=== PATIENT | female | born 1935 | race Caucasian/White ===

== ENCOUNTER 2017-12-27 07:50 | Day surgery (SDC) | payer OTHER, MEDICARE ==
[2017-12-27] MEDS ORDERED: Ringers Lactate 0 ML IV ONE (08:55)
[2017-12-27] MEDS ORDERED: NA CHLORIDE 0.9% 1,000 ML ONE (08:58)
[2017-12-27] MEDS ORDERED: HYDROCORTISONE SUC 100 MG INJ ONE (09:29)
[2017-12-27] MEDS ORDERED: PROPOFOL 200 MG/20 ML VIAL IV ONE (09:45)
[2017-12-27] MEDS ORDERED: LIDOCAINE 1% MPF 5 ML VIAL ONE (09:45)
[2017-12-27 10:06] VITALS: TEMP 98.3
[2017-12-27 10:24] VITALS: BP 98/62; O2SAT 95
--- NOTE | 2017-12-27 11:31 | OP ---
Date of Procedure: 12/27/2017 Surgeon: Gavin Gomez MD Procedure: 1.EGD with biopsy from gastric body and antrum. 2.Administration of anesthesia by Department of Anesthesia. Preoperative Diagnosis: Dysphagia. Premedication: Per Anesthesia. Complexity: Moderate. Tolerance To Sedation: Excellent. Procedure In Detail: Procedure, possible complications, alternatives including, but not limited to t he possibility of bleeding, perforation, tear, infection, sepsis, need for surgery, blood transfusion , hospitalization, etc. explained to the patient. Also anesthesia risk including rare fatalities exp lained. Informed consent was obtained. She was placed in left lateral position. Through the anesth etized oropharyngeal area, scope was passed. Esophageal mucosa in the proximal, mid, and distal aspe ct appeared to be within normal range. EG junction appeared to be normal. No specific stenosis note d in any area. No resistance noted. No changes of eosinophilic esophagitis noted either. No other inflammatory changes noted. In the stomach, mucosa of the fundus and body were normal; however, antral area had moderate degree o f severity, scattered erosions and gastritis, biopsy done. Retroflexion was normal in the fundus. Duodenal bulb, duodenal angle, and duodenal part 2 appeared to be within normal range. Having done the above procedure in a safe, diligent, and satisfactory manner, endoscope and rest of t he endoscopic accessories were removed. The patient's oropharyngeal area cleaned out in a respectful manner. The patient has been sent in excellent condition to postop recovery, from there to the [facility]. Impression: Erosive antral gastritis. No esophageal pathology noted on this endoscopy. Plan: Await biopsy results. We will order barium swallow to rule out motility issues. Complications: None. The patient tolerated the procedure well. Disposition: As above. HAILEY/MODL Voice ID: [id number] Report ID: [id number]
== END 2017-12-27 10:30 | disposition home or self-care (01) ==
LOC: ENDO 07:50
PROVIDERS: ATTEND Internal Medicine Gastroenterology
PROC: 0DB68ZX Excision of Stomach, Via Natural or Artificial Opening Endoscopic, Diagnostic (ICD-10-PCS; principal; 2017-12-27 09:00)
DX: R13.10 Dysphagia, unspecified (principal); K29.60 Other gastritis without bleeding; K21.9 Gastro-esophageal reflux disease without esophagitis; J44.9 Chronic obstructive pulmonary disease, unspecified; I25.10 Atherosclerotic heart disease of native coronary artery without angina pectoris; E11.9 Type 2 diabetes mellitus without complications; I48.91 Unspecified atrial fibrillation; E07.9 Disorder of thyroid, unspecified; Z87.11 Personal history of peptic ulcer disease; Z87.891 Personal history of nicotine dependence; Z95.0 Presence of cardiac pacemaker; Z88.6 Allergy status to analgesic agent; Z88.8 Allergy status to other drugs, medicaments and biological substances
CPT/HCPCS: 43239; 82962; 88305; 88312; J1720; J7030

== ENCOUNTER 2018-02-08 22:26 | Inpatient (IN) | payer OTHER, MEDICARE ==
[2018-02-08] MEDS ORDERED: predniSONE 20 MG TAB ONE (22:37)
[2018-02-08] MEDS ORDERED: ALBUTEROL 2.5 MG/3 ML NEB SOL ONE (22:37)
[2018-02-08] MEDS ORDERED: NA CHLORIDE 0.9% 1,000 ML ONE (22:37)
[2018-02-08] MEDS ORDERED: IPRATROPIUM BROM 0.5MG/2.5ML ONE (22:37)
[2018-02-08] MEDS ORDERED: NITROGLYCERIN 1 GM PKT TD ONE (22:58)
[2018-02-08 23:04] LABS: Arterial Blood Carboxyhemoglob 1.2 % (0-1.5); Blood Gas Oxyhemoglobin 95.1 % (94-97); Blood O2 Saturation 96.9 % (92-98.5)
[2018-02-08 23:08] LABS: Protime INR 1.01
[2018-02-08 23:10] LABS: Absolute Monocytes 0.8 K/uL (0.1-1.3); Absolute Neutrophil 7.8 K/uL (1.8-8.0); Eosinophils % 0.7 % (0-4.4); Lymphocytes % 18.4 % (15.3-44.8); MCH 29.5 pg (27.0-35.0); MPV 10.2 fL (7.6-11.3); Monocytes % 7.2 % (3.3-12.3); RBC Red Blood Cell Count 5.44 M/uL (3.86-4.86)
[2018-02-08 23:15] LABS: Potassium 3.9 mEq/L (3.6-5.0)
[2018-02-08 23:21] LABS: Bilirubin Direct 0.2 mg/dL (0-0.2); Bilirubin Total 0.7 mg/dL (0.3-1.2); Protein, Total 8.1 g/dL (6.0-8.3)
[2018-02-08 23:24] LABS: CKMB Creatine Kinase MB 5.2 ng/ml (0.3-4.0)
[2018-02-08] MEDS ORDERED: ASPIRIN 81 MG CHEWABLE TABLET ONE (23:32)
[2018-02-08] MEDS ORDERED: FUROSEMIDE 20 MG/ 2ML VIAL ONE (23:33)
--- NOTE | 2018-02-08 23:37 | EDPHYS ---
Physician Documentation [facility] Name: Fanny Arceo Age: 82 yrs Sex: Female : 1935 Arrival Date: 02/08/2018 Time: 22:27 Bed 2 Private MD: Sherry Stock R ED Physician Alexi Pearce HPI: 02/08 22:48 This 82 yrs old Female presents to ER via Wheelchair with complaints of snw Breathing Difficulty. 22:48 The patient has shortness of breath at rest. Onset: The symptoms/episode began/occurred snw and became persistent 1 weeks ago. Duration: The symptoms are continuous, and are steadily getting worse. The patient's shortness of breath is aggravated by coughing, supine position. Associated signs and symptoms: Pertinent positives: This patient does not have any pertinent positive signs or symptoms associated with shortness of breath. Severity of symptoms: At their worst the symptoms were severe incapacitating. The patient has experienced similar episodes in the past. The patient has not recently seen a physician, sees Dr. Schmitz, quit smoking in 1989, + COPD. denies fever. States she had an albuterol neb and then a Brovana neb without benefit. Historical: - Allergies: 22:36 Morphine; fc 22:36 Ticlopidine HCl; fc - Home Meds: 22:36 Hyzaar 100-25 mg Oral tab 1 tab once daily [Active]; fc 23:14 Zoloft 50 mg Oral tab 1 tab nightly [Active]; Levemir 100 unit/mL subcutaneous soln 10 fc unit twice a day [Active]; aspirin 325 mg Oral TbEC 1 tab once daily [Active]; Brovana 15 mcg/2 mL inhalation nebu 2 mL 2 times per day [Active]; albuterol sulfate 2.5 mg /3 mL (0.083 %) Nebulizer nebu q 4 hrs prn [Active]; Tricor 145 mg Oral tab 1 tab nightly [Active]; famotidine 40 mg Oral tab 1 tab once daily [Active]; levothyroxine 125 mcg tab 1 tab once daily [Active]; gabapentin 600 mg oral tab 1 tab twice a day [Active]; prednisone 20 mg Oral tab 2 tabs once daily [Active]; Ultram 50 mg Oral tab 1 tab twice a day [Active]; - PMHx: 22:36 COPD; Hypertension; Clot to right arm; fc 22:43 Sleep Apnea; Atrial Fib; CAD; CHF; chronic renal failure; GERD; Diabetes - IDDM; fc Depression; Hypothyroidism; High Cholesterol; Hyperlipidemia; neuropathy; - PSHx: 22:36 Hysterectomy; Cholecystectomy; Appendectomy; pacemaker; Heart stents; fc - Immunization history:: Last tetanus immunization: unknown. - Social history:: Smoking status: Patient/guardian denies using tobacco, the patient reports quitting approximately 19 years ago. ROS: 22:48 Constitutional: Negative for fever, chills, and weight loss, Eyes: Negative for injury, snw pain, redness, and discharge, ENT: Negative for injury, pain, and discharge, Neck: Negative for injury, pain, and swelling, Cardiovascular: Negative for chest pain, palpitations, and edema. 22:48 Abdomen/GI: Negative for abdominal pain, nausea, vomiting, diarrhea, and constipation, Back: Negative for injury and pain, : Negative for injury, bleeding, discharge, and swelling, MS/Extremity: Negative for injury and deformity, Skin: Negative for injury, rash, and discoloration, Neuro: Negative for headache, weakness, numbness, tingling, and seizure. 22:48 Respiratory: Positive for shortness of breath, at rest. Exam: 22:47 Head/Face: Normocephalic, atraumatic. facial flushing Eyes: Pupils equal round and snw reactive to light, extra-ocular motions intact. Lids and lashes normal. Conjunctiva and sclera are non-icteric and not injected. Cornea within normal limits. Periorbital areas with no swelling, redness, or edema. ENT: Nares patent. No nasal discharge, no septal abnormalities noted. Tympanic membranes are normal and external auditory canals are clear. Oropharynx with no redness, swelling, or masses, exudates, or evidence of obstruction, uvula midline. Mucous membranes moist. Neck: Trachea midline, no thyromegaly or masses palpated, and no cervical lymphadenopathy. Supple, full range of motion without nuchal rigidity, or vertebral point tenderness. No Meningismus. Chest/axilla: Normal chest wall appearance and motion. Nontender with no deformity. No lesions are appreciated. Cardiovascular: Regular rate and rhythm with a normal S1 and S2. No gallops, murmurs, or rubs. Normal PMI, no JVD. No pulse deficits. 22:47 Abdomen/GI: Soft, non-tender, with normal bowel sounds. No distension or tympany. No guarding or rebound. No evidence of tenderness throughout. Back: No spinal tenderness. No costovertebral tenderness. Full range of motion. Skin: Warm, dry with normal turgor. Cyanotic color with no rashes, no lesions, and no evidence of cellulitis. MS/ Extremity: Pulses equal, no cyanosis. Neurovascular intact. Full, normal range of motion. Neuro: Awake and alert, GCS 15, oriented to person, place, time, and situation. Cranial nerves II-XII grossly intact. Motor strength 5/5 in all extremities. Sensory grossly intact. Cerebellar exam normal. Normal gait. 22:47 Constitutional: The patient appears awake, anxious, in obvious distress, moderately distressed, restless, uncomfortable. 22:47 Respiratory: moderate respiratory distress is noted, Respirations: prolonged exhalation, shallow respirations, tachypnea, Tripoding. Vital Signs: 22:25 BP 195 / 107; Pulse 66; Resp 22; Temp 97.5(O); Pulse Ox 87% on R/A; Weight 85.73 kg fc (R); Height 5 ft. 6 in. (167.64 cm) (R); Pain 0/10; 22:27 Pulse Ox 100% on 2 lpm NC; fc 23:43 BP 183 / 69; Pulse 74; Resp 20; Pulse Ox 96% on 2 lpm NC; Pain 0/10; ao 02/09 00:50 BP 160 / 74; Pulse 73; Resp 18; Pulse Ox 95% on R/A; Pain 0/10; ao 02/08 22:25 Body Mass Index 30.51 (85.73 kg, 167.64 cm) fc MDM: 02/08 22:47 Patient medically screened. snw 23:35 Data reviewed: vital signs, nurses notes. Counseling: I had a detailed discussion with snw the patient and/or guardian regarding: the historical points, exam findings, and any diagnostic results supporting the discharge/admit diagnosis, the presence of at least one elevated blood pressure reading (>120/80) during this emergency department visit, lab results, radiology results, the need for further work-up and treatment in the hospital. Physician consultation: Roxy Billingsley MD was called at 23:35, was contacted at 23:36, regarding admission, to the telemetry unit. and will see patient in ED. 02/08 22:34 Order name: Basic Metabolic Panel; Complete Time: 23:27 snw 02/08 22:34 Order name: BNP; Complete Time: 23:27 snw 02/08 22:34 Order name: CBC with Diff; Complete Time: 23:23 w 02/08 22:34 Order name: Ckmb; Complete Time: 23:27 w 02/08 22:34 Order name: CPK; Complete Time: 23:27 w 02/08 22:34 Order name: LFT's; Complete Time: 23:27 w 02/08 22:34 Order name: Magnesium; Complete Time: 23:27 w 02/08 22:34 Order name: PT-INR; Complete Time: 23:23 w 02/08 22:34 Order name: Ptt, Activated; Complete Time: 23:23 w 02/08 22:34 Order name: Troponin (emerg Dept Use Only); Complete Time: 23:23 w 02/08 22:34 Order name: XRAY Chest (1 view) 02/08 22:34 Order name: ABG; Complete Time: 23:11 w 02/08 22:34 Order name: EKG; Complete Time: 22:35 w 02/08 22:34 Order name: Cardiac monitoring; Complete Time: 22:42 w 02/08 22:34 Order name: EKG - Nurse/Tech; Complete Time: 22:42 w 02/08 22:34 Order name: IV Saline Lock; Complete Time: 22:42 w 02/08 22:34 Order name: Labs collected and sent; Complete Time: 22:42 w 02/08 22:34 Order name: O2 Per Protocol; Complete Time: 22:42 w 02/08 22:34 Order name: O2 Sat Monitoring; Complete Time: 22:42 snw Administered Medications: 22:37 Drug: Albuterol 2.5 mg Route: Inhalation; ao 22:41 Drug: AtroVENT Aerosol 0.5 mg Route: Inhalation; ao 22:47 Drug: predniSONE 40 mg Route: PO; ao 23:00 Drug: NS 0.9% 1000 ml Route: IV; Rate: 50 ml/hr; Site: left antecubital; ao 23:07 Drug: Nitro-Bid Ointment 2 % 1 inches Route: Transdermal; Site: anterior chest wall; ao 23:38 Drug: Aspirin Chewable Tablet 324 mg Route: PO; ao 23:38 Drug: Lasix 20 mg Route: IVP; Site: left antecubital; ao Disposition: 02/08/18 23:37 Hospitalization ordered by Roxy Billingsley for Inpatient Admission. Preliminary diagnosis are Unspecified systolic (congestive) heart failure, Dyspnea. - Bed requested for Telemetry/MedSurg (Inpatient). - Status is Inpatient Admission. ao - Condition is Stable. - Problem is an acute exacerbation. - Symptoms have worsened. UTI on Admission? No Addendum: 02/12/2018 19:46 Co-signature as Attending Physician, Alexi Pearce MD. g s Signatures: Dispatcher [employer] EDNay Sinha RN RN kl Therrien, Shelly, SEO INTERN-C SEO INTERN-Fanny Murguia RN RN fc Ortiz, Alex, RN RN ao Starr, Gregory, MD MD gs Corrections: (The following items were deleted from the chart) 02/09 00:35 02/08 23:37 Hospitalization Ordered by Roxy Billingsley MD for Inpatient Admission. kl Preliminary diagnosis is Unspecified systolic (congestive) heart failure; Dyspnea. Bed requested for Telemetry/MedSurg (Inpatient). Status is Inpatient Admission. Condition is Stable. Problem is an acute exacerbation. Symptoms have worsened. UTI on Admission? No. snw 02/09 01:34 00:35 02/08/2018 23:37 Hospitalization Ordered by Roxy Billingsley MD for Inpatient ao Admission. Preliminary diagnosis is Unspecified systolic (congestive) heart failure; Dyspnea. Bed requested for Telemetry/MedSurg (Inpatient). Status is Inpatient Admission. Condition is Stable. Problem is an acute exacerbation. Symptoms have worsened. UTI on Admission? No. kl
--- NOTE | 2018-02-08 23:37 | ER ---
Nurse's Notes [facility] Name: Fanny Arceo Age: 82 yrs Sex: Female : 1935 Arrival Date: 02/08/2018 Time: 22:27 Bed 2 Private MD: Sherry Stock R Diagnosis: Unspecified systolic (congestive) heart failure;Dyspnea Presentation: 02/08 22:25 Presenting complaint: Patient states: that she has been having issues with shortness of fc breathe x 1 week that got worse today. Also has cough but no fever. Transition of care: patient was not received from another setting of care. Onset of symptoms was February 02, 2018. Initial Sepsis Screen: Does the patient meet any 2 criteria? Yes Does the patient have a suspected source of infection? Yes: Productive cough/pneumonia. Care prior to arrival: Medication(s) given: Brovona and Albuterol neb treatments. 22:25 Method Of Arrival: Wheelchair fc 22:25 Acuity: JESSE 2 fc Triage Assessment: 22:46 General: Behavior is anxious. Respiratory: Reports shortness of breath Onset: The ao symptoms/episode began/occurred at an unknown time. the patient has severe shortness of breath. Historical: - Allergies: 22:36 Morphine; fc 22:36 Ticlopidine HCl; fc - Home Meds: 22:36 Hyzaar 100-25 mg Oral tab 1 tab once daily [Active]; fc 23:14 Zoloft 50 mg Oral tab 1 tab nightly [Active]; Levemir 100 unit/mL subcutaneous soln 10 fc unit twice a day [Active]; aspirin 325 mg Oral TbEC 1 tab once daily [Active]; Brovana 15 mcg/2 mL inhalation nebu 2 mL 2 times per day [Active]; albuterol sulfate 2.5 mg /3 mL (0.083 %) Nebulizer nebu q 4 hrs prn [Active]; Tricor 145 mg Oral tab 1 tab nightly [Active]; famotidine 40 mg Oral tab 1 tab once daily [Active]; levothyroxine 125 mcg tab 1 tab once daily [Active]; gabapentin 600 mg oral tab 1 tab twice a day [Active]; prednisone 20 mg Oral tab 2 tabs once daily [Active]; Ultram 50 mg Oral tab 1 tab twice a day [Active]; - PMHx: 22:36 COPD; Hypertension; Clot to right arm; fc 22:43 Sleep Apnea; Atrial Fib; CAD; CHF; chronic renal failure; GERD; Diabetes - IDDM; fc Depression; Hypothyroidism; High Cholesterol; Hyperlipidemia; neuropathy; - PSHx: 22:36 Hysterectomy; Cholecystectomy; Appendectomy; pacemaker; Heart stents; fc - Immunization history:: Last tetanus immunization: unknown. - Social history:: Smoking status: Patient/guardian denies using tobacco, the patient reports quitting approximately 19 years ago. Screenin:37 Abuse screen: Denies threats or abuse. Nutritional screening: No deficits noted. fc Tuberculosis screening: No symptoms or risk factors identified. 22:46 Fall Risk None identified. ao Assessment: 22:43 General: Appears distressed. Pain: Complains of pain in chest. Neuro: Level of ao Consciousness is awake, alert, obeys commands, Oriented to person, place, time, situation, Appropriate for age Moves all extremities. Gait is steady, Speech is normal, Facial symmetry appears normal. Cardiovascular: Heart tones S1 S2 Rhythm is irregular. Respiratory: Airway is patent Respiratory effort is labored, Respiratory pattern is hyperventilation Breath sounds with crackles bilaterally. GI: Abdomen is obese. : No signs and/or symptoms were reported regarding the genitourinary system. EENT: No signs and/or symptoms were reported regarding the EENT system. Derm: Skin is intact, Skin is pink, warm \T\ dry. Skin temperature is warm. Musculoskeletal: No signs and/or symptoms reported regarding the musculoskeletal system. Range of motion: limited in all extremities. 23:08 Reassessment: BP is high and MARY Cantu was notified who ordered a nitro paste. ao 23:43 Reassessment: Patient appears in no apparent distress at this time. Patient and/or ao family updated on plan of care and expected duration. Pain level reassessed. Patient is alert, oriented x 3, equal unlabored respirations, skin warm/dry/pink. Patient o be admitted to the hospital. MARY Cantu at bedside. Patient agree with POC. 02/09 00:56 Reassessment: Patient appears in no apparent distress at this time. Patient and/or ao family updated on plan of care and expected duration. Pain level reassessed. Patient is alert, oriented x 3, equal unlabored respirations, skin warm/dry/pink. Patient to be taken to her room after called report. Vital Signs: 02/08 22:25 BP 195 / 107; Pulse 66; Resp 22; Temp 97.5(O); Pulse Ox 87% on R/A; Weight 85.73 kg fc (R); Height 5 ft. 6 in. (167.64 cm) (R); Pain 0/10; 22:27 Pulse Ox 100% on 2 lpm NC; fc 23:43 BP 183 / 69; Pulse 74; Resp 20; Pulse Ox 96% on 2 lpm NC; Pain 0/10; ao 02/09 00:50 BP 160 / 74; Pulse 73; Resp 18; Pulse Ox 95% on R/A; Pain 0/10; ao 02/08 22:25 Body Mass Index 30.51 (85.73 kg, 167.64 cm) ED Course: 02/08 22:25 Arm band placed on Patient placed in an exam room, on a stretcher, on oxygen, on fc cardiac specialist, on pulse oximetry. 22:25 Patient has correct armband on for positive identification. Fall risk band placed. fc Placed in gown. Bed in low position. Call light in reach. Side rails up X 1. float tender on. Pulse ox on. NIBP on. 22:27 Patient arrived in ED. do 22:27 Sherry Stock MD is Private Physician. do 22:27 Oxygen administration via nasal cannula \T\ 2L/min. fc 22:30 Inserted saline lock: 20 gauge in left antecubital area, using aseptic technique. fc ,using aseptic technique. per Bon CONNOR Blood collected. 22:32 Alondra Blakely FNP-C is PHCP. snw 22:32 Alexi Pearce MD is Attending Physician. snw 22:35 Triage completed. fc 22:41 Bon Soni, RN is Primary Nurse. ao 22:45 X-ray completed. Portable x-ray completed in exam room. Patient tolerated procedure bb2 well. 22:47 XRAY Chest (1 view) In Process Unspecified. EDMS 23:36 Roxy Billingsley MD is Hospitalizing Provider. snw 02/09 01:33 No provider procedures requiring assistance completed. Patient admitted, IV remains in ao place. Administered Medications: 02/08 22:37 Drug: Albuterol 2.5 mg Route: Inhalation; ao 22:41 Drug: AtroVENT Aerosol 0.5 mg Route: Inhalation; ao 22:47 Drug: predniSONE 40 mg Route: PO; ao 23:00 Drug: NS 0.9% 1000 ml Route: IV; Rate: 50 ml/hr; Site: left antecubital; ao 23:07 Drug: Nitro-Bid Ointment 2 % 1 inches Route: Transdermal; Site: anterior chest wall; ao 23:38 Drug: Aspirin Chewable Tablet 324 mg Route: PO; ao 23:38 Drug: Lasix 20 mg Route: IVP; Site: left antecubital; ao Outcome: 23:37 Decision to Hospitalize by Provider. snw 02/09 01:33 Admitted to Tele accompanied by tech, room 424, with chart, Report called to NIKOLAS Ramirez ao Condition: stable Instructed on the need for admit. 01:34 Patient left the ED. ao Signatures: Dispatcher [employer] EDMS Alondra Blakely, BLAIR-C ESTIMATION MANAGER-Fanny Murguia RN RN Bon Sesay RN RN ao Charmaine Hickman Brittany bb2 Corrections: (The following items were deleted from the chart) 02/08 22:44 22:25 BP 195 / 107; Pulse 66bpm; Resp 22bpm; Pulse Ox 87% RA; 85.73 kg Reported; Height fc 5 ft. 6 in. Reported; BMI: 30.5; Pain 0/10; fc
[2018-02-09] MEDS ORDERED: HYDRALAZINE HCL 20 MG/ML VIAL IV PRN (00:34)
--- NOTE | 2018-02-09 00:40 | P.HP ---
Certification for Inpatient Patient admitted to: Inpatient With expected LOS: >2 Midnights Practitioner: I am a practitioner with admitting privileges, knowledge of patient current condition, hospital course, and medical plan of care. Services: Services provided to patient in accordance with Admission requirements found in Title 42 Section 412.3 of the Code of Federal Regulations Patient History Date of Service: 02/08/18 Reason for admission: pulmonary edema History of Present Illness: Ms Arceo is an 82 years old woman with multiple medical problems including, DM II , COPD, Chronic diastolic chf, CAD, pacemaker placment, on plan to place LE stent due to PVD, who start about 1 week ago with progressive SOB. She has had dry cough as well. No history of fever or chills, no chest pain either. Tonight , she went to sleep, and her SOB got even worse. At arrival to ED her BP was 195 /107, O2 sat 87% on RA. Lab work remarkable for normal WBC count, elevated trop I 0.17. CXR with bilateral venous congestion. EKG with pacemaker rhythm. Allergies morphine Allergy (Verified 10/08/17 22:37) Hives ticlopidine HCl [From Ticlid] Adverse Reaction (Verified 10/08/17 22:37) Hives/Rash Home Medications: Albuterol Sulfate [Albuterol Sulfate 0.083% Neb Soln] 1 aer IH Q4H PRN 10/08/17 Arformoterol Tartrate [Brovana] 1 aer IH BID 10/08/17 Famotidine 40 mg PO DAILY 10/08/17 Fenofibrate [Tricor*] 145 mg PO BEDTIME 10/08/17 Gabapentin [Neurontin] 600 mg PO BID 10/08/17 Insulin Detemir [Levemir] 10 units SQ BID 10/08/17 Levothyroxine [Synthroid*] 125 mcg PO DAILY 10/08/17 Losartan/Hydrochlorothiazide [Losartan-Hctz 100-25 mg Tab] 1 tab PO DAILY Tramadol HCl [Ultram] 50 mg PO TID 10/08/17 Aspirin [Aspirin EC 325 MG] 325 mg PO DAILY 10/18/17 Prednisone [Prednisone*] 10 mg PO [id number] 10/18/17 Levofloxacin [Levaquin] 250 mg PO DAILY #7 tab 10/20/17 Mupirocin Oint [Bactroban 2% Ointment] 8 appl TOP DAILY #1 tube 10/20/17 - Past Medical/Surgical History Diabetic: Yes -: HTN -: Hyperlipidemia -: Diabetes mellitus type 2 -: COPD -: History of DVT/PE -: History of atrial fibrillation requiring pacemaker -: GERD -: Depression -: Hypothyroidism -: Arthritis -: History of esophageal stricture -: Chronic renal disease -: Cholecystectomy -: Appendectomy -: Hysterectomy -: PANCREATIC SX D/T MASS, no cancer noted -: EYE SX Psychosocial/ Personal History: The patient is a . She has 4 children. - Family History Brother -: Seizures Mother -: Heart disease Father -: Hypertension - Social History Smoking Status: Former smoker Alcohol use: No CD- Drugs: No Caffeine use: Yes Place of Residence: Home Review of Systems 10-point ROS is otherwise unremarkable Physical Examination - Physical Exam General: Alert, In no apparent distress HEENT: Atraumatic, PERRLA, Mucous membr. moist/pink, EOMI, Sclerae nonicteric Neck: Supple, 2+ carotid pulse no bruit, No LAD, Without JVD or thyroid abnormality Respiratory: Diminished, Crackles/rales (bibasilar rales) Cardiovascular: Regular rate/rhythm, Normal S1 S2 Gastrointestinal: Normal bowel sounds, No tenderness Musculoskeletal: No tenderness Integumentary: No rashes Neurological: Normal speech, Normal strength at 5/5 x4 extr, Normal tone, Normal affect Lymphatics: No axilla or inguinal lymphadenopathy - Studies Laboratory Data (last 24 hrs) 02/08/18 22:39: PT 11.9, INR 1.01, APTT 25.0 02/08/18 22:39: WBC 10.8, Hgb 16.1 H, Hct 50.0 H, Plt Count 262 02/08/18 22:39: B-Natriuretic Peptide 875 H 02/08/18 22:39: Sodium 143, Potassium 3.9, BUN 30 H, Creatinine 1.11 H, Glucose 176 H, Magnesium 2.0, Total Bilirubin 0.7, AST 35, ALT 27, Alkaline Phosphatase 45 Assessment and Plan - Problems (Diagnosis) (1) Acute on chronic diastolic CHF (congestive heart failure) Current Visit: Yes Status: Acute (2) Chronic renal disease Onset Date: 10/19/17 Current Visit: No Status: Acute Qualifiers: Chronic kidney disease stage: stage 3 (moderate) Qualified Code(s): N18.3 - Chronic kidney disease, stage 3 (moderate) (3) Type 2 diabetes mellitus without complications Onset Date: 10/11/17 Current Visit: No Status: Acute Qualifiers: Diabetes mellitus senior living insulin use: with senior living use Qualified Code( s): E11.9 - Type 2 diabetes mellitus without complications; 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 transplanted heart: [place] heart Associated angina: without angina Qualified Code(s): I25.10 - Atherosclerotic heart disease of [place] coronary artery without angina pectoris (5) Pulmonary edema Current Visit: Yes Status: Acute Qualifiers: Chronicity: acute Qualified Code(s): J81.0 - Acute pulmonary edema - Plan The patient will be admitted to the hospital due to pulmonary edema. Her blood pressure at arrival was 197/105. After IV Lasix and nitropaste, her blood pressure decreased and her symptoms improved. She has a recent ECHO done in showing diastolic dysfunction. Will continue with diuretics treatment, resume her blood pressure medication. Consult Dr Jin. - Advance Directives Does patient have a Living Will: Yes Does patient have a Durable POA for Healthcare: Yes - Code Status/Comfort Care Code Status Assessed: Yes Code Status: Full Code
[2018-02-09] MEDS ORDERED: FUROSEMIDE 40 MG/4 ML VIAL IV ONE (01:54)
[2018-02-09] MEDS ORDERED: ONDANSETRON 4 MG/2 ML VIAL IV PRN (01:54)
[2018-02-09 03:34] LABS: Urine Appearance CLEAR; Urine Bilirubin NEGATIVE (NEG); Urine Blood NEGATIVE (NEG); Urine Color YELLOW; Urine Glucose NEGATIVE (NEG); Urine Protein NEGATIVE (NEG); Urine Urobilinogen 0.2 mg/dL (0.2-1.0)
[2018-02-09 03:35] LABS: Urine Microscopic Reflex NO UMIC
[2018-02-09] MEDS: ACETAMINOPHEN 500 MG TAB PO PRN (07:25)
[2018-02-09] MEDS: INSULIN -REGULAR HUMAN 50 UNIT/0.5 ML ML SQ SCH ×4 (07:30→21:00)
--- NOTE | 2018-02-09 07:42 | EKG ---
Test Date: 2018-02-08 Test Time: 22:35:10 Lead Mobile Developer: MEASUREMENT RESULTS: Intervals: Rate: 75 IA: 384 QRSD: 122 QT: 386 QTc: 431 Cameron: P: IA: 384 QRS: -81 T: 93 INTERPRETIVE STATEMENTS: Rhythm consistent with VVI pacing with frequent premature ventricular complexes Underlying atrial rhythm is fibrillation Abnormal ECG Compared to ECG 10/18/2017 15:16:51 no significant change from previous ECG Electronically Signed On 02-09-18 07:42:11 CDT by Emir Armstrong
[2018-02-09] MEDS ORDERED: ENOXAPARIN 40 MG/0.4 ML SQ SCH (09:00)
--- NOTE | 2018-02-09 09:42 | RAD REPORT ---
EXAM DESCRIPTION: [facility] Single View02/08/2018 10:49 pm CLINICAL HISTORY: sob COMPARISON: October 2017 FINDINGS: Mild bilateral interstitial opacities are present within the lungs. The heart is mildly e nlarged. Pacemaker leads are in place. IMPRESSION: Mild interstitial pulmonary edema is suspected
[2018-02-09] MEDS ORDERED: ALBUTEROL 2.5 MG/3 ML NEB SOL IH PRN (09:53)
[2018-02-09] MEDS: TRAMADOL HCL 50 MG TAB PO SCH ×4 (10:56→21:47)
[2018-02-09] MEDS: LOSARTAN/HCTZ 50-12.5 PO SCH (11:26)
[2018-02-09] MEDS: FUROSEMIDE 40 MG/4 ML VIAL IV SCH ×2 (11:26→17:39)
[2018-02-09] MEDS: SERTRALINE HCL 50 MG TAB PO SCH (11:27)
[2018-02-09] MEDS: FAMOTIDINE 20 MG TAB PO SCH (11:27)
[2018-02-09] MEDS: GABAPENTIN 300 MG CAP PO SCH ×2 (11:27→21:47)
[2018-02-09] MEDS: ASPIRIN 325 MG TAB PO SCH (11:28)
[2018-02-09] MEDS: predniSONE 10 MG TAB PO SCH (11:28)
[2018-02-09] MEDS ORDERED: POTASSIUM CL SA 10 MEQ TAB PO ONE (12:00)
[2018-02-09] MEDS: ARFORMOTEROL TARTRATE 15 MCG/2 ML VIAL.NEB IH SCH ×2 (12:01→20:00)
[2018-02-09] MEDS: INSULIN DETEMIR 100 UNIT/1 ML INSULIN SQ SCH ×2 (12:10→21:47)
--- NOTE | 2018-02-09 13:56 | CON ---
Chief Complaint: Shortness of breath. History Of Present Illness: For several weeks, Mrs. Arceo has been getting progressively more short o f breath, minimal walking makes her become extremely dyspneic. There is some chest pain too. There does not seem to be much orthopnea. No paroxysmal nocturnal dyspnea. She was not really aware that she was having pain until she thought about it when I asked her, and then she seemed to think sometim es when she is short of breath, there is also tightness or pressure. She has had coronary heart dise ase in the past. She has had stents in the LAD and right coronary artery. Her last cardiac cath was about 2 years ago and the stents were patent. She has heart failure with normal ejection fraction a nd severe COPD. She was a heavy cigarette smoker, but quit in about the year 1999. She has a pacema ker and is in chronic atrial fibrillation without anticoagulation. The pacemaker is biventricular pa cing, but VVI only, there is no atrial lead. Medications: Outpatient medications have been fenofibrate, Proventil, losartan, hydrochlorothiazide, levothyroxine, famotidine, insulin, gabapentin, tramadol, albuterol, prednisone, sertraline, and asp irin. She is not a candidate for chronic anticoagulation according to Dr. Jin, who sees her, but I lupe ot really find exactly what problem she had taking anticoagulants in the past. No history of stroke. Physical Examination: General: She is 5 feet 6 inches, 191 pounds. HEENT: Normal, although there is mild acrocyanosis. Abdomen: Soft. Lungs: Reveal basilar crackles. Heart: Irregularly irregular. There seems to be a systolic murmur. It is 1 to 2/6 holosystolic. Abdomen: Soft. Extremities: 2 to 3+ edema. There are cyanosis, diminished distal pulses. Laboratory Data: The EKG reveals mostly paced but there is some [place] complexes as well. On the na tive complexes, they appear to be PVCs rather than narrow complex conducted or she may have a very wi de IVCD that is nonsignificant, but I think the PVCs is uninterpretable for ischemia or infarction. Her cardiac enzymes are abnormal with the highest troponin at 0.28. She has a creatinine of 1.11, bl ood sugar 176. Impression: Mrs. Arceo needs to try to improve lung function, get some diuresis, and then undergo a c ardiac cath. I suspect she will need another stent into her heart. Thank you very much for your kind referral of Mrs Arceo. I will follow her with you. BRNADON Voice ID: [id number] Report ID: [id number]
--- NOTE | 2018-02-09 15:14 | PN ---
Date of Progress Note: 02/09/2018 Subjective: The patient seen and examined. Chart reviewed, and case discussed with RN and Dr. Torri guerrero. The patient states her chest pain has resolved, but still has shortness of breath. Review of Systems: Negative except as above. Medications: Reviewed. Physical Examination: Vital Signs: Temperature 97.2, heart rate 68, blood pressure 197/87, respirations 18, O2 of 96% on 2 L via nasal cannula. General: Awake, alert, oriented x3. Elderly female, obese, BMI 31. CV: S1, S2. Regular rate and rhythm. Peripheral pulses weak bilaterally. Respiratory: Diminished breath sounds. Some crackles heard. No wheezing. No stridor. No use of a ccessory muscles. Gastrointestinal: Abdomen is soft, nontender, nondistended. Positive bowel sounds. No guarding or rigidity. Extremities: No clubbing, cyanosis, 2+ edema. Neurologic: Nonfocal. Laboratory Data: Potassium 3.6, glucose 164. Troponin 0.17, 0.28, 0.36. BNP 875. Assessment And Plan: An 82-year-old female with: 1.Kcabd-rq-qbpzrrd diastolic heart failure: We will continue with diuresis. Continue congestive he art failure guidelines. Appreciate Dr. Armstrong' input. 2.Elevated troponin level: Jnc-SP-krbnawlcg myocardial infarction. The patient going for cardiac c atheterization on Sunday. We will switch to therapeutic Lovenox 1 mg/kg renally dosed. 3.Chronic kidney disease, stage 3: We will monitor creatinine. Currently around baseline. 4.Pulmonary edema: Continue Lasix secondary to congestive heart failure. 5.Coronary artery disease: [place] artery and [place] heart with angina, status post stent x2. 6.Type 2 diabetes mellitus, with hyperglycemia, with long-term use of insulin: We will continue sli ding scale. 7.History of deep vein thrombosis, pulmonary embolism. 8.History of atrial fibrillation, requiring pacemaker. 9.Gastroesophageal reflux disease without esophagitis. Proton-pump inhibitor. 10.Major depressive disorder. 11.Hypothyroidism: We will continue levothyroxine. 12.Generalized osteoarthritis. 13.History of esophageal stricture. Plan: Anticipate cardiac catheterization on Sunday. SA/MODL Voice ID: [id number] Report ID: [id number]
--- NOTE | 2018-02-09 17:30 | RAD REPORT ---
EXAM DESCRIPTION: RAD - Tib Fib Right - 02/09/2018 5:11 pm CLINICAL HISTORY: Right leg pain FINDINGS: No fracture is seen. No bony lesion is noted
--- NOTE | 2018-02-09 17:32 | RAD REPORT ---
EXAM DESCRIPTION: RAD - Foot Right 2 View - 02/09/2018 5:11 pm CLINICAL HISTORY: Right foot pain FINDINGS: Large calcaneal spurs are present. No fracture or dislocation is seen
[2018-02-09] MEDS ORDERED: CYCLOBENZAPRINE 10 MG TAB PO ONE (18:00)
--- NOTE | 2018-02-09 20:11 | RAD REPORT ---
EXAM DESCRIPTION: [facility]02/09/2018 7:36 pm CLINICAL HISTORY: Right leg pain and swelling. COMPARISON: October 2017 FINDINGS: Right common femoral, superficial femoral, popliteal and right posterior tibial veins are compressible and demonstrate augmentation. Doppler demonstrates good flow. IMPRESSION: No evidence of deep venous thrombosis involving the right lower extremity.
[2018-02-09] MEDS ORDERED: HOME MED 1 EA UNK (Gabapentin [Neurontin] 600 MG) PO SCH (21:00)
[2018-02-09] MEDS ORDERED: GABAPENTIN 300 MG CAP PO SCH (21:00)
[2018-02-09] MEDS ORDERED: HOME MED 1 EA UNK (Insulin Detemir [Levemir] 10 UNITS) SQ SCH (21:00)
[2018-02-09] MEDS: FENOFIBRATE 160 MG TAB PO SCH (21:46)
[2018-02-09] MEDS: ENOXAPARIN 100 MG/ML SYR SQ SCH (21:46)
[2018-02-10] MEDS: predniSONE 10 MG TAB PO SCH (05:18)
[2018-02-10] MEDS: LEVOTHYROXINE SOD 0.125 MG TAB PO SCH (05:18)
[2018-02-10 05:24] LABS: Absolute Lymphocytes (CBC) 2.5 K/uL (0.7-4.9); Absolute Monocytes 0.9 K/uL (0.1-1.3); Absolute Neutrophil 7.5 K/uL (1.8-8.0); Basophils % 0.7 % (0-1.3); Eosinophils % 1.6 % (0-4.4); Hematocrit 49.2 % (36.0-45.0); Lymphocytes % 22.3 % (15.3-44.8); MCH 29.2 pg (27.0-35.0); MCV 91.1 fL (80-100); MPV 10.1 fL (7.6-11.3); Monocytes % 8.2 % (3.3-12.3)
[2018-02-10] MEDS: ACETAMINOPHEN 500 MG TAB PO PRN (05:28)
[2018-02-10 05:56] LABS: Potassium 3.3 mEq/L (3.6-5.0)
[2018-02-10] MEDS ORDERED: predniSONE 10 MG TAB PO SCH (06:00)
[2018-02-10] MEDS ORDERED: POTASSIUM 25 MEQ EFFERV TAB PO ONE ×2 (06:30→15:00)
[2018-02-10] MEDS: INSULIN -REGULAR HUMAN 50 UNIT/0.5 ML ML SQ SCH ×4 (07:30→21:00)
[2018-02-10] MEDS ORDERED: HOME MED 1 EA UNK (Losartan/Hydrochlorothiazide [Losartan-Hctz 100-25 Mg Tab] 1 TAB) PO SCH (09:00)
[2018-02-10] MEDS ORDERED: LEVOTHYROXINE SOD 0.125 MG TAB PO SCH (09:00)
[2018-02-10] MEDS ORDERED: HOME MED 1 EA UNK (Famotidine [Famotidine] 40 MG) PO SCH (09:00)
[2018-02-10] MEDS: ARFORMOTEROL TARTRATE 15 MCG/2 ML VIAL.NEB IH SCH ×2 (09:03→19:44)
[2018-02-10] MEDS: INSULIN DETEMIR 100 UNIT/1 ML INSULIN SQ SCH ×2 (09:07→21:25)
[2018-02-10] MEDS: FAMOTIDINE 20 MG TAB PO SCH (09:08)
[2018-02-10] MEDS: LOSARTAN/HCTZ 50-12.5 PO SCH (09:08)
[2018-02-10] MEDS: GABAPENTIN 300 MG CAP PO SCH ×2 (09:09→21:22)
[2018-02-10] MEDS: FUROSEMIDE 40 MG/4 ML VIAL IV SCH (09:09)
[2018-02-10] MEDS: ASPIRIN 325 MG TAB PO SCH (09:09)
[2018-02-10] MEDS: TRAMADOL HCL 50 MG TAB PO SCH ×3 (09:09→21:22)
[2018-02-10] MEDS: SERTRALINE HCL 50 MG TAB PO SCH (09:10)
[2018-02-10] MEDS: ENOXAPARIN 100 MG/ML SYR SQ SCH (09:10)
[2018-02-10] MEDS: ACETYLCYST 20% 800 MG/4 ML VIAL PO SCH ×2 (12:34→21:00)
[2018-02-10] MEDS: CYCLOBENZAPRINE 10 MG TAB PO SCH ×2 (13:27→21:22)
--- NOTE | 2018-02-10 14:37 | PN ---
Date of Progress Note: 02/10/2018 History: The patient seen and examined, chart reviewed, and case discussed with RN. The patient states she feels better. Did have some lower extremity pain, which was acute. She felt that this was muscle pain. Review of Systems: Negative except as above. Medications: Reviewed. Physical Examination: Vital Signs: Temperature 97.9, heart rate 72, blood pressure 153/84, respirations 18, O2 99% on 2 L via nasal cannula. General: Awake, alert, oriented x3. Elderly female is somewhat ill-appearing, obese, BMI of 30. CV: S1, S2. Peripheral pulses present bilaterally. Respiratory: Diminished breath sounds. Some crackles. No wheezing. Gastrointestinal: Abdomen soft, nontender, nondistended. Positive bowel sounds. Extremities: No clubbing, cyanosis. Mild pedal edema. Neurologic: Nonfocal. Laboratory Data: Sodium 142, potassium 3.3, chloride 97, CO2 36, BUN 34, creatinine 1.31, glucose 66, calcium 10.1. WBC 11.2, H and H 15.8, 49.2, platelets 245. Assessment: An 82-year-old female with: 1. Acute on chronic diastolic heart failure. We will continue with diuresis. Monitor I's and O's. Continue congestive heart failure guidelines. Cardiology on board. 2. Elevated troponin level. Cardiac catheterization scheduled for Sunday. Continue chest pain guidelines and Lovenox. 3. Chronic kidney disease, stage 3. We will continue to monitor creatinine, currently at baseline. 4. Pulmonary edema secondary to congestive heart failure, improving. 5. Coronary artery disease, [place] artery and [place] heart, with angina, status post stent x2. 6. Diabetes mellitus type 2 with hyperglycemia with long-term use of insulin. 7. History of deep vein thrombosis, pulmonary embolism. Repeat sonogram shows no deep vein thrombosis. 8. History of atrial fibrillation status post pacemaker. 9. Major depressive disorder, SSRI. 10. Hypothyroidism, on levothyroxine. 11. Gastroesophageal reflux disease without esophagitis, PPI. 12. Generalized osteoarthritis. 13. History of esophageal stricture. Plan: As above. /MODChaka Voice ID: [id number] Report ID: [id number] [facility]
[2018-02-10] MEDS ORDERED: D50W 25 GM/50 ML SYRINGE IV PRN (17:05)
[2018-02-10] MEDS ORDERED: GLUCAGON 1 MG/VIAL IM PRN (17:05)
[2018-02-10] MEDS: FENOFIBRATE 160 MG TAB PO SCH (21:22)
[2018-02-11 06:12] VITALS: BMI 30.2
[2018-02-11] MEDS: LOSARTAN/HCTZ 50-12.5 PO SCH (06:13)
[2018-02-11] MEDS: ACETYLCYST 20% 800 MG/4 ML VIAL PO SCH (06:13)
[2018-02-11] MEDS: LEVOTHYROXINE SOD 0.125 MG TAB PO SCH (06:14)
[2018-02-11] MEDS: predniSONE 10 MG TAB PO SCH (06:14)
[2018-02-11] MEDS: ASPIRIN 325 MG TAB PO SCH (06:14)
[2018-02-11] MEDS ORDERED: ATROPINE SULF 1 MG/10 ML SYR IV ONE ×2 (06:15→07:05)
[2018-02-11] MEDS ORDERED: NA CHLORIDE 0.9% 0 ML ONE ×2 (06:15→07:05)
[2018-02-11] MEDS ORDERED: NA CHLORIDE 0.9% 500 ML ONE (06:15)
[2018-02-11] MEDS ORDERED: LIDOCAINE 1% 20 ML MDV ONE (06:15)
[2018-02-11 06:32] LABS: Albumin 3.8 g/dL (3.2-5.5); Bilirubin Total 0.8 mg/dL (0.3-1.2); Potassium 3.8 mEq/L (3.6-5.0); Protein, Total 7.6 g/dL (6.0-8.3)
[2018-02-11 06:33] LABS: Absolute Lymphocytes (CBC) 2.9 K/uL (0.7-4.9); Absolute Monocytes 0.9 K/uL (0.1-1.3); Absolute Neutrophil 6.3 K/uL (1.8-8.0); Eosinophils % 2.8 % (0-4.4); Lymphocytes % 27.3 % (15.3-44.8); MCH 29.4 pg (27.0-35.0); MCV 92.1 fL (80-100); MPV 9.7 fL (7.6-11.3); Monocytes % 8.7 % (3.3-12.3); RBC Red Blood Cell Count 5.86 M/uL (3.86-4.86)
[2018-02-11] MEDS ORDERED: MIDAZOLAM HCL 2 MG/2 ML INJ ONE (07:04)
[2018-02-11] MEDS ORDERED: FENTANYL CITR 100 MCG/2 ML ONE (07:04)
[2018-02-11] MEDS ORDERED: D50W 25 GM/50 ML SYRINGE IV ONE (07:06)
[2018-02-11] MEDS: INSULIN -REGULAR HUMAN 50 UNIT/0.5 ML ML SQ SCH (07:30)
[2018-02-11] MEDS: ARFORMOTEROL TARTRATE 15 MCG/2 ML VIAL.NEB IH SCH (08:40)
[2018-02-11] MEDS ORDERED: ACETAMINOPHEN 325 MG TABLET PO PRN (08:52)
[2018-02-11] MEDS ORDERED: NITROGLYCERIN 0.4 MG/TAB SL PRN (09:00)
[2018-02-11] MEDS ORDERED: NA CHLORIDE 0.9% 1,000 ML IV SCH ×2 (09:00)
[2018-02-11 09:06] VITALS: BP 113/62; TEMP 97.1
[2018-02-11 09:48] VITALS: O2SAT 95
[2018-02-11] MEDS: GABAPENTIN 300 MG CAP PO SCH (10:51)
[2018-02-11] MEDS: TRAMADOL HCL 50 MG TAB PO SCH (10:52)
[2018-02-11] MEDS: SERTRALINE HCL 50 MG TAB PO SCH (10:52)
[2018-02-11] MEDS: FAMOTIDINE 20 MG TAB PO SCH (10:53)
[2018-02-11] MEDS: CYCLOBENZAPRINE 10 MG TAB PO SCH (10:53)
[2018-02-11] MEDS: INSULIN DETEMIR 100 UNIT/1 ML INSULIN SQ SCH (10:56)
[2018-02-11] MEDS ORDERED: POTASSIUM 25 MEQ EFFERV TAB PO ONE (13:00)
--- NOTE | 2018-02-11 18:48 | P.DS ---
Admission Date: 02/08/18 Discharge Date: 02/11/18 Disposition: ROUTINE DISCHARGE Discharge Condition: GOOD Reason for Admission: pulmonary edema - Problems (1) Acute congestive heart failure Status: Acute Qualifiers: Heart failure type: diastolic Qualified Code(s): I50.31 - Acute diastolic ( congestive) heart failure (2) Chronic renal disease Onset Date: 10/19/17 Status: Acute Qualifiers: Chronic kidney disease stage: stage 3 (moderate) Qualified Code(s): N18.3 - Chronic kidney disease, stage 3 (moderate) (3) Depression with anxiety Onset Date: 10/11/17 Status: Chronic (4) Essential (primary) hypertension Onset Date: 10/11/17 Status: Chronic (5) Gastro-esophageal reflux disease without esophagitis Onset Date: 10/11/17 Status: Chronic (6) Pulmonary edema Status: Acute Qualifiers: Chronicity: acute Qualified Code(s): J81.0 - Acute pulmonary edema (7) Type 2 diabetes mellitus without complications Onset Date: 10/11/17 Status: Chronic Qualifiers: Diabetes mellitus terminal worker insulin use: with residential use Qualified Code( s): E11.9 - Type 2 diabetes mellitus without complications; Z79.4 - terminal block assembler ( current) use of insulin (8) CAD (coronary artery disease) Onset Date: 10/19/17 Status: Chronic Qualifiers: Coronary Disease-Associated Artery/Lesion type: [place] artery [place] vs. transplanted heart: [place] heart Associated angina: without angina Qualified Code(s): I25.10 - Atherosclerotic heart disease of [place] coronary artery without angina pectoris (9) COPD (chronic obstructive pulmonary disease) Onset Date: 10/11/17 Status: Chronic Qualifiers: COPD type: chronic bronchitis (10) Hypertriglyceridemia Onset Date: 10/11/17 Status: Chronic (11) Hypothyroidism Onset Date: 10/11/17 Status: Chronic Qualifiers: Hypothyroidism type: acquired Qualified Code(s): E03.9 - Hypothyroidism, unspecified (12) Obstructive sleep apnea Onset Date: 10/19/17 Status: Chronic Brief History of Present Illness: See HPI Hospital Course: Initially during the hospitalization patient remained stable The patient was initially admitted to the hospital for dyspnea most likely secondary to acute on chronic diastolic failure. Patient was started on IV Lasix improved markedly and was continued on congestive heart findings here in the hospital. Cardiology was consulted who recommended patient have a cardiac catheterization done here in the hospital due to elevated troponins. Patient had cardiac catheterization done here in the hospital which was within normal limits without needing any intervention. At which cardiology recommended the patient have medical management and for her CAD. Patient also has chronic kidney disease here in the hospital which remained at baseline while here in the hospital. All other chronic conditions remained stable while here in the hospital Vital Signs/Physical Exam: Temp Pulse Resp BP Pulse Ox 97.1 F 64 18 113/62 100 02/11/18 09:04 02/11/18 09:04 02/11/18 09:04 02/11/18 09:04 02/11/18 09:04 General: Alert, In no apparent distress, Oriented x3 HEENT: Atraumatic, PERRLA, EOMI Neck: Supple, JVD not distended Respiratory: Clear to auscultation bilaterally, Normal air movement Cardiovascular: Regular rate/rhythm, Normal S1 S2 Gastrointestinal: Normal bowel sounds, No tenderness Musculoskeletal: No tenderness Integumentary: No rashes Neurological: Normal speech, Normal tone, Normal affect Lymphatics: No axilla or inguinal lymphadenopathy Laboratory Data at Discharge: WBC 10.5 K/uL (4.3-10.9) 02/11/18 06:10 Hgb 17.3 g/dL (12.0-15.0) H 02/11/18 06:10 Hct 54.0 % (36.0-45.0) H 02/11/18 06:10 Plt Count 279 K/uL (152-406) 02/11/18 06:10 PT 11.9 SECONDS (9.5-12.5) 02/08/18 22:39 INR 1.01 02/08/18 22:39 APTT 25.0 SECONDS (24.3-36.9) 02/08/18 22:39 Sodium 141 mEq/L (135-145) 02/11/18 06:10 Potassium 3.8 mEq/L (3.6-5.0) 02/11/18 06:10 BUN 40 mg/dL (6-20) H 02/11/18 06:10 Creatinine 1.28 mg/dL (0.44-1.00) H 02/11/18 06:10 Glucose 66 mg/dL (65-120) 02/11/18 06:10 Magnesium 2.0 mg/dL (1.8-2.5) 02/11/18 06:10 Total Bilirubin 0.8 mg/dL (0.3-1.2) 02/11/18 06:10 AST 32 IU/L (10-42) 02/11/18 06:10 ALT 21 IU/L (10-60) 02/11/18 06:10 Alkaline Phosphatase 41 IU/L (42-121) L 02/11/18 06:10 Troponin I 0.36 ng/mL (<0.03) H 02/09/18 09:30 B-Natriuretic Peptide 875 pg/ml (<=100) H 02/08/18 22:39 Triglycerides 107 mg/dL (35-160) 02/10/18 04:34 Cholesterol 184 mg/dL (<200) 02/10/18 04:34 HDL Cholesterol 62 mg/dL (29-89) 02/10/18 04:34 Cholesterol/HDL Ratio 2.97 02/10/18 04:34 Home Medications: Albuterol Sulfate [Albuterol Sulfate 0.083% Neb Soln] 1 aer IH Q6HP PRN Arformoterol Tartrate [Brovana] 1 aer IH BID 10/08/17 Famotidine 40 mg PO DAILY 10/08/17 Fenofibrate [Tricor*] 145 mg PO BEDTIME 10/08/17 Gabapentin [Neurontin] 600 mg PO BID 10/08/17 Insulin Detemir [Levemir] 10 units SQ BID 10/08/17 Levothyroxine [Synthroid*] 125 mcg PO DAILY 10/08/17 Losartan/Hydrochlorothiazide [Losartan-Hctz 100-25 mg Tab] 1 tab PO DAILY Tramadol HCl [Ultram] 50 mg PO TID 10/08/17 Prednisone [Prednisone*] 10 mg PO [id number] 10/18/17 Aspirin 325 mg PO DAILY 02/09/18 Sertraline [Zoloft*] 50 mg PO DAILY 02/09/18 Patient Discharge Instructions: Please f/u with PCP and Dr Jin in 1 to 2 week post discharge. -You had Cardiac Catherization and we will encourge you to have Fluid intake to avoid kidney injury. Continue taking all the medication as prescribed. Diet: Regular Activity: Ad reshma Followup: Amadeo Jin MD [ACTIVE - CAN ADMIT] - (call to schedule appointment) Luis Eduardo Stock MD [Primary Care Provider] - (call to schedule appointment)
--- NOTE | 2018-02-13 06:58 | OP ---
Surgeon: Amadeo Jin MD Indication: The patient had been admitted to the hospital as an inpatient with congestive heart fail ure, elevated troponin, scheduled as an outpatient for a heart catheterization. Procedure In Detail: She was brought to the laborer chees[facility] as an inpatient. She was prepped and draped in the routine sterile fashion, given 2 mg of Versed for IV sedation. The procedure that was done was left heart catheterization, selective coronary artery. A 6-[place] sheath was introduced in the right common femoral artery. StarClose was used to close the case. I had some difficulty advancing the w michael over the right common iliac region but the wire did go through. She was actually scheduled to mustafa ve an abdominal angiograms runoff sometime this week because of peripheral vascular disease. This wa s to be delayed because of the catheterization but I did not like to give her excess dye. A 6-[place]az[place] catheter was used to cannulate the coronary artery. She had a normal RCA and circumflex. She has h ad an old LAD stent that was patent. She had some distal LAD disease that is not significant. The p atient tolerated the procedure well. There were no complications. Blood Loss: 5 cc. Final Diagnosis: Coronary artery disease. Plan is for medical therapy. Total conscious sedation wa s 30 minutes. Impression And Plan: Coronary artery disease. Patent LAD stent. Plan to continue therapy. She can go home today and follow up with me in the office in the next week or 2. I discussed the case with the family and we will try to do the abdominal angiogram with runoff in the next few days. NADIYA/ESTEFANIA Voice ID: [id number] Report ID: [id number]
== END 2018-02-11 11:34 | disposition home or self-care (01) | DRG 286 ==
LOC: ER 22:26 → ERHOLD 23:38 → 4TH 02-09 00:59
PROVIDERS: ADMIT Internal Medicine; ATTEND Family Medicine
PROC: B201YZZ Plain Radiography of Multiple Coronary Arteries using Other Contrast (ICD-10-PCS; principal; 2018-02-11)
DX: I13.0 Hypertensive heart and chronic kidney disease with heart failure and stage 1 through stage 4 chronic kidney disease, or unspecified chronic kidney disease (principal); I50.33 Acute on chronic diastolic (congestive) heart failure; E11.9 Type 2 diabetes mellitus without complications; J44.9 Chronic obstructive pulmonary disease, unspecified; I10 Essential (primary) hypertension; E78.5 Hyperlipidemia, unspecified; K21.9 Gastro-esophageal reflux disease without esophagitis; E03.9 Hypothyroidism, unspecified; E11.22 Type 2 diabetes mellitus with diabetic chronic kidney disease; N18.3 Chronic kidney disease, stage 3 (moderate); I25.10 Atherosclerotic heart disease of native coronary artery without angina pectoris; E11.65 Type 2 diabetes mellitus with hyperglycemia; F32.9 Major depressive disorder, single episode, unspecified; G47.33 Obstructive sleep apnea (adult) (pediatric); M15.9 Polyosteoarthritis, unspecified; Z86.718 Personal history of other venous thrombosis and embolism; Z86.711 Personal history of pulmonary embolism; Z87.891 Personal history of nicotine dependence; Z95.0 Presence of cardiac pacemaker; E78.1 Pure hyperglyceridemia
CPT/HCPCS: 36415; 71045; 80048; 80053; 80061; 80076; 81003; 82550; 82553; 82805; 82962; 83735; 83880; 84132; 84484; 85025; 85610; 85730; 93005; 93454; 93971; 94640; 94760; 96374; 99285; C1893; J0360; J0583; J1650; J1940; J2250; J3010; J7030; J7512; J7605

== ENCOUNTER 2018-02-21 06:12 | Day surgery (SDC) | payer OTHER, MEDICARE ==
[2018-02-20 14:01] LABS: Absolute Lymphocytes (CBC) 0.7 K/uL (0.7-4.9); Absolute Monocytes 0.3 K/uL (0.1-1.3); Absolute Neutrophil 9.8 K/uL (1.8-8.0); Basophils % 0.6 % (0-1.3); Eosinophils % 0.5 % (0-4.4); Hematocrit 53.2 % (36.0-45.0); Lymphocytes % 6.1 % (15.3-44.8); MCV 90.7 fL (80-100); MPV 10.2 fL (7.6-11.3); Monocytes % 2.8 % (3.3-12.3); RBC Red Blood Cell Count 5.87 M/uL (3.86-4.86)
[2018-02-20 14:10] LABS: Protime INR 1.01
[2018-02-20 14:13] LABS: Potassium 4.1 mEq/L (3.6-5.0)
[2018-02-21] MEDS ORDERED: NA CHLORIDE 0.9% 500 ML ONE (06:32)
[2018-02-21] MEDS ORDERED: MIDAZOLAM HCL 2 MG/2 ML INJ ONE ×2 (07:28→08:13)
[2018-02-21] MEDS ORDERED: FENTANYL CITR 100 MCG/2 ML ONE ×2 (07:28→08:13)
[2018-02-21] MEDS ORDERED: LIDOCAINE 1% 20 ML MDV ONE (07:38)
[2018-02-21 10:56] VITALS: BP 113/77; TEMP 98.4; O2SAT 96
--- NOTE | 2018-02-22 05:19 | OP ---
Surgeon: Amadeo Jin MD Tip Banding Machine Operator: Dona Acevedo. Indications: Admitted as an outpatient for an abdominal angiogram with runoff. Ms. Arceo is 82, has had a history of coronary artery disease, status post LAD stent. Recent episode in the hospital with chest pain with heart catheterization documented a patent LAD stent with minimal diffuse plaquing th roughout. She also is known to have severe claudication in the left leg with abnormal arterial Doppl er bilaterally. Description Of Procedure: She was brought to the catheterization lab as an outpatient. She was prep ped and draped in the routine sterile fashion, given 2 mg of Versed for IV sedation. Right common fe moral artery was accessed with a 6-[place] sheath. StarClose was used to close the case. A pigtail c atheter was advanced just above the renal, and angiogram was done revealing normal renals and normal distal aorta, but she had a 70% to 80% right common iliac artery stenosis. She had a completely occl uded left common iliac stenosis from the ostium all the way to the common femoral artery with reconst itution there. She had good distal flow below that. Complications: None. Conscious Sedation: Total conscious sedation is 30 minutes. Blood Loss: 5 cc. Impression And Plan: Severe peripheral arterial disease. We will give a film to the patient, and I will keep one to myself. I will see her in the office next week and discuss the chance of her having an aortobifemoral surgery. The case was discussed with the son. We will continue medical regimen. She will go home today after 2 hours of bedrest. NADIYA/ESTEFANIA Voice ID: [id number] Report ID: [id number]
== END 2018-02-21 10:41 | disposition home or self-care (01) ==
LOC: CCL 06:12
DX: I70.203 Unspecified atherosclerosis of native arteries of extremities, bilateral legs (principal); I70.92 Chronic total occlusion of artery of the extremities; I25.10 Atherosclerotic heart disease of native coronary artery without angina pectoris; I10 Essential (primary) hypertension; I48.91 Unspecified atrial fibrillation; E78.6 Lipoprotein deficiency; E11.9 Type 2 diabetes mellitus without complications; E78.5 Hyperlipidemia, unspecified; J44.9 Chronic obstructive pulmonary disease, unspecified; Z95.0 Presence of cardiac pacemaker; Z95.5 Presence of coronary angioplasty implant and graft; Z87.891 Personal history of nicotine dependence; Z88.6 Allergy status to analgesic agent; Z88.8 Allergy status to other drugs, medicaments and biological substances; Z82.49 Family history of ischemic heart disease and other diseases of the circulatory system
CPT/HCPCS: 36200; 36415; 75630; 80048; 82962 ×2; 85025; 85610; 85730; C1893; J2250 ×2; J3010

== ENCOUNTER 2018-03-22 14:20 | Inpatient (IN) | payer OTHER, MEDICARE ==
--- NOTE | 2018-03-22 16:27 | R.PREADM ---
SCREENING DATE AND TIME 03/22/2018 14:29 (CDT) ANTICIPATED REHAB ADMISSION DATE 03/24/2018 REFERRING FACILITY [facility] REFERRAL DATE AND TIME 03/22/2018 14:30 (CDT) ACUTE ADMIT DATE 03/18/2018 Previous Rehabilitation(s): No. REFERRING PHYSICIAN Billy Mcmanus REHAB FACILITY [facility] CLINICAL LIAISON Shireen Crocker PHYSICIAN REVIEWER Dr. Federico Freitas M.D. MR# [id number] NAME EDDIE RICKS ADDRESS [address] [place] PHONE [facility] [[email or web address]] [id number] DATE OF 1935 AGE 82 SSN# [id number] GENDER female MARITAL STATUS RACE white ADMIT FROM 02 - [facility] PRE-HOSPITAL LIVING SETTING 01 - Home (private home/apt. board/care, assisted living, care home, transitional living) HOME TYPE AND DETAILS Type of home: single family house # of steps to enter the residence: 0 # of steps within the residence: 0 # of levels in the residence: 1 PRE-HOSPITAL LIVING WITH Family/Relatives FAMILY SUPPORT Yes PRIMARY FAMILY CONTACT NAME Ricardo Godfrey PRIMARY FAMILY CONTACT PHONE PHONE PRIMARY FAMILY CONTACT ON ADM.? no IS PRIMARY FAMILY CONTACT AUTH. REP.? no 1ST EMERGENCY CONTACT Ricardo Godfrey 1ST CONTACT PHONE PHONE 1ST CONTACT ON ADM. no IS 1ST CONTACT AUTH. REP.? no PHONE 2ND CONTACT ON ADM.? no PATIENT EMPLOYMENT STATUS Retired (for age) PATIENT EMPLOYER No Employer PAYOR INFORMATION: 1ST PAYOR NAME Medicare 1ST PAYOR PHONE 1ST PAYOR INJURY/ILLNESS DUE TO ACCIDENT? No ANOTHER LIBERTARIAN RESPONSIBLE? No PRIMARY REHAB/ACUTE DIAGNOSIS: Peripheral artery disease ONSET DATE 03/18/2018 REHAB IMPAIRMENT CATEGORY (GERHARD): 20 Miscellaneous (Misc) does NOT meet 60% rule PRIMARY DIAGNOSIS-RELATED SURGERIES: aortic bilateral femoral bypass COMORBID REHAB/ACUTE DIAGNOSES: - N/A DIABETES type II hypertension hyperlipidemia COPD GERD pacemaker INTERVENTIONS: - Hypertension Fluid management Medications VS - COPD 02 sats Medications Nebulizers Oxygen Resp. therapy X-rays - GERD Altered diet Elevation of head of bed Medications Nausea/vomiting Nighttime food/fluid restrictions Nutrition RISK FOR COMPLICATIONS: - Hypertension CVA Hypotension LA TIA - COPD Acute Resp failure Pneumonia Resp. Arrest - GERD Alteration in sleep Aspiration Dehydration Malnutrition Pain SUMMARY OF ACUTE HOSPITALIZATION: Pt. is a 82 yo Right-handed white female. On 03/18/2018 she was admitted to [facility] with diagnosis Peripheral art thalia disease. Her impairment category is Medically Complex Conditions 17 - Circulatory Disorders (17.4). Pre-morbidly, Pt. was independent/mod-I in Sphincter Control, Transfers Control, Communication, Socia l Cognition, Self-Care, and Locomotion; and she had good Sphincter Control. Currently, she has deficits of Safety Awareness, Transfers Control, Communication, Social Cognition, Balance, Endurance, Locomotion, and Self-Care. Pt. is now referred to [facility] for acute in-patient rehabilitation in order to maximize patient's functional independence in activities of daily living, strength, ROM, and mobi lity. Patient has realistic goal of being discharged at assistance level 6-Michael to reside at Home with Fam alexis/Relatives. PAST MEDICAL HISTORY COPD DIABETES type II GERD hyperlipidemia hypertension pacemaker MEDICATION ALLERGIES: No Known Drug Allergies (NKDA) ENVIRONMENTAL ALLERGIES: - Substance Allergies None Known - Other Allergies None Known CODE STATUS: Full code WEIGHT/HEIGHT/BMI: WEIGHT 181 lbs HEIGHT 5' 6" BMI 29.2 DIET: - Diet Type Regular - Diet - Solid Texture Regular - Diet - Liquid Texture Regular - Tube Feed N/A SKIN DIAGRAM: Incision on Abdomen; extent - small; stage - NS(Not Stageable). Treatment - Per Physician's Orders. REVIEW OF SYSTEMS: - Gen Alert and awake Lying in bed No apparent distress Oriented to: person, time, and place - CVS RRR VITAL SIGNS Temperature: 97.6 F SBP/DBP: 207/88 Pulse: 69 Resp: 18 Vital signs stable, afebrile CURRENT SPHINCTER CONTROL: Pre-hospital bladder status: continent # of bladder accidents in the last 7 days prior to screenin Pre-hospital bowel status: continent # of bowel accidents in the last 7 days prior to screenin Last Bowel Movement Date: 03/22/2018 DETAILED CURRENT FUNCTIONAL STATUS: - Bladder accident frequency: Ind - No accidents in the past 7 days - Bowel accident frequency: Ind - No accidents in the past 7 days - Walking score based on distance walked: 1(<=50ft) FUNCTIONAL STATUS: - Self-Care A. Eating Ind Ind B. Grooming Ind Mckay C. Bathing Ind Mckay D. Dressing - Upper Ind modA E. Dressing - Lower Ind maxA F. Toileting Ind Mckay - Sphincter Control G: Bladder control Ind Ind H: Bowel control Ind Ind - Transfers Control I. Bed/Chair/Wheelchair Ind Mckay J. Toilet Ind Mckay K. Tub/Shower Ind Michael - Locomotion L. Walk/Wheelchair (B) Ind Dep M. Stairs Ind ADNO - Communication N. Comprehension (B) Ind sup O. Expression (B) Ind sup - Social Cognition P. Social Interaction Ind sup Q. Problem Solving Ind sup R. Memory Ind sup - Endurance Poor - Balance Poor - Safety Awareness Poor CURRENT FUNC. DEFICITS: Safety Awareness, Transfers Control, Communication, Social Cognition, Balance, Endurance, Locomotion, and Self-Care THERAPY NOTES FROM ACUTE CARE: Attached. SPECIAL NEEDS: - Safety Concerns Skin breakdown precautions needed due to skin breakdown risk PATIENT NEEDS ACTIVE AND ONGOING THERAPEUTIC INTERVENTION OF MULTIPLE THERAPY DISCIPLINES, INCLUDING: - Occupational Therapy Evaluate and Treat. - Physical Therapy Evaluate and Treat. PATIENT NEEDS CLOSE MEDICAL SUPERVISION BY A REHABILITATION PHYSICIAN FOR: Bowel and Bladder Management Coordination of Treatment Team Diabetes Management Medical and Co-Morbidity Management Wound Care PATIENT REQUIRES 24X7 REHAB NURSING FOR MEDICAL AND FUNCTIONAL MGT. OF THE FOLLOWING DEFICITS: ADL's Ambulation Bowel and Bladder Management Cognition Communication Disease Management Medication Management Patient/Family Education Providing Safe Environment Skin Integrity Transfers PATIENT REQUIRES INTENSIVE, COORDINATED INTERDISCIPLINARY APPROACH TO REHAB: Arranging Home Equipment/Services Discharge Planning Family Intervention/Training Coach Cleaner/Case Management PATIENT REHAB POTENTIAL: Expected level of measurable improvement will be of a practical value to patient's functional capacit y or adaptations to impairments Has a viable Discharge Plan Medically appropriate; condition is sufficiently stable to participate in intensive rehab program Patient is able and expected to receive 3 hours of individualized therapy daily on at least 5 of ever y 7 days Patient's prognosis for significant practical improvement within a reasonable period of time appears Good DISCHARGE PLAN: - Estimated Length of Stay (days) 13. - Consensus on plan Discharge plan has been discussed with primary caregiver. Patient/Family is in agreement with the drew n. Primary caregiver is in agreement with the plan. - Patient/Family Goals Return home with assistance. - Planned Living Setting Upon Discharge Home, to live with Family/Relatives. RECOMMENDED CARE LEVEL: IRF RECOMMENDATION DETAILS: Recommended Admission to Comprehensive Rehabilitation Program to Increase Functional [place] SCREENER'S COMPLETENESS CONFIRMATION: - Screening Confirmation The patient data collection on this preadmission screening form is finished PHYSICIANS REVIEW AND ADMISSION DETERMINATION Admit - Based on my review of the Pre-Admission Screening results, in my medical judgment and experie nce, I concur with the findings and recommend admission to [facility], as this patient requires an IRF level of care. SIGNATURE PANEL: Clinical Liaison - [electronically] signed by Mariya Mays on 03/22/2018 at 15:10 (CDT) Clinical Liaison - [electronically] signed by Shireen Crocker on 03/22/2018 at 15:14 (CDT) Physician Reviewer - [electronically] signed by Dr. Federico Freitas M.D. on 03/22/2018 at 15:27 (CDT )
--- OUTSIDE RECORDS SUMMARY | 2018-03-28 17:48 | XMS REPORT | Clinical Summary ---
:1935 Author Organization [facility] Address [address] [place] [address] Phone Care Team Providers Name Role Phone Unavailable Primary Care Provider Unavailable Allergies Active Allergy Reactions Severity Noted Date Comments Atenolol 03/11/2018 Morphine 03/11/2018 flushing of the face Simvastatin 03/11/2018 Sulfa (Sulfonamide Antibiotics) 03/11/2018 HALLUCINATIONS Ticlopidine 03/11/2018 Current Medications Prescription Sig. Disp. Refills Start Date End Date Status albuterol USE ONE (1) VIAL 6 02/05/2018 Active (PROVENTIL) 2.5 mg VIA NEBULIZER /3 mL (0.083 %) EVERY 6 HOURS nebulizer solution NEEDED. famotidine TAKE ONE (1) 1 01/22/2018 Active (PEPCID) 40 MG TABLET(S) BY tablet MOUTH ONCE A DAY. gabapentin 600 mg 2 (two) 1 01/22/2018 Active (NEURONTIN) 300 MG times daily . capsule levothyroxine TAKE ONE (1) 1 02/21/2018 Active (SYNTHROID, TABLET(S) BY LEVOTHROID) 125 MOUTH EVERY MCG tablet MORNING. losartan-hydroCHLO TAKE ONE (1) 1 02/21/2018 Active ROthiazide TABLET(S) BY (HYZAAR) 100-25 mg MOUTH ONCE A DAY. per tablet sertraline 50 mg daily. 0 01/22/2018 Active (ZOLOFT) 50 MG tablet fenofibrate Take 145 mg by Active (TRICOR) 145 MG mouth daily. tablet bimatoprost Place 1 drop into Active (LUMIGAN) 0.01 % both eyes Drop ophthalmic nightly. solution arformoterol Take 15 mcg by Active (BROVANA) 15 mcg/2 nebulization mL nebulizer every 12 (twelve) solution hours. acetaminophen Take 2 tablets 30 tablet 0 03/28/2018 Active (TYLENOL) 325 MG (650 mg total) by tablet mouth every 6 (six) hours as needed for Pain. aspirin 81 MG EC Take 4 tablets 03/28/2018 Active tablet (325 mg total) by mouth daily. amLODIPine Take 1 tablet (5 0 03/29/2018 Active (NORVASC) 5 MG mg total) by 9 tablet mouth daily. polyethylene Take 17 g by 14 each 0 03/29/2018 Active glycol (GLYCOLAX) mouth daily Hold 17 gram packet for loose stool. predniSONE Take 1 tablet (10 1 03/28/2018 Active (DELTASONE) 10 MG mg total) by tablet mouth daily. traMADol (ULTRAM) Take 2 tablets 30 tablet 0 03/28/2018 Active 50 mg tablet (100 mg total) by 8 mouth every 6 (six) hours as needed for up to 10 days. Max Daily Amount: 400 mg senna-docusate Take 1 tablet by 0 03/28/2018 Active (SENOKOT S) 8.6-50 mouth nightly. 9 mg per tablet HYDROcodone-acetam Take 1 tablet by 30 tablet 0 03/28/2018 Active inophen (NORCO mouth every 4 10-325) 10-325 mg (four) hours as per tablet needed for Pain. Max Daily Amount: 6 tablets LEVEMIR FLEXTOUCH 10 Units 2 (two) 1 02/19/2018 Suspended 100 unit/mL (3 mL) times daily. 8 InPn injection predniSONE 20 mg daily . 1 12/25/2017 Suspended (DELTASONE) 10 MG 8 tablet traMADol (ULTRAM) TAKE ONE (1) 3 02/19/2018 Suspended 50 mg tablet TABLET(S) BY 8 MOUTH THREE TIMES A DAY. aspirin 325 MG EC Take 325 mg by Suspended tablet mouth daily. 8 HYDROcodone-acetam Take 1 tablet by 30 tablet 0 03/28/2018 Discontinued inophen (NORCO mouth every 6 8 10-325) 10-325 mg (six) hours as per tablet needed for Pain. Max Daily Amount: 4 tablets Active Problems Problem Noted Date Leukocytosis 03/20/2018 DM (diabetes mellitus) type II, controlled, with peripheral vascular disorder (HCC) Hypertension Hyperlipidemia Peripheral vascular disease (HCC) Iliac artery occlusion, left (HCC) COPD (chronic obstructive pulmonary disease) (HCC) GERD (gastroesophageal reflux disease) Respiratory insufficiency Pacemaker Encounters Date Type Specialty Care Team Description 03/25/2018 Anesthesia Event Felicity King MD 03/25/2018 Procedure Pass 03/25/2018 [place], DEBRIDEMENT/I&D,WOUND Billy Alfredo, TRUNK ANTERIOR MD 03/18/2018 - Hospital Encounter Cardiology [place], 03/28/2018 MD Tg Herbert Chau Le, MD 03/18/2018 Procedure Pass 03/18/2018 Surgery [place], BYPASS,AORTO-FEMORAL Billy Alfredo MD 03/17/2018 Anesthesia Event Genaro Lentz MD 03/11/2018 Hospital Encounter Billy Mcmanus MD 03/11/2018 Office Visit Cardiology [place], Diabetes mellitus type Billy Alfredo, 2, noninsulin MD dependent ([facility]);Essential hypertension;Hyperlipi demia, unspecified hyperlipidemia type;Peripheral vascular disease (HCC);Iliac artery occlusion, left (HCC);Chronic obstructive pulmonary disease, unspecified COPD type (HCC);Gastroesophageal reflux disease, esophagitis presence not specified 03/11/2018 Orders Only General Internal Medicine after 03/27/2017 Social History Tobacco Use Types Packs/Day Years Used Date Former Smoker 1 50 Quit: 1998 Smokeless Tobacco: Never Used Alcohol Use Drinks/Week oz/Week Comments No Sex Assigned at Date Recorded Not on file Last Filed Vital Signs Vital Sign Reading Time Taken Blood Pressure 134/60 03/28/2018 11:43 AM CDT Pulse 68 03/28/2018 11:43 AM CDT Temperature 36.7 C (98.1 F) 03/28/2018 11:43 AM CDT Respiratory Rate 20 03/28/2018 11:43 AM CDT Oxygen Saturation 96% 03/28/2018 11:43 AM CDT Inhaled Oxygen Concentration - - Weight 86.3 kg (190 lb 4.8 oz) 03/28/2018 8:00 AM CDT Height 167.6 cm (5' 6") 03/18/2018 5:45 AM CDT Body Mass Index 30.72 03/28/2018 8:00 AM CDT Plan of Treatment Health Maintenance Due Date Last Done Comments INFLUENZA VACCINE 07/08/2018 Implants Implanted Type Area Physical Therapy Director Device Expiration Model / Identifier Date Serial / Lot Val Vieyra [id number] - [id number] Graft/Pa N/A: TERUMO: VASCUTEK 11/07/2020 [id number] / Implanted: Qty: 1 on 03/18/2018 by Billy Mcmanus MD [facility] [id number] / [id number] Procedures Procedure Name Priority Date/Time Associated Diagnosis Comments DEBRIDEMENT/I&D,WOUND 03/25/2018 8:00 AM Wound dehiscence, TRUNK ANTERIOR CDT surgical, initial encounter Special Needs REQ TF BYPASS,AORTO-FEMORAL 03/18/2018 8:00 AM CDT PAD (peripheral artery disease ) (HCC) after 03/27/2017 Results POC-Glucose meter (03/28/2018 11:23 AM)Only the most recent of42 resultswithin the time period is included. Component Value Ref Range POC-Glucose Meter 131 (H)Comment: TESTED AT [address] 70 - 110 mg/[place] [address] Specimen Performing Laboratory Blood [facility] [address] [address] CBC with platelet count + automated diff (03/28/2018 5:15 AM)Only the most recent of12 resultswithin the time period is included. Component Value Ref Range WBC 9.7 3.5 - 10.5 K/L RBC 3.69 (L) 3.93 - 5.22 M/L Hemoglobin 10.5 (L) 11.2 - 15.7 GM/DL Hematocrit 35.2 34.1 - 44.9 % MCV 95.4 (H) 79.4 - 94.8 fL MCH 28.5 25.6 - 32.2 pg MCHC 29.8 (L) 32.2 - 35.5 GM/DL RDW 14.6 (H) 11.7 - 14.4 % Platelets 321 150 - 450 K/CU MM MPV 10.6 9.4 - 12.3 fL nRBC 0 0 - 0 /100 WBC % Neutros 73 % % Lymphs 15 % % Monos 7 % % Eos 3 % % Baso 1 % # Neutros 7.06 (H) 1.56 - 6.13 K/L # Lymphs 1.42 1.18 - 3.74 K/L # Monos 0.71 (H) 0.24 - 0.36 K/L # Eos 0.27 0.04 - 0.36 K/L # Baso 0.05 0.01 - 0.08 K/L Immature Granulocytes-Relative 2 (H) 0 - 1 % Specimen Performing Laboratory Blood - Arm, Left [address] [address] CBC with platelet count + automated diff (03/28/2018 5:15 AM)Only the most recent of12 resultswithin the time period is included. Specimen Performing Laboratory Blood Narrative The following orders were created for panel order CBC with platelet count + automated diff. Procedure Abnormality Status --------- ------ CBC with platelet count ...[[id number]]AbnormalFinal result Please view results for these tests on the individual orders. Basic Metabolic Panel (03/28/2018 5:15 AM)Only the most recent of11 resultswithin the time period is included. Component Value Ref Range Sodium 139 136 - 145 meq/L Potassium 3.6 3.5 - 5.1 meq/L Chloride 102 98 - 107 meq/L CO2 27 22 - 29 meq/L BUN 13 7 - 21 mg/dL Creatinine 0.70 0.57 - 1.25 mg/dL Glucose 90 70 - 105 mg/dL Calcium 9.2 8.4 - 10.2 mg/dL EGFR 80Comment: ESTIMATED GFR IS NOT ACCURATE mL/min/1.73 sq m CREATININE CLEARANCE IN PREDICTING GLOMERULAR FILTRATION RATE. ESTIMATED GFR IS NOT APPLICABLE FOR DIALYSIS PATIENTS. Specimen Performing Laboratory Blood - Arm, Left [address] [address] Potassium-Stat Lab (03/25/2018 10:53 AM)Only the most recent of5 resultswithin the time period is included. Component Value Ref Range Potassium 3.0 (L) 3.6 - 5.5 meq/L Specimen Performing Laboratory Blood, Arterial [address] [address] Glucose-Stat Lab (03/25/2018 10:53 AM)Only the most recent of6 resultswithin the time period is included. Component Value Ref Range Glucose 116 (H) 70 - 110 mg/dL Specimen Performing Laboratory Blood, Arterial [address] [address] HGB/HCT (H&H)-Stat Lab (03/25/2018 10:53 AM)Only the most recent of5 resultswithin the time period is included. Component Value Ref Range Hemoglobin 11.2 (L) 12.0 - 15.0 g/dL Hematocrit 33.0 (L) 36.0 - 45.0 % Specimen Performing Laboratory Blood, Arterial [address] [address] Surgically obtained culture + gram stain (03/25/2018 9:44 AM) Component Value Ref Range Result No growth Gram Stain Result 1+ WBCs Gram Stain Result No organisms seen Specimen Performing Laboratory Wound - Abdomen [address] [address] SPIN/CONCENTRATION CHARGE (03/25/2018 9:44 AM) Component Value Ref Range Concentration charged Done Specimen Performing Laboratory Body Fluid - Abdomen [address] [address] XR spine lumbar complete 4 views min (03/23/2018 3:20 PM) Specimen Performing Laboratory GE RIS Narrative FINAL REPORT Lumbar spine. HISTORY: Acute back pain. COMPARISON STUDY: None available. FINDINGS: Six views of the lumbar spine demonstrate no evidence of fracture, malalignment or soft tissue swelling. A levoscoliosis is seen. Moderate changes are noted. Extensive atherosclerosis is seen. Clips project over the abdomen and pelvis. IMPRESSION: Degenerative changes. No definite acute abnormality. Signed: Jomar Gillette MD Report Verified Date/Time:03/23/2018 16:25:16 Reading Location: [facility] C013X Ortho Consult Reading Room Procedure Note Interface, External Ris In - 03/23/2018 4:27 PM CDT FINAL REPORT Lumbar spine. HISTORY: Acute back pain. COMPARISON STUDY: None available. FINDINGS: Six views of the lumbar spine demonstrate no evidence of fracture, malalignment or soft tissue swelling. A levoscoliosis is seen. Moderate changes are noted. Extensive atherosclerosis is seen. Clips project over the abdomen and pelvis. IMPRESSION: Degenerative changes. No definite acute abnormality. Signed: Jomar Gillette MD Report Verified Date/Time: 03/23/2018 16:25:16 Reading Location: [facility] B1 C013X Ortho Consult Reading Room chest 1 view portable / bedside (03/21/2018 7:43 AM)Only the most recent of4 resultswithin the time period is included. Specimen Performing Laboratory GE RIS Narrative FINAL REPORT HISTORY : post cardiovascular procedure. Comparison: 03/20/2018 Comment: Single portable view of the chest was obtained. The cardiac silhouette size is enlarged. There is a tortuous/ectatic thoracic aorta with some atherosclerotic calcification. A left-sided multilead ICD is in place. No pneumothorax or pleural effusion is visualized. There is some minimal bibasilar patchy airspace disease which may represent atelectasis. Pneumonitis or aspiration cannot be excluded. Signed: Freya Turcios MD Report Verified Date/Time:03/21/2018 08:03:21 Reading Location: [facility] Diagnostic Imaging Reading Room [place] [address] Procedure Note Interface, External Ris In - 03/21/2018 8:11 AM CDT FINAL REPORT HISTORY : post cardiovascular procedure. Comparison: 03/20/2018 Comment: Single portable view of the chest was obtained. The cardiac silhouette size is enlarged. There is a tortuous/ectatic thoracic aorta with some atherosclerotic calcification. A left-sided multilead ICD is in place. No pneumothorax or pleural effusion is visualized. There is some minimal bibasilar patchy airspace disease which may represent atelectasis. Pneumonitis or aspiration cannot be excluded. Signed: Freya Turcios MD Report Verified Date/Time: 03/21/2018 08:03:21 Reading Location: [facility] Diagnostic Imaging Reading Room - [place] [address] Magnesium (03/21/2018 3:45 AM)Only the most recent of5 resultswithin the time period is included. Component Value Ref Range Magnesium 1.9Comment: Specimen slightly hemolyzed 1.6 - 2.6 mg/dL Specimen Performing Laboratory Blood [address] [address] Hemoglobin A1c (03/20/2018 4:54 AM) Component Value Ref Range Hemoglobin A1C 6.0 4.3 - 6.1 % Specimen Performing Laboratory Blood - Arm, Left [address] [address] XR abdomen / KUB 1 view (03/19/2018 1:43 PM) Specimen Performing Laboratory GE RIS Narrative FINAL REPORT TECHNIQUE: Supine views of the abdomen dated 03/19/2018. HISTORY: Nausea and eructation. COMPARISON: None IMPRESSION: Surgical em project over the abdomen and pelvis. An enteric tube is seen with the tip in the region of the gastric body. No air-filled, dilated loops of bowel to suggest obstruction. No free intraperitoneal air. No abnormal soft tissue mass or calcification. Degenerative changes are seen in the spine. Bones are osteopenic. Signed: Damian Glass MD Report Verified Date/Time:03/19/2018 15:02:35 Reading Location: [facility] Radiology Reading Room Procedure Note Interface, External Ris In - 03/19/2018 3:04 PM CDT FINAL REPORT TECHNIQUE: Supine views of the abdomen dated 03/19/2018. HISTORY: Nausea and eructation. COMPARISON: None IMPRESSION: Surgical em project over the abdomen and pelvis. An enteric tube is seen with the tip in the region of the gastric body. No air-filled, dilated loops of bowel to suggest obstruction. No free intraperitoneal air. No abnormal soft tissue mass or calcification. Degenerative changes are seen in the spine. Bones are osteopenic. Signed: Damian Glass MD Report Verified Date/Time: 03/19/2018 15:02:35 Reading Location: [facility] Radiology Reading Room Blood gas, arterial (03/19/2018 3:45 AM)Only the most recent of8 resultswithin the time period is included. Component Value Ref Range pH, Arterial 7.37 7.35 - 7.45 pCO2, Arterial 47 (H) 35 - 45 mmHg pO2, Arterial 68 (L) 80 - 90 mmHg O2 Sat, Arterial 92.4 (L) 96.0 - 97.0 % HCO3, Arterial 26 21 - 29 mmol/L Base Excess, Arterial 0.6 -2.0 - 3.0 mmol/L Patient Temperature 37.4 C FIO2 40.0 % Specimen Performing Laboratory Blood, Arterial [address] [address] Sputum Culture + Gram Stain (03/18/2018 7:44 PM) Component Value Ref Range Result 3+ Normal respiratory anu present Gram Stain Result <1+ WBCs Gram Stain Result 10-15 epithelial cells Gram Stain Result 1+ gram positive cocci in pairs Specimen Performing Laboratory Sputum - Endotracheal [address] [address] Potassium (03/18/2018 7:20 PM) Component Value Ref Range Potassium 3.7 3.5 - 5.1 meq/L Specimen Performing Laboratory Blood [address] [address] Narrative 8 hours after PO replacement completed Calcium, Ionized (03/18/2018 11:51 AM)Only the most recent of4 resultswithin the time period is included. Component Value Ref Range Calcium, Ion 1.25 1.12 - 1.27 mmol/L pH, Blood 7.37 Specimen Performing Laboratory Blood [address] [address] Lactic acid, venous, whole blood (03/18/2018 11:51 AM) Component Value Ref Range Lactate, Venous 1.0Comment: Specimen slightly hemolyzed 0.5 - 2.2 mmol/L Specimen Performing Laboratory Blood [address] [address] Narrative Effective 02/09/2016: Units/Reference Range Change New: 0.5-2.2 mmol/LPrevious: 5-20 mg/dL Phosphorus (03/18/2018 11:51 AM) Component Value Ref Range Phosphorus 3.9 2.3 - 4.7 mg/dL Specimen Performing Laboratory Blood [address] [address] Tissue Exam (03/18/2018 10:46 AM) Component Value Ref Range Case Report Surgical Pathology Report Case: [id number] Authorizing Provider:Billy Mcmanus, Collected: 03/18/2018 1046 Ordering Location: [facility] Received: 03/18/2018 1131 PERIOPERATIVE SERVICES Pathologist: Chris Caraballo MD Specimen:Plaque, AORTIC PLAQUE DIAGNOSIS AORTA, ATHERECTOMY: CALCIFIC ATHEROSCLEROTIC PLAQUE Signing Pathologist Direct Phone Line: [phone] CPT Code(s) 51884; 80629 CLINICAL HISTORY PAD SPECIMEN SOURCE Aortic plaque GROSS DESCRIPTION Received in saline labeled "plaque", description "aortic plaque" is a 4.5 x 3.5 x 0.6 cm aggregate of felix-white to yellow-panchal, rubbery, calcified fibrous tissue. Trim Sawyer sections are submitted in cassette A1 for decalcification. DB/ ew MICROSCOPIC DESCRIPTION Performed Specimen Performing Laboratory Tissue - Plaque [address] [address] [facility] CRITICAL LABS (ABG,NA,K,H&H,GLUCOSE) (03/18/2018 10:29 AM)Only the most recent of3 resultswithin the time period is included. Specimen Performing Laboratory Blood, Arterial Narrative The following orders were created for panel order [facility] CRITICAL LABS (ABG,NA,K,H&H,GLUCOSE). Procedure Abnormality Status --------- ------ Blood gas, arterial[[id number]]AbnormalFinal result Sodium Na-Stat Lab[[id number]] NormalFinal result Potassium-Stat Lab[[id number]] AbnormalFinal result Glucose-Stat Lab[[id number]] AbnormalFinal result HGB/HCT (H&H)-Stat Lab[[id number]] Normal Final result Please view results for these tests on the individual orders. Sodium Na-Stat Lab (03/18/2018 10:29 AM)Only the most recent of3 resultswithin the time period is included. Component Value Ref Range Sodium 141 135 - 148 meq/L Specimen Performing Laboratory Blood, Arterial [address] [address] Platelet Aggregation: Function Screen (03/18/2018 7:01 AM) Component Value Ref Range Weak ADP 63 60 - 91 % Plt. Function Screen Interpretation 60-100% indicates normal platelet function Pathologist: Teresa De León MD (electronic signature) Platelets 209 150 - 450 K/CU MM Specimen Performing Laboratory Blood [address] [address] Narrative for patients on clopidogrel in past two weeks TRANSFUSION SERVICE REPORT - SCAN (03/12/2018 6:00 PM)XR chest 2 views (2017 2:40 PM) Specimen Performing Laboratory GE RIS Narrative FINAL REPORT Chest two views INDICATION: Preoperative exam. Peripheral arterial disease. COMPARISON: None available IMPRESSION: There is minimal basilar atelectasis or scarring. There is no focal consolidation, vascular congestion, pleural effusion, or pneumothorax. The cardiac silhouette is enlarged. Mild aortic ectasia/tortuosity and calcification, osteopenia, degenerative spine changes, and a left chest pacemaker are noted. Signed: Velma Still MD Report Verified Date/Time:03/11/2018 14:44:31 Reading Location: [address] Consult Reading Room Procedure Note Interface, External Ris In - 03/11/2018 2:46 PM CDT FINAL REPORT Chest two views INDICATION: Preoperative exam. Peripheral arterial disease. COMPARISON: None available IMPRESSION: There is minimal basilar atelectasis or scarring. There is no focal consolidation, vascular congestion, pleural effusion, or pneumothorax. The cardiac silhouette is enlarged. Mild aortic ectasia/tortuosity and calcification, osteopenia, degenerative spine changes, and a left chest pacemaker are noted. Signed: Velma Still MD Report Verified Date/Time: 03/11/2018 14:44:31 Reading Location: [facility] B1 C013W Consult Reading Room Type and screen, automated (03/11/2018 2:13 PM) Component Value Ref Range ABO/RH AUTOMATED (BEAKER) O POSITIVE Ab Scrn NEGATIVE Specimen Performing Laboratory Blood [address] [address] aPTT (03/11/2018 2:13 PM) Component Value Ref Range PTT 27.8 22.5 - 36.0 seconds Specimen Performing Laboratory Blood [address] [address] Prothrombin time/INR (03/11/2018 2:13 PM) Component Value Ref Range Protime 14.4 11.7 - 14.7 seconds INR 1.1 <=5.9 Specimen Performing Laboratory [address] [address] Narrative RECOMMENDED COUMADIN/WARFARIN INR THERAPY RANGES STANDARD DOSE: 2.0 - 3.0 Includes: PROPHYLAXIS for venous thrombosis, systemic embolization; TREATMENT for venous thrombosis and/or pulmonary embolus. HIGH RISK: Target INR is 2.5-3.5 for patients with mechanical heart valves. Comprehensive metabolic panel (03/11/2018 2:13 PM) Component Value Ref Range Protein, Total 7.7 6.0 - 8.3 gm/dL Albumin 4.1 3.5 - 5.0 g/dL Alkaline Phosphatase 40 40 - 150 U/L Total Bilirubin 0.8 0.2 - 1.2 mg/dL Sodium 143 136 - 145 meq/L Potassium 4.1 3.5 - 5.1 meq/L Chloride 101 98 - 107 meq/L CO2 30 (H) 22 - 29 meq/L BUN 31 (H) 7 - 21 mg/dL Creatinine 1.17 0.57 - 1.25 mg/dL Glucose 142 (H) 70 - 105 mg/dL Calcium 10.5 (H) 8.4 - 10.2 mg/dL AST 28 5 - 34 U/L ALT 18 6 - 55 U/L EGFR 44Comment: ESTIMATED GFR IS NOT ACCURATE mL/min/1.73 sq m CREATININE CLEARANCE IN PREDICTING GLOMERULAR FILTRATION RATE. ESTIMATED GFR IS NOT APPLICABLE FOR DIALYSIS PATIENTS. Specimen Performing Laboratory Blood [address] [address] Electrocardiogram, 12-lead (03/11/2018 1:51 PM) Specimen Performing Laboratory GE MUSE Narrative Ventricular Rate 70 BPM Atrial Rate 72 BPM QRS Duration 186 ms Q-T Interval 476 ms QTC Calculation(Bazett) 514 ms R [place] 261 degrees T [place] 69 degrees Atrial fibrillation Electronic ventricular pacemaker No previous ECGs available Confirmed by Ruby MCWILLIAMS MICHAEL ([id number]) on 03/12/2018 8:38:53 AM Procedure Note Interface, External Ris In - 03/12/2018 8:39 AM CDT Ventricular Rate 70 BPM Atrial Rate 72 BPM QRS Duration 186 ms Q-T Interval 476 ms QTC Calculation(Bazett) 514 ms R [place] 261 degrees T [place] 69 degrees Atrial fibrillation Electronic ventricular pacemaker No previous ECGs available Confirmed by Ruby MCWILLIAMS MICHAEL ([id number]) on 03/12/2018 8:38:53 AM after 03/27/2017
--- OUTSIDE RECORDS SUMMARY | 2018-03-28 17:49 | XMS REPORT ---
:1935 [facility] Address [address] [place], [place] [address]dusty Aguilar [address] [place] [address] Care Team Providers Name Role Phone BILLY MCMANUS Unavailable Unavailable Problems This patient has no known problems. Allergies, Adverse Reactions, Alerts This patient has no known allergies or adverse reactions. Medications This patient has no known medications. Results Test Description Test Time Test Comments Text Results Atomic Results Result Comments SURGICALLY OBTAINED CULTURE + GRAM STAIN 2018-03-28 14:05:00 Test Item Value Reference Range Comments CULTURE (BEAKER) (test nmfv=7821) No growth GRAM STAIN RESULT (BEAKER) (test fkbi=1569) 1+ WBCs GRAM STAIN RESULT (BEAKER) (test rltk=13068) No organisms seen POCT-GLUCOSE [id number] 12:39:00 Test Item Value Reference Range Comments POC-GLUCOSE METER (BEAKER) 131 mg/dL 70-110 TESTED AT [place] [id number] (test ylyd=6626) [place] [id number] POCT-GLUCOSE [id number] 08:01:00 Test Item Value Reference Range Comments POC-GLUCOSE METER (BEAKER) 106 mg/dL 70-110 TESTED AT [address] (test ulwm=6276) [facility] [address] BASIC METABOLIC [id number] 06:21:00 Test Item Value Reference Range Comments SODIUM (BEAKER) (test 139 meq/L 136-145 vmmr=255) POTASSIUM (BEAKER) (test 3.6 meq/L 3.5-5.1 endw=208) CHLORIDE (BEAKER) (test 102 meq/L 98-107 zjuo=608) CO2 (BEAKER) (test 27 meq/L 22-29 sdjx=437) BLOOD UREA NITROGEN 13 mg/dL 7-21 (BEAKER) (test etyy=552) CREATININE (BEAKER) (test 0.70 mg/dL 0.57-1.25 edjr=713) GLUCOSE RANDOM (BEAKER) 90 mg/dL 70-105 (test izdl=134) CALCIUM (BEAKER) (test 9.2 mg/dL 8.4-10.2 omjm=924) EGFR (BEAKER) (test 80 mL/min/1.73 sq m ESTIMATED GFR IS NOT mqfk=8696) ACCURATE CREATININE CLEARANCE IN PREDICTING GLOMERULAR FILTRATION RATE. ESTIMATED GFR IS NOT APPLICABLE FOR DIALYSIS PATIENTS. CBC W/PLT COUNT & AUTO [id number] 05:48:00 Test Item Value Reference Range Comments WHITE BLOOD CELL COUNT (BEAKER) (test htuw=943) 9.7 K/ L 3.5-10.5 RED BLOOD CELL COUNT (BEAKER) (test apyw=378) 3.69 M/ L 3.93-5.22 HEMOGLOBIN (BEAKER) (test kzpd=750) 10.5 GM/DL 11.2-15.7 HEMATOCRIT (BEAKER) (test vlcw=714) 35.2 % 34.1-44.9 MEAN CORPUSCULAR VOLUME (BEAKER) (test qojp=186) 95.4 fL 79.4-94.8 MEAN CORPUSCULAR HEMOGLOBIN (BEAKER) (test 28.5 pg 25.6-32.2 rxnr=723) MEAN CORPUSCULAR HEMOGLOBIN CONC (BEAKER) (test 29.8 GM/DL 32.2-35.5 jmrz=291) RED CELL DISTRIBUTION WIDTH (BEAKER) (test 14.6 % 11.7-14.4 bvje=695) PLATELET COUNT (BEAKER) (test bxur=814) 321 K/CU MM 150-450 MEAN PLATELET VOLUME (BEAKER) (test uoea=033) 10.6 fL 9.4-12.3 NUCLEATED RED BLOOD CELLS (BEAKER) (test 0 /100 WBC 0-0 lycf=963) NEUTROPHILS RELATIVE PERCENT (BEAKER) (test 73 % mrzp=162) LYMPHOCYTES RELATIVE PERCENT (BEAKER) (test 15 % szwy=791) MONOCYTES RELATIVE PERCENT (BEAKER) (test 7 % gprt=851) EOSINOPHILS RELATIVE PERCENT (BEAKER) (test 3 % trtp=898) BASOPHILS RELATIVE PERCENT (BEAKER) (test 1 % hhyq=423) NEUTROPHILS ABSOLUTE COUNT (BEAKER) (test 7.06 K/ L 1.56-6.13 gahq=779) LYMPHOCYTES ABSOLUTE COUNT (BEAKER) (test 1.42 K/ L 1.18-3.74 krlc=533) MONOCYTES ABSOLUTE COUNT (BEAKER) (test 0.71 K/ L 0.24-0.36 sdbc=341) EOSINOPHILS ABSOLUTE COUNT (BEAKER) (test 0.27 K/ L 0.04-0.36 etuo=799) BASOPHILS ABSOLUTE COUNT (BEAKER) (test 0.05 K/ L 0.01-0.08 kiij=284) IMMATURE GRANULOCYTES-RELATIVE PERCENT (BEAKER) 2 % 0-1 (test vlzl=7311) POCT-GLUCOSE [id number] 21:47:00 Test Item Value Reference Range Comments POC-GLUCOSE METER (BEAKER) 161 mg/dL 70-110 TESTED AT [address] (test tnrf=3081) [place] [address] POCT-GLUCOSE [id number] 17:08:00 Test Item Value Reference Range Comments POC-GLUCOSE METER (BEAKER) 189 mg/dL 70-110 TESTED AT [address] (test tvnx=8416) [place] [address] POCT-GLUCOSE [id number] 11:12:00 Test Item Value Reference Range Comments POC-GLUCOSE METER (BEAKER) 197 mg/dL 70-110 TESTED AT [address] (test gnrq=9492) [place] [address] POCT-GLUCOSE [id number] 07:35:00 Test Item Value Reference Range Comments POC-GLUCOSE METER (BEAKER) 113 mg/dL 70-110 TESTED AT [address] (test agyz=8500) [place] [id number] BASIC METABOLIC [id number] 06:23:00 Test Item Value Reference Range Comments SODIUM (BEAKER) (test 137 meq/L 136-145 dmsj=613) POTASSIUM (BEAKER) (test 4.3 meq/L 3.5-5.1 vmtf=181) CHLORIDE (BEAKER) (test 101 meq/L 98-107 lhwn=511) CO2 (BEAKER) (test 26 meq/L 22-29 esbb=562) BLOOD UREA NITROGEN 12 mg/dL 7-21 (BEAKER) (test lauy=311) CREATININE (BEAKER) (test 0.70 mg/dL 0.57-1.25 pmtg=492) GLUCOSE RANDOM (BEAKER) 91 mg/dL 70-105 (test hoqx=012) CALCIUM (BEAKER) (test 9.3 mg/dL 8.4-10.2 hyss=952) EGFR (BEAKER) (test 80 mL/min/1.73 sq m ESTIMATED GFR IS NOT bwiw=3352) ACCURATE CREATININE CLEARANCE IN PREDICTING GLOMERULAR FILTRATION RATE. ESTIMATED GFR IS NOT APPLICABLE FOR DIALYSIS PATIENTS. CBC W/PLT COUNT & AUTO [id number] 06:12:00 Test Item Value Reference Range Comments WHITE BLOOD CELL COUNT (BEAKER) (test htcc=070) 11.9 K/ L 3.5-10.5 RED BLOOD CELL COUNT (BEAKER) (test qmwt=995) 3.65 M/ L 3.93-5.22 HEMOGLOBIN (BEAKER) (test ejjf=295) 10.7 GM/DL 11.2-15.7 HEMATOCRIT (BEAKER) (test mwza=543) 35.3 % 34.1-44.9 MEAN CORPUSCULAR VOLUME (BEAKER) (test bzpb=193) 96.7 fL 79.4-94.8 MEAN CORPUSCULAR HEMOGLOBIN (BEAKER) (test 29.3 pg 25.6-32.2 baou=598) MEAN CORPUSCULAR HEMOGLOBIN CONC (BEAKER) (test 30.3 GM/DL 32.2-35.5 sfuo=530) RED CELL DISTRIBUTION WIDTH (BEAKER) (test 14.6 % 11.7-14.4 mnio=985) PLATELET COUNT (BEAKER) (test dkdy=269) 277 K/CU MM 150-450 MEAN PLATELET VOLUME (BEAKER) (test kcae=463) 10.8 fL 9.4-12.3 NUCLEATED RED BLOOD CELLS (BEAKER) (test 0 /100 WBC 0-0 uszx=890) NEUTROPHILS RELATIVE PERCENT (BEAKER) (test 77 % sbea=154) LYMPHOCYTES RELATIVE PERCENT (BEAKER) (test 10 % pmeb=357) MONOCYTES RELATIVE PERCENT (BEAKER) (test 7 % haej=143) EOSINOPHILS RELATIVE PERCENT (BEAKER) (test 2 % wbgt=701) BASOPHILS RELATIVE PERCENT (BEAKER) (test 1 % qhnd=789) NEUTROPHILS ABSOLUTE COUNT (BEAKER) (test 9.13 K/ L 1.56-6.13 qurv=281) LYMPHOCYTES ABSOLUTE COUNT (BEAKER) (test 1.19 K/ L 1.18-3.74 dmsl=766) MONOCYTES ABSOLUTE COUNT (BEAKER) (test 0.87 K/ L 0.24-0.36 ofwg=203) EOSINOPHILS ABSOLUTE COUNT (BEAKER) (test 0.26 K/ L 0.04-0.36 gzog=359) BASOPHILS ABSOLUTE COUNT (BEAKER) (test 0.06 K/ L 0.01-0.08 fssa=482) IMMATURE GRANULOCYTES-RELATIVE PERCENT (BEAKER) 3 % 0-1 (test fclo=7460) POCT-GLUCOSE [id number] 21:04:00 Test Item Value Reference Range Comments POC-GLUCOSE METER (BEAKER) 143 mg/dL 70-110 TESTED AT [address] (test nyrv=6604) [place] [address] POCT-GLUCOSE [id number] 17:04:00 Test Item Value Reference Range Comments POC-GLUCOSE METER (BEAKER) 182 mg/dL 70-110 TESTED AT [address] (test uspy=7664) [place] [address] SPIN/CONCENTRATION [id number] 15:07:00 Test Item Value Reference Range Comments CONCENTRATION CHARGED (BEAKER) (test jqra=9789) Done POCT-GLUCOSE [id number] 11:38:00 Test Item Value Reference Range Comments POC-GLUCOSE METER (BEAKER) 141 mg/dL 70-110 TESTED AT [address] (test wdwr=4958) [place] [address] POCT-GLUCOSE [id number] 08:13:00 Test Item Value Reference Range Comments POC-GLUCOSE METER (BEAKER) 122 mg/dL 70-110 TESTED AT [address] (test ewbg=9302) [place] [address] BASIC METABOLIC [id number] 05:20:00 Test Item Value Reference Range Comments SODIUM (BEAKER) (test 138 meq/L 136-145 yggy=506) POTASSIUM (BEAKER) (test 3.8 meq/L 3.5-5.1 mxhq=413) CHLORIDE (BEAKER) (test 102 meq/L 98-107 nyup=169) CO2 (BEAKER) (test 28 meq/L 22-29 blmz=977) BLOOD UREA NITROGEN 12 mg/dL 7-21 (BEAKER) (test cena=236) CREATININE (BEAKER) (test 0.72 mg/dL 0.57-1.25 bghs=995) GLUCOSE RANDOM (BEAKER) 104 mg/dL 70-105 (test ggdb=386) CALCIUM (BEAKER) (test 8.5 mg/dL 8.4-10.2 qber=219) EGFR (BEAKER) (test 77 mL/min/1.73 sq m ESTIMATED GFR IS NOT tmhq=4097) ACCURATE CREATININE CLEARANCE IN PREDICTING GLOMERULAR FILTRATION RATE. ESTIMATED GFR IS NOT APPLICABLE FOR DIALYSIS PATIENTS. CBC W/PLT COUNT & AUTO [id number] 04:58:00 Test Item Value Reference Range Comments WHITE BLOOD CELL COUNT (BEAKER) (test xxgs=039) 11.5 K/ L 3.5-10.5 RED BLOOD CELL COUNT (BEAKER) (test ifld=368) 3.63 M/ L 3.93-5.22 HEMOGLOBIN (BEAKER) (test pkqv=428) 10.3 GM/DL 11.2-15.7 HEMATOCRIT (BEAKER) (test axza=275) 34.4 % 34.1-44.9 MEAN CORPUSCULAR VOLUME (BEAKER) (test zkss=498) 94.8 fL 79.4-94.8 MEAN CORPUSCULAR HEMOGLOBIN (BEAKER) (test 28.4 pg 25.6-32.2 fikl=648) MEAN CORPUSCULAR HEMOGLOBIN CONC (BEAKER) (test 29.9 GM/DL 32.2-35.5 crwr=843) RED CELL DISTRIBUTION WIDTH (BEAKER) (test 14.8 % 11.7-14.4 bwni=477) PLATELET COUNT (BEAKER) (test oyhq=337) 266 K/CU MM 150-450 MEAN PLATELET VOLUME (BEAKER) (test wjcn=900) 10.8 fL 9.4-12.3 NUCLEATED RED BLOOD CELLS (BEAKER) (test 0 /100 WBC 0-0 fqrj=965) NEUTROPHILS RELATIVE PERCENT (BEAKER) (test 79 % nhmh=512) LYMPHOCYTES RELATIVE PERCENT (BEAKER) (test 8 % gvij=910) MONOCYTES RELATIVE PERCENT (BEAKER) (test 7 % kxhp=265) EOSINOPHILS RELATIVE PERCENT (BEAKER) (test 2 % tzje=885) BASOPHILS RELATIVE PERCENT (BEAKER) (test 1 % klsz=259) NEUTROPHILS ABSOLUTE COUNT (BEAKER) (test 9.09 K/ L 1.56-6.13 vgaj=664) LYMPHOCYTES ABSOLUTE COUNT (BEAKER) (test 0.90 K/ L 1.18-3.74 vlvh=112) MONOCYTES ABSOLUTE COUNT (BEAKER) (test 0.76 K/ L 0.24-0.36 jcgj=665) EOSINOPHILS ABSOLUTE COUNT (BEAKER) (test 0.27 K/ L 0.04-0.36 rnyp=845) BASOPHILS ABSOLUTE COUNT (BEAKER) (test 0.08 K/ L 0.01-0.08 wrzn=180) IMMATURE GRANULOCYTES-RELATIVE PERCENT (BEAKER) 4 % 0-1 (test hzdy=3631) POCT-GLUCOSE [id number] 21:18:00 Test Item Value Reference Range Comments POC-GLUCOSE METER (BEAKER) 147 mg/dL 70-110 TESTED AT [facility] [address] (test wbam=7115) [facility] [address] TISSUE [id number] 15:55:00Surgical Pathology Report Case: [id number] Authorizing Provider: Billy Mcmanus, Collected: 03/18/2018 1046 OrderingLocation: [facility] Received: 2017 1131 [employer] [employer] Pathologist: Chris Caraballo MD Specimen: Plaque, AORTIC PLAQUE AORTA, ATHERECTOMY:CALCIFIC ATHEROSCLEROTIC PLAQUE Signing Pathologist Direct Phone Line: [phone] by Chris Caraballo MD on 03/25/2018 at 3:55 [id number]; [id number] plaque Received in saline labeled "plaque", description "aortic plaque" is a 4.5 x 3.5 x 0.6 cm aggregate of felix-white to yellow-panchal, rubbery, calcified fibrous tissue.Cinder Crane Operator sections are submitted in cassette A1 for decalcification. DB/ew PerformedPOTASSIUM-STAT [id number] 11:04:00 Test Item Value Reference Range Comments POTASSIUM (BEAKER) (test hkgw=768) 3.0 meq/L 3.6-5.5 HGB/HCT (H&H) - STAT [id number] 11:04:00 Test Item Value Reference Range Comments HEMOGLOBIN (BEAKER) (test kwse=697) 11.2 g/dL 12.0-15.0 HEMATOCRIT (BEAKER) (test husn=131) 33.0 % 36.0-45.0 GLUCOSE-STAT [id number] 11:04:00 Test Item Value Reference Range Comments GLUCOSE RANDOM (BEAKER) (test otuq=163) 116 mg/dL 70-110 POCT-GLUCOSE [id number] 07:01:00 Test Item Value Reference Range Comments POC-GLUCOSE METER (BEAKER) 91 mg/dL 70-110 TESTED AT [facility] [address] (test rqji=9991) [facility] [address] BASIC METABOLIC [id number] 05:12:00 Test Item Value Reference Range Comments SODIUM (BEAKER) (test 140 meq/L 136-145 qnbq=293) POTASSIUM (BEAKER) (test 4.0 meq/L 3.5-5.1 cqfl=152) CHLORIDE (BEAKER) (test 100 meq/L 98-107 soxa=893) CO2 (BEAKER) (test 34 meq/L 22-29 dyxl=670) BLOOD UREA NITROGEN 14 mg/dL 7-21 (BEAKER) (test qhcv=932) CREATININE (BEAKER) (test 0.75 mg/dL 0.57-1.25 ygac=891) GLUCOSE RANDOM (BEAKER) 100 mg/dL 70-105 (test yzup=361) CALCIUM (BEAKER) (test 9.2 mg/dL 8.4-10.2 wdux=518) EGFR (BEAKER) (test 74 mL/min/1.73 sq m ESTIMATED GFR IS NOT fwht=5683) ACCURATE CREATININE CLEARANCE IN PREDICTING GLOMERULAR FILTRATION RATE. ESTIMATED GFR IS NOT APPLICABLE FOR DIALYSIS PATIENTS. CBC W/PLT COUNT & AUTO [id number] 04:36:00 Test Item Value Reference Range Comments WHITE BLOOD CELL COUNT (BEAKER) (test kfmh=680) 11.1 K/ L 3.5-10.5 RED BLOOD CELL COUNT (BEAKER) (test rrpr=518) 3.57 M/ L 3.93-5.22 HEMOGLOBIN (BEAKER) (test kquc=473) 10.3 GM/DL 11.2-15.7 HEMATOCRIT (BEAKER) (test ohsm=477) 33.8 % 34.1-44.9 MEAN CORPUSCULAR VOLUME (BEAKER) (test rlpf=278) 94.7 fL 79.4-94.8 MEAN CORPUSCULAR HEMOGLOBIN (BEAKER) (test 28.9 pg 25.6-32.2 msvf=647) MEAN CORPUSCULAR HEMOGLOBIN CONC (BEAKER) (test 30.5 GM/DL 32.2-35.5 ihti=356) RED CELL DISTRIBUTION WIDTH (BEAKER) (test 14.6 % 11.7-14.4 lphq=326) PLATELET COUNT (BEAKER) (test mdjv=802) 244 K/CU MM 150-450 MEAN PLATELET VOLUME (BEAKER) (test mnoi=261) 10.7 fL 9.4-12.3 NUCLEATED RED BLOOD CELLS (BEAKER) (test 1 /100 WBC 0-0 gbex=387) NEUTROPHILS RELATIVE PERCENT (BEAKER) (test 72 % cnjc=429) LYMPHOCYTES RELATIVE PERCENT (BEAKER) (test 13 % quxh=503) MONOCYTES RELATIVE PERCENT (BEAKER) (test 9 % fvya=567) EOSINOPHILS RELATIVE PERCENT (BEAKER) (test 2 % tctc=729) BASOPHILS RELATIVE PERCENT (BEAKER) (test 1 % xyra=716) NEUTROPHILS ABSOLUTE COUNT (BEAKER) (test 7.91 K/ L 1.56-6.13 qfmf=098) LYMPHOCYTES ABSOLUTE COUNT (BEAKER) (test 1.45 K/ L 1.18-3.74 wpws=046) MONOCYTES ABSOLUTE COUNT (BEAKER) (test 1.00 K/ L 0.24-0.36 urza=589) EOSINOPHILS ABSOLUTE COUNT (BEAKER) (test 0.21 K/ L 0.04-0.36 fqqn=452) BASOPHILS ABSOLUTE COUNT (BEAKER) (test 0.07 K/ L 0.01-0.08 lcqo=077) IMMATURE GRANULOCYTES-RELATIVE PERCENT (BEAKER) 4 % 0-1 (test iabx=3061) POCT-GLUCOSE [id number] 21:06:00 Test Item Value Reference Range Comments POC-GLUCOSE METER (BEAKER) 152 mg/dL 70-110 TESTED AT [facility] [address] [place] (test rxqa=7830) [facility] [address] POCT-GLUCOSE [id number] 17:43:00 Test Item Value Reference Range Comments POC-GLUCOSE METER (BEAKER) 155 mg/dL 70-110 TESTED AT [address] (test qdjf=8848) [facility] [address] POCT-GLUCOSE [id number] 12:30:00 Test Item Value Reference Range Comments POC-GLUCOSE METER (BEAKER) 167 mg/dL 70-110 TESTED AT [address] (test jfiz=5670) [facility] [address] POCT-GLUCOSE [id number] 07:13:00 Test Item Value Reference Range Comments POC-GLUCOSE METER (BEAKER) 111 mg/dL 70-110 TESTED AT [address] (test ibjq=4443) [facility] [address] BASIC METABOLIC [id number] 05:33:00 Test Item Value Reference Range Comments SODIUM (BEAKER) (test 139 meq/L 136-145 laig=931) POTASSIUM (BEAKER) (test 3.9 meq/L 3.5-5.1 kusm=228) CHLORIDE (BEAKER) (test 102 meq/L 98-107 xbrc=543) CO2 (BEAKER) (test 29 meq/L 22-29 wpff=023) BLOOD UREA NITROGEN 17 mg/dL 7-21 (BEAKER) (test kfki=901) CREATININE (BEAKER) (test 0.72 mg/dL 0.57-1.25 ljfb=945) GLUCOSE RANDOM (BEAKER) 114 mg/dL 70-105 (test rvzp=428) CALCIUM (BEAKER) (test 8.8 mg/dL 8.4-10.2 uakd=649) EGFR (BEAKER) (test 77 mL/min/1.73 sq m ESTIMATED GFR IS NOT pxet=7282) ACCURATE CREATININE CLEARANCE IN PREDICTING GLOMERULAR FILTRATION RATE. ESTIMATED GFR IS NOT APPLICABLE FOR DIALYSIS PATIENTS. CBC W/PLT COUNT & AUTO [id number] 04:58:00 Test Item Value Reference Range Comments WHITE BLOOD CELL COUNT (BEAKER) (test ghib=939) 9.9 K/ L 3.5-10.5 RED BLOOD CELL COUNT (BEAKER) (test bsbc=609) 3.54 M/ L 3.93-5.22 HEMOGLOBIN (BEAKER) (test mmgc=358) 10.2 GM/DL 11.2-15.7 HEMATOCRIT (BEAKER) (test oiwf=645) 33.7 % 34.1-44.9 MEAN CORPUSCULAR VOLUME (BEAKER) (test grap=743) 95.2 fL 79.4-94.8 MEAN CORPUSCULAR HEMOGLOBIN (BEAKER) (test 28.8 pg 25.6-32.2 wmmo=397) MEAN CORPUSCULAR HEMOGLOBIN CONC (BEAKER) (test 30.3 GM/DL 32.2-35.5 nriq=959) RED CELL DISTRIBUTION WIDTH (BEAKER) (test 14.4 % 11.7-14.4 wjpn=771) PLATELET COUNT (BEAKER) (test qacf=511) 226 K/CU MM 150-450 MEAN PLATELET VOLUME (BEAKER) (test tnso=443) 11.2 fL 9.4-12.3 NUCLEATED RED BLOOD CELLS (BEAKER) (test 0 /100 WBC 0-0 antp=850) NEUTROPHILS RELATIVE PERCENT (BEAKER) (test 73 % myyy=943) LYMPHOCYTES RELATIVE PERCENT (BEAKER) (test 14 % lxuk=274) MONOCYTES RELATIVE PERCENT (BEAKER) (test 9 % hwbv=730) EOSINOPHILS RELATIVE PERCENT (BEAKER) (test 2 % cbsi=257) BASOPHILS RELATIVE PERCENT (BEAKER) (test 1 % ooxp=486) NEUTROPHILS ABSOLUTE COUNT (BEAKER) (test 7.15 K/ L 1.56-6.13 kufb=968) LYMPHOCYTES ABSOLUTE COUNT (BEAKER) (test 1.36 K/ L 1.18-3.74 kokv=534) MONOCYTES ABSOLUTE COUNT (BEAKER) (test 0.87 K/ L 0.24-0.36 fuxq=506) EOSINOPHILS ABSOLUTE COUNT (BEAKER) (test 0.18 K/ L 0.04-0.36 enhi=922) BASOPHILS ABSOLUTE COUNT (BEAKER) (test 0.07 K/ L 0.01-0.08 yeql=552) IMMATURE GRANULOCYTES-RELATIVE PERCENT (BEAKER) 2 % 0-1 (test ojnj=7551) POCT-GLUCOSE [id number] 20:59:00 Test Item Value Reference Range Comments POC-GLUCOSE METER (BEAKER) 178 mg/dL 70-110 TESTED AT [address] (test xwii=1185) [facility] [address] POCT-GLUCOSE [id number] 18:18:00 Test Item Value Reference Range Comments POC-GLUCOSE METER (BEAKER) 137 mg/dL 70-110 TESTED AT [address] (test npmn=8212) [place] [address] RAD, SPINE, LUMBAR, COMPLETE (MIN 4 VIEWS)2018-03-23 16:25:00Reason for exam:-& gt;acute back painFINAL REPORT Lumbar spine. HISTORY: Acute back pain. COMPARISON STUDY: None available. FINDINGS: Six views of the lumbar spine demonstrate no evidence of fracture, malalignment or soft tissue swelling. A levoscoliosis is seen. Moderate changes are noted. Extensive atherosclerosis is seen. Clips project over the abdomen and pelvis. IMPRESSION: Degenerative changes. No definite acute abnormality. Signed: Jomar Gillette MDReport Verified Date/Time: 03/23/2018 16:25:16 Reading Location: [address] Ortho Consult Reading Room SPUTUM CULTURE + GRAM [id number] 10:41:00 Test Item Value Reference Range Comments CULTURE (BEAKER) (test 3+ Normal respiratory anu clxm=8025) present GRAM STAIN RESULT (BEAKER) <1+ WBCs (test ydde=9689) GRAM STAIN RESULT (BEAKER) 10-15 epithelial cells (test xubj=15653) GRAM STAIN RESULT (BEAKER) 1+ gram positive cocci in pairs (test yxwx=58337) POCT-GLUCOSE [id number] 08:09:00 Test Item Value Reference Range Comments POC-GLUCOSE METER (BEAKER) 94 mg/dL 70-110 TESTED AT [address] (test qfjz=3604) [place] [id number] BASIC METABOLIC [id number] 06:23:00 Test Item Value Reference Range Comments SODIUM (BEAKER) (test 142 meq/L 136-145 jtyp=758) POTASSIUM (BEAKER) (test 3.3 meq/L 3.5-5.1 jiti=169) CHLORIDE (BEAKER) (test 102 meq/L 98-107 uncz=855) CO2 (BEAKER) (test 27 meq/L 22-29 jkom=071) BLOOD UREA NITROGEN 17 mg/dL 7-21 (BEAKER) (test zshe=617) CREATININE (BEAKER) (test 0.69 mg/dL 0.57-1.25 jffa=782) GLUCOSE RANDOM (BEAKER) 81 mg/dL 70-105 (test dbgz=891) CALCIUM (BEAKER) (test 9.4 mg/dL 8.4-10.2 pebb=947) EGFR (BEAKER) (test 81 mL/min/1.73 sq m ESTIMATED GFR IS NOT ryje=0104) ACCURATE CREATININE CLEARANCE IN PREDICTING GLOMERULAR FILTRATION RATE. ESTIMATED GFR IS NOT APPLICABLE FOR DIALYSIS PATIENTS. CBC W/PLT COUNT & AUTO [id number] 06:00:00 Test Item Value Reference Range Comments WHITE BLOOD CELL COUNT (BEAKER) (test svwj=610) 8.2 K/ L 3.5-10.5 RED BLOOD CELL COUNT (BEAKER) (test aqbm=705) 4.03 M/ L 3.93-5.22 HEMOGLOBIN (BEAKER) (test wfiw=982) 11.5 GM/DL 11.2-15.7 HEMATOCRIT (BEAKER) (test fnvj=798) 38.6 % 34.1-44.9 MEAN CORPUSCULAR VOLUME (BEAKER) (test kfoh=456) 95.8 fL 79.4-94.8 MEAN CORPUSCULAR HEMOGLOBIN (BEAKER) (test 28.5 pg 25.6-32.2 ghbn=235) MEAN CORPUSCULAR HEMOGLOBIN CONC (BEAKER) (test 29.8 GM/DL 32.2-35.5 ulor=784) RED CELL DISTRIBUTION WIDTH (BEAKER) (test 14.5 % 11.7-14.4 pylg=694) PLATELET COUNT (BEAKER) (test dghl=600) 214 K/CU MM 150-450 MEAN PLATELET VOLUME (BEAKER) (test retj=432) 11.5 fL 9.4-12.3 NUCLEATED RED BLOOD CELLS (BEAKER) (test 0 /100 WBC 0-0 uync=460) NEUTROPHILS RELATIVE PERCENT (BEAKER) (test 71 % dpqq=596) LYMPHOCYTES RELATIVE PERCENT (BEAKER) (test 17 % jusy=758) MONOCYTES RELATIVE PERCENT (BEAKER) (test 8 % eopc=409) EOSINOPHILS RELATIVE PERCENT (BEAKER) (test 3 % oswm=693) BASOPHILS RELATIVE PERCENT (BEAKER) (test 1 % rkup=735) NEUTROPHILS ABSOLUTE COUNT (BEAKER) (test 5.84 K/ L 1.56-6.13 vcjj=017) LYMPHOCYTES ABSOLUTE COUNT (BEAKER) (test 1.36 K/ L 1.18-3.74 raes=374) MONOCYTES ABSOLUTE COUNT (BEAKER) (test 0.63 K/ L 0.24-0.36 cfvc=844) EOSINOPHILS ABSOLUTE COUNT (BEAKER) (test 0.24 K/ L 0.04-0.36 whor=330) BASOPHILS ABSOLUTE COUNT (BEAKER) (test 0.07 K/ L 0.01-0.08 phvr=842) IMMATURE GRANULOCYTES-RELATIVE PERCENT (BEAKER) 1 % 0-1 (test llyr=1038) POCT-GLUCOSE [id number] 21:32:00 Test Item Value Reference Range Comments POC-GLUCOSE METER (BEAKER) 238 mg/dL 70-110 TESTED AT [address] (test utvg=5572) [place] [address] POCT-GLUCOSE [id number] 12:11:00 Test Item Value Reference Range Comments POC-GLUCOSE METER (BEAKER) 102 mg/dL 70-110 TESTED AT [address] (test qyma=5783) [place] [address] POCT-GLUCOSE [id number] 07:49:00 Test Item Value Reference Range Comments POC-GLUCOSE METER (BEAKER) 93 mg/dL 70-110 TESTED AT [address] (test ocwa=6486) [place] [id number] BASIC METABOLIC [id number] 06:14:00 Test Item Value Reference Range Comments SODIUM (BEAKER) (test 142 meq/L 136-145 yjln=553) POTASSIUM (BEAKER) (test 4.6 meq/L 3.5-5.1 cjwu=325) CHLORIDE (BEAKER) (test 103 meq/L 98-107 esla=920) CO2 (BEAKER) (test 32 meq/L 22-29 pads=366) BLOOD UREA NITROGEN 18 mg/dL 7-21 (BEAKER) (test rsxm=707) CREATININE (BEAKER) (test 0.73 mg/dL 0.57-1.25 cexb=061) GLUCOSE RANDOM (BEAKER) 78 mg/dL 70-105 (test lkpz=210) CALCIUM (BEAKER) (test 9.3 mg/dL 8.4-10.2 zvdc=612) EGFR (BEAKER) (test 76 mL/min/1.73 sq m ESTIMATED GFR IS NOT znkr=2636) ACCURATE CREATININE CLEARANCE IN PREDICTING GLOMERULAR FILTRATION RATE. ESTIMATED GFR IS NOT APPLICABLE FOR DIALYSIS PATIENTS. CBC W/PLT COUNT & AUTO [id number] 05:44:00 Test Item Value Reference Range Comments WHITE BLOOD CELL COUNT (BEAKER) (test vzbq=466) 9.0 K/ L 3.5-10.5 RED BLOOD CELL COUNT (BEAKER) (test bevp=840) 3.81 M/ L 3.93-5.22 HEMOGLOBIN (BEAKER) (test cuki=660) 10.8 GM/DL 11.2-15.7 HEMATOCRIT (BEAKER) (test hkme=880) 36.8 % 34.1-44.9 MEAN CORPUSCULAR VOLUME (BEAKER) (test fqxs=179) 96.6 fL 79.4-94.8 MEAN CORPUSCULAR HEMOGLOBIN (BEAKER) (test 28.3 pg 25.6-32.2 kwww=526) MEAN CORPUSCULAR HEMOGLOBIN CONC (BEAKER) (test 29.3 GM/DL 32.2-35.5 ttwz=662) RED CELL DISTRIBUTION WIDTH (BEAKER) (test 14.7 % 11.7-14.4 iijb=347) PLATELET COUNT (BEAKER) (test zvlr=936) 178 K/CU MM 150-450 MEAN PLATELET VOLUME (BEAKER) (test vhgk=985) 11.6 fL 9.4-12.3 NUCLEATED RED BLOOD CELLS (BEAKER) (test 0 /100 WBC 0-0 dxyc=890) NEUTROPHILS RELATIVE PERCENT (BEAKER) (test 75 % fmdp=666) LYMPHOCYTES RELATIVE PERCENT (BEAKER) (test 14 % hcxn=893) MONOCYTES RELATIVE PERCENT (BEAKER) (test 7 % xegm=581) EOSINOPHILS RELATIVE PERCENT (BEAKER) (test 3 % jcla=530) BASOPHILS RELATIVE PERCENT (BEAKER) (test 1 % fvtf=840) NEUTROPHILS ABSOLUTE COUNT (BEAKER) (test 6.69 K/ L 1.56-6.13 qdit=467) LYMPHOCYTES ABSOLUTE COUNT (BEAKER) (test 1.29 K/ L 1.18-3.74 hfne=376) MONOCYTES ABSOLUTE COUNT (BEAKER) (test 0.65 K/ L 0.24-0.36 oxln=138) EOSINOPHILS ABSOLUTE COUNT (BEAKER) (test 0.22 K/ L 0.04-0.36 iqhi=589) BASOPHILS ABSOLUTE COUNT (BEAKER) (test 0.05 K/ L 0.01-0.08 tqdv=438) IMMATURE GRANULOCYTES-RELATIVE PERCENT (BEAKER) 1 % 0-1 (test tojn=5315) POCT-GLUCOSE [id number] 21:06:00 Test Item Value Reference Range Comments POC-GLUCOSE METER (BEAKER) 116 mg/dL 70-110 TESTED AT [address] (test ctjz=8876) [facility] [address] POCT-GLUCOSE [id number] 16:33:00 Test Item Value Reference Range Comments POC-GLUCOSE METER (BEAKER) 138 mg/dL 70-110 TESTED AT [address] (test eyod=8326) [facility] [address] POCT-GLUCOSE [id number] 12:15:00 Test Item Value Reference Range Comments POC-GLUCOSE METER (BEAKER) 150 mg/dL 70-110 TESTED AT [address] (test bowk=0306) [facility] [address] POCT-GLUCOSE [id number] 09:03:00 Test Item Value Reference Range Comments POC-GLUCOSE METER (BEAKER) 101 mg/dL 70-110 TESTED AT [address] (test dbye=8459) [facility] [address] RAD, CHEST, 1 VIEW, NON [id number] 08:03:00Reason for exam:->post cardiovascular procedureShould this be performed at the bedside?->YesFINAL REPORT HISTORY : post cardiovascular procedure. Comparison: [...] aspiration cannot be excluded. Signed: Freya Turcios Verified Date/ Time: 03/21/2018 08:03:21 Reading Location: [facility] Diagnostic Imaging Reading Room - [place] [id number] Electronically signed by: FREYA TURCIOS M.D. on 2017 08:03 [id number] 04:37:00 Test Item Value Reference Range Comments MAGNESIUM (BEAKER) (test 1.9 mg/dL 1.6-2.6 Specimen slightly hemolyzed bfzl=602) BASIC METABOLIC [id number] 04:37:00 Test Item Value Reference Range Comments SODIUM (BEAKER) (test 141 meq/L 136-145 zcvy=907) POTASSIUM (BEAKER) (test 4.0 meq/L 3.5-5.1 Specimen slightly ltpb=254) hemolyzed CHLORIDE (BEAKER) (test 104 meq/L 98-107 vets=806) CO2 (BEAKER) (test 27 meq/L 22-29 mxtp=663) BLOOD UREA NITROGEN 28 mg/dL 7-21 (BEAKER) (test sjni=076) CREATININE (BEAKER) (test 0.81 mg/dL 0.57-1.25 Specimen slightly dpgi=654) hemolyzed GLUCOSE RANDOM (BEAKER) 124 mg/dL 70-105 (test vogy=424) CALCIUM (BEAKER) (test 9.8 mg/dL 8.4-10.2 nuok=790) EGFR (BEAKER) (test 68 mL/min/1.73 sq m ESTIMATED GFR IS NOT ykdg=5991) ACCURATE CREATININE CLEARANCE IN PREDICTING GLOMERULAR FILTRATION RATE. ESTIMATED GFR IS NOT APPLICABLE FOR DIALYSIS PATIENTS. CBC W/PLT COUNT & AUTO [id number] 04:27:00 Test Item Value Reference Range Comments WHITE BLOOD CELL COUNT (BEAKER) (test mcrs=961) 13.9 K/ L 3.5-10.5 RED BLOOD CELL COUNT (BEAKER) (test shqw=912) 3.73 M/ L 3.93-5.22 HEMOGLOBIN (BEAKER) (test aiuo=190) 11.1 GM/DL 11.2-15.7 HEMATOCRIT (BEAKER) (test ickz=939) 35.4 % 34.1-44.9 MEAN CORPUSCULAR VOLUME (BEAKER) (test udbb=946) 94.9 fL 79.4-94.8 MEAN CORPUSCULAR HEMOGLOBIN (BEAKER) (test 29.8 pg 25.6-32.2 hrme=424) MEAN CORPUSCULAR HEMOGLOBIN CONC (BEAKER) (test 31.4 GM/DL 32.2-35.5 jpag=621) RED CELL DISTRIBUTION WIDTH (BEAKER) (test 14.8 % 11.7-14.4 nqvj=633) PLATELET COUNT (BEAKER) (test yhkn=526) 173 K/CU MM 150-450 MEAN PLATELET VOLUME (BEAKER) (test aicq=536) 11.8 fL 9.4-12.3 NUCLEATED RED BLOOD CELLS (BEAKER) (test 0 /100 WBC 0-0 rxva=359) NEUTROPHILS RELATIVE PERCENT (BEAKER) (test 90 % ifxi=498) LYMPHOCYTES RELATIVE PERCENT (BEAKER) (test 5 % zlqu=272) MONOCYTES RELATIVE PERCENT (BEAKER) (test 4 % vtdh=766) EOSINOPHILS RELATIVE PERCENT (BEAKER) (test 1 % peow=410) BASOPHILS RELATIVE PERCENT (BEAKER) (test 0 % qucw=049) NEUTROPHILS ABSOLUTE COUNT (BEAKER) (test 12.44 K/ L 1.56-6.13 tufn=207) LYMPHOCYTES ABSOLUTE COUNT (BEAKER) (test 0.67 K/ L 1.18-3.74 agnh=418) MONOCYTES ABSOLUTE COUNT (BEAKER) (test 0.58 K/ L 0.24-0.36 xush=940) EOSINOPHILS ABSOLUTE COUNT (BEAKER) (test 0.07 K/ L 0.04-0.36 ttju=621) BASOPHILS ABSOLUTE COUNT (BEAKER) (test 0.04 K/ L 0.01-0.08 ndsy=867) IMMATURE GRANULOCYTES-RELATIVE PERCENT (BEAKER) 1 % 0-1 (test gyed=4190) POCT-GLUCOSE [id number] 20:59:00 Test Item Value Reference Range Comments POC-GLUCOSE METER (BEAKER) 111 mg/dL 70-110 TESTED AT [address] (test vemh=5754) [facility] [address] POCT-GLUCOSE [id number] 18:33:00 Test Item Value Reference Range Comments POC-GLUCOSE METER (BEAKER) 101 mg/dL 70-110 TESTED AT [address] (test xshs=2447) [facility] [address] POCT-GLUCOSE [id number] 16:33:00 Test Item Value Reference Range Comments POC-GLUCOSE METER (BEAKER) 128 mg/dL 70-110 TESTED AT [address] (test icxy=5647) [facility] [address] POCT-GLUCOSE [id number] 11:35:00 Test Item Value Reference Range Comments POC-GLUCOSE METER (BEAKER) 129 mg/dL 70-110 TESTED AT [address] (test zzmx=3588) [facility] [address] HEMOGLOBIN [id number] 08:58:00 Test Item Value Reference Range Comments HEMOGLOBIN A1C (BEAKER) (test uzsm=072) 6.0 % 4.3-6.1 RAD, CHEST, 1 VIEW, NON [id number] 08:06:00Reason for exam:->post cardiovascular procedureShould this be performed at the bedside?->YesFINAL REPORT CLINICAL HISTORY: post cardiovascular procedure TECHNIQUE: 1 view of the chest. COMPARISON: 03/19/2018 IMPRESSION: An NGT is again seen. The right central line has been removed. There are no focal airspace opacities or significant appearing effusions. The cardiomediastinal silhouette is magnified by technique with a pacemaker. Signed: Alia Garrett [facility] Verified Date/Time: 03/20/2018 08:06:53 Reading Location: [facility] Radiology Reading Room POCT-GLUCOSE [id number] 06:21:00 Test Item Value Reference Range Comments POC-GLUCOSE METER (BEAKER) 133 mg/dL 70-110 TESTED AT [address] (test ljyp=2883) [facility] [address] [id number] 06:00:00 Test Item Value Reference Range Comments MAGNESIUM (BEAKER) (test fuac=143) 2.0 mg/dL 1.6-2.6 BASIC METABOLIC [id number] 06:00:00 Test Item Value Reference Range Comments SODIUM (BEAKER) (test 144 meq/L 136-145 keka=016) POTASSIUM (BEAKER) (test 3.9 meq/L 3.5-5.1 vuub=529) CHLORIDE (BEAKER) (test 107 meq/L 98-107 daoq=844) CO2 (BEAKER) (test 27 meq/L 22-29 tsua=630) BLOOD UREA NITROGEN 36 mg/dL 7-21 (BEAKER) (test onao=286) CREATININE (BEAKER) (test 0.99 mg/dL 0.57-1.25 dchs=139) GLUCOSE RANDOM (BEAKER) 123 mg/dL 70-105 (test cdeh=298) CALCIUM (BEAKER) (test 9.3 mg/dL 8.4-10.2 ecck=315) EGFR (BEAKER) (test 54 mL/min/1.73 sq m ESTIMATED GFR IS NOT lyro=6317) ACCURATE CREATININE CLEARANCE IN PREDICTING GLOMERULAR FILTRATION RATE. ESTIMATED GFR IS NOT APPLICABLE FOR DIALYSIS PATIENTS. CBC W/PLT COUNT & AUTO [id number] 05:39:00 Test Item Value Reference Range Comments WHITE BLOOD CELL COUNT (BEAKER) (test bbwo=300) 16.0 K/ L 3.5-10.5 RED BLOOD CELL COUNT (BEAKER) (test yrfz=123) 4.19 M/ L 3.93-5.22 HEMOGLOBIN (BEAKER) (test dhhf=450) 12.0 GM/DL 11.2-15.7 HEMATOCRIT (BEAKER) (test pbax=711) 40.1 % 34.1-44.9 MEAN CORPUSCULAR VOLUME (BEAKER) (test soyw=486) 95.7 fL 79.4-94.8 MEAN CORPUSCULAR HEMOGLOBIN (BEAKER) (test 28.6 pg 25.6-32.2 gugw=230) MEAN CORPUSCULAR HEMOGLOBIN CONC (BEAKER) (test 29.9 GM/DL 32.2-35.5 zyvb=675) RED CELL DISTRIBUTION WIDTH (BEAKER) (test 14.8 % 11.7-14.4 aowc=839) PLATELET COUNT (BEAKER) (test fvjx=501) 166 K/CU MM 150-450 MEAN PLATELET VOLUME (BEAKER) (test vuoz=505) 11.6 fL 9.4-12.3 NUCLEATED RED BLOOD CELLS (BEAKER) (test 0 /100 WBC 0-0 zpqf=577) NEUTROPHILS RELATIVE PERCENT (BEAKER) (test 90 % kayu=596) LYMPHOCYTES RELATIVE PERCENT (BEAKER) (test 4 % ocge=416) MONOCYTES RELATIVE PERCENT (BEAKER) (test 4 % molp=730) EOSINOPHILS RELATIVE PERCENT (BEAKER) (test 0 % qxrv=970) BASOPHILS RELATIVE PERCENT (BEAKER) (test 0 % ctii=274) NEUTROPHILS ABSOLUTE COUNT (BEAKER) (test 14.45 K/ L 1.56-6.13 mgsd=417) LYMPHOCYTES ABSOLUTE COUNT (BEAKER) (test 0.66 K/ L 1.18-3.74 qchp=734) MONOCYTES ABSOLUTE COUNT (BEAKER) (test 0.70 K/ L 0.24-0.36 hwpn=869) EOSINOPHILS ABSOLUTE COUNT (BEAKER) (test 0.01 K/ L 0.04-0.36 odzo=181) BASOPHILS ABSOLUTE COUNT (BEAKER) (test 0.06 K/ L 0.01-0.08 iydd=014) IMMATURE GRANULOCYTES-RELATIVE PERCENT (BEAKER) 1 % 0-1 (test xush=0238) POCT-GLUCOSE [id number] 00:24:00 Test Item Value Reference Range Comments POC-GLUCOSE METER (BEAKER) 117 mg/dL 70-110 TESTED AT [address] (test xrgi=9030) [facility] [address] POCT-GLUCOSE [id number] 17:07:00 Test Item Value Reference Range Comments POC-GLUCOSE METER (BEAKER) 132 mg/dL 70-110 TESTED AT [address] (test vhng=1356) [facility] [address] RAD, ABDOMEN/KUB, 1 VIEW [id number] 15:02:00Reason for exam:->nausea and eructationsFINAL REPORT TECHNIQUE: Supine views of the abdomen dated 03/19/2018. HISTORY:Nausea and eructation. COMPARISON: None IMPRESSION: Surgical em project over the abdomen and pelvis. An enteric tube is seen with the tip in the region of the gastric body. No air-filled, dilated loops of bowel to suggest obstruction. No free intraperitoneal air. No abnormal soft tissue mass or calcification. Degenerative changes are seen in the spine. Bones are osteopenic. Signed: Damian Glass Verified Date/Time: 03/19/2018 15:02:35 Reading Location: [facility] Radiology Reading Room POCT- GLUCOSE [id number] 10:23:00 Test Item Value Reference Range Comments POC-GLUCOSE METER (BEAKER) 111 mg/dL 70-110 TESTED AT [address] (test bmfy=0372) [facility] [address] RAD, CHEST, 1 VIEW, NON [id number] 08:26:00Reason for exam:->post cardiovascular procedureShould this be performed at the bedside?->YesFINAL REPORT CLINICAL HISTORY: post cardiovascular procedure TECHNIQUE: 1 view of the chest. COMPARISON: 03/18/2018 IMPRESSION: The ETT has been removed. The right central line and nasogastric tube remain. Bibasilar atelectasis is seen with trace bilateral pleural effusions. The cardiomediastinal silhouette is magnified by technique with a pacemaker. Signed : Alia Garrett [facility] Verified Date/Time: 03/19/2018 08:26:26 Reading Location: [facility] Radiology Reading Room POCT-GLUCOSE [id number] 06:09:00 Test Item Value Reference Range Comments POC-GLUCOSE METER (BEAKER) 120 mg/dL 70-110 TESTED AT [address] (test bfay=2423) [place] [id number] POCT-GLUCOSE [id number] 06:09:00 Test Item Value Reference Range Comments POC-GLUCOSE METER (BEAKER) 120 mg/dL 70-110 TESTED AT [address] (test swhv=3810) [place] [address] [id number] 04:28:00 Test Item Value Reference Range Comments MAGNESIUM (BEAKER) (test 2.2 mg/dL 1.6-2.6 Specimen slightly hemolyzed ndny=051) BASIC METABOLIC [id number] 04:28:00 Test Item Value Reference Range Comments SODIUM (BEAKER) (test 141 meq/L 136-145 dsrl=069) POTASSIUM (BEAKER) (test 3.8 meq/L 3.5-5.1 Specimen slightly fslx=163) hemolyzed CHLORIDE (BEAKER) (test 109 meq/L 98-107 xlgl=995) CO2 (BEAKER) (test 24 meq/L 22-29 lano=359) BLOOD UREA NITROGEN 30 mg/dL 7-21 (BEAKER) (test ieuj=574) CREATININE (BEAKER) (test 0.86 mg/dL 0.57-1.25 Specimen slightly kkap=373) hemolyzed GLUCOSE RANDOM (BEAKER) 119 mg/dL 70-105 (test pzrw=642) CALCIUM (BEAKER) (test 8.9 mg/dL 8.4-10.2 uqfz=585) EGFR (BEAKER) (test 63 mL/min/1.73 sq m ESTIMATED GFR IS NOT cmhz=8881) ACCURATE CREATININE CLEARANCE IN PREDICTING GLOMERULAR FILTRATION RATE. ESTIMATED GFR IS NOT APPLICABLE FOR DIALYSIS PATIENTS. CBC W/PLT COUNT & AUTO [id number] 04:19:00 Test Item Value Reference Range Comments WHITE BLOOD CELL COUNT (BEAKER) (test bxgu=786) 12.8 K/ L 3.5-10.5 RED BLOOD CELL COUNT (BEAKER) (test lfcn=754) 4.54 M/ L 3.93-5.22 HEMOGLOBIN (BEAKER) (test cnzo=512) 12.9 GM/DL 11.2-15.7 HEMATOCRIT (BEAKER) (test bpbg=744) 43.3 % 34.1-44.9 MEAN CORPUSCULAR VOLUME (BEAKER) (test ygvd=621) 95.4 fL 79.4-94.8 MEAN CORPUSCULAR HEMOGLOBIN (BEAKER) (test 28.4 pg 25.6-32.2 zfto=436) MEAN CORPUSCULAR HEMOGLOBIN CONC (BEAKER) (test 29.8 GM/DL 32.2-35.5 fwkb=479) RED CELL DISTRIBUTION WIDTH (BEAKER) (test 14.8 % 11.7-14.4 vtdr=221) PLATELET COUNT (BEAKER) (test hmjr=103) 207 K/CU MM 150-450 MEAN PLATELET VOLUME (BEAKER) (test sxkw=884) 11.6 fL 9.4-12.3 NUCLEATED RED BLOOD CELLS (BEAKER) (test 0 /100 WBC 0-0 pnql=708) NEUTROPHILS RELATIVE PERCENT (BEAKER) (test 87 % xlza=955) LYMPHOCYTES RELATIVE PERCENT (BEAKER) (test 6 % styp=614) MONOCYTES RELATIVE PERCENT (BEAKER) (test 6 % bxix=116) EOSINOPHILS RELATIVE PERCENT (BEAKER) (test 0 % ejvx=168) BASOPHILS RELATIVE PERCENT (BEAKER) (test 1 % wvwj=715) NEUTROPHILS ABSOLUTE COUNT (BEAKER) (test 11.16 K/ L 1.56-6.13 hhdy=564) LYMPHOCYTES ABSOLUTE COUNT (BEAKER) (test 0.71 K/ L 1.18-3.74 nrmr=629) MONOCYTES ABSOLUTE COUNT (BEAKER) (test 0.74 K/ L 0.24-0.36 bjgu=219) EOSINOPHILS ABSOLUTE COUNT (BEAKER) (test 0.02 K/ L 0.04-0.36 jgyp=616) BASOPHILS ABSOLUTE COUNT (BEAKER) (test 0.07 K/ L 0.01-0.08 wdac=894) IMMATURE GRANULOCYTES-RELATIVE PERCENT (BEAKER) 1 % 0-1 (test gvbu=7238) BLOOD GAS, [id number] 04:01:00 Test Item Value Reference Range Comments PH ARTERIAL (BEAKER) (test ifst=397) 7.37 7.35-7.45 PCO2 ARTERIAL (BEAKER) (test lsba=117) 47 mmHg 35-45 PO2 ARTERIAL (BEAKER) (test znyf=870) 68 mmHg 80-90 O2 SATURATION ARTERIAL (BEAKER) (test cpsn=374) 92.4 % 96.0-97.0 HCO3 ARTERIAL (BEAKER) (test bdev=344) 26 mmol/L 21-29 BASE EXCESS ARTERIAL (BEAKER) (test swfd=188) 0.6 mmol/L -2.0-3.0 PATIENT TEMPERATURE (BEAKER) (test vnlk=9460) 37.4 C FIO2 (BEAKER) (test rpjb=1550) 40.0 % BLOOD GAS, [id number] 22:23:00 Test Item Value Reference Range Comments PH ARTERIAL (BEAKER) (test yxpo=622) 7.40 7.35-7.45 PCO2 ARTERIAL (BEAKER) (test swin=132) 42 mmHg 35-45 PO2 ARTERIAL (BEAKER) (test nrgg=809) 150 mmHg 80-90 O2 SATURATION ARTERIAL (BEAKER) (test ntyq=550) 98.9 % 96.0-97.0 HCO3 ARTERIAL (BEAKER) (test yfqr=217) 25 mmol/L 21-29 BASE EXCESS ARTERIAL (BEAKER) (test vqqt=068) 0.2 mmol/L -2.0-3.0 PATIENT TEMPERATURE (BEAKER) (test vtml=9641) 36.6 C FIO2 (BEAKER) (test wvtb=1154) 40.0 % GLUCOSE-STAT [id number] 22:23:00 Test Item Value Reference Range Comments GLUCOSE RANDOM (BEAKER) (test nvgt=471) 140 mg/dL 70-110 [id number] 20:01:00 Test Item Value Reference Range Comments POTASSIUM (BEAKER) (test dtfc=530) 3.7 meq/L 3.5-5.1 8 hours after PO replacement [id number] 20:01:00 Test Item Value Reference Range Comments MAGNESIUM (BEAKER) (test qvef=928) 2.2 mg/dL 1.6-2.6 8 hours after PO replacement completedBLOOD GAS, [id number] 19:27:00 Test Item Value Reference Range Comments PH ARTERIAL (BEAKER) (test fxpz=633) 7.40 7.35-7.45 PCO2 ARTERIAL (BEAKER) (test voox=831) 40 mmHg 35-45 PO2 ARTERIAL (BEAKER) (test qfuv=154) 93 mmHg 80-90 O2 SATURATION ARTERIAL (BEAKER) (test ywmq=715) 97.3 % 96.0-97.0 HCO3 ARTERIAL (BEAKER) (test egwk=701) 25 mmol/L 21-29 BASE EXCESS ARTERIAL (BEAKER) (test mrlj=869) -0.1 mmol/L -2.0-3.0 PATIENT TEMPERATURE (BEAKER) (test vmjb=7730) 36.6 C FIO2 (BEAKER) (test mfqi=9071) 40.0 % POCT-GLUCOSE [id number] 19:09:00 Test Item Value Reference Range Comments POC-GLUCOSE METER (BEAKER) 123 mg/dL 70-110 TESTED AT [address] (test qxrf=0939) [facility] [address] POCT-GLUCOSE [id number] 18:02:00 Test Item Value Reference Range Comments POC-GLUCOSE METER (BEAKER) 108 mg/dL 70-110 TESTED AT [address] (test nwuy=8656) [facility] [address] POCT-GLUCOSE [id number] 17:06:00 Test Item Value Reference Range Comments POC-GLUCOSE METER (BEAKER) 103 mg/dL 70-110 TESTED AT [address] (test btab=8414) [facility] [address] POCT-GLUCOSE [id number] 16:00:00 Test Item Value Reference Range Comments POC-GLUCOSE METER (BEAKER) 121 mg/dL 70-110 TESTED AT [facility] [address] (test udhg=0196) [facility] [address] POCT-GLUCOSE [id number] 15:45:00 Test Item Value Reference Range Comments POC-GLUCOSE METER (BEAKER) 146 mg/dL 70-110 TESTED AT [facility] [address] (test qljp=0033) [facility] [address] BLOOD GAS, [id number] 15:25:00 Test Item Value Reference Range Comments PH ARTERIAL (BEAKER) (test roqo=726) 7.33 7.35-7.45 PCO2 ARTERIAL (BEAKER) (test dore=242) 49 mmHg 35-45 PO2 ARTERIAL (BEAKER) (test rfyh=553) 84 mmHg 80-90 O2 SATURATION ARTERIAL (BEAKER) (test ulgy=923) 95.8 % 96.0-97.0 HCO3 ARTERIAL (BEAKER) (test cbun=266) 25 mmol/L 21-29 BASE EXCESS ARTERIAL (BEAKER) (test solp=779) -1.3 mmol/L -2.0-3.0 PATIENT TEMPERATURE (BEAKER) (test ziky=2916) 36.6 C FIO2 (BEAKER) (test bahg=1579) 40.0 % PLATELET AGGREGATION: FUNCTION [id number] 13:34:00 Test Item Value Reference Range Comments WEAK ADP RESULT(BEAKER) (test 63 % 60-91 hpir=5264) PLATELET FUNCTION SCREEN 60-100% indicates normal INTERP (BEAKER) (test platelet function yxqv=5874) HSUF-FZULBRQTZON-5100 (BEAKER) Teresa De León MD (electronic (test huel=7167) signature) PLATELET COUNT AGG (BEAKER) 209 K/CU MM 150-450 (test ptcb=9339) for patients on clopidogrel in past two weeksRAD, CHEST, 1 VIEW, NON [id number] 13:15:00Reason for exam:->post cardiovascular procedureShould this be performed at the bedside?->YesFINAL REPORT CLINICAL HISTORY: post cardiovascular procedure TECHNIQUE: 1 view of the chest. COMPARISON: 03/11/2018 IMPRESSION: There is an ETT projecting 4.5 cm above the pamela.There is an NGT with its tip below the diaphragm. There is a right central line in the SVC. There isno pneumothorax. There is pulmonary vascular congestion without significant appearing pleural fluid.The cardiomediastinal silhouette is magnified by technique with a pacemaker. Signed: Alia Garrett [facility] Verified Date/Time: 03/18/2018 13:15:44 Reading Location: [place] [id number] Consult Reading Room [id number] 13:04:00 Test Item Value Reference Range Comments MAGNESIUM (BEAKER) (test lisb=416) 1.8 mg/dL 1.6-2.6 BASIC METABOLIC [id number] 13:04:00 Test Item Value Reference Range Comments SODIUM (BEAKER) (test 140 meq/L 136-145 cggn=941) POTASSIUM (BEAKER) (test 3.0 meq/L 3.5-5.1 imhm=828) CHLORIDE (BEAKER) (test 109 meq/L 98-107 obba=664) CO2 (BEAKER) (test 23 meq/L 22-29 daie=065) BLOOD UREA NITROGEN 29 mg/dL 7-21 (BEAKER) (test lmdd=650) CREATININE (BEAKER) (test 0.89 mg/dL 0.57-1.25 qxpt=188) GLUCOSE RANDOM (BEAKER) 142 mg/dL 70-105 (test phog=510) CALCIUM (BEAKER) (test 9.3 mg/dL 8.4-10.2 xnsr=440) EGFR (BEAKER) (test 61 mL/min/1.73 sq m ESTIMATED GFR IS NOT qqdc=4462) ACCURATE CREATININE CLEARANCE IN PREDICTING GLOMERULAR FILTRATION RATE. ESTIMATED GFR IS NOT APPLICABLE FOR DIALYSIS PATIENTS. [id number] 12:43:00 Test Item Value Reference Range Comments PHOSPHORUS (BEAKER) (test vuew=000) 3.9 mg/dL 2.3-4.7 LACTIC ACID, VENOUS, WHOLE [id number] 12:15:00 Test Item Value Reference Range Comments LACTATE BLOOD VENOUS (2) 1.0 mmol/L 0.5-2.2 Specimen slightly hemolyzed (BEAKER) (test txbt=9319) Effective 02/09/2016: Units/Reference Range ChangeNew: 0.5-2.2 mmol/L Previous: 5 -20 mg/dLCBC W/PLT COUNT & AUTO [id number] 12:06:00 Test Item Value Reference Range Comments WHITE BLOOD CELL COUNT (BEAKER) (test hcux=194) 14.3 K/ L 3.5-10.5 RED BLOOD CELL COUNT (BEAKER) (test eckw=868) 4.44 M/ L 3.93-5.22 HEMOGLOBIN (BEAKER) (test jpac=423) 12.9 GM/DL 11.2-15.7 HEMATOCRIT (BEAKER) (test kqhi=451) 41.8 % 34.1-44.9 MEAN CORPUSCULAR VOLUME (BEAKER) (test aclp=150) 94.1 fL 79.4-94.8 MEAN CORPUSCULAR HEMOGLOBIN (BEAKER) (test 29.1 pg 25.6-32.2 cjpc=514) MEAN CORPUSCULAR HEMOGLOBIN CONC (BEAKER) (test 30.9 GM/DL 32.2-35.5 jmqf=827) RED CELL DISTRIBUTION WIDTH (BEAKER) (test 14.5 % 11.7-14.4 dezm=328) PLATELET COUNT (BEAKER) (test ogjh=408) 176 K/CU MM 150-450 MEAN PLATELET VOLUME (BEAKER) (test aohe=276) 11.4 fL 9.4-12.3 NUCLEATED RED BLOOD CELLS (BEAKER) (test 0 /100 WBC 0-0 iveu=603) NEUTROPHILS RELATIVE PERCENT (BEAKER) (test 91 % encg=775) LYMPHOCYTES RELATIVE PERCENT (BEAKER) (test 6 % dmkd=904) MONOCYTES RELATIVE PERCENT (BEAKER) (test 1 % babm=778) EOSINOPHILS RELATIVE PERCENT (BEAKER) (test 0 % ctmu=960) BASOPHILS RELATIVE PERCENT (BEAKER) (test 1 % vyyq=255) NEUTROPHILS ABSOLUTE COUNT (BEAKER) (test 13.02 K/ L 1.56-6.13 tvne=200) LYMPHOCYTES ABSOLUTE COUNT (BEAKER) (test 0.84 K/ L 1.18-3.74 pbxb=216) MONOCYTES ABSOLUTE COUNT (BEAKER) (test 0.09 K/ L 0.24-0.36 gnmd=434) EOSINOPHILS ABSOLUTE COUNT (BEAKER) (test 0.05 K/ L 0.04-0.36 xxsq=988) BASOPHILS ABSOLUTE COUNT (BEAKER) (test 0.08 K/ L 0.01-0.08 ceem=937) IMMATURE GRANULOCYTES-RELATIVE PERCENT (BEAKER) 2 % 0-1 (test yabo=3708) HGB/HCT (H&H) - STAT [id number] 12:01:00 Test Item Value Reference Range Comments HEMOGLOBIN (BEAKER) (test iuxe=632) 13.8 g/dL 12.0-15.0 HEMATOCRIT (BEAKER) (test hidz=542) 41.0 % 36.0-45.0 CALCIUM, [id number] 12:01:00 Test Item Value Reference Range Comments CALCIUM IONIZED (BEAKER) (test ytqg=829) 1.25 mmol/L 1.12-1.27 PH, BLOOD (BEAKER) (test uumd=5776) 7.37 BLOOD GAS, [id number] 12:01:00 Test Item Value Reference Range Comments PH ARTERIAL (BEAKER) (test faii=336) 7.38 7.35-7.45 PCO2 ARTERIAL (BEAKER) (test jgwh=194) 46 mmHg 35-45 PO2 ARTERIAL (BEAKER) (test xthe=883) 214 mmHg 80-90 O2 SATURATION ARTERIAL (BEAKER) (test jwrp=195) 99.4 % 96.0-97.0 HCO3 ARTERIAL (BEAKER) (test sirc=137) 26 mmol/L 21-29 BASE EXCESS ARTERIAL (BEAKER) (test iulr=057) 0.5 mmol/L -2.0-3.0 PATIENT TEMPERATURE (BEAKER) (test ycrq=5498) 36.7 C FIO2 (BEAKER) (test uhro=8879) 60.0 % POTASSIUM-STAT [id number] 12:01:00 Test Item Value Reference Range Comments POTASSIUM (BEAKER) (test pohj=732) 3.0 meq/L 3.6-5.5 GLUCOSE-STAT [id number] 12:01:00 Test Item Value Reference Range Comments GLUCOSE RANDOM (BEAKER) (test ssck=172) 139 mg/dL 70-110 BLOOD GAS, [id number] 10:42:00 Test Item Value Reference Range Comments PH ARTERIAL (BEAKER) (test jsco=097) 7.39 7.35-7.45 PCO2 ARTERIAL (BEAKER) (test mhsy=972) 45 mmHg 35-45 PO2 ARTERIAL (BEAKER) (test hgms=423) 260 mmHg 80-90 O2 SATURATION ARTERIAL (BEAKER) (test nizw=233) 99.6 % 96.0-97.0 HCO3 ARTERIAL (BEAKER) (test ygim=891) 26 mmol/L 21-29 BASE EXCESS ARTERIAL (BEAKER) (test ordf=106) 0.7 mmol/L -2.0-3.0 PATIENT TEMPERATURE (BEAKER) (test vqrw=6756) 36.7 C FIO2 (BEAKER) (test cpdq=0915) 50.0 % POTASSIUM-STAT [id number] 10:42:00 Test Item Value Reference Range Comments POTASSIUM (BEAKER) (test euqs=019) 3.1 meq/L 3.6-5.5 GLUCOSE-STAT [id number] 10:42:00 Test Item Value Reference Range Comments GLUCOSE RANDOM (BEAKER) (test nkvq=457) 139 mg/dL 70-110 CALCIUM, [id number] 10:41:00 Test Item Value Reference Range Comments CALCIUM IONIZED (BEAKER) (test uopw=483) 1.27 mmol/L 1.12-1.27 PH, BLOOD (BEAKER) (test ljxa=7573) 7.38 SODIUM NA-STAT [id number] 10:40:00 Test Item Value Reference Range Comments SODIUM (BEAKER) (test usxe=704) 141 meq/L 135-148 HGB/HCT (H&H) - STAT [id number] 10:40:00 Test Item Value Reference Range Comments HEMOGLOBIN (BEAKER) (test xdfx=646) 13.7 g/dL 12.0-15.0 HEMATOCRIT (BEAKER) (test sdzd=472) 40.0 % 36.0-45.0 BLOOD GAS, [id number] 09:53:00 Test Item Value Reference Range Comments PH ARTERIAL (BEAKER) (test jrqr=235) 7.45 7.35-7.45 PCO2 ARTERIAL (BEAKER) (test pgcg=233) 38 mmHg 35-45 PO2 ARTERIAL (BEAKER) (test hzih=303) 187 mmHg 80-90 O2 SATURATION ARTERIAL (BEAKER) (test crau=180) 99.4 % 96.0-97.0 HCO3 ARTERIAL (BEAKER) (test smlq=401) 26 mmol/L 21-29 BASE EXCESS ARTERIAL (BEAKER) (test usdw=350) 1.7 mmol/L -2.0-3.0 PATIENT TEMPERATURE (BEAKER) (test erlt=5657) 36.0 C FIO2 (BEAKER) (test bdrb=7614) 50.0 % POTASSIUM-STAT [id number] 09:53:00 Test Item Value Reference Range Comments POTASSIUM (BEAKER) (test bqfj=228) 3.0 meq/L 3.6-5.5 GLUCOSE-STAT [id number] 09:53:00 Test Item Value Reference Range Comments GLUCOSE RANDOM (BEAKER) (test kzhh=178) 135 mg/dL 70-110 CALCIUM, [id number] 09:53:00 Test Item Value Reference Range Comments CALCIUM IONIZED (BEAKER) (test dmjq=373) 1.01 mmol/L 1.12-1.27 PH, BLOOD (BEAKER) (test jplo=6254) 7.43 SODIUM NA-STAT [id number] 09:51:00 Test Item Value Reference Range Comments SODIUM (BEAKER) (test gzot=787) 137 meq/L 135-148 HGB/HCT (H&H) - STAT [id number] 09:51:00 Test Item Value Reference Range Comments HEMOGLOBIN (BEAKER) (test dmok=073) 14.1 g/dL 12.0-15.0 HEMATOCRIT (BEAKER) (test poka=161) 41.0 % 36.0-45.0 BLOOD GAS, [id number] 08:48:00 Test Item Value Reference Range Comments PH ARTERIAL (BEAKER) (test vbaw=007) 7.43 7.35-7.45 PCO2 ARTERIAL (BEAKER) (test wpns=360) 47 mmHg 35-45 PO2 ARTERIAL (BEAKER) (test geqv=115) 481 mmHg 80-90 O2 SATURATION ARTERIAL (BEAKER) (test tqow=816) 99.9 % 96.0-97.0 HCO3 ARTERIAL (BEAKER) (test ickk=401) 31 mmol/L 21-29 BASE EXCESS ARTERIAL (BEAKER) (test hmzh=488) 5.1 mmol/L -2.0-3.0 PATIENT TEMPERATURE (BEAKER) (test zvws=8088) 36.5 C FIO2 (BEAKER) (test xzyt=0408) 100.0 % POTASSIUM-STAT [id number] 08:48:00 Test Item Value Reference Range Comments POTASSIUM (BEAKER) (test goeg=087) 3.1 meq/L 3.6-5.5 GLUCOSE-STAT [id number] 08:48:00 Test Item Value Reference Range Comments GLUCOSE RANDOM (BEAKER) (test ypnt=322) 116 mg/dL 70-110 HGB/HCT (H&H) - STAT [id number] 08:48:00 Test Item Value Reference Range Comments HEMOGLOBIN (BEAKER) (test txrc=042) 15.5 g/dL 12.0-15.0 HEMATOCRIT (BEAKER) (test xjws=920) 46.0 % 36.0-45.0 CALCIUM, [id number] 08:47:00 Test Item Value Reference Range Comments CALCIUM IONIZED (BEAKER) (test itrz=391) 1.12 mmol/L 1.12-1.27 PH, BLOOD (BEAKER) (test kyvc=5229) 7.42 SODIUM NA-STAT [id number] 08:46:00 Test Item Value Reference Range Comments SODIUM (BEAKER) (test mqek=302) 141 meq/L 135-148 POCT-GLUCOSE [id number] 07:58:00 Test Item Value Reference Range Comments POC-GLUCOSE METER (BEAKER) 105 mg/dL 70-110 TESTED AT [facility] [address] [place] [address] (test zkwv=3875) [facility] [address] [id number] 15:19:00 Test Item Value Reference Range Comments PARTIAL THROMBOPLASTIN TIME (BEAKER) (test 27.8 seconds 22.5-36.0 idlh=189) PROTHROMBIN TIME/[id number] 15:18:00 Test Item Value Reference Range Comments PROTIME (BEAKER) (test cnlh=499) 14.4 seconds 11.7-14.7 INR (BEAKER) (test ajyj=512) 1.1 <=5.9 RECOMMENDED COUMADIN/WARFARIN INR THERAPY RANGESSTANDARD DOSE: 2.0 - 3.0 Includes: PROPHYLAXIS forvenous thrombosis, systemic embolization; TREATMENT for venous thrombosis and/or pulmonary embolus.HIGH RISK: Target INR is 2.5-3.5 for patients with mechanical heart valves.COMPREHENSIVE METABOLIC [id number] 15:10:00 Test Item Value Reference Range Comments TOTAL PROTEIN (BEAKER) 7.7 gm/dL 6.0-8.3 (test ghzc=953) ALBUMIN (BEAKER) (test 4.1 g/dL 3.5-5.0 tzam=0394) ALKALINE PHOSPHATASE 40 U/L 40-150 (BEAKER) (test lgxp=721) BILIRUBIN TOTAL (BEAKER) 0.8 mg/dL 0.2-1.2 (test xlao=771) SODIUM (BEAKER) (test 143 meq/L 136-145 rzwq=383) POTASSIUM (BEAKER) (test 4.1 meq/L 3.5-5.1 tmyw=006) CHLORIDE (BEAKER) (test 101 meq/L 98-107 krbl=000) CO2 (BEAKER) (test 30 meq/L 22-29 qzno=153) BLOOD UREA NITROGEN 31 mg/dL 7-21 (BEAKER) (test wvmx=056) CREATININE (BEAKER) (test 1.17 mg/dL 0.57-1.25 hjau=911) GLUCOSE RANDOM (BEAKER) 142 mg/dL 70-105 (test ufrk=144) CALCIUM (BEAKER) (test 10.5 mg/dL 8.4-10.2 ihia=392) AST (SGOT) (BEAKER) (test 28 U/L 5-34 uiep=486) ALT (SGPT) (BEAKER) (test 18 U/L 6-55 ppan=361) EGFR (BEAKER) (test 44 mL/min/1.73 sq m ESTIMATED GFR IS NOT gdsz=8202) ACCURATE CREATININE CLEARANCE IN PREDICTING GLOMERULAR FILTRATION RATE. ESTIMATED GFR IS NOT APPLICABLE FOR DIALYSIS PATIENTS. RAD, CHEST, 2 [id number] 14:44:00Reason for exam:->preopFINAL REPORT Chest two views INDICATION: Preoperative exam. Peripheral arterial disease. COMPARISON: None available IMPRESSION: There is minimal basilar atelectasis or scarring. There is no focal consolidation, vascular congestion, pleural effusion, or pneumothorax. The cardiac silhouette is enlarged. Mild aortic ectasia/tortuosity and calcification, osteopenia, degenerative spine changes, and a left chest pacemaker are noted. Signed: Velma Still MDReport Verified Date/Time: 03/11/2018 14:44:31 Reading Location: [facility] B1 [id number] Consult Reading Room CBC W/PLT COUNT & AUTO [id number] 14:43:00 Test Item Value Reference Range Comments WHITE BLOOD CELL COUNT (BEAKER) (test moeo=760) 7.8 K/ L 3.5-10.5 RED BLOOD CELL COUNT (BEAKER) (test vgna=078) 5.48 M/ L 3.93-5.22 HEMOGLOBIN (BEAKER) (test hclm=024) 15.6 GM/DL 11.2-15.7 HEMATOCRIT (BEAKER) (test lcjq=946) 51.3 % 34.1-44.9 MEAN CORPUSCULAR VOLUME (BEAKER) (test sapd=964) 93.6 fL 79.4-94.8 MEAN CORPUSCULAR HEMOGLOBIN (BEAKER) (test 28.5 pg 25.6-32.2 zpfo=737) MEAN CORPUSCULAR HEMOGLOBIN CONC (BEAKER) (test 30.4 GM/DL 32.2-35.5 qrlt=899) RED CELL DISTRIBUTION WIDTH (BEAKER) (test 14.2 % 11.7-14.4 aqpm=634) PLATELET COUNT (BEAKER) (test ifny=109) 251 K/CU MM 150-450 MEAN PLATELET VOLUME (BEAKER) (test pfjo=315) 11.4 fL 9.4-12.3 NUCLEATED RED BLOOD CELLS (BEAKER) (test 0 /100 WBC 0-0 tozi=314) NEUTROPHILS RELATIVE PERCENT (BEAKER) (test 85 % avst=537) LYMPHOCYTES RELATIVE PERCENT (BEAKER) (test 10 % hnsj=045) MONOCYTES RELATIVE PERCENT (BEAKER) (test 3 % vssb=687) EOSINOPHILS RELATIVE PERCENT (BEAKER) (test 0 % emqp=682) BASOPHILS RELATIVE PERCENT (BEAKER) (test 1 % pgqz=556) NEUTROPHILS ABSOLUTE COUNT (BEAKER) (test 6.61 K/ L 1.56-6.13 djxc=138) LYMPHOCYTES ABSOLUTE COUNT (BEAKER) (test 0.79 K/ L 1.18-3.74 etvd=487) MONOCYTES ABSOLUTE COUNT (BEAKER) (test 0.26 K/ L 0.24-0.36 hwjk=267) EOSINOPHILS ABSOLUTE COUNT (BEAKER) (test 0.01 K/ L 0.04-0.36 datb=480) BASOPHILS ABSOLUTE COUNT (BEAKER) (test 0.07 K/ L 0.01-0.08 rekl=374) IMMATURE GRANULOCYTES-RELATIVE PERCENT (BEAKER) 1 % 0-1 (test fmor=2816)
[2018-03-28] MEDS ORDERED: ACETAMINOPHEN 325 MG TABLET PO PRN (18:12)
[2018-03-28 18:21] VITALS: BMI 38.3
[2018-03-28] MEDS ORDERED: ALBUTEROL 2.5 MG/3 ML NEB SOL NEB SCH (20:00)
[2018-03-28] MEDS: ARFORMOTEROL TARTRATE 15 MCG/2 ML VIAL.NEB NEB SCH (20:15)
[2018-03-28] MEDS: TRAMADOL HCL 50 MG TAB PO PRN (20:47)
[2018-03-28] MEDS: GABAPENTIN 300 MG CAP PO SCH (20:47)
[2018-03-28] MEDS: DOCUSATE NA/SENNA CONC 1 TAB PO SCH (20:49)
[2018-03-28] MEDS: BIMATOPROST OPHTH DROPS/2.5 ML BTL OPTH SCH (20:52)
[2018-03-28] MEDS ORDERED: MELATONIN 3 MG TABLET PO PRN (21:45)
[2018-03-28] MEDS ORDERED: guaiFENesin 100 MG/5 ML UCUP PO PRN (21:45)
[2018-03-28] MEDS ORDERED: D50W 25 GM/50 ML SYRINGE IV PRN (22:19)
[2018-03-28] MEDS ORDERED: GLUCAGON 1 MG/VIAL IM PRN (22:19)
[2018-03-28 22:22] LABS: Urine Appearance CLOUDY; Urine Bilirubin NEGATIVE (NEG); Urine Blood NEGATIVE (NEG); Urine Color YELLOW; Urine Glucose NEGATIVE (NEG); Urine Protein NEGATIVE (NEG); Urine Specific Gravity 1.015 (1.005-1.030); Urine pH 7.5 (5.0-7.0)
[2018-03-28] MEDS ORDERED: ALBUTEROL 2.5 MG/3 ML NEB SOL NEB PRN (22:28)
[2018-03-28 22:44] LABS: Urine Bacteria LOADED /HPF (<20); Urine Culture Reflex Order NOT NEEDED; Urine RBC NONE SEEN /HPF (NONE SEEN)
[2018-03-29] MEDS: LEVOTHYROXINE SOD 0.125 MG TAB PO SCH (05:15)
[2018-03-29 06:18] LABS: Absolute Lymphocytes (CBC) 1.3 K/uL (0.7-4.9); Absolute Monocytes 0.7 K/uL (0.1-1.3); Absolute Neutrophil 6.8 K/uL (1.8-8.0); Hematocrit 34.2 % (36.0-45.0); Lymphocytes % 13.7 % (15.3-44.8); MCH 28.9 pg (27.0-35.0); MCV 91.6 fL (80-100); MPV 8.8 fL (7.6-11.3); Monocytes % 7.8 % (3.3-12.3); RBC Red Blood Cell Count 3.73 M/uL (3.86-4.86)
[2018-03-29 06:24] LABS: Albumin 2.2 g/dL (3.4-5.0); BUN Blood Urea Nitrogen 12 mg/dL (7-18); Bicarbonate 33 mmol/L (21-32); Glucose Level 84 mg/dL (74-106); Magnesium 1.9 mg/dL (1.8-2.4); Potassium 3.7 mmol/L (3.5-5.1); Prealbumin 10.2 mg/dL (20-40); Sodium Level 141 mmol/L (136-145)
[2018-03-29] MEDS: POLYETHYL GLY 3350 17 GM/DOSE PO SCH (06:47)
[2018-03-29] MEDS: LOSARTAN/HCTZ 50-12.5 PO SCH (06:47)
[2018-03-29] MEDS: GABAPENTIN 300 MG CAP PO SCH ×2 (06:49→20:37)
[2018-03-29] MEDS: ASPIRIN EC 81 MG TAB PO SCH (06:49)
[2018-03-29] MEDS: AMLODIPINE 5 MG TAB PO SCH (06:49)
[2018-03-29] MEDS: FAMOTIDINE 20 MG TAB PO SCH (06:50)
[2018-03-29] MEDS: HYDROCODONE/APAP 10/325 TAB PO PRN ×2 (06:50→19:06)
[2018-03-29] MEDS: FENOFIBRATE 160 MG TAB PO SCH (06:51)
[2018-03-29] MEDS: predniSONE 10 MG TAB PO SCH (06:51)
[2018-03-29] MEDS: SERTRALINE HCL 50 MG TAB PO SCH (06:51)
[2018-03-29] MEDS: APIXABAN 2.5 MG TABLET PO SCH ×2 (06:51→20:37)
[2018-03-29] MEDS: INSULIN -REGULAR HUMAN 50 UNIT/0.5 ML ML SQ SCH ×4 (06:51→20:46)
[2018-03-29] MEDS: ARFORMOTEROL TARTRATE 15 MCG/2 ML VIAL.NEB NEB SCH ×2 (08:52→19:15)
--- NOTE | 2018-03-29 09:42 | P.RH.PN ---
Estimated Length of Stay: 14 Expected Discharge Date: 04/10/18 Discharge Disposition Plan: Home Family Support: Yes Alf Goal: Mobility, Transfers, Self Care Vital Signs: Last Vital Signs Temp 96.7 F L 03/29/18 07:37 Pulse 68 03/29/18 07:37 Resp 16 03/29/18 07:37 BP 162/60 H 03/29/18 07:37 Pulse Ox 98 03/29/18 07:37 Laboratory: Laboratory Last Values WBC 9.2 K/uL (4.3-10.9) 03/29/18 05:49 RBC 3.73 M/uL (3.86-4.86) L 03/29/18 05:49 Hgb 10.8 g/dL (12.0-15.0) L 03/29/18 05:49 Hct 34.2 % (36.0-45.0) L 03/29/18 05:49 MCV 91.6 fL (80-100) 03/29/18 05:49 MCH 28.9 pg (27.0-35.0) 03/29/18 05:49 MCHC 31.5 g/dL (32.0-36.0) L 03/29/18 05:49 RDW 15.3 % (12.1-15.2) H 03/29/18 05:49 Plt Count 359 K/uL (152-406) 03/29/18 05:49 MPV 8.8 fL (7.6-11.3) 03/29/18 05:49 Neutrophils % 74.5 % (41.7-73.7) H 03/29/18 05:49 Lymphocytes % 13.7 % (15.3-44.8) L 03/29/18 05:49 Monocytes % 7.8 % (3.3-12.3) 03/29/18 05:49 Eosinophils % 3.0 % (0-4.4) 03/29/18 05:49 Basophils % 1.0 % (0-1.3) 03/29/18 05:49 Absolute Neutrophils 6.8 K/uL (1.8-8.0) 03/29/18 05:49 Absolute Lymphocytes 1.3 K/uL (0.7-4.9) 03/29/18 05:49 Absolute Monocytes 0.7 K/uL (0.1-1.3) 03/29/18 05:49 Absolute Eosinophils 0.3 K/uL (0-0.5) 03/29/18 05:49 Absolute Basophils 0.1 K/uL (0-0.5) 03/29/18 05:49 Sodium 141 mmol/L (136-145) 03/29/18 05:49 Potassium 3.7 mmol/L (3.5-5.1) 03/29/18 05:49 Chloride 106 mmol/L (98-107) 03/29/18 05:49 Carbon Dioxide 33 mmol/L (21-32) H 03/29/18 05:49 BUN 12 mg/dL (7-18) 03/29/18 05:49 Creatinine 0.60 mg/dL (0.55-1.3) 03/29/18 05:49 Estimated GFR > 90 mL/min (=/>90) 03/29/18 05:49 Glucose 84 mg/dL (74-106) 03/29/18 05:49 Calcium 8.8 mg/dL (8.5-10.1) 03/29/18 05:49 Magnesium 1.9 mg/dL (1.8-2.4) 03/29/18 05:49 Albumin 2.2 g/dL (3.4-5.0) L 03/29/18 05:49 Prealbumin 10.2 mg/dL (20-40) L 03/29/18 05:49 Urine Color Yellow 03/28/18 20:40 Urine Appearance Cloudy 03/28/18 20:40 Urine pH 7.5 (5.0-7.0) H 03/28/18 20:40 Ur Specific [place] 1.015 (1.005-1.030) 03/28/18 20:40 Urine Ketones Negative (NEG) 03/28/18 20:40 Urine Blood Negative (NEG) 03/28/18 20:40 Urine Nitrite Negative (NEG) 03/28/18 20:40 Urine Bilirubin Negative (NEG) 03/28/18 20:40 Urine Urobilinogen 2.0 mg/dL (0.2-1.0) H 03/28/18 20:40 Ur Leukocyte Esterase 2+ (NEG) H 03/28/18 20:40 Urine RBC None seen /HPF (NONE SEEN) 03/28/18 20:40 Urine WBC 10-20 /HPF (<5) H 03/28/18 20:40 Ur Squamous Epith Cells 5-10 /HPF (NONE SEEN) H 03/28/18 20:40 Urine Bacteria Loaded /HPF (<20) H 03/28/18 20:40 Urine Culture Reflexed Not needed 03/28/18 20:40 Urine Glucose Negative (NEG) 03/28/18 20:40 Urine Total Protein Negative (NEG) 03/28/18 20:40 Weight: 196 lb 4.8 oz Physician Update: Status post aortofemoral bypass. She is doing well with physical and occupational therapy. Mildly low Hgb of 10.8, will start hemocyte plus. Her Prealbumin is low, will start promod. She has leg edema which is managed with JOYCE hose. Summary: Patient's care plan and residential goals have been reviewed and revised as necessary. Please see the Rehabilitation Signature page for all necessary signatures.
[2018-03-29] MEDS: TRAMADOL HCL 50 MG TAB PO PRN (14:15)
[2018-03-29] MEDS: DOCUSATE NA/SENNA CONC 1 TAB PO SCH (20:37)
[2018-03-29] MEDS: PROMOD 30 ML DOSE PO SCH (20:38)
[2018-03-29] MEDS: BIMATOPROST OPHTH DROPS/2.5 ML BTL OPTH SCH (20:45)
[2018-03-30] MEDS: LEVOTHYROXINE SOD 0.125 MG TAB PO SCH (05:16)
[2018-03-30] MEDS: INSULIN -REGULAR HUMAN 50 UNIT/0.5 ML ML SQ SCH ×4 (07:30→20:39)
[2018-03-30] MEDS: POLYETHYL GLY 3350 17 GM/DOSE PO SCH (08:00)
[2018-03-30] MEDS: ARFORMOTEROL TARTRATE 15 MCG/2 ML VIAL.NEB NEB SCH ×3 (08:00→20:06)
[2018-03-30] MEDS: TRAMADOL HCL 50 MG TAB PO PRN ×2 (08:24→20:44)
[2018-03-30] MEDS: LOSARTAN/HCTZ 50-12.5 PO SCH (08:25)
[2018-03-30] MEDS: ASPIRIN EC 81 MG TAB PO SCH (08:26)
[2018-03-30] MEDS: GABAPENTIN 300 MG CAP PO SCH ×2 (08:27→20:38)
[2018-03-30] MEDS: AMLODIPINE 5 MG TAB PO SCH (08:27)
[2018-03-30] MEDS: FE SULF/FA/VIT B COMP & C TAB PO SCH (08:27)
[2018-03-30] MEDS: FERROUS SULFATE 325 MG TAB PO SCH (08:28)
[2018-03-30] MEDS: FENOFIBRATE 160 MG TAB PO SCH (08:29)
[2018-03-30] MEDS: predniSONE 10 MG TAB PO SCH (08:29)
[2018-03-30] MEDS: APIXABAN 2.5 MG TABLET PO SCH ×2 (08:29→20:38)
[2018-03-30] MEDS: FAMOTIDINE 20 MG TAB PO SCH (08:31)
[2018-03-30] MEDS: SERTRALINE HCL 50 MG TAB PO SCH (08:32)
[2018-03-30] MEDS: PROMOD 30 ML DOSE PO SCH ×2 (08:33→20:39)
[2018-03-30] MEDS: HYDROCODONE/APAP 10/325 TAB PO PRN (10:35)
[2018-03-30] MEDS: BIMATOPROST OPHTH DROPS/2.5 ML BTL OPTH SCH (20:39)
[2018-03-30] MEDS: DOCUSATE NA/SENNA CONC 1 TAB PO SCH (20:40)
[2018-03-31] MEDS: LEVOTHYROXINE SOD 0.125 MG TAB PO SCH (05:23)
[2018-03-31] MEDS: ARFORMOTEROL TARTRATE 15 MCG/2 ML VIAL.NEB NEB SCH ×2 (07:29→19:10)
[2018-03-31] MEDS: INSULIN -REGULAR HUMAN 50 UNIT/0.5 ML ML SQ SCH ×4 (07:30→21:00)
[2018-03-31] MEDS: POLYETHYL GLY 3350 17 GM/DOSE PO SCH ×2 (08:00→08:18)
[2018-03-31] MEDS: LOSARTAN/HCTZ 50-12.5 PO SCH (08:18)
[2018-03-31] MEDS: FE SULF/FA/VIT B COMP & C TAB PO SCH (08:19)
[2018-03-31] MEDS: FAMOTIDINE 20 MG TAB PO SCH (08:19)
[2018-03-31] MEDS: GABAPENTIN 300 MG CAP PO SCH ×2 (08:19→20:09)
[2018-03-31] MEDS: ASPIRIN EC 81 MG TAB PO SCH (08:19)
[2018-03-31] MEDS: FERROUS SULFATE 325 MG TAB PO SCH (08:20)
[2018-03-31] MEDS: PROMOD 30 ML DOSE PO SCH ×2 (08:20→20:10)
[2018-03-31] MEDS: FENOFIBRATE 160 MG TAB PO SCH (08:20)
[2018-03-31] MEDS: predniSONE 10 MG TAB PO SCH (08:20)
[2018-03-31] MEDS: SERTRALINE HCL 50 MG TAB PO SCH (08:20)
[2018-03-31] MEDS: AMLODIPINE 5 MG TAB PO SCH (09:43)
[2018-03-31] MEDS: APIXABAN 2.5 MG TABLET PO SCH ×2 (09:44→20:09)
[2018-03-31] MEDS: TRAMADOL HCL 50 MG TAB PO PRN (18:38)
[2018-03-31] MEDS: DOCUSATE NA/SENNA CONC 1 TAB PO SCH (20:09)
[2018-03-31] MEDS: BIMATOPROST OPHTH DROPS/2.5 ML BTL OPTH SCH (20:10)
[2018-04-01] MEDS: LEVOTHYROXINE SOD 0.125 MG TAB PO SCH (05:19)
[2018-04-01] MEDS: ARFORMOTEROL TARTRATE 15 MCG/2 ML VIAL.NEB NEB SCH ×2 (07:28→20:35)
[2018-04-01] MEDS: INSULIN -REGULAR HUMAN 50 UNIT/0.5 ML ML SQ SCH ×4 (07:30→20:00)
[2018-04-01] MEDS: POLYETHYL GLY 3350 17 GM/DOSE PO SCH (08:00)
[2018-04-01] MEDS: HYDROCODONE/APAP 10/325 TAB PO PRN (08:31)
[2018-04-01] MEDS: ASPIRIN EC 81 MG TAB PO SCH (08:32)
[2018-04-01] MEDS: LOSARTAN/HCTZ 50-12.5 PO SCH (08:32)
[2018-04-01] MEDS: AMLODIPINE 5 MG TAB PO SCH (08:33)
[2018-04-01] MEDS: APIXABAN 2.5 MG TABLET PO SCH ×2 (08:33→19:53)
[2018-04-01] MEDS: GABAPENTIN 300 MG CAP PO SCH ×2 (08:33→19:52)
[2018-04-01] MEDS: FERROUS SULFATE 325 MG TAB PO SCH (08:33)
[2018-04-01] MEDS: FAMOTIDINE 20 MG TAB PO SCH (08:33)
[2018-04-01] MEDS: FE SULF/FA/VIT B COMP & C TAB PO SCH (08:33)
[2018-04-01] MEDS: predniSONE 10 MG TAB PO SCH (08:34)
[2018-04-01] MEDS: FENOFIBRATE 160 MG TAB PO SCH (08:34)
[2018-04-01] MEDS: PROMOD 30 ML DOSE PO SCH ×2 (08:34→19:52)
[2018-04-01] MEDS: SERTRALINE HCL 50 MG TAB PO SCH (08:34)
[2018-04-01] MEDS: TRAMADOL HCL 50 MG TAB PO PRN (19:53)
[2018-04-01] MEDS: BIMATOPROST OPHTH DROPS/2.5 ML BTL OPTH SCH (20:00)
[2018-04-01] MEDS: DOCUSATE NA/SENNA CONC 1 TAB PO SCH (20:00)
[2018-04-02] MEDS: LEVOTHYROXINE SOD 0.125 MG TAB PO SCH (05:01)
[2018-04-02] MEDS: INSULIN -REGULAR HUMAN 50 UNIT/0.5 ML ML SQ SCH ×4 (07:30→20:06)
[2018-04-02] MEDS: TRAMADOL HCL 50 MG TAB PO PRN ×2 (07:35→19:21)
[2018-04-02] MEDS: AMLODIPINE 5 MG TAB PO SCH (07:37)
[2018-04-02] MEDS: GABAPENTIN 300 MG CAP PO SCH ×2 (07:38→19:20)
[2018-04-02] MEDS: ASPIRIN EC 81 MG TAB PO SCH (07:38)
[2018-04-02] MEDS: SERTRALINE HCL 50 MG TAB PO SCH (07:38)
[2018-04-02] MEDS: APIXABAN 2.5 MG TABLET PO SCH ×2 (07:38→19:21)
[2018-04-02] MEDS: FAMOTIDINE 20 MG TAB PO SCH (07:38)
[2018-04-02] MEDS: LOSARTAN/HCTZ 50-12.5 PO SCH (07:38)
[2018-04-02] MEDS: FE SULF/FA/VIT B COMP & C TAB PO SCH (07:38)
[2018-04-02] MEDS: predniSONE 10 MG TAB PO SCH (07:39)
[2018-04-02] MEDS: FERROUS SULFATE 325 MG TAB PO SCH (07:39)
[2018-04-02] MEDS: PROMOD 30 ML DOSE PO SCH ×2 (07:39→19:21)
[2018-04-02] MEDS: FENOFIBRATE 160 MG TAB PO SCH (07:39)
[2018-04-02] MEDS: POLYETHYL GLY 3350 17 GM/DOSE PO SCH (07:39)
[2018-04-02] MEDS: ARFORMOTEROL TARTRATE 15 MCG/2 ML VIAL.NEB NEB SCH ×2 (07:44→21:39)
[2018-04-02] MEDS: DOCUSATE NA/SENNA CONC 1 TAB PO SCH (20:05)
[2018-04-02] MEDS: BIMATOPROST OPHTH DROPS/2.5 ML BTL OPTH SCH (20:06)
[2018-04-03] MEDS: LEVOTHYROXINE SOD 0.125 MG TAB PO SCH (05:03)
[2018-04-03] MEDS: INSULIN -REGULAR HUMAN 50 UNIT/0.5 ML ML SQ SCH ×4 (07:16→20:18)
[2018-04-03] MEDS: ARFORMOTEROL TARTRATE 15 MCG/2 ML VIAL.NEB NEB SCH ×2 (07:32→21:25)
[2018-04-03] MEDS: FE SULF/FA/VIT B COMP & C TAB PO SCH (07:33)
[2018-04-03] MEDS: LOSARTAN/HCTZ 50-12.5 PO SCH (07:33)
[2018-04-03] MEDS: GABAPENTIN 300 MG CAP PO SCH ×2 (07:33→20:17)
[2018-04-03] MEDS: APIXABAN 2.5 MG TABLET PO SCH ×2 (07:34→20:17)
[2018-04-03] MEDS: FERROUS SULFATE 325 MG TAB PO SCH (07:34)
[2018-04-03] MEDS: TRAMADOL HCL 50 MG TAB PO PRN ×2 (07:34→20:17)
[2018-04-03] MEDS: predniSONE 10 MG TAB PO SCH (07:34)
[2018-04-03] MEDS: ASPIRIN EC 81 MG TAB PO SCH (07:34)
[2018-04-03] MEDS: FAMOTIDINE 20 MG TAB PO SCH (07:34)
[2018-04-03] MEDS: SERTRALINE HCL 50 MG TAB PO SCH (07:34)
[2018-04-03] MEDS: AMLODIPINE 5 MG TAB PO SCH (07:34)
[2018-04-03] MEDS: FENOFIBRATE 160 MG TAB PO SCH (07:34)
[2018-04-03] MEDS: POLYETHYL GLY 3350 17 GM/DOSE PO SCH (07:35)
[2018-04-03] MEDS: PROMOD 30 ML DOSE PO SCH ×2 (07:35→20:18)
[2018-04-03] MEDS: DOCUSATE NA/SENNA CONC 1 TAB PO SCH (20:17)
[2018-04-03] MEDS: BIMATOPROST OPHTH DROPS/2.5 ML BTL OPTH SCH (20:18)
[2018-04-04] MEDS: LEVOTHYROXINE SOD 0.125 MG TAB PO SCH (05:21)
[2018-04-04 05:59] LABS: Absolute Lymphocytes (CBC) 1.7 K/uL (0.7-4.9); Absolute Monocytes 0.8 K/uL (0.1-1.3); Absolute Neutrophil 5.6 K/uL (1.8-8.0); Basophils % 2.6 % (0-1.3); Eosinophils % 3.1 % (0-4.4); Hematocrit 38.5 % (36.0-45.0); Lymphocytes % 19.7 % (15.3-44.8); MCH 29.1 pg (27.0-35.0); MCV 92.1 fL (80-100); MPV 8.6 fL (7.6-11.3); Monocytes % 9.1 % (3.3-12.3); RBC Red Blood Cell Count 4.18 M/uL (3.86-4.86)
[2018-04-04 06:26] LABS: Albumin 2.7 g/dL (3.4-5.0); Potassium 4.4 mmol/L (3.5-5.1)
[2018-04-04] MEDS: INSULIN -REGULAR HUMAN 50 UNIT/0.5 ML ML SQ SCH ×4 (07:30→20:19)
[2018-04-04] MEDS: ARFORMOTEROL TARTRATE 15 MCG/2 ML VIAL.NEB NEB SCH ×2 (07:31→20:00)
[2018-04-04] MEDS: POLYETHYL GLY 3350 17 GM/DOSE PO SCH (08:00)
[2018-04-04] MEDS: FAMOTIDINE 20 MG TAB PO SCH (08:09)
[2018-04-04] MEDS: predniSONE 10 MG TAB PO SCH (08:09)
[2018-04-04] MEDS: GABAPENTIN 300 MG CAP PO SCH ×2 (08:09→20:17)
[2018-04-04] MEDS: LOSARTAN/HCTZ 50-12.5 PO SCH (08:10)
[2018-04-04] MEDS: FE SULF/FA/VIT B COMP & C TAB PO SCH (08:10)
[2018-04-04] MEDS: SERTRALINE HCL 50 MG TAB PO SCH (08:11)
[2018-04-04] MEDS: APIXABAN 2.5 MG TABLET PO SCH ×2 (08:11→20:17)
[2018-04-04] MEDS: FENOFIBRATE 160 MG TAB PO SCH (08:11)
[2018-04-04] MEDS: FERROUS SULFATE 325 MG TAB PO SCH (08:11)
[2018-04-04] MEDS: ASPIRIN EC 81 MG TAB PO SCH (08:11)
[2018-04-04] MEDS: TRAMADOL HCL 50 MG TAB PO PRN ×2 (08:12→20:17)
[2018-04-04] MEDS: AMLODIPINE 5 MG TAB PO SCH (08:12)
[2018-04-04] MEDS: PROMOD 30 ML DOSE PO SCH ×2 (08:13→20:19)
[2018-04-04] MEDS: DOCUSATE NA/SENNA CONC 1 TAB PO SCH (20:17)
[2018-04-04] MEDS: BIMATOPROST OPHTH DROPS/2.5 ML BTL OPTH SCH (20:19)
[2018-04-05] MEDS: LEVOTHYROXINE SOD 0.125 MG TAB PO SCH (05:27)
[2018-04-05] MEDS: INSULIN -REGULAR HUMAN 50 UNIT/0.5 ML ML SQ SCH ×4 (07:17→20:10)
[2018-04-05] MEDS: ACETIC ACID 0.25% IRRIG IRR SCH (08:00)
[2018-04-05] MEDS: POLYETHYL GLY 3350 17 GM/DOSE PO SCH (08:00)
[2018-04-05] MEDS: FE SULF/FA/VIT B COMP & C TAB PO SCH (08:06)
[2018-04-05] MEDS: ASCORBIC ACID 500 MG TABLET PO SCH (08:06)
[2018-04-05] MEDS: FAMOTIDINE 20 MG TAB PO SCH (08:06)
[2018-04-05] MEDS: LOSARTAN/HCTZ 50-12.5 PO SCH (08:07)
[2018-04-05] MEDS: FERROUS SULFATE 325 MG TAB PO SCH (08:07)
[2018-04-05] MEDS: GABAPENTIN 300 MG CAP PO SCH ×2 (08:08→20:09)
[2018-04-05] MEDS: FENOFIBRATE 160 MG TAB PO SCH (08:08)
[2018-04-05] MEDS: TRAMADOL HCL 50 MG TAB PO PRN ×2 (08:08→20:15)
[2018-04-05] MEDS: AMLODIPINE 5 MG TAB PO SCH (08:08)
[2018-04-05] MEDS: PROMOD 30 ML DOSE PO SCH ×2 (08:09→20:09)
[2018-04-05] MEDS: SERTRALINE HCL 50 MG TAB PO SCH (08:09)
[2018-04-05] MEDS: ASPIRIN EC 81 MG TAB PO SCH (08:09)
[2018-04-05] MEDS: predniSONE 10 MG TAB PO SCH (08:09)
[2018-04-05] MEDS: APIXABAN 2.5 MG TABLET PO SCH ×2 (08:10→20:09)
[2018-04-05] MEDS: ARFORMOTEROL TARTRATE 15 MCG/2 ML VIAL.NEB NEB SCH ×2 (08:42→19:57)
--- NOTE | 2018-04-05 10:08 | P.RH.PN ---
Estimated Length of Stay: 10 Expected Discharge Date: 04/06/18 Discharge Disposition Plan: Home Family Support: Yes Vital Signs: Last Vital Signs Temp 97.2 F 04/05/18 06:50 Pulse 68 04/05/18 08:08 Resp 18 04/05/18 06:50 BP 166/72 H 04/05/18 08:08 Pulse Ox 96 04/05/18 06:50 Laboratory: Laboratory Last Values WBC 8.6 K/uL (4.3-10.9) 04/04/18 05:41 RBC 4.18 M/uL (3.86-4.86) 04/04/18 05:41 Hgb 12.2 g/dL (12.0-15.0) 04/04/18 05:41 Hct 38.5 % (36.0-45.0) 04/04/18 05:41 MCV 92.1 fL (80-100) 04/04/18 05:41 MCH 29.1 pg (27.0-35.0) 04/04/18 05:41 MCHC 31.6 g/dL (32.0-36.0) L 04/04/18 05:41 RDW 15.9 % (12.1-15.2) H 04/04/18 05:41 Plt Count 356 K/uL (152-406) 04/04/18 05:41 MPV 8.6 fL (7.6-11.3) 04/04/18 05:41 Neutrophils % 65.5 % (41.7-73.7) 04/04/18 05:41 Lymphocytes % 19.7 % (15.3-44.8) 04/04/18 05:41 Monocytes % 9.1 % (3.3-12.3) 04/04/18 05:41 Eosinophils % 3.1 % (0-4.4) 04/04/18 05:41 Basophils % 2.6 % (0-1.3) H 04/04/18 05:41 Absolute Neutrophils 5.6 K/uL (1.8-8.0) 04/04/18 05:41 Absolute Lymphocytes 1.7 K/uL (0.7-4.9) 04/04/18 05:41 Absolute Monocytes 0.8 K/uL (0.1-1.3) 04/04/18 05:41 Absolute Eosinophils 0.3 K/uL (0-0.5) 04/04/18 05:41 Absolute Basophils 0.2 K/uL (0-0.5) 04/04/18 05:41 Sodium 142 mmol/L (136-145) 04/04/18 05:41 Potassium 4.4 mmol/L (3.5-5.1) 04/04/18 05:41 Chloride 103 mmol/L (98-107) 04/04/18 05:41 Carbon Dioxide 35 mmol/L (21-32) H 04/04/18 05:41 BUN 29 mg/dL (7-18) H 04/04/18 05:41 Creatinine 1.10 mg/dL (0.55-1.3) 04/04/18 05:41 Estimated GFR 47 mL/min (=/>90) L 04/04/18 05:41 Glucose 99 mg/dL (74-106) 04/04/18 05:41 POC Glucose 85 mg/dl (65-120) 04/05/18 07:08 Calcium 9.1 mg/dL (8.5-10.1) 04/04/18 05:41 Magnesium 1.9 mg/dL (1.8-2.4) 03/29/18 05:49 Albumin 2.7 g/dL (3.4-5.0) L 04/04/18 05:41 Prealbumin 18.0 mg/dL (20-40) L 04/04/18 05:41 Urine Color Yellow 03/28/18 20:40 Urine Appearance Cloudy 03/28/18 20:40 Urine pH 7.5 (5.0-7.0) H 03/28/18 20:40 Ur Specific [place] 1.015 (1.005-1.030) 03/28/18 20:40 Urine Ketones Negative (NEG) 03/28/18 20:40 Urine Blood Negative (NEG) 03/28/18 20:40 Urine Nitrite Negative (NEG) 03/28/18 20:40 Urine Bilirubin Negative (NEG) 03/28/18 20:40 Urine Urobilinogen 2.0 mg/dL (0.2-1.0) H 03/28/18 20:40 Ur Leukocyte Esterase 2+ (NEG) H 03/28/18 20:40 Urine RBC None seen /HPF (NONE SEEN) 03/28/18 20:40 Urine WBC 10-20 /HPF (<5) H 03/28/18 20:40 Ur Squamous Epith Cells 5-10 /HPF (NONE SEEN) H 03/28/18 20:40 Urine Bacteria Loaded /HPF (<20) H 03/28/18 20:40 Urine Culture Reflexed Not needed 03/28/18 20:40 Urine Glucose Negative (NEG) 03/28/18 20:40 Urine Total Protein Negative (NEG) 03/28/18 20:40 Weight: 192 lb 6.4 oz Wound Present: No Closed Surgical Incision Present: Yes Negative Pressure Wound Therapy Present: No Physician Update: She is medically stable with now normal Hgb 12.2. Prealbumin is 18.0. Blood sugars 91 to 178. Will plan to discharge home on Sunday. Functional Improvement: pt has demonstrated consistent progress throughout the duration of therapy. She does at times require encouragement for full participattion. pt easily fatigues and requires rest breaks. Skill PT services continue to be necessary to enhance functional mobility and safety for discharge. Functional Improvement Occupational Therapy: CONTINUE ADDRESSING THE ABOVE INCLUDING OVERALL STRENGHT/ENDURANCE TO IMPROVE FUNCTIONAL ACTIVITY PERFORMANCE AND TOLERANCE SAFELY. 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 Please see the Rehabilitation Signature page for all necessary signatures.
[2018-04-05] MEDS: DOCUSATE NA/SENNA CONC 1 TAB PO SCH (20:10)
[2018-04-05] MEDS: BIMATOPROST OPHTH DROPS/2.5 ML BTL OPTH SCH (20:10)
[2018-04-06] MEDS: LEVOTHYROXINE SOD 0.125 MG TAB PO SCH (05:24)
[2018-04-06] MEDS: INSULIN -REGULAR HUMAN 50 UNIT/0.5 ML ML SQ SCH (07:30)
[2018-04-06] MEDS: ACETIC ACID 0.25% IRRIG IRR SCH (08:00)
[2018-04-06] MEDS: POLYETHYL GLY 3350 17 GM/DOSE PO SCH (08:00)
[2018-04-06] MEDS: FE SULF/FA/VIT B COMP & C TAB PO SCH (08:06)
[2018-04-06] MEDS: LOSARTAN/HCTZ 50-12.5 PO SCH (08:06)
[2018-04-06] MEDS: APIXABAN 2.5 MG TABLET PO SCH (08:06)
[2018-04-06] MEDS: FERROUS SULFATE 325 MG TAB PO SCH (08:06)
[2018-04-06] MEDS: GABAPENTIN 300 MG CAP PO SCH (08:06)
[2018-04-06] MEDS: SERTRALINE HCL 50 MG TAB PO SCH (08:06)
[2018-04-06] MEDS: ASCORBIC ACID 500 MG TABLET PO SCH (08:06)
[2018-04-06] MEDS: FENOFIBRATE 160 MG TAB PO SCH (08:07)
[2018-04-06] MEDS: ASPIRIN EC 81 MG TAB PO SCH (08:07)
[2018-04-06] MEDS: FAMOTIDINE 20 MG TAB PO SCH (08:07)
[2018-04-06] MEDS: predniSONE 10 MG TAB PO SCH (08:07)
[2018-04-06] MEDS: AMLODIPINE 5 MG TAB PO SCH (08:07)
[2018-04-06] MEDS: TRAMADOL HCL 50 MG TAB PO PRN (08:12)
[2018-04-06] MEDS: PROMOD 30 ML DOSE PO SCH (08:12)
[2018-04-06 08:15] VITALS: BP 178/79
[2018-04-06] MEDS: ARFORMOTEROL TARTRATE 15 MCG/2 ML VIAL.NEB NEB SCH (09:20)
[2018-04-06 10:10] VITALS: O2SAT 98
[2018-04-06 10:18] VITALS: TEMP 97
== END 2018-04-06 10:55 | disposition home or self-care (01) | DRG 301 ==
LOC: 5TH 03-28 17:46
PROVIDERS: ADMIT Psychiatry & Neurology Neurology with Special Qualifications in Child Neurology; ATTEND Psychiatry & Neurology Neurology with Special Qualifications in Child Neurology
DX: I73.9 Peripheral vascular disease, unspecified (principal); E11.8 Type 2 diabetes mellitus with unspecified complications; I10 Essential (primary) hypertension; E78.5 Hyperlipidemia, unspecified; J44.9 Chronic obstructive pulmonary disease, unspecified; K21.9 Gastro-esophageal reflux disease without esophagitis; Z95.0 Presence of cardiac pacemaker
CPT/HCPCS: 36415; 80048; 81001; 82040; 82962; 83735; 84134; 85025; 87077; 87086; 87088; 87186; 97542; J7512; J7605

== ENCOUNTER 2018-04-27 09:47 | Emergency (ER) | payer OTHER, MEDICARE ==
--- OUTSIDE RECORDS SUMMARY | 2018-04-27 09:49 | XMS REPORT | Clinical Summary ---
:1935 Author Organization [facility] Address [address] [place] [address] Phone Care Team Providers Name Role Phone [...] TABLET(S) BY tablet MOUTH ONCE A DAY. levothyroxine TAKE ONE (1) 1 02/21/2018 Active [...] tablet (325 mg total) by mouth daily. polyethylene Take 17 g by 14 each 0 03/29/2018 Active glycol (GLYCOLAX) mouth daily Hold 17 gram packet for loose stool. predniSONE Take 1 tablet (10 1 03/28/2018 Active (DELTASONE) 10 MG mg total) by tablet mouth daily. senna-docusate Take 1 tablet by 0 03/28/2018 03/28/20 Active (SENOKOT S) 8.6-50 mouth nightly. 19 mg per tablet HYDROcodone-acetam Take 1 tablet by 30 tablet 0 03/28/2018 Active inophen (NORCO mouth every 4 10-325) 10-325 mg (four) hours as per tablet needed for Pain. Max Daily Amount: 6 tablets ROSALIO-24 200 mg 24 2 (two) times 3 02/05/2018 Active hr daily. capsuleIndications : Post-operative state acetic acid 0.25 % USE 1,000 MLS 0 04/08/2018 Active irrigation DIRECTED DAILY. amLODIPine Take 2 tablets 30 tablet 5 04/25/2018 05/25/20 Active (NORVASC) 5 MG (10 mg total) by 18 tablet mouth daily for 30 days. ciprofloxacin HCl Take 1 tablet 22 tablet 0 04/25/2018 05/06/20 Active (CIPRO) 750 MG (750 mg total) by 18 tablet mouth every 12 (twelve) hours for 11 days. clopidogrel Take 1 tablet (75 30 tablet 5 04/26/2018 04/26/20 Active (PLAVIX) 75 mg mg total) by 19 tablet mouth daily. hydrALAZINE Take 1 tablet (50 90 tablet 5 04/25/2018 04/25/20 Active (APRESOLINE) 50 MG mg total) by 19 tablet mouth every 8 (eight) hours. mINOCYCLine Take 1 capsule 22 capsule 0 04/25/2018 05/06/20 Active (MINOCIN,DYNACIN) (100 mg total) by 18 100 MG capsule mouth every 12 (twelve) hours for 11 days. traMADol (ULTRAM) Take 1 tablet (50 30 tablet 0 04/25/2018 Active 50 mg tablet mg total) by mouth every 8 (eight) hours as needed for Pain. Max Daily Amount: 150 mg rOPINIRole Take 1 tablet 30 tablet 1 04/25/2018 04/25/20 Active (REQUIP) 0.5 MG (0.5 mg total) by 19 tablet mouth nightly. gabapentin 600 mg 2 (two) 1 01/22/2018 04/25/20 Discontinued (NEURONTIN) 300 MG times daily . 18 capsule LEVEMIR FLEXTOUCH 10 Units 2 (two) 1 02/19/2018 03/28/20 Discontinued 100 unit/mL (3 mL) times daily. 18 InPn injection predniSONE 20 mg daily . 1 12/25/2017 03/28/20 Discontinued (DELTASONE) 10 MG 18 tablet traMADol (ULTRAM) TAKE ONE (1) 3 02/19/2018 03/28/20 Discontinued 50 mg tablet TABLET(S) BY 18 MOUTH THREE TIMES A DAY. aspirin 325 MG EC Take 325 mg by 03/28/20 Discontinued tablet mouth daily. 18 amLODIPine Take 1 tablet (5 0 03/29/2018 04/25/20 Discontinued (NORVASC) 5 MG mg total) by 18 tablet mouth daily. traMADol (ULTRAM) Take 2 tablets 30 tablet 0 03/28/2018 04/07/20 50 mg tablet (100 mg total) by 18 mouth every 6 (six) hours as needed for up to 10 days. Max Daily Amount: 400 mg HYDROcodone-acetam Take 1 tablet by 30 tablet 0 03/28/2018 03/28/20 Discontinued inophen (NORCO mouth every 6 18 10-325) 10-325 mg (six) hours as per tablet needed for Pain. Max Daily Amount: 4 tablets traMADol (ULTRAM) Take 50 mg by 04/25/20 Discontinued 50 mg tablet mouth 2 (two) 18 times daily as needed for Pain. Active Problems Problem Noted Date Wound infection after surgery 04/25/2018 Pseudomonas aeruginosa infection 04/25/2018 Klebsiella infection 04/25/2018 Femoral artery aneurysm, right (HCC) 04/24/2018 Wound infection 04/19/2018 Leukocytosis 03/20/2018 DM (diabetes mellitus) type II, controlled, with peripheral vascular disorder (HCC) Hypertension Hyperlipidemia Peripheral vascular disease (HCC) Iliac artery occlusion, left (HCC) COPD (chronic obstructive pulmonary disease) ([facility]) GERD (gastroesophageal reflux disease) Respiratory insufficiency Pacemaker Encounters Date Type Specialty Care Team Description 04/22/2018 Anesthesia Event Iglesia Rodriguez Delvin 04/22/2018 Procedure Pass 04/22/2018 Surgery [place], EXPLORATION,WOUND Billy Alfredo, EXTREMITY LOWER 04/19/2018 - Hospital Encounter Cardiology Doron Dorman MD 04/25/2018 Shreyas Cartagena (Jose) MD Bam 04/19/2018 Office Visit Cardiology Billy Mcmanus MD Giveon, Ron, MD 04/03/2018 Office Visit Cardiology [place], Post-operative state Billy Alfredo (Primary Dx) 03/25/2018 Anesthesia Event Felicity King MD 03/25/2018 [...] Diabetes mellitus type Billy Alfredo, 2, noninsulin dependent (HCC);Essential hypertension;Hyperlipi demia, unspecified hyperlipidemia type;Peripheral vascular disease (HCC);Iliac artery occlusion, left (HCC);Chronic obstructive pulmonary disease, unspecified COPD type (HCC);Gastroesophageal reflux disease, esophagitis presence not specified 03/11/2018 Orders Only General Internal Medicine after 04/26/2017 Social History Tobacco Use Types Packs/Day Years Used Date Former Smoker 1 50 Quit: 1998 Smokeless Tobacco: Never Used Alcohol Use Drinks/Week oz/Week Comments No Sex Assigned at Date Recorded Not on file Last Filed Vital Signs Vital Sign Reading Time Taken Blood Pressure 147/67 04/25/2018 3:17 PM CDT Pulse 69 04/25/2018 3:17 PM CDT Temperature 36.5 C (97.7 F) 04/25/2018 3:17 PM CDT Respiratory Rate 18 04/25/2018 3:17 PM CDT Oxygen Saturation 97% 04/25/2018 3:17 PM CDT Inhaled Oxygen Concentration - - Weight 84.1 kg (185 lb 4.8 oz) 04/25/2018 7:28 AM CDT Height 167.6 cm (5' 6") 04/22/2018 9:12 AM CDT Body Mass Index 29.91 04/25/2018 7:28 AM CDT Plan of Treatment Date Type Specialty Care Team Description 05/09/2018 Office Visit Cardiology Billy Mcmanus MD [address] [facility] [phone] [address] Health Maintenance Due Date Last Done Comments INFLUENZA VACCINE 07/08/2018 Implants Implanted 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 Expiration Model / Identifier Date Serial / Lot Grft Vasc Gelsft Plus [id number] - [id number] Graft/Pa N/A: TERUMO: VASCUTEK 11/07/2020 [id number] / Implanted: Qty: 1 on 03/18/2018 by Billy Mcmanus MD [facility] Grout [id number] / [id number] Procedures Procedure Name Priority Date/Time Associated Diagnosis Comments EXPLORATION,WOUND 04/22/2018 8:00 AM CDT Infection EXTREMITY LOWER Case Notes Original panel length 50 DEBRIDEMENT/I&D,WOUND TRUNK 03/25/2018 8:00 AM CDT Wound dehiscence, ANTERIOR surgical, initial encounter Special Needs REQ TF BYPASS,AORTO-FEMORAL 03/18/2018 8:00 AM CDT PAD (peripheral artery disease ) (HCC) after 04/26/2017 Results RHYTHM STRIP - SCAN (04/26/2018 10:40 AM)Only the most recent of2 resultswithin the time period is included.POC-Glucose meter (04/25/2018 12:24 PM)Only the most recent of68 resultswithin the time period is included. Component Value Ref Range POC-Glucose Meter 147 (H)Comment: TESTED AT [address] 70 - 110 mg/[place] [id number] Specimen Performing Laboratory Blood [facility] [address] [address] TRANSFUSION SERVICE REPORT - SCAN (04/23/2018 5:50 PM)Only the most recent of3 resultswithin the time period is included.Surgically obtained culture + gram stain (04/22/2018 8:46 AM)Only the most recent of2 resultswithin the time period is included. Component Value Ref Range Result No growth Gram Stain Result No WBCs Gram Stain Result No organisms seen Specimen Performing Laboratory Tissue - Groin, [address] [address] Type and screen, automated (04/21/2018 10:27 PM)Only the most recent of2 resultswithin the time period is included. Component Value Ref Range ABO/RH AUTOMATED (BEAKER) O POSITIVE Ab Scrn NEGATIVE Specimen Performing Laboratory Blood - Arm, [address] [address] CBC with platelet count + automated diff (04/21/2018 10:27 PM)Only the most recent of15 resultswithin the time period is included. Component Value Ref Range WBC 8.7 3.5 - 10.5 K/L RBC 4.77 3.93 - 5.22 M/L Hemoglobin 13.6 11.2 - 15.7 GM/DL Hematocrit 45.4 (H) 34.1 - 44.9 % MCV 95.2 (H) 79.4 - 94.8 fL MCH 28.5 25.6 - 32.2 pg MCHC 30.0 (L) 32.2 - 35.5 GM/DL RDW 15.2 (H) 11.7 - 14.4 % Platelets 267 150 - 450 K/CU MM MPV 11.2 9.4 - 12.3 fL nRBC 0 0 - 0 /100 WBC % Neutros 73 % % Lymphs 16 % % Monos 8 % % Eos 1 % % Baso 1 % # Neutros 6.38 (H) 1.56 - 6.13 K/L # Lymphs 1.37 1.18 - 3.74 K/L # Monos 0.73 (H) 0.24 - 0.36 K/L # Eos 0.12 0.04 - 0.36 K/L # Baso 0.08 0.01 - 0.08 K/L Immature Granulocytes-Relative 1 0 - 1 % Specimen Performing Laboratory Blood - Arm, [address] [address] Prothrombin time/INR (04/21/2018 10:27 PM)Only the most recent of2 resultswithin the time period is included. Component Value Ref Range Protime 14.0 11.7 - 14.7 seconds INR 1.1 <=5.9 Specimen Performing Laboratory Blood - Arm, Right [address] [address] Narrative RECOMMENDED COUMADIN/WARFARIN INR THERAPY RANGES STANDARD DOSE: 2.0 - 3.0 Includes: PROPHYLAXIS for venous thrombosis, systemic embolization; TREATMENT for venous thrombosis and/or pulmonary embolus. HIGH RISK: Target INR is 2.5-3.5 for patients with mechanical heart valves. CBC with platelet count + automated diff (04/21/2018 10:27 PM)Only the most recent of15 resultswithin the time period is included. Specimen Performing Laboratory Blood Narrative The following orders were created for panel order CBC with platelet count + automated diff. Procedure Abnormality Status --------- ------ CBC with platelet count ...[[id number]]AbnormalFinal result Please view results for these tests on the individual orders. Comprehensive metabolic panel (04/21/2018 10:27 PM)Only the most recent of2 resultswithin the time period is included. Component Value Ref Range Protein, Total 7.5 6.0 - 8.3 gm/dL Albumin 3.8 3.5 - 5.0 g/dL Alkaline Phosphatase 53 40 - 150 U/L Total Bilirubin 0.3 0.2 - 1.2 mg/dL Sodium 138 136 - 145 meq/L Potassium 3.9 3.5 - 5.1 meq/L Chloride 101 98 - 107 meq/L CO2 28 22 - 29 meq/L BUN 22 (H) 7 - 21 mg/dL Creatinine 0.98 0.57 - 1.25 mg/dL Glucose 154 (H) 70 - 105 mg/dL Calcium 10.1 8.4 - 10.2 mg/dL AST 20 5 - 34 U/L ALT 12 6 - 55 U/L EGFR 54Comment: ESTIMATED GFR IS NOT ACCURATE mL/min/1.73 sq m CREATININE CLEARANCE IN PREDICTING GLOMERULAR FILTRATION RATE. ESTIMATED GFR IS NOT APPLICABLE FOR DIALYSIS PATIENTS. Specimen Performing Laboratory Blood - Arm, Right [address] [address] [address] abdomen/pelvis with IV contrast (04/21/2018 3:44 AM) Specimen Performing Laboratory [facility] Narrative FINAL REPORT HISTORY : Abd pain, fever, abscess suspected Technique: Multiple axial images of the abdomen and pelvis were performed with the administration of IV and oral contrast from the lung bases to the pubic symphysis. Delayed images were also obtained. This exam was performed according to our departmental dose optimization program which includes automated exposure control, adjustment of the mA and/or kV according to patient size and/or use of iterative reconstructive technique. COMPARISON : None COMMENT : The lung bases are clear. The patient does have cardiomegaly. There is atherosclerotic vascular disease. The patient is status post cholecystectomy. There biliary ductal dilatation that could be a function of the patient's age as well as history of cholecystectomy. The findings should be correlated with LFTs and if indicated, an MRCP can be obtained. The visualized spleen, adrenal glands, pancreas, stomach and duodenum are within normal limits. The patient does have areas of bilateral renal cortical atrophy/scarring. Arising from the lower pole of the right kidney, there is an approximately 2.3 cm cyst. In addition, there is a total of two nonobstructing stones in the right kidney. There are also some too small to characterize renal hypodensities but which may represent cysts. There is a slightly hyperdense lesion identified arising from the left interpolar kidney measuring up to 1.0 cm with Hounsfield units of 31. All this may represent a cyst with some hemorrhagic/proteinaceous debris, a mass cannot be excluded. This can be best assessed with a CT/MRI, renal mass protocol. The patient appears to be status post aortic stent graft placement.. The findings should be correlated with the patient's surgical history. There appears to be some opacification of the excluded right common femoral artery and distal abdominal aorta. There is a left hepatic lobe cyst and some too small to characterize hepatic hypodensities but which may represent cysts. The left hepatic lobe cyst measures up to 1.7 cm. There is no abdominal, retroperitoneal or pelvic lymphadenopathy. Multilevel degenerative changes of the thoracolumbar spine are seen. Some nonspecific edema/infiltration is seen of the subcutaneous soft tissues/fat in the anterior abdominal wall, particularly in the pelvic region. While some of this could be due to scarring, the possibility of an infectious process such as cellulitis cannot be excluded. No definite fluid collections are seen. Some stranding/edema are also seen in the bilateral inguinal regions. There is no free fluid or free air in the abdomen or pelvis. No findings of any bowel obstruction. The small bowel is within normal limits. There is colonic diverticulosis. There are no CT findings to suggest diverticulitis, however. The appendix is not visualized. However, there are no secondary CT findings to suggest appendicitis. The patient is status post hysterectomy. No adnexal masses/lesions are appreciated. Impression: 1. Areas of likely postsurgical scar in the anterior abdominal wall. Some areas of subcutaneous edema and overlying skin thickening are seen in the anterior lower pelvic regions as well as in the bilateral renal regions. A process such as cellulitis cannot be excluded. No organized fluid collections are seen. 2. Right renal cyst and too small to characterize bilateral renal hypodensities/lesions and some nonobstructing right renal stones. 3. Status post cholecystectomy. There is biliary ductal dilatation. Please see above for details. Signed: Freya Turcios MD Report Verified Date/Time:04/21/2018 08:32:26 Reading Location: [facility] C013W Consult Reading Room Procedure Note Interface, External Ris In - 04/21/2018 8:34 AM CDT FINAL REPORT HISTORY : Abd pain, fever, abscess suspected Technique: Multiple axial images of the abdomen and pelvis were performed with the administration of IV and oral contrast from the lung bases to the pubic symphysis. Delayed images were also obtained. This exam was performed according to our departmental dose optimization program which includes automated exposure control, adjustment of the mA and/or kV according to patient size and/or use of iterative reconstructive technique. COMPARISON : None COMMENT : The lung bases are clear. The patient does have cardiomegaly. There is atherosclerotic vascular disease. The patient is status post cholecystectomy. There biliary ductal dilatation that could be a function of the patient's age as well as history of cholecystectomy. The findings should be correlated with LFTs and if indicated, an MRCP can be obtained. The visualized spleen, adrenal glands, pancreas, stomach and duodenum are within normal limits. The patient does have areas of bilateral renal cortical atrophy/scarring. Arising from the lower pole of the right kidney, there is an approximately 2.3 cm cyst. In addition, there is a total of two nonobstructing stones in the right kidney. There are also some too small to characterize renal hypodensities but which may represent cysts. There is a slightly hyperdense lesion identified arising from the left interpolar kidney measuring up to 1.0 cm with Hounsfield units of 31. All this may represent a cyst with some hemorrhagic/proteinaceous debris, a mass cannot be excluded. This can be best assessed with a CT/MRI, renal mass protocol. The patient appears to be status post aortic stent graft placement.. The findings should be correlated with the patient's surgical history. There appears to be some opacification of the excluded right common femoral artery and distal abdominal aorta. There is a left hepatic lobe cyst and some too small to characterize hepatic hypodensities but which may represent cysts. The left hepatic lobe cyst measures up to 1.7 cm. There is no abdominal, retroperitoneal or pelvic lymphadenopathy. Multilevel degenerative changes of the thoracolumbar spine are seen. Some nonspecific edema/infiltration is seen of the subcutaneous soft tissues/fat in the anterior abdominal wall, particularly in the pelvic region. While some of this could be due to scarring, the possibility of an infectious process such as cellulitis cannot be excluded. No definite fluid collections are seen. Some stranding/edema are also seen in the bilateral inguinal regions. There is no free fluid or free air in the abdomen or pelvis. No findings of any bowel obstruction. The small bowel is within normal limits. There is colonic diverticulosis. There are no CT findings to suggest diverticulitis, however. The appendix is not visualized. However, there are no secondary CT findings to suggest appendicitis. The patient is status post hysterectomy. No adnexal masses/lesions are appreciated. Impression: 1. Areas of likely postsurgical scar in the anterior abdominal wall. Some areas of subcutaneous edema and overlying skin thickening are seen in the anterior lower pelvic regions as well as in the bilateral renal regions. A process such as cellulitis cannot be excluded. No organized fluid collections are seen. 2. Right renal cyst and too small to characterize bilateral renal hypodensities/lesions and some nonobstructing right renal stones. 3. Status post cholecystectomy. There is biliary ductal dilatation. Please see above for details. Signed: Freya Turcios MD Report Verified Date/Time: 04/21/2018 08:32:26 Reading Location: [facility] B1 C013W Consult Reading Room Basic Metabolic Panel (04/20/2018 4:57 AM)Only the most recent of13 resultswithin the time period is included. Component Value Ref Range Sodium 142 136 - 145 meq/L Potassium 3.7 3.5 - 5.1 meq/L Chloride 102 98 - 107 meq/L CO2 30 (H) 22 - 29 meq/L BUN 22 (H) 7 - 21 mg/dL Creatinine 1.05 0.57 - 1.25 mg/dL Glucose 88 70 - 105 mg/dL Calcium 10.1 8.4 - 10.2 mg/dL EGFR 50Comment: ESTIMATED GFR IS NOT ACCURATE mL/min/1.73 sq m CREATININE CLEARANCE IN PREDICTING GLOMERULAR FILTRATION RATE. ESTIMATED GFR IS NOT APPLICABLE FOR DIALYSIS PATIENTS. Specimen Performing Laboratory Blood - Arm, Right [address] [address] Blood culture (04/19/2018 11:29 AM)Only the most recent of2 resultswithin the time period is included. Component Value Ref Range Result No growth in 5 days Specimen Performing Laboratory Blood - Arm, Right [address] [address] TSH/Free T4 If Indicated (04/19/2018 11:20 AM) Component Value Ref Range TSH 2.75 0.35 - 4.94 uIU/mL Specimen Performing Laboratory Blood - Arm, Left [address] [address] Magnesium (04/19/2018 11:20 AM)Only the most recent of6 resultswithin the time period is included. Component Value Ref Range Magnesium 2.2 1.6 - 2.6 mg/dL Specimen Performing Laboratory Blood - Arm, Left [address] [address] Wound culture + gram stain (04/19/2018 8:38 AM) Component Value Ref Range Result 4+ Pseudomonas aeruginosa (A) Result 4+ Pseudomonas aeruginosa (A)Comment: of a second type Result <1+ Klebsiella pneumoniae (A) Result 1+ Coagulase negative Staphylococcus (A) Result 4+ Pseudomonas aeruginosa (A)Comment: of a third type Result <1+ Coagulase negative Staphylococcus (A)Comment: of a second type Gram Stain Result <1+ WBCs Gram Stain Result <1+ gram negative rods Specimen Performing Laboratory Wound - Groin, Right [facility] [address] [address] Organism Antibiotic Method Susceptibility Pseudomonas aeruginosa Amikacin <=8: Susceptible Pseudomonas aeruginosa Aztreonam 4: Susceptible Pseudomonas aeruginosa Cefepime <=4: Susceptible Pseudomonas aeruginosa Ceftazidime <=1: Susceptible Pseudomonas aeruginosa Ciprofloxacin <=0.5: Susceptible Pseudomonas aeruginosa Doripenem <=0.5: Susceptible Pseudomonas aeruginosa Gentamicin <=2: Susceptible Pseudomonas aeruginosa Imipenem 1: Susceptible Pseudomonas aeruginosa Levofloxacin <=1: Susceptible Pseudomonas aeruginosa Meropenem <=0.5: Susceptible Pseudomonas aeruginosa Piperacillin <=16: Susceptible Pseudomonas aeruginosa Piperacillin + Tazobactam <=8: Susceptible Pseudomonas aeruginosa Tobramycin <=2: Susceptible Pseudomonas aeruginosa Amikacin <=8: Susceptible Pseudomonas aeruginosa Aztreonam 4: Susceptible Pseudomonas aeruginosa Cefepime <=4: Susceptible Pseudomonas aeruginosa Ceftazidime 2: Susceptible Pseudomonas aeruginosa Ciprofloxacin <=0.5: Susceptible Pseudomonas aeruginosa Doripenem <=0.5: Susceptible Pseudomonas aeruginosa Gentamicin <=2: Susceptible Pseudomonas aeruginosa Imipenem 2: Susceptible Pseudomonas aeruginosa Levofloxacin <=1: Susceptible Pseudomonas aeruginosa Meropenem <=0.5: Susceptible Pseudomonas aeruginosa Piperacillin <=16: Susceptible Pseudomonas aeruginosa Piperacillin + Tazobactam <=8: Susceptible Pseudomonas aeruginosa Tobramycin <=2: Susceptible Klebsiella pneumoniae Amikacin <=2: Susceptible Klebsiella pneumoniae Ampicillin + Sulbactam 16: Resistant Klebsiella pneumoniae Aztreonam <=1: Susceptible Klebsiella pneumoniae Cefepime <=1: Susceptible Klebsiella pneumoniae Cefoxitin >=64: Resistant Klebsiella pneumoniae Ceftazidime <=1: Susceptible Klebsiella pneumoniae Ceftriaxone <=1: Susceptible Klebsiella pneumoniae Ertapenem <=0.5: Susceptible Klebsiella pneumoniae Gentamicin <=1: Susceptible Klebsiella pneumoniae Levofloxacin 1: Susceptible Klebsiella pneumoniae Meropenem <=0.25: Susceptible Klebsiella pneumoniae Piperacillin + Tazobactam 16: Susceptible Klebsiella pneumoniae Tetracycline >=16: Resistant Klebsiella pneumoniae Tobramycin <=1: Susceptible Klebsiella pneumoniae Trimethoprim + <=20: Susceptible Sulfamethoxazole Coagulase negative Clindamycin >=4: Resistant Staphylococcus Coagulase negative Erythromycin >=8: Resistant Staphylococcus Coagulase negative Levofloxacin >=8: Resistant Staphylococcus Coagulase negative Linezolid 1: Susceptible Staphylococcus Coagulase negative Oxacillin >=4: Resistant Staphylococcus Coagulase negative Rifampin <=0.5: Susceptible Staphylococcus Coagulase negative Tetracycline 2: Susceptible Staphylococcus Coagulase negative Trimethoprim + 160: Resistant Staphylococcus Sulfamethoxazole Coagulase negative Vancomycin 3: Susceptible Staphylococcus Pseudomonas aeruginosa Amikacin <=8: Susceptible Pseudomonas aeruginosa Aztreonam 4: Susceptible Pseudomonas aeruginosa Cefepime <=4: Susceptible Pseudomonas aeruginosa Ceftazidime <=1: Susceptible Pseudomonas aeruginosa Ciprofloxacin <=0.5: Susceptible Pseudomonas aeruginosa Doripenem <=0.5: Susceptible Pseudomonas aeruginosa Gentamicin <=2: Susceptible Pseudomonas aeruginosa Imipenem 4: Resistant Pseudomonas aeruginosa Levofloxacin <=1: Susceptible Pseudomonas aeruginosa Meropenem 1: Susceptible Pseudomonas aeruginosa Piperacillin <=16: Susceptible Pseudomonas aeruginosa Piperacillin + Tazobactam <=8: Susceptible Pseudomonas aeruginosa Tobramycin <=2: Susceptible Potassium-Stat Lab (03/25/2018 10:53 AM)Only the most recent of5 resultswithin the time period is included. Component Value Ref Range Potassium 3.0 (L) 3.6 - 5.5 meq/L Specimen Performing Laboratory Blood, [address] [address] Glucose-Stat Lab (03/25/2018 10:53 AM)Only the most recent of6 resultswithin the time period is included. Component Value Ref Range Glucose 116 (H) 70 - 110 mg/dL Specimen Performing Laboratory Blood, [address] [address] HGB/HCT (H&H)-Stat Lab (03/25/2018 10:53 AM)Only the most recent of5 resultswithin the time period is included. Component Value Ref Range Hemoglobin 11.2 (L) 12.0 - 15.0 g/dL Hematocrit 33.0 (L) 36.0 - 45.0 % Specimen Performing Laboratory Blood, [address] [address] Anaerobic culture (03/25/2018 9:44 AM) Component Value Ref Range Result No anaerobes isolated Specimen Performing Laboratory Body Fluid - Abdomen [address] [address] Fungus culture + smear (03/25/2018 9:44 AM) Component Value Ref Range Result No fungus isolated in 28 days Fungus Smear <1+ hyphal elements seen Specimen Performing Laboratory Body Fluid - Abdomen [address] [address] Narrative See smear results. SPIN/CONCENTRATION CHARGE (03/25/2018 9:44 AM) Component Value Ref Range Concentration charged Done Specimen Performing Laboratory Body Fluid - Abdomen [address] [address] XR spine lumbar complete 4 views min [...] MD Report Verified Date/Time:03/23/2018 16:25:16 Reading Location: [address] Ortho Consult Reading Room Procedure Note Interface, [...] Report Verified Date/Time: 03/23/2018 16:25:16 Reading Location: [address] Ortho Consult Reading Room chest 1 view [...] MD Report Verified Date/Time:03/21/2018 08:03:21 Reading Location: [facility] Diagnostic Imaging Reading Room - [place] [address] Procedure Note Interface, External Ris In - [...] Report Verified Date/Time: 03/21/2018 08:03:21 Reading Location: [facility] Diagnostic Imaging Reading Room - [place] [address] Hemoglobin A1c (03/20/2018 4:54 AM) Component Value Ref Range Hemoglobin A1C 6.0 4.3 - 6.1 % Specimen Performing Laboratory Blood - Arm, [address] [address] XR abdomen / KUB 1 view (03/19/2018 [...] MD Report Verified Date/Time:03/19/2018 15:02:35 Reading Location: [facility] Radiology Reading Room Procedure Note Interface, External [...] Report Verified Date/Time: 03/19/2018 15:02:35 Reading Location: [facility] Radiology Reading Room Blood gas, arterial (03/19/2018 [...] 40.0 % Specimen Performing Laboratory Blood, Arterial [address] [address] Sputum Culture + Gram Stain (03/18/2018 7:44 PM) Component Value Ref Range Result 3+ Normal respiratory anu present Gram Stain Result <1+ WBCs Gram Stain Result 10-15 epithelial cells Gram Stain Result 1+ gram positive cocci in pairs Specimen Performing Laboratory Sputum - Endotracheal [address] [address] Potassium (03/18/2018 7:20 PM) Component Value Ref Range Potassium 3.7 3.5 - 5.1 meq/L Specimen Performing Laboratory Blood [address] [address] Narrative 8 hours after PO replacement completed Calcium, Ionized (03/18/2018 11:51 AM)Only the most recent of4 resultswithin the time period is included. Component Value Ref Range Calcium, Ion 1.25 1.12 - 1.27 mmol/L pH, Blood 7.37 Specimen Performing Laboratory Blood [address] [address] Lactic acid, venous, whole blood (03/18/2018 11:51 AM) Component Value Ref Range Lactate, Venous 1.0Comment: Specimen slightly hemolyzed 0.5 - 2.2 mmol/L Specimen Performing Laboratory Blood [address] [address] Narrative Effective 02/09/2016: Units/Reference Range Change New: 0.5-2.2 mmol/LPrevious: 5-20 mg/dL Phosphorus (03/18/2018 11:51 AM) Component Value Ref Range Phosphorus 3.9 2.3 - 4.7 mg/dL Specimen Performing Laboratory Blood [address] [address] Tissue Exam (03/18/2018 10:46 AM) Component Value Ref Range Case Report Surgical Pathology Report Case: [id number] Authorizing Provider:Billy Mcmanus, Collected: 03/18/2018 1046 Ordering Location: [facility] Received: 03/18/2018 1131 PERIOPERATIVE SERVICES Pathologist: Chris Caraballo MD Specimen:Plaque, AORTIC PLAQUE DIAGNOSIS AORTA, ATHERECTOMY: CALCIFIC ATHEROSCLEROTIC PLAQUE Signing Pathologist Direct Phone Line: [phone] CPT Code(s) 06537; 64698 CLINICAL HISTORY PAD SPECIMEN SOURCE Aortic plaque GROSS DESCRIPTION Received in saline labeled "plaque", description "aortic plaque" is a 4.5 x 3.5 x 0.6 cm aggregate of felix-white to yellow-panchal, rubbery, calcified fibrous tissue. Floor Winder sections are submitted in cassette A1 for decalcification. DB/ ew MICROSCOPIC DESCRIPTION Performed Specimen Performing Laboratory Tissue - Plaque [facility] [address] [address] [facility] (ABG,NA,K,H&H,GLUCOSE) (03/18/2018 10:29 AM)Only the most recent of3 resultswithin the time period is included. Specimen Performing Laboratory Blood, Arterial Narrative The following orders were created for panel order [facility] (ABG,NA,K,H&H,GLUCOSE). Procedure Abnormality Status --------- ------ Blood gas, arterial[[id number]]AbnormalFinal result Sodium Na-Stat Lab[[id number]] NormalFinal result Potassium-Stat Lab[[id number]] AbnormalFinal result Glucose-Stat Lab[[id number]] AbnormalFinal result HGB/HCT (H&H)-Stat Lab[[id number]] Normal Final result Please view results for these tests on the individual orders. Sodium Na-Stat Lab (03/18/2018 10:29 AM)Only the most recent of3 resultswithin the time period is included. Component Value Ref Range Sodium 141 135 - 148 meq/L Specimen Performing Laboratory Blood, Arterial [facility] [address] [address] Platelet Aggregation: Function Screen (03/18/2018 7:01 AM) Component Value Ref Range Weak ADP 63 60 - 91 % Plt. Function Screen Interpretation 60-100% indicates normal platelet function Pathologist: Teresa De León MD (electronic signature) Platelets 209 150 - 450 K/CU MM Specimen [place] [address] Narrative for patients on clopidogrel in past two weeks XR chest 2 views (03/11/2018 2:40 PM) Specimen Performing Laboratory GE RIS [...] MD Report Verified Date/Time:03/11/2018 14:44:31 Reading Location: [facility] B1 C013W Consult Reading Room Procedure Note Interface, External [...] Report Verified Date/Time: 03/11/2018 14:44:31 Reading Location: [facility] B1 C013W Consult Reading Room aPTT (03/11/2018 2:13 PM) Component Value Ref Range PTT 27.8 22.5 - 36.0 seconds Specimen Performing Laboratory Blood [facility] [address] [address] Electrocardiogram, 12-lead (03/11/2018 1:51 PM) Specimen Performing Laboratory GE MUSE Narrative Ventricular Rate 70 BPM Atrial Rate 72 BPM QRS Duration 186 ms Q-T Interval 476 ms QTC Calculation(Bazett) 514 ms R [place] 261 degrees T [place] 69 degrees Atrial fibrillation Electronic ventricular pacemaker No previous ECGs available Confirmed by Ruby MCWILLIAMS MICHAEL ([id number]) on 03/12/2018 8:38:53 AM Procedure Note Interface, External Ris In - 03/12/2018 8:39 AM CDT Ventricular Rate 70 BPM Atrial Rate 72 BPM QRS Duration 186 ms Q-T Interval 476 ms QTC Calculation(Bazett) 514 ms R [place] 261 degrees T [place] 69 degrees Atrial fibrillation Electronic ventricular pacemaker No previous ECGs available Confirmed by Ruby MCWILLIAMS MICHAEL ([id number]) on 03/12/2018 8:38:53 AM after 04/26/2017
--- OUTSIDE RECORDS SUMMARY | 2018-04-27 09:51 | XMS REPORT ---
:1935 Author Organization [facility] Address [address] [place] [address] Dr. Aguilar [address] [place] [id number] Care Team Providers Name Role Phone BILLY MCMANUS Unavailable Unavailable GABRIEL VARGAS Unavailable Unavailable Problems This patient has no known problems. Allergies, Adverse Reactions, Alerts This patient has no known allergies or adverse reactions. Medications This patient has no known medications. Results Test Description Test Time Test Comments Text Results Atomic Results Result Comments BLOOD CULTURE 2018-04-25 17:43:00 Test Item Value Reference Range Comments CULTURE (BEAKER) (test sxvg=1960) No growth in 5 days BLOOD [id number] 17:43:00 Test Item Value Reference Range Comments CULTURE (BEAKER) (test gsrf=8292) No growth in 5 days POCT-GLUCOSE [id number] 12:38:00 Test Item Value Reference Range Comments POC-GLUCOSE METER (BEAKER) 147 mg/dL 70-[address] [facility] [address] [facility] (test rxwm=9893) [facility] [address] WOUND CULTURE + GRAM [id number] 10:46:00 Test Item Value Reference Range Comments CULTURE (BEAKER) (test PSEUDOMONAS 4+ Pseudomonas cwfv=7718) AERUGINOSA aeruginosa Amikacin (test code=1) Susceptible 0-16 , Resistant <0 or >16 Aztreonam (test Susceptible 0-8 , code=32) Resistant <0 or >8 Cefepime (test code=51) Susceptible 0-8 , Resistant <0 or >8 Ceftazidime (test Susceptible 0-8 , code=27) Resistant <0 or >8 Ciprofloxacin (test Susceptible 0-1 , code=7) Resistant <0 or >1 Doripenem (test Susceptible 0-2 , rmqo=808) Resistant <0 or >2 Gentamicin (test Susceptible 0-4 , code=18) Resistant <0 or >4 Imipenem (test code=19) Susceptible 0-2 , Resistant <0 or >2 Levofloxacin (test Susceptible 0-2 , code=22) Resistant <0 or >2 Meropenem (test Susceptible 0-2 , code=34) Resistant <0 or >2 Piperacillin (test Susceptible 0-16 , code=24) Resistant <0 or >16 Piperacillin + Susceptible 0-16 , Tazobactam (test Resistant <0 or code=29) >16 Tobramycin (test Susceptible 0-4 , code=25) Resistant <0 or >4 CULTURE (BEAKER) (test PSEUDOMONAS 4+ Pseudomonas brgw=6178) AERUGINOSA aeruginosaof a second type Amikacin (test code=1) Susceptible 0-16 , Resistant <0 or >16 Aztreonam (test Susceptible 0-8 , code=32) Resistant <0 or >8 Cefepime (test code=51) Susceptible 0-8 , Resistant <0 or >8 Ceftazidime (test Susceptible 0-8 , code=27) Resistant <0 or >8 Ciprofloxacin (test Susceptible 0-1 , code=7) Resistant <0 or >1 Doripenem (test Susceptible 0-2 , knjy=882) Resistant <0 or >2 Gentamicin (test Susceptible 0-4 , code=18) Resistant <0 or >4 Imipenem (test code=19) Susceptible 0-2 , Resistant <0 or >2 Levofloxacin (test Susceptible 0-2 , code=22) Resistant <0 or >2 Meropenem (test Susceptible 0-2 , code=34) Resistant <0 or >2 Piperacillin (test Susceptible 0-16 , code=24) Resistant <0 or >16 Piperacillin + Susceptible 0-16 , Tazobactam (test Resistant <0 or code=29) >16 Tobramycin (test Susceptible 0-4 , code=25) Resistant <0 or >4 CULTURE (BEAKER) (test KLEBSIELLA PNEUMONIAE <1+ Klebsiella yjuz=6126) pneumoniae Amikacin (test code=1) Ampicillin + Sulbactam (test code=6) Aztreonam (test code=32) Cefepime (test code=51) Cefoxitin (test code=68) Ceftazidime (test code=27) Ceftriaxone (test code=52) Ertapenem (test code=38) Gentamicin (test code=18) Levofloxacin (test code=22) Meropenem (test code=34) Nitrofurantoin (test code=23) Piperacillin + Tazobactam (test code=29) Tetracycline (test code=2) Tobramycin (test code=25) Trimethoprim + Sulfamethoxazole (test code=47) CULTURE (BEAKER) (test COAGULASE NEGATIVE 1+ Coagulase negative fouj=7984) STAPHYLOCOCCUS Staphylococcus Clindamycin (test code=10) Erythromycin (test code=4) Levofloxacin (test code=22) Linezolid (test code=40) Nitrofurantoin (test code=23) Oxacillin (test code=14) Rifampin (test code=43) Tetracycline (test code=2) Trimethoprim + Sulfamethoxazole (test code=47) Vancomycin (test Susceptible 0-4 , code=13) Resistant <0 or >4 CULTURE (BEAKER) (test PSEUDOMONAS 4+ Pseudomonas riva=7836) AERUGINOSA aeruginosaof a third type Amikacin (test code=1) Susceptible 0-16 , Resistant <0 or >16 Aztreonam (test Susceptible 0-8 , code=32) Resistant <0 or >8 Cefepime (test code=51) Susceptible 0-8 , Resistant <0 or >8 Ceftazidime (test Susceptible 0-8 , code=27) Resistant <0 or >8 Ciprofloxacin (test Susceptible 0-1 , code=7) Resistant <0 or >1 Doripenem (test Susceptible 0-2 , hmwo=958) Resistant <0 or >2 Gentamicin (test Susceptible 0-4 , code=18) Resistant <0 or >4 Imipenem (test code=19) Susceptible 0-2 , Resistant <0 or >2 Levofloxacin (test Susceptible 0-2 , code=22) Resistant <0 or >2 Meropenem (test Susceptible 0-2 , code=34) Resistant <0 or >2 Piperacillin (test Susceptible 0-16 , code=24) Resistant <0 or >16 Piperacillin + Susceptible 0-16 , Tazobactam (test Resistant <0 or code=29) >16 Tobramycin (test Susceptible 0-4 , code=25) Resistant <0 or >4 CULTURE (BEAKER) (test <1+ Coagulase negative spvw=1202) Staphylococcusof a second type GRAM STAIN RESULT <1+ WBCs (BEAKER) (test mgrq=4288) GRAM STAIN RESULT <1+ gram negative (BEAKER) (test rods cmlc=394068) SURGICALLY OBTAINED CULTURE + GRAM [id number] 08:30:00 Test Item Value Reference Range Comments CULTURE (BEAKER) (test rmpa=4656) No growth GRAM STAIN RESULT (BEAKER) (test No WBCs gcpm=8383) GRAM STAIN RESULT (BEAKER) (test No organisms seen rbnf=02253) POCT-GLUCOSE [id number] 07:23:00 Test Item Value Reference Range Comments POC-GLUCOSE METER (BEAKER) 97 mg/dL 70-110 TESTED AT [address] (test qqwk=8187) [facility] [address] POCT-GLUCOSE [id number] 22:04:00 Test Item Value Reference Range Comments POC-GLUCOSE METER (BEAKER) 177 mg/dL 70-110 TESTED AT [address] (test ezem=9298) [facility] [address] POCT-GLUCOSE [id number] 17:38:00 Test Item Value Reference Range Comments POC-GLUCOSE METER (BEAKER) 232 mg/dL 70-110 TESTED AT [address] (test meme=9768) [facility] [address] POCT-GLUCOSE [id number] 12:40:00 Test Item Value Reference Range Comments POC-GLUCOSE METER (BEAKER) 139 mg/dL 70-110 TESTED AT [address] (test ajga=6534) [facility] [address] POCT-GLUCOSE [id number] 07:47:00 Test Item Value Reference Range Comments POC-GLUCOSE METER (BEAKER) 96 mg/dL 70-110 TESTED AT [address] (test hiug=7118) [facility] [address] POCT-GLUCOSE [id number] 04:52:00 Test Item Value Reference Range Comments POC-GLUCOSE METER (BEAKER) 112 mg/dL 70-110 TESTED AT [address] (test ijbk=8616) [facility] [address] POCT-GLUCOSE [id number] 23:28:00 Test Item Value Reference Range Comments POC-GLUCOSE METER (BEAKER) 114 mg/dL 70-110 TESTED AT [address] (test rtuj=6390) [facility] [address] POCT-GLUCOSE [id number] 17:12:00 Test Item Value Reference Range Comments POC-GLUCOSE METER (BEAKER) 155 mg/dL 70-110 TESTED AT [address] (test iqmh=0425) [facility] [address] POCT-GLUCOSE [id number] 12:17:00 Test Item Value Reference Range Comments POC-GLUCOSE METER (BEAKER) 163 mg/dL 70-110 TESTED AT [address] (test vgjj=7240) [facility] [address] FUNGUS CULTURE + [id number] 09:29:00 Test Item Value Reference Range Comments CULTURE (BEAKER) (test No fungus isolated in 28 days aape=4315) FUNGUS SMEAR (BEAKER) (test <1+ hyphal elements seen vrda=7418) See smear results.POCT-GLUCOSE [id number] 21:47:00 Test Item Value Reference Range Comments POC-GLUCOSE METER (BEAKER) 211 mg/dL 70-110 TESTED AT [address] (test lekm=9582) [facility] [address] POCT-GLUCOSE [id number] 17:07:00 Test Item Value Reference Range Comments POC-GLUCOSE METER (BEAKER) 160 mg/dL 70-110 TESTED AT [address] (test gond=6673) [facility] [address] POCT-GLUCOSE [id number] 11:56:00 Test Item Value Reference Range Comments POC-GLUCOSE METER (BEAKER) 108 mg/dL 70-110 TESTED AT [address] (test vxmk=1682) [facility] [address] COMPREHENSIVE METABOLIC [id number] 23:00:00 Test Item Value Reference Range Comments TOTAL PROTEIN (BEAKER) 7.5 gm/dL 6.0-8.3 (test lvpk=665) ALBUMIN (BEAKER) (test 3.8 g/dL 3.5-5.0 iqlk=6659) ALKALINE PHOSPHATASE 53 U/L 40-150 (BEAKER) (test myom=823) BILIRUBIN TOTAL (BEAKER) 0.3 mg/dL 0.2-1.2 (test rzcy=151) SODIUM (BEAKER) (test 138 meq/L 136-145 tjct=321) POTASSIUM (BEAKER) (test 3.9 meq/L 3.5-5.1 pynx=088) CHLORIDE (BEAKER) (test 101 meq/L 98-107 wmkb=673) CO2 (BEAKER) (test 28 meq/L 22-29 smst=848) BLOOD UREA NITROGEN 22 mg/dL 7-21 (BEAKER) (test bugb=816) CREATININE (BEAKER) (test 0.98 mg/dL 0.57-1.25 nmbz=060) GLUCOSE RANDOM (BEAKER) 154 mg/dL 70-105 (test jvvr=120) CALCIUM (BEAKER) (test 10.1 mg/dL 8.4-10.2 ackb=505) AST (SGOT) (BEAKER) (test 20 U/L 5-34 ztuk=742) ALT (SGPT) (BEAKER) (test 12 U/L 6-55 yczd=145) EGFR (BEAKER) (test 54 mL/min/1.73 sq m ESTIMATED GFR IS NOT kocc=0620) ACCURATE CREATININE CLEARANCE IN PREDICTING GLOMERULAR FILTRATION RATE. ESTIMATED GFR IS NOT APPLICABLE FOR DIALYSIS PATIENTS. PROTHROMBIN [id number] 22:52:00 Test Item Value Reference Range Comments PROTIME (BEAKER) (test kooz=931) 14.0 seconds 11.7-14.7 INR (BEAKER) (test hfcs=151) 1.1 <=5.9 RECOMMENDED COUMADIN/WARFARIN INR THERAPY RANGESSTANDARD DOSE: 2.0 - 3.0 Includes: PROPHYLAXIS forvenous thrombosis, systemic embolization; TREATMENT for venous thrombosis and/or pulmonary embolus.HIGH RISK: Target INR is 2.5-3.5 for patients with mechanical heart valves.CBC W/PLT COUNT & AUTO [id number] 22:51:00 Test Item Value Reference Range Comments WHITE BLOOD CELL COUNT (BEAKER) (test gkgc=228) 8.7 K/ L 3.5-10.5 RED BLOOD CELL COUNT (BEAKER) (test tfxz=101) 4.77 M/ L 3.93-5.22 HEMOGLOBIN (BEAKER) (test ypld=483) 13.6 GM/DL 11.2-15.7 HEMATOCRIT (BEAKER) (test gwem=346) 45.4 % 34.1-44.9 MEAN CORPUSCULAR VOLUME (BEAKER) (test nqwj=952) 95.2 fL 79.4-94.8 MEAN CORPUSCULAR HEMOGLOBIN (BEAKER) (test 28.5 pg 25.6-32.2 kpqq=847) MEAN CORPUSCULAR HEMOGLOBIN CONC (BEAKER) (test 30.0 GM/DL 32.2-35.5 wesp=055) RED CELL DISTRIBUTION WIDTH (BEAKER) (test 15.2 % 11.7-14.4 xker=010) PLATELET COUNT (BEAKER) (test dhbr=482) 267 K/CU MM 150-450 MEAN PLATELET VOLUME (BEAKER) (test zmin=464) 11.2 fL 9.4-12.3 NUCLEATED RED BLOOD CELLS (BEAKER) (test 0 /100 WBC 0-0 fzzt=305) NEUTROPHILS RELATIVE PERCENT (BEAKER) (test 73 % ywkk=427) LYMPHOCYTES RELATIVE PERCENT (BEAKER) (test 16 % wlhh=391) MONOCYTES RELATIVE PERCENT (BEAKER) (test 8 % mvxs=976) EOSINOPHILS RELATIVE PERCENT (BEAKER) (test 1 % mvhl=217) BASOPHILS RELATIVE PERCENT (BEAKER) (test 1 % fzvc=257) NEUTROPHILS ABSOLUTE COUNT (BEAKER) (test 6.38 K/ L 1.56-6.13 akye=733) LYMPHOCYTES ABSOLUTE COUNT (BEAKER) (test 1.37 K/ L 1.18-3.74 cqsh=518) MONOCYTES ABSOLUTE COUNT (BEAKER) (test 0.73 K/ L 0.24-0.36 lvgf=671) EOSINOPHILS ABSOLUTE COUNT (BEAKER) (test 0.12 K/ L 0.04-0.36 iizc=583) BASOPHILS ABSOLUTE COUNT (BEAKER) (test 0.08 K/ L 0.01-0.08 gbnw=334) IMMATURE GRANULOCYTES-RELATIVE PERCENT (BEAKER) 1 % 0-1 (test irek=8875) POCT-GLUCOSE [id number] 22:47:00 Test Item Value Reference Range Comments POC-GLUCOSE METER (BEAKER) 196 mg/dL 70-110 TESTED AT [address] (test uwbb=6722) [facility] [address] POCT-GLUCOSE [id number] 17:34:00 Test Item Value Reference Range Comments POC-GLUCOSE METER (BEAKER) 261 mg/dL 70-110 TESTED AT [address] (test wdqf=8695) [facility] [address] POCT-GLUCOSE [id number] 16:52:00 Test Item Value Reference Range Comments POC-GLUCOSE METER (BEAKER) 254 mg/dL 70-110 TESTED AT [address] (test dicy=0509) [facility] [address] POCT-GLUCOSE [id number] 12:24:00 Test Item Value Reference Range Comments POC-GLUCOSE METER (BEAKER) 168 mg/dL 70-110 TESTED AT [address] (test smhb=2565) [facility] [address] POCT-GLUCOSE [id number] 08:52:00 Test Item Value Reference Range Comments POC-GLUCOSE METER (BEAKER) 139 mg/dL 70-110 TESTED AT [address] (test sqvs=8238) [facility] [address] CT, [id number] 08:32:00S/p aortic-bilateral femoral bypass with right groin infectionFINAL REPORT HISTORY : Abd pain, fever, abscess suspected Technique: Multipleaxial images of the abdomen and pelvis were [...] does have areas of bilateral renal cortical atrophy/ scarring. Arising from the lower pole of the [...] There appears to be some opacification of theexcluded right common femoral artery and distal abdominal aorta. There is a left hepatic lobe cyst and some too small to characterize hepatic hypodensities but which may represent cysts. The left hepatic lobe cyst measures up to 1.7 cm. There is no abdominal, retroperitoneal or pelvic lymphadenopathy.Multilevel degenerative changes of the thoracolumbar spine are seen. Some nonspecific edema /infiltration is seen of the subcutaneous soft tissues/fat in the anterior abdominal wall, particularly in thepelvic region. While some of this could be due to scarring, the possibility of an infectious processsuch as cellulitis cannot be excluded. No definite fluid collections are seen. Some stranding/ edema are also seen in the bilateral inguinal regions. There is no free fluid or free air in the abdomen orpelvis. No findings of any bowel obstruction. The small bowel is within normal limits. There is colonic diverticulosis. There are no CT findings to suggest diverticulitis, however. The appendix is not visualized. However, there are no secondary CT findings to suggest appendicitis. The patient is status post hysterectomy. No adnexal masses/ lesions are appreciated. Impression: 1. Areas of likely [...] characterize bilateral renal hypodensities/lesions and some nonobstructing rightrenal stones. 3. Status post cholecystectomy. There is biliary ductal dilatation. Please see above for details. Signed: Freya Turcios MDReport Verified Date/Time: 04/21/2018 08:32:26 Reading [facility] Consult Reading Room 08: 32 AMPOCT-GLUCOSE [id number] 21:51:00 Test Item Value Reference Range Comments POC-GLUCOSE METER (BEAKER) 132 mg/dL 70-[address] [facility] [address] [place] [address] (test geqo=8942) [facility] [address] POCT-GLUCOSE [id number] 16:54:00 Test Item Value Reference Range Comments POC-GLUCOSE METER (BEAKER) 126 mg/dL 70-[address] [facility] [address] [facility] (test gfix=4664) [facility] [address] POCT-GLUCOSE [id number] 12:41:00 Test Item Value Reference Range Comments POC-GLUCOSE METER (BEAKER) 163 mg/dL 70-110 TESTED AT [place] [id number] [facility] (test ubjv=5280) [facility] [address] POCT-GLUCOSE [id number] 07:37:00 Test Item Value Reference Range Comments POC-GLUCOSE METER (BEAKER) 96 mg/dL 70-110 TESTED AT [address] (test tdxy=6165) [facility] [address] BASIC METABOLIC [id number] 06:21:00 Test Item Value Reference Range Comments SODIUM (BEAKER) (test 142 meq/L 136-145 dpax=639) POTASSIUM (BEAKER) (test 3.7 meq/L 3.5-5.1 pfdf=554) CHLORIDE (BEAKER) (test 102 meq/L 98-107 wwed=939) CO2 (BEAKER) (test 30 meq/L 22-29 ghah=393) BLOOD UREA NITROGEN 22 mg/dL 7-21 (BEAKER) (test oubi=142) CREATININE (BEAKER) (test 1.05 mg/dL 0.57-1.25 tklq=368) GLUCOSE RANDOM (BEAKER) 88 mg/dL 70-105 (test tgxd=232) CALCIUM (BEAKER) (test 10.1 mg/dL 8.4-10.2 dxli=524) EGFR (BEAKER) (test 50 mL/min/1.73 sq m ESTIMATED GFR IS NOT dexh=8002) ACCURATE CREATININE CLEARANCE IN PREDICTING GLOMERULAR FILTRATION RATE. ESTIMATED GFR IS NOT APPLICABLE FOR DIALYSIS PATIENTS. CBC W/PLT COUNT & AUTO [id number] 05:46:00 Test Item Value Reference Range Comments WHITE BLOOD CELL COUNT (BEAKER) (test wjkh=249) 7.0 K/ L 3.5-10.5 RED BLOOD CELL COUNT (BEAKER) (test rcqn=955) 5.52 M/ L 3.93-5.22 HEMOGLOBIN (BEAKER) (test ghvx=739) 15.6 GM/DL 11.2-15.7 HEMATOCRIT (BEAKER) (test apfh=194) 53.3 % 34.1-44.9 MEAN CORPUSCULAR VOLUME (BEAKER) (test ujlb=722) 96.6 fL 79.4-94.8 MEAN CORPUSCULAR HEMOGLOBIN (BEAKER) (test 28.3 pg 25.6-32.2 funa=546) MEAN CORPUSCULAR HEMOGLOBIN CONC (BEAKER) (test 29.3 GM/DL 32.2-35.5 nddw=944) RED CELL DISTRIBUTION WIDTH (BEAKER) (test 15.3 % 11.7-14.4 ilhc=168) PLATELET COUNT (BEAKER) (test hkhm=971) 257 K/CU MM 150-450 MEAN PLATELET VOLUME (BEAKER) (test dxkt=181) 11.5 fL 9.4-12.3 NUCLEATED RED BLOOD CELLS (BEAKER) (test 0 /100 WBC 0-0 qgnm=368) NEUTROPHILS RELATIVE PERCENT (BEAKER) (test 58 % gxen=341) LYMPHOCYTES RELATIVE PERCENT (BEAKER) (test 25 % dnfw=165) MONOCYTES RELATIVE PERCENT (BEAKER) (test 9 % oqvv=341) EOSINOPHILS RELATIVE PERCENT (BEAKER) (test 5 % esfm=944) BASOPHILS RELATIVE PERCENT (BEAKER) (test 2 % pliz=370) NEUTROPHILS ABSOLUTE COUNT (BEAKER) (test 4.05 K/ L 1.56-6.13 xglz=693) LYMPHOCYTES ABSOLUTE COUNT (BEAKER) (test 1.76 K/ L 1.18-3.74 htdm=100) MONOCYTES ABSOLUTE COUNT (BEAKER) (test 0.65 K/ L 0.24-0.36 semv=849) EOSINOPHILS ABSOLUTE COUNT (BEAKER) (test 0.33 K/ L 0.04-0.36 zdal=117) BASOPHILS ABSOLUTE COUNT (BEAKER) (test 0.12 K/ L 0.01-0.08 ypip=314) IMMATURE GRANULOCYTES-RELATIVE PERCENT (BEAKER) 1 % 0-1 (test wbcn=3042) POCT-GLUCOSE [id number] 21:11:00 Test Item Value Reference Range Comments POC-GLUCOSE METER (BEAKER) 152 mg/dL 70-[address] [facility] [address] [facility] (test desh=2456) [facility] [address] POCT-GLUCOSE [id number] 16:41:00 Test Item Value Reference Range Comments POC-GLUCOSE METER (BEAKER) 100 mg/dL 70-[address] [facility] [address] [facility] (test drsj=9406) [facility] [address] POCT-GLUCOSE [id number] 13:05:00 Test Item Value Reference Range Comments POC-GLUCOSE METER (BEAKER) 127 mg/dL 70-110 TESTED AT [address] (test afqh=1768) [facility] [address] TSH/FREE T4 IF [id number] 12:05:00 Test Item Value Reference Range Comments THYROID STIMULATING HORMONE (BEAKER) (test 2.75 uIU/mL 0.35-4.94 yprr=027) [id number] 11:48:00 Test Item Value Reference Range Comments MAGNESIUM (BEAKER) (test kjwu=312) 2.2 mg/dL 1.6-2.6 BASIC METABOLIC [id number] 11:48:00 Test Item Value Reference Range Comments SODIUM (BEAKER) (test 142 meq/L 136-145 ydtm=334) POTASSIUM (BEAKER) (test 3.7 meq/L 3.5-5.1 exnk=554) CHLORIDE (BEAKER) (test 103 meq/L 98-107 fnmd=229) CO2 (BEAKER) (test 30 meq/L 22-29 jswm=219) BLOOD UREA NITROGEN 27 mg/dL 7-21 (BEAKER) (test zqvj=886) CREATININE (BEAKER) (test 1.19 mg/dL 0.57-1.25 jrdf=211) GLUCOSE RANDOM (BEAKER) 112 mg/dL 70-105 (test erku=150) CALCIUM (BEAKER) (test 9.6 mg/dL 8.4-10.2 esab=528) EGFR (BEAKER) (test 43 mL/min/1.73 sq m ESTIMATED GFR IS NOT kjxp=0933) ACCURATE CREATININE CLEARANCE IN PREDICTING GLOMERULAR FILTRATION RATE. ESTIMATED GFR IS NOT APPLICABLE FOR DIALYSIS PATIENTS. POCT-GLUCOSE [id number] 11:40:00 Test Item Value Reference Range Comments POC-GLUCOSE METER (BEAKER) 118 mg/dL 70-110 TESTED AT [place] [id number] [facility] (test dgkd=8175) [facility] [address] CBC W/PLT COUNT & AUTO [id number] 11:30:00 Test Item Value Reference Range Comments WHITE BLOOD CELL COUNT (BEAKER) (test lrtk=289) 7.3 K/ L 3.5-10.5 RED BLOOD CELL COUNT (BEAKER) (test xrnw=460) 4.68 M/ L 3.93-5.22 HEMOGLOBIN (BEAKER) (test tpcr=162) 13.4 GM/DL 11.2-15.7 HEMATOCRIT (BEAKER) (test ezbd=112) 44.7 % 34.1-44.9 MEAN CORPUSCULAR VOLUME (BEAKER) (test ybib=245) 95.5 fL 79.4-94.8 MEAN CORPUSCULAR HEMOGLOBIN (BEAKER) (test 28.6 pg 25.6-32.2 rksw=942) MEAN CORPUSCULAR HEMOGLOBIN CONC (BEAKER) (test 30.0 GM/DL 32.2-35.5 ahoc=584) RED CELL DISTRIBUTION WIDTH (BEAKER) (test 15.5 % 11.7-14.4 yidc=025) PLATELET COUNT (BEAKER) (test mpvv=182) 260 K/CU MM 150-450 MEAN PLATELET VOLUME (BEAKER) (test jpps=651) 10.7 fL 9.4-12.3 NUCLEATED RED BLOOD CELLS (BEAKER) (test 0 /100 WBC 0-0 fbrc=540) NEUTROPHILS RELATIVE PERCENT (BEAKER) (test 70 % ovov=003) LYMPHOCYTES RELATIVE PERCENT (BEAKER) (test 19 % vpht=012) MONOCYTES RELATIVE PERCENT (BEAKER) (test 8 % alaj=164) EOSINOPHILS RELATIVE PERCENT (BEAKER) (test 2 % hakn=640) BASOPHILS RELATIVE PERCENT (BEAKER) (test 1 % hnxj=223) NEUTROPHILS ABSOLUTE COUNT (BEAKER) (test 5.11 K/ L 1.56-6.13 gjxb=123) LYMPHOCYTES ABSOLUTE COUNT (BEAKER) (test 1.37 K/ L 1.18-3.74 finz=076) MONOCYTES ABSOLUTE COUNT (BEAKER) (test 0.59 K/ L 0.24-0.36 fubn=222) EOSINOPHILS ABSOLUTE COUNT (BEAKER) (test 0.17 K/ L 0.04-0.36 wwvt=257) BASOPHILS ABSOLUTE COUNT (BEAKER) (test 0.07 K/ L 0.01-0.08 argf=722) IMMATURE GRANULOCYTES-RELATIVE PERCENT (BEAKER) 0 % 0-1 (test nkac=5239) ANAEROBIC [id number] 02:34:00 Test Item Value Reference Range Comments CULTURE (BEAKER) (test qeys=5341) No anaerobes isolated SURGICALLY OBTAINED CULTURE + GRAM [id number] 14:05:00 Test Item Value Reference Range Comments CULTURE (BEAKER) (test ffir=5972) No growth GRAM STAIN RESULT (BEAKER) (test 1+ WBCs uriq=6358) GRAM STAIN RESULT (BEAKER) (test No organisms seen vlxe=00181) POCT-GLUCOSE [id number] 12:39:00 Test Item Value Reference Range Comments POC-GLUCOSE METER (BEAKER) 131 mg/dL 70-110 TESTED AT [address] (test tsyy=2836) [place] [id number] POCT-GLUCOSE [id number] 08:01:00 Test Item Value Reference Range Comments POC-GLUCOSE METER (BEAKER) 106 mg/dL 70-110 TESTED AT [address] (test iejl=9780) [place] [id number] BASIC METABOLIC [id number] 06:21:00 Test Item Value Reference Range Comments SODIUM (BEAKER) (test 139 meq/L 136-145 ywto=095) POTASSIUM (BEAKER) (test 3.6 meq/L 3.5-5.1 owua=496) CHLORIDE (BEAKER) (test 102 meq/L 98-107 inky=147) CO2 (BEAKER) (test 27 meq/L 22-29 powi=734) BLOOD UREA NITROGEN 13 mg/dL 7-21 (BEAKER) (test eaqi=473) CREATININE (BEAKER) (test 0.70 mg/dL 0.57-1.25 ndyl=784) GLUCOSE RANDOM (BEAKER) 90 mg/dL 70-105 (test xehb=662) CALCIUM (BEAKER) (test 9.2 mg/dL 8.4-10.2 fdbh=256) EGFR (BEAKER) (test 80 mL/min/1.73 sq m ESTIMATED GFR IS NOT erqj=2653) ACCURATE CREATININE CLEARANCE IN PREDICTING GLOMERULAR FILTRATION RATE. ESTIMATED GFR IS NOT APPLICABLE FOR DIALYSIS PATIENTS. CBC W/PLT COUNT & AUTO [id number] 05:48:00 Test Item Value Reference Range Comments WHITE BLOOD CELL COUNT (BEAKER) (test awmh=277) 9.7 K/ L 3.5-10.5 RED BLOOD CELL COUNT (BEAKER) (test bcuk=064) 3.69 M/ L 3.93-5.22 HEMOGLOBIN (BEAKER) (test reto=200) 10.5 GM/DL 11.2-15.7 HEMATOCRIT (BEAKER) (test vmxq=950) 35.2 % 34.1-44.9 MEAN CORPUSCULAR VOLUME (BEAKER) (test rwqo=338) 95.4 fL 79.4-94.8 MEAN CORPUSCULAR HEMOGLOBIN (BEAKER) (test 28.5 pg 25.6-32.2 icqn=545) MEAN CORPUSCULAR HEMOGLOBIN CONC (BEAKER) (test 29.8 GM/DL 32.2-35.5 imuw=307) RED CELL DISTRIBUTION WIDTH (BEAKER) (test 14.6 % 11.7-14.4 jlxz=319) PLATELET COUNT (BEAKER) (test ckfd=873) 321 K/CU MM 150-450 MEAN PLATELET VOLUME (BEAKER) (test qbed=845) 10.6 fL 9.4-12.3 NUCLEATED RED BLOOD CELLS (BEAKER) (test 0 /100 WBC 0-0 gvdf=041) NEUTROPHILS RELATIVE PERCENT (BEAKER) (test 73 % dnvs=492) LYMPHOCYTES RELATIVE PERCENT (BEAKER) (test 15 % fafo=684) MONOCYTES RELATIVE PERCENT (BEAKER) (test 7 % fmnr=496) EOSINOPHILS RELATIVE PERCENT (BEAKER) (test 3 % crvp=096) BASOPHILS RELATIVE PERCENT (BEAKER) (test 1 % mqmo=834) NEUTROPHILS ABSOLUTE COUNT (BEAKER) (test 7.06 K/ L 1.56-6.13 qpft=287) LYMPHOCYTES ABSOLUTE COUNT (BEAKER) (test 1.42 K/ L 1.18-3.74 plax=946) MONOCYTES ABSOLUTE COUNT (BEAKER) (test 0.71 K/ L 0.24-0.36 cwwv=042) EOSINOPHILS ABSOLUTE COUNT (BEAKER) (test 0.27 K/ L 0.04-0.36 wfix=153) BASOPHILS ABSOLUTE COUNT (BEAKER) (test 0.05 K/ L 0.01-0.08 jjok=108) IMMATURE GRANULOCYTES-RELATIVE PERCENT (BEAKER) 2 % 0-1 (test mjbb=1949) POCT-GLUCOSE [id number] 21:47:00 Test Item Value Reference Range Comments POC-GLUCOSE METER (BEAKER) 161 mg/dL 70-110 TESTED AT [address] (test vmbx=6029) [place] [id number] POCT-GLUCOSE [id number] 17:08:00 Test Item Value Reference Range Comments POC-GLUCOSE METER (BEAKER) 189 mg/dL 70-110 TESTED AT [address] (test ucot=2690) [place] [id number] POCT-GLUCOSE [id number] 11:12:00 Test Item Value Reference Range Comments POC-GLUCOSE METER (BEAKER) 197 mg/dL 70-110 TESTED AT [address] (test koip=4736) [place] [id number] POCT-GLUCOSE [id number] 07:35:00 Test Item Value Reference Range Comments POC-GLUCOSE METER (BEAKER) 113 mg/dL 70-110 TESTED AT [address] (test poeh=3022) [place] [id number] BASIC METABOLIC [id number] 06:23:00 Test Item Value Reference Range Comments SODIUM (BEAKER) (test 137 meq/L 136-145 nvxg=133) POTASSIUM (BEAKER) (test 4.3 meq/L 3.5-5.1 zwlf=480) CHLORIDE (BEAKER) (test 101 meq/L 98-107 ykev=610) CO2 (BEAKER) (test 26 meq/L 22-29 fhor=828) BLOOD UREA NITROGEN 12 mg/dL 7-21 (BEAKER) (test otln=068) CREATININE (BEAKER) (test 0.70 mg/dL 0.57-1.25 mhvo=323) GLUCOSE RANDOM (BEAKER) 91 mg/dL 70-105 (test chus=877) CALCIUM (BEAKER) (test 9.3 mg/dL 8.4-10.2 magj=115) EGFR (BEAKER) (test 80 mL/min/1.73 sq m ESTIMATED GFR IS NOT jlog=7131) ACCURATE CREATININE CLEARANCE IN PREDICTING GLOMERULAR FILTRATION RATE. ESTIMATED GFR IS NOT APPLICABLE FOR DIALYSIS PATIENTS. CBC W/PLT COUNT & AUTO [id number] 06:12:00 Test Item Value Reference Range Comments WHITE BLOOD CELL COUNT (BEAKER) (test skpc=146) 11.9 K/ L 3.5-10.5 RED BLOOD CELL COUNT (BEAKER) (test ozfr=550) 3.65 M/ L 3.93-5.22 HEMOGLOBIN (BEAKER) (test vztx=669) 10.7 GM/DL 11.2-15.7 HEMATOCRIT (BEAKER) (test jhys=775) 35.3 % 34.1-44.9 MEAN CORPUSCULAR VOLUME (BEAKER) (test tmdl=753) 96.7 fL 79.4-94.8 MEAN CORPUSCULAR HEMOGLOBIN (BEAKER) (test 29.3 pg 25.6-32.2 dlwn=777) MEAN CORPUSCULAR HEMOGLOBIN CONC (BEAKER) (test 30.3 GM/DL 32.2-35.5 babt=054) RED CELL DISTRIBUTION WIDTH (BEAKER) (test 14.6 % 11.7-14.4 oqig=852) PLATELET COUNT (BEAKER) (test elbe=867) 277 K/CU MM 150-450 MEAN PLATELET VOLUME (BEAKER) (test ekew=101) 10.8 fL 9.4-12.3 NUCLEATED RED BLOOD CELLS (BEAKER) (test 0 /100 WBC 0-0 npeg=582) NEUTROPHILS RELATIVE PERCENT (BEAKER) (test 77 % ronc=189) LYMPHOCYTES RELATIVE PERCENT (BEAKER) (test 10 % hzqe=637) MONOCYTES RELATIVE PERCENT (BEAKER) (test 7 % yghr=490) EOSINOPHILS RELATIVE PERCENT (BEAKER) (test 2 % feww=258) BASOPHILS RELATIVE PERCENT (BEAKER) (test 1 % mmvf=844) NEUTROPHILS ABSOLUTE COUNT (BEAKER) (test 9.13 K/ L 1.56-6.13 xwom=725) LYMPHOCYTES ABSOLUTE COUNT (BEAKER) (test 1.19 K/ L 1.18-3.74 lguy=959) MONOCYTES ABSOLUTE COUNT (BEAKER) (test 0.87 K/ L 0.24-0.36 lhiz=538) EOSINOPHILS ABSOLUTE COUNT (BEAKER) (test 0.26 K/ L 0.04-0.36 isyd=817) BASOPHILS ABSOLUTE COUNT (BEAKER) (test 0.06 K/ L 0.01-0.08 dqqk=376) IMMATURE GRANULOCYTES-RELATIVE PERCENT (BEAKER) 3 % 0-1 (test yklo=1846) POCT-GLUCOSE [id number] 21:04:00 Test Item Value Reference Range Comments POC-GLUCOSE METER (BEAKER) 143 mg/dL 70-110 TESTED AT [address] (test malt=4184) [place] [address] POCT-GLUCOSE [id number] 17:04:00 Test Item Value Reference Range Comments POC-GLUCOSE METER (BEAKER) 182 mg/dL 70-110 TESTED AT [address] (test uzth=3258) [place] [address] SPIN/CONCENTRATION [id number] 15:07:00 Test Item Value Reference Range Comments CONCENTRATION CHARGED (BEAKER) (test rnwb=5791) Done POCT-GLUCOSE [id number] 11:38:00 Test Item Value Reference Range Comments POC-GLUCOSE METER (BEAKER) 141 mg/dL 70-110 TESTED AT [address] (test bhco=4738) [place] [address] POCT-GLUCOSE [id number] 08:13:00 Test Item Value Reference Range Comments POC-GLUCOSE METER (BEAKER) 122 mg/dL 70-110 TESTED AT [address] (test titr=7774) [place] [address] BASIC METABOLIC [id number] 05:20:00 Test Item Value Reference Range Comments SODIUM (BEAKER) (test 138 meq/L 136-145 mkma=058) POTASSIUM (BEAKER) (test 3.8 meq/L 3.5-5.1 bbop=666) CHLORIDE (BEAKER) (test 102 meq/L 98-107 hrwu=642) CO2 (BEAKER) (test 28 meq/L 22-29 svnv=072) BLOOD UREA NITROGEN 12 mg/dL 7-21 (BEAKER) (test swjn=125) CREATININE (BEAKER) (test 0.72 mg/dL 0.57-1.25 etxv=120) GLUCOSE RANDOM (BEAKER) 104 mg/dL 70-105 (test obgi=199) CALCIUM (BEAKER) (test 8.5 mg/dL 8.4-10.2 xqwu=940) EGFR (BEAKER) (test 77 mL/min/1.73 sq m ESTIMATED GFR IS NOT qrve=5344) ACCURATE CREATININE CLEARANCE IN PREDICTING GLOMERULAR FILTRATION RATE. ESTIMATED GFR IS NOT APPLICABLE FOR DIALYSIS PATIENTS. CBC W/PLT COUNT & AUTO [id number] 04:58:00 Test Item Value Reference Range Comments WHITE BLOOD CELL COUNT (BEAKER) (test qasm=683) 11.5 K/ L 3.5-10.5 RED BLOOD CELL COUNT (BEAKER) (test urft=884) 3.63 M/ L 3.93-5.22 HEMOGLOBIN (BEAKER) (test efus=614) 10.3 GM/DL 11.2-15.7 HEMATOCRIT (BEAKER) (test itin=548) 34.4 % 34.1-44.9 MEAN CORPUSCULAR VOLUME (BEAKER) (test uabu=031) 94.8 fL 79.4-94.8 MEAN CORPUSCULAR HEMOGLOBIN (BEAKER) (test 28.4 pg 25.6-32.2 yjky=797) MEAN CORPUSCULAR HEMOGLOBIN CONC (BEAKER) (test 29.9 GM/DL 32.2-35.5 rrcp=452) RED CELL DISTRIBUTION WIDTH (BEAKER) (test 14.8 % 11.7-14.4 gjjh=516) PLATELET COUNT (BEAKER) (test mypa=363) 266 K/CU MM 150-450 MEAN PLATELET VOLUME (BEAKER) (test dras=150) 10.8 fL 9.4-12.3 NUCLEATED RED BLOOD CELLS (BEAKER) (test 0 /100 WBC 0-0 mgzp=541) NEUTROPHILS RELATIVE PERCENT (BEAKER) (test 79 % canp=039) LYMPHOCYTES RELATIVE PERCENT (BEAKER) (test 8 % uyqv=942) MONOCYTES RELATIVE PERCENT (BEAKER) (test 7 % usqh=677) EOSINOPHILS RELATIVE PERCENT (BEAKER) (test 2 % cked=849) BASOPHILS RELATIVE PERCENT (BEAKER) (test 1 % xaav=109) NEUTROPHILS ABSOLUTE COUNT (BEAKER) (test 9.09 K/ L 1.56-6.13 uoes=364) LYMPHOCYTES ABSOLUTE COUNT (BEAKER) (test 0.90 K/ L 1.18-3.74 bhjg=664) MONOCYTES ABSOLUTE COUNT (BEAKER) (test 0.76 K/ L 0.24-0.36 srxt=044) EOSINOPHILS ABSOLUTE COUNT (BEAKER) (test 0.27 K/ L 0.04-0.36 kncr=702) BASOPHILS ABSOLUTE COUNT (BEAKER) (test 0.08 K/ L 0.01-0.08 gzzj=213) IMMATURE GRANULOCYTES-RELATIVE PERCENT (BEAKER) 4 % 0-1 (test ybsb=9262) POCT-GLUCOSE [id number] 21:18:00 Test Item Value Reference Range Comments POC-GLUCOSE METER (BEAKER) 147 mg/dL 70-110 TESTED AT [address] (test mkwv=1487) [facility] [address] TISSUE [id number] 15:55:00Surgical Pathology Report Case: [id number] Authorizing Provider: Billy Mcmanus, Collected: 03/18/2018 1046 OrderingLocation: [facility] Received: 2017 1131 [facility]IOPER[facility] SERVICES Pathologist: Chris Caraballo MD Specimen: Plaque, AORTIC PLAQUE AORTA, ATHERECTOMY:CALCIFIC ATHEROSCLEROTIC PLAQUE Signing Pathologist Direct Phone Line: [phone] by Chris Caraballo MD on 03/25/2018 at 3:55 [id number]; [id number] plaque Received in saline labeled "plaque", description "aortic plaque" is a 4.5 x 3.5 x 0.6 cm aggregate of felix-white to yellow-panchal, rubbery, calcified fibrous tissue.Imaging Engineer sections are submitted in cassette A1 for decalcification. DB/ew PerformedPOTASSIUM-STAT [id number] 11:04:00 Test Item Value Reference Range Comments POTASSIUM (BEAKER) (test dkrl=120) 3.0 meq/L 3.6-5.5 HGB/HCT (H&H) - STAT [id number] 11:04:00 Test Item Value Reference Range Comments HEMOGLOBIN (BEAKER) (test mqxi=355) 11.2 g/dL 12.0-15.0 HEMATOCRIT (BEAKER) (test wshq=309) 33.0 % 36.0-45.0 GLUCOSE-STAT [id number] 11:04:00 Test Item Value Reference Range Comments GLUCOSE RANDOM (BEAKER) (test vzhx=487) 116 mg/dL 70-110 POCT-GLUCOSE [id number] 07:01:00 Test Item Value Reference Range Comments POC-GLUCOSE METER (BEAKER) 91 mg/dL 70-110 TESTED AT [address] (test ldxf=5078) [facility] [address] BASIC METABOLIC [id number] 05:12:00 Test Item Value Reference Range Comments SODIUM (BEAKER) (test 140 meq/L 136-145 loky=317) POTASSIUM (BEAKER) (test 4.0 meq/L 3.5-5.1 epjd=822) CHLORIDE (BEAKER) (test 100 meq/L 98-107 gntb=469) CO2 (BEAKER) (test 34 meq/L 22-29 upue=934) BLOOD UREA NITROGEN 14 mg/dL 7-21 (BEAKER) (test widi=543) CREATININE (BEAKER) (test 0.75 mg/dL 0.57-1.25 kfka=819) GLUCOSE RANDOM (BEAKER) 100 mg/dL 70-105 (test iljs=350) CALCIUM (BEAKER) (test 9.2 mg/dL 8.4-10.2 ccvh=958) EGFR (BEAKER) (test 74 mL/min/1.73 sq m ESTIMATED GFR IS NOT yyle=1881) ACCURATE CREATININE CLEARANCE IN PREDICTING GLOMERULAR FILTRATION RATE. ESTIMATED GFR IS NOT APPLICABLE FOR DIALYSIS PATIENTS. CBC W/PLT COUNT & AUTO [id number] 04:36:00 Test Item Value Reference Range Comments WHITE BLOOD CELL COUNT (BEAKER) (test vjip=967) 11.1 K/ L 3.5-10.5 RED BLOOD CELL COUNT (BEAKER) (test jdkm=019) 3.57 M/ L 3.93-5.22 HEMOGLOBIN (BEAKER) (test tmzz=098) 10.3 GM/DL 11.2-15.7 HEMATOCRIT (BEAKER) (test fegm=879) 33.8 % 34.1-44.9 MEAN CORPUSCULAR VOLUME (BEAKER) (test sddf=013) 94.7 fL 79.4-94.8 MEAN CORPUSCULAR HEMOGLOBIN (BEAKER) (test 28.9 pg 25.6-32.2 wbtb=608) MEAN CORPUSCULAR HEMOGLOBIN CONC (BEAKER) (test 30.5 GM/DL 32.2-35.5 hqrh=206) RED CELL DISTRIBUTION WIDTH (BEAKER) (test 14.6 % 11.7-14.4 awlo=045) PLATELET COUNT (BEAKER) (test rkcb=839) 244 K/CU MM 150-450 MEAN PLATELET VOLUME (BEAKER) (test oojg=949) 10.7 fL 9.4-12.3 NUCLEATED RED BLOOD CELLS (BEAKER) (test 1 /100 WBC 0-0 kdrz=375) NEUTROPHILS RELATIVE PERCENT (BEAKER) (test 72 % thfl=096) LYMPHOCYTES RELATIVE PERCENT (BEAKER) (test 13 % eswz=971) MONOCYTES RELATIVE PERCENT (BEAKER) (test 9 % bnfz=334) EOSINOPHILS RELATIVE PERCENT (BEAKER) (test 2 % cchf=685) BASOPHILS RELATIVE PERCENT (BEAKER) (test 1 % jalh=010) NEUTROPHILS ABSOLUTE COUNT (BEAKER) (test 7.91 K/ L 1.56-6.13 pwyg=276) LYMPHOCYTES ABSOLUTE COUNT (BEAKER) (test 1.45 K/ L 1.18-3.74 wcyj=103) MONOCYTES ABSOLUTE COUNT (BEAKER) (test 1.00 K/ L 0.24-0.36 hdxr=126) EOSINOPHILS ABSOLUTE COUNT (BEAKER) (test 0.21 K/ L 0.04-0.36 odgf=754) BASOPHILS ABSOLUTE COUNT (BEAKER) (test 0.07 K/ L 0.01-0.08 mrek=858) IMMATURE GRANULOCYTES-RELATIVE PERCENT (BEAKER) 4 % 0-1 (test nafo=9931) POCT-GLUCOSE [id number] 21:06:00 Test Item Value Reference Range Comments POC-GLUCOSE METER (BEAKER) 152 mg/dL 70-110 TESTED AT [address] (test mvkb=7891) [facility] [address] POCT-GLUCOSE [id number] 17:43:00 Test Item Value Reference Range Comments POC-GLUCOSE METER (BEAKER) 155 mg/dL 70-110 TESTED AT [address] (test aakb=5808) [facility] [address] POCT-GLUCOSE [id number] 12:30:00 Test Item Value Reference Range Comments POC-GLUCOSE METER (BEAKER) 167 mg/dL 70-110 TESTED AT [address] (test zoan=6937) [facility] [address] POCT-GLUCOSE [id number] 07:13:00 Test Item Value Reference Range Comments POC-GLUCOSE METER (BEAKER) 111 mg/dL 70-110 TESTED AT [address] (test hefy=2668) [facility] [address] BASIC METABOLIC [id number] 05:33:00 Test Item Value Reference Range Comments SODIUM (BEAKER) (test 139 meq/L 136-145 wwcy=770) POTASSIUM (BEAKER) (test 3.9 meq/L 3.5-5.1 dwec=762) CHLORIDE (BEAKER) (test 102 meq/L 98-107 oknf=847) CO2 (BEAKER) (test 29 meq/L 22-29 yqop=347) BLOOD UREA NITROGEN 17 mg/dL 7-21 (BEAKER) (test puxy=826) CREATININE (BEAKER) (test 0.72 mg/dL 0.57-1.25 jxml=389) GLUCOSE RANDOM (BEAKER) 114 mg/dL 70-105 (test sync=179) CALCIUM (BEAKER) (test 8.8 mg/dL 8.4-10.2 fwqc=748) EGFR (BEAKER) (test 77 mL/min/1.73 sq m ESTIMATED GFR IS NOT bsnz=5304) ACCURATE CREATININE CLEARANCE IN PREDICTING GLOMERULAR FILTRATION RATE. ESTIMATED GFR IS NOT APPLICABLE FOR DIALYSIS PATIENTS. CBC W/PLT COUNT & AUTO [id number] 04:58:00 Test Item Value Reference Range Comments WHITE BLOOD CELL COUNT (BEAKER) (test fbrv=932) 9.9 K/ L 3.5-10.5 RED BLOOD CELL COUNT (BEAKER) (test qtau=300) 3.54 M/ L 3.93-5.22 HEMOGLOBIN (BEAKER) (test czuw=091) 10.2 GM/DL 11.2-15.7 HEMATOCRIT (BEAKER) (test sfpx=646) 33.7 % 34.1-44.9 MEAN CORPUSCULAR VOLUME (BEAKER) (test rsok=882) 95.2 fL 79.4-94.8 MEAN CORPUSCULAR HEMOGLOBIN (BEAKER) (test 28.8 pg 25.6-32.2 ggux=218) MEAN CORPUSCULAR HEMOGLOBIN CONC (BEAKER) (test 30.3 GM/DL 32.2-35.5 axab=749) RED CELL DISTRIBUTION WIDTH (BEAKER) (test 14.4 % 11.7-14.4 yzzq=822) PLATELET COUNT (BEAKER) (test jwhv=463) 226 K/CU MM 150-450 MEAN PLATELET VOLUME (BEAKER) (test idxt=527) 11.2 fL 9.4-12.3 NUCLEATED RED BLOOD CELLS (BEAKER) (test 0 /100 WBC 0-0 vtsl=353) NEUTROPHILS RELATIVE PERCENT (BEAKER) (test 73 % shyx=776) LYMPHOCYTES RELATIVE PERCENT (BEAKER) (test 14 % bfmb=948) MONOCYTES RELATIVE PERCENT (BEAKER) (test 9 % kihr=643) EOSINOPHILS RELATIVE PERCENT (BEAKER) (test 2 % sekl=206) BASOPHILS RELATIVE PERCENT (BEAKER) (test 1 % iewz=945) NEUTROPHILS ABSOLUTE COUNT (BEAKER) (test 7.15 K/ L 1.56-6.13 mexw=619) LYMPHOCYTES ABSOLUTE COUNT (BEAKER) (test 1.36 K/ L 1.18-3.74 icso=170) MONOCYTES ABSOLUTE COUNT (BEAKER) (test 0.87 K/ L 0.24-0.36 uowk=426) EOSINOPHILS ABSOLUTE COUNT (BEAKER) (test 0.18 K/ L 0.04-0.36 wolk=885) BASOPHILS ABSOLUTE COUNT (BEAKER) (test 0.07 K/ L 0.01-0.08 itot=544) IMMATURE GRANULOCYTES-RELATIVE PERCENT (BEAKER) 2 % 0-1 (test qsgg=3225) POCT-GLUCOSE [id number] 20:59:00 Test Item Value Reference Range Comments POC-GLUCOSE METER (BEAKER) 178 mg/dL 70-110 TESTED AT [address] (test sdlr=7044) [facility] [address] POCT-GLUCOSE [id number] 18:18:00 Test Item Value Reference Range Comments POC-GLUCOSE METER (BEAKER) 137 mg/dL 70-110 TESTED AT [address] (test apgk=0164) [facility] [address] RAD, SPINE, LUMBAR, COMPLETE (MIN 4 VIEWS)2018-03-23 [...] MDReport Verified Date/Time: 03/23/2018 16:25:16 Reading Location: [address] Ortho Consult Reading Room SPUTUM CULTURE + GRAM [id number] 10:41:00 Test Item Value Reference Range Comments CULTURE (BEAKER) (test 3+ Normal respiratory anu cvpf=4586) present GRAM STAIN RESULT (BEAKER) <1+ WBCs (test kqsv=7129) GRAM STAIN RESULT (BEAKER) 10-15 epithelial cells (test kjvr=47827) GRAM STAIN RESULT (BEAKER) 1+ gram positive cocci in pairs (test qrys=04783) POCT-GLUCOSE [id number] 08:09:00 Test Item Value Reference Range Comments POC-GLUCOSE METER (BEAKER) 94 mg/dL 70-[address] [facility] [address] [facility] (test evmk=2270) [facility] [address] BASIC METABOLIC [id number] 06:23:00 Test Item Value Reference Range Comments SODIUM (BEAKER) (test 142 meq/L 136-145 qogv=521) POTASSIUM (BEAKER) (test 3.3 meq/L 3.5-5.1 nenw=453) CHLORIDE (BEAKER) (test 102 meq/L 98-107 lfqb=379) CO2 (BEAKER) (test 27 meq/L 22-29 qpfx=107) BLOOD UREA NITROGEN 17 mg/dL 7-21 (BEAKER) (test yazc=536) CREATININE (BEAKER) (test 0.69 mg/dL 0.57-1.25 fdrv=692) GLUCOSE RANDOM (BEAKER) 81 mg/dL 70-105 (test gfyr=740) CALCIUM (BEAKER) (test 9.4 mg/dL 8.4-10.2 bjos=288) EGFR (BEAKER) (test 81 mL/min/1.73 sq m ESTIMATED GFR IS NOT dwpu=6353) ACCURATE CREATININE CLEARANCE IN PREDICTING GLOMERULAR FILTRATION RATE. ESTIMATED GFR IS NOT APPLICABLE FOR DIALYSIS PATIENTS. CBC W/PLT COUNT & AUTO [id number] 06:00:00 Test Item Value Reference Range Comments WHITE BLOOD CELL COUNT (BEAKER) (test xrld=747) 8.2 K/ L 3.5-10.5 RED BLOOD CELL COUNT (BEAKER) (test rngj=076) 4.03 M/ L 3.93-5.22 HEMOGLOBIN (BEAKER) (test sioz=426) 11.5 GM/DL 11.2-15.7 HEMATOCRIT (BEAKER) (test nmoa=250) 38.6 % 34.1-44.9 MEAN CORPUSCULAR VOLUME (BEAKER) (test hpwn=250) 95.8 fL 79.4-94.8 MEAN CORPUSCULAR HEMOGLOBIN (BEAKER) (test 28.5 pg 25.6-32.2 xfra=963) MEAN CORPUSCULAR HEMOGLOBIN CONC (BEAKER) (test 29.8 GM/DL 32.2-35.5 pknc=975) RED CELL DISTRIBUTION WIDTH (BEAKER) (test 14.5 % 11.7-14.4 aycg=714) PLATELET COUNT (BEAKER) (test twie=538) 214 K/CU MM 150-450 MEAN PLATELET VOLUME (BEAKER) (test ylwu=724) 11.5 fL 9.4-12.3 NUCLEATED RED BLOOD CELLS (BEAKER) (test 0 /100 WBC 0-0 vvwi=121) NEUTROPHILS RELATIVE PERCENT (BEAKER) (test 71 % kxzu=520) LYMPHOCYTES RELATIVE PERCENT (BEAKER) (test 17 % vngb=042) MONOCYTES RELATIVE PERCENT (BEAKER) (test 8 % byxd=642) EOSINOPHILS RELATIVE PERCENT (BEAKER) (test 3 % obgu=930) BASOPHILS RELATIVE PERCENT (BEAKER) (test 1 % jaam=154) NEUTROPHILS ABSOLUTE COUNT (BEAKER) (test 5.84 K/ L 1.56-6.13 sfee=087) LYMPHOCYTES ABSOLUTE COUNT (BEAKER) (test 1.36 K/ L 1.18-3.74 ylxh=315) MONOCYTES ABSOLUTE COUNT (BEAKER) (test 0.63 K/ L 0.24-0.36 ijnk=111) EOSINOPHILS ABSOLUTE COUNT (BEAKER) (test 0.24 K/ L 0.04-0.36 fccy=085) BASOPHILS ABSOLUTE COUNT (BEAKER) (test 0.07 K/ L 0.01-0.08 fbkq=857) IMMATURE GRANULOCYTES-RELATIVE PERCENT (BEAKER) 1 % 0-1 (test uyrf=8037) POCT-GLUCOSE [id number] 21:32:00 Test Item Value Reference Range Comments POC-GLUCOSE METER (BEAKER) 238 mg/dL 70-[address] [facility] [address] [facility] (test llmu=0950) [facility] [address] POCT-GLUCOSE [id number] 12:11:00 Test Item Value Reference Range Comments POC-GLUCOSE METER (BEAKER) 102 mg/dL 70-110 TESTED AT [address] (test pdvr=4462) [facility] [address] POCT-GLUCOSE [id number] 07:49:00 Test Item Value Reference Range Comments POC-GLUCOSE METER (BEAKER) 93 mg/dL 70-110 TESTED AT [address] (test rhlf=1065) [facility] [address] BASIC METABOLIC [id number] 06:14:00 Test Item Value Reference Range Comments SODIUM (BEAKER) (test 142 meq/L 136-145 cejs=989) POTASSIUM (BEAKER) (test 4.6 meq/L 3.5-5.1 lwua=617) CHLORIDE (BEAKER) (test 103 meq/L 98-107 rqml=283) CO2 (BEAKER) (test 32 meq/L 22-29 rfiu=601) BLOOD UREA NITROGEN 18 mg/dL 7-21 (BEAKER) (test vbnw=004) CREATININE (BEAKER) (test 0.73 mg/dL 0.57-1.25 ofxp=372) GLUCOSE RANDOM (BEAKER) 78 mg/dL 70-105 (test jjpo=636) CALCIUM (BEAKER) (test 9.3 mg/dL 8.4-10.2 usme=010) EGFR (BEAKER) (test 76 mL/min/1.73 sq m ESTIMATED GFR IS NOT frgf=9667) ACCURATE CREATININE CLEARANCE IN PREDICTING GLOMERULAR FILTRATION RATE. ESTIMATED GFR IS NOT APPLICABLE FOR DIALYSIS PATIENTS. CBC W/PLT COUNT & AUTO [id number] 05:44:00 Test Item Value Reference Range Comments WHITE BLOOD CELL COUNT (BEAKER) (test kcod=837) 9.0 K/ L 3.5-10.5 RED BLOOD CELL COUNT (BEAKER) (test ksgu=165) 3.81 M/ L 3.93-5.22 HEMOGLOBIN (BEAKER) (test fopw=718) 10.8 GM/DL 11.2-15.7 HEMATOCRIT (BEAKER) (test gxtc=178) 36.8 % 34.1-44.9 MEAN CORPUSCULAR VOLUME (BEAKER) (test mkcf=502) 96.6 fL 79.4-94.8 MEAN CORPUSCULAR HEMOGLOBIN (BEAKER) (test 28.3 pg 25.6-32.2 ympu=789) MEAN CORPUSCULAR HEMOGLOBIN CONC (BEAKER) (test 29.3 GM/DL 32.2-35.5 esbk=277) RED CELL DISTRIBUTION WIDTH (BEAKER) (test 14.7 % 11.7-14.4 pirm=109) PLATELET COUNT (BEAKER) (test xygv=282) 178 K/CU MM 150-450 MEAN PLATELET VOLUME (BEAKER) (test hxgt=532) 11.6 fL 9.4-12.3 NUCLEATED RED BLOOD CELLS (BEAKER) (test 0 /100 WBC 0-0 tbrk=311) NEUTROPHILS RELATIVE PERCENT (BEAKER) (test 75 % dnbd=955) LYMPHOCYTES RELATIVE PERCENT (BEAKER) (test 14 % cbfz=506) MONOCYTES RELATIVE PERCENT (BEAKER) (test 7 % lwli=108) EOSINOPHILS RELATIVE PERCENT (BEAKER) (test 3 % qvsw=656) BASOPHILS RELATIVE PERCENT (BEAKER) (test 1 % ihpo=981) NEUTROPHILS ABSOLUTE COUNT (BEAKER) (test 6.69 K/ L 1.56-6.13 dnis=608) LYMPHOCYTES ABSOLUTE COUNT (BEAKER) (test 1.29 K/ L 1.18-3.74 qeby=700) MONOCYTES ABSOLUTE COUNT (BEAKER) (test 0.65 K/ L 0.24-0.36 nmio=782) EOSINOPHILS ABSOLUTE COUNT (BEAKER) (test 0.22 K/ L 0.04-0.36 xdit=004) BASOPHILS ABSOLUTE COUNT (BEAKER) (test 0.05 K/ L 0.01-0.08 auqf=889) IMMATURE GRANULOCYTES-RELATIVE PERCENT (BEAKER) 1 % 0-1 (test dkpi=2221) POCT-GLUCOSE [id number] 21:06:00 Test Item Value Reference Range Comments POC-GLUCOSE METER (BEAKER) 116 mg/dL 70-[address] [facility] [address] [facility] (test pjfb=6845) [facility] [address] POCT-GLUCOSE [id number] 16:33:00 Test Item Value Reference Range Comments POC-GLUCOSE METER (BEAKER) 138 mg/dL 70-[address] [facility] [address] [facility] (test cbyp=7212) [facility] [address] POCT-GLUCOSE [id number] 12:15:00 Test Item Value Reference Range Comments POC-GLUCOSE METER (BEAKER) 150 mg/dL 70-110 TESTED AT [place] [id number] [facility] (test eyxr=4627) [facility] [address] POCT-GLUCOSE [id number] 09:03:00 Test Item Value Reference Range Comments POC-GLUCOSE METER (BEAKER) 101 mg/dL 70-110 TESTED AT [address] (test wuyg=6935) [facility] [address] RAD, CHEST, 1 VIEW, NON [id number] 08:03:00Reason for exam:->post cardiovascular procedureShould this be [...] Verified Date/ Time: 03/21/2018 08:03:21 Reading Location: [facility] Diagnostic Imaging Reading Room - [place] [address] Electronically signed by: FREYA TURCIOS M.D. on 2017 08:03 [id number] 04:37:00 Test Item Value Reference Range Comments MAGNESIUM (BEAKER) (test 1.9 mg/dL 1.6-2.6 Specimen slightly hemolyzed gsfh=266) BASIC METABOLIC [id number] 04:37:00 Test Item Value Reference Range Comments SODIUM (BEAKER) (test 141 meq/L 136-145 kebk=815) POTASSIUM (BEAKER) (test 4.0 meq/L 3.5-5.1 Specimen slightly esoc=000) hemolyzed CHLORIDE (BEAKER) (test 104 meq/L 98-107 mjep=810) CO2 (BEAKER) (test 27 meq/L 22-29 hhap=338) BLOOD UREA NITROGEN 28 mg/dL 7-21 (BEAKER) (test ujoq=578) CREATININE (BEAKER) (test 0.81 mg/dL 0.57-1.25 Specimen slightly ckzv=734) hemolyzed GLUCOSE RANDOM (BEAKER) 124 mg/dL 70-105 (test xxiu=911) CALCIUM (BEAKER) (test 9.8 mg/dL 8.4-10.2 mgbt=827) EGFR (BEAKER) (test 68 mL/min/1.73 sq m ESTIMATED GFR IS NOT mrij=8269) ACCURATE CREATININE CLEARANCE IN PREDICTING GLOMERULAR FILTRATION RATE. ESTIMATED GFR IS NOT APPLICABLE FOR DIALYSIS PATIENTS. CBC W/PLT COUNT & AUTO [id number] 04:27:00 Test Item Value Reference Range Comments WHITE BLOOD CELL COUNT (BEAKER) (test dswv=667) 13.9 K/ L 3.5-10.5 RED BLOOD CELL COUNT (BEAKER) (test hgnh=243) 3.73 M/ L 3.93-5.22 HEMOGLOBIN (BEAKER) (test wqbe=909) 11.1 GM/DL 11.2-15.7 HEMATOCRIT (BEAKER) (test gyod=522) 35.4 % 34.1-44.9 MEAN CORPUSCULAR VOLUME (BEAKER) (test aesi=139) 94.9 fL 79.4-94.8 MEAN CORPUSCULAR HEMOGLOBIN (BEAKER) (test 29.8 pg 25.6-32.2 lnrw=722) MEAN CORPUSCULAR HEMOGLOBIN CONC (BEAKER) (test 31.4 GM/DL 32.2-35.5 nksi=064) RED CELL DISTRIBUTION WIDTH (BEAKER) (test 14.8 % 11.7-14.4 myyu=211) PLATELET COUNT (BEAKER) (test thda=368) 173 K/CU MM 150-450 MEAN PLATELET VOLUME (BEAKER) (test aslr=877) 11.8 fL 9.4-12.3 NUCLEATED RED BLOOD CELLS (BEAKER) (test 0 /100 WBC 0-0 mqrk=454) NEUTROPHILS RELATIVE PERCENT (BEAKER) (test 90 % nbge=635) LYMPHOCYTES RELATIVE PERCENT (BEAKER) (test 5 % oopk=058) MONOCYTES RELATIVE PERCENT (BEAKER) (test 4 % ntba=730) EOSINOPHILS RELATIVE PERCENT (BEAKER) (test 1 % cyea=553) BASOPHILS RELATIVE PERCENT (BEAKER) (test 0 % lauu=616) NEUTROPHILS ABSOLUTE COUNT (BEAKER) (test 12.44 K/ L 1.56-6.13 ykqc=204) LYMPHOCYTES ABSOLUTE COUNT (BEAKER) (test 0.67 K/ L 1.18-3.74 klnj=962) MONOCYTES ABSOLUTE COUNT (BEAKER) (test 0.58 K/ L 0.24-0.36 phyo=473) EOSINOPHILS ABSOLUTE COUNT (BEAKER) (test 0.07 K/ L 0.04-0.36 tiwp=810) BASOPHILS ABSOLUTE COUNT (BEAKER) (test 0.04 K/ L 0.01-0.08 qyok=252) IMMATURE GRANULOCYTES-RELATIVE PERCENT (BEAKER) 1 % 0-1 (test uawr=9265) POCT-GLUCOSE [id number] 20:59:00 Test Item Value Reference Range Comments POC-GLUCOSE METER (BEAKER) 111 mg/dL 70-110 TESTED AT [address] (test mknl=6670) [place] [address] POCT-GLUCOSE [id number] 18:33:00 Test Item Value Reference Range Comments POC-GLUCOSE METER (BEAKER) 101 mg/dL 70-110 TESTED AT [address] (test xtbz=5031) [place] [address] POCT-GLUCOSE [id number] 16:33:00 Test Item Value Reference Range Comments POC-GLUCOSE METER (BEAKER) 128 mg/dL 70-110 TESTED AT [address] (test hkfd=7051) [place] [address] POCT-GLUCOSE [id number] 11:35:00 Test Item Value Reference Range Comments POC-GLUCOSE METER (BEAKER) 129 mg/dL 70-110 TESTED AT [address] (test pbnw=6893) [place] [address] HEMOGLOBIN [id number] 08:58:00 Test Item Value Reference Range Comments HEMOGLOBIN A1C (BEAKER) (test dgdm=646) 6.0 % 4.3-6.1 RAD, CHEST, 1 VIEW, NON [id number] 08:06:00Reason for exam:->post cardiovascular procedureShould this be [...] pacemaker. Signed: Alia Garrett MDReport Verified Date/Time: 03/20/2018 08:06:53 Reading Location: [facility] Radiology Reading Room POCT-GLUCOSE [id number] 06:21:00 Test Item Value Reference Range Comments POC-GLUCOSE METER (BEAKER) 133 mg/dL 70-[address] [facility] [address] [facility] (test loia=5174) [facility] [address] [id number] 06:00:00 Test Item Value Reference Range Comments MAGNESIUM (BEAKER) (test fqrb=556) 2.0 mg/dL 1.6-2.6 BASIC METABOLIC [id number] 06:00:00 Test Item Value Reference Range Comments SODIUM (BEAKER) (test 144 meq/L 136-145 rvhq=402) POTASSIUM (BEAKER) (test 3.9 meq/L 3.5-5.1 apdv=742) CHLORIDE (BEAKER) (test 107 meq/L 98-107 ztha=148) CO2 (BEAKER) (test 27 meq/L 22-29 mntx=445) BLOOD UREA NITROGEN 36 mg/dL 7-21 (BEAKER) (test tvas=854) CREATININE (BEAKER) (test 0.99 mg/dL 0.57-1.25 kvnp=959) GLUCOSE RANDOM (BEAKER) 123 mg/dL 70-105 (test nmuw=862) CALCIUM (BEAKER) (test 9.3 mg/dL 8.4-10.2 cuat=408) EGFR (BEAKER) (test 54 mL/min/1.73 sq m ESTIMATED GFR IS NOT yllp=3528) ACCURATE CREATININE CLEARANCE IN PREDICTING GLOMERULAR FILTRATION RATE. ESTIMATED GFR IS NOT APPLICABLE FOR DIALYSIS PATIENTS. CBC W/PLT COUNT & AUTO [id number] 05:39:00 Test Item Value Reference Range Comments WHITE BLOOD CELL COUNT (BEAKER) (test kcjs=560) 16.0 K/ L 3.5-10.5 RED BLOOD CELL COUNT (BEAKER) (test thvf=922) 4.19 M/ L 3.93-5.22 HEMOGLOBIN (BEAKER) (test ytco=750) 12.0 GM/DL 11.2-15.7 HEMATOCRIT (BEAKER) (test odus=160) 40.1 % 34.1-44.9 MEAN CORPUSCULAR VOLUME (BEAKER) (test lxun=876) 95.7 fL 79.4-94.8 MEAN CORPUSCULAR HEMOGLOBIN (BEAKER) (test 28.6 pg 25.6-32.2 grur=569) MEAN CORPUSCULAR HEMOGLOBIN CONC (BEAKER) (test 29.9 GM/DL 32.2-35.5 pgpi=530) RED CELL DISTRIBUTION WIDTH (BEAKER) (test 14.8 % 11.7-14.4 qwlx=835) PLATELET COUNT (BEAKER) (test mtgj=037) 166 K/CU MM 150-450 MEAN PLATELET VOLUME (BEAKER) (test gyta=272) 11.6 fL 9.4-12.3 NUCLEATED RED BLOOD CELLS (BEAKER) (test 0 /100 WBC 0-0 fjsq=048) NEUTROPHILS RELATIVE PERCENT (BEAKER) (test 90 % xnmn=314) LYMPHOCYTES RELATIVE PERCENT (BEAKER) (test 4 % amfg=581) MONOCYTES RELATIVE PERCENT (BEAKER) (test 4 % kdmk=116) EOSINOPHILS RELATIVE PERCENT (BEAKER) (test 0 % jcfp=459) BASOPHILS RELATIVE PERCENT (BEAKER) (test 0 % uobi=323) NEUTROPHILS ABSOLUTE COUNT (BEAKER) (test 14.45 K/ L 1.56-6.13 wjrx=731) LYMPHOCYTES ABSOLUTE COUNT (BEAKER) (test 0.66 K/ L 1.18-3.74 gjqb=472) MONOCYTES ABSOLUTE COUNT (BEAKER) (test 0.70 K/ L 0.24-0.36 vvce=079) EOSINOPHILS ABSOLUTE COUNT (BEAKER) (test 0.01 K/ L 0.04-0.36 ftkb=602) BASOPHILS ABSOLUTE COUNT (BEAKER) (test 0.06 K/ L 0.01-0.08 gpzd=355) IMMATURE GRANULOCYTES-RELATIVE PERCENT (BEAKER) 1 % 0-1 (test idaa=0785) POCT-GLUCOSE [id number] 00:24:00 Test Item Value Reference Range Comments POC-GLUCOSE METER (BEAKER) 117 mg/dL 70-110 TESTED AT [address] (test dqys=1953) [facility] [address] POCT-GLUCOSE [id number] 17:07:00 Test Item Value Reference Range Comments POC-GLUCOSE METER (BEAKER) 132 mg/dL 70-110 TESTED AT [address] (test ynva=3112) [facility] [address] RAD, ABDOMEN/KUB, 1 VIEW [id number] 15:02:00Reason for exam:->nausea and eructationsFINAL REPORT TECHNIQUE: [...] Glass Verified Date/Time: 03/19/2018 15:02:35 Reading Location: [facility] Radiology Reading Room POCT- GLUCOSE [id number] 10:23:00 Test Item Value Reference Range Comments POC-GLUCOSE METER (BEAKER) 111 mg/dL 70-110 TESTED AT [address] (test onlk=3159) [facility] [address] RAD, CHEST, 1 VIEW, NON [id number] 08:26:00Reason for exam:->post cardiovascular procedureShould this be [...] MDReport Verified Date/Time: 03/19/2018 08:26:26 Reading Location: [place] Radiology Reading Room POCT-GLUCOSE [id number] 06:09:00 Test Item Value Reference Range Comments POC-GLUCOSE METER (BEAKER) 120 mg/dL 70-110 TESTED AT [address] (test mbsf=9631) [facility] [address] POCT-GLUCOSE [id number] 06:09:00 Test Item Value Reference Range Comments POC-GLUCOSE METER (BEAKER) 120 mg/dL 70-110 TESTED AT [address] (test ecch=7768) [place] [address] [id number] 04:28:00 Test Item Value Reference Range Comments MAGNESIUM (BEAKER) (test 2.2 mg/dL 1.6-2.6 Specimen slightly hemolyzed tibo=403) BASIC METABOLIC [id number] 04:28:00 Test Item Value Reference Range Comments SODIUM (BEAKER) (test 141 meq/L 136-145 mvvq=742) POTASSIUM (BEAKER) (test 3.8 meq/L 3.5-5.1 Specimen slightly qtdo=924) hemolyzed CHLORIDE (BEAKER) (test 109 meq/L 98-107 iref=753) CO2 (BEAKER) (test 24 meq/L 22-29 rhyv=412) BLOOD UREA NITROGEN 30 mg/dL 7-21 (BEAKER) (test ypkl=241) CREATININE (BEAKER) (test 0.86 mg/dL 0.57-1.25 Specimen slightly ayyf=997) hemolyzed GLUCOSE RANDOM (BEAKER) 119 mg/dL 70-105 (test dmbl=051) CALCIUM (BEAKER) (test 8.9 mg/dL 8.4-10.2 hzla=434) EGFR (BEAKER) (test 63 mL/min/1.73 sq m ESTIMATED GFR IS NOT xwug=5442) ACCURATE CREATININE CLEARANCE IN PREDICTING GLOMERULAR FILTRATION RATE. ESTIMATED GFR IS NOT APPLICABLE FOR DIALYSIS PATIENTS. CBC W/PLT COUNT & AUTO [id number] 04:19:00 Test Item Value Reference Range Comments WHITE BLOOD CELL COUNT (BEAKER) (test ktdl=195) 12.8 K/ L 3.5-10.5 RED BLOOD CELL COUNT (BEAKER) (test kshb=836) 4.54 M/ L 3.93-5.22 HEMOGLOBIN (BEAKER) (test akgn=557) 12.9 GM/DL 11.2-15.7 HEMATOCRIT (BEAKER) (test mxpu=481) 43.3 % 34.1-44.9 MEAN CORPUSCULAR VOLUME (BEAKER) (test ajvm=682) 95.4 fL 79.4-94.8 MEAN CORPUSCULAR HEMOGLOBIN (BEAKER) (test 28.4 pg 25.6-32.2 faih=640) MEAN CORPUSCULAR HEMOGLOBIN CONC (BEAKER) (test 29.8 GM/DL 32.2-35.5 nwba=657) RED CELL DISTRIBUTION WIDTH (BEAKER) (test 14.8 % 11.7-14.4 jyff=631) PLATELET COUNT (BEAKER) (test suhg=484) 207 K/CU MM 150-450 MEAN PLATELET VOLUME (BEAKER) (test lwmk=033) 11.6 fL 9.4-12.3 NUCLEATED RED BLOOD CELLS (BEAKER) (test 0 /100 WBC 0-0 nzbf=369) NEUTROPHILS RELATIVE PERCENT (BEAKER) (test 87 % ocsu=968) LYMPHOCYTES RELATIVE PERCENT (BEAKER) (test 6 % rdwf=939) MONOCYTES RELATIVE PERCENT (BEAKER) (test 6 % mlyt=920) EOSINOPHILS RELATIVE PERCENT (BEAKER) (test 0 % tvsw=304) BASOPHILS RELATIVE PERCENT (BEAKER) (test 1 % hcog=640) NEUTROPHILS ABSOLUTE COUNT (BEAKER) (test 11.16 K/ L 1.56-6.13 yjkf=846) LYMPHOCYTES ABSOLUTE COUNT (BEAKER) (test 0.71 K/ L 1.18-3.74 yocn=156) MONOCYTES ABSOLUTE COUNT (BEAKER) (test 0.74 K/ L 0.24-0.36 kiba=627) EOSINOPHILS ABSOLUTE COUNT (BEAKER) (test 0.02 K/ L 0.04-0.36 zebb=608) BASOPHILS ABSOLUTE COUNT (BEAKER) (test 0.07 K/ L 0.01-0.08 yffq=212) IMMATURE GRANULOCYTES-RELATIVE PERCENT (BEAKER) 1 % 0-1 (test cmox=1815) BLOOD GAS, [id number] 04:01:00 Test Item Value Reference Range Comments PH ARTERIAL (BEAKER) (test ltgj=977) 7.37 7.35-7.45 PCO2 ARTERIAL (BEAKER) (test pjxb=953) 47 mmHg 35-45 PO2 ARTERIAL (BEAKER) (test niwv=701) 68 mmHg 80-90 O2 SATURATION ARTERIAL (BEAKER) (test soui=032) 92.4 % 96.0-97.0 HCO3 ARTERIAL (BEAKER) (test lvej=436) 26 mmol/L 21-29 BASE EXCESS ARTERIAL (BEAKER) (test epmc=291) 0.6 mmol/L -2.0-3.0 PATIENT TEMPERATURE (BEAKER) (test rikx=2637) 37.4 C FIO2 (BEAKER) (test npfk=8592) 40.0 % BLOOD GAS, [id number] 22:23:00 Test Item Value Reference Range Comments PH ARTERIAL (BEAKER) (test qgnm=011) 7.40 7.35-7.45 PCO2 ARTERIAL (BEAKER) (test nsiz=876) 42 mmHg 35-45 PO2 ARTERIAL (BEAKER) (test gflg=441) 150 mmHg 80-90 O2 SATURATION ARTERIAL (BEAKER) (test feei=689) 98.9 % 96.0-97.0 HCO3 ARTERIAL (BEAKER) (test yqjj=636) 25 mmol/L 21-29 BASE EXCESS ARTERIAL (BEAKER) (test ytfe=213) 0.2 mmol/L -2.0-3.0 PATIENT TEMPERATURE (BEAKER) (test ehxj=2069) 36.6 C FIO2 (BEAKER) (test udaf=8083) 40.0 % GLUCOSE-STAT [id number] 22:23:00 Test Item Value Reference Range Comments GLUCOSE RANDOM (BEAKER) (test cqwg=228) 140 mg/dL 70-110 [id number] 20:01:00 Test Item Value Reference Range Comments POTASSIUM (BEAKER) (test xjqq=223) 3.7 meq/L 3.5-5.1 8 hours after PO replacement [id number] 20:01:00 Test Item Value Reference Range Comments MAGNESIUM (BEAKER) (test ccgf=308) 2.2 mg/dL 1.6-2.6 8 hours after PO replacement completedBLOOD GAS, [id number] 19:27:00 Test Item Value Reference Range Comments PH ARTERIAL (BEAKER) (test fmit=990) 7.40 7.35-7.45 PCO2 ARTERIAL (BEAKER) (test xkgs=329) 40 mmHg 35-45 PO2 ARTERIAL (BEAKER) (test esls=308) 93 mmHg 80-90 O2 SATURATION ARTERIAL (BEAKER) (test jnqq=362) 97.3 % 96.0-97.0 HCO3 ARTERIAL (BEAKER) (test rrzx=575) 25 mmol/L 21-29 BASE EXCESS ARTERIAL (BEAKER) (test drfv=891) -0.1 mmol/L -2.0-3.0 PATIENT TEMPERATURE (BEAKER) (test hyzc=7456) 36.6 C FIO2 (BEAKER) (test ddfc=9400) 40.0 % POCT-GLUCOSE [id number] 19:09:00 Test Item Value Reference Range Comments POC-GLUCOSE METER (BEAKER) 123 mg/dL 70-110 TESTED AT [address] (test ajae=5692) [place] [address] POCT-GLUCOSE [id number] 18:02:00 Test Item Value Reference Range Comments POC-GLUCOSE METER (BEAKER) 108 mg/dL 70-110 TESTED AT [address] (test qfbk=3728) [place] [id number] POCT-GLUCOSE [id number] 17:06:00 Test Item Value Reference Range Comments POC-GLUCOSE METER (BEAKER) 103 mg/dL 70-110 TESTED AT [address] (test tnnq=3423) [place] [id number] POCT-GLUCOSE [id number] 16:00:00 Test Item Value Reference Range Comments POC-GLUCOSE METER (BEAKER) 121 mg/dL 70-110 TESTED AT [address] (test egkv=8924) [place] [address] POCT-GLUCOSE [id number] 15:45:00 Test Item Value Reference Range Comments POC-GLUCOSE METER (BEAKER) 146 mg/dL 70-110 TESTED AT [address] (test msar=0832) [place] [id number] BLOOD GAS, [id number] 15:25:00 Test Item Value Reference Range Comments PH ARTERIAL (BEAKER) (test wlgb=113) 7.33 7.35-7.45 PCO2 ARTERIAL (BEAKER) (test npbz=737) 49 mmHg 35-45 PO2 ARTERIAL (BEAKER) (test tsec=587) 84 mmHg 80-90 O2 SATURATION ARTERIAL (BEAKER) (test xjck=920) 95.8 % 96.0-97.0 HCO3 ARTERIAL (BEAKER) (test vzow=969) 25 mmol/L 21-29 BASE EXCESS ARTERIAL (BEAKER) (test rnjy=037) -1.3 mmol/L -2.0-3.0 PATIENT TEMPERATURE (BEAKER) (test ibnp=2373) 36.6 C FIO2 (BEAKER) (test uhtk=6040) 40.0 % PLATELET AGGREGATION: FUNCTION [id number] 13:34:00 Test Item Value Reference Range Comments WEAK ADP RESULT(BEAKER) (test 63 % 60-91 yduq=6442) PLATELET FUNCTION SCREEN 60-100% indicates normal INTERP (BEAKER) (test platelet function ybek=9580) [id number] (BEAKER) Teresa De León MD (electronic (test solg=2527) signature) PLATELET COUNT AGG (BEAKER) 209 K/CU MM 150-450 (test sexr=8416) for patients on clopidogrel in past two weeksRAD, CHEST, 1 VIEW, NON [id number] 13:15:00Reason for exam:->post cardiovascular procedureShould this [...] MDReport Verified Date/Time: 03/18/2018 13:15:44 Reading [id number] Consult Reading Room [id number] 13:04:00 Test Item Value Reference Range Comments MAGNESIUM (BEAKER) (test dcch=057) 1.8 mg/dL 1.6-2.6 BASIC METABOLIC [id number] 13:04:00 Test Item Value Reference Range Comments SODIUM (BEAKER) (test 140 meq/L 136-145 hihr=352) POTASSIUM (BEAKER) (test 3.0 meq/L 3.5-5.1 jbth=379) CHLORIDE (BEAKER) (test 109 meq/L 98-107 nmte=539) CO2 (BEAKER) (test 23 meq/L 22-29 yrhp=864) BLOOD UREA NITROGEN 29 mg/dL 7-21 (BEAKER) (test eqii=561) CREATININE (BEAKER) (test 0.89 mg/dL 0.57-1.25 xpeu=924) GLUCOSE RANDOM (BEAKER) 142 mg/dL 70-105 (test iioe=389) CALCIUM (BEAKER) (test 9.3 mg/dL 8.4-10.2 qddy=286) EGFR (BEAKER) (test 61 mL/min/1.73 sq m ESTIMATED GFR IS NOT khzs=6082) ACCURATE CREATININE CLEARANCE IN PREDICTING GLOMERULAR FILTRATION RATE. ESTIMATED GFR IS NOT APPLICABLE FOR DIALYSIS PATIENTS. [id number] 12:43:00 Test Item Value Reference Range Comments PHOSPHORUS (BEAKER) (test fynh=804) 3.9 mg/dL 2.3-4.7 LACTIC ACID, VENOUS, WHOLE [id number] 12:15:00 Test Item Value Reference Range Comments LACTATE BLOOD VENOUS (2) 1.0 mmol/L 0.5-2.2 Specimen slightly hemolyzed (BEAKER) (test sriy=4783) Effective 02/09/2016: Units/Reference Range ChangeNew: 0.5-2.2 mmol/L Previous: 5 -20 mg/dLCBC W/PLT COUNT & AUTO [id number] 12:06:00 Test Item Value Reference Range Comments WHITE BLOOD CELL COUNT (BEAKER) (test qkfg=091) 14.3 K/ L 3.5-10.5 RED BLOOD CELL COUNT (BEAKER) (test syll=103) 4.44 M/ L 3.93-5.22 HEMOGLOBIN (BEAKER) (test lchl=626) 12.9 GM/DL 11.2-15.7 HEMATOCRIT (BEAKER) (test pwdi=845) 41.8 % 34.1-44.9 MEAN CORPUSCULAR VOLUME (BEAKER) (test ndjd=423) 94.1 fL 79.4-94.8 MEAN CORPUSCULAR HEMOGLOBIN (BEAKER) (test 29.1 pg 25.6-32.2 cjvl=921) MEAN CORPUSCULAR HEMOGLOBIN CONC (BEAKER) (test 30.9 GM/DL 32.2-35.5 lmvg=063) RED CELL DISTRIBUTION WIDTH (BEAKER) (test 14.5 % 11.7-14.4 ypcw=996) PLATELET COUNT (BEAKER) (test akpw=515) 176 K/CU MM 150-450 MEAN PLATELET VOLUME (BEAKER) (test tffm=101) 11.4 fL 9.4-12.3 NUCLEATED RED BLOOD CELLS (BEAKER) (test 0 /100 WBC 0-0 xlwb=573) NEUTROPHILS RELATIVE PERCENT (BEAKER) (test 91 % vbtf=474) LYMPHOCYTES RELATIVE PERCENT (BEAKER) (test 6 % rgyp=008) MONOCYTES RELATIVE PERCENT (BEAKER) (test 1 % srch=761) EOSINOPHILS RELATIVE PERCENT (BEAKER) (test 0 % nmgu=458) BASOPHILS RELATIVE PERCENT (BEAKER) (test 1 % lakt=529) NEUTROPHILS ABSOLUTE COUNT (BEAKER) (test 13.02 K/ L 1.56-6.13 pjei=801) LYMPHOCYTES ABSOLUTE COUNT (BEAKER) (test 0.84 K/ L 1.18-3.74 zons=809) MONOCYTES ABSOLUTE COUNT (BEAKER) (test 0.09 K/ L 0.24-0.36 ujmw=518) EOSINOPHILS ABSOLUTE COUNT (BEAKER) (test 0.05 K/ L 0.04-0.36 wxul=201) BASOPHILS ABSOLUTE COUNT (BEAKER) (test 0.08 K/ L 0.01-0.08 ytvb=103) IMMATURE GRANULOCYTES-RELATIVE PERCENT (BEAKER) 2 % 0-1 (test witz=7278) HGB/HCT (H&H) - STAT [id number] 12:01:00 Test Item Value Reference Range Comments HEMOGLOBIN (BEAKER) (test kmey=940) 13.8 g/dL 12.0-15.0 HEMATOCRIT (BEAKER) (test kyuw=965) 41.0 % 36.0-45.0 CALCIUM, [id number] 12:01:00 Test Item Value Reference Range Comments CALCIUM IONIZED (BEAKER) (test rrzx=294) 1.25 mmol/L 1.12-1.27 PH, BLOOD (BEAKER) (test iizd=0930) 7.37 BLOOD GAS, [id number] 12:01:00 Test Item Value Reference Range Comments PH ARTERIAL (BEAKER) (test lwwl=005) 7.38 7.35-7.45 PCO2 ARTERIAL (BEAKER) (test sbzo=762) 46 mmHg 35-45 PO2 ARTERIAL (BEAKER) (test mxnk=769) 214 mmHg 80-90 O2 SATURATION ARTERIAL (BEAKER) (test eycv=613) 99.4 % 96.0-97.0 HCO3 ARTERIAL (BEAKER) (test lxgl=711) 26 mmol/L 21-29 BASE EXCESS ARTERIAL (BEAKER) (test dwxw=599) 0.5 mmol/L -2.0-3.0 PATIENT TEMPERATURE (BEAKER) (test mlpe=2242) 36.7 C FIO2 (BEAKER) (test oszk=1527) 60.0 % POTASSIUM-STAT [id number] 12:01:00 Test Item Value Reference Range Comments POTASSIUM (BEAKER) (test zrjf=246) 3.0 meq/L 3.6-5.5 GLUCOSE-STAT [id number] 12:01:00 Test Item Value Reference Range Comments GLUCOSE RANDOM (BEAKER) (test mwhc=002) 139 mg/dL 70-110 BLOOD GAS, [id number] 10:42:00 Test Item Value Reference Range Comments PH ARTERIAL (BEAKER) (test cafr=772) 7.39 7.35-7.45 PCO2 ARTERIAL (BEAKER) (test qnhq=583) 45 mmHg 35-45 PO2 ARTERIAL (BEAKER) (test cqxz=195) 260 mmHg 80-90 O2 SATURATION ARTERIAL (BEAKER) (test pmdb=726) 99.6 % 96.0-97.0 HCO3 ARTERIAL (BEAKER) (test apqm=182) 26 mmol/L 21-29 BASE EXCESS ARTERIAL (BEAKER) (test twjk=719) 0.7 mmol/L -2.0-3.0 PATIENT TEMPERATURE (BEAKER) (test vtei=0144) 36.7 C FIO2 (BEAKER) (test dpus=0869) 50.0 % POTASSIUM-STAT [id number] 10:42:00 Test Item Value Reference Range Comments POTASSIUM (BEAKER) (test qjlw=679) 3.1 meq/L 3.6-5.5 GLUCOSE-STAT [id number] 10:42:00 Test Item Value Reference Range Comments GLUCOSE RANDOM (BEAKER) (test paci=505) 139 mg/dL 70-110 CALCIUM, [id number] 10:41:00 Test Item Value Reference Range Comments CALCIUM IONIZED (BEAKER) (test spdd=363) 1.27 mmol/L 1.12-1.27 PH, BLOOD (BEAKER) (test mizm=8810) 7.38 SODIUM NA-STAT [id number] 10:40:00 Test Item Value Reference Range Comments SODIUM (BEAKER) (test iwnn=142) 141 meq/L 135-148 HGB/HCT (H&H) - STAT [id number] 10:40:00 Test Item Value Reference Range Comments HEMOGLOBIN (BEAKER) (test evnr=552) 13.7 g/dL 12.0-15.0 HEMATOCRIT (BEAKER) (test znlt=260) 40.0 % 36.0-45.0 BLOOD GAS, [id number] 09:53:00 Test Item Value Reference Range Comments PH ARTERIAL (BEAKER) (test ohyy=992) 7.45 7.35-7.45 PCO2 ARTERIAL (BEAKER) (test aehi=550) 38 mmHg 35-45 PO2 ARTERIAL (BEAKER) (test ighi=310) 187 mmHg 80-90 O2 SATURATION ARTERIAL (BEAKER) (test cjcl=241) 99.4 % 96.0-97.0 HCO3 ARTERIAL (BEAKER) (test okmi=126) 26 mmol/L 21-29 BASE EXCESS ARTERIAL (BEAKER) (test kxpj=897) 1.7 mmol/L -2.0-3.0 PATIENT TEMPERATURE (BEAKER) (test pbkx=5127) 36.0 C FIO2 (BEAKER) (test rkzy=1982) 50.0 % POTASSIUM-STAT [id number] 09:53:00 Test Item Value Reference Range Comments POTASSIUM (BEAKER) (test xtfh=881) 3.0 meq/L 3.6-5.5 GLUCOSE-STAT [id number] 09:53:00 Test Item Value Reference Range Comments GLUCOSE RANDOM (BEAKER) (test bnbp=424) 135 mg/dL 70-110 CALCIUM, [id number] 09:53:00 Test Item Value Reference Range Comments CALCIUM IONIZED (BEAKER) (test pztv=361) 1.01 mmol/L 1.12-1.27 PH, BLOOD (BEAKER) (test iuei=3393) 7.43 SODIUM NA-STAT [id number] 09:51:00 Test Item Value Reference Range Comments SODIUM (BEAKER) (test ydni=433) 137 meq/L 135-148 HGB/HCT (H&H) - STAT [id number] 09:51:00 Test Item Value Reference Range Comments HEMOGLOBIN (BEAKER) (test uevd=277) 14.1 g/dL 12.0-15.0 HEMATOCRIT (BEAKER) (test ircj=355) 41.0 % 36.0-45.0 BLOOD GAS, [id number] 08:48:00 Test Item Value Reference Range Comments PH ARTERIAL (BEAKER) (test ttuq=026) 7.43 7.35-7.45 PCO2 ARTERIAL (BEAKER) (test ajax=908) 47 mmHg 35-45 PO2 ARTERIAL (BEAKER) (test xzol=308) 481 mmHg 80-90 O2 SATURATION ARTERIAL (BEAKER) (test qrps=678) 99.9 % 96.0-97.0 HCO3 ARTERIAL (BEAKER) (test gxqv=381) 31 mmol/L 21-29 BASE EXCESS ARTERIAL (BEAKER) (test dixy=747) 5.1 mmol/L -2.0-3.0 PATIENT TEMPERATURE (BEAKER) (test bgvn=6964) 36.5 C FIO2 (BEAKER) (test kurq=2515) 100.0 % POTASSIUM-STAT [id number] 08:48:00 Test Item Value Reference Range Comments POTASSIUM (BEAKER) (test hnpg=078) 3.1 meq/L 3.6-5.5 GLUCOSE-STAT [id number] 08:48:00 Test Item Value Reference Range Comments GLUCOSE RANDOM (BEAKER) (test owsf=830) 116 mg/dL 70-110 HGB/HCT (H&H) - STAT [id number] 08:48:00 Test Item Value Reference Range Comments HEMOGLOBIN (BEAKER) (test dfnj=855) 15.5 g/dL 12.0-15.0 HEMATOCRIT (BEAKER) (test tylp=055) 46.0 % 36.0-45.0 CALCIUM, [id number] 08:47:00 Test Item Value Reference Range Comments CALCIUM IONIZED (BEAKER) (test pdfz=367) 1.12 mmol/L 1.12-1.27 PH, BLOOD (BEAKER) (test zqtt=3651) 7.42 SODIUM NA-STAT [id number] 08:46:00 Test Item Value Reference Range Comments SODIUM (BEAKER) (test wkvy=999) 141 meq/L 135-148 POCT-GLUCOSE [id number] 07:58:00 Test Item Value Reference Range Comments POC-GLUCOSE METER (BEAKER) 105 mg/dL 70-110 TESTED AT [address] (test wwcw=2605) [facility] [address] [id number] 15:19:00 Test Item Value Reference Range Comments PARTIAL THROMBOPLASTIN TIME (BEAKER) (test 27.8 seconds 22.5-36.0 ffnq=519) PROTHROMBIN TIME/[id number] 15:18:00 Test Item Value Reference Range Comments PROTIME (BEAKER) (test zfhg=203) 14.4 seconds 11.7-14.7 INR (BEAKER) (test lvzp=632) 1.1 <=5.9 RECOMMENDED COUMADIN/WARFARIN INR THERAPY RANGESSTANDARD DOSE: 2.0 - 3.0 Includes: PROPHYLAXIS forvenous thrombosis, systemic embolization; TREATMENT for venous thrombosis and/or pulmonary embolus.HIGH RISK: Target INR is 2.5-3.5 for patients with mechanical heart valves.COMPREHENSIVE METABOLIC [id number] 15:10:00 Test Item Value Reference Range Comments TOTAL PROTEIN (BEAKER) 7.7 gm/dL 6.0-8.3 (test hmpy=050) ALBUMIN (BEAKER) (test 4.1 g/dL 3.5-5.0 hgod=2543) ALKALINE PHOSPHATASE 40 U/L 40-150 (BEAKER) (test blpw=493) BILIRUBIN TOTAL (BEAKER) 0.8 mg/dL 0.2-1.2 (test ofjt=120) SODIUM (BEAKER) (test 143 meq/L 136-145 pldj=046) POTASSIUM (BEAKER) (test 4.1 meq/L 3.5-5.1 jgec=385) CHLORIDE (BEAKER) (test 101 meq/L 98-107 jrvr=084) CO2 (BEAKER) (test 30 meq/L 22-29 jxxp=740) BLOOD UREA NITROGEN 31 mg/dL 7-21 (BEAKER) (test swax=278) CREATININE (BEAKER) (test 1.17 mg/dL 0.57-1.25 yeji=317) GLUCOSE RANDOM (BEAKER) 142 mg/dL 70-105 (test rbrg=040) CALCIUM (BEAKER) (test 10.5 mg/dL 8.4-10.2 lglo=943) AST (SGOT) (BEAKER) (test 28 U/L 5-34 djjr=670) ALT (SGPT) (BEAKER) (test 18 U/L 6-55 glpv=863) EGFR (BEAKER) (test 44 mL/min/1.73 sq m ESTIMATED GFR IS NOT rlmg=4896) ACCURATE CREATININE CLEARANCE IN PREDICTING GLOMERULAR FILTRATION RATE. ESTIMATED GFR IS NOT APPLICABLE FOR DIALYSIS PATIENTS. RAD, CHEST, 2 [id number] 14:44:00Reason for exam:->preopFINAL REPORT Chest two views [...] MDReport Verified Date/Time: 03/11/2018 14:44:31 Reading Location: [facility] B1 [id number] Consult Reading Room CBC W/PLT COUNT & AUTO [id number] 14:43:00 Test Item Value Reference Range Comments WHITE BLOOD CELL COUNT (BEAKER) (test wgtz=217) 7.8 K/ L 3.5-10.5 RED BLOOD CELL COUNT (BEAKER) (test uwyz=211) 5.48 M/ L 3.93-5.22 HEMOGLOBIN (BEAKER) (test sttr=105) 15.6 GM/DL 11.2-15.7 HEMATOCRIT (BEAKER) (test hoot=901) 51.3 % 34.1-44.9 MEAN CORPUSCULAR VOLUME (BEAKER) (test sxkt=681) 93.6 fL 79.4-94.8 MEAN CORPUSCULAR HEMOGLOBIN (BEAKER) (test 28.5 pg 25.6-32.2 qhaq=886) MEAN CORPUSCULAR HEMOGLOBIN CONC (BEAKER) (test 30.4 GM/DL 32.2-35.5 heni=117) RED CELL DISTRIBUTION WIDTH (BEAKER) (test 14.2 % 11.7-14.4 yfwk=268) PLATELET COUNT (BEAKER) (test fbxp=035) 251 K/CU MM 150-450 MEAN PLATELET VOLUME (BEAKER) (test zmit=484) 11.4 fL 9.4-12.3 NUCLEATED RED BLOOD CELLS (BEAKER) (test 0 /100 WBC 0-0 ruof=051) NEUTROPHILS RELATIVE PERCENT (BEAKER) (test 85 % sbtr=875) LYMPHOCYTES RELATIVE PERCENT (BEAKER) (test 10 % pwwj=087) MONOCYTES RELATIVE PERCENT (BEAKER) (test 3 % pqpa=932) EOSINOPHILS RELATIVE PERCENT (BEAKER) (test 0 % jhee=705) BASOPHILS RELATIVE PERCENT (BEAKER) (test 1 % utii=544) NEUTROPHILS ABSOLUTE COUNT (BEAKER) (test 6.61 K/ L 1.56-6.13 epzu=230) LYMPHOCYTES ABSOLUTE COUNT (BEAKER) (test 0.79 K/ L 1.18-3.74 tigo=640) MONOCYTES ABSOLUTE COUNT (BEAKER) (test 0.26 K/ L 0.24-0.36 qiog=502) EOSINOPHILS ABSOLUTE COUNT (BEAKER) (test 0.01 K/ L 0.04-0.36 lcic=997) BASOPHILS ABSOLUTE COUNT (BEAKER) (test 0.07 K/ L 0.01-0.08 stgy=568) IMMATURE GRANULOCYTES-RELATIVE PERCENT (BEAKER) 1 % 0-1 (test pshr=6441)
[2018-04-27] MEDS ORDERED: ONDANSETRON 4 MG (ODT) TAB ONE (10:14)
[2018-04-27] MEDS ORDERED: NA CHLORIDE 0.9% 500 ML ONE (10:32)
[2018-04-27 10:48] LABS: Albumin 3.3 g/dL (3.4-5.0); Bilirubin Direct 0.1 mg/dL (0-0.2); Bilirubin Total 0.3 mg/dL (0.2-1.0); Potassium 3.4 mmol/L (3.5-5.1); Protein, Total 7.1 g/dL (6.4-8.2)
[2018-04-27 11:07] LABS: Urine Blood NEGATIVE (NEG); Urine Glucose NEGATIVE (NEG); Urine Protein TRACE (NEG)
[2018-04-27 11:23] LABS: Urine Amorphous Sediment 2+ /HPF (NONE SEEN); Urine Bacteria <20 /HPF (<20); Urine Culture Reflex Order NOT NEEDED; Urine RBC <5 /HPF (NONE SEEN)
[2018-04-27 11:31] LABS: Absolute Lymphocytes (CBC) 1.3 K/uL (0.7-4.9); Absolute Monocytes 0.8 K/uL (0.1-1.3); Absolute Neutrophil 6.7 K/uL (1.8-8.0); Basophils % 0.9 % (0-1.3); Eosinophils % 1.9 % (0-4.4); Hematocrit 42.8 % (36.0-45.0); Lymphocytes % 13.9 % (15.3-44.8); MCH 29.2 pg (27.0-35.0); MCV 89.9 fL (80-100); MPV 9.6 fL (7.6-11.3); Monocytes % 8.4 % (3.3-12.3); RBC Red Blood Cell Count 4.76 M/uL (3.86-4.86)
--- NOTE | 2018-04-27 12:38 | RAD REPORT ---
EXAM DESCRIPTION: CT - Abdomen Pelvis W Contrast - 04/27/2018 11:05 am CLINICAL HISTORY: Abdominal pain. Aorto femoral bypass 5 weeks ago COMPARISON: none. TECHNIQUE: Computed axial tomography of the abdomen pelvis was obtained. 100 cc Isovue-300 was admin istered intravenously. Oral contrast was not requested which limits evaluation of bowel. All CT scans are performed using dose optimization technique as appropriate and may include automated exposure control or mA/KV adjustment according to patient size. FINDINGS: Postsurgical changes of an aortobifemoral bypass are present. The graft is patent. Ill-def ined increased density is present within the anterior subcutaneous fat adjacent to the femoral grafts bilaterally. A discrete drainable fluid collection is not seen. The left kashia iliac artery is occl uded Mild stranding is present adjacent to the abdominal aorta just superior to the graft. The gallbladder has been removed. Mild dilatation of the intra and extrahepatic biliary tree is seen. Small hepatic cyst is present. Spleen, pancreas and adrenals appear unremarkable. Small renal cysts are present. Ill-defined increased density is present within the anterior subcutaneous fat of the abdomen and pelv is There is no evidence of diverticulitis. IMPRESSION: Aortobifemoral bypass. Ill-defined increased density within the anterior subcutaneous fa t adjacent to the femoral grafts may indicate infection or inflammation. A drainable fluid collection is not present. Diffuse edema within the anterior subcutaneous fat of the abdomen and pelvis also may indicate infect ion or inflammation. A drainable fluid collection is not seen. Mild dilatation of the biliary tree probably is physiologic in this elderly patient status post chauncey cystectomy. This should be correlated clinically and with appropriate lab values
--- NOTE | 2018-04-27 13:01 | ER ---
Nurse's Notes [facility] Name: Fanny Arceo Age: 82 yrs Sex: Female : 1935 Arrival Date: 04/27/2018 Time: 09:49 Bed 6 Private MD: Sherry Stock R Diagnosis: Nausea Presentation: 04/27 09:53 Presenting complaint: Patient states: nausea and vomiting since last night. Pt denies aa5 pain. Pt reports having an aorta robert femoral bypass March 18 and was hospitalized for a wound infection recently and d/c home April 25 with Cipro 750 mg BID. Wound vacuum noted to right leg. 09:53 Transition of care: patient was not received from another setting of care. Onset of aa5 symptoms was April 26, 2018. Risk Assessment: Do you want to hurt yourself or someone else? Patient reports no desire to harm self or others. Care prior to arrival: None. 09:53 Method Of Arrival: Wheelchair aa5 09:53 Acuity: JESSE 3 aa5 10:27 Initial Sepsis Screen: Does the patient meet any 2 criteria?. ae1 12:51 Initial Sepsis Screen: Does the patient have a suspected source of infection? No. ae1 Patient's initial sepsis screen is negative. Historical: - Allergies: 09:55 Morphine; aa5 09:55 Ticlopidine HCl; aa5 09:55 Atenolol; aa5 09:55 Sulfa (Sulfonamide Antibiotics); aa5 09:55 Simvastatin; aa5 - PMHx: 09:55 Atrial Fib; CAD; CHF; chronic renal failure; Clot to right arm; COPD; Depression; aa5 Diabetes - IDDM; GERD; High Cholesterol; Hyperlipidemia; Hypertension; Hypothyroidism; neuropathy; Sleep Apnea; - PSHx: 09:55 Hysterectomy; Cholecystectomy; Appendectomy; pacemaker; Heart stents; Aneurysm of Leg aa5 Artery; - Immunization history:: Adult Immunizations up to date. - Ebola Screening: : No symptoms or risks identified at this time. - Family history:: not pertinent. - Social history:: Smoking status: Patient/guardian denies using tobacco. - Hospitalizations: : No recent hospitalization is reported. Screenin:38 Abuse screen: Denies threats or abuse. Nutritional screening: No deficits noted. ae1 Tuberculosis screening: No symptoms or risk factors identified. Fall Risk None identified. Assessment: 10:35 General: Appears in no apparent distress. uncomfortable, Behavior is cooperative. Pain: ae1 Complains of pain in abdomen. Neuro: Level of Consciousness is awake, alert, obeys commands, Oriented to person, place, time, situation. Cardiovascular: Patient's skin is warm and dry. Respiratory: Airway is patent Respiratory effort is even, unlabored, Respiratory pattern is regular, symmetrical. GI: Abdomen is round Bowel sounds present X 4 quads. Reports nausea, vomiting. : No signs and/or symptoms were reported regarding the genitourinary system. EENT: wears glasses. . Derm: Skin is pink, warm \T\ dry. Surgical drain attached to portable pump to the right groin area, site is clean and dry, mild redness to insertion site of absorbent sponge. Musculoskeletal: No signs and/or symptoms reported regarding the musculoskeletal system. 10:45 Reassessment: Patient assisted up to bedside commode, obtained urine sample at this ae1 time. 11:18 Reassessment: Patient returned from CT, states she still has some discomfort in her ae1 upper abdomen, but nausea has decreased. 12:20 Reassessment: Patient appears in no apparent distress at this time. Patient up to ae1 bedside commode to urinate. patient tolerated well Patient states feeling better. Patient states symptoms have improved. 12:51 Reassessment: Provider at bedside discussing plan of care. ae1 Vital Signs: 09:55 BP 159 / 87; Pulse 77; Resp 18 S; Pulse Ox 96% on R/A; Pain 0/10; aa5 10:28 Temp 98.7(O); ae1 10:42 Pulse Ox 86% on R/A; ae1 11:19 BP 156 / 70; Pulse 70; Resp 19; Pulse Ox 100% on 2 lpm NC; ae1 12:29 BP 182 / 75; Pulse 70; Resp 20; Pulse Ox 100% on 2 lpm NC; ae1 12:55 BP 171 / 74; Pulse 70; Resp 19; Pulse Ox 100% on 2 lpm NC; ae1 10:42 Nasal canula applied, at 2 liters, O2 saturation increased 97 % ae1 ED Course: 09:49 Patient arrived in ED. mr 09:49 Sherry Stock MD is Private Physician. mr 09:53 Arm band placed on Patient placed in an exam room, on a stretcher. aa5 09:55 Mukund Cervantes, RN is Primary Nurse. ae1 09:56 Neel Rosales MD is Attending Physician. rn 10:06 Triage completed. aa5 10:26 Placed in gown. Bed in low position. Call light in reach. Side rails up X2. Adult w/ ae1 patient. hall tender on. Pulse ox on. NIBP on. Warm blanket given. 10:26 Inserted saline lock: 22 gauge in right forearm, using aseptic technique. Blood ae1 collected. 10:33 Radiology exam delayed due to lab results not completed at this time. (BUN/Creatinine). bq 11:05 CT completed. Patient moved to CT via stretcher. Patient moved back from CT. cw1 11:05 CT Abd/Pelvis - W/Contrast In Process Unspecified. EDMS 13:16 No provider procedures requiring assistance completed. IV discontinued, intact, ae1 bleeding controlled, Pressure dressing applied. Administered Medications: 10:15 Drug: Zofran 4 mg Route: PO; ae1 10:35 Follow up: Response: Nausea is decreased ae1 10:28 Drug: NS 0.9% 500 ml Route: IV; Rate: bolus; Site: right forearm; ae1 12:31 Follow up: IV Status: Completed infusion ae1 Outcome: 13:00 Discharge ordered by . rn 13:16 Discharged to home via wheelchair, with family. ae1 13:16 Condition: stable 13:16 Discharge instructions given to patient, family, Instructed on discharge instructions, follow up and referral plans. medication usage, Demonstrated understanding of instructions, Prescriptions given X 1. 13:16 Patient left the ED. iw Signatures: Dispatcher [employer] EDFL Lainey Ayers Betty Nusrat Madrigal, NIKOLAS CONNOR iw Neel Rosales MD MD rn Calderon, Audri, RN RN Gracie Ndiaye cw1 Mukund Cervantes, RN RN ae1
--- NOTE | 2018-04-27 13:01 | EDPHYS ---
Physician Documentation [facility] Name: Fanny Arceo Age: 82 yrs Sex: Female : 1935 Arrival Date: 04/27/2018 Time: 09:49 Bed 6 Private MD: Sherry Stock R ED Physician Neel Rosales HPI: 04/27 10:16 This 82 yrs old Female presents to ER via Wheelchair with complaints of rn Nausea/Vomiting. 10:16 The patient presents to the emergency department with nausea, vomiting, abdominal pain. rn Onset: The symptoms/episode began/occurred last night. Possible causes: unknown. Severity of symptoms: At their worst the symptoms were mild in the emergency department the symptoms are unchanged. The patient has not experienced similar symptoms in the past. The patient has been recently seen by a physician:. Reports aorto-fem bypass [address] [facility], had post-op surgical site infection, has wound vac, just discharged on cipro PO 3 days ago, reports nausea and "knot in stomach" that began last night. NO fever. NO diarrhea, No blood in stool. . Historical: - Allergies: 09:55 Morphine; aa5 09:55 Ticlopidine HCl; aa5 09:55 Atenolol; aa5 09:55 Sulfa (Sulfonamide Antibiotics); aa5 09:55 Simvastatin; aa5 - PMHx: 09:55 Atrial Fib; CAD; CHF; chronic renal failure; Clot to right arm; COPD; Depression; aa5 Diabetes - IDDM; GERD; High Cholesterol; Hyperlipidemia; Hypertension; Hypothyroidism; neuropathy; Sleep Apnea; - PSHx: 09:55 Hysterectomy; Cholecystectomy; Appendectomy; pacemaker; Heart stents; Aneurysm of Leg aa5 Artery; - Immunization history:: Adult Immunizations up to date. - Ebola Screening: : No symptoms or risks identified at this time. - Family history:: not pertinent. - Social history:: Smoking status: Patient/guardian denies using tobacco. - Hospitalizations: : No recent hospitalization is reported. ROS: 10:16 Constitutional: Negative for fever, chills, and weight loss, Eyes: Negative for injury, rn pain, redness, and discharge, Neck: Negative for injury, pain, and swelling, Cardiovascular: Negative for chest pain, palpitations, and edema, Respiratory: Negative for shortness of breath, cough, wheezing, and pleuritic chest pain, Abdomen/GI: Negative for diarrhea, and constipation, MS/Extremity: Negative for injury and deformity, Skin: Negative for injury, rash, and discoloration, Neuro: Negative for headache, weakness, numbness, tingling, and seizure. Exam: 10:16 Constitutional: This is a well developed, well nourished patient who is awake, alert, rn appears nauseous Head/Face: Normocephalic, atraumatic. Eyes: Pupils equal round and reactive to light, extra-ocular motions intact. Lids and lashes normal. Conjunctiva and sclera are non-icteric and not injected. Cornea within normal limits. Periorbital areas with no swelling, redness, or edema. Cardiovascular: Regular rate and rhythm with a normal S1 and S2. No gallops, murmurs, or rubs. Normal PMI, no JVD. No pulse deficits. Respiratory: Lungs have equal breath sounds bilaterally, clear to auscultation and percussion. No rales, rhonchi or wheezes noted. No increased work of breathing, no retractions or nasal flaring. Abdomen/GI: soft, mild mid abd tenderness, no rebound, well healed midline laparotomy scar Skin: Warm, dry with normal turgor. Normal color with no rashes, no lesions, and no evidence of cellulitis. + right groin wound vac MS/ Extremity: Pulses equal, no cyanosis. Neurovascular intact. Full, normal range of motion. Equal circumference. Neuro: Awake and alert, GCS 15, oriented to person, place, time, and situation. Cranial nerves II-XII grossly intact. Motor strength 5/5 in all extremities. Sensory grossly intact. Vital Signs: 09:55 BP 159 / 87; Pulse 77; Resp 18 S; Pulse Ox 96% on R/A; Pain 0/10; aa5 10:28 Temp 98.7(O); ae1 10:42 Pulse Ox 86% on R/A; ae1 11:19 BP 156 / 70; Pulse 70; Resp 19; Pulse Ox 100% on 2 lpm NC; ae1 12:29 BP 182 / 75; Pulse 70; Resp 20; Pulse Ox 100% on 2 lpm NC; ae1 12:55 BP 171 / 74; Pulse 70; Resp 19; Pulse Ox 100% on 2 lpm NC; ae1 10:42 Nasal canula applied, at 2 liters, O2 saturation increased 97 % ae1 MDM: 09:56 Patient medically screened. rn 12:26 Medication response: Zofran markedly relieved the patient's nausea. rn 12:57 Differential diagnosis: gastritis, viral gastroenteritis, gastroenteritis, post op rn infection, medication side effect. Data reviewed: vital signs, nurses notes, lab test result(s), EKG, radiologic studies, CT scan, and as a result, I will discharge patient. Counseling: I had a detailed discussion with the patient and/or guardian regarding: the historical points, exam findings, and any diagnostic results supporting the discharge/admit diagnosis, lab results, radiology results, the need for outpatient follow up, to return to the emergency department if symptoms worsen or persist or if there are any questions or concerns that arise at home. ED course: Pt feels much better, nausea gone, CT shows non-specific changes in subcutaneous tissues, is on cipro for that, 750mg PO bid based on cultures, just had surgical evaluation for graft infection that was negative, states no new pain/redness/discomfort at areas ct shows thickening, maybe just reactive thickening/edema from her 2 recent surgeries, afebrile, normal WBC, offered transfer back to [facility], patient states doesn't want to be admitted again, wants to try zofran at home, and will return if worsens. . 13:45 ED course: Pt states that she had cipro once in past and also had similar nausea rn reaction to oral cipro as well as IV cipro while in hospital recently. . 04/27 10:14 Order name: Basic Metabolic Panel; Complete Time: 10:49 rn 04/27 10:14 Order name: CBC with Diff; Complete Time: 11:39 rn 04/27 10:14 Order name: Hepatic Function; Complete Time: 10:49 rn 04/27 10:14 Order name: Lipase; Complete Time: 10:49 rn 04/27 10:14 Order name: Urine Microscopic Only; Complete Time: 11:27 rn 04/27 11:04 Order name: Urine Dipstick--Ancillary (enter results); Complete Time: 11:27 bd 04/27 10:14 Order name: IV Saline Lock; Complete Time: 10:25 rn 04/27 10:14 Order name: Labs collected and sent; Complete Time: 10:25 rn 04/27 10:14 Order name: Urine Dipstick-Ancillary (obtain specimen); Complete Time: 10:59 rn 04/27 10:14 Order name: CT Abd/Pelvis - W/Contrast; Complete Time: 12:39 rn 04/27 10:14 Order name: EKG; Complete Time: 10:14 rn 04/27 10:14 Order name: EKG - Nurse/Tech; Complete Time: 10:33 rn Administered Medications: 10:15 Drug: Zofran 4 mg Route: PO; ae1 10:35 Follow up: Response: Nausea is decreased ae1 10:28 Drug: NS 0.9% 500 ml Route: IV; Rate: bolus; Site: right forearm; ae1 12:31 Follow up: IV Status: Completed infusion ae1 Disposition: 04/27/18 13:00 Discharged to Home. Impression: Nausea. - Condition is Stable. - Discharge Instructions: Nausea, Adult. - Prescriptions for Zofran ODT 4 mg Oral tablet,disintegrating - place 1 tablet by TRANSLINGUAL route every 8 hours As needed; 20 tablet. - Medication Reconciliation Form, Thank You Letter, Antibiotic Education, Prescription Opioid Use form. - Follow up: Private Physician; When: 2 - 3 days; Reason: Recheck today's complaints, Re-evaluation by your physician. - Problem is an ongoing problem. - Symptoms have improved. Signatures: Dispatcher [employer] EDMS Nusrat Mora RN RN iw Neel Rosales MD MD rn Calderon, Audri, RN RN aa5 Mukund Cervantes RN RN ae1 Corrections: (The following items were deleted from the chart) 13:16 13:00 04/27/2018 13:00 Discharged to Home. Impression: Nausea. Condition is Stable. iw Forms are Medication Reconciliation Form, Thank You Letter, Antibiotic Education, Prescription Opioid Use. Follow up: Private Physician; When: 2 - 3 days; Reason: Recheck today's complaints, Re-evaluation by your physician. Problem is an ongoing problem. Symptoms have improved. rn
[2018-04-27 13:21] VITALS: TEMP 98.7
[2018-04-27 13:23] VITALS: O2SAT 100
[2018-04-27 13:25] VITALS: BP 171/74
--- NOTE | 2018-04-29 07:47 | EKG ---
Test Date: 2018-04-27 Test Time: 10:29:46 Supervisor Salvage: MB MEASUREMENT RESULTS: Intervals: Rate: 70 [place]: QRSD: 184 QT: 476 QTc: 514 [place]: P: [place]: QRS: 263 T: 61 INTERPRETIVE STATEMENTS: Ventricular-paced rhythm Abnormal ECG Compared to ECG 02/08/2018 22:35:10 Ventricular premature complex(es) no longer present Electronically Signed On 04-29-18 07:47:05 CDT by Emir Armstrong
== END 2018-04-27 13:16 | disposition home or self-care (01) ==
LOC: ER 09:47
DX: R11.0 Nausea (principal); I10 Essential (primary) hypertension; I48.91 Unspecified atrial fibrillation; Z88.2 Allergy status to sulfonamides; Z88.5 Allergy status to narcotic agent; Z88.8 Allergy status to other drugs, medicaments and biological substances; Z95.0 Presence of cardiac pacemaker; Z95.818 Presence of other cardiac implants and grafts
CPT/HCPCS: 36415; 74177; 80048; 80076; 83690; 85025; 93005; 96360; 96361; 99285; Q9967; 81003; 81015

== ENCOUNTER 2019-01-24 12:40 | Inpatient (IN) | payer OTHER, MEDICARE ==
--- OUTSIDE RECORDS SUMMARY | 2019-01-24 12:44 | XMS REPORT | Clinical Summary ---
:1935 Author Organization [facility] Address [address] [place] [address] Care Team Providers Name Role Phone Dayami Shelby Primary Care Provider Mohinder Ritchie Unavailable Allergies Active Allergy Reactions Severity Noted Date Comments Atenolol 03/11/2018 Morphine 03/11/2018 flushing of the face Simvastatin 03/11/2018 Sulfa (Sulfonamide Antibiotics) 03/11/2018 HALLUCINATIONS Ticlopidine 03/11/2018 Medications Medication Sig Dispensed Refills Start End Date Status Date albuterol USE ONE (1) VIAL 6 Active (PROVENTIL) 2.5 mg VIA NEBULIZER 8 /3 mL (0.083 %) EVERY 6 HOURS nebulizer solution NEEDED. famotidine (PEPCID) TAKE ONE (1) 1 Active 40 MG tablet TABLET(S) BY 8 MOUTH ONCE A DAY. levothyroxine TAKE ONE (1) 1 Active (SYNTHROID, TABLET(S) BY 8 LEVOTHROID) 125 MCG MOUTH EVERY tablet MORNING. losartan-hydroCHLOR TAKE ONE (1) 1 Active Othiazide (HYZAAR) TABLET(S) BY 8 100-25 mg per MOUTH ONCE A DAY. tablet sertraline (ZOLOFT) 50 mg daily. 0 Active 50 MG tablet 8 fenofibrate Take 145 mg by 0 Active (TRICOR) 145 MG mouth daily. tablet bimatoprost Place 1 drop into 0 Active (LUMIGAN) 0.01 % both eyes Drop ophthalmic nightly. solution arformoterol Take 15 mcg by 0 Active (BROVANA) 15 mcg/2 nebulization mL nebulizer every 12 (twelve) solution hours. acetaminophen Take 2 tablets 30 tablet 0 Active (TYLENOL) 325 MG (650 mg total) by 8 tablet mouth every 6 (six) hours as needed for Pain. polyethylene glycol Take 17 g by 14 each 0 Active (GLYCOLAX) 17 gram mouth daily Hold 8 packet for loose stool. predniSONE Take 1 tablet (10 1 Active (DELTASONE) 10 MG mg total) by 8 tablet mouth daily. senna-docusate Take 1 tablet by 0 03/28/20 Active (SENOKOT S) 8.6-50 mouth nightly. 8 19 mg per tablet HYDROcodone-acetami Take 1 tablet by 30 tablet 0 Active nophen (NORCO mouth every 4 8 10-325) 10-325 mg (four) hours as per tablet needed for Pain. Max Daily Amount: 6 tablets ROSALIO-24 200 mg 24 2 (two) times 3 Active hr daily. 8 capsuleIndications: Post-operative state acetic acid 0.25 % USE 1,000 MLS 0 Active irrigation DIRECTED DAILY. 8 clopidogrel Take 1 tablet (75 30 tablet 04/26/20 Active (PLAVIX) 75 mg mg total) by 8 19 tablet mouth daily. hydrALAZINE Take 1 tablet (50 90 tablet 5 04/25/20 Active (APRESOLINE) 50 MG mg total) by 8 19 tablet mouth every 8 (eight) hours. traMADol (ULTRAM) Take 1 tablet (50 30 tablet 0 Active 50 mg tablet mg total) by 8 mouth every 8 (eight) hours as needed for Pain. Max Daily Amount: 150 mg rOPINIRole (REQUIP) Take 1 tablet 30 tablet 1 04/25/20 Active 0.5 MG tablet (0.5 mg total) by 8 19 mouth nightly. ondansetron Take 4 mg by 0 Active (ZOFRAN-ODT) 4 MG mouth every 8 8 disintegrating (eight) hours. tablet gabapentin Take 600 mg by 1 Active (NEURONTIN) 300 MG mouth 2 (two) 8 capsule times daily. aspirin 325 MG EC Take 325 mg by 0 Active tablet mouth daily. gabapentin 600 mg 2 (two) 1 04/25/20 Discontinued (NEURONTIN) 300 MG times daily . 8 18 capsule LEVEMIR FLEXTOUCH 10 Units 2 (two) 1 03/28/20 Discontinued 100 unit/mL (3 mL) times daily. 8 18 InPn injection predniSONE 20 mg daily . 1 03/28/20 Discontinued (DELTASONE) 10 MG 8 18 tablet traMADol (ULTRAM) TAKE ONE (1) 3 03/28/20 Discontinued 50 mg tablet TABLET(S) BY 8 18 MOUTH THREE TIMES A DAY. aspirin 325 MG EC Take 325 mg by 0 03/28/20 Discontinued tablet mouth daily. 18 aspirin 81 MG EC Take 4 tablets 0 06/13/20 Discontinued tablet (325 mg total) by 8 18 mouth daily. amLODIPine Take 1 tablet (5 0 04/25/20 Discontinued (NORVASC) 5 MG mg total) by 8 18 tablet mouth daily. traMADol (ULTRAM) Take 2 tablets 30 tablet 0 04/07/20 50 mg tablet (100 mg total) by 8 18 mouth every 6 (six) hours as needed for up to 10 days. Max Daily Amount: 400 mg HYDROcodone-acetami Take 1 tablet by 30 tablet 0 03/28/20 Discontinued nophen (NORCO mouth every 6 8 18 10-325) 10-325 mg (six) hours as per tablet needed for Pain. Max Daily Amount: 4 tablets traMADol (ULTRAM) Take 50 mg by 0 04/25/20 Discontinued 50 mg tablet mouth 2 (two) 18 times daily as needed for Pain. amLODIPine Take 2 tablets 30 tablet 5 05/25/20 (NORVASC) 5 MG (10 mg total) by 8 18 tablet mouth daily for 30 days. ciprofloxacin HCl Take 1 tablet 22 tablet 0 05/06/20 (CIPRO) 750 MG (750 mg total) by 8 18 tablet mouth every 12 (twelve) hours for 11 days. mINOCYCLine Take 1 capsule 22 capsule 0 05/06/20 (MINOCIN,DYNACIN) (100 mg total) by 8 18 100 MG capsule mouth every 12 (twelve) hours for 11 days. 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) MD Sayda 06/13/2018 Office Visit ARLETH Gallego (peripheral Billy vascular disease) ([facility]) MD Sayda (Primary Dx) 05/09/2018 Office Visit [facility] [place], Wound check, abscess Billy (Primary Dx) MD Sayda 04/29/2018 Telephone Intensive Care Rachelle Delgado RN 04/22/2018 Surgery [place], EXPLORATION,WOUND Billy EXTREMITY LOWER MD Sayda 04/22/2018 Anesthesia Event Iglesia Rodriguez 04/19/2018 - Hospital Encounter Cardiology Doron Dorman, 04/25/2018 Shreyas Liu (Jose) MD Bam 04/19/2018 Office Visit Cardiology [place], Superficial injury of Billy groin with infection, MD Sayda initial encounter Doron Dorman, (Primary Dx) 04/03/2018 Office Visit Randy Mcmanus, Post-operative state Billy (Primary Dx) MD Sayda 03/25/2018 Anesthesia Event Felicity King MD 03/25/2018 Surgery [place], DEBRIDEMENT/I&D,WOUND Billy TRUNK ANTERIOR MD Sayda 03/18/2018 David Mcmanus, BYPASS,AORTO-FEMORAL Billy Alfredo MD 03/18/2018 Anesthesia Event Genaro Lentz MD 03/18/2018 - Hospital Encounter Cardiology [place], 03/28/2018 MD Tg Herbert Chau Le, MD 03/11/2018 Hospital Encounter Billy Mcmanus MD 03/11/2018 Office Visit Cardiology [place], Diabetes mellitus type 2, noninsulin dependent (HCC); Billy Essential hypertension; MD Sayda Hyperlipidemia, unspecified hyperlipidemia type; Peripheral vascular disease (HCC); Iliac artery occlusion, left (HCC); Chronic obstructive pulmonary disease, unspecified COPD type (HCC); Gastroesophageal reflux disease, esophagitis presence not specified 03/11/2018 Orders Only General Internal Medicine after 01/23/2018 Social History Tobacco Use Types Packs/Day Years Used Date Former Smoker 1 50 Quit: 1998 Smokeless Tobacco: Never Used Alcohol Use Drinks/Week oz/Week Comments No Sex Assigned at Date Recorded Not on file Job Start Date Occupation Industry Not on file Not on file Not on file Travel History Travel Start Travel End No recent travel history available. Last Filed Vital Signs Vital Sign Reading Time Taken Blood Pressure 137/61 06/13/2018 9:39 AM CDT Pulse 70 06/13/2018 9:39 AM CDT Temperature 37 C (98.6 F) 06/13/2018 9:39 AM CDT Respiratory Rate 18 06/13/2018 9:39 AM CDT Oxygen Saturation 97% 06/13/2018 9:39 AM CDT Inhaled Oxygen Concentration 40% 03/18/2018 10:34 PM CDT Weight 83.1 kg (183 lb 1.6 oz) 06/13/2018 9:39 AM CDT Height 167.6 cm (5' 6") 06/13/2018 9:39 AM CDT Body Mass Index 29.55 06/13/2018 9:39 AM CDT Plan of Treatment Not on file Implants Implanted Type Area General Ophthalmologist Device Shelf Model / Identifier Expiration Serial / Lot Date Grft Vasc Gelsft Plus [id number] - [id number] Graft/Pa N/A: TERUMO: VASCUTEK 11/07/2020 [id number] / Implanted: Qty: 1 on 03/18/2018 by Billy Mcmanus MD [facility] [id number] / [id number] Procedures Procedure Name Priority Date/Time Associated Comments Diagnosis RHYTHM STRIP - SCAN 01/17/2019 2:21 PM CDT VENOUS DOPPLER LEG, Routine 06/13/2018 11:49 PVD (peripheral Results for this LEFT AM CDT vascular disease) procedure are in (HCC) the results section. RHYTHM STRIP - SCAN 04/26/2018 10:40 AM CDT POCT-GLUCOSE METER Routine 04/25/2018 12:24 Results for this PM CDT procedure are in the results section. POCT-GLUCOSE METER Routine 04/25/2018 7:09 Results for this AM CDT procedure are in the results section. POCT-GLUCOSE METER Routine 04/24/2018 10:02 Results for this PM CDT procedure are in the results section. POCT-GLUCOSE METER Routine 04/24/2018 5:35 Results for this PM CDT procedure are in the results section. POCT-GLUCOSE METER Routine 04/24/2018 12:28 Results for this PM CDT procedure are in the results section. POCT-GLUCOSE METER Routine 04/24/2018 7:32 Results for this AM CDT procedure are in the results section. POCT-GLUCOSE METER Routine 04/24/2018 4:20 Results for this AM CDT procedure are in the results section. POCT-GLUCOSE METER Routine 04/23/2018 11:01 Results for this PM CDT procedure are in the results section. TRANSFUSION SERVICE 04/23/2018 5:50 REPORT - SCAN PM CDT POCT-GLUCOSE METER Routine 04/23/2018 5:11 Results for this PM CDT procedure are in the results section. POCT-GLUCOSE METER Routine 04/23/2018 12:13 Results for this PM CDT procedure are in the results section. POCT-GLUCOSE METER Routine 04/22/2018 9:39 Results for this PM CDT procedure are in the results section. TRANSFUSION SERVICE 04/22/2018 5:50 REPORT - SCAN PM CDT POCT-GLUCOSE METER Routine 04/22/2018 5:01 Results for this PM CDT procedure are in the results section. POCT-GLUCOSE METER Routine 04/22/2018 11:45 Results for this AM CDT procedure are in the results section. SURGICALLY OBTAINED Routine 04/22/2018 8:46 Results for this CULTURE + GRAM STAIN AM CDT procedure are in the results section. AFB CULTURE + SMEAR Routine 04/22/2018 8:46 Results for this AM CDT procedure are in the results section. ANAEROBIC CULTURE Routine 04/22/2018 8:46 Results for this AM CDT procedure are in the results section. FUNGUS CULTURE + Routine 04/22/2018 8:46 Results for this SMEAR AM CDT procedure are in the results section. EXPLORATION,WOUND 04/22/2018 8:00 Infection EXTREMITY LOWER AM CDT Case Notes Original panel length 50 CBC W/PLT COUNT & AUTO Routine 04/21/2018 10:27 PM Results for this DIFFERENTIAL CDT procedure are in the results section. TYPE AND SCREEN, Routine 04/21/2018 10:27 PM Results for this AUTOMATED CDT procedure are in the results section. PROTHROMBIN TIME/INR Routine 04/21/2018 10:27 PM Results for this CDT procedure are in the results section. CBC W/PLT COUNT & AUTO Routine 04/21/2018 10:27 PM Results for this DIFFERENTIAL CDT procedure are in the results section. COMPREHENSIVE Routine 04/21/2018 10:27 PM Results for this METABOLIC PANEL CDT procedure are in the results section. POCT-GLUCOSE METER Routine 04/21/2018 9:18 PM Results for this CDT procedure are in the results section. POCT-GLUCOSE METER Routine 04/21/2018 5:25 PM Results for this CDT procedure are in the results section. POCT-GLUCOSE METER Routine 04/21/2018 4:51 PM Results for this CDT procedure are in the results section. POCT-GLUCOSE METER Routine 04/21/2018 12:15 PM Results for this CDT procedure are in the results section. POCT-GLUCOSE METER Routine 04/21/2018 8:17 AM Results for this CDT procedure are in the results section. CT ABDOMEN/PELVIS WITH Routine 04/21/2018 3:44 AM Results for this IV CONTRAST CDT procedure are in the results section. POCT-GLUCOSE METER Routine 04/20/2018 9:49 PM Results for this CDT procedure are in the results section. POCT-GLUCOSE METER Routine 04/20/2018 4:48 PM Results for this CDT procedure are in the results section. POCT-GLUCOSE METER Routine 04/20/2018 12:33 PM Results for this CDT procedure are in the results section. POCT-GLUCOSE METER Routine 04/20/2018 7:30 AM Results for this CDT procedure are in the results section. CBC W/PLT COUNT & AUTO Routine 04/20/2018 4:57 AM Results for this DIFFERENTIAL CDT procedure are in the results section. BASIC METABOLIC PANEL Routine 04/20/2018 4:57 AM Results for this (7) CDT procedure are in the results section. CBC W/PLT COUNT & AUTO Routine 04/20/2018 4:57 AM Results for this DIFFERENTIAL CDT procedure are in the results section. POCT-GLUCOSE METER Routine 04/19/2018 9:10 PM Results for this CDT procedure are in the results section. POCT-GLUCOSE METER Routine 04/19/2018 4:33 PM Results for this CDT procedure are in the results section. POCT-GLUCOSE METER Routine 04/19/2018 1:04 PM Results for this CDT procedure are in the results section. POCT-GLUCOSE METER Routine 04/19/2018 11:37 AM Results for this CDT procedure are in the results section. BLOOD CULTURE Routine 04/19/2018 11:29 AM Results for this CDT procedure are in the results section. CBC W/PLT COUNT & AUTO Routine 04/19/2018 11:20 AM Results for this DIFFERENTIAL CDT procedure are in the results section. MAGNESIUM Routine 04/19/2018 11:20 AM Results for this CDT procedure are in the results section. TSH/FREE T4 IF Routine 04/19/2018 11:20 AM Results for this INDICATED CDT procedure are in the results section. CBC W/PLT COUNT & AUTO Routine 04/19/2018 11:20 AM Results for this DIFFERENTIAL CDT procedure are in the results section. BASIC METABOLIC PANEL Routine 04/19/2018 11:20 AM Results for this (7) CDT procedure are in the results section. BLOOD CULTURE Routine 04/19/2018 11:20 AM Results for this CDT procedure are in the results section. WOUND CULTURE + GRAM Routine 04/19/2018 8:38 AM Results for this STAIN CDT procedure are in the results section. RHYTHM STRIP - SCAN 03/29/2018 1:11 PM CDT POCT-GLUCOSE METER Routine 03/28/2018 11:23 AM Results for this CDT procedure are in the results section. POCT-GLUCOSE METER Routine 03/28/2018 7:59 AM Results for this CDT procedure are in the results section. CBC W/PLT COUNT & AUTO Routine 03/28/2018 5:15 AM Results for this DIFFERENTIAL CDT procedure are in the results section. BASIC METABOLIC PANEL Routine 03/28/2018 5:15 AM Results for this (7) CDT procedure are in the results section. CBC W/PLT COUNT & AUTO Routine 03/28/2018 5:15 AM Results for this DIFFERENTIAL CDT procedure are in the results section. POCT-GLUCOSE METER Routine 03/27/2018 9:24 PM Results for this CDT procedure are in the results section. POCT-GLUCOSE METER Routine 03/27/2018 5:00 PM Results for this CDT procedure are in the results section. POCT-GLUCOSE METER Routine 03/27/2018 11:10 AM Results for this CDT procedure are in the results section. POCT-GLUCOSE METER Routine 03/27/2018 6:59 AM Results for this CDT procedure are in the results section. CBC W/PLT COUNT & AUTO Routine 03/27/2018 5:54 AM Results for this DIFFERENTIAL CDT procedure are in the results section. BASIC METABOLIC PANEL Routine 03/27/2018 5:54 AM Results for this (7) CDT procedure are in the results section. CBC W/PLT COUNT & AUTO Routine 03/27/2018 5:54 AM Results for this DIFFERENTIAL CDT procedure are in the results section. POCT-GLUCOSE METER Routine 03/26/2018 8:57 PM Results for this CDT procedure are in the results section. POCT-GLUCOSE METER Routine 03/26/2018 4:55 PM Results for this CDT procedure are in the results section. POCT-GLUCOSE METER Routine 03/26/2018 11:30 AM Results for this CDT procedure are in the results section. POCT-GLUCOSE METER Routine 03/26/2018 7:27 AM Results for this CDT procedure are in the results section. CBC W/PLT COUNT & AUTO Routine 03/26/2018 4:29 AM Results for this DIFFERENTIAL CDT procedure are in the results section. BASIC METABOLIC PANEL Routine 03/26/2018 4:29 AM Results for this (7) CDT procedure are in the results section. CBC W/PLT COUNT & AUTO Routine 03/26/2018 4:29 AM Results for this DIFFERENTIAL CDT procedure are in the results section. POCT-GLUCOSE METER Routine 03/25/2018 9:17 PM Results for this CDT procedure are in the results section. GLUCOSE-STAT LAB STAT 03/25/2018 10:53 AM Results for this CDT procedure are in the results section. HGB/HCT (H&H) - STAT STAT 03/25/2018 10:53 AM Results for this LAB CDT procedure are in the results section. POTASSIUM-STAT LAB STAT 03/25/2018 10:53 AM Results for this CDT procedure are in the results section. SURGICALLY OBTAINED Routine 03/25/2018 9:44 AM Results for this CULTURE + GRAM STAIN CDT procedure are in the results section. FUNGUS CULTURE + Routine 03/25/2018 9:44 AM Results for this SMEAR CDT procedure are in the results section. ANAEROBIC CULTURE Routine 03/25/2018 9:44 AM Results for this CDT procedure are in the results section. AFB CULTURE + SMEAR Routine 03/25/2018 9:44 AM Results for this CDT procedure are in the results section. SPIN/CONCENTRATION Routine 03/25/2018 9:44 AM Results for this CHARGE CDT procedure are in the results section. DEBRIDEMENT/I&D,WOUND 03/25/2018 8:00 AM Wound dehiscence, TRUNK ANTERIOR CDT surgical, initial encounter Special Needs REQ TF POCT-GLUCOSE METER Routine 03/25/2018 6:57 AM Results for this CDT procedure are in the results section. CBC W/PLT COUNT & AUTO Routine 03/25/2018 4:16 AM Results for this DIFFERENTIAL CDT procedure are in the results section. BASIC METABOLIC PANEL Routine 03/25/2018 4:16 AM Results for this (7) CDT procedure are in the results section. CBC W/PLT COUNT & AUTO Routine 03/25/2018 4:16 AM Results for this DIFFERENTIAL CDT procedure are in the results section. POCT-GLUCOSE METER Routine 03/24/2018 9:05 PM Results for this CDT procedure are in the results section. POCT-GLUCOSE METER Routine 03/24/2018 5:18 PM Results for this CDT procedure are in the results section. POCT-GLUCOSE METER Routine 03/24/2018 12:28 PM Results for this CDT procedure are in the results section. POCT-GLUCOSE METER Routine 03/24/2018 7:10 AM Results for this CDT procedure are in the results section. CBC W/PLT COUNT & AUTO Routine 03/24/2018 4:26 AM Results for this DIFFERENTIAL CDT procedure are in the results section. BASIC METABOLIC PANEL Routine 03/24/2018 4:26 AM Results for this (7) CDT procedure are in the results section. CBC W/PLT COUNT & AUTO Routine 03/24/2018 4:26 AM Results for this DIFFERENTIAL CDT procedure are in the results section. POCT-GLUCOSE METER Routine 03/23/2018 8:57 PM Results for this CDT procedure are in the results section. POCT-GLUCOSE METER Routine 03/23/2018 6:13 PM Results for this CDT procedure are in the results section. XR SPINE LUMBAR Routine 03/23/2018 3:20 PM Results for this COMPLETE MIN 4 VIEWS CDT procedure are in the results section. POCT-GLUCOSE METER Routine 03/23/2018 8:07 AM Results for this CDT procedure are in the results section. CBC W/PLT COUNT & AUTO Routine 03/23/2018 4:48 AM Results for this DIFFERENTIAL CDT procedure are in the results section. BASIC METABOLIC PANEL Routine 03/23/2018 4:48 AM Results for this (7) CDT procedure are in the results section. CBC W/PLT COUNT & AUTO Routine 03/23/2018 4:48 AM Results for this DIFFERENTIAL CDT procedure are in the results section. POCT-GLUCOSE METER Routine 03/22/2018 9:19 PM Results for this CDT procedure are in the results section. POCT-GLUCOSE METER Routine 03/22/2018 12:07 PM Results for this CDT procedure are in the results section. POCT-GLUCOSE METER Routine 03/22/2018 7:44 AM Results for this CDT procedure are in the results section. CBC W/PLT COUNT & AUTO Routine 03/22/2018 4:33 AM Results for this DIFFERENTIAL CDT procedure are in the results section. BASIC METABOLIC PANEL Routine 03/22/2018 4:33 AM Results for this (7) CDT procedure are in the results section. CBC W/PLT COUNT & AUTO Routine 03/22/2018 4:33 AM Results for this DIFFERENTIAL CDT procedure are in the results section. POCT-GLUCOSE METER Routine 03/21/2018 9:05 PM Results for this CDT procedure are in the results section. POCT-GLUCOSE METER Routine 03/21/2018 4:22 PM Results for this CDT procedure are in the results section. POCT-GLUCOSE METER Routine 03/21/2018 11:58 AM Results for this CDT procedure are in the results section. POCT-GLUCOSE METER Routine 03/21/2018 8:35 AM Results for this CDT procedure are in the results section. XR CHEST 1 VIEW Routine 03/21/2018 7:43 AM Results for this PORTABLE/BEDSIDE CDT procedure are in the results section. CBC W/PLT COUNT & AUTO Routine 03/21/2018 3:45 AM Results for this DIFFERENTIAL CDT procedure are in the results section. MAGNESIUM Routine 03/21/2018 3:45 AM Results for this CDT procedure are in the results section. BASIC METABOLIC PANEL Routine 03/21/2018 3:45 AM Results for this (7) CDT procedure are in the results section. CBC W/PLT COUNT & AUTO Routine 03/21/2018 3:45 AM Results for this DIFFERENTIAL CDT procedure are in the results section. POCT-GLUCOSE METER Routine 03/20/2018 8:47 PM Results for this CDT procedure are in the results section. POCT-GLUCOSE METER Routine 03/20/2018 4:26 PM Results for this CDT procedure are in the results section. POCT-GLUCOSE METER Routine 03/20/2018 11:27 AM Results for this CDT procedure are in the results section. XR CHEST 1 VIEW Routine 03/20/2018 7:19 AM Results for this PORTABLE/BEDSIDE CDT procedure are in the results section. POCT-GLUCOSE METER Routine 03/20/2018 6:19 AM Results for this CDT procedure are in the results section. CBC W/PLT COUNT & AUTO Routine 03/20/2018 4:54 AM Results for this DIFFERENTIAL CDT procedure are in the results section. HEMOGLOBIN A1C Routine 03/20/2018 4:54 AM Results for this CDT procedure are in the results section. MAGNESIUM Routine 03/20/2018 4:54 AM Results for this CDT procedure are in the results section. BASIC METABOLIC PANEL Routine 03/20/2018 4:54 AM Results for this (7) CDT procedure are in the results section. CBC W/PLT COUNT & AUTO Routine 03/20/2018 4:54 AM Results for this DIFFERENTIAL CDT procedure are in the results section. POCT-GLUCOSE METER Routine 03/20/2018 12:22 AM Results for this CDT procedure are in the results section. POCT-GLUCOSE METER Routine 03/19/2018 3:06 PM Results for this CDT procedure are in the results section. XR ABDOMEN 1 VIEW Routine 03/19/2018 1:43 PM Results for this CDT procedure are in the results section. POCT-GLUCOSE METER Routine 03/19/2018 10:20 AM Results for this CDT procedure are in the results section. XR CHEST 1 VIEW Routine 03/19/2018 7:40 AM Results for this PORTABLE/BEDSIDE CDT procedure are in the results section. POCT-GLUCOSE METER Routine 03/19/2018 6:56 AM Results for this CDT procedure are in the results section. POCT-GLUCOSE METER Routine 03/19/2018 3:49 AM Results for this CDT procedure are in the results section. CBC W/PLT COUNT & AUTO Routine 03/19/2018 3:45 AM Results for this DIFFERENTIAL CDT procedure are in the results section. BLOOD GAS, ARTERIAL STAT 03/19/2018 3:45 AM Results for this CDT procedure are in the results section. MAGNESIUM Routine 03/19/2018 3:45 AM Results for this CDT procedure are in the results section. BASIC METABOLIC PANEL Routine 03/19/2018 3:45 AM Results for this (7) CDT procedure are in the results section. CBC W/PLT COUNT & AUTO Routine 03/19/2018 3:45 AM Results for this DIFFERENTIAL CDT procedure are in the results section. POCT-GLUCOSE METER Routine 03/19/2018 1:06 AM Results for this CDT procedure are in the results section. GLUCOSE-STAT LAB Routine 03/18/2018 10:19 PM Results for this CDT procedure are in the results section. BLOOD GAS, ARTERIAL STAT 03/18/2018 10:19 PM Results for this CDT procedure are in the results section. SPUTUM CULTURE + GRAM Routine 03/18/2018 7:44 PM Results for this STAIN CDT procedure are in the results section. MAGNESIUM Routine 03/18/2018 7:20 PM Results for this CDT procedure are in the results section. POTASSIUM Routine 03/18/2018 7:20 PM Results for this CDT procedure are in the results section. BLOOD GAS, ARTERIAL STAT 03/18/2018 7:20 PM Results for this CDT procedure are in the results section. POCT-GLUCOSE METER Routine 03/18/2018 7:07 PM Results for this CDT procedure are in the results section. POCT-GLUCOSE METER Routine 03/18/2018 6:00 PM Results for this CDT procedure are in the results section. POCT-GLUCOSE METER Routine 03/18/2018 5:03 PM Results for this CDT procedure are in the results section. POCT-GLUCOSE METER Routine 03/18/2018 3:58 PM Results for this CDT procedure are in the results section. BLOOD GAS, ARTERIAL Routine 03/18/2018 3:25 PM Results for this CDT procedure are in the results section. POCT-GLUCOSE METER Routine 03/18/2018 3:05 PM Results for this CDT procedure are in the results section. XR CHEST 1 VIEW STAT 03/18/2018 11:56 AM Results for this PORTABLE/BEDSIDE CDT procedure are in the results section. CBC W/PLT COUNT & AUTO STAT 03/18/2018 11:51 AM Results for this DIFFERENTIAL CDT procedure are in the results section. CALCIUM, IONIZED STAT 03/18/2018 11:51 AM Results for this CDT procedure are in the results section. HGB/HCT (H&H) - STAT STAT 03/18/2018 11:51 AM Results for this LAB CDT procedure are in the results section. GLUCOSE-STAT LAB STAT 03/18/2018 11:51 AM Results for this CDT procedure are in the results section. POTASSIUM-STAT LAB STAT 03/18/2018 11:51 AM Results for this CDT procedure are in the results section. BLOOD GAS, ARTERIAL STAT 03/18/2018 11:51 AM Results for this CDT procedure are in the results section. LACTIC ACID, VENOUS STAT 03/18/2018 11:51 AM Results for this CDT procedure are in the results section. PHOSPHORUS STAT 03/18/2018 11:51 AM Results for this CDT procedure are in the results section. MAGNESIUM STAT 03/18/2018 11:51 AM Results for this CDT procedure are in the results section. BASIC METABOLIC PANEL STAT 03/18/2018 11:51 AM Results for this (7) CDT procedure are in the results section. CBC W/PLT COUNT & AUTO STAT 03/18/2018 11:51 AM Results for this DIFFERENTIAL CDT procedure are in the results section. TISSUE EXAM AP Routine 03/18/2018 10:46 AM Results for this CDT procedure are in the results section. HGB/HCT (H&H) - STAT STAT 03/18/2018 10:29 AM Results for this LAB CDT procedure are in the results section. GLUCOSE-STAT LAB STAT 03/18/2018 10:29 AM Results for this CDT procedure are in the results section. POTASSIUM-STAT LAB STAT 03/18/2018 10:29 AM Results for this CDT procedure are in the results section. SODIUM NA-STAT LAB STAT 03/18/2018 10:29 AM Results for this CDT procedure are in the results section. BLOOD GAS, ARTERIAL STAT 03/18/2018 10:29 AM Results for this CDT procedure are in the results section. CALCIUM, IONIZED STAT 03/18/2018 10:29 AM Results for this CDT procedure are in the results section. RRL CRITICAL LABS STAT 03/18/2018 10:29 AM Results for this (ABG,NA,K,H&H,GLUCOSE) CDT procedure are in the results section. HGB/HCT (H&H) - STAT STAT 03/18/2018 9:38 AM Results for this LAB CDT procedure are in the results section. GLUCOSE-STAT LAB STAT 03/18/2018 9:38 AM Results for this CDT procedure are in the results section. POTASSIUM-STAT LAB STAT 03/18/2018 9:38 AM Results for this CDT procedure are in the results section. SODIUM NA-STAT LAB STAT 03/18/2018 9:38 AM Results for this CDT procedure are in the results section. BLOOD GAS, ARTERIAL STAT 03/18/2018 9:38 AM Results for this CDT procedure are in the results section. CALCIUM, IONIZED STAT 03/18/2018 9:38 AM Results for this CDT procedure are in the results section. RRL CRITICAL LABS STAT 03/18/2018 9:38 AM Results for this (ABG,NA,K,H&H,GLUCOSE) CDT procedure are in the results section. HGB/HCT (H&H) - STAT STAT 03/18/2018 8:41 AM Results for this LAB CDT procedure are in the results section. GLUCOSE-STAT LAB STAT 03/18/2018 8:41 AM Results for this CDT procedure are in the results section. POTASSIUM-STAT LAB STAT 03/18/2018 8:41 AM Results for this CDT procedure are in the results section. SODIUM NA-STAT LAB STAT 03/18/2018 8:41 AM Results for this CDT procedure are in the results section. BLOOD GAS, ARTERIAL STAT 03/18/2018 8:41 AM Results for this CDT procedure are in the results section. CALCIUM, IONIZED STAT 03/18/2018 8:41 AM Results for this CDT procedure are in the results section. RRL CRITICAL LABS STAT 03/18/2018 8:41 AM Results for this (ABG,NA,K,H&H,GLUCOSE) CDT procedure are in the results section. BYPASS,AORTO-FEMORAL 03/18/2018 8:00 AM PAD (peripheral CDT artery disease) (HCC) POCT-GLUCOSE METER Routine 03/18/2018 7:48 AM Results for this CDT procedure are in the results section. PLATELET AGGREGATION: Routine 03/18/2018 7:01 AM Results for this FUNCTION SCREEN CDT procedure are in the results section. TRANSFUSION SERVICE 03/12/2018 6:00 PM REPORT - SCAN CDT XR CHEST 2 VIEWS Routine 03/11/2018 2:40 PM Results for this CDT procedure are in the results section. CBC W/PLT COUNT & AUTO Routine 03/11/2018 2:13 PM Results for this DIFFERENTIAL CDT procedure are in the results section. TYPE AND SCREEN, Routine 03/11/2018 2:13 PM Results for this AUTOMATED CDT procedure are in the results section. APTT Routine 03/11/2018 2:13 PM Results for this CDT procedure are in the results section. PROTHROMBIN TIME/INR Routine 03/11/2018 2:13 PM Results for this CDT procedure are in the results section. CBC W/PLT COUNT & AUTO Routine 03/11/2018 2:13 PM Results for this DIFFERENTIAL CDT procedure are in the results section. COMPREHENSIVE Routine 03/11/2018 2:13 PM Results for this METABOLIC PANEL CDT procedure are in the results section. ECG 12-LEAD Routine 03/11/2018 1:51 PM CDT Procedure Note - Interface, External Ris In - 03/11/2018 4:31 PM CDT Ventricular Rate 70 BPM Atrial Rate 72 BPM QRS Duration 186 ms Q-T Interval 476 ms QTC Calculation(Bazett) 514 ms R [place] 261 degrees T [place] 69 degrees Electronic ventricular pacemaker No previous ECGs available ECG 12-LEAD Routine 03/11/2018 1:51 PM CDT after 01/23/2018 Results RHYTHM STRIP - SCAN (01/17/2019 2:21 PM CDT)Only the most recent of3 resultswithin the time period is included. Narrative Performed At Venous doppler leg, left (06/13/2018 11:49 AM CDT) Ejection Fraction [facility] Specimen Impressions Performed At [facility] Left Impression 1. There is no deep venous obstruction in the common femoral, profunda femoral, femoral, popliteal, posterior tibial or peroneal veins. 2. There is no superficial venous obstruction in the great saphenous vein. Conclusions Summary Venous duplex imaging and compression of the left lower extremity were performed. The veins were technically difficult to visualize due to edema and patient body habitus. The left venous system was patent and compressible with no evidence of thrombus. The venous Doppler waveforms were phasic with respiration. Signature Velocities are measured in cm/s ; Diameters are measured in cm Narrative Performed At PV LAB - Lower Extremities DVT Study [facility] Demographics Patient EDDIE SaucedoDate of Study 06/13/2018 82 Visit [id number] Female of 1935 Number Referring Billy Mcmanus, Room Number Physician Senior Marketing Engineer Thelma HindsInterpretingJ. Benson Pompa, T Physician , JOVITA Cooney. T, [facility] Procedure Type of Study: Veins: Lower Extremities DVT Study, VENOUS DOPPLER LEG, LEFT. Indications for Study:PVD. Patient Status:Routine. Study Location:Vascular Lab. Technical Quality:Technically Difficult. Risk Factors History of Disease + +----+ + !Diagnosis !Date!Comments ! + +----+ + !History/Risk!!DM, HTN, HLD, COPD, Pacemaker, Former Smoker, COPD, ! !Factors:!!PVD- Aorto-femoral bypass (03/18/18)! + +----+ + Procedure Note Interface, External Ris In - 06/13/2018 1:20 PM CDT [facility] - Lower Extremities DVT Study Demographics Patient Name DEDIE RICKS Date of Study 06/13/2018 Age 82 Visit Number [id number] Gender Female Date of 1935 Number Referring Billy Mcmanus, Room Number Physician Senior Marketing Engineer Thelma Hinds Interpreting Slime Pompa, T Physician , JOVITA Cooney. T, [facility] Procedure Type of Study: Veins: Lower Extremities DVT Study, VENOUS DOPPLER LEG, LEFT. Indications for Study:PVD. Patient Status:Routine. Study Location:Vascular Lab. Technical Quality:Technically Difficult. Risk Factors History of Disease + +----+ + !Diagnosis !Date!Comments ! + +----+ + !History/Risk ! !DM, HTN, HLD, COPD, Pacemaker, Former Smoker, COPD, ! !Factors: ! !PVD- Aorto-femoral bypass (03/18/18) ! + +----+ + Impressions Left Impression 1. There is no deep venous obstruction in the common femoral, profunda femoral, femoral, popliteal, posterior tibial or peroneal veins. 2. There is no superficial venous obstruction in the great saphenous vein. Conclusions Summary Venous duplex imaging and compression of the left lower extremity were performed. The veins were technically difficult to visualize due to edema and patient body habitus. The left venous system was patent and compressible with no evidence of thrombus. The venous Doppler waveforms were phasic with respiration. Signature Velocities are measured in cm/s ; Diameters are measured in cm Performing Organization Address City/State/Zipcode Phone Number [facility] POC-Glucose meter (04/25/2018 12:24 PM CDT)Only the most recent of68 resultswithin the time period is included. POC-Glucose Meter 147 (H)Comment: TESTED AT 70 - 110 mg/dL [facility] [address] [address] Specimen Blood Performing Organization Address [facility]/Zipcode Phone Number [address] [address] [place] TRANSFUSION SERVICE REPORT - SCAN (04/23/2018 5:50 PM CDT)Only the most recent of3 resultswithin the time period is included. Narrative Performed At AFB culture + smear (04/22/2018 8:46 AM CDT)Only the most recent of2 resultswithin the time period is included. Result No acid-fast bacilli isolated in [facility] 42 days CENTER AFB Smear No acid fast bacilli seen [facility] Specimen Tissue - Groin, Right Performing Organization Address [facility] Centercode Phone Number [address] [address] CENTER Anaerobic culture (04/22/2018 8:46 AM CDT)Only the most recent of2 resultswithin the time period is included. Result No anaerobes isolated [facility] Specimen Tissue - Groin, Right Performing Organization Address [facility]/Zipcode Phone Number [address] [address] CENTER Surgically obtained culture + gram stain (04/22/2018 8:46 AM CDT)Only the most recent of2 resultswithin the time period is included. Result No growth [facility] Gram Stain Result No WBCs [facility] Gram Stain Result No organisms seen [facility] Specimen Tissue - Groin, Right Performing Organization Address [facility]/Zipcode Phone Number [address] [address] [phone] CENTER Fungus culture + smear (04/22/2018 8:46 AM CDT)Only the most recent of2 resultswithin the time period is included. Result No fungus isolated in 28 days [facility] Fungus Smear No fungi seen [facility] Specimen Tissue - Groin, Right Performing Organization Address [facility]/Zipcode Phone Number [facility] [address] [place] [phone] CENTER Type and screen, automated (04/21/2018 10:27 PM CDT)Only the most recent of2 resultswithin the time period is included. ABO/RH AUTOMATED (BEAKER) O POSITIVE [facility] Ab Scrn NEGATIVE [facility] Specimen Blood Performing Organization Address City/[facility]/Zipcode Phone Number [facility] [address] [place] [address] CBC with platelet count + automated diff (04/21/2018 10:27 PM CDT)Only the most recent of15 resultswithin the time period is included. WBC 8.7 3.5 - 10.5 K/L [facility] RBC 4.77 3.93 - 5.22 M/L [facility] Hemoglobin 13.6 11.2 - 15.7 GM/DL [facility] Hematocrit 45.4 (H) 34.1 - 44.9 % [facility] MCV 95.2 (H) 79.4 - 94.8 fL [facility] MCH 28.5 25.6 - 32.2 pg [facility] MCHC 30.0 (L) 32.2 - 35.5 GM/DL [facility] RDW 15.2 (H) 11.7 - 14.4 % [facility] Platelets 267 150 - 450 K/CU MM [facility] MPV 11.2 9.4 - 12.3 fL [facility] nRBC 0 0 - 0 /100 WBC [facility] % Neutros 73 % [facility] % Lymphs 16 % [facility] % Monos 8 % [facility] % Eos 1 % [facility] % Baso 1 % [facility] # Neutros 6.38 (H) 1.56 - 6.13 K/L [facility] # Lymphs 1.37 1.18 - 3.74 K/L [facility] # Monos 0.73 (H) 0.24 - 0.36 K/L [facility] # Eos 0.12 0.04 - 0.36 K/L [facility] # Baso 0.08 0.01 - 0.08 K/L [facility] Immature Granulocytes-Relative 1 0 - 1 % [facility] Specimen Blood Performing Organization Address City/State/Zipcode Phone Number [address] [address] [phone] [place] Prothrombin time/INR (04/21/2018 10:27 PM CDT)Only the most recent of2 resultswithin the time period is included. Protime 14.0 11.7 - 14.7 seconds [facility] INR 1.1 <=5.9 [facility] Specimen Blood Narrative Performed At [facility] RECOMMENDED COUMADIN/WARFARIN INR THERAPY RANGES STANDARD DOSE: 2.0 - 3.0 Includes: PROPHYLAXIS for venous thrombosis, systemic embolization; TREATMENT for venous thrombosis and/or pulmonary embolus. HIGH RISK: Target INR is 2.5-3.5 for patients with mechanical heart valves. Performing Organization Address City/State/[facility] Cancer Centercode Phone Number [address] [address] [phone] [place] Comprehensive metabolic panel (04/21/2018 10:27 PM CDT)Only the most recent of2 resultswithin the time period is included. Protein, Total 7.5 6.0 - 8.3 gm/dL [facility] Albumin 3.8 3.5 - 5.0 g/dL [facility] Alkaline Phosphatase 53 40 - 150 U/L [facility] Total Bilirubin 0.3 0.2 - 1.2 mg/dL [facility] Sodium 138 136 - 145 meq/L [facility] Potassium 3.9 3.5 - 5.1 meq/L [facility] Chloride 101 98 - 107 meq/L [facility] CO2 28 22 - 29 meq/L [facility] BUN 22 (H) 7 - 21 mg/dL [facility] Creatinine 0.98 0.57 - 1.25 mg/dL [facility] Glucose 154 (H) 70 - 105 mg/dL [facility] Calcium 10.1 8.4 - 10.2 mg/dL [facility] AST 20 5 - 34 U/L [facility] ALT 12 6 - 55 U/L [facility] EGFR 54Comment: ESTIMATED GFR mL/min/1.[address] [facility] IS NOT ACCURATE [facility] CREATININE CLEARANCE IN PREDICTING GLOMERULAR FILTRATION RATE. ESTIMATED GFR IS NOT APPLICABLE FOR DIALYSIS PATIENTS. Specimen Blood Performing Organization Address City/State/Zipcode Phone Number [facility] [address] [place] [address] abdomen/pelvis with IV contrast (04/21/2018 3:44 AM CDT) Specimen Narrative Performed At FINAL REPORT [facility] HISTORY : Abd pain, fever, abscess suspected [...] Please see above for details. Signed: Freya Kohli MD Report Verified Date/Time:04/21/2018 08:32:26 Reading Location: [facility] C0W Consult Reading Room Procedure Note Interface, External [...] Please see above for details. Signed: Freya Kohli MD Report Verified Date/Time: 04/21/2018 08:32:26 Reading Location: [facility] B1 [id number] Consult Reading Room Performing Organization Address City/State/Zipcode Phone Number [employer] Basic Metabolic Panel (04/20/2018 4:57 AM CDT)Only the most recent of13 resultswithin the time period is included. Sodium 142 136 - 145 meq/L [facility] Potassium 3.7 3.5 - 5.1 meq/L [facility] Chloride 102 98 - 107 meq/L [facility] CO2 30 (H) 22 - 29 meq/L [facility] BUN 22 (H) 7 - 21 mg/dL [facility] Creatinine 1.05 0.57 - 1.25 mg/dL [facility] Glucose 88 70 - 105 mg/dL [facility] Calcium 10.1 8.4 - 10.2 mg/dL [facility] EGFR 50Comment: ESTIMATED GFR IS mL/min/1.73 sq m [facility] NOT ACCURATE CREATININE [facility] CENTER CLEARANCE IN PREDICTING GLOMERULAR FILTRATION RATE. ESTIMATED GFR IS NOT APPLICABLE FOR DIALYSIS PATIENTS. Specimen Blood Performing Organization Address City/State/Zipcode Phone Number [address] [address] CENTER Blood culture (04/19/2018 11:29 AM CDT)Only the most recent of2 resultswithin the time period is included. Result No growth in 5 days [facility] Specimen Blood Performing Organization Address City/[facility] Cancer Centercode Phone Number [address] [address] CENTER TSH/Free T4 If Indicated (04/19/2018 11:20 AM CDT) TSH 2.75 0.35 - 4.94 uIU/mL [facility] Specimen Blood Performing Organization Address City/[facility]/Zipcode Phone Number [address] [address] CENTER Magnesium (04/19/2018 11:20 AM CDT)Only the most recent of6 resultswithin the time period is included. Magnesium 2.2 1.6 - 2.6 mg/dL [facility] Specimen Blood Performing Organization Address City/State/Zipcode Phone Number [facility] [address] [place] [address] CENTER Wound culture + gram stain (04/19/2018 8:38 AM CDT) Result PSEUDOMONAS AERUGINOSA (A) [facility] Result PSEUDOMONAS AERUGINOSA [facility] (A)Comment: of a second type MEDICAL CENTER Result KLEBSIELLA PNEUMONIAE (A) [facility] [place] Result STAPHYLOCOCCUS, COAGULASE [facility] NEGATIVE (A) MEDICAL CENTER Result PSEUDOMONAS AERUGINOSA [facility] (A)Comment: of a third type MEDICAL CENTER Result STAPHYLOCOCCUS, COAGULASE [facility] NEGATIVE (A)Comment: of a MEDICAL CENTER second type Gram Stain Result <1+ WBCs [facility] Gram Stain Result <1+ gram negative rods [facility] Specimen Wound - Groin, Right Organism Antibiotic Method Susceptibility Pseudomonas aeruginosa Amikacin [...] <=8: Susceptible Pseudomonas aeruginosa Tobramycin <=2: Susceptible Performing Organization Address [facility] Phone Number [address] [address] CENTER Potassium-Stat Lab (03/25/2018 10:53 AM CDT)Only the most recent of5 resultswithin the time period is included. Potassium 3.0 (L) 3.6 - 5.5 meq/L [facility] Specimen Blood, Arterial Performing Organization Address City/[facility]/Zipcode Phone Number [address] [address] [phone] [place] Glucose-Stat Lab (03/25/2018 10:53 AM CDT)Only the most recent of6 resultswithin the time period is included. Glucose 116 (H) 70 - 110 mg/dL [facility] Specimen Blood, Arterial Performing Organization Address [facility] Centercode Phone Number [address] [address] [place] HGB/HCT (H&H)-Stat Lab (03/25/2018 10:53 AM CDT)Only the most recent of5 resultswithin the time period is included. Hemoglobin 11.2 (L) 12.0 - 15.0 g/dL [facility] Hematocrit 33.0 (L) 36.0 - 45.0 % [facility] Specimen Blood, Arterial Performing Organization Address [facility] Centercode Phone Number [address] [phone] [place] SPIN/CONCENTRATION CHARGE (03/25/2018 9:44 AM CDT) Concentration charged Done [facility] Specimen Body Fluid Performing Organization Address [facility] Phone Number [address] [phone] [place] XR spine lumbar complete 4 views min (03/23/2018 3:20 PM CDT) Specimen Narrative Performed At FINAL REPORT [facility] Lumbar spine. HISTORY: Acute back pain. COMPARISON STUDY: None available. FINDINGS: Six views of the lumbar spine demonstrate no evidence of fracture, malalignment or soft tissue swelling. A levoscoliosis is seen. Moderate changes are noted. Extensive atherosclerosis is seen. Clips project over the abdomen and pelvis. IMPRESSION: Degenerative changes. No definite acute abnormality. Signed: Jomar Gillette MD Report Verified Date/Time:03/23/2018 16:25:16 Reading Location: [facility] B1 [id number] Ortho Consult Reading Room Procedure Note [...] Report Verified Date/Time: 03/23/2018 16:25:16 Reading Location: [facility] [id number] Ortho Consult Reading Room Performing Organization Address City/State/Zipcode Phone Number [employer] [facility] XR chest 1 view portable / bedside (03/21/2018 7:43 AM CDT)Only the most recent of4 resultswithin the time period is included. Specimen Narrative Performed At FINAL REPORT [facility] HISTORY : post cardiovascular procedure. Comparison: 03/20/2018 [...] or aspiration cannot be excluded. Signed: Freya Kohli MD Report Verified Date/Time:03/21/2018 08:03:21 Reading Location: [facility] Diagnostic Imaging Reading Room - [place] [id number] Procedure Note Interface, External Ris In - [...] or aspiration cannot be excluded. Signed: Freya Kohli MD Report Verified Date/Time: 03/21/2018 08:03:21 Reading Location: [facility] Diagnostic Imaging Reading Room - [place] [address] Performing Organization Address City/State/Zipcode Phone Number [facility] Hemoglobin A1c (03/20/2018 4:54 AM CDT) Hemoglobin A1C 6.0 4.3 - 6.1 % [facility] Specimen Blood Performing Organization Address City/State/Zipcode Phone Number [place] [phone] [place] [address] [phone] CENTER XR abdomen / KUB 1 view (03/19/2018 1:43 PM CDT) Specimen Narrative Performed At FINAL REPORT [facility] TECHNIQUE: Supine views of the abdomen dated [...] MD Report Verified Date/Time:03/19/2018 15:02:35 Reading Location: [facility] Radiology Reading Room Procedure Note Interface, External [...] Report Verified Date/Time: 03/19/2018 15:02:35 Reading Location: [facility] Radiology Reading Room Performing Organization Address City/State/Zipcode Phone Number [facility] Blood gas, arterial (03/19/2018 3:45 AM CDT)Only the most recent of8 resultswithin the time period is included. pH, Arterial 7.37 7.35 - 7.45 [facility] pCO2, Arterial 47 (H) 35 - 45 mmHg [facility] pO2, Arterial 68 (L) 80 - 90 mmHg [facility] O2 Sat, Arterial 92.4 (L) 96.0 - 97.0 % [facility] HCO3, Arterial 26 21 - 29 mmol/L [facility] Base Excess, Arterial 0.6 -2.0 - 3.0 mmol/L [facility] Patient Temperature 37.4 C [facility] FIO2 40.0 % [facility] Specimen Blood, Arterial Performing Organization Address [facility] Centercode Phone Number [address] [address] CENTER Sputum Culture + Gram Stain (03/18/2018 7:44 PM CDT) Result 3+ Normal respiratory anu [facility] Gram Stain Result <1+ WBCs [facility] Gram Stain Result 10-15 epithelial cells [facility] Gram Stain Result 1+ gram positive cocci in [facility] Specimen Sputum Performing Organization Address City/[facility]/Zipcode Phone Number [address] [address] CENTER Potassium (03/18/2018 7:20 PM CDT) Potassium 3.7 3.5 - 5.1 meq/L [facility] Specimen Blood Narrative Performed At 8 hours after PO replacement completed [facility] Performing Organization Address City/[facility] Cent[facility]ode Phone Number [address] [address] [phone] [place] Calcium, Ionized (03/18/2018 11:51 AM CDT)Only the most recent of4 resultswithin the time period is included. Calcium, Ion 1.25 1.12 - 1.27 mmol/L [facility] pH, Blood 7.37 [facility] Specimen Blood Performing Organization Address [facility] Cent[facility]opa Phone Number [address] [address] [place] Lactic acid, venous, whole blood (03/18/2018 11:51 AM CDT) Lactate, Venous 1.0Comment: Specimen 0.5 - 2.2 mmol/L [facility] slightly hemolyzed [facility] Specimen Blood Narrative Performed At [facility] Effective 02/09/2016: Units/Reference Range Change New: 0.5-2.2 mmol/LPrevious: 5-20 mg/dL Performing Organization Address City/[facility] Phone Number [address] [address] [place] Phosphorus (03/18/2018 11:51 AM CDT) Phosphorus 3.9 2.3 - 4.7 mg/dL [facility] Specimen Blood Performing Organization Address City/[facility] Cancer Centercode Phone Number [address] [address] [place] Tissue Exam (03/18/2018 10:46 AM CDT) Case Report Surgical Pathology Report Case: [id number] [facility] Authorizing Provider:Billy Mcmanus, Collected: 03/18/2018 1046 [facility] Ordering Location: [facility] Received: 03/18/2018 1131 [facility] Pathologist: Chris Caraballo MD Specimen:Plaque, AORTIC PLAQUE DIAGNOSIS AORTA, ATHERECTOMY: [facility] CALCIFIC ATHEROSCLEROTIC PLAQUE [facility] Signing Pathologist Direct Phone Line: [phone] CPT Code(s) 17576; 83739 [facility] CLINICAL HISTORY PAD [facility] SPECIMEN SOURCE Aortic plaque [facility] GROSS DESCRIPTION Received in saline labeled "plaque", description "aortic plaque" is a 4.5 x 3.5 x 0.6 cm aggregate of felix-white to yellow-panchal, rubbery, calcified fibrous tissue. [facility] Representative sections are submitted in cassette A1 for decalcification. DB/ ew MICROSCOPIC DESCRIPTION Performed [facility] Specimen Tissue Performing Organization Address City/[facility] Phone Number [address] [address] [place] Sodium Na-Stat Lab (03/18/2018 10:29 AM CDT)Only the most recent of3 resultswithin the time period is included. Sodium 141 135 - 148 meq/L [facility] Specimen Blood, Arterial Performing Organization Address [facility] Phone Number [address] [address] [place] Platelet Aggregation: Function Screen (03/18/2018 7:01 AM CDT) Weak ADP 63 60 - 91 % [facility] Plt. Function Screen 60-100% indicates [facility] Interpretation normal platelet [facility] function Pathologist: Teresa De León MD [facility] (electronic [facility] signature) Platelets 209 150 - 450 K/CU MM [facility] Specimen Blood Narrative Performed At for patients on clopidogrel in past two weeks [facility] Performing Organization Address City/[facility]/Zipcode Phone Number [facility] [address] [place] [address] CENTER XR chest 2 views (03/11/2018 2:40 PM CDT) Specimen Narrative Performed At FINAL REPORT [facility] Chest two views INDICATION: Preoperative exam. Peripheral arterial disease. COMPARISON: None available IMPRESSION: There is minimal basilar atelectasis or scarring. There is no focal consolidation, vascular congestion, pleural effusion, or pneumothorax. The cardiac silhouette is enlarged. Mild aortic ectasia/tortuosity and calcification, osteopenia, degenerative spine changes, and a left chest pacemaker are noted. Signed: Velma Still MD Report Verified Date/Time:03/11/2018 14:44:31 Reading Location: [facility] C013 Consult Reading Room Procedure Note Interface, External [...] Report Verified Date/Time: 03/11/2018 14:44:31 Reading Location: [facility] B1 [id number] Consult Reading Room Performing Organization Address [facility] Centercode Phone Number [facility] aPTT (03/11/2018 2:13 PM CDT) PTT 27.8 22.5 - 36.0 seconds [facility] Specimen Blood Performing Organization Address [facility]/Zipcode Phone Number [facility] [address] [place] [address] [place] Electrocardiogram, 12-lead (03/11/2018 1:51 PM CDT) Specimen Narrative Performed At Ventricular Rate 70 BPM GE MUSE Atrial Rate 72 BPM QRS Duration 186 ms Q-T Interval 476 ms QTC Calculation(Bazett) 514 ms R [place] 261 degrees T [place] 69 degrees Atrial fibrillation Electronic ventricular pacemaker No previous ECGs available Confirmed by Ruby MCWILLIAMS MICHAEL ([id number]) on 03/12/2018 8:38:53 AM Procedure Note Interface, External Ris In - 03/12/2018 8:39 AM CDT Ventricular Rate 70 BPM Atrial Rate 72 BPM QRS Duration 186 ms Q-T Interval 476 ms QTC Calculation(Bazett) 514 ms R [place] 261 degrees T [place] 69 degrees Atrial fibrillation Electronic ventricular pacemaker No previous ECGs available Confirmed by Ruby MCWILLIAMS MICHAEL ([id number]) on 03/12/2018 8:38:53 AM Performing Organization Address City/State/Zipcode Phone Number GE MUSE after 01/23/2018 Insurance Payer Benefit Plan / Group Subscriber ID Type Phone Address MEDICARE MEDICARE A B xxxxxxxxxx Medicare MCR SUPPLEMENT/INDIVIDUAL [employer]/[facility] xxxxxxxxxxx [facility] Advance Directives For more information, please contact:[address] [phone] Code Status Date Activated Date Inactivated Comments Full Code 04/21/2018 6:51 PM 04/25/2018 7:56 PM This code status was determined by: Patient Full Code 03/18/2018 5:47 AM 03/28/2018 6:27 PM This code status was determined by: Patient
--- OUTSIDE RECORDS SUMMARY | 2019-01-24 12:46 | XMS REPORT ---
:1935 [facility] [address] [place] [address] Dr. Aguilar [address] [place] [id number] Care Team Providers Name Role Phone GABRIEL VARGAS Unavailable Unavailable BILLY MCMANUS Unavailable Unavailable Problems This patient has no known problems. Allergies, Adverse Reactions, Alerts This patient has no known allergies or adverse reactions. Medications This patient has no known medications. Results Test Description Test Time Test Comments Text Results Atomic Results Result Comments AFB CULTURE + SMEAR 2018-06-03 00:11:00 Test Item Value Reference Range Comments CULTURE (BEAKER) (test egwt=2152) No acid-fast bacilli isolated in 42 days AFB SMEAR (BEAKER) (test hwia=011) No acid fast bacilli seen FUNGUS CULTURE + [id number] 17:08:00 Test Item Value Reference Range Comments CULTURE (BEAKER) (test No fungus isolated in 28 days pnhr=2227) FUNGUS SMEAR (BEAKER) (test No fungi seen cpad=7933) AFB CULTURE + [id number] 02:56:00 Test Item Value Reference Range Comments CULTURE (BEAKER) (test No acid-fast bacilli isolated phzr=3681) in 42 days AFB SMEAR (BEAKER) (test No acid fast bacilli seen dqyc=939) ANAEROBIC [id number] 17:45:00 Test Item Value Reference Range Comments CULTURE (BEAKER) (test iwwo=7611) No anaerobes isolated BLOOD [id number] 17:43:00 Test Item Value Reference Range Comments CULTURE (BEAKER) (test hwlw=6939) No growth in 5 days BLOOD [id number] 17:43:00 Test Item Value Reference Range Comments CULTURE (BEAKER) (test sktx=6523) No growth in 5 days POCT-GLUCOSE [id number] 12:38:00 Test Item Value Reference Range Comments POC-GLUCOSE METER (BEAKER) 147 mg/dL 70-110 TESTED AT [facility] [address] [facility] (test oetu=8785) [facility] [address] WOUND CULTURE + GRAM [id number] 10:46:00 Test Item Value Reference Range Comments CULTURE ([email or web address]) (test PSEUDOMONAS 4+ Pseudomonas giji=2915) AERUGINOSA aeruginosa Amikacin (test code=1) Susceptible 0-16 , Resistant <0 or >16 Aztreonam (test Susceptible 0-8 , code=32) Resistant <0 or >8 Cefepime (test code=51) Susceptible 0-8 , Resistant <0 or >8 Ceftazidime (test Susceptible 0-8 , code=27) Resistant <0 or >8 Ciprofloxacin (test Susceptible 0-1 , code=7) Resistant <0 or >1 Doripenem (test Susceptible 0-2 , iyei=133) Resistant <0 or >2 Gentamicin (test Susceptible [...] , code=25) Resistant <0 or >4 CULTURE ([email or web address]) (test PSEUDOMONAS 4+ Pseudomonas cafy=3965) AERUGINOSA aeruginosaof a second type Amikacin (test code=1) Susceptible 0-16 , Resistant <0 or >16 Aztreonam (test Susceptible 0-8 , code=32) Resistant <0 or >8 Cefepime (test code=51) Susceptible 0-8 , Resistant <0 or >8 Ceftazidime (test Susceptible 0-8 , code=27) Resistant <0 or >8 Ciprofloxacin (test Susceptible 0-1 , code=7) Resistant <0 or >1 Doripenem (test Susceptible 0-2 , caoy=323) Resistant <0 or >2 Gentamicin (test Susceptible [...] CULTURE (BEAKER) (test KLEBSIELLA PNEUMONIAE <1+ Klebsiella ybtu=3709) pneumoniae Amikacin (test code=1) Ampicillin + Sulbactam (test code=6) Aztreonam (test code=32) Cefepime (test code=51) Cefoxitin (test code=68) Ceftazidime (test code=27) Ceftriaxone (test code=52) Ertapenem (test code=38) Gentamicin (test code=18) Levofloxacin (test code=22) Meropenem (test code=34) Nitrofurantoin (test code=23) Piperacillin + Tazobactam (test code=29) Tetracycline (test code=2) Tobramycin (test code=25) Trimethoprim + Sulfamethoxazole (test code=47) CULTURE (BEAKER) (test COAGULASE NEGATIVE 1+ Coagulase negative tmnl=1061) STAPHYLOCOCCUS Staphylococcus Clindamycin (test code=10) Erythromycin (test code=4) Levofloxacin (test code=22) Linezolid (test code=40) Nitrofurantoin (test code=23) Oxacillin (test code=14) Rifampin (test code=43) Tetracycline (test code=2) Trimethoprim + Sulfamethoxazole (test code=47) Vancomycin (test Susceptible 0-4 , code=13) Resistant <0 or >4 CULTURE (BEAKER) (test PSEUDOMONAS 4+ Pseudomonas bled=9883) AERUGINOSA aeruginosaof a third type Amikacin (test code=1) Susceptible 0-16 , Resistant <0 or >16 Aztreonam (test Susceptible 0-8 , code=32) Resistant <0 or >8 Cefepime (test code=51) Susceptible 0-8 , Resistant <0 or >8 Ceftazidime (test Susceptible 0-8 , code=27) Resistant <0 or >8 Ciprofloxacin (test Susceptible 0-1 , code=7) Resistant <0 or >1 Doripenem (test Susceptible 0-2 , etmw=961) Resistant <0 or >2 Gentamicin (test Susceptible [...] >4 CULTURE (BEAKER) (test <1+ Coagulase negative apez=1433) Staphylococcusof a second type GRAM STAIN RESULT <1+ WBCs (BEAKER) (test kvsr=1564) GRAM STAIN RESULT <1+ gram negative (BEAKER) (test rods fppl=983360) SURGICALLY OBTAINED CULTURE + GRAM [id number] 08:30:00 Test Item Value Reference Range Comments CULTURE (BEAKER) (test tezs=5266) No growth GRAM STAIN RESULT (BEAKER) (test No WBCs jnmc=8041) GRAM STAIN RESULT (BEAKER) (test No organisms seen xoro=85383) POCT-GLUCOSE [id number] 07:23:00 Test Item Value Reference Range Comments POC-GLUCOSE METER (BEAKER) 97 mg/dL 70-110 TESTED AT [address] (test gcln=8679) [facility] [address] POCT-GLUCOSE [id number] 22:04:00 Test Item Value Reference Range Comments POC-GLUCOSE METER (BEAKER) 177 mg/dL 70-110 TESTED AT [address] (test vlpi=8810) [facility] [address] POCT-GLUCOSE [id number] 17:38:00 Test Item Value Reference Range Comments POC-GLUCOSE METER (BEAKER) 232 mg/dL 70-110 TESTED AT [address] (test hobm=4946) [facility] [address] POCT-GLUCOSE [id number] 12:40:00 Test Item Value Reference Range Comments POC-GLUCOSE METER (BEAKER) 139 mg/dL 70-110 TESTED AT [address] (test oxkz=9476) [facility] [address] POCT-GLUCOSE [id number] 07:47:00 Test Item Value Reference Range Comments POC-GLUCOSE METER (BEAKER) 96 mg/dL 70-110 TESTED AT [address] (test tipg=5505) [facility] [address] POCT-GLUCOSE [id number] 04:52:00 Test Item Value Reference Range Comments POC-GLUCOSE METER (BEAKER) 112 mg/dL 70-110 TESTED AT [address] (test nksv=5751) [place] [id number] POCT-GLUCOSE [id number] 23:28:00 Test Item Value Reference Range Comments POC-GLUCOSE METER (BEAKER) 114 mg/dL 70-110 TESTED AT [address] (test tpfn=9164) [place] [address] POCT-GLUCOSE [id number] 17:12:00 Test Item Value Reference Range Comments POC-GLUCOSE METER (BEAKER) 155 mg/dL 70-110 TESTED AT [address] (test leak=3012) [facility] [address] POCT-GLUCOSE [id number] 12:17:00 Test Item Value Reference Range Comments POC-GLUCOSE METER (BEAKER) 163 mg/dL 70-110 TESTED AT [address] (test payi=5587) [place] [address] FUNGUS CULTURE + [id number] 09:29:00 Test Item Value Reference Range Comments CULTURE (BEAKER) (test No fungus isolated in 28 days broe=5282) FUNGUS SMEAR (BEAKER) (test <1+ hyphal elements seen xqnc=3531) See smear results.POCT-GLUCOSE [id number] 21:47:00 Test Item Value Reference Range Comments POC-GLUCOSE METER (BEAKER) 211 mg/dL 70-110 TESTED AT [address] (test cuuj=6987) [facility] [address] POCT-GLUCOSE [id number] 17:07:00 Test Item Value Reference Range Comments POC-GLUCOSE METER (BEAKER) 160 mg/dL 70-110 TESTED AT [address] (test dxhp=2523) [place] [address] POCT-GLUCOSE [id number] 11:56:00 Test Item Value Reference Range Comments POC-GLUCOSE METER (BEAKER) 108 mg/dL 70-110 TESTED AT [facility] [address] (test qhor=3805) [facility] [address] COMPREHENSIVE METABOLIC [id number] 23:00:00 Test Item Value Reference Range Comments TOTAL PROTEIN (BEAKER) 7.5 gm/dL 6.0-8.3 (test dlor=390) ALBUMIN (BEAKER) (test 3.8 g/dL 3.5-5.0 fcyd=0430) ALKALINE PHOSPHATASE 53 U/L 40-150 (BEAKER) (test kbop=639) BILIRUBIN TOTAL (BEAKER) 0.3 mg/dL 0.2-1.2 (test pepk=693) SODIUM (BEAKER) (test 138 meq/L 136-145 smmv=800) POTASSIUM (BEAKER) (test 3.9 meq/L 3.5-5.1 yzhf=230) CHLORIDE (BEAKER) (test 101 meq/L 98-107 iboe=728) CO2 (BEAKER) (test 28 meq/L 22-29 zrdo=142) BLOOD UREA NITROGEN 22 mg/dL 7-21 (BEAKER) (test sovc=027) CREATININE (BEAKER) (test 0.98 mg/dL 0.57-1.25 hvyb=110) GLUCOSE RANDOM (BEAKER) 154 mg/dL 70-105 (test bxhk=638) CALCIUM (BEAKER) (test 10.1 mg/dL 8.4-10.2 zvpi=511) AST (SGOT) (BEAKER) (test 20 U/L 5-34 znsi=199) ALT (SGPT) (BEAKER) (test 12 U/L 6-55 geac=081) EGFR (BEAKER) (test 54 mL/min/1.73 sq m ESTIMATED GFR IS NOT pjpk=5439) ACCURATE CREATININE CLEARANCE IN PREDICTING GLOMERULAR FILTRATION RATE. ESTIMATED GFR IS NOT APPLICABLE FOR DIALYSIS PATIENTS. PROTHROMBIN [id number] 22:52:00 Test Item Value Reference Range Comments PROTIME (BEAKER) (test bmez=153) 14.0 seconds 11.7-14.7 INR (BEAKER) (test kxwn=580) 1.1 <=5.9 RECOMMENDED COUMADIN/WARFARIN INR THERAPY RANGESSTANDARD DOSE: 2.0 - 3.0 Includes: PROPHYLAXIS forvenous thrombosis, systemic embolization; TREATMENT for venous thrombosis and/or pulmonary embolus.HIGH RISK: Target INR is 2.5-3.5 for patients with mechanical heart valves.CBC W/PLT COUNT & AUTO [id number] 22:51:00 Test Item Value Reference Range Comments WHITE BLOOD CELL COUNT (BEAKER) (test zuww=899) 8.7 K/ L 3.5-10.5 RED BLOOD CELL COUNT (BEAKER) (test fvot=429) 4.77 M/ L 3.93-5.22 HEMOGLOBIN (BEAKER) (test rilr=431) 13.6 GM/DL 11.2-15.7 HEMATOCRIT (BEAKER) (test eaty=806) 45.4 % 34.1-44.9 MEAN CORPUSCULAR VOLUME (BEAKER) (test ipwf=223) 95.2 fL 79.4-94.8 MEAN CORPUSCULAR HEMOGLOBIN (BEAKER) (test 28.5 pg 25.6-32.2 wwac=047) MEAN CORPUSCULAR HEMOGLOBIN CONC (BEAKER) (test 30.0 GM/DL 32.2-35.5 gdiu=186) RED CELL DISTRIBUTION WIDTH (BEAKER) (test 15.2 % 11.7-14.4 otek=066) PLATELET COUNT (BEAKER) (test sxft=763) 267 K/CU MM 150-450 MEAN PLATELET VOLUME (BEAKER) (test cmvx=671) 11.2 fL 9.4-12.3 NUCLEATED RED BLOOD CELLS (BEAKER) (test 0 /100 WBC 0-0 hjlj=845) NEUTROPHILS RELATIVE PERCENT (BEAKER) (test 73 % wprp=276) LYMPHOCYTES RELATIVE PERCENT (BEAKER) (test 16 % nkei=464) MONOCYTES RELATIVE PERCENT (BEAKER) (test 8 % gmfh=731) EOSINOPHILS RELATIVE PERCENT (BEAKER) (test 1 % pbck=656) BASOPHILS RELATIVE PERCENT (BEAKER) (test 1 % llfh=041) NEUTROPHILS ABSOLUTE COUNT (BEAKER) (test 6.38 K/ L 1.56-6.13 kbsi=671) LYMPHOCYTES ABSOLUTE COUNT (BEAKER) (test 1.37 K/ L 1.18-3.74 gkmf=133) MONOCYTES ABSOLUTE COUNT (BEAKER) (test 0.73 K/ L 0.24-0.36 mrck=652) EOSINOPHILS ABSOLUTE COUNT (BEAKER) (test 0.12 K/ L 0.04-0.36 qpsp=700) BASOPHILS ABSOLUTE COUNT (BEAKER) (test 0.08 K/ L 0.01-0.08 tanu=247) IMMATURE GRANULOCYTES-RELATIVE PERCENT (BEAKER) 1 % 0-1 (test vzne=4656) POCT-GLUCOSE [id number] 22:47:00 Test Item Value Reference Range Comments POC-GLUCOSE METER (BEAKER) 196 mg/dL 70-110 TESTED AT [address] (test yxta=0914) [place] [address] POCT-GLUCOSE [id number] 17:34:00 Test Item Value Reference Range Comments POC-GLUCOSE METER (BEAKER) 261 mg/dL 70-110 TESTED AT [address] (test hsyz=6133) [place] [address] POCT-GLUCOSE [id number] 16:52:00 Test Item Value Reference Range Comments POC-GLUCOSE METER (BEAKER) 254 mg/dL 70-110 TESTED AT [address] (test gnek=2828) [place] [address] POCT-GLUCOSE [id number] 12:24:00 Test Item Value Reference Range Comments POC-GLUCOSE METER (BEAKER) 168 mg/dL 70-110 TESTED AT [address] (test vcub=1695) [place] [address] POCT-GLUCOSE [id number] 08:52:00 Test Item Value Reference Range Comments POC-GLUCOSE METER (BEAKER) 139 mg/dL 70-110 TESTED AT [address] (test purp=3880) [place] [address] CT, [id number] 08:32:00S/p aortic-bilateral femoral bypass with right groin [...] MDReport Verified Date/Time: 04/21/2018 08:32:26 Reading Location: [facility] [id number] Consult Reading Room 08: 32 AMPOCT-GLUCOSE [id number] 21:51:00 Test Item Value Reference Range Comments POC-GLUCOSE METER (BEAKER) 132 mg/dL 70-110 TESTED AT [address] (test qekb=4373) [place] [address] POCT-GLUCOSE [id number] 16:54:00 Test Item Value Reference Range Comments POC-GLUCOSE METER (BEAKER) 126 mg/dL 70-110 TESTED AT [address] (test ydyd=6045) [place] [address] POCT-GLUCOSE [id number] 12:41:00 Test Item Value Reference Range Comments POC-GLUCOSE METER (BEAKER) 163 mg/dL 70-110 TESTED AT [address] (test roko=0506) [place] [address] POCT-GLUCOSE [id number] 07:37:00 Test Item Value Reference Range Comments POC-GLUCOSE METER (BEAKER) 96 mg/dL 70-110 TESTED AT [address] (test wcka=1835) [place] [address] BASIC METABOLIC [id number] 06:21:00 Test Item Value Reference Range Comments SODIUM (BEAKER) (test 142 meq/L 136-145 eghs=672) POTASSIUM (BEAKER) (test 3.7 meq/L 3.5-5.1 rnxj=884) CHLORIDE (BEAKER) (test 102 meq/L 98-107 vdbb=534) CO2 (BEAKER) (test 30 meq/L 22-29 jdeu=727) BLOOD UREA NITROGEN 22 mg/dL 7-21 (BEAKER) (test pyes=695) CREATININE (BEAKER) (test 1.05 mg/dL 0.57-1.25 nwfg=559) GLUCOSE RANDOM (BEAKER) 88 mg/dL 70-105 (test fcxx=503) CALCIUM (BEAKER) (test 10.1 mg/dL 8.4-10.2 avks=847) EGFR (BEAKER) (test 50 mL/min/1.73 sq m ESTIMATED GFR IS NOT ueux=3082) ACCURATE CREATININE CLEARANCE IN PREDICTING GLOMERULAR FILTRATION RATE. ESTIMATED GFR IS NOT APPLICABLE FOR DIALYSIS PATIENTS. CBC W/PLT COUNT & AUTO [id number] 05:46:00 Test Item Value Reference Range Comments WHITE BLOOD CELL COUNT (BEAKER) (test geyh=437) 7.0 K/ L 3.5-10.5 RED BLOOD CELL COUNT (BEAKER) (test aebp=272) 5.52 M/ L 3.93-5.22 HEMOGLOBIN (BEAKER) (test ikeq=223) 15.6 GM/DL 11.2-15.7 HEMATOCRIT (BEAKER) (test jjpy=685) 53.3 % 34.1-44.9 MEAN CORPUSCULAR VOLUME (BEAKER) (test sjhv=740) 96.6 fL 79.4-94.8 MEAN CORPUSCULAR HEMOGLOBIN (BEAKER) (test 28.3 pg 25.6-32.2 avwf=176) MEAN CORPUSCULAR HEMOGLOBIN CONC (BEAKER) (test 29.3 GM/DL 32.2-35.5 qeew=066) RED CELL DISTRIBUTION WIDTH (BEAKER) (test 15.3 % 11.7-14.4 oeba=897) PLATELET COUNT (BEAKER) (test wtol=278) 257 K/CU MM 150-450 MEAN PLATELET VOLUME (BEAKER) (test kgxj=479) 11.5 fL 9.4-12.3 NUCLEATED RED BLOOD CELLS (BEAKER) (test 0 /100 WBC 0-0 cjxv=651) NEUTROPHILS RELATIVE PERCENT (BEAKER) (test 58 % daim=011) LYMPHOCYTES RELATIVE PERCENT (BEAKER) (test 25 % sprd=823) MONOCYTES RELATIVE PERCENT (BEAKER) (test 9 % euug=734) EOSINOPHILS RELATIVE PERCENT (BEAKER) (test 5 % iknv=715) BASOPHILS RELATIVE PERCENT (BEAKER) (test 2 % qqic=930) NEUTROPHILS ABSOLUTE COUNT (BEAKER) (test 4.05 K/ L 1.56-6.13 gqeu=308) LYMPHOCYTES ABSOLUTE COUNT (BEAKER) (test 1.76 K/ L 1.18-3.74 jtuw=774) MONOCYTES ABSOLUTE COUNT (BEAKER) (test 0.65 K/ L 0.24-0.36 ugqg=645) EOSINOPHILS ABSOLUTE COUNT (BEAKER) (test 0.33 K/ L 0.04-0.36 utpc=774) BASOPHILS ABSOLUTE COUNT (BEAKER) (test 0.12 K/ L 0.01-0.08 rxzh=321) IMMATURE GRANULOCYTES-RELATIVE PERCENT (BEAKER) 1 % 0-1 (test flaj=9715) POCT-GLUCOSE [id number] 21:11:00 Test Item Value Reference Range Comments POC-GLUCOSE METER (BEAKER) 152 mg/dL 70-110 TESTED AT [address] (test atdc=2268) [facility] [address] POCT-GLUCOSE [id number] 16:41:00 Test Item Value Reference Range Comments POC-GLUCOSE METER (BEAKER) 100 mg/dL 70-110 TESTED AT [address] (test qefg=7246) [facility] [address] POCT-GLUCOSE [id number] 13:05:00 Test Item Value Reference Range Comments POC-GLUCOSE METER (BEAKER) 127 mg/dL 70-110 TESTED AT [address] (test epqp=3457) [facility] [address] TSH/FREE T4 IF [id number] 12:05:00 Test Item Value Reference Range Comments THYROID STIMULATING HORMONE (BEAKER) (test 2.75 uIU/mL 0.35-4.94 kacj=074) [id number] 11:48:00 Test Item Value Reference Range Comments MAGNESIUM (BEAKER) (test bxzb=786) 2.2 mg/dL 1.6-2.6 BASIC METABOLIC [id number] 11:48:00 Test Item Value Reference Range Comments SODIUM (BEAKER) (test 142 meq/L 136-145 zrqq=987) POTASSIUM (BEAKER) (test 3.7 meq/L 3.5-5.1 mawj=280) CHLORIDE (BEAKER) (test 103 meq/L 98-107 paef=343) CO2 (BEAKER) (test 30 meq/L 22-29 qfcf=907) BLOOD UREA NITROGEN 27 mg/dL 7-21 (BEAKER) (test ugdi=533) CREATININE (BEAKER) (test 1.19 mg/dL 0.57-1.25 wcqc=466) GLUCOSE RANDOM (BEAKER) 112 mg/dL 70-105 (test sarv=324) CALCIUM (BEAKER) (test 9.6 mg/dL 8.4-10.2 ytdo=025) EGFR (BEAKER) (test 43 mL/min/1.73 sq m ESTIMATED GFR IS NOT efqf=1471) ACCURATE CREATININE CLEARANCE IN PREDICTING GLOMERULAR FILTRATION RATE. ESTIMATED GFR IS NOT APPLICABLE FOR DIALYSIS PATIENTS. POCT-GLUCOSE [id number] 11:40:00 Test Item Value Reference Range Comments POC-GLUCOSE METER (BEAKER) 118 mg/dL 70-110 TESTED AT [facility] [address] [facility] (test encm=6291) [facility] [address] CBC W/PLT COUNT & AUTO [id number] 11:30:00 Test Item Value Reference Range Comments WHITE BLOOD CELL COUNT (BEAKER) (test tfbj=700) 7.3 K/ L 3.5-10.5 RED BLOOD CELL COUNT (BEAKER) (test apuz=177) 4.68 M/ L 3.93-5.22 HEMOGLOBIN (BEAKER) (test mfqt=951) 13.4 GM/DL 11.2-15.7 HEMATOCRIT (BEAKER) (test xwdh=436) 44.7 % 34.1-44.9 MEAN CORPUSCULAR VOLUME (BEAKER) (test glte=623) 95.5 fL 79.4-94.8 MEAN CORPUSCULAR HEMOGLOBIN (BEAKER) (test 28.6 pg 25.6-32.2 npvw=869) MEAN CORPUSCULAR HEMOGLOBIN CONC (BEAKER) (test 30.0 GM/DL 32.2-35.5 ppmk=540) RED CELL DISTRIBUTION WIDTH (BEAKER) (test 15.5 % 11.7-14.4 vtdk=117) PLATELET COUNT (BEAKER) (test djej=856) 260 K/CU MM 150-450 MEAN PLATELET VOLUME (BEAKER) (test iesc=857) 10.7 fL 9.4-12.3 NUCLEATED RED BLOOD CELLS (BEAKER) (test 0 /100 WBC 0-0 voiz=928) NEUTROPHILS RELATIVE PERCENT (BEAKER) (test 70 % nyuf=089) LYMPHOCYTES RELATIVE PERCENT (BEAKER) (test 19 % xgox=673) MONOCYTES RELATIVE PERCENT (BEAKER) (test 8 % qbxc=986) EOSINOPHILS RELATIVE PERCENT (BEAKER) (test 2 % uozm=453) BASOPHILS RELATIVE PERCENT (BEAKER) (test 1 % gfdb=292) NEUTROPHILS ABSOLUTE COUNT (BEAKER) (test 5.11 K/ L 1.56-6.13 oxqq=213) LYMPHOCYTES ABSOLUTE COUNT (BEAKER) (test 1.37 K/ L 1.18-3.74 xjbw=095) MONOCYTES ABSOLUTE COUNT (BEAKER) (test 0.59 K/ L 0.24-0.36 szlo=828) EOSINOPHILS ABSOLUTE COUNT (BEAKER) (test 0.17 K/ L 0.04-0.36 ixcj=012) BASOPHILS ABSOLUTE COUNT (BEAKER) (test 0.07 K/ L 0.01-0.08 ksdp=605) IMMATURE GRANULOCYTES-RELATIVE PERCENT (BEAKER) 0 % 0-1 (test mceo=9835) ANAEROBIC [id number] 02:34:00 Test Item Value Reference Range Comments CULTURE (BEAKER) (test rwqo=4373) No anaerobes isolated SURGICALLY OBTAINED CULTURE + GRAM [id number] 14:05:00 Test Item Value Reference Range Comments CULTURE (BEAKER) (test mpmc=9163) No growth GRAM STAIN RESULT (BEAKER) (test 1+ WBCs oueo=1887) GRAM STAIN RESULT (BEAKER) (test No organisms seen jnbz=58796) POCT-GLUCOSE [id number] 12:39:00 Test Item Value Reference Range Comments POC-GLUCOSE METER (BEAKER) 131 mg/dL 70-110 TESTED AT [address] (test nhwz=0636) [facility] [address] POCT-GLUCOSE [id number] 08:01:00 Test Item Value Reference Range Comments POC-GLUCOSE METER (BEAKER) 106 mg/dL 70-110 TESTED AT [address] (test jvgt=8686) [facility] [address] BASIC METABOLIC [id number] 06:21:00 Test Item Value Reference Range Comments SODIUM (BEAKER) (test 139 meq/L 136-145 knqe=968) POTASSIUM (BEAKER) (test 3.6 meq/L 3.5-5.1 enwp=661) CHLORIDE (BEAKER) (test 102 meq/L 98-107 ysrc=044) CO2 (BEAKER) (test 27 meq/L 22-29 wcyt=659) BLOOD UREA NITROGEN 13 mg/dL 7-21 (BEAKER) (test dknb=053) CREATININE (BEAKER) (test 0.70 mg/dL 0.57-1.25 izcc=540) GLUCOSE RANDOM (BEAKER) 90 mg/dL 70-105 (test thks=632) CALCIUM (BEAKER) (test 9.2 mg/dL 8.4-10.2 nlst=018) EGFR (BEAKER) (test 80 mL/min/1.73 sq m ESTIMATED GFR IS NOT aihd=7568) ACCURATE CREATININE CLEARANCE IN PREDICTING GLOMERULAR FILTRATION RATE. ESTIMATED GFR IS NOT APPLICABLE FOR DIALYSIS PATIENTS. CBC W/PLT COUNT & AUTO [id number] 05:48:00 Test Item Value Reference Range Comments WHITE BLOOD CELL COUNT (BEAKER) (test eyap=418) 9.7 K/ L 3.5-10.5 RED BLOOD CELL COUNT (BEAKER) (test bkgk=942) 3.69 M/ L 3.93-5.22 HEMOGLOBIN (BEAKER) (test oqea=486) 10.5 GM/DL 11.2-15.7 HEMATOCRIT (BEAKER) (test bhhp=028) 35.2 % 34.1-44.9 MEAN CORPUSCULAR VOLUME (BEAKER) (test jyyz=931) 95.4 fL 79.4-94.8 MEAN CORPUSCULAR HEMOGLOBIN (BEAKER) (test 28.5 pg 25.6-32.2 huqz=238) MEAN CORPUSCULAR HEMOGLOBIN CONC (BEAKER) (test 29.8 GM/DL 32.2-35.5 ngpk=119) RED CELL DISTRIBUTION WIDTH (BEAKER) (test 14.6 % 11.7-14.4 tsnw=115) PLATELET COUNT (BEAKER) (test rnnp=153) 321 K/CU MM 150-450 MEAN PLATELET VOLUME (BEAKER) (test yuyc=685) 10.6 fL 9.4-12.3 NUCLEATED RED BLOOD CELLS (BEAKER) (test 0 /100 WBC 0-0 ebce=007) NEUTROPHILS RELATIVE PERCENT (BEAKER) (test 73 % uqro=680) LYMPHOCYTES RELATIVE PERCENT (BEAKER) (test 15 % ufgg=976) MONOCYTES RELATIVE PERCENT (BEAKER) (test 7 % rfev=357) EOSINOPHILS RELATIVE PERCENT (BEAKER) (test 3 % hpja=526) BASOPHILS RELATIVE PERCENT (BEAKER) (test 1 % hmhd=792) NEUTROPHILS ABSOLUTE COUNT (BEAKER) (test 7.06 K/ L 1.56-6.13 ywcu=930) LYMPHOCYTES ABSOLUTE COUNT (BEAKER) (test 1.42 K/ L 1.18-3.74 odny=495) MONOCYTES ABSOLUTE COUNT (BEAKER) (test 0.71 K/ L 0.24-0.36 crvd=561) EOSINOPHILS ABSOLUTE COUNT (BEAKER) (test 0.27 K/ L 0.04-0.36 ewbc=882) BASOPHILS ABSOLUTE COUNT (BEAKER) (test 0.05 K/ L 0.01-0.08 nyck=383) IMMATURE GRANULOCYTES-RELATIVE PERCENT (BEAKER) 2 % 0-1 (test gtjq=4951) POCT-GLUCOSE [id number] 21:47:00 Test Item Value Reference Range Comments POC-GLUCOSE METER (BEAKER) 161 mg/dL 70-110 TESTED AT [address] (test khvj=5929) [place] [address] POCT-GLUCOSE [id number] 17:08:00 Test Item Value Reference Range Comments POC-GLUCOSE METER (BEAKER) 189 mg/dL 70-110 TESTED AT [address] (test cklz=7564) [place] [address] POCT-GLUCOSE [id number] 11:12:00 Test Item Value Reference Range Comments POC-GLUCOSE METER (BEAKER) 197 mg/dL 70-110 TESTED AT [address] (test bkxs=6638) [place] [address] POCT-GLUCOSE [id number] 07:35:00 Test Item Value Reference Range Comments POC-GLUCOSE METER (BEAKER) 113 mg/dL 70-110 TESTED AT [address] (test skay=3587) [place] [address] BASIC METABOLIC [id number] 06:23:00 Test Item Value Reference Range Comments SODIUM (BEAKER) (test 137 meq/L 136-145 pohl=782) POTASSIUM (BEAKER) (test 4.3 meq/L 3.5-5.1 qzsw=103) CHLORIDE (BEAKER) (test 101 meq/L 98-107 hptn=560) CO2 (BEAKER) (test 26 meq/L 22-29 ajmr=444) BLOOD UREA NITROGEN 12 mg/dL 7-21 (BEAKER) (test jclr=451) CREATININE (BEAKER) (test 0.70 mg/dL 0.57-1.25 wwpc=507) GLUCOSE RANDOM (BEAKER) 91 mg/dL 70-105 (test frtb=422) CALCIUM (BEAKER) (test 9.3 mg/dL 8.4-10.2 bcjt=202) EGFR (BEAKER) (test 80 mL/min/1.73 sq m ESTIMATED GFR IS NOT obdw=6276) ACCURATE CREATININE CLEARANCE IN PREDICTING GLOMERULAR FILTRATION RATE. ESTIMATED GFR IS NOT APPLICABLE FOR DIALYSIS PATIENTS. CBC W/PLT COUNT & AUTO [id number] 06:12:00 Test Item Value Reference Range Comments WHITE BLOOD CELL COUNT (BEAKER) (test mflr=589) 11.9 K/ L 3.5-10.5 RED BLOOD CELL COUNT (BEAKER) (test cufb=929) 3.65 M/ L 3.93-5.22 HEMOGLOBIN (BEAKER) (test cwbe=936) 10.7 GM/DL 11.2-15.7 HEMATOCRIT (BEAKER) (test gzyx=321) 35.3 % 34.1-44.9 MEAN CORPUSCULAR VOLUME (BEAKER) (test lzzr=913) 96.7 fL 79.4-94.8 MEAN CORPUSCULAR HEMOGLOBIN (BEAKER) (test 29.3 pg 25.6-32.2 atjx=540) MEAN CORPUSCULAR HEMOGLOBIN CONC (BEAKER) (test 30.3 GM/DL 32.2-35.5 ydel=131) RED CELL DISTRIBUTION WIDTH (BEAKER) (test 14.6 % 11.7-14.4 skiw=217) PLATELET COUNT (BEAKER) (test ocjc=320) 277 K/CU MM 150-450 MEAN PLATELET VOLUME (BEAKER) (test svoa=406) 10.8 fL 9.4-12.3 NUCLEATED RED BLOOD CELLS (BEAKER) (test 0 /100 WBC 0-0 dmic=916) NEUTROPHILS RELATIVE PERCENT (BEAKER) (test 77 % ybuj=480) LYMPHOCYTES RELATIVE PERCENT (BEAKER) (test 10 % bfyx=783) MONOCYTES RELATIVE PERCENT (BEAKER) (test 7 % xozp=352) EOSINOPHILS RELATIVE PERCENT (BEAKER) (test 2 % fsvv=121) BASOPHILS RELATIVE PERCENT (BEAKER) (test 1 % yxls=709) NEUTROPHILS ABSOLUTE COUNT (BEAKER) (test 9.13 K/ L 1.56-6.13 qjhi=891) LYMPHOCYTES ABSOLUTE COUNT (BEAKER) (test 1.19 K/ L 1.18-3.74 dvrf=020) MONOCYTES ABSOLUTE COUNT (BEAKER) (test 0.87 K/ L 0.24-0.36 eswz=913) EOSINOPHILS ABSOLUTE COUNT (BEAKER) (test 0.26 K/ L 0.04-0.36 dmjo=985) BASOPHILS ABSOLUTE COUNT (BEAKER) (test 0.06 K/ L 0.01-0.08 lyrq=927) IMMATURE GRANULOCYTES-RELATIVE PERCENT (BEAKER) 3 % 0-1 (test hewn=9587) POCT-GLUCOSE [id number] 21:04:00 Test Item Value Reference Range Comments POC-GLUCOSE METER (BEAKER) 143 mg/dL 70-110 TESTED AT [address] (test wyjz=7816) [place] [address] POCT-GLUCOSE [id number] 17:04:00 Test Item Value Reference Range Comments POC-GLUCOSE METER (BEAKER) 182 mg/dL 70-110 TESTED AT [address] (test myfz=0885) [place] [address] SPIN/CONCENTRATION [id number] 15:07:00 Test Item Value Reference Range Comments CONCENTRATION CHARGED (BEAKER) (test xnmn=5669) Done POCT-GLUCOSE [id number] 11:38:00 Test Item Value Reference Range Comments POC-GLUCOSE METER (BEAKER) 141 mg/dL 70-110 TESTED AT [address] (test hntj=6617) [place] [address] POCT-GLUCOSE [id number] 08:13:00 Test Item Value Reference Range Comments POC-GLUCOSE METER (BEAKER) 122 mg/dL 70-110 TESTED AT [address] (test cfqj=0652) [place] [address] BASIC METABOLIC [id number] 05:20:00 Test Item Value Reference Range Comments SODIUM (BEAKER) (test 138 meq/L 136-145 qcqi=966) POTASSIUM (BEAKER) (test 3.8 meq/L 3.5-5.1 hfjh=090) CHLORIDE (BEAKER) (test 102 meq/L 98-107 lyfc=348) CO2 (BEAKER) (test 28 meq/L 22-29 nmml=269) BLOOD UREA NITROGEN 12 mg/dL 7-21 (BEAKER) (test diuo=626) CREATININE (BEAKER) (test 0.72 mg/dL 0.57-1.25 ggry=734) GLUCOSE RANDOM (BEAKER) 104 mg/dL 70-105 (test gamy=074) CALCIUM (BEAKER) (test 8.5 mg/dL 8.4-10.2 dsmq=417) EGFR (BEAKER) (test 77 mL/min/1.73 sq m ESTIMATED GFR IS NOT uaxe=6443) ACCURATE CREATININE CLEARANCE IN PREDICTING GLOMERULAR FILTRATION RATE. ESTIMATED GFR IS NOT APPLICABLE FOR DIALYSIS PATIENTS. CBC W/PLT COUNT & AUTO [id number] 04:58:00 Test Item Value Reference Range Comments WHITE BLOOD CELL COUNT (BEAKER) (test tyda=325) 11.5 K/ L 3.5-10.5 RED BLOOD CELL COUNT (BEAKER) (test pvjj=005) 3.63 M/ L 3.93-5.22 HEMOGLOBIN (BEAKER) (test vurd=290) 10.3 GM/DL 11.2-15.7 HEMATOCRIT (BEAKER) (test nfwc=187) 34.4 % 34.1-44.9 MEAN CORPUSCULAR VOLUME (BEAKER) (test qbhp=060) 94.8 fL 79.4-94.8 MEAN CORPUSCULAR HEMOGLOBIN (BEAKER) (test 28.4 pg 25.6-32.2 cpmc=460) MEAN CORPUSCULAR HEMOGLOBIN CONC (BEAKER) (test 29.9 GM/DL 32.2-35.5 acts=864) RED CELL DISTRIBUTION WIDTH (BEAKER) (test 14.8 % 11.7-14.4 cnpv=039) PLATELET COUNT (BEAKER) (test tbdd=685) 266 K/CU MM 150-450 MEAN PLATELET VOLUME (BEAKER) (test htfg=724) 10.8 fL 9.4-12.3 NUCLEATED RED BLOOD CELLS (BEAKER) (test 0 /100 WBC 0-0 tiaj=995) NEUTROPHILS RELATIVE PERCENT (BEAKER) (test 79 % vtpt=335) LYMPHOCYTES RELATIVE PERCENT (BEAKER) (test 8 % mfsh=253) MONOCYTES RELATIVE PERCENT (BEAKER) (test 7 % vifj=453) EOSINOPHILS RELATIVE PERCENT (BEAKER) (test 2 % moyo=609) BASOPHILS RELATIVE PERCENT (BEAKER) (test 1 % gpza=144) NEUTROPHILS ABSOLUTE COUNT (BEAKER) (test 9.09 K/ L 1.56-6.13 bffx=257) LYMPHOCYTES ABSOLUTE COUNT (BEAKER) (test 0.90 K/ L 1.18-3.74 ntve=463) MONOCYTES ABSOLUTE COUNT (BEAKER) (test 0.76 K/ L 0.24-0.36 rtrr=801) EOSINOPHILS ABSOLUTE COUNT (BEAKER) (test 0.27 K/ L 0.04-0.36 mueg=178) BASOPHILS ABSOLUTE COUNT (BEAKER) (test 0.08 K/ L 0.01-0.08 zgew=655) IMMATURE GRANULOCYTES-RELATIVE PERCENT (BEAKER) 4 % 0-1 (test ugbm=7436) POCT-GLUCOSE [id number] 21:18:00 Test Item Value Reference Range Comments POC-GLUCOSE METER (BEAKER) 147 mg/dL 70-110 TESTED AT [facility] [address] [place] [address] (test gzfe=9038) [facility] [address] TISSUE [id number] 15:55:00Surgical Pathology Report Case: [id number] Authorizing Provider: Billy Mcmanus, Collected: 03/18/2018 1046 OrderingLocation: [facility] Received: 2017 1131 PERIOPERATIVE SERVICES Pathologist: Chris Caraballo MD Specimen: Plaque, AORTIC PLAQUE AORTA, ATHERECTOMY:CALCIFIC ATHEROSCLEROTIC PLAQUE Signing Pathologist Direct Phone Line: [phone] by Chris Caraballo MD on 03/25/2018 at 3:55 [id number]; [id number] plaque Received in saline labeled "plaque", description "aortic plaque" is a 4.5 x 3.5 x 0.6 cm aggregate of felix-white to yellow-panchal, rubbery, calcified fibrous tissue.Account Representative sections are submitted in cassette A1 for decalcification. DB/ew PerformedPOTASSIUM-STAT [id number] 11:04:00 Test Item Value Reference Range Comments POTASSIUM (BEAKER) (test mowe=071) 3.0 meq/L 3.6-5.5 HGB/HCT (H&H) - STAT [id number] 11:04:00 Test Item Value Reference Range Comments HEMOGLOBIN (BEAKER) (test owfl=645) 11.2 g/dL 12.0-15.0 HEMATOCRIT (BEAKER) (test pkzh=910) 33.0 % 36.0-45.0 GLUCOSE-STAT [id number] 11:04:00 Test Item Value Reference Range Comments GLUCOSE RANDOM (BEAKER) (test hict=545) 116 mg/dL 70-110 POCT-GLUCOSE [id number] 07:01:00 Test Item Value Reference Range Comments POC-GLUCOSE METER (BEAKER) 91 mg/dL 70-110 TESTED AT [facility] [address] (test dgxb=6189) [facility] [address] BASIC METABOLIC [id number] 05:12:00 Test Item Value Reference Range Comments SODIUM (BEAKER) (test 140 meq/L 136-145 keuy=358) POTASSIUM (BEAKER) (test 4.0 meq/L 3.5-5.1 ryei=701) CHLORIDE (BEAKER) (test 100 meq/L 98-107 csuz=327) CO2 (BEAKER) (test 34 meq/L 22-29 odcy=825) BLOOD UREA NITROGEN 14 mg/dL 7-21 (BEAKER) (test jpyl=626) CREATININE (BEAKER) (test 0.75 mg/dL 0.57-1.25 ufig=651) GLUCOSE RANDOM (BEAKER) 100 mg/dL 70-105 (test jgzv=741) CALCIUM (BEAKER) (test 9.2 mg/dL 8.4-10.2 rdwe=785) EGFR (BEAKER) (test 74 mL/min/1.73 sq m ESTIMATED GFR IS NOT gsnp=9818) ACCURATE CREATININE CLEARANCE IN PREDICTING GLOMERULAR FILTRATION RATE. ESTIMATED GFR IS NOT APPLICABLE FOR DIALYSIS PATIENTS. CBC W/PLT COUNT & AUTO [id number] 04:36:00 Test Item Value Reference Range Comments WHITE BLOOD CELL COUNT (BEAKER) (test rpep=537) 11.1 K/ L 3.5-10.5 RED BLOOD CELL COUNT (BEAKER) (test xocz=050) 3.57 M/ L 3.93-5.22 HEMOGLOBIN (BEAKER) (test ocwx=085) 10.3 GM/DL 11.2-15.7 HEMATOCRIT (BEAKER) (test idvm=251) 33.8 % 34.1-44.9 MEAN CORPUSCULAR VOLUME (BEAKER) (test jhlk=813) 94.7 fL 79.4-94.8 MEAN CORPUSCULAR HEMOGLOBIN (BEAKER) (test 28.9 pg 25.6-32.2 owms=854) MEAN CORPUSCULAR HEMOGLOBIN CONC (BEAKER) (test 30.5 GM/DL 32.2-35.5 cqwr=410) RED CELL DISTRIBUTION WIDTH (BEAKER) (test 14.6 % 11.7-14.4 fsym=215) PLATELET COUNT (BEAKER) (test grrt=066) 244 K/CU MM 150-450 MEAN PLATELET VOLUME (BEAKER) (test tfxp=608) 10.7 fL 9.4-12.3 NUCLEATED RED BLOOD CELLS (BEAKER) (test 1 /100 WBC 0-0 pcis=387) NEUTROPHILS RELATIVE PERCENT (BEAKER) (test 72 % qlgb=553) LYMPHOCYTES RELATIVE PERCENT (BEAKER) (test 13 % swxj=116) MONOCYTES RELATIVE PERCENT (BEAKER) (test 9 % eyzg=129) EOSINOPHILS RELATIVE PERCENT (BEAKER) (test 2 % jirs=393) BASOPHILS RELATIVE PERCENT (BEAKER) (test 1 % nsbf=113) NEUTROPHILS ABSOLUTE COUNT (BEAKER) (test 7.91 K/ L 1.56-6.13 dctv=027) LYMPHOCYTES ABSOLUTE COUNT (BEAKER) (test 1.45 K/ L 1.18-3.74 tpzz=376) MONOCYTES ABSOLUTE COUNT (BEAKER) (test 1.00 K/ L 0.24-0.36 etlf=283) EOSINOPHILS ABSOLUTE COUNT (BEAKER) (test 0.21 K/ L 0.04-0.36 gtyr=781) BASOPHILS ABSOLUTE COUNT (BEAKER) (test 0.07 K/ L 0.01-0.08 gfpr=642) IMMATURE GRANULOCYTES-RELATIVE PERCENT (BEAKER) 4 % 0-1 (test ztpy=1195) POCT-GLUCOSE [id number] 21:06:00 Test Item Value Reference Range Comments POC-GLUCOSE METER (BEAKER) 152 mg/dL 70-110 TESTED AT [address] (test bvbh=2307) [facility] [address] POCT-GLUCOSE [id number] 17:43:00 Test Item Value Reference Range Comments POC-GLUCOSE METER (BEAKER) 155 mg/dL 70-110 TESTED AT [address] (test gers=4501) [facility] [address] POCT-GLUCOSE [id number] 12:30:00 Test Item Value Reference Range Comments POC-GLUCOSE METER (BEAKER) 167 mg/dL 70-110 TESTED AT [address] (test zygs=4552) [facility] [address] POCT-GLUCOSE [id number] 07:13:00 Test Item Value Reference Range Comments POC-GLUCOSE METER (BEAKER) 111 mg/dL 70-110 TESTED AT [address] (test jwsa=2933) [facility] [address] BASIC METABOLIC [id number] 05:33:00 Test Item Value Reference Range Comments SODIUM (BEAKER) (test 139 meq/L 136-145 vqiu=951) POTASSIUM (BEAKER) (test 3.9 meq/L 3.5-5.1 ezms=982) CHLORIDE (BEAKER) (test 102 meq/L 98-107 fzrv=078) CO2 (BEAKER) (test 29 meq/L 22-29 ywva=302) BLOOD UREA NITROGEN 17 mg/dL 7-21 (BEAKER) (test znzq=445) CREATININE (BEAKER) (test 0.72 mg/dL 0.57-1.25 onur=195) GLUCOSE RANDOM (BEAKER) 114 mg/dL 70-105 (test rnax=561) CALCIUM (BEAKER) (test 8.8 mg/dL 8.4-10.2 zzhs=891) EGFR (BEAKER) (test 77 mL/min/1.73 sq m ESTIMATED GFR IS NOT ldbh=7746) ACCURATE CREATININE CLEARANCE IN PREDICTING GLOMERULAR FILTRATION RATE. ESTIMATED GFR IS NOT APPLICABLE FOR DIALYSIS PATIENTS. CBC W/PLT COUNT & AUTO [id number] 04:58:00 Test Item Value Reference Range Comments WHITE BLOOD CELL COUNT (BEAKER) (test kpuf=376) 9.9 K/ L 3.5-10.5 RED BLOOD CELL COUNT (BEAKER) (test veml=124) 3.54 M/ L 3.93-5.22 HEMOGLOBIN (BEAKER) (test xjvj=057) 10.2 GM/DL 11.2-15.7 HEMATOCRIT (BEAKER) (test orxa=131) 33.7 % 34.1-44.9 MEAN CORPUSCULAR VOLUME (BEAKER) (test ifeg=213) 95.2 fL 79.4-94.8 MEAN CORPUSCULAR HEMOGLOBIN (BEAKER) (test 28.8 pg 25.6-32.2 oicn=841) MEAN CORPUSCULAR HEMOGLOBIN CONC (BEAKER) (test 30.3 GM/DL 32.2-35.5 rhdc=017) RED CELL DISTRIBUTION WIDTH (BEAKER) (test 14.4 % 11.7-14.4 cxnl=394) PLATELET COUNT (BEAKER) (test dmxc=314) 226 K/CU MM 150-450 MEAN PLATELET VOLUME (BEAKER) (test yglx=919) 11.2 fL 9.4-12.3 NUCLEATED RED BLOOD CELLS (BEAKER) (test 0 /100 WBC 0-0 kzyg=826) NEUTROPHILS RELATIVE PERCENT (BEAKER) (test 73 % gcuz=474) LYMPHOCYTES RELATIVE PERCENT (BEAKER) (test 14 % axos=564) MONOCYTES RELATIVE PERCENT (BEAKER) (test 9 % wono=684) EOSINOPHILS RELATIVE PERCENT (BEAKER) (test 2 % nuos=824) BASOPHILS RELATIVE PERCENT (BEAKER) (test 1 % eloj=226) NEUTROPHILS ABSOLUTE COUNT (BEAKER) (test 7.15 K/ L 1.56-6.13 ipjh=107) LYMPHOCYTES ABSOLUTE COUNT (BEAKER) (test 1.36 K/ L 1.18-3.74 kjfq=621) MONOCYTES ABSOLUTE COUNT (BEAKER) (test 0.87 K/ L 0.24-0.36 byoq=615) EOSINOPHILS ABSOLUTE COUNT (BEAKER) (test 0.18 K/ L 0.04-0.36 ckqo=670) BASOPHILS ABSOLUTE COUNT (BEAKER) (test 0.07 K/ L 0.01-0.08 dsgc=925) IMMATURE GRANULOCYTES-RELATIVE PERCENT (BEAKER) 2 % 0-1 (test ehgz=7370) POCT-GLUCOSE [id number] 20:59:00 Test Item Value Reference Range Comments POC-GLUCOSE METER (BEAKER) 178 mg/dL 70-110 TESTED AT [address] (test fyyn=9945) [place] [id number] POCT-GLUCOSE [id number] 18:18:00 Test Item Value Reference Range Comments POC-GLUCOSE METER (BEAKER) 137 mg/dL 70-110 TESTED AT [address] (test dfkh=1642) [place] [address] RAD, SPINE, LUMBAR, COMPLETE (MIN 4 VIEWS)2018-03-23 [...] No definite acute abnormality. Signed: Jomar Gillette [facility] Verified Date/Time: 03/23/2018 16:25:16 Reading Location: [facility] [id number] Ortho Consult Reading Room SPUTUM CULTURE + GRAM [id number] 10:41:00 Test Item Value Reference Range Comments CULTURE (BEAKER) (test 3+ Normal respiratory anu bwwu=8391) present GRAM STAIN RESULT (BEAKER) <1+ WBCs (test mstj=3453) GRAM STAIN RESULT (BEAKER) 10-15 epithelial cells (test smvu=04418) GRAM STAIN RESULT (BEAKER) 1+ gram positive cocci in pairs (test dwfk=42218) POCT-GLUCOSE [id number] 08:09:00 Test Item Value Reference Range Comments POC-GLUCOSE METER (BEAKER) 94 mg/dL 70-110 TESTED AT [address] (test btfa=2464) [place] [id number] BASIC METABOLIC [id number] 06:23:00 Test Item Value Reference Range Comments SODIUM (BEAKER) (test 142 meq/L 136-145 psur=120) POTASSIUM (BEAKER) (test 3.3 meq/L 3.5-5.1 teeh=140) CHLORIDE (BEAKER) (test 102 meq/L 98-107 ypbc=733) CO2 (BEAKER) (test 27 meq/L 22-29 zffp=510) BLOOD UREA NITROGEN 17 mg/dL 7-21 (BEAKER) (test prva=733) CREATININE (BEAKER) (test 0.69 mg/dL 0.57-1.25 tfpc=376) GLUCOSE RANDOM (BEAKER) 81 mg/dL 70-105 (test prep=052) CALCIUM (BEAKER) (test 9.4 mg/dL 8.4-10.2 rlpp=095) EGFR (BEAKER) (test 81 mL/min/1.73 sq m ESTIMATED GFR IS NOT ispg=2785) ACCURATE CREATININE CLEARANCE IN PREDICTING GLOMERULAR FILTRATION RATE. ESTIMATED GFR IS NOT APPLICABLE FOR DIALYSIS PATIENTS. CBC W/PLT COUNT & AUTO [id number] 06:00:00 Test Item Value Reference Range Comments WHITE BLOOD CELL COUNT (BEAKER) (test pffi=604) 8.2 K/ L 3.5-10.5 RED BLOOD CELL COUNT (BEAKER) (test vgqd=273) 4.03 M/ L 3.93-5.22 HEMOGLOBIN (BEAKER) (test yxjy=634) 11.5 GM/DL 11.2-15.7 HEMATOCRIT (BEAKER) (test wchk=779) 38.6 % 34.1-44.9 MEAN CORPUSCULAR VOLUME (BEAKER) (test nbwv=052) 95.8 fL 79.4-94.8 MEAN CORPUSCULAR HEMOGLOBIN (BEAKER) (test 28.5 pg 25.6-32.2 bohq=230) MEAN CORPUSCULAR HEMOGLOBIN CONC (BEAKER) (test 29.8 GM/DL 32.2-35.5 cfnk=031) RED CELL DISTRIBUTION WIDTH (BEAKER) (test 14.5 % 11.7-14.4 vseq=935) PLATELET COUNT (BEAKER) (test ibnv=117) 214 K/CU MM 150-450 MEAN PLATELET VOLUME (BEAKER) (test mwki=276) 11.5 fL 9.4-12.3 NUCLEATED RED BLOOD CELLS (BEAKER) (test 0 /100 WBC 0-0 nxnd=365) NEUTROPHILS RELATIVE PERCENT (BEAKER) (test 71 % rxqy=580) LYMPHOCYTES RELATIVE PERCENT (BEAKER) (test 17 % sqty=027) MONOCYTES RELATIVE PERCENT (BEAKER) (test 8 % bvqe=179) EOSINOPHILS RELATIVE PERCENT (BEAKER) (test 3 % gqyx=931) BASOPHILS RELATIVE PERCENT (BEAKER) (test 1 % xbzp=937) NEUTROPHILS ABSOLUTE COUNT (BEAKER) (test 5.84 K/ L 1.56-6.13 wndc=518) LYMPHOCYTES ABSOLUTE COUNT (BEAKER) (test 1.36 K/ L 1.18-3.74 vlao=416) MONOCYTES ABSOLUTE COUNT (BEAKER) (test 0.63 K/ L 0.24-0.36 zlhk=040) EOSINOPHILS ABSOLUTE COUNT (BEAKER) (test 0.24 K/ L 0.04-0.36 tdnt=382) BASOPHILS ABSOLUTE COUNT (BEAKER) (test 0.07 K/ L 0.01-0.08 xgie=686) IMMATURE GRANULOCYTES-RELATIVE PERCENT (BEAKER) 1 % 0-1 (test kiut=2221) POCT-GLUCOSE [id number] 21:32:00 Test Item Value Reference Range Comments POC-GLUCOSE METER (BEAKER) 238 mg/dL 70-110 TESTED AT [address] (test ctka=9349) [place] [address] POCT-GLUCOSE [id number] 12:11:00 Test Item Value Reference Range Comments POC-GLUCOSE METER (BEAKER) 102 mg/dL 70-110 TESTED AT [address] (test kpad=1451) [place] [address] POCT-GLUCOSE [id number] 07:49:00 Test Item Value Reference Range Comments POC-GLUCOSE METER (BEAKER) 93 mg/dL 70-110 TESTED AT [address] (test yfch=4186) [place] [address] BASIC METABOLIC [id number] 06:14:00 Test Item Value Reference Range Comments SODIUM (BEAKER) (test 142 meq/L 136-145 ihzx=661) POTASSIUM (BEAKER) (test 4.6 meq/L 3.5-5.1 kwhw=824) CHLORIDE (BEAKER) (test 103 meq/L 98-107 jxwb=289) CO2 (BEAKER) (test 32 meq/L 22-29 kkgh=458) BLOOD UREA NITROGEN 18 mg/dL 7-21 (BEAKER) (test eavj=516) CREATININE (BEAKER) (test 0.73 mg/dL 0.57-1.25 ogya=788) GLUCOSE RANDOM (BEAKER) 78 mg/dL 70-105 (test suid=522) CALCIUM (BEAKER) (test 9.3 mg/dL 8.4-10.2 krvs=849) EGFR (BEAKER) (test 76 mL/min/1.73 sq m ESTIMATED GFR IS NOT rbmm=8699) ACCURATE CREATININE CLEARANCE IN PREDICTING GLOMERULAR FILTRATION RATE. ESTIMATED GFR IS NOT APPLICABLE FOR DIALYSIS PATIENTS. CBC W/PLT COUNT & AUTO [id number] 05:44:00 Test Item Value Reference Range Comments WHITE BLOOD CELL COUNT (BEAKER) (test dpnw=651) 9.0 K/ L 3.5-10.5 RED BLOOD CELL COUNT (BEAKER) (test xxmv=406) 3.81 M/ L 3.93-5.22 HEMOGLOBIN (BEAKER) (test azyd=491) 10.8 GM/DL 11.2-15.7 HEMATOCRIT (BEAKER) (test hgfq=052) 36.8 % 34.1-44.9 MEAN CORPUSCULAR VOLUME (BEAKER) (test eknv=449) 96.6 fL 79.4-94.8 MEAN CORPUSCULAR HEMOGLOBIN (BEAKER) (test 28.3 pg 25.6-32.2 hxla=298) MEAN CORPUSCULAR HEMOGLOBIN CONC (BEAKER) (test 29.3 GM/DL 32.2-35.5 cfhu=926) RED CELL DISTRIBUTION WIDTH (BEAKER) (test 14.7 % 11.7-14.4 kvur=140) PLATELET COUNT (BEAKER) (test liow=091) 178 K/CU MM 150-450 MEAN PLATELET VOLUME (BEAKER) (test hver=656) 11.6 fL 9.4-12.3 NUCLEATED RED BLOOD CELLS (BEAKER) (test 0 /100 WBC 0-0 kfoz=555) NEUTROPHILS RELATIVE PERCENT (BEAKER) (test 75 % anan=800) LYMPHOCYTES RELATIVE PERCENT (BEAKER) (test 14 % rpvm=159) MONOCYTES RELATIVE PERCENT (BEAKER) (test 7 % deut=718) EOSINOPHILS RELATIVE PERCENT (BEAKER) (test 3 % zdbm=298) BASOPHILS RELATIVE PERCENT (BEAKER) (test 1 % skbz=640) NEUTROPHILS ABSOLUTE COUNT (BEAKER) (test 6.69 K/ L 1.56-6.13 puqa=324) LYMPHOCYTES ABSOLUTE COUNT (BEAKER) (test 1.29 K/ L 1.18-3.74 ydom=372) MONOCYTES ABSOLUTE COUNT (BEAKER) (test 0.65 K/ L 0.24-0.36 upyo=492) EOSINOPHILS ABSOLUTE COUNT (BEAKER) (test 0.22 K/ L 0.04-0.36 ryca=405) BASOPHILS ABSOLUTE COUNT (BEAKER) (test 0.05 K/ L 0.01-0.08 phmh=725) IMMATURE GRANULOCYTES-RELATIVE PERCENT (BEAKER) 1 % 0-1 (test nhjg=8110) POCT-GLUCOSE [id number] 21:06:00 Test Item Value Reference Range Comments POC-GLUCOSE METER (BEAKER) 116 mg/dL 70-110 TESTED AT [address] (test scpi=4046) [place] [id number] POCT-GLUCOSE [id number] 16:33:00 Test Item Value Reference Range Comments POC-GLUCOSE METER (BEAKER) 138 mg/dL 70-110 TESTED AT [address] (test vqvw=5970) [facility] [address] POCT-GLUCOSE [id number] 12:15:00 Test Item Value Reference Range Comments POC-GLUCOSE METER (BEAKER) 150 mg/dL 70-110 TESTED AT [address] (test ksru=8755) [facility] [address] POCT-GLUCOSE [id number] 09:03:00 Test Item Value Reference Range Comments POC-GLUCOSE METER (BEAKER) 101 mg/dL 70-110 TESTED AT [address] (test wblq=3964) [place] [address] RAD, CHEST, 1 VIEW, NON [id number] 08:03:00Reason for exam:->post cardiovascular procedureShould this be [...] or aspiration cannot be excluded. Signed: Freya [place]ci[place]port Verified Date/ Time: 03/21/2018 08:03:21 Reading Location: [facility] Diagnostic Imaging Reading Room - [place] [address] Electronically signed by: FREYA TURCIOS M.D. on 2017 08:03 [id number] 04:37:00 Test Item Value Reference Range Comments MAGNESIUM (BEAKER) (test 1.9 mg/dL 1.6-2.6 Specimen slightly hemolyzed zmkd=735) BASIC METABOLIC [id number] 04:37:00 Test Item Value Reference Range Comments SODIUM (BEAKER) (test 141 meq/L 136-145 sjbs=374) POTASSIUM (BEAKER) (test 4.0 meq/L 3.5-5.1 Specimen slightly kcki=643) hemolyzed CHLORIDE (BEAKER) (test 104 meq/L 98-107 blwf=243) CO2 (BEAKER) (test 27 meq/L 22-29 hujv=315) BLOOD UREA NITROGEN 28 mg/dL 7-21 (BEAKER) (test tvcy=990) CREATININE (BEAKER) (test 0.81 mg/dL 0.57-1.25 Specimen slightly azhl=769) hemolyzed GLUCOSE RANDOM (BEAKER) 124 mg/dL 70-105 (test mfkf=763) CALCIUM (BEAKER) (test 9.8 mg/dL 8.4-10.2 zuxz=802) EGFR (BEAKER) (test 68 mL/min/1.73 sq m ESTIMATED GFR IS NOT svfc=0456) ACCURATE CREATININE CLEARANCE IN PREDICTING GLOMERULAR FILTRATION RATE. ESTIMATED GFR IS NOT APPLICABLE FOR DIALYSIS PATIENTS. CBC W/PLT COUNT & AUTO [id number] 04:27:00 Test Item Value Reference Range Comments WHITE BLOOD CELL COUNT (BEAKER) (test lnjk=052) 13.9 K/ L 3.5-10.5 RED BLOOD CELL COUNT (BEAKER) (test jwbq=221) 3.73 M/ L 3.93-5.22 HEMOGLOBIN (BEAKER) (test haad=923) 11.1 GM/DL 11.2-15.7 HEMATOCRIT (BEAKER) (test dvph=581) 35.4 % 34.1-44.9 MEAN CORPUSCULAR VOLUME (BEAKER) (test ejeq=659) 94.9 fL 79.4-94.8 MEAN CORPUSCULAR HEMOGLOBIN (BEAKER) (test 29.8 pg 25.6-32.2 lhjz=764) MEAN CORPUSCULAR HEMOGLOBIN CONC (BEAKER) (test 31.4 GM/DL 32.2-35.5 jcuq=783) RED CELL DISTRIBUTION WIDTH (BEAKER) (test 14.8 % 11.7-14.4 fiii=791) PLATELET COUNT (BEAKER) (test wanx=224) 173 K/CU MM 150-450 MEAN PLATELET VOLUME (BEAKER) (test iura=210) 11.8 fL 9.4-12.3 NUCLEATED RED BLOOD CELLS (BEAKER) (test 0 /100 WBC 0-0 jpco=758) NEUTROPHILS RELATIVE PERCENT (BEAKER) (test 90 % ljki=678) LYMPHOCYTES RELATIVE PERCENT (BEAKER) (test 5 % ieto=231) MONOCYTES RELATIVE PERCENT (BEAKER) (test 4 % uven=246) EOSINOPHILS RELATIVE PERCENT (BEAKER) (test 1 % iadk=146) BASOPHILS RELATIVE PERCENT (BEAKER) (test 0 % fndt=018) NEUTROPHILS ABSOLUTE COUNT (BEAKER) (test 12.44 K/ L 1.56-6.13 oihc=709) LYMPHOCYTES ABSOLUTE COUNT (BEAKER) (test 0.67 K/ L 1.18-3.74 iqws=540) MONOCYTES ABSOLUTE COUNT (BEAKER) (test 0.58 K/ L 0.24-0.36 tlis=824) EOSINOPHILS ABSOLUTE COUNT (BEAKER) (test 0.07 K/ L 0.04-0.36 ncvz=279) BASOPHILS ABSOLUTE COUNT (BEAKER) (test 0.04 K/ L 0.01-0.08 idrz=207) IMMATURE GRANULOCYTES-RELATIVE PERCENT (BEAKER) 1 % 0-1 (test tdme=5305) POCT-GLUCOSE [id number] 20:59:00 Test Item Value Reference Range Comments POC-GLUCOSE METER (BEAKER) 111 mg/dL 70-110 TESTED AT [facility] [address] (test gdim=3342) [facility] [address] POCT-GLUCOSE [id number] 18:33:00 Test Item Value Reference Range Comments POC-GLUCOSE METER (BEAKER) 101 mg/dL 70-110 TESTED AT [address] (test ngrc=0465) [place] [id number] POCT-GLUCOSE [id number] 16:33:00 Test Item Value Reference Range Comments POC-GLUCOSE METER (BEAKER) 128 mg/dL 70-110 TESTED AT [address] (test kuuv=7509) [place] [address] POCT-GLUCOSE [id number] 11:35:00 Test Item Value Reference Range Comments POC-GLUCOSE METER (BEAKER) 129 mg/dL 70-110 TESTED AT [address] (test zkin=7073) [place] [address] HEMOGLOBIN [id number] 08:58:00 Test Item Value Reference Range Comments HEMOGLOBIN A1C (BEAKER) (test szhi=779) 6.0 % 4.3-6.1 RAD, CHEST, 1 VIEW, NON [id number] 08:06:00Reason for exam:->post cardiovascular procedureShould this be [...] MDReport Verified Date/Time: 03/20/2018 08:06:53 Reading Location: [facility] Radiology Reading Room POCT-GLUCOSE [id number] 06:21:00 Test Item Value Reference Range Comments POC-GLUCOSE METER (BEAKER) 133 mg/dL 70-110 TESTED AT [address] (test bjbd=2189) [place] [address] [id number] 06:00:00 Test Item Value Reference Range Comments MAGNESIUM (BEAKER) (test hzlr=681) 2.0 mg/dL 1.6-2.6 BASIC METABOLIC [id number] 06:00:00 Test Item Value Reference Range Comments SODIUM (BEAKER) (test 144 meq/L 136-145 irjy=458) POTASSIUM (BEAKER) (test 3.9 meq/L 3.5-5.1 gnbg=717) CHLORIDE (BEAKER) (test 107 meq/L 98-107 uerh=526) CO2 (BEAKER) (test 27 meq/L 22-29 fmmz=550) BLOOD UREA NITROGEN 36 mg/dL 7-21 (BEAKER) (test llbd=426) CREATININE (BEAKER) (test 0.99 mg/dL 0.57-1.25 jigh=352) GLUCOSE RANDOM (BEAKER) 123 mg/dL 70-105 (test owxy=853) CALCIUM (BEAKER) (test 9.3 mg/dL 8.4-10.2 mveb=786) EGFR (BEAKER) (test 54 mL/min/1.73 sq m ESTIMATED GFR IS NOT vden=0210) ACCURATE CREATININE CLEARANCE IN PREDICTING GLOMERULAR FILTRATION RATE. ESTIMATED GFR IS NOT APPLICABLE FOR DIALYSIS PATIENTS. CBC W/PLT COUNT & AUTO [id number] 05:39:00 Test Item Value Reference Range Comments WHITE BLOOD CELL COUNT (BEAKER) (test ltly=622) 16.0 K/ L 3.5-10.5 RED BLOOD CELL COUNT (BEAKER) (test iuuw=304) 4.19 M/ L 3.93-5.22 HEMOGLOBIN (BEAKER) (test mrdj=589) 12.0 GM/DL 11.2-15.7 HEMATOCRIT (BEAKER) (test oziv=078) 40.1 % 34.1-44.9 MEAN CORPUSCULAR VOLUME (BEAKER) (test zesn=418) 95.7 fL 79.4-94.8 MEAN CORPUSCULAR HEMOGLOBIN (BEAKER) (test 28.6 pg 25.6-32.2 tuvd=218) MEAN CORPUSCULAR HEMOGLOBIN CONC (BEAKER) (test 29.9 GM/DL 32.2-35.5 tcce=508) RED CELL DISTRIBUTION WIDTH (BEAKER) (test 14.8 % 11.7-14.4 zzli=130) PLATELET COUNT (BEAKER) (test jyby=998) 166 K/CU MM 150-450 MEAN PLATELET VOLUME (BEAKER) (test cwhr=491) 11.6 fL 9.4-12.3 NUCLEATED RED BLOOD CELLS (BEAKER) (test 0 /100 WBC 0-0 nwjj=906) NEUTROPHILS RELATIVE PERCENT (BEAKER) (test 90 % wajk=085) LYMPHOCYTES RELATIVE PERCENT (BEAKER) (test 4 % jryn=456) MONOCYTES RELATIVE PERCENT (BEAKER) (test 4 % anbk=213) EOSINOPHILS RELATIVE PERCENT (BEAKER) (test 0 % pfsk=717) BASOPHILS RELATIVE PERCENT (BEAKER) (test 0 % pyuv=795) NEUTROPHILS ABSOLUTE COUNT (BEAKER) (test 14.45 K/ L 1.56-6.13 jghw=754) LYMPHOCYTES ABSOLUTE COUNT (BEAKER) (test 0.66 K/ L 1.18-3.74 fcbe=250) MONOCYTES ABSOLUTE COUNT (BEAKER) (test 0.70 K/ L 0.24-0.36 rzqc=999) EOSINOPHILS ABSOLUTE COUNT (BEAKER) (test 0.01 K/ L 0.04-0.36 ccff=471) BASOPHILS ABSOLUTE COUNT (BEAKER) (test 0.06 K/ L 0.01-0.08 akjs=781) IMMATURE GRANULOCYTES-RELATIVE PERCENT (BEAKER) 1 % 0-1 (test xzfy=8908) POCT-GLUCOSE [id number] 00:24:00 Test Item Value Reference Range Comments POC-GLUCOSE METER (BEAKER) 117 mg/dL 70-110 TESTED AT [facility] [address] (test mops=9106) [facility] [address] POCT-GLUCOSE [id number] 17:07:00 Test Item Value Reference Range Comments POC-GLUCOSE METER (BEAKER) 132 mg/dL 70-110 TESTED AT [facility] [address] (test myhq=7214) [facility] [address] RAD, ABDOMEN/KUB, 1 VIEW [id number] 15:02:00Reason for exam:->nausea and eructationsFINAL REPORT TECHNIQUE: [...] the spine. Bones are osteopenic. Signed: [facility] [place] Verified Date/Time: 03/19/2018 15:02:35 Reading Location: [facility] Radiology Reading Room POCT- GLUCOSE [id number] 10:23:00 Test Item Value Reference Range Comments POC-GLUCOSE METER (BEAKER) 111 mg/dL 70-110 TESTED AT [address] (test lukw=1204) [facility] [address] RAD, CHEST, 1 VIEW, NON [id number] 08:26:00Reason for exam:->post cardiovascular procedureShould this be performed at the bedside?->YesFINAL REPORT CLINICAL HISTORY: post cardiovascular procedure TECHNIQUE: 1 view of the chest. COMPARISON: 03/18/2018 IMPRESSION: The ETT has been removed. The right central line and nasogastric tube remain. Bibasilar atelectasis is seen with trace bilateral pleural effusions. The cardiomediastinal silhouette is magnified by technique with a pacemaker. Signed : Alia Garrett Verified Date/Time: 03/19/2018 08:26:26 Reading Location: [facility] Radiology Reading Room POCT-GLUCOSE [id number] 06:09:00 Test Item Value Reference Range Comments POC-GLUCOSE METER (BEAKER) 120 mg/dL 70-110 TESTED AT [address] (test lrmn=7988) [place] [id number] POCT-GLUCOSE [id number] 06:09:00 Test Item Value Reference Range Comments POC-GLUCOSE METER (BEAKER) 120 mg/dL 70-110 TESTED AT [address] (test ayik=8155) [place] [id number] 04:28:00 Test Item Value Reference Range Comments MAGNESIUM (BEAKER) (test 2.2 mg/dL 1.6-2.6 Specimen slightly hemolyzed unim=819) BASIC METABOLIC [id number] 04:28:00 Test Item Value Reference Range Comments SODIUM (BEAKER) (test 141 meq/L 136-145 wzmg=436) POTASSIUM (BEAKER) (test 3.8 meq/L 3.5-5.1 Specimen slightly iwwv=533) hemolyzed CHLORIDE (BEAKER) (test 109 meq/L 98-107 czsl=928) CO2 (BEAKER) (test 24 meq/L 22-29 ximt=729) BLOOD UREA NITROGEN 30 mg/dL 7-21 (BEAKER) (test nqjk=789) CREATININE (BEAKER) (test 0.86 mg/dL 0.57-1.25 Specimen slightly oiki=015) hemolyzed GLUCOSE RANDOM (BEAKER) 119 mg/dL 70-105 (test zimx=109) CALCIUM (BEAKER) (test 8.9 mg/dL 8.4-10.2 boun=758) EGFR (BEAKER) (test 63 mL/min/1.73 sq m ESTIMATED GFR IS NOT kuho=1694) ACCURATE CREATININE CLEARANCE IN PREDICTING GLOMERULAR FILTRATION RATE. ESTIMATED GFR IS NOT APPLICABLE FOR DIALYSIS PATIENTS. CBC W/PLT COUNT & AUTO [id number] 04:19:00 Test Item Value Reference Range Comments WHITE BLOOD CELL COUNT (BEAKER) (test yysm=460) 12.8 K/ L 3.5-10.5 RED BLOOD CELL COUNT (BEAKER) (test sqcd=958) 4.54 M/ L 3.93-5.22 HEMOGLOBIN (BEAKER) (test ovcc=084) 12.9 GM/DL 11.2-15.7 HEMATOCRIT (BEAKER) (test mpba=724) 43.3 % 34.1-44.9 MEAN CORPUSCULAR VOLUME (BEAKER) (test uhjt=539) 95.4 fL 79.4-94.8 MEAN CORPUSCULAR HEMOGLOBIN (BEAKER) (test 28.4 pg 25.6-32.2 qbfu=734) MEAN CORPUSCULAR HEMOGLOBIN CONC (BEAKER) (test 29.8 GM/DL 32.2-35.5 bgyi=129) RED CELL DISTRIBUTION WIDTH (BEAKER) (test 14.8 % 11.7-14.4 lyvy=888) PLATELET COUNT (BEAKER) (test dxze=917) 207 K/CU MM 150-450 MEAN PLATELET VOLUME (BEAKER) (test ljaq=639) 11.6 fL 9.4-12.3 NUCLEATED RED BLOOD CELLS (BEAKER) (test 0 /100 WBC 0-0 hnjs=075) NEUTROPHILS RELATIVE PERCENT (BEAKER) (test 87 % jxus=596) LYMPHOCYTES RELATIVE PERCENT (BEAKER) (test 6 % ilkm=879) MONOCYTES RELATIVE PERCENT (BEAKER) (test 6 % ylrh=234) EOSINOPHILS RELATIVE PERCENT (BEAKER) (test 0 % lguw=965) BASOPHILS RELATIVE PERCENT (BEAKER) (test 1 % prlu=055) NEUTROPHILS ABSOLUTE COUNT (BEAKER) (test 11.16 K/ L 1.56-6.13 grsz=182) LYMPHOCYTES ABSOLUTE COUNT (BEAKER) (test 0.71 K/ L 1.18-3.74 ivwu=567) MONOCYTES ABSOLUTE COUNT (BEAKER) (test 0.74 K/ L 0.24-0.36 ackm=214) EOSINOPHILS ABSOLUTE COUNT (BEAKER) (test 0.02 K/ L 0.04-0.36 xgrj=779) BASOPHILS ABSOLUTE COUNT (BEAKER) (test 0.07 K/ L 0.01-0.08 byqc=949) IMMATURE GRANULOCYTES-RELATIVE PERCENT (BEAKER) 1 % 0-1 (test zwzo=4044) BLOOD GAS, [id number] 04:01:00 Test Item Value Reference Range Comments PH ARTERIAL (BEAKER) (test mily=540) 7.37 7.35-7.45 PCO2 ARTERIAL (BEAKER) (test yxhi=798) 47 mmHg 35-45 PO2 ARTERIAL (BEAKER) (test jxeg=734) 68 mmHg 80-90 O2 SATURATION ARTERIAL (BEAKER) (test ocmg=640) 92.4 % 96.0-97.0 HCO3 ARTERIAL (BEAKER) (test rtac=700) 26 mmol/L 21-29 BASE EXCESS ARTERIAL (BEAKER) (test cflc=419) 0.6 mmol/L -2.0-3.0 PATIENT TEMPERATURE (BEAKER) (test dsny=8630) 37.4 C FIO2 (BEAKER) (test jjrf=9880) 40.0 % BLOOD GAS, [id number] 22:23:00 Test Item Value Reference Range Comments PH ARTERIAL (BEAKER) (test msvp=034) 7.40 7.35-7.45 PCO2 ARTERIAL (BEAKER) (test folf=655) 42 mmHg 35-45 PO2 ARTERIAL (BEAKER) (test wkpg=958) 150 mmHg 80-90 O2 SATURATION ARTERIAL (BEAKER) (test zzfg=979) 98.9 % 96.0-97.0 HCO3 ARTERIAL (BEAKER) (test nnxh=638) 25 mmol/L 21-29 BASE EXCESS ARTERIAL (BEAKER) (test etuy=085) 0.2 mmol/L -2.0-3.0 PATIENT TEMPERATURE (BEAKER) (test xdej=3346) 36.6 C FIO2 (BEAKER) (test zuak=6933) 40.0 % GLUCOSE-STAT [id number] 22:23:00 Test Item Value Reference Range Comments GLUCOSE RANDOM (BEAKER) (test tonm=243) 140 mg/dL 70-110 [id number] 20:01:00 Test Item Value Reference Range Comments POTASSIUM (BEAKER) (test vaou=309) 3.7 meq/L 3.5-5.1 8 hours after PO replacement [id number] 20:01:00 Test Item Value Reference Range Comments MAGNESIUM (BEAKER) (test dslb=139) 2.2 mg/dL 1.6-2.6 8 hours after PO replacement completedBLOOD GAS, [id number] 19:27:00 Test Item Value Reference Range Comments PH ARTERIAL (BEAKER) (test cnbx=793) 7.40 7.35-7.45 PCO2 ARTERIAL (BEAKER) (test wafe=769) 40 mmHg 35-45 PO2 ARTERIAL (BEAKER) (test uaiu=973) 93 mmHg 80-90 O2 SATURATION ARTERIAL (BEAKER) (test pqad=757) 97.3 % 96.0-97.0 HCO3 ARTERIAL (BEAKER) (test mohv=318) 25 mmol/L 21-29 BASE EXCESS ARTERIAL (BEAKER) (test vtzz=197) -0.1 mmol/L -2.0-3.0 PATIENT TEMPERATURE (BEAKER) (test gijx=8247) 36.6 C FIO2 (BEAKER) (test fzgg=3838) 40.0 % POCT-GLUCOSE [id number] 19:09:00 Test Item Value Reference Range Comments POC-GLUCOSE METER (BEAKER) 123 mg/dL 70-110 TESTED AT [facility] [address] (test ltnc=0543) [facility] [address] POCT-GLUCOSE [id number] 18:02:00 Test Item Value Reference Range Comments POC-GLUCOSE METER (BEAKER) 108 mg/dL 70-110 TESTED AT [address] (test rbie=2943) [facility] [address] POCT-GLUCOSE [id number] 17:06:00 Test Item Value Reference Range Comments POC-GLUCOSE METER (BEAKER) 103 mg/dL 70-110 TESTED AT [address] (test ddpa=5677) [facility] [address] POCT-GLUCOSE [id number] 16:00:00 Test Item Value Reference Range Comments POC-GLUCOSE METER (BEAKER) 121 mg/dL 70-110 TESTED AT [address] (test tmtb=3828) [facility] [address] POCT-GLUCOSE [id number] 15:45:00 Test Item Value Reference Range Comments POC-GLUCOSE METER (BEAKER) 146 mg/dL 70-110 TESTED AT [address] (test mdzl=3573) [facility] [address] BLOOD GAS, [id number] 15:25:00 Test Item Value Reference Range Comments PH ARTERIAL (BEAKER) (test kyst=213) 7.33 7.35-7.45 PCO2 ARTERIAL (BEAKER) (test niiu=289) 49 mmHg 35-45 PO2 ARTERIAL (BEAKER) (test wdry=844) 84 mmHg 80-90 O2 SATURATION ARTERIAL (BEAKER) (test zheg=116) 95.8 % 96.0-97.0 HCO3 ARTERIAL (BEAKER) (test hoxm=660) 25 mmol/L 21-29 BASE EXCESS ARTERIAL (BEAKER) (test dcyu=026) -1.3 mmol/L -2.0-3.0 PATIENT TEMPERATURE (BEAKER) (test ewmj=5847) 36.6 C FIO2 (BEAKER) (test zxwe=5027) 40.0 % PLATELET AGGREGATION: FUNCTION [id number] 13:34:00 Test Item Value Reference Range Comments WEAK ADP RESULT(BEAKER) (test 63 % 60-91 qzuu=7379) PLATELET FUNCTION SCREEN 60-100% indicates normal INTERP (BEAKER) (test platelet function zayc=1950) [id number] (BEAKER) Teresa De León MD (electronic (test nbbi=7940) signature) PLATELET COUNT AGG (BEAKER) 209 K/CU MM 150-450 (test dvqa=7603) for patients on clopidogrel in past two weeksRAD, CHEST, 1 VIEW, NON [id number] 13:15:00Reason for exam:->post cardiovascular procedureShould this [...] MDReport Verified Date/Time: 03/18/2018 13:15:44 Reading Location: [facility] [id number] Consult Reading Room [id number] 13:04:00 Test Item Value Reference Range Comments MAGNESIUM (BEAKER) (test jlla=845) 1.8 mg/dL 1.6-2.6 BASIC METABOLIC [id number] 13:04:00 Test Item Value Reference Range Comments SODIUM (BEAKER) (test 140 meq/L 136-145 tjut=543) POTASSIUM (BEAKER) (test 3.0 meq/L 3.5-5.1 ozic=695) CHLORIDE (BEAKER) (test 109 meq/L 98-107 xncj=412) CO2 (BEAKER) (test 23 meq/L 22-29 sfld=145) BLOOD UREA NITROGEN 29 mg/dL 7-21 (BEAKER) (test myik=111) CREATININE (BEAKER) (test 0.89 mg/dL 0.57-1.25 lqhr=046) GLUCOSE RANDOM (BEAKER) 142 mg/dL 70-105 (test jqpy=016) CALCIUM (BEAKER) (test 9.3 mg/dL 8.4-10.2 chfv=774) EGFR (BEAKER) (test 61 mL/min/1.73 sq m ESTIMATED GFR IS NOT taji=6729) ACCURATE CREATININE CLEARANCE IN PREDICTING GLOMERULAR FILTRATION RATE. ESTIMATED GFR IS NOT APPLICABLE FOR DIALYSIS PATIENTS. [id number] 12:43:00 Test Item Value Reference Range Comments PHOSPHORUS (BEAKER) (test fzls=146) 3.9 mg/dL 2.3-4.7 LACTIC ACID, VENOUS, WHOLE [id number] 12:15:00 Test Item Value Reference Range Comments LACTATE BLOOD VENOUS (2) 1.0 mmol/L 0.5-2.2 Specimen slightly hemolyzed (BEAKER) (test iecv=8354) Effective 02/09/2016: Units/Reference Range ChangeNew: 0.5-2.2 mmol/L Previous: 5 -20 mg/dLCBC W/PLT COUNT & AUTO [id number] 12:06:00 Test Item Value Reference Range Comments WHITE BLOOD CELL COUNT (BEAKER) (test ggyd=968) 14.3 K/ L 3.5-10.5 RED BLOOD CELL COUNT (BEAKER) (test aqmf=692) 4.44 M/ L 3.93-5.22 HEMOGLOBIN (BEAKER) (test nmcx=598) 12.9 GM/DL 11.2-15.7 HEMATOCRIT (BEAKER) (test jfry=644) 41.8 % 34.1-44.9 MEAN CORPUSCULAR VOLUME (BEAKER) (test nbfr=898) 94.1 fL 79.4-94.8 MEAN CORPUSCULAR HEMOGLOBIN (BEAKER) (test 29.1 pg 25.6-32.2 yksu=437) MEAN CORPUSCULAR HEMOGLOBIN CONC (BEAKER) (test 30.9 GM/DL 32.2-35.5 tkzw=537) RED CELL DISTRIBUTION WIDTH (BEAKER) (test 14.5 % 11.7-14.4 hirl=125) PLATELET COUNT (BEAKER) (test panm=665) 176 K/CU MM 150-450 MEAN PLATELET VOLUME (BEAKER) (test lrhk=829) 11.4 fL 9.4-12.3 NUCLEATED RED BLOOD CELLS (BEAKER) (test 0 /100 WBC 0-0 wvjs=452) NEUTROPHILS RELATIVE PERCENT (BEAKER) (test 91 % kqfg=719) LYMPHOCYTES RELATIVE PERCENT (BEAKER) (test 6 % bmgf=527) MONOCYTES RELATIVE PERCENT (BEAKER) (test 1 % zqkz=535) EOSINOPHILS RELATIVE PERCENT (BEAKER) (test 0 % pfgc=770) BASOPHILS RELATIVE PERCENT (BEAKER) (test 1 % zjpj=593) NEUTROPHILS ABSOLUTE COUNT (BEAKER) (test 13.02 K/ L 1.56-6.13 gxwl=657) LYMPHOCYTES ABSOLUTE COUNT (BEAKER) (test 0.84 K/ L 1.18-3.74 zgqk=461) MONOCYTES ABSOLUTE COUNT (BEAKER) (test 0.09 K/ L 0.24-0.36 gpcc=229) EOSINOPHILS ABSOLUTE COUNT (BEAKER) (test 0.05 K/ L 0.04-0.36 wlpl=746) BASOPHILS ABSOLUTE COUNT (BEAKER) (test 0.08 K/ L 0.01-0.08 slmd=322) IMMATURE GRANULOCYTES-RELATIVE PERCENT (BEAKER) 2 % 0-1 (test lwnr=1588) HGB/HCT (H&H) - STAT [id number] 12:01:00 Test Item Value Reference Range Comments HEMOGLOBIN (BEAKER) (test ggof=302) 13.8 g/dL 12.0-15.0 HEMATOCRIT (BEAKER) (test lzcu=078) 41.0 % 36.0-45.0 CALCIUM, [id number] 12:01:00 Test Item Value Reference Range Comments CALCIUM IONIZED (BEAKER) (test sbia=583) 1.25 mmol/L 1.12-1.27 PH, BLOOD (BEAKER) (test xuvu=6174) 7.37 BLOOD GAS, [id number] 12:01:00 Test Item Value Reference Range Comments PH ARTERIAL (BEAKER) (test ddmx=792) 7.38 7.35-7.45 PCO2 ARTERIAL (BEAKER) (test cvma=560) 46 mmHg 35-45 PO2 ARTERIAL (BEAKER) (test akif=067) 214 mmHg 80-90 O2 SATURATION ARTERIAL (BEAKER) (test tgfo=875) 99.4 % 96.0-97.0 HCO3 ARTERIAL (BEAKER) (test rkhr=854) 26 mmol/L 21-29 BASE EXCESS ARTERIAL (BEAKER) (test ljwq=556) 0.5 mmol/L -2.0-3.0 PATIENT TEMPERATURE (BEAKER) (test lncr=4237) 36.7 C FIO2 (BEAKER) (test cdcw=6800) 60.0 % POTASSIUM-STAT [id number] 12:01:00 Test Item Value Reference Range Comments POTASSIUM (BEAKER) (test keyi=420) 3.0 meq/L 3.6-5.5 GLUCOSE-STAT [id number] 12:01:00 Test Item Value Reference Range Comments GLUCOSE RANDOM (BEAKER) (test ivkq=047) 139 mg/dL 70-110 BLOOD GAS, [id number] 10:42:00 Test Item Value Reference Range Comments PH ARTERIAL (BEAKER) (test ffeu=485) 7.39 7.35-7.45 PCO2 ARTERIAL (BEAKER) (test reuz=985) 45 mmHg 35-45 PO2 ARTERIAL (BEAKER) (test fbmf=303) 260 mmHg 80-90 O2 SATURATION ARTERIAL (BEAKER) (test hzor=806) 99.6 % 96.0-97.0 HCO3 ARTERIAL (BEAKER) (test fuac=762) 26 mmol/L 21-29 BASE EXCESS ARTERIAL (BEAKER) (test yxjn=757) 0.7 mmol/L -2.0-3.0 PATIENT TEMPERATURE (BEAKER) (test pvjc=0677) 36.7 C FIO2 (BEAKER) (test zhmy=3560) 50.0 % POTASSIUM-STAT [id number] 10:42:00 Test Item Value Reference Range Comments POTASSIUM (BEAKER) (test axqd=992) 3.1 meq/L 3.6-5.5 GLUCOSE-STAT [id number] 10:42:00 Test Item Value Reference Range Comments GLUCOSE RANDOM (BEAKER) (test zqsv=585) 139 mg/dL 70-110 CALCIUM, [id number] 10:41:00 Test Item Value Reference Range Comments CALCIUM IONIZED (BEAKER) (test zrjw=120) 1.27 mmol/L 1.12-1.27 PH, BLOOD (BEAKER) (test irbo=9100) 7.38 SODIUM NA-STAT [id number] 10:40:00 Test Item Value Reference Range Comments SODIUM (BEAKER) (test wijy=035) 141 meq/L 135-148 HGB/HCT (H&H) - STAT [id number] 10:40:00 Test Item Value Reference Range Comments HEMOGLOBIN (BEAKER) (test oozu=785) 13.7 g/dL 12.0-15.0 HEMATOCRIT (BEAKER) (test fsxo=774) 40.0 % 36.0-45.0 BLOOD GAS, [id number] 09:53:00 Test Item Value Reference Range Comments PH ARTERIAL (BEAKER) (test nmln=560) 7.45 7.35-7.45 PCO2 ARTERIAL (BEAKER) (test oetv=289) 38 mmHg 35-45 PO2 ARTERIAL (BEAKER) (test ryhq=448) 187 mmHg 80-90 O2 SATURATION ARTERIAL (BEAKER) (test crvf=548) 99.4 % 96.0-97.0 HCO3 ARTERIAL (BEAKER) (test kdsu=869) 26 mmol/L 21-29 BASE EXCESS ARTERIAL (BEAKER) (test xwlk=046) 1.7 mmol/L -2.0-3.0 PATIENT TEMPERATURE (BEAKER) (test uxjd=7617) 36.0 C FIO2 (BEAKER) (test awxa=8635) 50.0 % POTASSIUM-STAT [id number] 09:53:00 Test Item Value Reference Range Comments POTASSIUM (BEAKER) (test tlzb=752) 3.0 meq/L 3.6-5.5 GLUCOSE-STAT [id number] 09:53:00 Test Item Value Reference Range Comments GLUCOSE RANDOM (BEAKER) (test ekpm=641) 135 mg/dL 70-110 CALCIUM, [id number] 09:53:00 Test Item Value Reference Range Comments CALCIUM IONIZED (BEAKER) (test wkjz=882) 1.01 mmol/L 1.12-1.27 PH, BLOOD (BEAKER) (test vdbm=2886) 7.43 SODIUM NA-STAT [id number] 09:51:00 Test Item Value Reference Range Comments SODIUM (BEAKER) (test djjy=386) 137 meq/L 135-148 HGB/HCT (H&H) - STAT [id number] 09:51:00 Test Item Value Reference Range Comments HEMOGLOBIN (BEAKER) (test msce=362) 14.1 g/dL 12.0-15.0 HEMATOCRIT (BEAKER) (test qsne=837) 41.0 % 36.0-45.0 BLOOD GAS, [id number] 08:48:00 Test Item Value Reference Range Comments PH ARTERIAL (BEAKER) (test wuqu=362) 7.43 7.35-7.45 PCO2 ARTERIAL (BEAKER) (test ucbe=753) 47 mmHg 35-45 PO2 ARTERIAL (BEAKER) (test fqzq=283) 481 mmHg 80-90 O2 SATURATION ARTERIAL (BEAKER) (test uxvk=847) 99.9 % 96.0-97.0 HCO3 ARTERIAL (BEAKER) (test acac=166) 31 mmol/L 21-29 BASE EXCESS ARTERIAL (BEAKER) (test jidp=149) 5.1 mmol/L -2.0-3.0 PATIENT TEMPERATURE (BEAKER) (test vhrq=2049) 36.5 C FIO2 (BEAKER) (test gtcq=2639) 100.0 % POTASSIUM-STAT [id number] 08:48:00 Test Item Value Reference Range Comments POTASSIUM (BEAKER) (test dmkl=886) 3.1 meq/L 3.6-5.5 GLUCOSE-STAT [id number] 08:48:00 Test Item Value Reference Range Comments GLUCOSE RANDOM (BEAKER) (test obwm=802) 116 mg/dL 70-110 HGB/HCT (H&H) - STAT [id number] 08:48:00 Test Item Value Reference Range Comments HEMOGLOBIN (BEAKER) (test tiyd=397) 15.5 g/dL 12.0-15.0 HEMATOCRIT (BEAKER) (test xsho=561) 46.0 % 36.0-45.0 CALCIUM, [id number] 08:47:00 Test Item Value Reference Range Comments CALCIUM IONIZED (BEAKER) (test czzr=089) 1.12 mmol/L 1.12-1.27 PH, BLOOD (BEAKER) (test bzfi=0049) 7.42 SODIUM NA-STAT [id number] 08:46:00 Test Item Value Reference Range Comments SODIUM (BEAKER) (test scvh=749) 141 meq/L 135-148 POCT-GLUCOSE [id number] 07:58:00 Test Item Value Reference Range Comments POC-GLUCOSE METER (BEAKER) 105 mg/dL 70-110 TESTED AT [facility] [address] (test bldo=6773) [place] [address] [id number] 15:19:00 Test Item Value Reference Range Comments PARTIAL THROMBOPLASTIN TIME (BEAKER) (test 27.8 seconds 22.5-36.0 jdzx=770) PROTHROMBIN [id number] 15:18:00 Test Item Value Reference Range Comments PROTIME (BEAKER) (test tljn=673) 14.4 seconds 11.7-14.7 INR (BEAKER) (test rdfw=073) 1.1 <=5.9 RECOMMENDED COUMADIN/WARFARIN INR THERAPY RANGESSTANDARD DOSE: 2.0 - 3.0 Includes: PROPHYLAXIS forvenous thrombosis, systemic embolization; TREATMENT for venous thrombosis and/or pulmonary embolus.HIGH RISK: Target INR is 2.5-3.5 for patients with mechanical heart valves.COMPREHENSIVE METABOLIC [id number] 15:10:00 Test Item Value Reference Range Comments TOTAL PROTEIN (BEAKER) 7.7 gm/dL 6.0-8.3 (test baau=189) ALBUMIN (BEAKER) (test 4.1 g/dL 3.5-5.0 camr=0442) ALKALINE PHOSPHATASE 40 U/L 40-150 (BEAKER) (test jjyx=306) BILIRUBIN TOTAL (BEAKER) 0.8 mg/dL 0.2-1.2 (test jhoi=951) SODIUM (BEAKER) (test 143 meq/L 136-145 nsxq=972) POTASSIUM (BEAKER) (test 4.1 meq/L 3.5-5.1 hxfw=756) CHLORIDE (BEAKER) (test 101 meq/L 98-107 rdkx=286) CO2 (BEAKER) (test 30 meq/L 22-29 lkgr=424) BLOOD UREA NITROGEN 31 mg/dL 7-21 (BEAKER) (test pyxv=069) CREATININE (BEAKER) (test 1.17 mg/dL 0.57-1.25 qzhl=735) GLUCOSE RANDOM (BEAKER) 142 mg/dL 70-105 (test mobt=997) CALCIUM (BEAKER) (test 10.5 mg/dL 8.4-10.2 saqa=738) AST (SGOT) (BEAKER) (test 28 U/L 5-34 hgjz=206) ALT (SGPT) (BEAKER) (test 18 U/L 6-55 mlye=846) EGFR (BEAKER) (test 44 mL/min/1.73 sq m ESTIMATED GFR IS NOT azvt=9548) ACCURATE CREATININE CLEARANCE IN PREDICTING GLOMERULAR FILTRATION RATE. ESTIMATED GFR IS NOT APPLICABLE FOR DIALYSIS PATIENTS. RAD, CHEST, 2 [id number] 14:44:00Reason for exam:->preopFINAL REPORT Chest two views [...] MDReport Verified Date/Time: 03/11/2018 14:44:31 Reading Location: [facility] C013W Consult Reading Room CBC W/PLT COUNT & AUTO [id number] 14:43:00 Test Item Value Reference Range Comments WHITE BLOOD CELL COUNT (BEAKER) (test mjlf=574) 7.8 K/ L 3.5-10.5 RED BLOOD CELL COUNT (BEAKER) (test gegh=017) 5.48 M/ L 3.93-5.22 HEMOGLOBIN (BEAKER) (test xrap=491) 15.6 GM/DL 11.2-15.7 HEMATOCRIT (BEAKER) (test hoks=048) 51.3 % 34.1-44.9 MEAN CORPUSCULAR VOLUME (BEAKER) (test ayxj=442) 93.6 fL 79.4-94.8 MEAN CORPUSCULAR HEMOGLOBIN (BEAKER) (test 28.5 pg 25.6-32.2 jtna=767) MEAN CORPUSCULAR HEMOGLOBIN CONC (BEAKER) (test 30.4 GM/DL 32.2-35.5 kuwb=485) RED CELL DISTRIBUTION WIDTH (BEAKER) (test 14.2 % 11.7-14.4 hqqc=734) PLATELET COUNT (BEAKER) (test xnwb=985) 251 K/CU MM 150-450 MEAN PLATELET VOLUME (BEAKER) (test owtj=816) 11.4 fL 9.4-12.3 NUCLEATED RED BLOOD CELLS (BEAKER) (test 0 /100 WBC 0-0 chpe=676) NEUTROPHILS RELATIVE PERCENT (BEAKER) (test 85 % bicy=737) LYMPHOCYTES RELATIVE PERCENT (BEAKER) (test 10 % eznv=675) MONOCYTES RELATIVE PERCENT (BEAKER) (test 3 % jsnk=194) EOSINOPHILS RELATIVE PERCENT (BEAKER) (test 0 % dnkj=433) BASOPHILS RELATIVE PERCENT (BEAKER) (test 1 % pyzo=718) NEUTROPHILS ABSOLUTE COUNT (BEAKER) (test 6.61 K/ L 1.56-6.13 tlov=828) LYMPHOCYTES ABSOLUTE COUNT (BEAKER) (test 0.79 K/ L 1.18-3.74 rjnc=796) MONOCYTES ABSOLUTE COUNT (BEAKER) (test 0.26 K/ L 0.24-0.36 eshx=488) EOSINOPHILS ABSOLUTE COUNT (BEAKER) (test 0.01 K/ L 0.04-0.36 pwxt=676) BASOPHILS ABSOLUTE COUNT (BEAKER) (test 0.07 K/ L 0.01-0.08 kxbb=814) IMMATURE GRANULOCYTES-RELATIVE PERCENT (BEAKER) 1 % 0-1 (test leeu=5168)
--- NOTE | 2019-01-24 13:50 | RAD REPORT ---
EXAM DESCRIPTION: [facility] Single View01/24/2019 1:41 pm CLINICAL HISTORY: Chest pain COMPARISON: February 2018 FINDINGS: The lungs appear clear of acute infiltrate. The heart is mildly enlarged. Pacemaker leads are in place. IMPRESSION: No acute abnormalities displayed
[2019-01-24 14:07] LABS: Absolute Lymphocytes (CBC) 1.6 K/uL (0.7-4.9); Absolute Monocytes 0.6 K/uL (0.1-1.3); Absolute Neutrophil 6.1 K/uL (1.8-8.0); Eosinophils % 2.2 % (0-4.4); Hematocrit 53.2 % (36.0-45.0); Lymphocytes % 18.8 % (15.3-44.8); Monocytes % 6.9 % (3.3-12.3); RBC Red Blood Cell Count 5.89 M/uL (3.86-4.86)
[2019-01-24 14:30] LABS: Albumin 3.7 g/dL (3.4-5.0); Bilirubin Direct 0.2 mg/dL (0-0.2); Bilirubin Total 0.4 mg/dL (0.2-1.0); Magnesium 2.2 mg/dL (1.8-2.4); Protein, Total 7.7 g/dL (6.4-8.2); Troponin (Emerg Dept Use Only) 0.46 ng/mL (0.0-0.045)
[2019-01-24 14:32] LABS: Protime INR 0.98
[2019-01-24] MEDS ORDERED: ENOXAPARIN 100 MG/ML SYR SQ ONE (15:01)
--- NOTE | 2019-01-24 15:09 | ER ---
Nurse's Notes [facility] Name: Fanny Arceo Age: 83 yrs Sex: Female : 1935 Arrival Date: 01/24/2019 Time: 12:43 Bed 24 Private MD: Sherry Stock R Diagnosis: Non-ST elevation (NSTEMI) myocardial infarction Presentation: 01/24 12:45 Presenting complaint: Patient states: i have a high BP problem, while i was sitting on hj my desk this AM, i felt a terrible chest pain that moves to the L neck area and the back on my shoulder blade; denies N/V;. Transition of care: patient was not received from another setting of care. Onset of symptoms was January 24, 2019. Risk Assessment: Do you want to hurt yourself or someone else? Patient reports no desire to harm self or others. Initial Sepsis Screen: Does the patient meet any 2 criteria? No. Patient's initial sepsis screen is negative. Does the patient have a suspected source of infection? No. Patient's initial sepsis screen is negative. Care prior to arrival: None. 12:45 Method Of Arrival: Ambulatory 12:45 Acuity: JESSE 3 hj Historical: - Allergies: 12:48 Atenolol; 12:48 Morphine; 12:48 Simvastatin; 12:48 Sulfa (Sulfonamide Antibiotics); 12:48 Ticlopidine HCl; hj - PMHx: 12:48 Atrial Fib; CAD; CHF; chronic renal failure; Clot to right arm; COPD; Depression; hj Diabetes - IDDM; GERD; High Cholesterol; Hyperlipidemia; Hypertension; Hypothyroidism; neuropathy; Sleep Apnea; - PSHx: 12:48 Hysterectomy; Cholecystectomy; Appendectomy; pacemaker; Heart stents; Aneurysm of Leg hj Artery; - Immunization history:: Adult Immunizations up to date. - Social history:: Smoking status: unknown. - Ebola Screening: : Patient negative for fever greater than or equal to 101.5 degrees Fahrenheit, and additional compatible Ebola Virus Disease symptoms Patient denies exposure to infectious person Patient denies travel to an Ebola-affected area in the 21 days before illness onset. Screenin:14 Abuse screen: Denies threats or abuse. Denies injuries from another. Nutritional rv screening: No deficits noted. Tuberculosis screening: No symptoms or risk factors identified. Fall Risk None identified. Assessment: 13:10 General: Appears in no apparent distress. comfortable, Behavior is calm, cooperative. rv Pain: Complains of pain in chest Pain radiates to left jaw, and to the back Pain began suddenly. Neuro: Level of Consciousness is awake, alert, obeys commands, Oriented to person, place, time, situation. Cardiovascular: Rhythm is ventricular pacer Chest pain is described as mild, quality is sharp, is located in chest wall radiates jaw(s) began suddenly. Respiratory: Airway is patent. GI: No signs and/or symptoms were reported involving the gastrointestinal system. : No signs and/or symptoms were reported regarding the genitourinary system. EENT: No signs and/or symptoms were reported regarding the EENT system. Derm: Skin is intact. Vital Signs: 12:49 BP 171 / 72; Pulse 69; Resp 18; Temp 98.1(TE); Pulse Ox 97% on R/A; Weight 83.91 kg; hj Height 5 ft. 6 in. (167.64 cm); Pain 0/10; 13:56 BP 176 / 73 LA Supine; Pulse 71; Resp 23 S; Pulse Ox 97% on R/A; rv 15:00 BP 167 / 99 LA Supine; Pulse 70; Resp 17 S; Pulse Ox 97% on R/A; rv 15:30 BP 135 / 64 LA Supine; Pulse 77; Resp 16 S; Pulse Ox 96% on R/A; rv 16:00 BP 179 / 99 LA Supine; Pulse 76; Resp 16 S; Pulse Ox 97% on R/A; rv 16:16 BP 158 / 100 LA Supine; Pulse 70; Resp 15 S; Pulse Ox 95% on R/A; rv 17:39 BP 104 / 64 RA Supine; Pulse 76; Resp 16 S; Pulse Ox 98% on R/A; rv 12:49 Body Mass Index 29.86 (83.91 kg, 167.64 cm) ED Course: 12:43 Patient arrived in ED. mr 12:44 Sherry Stock MD is Private Physician. mr 12:47 Triage completed. hj 12:48 Arm band placed on right wrist. hj 12:53 EKG done, by business technology teacher. reviewed by Shilo Smith MD. sm3 13:05 Leon Marc, RN is Primary Nurse. rv 13:14 Patient has correct armband on for positive identification. Placed in gown. Bed in low rv position. Call light in reach. Side rails up X 1. Adult w/ patient. groundwater monitoring technician on. Pulse ox on. NIBP on. 13:14 Patient maintains SpO2 saturation greater than 95% on room air. rv 13:17 Ryan Moore PA is PHCP. [facility] 13:17 Shilo Smith MD is Attending Physician. jmm 13:41 XRAY Chest (1 view) In Process Unspecified. EDMS 13:55 Inserted saline lock: 22 gauge in right forearm, using aseptic technique. rv 15:07 Dinh Tejada MD is Hospitalizing Provider. [facility] 17:40 No provider procedures requiring assistance completed. Patient admitted, IV remains in rv place. Administered Medications: 14:57 Drug: Lovenox 1 mg/kg Route: Sub-Q; Site: left lower abdomen; rv 16:35 Follow up: Response: No adverse reaction rv 15:01 Drug: Metoprolol 25 mg Route: PO; rv 16:34 Follow up: Response: Blood pressure is lowered rv Outcome: 15:08 Decision to Hospitalize by Provider. jmm 17:40 Admitted to Tele accompanied by maria guadalupe, room 408, with chart, Report called to SVETLANA RN rv 17:40 Condition: good 17:40 Instructed on the need for admit. 17:41 Patient left the ED. rv Signatures: Dispatcher [employer] EDMS Ryan Moore PA PA guadalupe Rachelle Ayers Leonard Boyd RN RN Leana Benedict [facility] Leon Marc, RN RN rv Corrections: (The following items were deleted from the chart) 12:51 12:49 83.91 kg; Height 5 ft. 6 in.; BMI: 29.8; Pain 0/10; hj hj 12:52 12:49 Pulse 69bpm; Resp 18bpm; Pulse Ox 97% RA; Temp 98.1F Temporal; 83.91 kg; Height 5 hj ft. 6 in.; BMI: 29.8; Pain 0/10; hj
--- NOTE | 2019-01-24 15:09 | EDPHYS ---
Physician Documentation [facility] Name: Fanny Arceo Age: 83 yrs Sex: Female : 1935 Arrival Date: 01/24/2019 Time: 12:43 Bed 24 Private MD: Sherry Stock R ED Physician Shilo Smith HPI: 01/24 13:33 This 83 yrs old Female presents to ER via Ambulatory with complaints of Chest jmm Pain, High Blood Pressure. 13:33 The patient or guardian reports chest pain that is located primarily in the substernal [facility] area. Onset: gradually, 1.5 hour(s) ago. The pain radiates to left jaw. The chest pain is described as aching. This is an 83 year old female with a history of atrial fib, CAD, CHF that presents to the ED with complaints of elevated blood pressure and left sided chest pain which radiates to her left jaw. Pain lasted approx 5 minutes and has since resolved. Patient states having intermittent episodes of chest pain over the past week. . Historical: - Allergies: 12:48 Atenolol; hj 12:48 Morphine; hj 12:48 Simvastatin; hj 12:48 Sulfa (Sulfonamide Antibiotics); hj 12:48 Ticlopidine HCl; hj - PMHx: 12:48 Atrial Fib; CAD; CHF; chronic renal failure; Clot to right arm; COPD; Depression; hj Diabetes - IDDM; GERD; High Cholesterol; Hyperlipidemia; Hypertension; Hypothyroidism; neuropathy; Sleep Apnea; - PSHx: 12:48 Hysterectomy; Cholecystectomy; Appendectomy; pacemaker; Heart stents; Aneurysm of Leg hj Artery; - Immunization history:: Adult Immunizations up to date. - Social history:: Smoking status: unknown. - Ebola Screening: : Patient negative for fever greater than or equal to 101.5 degrees Fahrenheit, and additional compatible Ebola Virus Disease symptoms Patient denies exposure to infectious person Patient denies travel to an Ebola-affected area in the 21 days before illness onset. ROS: 13:33 Constitutional: Negative for fever, chills, and weight loss. jmm 13:33 Respiratory: Negative for shortness of breath, cough, wheezing, and pleuritic chest pain, Abdomen/GI: Negative for abdominal pain, nausea, vomiting, diarrhea, and constipation, Skin: Negative for injury, rash, and discoloration, Neuro: Negative for headache, weakness, numbness, tingling, and seizure. 13:33 Cardiovascular: Positive for chest pain. 13:33 All other systems are negative. Exam: 13:33 Constitutional: This is a well developed, well nourished patient who is awake, alert, jmm and in no acute distress. Head/Face: atraumatic. Eyes: EOMI, no conjunctival erythema appreciated ENT: Moist Mucus Membranes Neck: Trachea midline, Supple Chest/axilla: Normal chest wall appearance and motion. Cardiovascular: Regular rate and rhythm. No edema appreciated Respiratory: Normal respirations, no respiratory distress appreciated Abdomen/GI: Non distended, soft Back: Normal ROM Skin: General appearance color normal MS/ Extremity: Moves all extremities, no obvious deformities appreciated, no edema noted to the lower extremities Neuro: Awake and alert, normal gait Psych: Behavior is normal, Mood is normal, Patient is cooperative and pleasant Vital Signs: 12:49 BP 171 / 72; Pulse 69; Resp 18; Temp 98.1(TE); Pulse Ox 97% on R/A; Weight 83.91 kg; hj Height 5 ft. 6 in. (167.64 cm); Pain 0/10; 13:56 BP 176 / 73 LA Supine; Pulse 71; Resp 23 S; Pulse Ox 97% on R/A; rv 15:00 BP 167 / 99 LA Supine; Pulse 70; Resp 17 S; Pulse Ox 97% on R/A; rv 15:30 BP 135 / 64 LA Supine; Pulse 77; Resp 16 S; Pulse Ox 96% on R/A; rv 16:00 BP 179 / 99 LA Supine; Pulse 76; Resp 16 S; Pulse Ox 97% on R/A; rv 16:16 BP 158 / 100 LA Supine; Pulse 70; Resp 15 S; Pulse Ox 95% on R/A; rv 17:39 BP 104 / 64 RA Supine; Pulse 76; Resp 16 S; Pulse Ox 98% on R/A; rv 12:49 Body Mass Index 29.86 (83.91 kg, 167.64 cm) MDM: 13:33 Patient medically screened. [facility] 15:06 Data reviewed: vital signs, nurses notes. Counseling: I had a detailed discussion with carlo the patient and/or guardian regarding: the historical points, exam findings, and any diagnostic results supporting the discharge/admit diagnosis, lab results, radiology results, the need for further work-up and treatment in the hospital. ED course: I discussed the patient with Dr. Jin whom recommends lovenox and metoprolol. I discussed the patient with Dr. Tejada whom accepted admission. . 01/24 13:10 Order name: Glucose, Ancillary Testing; Complete Time: 13:17 [facility] 01/24 13:17 Order name: Basic Metabolic Panel; Complete Time: 14:31 [facility] 01/24 13:17 Order name: CBC with Diff; Complete Time: 14:16 [facility] 01/24 13:17 Order name: LFT's; Complete Time: 14:31 [facility] 01/24 13:17 Order name: Magnesium; Complete Time: 14:31 [facility] 01/24 13:17 Order name: NT PRO-BNP; Complete Time: 14:31 [facility] 01/24 12:49 Order name: EKG - Nurse/Tech; Complete Time: 12:49 01/24 13:17 Order name: PT-INR; Complete Time: 14:46 [facility] 01/24 13:17 Order name: Troponin (emerg Dept Use Only); Complete Time: 14:31 [facility] 01/24 13:17 Order name: XRAY Chest (1 view); Complete Time: 13:52 [facility] 01/24 13:17 Order name: EKG; Complete Time: 13:19 [facility] 01/24 13:17 Order name: Cardiac monitoring; Complete Time: 13:55 [facility] 01/24 13:17 Order name: IV Saline Lock; Complete Time: 13:55 [facility] 01/24 13:17 Order name: Labs collected and sent; Complete Time: 13:55 [facility] 01/24 13:17 Order name: O2 Per Protocol; Complete Time: 13:55 [facility] 01/24 13:17 Order name: O2 Sat Monitoring; Complete Time: 13:55 [facility] Administered Medications: 14:57 Drug: Lovenox 1 mg/kg Route: Sub-Q; Site: left lower abdomen; rv 16:35 Follow up: Response: No adverse reaction rv 15:01 Drug: Metoprolol 25 mg Route: PO; rv 16:34 Follow up: Response: Blood pressure is lowered rv Disposition: 17:59 Co-signature as Attending Physician, Shilo Smith MD I agree with the assessment and kdr plan of care. Disposition: 01/24/19 15:08 Hospitalization ordered by Dinh Tejada for Inpatient Admission. Preliminary diagnosis is Non-ST elevation (NSTEMI) myocardial infarction. - Bed requested for Telemetry/MedSurg (Inpatient). - Status is Inpatient Admission. rv - Condition is Stable. - Problem is new. - Symptoms have improved. UTI on Admission? No Signatures: Dispatcher [employer] EDMS Shilo Smith MD MD [facility] Ryan Moore PA PA Arcadio Toribio em1 Leonard Boyd, RN RN hj Leon Marc RN RN rv Corrections: (The following items were deleted from the chart) 16:22 15:08 Hospitalization Ordered by Dinh Tejada MD for Inpatient Admission. Preliminary em1 diagnosis is Non-ST elevation (NSTEMI) myocardial infarction. Bed requested for Telemetry/MedSurg (Inpatient). Status is Inpatient Admission. Condition is Stable. Problem is new. Symptoms have improved. UTI on Admission? No. nury 17:41 16:22 01/24/2019 15:08 Hospitalization Ordered by Dinh Tejada MD for Inpatient rv Admission. Preliminary diagnosis is Non-ST elevation (NSTEMI) myocardial infarction. Bed requested for Telemetry/MedSurg (Inpatient). Status is Inpatient Admission. Condition is Stable. Problem is new. Symptoms have improved. UTI on Admission? No. em1
[2019-01-24] MEDS ORDERED: METOPROLOL TAR 25 MG TAB ONE (15:11)
[2019-01-24] MEDS ORDERED: ONDANSETRON 4 MG/2 ML VIAL IV PRN (17:52)
[2019-01-24] MEDS ORDERED: ACETAMINOPHEN 500 MG TAB PO PRN (17:52)
[2019-01-24] MEDS ORDERED: GLUCAGON 1 MG/VIAL IM PRN (17:56)
[2019-01-24] MEDS: INSULIN -REGULAR HUMAN 50 UNIT/0.5 ML ML SQ SCH ×2 (17:58→21:00)
[2019-01-24] MEDS: NITROGLYCERIN 0.4 MG/TAB SL PRN (19:06)
[2019-01-24] MEDS ORDERED: PNEUMOCOCCAL VACCINE 0.5 ML IMVAC ONE (21:00)
[2019-01-24] MEDS ORDERED: ENOXAPARIN 100 MG/ML SYR SQ SCH (21:00)
[2019-01-24] MEDS ORDERED: ENOXAPARIN 80 MG/0.8 ML SQ SCH (21:00)
[2019-01-24] MEDS ORDERED: TRAMADOL HCL 50 MG TAB PO PRN (21:03)
[2019-01-24] MEDS: ARFORMOTEROL TARTRATE 15 MCG/2 ML VIAL.NEB NEB SCH (21:45)
[2019-01-24] MEDS: ATORVASTATIN 80 MG TAB PO SCH (21:54)
[2019-01-24] MEDS: GABAPENTIN 300 MG CAP PO SCH (21:54)
[2019-01-24] MEDS: METOPROLOL TAR 25 MG TAB PO SCH (21:55)
[2019-01-24] MEDS: SERTRALINE HCL 50 MG TAB PO SCH (21:55)
[2019-01-24] MEDS: ENOXAPARIN 80 MG/0.8 ML SQ SCH (22:07)
[2019-01-24 23:54] LABS: Urine Appearance CLEAR; Urine Bilirubin NEGATIVE (NEG); Urine Blood NEGATIVE (NEG); Urine Color YELLOW; Urine Glucose NEGATIVE (NEG); Urine Protein NEGATIVE (NEG); Urine pH 6.5 (5.0-7.0)
[2019-01-24 23:56] LABS: Urine Microscopic Reflex ORDER UMIC
[2019-01-25 02:05] LABS: Urine Amorphous Sediment 1+ /HPF (NONE SEEN); Urine Bacteria 20-50 /HPF (<20); Urine Culture Reflex Order REFLEXED; Urine RBC NONE SEEN /HPF (NONE SEEN)
--- NOTE | 2019-01-25 02:36 | HP ---
Date of Admission: 01/24/2019 Chief Complaint: Chest pain. Consultants: Dr. Jin with Cardiology. History Of Present Illness: The patient is an 83-year-old female with past medical history of hypert ension; hyperlipidemia; diabetes mellitus type 2; coronary artery disease, status post stents; COPD; history of DVT, PE; history of atrial fibrillation, status post pacemaker; peripheral arterial diseas e, status post aortofemoral bypass, who was in her usual state of health until 2 weeks prior to admis esdras when the patient had chest pain that would wake her up in the early mornings. The patient state d the pain was substernal and sharp, but would dissipate after a little while. She is taking a daily aspirin. The patient does report elevated blood pressure more than usual with her blood pressure th is morning in the 200s. The patient also reported some sharp chest pain that radiated to her left ne ck and jaw as well as to the middle of her back, associated with some nausea, but no diaphoresis, vom iting, fever, chills. The patient was then brought into the ER by her family members. The patient's symptoms were constant, moderate, and progressively worsening. In the ER, her workup revealed tropo rogelio level of 0.46, white blood cell count was normal. Imaging studies did not show any acute abnorma lities. The patient's EKG did not show any ST elevations. She was then referred for admission. Dr. Jin was contacted by the ER, recommended Lovenox, and to admit the patient for further evaluatio n and treatment. When seen in the ER, she was awake, alert, oriented x3, in some mild distress, stat ing that her pain has improved. Past Medical History: Hypertension; hyperlipidemia; diabetes mellitus type 2; coronary artery diseas e; COPD; history of DVT, PE; history of atrial fibrillation, requiring pacemaker; GERD; depression; h ypothyroidism; generalized osteoarthritis; history of esophageal stricture; chronic kidney disease. Past Surgical History: Cholecystectomy; appendectomy; hysterectomy; pancreatic surgery due to mass, no cancer noted; eye surgery, recent aortofemoral bypass bilaterally with subsequent complications, d one in [facility] last year. Allergies: TO MORPHINE AND TICLOPIDINE. Medications: List reviewed. Social History: The patient is a former smoker. Has not smoked recently. No alcohol use or illicit drug use. The patient lives at home with her son. Does use a walker due to her COPD, is independen t in her activities of daily living. Still drives. Family History: Brother had seizures. Mother had heart disease and peripheral arterial disease. Fa ther had hypertension and stroke. Review of Systems: An 11-point system reviewed, negative except as per HPI. Physical Examination: Vital Signs: Temperature is 98.1, blood pressure 171/72, pulse 69, respirations 18, O2 97% on room a ir. General: Awake, alert, oriented x3. Elderly female, in some mild distress. Obese. HEENT: Normocephalic, atraumatic. PERRLA. EOMI. Moist mucous membranes. Oropharynx is clear. Po or dentition. Conjunctiva is anicteric. Neck: Supple. No JVD. Trachea midline. CV: S1, S2. Regular rate and rhythm. Peripheral pulses 1+ bilateral lower extremities. Respiratory: Moving air well bilaterally. No wheezing or stridor. No use of accessory muscles. Gastrointestinal: Abdomen is soft, nontender, nondistended. Positive bowel sounds. No guarding or rigidity. Extremities: No clubbing, cyanosis, or edema. No calf tenderness. Neuro: Cranial nerves 2 through 12 intact grossly. No focal neurological deficit. Speech is normal . Strength is 5/5 bilateral upper and lower extremities. Skin: No rashes. Normal skin turgor. Psych: Mood is okay. Affect is full. Insight and judgment are good. Laboratory Data: Sodium 144, potassium 4, chloride 106, CO2 33, BUN 30, creatinine 1.26, glucose 108 , calcium 9.3. Troponin 0.46. BNP 2273. WBC 8.6, H and H 17.2 and 53.2, platelets 232, neutrophils 71%. INR 0.98. Chest x-ray, personally reviewed, shows no intrathoracic process identified. Assessment And Plan: An 83-year-old female with 1.Non-ST elevation myocardial infarction. We will start her on chest pain guidelines, beta-heidi, aspirin, statin, and STEPHANIE inhibitor. We will start her on Lovenox 1 mg/kg q.12 hours. Cardiology mustafa s been consulted. We will check echocardiogram, serial cardiac enzymes, and electrocardiogram. 2.Coronary artery disease, [place] artery and [place] heart, status post stent with angina. 3.Essential hypertension, uncontrolled. Her blood pressure is in the 200 systolic. We will resume home medications and add hydralazine p.r.n. 4.Mixed hyperlipidemia. We will continue statin. We will check lipid panel. 5.Diabetes mellitus type 2, insulin requiring, with hyperglycemia. We will resume home dose of insu vidal and sliding scale insulin. Monitor Accu-Cheks. 6.Chronic obstructive pulmonary disease, oxygen dependent. We will continue with albuterol p.r.n. 7.Chronic respiratory failure. The patient requires O2 due to her chronic obstructive pulmonary dis ease. 8.Previous history of deep vein thrombosis and pulmonary embolus. The patient was on Xarelto in the past, however was taken off due to adverse reaction. 9.History of atrial fibrillation, status post pacemaker. 10.Gastroesophageal reflux disease, on proton pump inhibitor. 11.Major depressive disorder, single episode. Currently in remission. 12.Hypothyroidism. We will resume Synthroid. 13.Generalized osteoarthritis, stable. 14.Peripheral vascular disease, status post aortofemoral bypass. 15.Obesity. 16.Deep vein thrombosis prophylaxis, Lovenox. Plan: Admit the patient to Med-Surg, place as inpatient. Length Of Stay: Greater than 2 midnights. ROSEANN Voice ID: [id number]
[2019-01-25 06:28] LABS: Absolute Lymphocytes (CBC) 1.9 K/uL (0.7-4.9); Absolute Monocytes 0.6 K/uL (0.1-1.3); Absolute Neutrophil 5.2 K/uL (1.8-8.0); Eosinophils % 2.2 % (0-4.4); Hematocrit 52.6 % (36.0-45.0); Lymphocytes % 23.9 % (15.3-44.8); MPV 9.8 fL (7.6-11.3); Monocytes % 7.7 % (3.3-12.3); RBC Red Blood Cell Count 5.79 M/uL (3.86-4.86)
[2019-01-25 06:46] LABS: Albumin 3.5 g/dL (3.4-5.0); Bilirubin Total 0.6 mg/dL (0.2-1.0); Magnesium 2.2 mg/dL (1.8-2.4); Phosphorus 3.5 mg/dL (2.5-4.9); Potassium 4.4 mmol/L (3.5-5.1); Protein, Total 7.2 g/dL (6.4-8.2)
[2019-01-25] MEDS: INSULIN -REGULAR HUMAN 50 UNIT/0.5 ML ML SQ SCH ×4 (07:30→20:17)
[2019-01-25] MEDS: ARFORMOTEROL TARTRATE 15 MCG/2 ML VIAL.NEB NEB SCH ×2 (07:33→20:25)
[2019-01-25] MEDS: METOPROLOL TAR 25 MG TAB PO SCH ×2 (07:55→20:15)
[2019-01-25] MEDS: TRAMADOL HCL 50 MG TAB PO SCH ×2 (07:56→20:16)
[2019-01-25] MEDS: ASPIRIN 325 MG TAB PO SCH (08:00)
[2019-01-25] MEDS: ENOXAPARIN 80 MG/0.8 ML SQ SCH ×2 (08:00→20:14)
[2019-01-25] MEDS: GABAPENTIN 300 MG CAP PO SCH ×2 (08:00→20:16)
[2019-01-25] MEDS ORDERED: LISINOPRIL 10 MG TAB PO SCH (09:00)
[2019-01-25] MEDS ORDERED: SERTRALINE HCL 50 MG TAB PO SCH (09:00)
[2019-01-25] MEDS ORDERED: HOME MED 1 EA UNK (Famotidine [Famotidine] 40 MG) PO SCH (09:00)
[2019-01-25] MEDS: LOSARTAN POTASSIUM 50 MG TABLET PO SCH (09:43)
[2019-01-25] MEDS: FENOFIBRATE 160 MG TAB PO SCH (09:43)
[2019-01-25] MEDS: hydroCHLOROthiazide 25 MG TAB PO SCH (09:44)
--- NOTE | 2019-01-25 10:17 | EKG ---
Test Date: 2019-01-24 Test Time: 12:49:34 Field Operations Coordinator: MATTHWE MEASUREMENT RESULTS: Intervals: Rate: 70 MI: 90 QRSD: 146 QT: 402 QTc: 434 [place]: P: -13 MI: 90 QRS: 259 T: 54 INTERPRETIVE STATEMENTS: Electronic ventricular pacemaker Compared to ECG 04/27/2018 10:29:46 No significant changes Electronically Signed On 01-25-19 10:16:22 CDT by Amadeo Jin
[2019-01-25] MEDS: INSULIN GLARGINE 100 UNITS/ML SQ SCH ×2 (12:07→20:14)
--- NOTE | 2019-01-25 16:39 | PN ---
Date of Progress Note: 01/25/2019 Subjective: The patient seen and examined, chart reviewed, and case discussed with RN and Dr. Jin. The patient did have episode of chest pain yesterday after she went to the bathroom, improved with nitro. Medications: List reviewed. Physical Examination: Vital Signs: Temperature 96.7, heart rate 69, blood pressure 139/72, respirations 20, O2 96% on room air. General: Awake, alert, oriented x3, not in any acute distress, elderly female. CV: S1, S2. Regular rate and rhythm. Peripheral pulses present. Respiratory: Moving air well bilaterally. No wheezing or stridor. Gastrointestinal: Abdomen is soft, nontender, nondistended. Positive bowel sounds. Extremities: No clubbing, cyanosis, or edema. Neurologic: Nonfocal. Laboratory Data: Sodium 144, potassium 4.4, chloride 103, CO2 37, BUN 29, creatinine 1.19, glucose 89, calcium 9.7, phosphorus 3.5, magnesium 2.2. Troponin 0.46, 0.48, 0.55. Triglycerides 98, cholesterol 162, LDL 85, HDL 57. WBC 8, H and H 17.2, 52.6, platelets 217 neutrophils 65%. Assessment: An 83-year-old female with. 1. [id number] myocardial infarction. Continue chest pain guidelines. Plan for cardiac cath per cardiology. Appreciate Cardiology input. 2. Coronary artery disease, [place] artery and, [place] heart, status post stent with angina. We will continue aspirin. 3. Essential hypertension, not well controlled. Blood pressure was in the 200 initially, improved with medication adjustment. 4. Mixed hyperlipidemia. Lipid panel is normal. We will continue statin. Stable. 5. Diabetes mellitus type 2, insulin requiring with hyperglycemia. Continue sliding scale insulin and monitor Accu-Cheks. 6. Chronic obstructive pulmonary disease with chronic respiratory failure. The patient is O2 dependent. We will continue with albuterol p.r.n. 7. History of deep vein thrombosis and pulmonary embolism. No longer on anticoagulation. 8. History of atrial fibrillation, status post pacemaker. 9. Gastroesophageal reflux disease without esophagitis. Continue PPI. 10. Major depressive disorder, single episode. Currently in remission, stable. 11. Hypothyroidism. Continue Synthroid. 12. Generalized osteoarthritis, stable. 13. Peripheral vascular disease, status post aortofemoral bypass. 14. Obesity, body mass index 29.9. 15. Deep venous thrombosis prophylaxis with Lovenox therapeutic dose. /ESTEFANIA Voice ID: [id number] Report ID: [id number] MTDD
[2019-01-25] MEDS: SERTRALINE HCL 50 MG TAB PO SCH (20:15)
[2019-01-25] MEDS: ATORVASTATIN 80 MG TAB PO SCH (20:15)
[2019-01-26 05:56] LABS: Absolute Lymphocytes (CBC) 1.5 K/uL (0.7-4.9); Absolute Monocytes 0.5 K/uL (0.1-1.3); Absolute Neutrophil 4.2 K/uL (1.8-8.0); Basophils % 1.3 % (0-1.3); Eosinophils % 2.1 % (0-4.4); Hematocrit 47.9 % (36.0-45.0); Lymphocytes % 22.9 % (15.3-44.8); MPV 9.7 fL (7.6-11.3)
[2019-01-26 06:18] LABS: Albumin 3.1 g/dL (3.4-5.0); Bilirubin Total 0.6 mg/dL (0.2-1.0); Potassium 4.4 mmol/L (3.5-5.1); Protein, Total 6.5 g/dL (6.4-8.2)
[2019-01-26] MEDS: INSULIN -REGULAR HUMAN 50 UNIT/0.5 ML ML SQ SCH ×4 (07:30→20:47)
[2019-01-26] MEDS: ARFORMOTEROL TARTRATE 15 MCG/2 ML VIAL.NEB NEB SCH ×2 (08:03→20:00)
[2019-01-26] MEDS: GABAPENTIN 300 MG CAP PO SCH ×2 (08:22→21:12)
[2019-01-26] MEDS: FENOFIBRATE 160 MG TAB PO SCH (08:22)
[2019-01-26] MEDS: ASPIRIN 325 MG TAB PO SCH (08:22)
[2019-01-26] MEDS: ENOXAPARIN 80 MG/0.8 ML SQ SCH (08:22)
[2019-01-26] MEDS: hydroCHLOROthiazide 25 MG TAB PO SCH (08:23)
[2019-01-26] MEDS: FAMOTIDINE 20 MG TAB PO SCH (08:24)
[2019-01-26] MEDS: METOPROLOL TAR 25 MG TAB PO SCH ×2 (08:24→21:11)
[2019-01-26] MEDS: LOSARTAN POTASSIUM 50 MG TABLET PO SCH (08:24)
[2019-01-26] MEDS: TRAMADOL HCL 50 MG TAB PO SCH ×2 (08:25→21:11)
[2019-01-26] MEDS: INSULIN GLARGINE 100 UNITS/ML SQ SCH ×2 (09:00→21:10)
[2019-01-26] MEDS ORDERED: MORPHINE 2 MG/ML SYR IV PRN (09:25)
[2019-01-26] MEDS: LEVOTHYROXINE SOD 0.125 MG TAB PO SCH (09:39)
[2019-01-26] MEDS ORDERED: BIMATOPROST OPHTH DROPS/2.5 ML BTL OPTH SCH (09:45)
[2019-01-26] MEDS: NITROGLYCERIN 0.4 MG/TAB SL PRN (09:56)
--- NOTE | 2019-01-26 13:46 | CON ---
Date of Consultation: 01/25/2019 Reason For Consultation: Non-ST elevation myocardial infarction. History Of Present Illness: Ms. Arceo is an 83-year-old white woman. She is well known to our practi ce. She has a very extensive past medical history. She came in with chest pain radiating to her jaw and left arm with shortness of breath, diaphoresis with exertion that has happened 2-3 times over last 3 days. The last time her symptoms lasted more than 1 hour and she came in for further evalua tion and workup. She has 100% paced EKG, which is difficult to interpret. She had a troponin howeve r of 0.55. Her BNP was 2273. She was admitted for further workup. Ms. Arceo has a history of LAD st ent in the past. Past Medical History: Include, 1.History of coronary artery disease, status post LAD stent. 2.History of aortobifemoral bypass secondary to PAD. 3.History of hypertension. 4.Status post pacemaker. 5.Diastolic congestive heart failure. 6.Chronic renal insufficiency. 7.Chronic obstructive pulmonary disease. 8.Gastroesophageal reflux disease. 9.Dyslipidemia. 10.Neuropathy. 11.Diabetes. 12.History of atrial fibrillation. 13.History of depression. 14.Louis's cyst in the left knee. 15.History of right arm DVT. 16.History of hypothyroidism. 17.History of sleep apnea. Allergies: MORPHINE, TICLID AND SULFA. Review of Systems: Negative. Social History: Negative. Family History: Noncontributory. Medications: At home include Norvasc, Hyzaar, Zoloft, Brovana, aspirin, Pepcid, TriCor, Neurontin an d insulin. Physical Examination: General: Ms. Arceo did not complain of any chest pain. Today, she was in no acute distress. HEENT: Negative. Neck: Supple, without any bruit, lymphadenopathy, JVD, or thyromegaly. Chest: Clear to auscultation and percussion. Cardiac: Revealed a regular rhythm and rate with a tricuspid regurgitation murmur, S4 gallops. No r ubs. Abdomen: Benign. Extremities: Revealed no clubbing, cyanosis, or edema. She had some venous insufficiency changes. Skin: Dry and intact. Pulses were present bilaterally in the femoral area. Neurologic: She was intact. Impression And Plan: 1.The patient with history of coronary artery disease, status post LAD stent with symptoms that are consistent with acute coronary artery syndrome. Troponin positive consistent with non-ST elevation m yocardial infarction. I will plan a catheterization on her on Sunday to define her coronary anatomy. The patient understands the risk and the benefits of the procedure. She agrees to proceed. 2.Coronary artery disease, status post aortobifemoral bypass surgery in March of 2018. This was done because of a completely occluded left iliac and an 80% right common iliac. 3.Venous insufficiency with history of deep venous thrombosis in the right arm in the past. 4.History of atrial fibrillation that has resolved. 5.She is status post pacemaker, seems to be functioning properly. 6.History of chronic renal insufficiency that has resolved. 7.History of chronic diastolic congestive heart failure. 8.Chronic obstructive pulmonary disease. 9.Gastroesophageal reflux disease. 10.Dyslipidemia. 11.Neuropathy. 12.Diabetes. 13.Depression. 14.Hypothyroidism. 15.Sleep apnea. We will continue to follow Ms. Arceo after her catheterization. NADIYA/ESTEFANIA Voice ID: [id number] Report ID: [id number]
--- NOTE | 2019-01-26 14:16 | PN ---
Date of Progress Note: 01/26/2019 Ms. Arceo was admitted approximately 48 hours ago with a non-ST elevation myocardial infarction, has a history of LAD stent in the past, positive troponin, classic symptoms with chest pain radiating to t he jaw with exertion. Continues to have some chest pain when she moves around in her room. The plan is for a heart catheterization with possible intervention tomorrow. Understands the risk and the be nefits of the procedure. She agreed to proceed. NADIYA/ESTEFANIA Voice ID: [id number] Report ID: [id number]
--- NOTE | 2019-01-26 16:30 | PN ---
Date of Progress Note: 01/26/2019 Patient seen and examined. Chart reviewed and case discussed with RN and Dr. Jin. Patient still having some chest pain intermittently, improved with nitroglycerin. Medications: List reviewed. Physical Examination: Vital Signs: Temperature 98.2, heart rate 69, blood pressure 130/73, respirations 16, O2 of 97% on 1 L via nasal cannula. General: Awake, alert, oriented x3. Elderly female, obese, some mild distress due to chest pain. CV: S1, S2. Regular rate and rhythm. Peripheral pulses present. Respiratory: Moving air well bilaterally. No wheezing or stridor. Gastrointestinal: Abdomen is soft, nontender, nondistended. Positive bowel sounds. Extremities: No clubbing, cyanosis, or edema. Neurologic: Nonfocal. Speech is normal. Cranial nerves 2 through 12 intact grossly. Laboratory Data: Sodium 143, potassium 4.4, chloride 103, CO2 of 36, BUN 37, creatinine 1.5, glucose 114, calcium 9, WBC 6.4, H and H 15.8 and 47.9, platelets 210. Urine culture growing out mixed anu. Assessment And Plan: An 83-year-old female with: 1. [id number] myocardial infarction. We will continue chest pain guidelines. Pt needs cardiac catheterization. Patient continues to have some chest pain, improved with nitroglycerin. We will continue with morphine p.r.n. 2. Coronary artery disease, curyung artery and curyung heart, status post stent with angina. We will continue aspirin, statin, beta-heidi. 3. Essential hypertension, initially not well controlled, systolic was in the 200s. Blood pressure is now improved. 4. Mixed hyperlipidemia. Lipid panel is normal. Continue statin. 5. Diabetes mellitus type 2, insulin requiring with hyperglycemia. We will continue sliding scale insulin and monitor blood glucose levels. 6. Chronic obstructive pulmonary disease with chronic respiratory failure, patient is O2 dependent. Continue supplemental oxygen and albuterol as needed. 7. History of deep venous thrombosis and pulmonary embolism. No longer on anticoagulation. 8. History of atrial fibrillation status post pacemaker, currently in paced rhythm. 9. Gastroesophageal reflux disease without esophagitis. Continue PPI. 10. Major depressive disorder, single episode, currently in remission. 11. Hypothyroidism. Continue Synthroid. 12. Generalized osteoarthritis, stable. 13. Peripheral vascular disease status post aortofemoral bypass. 14. Obesity, body mass index of 29.9. 15. Deep venous thrombosis prophylaxis with Lovenox therapeutic dose. /ESTEFANIA Voice ID: [id number] Report ID: [id number] MTDD
[2019-01-26] MEDS: SERTRALINE HCL 50 MG TAB PO SCH (21:11)
[2019-01-26] MEDS: ATORVASTATIN 80 MG TAB PO SCH (21:11)
[2019-01-27] MEDS: LEVOTHYROXINE SOD 0.125 MG TAB PO SCH (01:54)
[2019-01-27 06:10] LABS: Absolute Lymphocytes (CBC) 1.4 K/uL (0.7-4.9); Absolute Monocytes 0.5 K/uL (0.1-1.3); Absolute Neutrophil 3.9 K/uL (1.8-8.0); Basophils % 0.7 % (0-1.3); Eosinophils % 2.5 % (0-4.4); Hematocrit 46.8 % (36.0-45.0); Lymphocytes % 22.8 % (15.3-44.8); MPV 9.8 fL (7.6-11.3); Monocytes % 7.9 % (3.3-12.3); RBC Red Blood Cell Count 5.15 M/uL (3.86-4.86)
[2019-01-27 06:32] LABS: Albumin 3.1 g/dL (3.4-5.0); Bilirubin Total 0.5 mg/dL (0.2-1.0); Potassium 4.5 mmol/L (3.5-5.1); Protein, Total 6.5 g/dL (6.4-8.2)
[2019-01-27] MEDS: INSULIN -REGULAR HUMAN 50 UNIT/0.5 ML ML SQ SCH ×4 (07:30→20:25)
[2019-01-27] MEDS: LOSARTAN POTASSIUM 50 MG TABLET PO SCH (09:00)
[2019-01-27] MEDS: FAMOTIDINE 20 MG TAB PO SCH (09:00)
[2019-01-27] MEDS: ASPIRIN 325 MG TAB PO SCH (09:00)
[2019-01-27] MEDS: hydroCHLOROthiazide 25 MG TAB PO SCH (09:00)
[2019-01-27] MEDS: INSULIN GLARGINE 100 UNITS/ML SQ SCH ×2 (09:00→20:32)
[2019-01-27] MEDS: TRAMADOL HCL 50 MG TAB PO SCH ×2 (09:00→20:20)
[2019-01-27] MEDS: FENOFIBRATE 160 MG TAB PO SCH (09:00)
[2019-01-27] MEDS: METOPROLOL TAR 25 MG TAB PO SCH ×2 (09:01→20:20)
[2019-01-27] MEDS: GABAPENTIN 300 MG CAP PO SCH ×2 (09:01→20:19)
[2019-01-27] MEDS: ARFORMOTEROL TARTRATE 15 MCG/2 ML VIAL.NEB NEB SCH ×2 (09:17→20:05)
--- NOTE | 2019-01-27 11:24 | ECHO ---
HEIGHT: 5 ft 6 in WEIGHT: 192 lb 12.8 oz DATE OF STUDY: 01/27/[address]: Dinh Tejada MD 2-DIMENSIONAL: YES M.MODE: YES DOPPLER: YES COLOR FLOW: YES TDS: NO PORTABLE: NO DEFINITY: NO BUBBLE STUDY: NO DIAGNOSIS: NSTEMI CARDIAC HISTORY: CATHERIZATION: YES SURGERY: YES PROSTHETIC VALVE: NO PACEMAKER: NO MEASUREMENTS (cm) DIASTOLIC (NORMALS) SYSTOLIC (NORMALS) IVSd 1.5 (0.6-1.2) LA Diam 4.1 (1.9-4.0) LVEF 50% LVIDd 4.0 (3.5-5.7) LVIDs 3.0 (2.0-3.5) %FS 25% LVPWd 1.8 (0.6-1.2) Ao Diam 2.7 (2.0-3.7) 2 DIMENSIONAL ASSESSMENT: RIGHT ATRIUM: DILATED LEFT ATRIUM: DILATED RIGHT VENTRICLE: PACEMAKER CATHETER LEFT VENTRICLE: LEFT VENTRICULAR HYPERTROPHY TRICUSPID VALVE: NORMAL MITRAL VALVE: MITRAL ANNULAR CALCIFICATION PULMONIC VALVE: NORMAL AORTIC VALVE: SCLEROSIS, 3 LEAFLET PERICARDIAL EFFUSION: NONE AORTIC ROOT: NORMAL LEFT VENTRICULAR WALL MOTION: NORMAL DOPPLER/COLOR FLOW: MILD MITRAL AND TRICUSPID REGURGITATION. MODERATE PULMONARY HYPERTENSION. ESTIMATED RIGHT VENTRICULAR SYSTOLIC PRESSURE 55 mmHg. NO AORTIC STENOSIS OR AORTIC REGURGITATION. COMMENTS: NORMAL LEFT VENTRICULAR EJECTION FRACTION. DILATED LEFT AND RIGHT ATRIUM. LEFT VENTRICULAR HYPERTROPHY. MITRAL ANNULAR CALCIFICATION. AORTIC SCLEROSIS WITH NO AORTIC STENOSIS OR AORTIC REGURGITATION. PACEMAKER IN RIGHT VENTRICLE. MILD MITRAL AND TRICUSPID REGURGITATION. MODERATE PULMONARY HYPERTENSION. ELEVATED RIGHT ATRIAL PRESSURE. ESTIMATED RIGHT ATRIAL PRESSURE 15 mmHg. TECHNOLOGIST: Florentin DE LA TORRE
[2019-01-27] MEDS: D50W 25 GM/50 ML SYRINGE IV PRN ×2 (11:50→16:26)
[2019-01-27] MEDS ORDERED: HEPA 1000U/500MLS 2,000 UNIT/1,000 ML BAG IV ONE (12:55)
[2019-01-27] MEDS ORDERED: NA CHLORIDE 0.9% 500 ML ONE (13:18)
[2019-01-27] MEDS ORDERED: HEPARIN 5000 UNIT/ML 1 ML VIAL ONE (13:31)
[2019-01-27] MEDS ORDERED: NITROGLYCERIN 100 MCG/ML SYR (for cath lab use only) IV ONE (13:32)
[2019-01-27] MEDS ORDERED: FENTANYL CITR 100 MCG/2 ML ONE (13:32)
[2019-01-27] MEDS ORDERED: MIDAZOLAM HCL 2 MG/2 ML INJ ONE (13:32)
[2019-01-27] MEDS ORDERED: NICARDIPINE HCL 25 MG/10 ML IV ONE (13:32)
[2019-01-27] MEDS ORDERED: NA CHLORIDE 0.9% 0 ML ONE (13:32)
[2019-01-27] MEDS ORDERED: ATROPINE SULF 1 MG/10 ML SYR IV ONE (13:32)
[2019-01-27] MEDS ORDERED: LIDOCAINE 1% MPF 30 ML VIAL ONE (13:56)
--- NOTE | 2019-01-27 15:24 | PN ---
Date of Progress Note: 01/27/2019 Subjective: The patient is seen and examined, chart reviewed, and case discussed with RN. The patie nt is going for cardiac catheterization. The patient had some episodes of chest pain, improved with nitro. Medications: Reviewed. Physical Examination: Vital Signs: Temperature 98.3, heart rate 69, blood pressure 121/66, respirations 16, O2 of 100% on 1 L via nasal cannula. General: Awake, alert, and oriented x3. Some mild distress due to pain. Obese female, BMI 31. CV: S1 and S2. Regular rate and rhythm. Peripheral pulses present. Respiratory: Moving air well bilaterally. No wheezing. Gastrointestinal: Abdomen is soft, nontende r, and nondistended. Positive bowel sounds. Extremities: No clubbing, cyanosis, or edema. Neurologic: Nonfocal. Laboratory Data: Sodium 143, potassium 4.5, chloride 103, CO2 of 37, BUN 37, creatinine 1.28, glucos e 82, calcium 8.8, and albumin 3.1. WBC 5.9, H and H 14.9 and 46.8, and platelets 188. Assessment And Plan: An 83-year-old female with, 1.Non-ST segment elevation myocardial infarction. We will continue chest pain guidelines. The bee ent was referred for cardiac catheterization today. Appreciate Cardiology input. 2.Coronary artery disease, [place] artery and [place] heart status post stent with angina. 3.Essential hypertension. Blood pressure improved. We will continue medications. 4.Mixed hyperlipidemia. Continue statin, stable. 5.Diabetes mellitus type 2, insulin requiring with hyperglycemia. Continue sliding scale insulin. 6.Chronic obstructive pulmonary disease, chronic respiratory failure. The patient is oxygen depende nt, currently on 1 L. Continue albuterol as needed. 7.History of deep venous thrombosis and pulmonary embolism. No longer on anticoagulation. 8.History of atrial fibrillation status post pacemaker, currently paced rhythm. 9.Gastroesophageal reflux disease without esophagitis. We will continue PPI. 10.Major depressive disorder, single episode. Currently in remission. 11.Hypothyroidism. Continue Synthroid. 12.Generalized osteoarthritis, stable. 13.Peripheral vascular disease status post aortofemoral bypass. 14.Obesity, BMI 31. 15.Deep venous thrombosis prophylaxis with Lovenox. SA/MODL Voice ID: [id number] Report ID: [id number]
[2019-01-27] MEDS ORDERED: ACETAMINOPHEN 325 MG TABLET PO PRN (15:26)
[2019-01-27] MEDS ORDERED: NA CHLORIDE 0.9% 1,000 ML IV SCH (16:00)
[2019-01-27 19:31] VITALS: BMI 31.1
[2019-01-27] MEDS: SERTRALINE HCL 50 MG TAB PO SCH (20:20)
[2019-01-27] MEDS: ATORVASTATIN 80 MG TAB PO SCH (20:20)
--- NOTE | 2019-01-28 01:39 | OP ---
Surgeon: Emir Armstrong MD Procedure: Left heart catheterization with coronary and left ventricular angiography. Findings: The patient's ejection fraction is normal. Left ventricular end-diastolic pressure is nor mal. Segmental wall motion is normal. No aortic valve gradient on pullback. Her coronary arteries are left dominant. There are stents in the mid LAD and proximal circumflex, both of which are totall y patent. There is no significant coronary stenosis. There is diffuse mild plaque. The recommendat ion is medical therapy for angina. Consider treatment with Ranexa. Procedure In Detail: The patient was brought to the cardiac slab puller in a fasting state sedated with Versed and fentanyl. We initially tried a radial approach. We were able to take a guidewire up to the bifurcation of the brachial artery, but we could not pass it beyond, there was a stenosis there, and rather than put a stent there, we elected to take the femoral approach. The right femoral artery was entered using an 18-gauge needle. She had been anesthetized with 1% lidocaine, sedated with Marian sed and fentanyl, and draped and prepared in the usual sterile fashion. A 4-Malian sheath was placed . We used a JL4 to angiogram left coronary, 3DRC to angiogram the diminutive right coronary, angled pigtail to angiogram the left ventricle. At the end of the procedure, the catheter was withdrawn ove r a wire. A sheath shot was done and the sheath had entered into the graft material, so we decided t o do a closure using manual pressure. No closure device was used. At the end of the procedure, ther e were no complications. Estimated Blood Loss: 15 cc. Embedded Systems Designer: Lauryn Romero. Complications: None. LILIANA/ESTEFANIA Voice ID: [id number] Report ID: [id number]
[2019-01-28] MEDS: LEVOTHYROXINE SOD 0.125 MG TAB PO SCH (05:23)
[2019-01-28] MEDS: INSULIN -REGULAR HUMAN 50 UNIT/0.5 ML ML SQ SCH ×2 (07:30→11:30)
[2019-01-28] MEDS: GABAPENTIN 300 MG CAP PO SCH (07:38)
[2019-01-28] MEDS: hydroCHLOROthiazide 25 MG TAB PO SCH (07:39)
[2019-01-28] MEDS: ASPIRIN 325 MG TAB PO SCH (07:41)
[2019-01-28] MEDS: FENOFIBRATE 160 MG TAB PO SCH (07:42)
[2019-01-28] MEDS: TRAMADOL HCL 50 MG TAB PO SCH (07:42)
[2019-01-28] MEDS: FAMOTIDINE 20 MG TAB PO SCH (07:42)
[2019-01-28] MEDS: LOSARTAN POTASSIUM 50 MG TABLET PO SCH (07:43)
[2019-01-28] MEDS: INSULIN GLARGINE 100 UNITS/ML SQ SCH (07:43)
[2019-01-28] MEDS: METOPROLOL TAR 25 MG TAB PO SCH (07:43)
[2019-01-28] MEDS: ARFORMOTEROL TARTRATE 15 MCG/2 ML VIAL.NEB NEB SCH (08:10)
--- NOTE | 2019-01-28 10:51 | P.DS ---
Admission Date: 01/24/19 Discharge Date: 01/28/19 Primary Care Provider: Dr. Dailey Disposition: ROUTINE DISCHARGE Discharge Condition: GOOD Reason for Admission: Chest pain Consultations: Cardiology Procedures: 01/27/19: ECHOCARDIOGRAM CARDIAC HISTORY: CATHERIZATION: YES SURGERY: YES PROSTHETIC VALVE: NO PACEMAKER: NO MEASUREMENTS (cm) DIASTOLIC (NORMALS) SYSTOLIC (NORMALS) IVSd 1.5 (0.6-1.2) LA Diam 4.1 (1.9-4.0) LVEF 50% LVIDd 4.0 (3.5-5.7) LVIDs 3.0 (2.0-3.5) %FS 25% LVPWd 1.8 (0.6-1.2) Ao Diam 2.7 (2.0-3.7) 2 DIMENSIONAL ASSESSMENT: RIGHT ATRIUM: DILATED LEFT ATRIUM: DILATED RIGHT VENTRICLE: PACEMAKER CATHETER LEFT VENTRICLE: LEFT VENTRICULAR HYPERTROPHY TRICUSPID VALVE: NORMAL MITRAL VALVE: MITRAL ANNULAR CALCIFICATION PULMONIC VALVE: NORMAL AORTIC VALVE: SCLEROSIS, 3 LEAFLET PERICARDIAL EFFUSION: NONE AORTIC ROOT: NORMAL LEFT VENTRICULAR WALL MOTION: NORMAL DOPPLER/COLOR FLOW: MILD MITRAL AND TRICUSPID REGURGITATION. MODERATE PULMONARY HYPERTENSION. ESTIMATED RIGHT VENTRICULAR SYSTOLIC PRESSURE 55 mmHg. NO AORTIC STENOSIS OR AORTIC REGURGITATION. COMMENTS: NORMAL LEFT VENTRICULAR EJECTION FRACTION. DILATED LEFT AND RIGHT ATRIUM. LEFT VENTRICULAR HYPERTROPHY. MITRAL ANNULAR CALCIFICATION. AORTIC SCLEROSIS WITH NO AORTIC STENOSIS OR AORTIC REGURGITATION. PACEMAKER IN RIGHT VENTRICLE. MILD MITRAL AND TRICUSPID REGURGITATION. MODERATE PULMONARY HYPERTENSION. ELEVATED RIGHT ATRIAL PRESSURE. ESTIMATED RIGHT ATRIAL PRESSURE 15 mmHg. Brief History of Present Illness: The patient is an 83-year-old female with past medical history of hypertension; hyperlipidemia; diabetes mellitus type 2; coronary artery disease, status post stents; COPD; history of DVT, PE; history of atrial fibrillation, status post pacemaker; peripheral arterial disease, status post aortofemoral bypass, who was in her usual state of health until 2 weeks prior to admission when the patient had chest pain that would wake her up in the early mornings. The patient stated the pain was substernal and sharp, but would dissipate after a little while. She is taking a daily aspirin. The patient does report elevated blood pressure more than usual with her blood pressure this morning in the 200s. The patient also reported some sharp chest pain that radiated to her left neck and jaw as well as to the middle of her back, associated with some nausea, but no diaphoresis, vomiting, fever, chills. The patient was then brought into the ER by her family members. The patient's symptoms were constant , moderate, and progressively worsening. In the ER, her workup revealed troponin level of 0.46, white blood cell count was normal. Imaging studies did not show any acute abnormalities. The patient's EKG did not show any ST elevations. She was then referred for admission. Dr. Jin was contacted by the ER, recommended Lovenox, and to admit the patient for further evaluation and treatment. When seen in the ER, she was awake, alert, oriented x3, in some mild distress, stating that her pain has improved. Hospital Course: Patient was admitted for a non ST elevation myocardial infarction. She was started on chest pain guidelines with beta-heidi, aspirin, statin and STEPHANIE- inhibitor. She was given nitro as needed. Cardiology was consulted. She was started on Lovenox 1 milligram/kilogram every 12 hr. Her troponins were elevated. She underwent a cardiac catheterization, with fairly normal coronary arteries in 2 patent stents. It was recommended by cardiology to continue medical management for angina. She was started on ranexa. She tolerated this medication well. Prescription will be sent to her pharmacy for an exit. She is recommended to follow up with cardiology in 1-2 weeks. She is also recommended to follow up with her primary care physician in 2-3 days. For her diabetes mellitus type 2, she was resumed on her home dosage of insulin along with a sliding scale insulin. No medication changes were made on discharge. For her chronic obstructive pulmonary disease, oxygen-dependent, she was continued on her home medications and breathing treatments. She was provided with oxygen as needed. She does have oxygen at home. Prior to discharge, she was on her home 2 L of oxygen, and in no acute respiratory distress. She does have a history of atrial fibrillation, she does have a pacemaker in place. This remained stable throughout the stay. She does have a history of major depressive disorder, in remission. Remained stable throughout the stay in regards to her depression. She also has peripheral vascular disease, status post aortofemoral bypass. This remained stable as well. No medication changes made at the time of discharge. Prior to discharge, she was alert oriented x3, in no acute distress and chest pain-free. Her diagnoses/treatment plan was discussed and explained to her in detail. All questions were answered and patient verbalized understanding. She was discharged home in a stable manner. Vital Signs/Physical Exam: Temp Pulse Resp BP Pulse Ox 97.5 F 70 18 186/89 H 92 01/28/19 08:00 01/28/19 08:00 01/28/19 08:00 01/28/19 08:00 01/28/19 08:00 General: Alert, In no apparent distress, Oriented x3 HEENT: Atraumatic, PERRLA, EOMI Neck: Supple, JVD not distended Respiratory: Clear to auscultation bilaterally, Normal air movement Cardiovascular: Regular rate/rhythm, Normal S1 S2 Gastrointestinal: Normal bowel sounds, No tenderness Musculoskeletal: No tenderness Integumentary: No rashes Neurological: Normal speech, Normal tone, Normal affect Lymphatics: No axilla or inguinal lymphadenopathy Laboratory Data at Discharge: WBC 5.9 K/uL (4.3-10.9) 01/27/19 05:46 Hgb 14.9 g/dL (12.0-15.0) 01/27/19 05:46 Hct 46.8 % (36.0-45.0) H 01/27/19 05:46 Plt Count 188 K/uL (152-406) 01/27/19 05:46 PT 11.6 SECONDS (9.5-12.5) 01/24/19 13:50 INR 0.98 01/24/19 13:50 Sodium 143 mmol/L (136-145) 01/27/19 05:46 Potassium 4.5 mmol/L (3.5-5.1) 01/27/19 05:46 BUN 37 mg/dL (7-18) H 01/27/19 05:46 Creatinine 1.28 mg/dL (0.55-1.3) 01/27/19 05:46 Glucose 82 mg/dL (74-106) 01/27/19 05:46 Phosphorus 3.5 mg/dL (2.5-4.9) 01/25/19 05:37 Magnesium 2.2 mg/dL (1.8-2.4) 01/25/19 05:37 Total Bilirubin 0.5 mg/dL (0.2-1.0) 01/27/19 05:46 AST 27 U/L (15-37) 01/27/19 05:46 ALT 22 U/L (12-78) 01/27/19 05:46 Alkaline Phosphatase 34 U/L (45-117) L 01/27/19 05:46 Troponin I 0.55 ng/mL (0.0-0.045) H* 01/25/19 00:59 Triglycerides 98 mg/dL (<150) 01/25/19 05:37 Cholesterol 162 mg/dL (<200) 01/25/19 05:37 HDL Cholesterol 57 mg/dL (40-60) 01/25/19 05:37 Cholesterol/HDL Ratio 2.84 01/25/19 05:37 Home Medications: Arformoterol Tartrate [Brovana] 1 aer IH BID 10/08/17 Famotidine 40 mg PO DAILY 10/08/17 Fenofibrate [Tricor*] 145 mg PO DAILY 10/08/17 Gabapentin [Neurontin] 600 mg PO BID 10/08/17 Losartan/Hydrochlorothiazide [Losartan-Hctz 100-25 mg Tab] 1 tab PO DAILY Tramadol HCl [Ultram] 50 mg PO TID 10/08/17 Aspirin 325 mg PO DAILY 02/09/18 Sertraline [Zoloft*] 50 mg PO DAILY 02/09/18 Amlodipine [Norvasc*] 5 mg PO DAILY 03/28/18 Bimatoprost [Lumigan Opthalmic Drops*] 1 drop EACH EYE DAILY 01/24/19 Insulin Detemir [Levemir] 10 units SQ BID 01/24/19 Levothyroxine Sodium [Synthroid] 125 mcg PO DAILY 01/25/19 Metoprolol Tartrate [Lopressor*] 25 mg PO BID #30 tab 01/28/19 Nitroglycerin [Nitrostat*] 0.4 mg SL UD PRN #15 tab 01/28/19 Ranolazine [Ranolazine ER] 500 mg PO BID #30 tab.er.12h 01/28/19 New Medications: Metoprolol Tartrate [Lopressor*] 25 mg PO BID #30 tab Nitroglycerin [Nitrostat*] 0.4 mg SL UD PRN #15 tab PRN Reason: Pain Scale 2-4 (Mild) Ranolazine [Ranolazine ER] 500 mg PO BID #30 tab.er.12h Patient Discharge Instructions: Please follow up with the primary care physician in 2-3 days. Please follow up with cardiology in 1-2 weeks. New medications: Ranexa, the medication for the heart. Nitroglycerin, sublingual tablets as needed for chest pain. Metoprolol, a beta heidi for the heart. Please return to the emergency room for worsening symptoms. Diet: AHA Activity: Ad reshma Time spent managing pt's care (in minutes): 55
[2019-01-28 12:12] VITALS: O2SAT 99
[2019-01-28 13:01] VITALS: BP 127/87; TEMP 97.7
--- NOTE | 2019-01-30 00:34 | PN ---
Date of Progress Note: 01/28/2019 Mrs. Arceo had come in with the chest pain, positive troponin, jaw pain. A catheterization was done y esterday by Dr. Armstrong revealing a patent LAD stent and no significant coronary artery disease. The patient overnight had no complaint. Telemetry showed no changes. The catheterization site is intact . She can go home today whenever it is okay with admitting physician. We will see her in the office in the next 2-4 weeks. NADIYA/ESTEFANIA Voice ID: [id number] Report ID: [id number]
== END 2019-01-28 12:34 | disposition home or self-care (01) | DRG 281 ==
LOC: ER 12:40 → ERHOLD 15:35 → 4TH 17:27
PROVIDERS: ADMIT Family Medicine; ATTEND Family Medicine
PROC: 4A023N7 Measurement of Cardiac Sampling and Pressure, Left Heart, Percutaneous Approach (ICD-10-PCS; principal; 2019-01-27)
PROC: B201YZZ Plain Radiography of Multiple Coronary Arteries using Other Contrast (ICD-10-PCS; 2019-01-27)
PROC: B205YZZ Plain Radiography of Left Heart using Other Contrast (ICD-10-PCS; 2019-01-27)
DX: I21.4 Non-ST elevation (NSTEMI) myocardial infarction (principal); J96.10 Chronic respiratory failure, unspecified whether with hypoxia or hypercapnia; E11.9 Type 2 diabetes mellitus without complications; J44.9 Chronic obstructive pulmonary disease, unspecified; I48.91 Unspecified atrial fibrillation; F32.9 Major depressive disorder, single episode, unspecified; I73.9 Peripheral vascular disease, unspecified; I25.10 Atherosclerotic heart disease of native coronary artery without angina pectoris; I10 Essential (primary) hypertension; K21.9 Gastro-esophageal reflux disease without esophagitis; E03.9 Hypothyroidism, unspecified; M19.90 Unspecified osteoarthritis, unspecified site; E66.9 Obesity, unspecified; Z68.31 Body mass index [BMI] 31.0-31.9, adult; E78.2 Mixed hyperlipidemia; Z95.5 Presence of coronary angioplasty implant and graft; Z86.718 Personal history of other venous thrombosis and embolism; Z86.711 Personal history of pulmonary embolism; Z88.2 Allergy status to sulfonamides; Z99.81 Dependence on supplemental oxygen; Z95.0 Presence of cardiac pacemaker
CPT/HCPCS: 36415; 71045; 80048; 80053; 80061; 80076; 81003; 81015; 82962; 83735; 83880; 84100; 84484; 85025; 85610; 87086; 87088; 93005; 93306; 93458; 94760; 96372; 99285; C1893; J0583; J1644; J1650; J2250; J2270; J2405; J3010; J7605

== ENCOUNTER 2019-03-09 00:02 | Emergency (ER) | payer OTHER, MEDICARE ==
--- OUTSIDE RECORDS SUMMARY | 2019-03-09 00:08 | XMS REPORT | Clinical Summary ---
:1935 Author Organization [facility] Address [address] [place] [address] Care Team Providers Name Role Phone Dayami [...] Randy Mcmanus PVDuglas (peripheral Billy vascular disease) ([facility]) MD Sayda 06/13/2018 Office Visit ARLETH Gallego (peripheral Billy vascular disease) ([facility]) MD Sayda (Primary Dx) 05/09/2018 Office Visit [...] 03/11/2018 Orders Only General Internal Medicine after 03/08/2018 Social History Tobacco Use Types Packs/Day Years [...] Not on file Implants Implanted Type Area Technology Lead Device Shelf Model / Identifier Expiration Serial / Lot Date Grft Vasc Gelsft Plus [id number] - [id number] Graft/Pa N/A: TERUMO: VASCUTEK 11/07/2020 [id number] / Implanted: Qty: 1 on 03/18/2018 by Billy Mcmanus MD [facility] [id number] / [id number] Procedures Procedure Name Priority Date/Time Associated Comments [...] 476 ms QTC Calculation(Bazett) 514 ms R Greenwood 261 degrees T Greenwood 69 degrees Electronic ventricular pacemaker No previous ECGs available ECG 12-LEAD Routine 03/11/2018 1:51 PM CDT after 03/08/2018 Results RHYTHM STRIP - SCAN (01/17/2019 2:21 PM CDT)Only the most recent of3 resultswithin the time period is included. Narrative Performed At Venous doppler leg, left (06/13/2018 11:49 AM CDT) Ejection Fraction [facility] Specimen Impressions Performed At [facility] Left Impression 1. There is no deep [...] PV LAB - Lower Extremities DVT Study [facility] Demographics Patient EDDIE SaucedoDate of Study 06/13/2018 82 Visit [id number] Female of 1935 Number Referring Billy Mcmanus, Room Number Physician Ophthalmic Surgical Assistant Thelma HindsInterpretingJ. Benson Pompa, T Physician , JOVITA Cooney. T, [facility] Procedure Type of Study: Veins: Lower Extremities [...] Lower Extremities DVT Study Demographics Patient Name EDDIE RICKS Date of Study 06/13/2018 Age 82 Visit Number [id number] Gender Female Date of 1935 Number Referring Billy Mcmanus, Room Number Physician Ophthalmic Surgical Assistant Thelma Hinds Interpreting Slime Pompa, T Physician , JOVITA Cooney. T, [facility] Procedure Type of Study: Veins: Lower Extremities [...] - 110 mg/dL [facility] [address] [address] Specimen Blood Performing Organization Address [facility]/Zipcode Phone Number [address] [address] [place] TRANSFUSION SERVICE REPORT - SCAN (04/23/2018 5:50 PM CDT)Only the most recent of3 resultswithin the time period is included. Narrative Performed At AFB culture + smear (04/22/2018 8:46 AM CDT)Only the most recent of2 resultswithin the time period is included. Result No acid-fast bacilli isolated in [facility] 42 days CENTER [facility]B Smear No acid fast bacilli seen [facility] Specimen Tissue - Groin, Right Performing Organization Address [facility]/[facility] Cent[facility]ode Phone Number [address] [address] [phone] CENTER Anaerobic culture (04/22/2018 8:46 AM CDT)Only the most recent of2 resultswithin the time period is included. Result No anaerobes isolated [facility] Specimen Tissue - Groin, Right Performing Organization Address [facility]/Zipcode Phone Number [address] [address] CENTER Surgically obtained culture + gram stain (04/22/2018 8:46 AM CDT)Only the most recent of2 resultswithin the time period is included. Result No growth [facility] Gram Stain Result No WBCs [facility] Gram Stain Result No organisms seen [facility] Specimen Tissue - Groin, Right Performing Organization Address [facility]/Zipcode Phone Number [address] [address] CENTER Fungus culture + smear (04/22/2018 8:46 AM CDT)Only the most recent of2 resultswithin the time period is included. Result No fungus isolated in 28 days [facility] Fungus Smear No fungi seen [facility] Specimen Tissue - Groin, Right Performing Organization Address [facility]/Zipcode Phone Number [facility] [address] [place] [address] CENTER Type and screen, automated (04/21/2018 10:27 PM CDT)Only the most recent of2 resultswithin the time period is included. ABO/RH AUTOMATED (BEAKER) O POSITIVE [facility] Ab Scrn NEGATIVE [facility] Specimen Blood Performing Organization Address City/[facility]/Zipcode Phone Number [facility] [address] [place] [address] CBC with platelet count + automated diff (04/21/2018 10:27 PM CDT)Only the most recent of15 resultswithin the time period is included. WBC 8.7 3.5 - 10.5 K/L [facility] RBC 4.77 3.93 - 5.22 M/L [facility] Hemoglobin 13.6 11.2 - 15.7 GM/DL [facility] Hematocrit 45.4 (H) 34.1 - 44.9 % [facility] MCV 95.2 (H) 79.4 - 94.8 fL [facility] MCH 28.5 25.6 - 32.2 pg [facility] MCHC 30.0 (L) 32.2 - 35.5 GM/DL [facility] RDW 15.2 (H) 11.7 - 14.4 % [facility] Platelets 267 150 - 450 K/CU MM [facility] MPV 11.2 9.4 - 12.3 fL [facility] nRBC 0 0 - 0 /100 WBC [facility] % Neutros 73 % [facility] % Lymphs 16 % [facility] % Monos 8 % [facility] % Eos 1 % [facility] % Baso 1 % [facility] # Neutros 6.38 (H) 1.56 - 6.13 K/L [facility] # Lymphs 1.37 1.18 - 3.74 K/L [facility] # Monos 0.73 (H) 0.24 - 0.36 K/L [facility] # Eos 0.12 0.04 - 0.36 K/L [facility] # Baso 0.08 0.01 - 0.08 K/L [facility] Immature Granulocytes-Relative 1 0 - 1 % [facility] Specimen Blood Performing Organization Address City/State/Zipcode Phone Number [address] [address] [place] Prothrombin time/INR (04/21/2018 10:27 PM CDT)Only the most recent of2 resultswithin the time period is included. Protime 14.0 11.7 - 14.7 seconds [facility] INR 1.1 <=5.9 [facility] Specimen Blood Narrative Performed At [facility] RECOMMENDED COUMADIN/WARFARIN INR THERAPY RANGES STANDARD DOSE: 2.0 - 3.0 Includes: PROPHYLAXIS for venous thrombosis, systemic embolization; TREATMENT for venous thrombosis and/or pulmonary embolus. HIGH RISK: Target INR is 2.5-3.5 for patients with mechanical heart valves. Performing Organization Address City/State/[facility] Centercode Phone Number [address] [address] [phone] [place] Comprehensive metabolic panel (04/21/2018 10:27 PM CDT)Only the most recent of2 resultswithin the time period is included. Protein, Total 7.5 6.0 - 8.3 gm/dL [facility] Albumin 3.8 3.5 - 5.0 g/dL [facility] Alkaline Phosphatase 53 40 - 150 U/L [facility] Total Bilirubin 0.3 0.2 - 1.2 mg/dL [facility] Sodium 138 136 - 145 meq/L [facility] Potassium 3.9 3.5 - 5.1 meq/L [facility] Chloride 101 98 - 107 meq/L [facility] CO2 28 22 - 29 meq/L [facility] BUN 22 (H) 7 - 21 mg/dL [facility] Creatinine 0.98 0.57 - 1.25 mg/dL [facility] Glucose 154 (H) 70 - 105 mg/dL [facility] Calcium 10.1 8.4 - 10.2 mg/dL [facility] AST 20 5 - 34 U/L [facility] ALT 12 6 - 55 U/L [facility] EGFR 54Comment: ESTIMATED GFR mL/min/1.73 sq m [facility] IS NOT ACCURATE [facility] CREATININE CLEARANCE IN PREDICTING GLOMERULAR FILTRATION RATE. ESTIMATED GFR IS NOT APPLICABLE FOR DIALYSIS PATIENTS. Specimen Blood Performing Organization Address City/State/Zipcode Phone Number [facility] [address] [place] [address] abdomen/pelvis with IV contrast (04/21/2018 3:44 AM CDT) Specimen Narrative Performed At FINAL REPORT [facility] HISTORY : Abd pain, fever, abscess [...] MD Report Verified Date/Time:04/21/2018 08:32:26 Reading Location: [facility] C0W Consult Reading Room Procedure Note Interface, [...] Report Verified Date/Time: 04/21/2018 08:32:26 Reading Location: [facility] B1 C013W Consult Reading Room Performing Organization Address City/State/Zipcode Phone Number [facility] Basic Metabolic Panel (04/20/2018 4:57 AM CDT)Only the most recent of13 resultswithin the time period is included. Sodium 142 136 - 145 meq/L [facility] Potassium 3.7 3.5 - 5.1 meq/L [facility] Chloride 102 98 - 107 meq/L [facility] CO2 30 (H) 22 - 29 meq/L [facility] BUN 22 (H) 7 - 21 mg/dL [facility] Creatinine 1.05 0.57 - 1.25 mg/dL [facility] Glucose 88 70 - 105 mg/dL [facility] Calcium 10.1 8.4 - 10.2 mg/dL [facility] EGFR 50Comment: ESTIMATED GFR IS mL/min/1.73 sq m [facility] NOT ACCURATE CREATININE [facility] CENTER CLEARANCE IN PREDICTING GLOMERULAR FILTRATION RATE. ESTIMATED GFR IS NOT APPLICABLE FOR DIALYSIS PATIENTS. Specimen Blood Performing Organization Address City/State/Zipcode Phone Number [address] [address] CENTER Blood culture (04/19/2018 11:29 AM CDT)Only the most recent of2 resultswithin the time period is included. Result No growth in 5 days [facility] Specimen Blood Performing Organization Address City/[facility] Centercode Phone Number [address] [address] CENTER TSH/Free T4 If Indicated (04/19/2018 11:20 AM CDT) TSH 2.75 0.35 - 4.94 uIU/mL [facility] Specimen Blood Performing Organization Address City/[facility]/Zipcode Phone Number [address] [address] [phone] CENTER Magnesium (04/19/2018 11:20 AM CDT)Only the most recent of6 resultswithin the time period is included. Magnesium 2.2 1.6 - 2.6 mg/dL [facility] Specimen Blood Performing Organization Address City/State/Zipcode Phone Number [facility] [address] [place] [address] [phone] CENTER Wound culture + gram stain (04/19/2018 8:38 AM CDT) Result PSEUDOMONAS AERUGINOSA (A) [facility] Result PSEUDOMONAS AERUGINOSA [facility] (A)Comment: of a second type MEDICAL CENTER Result KLEBSIELLA PNEUMONIAE (A) [facility] MEDICAL [facility] Result STAPHYLOCOCCUS, COAGULASE [facility] NEGATIVE (A) [facility]ENTER Result PSEUDOMONAS AERUGINOSA [facility] (A)Comment: of a third type MEDICAL CENTER Result STAPHYLOCOCCUS, COAGULASE [facility] NEGATIVE (A)Comment: of a MEDICAL CENTER second type Gram Stain Result <1+ WBCs [facility] Gram Stain Result <1+ gram negative rods [facility] Specimen Wound - Groin, Right Organism Antibiotic [...] aeruginosa Tobramycin <=2: Susceptible Performing Organization Address [facility] Phone Number [address] [address] CENTER Potassium-Stat Lab (03/25/2018 10:53 AM CDT)Only the most recent of5 resultswithin the time period is included. Potassium 3.0 (L) 3.6 - 5.5 meq/L [facility] Specimen Blood, Arterial Performing Organization Address City/[facility]/Zipcode Phone Number [address] [address] [place] Glucose-Stat Lab (03/25/2018 10:53 AM CDT)Only the most recent of6 resultswithin the time period is included. Glucose 116 (H) 70 - 110 mg/dL [facility] Specimen Blood, Arterial Performing Organization Address [facility] Centercode Phone Number [address] [address] [place] HGB/HCT (H&H)-Stat Lab (03/25/2018 10:53 AM CDT)Only the most recent of5 resultswithin the time period is included. Hemoglobin 11.2 (L) 12.0 - 15.0 g/dL [facility] Hematocrit 33.0 (L) 36.0 - 45.0 % [facility] Specimen Blood, Arterial Performing Organization Address [facility] Centercode Phone Number [address] [phone] [place] SPIN/CONCENTRATION CHARGE (03/25/2018 9:44 AM CDT) Concentration charged Done [facility] Specimen Body Fluid Performing Organization Address [facility] Phone Number [address] [phone] [place] XR spine lumbar complete 4 views min (03/23/2018 3:20 PM CDT) Specimen Narrative Performed At FINAL REPORT [facility] Lumbar spine. HISTORY: Acute back pain. [...] MD Report Verified Date/Time:03/23/2018 16:25:16 Reading Location: [facility] B1 C013X Ortho Consult Reading Room Procedure [...] Report Verified Date/Time: 03/23/2018 16:25:16 Reading Location: [facility] C013X Ortho Consult Reading Room Performing Organization Address City/State/Zipcode Phone Number [facility] XR chest 1 view portable / [...] MD Report Verified Date/Time:03/21/2018 08:03:21 Reading Location: [facility] Diagnostic Imaging Reading Room - [place] [address] Procedure Note Interface, External Ris In [...] Report Verified Date/Time: 03/21/2018 08:03:21 Reading Location: [facility] Diagnostic Imaging Reading Room - [place] [address] Performing Organization Address City/State/Zipcode Phone Number [facility] Hemoglobin A1c (03/20/2018 4:54 AM CDT) Hemoglobin A1C 6.0 4.3 - 6.1 % [facility] Specimen Blood Performing Organization Address City/State/Zipcode Phone Number [place] [phone] [place] [address] [phone] CENTER XR abdomen / KUB 1 view [...] MD Report Verified Date/Time:03/19/2018 15:02:35 Reading Location: [facility] Radiology Reading Room Procedure Note Interface, External [...] Report Verified Date/Time: 03/19/2018 15:02:35 Reading Location: [facility] Radiology Reading Room Performing Organization Address City/State/Zipcode Phone Number [facility] Blood gas, arterial (03/19/2018 3:45 AM CDT)Only the most recent of8 resultswithin the time period is included. pH, Arterial 7.37 7.35 - 7.45 [facility] pCO2, Arterial 47 (H) 35 - 45 mmHg [facility] pO2, Arterial 68 (L) 80 - 90 mmHg [facility] O2 Sat, Arterial 92.4 (L) 96.0 - 97.0 % [facility] HCO3, Arterial 26 21 - 29 mmol/L [facility] Base Excess, Arterial 0.6 -2.0 - 3.0 mmol/L [facility] Patient Temperature 37.4 C [facility] FIO2 40.0 % [facility] Specimen Blood, Arterial Performing Organization Address [facility] Centercode Phone Number [address] [address] [phone] CENTER Sputum Culture + Gram Stain (03/18/2018 7:44 PM CDT) Result 3+ Normal respiratory anu [facility] Gram Stain Result <1+ WBCs [facility] Gram Stain Result 10-15 epithelial cells [facility] Gram Stain Result 1+ gram positive cocci in [facility] Specimen Sputum Performing Organization Address City/[facility]/Zipcode Phone Number [address] [address] [phone] CENTER Potassium (03/18/2018 7:20 PM CDT) Potassium 3.7 3.5 - 5.1 meq/L [facility] Specimen Blood Narrative Performed At 8 hours after PO replacement completed [facility] Performing Organization Address City/[facility] Centercode Phone Number [address] [address] [place] Calcium, Ionized (03/18/2018 11:51 AM CDT)Only the most recent of4 resultswithin the time period is included. Calcium, Ion 1.25 1.12 - 1.27 mmol/L [facility] pH, Blood 7.37 [facility] Specimen Blood Performing Organization Address [facility] Centercomt Phone Number [address] [address] [phone] [place] Lactic acid, venous, whole blood (03/18/2018 11:51 AM CDT) Lactate, Venous 1.0Comment: Specimen 0.5 - 2.2 mmol/L [facility] slightly hemolyzed [facility] Specimen Blood Narrative Performed At [facility] Effective 02/09/2016: Units/Reference Range Change New: 0.5-2.2 mmol/LPrevious: 5-20 mg/dL Performing Organization Address City/[facility] Centercomt Phone Number [address] [address] [place] Phosphorus (03/18/2018 11:51 AM CDT) Phosphorus 3.9 2.3 - 4.7 mg/dL [facility] Specimen Blood Performing Organization Address City/[facility] Centercode Phone Number [address] [address] [place] Tissue Exam (03/18/2018 10:46 AM CDT) Case Report Surgical Pathology Report Case: [id number] [facility] Authorizing Provider:Billy Mcmanus, Collected: 03/18/2018 1046 [facility] Ordering Location: [facility] Received: 03/18/2018 1131 [employer]IOPERATIVE SERVICES Pathologist: Chris Caraballo MD Specimen:Plaque, AORTIC PLAQUE DIAGNOSIS AORTA, ATHERECTOMY: [facility] CALCIFIC ATHEROSCLEROTIC PLAQUE [facility] Signing Pathologist Direct Phone Line: [phone] CPT Code(s) 68722; 727[address] [facility] CLINICAL HISTORY PAD [facility] SPECIMEN SOURCE Aortic plaque [facility] GROSS DESCRIPTION Received in saline labeled "plaque", description "aortic plaque" is a 4.5 x 3.5 x 0.6 cm aggregate of felix-white to yellow-panchal, rubbery, calcified fibrous tissue. [facility] Representative sections are submitted in cassette A1 for decalcification. DB/ ew MICROSCOPIC DESCRIPTION Performed [facility] Specimen Tissue Performing Organization Address City/[facility] Centercom[facility] Phone Number [address] [address] [phone] [place] Sodium Na-Stat Lab (03/18/2018 10:29 AM CDT)Only the most recent of3 resultswithin the time period is included. Sodium 141 135 - 148 meq/L [facility] Specimen Blood, Arterial Performing Organization Address [facility] Centercomt Phone Number [address] [address] [place] Platelet Aggregation: Function Screen (03/18/2018 7:01 AM CDT) Weak ADP 63 60 - 91 % [facility] Plt. Function Screen 60-100% indicates [facility] Interpretation normal platelet [facility] function Pathologist: Teresa De León MD [facility] (electronic [facility] signature) Platelets 209 150 - 450 K/CU MM [facility] Specimen Blood Narrative Performed At for patients on clopidogrel in past two weeks [facility] Performing Organization Address City/[facility]/Zipcode Phone Number [facility] [address] [place] [address] CENTER XR chest 2 views (03/11/2018 2:40 PM CDT) Specimen Narrative Performed At FINAL REPORT [facility] Chest two views INDICATION: Preoperative exam. Peripheral arterial disease. COMPARISON: None available IMPRESSION: There is minimal basilar atelectasis or scarring. There is no focal consolidation, vascular congestion, pleural effusion, or pneumothorax. The cardiac silhouette is enlarged. Mild aortic ectasia/tortuosity and calcification, osteopenia, degenerative spine changes, and a left chest pacemaker are noted. Signed: Velma Still MD Report Verified Date/Time:03/11/2018 14:44:31 Reading Location: [facility] C013 Consult Reading Room Procedure Note Interface, [...] Verified Date/Time: 03/11/2018 14:44:31 Reading Location: [facility] B1 C013W Consult Reading Room Performing Organization Address [facility] Centercode Phone Number [facility] aPTT (03/11/2018 2:13 PM CDT) PTT 27.8 22.5 - 36.0 seconds [facility] Specimen Blood Performing Organization Address [facility]/Zipcode Phone Number [facility] [address] [place] [address] [place] Electrocardiogram, 12-lead (03/11/2018 1:51 PM CDT) Specimen Narrative Performed At Ventricular Rate 70 BPM GE MUSE Atrial Rate 72 BPM QRS Duration 186 ms Q-T Interval 476 ms QTC Calculation(Bazett) 514 ms R Greenwood 261 degrees T Greenwood 69 degrees Atrial fibrillation Electronic ventricular pacemaker No previous ECGs available Confirmed by Ruby MCWILLIAMS MICHAEL ([id number]) on 03/12/2018 8:38:53 AM Procedure Note Interface, External Ris In - 03/12/2018 8:39 AM CDT Ventricular Rate 70 BPM Atrial Rate 72 BPM QRS Duration 186 ms Q-T Interval 476 ms QTC Calculation(Bazett) 514 ms R Greenwood 261 degrees T Greenwood 69 degrees Atrial fibrillation Electronic ventricular pacemaker No previous ECGs available Confirmed by Ruby MCWILLIAMS MICHAEL ([id number]) on 03/12/2018 8:38:53 AM Performing Organization Address City/State/Zipcode Phone Number [facility] BRAY after 03/08/2018 Insurance Payer Benefit Plan / Group Subscriber ID Type Phone Address MEDICARE MEDICARE A B xxxxxxxxxx Medicare MCR SUPPLEMENT/INDIVIDUAL AARP/[facility] xxxxxxxxxxx [facility] Advance Directives For more information, please contact:[address] [phone] Code Status Date Activated Date Inactivated Comments Full Code 04/21/2018 6:51 PM 04/25/2018 7:56 PM This code status was determined by: Patient Full Code 03/18/2018 5:47 AM 03/28/2018 6:27 PM This code status was determined by: Patient
--- OUTSIDE RECORDS SUMMARY | 2019-03-09 00:11 | XMS REPORT ---
:1935 [facility] Address [address] [place] [address] Dr. Aguilar [address] [place] [id number] Care Team Providers Name Role Phone GABRIEL [...] Value Reference Range Comments CULTURE (BEAKER) (test keao=1412) No acid-fast bacilli isolated in 42 days AFB SMEAR (BEAKER) (test sqmd=956) No acid fast bacilli seen FUNGUS CULTURE + [id number] 17:08:00 Test Item Value Reference Range Comments CULTURE (BEAKER) (test No fungus isolated in 28 days mbxc=5847) FUNGUS SMEAR (BEAKER) (test No fungi seen lxzg=1006) AFB CULTURE + [id number] 02:56:00 Test Item Value Reference Range Comments CULTURE (BEAKER) (test No acid-fast bacilli isolated ujst=1812) in 42 days AFB SMEAR (BEAKER) (test No acid fast bacilli seen xpim=405) ANAEROBIC [id number] 17:45:00 Test Item Value Reference Range Comments CULTURE (BEAKER) (test tnie=4449) No anaerobes isolated BLOOD [id number] 17:43:00 Test Item Value Reference Range Comments CULTURE (BEAKER) (test rjmg=0778) No growth in 5 days BLOOD [id number] 17:43:00 Test Item Value Reference Range Comments CULTURE (BEAKER) (test hxys=8304) No growth in 5 days POCT-GLUCOSE [id number] 12:38:00 Test Item Value Reference Range Comments POC-GLUCOSE METER (BEAKER) 147 mg/dL 70-[address] [facility] [address] (test iviu=7970) [facility] [address] WOUND CULTURE + GRAM [id number] 10:46:00 Test Item Value Reference Range Comments CULTURE (Stockpulse) (test PSEUDOMONAS 4+ Pseudomonas iizw=9090) AERUGINOSA aeruginosa Amikacin (test code=1) Susceptible 0-16 , Resistant <0 or >16 Aztreonam (test Susceptible 0-8 , code=32) Resistant <0 or >8 Cefepime (test code=51) Susceptible 0-8 , Resistant <0 or >8 Ceftazidime (test Susceptible 0-8 , code=27) Resistant <0 or >8 Ciprofloxacin (test Susceptible 0-1 , code=7) Resistant <0 or >1 Doripenem (test Susceptible 0-2 , eahm=090) Resistant <0 or >2 Gentamicin (test Susceptible [...] , code=25) Resistant <0 or >4 CULTURE (Stockpulse) (test PSEUDOMONAS 4+ Pseudomonas ymkt=3683) AERUGINOSA aeruginosaof a second type Amikacin (test code=1) Susceptible 0-16 , Resistant <0 or >16 Aztreonam (test Susceptible 0-8 , code=32) Resistant <0 or >8 Cefepime (test code=51) Susceptible 0-8 , Resistant <0 or >8 Ceftazidime (test Susceptible 0-8 , code=27) Resistant <0 or >8 Ciprofloxacin (test Susceptible 0-1 , code=7) Resistant <0 or >1 Doripenem (test Susceptible 0-2 , vjzl=321) Resistant <0 or >2 Gentamicin (test Susceptible [...] CULTURE (BEAKER) (test KLEBSIELLA PNEUMONIAE <1+ Klebsiella nddy=4023) pneumoniae Amikacin (test code=1) Ampicillin + Sulbactam (test code=6) Aztreonam (test code=32) Cefepime (test code=51) Cefoxitin (test code=68) Ceftazidime (test code=27) Ceftriaxone (test code=52) Ertapenem (test code=38) Gentamicin (test code=18) Levofloxacin (test code=22) Meropenem (test code=34) Nitrofurantoin (test code=23) Piperacillin + Tazobactam (test code=29) Tetracycline (test code=2) Tobramycin (test code=25) Trimethoprim + Sulfamethoxazole (test code=47) CULTURE (BEAKER) (test COAGULASE NEGATIVE 1+ Coagulase negative pchu=1141) STAPHYLOCOCCUS Staphylococcus Clindamycin (test code=10) Erythromycin (test code=4) Levofloxacin (test code=22) Linezolid (test code=40) Nitrofurantoin (test code=23) Oxacillin (test code=14) Rifampin (test code=43) Tetracycline (test code=2) Trimethoprim + Sulfamethoxazole (test code=47) Vancomycin (test Susceptible 0-4 , code=13) Resistant <0 or >4 CULTURE (BEAKER) (test PSEUDOMONAS 4+ Pseudomonas ycic=8028) AERUGINOSA aeruginosaof a third type Amikacin (test code=1) Susceptible 0-16 , Resistant <0 or >16 Aztreonam (test Susceptible 0-8 , code=32) Resistant <0 or >8 Cefepime (test code=51) Susceptible 0-8 , Resistant <0 or >8 Ceftazidime (test Susceptible 0-8 , code=27) Resistant <0 or >8 Ciprofloxacin (test Susceptible 0-1 , code=7) Resistant <0 or >1 Doripenem (test Susceptible 0-2 , sgap=343) Resistant <0 or >2 Gentamicin (test Susceptible [...] >4 CULTURE (BEAKER) (test <1+ Coagulase negative gtpl=7883) Staphylococcusof a second type GRAM STAIN RESULT <1+ WBCs (BEAKER) (test gnfw=8041) GRAM STAIN RESULT <1+ gram negative (BEAKER) (test rods jlsp=402420) SURGICALLY OBTAINED CULTURE + GRAM [id number] 08:30:00 Test Item Value Reference Range Comments CULTURE (BEAKER) (test alop=3530) No growth GRAM STAIN RESULT (BEAKER) (test No WBCs jqjk=3847) GRAM STAIN RESULT (BEAKER) (test No organisms seen uyba=47981) POCT-GLUCOSE [id number] 07:23:00 Test Item Value Reference Range Comments POC-GLUCOSE METER (BEAKER) 97 mg/dL 70-110 TESTED AT [address] (test jrno=9555) [facility] [address] POCT-GLUCOSE [id number] 22:04:00 Test Item Value Reference Range Comments POC-GLUCOSE METER (BEAKER) 177 mg/dL 70-110 TESTED AT [address] (test ffll=7187) [facility] [address] POCT-GLUCOSE [id number] 17:38:00 Test Item Value Reference Range Comments POC-GLUCOSE METER (BEAKER) 232 mg/dL 70-110 TESTED AT [address] (test aygx=1292) [facility] [address] POCT-GLUCOSE [id number] 12:40:00 Test Item Value Reference Range Comments POC-GLUCOSE METER (BEAKER) 139 mg/dL 70-110 TESTED AT [address] (test lfcc=6531) [facility] [address] POCT-GLUCOSE [id number] 07:47:00 Test Item Value Reference Range Comments POC-GLUCOSE METER (BEAKER) 96 mg/dL 70-110 TESTED AT [address] (test kiks=5829) [facility] [address] POCT-GLUCOSE [id number] 04:52:00 Test Item Value Reference Range Comments POC-GLUCOSE METER (BEAKER) 112 mg/dL 70-110 TESTED AT [address] (test mfld=7294) [place] [id number] POCT-GLUCOSE [id number] 23:28:00 Test Item Value Reference Range Comments POC-GLUCOSE METER (BEAKER) 114 mg/dL 70-110 TESTED AT [address] (test jnfo=5138) [place] [id number] POCT-GLUCOSE [id number] 17:12:00 Test Item Value Reference Range Comments POC-GLUCOSE METER (BEAKER) 155 mg/dL 70-110 TESTED AT [address] (test ygwg=4769) [facility] [address] POCT-GLUCOSE [id number] 12:17:00 Test Item Value Reference Range Comments POC-GLUCOSE METER (BEAKER) 163 mg/dL 70-110 TESTED AT [address] (test itbc=3548) [place] [id number] FUNGUS CULTURE + [id number] 09:29:00 Test Item Value Reference Range Comments CULTURE (BEAKER) (test No fungus isolated in 28 days icwi=4716) FUNGUS SMEAR (BEAKER) (test <1+ hyphal elements seen ewyt=8383) See smear results.POCT-GLUCOSE [id number] 21:47:00 Test Item Value Reference Range Comments POC-GLUCOSE METER (BEAKER) 211 mg/dL 70-110 TESTED AT [address] (test fhlc=4933) [facility] [address] POCT-GLUCOSE [id number] 17:07:00 Test Item Value Reference Range Comments POC-GLUCOSE METER (BEAKER) 160 mg/dL 70-110 TESTED AT [address] (test czqj=4251) [place] [id number] POCT-GLUCOSE [id number] 11:56:00 Test Item Value Reference Range Comments POC-GLUCOSE METER (BEAKER) 108 mg/dL 70-[address] [facility] [address] (test vaib=8868) [facility] [address] COMPREHENSIVE METABOLIC [id number] 23:00:00 Test Item Value Reference Range Comments TOTAL PROTEIN (BEAKER) 7.5 gm/dL 6.0-8.3 (test fesf=251) ALBUMIN (BEAKER) (test 3.8 g/dL 3.5-5.0 rzye=2300) ALKALINE PHOSPHATASE 53 U/L 40-150 (BEAKER) (test cljc=862) BILIRUBIN TOTAL (BEAKER) 0.3 mg/dL 0.2-1.2 (test cnuo=002) SODIUM (BEAKER) (test 138 meq/L 136-145 bpqx=493) POTASSIUM (BEAKER) (test 3.9 meq/L 3.5-5.1 oujg=215) CHLORIDE (BEAKER) (test 101 meq/L 98-107 uowf=402) CO2 (BEAKER) (test 28 meq/L 22-29 nshl=978) BLOOD UREA NITROGEN 22 mg/dL 7-21 (BEAKER) (test uiuc=201) CREATININE (BEAKER) (test 0.98 mg/dL 0.57-1.25 beos=291) GLUCOSE RANDOM (BEAKER) 154 mg/dL 70-105 (test efjf=340) CALCIUM (BEAKER) (test 10.1 mg/dL 8.4-10.2 eibj=278) AST (SGOT) (BEAKER) (test 20 U/L 5-34 wwos=526) ALT (SGPT) (BEAKER) (test 12 U/L 6-55 aykk=552) EGFR (BEAKER) (test 54 mL/min/1.73 sq m ESTIMATED GFR IS NOT krap=5698) ACCURATE CREATININE CLEARANCE IN PREDICTING GLOMERULAR FILTRATION RATE. ESTIMATED GFR IS NOT APPLICABLE FOR DIALYSIS PATIENTS. PROTHROMBIN TIME/[id number] 22:52:00 Test Item Value Reference Range Comments PROTIME (BEAKER) (test rzlt=128) 14.0 seconds 11.7-14.7 INR (BEAKER) (test vevc=782) 1.1 <=5.9 RECOMMENDED COUMADIN/WARFARIN INR THERAPY RANGESSTANDARD DOSE: 2.0 - 3.0 Includes: PROPHYLAXIS forvenous thrombosis, systemic embolization; TREATMENT for venous thrombosis and/or pulmonary embolus.HIGH RISK: Target INR is 2.5-3.5 for patients with mechanical heart valves.CBC W/PLT COUNT & AUTO [id number] 22:51:00 Test Item Value Reference Range Comments WHITE BLOOD CELL COUNT (BEAKER) (test kbod=901) 8.7 K/ L 3.5-10.5 RED BLOOD CELL COUNT (BEAKER) (test bylq=412) 4.77 M/ L 3.93-5.22 HEMOGLOBIN (BEAKER) (test xqyw=005) 13.6 GM/DL 11.2-15.7 HEMATOCRIT (BEAKER) (test srpy=994) 45.4 % 34.1-44.9 MEAN CORPUSCULAR VOLUME (BEAKER) (test tfgi=427) 95.2 fL 79.4-94.8 MEAN CORPUSCULAR HEMOGLOBIN (BEAKER) (test 28.5 pg 25.6-32.2 uhox=369) MEAN CORPUSCULAR HEMOGLOBIN CONC (BEAKER) (test 30.0 GM/DL 32.2-35.5 bvxs=364) RED CELL DISTRIBUTION WIDTH (BEAKER) (test 15.2 % 11.7-14.4 iloc=728) PLATELET COUNT (BEAKER) (test evno=595) 267 K/CU MM 150-450 MEAN PLATELET VOLUME (BEAKER) (test pdbk=353) 11.2 fL 9.4-12.3 NUCLEATED RED BLOOD CELLS (BEAKER) (test 0 /100 WBC 0-0 pzsi=626) NEUTROPHILS RELATIVE PERCENT (BEAKER) (test 73 % yuty=742) LYMPHOCYTES RELATIVE PERCENT (BEAKER) (test 16 % qgjf=355) MONOCYTES RELATIVE PERCENT (BEAKER) (test 8 % qcus=361) EOSINOPHILS RELATIVE PERCENT (BEAKER) (test 1 % xzsh=534) BASOPHILS RELATIVE PERCENT (BEAKER) (test 1 % deim=236) NEUTROPHILS ABSOLUTE COUNT (BEAKER) (test 6.38 K/ L 1.56-6.13 webl=441) LYMPHOCYTES ABSOLUTE COUNT (BEAKER) (test 1.37 K/ L 1.18-3.74 nziw=654) MONOCYTES ABSOLUTE COUNT (BEAKER) (test 0.73 K/ L 0.24-0.36 zwlp=546) EOSINOPHILS ABSOLUTE COUNT (BEAKER) (test 0.12 K/ L 0.04-0.36 izte=639) BASOPHILS ABSOLUTE COUNT (BEAKER) (test 0.08 K/ L 0.01-0.08 oskn=232) IMMATURE GRANULOCYTES-RELATIVE PERCENT (BEAKER) 1 % 0-1 (test tqpc=3640) POCT-GLUCOSE [id number] 22:47:00 Test Item Value Reference Range Comments POC-GLUCOSE METER (BEAKER) 196 mg/dL 70-110 TESTED AT [address] (test srqa=0203) [place] [address] POCT-GLUCOSE [id number] 17:34:00 Test Item Value Reference Range Comments POC-GLUCOSE METER (BEAKER) 261 mg/dL 70-110 TESTED AT [address] (test wenk=8885) [place] [address] POCT-GLUCOSE [id number] 16:52:00 Test Item Value Reference Range Comments POC-GLUCOSE METER (BEAKER) 254 mg/dL 70-110 TESTED AT [address] (test nkmz=9837) [place] [address] POCT-GLUCOSE [id number] 12:24:00 Test Item Value Reference Range Comments POC-GLUCOSE METER (BEAKER) 168 mg/dL 70-110 TESTED AT [address] (test aatl=6676) [place] [address] POCT-GLUCOSE [id number] 08:52:00 Test Item Value Reference Range Comments POC-GLUCOSE METER (BEAKER) 139 mg/dL 70-110 TESTED AT [address] (test wxnm=7121) [place] [address] CT, [id number] 08:32:00S/p aortic-bilateral femoral bypass with right groin [...] MDReport Verified Date/Time: 04/21/2018 08:32:26 Reading Location: [facility] [id number] Consult Reading Room 08: 32 AMPOCT-GLUCOSE [id number] 21:51:00 Test Item Value Reference Range Comments POC-GLUCOSE METER (BEAKER) 132 mg/dL 70-110 TESTED AT [address] (test nheb=0401) [place] [address] POCT-GLUCOSE [id number] 16:54:00 Test Item Value Reference Range Comments POC-GLUCOSE METER (BEAKER) 126 mg/dL 70-110 TESTED AT [address] (test lvqv=5849) [place] [address] POCT-GLUCOSE [id number] 12:41:00 Test Item Value Reference Range Comments POC-GLUCOSE METER (BEAKER) 163 mg/dL 70-110 TESTED AT [address] (test qnlq=3608) [place] [address] POCT-GLUCOSE [id number] 07:37:00 Test Item Value Reference Range Comments POC-GLUCOSE METER (BEAKER) 96 mg/dL 70-110 TESTED AT [address] (test bvjm=3016) [place] [address]30 BASIC METABOLIC [id number] 06:21:00 Test Item Value Reference Range Comments SODIUM (BEAKER) (test 142 meq/L 136-145 dwjd=859) POTASSIUM (BEAKER) (test 3.7 meq/L 3.5-5.1 jbmz=859) CHLORIDE (BEAKER) (test 102 meq/L 98-107 ggkv=606) CO2 (BEAKER) (test 30 meq/L 22-29 utly=755) BLOOD UREA NITROGEN 22 mg/dL 7-21 (BEAKER) (test tyzq=301) CREATININE (BEAKER) (test 1.05 mg/dL 0.57-1.25 nfqc=647) GLUCOSE RANDOM (BEAKER) 88 mg/dL 70-105 (test pegz=203) CALCIUM (BEAKER) (test 10.1 mg/dL 8.4-10.2 ybza=011) EGFR (BEAKER) (test 50 mL/min/1.73 sq m ESTIMATED GFR IS NOT rjnp=8030) ACCURATE CREATININE CLEARANCE IN PREDICTING GLOMERULAR FILTRATION RATE. ESTIMATED GFR IS NOT APPLICABLE FOR DIALYSIS PATIENTS. CBC W/PLT COUNT & AUTO [id number] 05:46:00 Test Item Value Reference Range Comments WHITE BLOOD CELL COUNT (BEAKER) (test ekkw=114) 7.0 K/ L 3.5-10.5 RED BLOOD CELL COUNT (BEAKER) (test ggko=176) 5.52 M/ L 3.93-5.22 HEMOGLOBIN (BEAKER) (test rbzu=747) 15.6 GM/DL 11.2-15.7 HEMATOCRIT (BEAKER) (test kjly=199) 53.3 % 34.1-44.9 MEAN CORPUSCULAR VOLUME (BEAKER) (test pvap=551) 96.6 fL 79.4-94.8 MEAN CORPUSCULAR HEMOGLOBIN (BEAKER) (test 28.3 pg 25.6-32.2 jrju=062) MEAN CORPUSCULAR HEMOGLOBIN CONC (BEAKER) (test 29.3 GM/DL 32.2-35.5 gadl=494) RED CELL DISTRIBUTION WIDTH (BEAKER) (test 15.3 % 11.7-14.4 ujun=064) PLATELET COUNT (BEAKER) (test sgan=887) 257 K/CU MM 150-450 MEAN PLATELET VOLUME (BEAKER) (test lxpb=276) 11.5 fL 9.4-12.3 NUCLEATED RED BLOOD CELLS (BEAKER) (test 0 /100 WBC 0-0 wiuc=137) NEUTROPHILS RELATIVE PERCENT (BEAKER) (test 58 % nfby=126) LYMPHOCYTES RELATIVE PERCENT (BEAKER) (test 25 % alxd=322) MONOCYTES RELATIVE PERCENT (BEAKER) (test 9 % wvhm=591) EOSINOPHILS RELATIVE PERCENT (BEAKER) (test 5 % jmae=008) BASOPHILS RELATIVE PERCENT (BEAKER) (test 2 % gwik=747) NEUTROPHILS ABSOLUTE COUNT (BEAKER) (test 4.05 K/ L 1.56-6.13 ulur=212) LYMPHOCYTES ABSOLUTE COUNT (BEAKER) (test 1.76 K/ L 1.18-3.74 buto=604) MONOCYTES ABSOLUTE COUNT (BEAKER) (test 0.65 K/ L 0.24-0.36 zfps=235) EOSINOPHILS ABSOLUTE COUNT (BEAKER) (test 0.33 K/ L 0.04-0.36 eubm=108) BASOPHILS ABSOLUTE COUNT (BEAKER) (test 0.12 K/ L 0.01-0.08 cacn=821) IMMATURE GRANULOCYTES-RELATIVE PERCENT (BEAKER) 1 % 0-1 (test ynim=0315) POCT-GLUCOSE [id number] 21:11:00 Test Item Value Reference Range Comments POC-GLUCOSE METER (BEAKER) 152 mg/dL 70-110 TESTED AT [address] (test mulu=4577) [facility] [address] POCT-GLUCOSE [id number] 16:41:00 Test Item Value Reference Range Comments POC-GLUCOSE METER (BEAKER) 100 mg/dL 70-110 TESTED AT [address] (test vmrn=3867) [facility] [address] POCT-GLUCOSE [id number] 13:05:00 Test Item Value Reference Range Comments POC-GLUCOSE METER (BEAKER) 127 mg/dL 70-110 TESTED AT [address] (test xgvl=9641) [facility] [address] TSH/FREE T4 IF [id number] 12:05:00 Test Item Value Reference Range Comments THYROID STIMULATING HORMONE (BEAKER) (test 2.75 uIU/mL 0.35-4.94 junn=721) [id number] 11:48:00 Test Item Value Reference Range Comments MAGNESIUM (BEAKER) (test wlel=274) 2.2 mg/dL 1.6-2.6 BASIC METABOLIC [id number] 11:48:00 Test Item Value Reference Range Comments SODIUM (BEAKER) (test 142 meq/L 136-145 uxoc=934) POTASSIUM (BEAKER) (test 3.7 meq/L 3.5-5.1 ravq=455) CHLORIDE (BEAKER) (test 103 meq/L 98-107 fyqm=131) CO2 (BEAKER) (test 30 meq/L 22-29 kdrx=065) BLOOD UREA NITROGEN 27 mg/dL 7-21 (BEAKER) (test gtmx=577) CREATININE (BEAKER) (test 1.19 mg/dL 0.57-1.25 imua=069) GLUCOSE RANDOM (BEAKER) 112 mg/dL 70-105 (test urak=287) CALCIUM (BEAKER) (test 9.6 mg/dL 8.4-10.2 nuhr=494) EGFR (BEAKER) (test 43 mL/min/1.73 sq m ESTIMATED GFR IS NOT hmca=9983) ACCURATE CREATININE CLEARANCE IN PREDICTING GLOMERULAR FILTRATION RATE. ESTIMATED GFR IS NOT APPLICABLE FOR DIALYSIS PATIENTS. POCT-GLUCOSE [id number] 11:40:00 Test Item Value Reference Range Comments POC-GLUCOSE METER (BEAKER) 118 mg/dL 70-[address] [facility] [address] [facility] (test xjmz=6806) [facility] [address] CBC W/PLT COUNT & AUTO [id number] 11:30:00 Test Item Value Reference Range Comments WHITE BLOOD CELL COUNT (BEAKER) (test buwm=226) 7.3 K/ L 3.5-10.5 RED BLOOD CELL COUNT (BEAKER) (test xayn=996) 4.68 M/ L 3.93-5.22 HEMOGLOBIN (BEAKER) (test vzwc=020) 13.4 GM/DL 11.2-15.7 HEMATOCRIT (BEAKER) (test enbm=923) 44.7 % 34.1-44.9 MEAN CORPUSCULAR VOLUME (BEAKER) (test hbxl=381) 95.5 fL 79.4-94.8 MEAN CORPUSCULAR HEMOGLOBIN (BEAKER) (test 28.6 pg 25.6-32.2 deip=370) MEAN CORPUSCULAR HEMOGLOBIN CONC (BEAKER) (test 30.0 GM/DL 32.2-35.5 pwdr=761) RED CELL DISTRIBUTION WIDTH (BEAKER) (test 15.5 % 11.7-14.4 pcyv=459) PLATELET COUNT (BEAKER) (test hbok=279) 260 K/CU MM 150-450 MEAN PLATELET VOLUME (BEAKER) (test bzzx=989) 10.7 fL 9.4-12.3 NUCLEATED RED BLOOD CELLS (BEAKER) (test 0 /100 WBC 0-0 fdoe=481) NEUTROPHILS RELATIVE PERCENT (BEAKER) (test 70 % isvh=520) LYMPHOCYTES RELATIVE PERCENT (BEAKER) (test 19 % gvni=401) MONOCYTES RELATIVE PERCENT (BEAKER) (test 8 % qkho=423) EOSINOPHILS RELATIVE PERCENT (BEAKER) (test 2 % spot=393) BASOPHILS RELATIVE PERCENT (BEAKER) (test 1 % nnkz=443) NEUTROPHILS ABSOLUTE COUNT (BEAKER) (test 5.11 K/ L 1.56-6.13 heyx=519) LYMPHOCYTES ABSOLUTE COUNT (BEAKER) (test 1.37 K/ L 1.18-3.74 hmat=430) MONOCYTES ABSOLUTE COUNT (BEAKER) (test 0.59 K/ L 0.24-0.36 gicc=539) EOSINOPHILS ABSOLUTE COUNT (BEAKER) (test 0.17 K/ L 0.04-0.36 ytyo=533) BASOPHILS ABSOLUTE COUNT (BEAKER) (test 0.07 K/ L 0.01-0.08 xhox=520) IMMATURE GRANULOCYTES-RELATIVE PERCENT (BEAKER) 0 % 0-1 (test gtgl=7336) ANAEROBIC [id number] 02:34:00 Test Item Value Reference Range Comments CULTURE (BEAKER) (test vyfr=7336) No anaerobes isolated SURGICALLY OBTAINED CULTURE + GRAM [id number] 14:05:00 Test Item Value Reference Range Comments CULTURE (BEAKER) (test thcp=3518) No growth GRAM STAIN RESULT (BEAKER) (test 1+ WBCs zdxy=8905) GRAM STAIN RESULT (BEAKER) (test No organisms seen cgjy=54138) POCT-GLUCOSE [id number] 12:39:00 Test Item Value Reference Range Comments POC-GLUCOSE METER (BEAKER) 131 mg/dL 70-110 TESTED AT [address] (test nnis=0227) [facility] [address] POCT-GLUCOSE [id number] 08:01:00 Test Item Value Reference Range Comments POC-GLUCOSE METER (BEAKER) 106 mg/dL 70-110 TESTED AT [address] (test scjn=0405) [facility] [address] BASIC METABOLIC [id number] 06:21:00 Test Item Value Reference Range Comments SODIUM (BEAKER) (test 139 meq/L 136-145 yizf=463) POTASSIUM (BEAKER) (test 3.6 meq/L 3.5-5.1 ughf=324) CHLORIDE (BEAKER) (test 102 meq/L 98-107 klau=734) CO2 (BEAKER) (test 27 meq/L 22-29 lnwu=116) BLOOD UREA NITROGEN 13 mg/dL 7-21 (BEAKER) (test pntm=701) CREATININE (BEAKER) (test 0.70 mg/dL 0.57-1.25 tocn=213) GLUCOSE RANDOM (BEAKER) 90 mg/dL 70-105 (test ibcg=664) CALCIUM (BEAKER) (test 9.2 mg/dL 8.4-10.2 xbhz=254) EGFR (BEAKER) (test 80 mL/min/1.73 sq m ESTIMATED GFR IS NOT ytmx=4543) ACCURATE CREATININE CLEARANCE IN PREDICTING GLOMERULAR FILTRATION RATE. ESTIMATED GFR IS NOT APPLICABLE FOR DIALYSIS PATIENTS. CBC W/PLT COUNT & AUTO [id number] 05:48:00 Test Item Value Reference Range Comments WHITE BLOOD CELL COUNT (BEAKER) (test hgna=650) 9.7 K/ L 3.5-10.5 RED BLOOD CELL COUNT (BEAKER) (test kofs=849) 3.69 M/ L 3.93-5.22 HEMOGLOBIN (BEAKER) (test cyrq=089) 10.5 GM/DL 11.2-15.7 HEMATOCRIT (BEAKER) (test jhfk=477) 35.2 % 34.1-44.9 MEAN CORPUSCULAR VOLUME (BEAKER) (test pogj=546) 95.4 fL 79.4-94.8 MEAN CORPUSCULAR HEMOGLOBIN (BEAKER) (test 28.5 pg 25.6-32.2 jdfg=082) MEAN CORPUSCULAR HEMOGLOBIN CONC (BEAKER) (test 29.8 GM/DL 32.2-35.5 rqic=292) RED CELL DISTRIBUTION WIDTH (BEAKER) (test 14.6 % 11.7-14.4 lbuk=611) PLATELET COUNT (BEAKER) (test iues=855) 321 K/CU MM 150-450 MEAN PLATELET VOLUME (BEAKER) (test difj=837) 10.6 fL 9.4-12.3 NUCLEATED RED BLOOD CELLS (BEAKER) (test 0 /100 WBC 0-0 yaql=517) NEUTROPHILS RELATIVE PERCENT (BEAKER) (test 73 % ptpz=171) LYMPHOCYTES RELATIVE PERCENT (BEAKER) (test 15 % hsyw=017) MONOCYTES RELATIVE PERCENT (BEAKER) (test 7 % ftpy=592) EOSINOPHILS RELATIVE PERCENT (BEAKER) (test 3 % tbsn=340) BASOPHILS RELATIVE PERCENT (BEAKER) (test 1 % bjsj=562) NEUTROPHILS ABSOLUTE COUNT (BEAKER) (test 7.06 K/ L 1.56-6.13 ylum=464) LYMPHOCYTES ABSOLUTE COUNT (BEAKER) (test 1.42 K/ L 1.18-3.74 icwk=513) MONOCYTES ABSOLUTE COUNT (BEAKER) (test 0.71 K/ L 0.24-0.36 sspv=172) EOSINOPHILS ABSOLUTE COUNT (BEAKER) (test 0.27 K/ L 0.04-0.36 talf=454) BASOPHILS ABSOLUTE COUNT (BEAKER) (test 0.05 K/ L 0.01-0.08 zmpe=665) IMMATURE GRANULOCYTES-RELATIVE PERCENT (BEAKER) 2 % 0-1 (test odvh=9184) POCT-GLUCOSE [id number] 21:47:00 Test Item Value Reference Range Comments POC-GLUCOSE METER (BEAKER) 161 mg/dL 70-110 TESTED AT [address] (test jbpd=1101) [place] [address] POCT-GLUCOSE [id number] 17:08:00 Test Item Value Reference Range Comments POC-GLUCOSE METER (BEAKER) 189 mg/dL 70-110 TESTED AT [address] (test nrbh=8628) [place] [address] POCT-GLUCOSE [id number] 11:12:00 Test Item Value Reference Range Comments POC-GLUCOSE METER (BEAKER) 197 mg/dL 70-110 TESTED AT [address] (test thtr=1662) [place] [address] POCT-GLUCOSE [id number] 07:35:00 Test Item Value Reference Range Comments POC-GLUCOSE METER (BEAKER) 113 mg/dL 70-110 TESTED AT [address] (test lsih=8526) [place] [address] BASIC METABOLIC [id number] 06:23:00 Test Item Value Reference Range Comments SODIUM (BEAKER) (test 137 meq/L 136-145 gszf=052) POTASSIUM (BEAKER) (test 4.3 meq/L 3.5-5.1 wupk=435) CHLORIDE (BEAKER) (test 101 meq/L 98-107 tnzr=396) CO2 (BEAKER) (test 26 meq/L 22-29 gjen=009) BLOOD UREA NITROGEN 12 mg/dL 7-21 (BEAKER) (test ckig=468) CREATININE (BEAKER) (test 0.70 mg/dL 0.57-1.25 ipiv=942) GLUCOSE RANDOM (BEAKER) 91 mg/dL 70-105 (test pqwt=749) CALCIUM (BEAKER) (test 9.3 mg/dL 8.4-10.2 pfsa=547) EGFR (BEAKER) (test 80 mL/min/1.73 sq m ESTIMATED GFR IS NOT bsba=5334) ACCURATE CREATININE CLEARANCE IN PREDICTING GLOMERULAR FILTRATION RATE. ESTIMATED GFR IS NOT APPLICABLE FOR DIALYSIS PATIENTS. CBC W/PLT COUNT & AUTO [id number] 06:12:00 Test Item Value Reference Range Comments WHITE BLOOD CELL COUNT (BEAKER) (test hgmi=247) 11.9 K/ L 3.5-10.5 RED BLOOD CELL COUNT (BEAKER) (test iaoh=664) 3.65 M/ L 3.93-5.22 HEMOGLOBIN (BEAKER) (test baac=209) 10.7 GM/DL 11.2-15.7 HEMATOCRIT (BEAKER) (test iply=213) 35.3 % 34.1-44.9 MEAN CORPUSCULAR VOLUME (BEAKER) (test neat=603) 96.7 fL 79.4-94.8 MEAN CORPUSCULAR HEMOGLOBIN (BEAKER) (test 29.3 pg 25.6-32.2 sgwv=644) MEAN CORPUSCULAR HEMOGLOBIN CONC (BEAKER) (test 30.3 GM/DL 32.2-35.5 utgo=731) RED CELL DISTRIBUTION WIDTH (BEAKER) (test 14.6 % 11.7-14.4 xtbb=755) PLATELET COUNT (BEAKER) (test lsyl=159) 277 K/CU MM 150-450 MEAN PLATELET VOLUME (BEAKER) (test vwxl=222) 10.8 fL 9.4-12.3 NUCLEATED RED BLOOD CELLS (BEAKER) (test 0 /100 WBC 0-0 jujd=209) NEUTROPHILS RELATIVE PERCENT (BEAKER) (test 77 % gwgw=428) LYMPHOCYTES RELATIVE PERCENT (BEAKER) (test 10 % rvof=153) MONOCYTES RELATIVE PERCENT (BEAKER) (test 7 % iemp=087) EOSINOPHILS RELATIVE PERCENT (BEAKER) (test 2 % pfbx=344) BASOPHILS RELATIVE PERCENT (BEAKER) (test 1 % bkua=820) NEUTROPHILS ABSOLUTE COUNT (BEAKER) (test 9.13 K/ L 1.56-6.13 aryh=317) LYMPHOCYTES ABSOLUTE COUNT (BEAKER) (test 1.19 K/ L 1.18-3.74 rjyv=350) MONOCYTES ABSOLUTE COUNT (BEAKER) (test 0.87 K/ L 0.24-0.36 ygqj=960) EOSINOPHILS ABSOLUTE COUNT (BEAKER) (test 0.26 K/ L 0.04-0.36 tuig=389) BASOPHILS ABSOLUTE COUNT (BEAKER) (test 0.06 K/ L 0.01-0.08 avow=119) IMMATURE GRANULOCYTES-RELATIVE PERCENT (BEAKER) 3 % 0-1 (test rdhj=4116) POCT-GLUCOSE [id number] 21:04:00 Test Item Value Reference Range Comments POC-GLUCOSE METER (BEAKER) 143 mg/dL 70-110 TESTED AT [address] (test gvko=5715) [place] [address] POCT-GLUCOSE [id number] 17:04:00 Test Item Value Reference Range Comments POC-GLUCOSE METER (BEAKER) 182 mg/dL 70-110 TESTED AT [address] (test dlhl=7340) [place] [address] SPIN/CONCENTRATION [id number] 15:07:00 Test Item Value Reference Range Comments CONCENTRATION CHARGED (BEAKER) (test soug=6587) Done POCT-GLUCOSE [id number] 11:38:00 Test Item Value Reference Range Comments POC-GLUCOSE METER (BEAKER) 141 mg/dL 70-110 TESTED AT [address] (test zbvz=1453) [place] [address] POCT-GLUCOSE [id number] 08:13:00 Test Item Value Reference Range Comments POC-GLUCOSE METER (BEAKER) 122 mg/dL 70-110 TESTED AT [address] (test xfwn=2859) [place] [address] BASIC METABOLIC [id number] 05:20:00 Test Item Value Reference Range Comments SODIUM (BEAKER) (test 138 meq/L 136-145 akil=263) POTASSIUM (BEAKER) (test 3.8 meq/L 3.5-5.1 nrlo=188) CHLORIDE (BEAKER) (test 102 meq/L 98-107 wzzs=805) CO2 (BEAKER) (test 28 meq/L 22-29 qokq=222) BLOOD UREA NITROGEN 12 mg/dL 7-21 (BEAKER) (test mwmn=491) CREATININE (BEAKER) (test 0.72 mg/dL 0.57-1.25 jnks=546) GLUCOSE RANDOM (BEAKER) 104 mg/dL 70-105 (test cccw=588) CALCIUM (BEAKER) (test 8.5 mg/dL 8.4-10.2 tmlj=161) EGFR (BEAKER) (test 77 mL/min/1.73 sq m ESTIMATED GFR IS NOT kuto=2051) ACCURATE CREATININE CLEARANCE IN PREDICTING GLOMERULAR FILTRATION RATE. ESTIMATED GFR IS NOT APPLICABLE FOR DIALYSIS PATIENTS. CBC W/PLT COUNT & AUTO [id number] 04:58:00 Test Item Value Reference Range Comments WHITE BLOOD CELL COUNT (BEAKER) (test gyrc=314) 11.5 K/ L 3.5-10.5 RED BLOOD CELL COUNT (BEAKER) (test chzt=910) 3.63 M/ L 3.93-5.22 HEMOGLOBIN (BEAKER) (test sfjr=467) 10.3 GM/DL 11.2-15.7 HEMATOCRIT (BEAKER) (test kzyq=619) 34.4 % 34.1-44.9 MEAN CORPUSCULAR VOLUME (BEAKER) (test knhn=703) 94.8 fL 79.4-94.8 MEAN CORPUSCULAR HEMOGLOBIN (BEAKER) (test 28.4 pg 25.6-32.2 aabw=978) MEAN CORPUSCULAR HEMOGLOBIN CONC (BEAKER) (test 29.9 GM/DL 32.2-35.5 zzvx=246) RED CELL DISTRIBUTION WIDTH (BEAKER) (test 14.8 % 11.7-14.4 srvu=610) PLATELET COUNT (BEAKER) (test dubc=202) 266 K/CU MM 150-450 MEAN PLATELET VOLUME (BEAKER) (test ohdu=349) 10.8 fL 9.4-12.3 NUCLEATED RED BLOOD CELLS (BEAKER) (test 0 /100 WBC 0-0 pbwa=528) NEUTROPHILS RELATIVE PERCENT (BEAKER) (test 79 % vwkz=218) LYMPHOCYTES RELATIVE PERCENT (BEAKER) (test 8 % dpio=441) MONOCYTES RELATIVE PERCENT (BEAKER) (test 7 % rkbz=317) EOSINOPHILS RELATIVE PERCENT (BEAKER) (test 2 % afbn=799) BASOPHILS RELATIVE PERCENT (BEAKER) (test 1 % pbdz=570) NEUTROPHILS ABSOLUTE COUNT (BEAKER) (test 9.09 K/ L 1.56-6.13 hycv=793) LYMPHOCYTES ABSOLUTE COUNT (BEAKER) (test 0.90 K/ L 1.18-3.74 rtvi=115) MONOCYTES ABSOLUTE COUNT (BEAKER) (test 0.76 K/ L 0.24-0.36 dowt=807) EOSINOPHILS ABSOLUTE COUNT (BEAKER) (test 0.27 K/ L 0.04-0.36 jxwv=762) BASOPHILS ABSOLUTE COUNT (BEAKER) (test 0.08 K/ L 0.01-0.08 ulqa=020) IMMATURE GRANULOCYTES-RELATIVE PERCENT (BEAKER) 4 % 0-1 (test tjdz=1285) POCT-GLUCOSE [id number] 21:18:00 Test Item Value Reference Range Comments POC-GLUCOSE METER (BEAKER) 147 mg/dL 70-[address] [facility] [address] [place] [address] (test foyt=2844) [facility] [address] TISSUE [id number] 15:55:00Surgical Pathology Report Case: [id number] Authorizing Provider: Billy Mcmanus, Collected: 03/18/2018 1046 OrderingLocation: [facility] Received: 2017 1131 PERIOPERATIVE SERVICES Pathologist: Chris Caraballo MD Specimen: Plaque, AORTIC PLAQUE AORTA, ATHERECTOMY:CALCIFIC ATHEROSCLEROTIC PLAQUE Signing Pathologist Direct Phone Line: [phone] by Chris Caraballo MD on 03/25/2018 at 3:55 [id number]; [id number] plaque Received in saline labeled "plaque", description "aortic plaque" is a 4.5 x 3.5 x 0.6 cm aggregate of felix-white to yellow-panchal, rubbery, calcified fibrous tissue.Boilers And Pressure Vessels Inspector sections are submitted in cassette A1 for decalcification. DB/ew PerformedPOTASSIUM-STAT [id number] 11:04:00 Test Item Value Reference Range Comments POTASSIUM (BEAKER) (test wmkn=324) 3.0 meq/L 3.6-5.5 HGB/HCT (H&H) - STAT [id number] 11:04:00 Test Item Value Reference Range Comments HEMOGLOBIN (BEAKER) (test orsr=536) 11.2 g/dL 12.0-15.0 HEMATOCRIT (BEAKER) (test jkle=540) 33.0 % 36.0-45.0 GLUCOSE-STAT [id number] 11:04:00 Test Item Value Reference Range Comments GLUCOSE RANDOM (BEAKER) (test cuiw=028) 116 mg/dL 70-110 POCT-GLUCOSE [id number] 07:01:00 Test Item Value Reference Range Comments POC-GLUCOSE METER (BEAKER) 91 mg/dL 70-[address] [facility] [address] [facility] (test gkld=2658) [facility] [address] BASIC METABOLIC [id number] 05:12:00 Test Item Value Reference Range Comments SODIUM (BEAKER) (test 140 meq/L 136-145 mevu=720) POTASSIUM (BEAKER) (test 4.0 meq/L 3.5-5.1 jgoe=089) CHLORIDE (BEAKER) (test 100 meq/L 98-107 bovw=674) CO2 (BEAKER) (test 34 meq/L 22-29 vhmk=428) BLOOD UREA NITROGEN 14 mg/dL 7-21 (BEAKER) (test oupi=231) CREATININE (BEAKER) (test 0.75 mg/dL 0.57-1.25 vghv=355) GLUCOSE RANDOM (BEAKER) 100 mg/dL 70-105 (test mbwe=029) CALCIUM (BEAKER) (test 9.2 mg/dL 8.4-10.2 pyxo=485) EGFR (BEAKER) (test 74 mL/min/1.73 sq m ESTIMATED GFR IS NOT fcvq=6182) ACCURATE CREATININE CLEARANCE IN PREDICTING GLOMERULAR FILTRATION RATE. ESTIMATED GFR IS NOT APPLICABLE FOR DIALYSIS PATIENTS. CBC W/PLT COUNT & AUTO [id number] 04:36:00 Test Item Value Reference Range Comments WHITE BLOOD CELL COUNT (BEAKER) (test djhx=802) 11.1 K/ L 3.5-10.5 RED BLOOD CELL COUNT (BEAKER) (test mchr=142) 3.57 M/ L 3.93-5.22 HEMOGLOBIN (BEAKER) (test ldcn=629) 10.3 GM/DL 11.2-15.7 HEMATOCRIT (BEAKER) (test bdoa=132) 33.8 % 34.1-44.9 MEAN CORPUSCULAR VOLUME (BEAKER) (test vgde=635) 94.7 fL 79.4-94.8 MEAN CORPUSCULAR HEMOGLOBIN (BEAKER) (test 28.9 pg 25.6-32.2 tsqo=647) MEAN CORPUSCULAR HEMOGLOBIN CONC (BEAKER) (test 30.5 GM/DL 32.2-35.5 lgqc=693) RED CELL DISTRIBUTION WIDTH (BEAKER) (test 14.6 % 11.7-14.4 xkmq=876) PLATELET COUNT (BEAKER) (test vrzs=188) 244 K/CU MM 150-450 MEAN PLATELET VOLUME (BEAKER) (test cxwr=920) 10.7 fL 9.4-12.3 NUCLEATED RED BLOOD CELLS (BEAKER) (test 1 /100 WBC 0-0 bqig=259) NEUTROPHILS RELATIVE PERCENT (BEAKER) (test 72 % guie=060) LYMPHOCYTES RELATIVE PERCENT (BEAKER) (test 13 % vckv=715) MONOCYTES RELATIVE PERCENT (BEAKER) (test 9 % nuby=442) EOSINOPHILS RELATIVE PERCENT (BEAKER) (test 2 % suqe=041) BASOPHILS RELATIVE PERCENT (BEAKER) (test 1 % gwbg=581) NEUTROPHILS ABSOLUTE COUNT (BEAKER) (test 7.91 K/ L 1.56-6.13 xook=662) LYMPHOCYTES ABSOLUTE COUNT (BEAKER) (test 1.45 K/ L 1.18-3.74 ksvi=128) MONOCYTES ABSOLUTE COUNT (BEAKER) (test 1.00 K/ L 0.24-0.36 ecrw=616) EOSINOPHILS ABSOLUTE COUNT (BEAKER) (test 0.21 K/ L 0.04-0.36 gbtt=188) BASOPHILS ABSOLUTE COUNT (BEAKER) (test 0.07 K/ L 0.01-0.08 flew=828) IMMATURE GRANULOCYTES-RELATIVE PERCENT (BEAKER) 4 % 0-1 (test lgpy=0001) POCT-GLUCOSE [id number] 21:06:00 Test Item Value Reference Range Comments POC-GLUCOSE METER (BEAKER) 152 mg/dL 70-110 TESTED AT [address] (test efbi=7721) [facility] [address] POCT-GLUCOSE [id number] 17:43:00 Test Item Value Reference Range Comments POC-GLUCOSE METER (BEAKER) 155 mg/dL 70-110 TESTED AT [address] (test mxiq=3450) [facility] [address] POCT-GLUCOSE [id number] 12:30:00 Test Item Value Reference Range Comments POC-GLUCOSE METER (BEAKER) 167 mg/dL 70-110 TESTED AT [address] (test wnmr=8250) [facility] [address] POCT-GLUCOSE [id number] 07:13:00 Test Item Value Reference Range Comments POC-GLUCOSE METER (BEAKER) 111 mg/dL 70-110 TESTED AT [address] (test qcfc=8952) [facility] [address] BASIC METABOLIC [id number] 05:33:00 Test Item Value Reference Range Comments SODIUM (BEAKER) (test 139 meq/L 136-145 unij=913) POTASSIUM (BEAKER) (test 3.9 meq/L 3.5-5.1 qtbb=437) CHLORIDE (BEAKER) (test 102 meq/L 98-107 wulg=029) CO2 (BEAKER) (test 29 meq/L 22-29 myfc=139) BLOOD UREA NITROGEN 17 mg/dL 7-21 (BEAKER) (test zquf=919) CREATININE (BEAKER) (test 0.72 mg/dL 0.57-1.25 qiac=433) GLUCOSE RANDOM (BEAKER) 114 mg/dL 70-105 (test pigf=758) CALCIUM (BEAKER) (test 8.8 mg/dL 8.4-10.2 xkat=789) EGFR (BEAKER) (test 77 mL/min/1.73 sq m ESTIMATED GFR IS NOT ywmz=8070) ACCURATE CREATININE CLEARANCE IN PREDICTING GLOMERULAR FILTRATION RATE. ESTIMATED GFR IS NOT APPLICABLE FOR DIALYSIS PATIENTS. CBC W/PLT COUNT & AUTO [id number] 04:58:00 Test Item Value Reference Range Comments WHITE BLOOD CELL COUNT (BEAKER) (test zkno=065) 9.9 K/ L 3.5-10.5 RED BLOOD CELL COUNT (BEAKER) (test ytuz=973) 3.54 M/ L 3.93-5.22 HEMOGLOBIN (BEAKER) (test vadd=134) 10.2 GM/DL 11.2-15.7 HEMATOCRIT (BEAKER) (test uzkr=663) 33.7 % 34.1-44.9 MEAN CORPUSCULAR VOLUME (BEAKER) (test cbcb=295) 95.2 fL 79.4-94.8 MEAN CORPUSCULAR HEMOGLOBIN (BEAKER) (test 28.8 pg 25.6-32.2 kgun=969) MEAN CORPUSCULAR HEMOGLOBIN CONC (BEAKER) (test 30.3 GM/DL 32.2-35.5 aehp=029) RED CELL DISTRIBUTION WIDTH (BEAKER) (test 14.4 % 11.7-14.4 whme=381) PLATELET COUNT (BEAKER) (test lvgu=669) 226 K/CU MM 150-450 MEAN PLATELET VOLUME (BEAKER) (test dukh=325) 11.2 fL 9.4-12.3 NUCLEATED RED BLOOD CELLS (BEAKER) (test 0 /100 WBC 0-0 nyfu=863) NEUTROPHILS RELATIVE PERCENT (BEAKER) (test 73 % qqty=202) LYMPHOCYTES RELATIVE PERCENT (BEAKER) (test 14 % xjmo=409) MONOCYTES RELATIVE PERCENT (BEAKER) (test 9 % qvwk=087) EOSINOPHILS RELATIVE PERCENT (BEAKER) (test 2 % vxrx=053) BASOPHILS RELATIVE PERCENT (BEAKER) (test 1 % wvcr=294) NEUTROPHILS ABSOLUTE COUNT (BEAKER) (test 7.15 K/ L 1.56-6.13 oynu=687) LYMPHOCYTES ABSOLUTE COUNT (BEAKER) (test 1.36 K/ L 1.18-3.74 dycy=346) MONOCYTES ABSOLUTE COUNT (BEAKER) (test 0.87 K/ L 0.24-0.36 gcrx=405) EOSINOPHILS ABSOLUTE COUNT (BEAKER) (test 0.18 K/ L 0.04-0.36 uwtv=664) BASOPHILS ABSOLUTE COUNT (BEAKER) (test 0.07 K/ L 0.01-0.08 tgia=630) IMMATURE GRANULOCYTES-RELATIVE PERCENT (BEAKER) 2 % 0-1 (test olhd=7459) POCT-GLUCOSE [id number] 20:59:00 Test Item Value Reference Range Comments POC-GLUCOSE METER (BEAKER) 178 mg/dL 70-110 TESTED AT [address] (test vzhn=6486) [place] [id number] POCT-GLUCOSE [id number] 18:18:00 Test Item Value Reference Range Comments POC-GLUCOSE METER (BEAKER) 137 mg/dL 70-110 TESTED AT [address] (test fgpj=3553) [place] [address] RAD, SPINE, LUMBAR, COMPLETE (MIN 4 VIEWS)2018-03-23 [...] No definite acute abnormality. Signed: Jomar [facility] Verified Date/Time: 03/23/2018 16:25:16 Reading Location: [facility] [id number] Ortho Consult Reading Room SPUTUM CULTURE + GRAM [id number] 10:41:00 Test Item Value Reference Range Comments CULTURE (BEAKER) (test 3+ Normal respiratory anu thzt=8770) present GRAM STAIN RESULT (BEAKER) <1+ WBCs (test dkkv=6074) GRAM STAIN RESULT (BEAKER) 10-15 epithelial cells (test lthc=71702) GRAM STAIN RESULT (BEAKER) 1+ gram positive cocci in pairs (test pnqm=51790) POCT-GLUCOSE [id number] 08:09:00 Test Item Value Reference Range Comments POC-GLUCOSE METER (BEAKER) 94 mg/dL 70-110 TESTED AT [address] (test ohmh=7275) [place] [id number] BASIC METABOLIC [id number] 06:23:00 Test Item Value Reference Range Comments SODIUM (BEAKER) (test 142 meq/L 136-145 xtur=730) POTASSIUM (BEAKER) (test 3.3 meq/L 3.5-5.1 arex=401) CHLORIDE (BEAKER) (test 102 meq/L 98-107 dxwo=547) CO2 (BEAKER) (test 27 meq/L 22-29 caiy=223) BLOOD UREA NITROGEN 17 mg/dL 7-21 (BEAKER) (test olia=997) CREATININE (BEAKER) (test 0.69 mg/dL 0.57-1.25 feor=033) GLUCOSE RANDOM (BEAKER) 81 mg/dL 70-105 (test vyru=239) CALCIUM (BEAKER) (test 9.4 mg/dL 8.4-10.2 rndb=480) EGFR (BEAKER) (test 81 mL/min/1.73 sq m ESTIMATED GFR IS NOT tjdu=6610) ACCURATE CREATININE CLEARANCE IN PREDICTING GLOMERULAR FILTRATION RATE. ESTIMATED GFR IS NOT APPLICABLE FOR DIALYSIS PATIENTS. CBC W/PLT COUNT & AUTO [id number] 06:00:00 Test Item Value Reference Range Comments WHITE BLOOD CELL COUNT (BEAKER) (test kaad=733) 8.2 K/ L 3.5-10.5 RED BLOOD CELL COUNT (BEAKER) (test bitv=043) 4.03 M/ L 3.93-5.22 HEMOGLOBIN (BEAKER) (test sqdf=577) 11.5 GM/DL 11.2-15.7 HEMATOCRIT (BEAKER) (test qata=504) 38.6 % 34.1-44.9 MEAN CORPUSCULAR VOLUME (BEAKER) (test omxt=529) 95.8 fL 79.4-94.8 MEAN CORPUSCULAR HEMOGLOBIN (BEAKER) (test 28.5 pg 25.6-32.2 ixyv=382) MEAN CORPUSCULAR HEMOGLOBIN CONC (BEAKER) (test 29.8 GM/DL 32.2-35.5 wojo=845) RED CELL DISTRIBUTION WIDTH (BEAKER) (test 14.5 % 11.7-14.4 dgjn=430) PLATELET COUNT (BEAKER) (test gwgl=037) 214 K/CU MM 150-450 MEAN PLATELET VOLUME (BEAKER) (test jvwb=992) 11.5 fL 9.4-12.3 NUCLEATED RED BLOOD CELLS (BEAKER) (test 0 /100 WBC 0-0 lvfa=239) NEUTROPHILS RELATIVE PERCENT (BEAKER) (test 71 % ebuf=217) LYMPHOCYTES RELATIVE PERCENT (BEAKER) (test 17 % vcdz=394) MONOCYTES RELATIVE PERCENT (BEAKER) (test 8 % qeot=147) EOSINOPHILS RELATIVE PERCENT (BEAKER) (test 3 % ctle=998) BASOPHILS RELATIVE PERCENT (BEAKER) (test 1 % hrww=173) NEUTROPHILS ABSOLUTE COUNT (BEAKER) (test 5.84 K/ L 1.56-6.13 wqit=673) LYMPHOCYTES ABSOLUTE COUNT (BEAKER) (test 1.36 K/ L 1.18-3.74 pwba=475) MONOCYTES ABSOLUTE COUNT (BEAKER) (test 0.63 K/ L 0.24-0.36 fdec=103) EOSINOPHILS ABSOLUTE COUNT (BEAKER) (test 0.24 K/ L 0.04-0.36 vizo=253) BASOPHILS ABSOLUTE COUNT (BEAKER) (test 0.07 K/ L 0.01-0.08 kyib=471) IMMATURE GRANULOCYTES-RELATIVE PERCENT (BEAKER) 1 % 0-1 (test spwq=2661) POCT-GLUCOSE [id number] 21:32:00 Test Item Value Reference Range Comments POC-GLUCOSE METER (BEAKER) 238 mg/dL 70-110 TESTED AT [address] (test gach=8549) [place] [address] POCT-GLUCOSE [id number] 12:11:00 Test Item Value Reference Range Comments POC-GLUCOSE METER (BEAKER) 102 mg/dL 70-110 TESTED AT [address] (test xrzc=9223) [place] [address] POCT-GLUCOSE [id number] 07:49:00 Test Item Value Reference Range Comments POC-GLUCOSE METER (BEAKER) 93 mg/dL 70-110 TESTED AT [address] (test mvje=5198) [place] [address] BASIC METABOLIC [id number] 06:14:00 Test Item Value Reference Range Comments SODIUM (BEAKER) (test 142 meq/L 136-145 xuxd=995) POTASSIUM (BEAKER) (test 4.6 meq/L 3.5-5.1 esve=743) CHLORIDE (BEAKER) (test 103 meq/L 98-107 icii=013) CO2 (BEAKER) (test 32 meq/L 22-29 toft=294) BLOOD UREA NITROGEN 18 mg/dL 7-21 (BEAKER) (test vufa=533) CREATININE (BEAKER) (test 0.73 mg/dL 0.57-1.25 iywv=220) GLUCOSE RANDOM (BEAKER) 78 mg/dL 70-105 (test uvbp=831) CALCIUM (BEAKER) (test 9.3 mg/dL 8.4-10.2 okcn=993) EGFR (BEAKER) (test 76 mL/min/1.73 sq m ESTIMATED GFR IS NOT moml=2465) ACCURATE CREATININE CLEARANCE IN PREDICTING GLOMERULAR FILTRATION RATE. ESTIMATED GFR IS NOT APPLICABLE FOR DIALYSIS PATIENTS. CBC W/PLT COUNT & AUTO [id number] 05:44:00 Test Item Value Reference Range Comments WHITE BLOOD CELL COUNT (BEAKER) (test lrke=109) 9.0 K/ L 3.5-10.5 RED BLOOD CELL COUNT (BEAKER) (test bmby=492) 3.81 M/ L 3.93-5.22 HEMOGLOBIN (BEAKER) (test eggw=302) 10.8 GM/DL 11.2-15.7 HEMATOCRIT (BEAKER) (test rqzj=871) 36.8 % 34.1-44.9 MEAN CORPUSCULAR VOLUME (BEAKER) (test qttz=070) 96.6 fL 79.4-94.8 MEAN CORPUSCULAR HEMOGLOBIN (BEAKER) (test 28.3 pg 25.6-32.2 iseb=176) MEAN CORPUSCULAR HEMOGLOBIN CONC (BEAKER) (test 29.3 GM/DL 32.2-35.5 rloz=356) RED CELL DISTRIBUTION WIDTH (BEAKER) (test 14.7 % 11.7-14.4 hlto=809) PLATELET COUNT (BEAKER) (test alyk=367) 178 K/CU MM 150-450 MEAN PLATELET VOLUME (BEAKER) (test dcjf=496) 11.6 fL 9.4-12.3 NUCLEATED RED BLOOD CELLS (BEAKER) (test 0 /100 WBC 0-0 lrsr=798) NEUTROPHILS RELATIVE PERCENT (BEAKER) (test 75 % cgqz=077) LYMPHOCYTES RELATIVE PERCENT (BEAKER) (test 14 % swik=623) MONOCYTES RELATIVE PERCENT (BEAKER) (test 7 % ntkw=345) EOSINOPHILS RELATIVE PERCENT (BEAKER) (test 3 % ccqt=219) BASOPHILS RELATIVE PERCENT (BEAKER) (test 1 % oxnb=925) NEUTROPHILS ABSOLUTE COUNT (BEAKER) (test 6.69 K/ L 1.56-6.13 hoff=270) LYMPHOCYTES ABSOLUTE COUNT (BEAKER) (test 1.29 K/ L 1.18-3.74 arux=446) MONOCYTES ABSOLUTE COUNT (BEAKER) (test 0.65 K/ L 0.24-0.36 zfet=067) EOSINOPHILS ABSOLUTE COUNT (BEAKER) (test 0.22 K/ L 0.04-0.36 akls=830) BASOPHILS ABSOLUTE COUNT (BEAKER) (test 0.05 K/ L 0.01-0.08 wmww=410) IMMATURE GRANULOCYTES-RELATIVE PERCENT (BEAKER) 1 % 0-1 (test gthr=6299) POCT-GLUCOSE [id number] 21:06:00 Test Item Value Reference Range Comments POC-GLUCOSE METER (BEAKER) 116 mg/dL 70-110 TESTED AT [address] (test nfxa=5468) [place] [id number] POCT-GLUCOSE [id number] 16:33:00 Test Item Value Reference Range Comments POC-GLUCOSE METER (BEAKER) 138 mg/dL 70-110 TESTED AT [address] (test wrnu=5130) [facility] [address] POCT-GLUCOSE [id number] 12:15:00 Test Item Value Reference Range Comments POC-GLUCOSE METER (BEAKER) 150 mg/dL 70-110 TESTED AT [address] (test krna=5510) [facility] [address] POCT-GLUCOSE [id number] 09:03:00 Test Item Value Reference Range Comments POC-GLUCOSE METER (BEAKER) 101 mg/dL 70-110 TESTED AT [address] (test tnrh=0186) [place] [id number] RAD, CHEST, 1 VIEW, NON [id number] 08:03:00Reason for exam:->post cardiovascular procedureShould this be [...] Verified Date/ Time: 03/21/2018 08:03:21 Reading Location: [facility] Diagnostic Imaging Reading Room - [place] [address] Electronically signed by: FREYA TURCIOS M.D. on 2017 08:03 [id number] 04:37:00 Test Item Value Reference Range Comments MAGNESIUM (BEAKER) (test 1.9 mg/dL 1.6-2.6 Specimen slightly hemolyzed ipzp=575) BASIC METABOLIC [id number] 04:37:00 Test Item Value Reference Range Comments SODIUM (BEAKER) (test 141 meq/L 136-145 yjfz=121) POTASSIUM (BEAKER) (test 4.0 meq/L 3.5-5.1 Specimen slightly gtxx=695) hemolyzed CHLORIDE (BEAKER) (test 104 meq/L 98-107 bmmw=494) CO2 (BEAKER) (test 27 meq/L 22-29 mdhf=133) BLOOD UREA NITROGEN 28 mg/dL 7-21 (BEAKER) (test weio=875) CREATININE (BEAKER) (test 0.81 mg/dL 0.57-1.25 Specimen slightly ofql=675) hemolyzed GLUCOSE RANDOM (BEAKER) 124 mg/dL 70-105 (test mtce=016) CALCIUM (BEAKER) (test 9.8 mg/dL 8.4-10.2 gqvq=901) EGFR (BEAKER) (test 68 mL/min/1.73 sq m ESTIMATED GFR IS NOT vzcq=0843) ACCURATE CREATININE CLEARANCE IN PREDICTING GLOMERULAR FILTRATION RATE. ESTIMATED GFR IS NOT APPLICABLE FOR DIALYSIS PATIENTS. CBC W/PLT COUNT & AUTO [id number] 04:27:00 Test Item Value Reference Range Comments WHITE BLOOD CELL COUNT (BEAKER) (test iysp=990) 13.9 K/ L 3.5-10.5 RED BLOOD CELL COUNT (BEAKER) (test wqlp=503) 3.73 M/ L 3.93-5.22 HEMOGLOBIN (BEAKER) (test jpnh=073) 11.1 GM/DL 11.2-15.7 HEMATOCRIT (BEAKER) (test uogl=154) 35.4 % 34.1-44.9 MEAN CORPUSCULAR VOLUME (BEAKER) (test khrq=842) 94.9 fL 79.4-94.8 MEAN CORPUSCULAR HEMOGLOBIN (BEAKER) (test 29.8 pg 25.6-32.2 ecuo=506) MEAN CORPUSCULAR HEMOGLOBIN CONC (BEAKER) (test 31.4 GM/DL 32.2-35.5 efcq=759) RED CELL DISTRIBUTION WIDTH (BEAKER) (test 14.8 % 11.7-14.4 vwdz=606) PLATELET COUNT (BEAKER) (test ovot=277) 173 K/CU MM 150-450 MEAN PLATELET VOLUME (BEAKER) (test vegh=177) 11.8 fL 9.4-12.3 NUCLEATED RED BLOOD CELLS (BEAKER) (test 0 /100 WBC 0-0 yada=794) NEUTROPHILS RELATIVE PERCENT (BEAKER) (test 90 % vsyd=930) LYMPHOCYTES RELATIVE PERCENT (BEAKER) (test 5 % wnrh=974) MONOCYTES RELATIVE PERCENT (BEAKER) (test 4 % mnbu=343) EOSINOPHILS RELATIVE PERCENT (BEAKER) (test 1 % tuwo=202) BASOPHILS RELATIVE PERCENT (BEAKER) (test 0 % dwbu=253) NEUTROPHILS ABSOLUTE COUNT (BEAKER) (test 12.44 K/ L 1.56-6.13 xxmg=747) LYMPHOCYTES ABSOLUTE COUNT (BEAKER) (test 0.67 K/ L 1.18-3.74 qqof=862) MONOCYTES ABSOLUTE COUNT (BEAKER) (test 0.58 K/ L 0.24-0.36 mpmt=521) EOSINOPHILS ABSOLUTE COUNT (BEAKER) (test 0.07 K/ L 0.04-0.36 oave=835) BASOPHILS ABSOLUTE COUNT (BEAKER) (test 0.04 K/ L 0.01-0.08 aomv=542) IMMATURE GRANULOCYTES-RELATIVE PERCENT (BEAKER) 1 % 0-1 (test kjrm=2617) POCT-GLUCOSE [id number] 20:59:00 Test Item Value Reference Range Comments POC-GLUCOSE METER (BEAKER) 111 mg/dL 70-[address] [facility] [address] [facility] (test kmif=2275) [facility] [address] POCT-GLUCOSE [id number] 18:33:00 Test Item Value Reference Range Comments POC-GLUCOSE METER (BEAKER) 101 mg/dL 70-110 TESTED AT [address] (test uppz=7148) [place] [id number] POCT-GLUCOSE [id number] 16:33:00 Test Item Value Reference Range Comments POC-GLUCOSE METER (BEAKER) 128 mg/dL 70-110 TESTED AT [address] (test pzwt=5466) [place] [address] POCT-GLUCOSE [id number] 11:35:00 Test Item Value Reference Range Comments POC-GLUCOSE METER (BEAKER) 129 mg/dL 70-110 TESTED AT [address] (test tqar=0663) [place] [address] HEMOGLOBIN [id number] 08:58:00 Test Item Value Reference Range Comments HEMOGLOBIN A1C (BEAKER) (test dmsh=371) 6.0 % 4.3-6.1 RAD, CHEST, 1 VIEW, NON [id number] 08:06:00Reason for exam:->post cardiovascular procedureShould this be [...] MDReport Verified Date/Time: 03/20/2018 08:06:53 Reading Location: [facility] Radiology Reading Room POCT-GLUCOSE [id number] 06:21:00 Test Item Value Reference Range Comments POC-GLUCOSE METER (BEAKER) 133 mg/dL 70-110 TESTED AT [address] (test yrqk=7154) [place] [address] [id number] 06:00:00 Test Item Value Reference Range Comments MAGNESIUM (BEAKER) (test dlpo=152) 2.0 mg/dL 1.6-2.6 BASIC METABOLIC [id number] 06:00:00 Test Item Value Reference Range Comments SODIUM (BEAKER) (test 144 meq/L 136-145 ugob=136) POTASSIUM (BEAKER) (test 3.9 meq/L 3.5-5.1 cmpv=740) CHLORIDE (BEAKER) (test 107 meq/L 98-107 qjpl=864) CO2 (BEAKER) (test 27 meq/L 22-29 ozmb=846) BLOOD UREA NITROGEN 36 mg/dL 7-21 (BEAKER) (test jsvm=148) CREATININE (BEAKER) (test 0.99 mg/dL 0.57-1.25 tios=879) GLUCOSE RANDOM (BEAKER) 123 mg/dL 70-105 (test uolc=460) CALCIUM (BEAKER) (test 9.3 mg/dL 8.4-10.2 lvnu=944) EGFR (BEAKER) (test 54 mL/min/1.73 sq m ESTIMATED GFR IS NOT gjms=3779) ACCURATE CREATININE CLEARANCE IN PREDICTING GLOMERULAR FILTRATION RATE. ESTIMATED GFR IS NOT APPLICABLE FOR DIALYSIS PATIENTS. CBC W/PLT COUNT & AUTO [id number] 05:39:00 Test Item Value Reference Range Comments WHITE BLOOD CELL COUNT (BEAKER) (test tqly=249) 16.0 K/ L 3.5-10.5 RED BLOOD CELL COUNT (BEAKER) (test jdlk=779) 4.19 M/ L 3.93-5.22 HEMOGLOBIN (BEAKER) (test wbwg=428) 12.0 GM/DL 11.2-15.7 HEMATOCRIT (BEAKER) (test migu=682) 40.1 % 34.1-44.9 MEAN CORPUSCULAR VOLUME (BEAKER) (test oedp=694) 95.7 fL 79.4-94.8 MEAN CORPUSCULAR HEMOGLOBIN (BEAKER) (test 28.6 pg 25.6-32.2 xtuf=279) MEAN CORPUSCULAR HEMOGLOBIN CONC (BEAKER) (test 29.9 GM/DL 32.2-35.5 ugnd=184) RED CELL DISTRIBUTION WIDTH (BEAKER) (test 14.8 % 11.7-14.4 fwfw=622) PLATELET COUNT (BEAKER) (test asov=317) 166 K/CU MM 150-450 MEAN PLATELET VOLUME (BEAKER) (test wbei=169) 11.6 fL 9.4-12.3 NUCLEATED RED BLOOD CELLS (BEAKER) (test 0 /100 WBC 0-0 mpbg=285) NEUTROPHILS RELATIVE PERCENT (BEAKER) (test 90 % ddik=242) LYMPHOCYTES RELATIVE PERCENT (BEAKER) (test 4 % mxcq=505) MONOCYTES RELATIVE PERCENT (BEAKER) (test 4 % ukjg=156) EOSINOPHILS RELATIVE PERCENT (BEAKER) (test 0 % begk=531) BASOPHILS RELATIVE PERCENT (BEAKER) (test 0 % olfz=359) NEUTROPHILS ABSOLUTE COUNT (BEAKER) (test 14.45 K/ L 1.56-6.13 khjt=707) LYMPHOCYTES ABSOLUTE COUNT (BEAKER) (test 0.66 K/ L 1.18-3.74 wewj=254) MONOCYTES ABSOLUTE COUNT (BEAKER) (test 0.70 K/ L 0.24-0.36 vjwp=621) EOSINOPHILS ABSOLUTE COUNT (BEAKER) (test 0.01 K/ L 0.04-0.36 vogr=443) BASOPHILS ABSOLUTE COUNT (BEAKER) (test 0.06 K/ L 0.01-0.08 llje=404) IMMATURE GRANULOCYTES-RELATIVE PERCENT (BEAKER) 1 % 0-1 (test tnao=5750) POCT-GLUCOSE [id number] 00:24:00 Test Item Value Reference Range Comments POC-GLUCOSE METER (BEAKER) 117 mg/dL 70-[address] [facility] [address] [facility] (test mlby=0718) [facility] [address] POCT-GLUCOSE [id number] 17:07:00 Test Item Value Reference Range Comments POC-GLUCOSE METER (BEAKER) 132 mg/dL 70-[address] [facility] [facility] [address] [facility] (test taqs=2324) [facility] [address] RAD, ABDOMEN/KUB, 1 VIEW [id number] 15:02:00Reason for exam:->nausea and eructationsFINAL REPORT TECHNIQUE: [...] the spine. Bones are osteopenic. [facility] Verified Date/Time: 03/19/2018 15:02:35 Reading Location: [facility] Radiology Reading Room POCT- GLUCOSE [id number] 10:23:00 Test Item Value Reference Range Comments POC-GLUCOSE METER (BEAKER) 111 mg/dL 70-110 TESTED AT [address] (test ajfa=8987) [facility] [address] RAD, CHEST, 1 VIEW, NON [id number] 08:26:00Reason for exam:->post cardiovascular procedureShould this be [...] Garrett Verified Date/Time: 03/19/2018 08:26:26 Reading Location: [facility] Radiology Reading Room POCT-GLUCOSE [id number] 06:09:00 Test Item Value Reference Range Comments POC-GLUCOSE METER (BEAKER) 120 mg/dL 70-110 TESTED AT [address] (test adkm=5512) [place] [id number] POCT-GLUCOSE [id number] 06:09:00 Test Item Value Reference Range Comments POC-GLUCOSE METER (BEAKER) 120 mg/dL 70-110 TESTED AT [address] (test rifb=9863) [place] [id number] 04:28:00 Test Item Value Reference Range Comments MAGNESIUM (BEAKER) (test 2.2 mg/dL 1.6-2.6 Specimen slightly hemolyzed crxo=362) BASIC METABOLIC [id number] 04:28:00 Test Item Value Reference Range Comments SODIUM (BEAKER) (test 141 meq/L 136-145 ntof=429) POTASSIUM (BEAKER) (test 3.8 meq/L 3.5-5.1 Specimen slightly lgwf=083) hemolyzed CHLORIDE (BEAKER) (test 109 meq/L 98-107 omdu=941) CO2 (BEAKER) (test 24 meq/L 22-29 char=700) BLOOD UREA NITROGEN 30 mg/dL 7-21 (BEAKER) (test uwng=956) CREATININE (BEAKER) (test 0.86 mg/dL 0.57-1.25 Specimen slightly jwjd=742) hemolyzed GLUCOSE RANDOM (BEAKER) 119 mg/dL 70-105 (test bulf=604) CALCIUM (BEAKER) (test 8.9 mg/dL 8.4-10.2 qtnj=695) EGFR (BEAKER) (test 63 mL/min/1.73 sq m ESTIMATED GFR IS NOT dlzz=5443) ACCURATE CREATININE CLEARANCE IN PREDICTING GLOMERULAR FILTRATION RATE. ESTIMATED GFR IS NOT APPLICABLE FOR DIALYSIS PATIENTS. CBC W/PLT COUNT & AUTO [id number] 04:19:00 Test Item Value Reference Range Comments WHITE BLOOD CELL COUNT (BEAKER) (test zili=054) 12.8 K/ L 3.5-10.5 RED BLOOD CELL COUNT (BEAKER) (test rmfk=296) 4.54 M/ L 3.93-5.22 HEMOGLOBIN (BEAKER) (test earf=986) 12.9 GM/DL 11.2-15.7 HEMATOCRIT (BEAKER) (test jfhw=335) 43.3 % 34.1-44.9 MEAN CORPUSCULAR VOLUME (BEAKER) (test wbri=811) 95.4 fL 79.4-94.8 MEAN CORPUSCULAR HEMOGLOBIN (BEAKER) (test 28.4 pg 25.6-32.2 flqs=000) MEAN CORPUSCULAR HEMOGLOBIN CONC (BEAKER) (test 29.8 GM/DL 32.2-35.5 hqdf=064) RED CELL DISTRIBUTION WIDTH (BEAKER) (test 14.8 % 11.7-14.4 mamz=354) PLATELET COUNT (BEAKER) (test uumj=569) 207 K/CU MM 150-450 MEAN PLATELET VOLUME (BEAKER) (test vyyl=142) 11.6 fL 9.4-12.3 NUCLEATED RED BLOOD CELLS (BEAKER) (test 0 /100 WBC 0-0 druh=503) NEUTROPHILS RELATIVE PERCENT (BEAKER) (test 87 % anbi=148) LYMPHOCYTES RELATIVE PERCENT (BEAKER) (test 6 % msoo=176) MONOCYTES RELATIVE PERCENT (BEAKER) (test 6 % igkv=681) EOSINOPHILS RELATIVE PERCENT (BEAKER) (test 0 % uexr=509) BASOPHILS RELATIVE PERCENT (BEAKER) (test 1 % sbuj=618) NEUTROPHILS ABSOLUTE COUNT (BEAKER) (test 11.16 K/ L 1.56-6.13 cpbf=791) LYMPHOCYTES ABSOLUTE COUNT (BEAKER) (test 0.71 K/ L 1.18-3.74 jruz=792) MONOCYTES ABSOLUTE COUNT (BEAKER) (test 0.74 K/ L 0.24-0.36 ahrs=621) EOSINOPHILS ABSOLUTE COUNT (BEAKER) (test 0.02 K/ L 0.04-0.36 chbr=845) BASOPHILS ABSOLUTE COUNT (BEAKER) (test 0.07 K/ L 0.01-0.08 sdoi=849) IMMATURE GRANULOCYTES-RELATIVE PERCENT (BEAKER) 1 % 0-1 (test dfes=0778) BLOOD GAS, [id number] 04:01:00 Test Item Value Reference Range Comments PH ARTERIAL (BEAKER) (test gxmd=380) 7.37 7.35-7.45 PCO2 ARTERIAL (BEAKER) (test bdtz=704) 47 mmHg 35-45 PO2 ARTERIAL (BEAKER) (test glgg=300) 68 mmHg 80-90 O2 SATURATION ARTERIAL (BEAKER) (test jqgj=363) 92.4 % 96.0-97.0 HCO3 ARTERIAL (BEAKER) (test grog=499) 26 mmol/L 21-29 BASE EXCESS ARTERIAL (BEAKER) (test lpbq=020) 0.6 mmol/L -2.0-3.0 PATIENT TEMPERATURE (BEAKER) (test nllc=1707) 37.4 C FIO2 (BEAKER) (test iohc=7767) 40.0 % BLOOD GAS, [id number] 22:23:00 Test Item Value Reference Range Comments PH ARTERIAL (BEAKER) (test wvta=722) 7.40 7.35-7.45 PCO2 ARTERIAL (BEAKER) (test osvi=487) 42 mmHg 35-45 PO2 ARTERIAL (BEAKER) (test hvwo=084) 150 mmHg 80-90 O2 SATURATION ARTERIAL (BEAKER) (test snij=088) 98.9 % 96.0-97.0 HCO3 ARTERIAL (BEAKER) (test giws=122) 25 mmol/L 21-29 BASE EXCESS ARTERIAL (BEAKER) (test curz=391) 0.2 mmol/L -2.0-3.0 PATIENT TEMPERATURE (BEAKER) (test qckw=7190) 36.6 C FIO2 (BEAKER) (test gowt=2414) 40.0 % GLUCOSE-STAT [id number] 22:23:00 Test Item Value Reference Range Comments GLUCOSE RANDOM (BEAKER) (test drir=836) 140 mg/dL 70-110 [id number] 20:01:00 Test Item Value Reference Range Comments POTASSIUM (BEAKER) (test arei=079) 3.7 meq/L 3.5-5.1 8 hours after PO replacement [id number] 20:01:00 Test Item Value Reference Range Comments MAGNESIUM (BEAKER) (test mwlo=047) 2.2 mg/dL 1.6-2.6 8 hours after PO replacement completedBLOOD GAS, [id number] 19:27:00 Test Item Value Reference Range Comments PH ARTERIAL (BEAKER) (test acff=303) 7.40 7.35-7.45 PCO2 ARTERIAL (BEAKER) (test befv=734) 40 mmHg 35-45 PO2 ARTERIAL (BEAKER) (test mhra=690) 93 mmHg 80-90 O2 SATURATION ARTERIAL (BEAKER) (test iizr=004) 97.3 % 96.0-97.0 HCO3 ARTERIAL (BEAKER) (test sjdf=494) 25 mmol/L 21-29 BASE EXCESS ARTERIAL (BEAKER) (test qxqf=088) -0.1 mmol/L -2.0-3.0 PATIENT TEMPERATURE (BEAKER) (test cfvj=2687) 36.6 C FIO2 (BEAKER) (test odou=2635) 40.0 % POCT-GLUCOSE [id number] 19:09:00 Test Item Value Reference Range Comments POC-GLUCOSE METER (BEAKER) 123 mg/dL 70-[address] [facility] [address] [facility] (test lqgy=3544) [facility] [address] POCT-GLUCOSE [id number] 18:02:00 Test Item Value Reference Range Comments POC-GLUCOSE METER (BEAKER) 108 mg/dL 70-110 TESTED AT [address] (test kojn=7670) [facility] [address] POCT-GLUCOSE [id number] 17:06:00 Test Item Value Reference Range Comments POC-GLUCOSE METER (BEAKER) 103 mg/dL 70-110 TESTED AT [address] (test tcla=8237) [facility] [address] POCT-GLUCOSE [id number] 16:00:00 Test Item Value Reference Range Comments POC-GLUCOSE METER (BEAKER) 121 mg/dL 70-110 TESTED AT [address] (test aqks=7947) [facility] [address] POCT-GLUCOSE [id number] 15:45:00 Test Item Value Reference Range Comments POC-GLUCOSE METER (BEAKER) 146 mg/dL 70-110 TESTED AT [address] (test inxy=4207) [facility] [address] BLOOD GAS, [id number] 15:25:00 Test Item Value Reference Range Comments PH ARTERIAL (BEAKER) (test flsc=648) 7.33 7.35-7.45 PCO2 ARTERIAL (BEAKER) (test makc=784) 49 mmHg 35-45 PO2 ARTERIAL (BEAKER) (test lmlf=297) 84 mmHg 80-90 O2 SATURATION ARTERIAL (BEAKER) (test bigo=661) 95.8 % 96.0-97.0 HCO3 ARTERIAL (BEAKER) (test gcsr=103) 25 mmol/L 21-29 BASE EXCESS ARTERIAL (BEAKER) (test fpch=001) -1.3 mmol/L -2.0-3.0 PATIENT TEMPERATURE (BEAKER) (test cykv=0254) 36.6 C FIO2 (BEAKER) (test ehae=4083) 40.0 % PLATELET AGGREGATION: FUNCTION [id number] 13:34:00 Test Item Value Reference Range Comments WEAK ADP RESULT(BEAKER) (test 63 % 60-91 vapj=1514) PLATELET FUNCTION SCREEN 60-100% indicates normal INTERP (BEAKER) (test platelet function edks=0574) [id number] (BEAKER) Teresa De León MD (electronic (test klpw=4878) signature) PLATELET COUNT AGG (BEAKER) 209 K/CU MM 150-450 (test vnbz=4739) for patients on clopidogrel in past two weeksRAD, CHEST, 1 VIEW, NON [id number] 13:15:00Reason for exam:->post cardiovascular procedureShould this [...] MDReport Verified Date/Time: 03/18/2018 13:15:44 Reading Location: [facility] C013W Consult Reading Room [id number] 13:04:00 Test Item Value Reference Range Comments MAGNESIUM (BEAKER) (test jjun=426) 1.8 mg/dL 1.6-2.6 BASIC METABOLIC [id number] 13:04:00 Test Item Value Reference Range Comments SODIUM (BEAKER) (test 140 meq/L 136-145 tvjg=546) POTASSIUM (BEAKER) (test 3.0 meq/L 3.5-5.1 mywj=193) CHLORIDE (BEAKER) (test 109 meq/L 98-107 vnwg=209) CO2 (BEAKER) (test 23 meq/L 22-29 dqlw=420) BLOOD UREA NITROGEN 29 mg/dL 7-21 (BEAKER) (test bjjy=875) CREATININE (BEAKER) (test 0.89 mg/dL 0.57-1.25 lgvi=234) GLUCOSE RANDOM (BEAKER) 142 mg/dL 70-105 (test vxcq=109) CALCIUM (BEAKER) (test 9.3 mg/dL 8.4-10.2 gepz=203) EGFR (BEAKER) (test 61 mL/min/1.73 sq m ESTIMATED GFR IS NOT eypc=6573) ACCURATE CREATININE CLEARANCE IN PREDICTING GLOMERULAR FILTRATION RATE. ESTIMATED GFR IS NOT APPLICABLE FOR DIALYSIS PATIENTS. [id number] 12:43:00 Test Item Value Reference Range Comments PHOSPHORUS (BEAKER) (test pfqe=752) 3.9 mg/dL 2.3-4.7 LACTIC ACID, VENOUS, WHOLE [id number] 12:15:00 Test Item Value Reference Range Comments LACTATE BLOOD VENOUS (2) 1.0 mmol/L 0.5-2.2 Specimen slightly hemolyzed (BEAKER) (test gmxb=7657) Effective 02/09/2016: Units/Reference Range ChangeNew: 0.5-2.2 mmol/L Previous: 5 -20 mg/dLCBC W/PLT COUNT & AUTO [id number] 12:06:00 Test Item Value Reference Range Comments WHITE BLOOD CELL COUNT (BEAKER) (test eedn=675) 14.3 K/ L 3.5-10.5 RED BLOOD CELL COUNT (BEAKER) (test pwwv=581) 4.44 M/ L 3.93-5.22 HEMOGLOBIN (BEAKER) (test gksh=195) 12.9 GM/DL 11.2-15.7 HEMATOCRIT (BEAKER) (test pwbu=334) 41.8 % 34.1-44.9 MEAN CORPUSCULAR VOLUME (BEAKER) (test peeg=561) 94.1 fL 79.4-94.8 MEAN CORPUSCULAR HEMOGLOBIN (BEAKER) (test 29.1 pg 25.6-32.2 koiu=579) MEAN CORPUSCULAR HEMOGLOBIN CONC (BEAKER) (test 30.9 GM/DL 32.2-35.5 dwnp=673) RED CELL DISTRIBUTION WIDTH (BEAKER) (test 14.5 % 11.7-14.4 zmta=175) PLATELET COUNT (BEAKER) (test twjr=988) 176 K/CU MM 150-450 MEAN PLATELET VOLUME (BEAKER) (test gcqz=335) 11.4 fL 9.4-12.3 NUCLEATED RED BLOOD CELLS (BEAKER) (test 0 /100 WBC 0-0 invo=137) NEUTROPHILS RELATIVE PERCENT (BEAKER) (test 91 % evln=427) LYMPHOCYTES RELATIVE PERCENT (BEAKER) (test 6 % luxb=598) MONOCYTES RELATIVE PERCENT (BEAKER) (test 1 % annb=962) EOSINOPHILS RELATIVE PERCENT (BEAKER) (test 0 % ocbh=216) BASOPHILS RELATIVE PERCENT (BEAKER) (test 1 % aigz=515) NEUTROPHILS ABSOLUTE COUNT (BEAKER) (test 13.02 K/ L 1.56-6.13 mpgu=093) LYMPHOCYTES ABSOLUTE COUNT (BEAKER) (test 0.84 K/ L 1.18-3.74 sryt=614) MONOCYTES ABSOLUTE COUNT (BEAKER) (test 0.09 K/ L 0.24-0.36 zirg=688) EOSINOPHILS ABSOLUTE COUNT (BEAKER) (test 0.05 K/ L 0.04-0.36 ptxo=486) BASOPHILS ABSOLUTE COUNT (BEAKER) (test 0.08 K/ L 0.01-0.08 enyf=464) IMMATURE GRANULOCYTES-RELATIVE PERCENT (BEAKER) 2 % 0-1 (test yhwe=8336) HGB/HCT (H&H) - STAT [id number] 12:01:00 Test Item Value Reference Range Comments HEMOGLOBIN (BEAKER) (test oqeg=887) 13.8 g/dL 12.0-15.0 HEMATOCRIT (BEAKER) (test fmoz=522) 41.0 % 36.0-45.0 CALCIUM, [id number] 12:01:00 Test Item Value Reference Range Comments CALCIUM IONIZED (BEAKER) (test lxez=727) 1.25 mmol/L 1.12-1.27 PH, BLOOD (BEAKER) (test tgas=4190) 7.37 BLOOD GAS, [id number] 12:01:00 Test Item Value Reference Range Comments PH ARTERIAL (BEAKER) (test fgea=787) 7.38 7.35-7.45 PCO2 ARTERIAL (BEAKER) (test kgme=405) 46 mmHg 35-45 PO2 ARTERIAL (BEAKER) (test puwp=882) 214 mmHg 80-90 O2 SATURATION ARTERIAL (BEAKER) (test pccx=248) 99.4 % 96.0-97.0 HCO3 ARTERIAL (BEAKER) (test ooii=234) 26 mmol/L 21-29 BASE EXCESS ARTERIAL (BEAKER) (test svrb=405) 0.5 mmol/L -2.0-3.0 PATIENT TEMPERATURE (BEAKER) (test dxpu=8499) 36.7 C FIO2 (BEAKER) (test hxca=6876) 60.0 % POTASSIUM-STAT [id number] 12:01:00 Test Item Value Reference Range Comments POTASSIUM (BEAKER) (test rxlu=204) 3.0 meq/L 3.6-5.5 GLUCOSE-STAT [id number] 12:01:00 Test Item Value Reference Range Comments GLUCOSE RANDOM (BEAKER) (test yspk=947) 139 mg/dL 70-110 BLOOD GAS, [id number] 10:42:00 Test Item Value Reference Range Comments PH ARTERIAL (BEAKER) (test yahz=937) 7.39 7.35-7.45 PCO2 ARTERIAL (BEAKER) (test uzrb=112) 45 mmHg 35-45 PO2 ARTERIAL (BEAKER) (test rmcz=807) 260 mmHg 80-90 O2 SATURATION ARTERIAL (BEAKER) (test xoeq=883) 99.6 % 96.0-97.0 HCO3 ARTERIAL (BEAKER) (test kpvu=828) 26 mmol/L 21-29 BASE EXCESS ARTERIAL (BEAKER) (test uljz=654) 0.7 mmol/L -2.0-3.0 PATIENT TEMPERATURE (BEAKER) (test cjaz=8944) 36.7 C FIO2 (BEAKER) (test fgei=9675) 50.0 % POTASSIUM-STAT [id number] 10:42:00 Test Item Value Reference Range Comments POTASSIUM (BEAKER) (test tjbu=315) 3.1 meq/L 3.6-5.5 GLUCOSE-STAT [id number] 10:42:00 Test Item Value Reference Range Comments GLUCOSE RANDOM (BEAKER) (test ipqo=274) 139 mg/dL 70-110 CALCIUM, [id number] 10:41:00 Test Item Value Reference Range Comments CALCIUM IONIZED (BEAKER) (test ppot=548) 1.27 mmol/L 1.12-1.27 PH, BLOOD (BEAKER) (test oyiy=5564) 7.38 SODIUM NA-STAT [id number] 10:40:00 Test Item Value Reference Range Comments SODIUM (BEAKER) (test quyi=690) 141 meq/L 135-148 HGB/HCT (H&H) - STAT [id number] 10:40:00 Test Item Value Reference Range Comments HEMOGLOBIN (BEAKER) (test wwrc=332) 13.7 g/dL 12.0-15.0 HEMATOCRIT (BEAKER) (test nzha=918) 40.0 % 36.0-45.0 BLOOD GAS, [id number] 09:53:00 Test Item Value Reference Range Comments PH ARTERIAL (BEAKER) (test kbqe=744) 7.45 7.35-7.45 PCO2 ARTERIAL (BEAKER) (test qxih=293) 38 mmHg 35-45 PO2 ARTERIAL (BEAKER) (test rtql=672) 187 mmHg 80-90 O2 SATURATION ARTERIAL (BEAKER) (test cdla=925) 99.4 % 96.0-97.0 HCO3 ARTERIAL (BEAKER) (test oljs=769) 26 mmol/L 21-29 BASE EXCESS ARTERIAL (BEAKER) (test npgj=555) 1.7 mmol/L -2.0-3.0 PATIENT TEMPERATURE (BEAKER) (test fxmk=8040) 36.0 C FIO2 (BEAKER) (test dbpq=0975) 50.0 % POTASSIUM-STAT [id number] 09:53:00 Test Item Value Reference Range Comments POTASSIUM (BEAKER) (test mrdm=348) 3.0 meq/L 3.6-5.5 GLUCOSE-STAT [id number] 09:53:00 Test Item Value Reference Range Comments GLUCOSE RANDOM (BEAKER) (test voea=108) 135 mg/dL 70-110 CALCIUM, [id number] 09:53:00 Test Item Value Reference Range Comments CALCIUM IONIZED (BEAKER) (test jxyu=129) 1.01 mmol/L 1.12-1.27 PH, BLOOD (BEAKER) (test voha=4256) 7.43 SODIUM NA-STAT [id number] 09:51:00 Test Item Value Reference Range Comments SODIUM (BEAKER) (test vaxh=466) 137 meq/L 135-148 HGB/HCT (H&H) - STAT [id number] 09:51:00 Test Item Value Reference Range Comments HEMOGLOBIN (BEAKER) (test ossb=822) 14.1 g/dL 12.0-15.0 HEMATOCRIT (BEAKER) (test wfnk=312) 41.0 % 36.0-45.0 BLOOD GAS, [id number] 08:48:00 Test Item Value Reference Range Comments PH ARTERIAL (BEAKER) (test ybjw=351) 7.43 7.35-7.45 PCO2 ARTERIAL (BEAKER) (test okye=450) 47 mmHg 35-45 PO2 ARTERIAL (BEAKER) (test caxp=315) 481 mmHg 80-90 O2 SATURATION ARTERIAL (BEAKER) (test jgia=438) 99.9 % 96.0-97.0 HCO3 ARTERIAL (BEAKER) (test zwbu=126) 31 mmol/L 21-29 BASE EXCESS ARTERIAL (BEAKER) (test avka=883) 5.1 mmol/L -2.0-3.0 PATIENT TEMPERATURE (BEAKER) (test plrp=1568) 36.5 C FIO2 (BEAKER) (test nhdi=3158) 100.0 % POTASSIUM-STAT [id number] 08:48:00 Test Item Value Reference Range Comments POTASSIUM (BEAKER) (test tixs=381) 3.1 meq/L 3.6-5.5 GLUCOSE-STAT [id number] 08:48:00 Test Item Value Reference Range Comments GLUCOSE RANDOM (BEAKER) (test cvfk=483) 116 mg/dL 70-110 HGB/HCT (H&H) - STAT [id number] 08:48:00 Test Item Value Reference Range Comments HEMOGLOBIN (BEAKER) (test akzl=288) 15.5 g/dL 12.0-15.0 HEMATOCRIT (BEAKER) (test ndnq=055) 46.0 % 36.0-45.0 CALCIUM, [id number] 08:47:00 Test Item Value Reference Range Comments CALCIUM IONIZED (BEAKER) (test omtb=481) 1.12 mmol/L 1.12-1.27 PH, BLOOD (BEAKER) (test hpqf=3394) 7.42 SODIUM NA-STAT [id number] 08:46:00 Test Item Value Reference Range Comments SODIUM (BEAKER) (test hilf=975) 141 meq/L 135-148 POCT-GLUCOSE [id number] 07:58:00 Test Item Value Reference Range Comments POC-GLUCOSE METER (BEAKER) 105 mg/dL 70-[address] [facility] [address] [facility] (test nnyd=7086) [place] [address] [id number] 15:19:00 Test Item Value Reference Range Comments PARTIAL THROMBOPLASTIN TIME (BEAKER) (test 27.8 seconds 22.5-36.0 jsdg=746) PROTHROMBIN [id number] 15:18:00 Test Item Value Reference Range Comments PROTIME (BEAKER) (test stws=570) 14.4 seconds 11.7-14.7 INR (BEAKER) (test oeep=091) 1.1 <=5.9 RECOMMENDED COUMADIN/WARFARIN INR THERAPY RANGESSTANDARD DOSE: 2.0 - 3.0 Includes: PROPHYLAXIS forvenous thrombosis, systemic embolization; TREATMENT for venous thrombosis and/or pulmonary embolus.HIGH RISK: Target INR is 2.5-3.5 for patients with mechanical heart valves.COMPREHENSIVE METABOLIC [id number] 15:10:00 Test Item Value Reference Range Comments TOTAL PROTEIN (BEAKER) 7.7 gm/dL 6.0-8.3 (test zwyx=336) ALBUMIN (BEAKER) (test 4.1 g/dL 3.5-5.0 hdsy=0935) ALKALINE PHOSPHATASE 40 U/L 40-150 (BEAKER) (test xotl=562) BILIRUBIN TOTAL (BEAKER) 0.8 mg/dL 0.2-1.2 (test iyby=633) SODIUM (BEAKER) (test 143 meq/L 136-145 ymkj=932) POTASSIUM (BEAKER) (test 4.1 meq/L 3.5-5.1 suki=340) CHLORIDE (BEAKER) (test 101 meq/L 98-107 jqpq=046) CO2 (BEAKER) (test 30 meq/L 22-29 dovu=261) BLOOD UREA NITROGEN 31 mg/dL 7-21 (BEAKER) (test jsto=038) CREATININE (BEAKER) (test 1.17 mg/dL 0.57-1.25 ccxm=470) GLUCOSE RANDOM (BEAKER) 142 mg/dL 70-105 (test jdam=566) CALCIUM (BEAKER) (test 10.5 mg/dL 8.4-10.2 joqp=231) AST (SGOT) (BEAKER) (test 28 U/L 5-34 lhkw=857) ALT (SGPT) (BEAKER) (test 18 U/L 6-55 rfxr=930) EGFR (BEAKER) (test 44 mL/min/1.73 sq m ESTIMATED GFR IS NOT vfll=8648) ACCURATE CREATININE CLEARANCE IN PREDICTING GLOMERULAR FILTRATION RATE. ESTIMATED GFR IS NOT APPLICABLE FOR DIALYSIS PATIENTS. RAD, CHEST, 2 [id number] 14:44:00Reason for exam:->preopFINAL REPORT Chest two views [...] MDReport Verified Date/Time: 03/11/2018 14:44:31 Reading Location: [facility] C013W Consult Reading Room CBC W/PLT COUNT & AUTO [id number] 14:43:00 Test Item Value Reference Range Comments WHITE BLOOD CELL COUNT (BEAKER) (test shhl=328) 7.8 K/ L 3.5-10.5 RED BLOOD CELL COUNT (BEAKER) (test wmmi=765) 5.48 M/ L 3.93-5.22 HEMOGLOBIN (BEAKER) (test ybuz=878) 15.6 GM/DL 11.2-15.7 HEMATOCRIT (BEAKER) (test vbqu=218) 51.3 % 34.1-44.9 MEAN CORPUSCULAR VOLUME (BEAKER) (test yxrw=045) 93.6 fL 79.4-94.8 MEAN CORPUSCULAR HEMOGLOBIN (BEAKER) (test 28.5 pg 25.6-32.2 hpfv=042) MEAN CORPUSCULAR HEMOGLOBIN CONC (BEAKER) (test 30.4 GM/DL 32.2-35.5 rrmj=604) RED CELL DISTRIBUTION WIDTH (BEAKER) (test 14.2 % 11.7-14.4 ghia=185) PLATELET COUNT (BEAKER) (test tmuu=093) 251 K/CU MM 150-450 MEAN PLATELET VOLUME (BEAKER) (test katd=759) 11.4 fL 9.4-12.3 NUCLEATED RED BLOOD CELLS (BEAKER) (test 0 /100 WBC 0-0 whki=904) NEUTROPHILS RELATIVE PERCENT (BEAKER) (test 85 % pgkn=372) LYMPHOCYTES RELATIVE PERCENT (BEAKER) (test 10 % imma=495) MONOCYTES RELATIVE PERCENT (BEAKER) (test 3 % zrtx=320) EOSINOPHILS RELATIVE PERCENT (BEAKER) (test 0 % ttma=473) BASOPHILS RELATIVE PERCENT (BEAKER) (test 1 % wdeb=275) NEUTROPHILS ABSOLUTE COUNT (BEAKER) (test 6.61 K/ L 1.56-6.13 nkof=275) LYMPHOCYTES ABSOLUTE COUNT (BEAKER) (test 0.79 K/ L 1.18-3.74 uzed=266) MONOCYTES ABSOLUTE COUNT (BEAKER) (test 0.26 K/ L 0.24-0.36 vlwd=523) EOSINOPHILS ABSOLUTE COUNT (BEAKER) (test 0.01 K/ L 0.04-0.36 fgna=660) BASOPHILS ABSOLUTE COUNT (BEAKER) (test 0.07 K/ L 0.01-0.08 eish=053) IMMATURE GRANULOCYTES-RELATIVE PERCENT (BEAKER) 1 % 0-1 (test iqli=5301)
[2019-03-09] MEDS ORDERED: ACETAMINOPHEN 500 MG TAB ONE (01:18)
--- NOTE | 2019-03-09 02:21 | ER ---
Nurse's Notes [facility] Name: Fanny Arceo Age: 83 yrs Sex: Female : 1935 Arrival Date: 03/09/2019 Time: 00:05 Bed 17 Private MD: Sherry Stock R Diagnosis: Headache;Essential (primary) hypertension Presentation: 03/09 00:28 Presenting complaint: Patient states: 210/100 blood pressure at home at 2330 after ak1 taking a new medication today Isorsorbide mono XR 60mg. Transition of care: patient was not received from another setting of care. Onset of symptoms was March 09, 2019. Risk Assessment: Do you want to hurt yourself or someone else? Patient reports no desire to harm self or others. Initial Sepsis Screen: Does the patient meet any 2 criteria? No. Patient's initial sepsis screen is negative. Does the patient have a suspected source of infection? No. Patient's initial sepsis screen is negative. Care prior to arrival: None. 00:28 Method Of Arrival: Wheelchair ak1 00:28 Acuity: JESSE 3 ak1 Triage Assessment: 00:38 General: Appears in no apparent distress. Behavior is calm, cooperative. Pain: ak1 Complains of pain in headache. EENT: No signs and/or symptoms were reported regarding the EENT system. Neuro: No deficits noted. Cardiovascular: No deficits noted. Respiratory: No deficits noted. GI: No signs and/or symptoms were reported involving the gastrointestinal system. : No signs and/or symptoms were reported regarding the genitourinary system. Derm: No signs and/or symptoms reported regarding the dermatologic system. Musculoskeletal: No signs and/or symptoms reported regarding the musculoskeletal system. Historical: - Allergies: 00:36 Ticlopidine HCl; ak1 00:36 Sulfa (Sulfonamide Antibiotics); ak1 00:36 Simvastatin; ak1 00:36 Morphine; ak1 00:36 Atenolol; ak1 - Home Meds: 00:36 albuterol sulfate 2.5 mg /3 mL (0.083 %) Inhl nebu Q 4 hrs PRN [Active]; aspirin 325 mg ak1 Oral TbEC 1 tab once daily [Active]; gabapentin 600 mg Oral tab 1 tab twice a day [Active]; famotidine 40 mg Oral tab 1 tab once daily [Active]; Zoloft 50 mg Oral tab 1 tab nightly [Active]; Ultram 50 mg Oral tab 1 tab twice a day [Active]; prednisone 10 mg oral tab 1 tab once daily [Active]; levothyroxine 125 mcg tab 1 tab once daily [Active]; amlodipine 5 mg tab 1 tab once daily [Active]; metoprolol tartrate 25 mg Oral tab 1 tab once daily [Active]; losartan-hydrochlorothiazide 100-25 mg oral tab 1 tab once daily [Active]; fenofibrate oral 145 mg oral 1 cap once daily [Active]; isorsorbide 60mg daily [Active]; - PMHx: 00:36 Atrial Fib; CAD; CHF; Clot to right arm; COPD; chronic renal failure; Depression; ak1 Diabetes - IDDM; GERD; High Cholesterol; Hyperlipidemia; Hypertension; Hypothyroidism; neuropathy; Sleep Apnea; - PSHx: 00:36 Hysterectomy; Cholecystectomy; Appendectomy; pacemaker; Heart stents; Aneurysm of Leg ak1 Artery; - Immunization history:: Adult Immunizations up to date. - Social history:: Smoking status: Patient/guardian denies using tobacco, the patient reports quitting approximately 19 years ago. - Ebola Screening: : No symptoms or risks identified at this time. Screenin:38 Abuse screen: Denies threats or abuse. Denies injuries from another. Nutritional ak1 screening: No deficits noted. Tuberculosis screening: No symptoms or risk factors identified. Fall Risk None identified. Assessment: 00:41 Reassessment: Patient appears in no apparent distress at this time. No changes from ak1 previously documented assessment. see triage assessment. 02:12 Reassessment: pt returned from CT. ak1 02:23 Reassessment: Patient appears in no apparent distress at this time. No changes from ak1 previously documented assessment. Patient and/or family updated on plan of care and expected duration. Pain level reassessed. Patient is alert, oriented x 3, equal unlabored respirations, skin warm/dry/pink. Patient states feeling better. Patient states symptoms have improved. Vital Signs: 00:28 BP 164 / 81; Pulse 69; Resp 20; Temp 98.2(O); Pulse Ox 96% on R/A; Weight 86.18 kg (R); ak1 Height 5 ft. 6 in. (167.64 cm) (R); Pain 7/10; 00:41 BP 142 / 61; Pulse 69; Resp 20; Pulse Ox 95% on R/A; ak1 00:47 BP 130 / 63; Pulse 69; Resp 20; Pulse Ox 94% on R/A; ak1 02:28 BP 141 / 87; Pulse 79; Resp 20; Temp 98; Pulse Ox 94% on R/A; Pain 3/10; ak1 00:28 Body Mass Index 30.67 (86.18 kg, 167.64 cm) ak1 ED Course: 00:05 Patient arrived in ED. es 00:06 Sherry Stock MD is Private Physician. es 00:24 [facility] pm1 00:24 Alexi Pearce MD is Attending Physician. pm1 00:28 Luly Rios, NIKOLAS is Primary Nurse. ak1 00:29 Triage completed. ak1 00:38 Arm band placed on Patient placed in an exam room, on a stretcher, Patient notified of ak1 wait time. 00:42 Patient has correct armband on for positive identification. Placed in gown. Bed in low ak1 position. Call light in reach. Side rails up X2. Adult w/ patient. Pulse ox on. NIBP on. 02:04 CT Head Brain wo Cont In Process Unspecified. EDMS 02:20 Emir Armstrong MD is Referral Physician. pm1 02:20 Referral Physician role handed off by Emir Armsrtong MD pm1 02:20 Amadeo Jin MD is Referral Physician. pm1 02:24 No provider procedures requiring assistance completed. Patient did not have IV access ak1 during this emergency room visit. Administered Medications: 01:07 Drug: Tylenol 1000 mg Route: PO; ak1 02:30 Follow up: Response: No adverse reaction; Pain is decreased ak1 Outcome: 02:21 Discharge ordered by . pm1 02:24 Discharged to home via wheelchair, with family. ak1 02:24 Condition: good 02:24 Discharge instructions given to patient, family, Instructed on discharge instructions, follow up and referral plans. Demonstrated understanding of instructions, follow-up care. 02:48 Patient left the ED. ak1 Signatures: Dispatcher [employer] [facility] Ann Gar Amber, RN RN ak1 Luisito Kim, GRAY MIXING OPERATOR GRAY MIXING OPERATOR pm1
--- NOTE | 2019-03-09 02:21 | EDPHYS ---
Physician Documentation [facility] Name: Fanny Arceo Age: 83 yrs Sex: Female : 1935 Arrival Date: 03/09/2019 Time: 00:05 Bed 17 Private MD: Sherry Stock R ED Physician Alexi Pearce HPI: 03/09 00:45 This 83 yrs old Female presents to ER via Wheelchair with complaints of pm1 Headache. 00:45 The patient has elevated blood pressure and discovered this at home, with a home pm1 device, blood pressure has improved but patient with headache that started a few hours after taking isosorbide mononitrate for the first time. Onset: The symptoms/episode began/occurred yesterday. Modifying factors: The symptoms are aggravated by new medication. Associated signs and symptoms: Pertinent positives: headache, Pertinent negatives: chest pain, nausea, vomiting, shortness of breath greater than baseline COPD. Severity of symptoms: in the emergency department the blood pressure is improved. Patient had complaints of sleepiness with her Ranexa and contacted her assignment desk assistant. Patient was prescribed Isosorbide mononitrate 60 mg and took her first dose yesterday. A few hours after taking it she experienced a headache in the frontal area. Patient's blood pressure has improved. Historical: - Allergies: 00:36 Ticlopidine HCl; ak1 00:36 Sulfa (Sulfonamide Antibiotics); ak1 00:36 Simvastatin; ak1 00:36 Morphine; ak1 00:36 Atenolol; ak1 - Home Meds: 00:36 albuterol sulfate 2.5 mg /3 mL (0.083 %) Inhl nebu Q 4 hrs PRN [Active]; aspirin 325 mg ak1 Oral TbEC 1 tab once daily [Active]; gabapentin 600 mg Oral tab 1 tab twice a day [Active]; famotidine 40 mg Oral tab 1 tab once daily [Active]; Zoloft 50 mg Oral tab 1 tab nightly [Active]; Ultram 50 mg Oral tab 1 tab twice a day [Active]; prednisone 10 mg oral tab 1 tab once daily [Active]; levothyroxine 125 mcg tab 1 tab once daily [Active]; amlodipine 5 mg tab 1 tab once daily [Active]; metoprolol tartrate 25 mg Oral tab 1 tab once daily [Active]; losartan-hydrochlorothiazide 100-25 mg oral tab 1 tab once daily [Active]; fenofibrate oral 145 mg oral 1 cap once daily [Active]; isorsorbide 60mg daily [Active]; - PMHx: 00:36 Atrial Fib; CAD; CHF; Clot to right arm; COPD; chronic renal failure; Depression; ak1 Diabetes - IDDM; GERD; High Cholesterol; Hyperlipidemia; Hypertension; Hypothyroidism; neuropathy; Sleep Apnea; - PSHx: 00:36 Hysterectomy; Cholecystectomy; Appendectomy; pacemaker; Heart stents; Aneurysm of Leg ak1 Artery; - Immunization history:: Adult Immunizations up to date. - Social history:: Smoking status: Patient/guardian denies using tobacco, the patient reports quitting approximately 19 years ago. - Ebola Screening: : No symptoms or risks identified at this time. ROS: 00:45 Constitutional: Negative for fever, chills, and weight loss, Eyes: Negative for injury, pm1 pain, redness, and discharge, ENT: Negative for injury, pain, and discharge, Neck: Negative for injury, pain, and swelling, Cardiovascular: Negative for chest pain, palpitations, and edema, Respiratory: Negative for shortness of breath, cough, wheezing, and pleuritic chest pain, Abdomen/GI: Negative for abdominal pain, nausea, vomiting, diarrhea, and constipation, Back: Negative for injury and pain, : Negative for injury, bleeding, discharge, and swelling, MS/Extremity: Negative for injury and deformity, Skin: Negative for injury, rash, and discoloration. 00:45 Neuro: Positive for headache, Negative for altered mental status, dizziness, numbness, tingling, weakness. Exam: 00:45 Constitutional: This is a well developed, well nourished patient who is awake, alert, pm1 and in no acute distress. Head/Face: Normocephalic, atraumatic. Eyes: Pupils equal round and reactive to light, extra-ocular motions intact. Lids and lashes normal. Conjunctiva and sclera are non-icteric and not injected. Cornea within normal limits. Periorbital areas with no swelling, redness, or edema. ENT: Nares patent. No nasal discharge, no septal abnormalities noted. Tympanic membranes are normal and external auditory canals are clear. Oropharynx with no redness, swelling, or masses, exudates, or evidence of obstruction, uvula midline. Mucous membranes moist. Neck: Trachea midline, no thyromegaly or masses palpated, and no cervical lymphadenopathy. Supple, full range of motion without nuchal rigidity, or vertebral point tenderness. No Meningismus. Chest/axilla: Normal chest wall appearance and motion. Nontender with no deformity. No lesions are appreciated. Cardiovascular: Regular rate and rhythm with a normal S1 and S2. No gallops, murmurs, or rubs. Normal PMI, no JVD. No pulse deficits. Respiratory: Lungs have equal breath sounds bilaterally, clear to auscultation and percussion. No rales, rhonchi or wheezes noted. No increased work of breathing, no retractions or nasal flaring. Abdomen/GI: Soft, non-tender, with normal bowel sounds. No distension or tympany. No guarding or rebound. No evidence of tenderness throughout. Back: No spinal tenderness. No costovertebral tenderness. Full range of motion. Skin: Warm, dry with normal turgor. Normal color with no rashes, no lesions, and no evidence of cellulitis. MS/ Extremity: Pulses equal, no cyanosis. Neurovascular intact. Full, normal range of motion. 00:45 Neuro: Orientation: is normal, Motor: is normal, moves all fours, Sensation: is normal, no obvious gross deficits. Vital Signs: 00:28 BP 164 / 81; Pulse 69; Resp 20; Temp 98.2(O); Pulse Ox 96% on R/A; Weight 86.18 kg (R); ak1 Height 5 ft. 6 in. (167.64 cm) (R); Pain 7/10; 00:41 BP 142 / 61; Pulse 69; Resp 20; Pulse Ox 95% on R/A; ak1 00:47 BP 130 / 63; Pulse 69; Resp 20; Pulse Ox 94% on R/A; ak1 02:28 BP 141 / 87; Pulse 79; Resp 20; Temp 98; Pulse Ox 94% on R/A; Pain 3/10; ak1 00:28 Body Mass Index 30.67 (86.18 kg, 167.64 cm) ak1 MDM: 00:33 Patient medically screened. pm1 01:52 Data reviewed: vital signs. Data interpreted: Pulse oximetry: on room air is 95 %. pm1 Interpretation: normal. 02:19 Counseling: I had a detailed discussion with the patient and/or guardian regarding: the pm1 historical points, exam findings, and any diagnostic results supporting the discharge/admit diagnosis, radiology results, the need for outpatient follow up, to return to the emergency department if symptoms worsen or persist or if there are any questions or concerns that arise at home. 03/09 00:44 Order name: CT Head Brain wo Cont pm1 Administered Medications: 01:07 Drug: Tylenol 1000 mg Route: PO; ak1 02:30 Follow up: Response: No adverse reaction; Pain is decreased ak1 Disposition: 03/09/19 02:21 Discharged to Home. Impression: Headache, Essential (primary) hypertension. - Condition is Stable. - Discharge Instructions: General Headache Without Cause, Hypertension, How to Take Your Blood Pressure, [id number], DASH Eating Plan, Managing Your Hypertension. - Medication Reconciliation Form, Thank You Letter, Antibiotic Education, Prescription Opioid Use form. - Follow up: Emergency Department; When: As needed; Reason: Worsening of condition. Follow up: Emir Armstrong MD; When: 2 - 3 days; Reason: Recheck today's complaints, Continuance of care, Re-evaluation by your physician. Follow up: Private Physician; When: 2 - 3 days; Reason: Recheck today's complaints, Continuance of care, Re-evaluation by your physician. Follow up: Amadeo Jin MD; When: 2 - 3 days; Reason: Recheck today's complaints, Continuance of care, Re-evaluation by your physician. - Problem is new. - Symptoms have improved. Addendum: 03/10/2019 15:51 Co-signature as Attending Physician, Alexi Pearce MD. g s Signatures: Dispatcher [employer] EDTN Luly Rios RN RN ak1 Luisito Kim, CD TECHNICIAN CD TECHNICIAN pm1 Alexi Pearce MD MD Corrections: (The following items were deleted from the chart) 03/09 02:48 02:21 03/09/2019 02:21 Discharged to Home. Impression: Headache; Essential (primary) ak1 hypertension. Condition is Stable. Forms are Medication Reconciliation Form, Thank You Letter, Antibiotic Education, Prescription Opioid Use. Follow up: Emergency Department; When: As needed; Reason: Worsening of condition. Follow up: Private Physician; When: 2 - 3 days; Reason: Recheck today's complaints, Continuance of care, Re-evaluation by your physician. Follow up: Amadeo Jin; When: 2 - 3 days; Reason: Recheck today's complaints, Continuance of care, Re-evaluation by your physician. Problem is new. Symptoms have improved. pm1
[2019-03-09 03:28] VITALS: O2SAT 94
[2019-03-09 03:30] VITALS: BP 141/87; TEMP 98
--- NOTE | 2019-03-10 11:16 | RAD REPORT ---
EXAM DESCRIPTION: CT - Head Brain Wo Cont - 03/09/2019 2:04 am CLINICAL HISTORY: 83 years Female HEADACHE COMPARISON: None TECHNIQUE: Contiguous axial images of the brain were obtained without the administration of intraven ous contrast.This exam was performed according to our departmental dose-optimization program which in cludes use of Automated Exposure Control, adjustment of the mA and/or kV according to patient size an d/or use of iterative reconstruction technique. FINDINGS: Brain: No acute intracranial hemorrhage. No extra-axial collection. No mass effect or eliazar iation. Mild prominence of the sulci and cisterns Confluent periventricular and subcortical white m atter hypodensity is noted. Focal hypodensity in the left caudate head. Intracranial vascular calcifi cations. Ventricles: Allowing for underlying cerebral volume loss, ventricular size appears within normal limi ts.. Globes and orbits: Prior cataract surgery. No acute abnormality. Bones: No acute osseous finding. Paranasal sinuses: Paranasal sinuses are clear.. Mastoid air cells: Well pneumatized.. Soft tissues: Within normal limits IMPRESSION: No acute intracranial hemorrhage, hydrocephalus or herniation. Cerebral volume loss, chronic small vessel ischemic changes and prior left caudate lacunar infarct. I f persistent clinical concern for acute ischemia, consider MRI brain without contrast for further lucas luation. Electronically signed by: Prasanth Hernández DO 03/09/2019 2:14 AM CDT Due to temporary technical issues with the PACS/Fluency reporting system, reports are being signed by the in house radiologist as a courtesy to ensure prompt reporting. The interpreting radiologist is f ully responsible for the content of the report.
== END 2019-03-09 02:48 | disposition home or self-care (01) ==
LOC: ER 00:02
DX: R51 Headache (principal); E11.22 Type 2 diabetes mellitus with diabetic chronic kidney disease; I13.0 Hypertensive heart and chronic kidney disease with heart failure and stage 1 through stage 4 chronic kidney disease, or unspecified chronic kidney disease; N18.9 Chronic kidney disease, unspecified; I50.9 Heart failure, unspecified; E78.00 Pure hypercholesterolemia, unspecified; E78.5 Hyperlipidemia, unspecified; E03.9 Hypothyroidism, unspecified; K21.9 Gastro-esophageal reflux disease without esophagitis; Z87.891 Personal history of nicotine dependence; I48.91 Unspecified atrial fibrillation; I25.10 Atherosclerotic heart disease of native coronary artery without angina pectoris; Z79.82 Long term (current) use of aspirin; Z79.4 Long term (current) use of insulin
CPT/HCPCS: 70450; 99284

== ENCOUNTER 2019-06-13 11:54 | Emergency (ER) | payer OTHER, MEDICARE ==
--- OUTSIDE RECORDS SUMMARY | 2019-06-13 11:57 | XMS REPORT | Clinical Summary ---
:1935 Author Organization [facility] Address [address] [place] [address] Care Team Providers Name Role Phone Dayami Shelby Primary Care Provider Mohinder Ritchie Unavailable Allergies Active Allergy Reactions Severity Noted Date Comments Atenolol 03/11/2018 Morphine 03/11/2018 flushing of the face Simvastatin 03/11/2018 Sulfa (Sulfonamide Antibiotics) 03/11/2018 HALLUCINATIONS Ticlopidine 03/11/2018 Medications Medication Sig Dispensed Refills Start Date End Date Status albuterol USE ONE (1) VIAL 6 02/05/2018 Active (PROVENTIL) 2.5 mg VIA NEBULIZER /3 mL (0.083 %) EVERY 6 HOURS nebulizer solution NEEDED. famotidine (PEPCID) TAKE ONE (1) 1 01/22/2018 Active 40 MG tablet TABLET(S) BY MOUTH ONCE A DAY. levothyroxine TAKE ONE (1) 1 02/21/2018 Active (SYNTHROID, TABLET(S) BY LEVOTHROID) 125 MCG MOUTH EVERY tablet MORNING. losartan-hydroCHLOR TAKE ONE (1) 1 02/21/2018 Active Othiazide (HYZAAR) TABLET(S) BY 100-25 mg per MOUTH ONCE A DAY. tablet sertraline (ZOLOFT) 50 mg daily. 0 01/22/2018 Active 50 MG tablet fenofibrate Take 145 mg by 0 Active [...] g by 14 each 0 03/29/2018 Active (GLYCOLAX) 17 gram mouth daily Hold packet for loose stool. predniSONE Take 1 tablet (10 1 03/28/2018 Active (DELTASONE) 10 MG mg total) by tablet mouth daily. HYDROcodone-acetami Take 1 tablet by 30 tablet 0 03/28/2018 Active nophen (NORCO mouth every 4 10-325) 10-325 mg (four) hours as per tablet needed for Pain. Max Daily Amount: 6 tablets ROSALIO-24 200 mg 24 2 (two) times 3 02/05/2018 Active hr daily. capsuleIndications: Post-operative state acetic acid 0.25 % USE 1,000 MLS 0 04/08/2018 Active irrigation DIRECTED DAILY. traMADol (ULTRAM) Take 1 tablet (50 30 tablet 0 04/25/2018 Active 50 mg tablet mg total) by mouth every 8 (eight) hours as needed for Pain. Max Daily Amount: 150 mg ondansetron Take 4 mg by 0 04/27/2018 Active (ZOFRAN-ODT) 4 MG mouth every 8 disintegrating (eight) hours. tablet gabapentin Take 600 mg by 1 06/07/2018 Active (NEURONTIN) 300 MG mouth 2 (two) capsule times daily. aspirin 325 MG EC Take 325 mg by 0 Active tablet mouth daily. aspirin 81 MG EC Take 4 tablets 0 03/28/2018 06/13/20 Discontinued tablet (325 mg total) by 18 mouth daily. senna-docusate Take 1 tablet by 0 03/28/2018 03/28/20 (SENOKOT S) 8.6-50 mouth nightly. 19 mg per tablet clopidogrel Take 1 tablet (75 30 tablet 5 04/26/2018 04/26/20 (PLAVIX) 75 mg mg total) by 19 tablet mouth daily. hydrALAZINE Take 1 tablet (50 90 tablet 5 04/25/2018 04/25/20 (APRESOLINE) 50 MG mg total) by 19 tablet mouth every 8 (eight) hours. rOPINIRole (REQUIP) Take 1 tablet 30 tablet 1 04/25/2018 04/25/20 0.5 MG tablet (0.5 mg total) by 19 mouth nightly. Active Problems Problem Noted Date Wound infection [...] Specialty Care Team Description 06/13/2018 Hospital Encounter Cardiology Billy Mcmanus PVDuglas (peripheral vascular MD Sayda disease) ([facility]) 06/13/2018 Office Visit Cardiology Billy Mcmanus (peripheral vascular MD Sayda disease) ([facility]) (Primary Dx) after 06/12/2018 Social History Tobacco Use Types Packs/Day Years [...] 06/13/2018 9:39 AM CDT Inhaled Oxygen Concentration - - Weight 83.1 kg (183 lb 1.6 oz) 06/13/2018 9:39 AM CDT Height 167.6 cm (5' 6") 06/13/2018 9:39 AM CDT Body Mass Index 29.55 06/13/2018 9:39 AM CDT Plan of Treatment Not on file Implants Implanted Type Area Price Economist Device Shelf Model / Identifier Expiration Serial / Lot Date Grft Vasc Gelsft Plus [id number] - [id number] Graft/Pa N/A: TERUMO: VASCUTEK 11/07/2020 [id number] / Implanted: Qty: 1 on 03/18/2018 by Billy Mcmanus MD [facility] [id number] / [id number] Procedures Procedure Name Priority Date/Time Associated Diagnosis Comments ARRYTHMIA IMPLANT 03/14/2019 8:40 AM REPORT - SCAN CDT ARRYTHMIA IMPLANT 03/14/2019 8:40 AM REPORT - SCAN CDT RHYTHM STRIP - SCAN 01/17/2019 2:21 PM CDT VENOUS DOPPLER LEG, Routine 06/13/2018 11:49 AM PVD (peripheral Results for this LEFT CDT vascular disease) procedure are in (HCC) the results section. after 06/12/2018 Results ARRYTHMIA IMPLANT REPORT - SCAN (03/14/2019 8:40 AM CDT)Only the most recent of2 resultswithin the time period is included. Narrative Performed At RHYTHM STRIP - SCAN (01/17/2019 2:21 PM CDT) Narrative Performed At Venous doppler leg, left (06/13/2018 11:49 AM CDT) [facility] Specimen Impressions Performed At [facility] Left Impression 1. There is no deep [...] PV LAB - Lower Extremities DVT Study [facility] Demographics Patient NameSEDDIE HENDERSONte of Study 06/13/2018 82 Visit [id number] Female of 1935 Number Referring Billy Mcmanus, Room Number Physician Triple Valve Mechanic Thelma HindsInterpretingJ. Benson Pompa, T Physician , JOVITA Cooney. RVT, ARS Procedure Type of Study: Veins: Lower Extremities [...] of Study 06/13/2018 Age 82 Visit Number [id number] Gender Female Date of 1935 Number Referring Billy Mcmanus, Room Number Physician Triple Valve Mechanic Thelma Hinds Interpreting Slime Pompa, T Physician , JOVITA Cooney. RVT, ARS Procedure Type of Study: Veins: Lower Extremities [...] Phone Number [facility] CP[facility] after 06/12/2018 Insurance Payer Benefit Plan / Group Subscriber ID Type Phone Address MEDICARE MEDICARE A B xxxxxxxxxx Medicare MCR SUPPLEMENT/INDIVIDUAL AARP/[facility] xxxxxxxxxxx [facility] Advance Directives For more information, please contact:[address] [phone] Code Status Date Activated Date Inactivated Comments Full Code 04/21/2018 6:51 PM 04/25/2018 7:56 PM This code status was determined by: Patient Full Code 03/18/2018 5:47 AM 03/28/2018 6:27 PM This code status was determined by: Patient
--- OUTSIDE RECORDS SUMMARY | 2019-06-13 12:00 | XMS REPORT ---
:1935 [facility] Address [address] [place] [address] Dr. Aguilar [address] [place] [id number] Care Team Providers Name Role Phone GABRIEL [...] Value Reference Range Comments CULTURE (BEAKER) (test niji=4574) No acid-fast bacilli isolated in 42 days AFB SMEAR (BEAKER) (test zjtv=146) No acid fast bacilli seen FUNGUS CULTURE + [id number] 17:08:00 Test Item Value Reference Range Comments CULTURE (BEAKER) (test No fungus isolated in 28 days kkpr=3691) FUNGUS SMEAR (BEAKER) (test No fungi seen zleq=5208) AFB CULTURE + [id number] 02:56:00 Test Item Value Reference Range Comments CULTURE (BEAKER) (test No acid-fast bacilli isolated egom=8315) in 42 days AFB SMEAR (BEAKER) (test No acid fast bacilli seen xxew=101) ANAEROBIC [id number] 17:45:00 Test Item Value Reference Range Comments CULTURE (BEAKER) (test ugmn=4160) No anaerobes isolated BLOOD [id number] 17:43:00 Test Item Value Reference Range Comments CULTURE (BEAKER) (test amhv=1816) No growth in 5 days BLOOD [id number] 17:43:00 Test Item Value Reference Range Comments CULTURE (BEAKER) (test jrct=2978) No growth in 5 days POCT-GLUCOSE [id number] 12:38:00 Test Item Value Reference Range Comments POC-GLUCOSE METER (BEAKER) 147 mg/dL 70-110 TESTED AT [facility] [address] [facility] (test scay=7295) [facility] [address] WOUND CULTURE + GRAM [id number] 10:46:00 Test Item Value Reference Range Comments CULTURE (PocketGuide) (test PSEUDOMONAS 4+ Pseudomonas zwyk=0312) AERUGINOSA aeruginosa Amikacin (test code=1) Susceptible 0-16 , Resistant <0 or >16 Aztreonam (test Susceptible 0-8 , code=32) Resistant <0 or >8 Cefepime (test code=51) Susceptible 0-8 , Resistant <0 or >8 Ceftazidime (test Susceptible 0-8 , code=27) Resistant <0 or >8 Ciprofloxacin (test Susceptible 0-1 , code=7) Resistant <0 or >1 Doripenem (test Susceptible 0-2 , xgrv=597) Resistant <0 or >2 Gentamicin (test Susceptible [...] , code=25) Resistant <0 or >4 CULTURE (PocketGuide) (test PSEUDOMONAS 4+ Pseudomonas dwce=2705) AERUGINOSA aeruginosaof a second type Amikacin (test code=1) Susceptible 0-16 , Resistant <0 or >16 Aztreonam (test Susceptible 0-8 , code=32) Resistant <0 or >8 Cefepime (test code=51) Susceptible 0-8 , Resistant <0 or >8 Ceftazidime (test Susceptible 0-8 , code=27) Resistant <0 or >8 Ciprofloxacin (test Susceptible 0-1 , code=7) Resistant <0 or >1 Doripenem (test Susceptible 0-2 , bvpe=594) Resistant <0 or >2 Gentamicin (test Susceptible [...] CULTURE (BEAKER) (test KLEBSIELLA PNEUMONIAE <1+ Klebsiella dlhp=8350) pneumoniae Amikacin (test code=1) Ampicillin + Sulbactam (test code=6) Aztreonam (test code=32) Cefepime (test code=51) Cefoxitin (test code=68) Ceftazidime (test code=27) Ceftriaxone (test code=52) Ertapenem (test code=38) Gentamicin (test code=18) Levofloxacin (test code=22) Meropenem (test code=34) Nitrofurantoin (test code=23) Piperacillin + Tazobactam (test code=29) Tetracycline (test code=2) Tobramycin (test code=25) Trimethoprim + Sulfamethoxazole (test code=47) CULTURE (BEAKER) (test COAGULASE NEGATIVE 1+ Coagulase negative cazv=5646) STAPHYLOCOCCUS Staphylococcus Clindamycin (test code=10) Erythromycin (test code=4) Levofloxacin (test code=22) Linezolid (test code=40) Nitrofurantoin (test code=23) Oxacillin (test code=14) Rifampin (test code=43) Tetracycline (test code=2) Trimethoprim + Sulfamethoxazole (test code=47) Vancomycin (test Susceptible 0-4 , code=13) Resistant <0 or >4 CULTURE (BEAKER) (test PSEUDOMONAS 4+ Pseudomonas vxze=8237) AERUGINOSA aeruginosaof a third type Amikacin (test code=1) Susceptible 0-16 , Resistant <0 or >16 Aztreonam (test Susceptible 0-8 , code=32) Resistant <0 or >8 Cefepime (test code=51) Susceptible 0-8 , Resistant <0 or >8 Ceftazidime (test Susceptible 0-8 , code=27) Resistant <0 or >8 Ciprofloxacin (test Susceptible 0-1 , code=7) Resistant <0 or >1 Doripenem (test Susceptible 0-2 , ccax=056) Resistant <0 or >2 Gentamicin (test Susceptible [...] >4 CULTURE (BEAKER) (test <1+ Coagulase negative dabo=2240) Staphylococcusof a second type GRAM STAIN RESULT <1+ WBCs (BEAKER) (test euoe=8034) GRAM STAIN RESULT <1+ gram negative (BEAKER) (test rods mfgs=348242) SURGICALLY OBTAINED CULTURE + GRAM [id number] 08:30:00 Test Item Value Reference Range Comments CULTURE (BEAKER) (test sntl=6629) No growth GRAM STAIN RESULT (BEAKER) (test No WBCs tdql=6081) GRAM STAIN RESULT (BEAKER) (test No organisms seen apgs=81951) POCT-GLUCOSE [id number] 07:23:00 Test Item Value Reference Range Comments POC-GLUCOSE METER (BEAKER) 97 mg/dL 70-110 TESTED AT [address] (test dgrj=3975) [facility] [address] POCT-GLUCOSE [id number] 22:04:00 Test Item Value Reference Range Comments POC-GLUCOSE METER (BEAKER) 177 mg/dL 70-110 TESTED AT [address] (test vtvi=6126) [facility] [address] POCT-GLUCOSE [id number] 17:38:00 Test Item Value Reference Range Comments POC-GLUCOSE METER (BEAKER) 232 mg/dL 70-110 TESTED AT [address] (test fegi=5467) [facility] [address] POCT-GLUCOSE [id number] 12:40:00 Test Item Value Reference Range Comments POC-GLUCOSE METER (BEAKER) 139 mg/dL 70-110 TESTED AT [address] (test mzgv=3154) [facility] [address] POCT-GLUCOSE [id number] 07:47:00 Test Item Value Reference Range Comments POC-GLUCOSE METER (BEAKER) 96 mg/dL 70-110 TESTED AT [address] (test wahz=3723) [facility] [address] POCT-GLUCOSE [id number] 04:52:00 Test Item Value Reference Range Comments POC-GLUCOSE METER (BEAKER) 112 mg/dL 70-110 TESTED AT [address] (test gbzl=4436) [place] [address] POCT-GLUCOSE [id number] 23:28:00 Test Item Value Reference Range Comments POC-GLUCOSE METER (BEAKER) 114 mg/dL 70-110 TESTED AT [address] (test wffv=2846) [place] [address] POCT-GLUCOSE [id number] 17:12:00 Test Item Value Reference Range Comments POC-GLUCOSE METER (BEAKER) 155 mg/dL 70-110 TESTED AT [address] (test grlb=5786) [facility] [address] POCT-GLUCOSE [id number] 12:17:00 Test Item Value Reference Range Comments POC-GLUCOSE METER (BEAKER) 163 mg/dL 70-110 TESTED AT [address] (test uvxw=8326) [place] [address] FUNGUS CULTURE + [id number] 09:29:00 Test Item Value Reference Range Comments CULTURE (BEAKER) (test No fungus isolated in 28 days akeu=7753) FUNGUS SMEAR (BEAKER) (test <1+ hyphal elements seen umes=4566) See smear results.POCT-GLUCOSE [id number] 21:47:00 Test Item Value Reference Range Comments POC-GLUCOSE METER (BEAKER) 211 mg/dL 70-110 TESTED AT [address] (test ksec=0221) [facility] [address] POCT-GLUCOSE [id number] 17:07:00 Test Item Value Reference Range Comments POC-GLUCOSE METER (BEAKER) 160 mg/dL 70-110 TESTED AT [address] (test mhzo=8894) [place] [address] POCT-GLUCOSE [id number] 11:56:00 Test Item Value Reference Range Comments POC-GLUCOSE METER (BEAKER) 108 mg/dL 70-110 TESTED AT [facility] [address] (test ljod=5693) [facility] [address] COMPREHENSIVE METABOLIC [id number] 23:00:00 Test Item Value Reference Range Comments TOTAL PROTEIN (BEAKER) 7.5 gm/dL 6.0-8.3 (test seah=755) ALBUMIN (BEAKER) (test 3.8 g/dL 3.5-5.0 neft=3892) ALKALINE PHOSPHATASE 53 U/L 40-150 (BEAKER) (test brvp=372) BILIRUBIN TOTAL (BEAKER) 0.3 mg/dL 0.2-1.2 (test nvpn=240) SODIUM (BEAKER) (test 138 meq/L 136-145 iilh=276) POTASSIUM (BEAKER) (test 3.9 meq/L 3.5-5.1 vpnj=550) CHLORIDE (BEAKER) (test 101 meq/L 98-107 rejy=187) CO2 (BEAKER) (test 28 meq/L 22-29 ujwt=057) BLOOD UREA NITROGEN 22 mg/dL 7-21 (BEAKER) (test fqrd=681) CREATININE (BEAKER) (test 0.98 mg/dL 0.57-1.25 woiy=193) GLUCOSE RANDOM (BEAKER) 154 mg/dL 70-105 (test gnyd=859) CALCIUM (BEAKER) (test 10.1 mg/dL 8.4-10.2 sfsn=021) AST (SGOT) (BEAKER) (test 20 U/L 5-34 cljb=476) ALT (SGPT) (BEAKER) (test 12 U/L 6-55 eigs=775) EGFR (BEAKER) (test 54 mL/min/1.73 sq m ESTIMATED GFR IS NOT cpuu=7201) ACCURATE CREATININE CLEARANCE IN PREDICTING GLOMERULAR FILTRATION RATE. ESTIMATED GFR IS NOT APPLICABLE FOR DIALYSIS PATIENTS. PROTHROMBIN [id number] 22:52:00 Test Item Value Reference Range Comments PROTIME (BEAKER) (test ajqa=782) 14.0 seconds 11.7-14.7 INR (BEAKER) (test tioi=895) 1.1 <=5.9 RECOMMENDED COUMADIN/WARFARIN INR THERAPY RANGESSTANDARD DOSE: 2.0 - 3.0 Includes: PROPHYLAXIS forvenous thrombosis, systemic embolization; TREATMENT for venous thrombosis and/or pulmonary embolus.HIGH RISK: Target INR is 2.5-3.5 for patients with mechanical heart valves.CBC W/PLT COUNT & AUTO [id number] 22:51:00 Test Item Value Reference Range Comments WHITE BLOOD CELL COUNT (BEAKER) (test seuk=265) 8.7 K/ L 3.5-10.5 RED BLOOD CELL COUNT (BEAKER) (test luwn=426) 4.77 M/ L 3.93-5.22 HEMOGLOBIN (BEAKER) (test gddn=405) 13.6 GM/DL 11.2-15.7 HEMATOCRIT (BEAKER) (test xnsw=630) 45.4 % 34.1-44.9 MEAN CORPUSCULAR VOLUME (BEAKER) (test yznh=887) 95.2 fL 79.4-94.8 MEAN CORPUSCULAR HEMOGLOBIN (BEAKER) (test 28.5 pg 25.6-32.2 jyih=928) MEAN CORPUSCULAR HEMOGLOBIN CONC (BEAKER) (test 30.0 GM/DL 32.2-35.5 mmvk=969) RED CELL DISTRIBUTION WIDTH (BEAKER) (test 15.2 % 11.7-14.4 hgbi=504) PLATELET COUNT (BEAKER) (test qlib=518) 267 K/CU MM 150-450 MEAN PLATELET VOLUME (BEAKER) (test mgla=292) 11.2 fL 9.4-12.3 NUCLEATED RED BLOOD CELLS (BEAKER) (test 0 /100 WBC 0-0 jbbn=351) NEUTROPHILS RELATIVE PERCENT (BEAKER) (test 73 % belp=835) LYMPHOCYTES RELATIVE PERCENT (BEAKER) (test 16 % ujpo=998) MONOCYTES RELATIVE PERCENT (BEAKER) (test 8 % kavk=350) EOSINOPHILS RELATIVE PERCENT (BEAKER) (test 1 % tagx=910) BASOPHILS RELATIVE PERCENT (BEAKER) (test 1 % nyux=176) NEUTROPHILS ABSOLUTE COUNT (BEAKER) (test 6.38 K/ L 1.56-6.13 rxjc=198) LYMPHOCYTES ABSOLUTE COUNT (BEAKER) (test 1.37 K/ L 1.18-3.74 qrsd=296) MONOCYTES ABSOLUTE COUNT (BEAKER) (test 0.73 K/ L 0.24-0.36 qssv=129) EOSINOPHILS ABSOLUTE COUNT (BEAKER) (test 0.12 K/ L 0.04-0.36 uoji=962) BASOPHILS ABSOLUTE COUNT (BEAKER) (test 0.08 K/ L 0.01-0.08 ylwy=296) IMMATURE GRANULOCYTES-RELATIVE PERCENT (BEAKER) 1 % 0-1 (test idfb=8213) POCT-GLUCOSE [id number] 22:47:00 Test Item Value Reference Range Comments POC-GLUCOSE METER (BEAKER) 196 mg/dL 70-110 TESTED AT [address] (test uetn=5110) [place] [address] POCT-GLUCOSE [id number] 17:34:00 Test Item Value Reference Range Comments POC-GLUCOSE METER (BEAKER) 261 mg/dL 70-110 TESTED AT [address] (test elrg=7596) [place] [address] POCT-GLUCOSE [id number] 16:52:00 Test Item Value Reference Range Comments POC-GLUCOSE METER (BEAKER) 254 mg/dL 70-110 TESTED AT [address] (test qghl=7694) [place] [address] POCT-GLUCOSE [id number] 12:24:00 Test Item Value Reference Range Comments POC-GLUCOSE METER (BEAKER) 168 mg/dL 70-110 TESTED AT [address] (test ojgs=3594) [place] [address] POCT-GLUCOSE [id number] 08:52:00 Test Item Value Reference Range Comments POC-GLUCOSE METER (BEAKER) 139 mg/dL 70-110 TESTED AT [address] (test rpnz=3651) [place] [address] CT, [id number] 08:32:00S/p aortic-bilateral femoral bypass with right groin [...] MDReport Verified Date/Time: 04/21/2018 08:32:26 Reading Location: [facility] [id number] Consult Reading Room 08: 32 AMPOCT-GLUCOSE [id number] 21:51:00 Test Item Value Reference Range Comments POC-GLUCOSE METER (BEAKER) 132 mg/dL 70-110 TESTED AT [address] (test qwuy=9829) [place] [address] POCT-GLUCOSE [id number] 16:54:00 Test Item Value Reference Range Comments POC-GLUCOSE METER (BEAKER) 126 mg/dL 70-110 TESTED AT [address] (test luyx=4192) [place] [address] POCT-GLUCOSE [id number] 12:41:00 Test Item Value Reference Range Comments POC-GLUCOSE METER (BEAKER) 163 mg/dL 70-110 TESTED AT [address] (test xtyq=7803) [place] [address] POCT-GLUCOSE [id number] 07:37:00 Test Item Value Reference Range Comments POC-GLUCOSE METER (BEAKER) 96 mg/dL 70-110 TESTED AT [address] (test rfhl=9035) [place] [address] BASIC METABOLIC [id number] 06:21:00 Test Item Value Reference Range Comments SODIUM (BEAKER) (test 142 meq/L 136-145 lbqt=737) POTASSIUM (BEAKER) (test 3.7 meq/L 3.5-5.1 tspi=720) CHLORIDE (BEAKER) (test 102 meq/L 98-107 vlkj=955) CO2 (BEAKER) (test 30 meq/L 22-29 swre=058) BLOOD UREA NITROGEN 22 mg/dL 7-21 (BEAKER) (test nqem=939) CREATININE (BEAKER) (test 1.05 mg/dL 0.57-1.25 rtvo=767) GLUCOSE RANDOM (BEAKER) 88 mg/dL 70-105 (test mvne=363) CALCIUM (BEAKER) (test 10.1 mg/dL 8.4-10.2 nwcb=680) EGFR (BEAKER) (test 50 mL/min/1.73 sq m ESTIMATED GFR IS NOT ccvf=7960) ACCURATE CREATININE CLEARANCE IN PREDICTING GLOMERULAR FILTRATION RATE. ESTIMATED GFR IS NOT APPLICABLE FOR DIALYSIS PATIENTS. CBC W/PLT COUNT & AUTO [id number] 05:46:00 Test Item Value Reference Range Comments WHITE BLOOD CELL COUNT (BEAKER) (test qcqk=862) 7.0 K/ L 3.5-10.5 RED BLOOD CELL COUNT (BEAKER) (test jufp=285) 5.52 M/ L 3.93-5.22 HEMOGLOBIN (BEAKER) (test fwqe=985) 15.6 GM/DL 11.2-15.7 HEMATOCRIT (BEAKER) (test wljn=516) 53.3 % 34.1-44.9 MEAN CORPUSCULAR VOLUME (BEAKER) (test cjik=081) 96.6 fL 79.4-94.8 MEAN CORPUSCULAR HEMOGLOBIN (BEAKER) (test 28.3 pg 25.6-32.2 bimq=184) MEAN CORPUSCULAR HEMOGLOBIN CONC (BEAKER) (test 29.3 GM/DL 32.2-35.5 bldq=362) RED CELL DISTRIBUTION WIDTH (BEAKER) (test 15.3 % 11.7-14.4 jhed=725) PLATELET COUNT (BEAKER) (test iklx=231) 257 K/CU MM 150-450 MEAN PLATELET VOLUME (BEAKER) (test uvpc=412) 11.5 fL 9.4-12.3 NUCLEATED RED BLOOD CELLS (BEAKER) (test 0 /100 WBC 0-0 saez=247) NEUTROPHILS RELATIVE PERCENT (BEAKER) (test 58 % vcfk=373) LYMPHOCYTES RELATIVE PERCENT (BEAKER) (test 25 % hpde=517) MONOCYTES RELATIVE PERCENT (BEAKER) (test 9 % zgob=158) EOSINOPHILS RELATIVE PERCENT (BEAKER) (test 5 % ifha=767) BASOPHILS RELATIVE PERCENT (BEAKER) (test 2 % cauz=619) NEUTROPHILS ABSOLUTE COUNT (BEAKER) (test 4.05 K/ L 1.56-6.13 hvwq=206) LYMPHOCYTES ABSOLUTE COUNT (BEAKER) (test 1.76 K/ L 1.18-3.74 tngf=119) MONOCYTES ABSOLUTE COUNT (BEAKER) (test 0.65 K/ L 0.24-0.36 uxxx=683) EOSINOPHILS ABSOLUTE COUNT (BEAKER) (test 0.33 K/ L 0.04-0.36 njqe=145) BASOPHILS ABSOLUTE COUNT (BEAKER) (test 0.12 K/ L 0.01-0.08 xjqx=236) IMMATURE GRANULOCYTES-RELATIVE PERCENT (BEAKER) 1 % 0-1 (test wduo=8124) POCT-GLUCOSE [id number] 21:11:00 Test Item Value Reference Range Comments POC-GLUCOSE METER (BEAKER) 152 mg/dL 70-110 TESTED AT [address] (test ulbm=8186) [facility] [address] POCT-GLUCOSE [id number] 16:41:00 Test Item Value Reference Range Comments POC-GLUCOSE METER (BEAKER) 100 mg/dL 70-110 TESTED AT [address] (test qtue=8755) [facility] [address] POCT-GLUCOSE [id number] 13:05:00 Test Item Value Reference Range Comments POC-GLUCOSE METER (BEAKER) 127 mg/dL 70-110 TESTED AT [address] (test lgqw=5078) [facility] [address] TSH/FREE T4 IF [id number] 12:05:00 Test Item Value Reference Range Comments THYROID STIMULATING HORMONE (BEAKER) (test 2.75 uIU/mL 0.35-4.94 axvz=765) [id number] 11:48:00 Test Item Value Reference Range Comments MAGNESIUM (BEAKER) (test zeqb=187) 2.2 mg/dL 1.6-2.6 BASIC METABOLIC [id number] 11:48:00 Test Item Value Reference Range Comments SODIUM (BEAKER) (test 142 meq/L 136-145 xiod=189) POTASSIUM (BEAKER) (test 3.7 meq/L 3.5-5.1 xzna=770) CHLORIDE (BEAKER) (test 103 meq/L 98-107 vozg=982) CO2 (BEAKER) (test 30 meq/L 22-29 hcxt=998) BLOOD UREA NITROGEN 27 mg/dL 7-21 (BEAKER) (test kpwt=373) CREATININE (BEAKER) (test 1.19 mg/dL 0.57-1.25 xzgs=033) GLUCOSE RANDOM (BEAKER) 112 mg/dL 70-105 (test rzql=378) CALCIUM (BEAKER) (test 9.6 mg/dL 8.4-10.2 jich=233) EGFR (BEAKER) (test 43 mL/min/1.73 sq m ESTIMATED GFR IS NOT gvif=5424) ACCURATE CREATININE CLEARANCE IN PREDICTING GLOMERULAR FILTRATION RATE. ESTIMATED GFR IS NOT APPLICABLE FOR DIALYSIS PATIENTS. POCT-GLUCOSE [id number] 11:40:00 Test Item Value Reference Range Comments POC-GLUCOSE METER (BEAKER) 118 mg/dL 70-110 TESTED AT [facility] [address] [facility] (test xxsp=0073) [facility] [address] CBC W/PLT COUNT & AUTO [id number] 11:30:00 Test Item Value Reference Range Comments WHITE BLOOD CELL COUNT (BEAKER) (test igkt=414) 7.3 K/ L 3.5-10.5 RED BLOOD CELL COUNT (BEAKER) (test axbq=093) 4.68 M/ L 3.93-5.22 HEMOGLOBIN (BEAKER) (test foxh=701) 13.4 GM/DL 11.2-15.7 HEMATOCRIT (BEAKER) (test vdfw=294) 44.7 % 34.1-44.9 MEAN CORPUSCULAR VOLUME (BEAKER) (test zbrc=690) 95.5 fL 79.4-94.8 MEAN CORPUSCULAR HEMOGLOBIN (BEAKER) (test 28.6 pg 25.6-32.2 vqvg=349) MEAN CORPUSCULAR HEMOGLOBIN CONC (BEAKER) (test 30.0 GM/DL 32.2-35.5 ghge=764) RED CELL DISTRIBUTION WIDTH (BEAKER) (test 15.5 % 11.7-14.4 iwja=963) PLATELET COUNT (BEAKER) (test arzu=380) 260 K/CU MM 150-450 MEAN PLATELET VOLUME (BEAKER) (test envw=493) 10.7 fL 9.4-12.3 NUCLEATED RED BLOOD CELLS (BEAKER) (test 0 /100 WBC 0-0 olne=398) NEUTROPHILS RELATIVE PERCENT (BEAKER) (test 70 % rbcp=154) LYMPHOCYTES RELATIVE PERCENT (BEAKER) (test 19 % qspc=034) MONOCYTES RELATIVE PERCENT (BEAKER) (test 8 % evtg=247) EOSINOPHILS RELATIVE PERCENT (BEAKER) (test 2 % ddrl=372) BASOPHILS RELATIVE PERCENT (BEAKER) (test 1 % mwws=593) NEUTROPHILS ABSOLUTE COUNT (BEAKER) (test 5.11 K/ L 1.56-6.13 kikm=599) LYMPHOCYTES ABSOLUTE COUNT (BEAKER) (test 1.37 K/ L 1.18-3.74 kiwy=900) MONOCYTES ABSOLUTE COUNT (BEAKER) (test 0.59 K/ L 0.24-0.36 zlmz=722) EOSINOPHILS ABSOLUTE COUNT (BEAKER) (test 0.17 K/ L 0.04-0.36 gwzw=649) BASOPHILS ABSOLUTE COUNT (BEAKER) (test 0.07 K/ L 0.01-0.08 suab=451) IMMATURE GRANULOCYTES-RELATIVE PERCENT (BEAKER) 0 % 0-1 (test hjrw=7554) ANAEROBIC [id number] 02:34:00 Test Item Value Reference Range Comments CULTURE (BEAKER) (test xpmh=5320) No anaerobes isolated SURGICALLY OBTAINED CULTURE + GRAM [id number] 14:05:00 Test Item Value Reference Range Comments CULTURE (BEAKER) (test bzip=6563) No growth GRAM STAIN RESULT (BEAKER) (test 1+ WBCs jwbr=6973) GRAM STAIN RESULT (BEAKER) (test No organisms seen nmmn=82008) POCT-GLUCOSE [id number] 12:39:00 Test Item Value Reference Range Comments POC-GLUCOSE METER (BEAKER) 131 mg/dL 70-110 TESTED AT [address] (test rgjy=8278) [facility] [address] POCT-GLUCOSE [id number] 08:01:00 Test Item Value Reference Range Comments POC-GLUCOSE METER (BEAKER) 106 mg/dL 70-110 TESTED AT [address] (test hljt=7327) [facility] [address] BASIC METABOLIC [id number] 06:21:00 Test Item Value Reference Range Comments SODIUM (BEAKER) (test 139 meq/L 136-145 cpwc=348) POTASSIUM (BEAKER) (test 3.6 meq/L 3.5-5.1 uzjc=301) CHLORIDE (BEAKER) (test 102 meq/L 98-107 ejjy=639) CO2 (BEAKER) (test 27 meq/L 22-29 mkcz=142) BLOOD UREA NITROGEN 13 mg/dL 7-21 (BEAKER) (test crhw=288) CREATININE (BEAKER) (test 0.70 mg/dL 0.57-1.25 lvpl=273) GLUCOSE RANDOM (BEAKER) 90 mg/dL 70-105 (test cgpd=952) CALCIUM (BEAKER) (test 9.2 mg/dL 8.4-10.2 bwsu=376) EGFR (BEAKER) (test 80 mL/min/1.73 sq m ESTIMATED GFR IS NOT ryyo=6292) ACCURATE CREATININE CLEARANCE IN PREDICTING GLOMERULAR FILTRATION RATE. ESTIMATED GFR IS NOT APPLICABLE FOR DIALYSIS PATIENTS. CBC W/PLT COUNT & AUTO [id number] 05:48:00 Test Item Value Reference Range Comments WHITE BLOOD CELL COUNT (BEAKER) (test barx=974) 9.7 K/ L 3.5-10.5 RED BLOOD CELL COUNT (BEAKER) (test ynyx=178) 3.69 M/ L 3.93-5.22 HEMOGLOBIN (BEAKER) (test wqlw=898) 10.5 GM/DL 11.2-15.7 HEMATOCRIT (BEAKER) (test wdxu=855) 35.2 % 34.1-44.9 MEAN CORPUSCULAR VOLUME (BEAKER) (test ycan=550) 95.4 fL 79.4-94.8 MEAN CORPUSCULAR HEMOGLOBIN (BEAKER) (test 28.5 pg 25.6-32.2 nlyp=801) MEAN CORPUSCULAR HEMOGLOBIN CONC (BEAKER) (test 29.8 GM/DL 32.2-35.5 rvms=084) RED CELL DISTRIBUTION WIDTH (BEAKER) (test 14.6 % 11.7-14.4 xcsa=907) PLATELET COUNT (BEAKER) (test gcqj=423) 321 K/CU MM 150-450 MEAN PLATELET VOLUME (BEAKER) (test jazc=576) 10.6 fL 9.4-12.3 NUCLEATED RED BLOOD CELLS (BEAKER) (test 0 /100 WBC 0-0 gmdy=677) NEUTROPHILS RELATIVE PERCENT (BEAKER) (test 73 % ofxw=888) LYMPHOCYTES RELATIVE PERCENT (BEAKER) (test 15 % odkx=613) MONOCYTES RELATIVE PERCENT (BEAKER) (test 7 % ygao=401) EOSINOPHILS RELATIVE PERCENT (BEAKER) (test 3 % svln=913) BASOPHILS RELATIVE PERCENT (BEAKER) (test 1 % sjhz=501) NEUTROPHILS ABSOLUTE COUNT (BEAKER) (test 7.06 K/ L 1.56-6.13 sowp=893) LYMPHOCYTES ABSOLUTE COUNT (BEAKER) (test 1.42 K/ L 1.18-3.74 bzzs=046) MONOCYTES ABSOLUTE COUNT (BEAKER) (test 0.71 K/ L 0.24-0.36 eyqo=665) EOSINOPHILS ABSOLUTE COUNT (BEAKER) (test 0.27 K/ L 0.04-0.36 nmki=532) BASOPHILS ABSOLUTE COUNT (BEAKER) (test 0.05 K/ L 0.01-0.08 cwir=906) IMMATURE GRANULOCYTES-RELATIVE PERCENT (BEAKER) 2 % 0-1 (test gwcr=8043) POCT-GLUCOSE [id number] 21:47:00 Test Item Value Reference Range Comments POC-GLUCOSE METER (BEAKER) 161 mg/dL 70-110 TESTED AT [address] (test aqjc=4536) [place] [address] POCT-GLUCOSE [id number] 17:08:00 Test Item Value Reference Range Comments POC-GLUCOSE METER (BEAKER) 189 mg/dL 70-110 TESTED AT [address] (test mgkk=2384) [place] [address] POCT-GLUCOSE [id number] 11:12:00 Test Item Value Reference Range Comments POC-GLUCOSE METER (BEAKER) 197 mg/dL 70-110 TESTED AT [address] (test yqcn=7099) [place] [address] POCT-GLUCOSE [id number] 07:35:00 Test Item Value Reference Range Comments POC-GLUCOSE METER (BEAKER) 113 mg/dL 70-110 TESTED AT [address] (test rlox=5700) [place] [address] BASIC METABOLIC [id number] 06:23:00 Test Item Value Reference Range Comments SODIUM (BEAKER) (test 137 meq/L 136-145 ojma=182) POTASSIUM (BEAKER) (test 4.3 meq/L 3.5-5.1 khsx=279) CHLORIDE (BEAKER) (test 101 meq/L 98-107 oqyd=388) CO2 (BEAKER) (test 26 meq/L 22-29 ueoz=006) BLOOD UREA NITROGEN 12 mg/dL 7-21 (BEAKER) (test txhx=072) CREATININE (BEAKER) (test 0.70 mg/dL 0.57-1.25 alfu=443) GLUCOSE RANDOM (BEAKER) 91 mg/dL 70-105 (test gklw=924) CALCIUM (BEAKER) (test 9.3 mg/dL 8.4-10.2 bpbm=587) EGFR (BEAKER) (test 80 mL/min/1.73 sq m ESTIMATED GFR IS NOT mvdp=7201) ACCURATE CREATININE CLEARANCE IN PREDICTING GLOMERULAR FILTRATION RATE. ESTIMATED GFR IS NOT APPLICABLE FOR DIALYSIS PATIENTS. CBC W/PLT COUNT & AUTO [id number] 06:12:00 Test Item Value Reference Range Comments WHITE BLOOD CELL COUNT (BEAKER) (test foei=750) 11.9 K/ L 3.5-10.5 RED BLOOD CELL COUNT (BEAKER) (test noaq=770) 3.65 M/ L 3.93-5.22 HEMOGLOBIN (BEAKER) (test eswt=730) 10.7 GM/DL 11.2-15.7 HEMATOCRIT (BEAKER) (test ohuh=004) 35.3 % 34.1-44.9 MEAN CORPUSCULAR VOLUME (BEAKER) (test ngvg=497) 96.7 fL 79.4-94.8 MEAN CORPUSCULAR HEMOGLOBIN (BEAKER) (test 29.3 pg 25.6-32.2 grwe=554) MEAN CORPUSCULAR HEMOGLOBIN CONC (BEAKER) (test 30.3 GM/DL 32.2-35.5 fdkt=195) RED CELL DISTRIBUTION WIDTH (BEAKER) (test 14.6 % 11.7-14.4 jkhj=341) PLATELET COUNT (BEAKER) (test uqlm=137) 277 K/CU MM 150-450 MEAN PLATELET VOLUME (BEAKER) (test wfba=744) 10.8 fL 9.4-12.3 NUCLEATED RED BLOOD CELLS (BEAKER) (test 0 /100 WBC 0-0 jatp=089) NEUTROPHILS RELATIVE PERCENT (BEAKER) (test 77 % lxxb=400) LYMPHOCYTES RELATIVE PERCENT (BEAKER) (test 10 % tpir=595) MONOCYTES RELATIVE PERCENT (BEAKER) (test 7 % lhqg=788) EOSINOPHILS RELATIVE PERCENT (BEAKER) (test 2 % ntat=831) BASOPHILS RELATIVE PERCENT (BEAKER) (test 1 % jpym=321) NEUTROPHILS ABSOLUTE COUNT (BEAKER) (test 9.13 K/ L 1.56-6.13 iskq=292) LYMPHOCYTES ABSOLUTE COUNT (BEAKER) (test 1.19 K/ L 1.18-3.74 zkdp=249) MONOCYTES ABSOLUTE COUNT (BEAKER) (test 0.87 K/ L 0.24-0.36 kfxr=318) EOSINOPHILS ABSOLUTE COUNT (BEAKER) (test 0.26 K/ L 0.04-0.36 lzkv=157) BASOPHILS ABSOLUTE COUNT (BEAKER) (test 0.06 K/ L 0.01-0.08 ikae=485) IMMATURE GRANULOCYTES-RELATIVE PERCENT (BEAKER) 3 % 0-1 (test arwu=4705) POCT-GLUCOSE [id number] 21:04:00 Test Item Value Reference Range Comments POC-GLUCOSE METER (BEAKER) 143 mg/dL 70-110 TESTED AT [address] (test chzg=4959) [place] [address] POCT-GLUCOSE [id number] 17:04:00 Test Item Value Reference Range Comments POC-GLUCOSE METER (BEAKER) 182 mg/dL 70-110 TESTED AT [address] (test erxc=0717) [place] [address] SPIN/CONCENTRATION [id number] 15:07:00 Test Item Value Reference Range Comments CONCENTRATION CHARGED (BEAKER) (test sucv=1041) Done POCT-GLUCOSE [id number] 11:38:00 Test Item Value Reference Range Comments POC-GLUCOSE METER (BEAKER) 141 mg/dL 70-110 TESTED AT [address] (test qskk=4593) [place] [address] POCT-GLUCOSE [id number] 08:13:00 Test Item Value Reference Range Comments POC-GLUCOSE METER (BEAKER) 122 mg/dL 70-110 TESTED AT [address] (test eexi=7458) [place] [address] BASIC METABOLIC [id number] 05:20:00 Test Item Value Reference Range Comments SODIUM (BEAKER) (test 138 meq/L 136-145 noag=395) POTASSIUM (BEAKER) (test 3.8 meq/L 3.5-5.1 npei=615) CHLORIDE (BEAKER) (test 102 meq/L 98-107 ieex=247) CO2 (BEAKER) (test 28 meq/L 22-29 ensw=125) BLOOD UREA NITROGEN 12 mg/dL 7-21 (BEAKER) (test doqu=000) CREATININE (BEAKER) (test 0.72 mg/dL 0.57-1.25 ajss=263) GLUCOSE RANDOM (BEAKER) 104 mg/dL 70-105 (test ckua=904) CALCIUM (BEAKER) (test 8.5 mg/dL 8.4-10.2 rcwo=804) EGFR (BEAKER) (test 77 mL/min/1.73 sq m ESTIMATED GFR IS NOT efxy=7518) ACCURATE CREATININE CLEARANCE IN PREDICTING GLOMERULAR FILTRATION RATE. ESTIMATED GFR IS NOT APPLICABLE FOR DIALYSIS PATIENTS. CBC W/PLT COUNT & AUTO [id number] 04:58:00 Test Item Value Reference Range Comments WHITE BLOOD CELL COUNT (BEAKER) (test qplq=700) 11.5 K/ L 3.5-10.5 RED BLOOD CELL COUNT (BEAKER) (test fimh=237) 3.63 M/ L 3.93-5.22 HEMOGLOBIN (BEAKER) (test tcde=162) 10.3 GM/DL 11.2-15.7 HEMATOCRIT (BEAKER) (test iwrz=233) 34.4 % 34.1-44.9 MEAN CORPUSCULAR VOLUME (BEAKER) (test lpmw=667) 94.8 fL 79.4-94.8 MEAN CORPUSCULAR HEMOGLOBIN (BEAKER) (test 28.4 pg 25.6-32.2 pzyg=639) MEAN CORPUSCULAR HEMOGLOBIN CONC (BEAKER) (test 29.9 GM/DL 32.2-35.5 jktp=743) RED CELL DISTRIBUTION WIDTH (BEAKER) (test 14.8 % 11.7-14.4 vnsf=346) PLATELET COUNT (BEAKER) (test rmnp=139) 266 K/CU MM 150-450 MEAN PLATELET VOLUME (BEAKER) (test ryrv=175) 10.8 fL 9.4-12.3 NUCLEATED RED BLOOD CELLS (BEAKER) (test 0 /100 WBC 0-0 ryut=580) NEUTROPHILS RELATIVE PERCENT (BEAKER) (test 79 % vvbe=572) LYMPHOCYTES RELATIVE PERCENT (BEAKER) (test 8 % dpov=013) MONOCYTES RELATIVE PERCENT (BEAKER) (test 7 % tlri=630) EOSINOPHILS RELATIVE PERCENT (BEAKER) (test 2 % cimu=981) BASOPHILS RELATIVE PERCENT (BEAKER) (test 1 % ftcj=450) NEUTROPHILS ABSOLUTE COUNT (BEAKER) (test 9.09 K/ L 1.56-6.13 kxie=194) LYMPHOCYTES ABSOLUTE COUNT (BEAKER) (test 0.90 K/ L 1.18-3.74 qypm=616) MONOCYTES ABSOLUTE COUNT (BEAKER) (test 0.76 K/ L 0.24-0.36 jeic=133) EOSINOPHILS ABSOLUTE COUNT (BEAKER) (test 0.27 K/ L 0.04-0.36 pfhy=945) BASOPHILS ABSOLUTE COUNT (BEAKER) (test 0.08 K/ L 0.01-0.08 fsze=954) IMMATURE GRANULOCYTES-RELATIVE PERCENT (BEAKER) 4 % 0-1 (test nskk=9697) POCT-GLUCOSE [id number] 21:18:00 Test Item Value Reference Range Comments POC-GLUCOSE METER (BEAKER) 147 mg/dL 70-110 TESTED AT [facility] [address] [place] [address] (test yvgf=2198) [facility] [address] TISSUE [id number] 15:55:00Surgical Pathology Report Case: [id number] Authorizing Provider: Billy Mcmanus, Collected: 03/18/2018 1046 OrderingLocation: [facility] Received: 2017 1131 [facility]IOPER[facility] SERVICES Pathologist: Crhis Caraballo MD Specimen: Plaque, AORTIC PLAQUE AORTA, ATHERECTOMY:CALCIFIC ATHEROSCLEROTIC PLAQUE Signing Pathologist Direct Phone Line: [phone] by Chris Caraballo MD on 03/25/2018 at 3:55 [id number]; [id number] plaque Received in saline labeled "plaque", description "aortic plaque" is a 4.5 x 3.5 x 0.6 cm aggregate of feilx-white to yellow-panchal, rubbery, calcified fibrous tissue.Split Leather Mosser sections are submitted in cassette A1 for decalcification. DB/ew PerformedPOTASSIUM-STAT [id number] 11:04:00 Test Item Value Reference Range Comments POTASSIUM (BEAKER) (test tjjy=597) 3.0 meq/L 3.6-5.5 HGB/HCT (H&H) - STAT [id number] 11:04:00 Test Item Value Reference Range Comments HEMOGLOBIN (BEAKER) (test oqkq=978) 11.2 g/dL 12.0-15.0 HEMATOCRIT (BEAKER) (test rrgp=843) 33.0 % 36.0-45.0 GLUCOSE-STAT [id number] 11:04:00 Test Item Value Reference Range Comments GLUCOSE RANDOM (BEAKER) (test xrdw=944) 116 mg/dL 70-110 POCT-GLUCOSE [id number] 07:01:00 Test Item Value Reference Range Comments POC-GLUCOSE METER (BEAKER) 91 mg/dL 70-110 TESTED AT [facility] [address] [facility] (test ixfb=3889) [facility] [address] BASIC METABOLIC [id number] 05:12:00 Test Item Value Reference Range Comments SODIUM (BEAKER) (test 140 meq/L 136-145 htys=726) POTASSIUM (BEAKER) (test 4.0 meq/L 3.5-5.1 djtf=454) CHLORIDE (BEAKER) (test 100 meq/L 98-107 mouj=698) CO2 (BEAKER) (test 34 meq/L 22-29 aawc=402) BLOOD UREA NITROGEN 14 mg/dL 7-21 (BEAKER) (test erlh=790) CREATININE (BEAKER) (test 0.75 mg/dL 0.57-1.25 jcxa=276) GLUCOSE RANDOM (BEAKER) 100 mg/dL 70-105 (test vghs=503) CALCIUM (BEAKER) (test 9.2 mg/dL 8.4-10.2 wojn=524) EGFR (BEAKER) (test 74 mL/min/1.73 sq m ESTIMATED GFR IS NOT lhxy=7499) ACCURATE CREATININE CLEARANCE IN PREDICTING GLOMERULAR FILTRATION RATE. ESTIMATED GFR IS NOT APPLICABLE FOR DIALYSIS PATIENTS. CBC W/PLT COUNT & AUTO [id number] 04:36:00 Test Item Value Reference Range Comments WHITE BLOOD CELL COUNT (BEAKER) (test pzcq=918) 11.1 K/ L 3.5-10.5 RED BLOOD CELL COUNT (BEAKER) (test ipnc=698) 3.57 M/ L 3.93-5.22 HEMOGLOBIN (BEAKER) (test rusk=514) 10.3 GM/DL 11.2-15.7 HEMATOCRIT (BEAKER) (test xeoz=483) 33.8 % 34.1-44.9 MEAN CORPUSCULAR VOLUME (BEAKER) (test wqlc=706) 94.7 fL 79.4-94.8 MEAN CORPUSCULAR HEMOGLOBIN (BEAKER) (test 28.9 pg 25.6-32.2 itko=110) MEAN CORPUSCULAR HEMOGLOBIN CONC (BEAKER) (test 30.5 GM/DL 32.2-35.5 ybbo=121) RED CELL DISTRIBUTION WIDTH (BEAKER) (test 14.6 % 11.7-14.4 htkv=878) PLATELET COUNT (BEAKER) (test swiu=514) 244 K/CU MM 150-450 MEAN PLATELET VOLUME (BEAKER) (test kfwx=739) 10.7 fL 9.4-12.3 NUCLEATED RED BLOOD CELLS (BEAKER) (test 1 /100 WBC 0-0 zzrq=464) NEUTROPHILS RELATIVE PERCENT (BEAKER) (test 72 % faig=577) LYMPHOCYTES RELATIVE PERCENT (BEAKER) (test 13 % zjup=687) MONOCYTES RELATIVE PERCENT (BEAKER) (test 9 % ndej=664) EOSINOPHILS RELATIVE PERCENT (BEAKER) (test 2 % ecaw=853) BASOPHILS RELATIVE PERCENT (BEAKER) (test 1 % hico=240) NEUTROPHILS ABSOLUTE COUNT (BEAKER) (test 7.91 K/ L 1.56-6.13 wbmw=937) LYMPHOCYTES ABSOLUTE COUNT (BEAKER) (test 1.45 K/ L 1.18-3.74 ohtd=637) MONOCYTES ABSOLUTE COUNT (BEAKER) (test 1.00 K/ L 0.24-0.36 nmlf=648) EOSINOPHILS ABSOLUTE COUNT (BEAKER) (test 0.21 K/ L 0.04-0.36 jibz=420) BASOPHILS ABSOLUTE COUNT (BEAKER) (test 0.07 K/ L 0.01-0.08 vzwk=263) IMMATURE GRANULOCYTES-RELATIVE PERCENT (BEAKER) 4 % 0-1 (test ccgp=7467) POCT-GLUCOSE [id number] 21:06:00 Test Item Value Reference Range Comments POC-GLUCOSE METER (BEAKER) 152 mg/dL 70-110 TESTED AT [address] (test xbgw=6002) [facility] [address] POCT-GLUCOSE [id number] 17:43:00 Test Item Value Reference Range Comments POC-GLUCOSE METER (BEAKER) 155 mg/dL 70-110 TESTED AT [address] (test uqio=6426) [facility] [address] POCT-GLUCOSE [id number] 12:30:00 Test Item Value Reference Range Comments POC-GLUCOSE METER (BEAKER) 167 mg/dL 70-110 TESTED AT [address] (test qjbc=8993) [facility] [address] POCT-GLUCOSE [id number] 07:13:00 Test Item Value Reference Range Comments POC-GLUCOSE METER (BEAKER) 111 mg/dL 70-110 TESTED AT [address] (test pyql=4529) [facility] [address] BASIC METABOLIC [id number] 05:33:00 Test Item Value Reference Range Comments SODIUM (BEAKER) (test 139 meq/L 136-145 vgzl=258) POTASSIUM (BEAKER) (test 3.9 meq/L 3.5-5.1 hpbh=772) CHLORIDE (BEAKER) (test 102 meq/L 98-107 bjrt=981) CO2 (BEAKER) (test 29 meq/L 22-29 raue=476) BLOOD UREA NITROGEN 17 mg/dL 7-21 (BEAKER) (test jbgi=301) CREATININE (BEAKER) (test 0.72 mg/dL 0.57-1.25 hmrn=995) GLUCOSE RANDOM (BEAKER) 114 mg/dL 70-105 (test amfz=253) CALCIUM (BEAKER) (test 8.8 mg/dL 8.4-10.2 sevn=606) EGFR (BEAKER) (test 77 mL/min/1.73 sq m ESTIMATED GFR IS NOT lmvv=4743) ACCURATE CREATININE CLEARANCE IN PREDICTING GLOMERULAR FILTRATION RATE. ESTIMATED GFR IS NOT APPLICABLE FOR DIALYSIS PATIENTS. CBC W/PLT COUNT & AUTO [id number] 04:58:00 Test Item Value Reference Range Comments WHITE BLOOD CELL COUNT (BEAKER) (test ufkg=036) 9.9 K/ L 3.5-10.5 RED BLOOD CELL COUNT (BEAKER) (test ioic=651) 3.54 M/ L 3.93-5.22 HEMOGLOBIN (BEAKER) (test mibj=843) 10.2 GM/DL 11.2-15.7 HEMATOCRIT (BEAKER) (test kuyr=510) 33.7 % 34.1-44.9 MEAN CORPUSCULAR VOLUME (BEAKER) (test zovs=016) 95.2 fL 79.4-94.8 MEAN CORPUSCULAR HEMOGLOBIN (BEAKER) (test 28.8 pg 25.6-32.2 bfwx=730) MEAN CORPUSCULAR HEMOGLOBIN CONC (BEAKER) (test 30.3 GM/DL 32.2-35.5 sbmj=087) RED CELL DISTRIBUTION WIDTH (BEAKER) (test 14.4 % 11.7-14.4 apmq=796) PLATELET COUNT (BEAKER) (test avpy=293) 226 K/CU MM 150-450 MEAN PLATELET VOLUME (BEAKER) (test ynzv=366) 11.2 fL 9.4-12.3 NUCLEATED RED BLOOD CELLS (BEAKER) (test 0 /100 WBC 0-0 vtzf=031) NEUTROPHILS RELATIVE PERCENT (BEAKER) (test 73 % ggjo=200) LYMPHOCYTES RELATIVE PERCENT (BEAKER) (test 14 % phul=463) MONOCYTES RELATIVE PERCENT (BEAKER) (test 9 % jfic=365) EOSINOPHILS RELATIVE PERCENT (BEAKER) (test 2 % alwi=088) BASOPHILS RELATIVE PERCENT (BEAKER) (test 1 % lmgt=965) NEUTROPHILS ABSOLUTE COUNT (BEAKER) (test 7.15 K/ L 1.56-6.13 phwx=284) LYMPHOCYTES ABSOLUTE COUNT (BEAKER) (test 1.36 K/ L 1.18-3.74 ouce=591) MONOCYTES ABSOLUTE COUNT (BEAKER) (test 0.87 K/ L 0.24-0.36 oohl=201) EOSINOPHILS ABSOLUTE COUNT (BEAKER) (test 0.18 K/ L 0.04-0.36 degd=892) BASOPHILS ABSOLUTE COUNT (BEAKER) (test 0.07 K/ L 0.01-0.08 iuca=812) IMMATURE GRANULOCYTES-RELATIVE PERCENT (BEAKER) 2 % 0-1 (test shfn=3143) POCT-GLUCOSE [id number] 20:59:00 Test Item Value Reference Range Comments POC-GLUCOSE METER (BEAKER) 178 mg/dL 70-110 TESTED AT [address] (test rkqg=0997) [place] [id number] POCT-GLUCOSE [id number] 18:18:00 Test Item Value Reference Range Comments POC-GLUCOSE METER (BEAKER) 137 mg/dL 70-110 TESTED AT [address] (test aymz=8561) [place] [address] RAD, SPINE, LUMBAR, COMPLETE (MIN 4 VIEWS)2018-03-23 [...] No definite acute abnormality. Signed: [facility] Verified Date/Time: 03/23/2018 16:25:16 Reading Location: [facility] C013X Ortho Consult Reading Room SPUTUM CULTURE + GRAM [id number] 10:41:00 Test Item Value Reference Range Comments CULTURE (BEAKER) (test 3+ Normal respiratory anu rmub=2275) present GRAM STAIN RESULT (BEAKER) <1+ WBCs (test fewc=6898) GRAM STAIN RESULT (BEAKER) 10-15 epithelial cells (test vmay=94814) GRAM STAIN RESULT (BEAKER) 1+ gram positive cocci in pairs (test mavm=04771) POCT-GLUCOSE [id number] 08:09:00 Test Item Value Reference Range Comments POC-GLUCOSE METER (BEAKER) 94 mg/dL 70-110 TESTED AT [address] (test wtak=8114) [place] [id number] BASIC METABOLIC [id number] 06:23:00 Test Item Value Reference Range Comments SODIUM (BEAKER) (test 142 meq/L 136-145 iplz=671) POTASSIUM (BEAKER) (test 3.3 meq/L 3.5-5.1 wupd=303) CHLORIDE (BEAKER) (test 102 meq/L 98-107 hoxv=108) CO2 (BEAKER) (test 27 meq/L 22-29 jifc=023) BLOOD UREA NITROGEN 17 mg/dL 7-21 (BEAKER) (test kvqz=386) CREATININE (BEAKER) (test 0.69 mg/dL 0.57-1.25 eflw=984) GLUCOSE RANDOM (BEAKER) 81 mg/dL 70-105 (test oahu=658) CALCIUM (BEAKER) (test 9.4 mg/dL 8.4-10.2 apsu=378) EGFR (BEAKER) (test 81 mL/min/1.73 sq m ESTIMATED GFR IS NOT zlkf=0909) ACCURATE CREATININE CLEARANCE IN PREDICTING GLOMERULAR FILTRATION RATE. ESTIMATED GFR IS NOT APPLICABLE FOR DIALYSIS PATIENTS. CBC W/PLT COUNT & AUTO [id number] 06:00:00 Test Item Value Reference Range Comments WHITE BLOOD CELL COUNT (BEAKER) (test nuab=702) 8.2 K/ L 3.5-10.5 RED BLOOD CELL COUNT (BEAKER) (test sdww=703) 4.03 M/ L 3.93-5.22 HEMOGLOBIN (BEAKER) (test hqpo=904) 11.5 GM/DL 11.2-15.7 HEMATOCRIT (BEAKER) (test vcyg=218) 38.6 % 34.1-44.9 MEAN CORPUSCULAR VOLUME (BEAKER) (test uoam=121) 95.8 fL 79.4-94.8 MEAN CORPUSCULAR HEMOGLOBIN (BEAKER) (test 28.5 pg 25.6-32.2 pvts=250) MEAN CORPUSCULAR HEMOGLOBIN CONC (BEAKER) (test 29.8 GM/DL 32.2-35.5 ipmw=685) RED CELL DISTRIBUTION WIDTH (BEAKER) (test 14.5 % 11.7-14.4 zohq=992) PLATELET COUNT (BEAKER) (test nxeh=801) 214 K/CU MM 150-450 MEAN PLATELET VOLUME (BEAKER) (test btpz=995) 11.5 fL 9.4-12.3 NUCLEATED RED BLOOD CELLS (BEAKER) (test 0 /100 WBC 0-0 mdvs=862) NEUTROPHILS RELATIVE PERCENT (BEAKER) (test 71 % qlpu=777) LYMPHOCYTES RELATIVE PERCENT (BEAKER) (test 17 % bimf=102) MONOCYTES RELATIVE PERCENT (BEAKER) (test 8 % afiw=515) EOSINOPHILS RELATIVE PERCENT (BEAKER) (test 3 % zciy=993) BASOPHILS RELATIVE PERCENT (BEAKER) (test 1 % pnoj=952) NEUTROPHILS ABSOLUTE COUNT (BEAKER) (test 5.84 K/ L 1.56-6.13 vxua=831) LYMPHOCYTES ABSOLUTE COUNT (BEAKER) (test 1.36 K/ L 1.18-3.74 iprd=267) MONOCYTES ABSOLUTE COUNT (BEAKER) (test 0.63 K/ L 0.24-0.36 txgi=178) EOSINOPHILS ABSOLUTE COUNT (BEAKER) (test 0.24 K/ L 0.04-0.36 huxz=565) BASOPHILS ABSOLUTE COUNT (BEAKER) (test 0.07 K/ L 0.01-0.08 gdaw=250) IMMATURE GRANULOCYTES-RELATIVE PERCENT (BEAKER) 1 % 0-1 (test buhu=3761) POCT-GLUCOSE [id number] 21:32:00 Test Item Value Reference Range Comments POC-GLUCOSE METER (BEAKER) 238 mg/dL 70-110 TESTED AT [address] (test reiw=3968) [place] [address] POCT-GLUCOSE [id number] 12:11:00 Test Item Value Reference Range Comments POC-GLUCOSE METER (BEAKER) 102 mg/dL 70-110 TESTED AT [address] (test xmop=9590) [place] [address] POCT-GLUCOSE [id number] 07:49:00 Test Item Value Reference Range Comments POC-GLUCOSE METER (BEAKER) 93 mg/dL 70-110 TESTED AT [address] (test jmvg=0493) [place] [address] BASIC METABOLIC [id number] 06:14:00 Test Item Value Reference Range Comments SODIUM (BEAKER) (test 142 meq/L 136-145 ggjw=920) POTASSIUM (BEAKER) (test 4.6 meq/L 3.5-5.1 vvou=897) CHLORIDE (BEAKER) (test 103 meq/L 98-107 aqxr=408) CO2 (BEAKER) (test 32 meq/L 22-29 kbck=998) BLOOD UREA NITROGEN 18 mg/dL 7-21 (BEAKER) (test teaz=298) CREATININE (BEAKER) (test 0.73 mg/dL 0.57-1.25 rbnj=987) GLUCOSE RANDOM (BEAKER) 78 mg/dL 70-105 (test onog=370) CALCIUM (BEAKER) (test 9.3 mg/dL 8.4-10.2 quhy=149) EGFR (BEAKER) (test 76 mL/min/1.73 sq m ESTIMATED GFR IS NOT lnhn=2963) ACCURATE CREATININE CLEARANCE IN PREDICTING GLOMERULAR FILTRATION RATE. ESTIMATED GFR IS NOT APPLICABLE FOR DIALYSIS PATIENTS. CBC W/PLT COUNT & AUTO [id number] 05:44:00 Test Item Value Reference Range Comments WHITE BLOOD CELL COUNT (BEAKER) (test nvqs=578) 9.0 K/ L 3.5-10.5 RED BLOOD CELL COUNT (BEAKER) (test zpuj=679) 3.81 M/ L 3.93-5.22 HEMOGLOBIN (BEAKER) (test qbgv=667) 10.8 GM/DL 11.2-15.7 HEMATOCRIT (BEAKER) (test nfru=000) 36.8 % 34.1-44.9 MEAN CORPUSCULAR VOLUME (BEAKER) (test hgnc=569) 96.6 fL 79.4-94.8 MEAN CORPUSCULAR HEMOGLOBIN (BEAKER) (test 28.3 pg 25.6-32.2 qrpg=370) MEAN CORPUSCULAR HEMOGLOBIN CONC (BEAKER) (test 29.3 GM/DL 32.2-35.5 nfqo=715) RED CELL DISTRIBUTION WIDTH (BEAKER) (test 14.7 % 11.7-14.4 zhrn=272) PLATELET COUNT (BEAKER) (test ptoh=120) 178 K/CU MM 150-450 MEAN PLATELET VOLUME (BEAKER) (test bvgo=992) 11.6 fL 9.4-12.3 NUCLEATED RED BLOOD CELLS (BEAKER) (test 0 /100 WBC 0-0 fttv=587) NEUTROPHILS RELATIVE PERCENT (BEAKER) (test 75 % ufbe=043) LYMPHOCYTES RELATIVE PERCENT (BEAKER) (test 14 % xkvr=161) MONOCYTES RELATIVE PERCENT (BEAKER) (test 7 % bhub=318) EOSINOPHILS RELATIVE PERCENT (BEAKER) (test 3 % tltr=034) BASOPHILS RELATIVE PERCENT (BEAKER) (test 1 % ivxr=919) NEUTROPHILS ABSOLUTE COUNT (BEAKER) (test 6.69 K/ L 1.56-6.13 baco=049) LYMPHOCYTES ABSOLUTE COUNT (BEAKER) (test 1.29 K/ L 1.18-3.74 blxt=458) MONOCYTES ABSOLUTE COUNT (BEAKER) (test 0.65 K/ L 0.24-0.36 iqeo=098) EOSINOPHILS ABSOLUTE COUNT (BEAKER) (test 0.22 K/ L 0.04-0.36 kbwv=447) BASOPHILS ABSOLUTE COUNT (BEAKER) (test 0.05 K/ L 0.01-0.08 knvn=083) IMMATURE GRANULOCYTES-RELATIVE PERCENT (BEAKER) 1 % 0-1 (test hvev=0702) POCT-GLUCOSE [id number] 21:06:00 Test Item Value Reference Range Comments POC-GLUCOSE METER (BEAKER) 116 mg/dL 70-110 TESTED AT [address] (test pets=4042) [place] [id number] POCT-GLUCOSE [id number] 16:33:00 Test Item Value Reference Range Comments POC-GLUCOSE METER (BEAKER) 138 mg/dL 70-110 TESTED AT [address] (test kzad=3760) [facility] [address] POCT-GLUCOSE [id number] 12:15:00 Test Item Value Reference Range Comments POC-GLUCOSE METER (BEAKER) 150 mg/dL 70-110 TESTED AT [address] (test vqqw=8812) [facility] [address] POCT-GLUCOSE [id number] 09:03:00 Test Item Value Reference Range Comments POC-GLUCOSE METER (BEAKER) 101 mg/dL 70-110 TESTED AT [address] (test cmkw=2988) [place] [id number] RAD, CHEST, 1 VIEW, NON [id number] 08:03:00Reason for exam:->post cardiovascular procedureShould this be [...] Verified Date/ Time: 03/21/2018 08:03:21 Reading Location: [facility] Diagnostic Imaging Reading Room - [place] [address] Electronically signed by: FREYA TURCIOS M.D. on 2017 08:03 [id number] 04:37:00 Test Item Value Reference Range Comments MAGNESIUM (BEAKER) (test 1.9 mg/dL 1.6-2.6 Specimen slightly hemolyzed fcrc=600) BASIC METABOLIC [id number] 04:37:00 Test Item Value Reference Range Comments SODIUM (BEAKER) (test 141 meq/L 136-145 dlgl=960) POTASSIUM (BEAKER) (test 4.0 meq/L 3.5-5.1 Specimen slightly affj=745) hemolyzed CHLORIDE (BEAKER) (test 104 meq/L 98-107 mvyk=200) CO2 (BEAKER) (test 27 meq/L 22-29 eeqk=869) BLOOD UREA NITROGEN 28 mg/dL 7-21 (BEAKER) (test mdwx=539) CREATININE (BEAKER) (test 0.81 mg/dL 0.57-1.25 Specimen slightly zsnc=042) hemolyzed GLUCOSE RANDOM (BEAKER) 124 mg/dL 70-105 (test xmid=994) CALCIUM (BEAKER) (test 9.8 mg/dL 8.4-10.2 zron=558) EGFR (BEAKER) (test 68 mL/min/1.73 sq m ESTIMATED GFR IS NOT dxab=3930) ACCURATE CREATININE CLEARANCE IN PREDICTING GLOMERULAR FILTRATION RATE. ESTIMATED GFR IS NOT APPLICABLE FOR DIALYSIS PATIENTS. CBC W/PLT COUNT & AUTO [id number] 04:27:00 Test Item Value Reference Range Comments WHITE BLOOD CELL COUNT (BEAKER) (test iwpb=759) 13.9 K/ L 3.5-10.5 RED BLOOD CELL COUNT (BEAKER) (test hmiy=470) 3.73 M/ L 3.93-5.22 HEMOGLOBIN (BEAKER) (test egja=936) 11.1 GM/DL 11.2-15.7 HEMATOCRIT (BEAKER) (test lmhn=683) 35.4 % 34.1-44.9 MEAN CORPUSCULAR VOLUME (BEAKER) (test tssl=835) 94.9 fL 79.4-94.8 MEAN CORPUSCULAR HEMOGLOBIN (BEAKER) (test 29.8 pg 25.6-32.2 sjsi=549) MEAN CORPUSCULAR HEMOGLOBIN CONC (BEAKER) (test 31.4 GM/DL 32.2-35.5 tfbx=176) RED CELL DISTRIBUTION WIDTH (BEAKER) (test 14.8 % 11.7-14.4 qrqe=755) PLATELET COUNT (BEAKER) (test vuvd=706) 173 K/CU MM 150-450 MEAN PLATELET VOLUME (BEAKER) (test feye=679) 11.8 fL 9.4-12.3 NUCLEATED RED BLOOD CELLS (BEAKER) (test 0 /100 WBC 0-0 otqo=960) NEUTROPHILS RELATIVE PERCENT (BEAKER) (test 90 % wgjj=086) LYMPHOCYTES RELATIVE PERCENT (BEAKER) (test 5 % jxag=277) MONOCYTES RELATIVE PERCENT (BEAKER) (test 4 % rlwe=554) EOSINOPHILS RELATIVE PERCENT (BEAKER) (test 1 % wais=948) BASOPHILS RELATIVE PERCENT (BEAKER) (test 0 % qcsv=722) NEUTROPHILS ABSOLUTE COUNT (BEAKER) (test 12.44 K/ L 1.56-6.13 jwqt=838) LYMPHOCYTES ABSOLUTE COUNT (BEAKER) (test 0.67 K/ L 1.18-3.74 bsst=041) MONOCYTES ABSOLUTE COUNT (BEAKER) (test 0.58 K/ L 0.24-0.36 cdpz=103) EOSINOPHILS ABSOLUTE COUNT (BEAKER) (test 0.07 K/ L 0.04-0.36 slya=119) BASOPHILS ABSOLUTE COUNT (BEAKER) (test 0.04 K/ L 0.01-0.08 tjem=049) IMMATURE GRANULOCYTES-RELATIVE PERCENT (BEAKER) 1 % 0-1 (test raro=4687) POCT-GLUCOSE [id number] 20:59:00 Test Item Value Reference Range Comments POC-GLUCOSE METER (BEAKER) 111 mg/dL 70-110 TESTED AT [facility] [address] [facility] (test ndgg=5864) [facility] [address] POCT-GLUCOSE [id number] 18:33:00 Test Item Value Reference Range Comments POC-GLUCOSE METER (BEAKER) 101 mg/dL 70-110 TESTED AT [address] (test lrym=4034) [place] [id number] POCT-GLUCOSE [id number] 16:33:00 Test Item Value Reference Range Comments POC-GLUCOSE METER (BEAKER) 128 mg/dL 70-110 TESTED AT [address] (test sgnd=8728) [place] [address] POCT-GLUCOSE [id number] 11:35:00 Test Item Value Reference Range Comments POC-GLUCOSE METER (BEAKER) 129 mg/dL 70-110 TESTED AT [address] (test udle=9421) [place] [address] HEMOGLOBIN [id number] 08:58:00 Test Item Value Reference Range Comments HEMOGLOBIN A1C (BEAKER) (test shhx=835) 6.0 % 4.3-6.1 RAD, CHEST, 1 VIEW, NON [id number] 08:06:00Reason for exam:->post cardiovascular procedureShould this be [...] MDReport Verified Date/Time: 03/20/2018 08:06:53 Reading Location: [facility] Radiology Reading Room POCT-GLUCOSE [id number] 06:21:00 Test Item Value Reference Range Comments POC-GLUCOSE METER (BEAKER) 133 mg/dL 70-110 TESTED AT [address] (test xwzl=8106) [place] [address] [id number] 06:00:00 Test Item Value Reference Range Comments MAGNESIUM (BEAKER) (test ipgv=867) 2.0 mg/dL 1.6-2.6 BASIC METABOLIC [id number] 06:00:00 Test Item Value Reference Range Comments SODIUM (BEAKER) (test 144 meq/L 136-145 sruc=643) POTASSIUM (BEAKER) (test 3.9 meq/L 3.5-5.1 plmo=974) CHLORIDE (BEAKER) (test 107 meq/L 98-107 gacu=184) CO2 (BEAKER) (test 27 meq/L 22-29 ofav=545) BLOOD UREA NITROGEN 36 mg/dL 7-21 (BEAKER) (test dthf=703) CREATININE (BEAKER) (test 0.99 mg/dL 0.57-1.25 odvy=539) GLUCOSE RANDOM (BEAKER) 123 mg/dL 70-105 (test gnep=064) CALCIUM (BEAKER) (test 9.3 mg/dL 8.4-10.2 ouab=571) EGFR (BEAKER) (test 54 mL/min/1.73 sq m ESTIMATED GFR IS NOT gauj=9692) ACCURATE CREATININE CLEARANCE IN PREDICTING GLOMERULAR FILTRATION RATE. ESTIMATED GFR IS NOT APPLICABLE FOR DIALYSIS PATIENTS. CBC W/PLT COUNT & AUTO [id number] 05:39:00 Test Item Value Reference Range Comments WHITE BLOOD CELL COUNT (BEAKER) (test rlqq=515) 16.0 K/ L 3.5-10.5 RED BLOOD CELL COUNT (BEAKER) (test kyjk=312) 4.19 M/ L 3.93-5.22 HEMOGLOBIN (BEAKER) (test wpui=792) 12.0 GM/DL 11.2-15.7 HEMATOCRIT (BEAKER) (test zdat=398) 40.1 % 34.1-44.9 MEAN CORPUSCULAR VOLUME (BEAKER) (test yrom=861) 95.7 fL 79.4-94.8 MEAN CORPUSCULAR HEMOGLOBIN (BEAKER) (test 28.6 pg 25.6-32.2 ezob=102) MEAN CORPUSCULAR HEMOGLOBIN CONC (BEAKER) (test 29.9 GM/DL 32.2-35.5 hfld=914) RED CELL DISTRIBUTION WIDTH (BEAKER) (test 14.8 % 11.7-14.4 pmfr=352) PLATELET COUNT (BEAKER) (test pztw=811) 166 K/CU MM 150-450 MEAN PLATELET VOLUME (BEAKER) (test ywvt=962) 11.6 fL 9.4-12.3 NUCLEATED RED BLOOD CELLS (BEAKER) (test 0 /100 WBC 0-0 rmdq=621) NEUTROPHILS RELATIVE PERCENT (BEAKER) (test 90 % wgcp=678) LYMPHOCYTES RELATIVE PERCENT (BEAKER) (test 4 % rqhi=443) MONOCYTES RELATIVE PERCENT (BEAKER) (test 4 % rxlz=383) EOSINOPHILS RELATIVE PERCENT (BEAKER) (test 0 % yfsy=542) BASOPHILS RELATIVE PERCENT (BEAKER) (test 0 % npfs=816) NEUTROPHILS ABSOLUTE COUNT (BEAKER) (test 14.45 K/ L 1.56-6.13 rjto=384) LYMPHOCYTES ABSOLUTE COUNT (BEAKER) (test 0.66 K/ L 1.18-3.74 lgil=525) MONOCYTES ABSOLUTE COUNT (BEAKER) (test 0.70 K/ L 0.24-0.36 tkzz=810) EOSINOPHILS ABSOLUTE COUNT (BEAKER) (test 0.01 K/ L 0.04-0.36 pzwj=389) BASOPHILS ABSOLUTE COUNT (BEAKER) (test 0.06 K/ L 0.01-0.08 rojl=604) IMMATURE GRANULOCYTES-RELATIVE PERCENT (BEAKER) 1 % 0-1 (test oywz=1796) POCT-GLUCOSE [id number] 00:24:00 Test Item Value Reference Range Comments POC-GLUCOSE METER (BEAKER) 117 mg/dL 70-110 TESTED AT [facility] [address] [facility] (test dnrj=1466) [facility] [address] POCT-GLUCOSE [id number] 17:07:00 Test Item Value Reference Range Comments POC-GLUCOSE METER (BEAKER) 132 mg/dL 70-110 TESTED AT [facility] [address] [facility] (test ggtw=0192) [facility] [address] RAD, ABDOMEN/KUB, 1 VIEW [id number] 15:02:00Reason for exam:->nausea and eructationsFINAL REPORT TECHNIQUE: [...] the spine. Bones are osteopenic. Signed: [facility] Verified Date/Time: 03/19/2018 15:02:35 Reading Location: [facility] Radiology Reading Room POCT- GLUCOSE [id number] 10:23:00 Test Item Value Reference Range Comments POC-GLUCOSE METER (BEAKER) 111 mg/dL 70-110 TESTED AT [address] (test jxbd=4265) [facility] [address] RAD, CHEST, 1 VIEW, NON [id number] 08:26:00Reason for exam:->post cardiovascular procedureShould this be [...] Garrett Verified Date/Time: 03/19/2018 08:26:26 Reading Location: [facility] Radiology Reading Room POCT-GLUCOSE [id number] 06:09:00 Test Item Value Reference Range Comments POC-GLUCOSE METER (BEAKER) 120 mg/dL 70-110 TESTED AT [address] (test zplf=8785) [place] [id number] POCT-GLUCOSE [id number] 06:09:00 Test Item Value Reference Range Comments POC-GLUCOSE METER (BEAKER) 120 mg/dL 70-110 TESTED AT [address] (test ddze=0750) [place] [id number] 04:28:00 Test Item Value Reference Range Comments MAGNESIUM (BEAKER) (test 2.2 mg/dL 1.6-2.6 Specimen slightly hemolyzed vnrf=626) BASIC METABOLIC [id number] 04:28:00 Test Item Value Reference Range Comments SODIUM (BEAKER) (test 141 meq/L 136-145 bmdf=496) POTASSIUM (BEAKER) (test 3.8 meq/L 3.5-5.1 Specimen slightly kuoj=194) hemolyzed CHLORIDE (BEAKER) (test 109 meq/L 98-107 uzao=920) CO2 (BEAKER) (test 24 meq/L 22-29 ifzm=807) BLOOD UREA NITROGEN 30 mg/dL 7-21 (BEAKER) (test fexf=226) CREATININE (BEAKER) (test 0.86 mg/dL 0.57-1.25 Specimen slightly sykd=331) hemolyzed GLUCOSE RANDOM (BEAKER) 119 mg/dL 70-105 (test xcas=099) CALCIUM (BEAKER) (test 8.9 mg/dL 8.4-10.2 mhls=024) EGFR (BEAKER) (test 63 mL/min/1.73 sq m ESTIMATED GFR IS NOT xxxm=9071) ACCURATE CREATININE CLEARANCE IN PREDICTING GLOMERULAR FILTRATION RATE. ESTIMATED GFR IS NOT APPLICABLE FOR DIALYSIS PATIENTS. CBC W/PLT COUNT & AUTO [id number] 04:19:00 Test Item Value Reference Range Comments WHITE BLOOD CELL COUNT (BEAKER) (test aute=798) 12.8 K/ L 3.5-10.5 RED BLOOD CELL COUNT (BEAKER) (test ivpd=032) 4.54 M/ L 3.93-5.22 HEMOGLOBIN (BEAKER) (test phwr=482) 12.9 GM/DL 11.2-15.7 HEMATOCRIT (BEAKER) (test jatd=887) 43.3 % 34.1-44.9 MEAN CORPUSCULAR VOLUME (BEAKER) (test zhmv=135) 95.4 fL 79.4-94.8 MEAN CORPUSCULAR HEMOGLOBIN (BEAKER) (test 28.4 pg 25.6-32.2 pvuv=132) MEAN CORPUSCULAR HEMOGLOBIN CONC (BEAKER) (test 29.8 GM/DL 32.2-35.5 jexu=595) RED CELL DISTRIBUTION WIDTH (BEAKER) (test 14.8 % 11.7-14.4 ncmq=663) PLATELET COUNT (BEAKER) (test jruw=864) 207 K/CU MM 150-450 MEAN PLATELET VOLUME (BEAKER) (test xskf=211) 11.6 fL 9.4-12.3 NUCLEATED RED BLOOD CELLS (BEAKER) (test 0 /100 WBC 0-0 ietn=994) NEUTROPHILS RELATIVE PERCENT (BEAKER) (test 87 % yszz=001) LYMPHOCYTES RELATIVE PERCENT (BEAKER) (test 6 % seqv=494) MONOCYTES RELATIVE PERCENT (BEAKER) (test 6 % dudr=900) EOSINOPHILS RELATIVE PERCENT (BEAKER) (test 0 % ssrr=157) BASOPHILS RELATIVE PERCENT (BEAKER) (test 1 % hbhk=910) NEUTROPHILS ABSOLUTE COUNT (BEAKER) (test 11.16 K/ L 1.56-6.13 wbsk=221) LYMPHOCYTES ABSOLUTE COUNT (BEAKER) (test 0.71 K/ L 1.18-3.74 nfjn=288) MONOCYTES ABSOLUTE COUNT (BEAKER) (test 0.74 K/ L 0.24-0.36 gdjw=472) EOSINOPHILS ABSOLUTE COUNT (BEAKER) (test 0.02 K/ L 0.04-0.36 kjom=785) BASOPHILS ABSOLUTE COUNT (BEAKER) (test 0.07 K/ L 0.01-0.08 tstz=138) IMMATURE GRANULOCYTES-RELATIVE PERCENT (BEAKER) 1 % 0-1 (test lyqz=8756) BLOOD GAS, [id number] 04:01:00 Test Item Value Reference Range Comments PH ARTERIAL (BEAKER) (test uoqa=073) 7.37 7.35-7.45 PCO2 ARTERIAL (BEAKER) (test hlyw=334) 47 mmHg 35-45 PO2 ARTERIAL (BEAKER) (test vtro=715) 68 mmHg 80-90 O2 SATURATION ARTERIAL (BEAKER) (test bgrf=017) 92.4 % 96.0-97.0 HCO3 ARTERIAL (BEAKER) (test koue=069) 26 mmol/L 21-29 BASE EXCESS ARTERIAL (BEAKER) (test zqzz=606) 0.6 mmol/L -2.0-3.0 PATIENT TEMPERATURE (BEAKER) (test kzfb=9908) 37.4 C FIO2 (BEAKER) (test kyqh=0133) 40.0 % BLOOD GAS, [id number] 22:23:00 Test Item Value Reference Range Comments PH ARTERIAL (BEAKER) (test lwds=675) 7.40 7.35-7.45 PCO2 ARTERIAL (BEAKER) (test afgb=422) 42 mmHg 35-45 PO2 ARTERIAL (BEAKER) (test msat=367) 150 mmHg 80-90 O2 SATURATION ARTERIAL (BEAKER) (test phvm=283) 98.9 % 96.0-97.0 HCO3 ARTERIAL (BEAKER) (test tspf=524) 25 mmol/L 21-29 BASE EXCESS ARTERIAL (BEAKER) (test firz=812) 0.2 mmol/L -2.0-3.0 PATIENT TEMPERATURE (BEAKER) (test uvsx=3784) 36.6 C FIO2 (BEAKER) (test hvbg=0090) 40.0 % GLUCOSE-STAT [id number] 22:23:00 Test Item Value Reference Range Comments GLUCOSE RANDOM (BEAKER) (test cbzv=478) 140 mg/dL 70-110 [id number] 20:01:00 Test Item Value Reference Range Comments POTASSIUM (BEAKER) (test kevl=358) 3.7 meq/L 3.5-5.1 8 hours after PO replacement [id number] 20:01:00 Test Item Value Reference Range Comments MAGNESIUM (BEAKER) (test kzjh=765) 2.2 mg/dL 1.6-2.6 8 hours after PO replacement completedBLOOD GAS, [id number] 19:27:00 Test Item Value Reference Range Comments PH ARTERIAL (BEAKER) (test bjkm=452) 7.40 7.35-7.45 PCO2 ARTERIAL (BEAKER) (test winl=152) 40 mmHg 35-45 PO2 ARTERIAL (BEAKER) (test zwro=042) 93 mmHg 80-90 O2 SATURATION ARTERIAL (BEAKER) (test bcio=320) 97.3 % 96.0-97.0 HCO3 ARTERIAL (BEAKER) (test oegb=193) 25 mmol/L 21-29 BASE EXCESS ARTERIAL (BEAKER) (test rira=212) -0.1 mmol/L -2.0-3.0 PATIENT TEMPERATURE (BEAKER) (test imwy=8595) 36.6 C FIO2 (BEAKER) (test asbd=3017) 40.0 % POCT-GLUCOSE [id number] 19:09:00 Test Item Value Reference Range Comments POC-GLUCOSE METER (BEAKER) 123 mg/dL 70-110 TESTED AT [facility] [address] [facility] (test izpl=6616) [facility] [address] POCT-GLUCOSE [id number] 18:02:00 Test Item Value Reference Range Comments POC-GLUCOSE METER (BEAKER) 108 mg/dL 70-110 TESTED AT [address] (test pgxu=9368) [facility] [address] POCT-GLUCOSE [id number] 17:06:00 Test Item Value Reference Range Comments POC-GLUCOSE METER (BEAKER) 103 mg/dL 70-110 TESTED AT [address] (test vjhz=7746) [facility] [address] POCT-GLUCOSE [id number] 16:00:00 Test Item Value Reference Range Comments POC-GLUCOSE METER (BEAKER) 121 mg/dL 70-110 TESTED AT [address] (test msuw=7078) [facility] [address] POCT-GLUCOSE [id number] 15:45:00 Test Item Value Reference Range Comments POC-GLUCOSE METER (BEAKER) 146 mg/dL 70-110 TESTED AT [address] (test aozk=4726) [facility] [address] BLOOD GAS, [id number] 15:25:00 Test Item Value Reference Range Comments PH ARTERIAL (BEAKER) (test iijr=766) 7.33 7.35-7.45 PCO2 ARTERIAL (BEAKER) (test irfc=592) 49 mmHg 35-45 PO2 ARTERIAL (BEAKER) (test wemc=273) 84 mmHg 80-90 O2 SATURATION ARTERIAL (BEAKER) (test vglv=304) 95.8 % 96.0-97.0 HCO3 ARTERIAL (BEAKER) (test rvfr=412) 25 mmol/L 21-29 BASE EXCESS ARTERIAL (BEAKER) (test yamq=206) -1.3 mmol/L -2.0-3.0 PATIENT TEMPERATURE (BEAKER) (test jiwl=2040) 36.6 C FIO2 (BEAKER) (test cbdb=7386) 40.0 % PLATELET AGGREGATION: FUNCTION [id number] 13:34:00 Test Item Value Reference Range Comments WEAK ADP RESULT(BEAKER) (test 63 % 60-91 cnrh=0898) PLATELET FUNCTION SCREEN 60-100% indicates normal INTERP (BEAKER) (test platelet function huur=9930) [id number] (BEAKER) Teresa De León MD (electronic (test sejl=0652) signature) PLATELET COUNT AGG (BEAKER) 209 K/CU MM 150-450 (test rude=8916) for patients on clopidogrel in past two weeksRAD, CHEST, 1 VIEW, NON [id number] 13:15:00Reason for exam:->post cardiovascular procedureShould this [...] MDReport Verified Date/Time: 03/18/2018 13:15:44 Reading Location: [facility] [id number] Consult Reading Room [id number] 13:04:00 Test Item Value Reference Range Comments MAGNESIUM (BEAKER) (test bbji=234) 1.8 mg/dL 1.6-2.6 BASIC METABOLIC [id number] 13:04:00 Test Item Value Reference Range Comments SODIUM (BEAKER) (test 140 meq/L 136-145 ctyn=765) POTASSIUM (BEAKER) (test 3.0 meq/L 3.5-5.1 mzxp=506) CHLORIDE (BEAKER) (test 109 meq/L 98-107 zzqz=694) CO2 (BEAKER) (test 23 meq/L 22-29 wnxj=463) BLOOD UREA NITROGEN 29 mg/dL 7-21 (BEAKER) (test hunf=961) CREATININE (BEAKER) (test 0.89 mg/dL 0.57-1.25 bitw=065) GLUCOSE RANDOM (BEAKER) 142 mg/dL 70-105 (test vugq=830) CALCIUM (BEAKER) (test 9.3 mg/dL 8.4-10.2 njiu=997) EGFR (BEAKER) (test 61 mL/min/1.73 sq m ESTIMATED GFR IS NOT egfs=9712) ACCURATE CREATININE CLEARANCE IN PREDICTING GLOMERULAR FILTRATION RATE. ESTIMATED GFR IS NOT APPLICABLE FOR DIALYSIS PATIENTS. [id number] 12:43:00 Test Item Value Reference Range Comments PHOSPHORUS (BEAKER) (test jbqd=634) 3.9 mg/dL 2.3-4.7 LACTIC ACID, VENOUS, WHOLE [id number] 12:15:00 Test Item Value Reference Range Comments LACTATE BLOOD VENOUS (2) 1.0 mmol/L 0.5-2.2 Specimen slightly hemolyzed (BEAKER) (test sztz=2080) Effective 02/09/2016: Units/Reference Range ChangeNew: 0.5-2.2 mmol/L Previous: 5 -20 mg/dLCBC W/PLT COUNT & AUTO [id number] 12:06:00 Test Item Value Reference Range Comments WHITE BLOOD CELL COUNT (BEAKER) (test ofyy=061) 14.3 K/ L 3.5-10.5 RED BLOOD CELL COUNT (BEAKER) (test dotg=656) 4.44 M/ L 3.93-5.22 HEMOGLOBIN (BEAKER) (test qisr=580) 12.9 GM/DL 11.2-15.7 HEMATOCRIT (BEAKER) (test gfxf=057) 41.8 % 34.1-44.9 MEAN CORPUSCULAR VOLUME (BEAKER) (test mccz=518) 94.1 fL 79.4-94.8 MEAN CORPUSCULAR HEMOGLOBIN (BEAKER) (test 29.1 pg 25.6-32.2 vpwy=995) MEAN CORPUSCULAR HEMOGLOBIN CONC (BEAKER) (test 30.9 GM/DL 32.2-35.5 uyyp=452) RED CELL DISTRIBUTION WIDTH (BEAKER) (test 14.5 % 11.7-14.4 ucae=823) PLATELET COUNT (BEAKER) (test tbwf=386) 176 K/CU MM 150-450 MEAN PLATELET VOLUME (BEAKER) (test xyzk=748) 11.4 fL 9.4-12.3 NUCLEATED RED BLOOD CELLS (BEAKER) (test 0 /100 WBC 0-0 wmxi=744) NEUTROPHILS RELATIVE PERCENT (BEAKER) (test 91 % sdpl=231) LYMPHOCYTES RELATIVE PERCENT (BEAKER) (test 6 % aujz=877) MONOCYTES RELATIVE PERCENT (BEAKER) (test 1 % noyn=795) EOSINOPHILS RELATIVE PERCENT (BEAKER) (test 0 % zlrd=037) BASOPHILS RELATIVE PERCENT (BEAKER) (test 1 % bkxy=426) NEUTROPHILS ABSOLUTE COUNT (BEAKER) (test 13.02 K/ L 1.56-6.13 fifb=133) LYMPHOCYTES ABSOLUTE COUNT (BEAKER) (test 0.84 K/ L 1.18-3.74 oxqq=663) MONOCYTES ABSOLUTE COUNT (BEAKER) (test 0.09 K/ L 0.24-0.36 foag=308) EOSINOPHILS ABSOLUTE COUNT (BEAKER) (test 0.05 K/ L 0.04-0.36 wiyi=777) BASOPHILS ABSOLUTE COUNT (BEAKER) (test 0.08 K/ L 0.01-0.08 oomz=736) IMMATURE GRANULOCYTES-RELATIVE PERCENT (BEAKER) 2 % 0-1 (test udta=0794) HGB/HCT (H&H) - STAT [id number] 12:01:00 Test Item Value Reference Range Comments HEMOGLOBIN (BEAKER) (test uuny=330) 13.8 g/dL 12.0-15.0 HEMATOCRIT (BEAKER) (test ggjd=748) 41.0 % 36.0-45.0 CALCIUM, [id number] 12:01:00 Test Item Value Reference Range Comments CALCIUM IONIZED (BEAKER) (test cjyh=249) 1.25 mmol/L 1.12-1.27 PH, BLOOD (BEAKER) (test qpnf=4091) 7.37 BLOOD GAS, [id number] 12:01:00 Test Item Value Reference Range Comments PH ARTERIAL (BEAKER) (test dkhz=840) 7.38 7.35-7.45 PCO2 ARTERIAL (BEAKER) (test kfxa=012) 46 mmHg 35-45 PO2 ARTERIAL (BEAKER) (test cdoy=330) 214 mmHg 80-90 O2 SATURATION ARTERIAL (BEAKER) (test pcpt=814) 99.4 % 96.0-97.0 HCO3 ARTERIAL (BEAKER) (test oiqu=380) 26 mmol/L 21-29 BASE EXCESS ARTERIAL (BEAKER) (test spxl=786) 0.5 mmol/L -2.0-3.0 PATIENT TEMPERATURE (BEAKER) (test diog=9188) 36.7 C FIO2 (BEAKER) (test ytka=4581) 60.0 % POTASSIUM-STAT [id number] 12:01:00 Test Item Value Reference Range Comments POTASSIUM (BEAKER) (test sdye=854) 3.0 meq/L 3.6-5.5 GLUCOSE-STAT [id number] 12:01:00 Test Item Value Reference Range Comments GLUCOSE RANDOM (BEAKER) (test dimm=225) 139 mg/dL 70-110 BLOOD GAS, [id number] 10:42:00 Test Item Value Reference Range Comments PH ARTERIAL (BEAKER) (test iqqc=451) 7.39 7.35-7.45 PCO2 ARTERIAL (BEAKER) (test nfkj=219) 45 mmHg 35-45 PO2 ARTERIAL (BEAKER) (test equi=563) 260 mmHg 80-90 O2 SATURATION ARTERIAL (BEAKER) (test vgcm=051) 99.6 % 96.0-97.0 HCO3 ARTERIAL (BEAKER) (test fyxd=669) 26 mmol/L 21-29 BASE EXCESS ARTERIAL (BEAKER) (test heuq=513) 0.7 mmol/L -2.0-3.0 PATIENT TEMPERATURE (BEAKER) (test ixim=5711) 36.7 C FIO2 (BEAKER) (test pxhe=8499) 50.0 % POTASSIUM-STAT [id number] 10:42:00 Test Item Value Reference Range Comments POTASSIUM (BEAKER) (test drpk=946) 3.1 meq/L 3.6-5.5 GLUCOSE-STAT [id number] 10:42:00 Test Item Value Reference Range Comments GLUCOSE RANDOM (BEAKER) (test afll=584) 139 mg/dL 70-110 CALCIUM, [id number] 10:41:00 Test Item Value Reference Range Comments CALCIUM IONIZED (BEAKER) (test fzyh=992) 1.27 mmol/L 1.12-1.27 PH, BLOOD (BEAKER) (test fqqq=9819) 7.38 SODIUM NA-STAT [id number] 10:40:00 Test Item Value Reference Range Comments SODIUM (BEAKER) (test tbmu=103) 141 meq/L 135-148 HGB/HCT (H&H) - STAT [id number] 10:40:00 Test Item Value Reference Range Comments HEMOGLOBIN (BEAKER) (test hvzk=979) 13.7 g/dL 12.0-15.0 HEMATOCRIT (BEAKER) (test ofiz=349) 40.0 % 36.0-45.0 BLOOD GAS, [id number] 09:53:00 Test Item Value Reference Range Comments PH ARTERIAL (BEAKER) (test wjid=190) 7.45 7.35-7.45 PCO2 ARTERIAL (BEAKER) (test qlcz=829) 38 mmHg 35-45 PO2 ARTERIAL (BEAKER) (test qynh=927) 187 mmHg 80-90 O2 SATURATION ARTERIAL (BEAKER) (test ilzb=907) 99.4 % 96.0-97.0 HCO3 ARTERIAL (BEAKER) (test rwox=387) 26 mmol/L 21-29 BASE EXCESS ARTERIAL (BEAKER) (test cpvy=734) 1.7 mmol/L -2.0-3.0 PATIENT TEMPERATURE (BEAKER) (test zlqv=9384) 36.0 C FIO2 (BEAKER) (test nbfm=9576) 50.0 % POTASSIUM-STAT [id number] 09:53:00 Test Item Value Reference Range Comments POTASSIUM (BEAKER) (test hhci=876) 3.0 meq/L 3.6-5.5 GLUCOSE-STAT [id number] 09:53:00 Test Item Value Reference Range Comments GLUCOSE RANDOM (BEAKER) (test trbm=808) 135 mg/dL 70-110 CALCIUM, [id number] 09:53:00 Test Item Value Reference Range Comments CALCIUM IONIZED (BEAKER) (test pnzw=257) 1.01 mmol/L 1.12-1.27 PH, BLOOD (BEAKER) (test xrmn=9680) 7.43 SODIUM NA-STAT [id number] 09:51:00 Test Item Value Reference Range Comments SODIUM (BEAKER) (test yazl=145) 137 meq/L 135-148 HGB/HCT (H&H) - STAT [id number] 09:51:00 Test Item Value Reference Range Comments HEMOGLOBIN (BEAKER) (test lqie=800) 14.1 g/dL 12.0-15.0 HEMATOCRIT (BEAKER) (test nufs=125) 41.0 % 36.0-45.0 BLOOD GAS, [id number] 08:48:00 Test Item Value Reference Range Comments PH ARTERIAL (BEAKER) (test bqmw=597) 7.43 7.35-7.45 PCO2 ARTERIAL (BEAKER) (test eoyu=488) 47 mmHg 35-45 PO2 ARTERIAL (BEAKER) (test gdgf=618) 481 mmHg 80-90 O2 SATURATION ARTERIAL (BEAKER) (test ckte=564) 99.9 % 96.0-97.0 HCO3 ARTERIAL (BEAKER) (test fdmd=395) 31 mmol/L 21-29 BASE EXCESS ARTERIAL (BEAKER) (test mbsp=118) 5.1 mmol/L -2.0-3.0 PATIENT TEMPERATURE (BEAKER) (test otss=2911) 36.5 C FIO2 (BEAKER) (test qniy=3296) 100.0 % POTASSIUM-STAT [id number] 08:48:00 Test Item Value Reference Range Comments POTASSIUM (BEAKER) (test nxmj=571) 3.1 meq/L 3.6-5.5 GLUCOSE-STAT [id number] 08:48:00 Test Item Value Reference Range Comments GLUCOSE RANDOM (BEAKER) (test yivt=053) 116 mg/dL 70-110 HGB/HCT (H&H) - STAT [id number] 08:48:00 Test Item Value Reference Range Comments HEMOGLOBIN (BEAKER) (test nrqf=271) 15.5 g/dL 12.0-15.0 HEMATOCRIT (BEAKER) (test eyis=240) 46.0 % 36.0-45.0 CALCIUM, [id number] 08:47:00 Test Item Value Reference Range Comments CALCIUM IONIZED (BEAKER) (test uofa=199) 1.12 mmol/L 1.12-1.27 PH, BLOOD (BEAKER) (test qwvt=3790) 7.42 SODIUM NA-STAT [id number] 08:46:00 Test Item Value Reference Range Comments SODIUM (BEAKER) (test tkdf=337) 141 meq/L 135-148 POCT-GLUCOSE [id number] 07:58:00 Test Item Value Reference Range Comments POC-GLUCOSE METER (BEAKER) 105 mg/dL 70-110 TESTED AT [facility] [address] [facility] (test rkpz=3886) [place] [address] [id number] 15:19:00 Test Item Value Reference Range Comments PARTIAL THROMBOPLASTIN TIME (BEAKER) (test 27.8 seconds 22.5-36.0 kglp=362) PROTHROMBIN [id number] 15:18:00 Test Item Value Reference Range Comments PROTIME (BEAKER) (test sadg=561) 14.4 seconds 11.7-14.7 INR (BEAKER) (test dpfy=447) 1.1 <=5.9 RECOMMENDED COUMADIN/WARFARIN INR THERAPY RANGESSTANDARD DOSE: 2.0 - 3.0 Includes: PROPHYLAXIS forvenous thrombosis, systemic embolization; TREATMENT for venous thrombosis and/or pulmonary embolus.HIGH RISK: Target INR is 2.5-3.5 for patients with mechanical heart valves.COMPREHENSIVE METABOLIC [id number] 15:10:00 Test Item Value Reference Range Comments TOTAL PROTEIN (BEAKER) 7.7 gm/dL 6.0-8.3 (test vpib=950) ALBUMIN (BEAKER) (test 4.1 g/dL 3.5-5.0 xbmw=3281) ALKALINE PHOSPHATASE 40 U/L 40-150 (BEAKER) (test uqjs=371) BILIRUBIN TOTAL (BEAKER) 0.8 mg/dL 0.2-1.2 (test oxbp=043) SODIUM (BEAKER) (test 143 meq/L 136-145 mybn=393) POTASSIUM (BEAKER) (test 4.1 meq/L 3.5-5.1 yzii=880) CHLORIDE (BEAKER) (test 101 meq/L 98-107 sfse=730) CO2 (BEAKER) (test 30 meq/L 22-29 sgrv=320) BLOOD UREA NITROGEN 31 mg/dL 7-21 (BEAKER) (test kwqm=907) CREATININE (BEAKER) (test 1.17 mg/dL 0.57-1.25 iddc=778) GLUCOSE RANDOM (BEAKER) 142 mg/dL 70-105 (test fykl=024) CALCIUM (BEAKER) (test 10.5 mg/dL 8.4-10.2 fhpg=390) AST (SGOT) (BEAKER) (test 28 U/L 5-34 saxh=737) ALT (SGPT) (BEAKER) (test 18 U/L 6-55 qkgj=345) EGFR (BEAKER) (test 44 mL/min/1.73 sq m ESTIMATED GFR IS NOT qvtb=9239) ACCURATE CREATININE CLEARANCE IN PREDICTING GLOMERULAR FILTRATION RATE. ESTIMATED GFR IS NOT APPLICABLE FOR DIALYSIS PATIENTS. RAD, CHEST, 2 [id number] 14:44:00Reason for exam:->preopFINAL REPORT Chest two views [...] MDReport Verified Date/Time: 03/11/2018 14:44:31 Reading Location: [facility] C013W Consult Reading Room CBC W/PLT COUNT & AUTO [id number] 14:43:00 Test Item Value Reference Range Comments WHITE BLOOD CELL COUNT (BEAKER) (test smqj=097) 7.8 K/ L 3.5-10.5 RED BLOOD CELL COUNT (BEAKER) (test fcpy=152) 5.48 M/ L 3.93-5.22 HEMOGLOBIN (BEAKER) (test lhbp=308) 15.6 GM/DL 11.2-15.7 HEMATOCRIT (BEAKER) (test lcpn=791) 51.3 % 34.1-44.9 MEAN CORPUSCULAR VOLUME (BEAKER) (test dcog=403) 93.6 fL 79.4-94.8 MEAN CORPUSCULAR HEMOGLOBIN (BEAKER) (test 28.5 pg 25.6-32.2 fhoy=413) MEAN CORPUSCULAR HEMOGLOBIN CONC (BEAKER) (test 30.4 GM/DL 32.2-35.5 jvta=190) RED CELL DISTRIBUTION WIDTH (BEAKER) (test 14.2 % 11.7-14.4 whqz=651) PLATELET COUNT (BEAKER) (test arel=171) 251 K/CU MM 150-450 MEAN PLATELET VOLUME (BEAKER) (test nobh=338) 11.4 fL 9.4-12.3 NUCLEATED RED BLOOD CELLS (BEAKER) (test 0 /100 WBC 0-0 kwhi=097) NEUTROPHILS RELATIVE PERCENT (BEAKER) (test 85 % hiji=432) LYMPHOCYTES RELATIVE PERCENT (BEAKER) (test 10 % lxlf=479) MONOCYTES RELATIVE PERCENT (BEAKER) (test 3 % twec=661) EOSINOPHILS RELATIVE PERCENT (BEAKER) (test 0 % urir=511) BASOPHILS RELATIVE PERCENT (BEAKER) (test 1 % vcsn=665) NEUTROPHILS ABSOLUTE COUNT (BEAKER) (test 6.61 K/ L 1.56-6.13 rcty=182) LYMPHOCYTES ABSOLUTE COUNT (BEAKER) (test 0.79 K/ L 1.18-3.74 oxzk=259) MONOCYTES ABSOLUTE COUNT (BEAKER) (test 0.26 K/ L 0.24-0.36 uube=921) EOSINOPHILS ABSOLUTE COUNT (BEAKER) (test 0.01 K/ L 0.04-0.36 shcz=348) BASOPHILS ABSOLUTE COUNT (BEAKER) (test 0.07 K/ L 0.01-0.08 dzko=576) IMMATURE GRANULOCYTES-RELATIVE PERCENT (BEAKER) 1 % 0-1 (test pamr=0235)
[2019-06-13] MEDS ORDERED: ONDANSETRON 4 MG/2 ML VIAL ONE (12:48)
[2019-06-13] MEDS ORDERED: NA CHLORIDE 0.9% 1,000 ML ONE ×2 (12:48→14:07)
[2019-06-13 12:49] LABS: Absolute Lymphocytes (CBC) 0.9 K/uL (0.7-4.9); Basophils % 0.4 % (0-1.3); Hematocrit 51.3 % (36.0-45.0); Lymphocytes % 8.6 % (15.3-44.8); MPV 9.9 fL (7.6-11.3); RBC Red Blood Cell Count 5.55 M/uL (3.86-4.86)
[2019-06-13 12:57] LABS: Protime INR 1.03
--- NOTE | 2019-06-13 12:59 | RAD REPORT ---
EXAM DESCRIPTION: [facility] Single View06/13/2019 12:49 pm CLINICAL HISTORY: Abdominal pain COMPARISON: January 2019 FINDINGS: The lungs appear clear of acute infiltrate. The heart is moderately enlarged. Pacemaker l mateo are in place. IMPRESSION: No acute abnormalities displayed
[2019-06-13 13:14] LABS: Albumin 3.6 g/dL (3.4-5.0); Bilirubin Direct 0.3 mg/dL (0-0.2); Bilirubin Total 0.9 mg/dL (0.2-1.0); Potassium 3.8 mmol/L (3.5-5.1); Troponin (Emerg Dept Use Only) 0.4 ng/mL (0.0-0.045)
[2019-06-13 13:38] LABS: Urine Blood NEGATIVE (NEG); Urine Glucose NEGATIVE (NEG); Urine Protein 2+ (NEG)
--- NOTE | 2019-06-13 14:03 | ER ---
Nurse's Notes [facility] Name: Fanny Arceo Age: 83 yrs Sex: Female : 1935 Arrival Date: 06/13/2019 Time: 11:56 Bed 24 Private MD: Sherry Stock R Diagnosis: Abdominal tenderness;Acute pancreatitis, unspecified;Acute pancreatitis;Obesity, unspecified Presentation: 06/13 12:05 Presenting complaint: Patient states: Epigastric pain and vomiting that started aj1 yesterday. Denies fever, diarrhea. Transition of care: patient was not received from another setting of care. Onset of symptoms was June 12, 2019. Risk Assessment: Do you want to hurt yourself or someone else? Patient reports no desire to harm self or others. Initial Sepsis Screen: Does the patient meet any 2 criteria? No. Patient's initial sepsis screen is negative. Does the patient have a suspected source of infection? Yes: Acute abdominal pain. Care prior to arrival: None. 12:05 Method Of Arrival: Wheelchair aj1 12:05 Acuity: JESSE 3 aj1 Triage Assessment: 12:07 General: Appears uncomfortable, Behavior is calm, cooperative, appropriate for age. aj1 Pain: Complains of pain in epigastric area Pain currently is 8 out of 10 on a pain scale. Neuro: Level of Consciousness is awake, alert, obeys commands. Cardiovascular: Patient's skin is warm and dry. Respiratory: Airway is patent Respiratory effort is even, unlabored, Respiratory pattern is regular, symmetrical. GI: Reports upper abdominal pain, vomiting. Historical: - Allergies: 12:07 Atenolol; aj1 12:07 Morphine; aj1 12:07 Simvastatin; aj1 12:07 Sulfa (Sulfonamide Antibiotics); aj1 12:07 Ticlopidine HCl; aj1 - Home Meds: 13:47 levothyroxine 125 mcg tab 1 tab once daily [Active]; prednisone 10 mg Oral tab 1 tab ca1 once daily [Active]; aspirin 325 mg Oral TbEC 1 tab once daily [Active]; losartan-hydrochlorothiazide 100-25 mg Oral tab 1 tab once daily [Active]; gabapentin 600 mg Oral tab 1 tab twice a day [Active]; Ultram 50 mg Oral tab 1 tab twice a day [Active]; Zoloft 50 mg Oral tab 1 tab nightly [Active]; famotidine 40 mg Oral tab 1 tab once daily [Active]; fenofibrate 145 mg Oral 1 cap once daily [Active]; - PMHx: 12:07 Atrial Fib; CAD; CHF; chronic renal failure; Clot to right arm; COPD; Depression; aj1 Diabetes - IDDM; GERD; High Cholesterol; Hyperlipidemia; Hypertension; Hypothyroidism; neuropathy; Sleep Apnea; - PSHx: 13:47 Hysterectomy; Cholecystectomy; Appendectomy; pacemaker; Heart stents; Aneurysm of Leg ca1 Artery; - Immunization history:: Flu vaccine is not up to date. - Social history:: Smoking status: Patient/guardian denies using tobacco. - Ebola Screening: : Patient denies travel to an Ebola-affected area in the 21 days before illness onset. - Family history:: not pertinent. Screenin:15 Abuse screen: Denies threats or abuse. Denies injuries from another. Nutritional ca1 screening: No deficits noted. Tuberculosis screening: No symptoms or risk factors identified. Fall Risk IV access (20 points). Ambulatory Aid- Crutches/Cane/Walker (15 pts). Total Pugh Fall Scale indicates Low Risk Score (25-44 pts). Fall prevention measures have been instituted. Side Rails Up X 2 Family Present and informed to notify staff if they need to leave bedside As available Patient and Family Educated on Fall Prevention Program and strategies. Assessment: 12:15 General: Appears in no apparent distress. comfortable, Behavior is calm, cooperative, ca1 appropriate for age. Pain: Complains of pain in epigastric area Pain does not radiate. Pain currently is 7 out of 10 on a pain scale. Pain began 1 day ago. Is continuous. Neuro: Level of Consciousness is awake, alert, obeys commands, Oriented to person, place, time, situation. Cardiovascular: Heart tones S1 S2 present Capillary refill < 3 seconds Patient's skin is warm and dry. Pulses Rhythm is Respiratory: Airway is patent Respiratory effort is even, unlabored, Respiratory pattern is regular, symmetrical, Breath sounds are clear bilaterally. GI: Abdomen is round non-distended, Bowel sounds present X 4 quads. Abd is soft X 4 quads Abdomen is tender to palpation in epigastric area and left lower quadrant Reports nausea, vomiting, since last night. : No deficits noted. No signs and/or symptoms were reported regarding the genitourinary system. EENT: No deficits noted. No signs and/or symptoms were reported regarding the EENT system. Derm: Skin is intact, is thin, Skin is pink, warm \T\ dry. Musculoskeletal: Circulation, motion, and sensation intact. Capillary refill < 3 seconds, Range of motion: intact in all extremities. 13:32 Reassessment: Patient appears in no apparent distress at this time. Patient and/or ca1 family updated on plan of care and expected duration. Pain level reassessed. Patient is alert, oriented x 3, equal unlabored respirations, skin warm/dry/pink. 14:25 Reassessment: Oral Contrast completed. Notified CT. ca1 14:25 Reassessment: Patient appears in no apparent distress at this time. Patient and/or ca1 family updated on plan of care and expected duration. Pain level reassessed. Patient is alert, oriented x 3, equal unlabored respirations, skin warm/dry/pink. 15:31 Reassessment: Patient appears in no apparent distress at this time. Patient and/or ca1 family updated on plan of care and expected duration. Pain level reassessed. Patient is alert, oriented x 3, equal unlabored respirations, skin warm/dry/pink. Pt c/o abdl pain. Notified provider. Orders given. 16:08 Reassessment: Called report to NIKOLAS Sepulveda at [facility]. ca1 16:35 Reassessment: Patient appears in no apparent distress at this time. Patient and/or ca1 family updated on plan of care and expected duration. Pain level reassessed. Patient is alert, oriented x 3, equal unlabored respirations, skin warm/dry/pink. Pt c/o nausea. Notified provider. Order given. Family still at bedside. Vital Signs: 12:07 BP 138 / 95; Pulse 71; Resp 20 S; Temp 98.7(TE); Pulse Ox 92% on R/A; Weight 90.72 kg aj1 (R); Height 5 ft. 6 in. (167.64 cm) (R); Pain 8/10; 12:40 Pulse Ox 88% on R/A; ca1 13:32 BP 174 / 92; Pulse 70; Resp 19 S; Pulse Ox 97% on 2 lpm NC; ca1 14:30 BP 193 / 97; Pulse 70; Resp 16 S; Pulse Ox 99% ; ca1 15:14 BP 162 / 65; Pulse 70; Resp 19 S; Pulse Ox 98% on 2 lpm NC; ca1 16:00 BP 135 / 72; Pulse 70; Resp 21 S; Pulse Ox 98% on 2 lpm NC; ca1 17:05 BP 121 / 66; Pulse 70; Resp 20 S; Temp 98(O); Pulse Ox 98% on 2 lpm NC; ca1 12:07 Body Mass Index 32.28 (90.72 kg, 167.64 cm) aj1 ED Course: 11:56 Patient arrived in ED. ag5 11:57 Sherry Stock MD is Private Physician. ag5 12:06 Triage completed. aj1 12:07 Arm band placed on Patient placed in an exam room. aj1 12:15 Patient has correct armband on for positive identification. Placed in gown. Bed in low ca1 position. Call light in reach. Side rails up X2. classroom monitor on. Pulse ox on. NIBP on. Warm blanket given. 12:17 Jayson Cooney MD is Attending Physician. [facility] 12:22 Staci Villalobos, NIKOLAS is Primary Nurse. ca1 12:40 No provider procedures requiring assistance completed. Inserted saline lock: 22 gauge ca1 in left antecubital area, using aseptic technique. Blood collected. 14:12 Oral contrast given. vm2 14:54 CT Abd/Pelvis - PO and IV Contrast In Process Unspecified. EDMS 17:06 Patient transferred, IV remains in place. ca1 Administered Medications: 12:40 Drug: NS 0.9% 1000 ml Route: IV; Rate: 125 ml/hr; Site: left antecubital; ca1 16:30 Follow up: Urine output 220 ml; Response: No adverse reaction; IV Status: Infusion ca1 continued upon transfer 12:41 Drug: Zofran 4 mg Route: IVP; Site: left antecubital; ca1 13:30 Follow up: Response: No adverse reaction; Nausea is decreased ca1 14:00 Drug: NS 0.9% 1000 ml Route: IV; Rate: 1 bolus; Site: left antecubital; ca1 15:12 Follow up: Response: No adverse reaction; IV Status: Completed infusion ca1 14:01 Drug: fentaNYL (PF) 25 mcg Route: IVP; Site: left antecubital; ca1 14:40 Follow up: Response: No adverse reaction; Pain is unchanged, physician notified ca1 14:05 Drug: Pepcid 20 mg Route: IVP; Site: left antecubital; ca1 15:00 Follow up: Response: No adverse reaction ca1 14:43 Drug: fentaNYL (PF) 25 mcg Route: IVP; Site: left antecubital; ca1 15:25 Follow up: Response: No adverse reaction; Pain is unchanged, physician notified ca1 15:12 Drug: Enalaprilat 1.25 mg Route: IV; Rate: per protocol; Site: left antecubital; ca1 16:00 Follow up: Response: No adverse reaction; Blood pressure is lowered; IV Status: SLOW ca1 IVP per pharmacu protocol 15:31 Drug: fentaNYL (PF) 25 mcg {Note: RASS - 0.} Route: IVP; Site: left antecubital; ca1 16:30 Follow up: Response: No adverse reaction; Pain is decreased ca1 16:35 Drug: Phenergan 12.5 mg Route: IVP; Site: left antecubital; ca1 17:00 Follow up: Response: No adverse reaction; Nausea is decreased ca1 Output: 16:30 Urine: 220ml; Total: 220ml. ca1 Outcome: 14:02 ER care complete, transfer ordered by MD. tate 17:11 Transferred by ground EMS to [facility], Transfer form completed. ca1 X-rays sent w/ patient. 17:11 Condition: stable 17:11 Instructed on the need for transfer. 17:15 Patient left the ED. ca1 Signatures: Dispatcher [employer] EDMS Esther Alvarenga RN RN Jayson Ghosh MD MD cha McGuire, [facility] Staci Villalobos RN RN ca1 Ashok Yun ag5 Corrections: (The following items were deleted from the chart) 12:09 12:07 EKG completed in triage. Results shown to . paula mitchell 13:33 13:32 BP 174 / 92; Pulse 70bpm; Resp 19bpm; Spontaneous; Pulse Ox 97% RA; ca1 ca1 17:03 16:35 Reassessment: Patient appears in no apparent distress at this time. Patient ca1 and/or family updated on plan of care and expected duration. Pain level reassessed. Patient is alert, oriented x 3, equal unlabored respirations, skin warm/dry/pink. Pt c/o nausea. Notified provider. Order given ca1 17:30 16:30 Reassessment: Fentanyl Transdermal Patch applied on R upper arm. ca1 ca1
--- NOTE | 2019-06-13 14:03 | EDPHYS ---
Physician Documentation [facility] Name: Fanny Arceo Age: 83 yrs Sex: Female : 1935 Arrival Date: 06/13/2019 Time: 11:56 Bed 24 Private MD: Sherry Stock R ED Physician Jayson Cooney HPI: 06/13 13:58 This 83 yrs old Female presents to ER via Wheelchair with complaints of lea Abdominal Pain, Vomiting. 13:58 The patient presents to the emergency department with nausea, vomiting, that is lea intermittent. 13:58 The patient presents with abdominal pain. Onset: The symptoms/episode began/occurred 2 lea day(s) ago. Onset: The symptoms/episode began/occurred 2 day(s) ago. Possible causes: unknown. The symptoms are aggravated by nothing. The symptoms are alleviated by nothing. Associated signs and symptoms: The patient has no apparent associated signs or symptoms. The symptoms radiate to back. Historical: - Allergies: 12:07 Atenolol; aj1 12:07 Morphine; aj1 12:07 Simvastatin; aj1 12:07 Sulfa (Sulfonamide Antibiotics); aj1 12:07 Ticlopidine HCl; aj1 - Home Meds: 13:47 levothyroxine 125 mcg tab 1 tab once daily [Active]; prednisone 10 mg Oral tab 1 tab ca1 once daily [Active]; aspirin 325 mg Oral TbEC 1 tab once daily [Active]; losartan-hydrochlorothiazide 100-25 mg Oral tab 1 tab once daily [Active]; gabapentin 600 mg Oral tab 1 tab twice a day [Active]; Ultram 50 mg Oral tab 1 tab twice a day [Active]; Zoloft 50 mg Oral tab 1 tab nightly [Active]; famotidine 40 mg Oral tab 1 tab once daily [Active]; fenofibrate 145 mg Oral 1 cap once daily [Active]; - PMHx: 12:07 Atrial Fib; CAD; CHF; chronic renal failure; Clot to right arm; COPD; Depression; aj1 Diabetes - IDDM; GERD; High Cholesterol; Hyperlipidemia; Hypertension; Hypothyroidism; neuropathy; Sleep Apnea; - PSHx: 13:47 Hysterectomy; Cholecystectomy; Appendectomy; pacemaker; Heart stents; Aneurysm of Leg ca1 Artery; - Immunization history:: Flu vaccine is not up to date. - Social history:: Smoking status: Patient/guardian denies using tobacco. - Ebola Screening: : Patient denies travel to an Ebola-affected area in the 21 days before illness onset. - Family history:: not pertinent. ROS: 13:58 Constitutional: Negative for fever, chills, and weight loss, Eyes: Negative for injury, lea pain, redness, and discharge, ENT: Negative for injury, pain, and discharge, Neck: Negative for injury, pain, and swelling, Cardiovascular: Negative for chest pain, palpitations, and edema, Respiratory: Negative for shortness of breath, cough, wheezing, and pleuritic chest pain, Back: Negative for injury and pain, : Negative for injury, bleeding, discharge, and swelling, MS/Extremity: Negative for injury and deformity, Skin: Negative for injury, rash, and discoloration, Neuro: Negative for headache, weakness, numbness, tingling, and seizure, Psych: Negative for depression, anxiety, suicide ideation, homicidal ideation, and hallucinations, Allergy/Immunology: Negative for hives, rash, and allergies, Endocrine: Negative for neck swelling, polydipsia, polyuria, polyphagia, and marked weight changes, Hematologic/Lymphatic: Negative for swollen nodes, abnormal bleeding, and unusual bruising. 13:58 Abdomen/GI: Positive for abdominal pain, nausea and vomiting, of the epigastric area, right upper quadrant and left upper quadrant. Exam: 13:58 Constitutional: This is a well developed, well nourished patient who is awake, alert, lea and in no acute distress. Head/Face: Normocephalic, atraumatic. Eyes: Pupils equal round and reactive to light, extra-ocular motions intact. Lids and lashes normal. Conjunctiva and sclera are non-icteric and not injected. Cornea within normal limits. Periorbital areas with no swelling, redness, or edema. ENT: Nares patent. No nasal discharge, no septal abnormalities noted. Tympanic membranes are normal and external auditory canals are clear. Oropharynx with no redness, swelling, or masses, exudates, or evidence of obstruction, uvula midline. Mucous membranes moist. Neck: Trachea midline, no thyromegaly or masses palpated, and no cervical lymphadenopathy. Supple, full range of motion without nuchal rigidity, or vertebral point tenderness. No Meningismus. Chest/axilla: Normal chest wall appearance and motion. Nontender with no deformity. No lesions are appreciated. Cardiovascular: Regular rate and rhythm with a normal S1 and S2. No gallops, murmurs, or rubs. Normal PMI, no JVD. No pulse deficits. Respiratory: Lungs have equal breath sounds bilaterally, clear to auscultation and percussion. No rales, rhonchi or wheezes noted. No increased work of breathing, no retractions or nasal flaring. Back: No spinal tenderness. No costovertebral tenderness. Full range of motion. Female : Normal external genitalia. Skin: Warm, dry with normal turgor. Normal color with no rashes, no lesions, and no evidence of cellulitis. MS/ Extremity: Pulses equal, no cyanosis. Neurovascular intact. Full, normal range of motion. Neuro: Awake and alert, GCS 15, oriented to person, place, time, and situation. Cranial nerves II-XII grossly intact. Motor strength 5/5 in all extremities. Sensory grossly intact. Cerebellar exam normal. Normal gait. Psych: Awake, alert, with orientation to person, place and time. Behavior, mood, and affect are within normal limits. 13:58 Abdomen/GI: Inspection: abdomen appears normal, distension, Bowel sounds: normal, Palpation: mild abdominal tenderness, moderate abdominal tenderness, in the epigastric area, right upper quadrant and left upper quadrant, Liver: is firm, Hernia: not appreciated. Vital Signs: 12:07 BP 138 / 95; Pulse 71; Resp 20 S; Temp 98.7(TE); Pulse Ox 92% on R/A; Weight 90.72 kg aj1 (R); Height 5 ft. 6 in. (167.64 cm) (R); Pain 8/10; 12:40 Pulse Ox 88% on R/A; ca1 13:32 BP 174 / 92; Pulse 70; Resp 19 S; Pulse Ox 97% on 2 lpm NC; ca1 14:30 BP 193 / 97; Pulse 70; Resp 16 S; Pulse Ox 99% ; ca1 15:14 BP 162 / 65; Pulse 70; Resp 19 S; Pulse Ox 98% on 2 lpm NC; ca1 16:00 BP 135 / 72; Pulse 70; Resp 21 S; Pulse Ox 98% on 2 lpm NC; ca1 17:05 BP 121 / 66; Pulse 70; Resp 20 S; Temp 98(O); Pulse Ox 98% on 2 lpm NC; ca1 12:07 Body Mass Index 32.28 (90.72 kg, 167.64 cm) aj1 MDM: 12:17 Patient medically screened. [facility] 14:00 Data reviewed: vital signs, nurses notes, lab test result(s), EKG, radiologic studies. [facility] 06/13 12:32 Order name: Basic Metabolic Panel; Complete Time: 13:57 [facility] 06/13 12:32 Order name: CBC with Diff [facility] 06/13 12:32 Order name: LFT's; Complete Time: 13:57 [facility] 06/13 12:32 Order name: Magnesium; Complete Time: 13:57 [facility] 06/13 12:32 Order name: NT PRO-BNP; Complete Time: 13:57 [facility] 06/13 12:32 Order name: PT-INR [facility] 06/13 12:32 Order name: Troponin (emerg Dept Use Only); Complete Time: 13:57 [facility] 06/13 12:32 Order name: XRAY Chest (1 view) [facility] 06/13 12:32 Order name: Lipase; Complete Time: 13:57 [facility] 06/13 12:32 Order name: Urine Culture [facility] 06/13 12:51 Order name: CBC with Automated Diff; Complete Time: 13:57 [facility] 06/13 12:59 Order name: Protime (+INR); Complete Time: 13:57 [facility] 06/13 13:15 Order name: RAD; Complete Time: 13:57 [facility] 06/13 13:36 Order name: Urine Dipstick--Ancillary (enter results); Complete Time: 13:57 06/13 12:32 Order name: EKG; Complete Time: 12:33 [facility] 06/13 12:32 Order name: Cardiac monitoring; Complete Time: 13:01 [facility] 06/13 12:32 Order name: EKG - Nurse/Tech; Complete Time: 13:01 [facility] 06/13 12:32 Order name: IV Saline Lock; Complete Time: 13:01 [facility] 06/13 12:32 Order name: Labs collected and sent; Complete Time: 13:01 [facility] 06/13 12:32 Order name: O2 Per Protocol; Complete Time: 13:01 [facility] 06/13 13:57 Order name: CT Abd/Pelvis - PO and IV Contrast; Complete Time: 16:49 [facility] 06/13 12:32 Order name: O2 Sat Monitoring; Complete Time: 13:01 [facility] 06/13 12:32 Order name: Urine Dipstick-Ancillary (obtain specimen); Complete Time: 13:32 [facility] Administered Medications: 12:40 Drug: NS 0.9% 1000 ml Route: IV; Rate: 125 ml/hr; Site: left antecubital; ca1 16:30 Follow up: Urine output 220 ml; Response: No adverse reaction; IV Status: Infusion ca1 continued upon transfer 12:41 Drug: Zofran 4 mg Route: IVP; Site: left antecubital; ca1 13:30 Follow up: Response: No adverse reaction; Nausea is decreased ca1 14:00 Drug: NS 0.9% 1000 ml Route: IV; Rate: 1 bolus; Site: left antecubital; ca1 15:12 Follow up: Response: No adverse reaction; IV Status: Completed infusion ca1 14:01 Drug: fentaNYL (PF) 25 mcg Route: IVP; Site: left antecubital; ca1 14:40 Follow up: Response: No adverse reaction; Pain is unchanged, physician notified ca1 14:05 Drug: Pepcid 20 mg Route: IVP; Site: left antecubital; ca1 15:00 Follow up: Response: No adverse reaction ca1 14:43 Drug: fentaNYL (PF) 25 mcg Route: IVP; Site: left antecubital; ca1 15:25 Follow up: Response: No adverse reaction; Pain is unchanged, physician notified ca1 15:12 Drug: Enalaprilat 1.25 mg Route: IV; Rate: per protocol; Site: left antecubital; ca1 16:00 Follow up: Response: No adverse reaction; Blood pressure is lowered; IV Status: SLOW ca1 IVP per pharmacu protocol 15:31 Drug: fentaNYL (PF) 25 mcg {Note: RASS - 0.} Route: IVP; Site: left antecubital; ca1 16:30 Follow up: Response: No adverse reaction; Pain is decreased ca1 16:35 Drug: Phenergan 12.5 mg Route: IVP; Site: left antecubital; ca1 17:00 Follow up: Response: No adverse reaction; Nausea is decreased ca1 Disposition: 06/13/19 14:02 Transfer ordered to [facility]. Diagnosis are Abdominal tenderness, Acute pancreatitis, unspecified, Acute pancreatitis, Obesity, unspecified. - Reason for transfer: Higher level of care. - Accepting physician is TO [facility] , [facility]. - Condition is Fair. - Problem is new. - Symptoms have improved. Signatures: Dispatcher [employer] Esther Ponce, RN RN aj1 Jayson Cooney MD MD cha Acob, Cheryl, RN RN ca1 Corrections: (The following items were deleted from the chart) 17:15 14:02 06/13/2019 14:02 Transfer ordered to [facility]. Diagnosis is ca1 Abdominal tenderness; Acute pancreatitis, unspecified; Acute pancreatitis; Obesity, unspecified. Reason for transfer: Higher level of care. Accepting physician is TO [facility] , [facility]. Condition is Fair. Problem is new. Symptoms have improved. lea
[2019-06-13] MEDS ORDERED: FAMOTIDINE 20 MG/2 ML VIAL IV ONE (14:07)
[2019-06-13] MEDS ORDERED: FENTANYL CITR 100 MCG/2 ML ONE ×3 (14:07→15:29)
[2019-06-13] MEDS ORDERED: ENALAPRILAT 1.25 MG/ML VIAL IV ONE (14:46)
--- NOTE | 2019-06-13 15:11 | RAD REPORT ---
EXAM DESCRIPTION: CT - Abdomen Pelvis W Contrast - 06/13/2019 2:53 pm CLINICAL HISTORY: ABD PAINepigastric pain COMPARISON: April 2018 TECHNIQUE: Biphasic, helical CT imaging of the abdomen and pelvis was performed following 100 ml non -ionic IV contrast. No oral contrast administered. All CT scans are performed using dose optimization technique as appropriate and may include automated exposure control or mA/KV adjustment according to patient size. FINDINGS: No acute findings in the lung parenchyma or pleura at each base. Cardiomegaly is present. There is evidence for left ventricular muscular hypertrophy and biatrial enlargement. No pericardial effusion. Liver size is normal. Cyst in the left lobe liver has not change from April 2018. No mass within the p ancreatic parenchyma. It is a trace amount of stranding in proximity to the pancreatic tail. This is a minimal finding. Acute pancreatitis is not suspected without supporting clinical findings. Gallbladder is absent. Biliary tree dilatation is present with the common bile duct 12 mm. This is no t substantially different from the prior study in this is believed to be the reservoir effect seen af ter a cholecystectomy. Correlation is needed with any clinical or laboratory findings for biliary obs truction. Symmetric renal function is seen with no hydronephrosis or suspicious renal mass. No pyelonephritis o r acute parenchymal process. Bilateral renal cysts are present. No acute renal finding seen. No adren al abnormality seen. Urinary bladder shows no suspicious findings. No gastric dilatation or wall thickening. No dilation of the small bowel. No appendicitis findings. I leocecal valve is normal. No free air, free fluid or inflammatory stranding. No mass, bulky lymphad enopathy or omental thickening. Postsurgical changes are present along with thinning of the anterior abdominal wall. There is a convex bowing that is seen in the lower abdominal wall. A specific defect of the abdominal wall is not confirmed. Disc and bony degenerative changes are present. Vascular calcifications are present. Dense mesenteric calcifications are present. Bowel ischemia is n ot suspected. Aortobifem graft is in place. [place] distal aorta and proximal iliac vasculature are oc cluded. IMPRESSION: No obstruction, free air or surgically emergent finding identified. A trace amount of stranding adjacent to the tail of the pancreas is unlikely to be pancreatitis. Status post cholecystectomy with biliary tree dilatation not substantially different from 2018. This is favored to be the reservoir effect after cholecystectomy rather than biliary obstruction. Aortobifem graft with no occlusion. Prominent mesenteric calcifications are present without bowel isc hemia findings.
[2019-06-13] MEDS ORDERED: PROMETHAZINE 25 MG/ML VIAL ONE (16:33)
[2019-06-13] MEDS ORDERED: DICYCLOMINE HCL 20 MG/2 ML AMP IM ONE (16:50)
[2019-06-13 17:27] VITALS: O2SAT 98
[2019-06-13 17:30] VITALS: BP 121/66; TEMP 98
--- NOTE | 2019-06-14 07:51 | EKG ---
Test Date: 2019-06-13 Test Time: 12:49:35 Record Press Operator: GIOVANNA MEASUREMENT RESULTS: Intervals: Rate: 70 VT: QRSD: 180 QT: 468 QTc: 505 Ruth: P: VT: QRS: 255 T: 57 INTERPRETIVE STATEMENTS: Electronic ventricular pacemaker Compared to ECG 01/24/2019 12:49:34 No significant changes Electronically Signed On 06-14-19 07:50:53 CDT by Emir Armstrong
== END 2019-06-13 17:15 | disposition short-term general hospital (02) ==
LOC: ER 11:54
DX: K85.90 Acute pancreatitis without necrosis or infection, unspecified (principal); E66.9 Obesity, unspecified; R10.819 Abdominal tenderness, unspecified site; E03.9 Hypothyroidism, unspecified; I10 Essential (primary) hypertension; E78.5 Hyperlipidemia, unspecified; E78.00 Pure hypercholesterolemia, unspecified; K21.9 Gastro-esophageal reflux disease without esophagitis; E11.9 Type 2 diabetes mellitus without complications; N18.9 Chronic kidney disease, unspecified; J44.9 Chronic obstructive pulmonary disease, unspecified; I48.91 Unspecified atrial fibrillation; I50.9 Heart failure, unspecified; Z88.2 Allergy status to sulfonamides; Z88.6 Allergy status to analgesic agent; Z88.8 Allergy status to other drugs, medicaments and biological substances
CPT/HCPCS: 96365; 96361; 93005; 87088; 85025; 87086; 80048; 36415; 83735; 85610; 80076; 81003; 84484; 83690; 83880; 74177; 71045; 96375; 99285; Q9967; J2550; J0500; J3010 ×3; J7030 ×2; J2405

== ENCOUNTER 2019-06-20 09:36 | Observation (INO) | payer OTHER, MEDICARE ==
--- OUTSIDE RECORDS SUMMARY | 2019-06-20 09:40 | XMS REPORT | Clinical Summary ---
:1935 Author Organization [facility] Address [address] [place] [address] Care Team Providers Name Role Phone Shelby Stock Primary Care Provider Mohinder Ritchie Unavailable Allergies [...] LEVOTHROID) 125 MCG MOUTH EVERY tablet MORNING. sertraline (ZOLOFT) 50 mg daily. 0 01/22/2018 [...] 6 (six) hours as needed for Pain. predniSONE Take 1 tablet (10 1 03/28/2018 Active (DELTASONE) 10 MG mg total) by tablet mouth daily. ROSALIO-24 200 mg 24 2 (two) times 3 02/05/2018 Active hr daily. capsuleIndications: Post-operative state acetic acid 0.25 % USE 1,000 MLS 0 04/08/2018 Active irrigation DIRECTED DAILY. traMADol (ULTRAM) Take 1 tablet (50 30 tablet 0 04/25/2018 Active 50 mg tablet mg total) by mouth every 8 (eight) hours as needed for Pain. Max Daily Amount: 150 mg gabapentin Take 600 mg by 1 06/07/2018 Active (NEURONTIN) 300 MG mouth 2 (two) capsule times daily. aspirin 81 MG EC Take 4 tablets 90 tablet 0 06/19/2019 09/17/20 Active tablet (325 mg total) by 19 mouth daily for 90 days. budesonide Take 2 mLs (0.5 120 mL 0 06/19/2019 07/19/20 Active (PULMICORT) 0.5 mg total) by 19 mg/2 mL nebulizer nebulization 2 solution (two) times daily for 30 days. carvedilol (COREG) Take 1 tablet (25 60 tablet 0 06/19/2019 07/19/20 Active 25 MG tablet mg total) by 19 mouth 2 (two) times daily for 30 days. furosemide (LASIX) Take 1 tablet (20 60 tablet 0 06/19/2019 07/19/20 Active 20 MG tablet mg total) by 19 mouth 2 (two) times daily for 30 days. hydrALAZINE Take 1 tablet (25 90 tablet 0 06/19/2019 07/19/20 Active (APRESOLINE) 25 MG mg total) by 19 tablet mouth every 8 (eight) hours for 30 days. losartan (COZAAR) Take 1 tablet 30 tablet 0 06/19/2019 07/19/20 Active 100 MG tablet (100 mg total) by 19 mouth daily for 30 days. losartan-hydroCHLOR TAKE ONE (1) 1 02/21/2018 06/19/20 Discontinued Othiazide (HYZAAR) TABLET(S) BY 19 100-25 mg per MOUTH ONCE A DAY. tablet polyethylene glycol Take 17 g by 14 each 0 03/29/2018 06/19/20 Discontinued (GLYCOLAX) 17 gram mouth daily Hold 19 packet for loose stool. senna-docusate Take 1 tablet by 0 03/28/2018 03/28/20 (SENOKOT S) 8.6-50 mouth nightly. 19 mg per tablet HYDROcodone-acetami Take 1 tablet by 30 tablet 0 03/28/2018 06/19/20 Discontinued nophen (NORCO mouth every 4 19 10-325) 10-325 mg (four) hours as per tablet needed for Pain. Max Daily Amount: 6 tablets clopidogrel Take 1 tablet (75 30 tablet 5 04/26/2018 04/26/20 (PLAVIX) 75 mg mg total) by 19 tablet mouth daily. hydrALAZINE Take 1 tablet (50 90 tablet 5 04/25/2018 04/25/20 (APRESOLINE) 50 MG mg total) by 19 tablet mouth every 8 (eight) hours. rOPINIRole (REQUIP) Take 1 tablet 30 tablet 1 04/25/2018 04/25/20 0.5 MG tablet (0.5 mg total) by 19 mouth nightly. ondansetron Take 4 mg by 0 04/27/2018 06/19/20 Discontinued (ZOFRAN-ODT) 4 MG mouth every 8 19 disintegrating (eight) hours. tablet aspirin 325 MG EC Take 325 mg by 0 06/19/20 Discontinued tablet mouth daily. 19 amLODIPine Take 1 tablet (5 30 tablet 0 06/19/2019 06/19/20 Discontinued (NORVASC) 5 MG mg total) by 19 tablet mouth nightly for 30 days. Active Problems Problem Noted Date Acute pancreatitis 06/13/2019 Wound infection after surgery 04/25/2018 Pseudomonas aeruginosa infection 04/25/2018 Klebsiella infection 04/25/2018 Femoral artery aneurysm, right 04/24/2018 Wound infection 04/19/2018 Leukocytosis 03/20/2018 DM (diabetes mellitus) type II, controlled, with peripheral vascular disorder Hypertension Hyperlipidemia Peripheral vascular disease Iliac artery occlusion, left COPD (chronic obstructive pulmonary disease) GERD (gastroesophageal reflux disease) Respiratory insufficiency Pacemaker Encounters Date Type Specialty Care Team Description 06/14/2019 Travel 06/13/2019 - Hospital Encounter Cardiology Rajan Chin Essential hypertension; 06/19/2019 MD Giselle Peripheral vascular disease (HCC) after 06/19/2018 Social History Tobacco Use Types Packs/Day Years [...] Vital Sign Reading Time Taken Blood Pressure 143/79 06/19/2019 7:35 AM CDT Pulse 70 06/19/2019 8:49 AM CDT Temperature 36.4 C (97.6 F) 06/19/2019 7:35 AM CDT Respiratory Rate 20 06/19/2019 8:49 AM CDT Oxygen Saturation 98% 06/19/2019 8:49 AM CDT Inhaled Oxygen Concentration 30% 06/18/2019 8:10 PM CDT Weight 90.8 kg (200 lb 3.2 oz) 06/19/2019 4:48 AM CDT Height 167.6 cm (5' 6") 06/13/2019 7:07 PM CDT Body Mass Index 32.31 06/19/2019 4:48 AM CDT Plan of Treatment Health Maintenance Due Date Last Done Comments HEMOGLOBIN A1C 12/13/2019 06/14/2019, 03/20/2018 Implants Implanted Type Area Business Management Consultant Device Shelf Model / Identifier Expiration Serial / Lot Date Grft Vasc Gelsft Plus [id number] - [id number] Graft/Pa N/A: TERUMO: VASCUTEK 11/07/2020 [id number] / Implanted: Qty: 1 on 03/18/2018 by Billy Mcmanus MD [facility] Silva [id number] / [id number] Procedures Procedure Name Priority Date/Time Associated Comments Diagnosis POCT-GLUCOSE METER Routine 06/19/2019 7:36 Results for this AM CDT procedure are in the results section. CBC W/PLT COUNT & AUTO Routine 06/19/2019 4:55 Results for this DIFFERENTIAL AM CDT procedure are in the results section. CBC W/PLT COUNT & AUTO Routine 06/19/2019 4:55 Results for this DIFFERENTIAL AM CDT procedure are in the results section. BASIC METABOLIC PANEL Routine 06/19/2019 4:55 Results for this (7) AM CDT procedure are in the results section. POCT-GLUCOSE METER Routine 06/18/2019 11:31 Results for this PM CDT procedure are in the results section. POCT-GLUCOSE METER Routine 06/18/2019 5:19 Results for this PM CDT procedure are in the results section. POCT-GLUCOSE METER Routine 06/18/2019 12:59 Results for this PM CDT procedure are in the results section. POCT-GLUCOSE METER Routine 06/18/2019 7:51 Results for this AM CDT procedure are in the results section. CBC W/PLT COUNT & AUTO Routine 06/18/2019 4:42 Results for this DIFFERENTIAL AM CDT procedure are in the results section. MAGNESIUM Routine 06/18/2019 4:42 Results for this AM CDT procedure are in the results section. CBC W/PLT COUNT & AUTO Routine 06/18/2019 4:42 Results for this DIFFERENTIAL AM CDT procedure are in the results section. BASIC METABOLIC PANEL Routine 06/18/2019 4:42 Results for this (7) AM CDT procedure are in the results section. POCT-GLUCOSE METER Routine 06/17/2019 11:35 Results for this PM CDT procedure are in the results section. POCT-GLUCOSE METER Routine 06/17/2019 5:13 Results for this PM CDT procedure are in the results section. POCT-GLUCOSE METER Routine 06/17/2019 9:02 Results for this AM CDT procedure are in the results section. CBC W/PLT COUNT & AUTO Routine 06/17/2019 6:24 Results for this DIFFERENTIAL AM CDT procedure are in the results section. LIPASE Routine 06/17/2019 6:24 Results for this AM CDT procedure are in the results section. MAGNESIUM Routine 06/17/2019 6:24 Results for this AM CDT procedure are in the results section. CBC W/PLT COUNT & AUTO Routine 06/17/2019 6:24 Results for this DIFFERENTIAL AM CDT procedure are in the results section. BASIC METABOLIC PANEL Routine 06/17/2019 6:24 Results for this (7) AM CDT procedure are in the results section. POCT-GLUCOSE METER Routine 06/16/2019 10:04 Results for this PM CDT procedure are in the results section. POCT-GLUCOSE METER Routine 06/16/2019 5:05 Results for this PM CDT procedure are in the results section. POCT-GLUCOSE METER Routine 06/16/2019 8:57 Results for this AM CDT procedure are in the results section. CBC W/PLT COUNT & AUTO Routine 06/16/2019 6:50 Results for this DIFFERENTIAL AM CDT procedure are in the results section. CBC W/PLT COUNT & AUTO Routine 06/16/2019 6:50 Results for this DIFFERENTIAL AM CDT procedure are in the results section. MAGNESIUM Routine 06/16/2019 5:26 Results for this AM CDT procedure are in the results section. LIPASE Routine 06/16/2019 5:26 Results for this AM CDT procedure are in the results section. HEPATIC FUNCTION PANEL Routine 06/16/2019 5:26 Results for this AM CDT procedure are in the results section. BASIC METABOLIC PANEL Routine 06/16/2019 5:26 Results for this (7) AM CDT procedure are in the results section. ECHOCARDIOGRAM REPORT - 06/15/2019 9:10 SCAN PM CDT POCT-GLUCOSE METER Routine 06/15/2019 8:42 Results for this PM CDT procedure are in the results section. POCT-GLUCOSE METER Routine 06/15/2019 5:42 Results for this PM CDT procedure are in the results section. POCT-GLUCOSE METER Routine 06/15/2019 12:26 Results for this PM CDT procedure are in the results section. POCT-GLUCOSE METER Routine 06/15/2019 7:23 Results for this AM CDT procedure are in the results section. CBC W/PLT COUNT & AUTO Routine 06/15/2019 4:09 Results for this DIFFERENTIAL AM CDT procedure are in the results section. LIPASE Routine 06/15/2019 4:09 Results for this AM CDT procedure are in the results section. CBC W/PLT COUNT & AUTO Routine 06/15/2019 4:09 Results for this DIFFERENTIAL AM CDT procedure are in the results section. HEPATIC FUNCTION PANEL Routine 06/15/2019 4:09 Results for this AM CDT procedure are in the results section. BASIC METABOLIC PANEL Routine 06/15/2019 4:09 Results for this (7) AM CDT procedure are in the results section. POCT-GLUCOSE METER Routine 06/14/2019 9:01 Results for this PM CDT procedure are in the results section. POCT-GLUCOSE METER Routine 06/14/2019 6:24 Results for this PM CDT procedure are in the results section. POCT-GLUCOSE METER Routine 06/14/2019 2:29 Results for this PM CDT procedure are in the results section. 2D ECHO W/ DOPPLER Routine 06/14/2019 1:58 Results for this (CW/PW/COLOR) PM CDT procedure are in the results section. POCT-GLUCOSE METER Routine 06/14/2019 12:21 Results for this PM CDT procedure are in the results section. XR CHEST 1 VIEW Routine 06/14/2019 9:42 Results for this PORTABLE/BEDSIDE AM CDT procedure are in the results section. POCT-GLUCOSE METER Routine 06/14/2019 6:18 Results for this AM CDT procedure are in the results section. CBC W/PLT COUNT & AUTO Routine 06/14/2019 4:26 Results for this DIFFERENTIAL AM CDT procedure are in the results section. B-TYPE NATRIURETIC Routine 06/14/2019 4:26 Results for this FACTOR (BNP) AM CDT procedure are in the results section. AMYLASE Routine 06/14/2019 4:26 Results for this AM CDT procedure are in the results section. LIPASE Routine 06/14/2019 4:26 Results for this AM CDT procedure are in the results section. CBC W/PLT COUNT & AUTO Routine 06/14/2019 4:26 Results for this DIFFERENTIAL AM CDT procedure are in the results section. LIPID PANEL Routine 06/14/2019 4:26 Results for this AM CDT procedure are in the results section. PROTHROMBIN TIME/INR Routine 06/14/2019 4:26 Results for this AM CDT procedure are in the results section. HEMOGLOBIN A1C Routine 06/14/2019 4:26 Results for this AM CDT procedure are in the results section. HEPATIC FUNCTION PANEL Routine 06/14/2019 4:26 Results for this AM CDT procedure are in the results section. BASIC METABOLIC PANEL Routine 06/14/2019 4:26 Results for this (7) AM CDT procedure are in the results section. POCT-GLUCOSE METER Routine 06/14/2019 12:37 Results for this AM CDT procedure are in the results section. POCT-LACTIC ACID, Routine 06/13/2019 11:56 Results for this ARTERIAL PM CDT procedure are in the results section. POCT-HEMOGLOBIN Routine 06/13/2019 11:51 Results for this PM CDT procedure are in the results section. POCT-HEMATOCRIT Routine 06/13/2019 11:51 Results for this PM CDT procedure are in the results section. POCT-CALCIUM IONIZED Routine 06/13/2019 11:51 Results for this PM CDT procedure are in the results section. POCT-GLUCOSE Routine 06/13/2019 11:51 Results for this PM CDT procedure are in the results section. POCT-POTASSIUM Routine 06/13/2019 11:51 Results for this PM CDT procedure are in the results section. POCT-SODIUM Routine 06/13/2019 11:51 Results for this PM CDT procedure are in the results section. POCT-BLOOD GASES, Routine 06/13/2019 11:51 Results for this ARTERIAL PM CDT procedure are in the results section. POCT-GLUCOSE METER Routine 06/13/2019 8:39 Results for this PM CDT procedure are in the results section. ARRYTHMIA IMPLANT 03/14/2019 8:40 REPORT - SCAN AM CDT ARRYTHMIA IMPLANT 03/14/2019 8:40 REPORT - SCAN AM CDT RHYTHM STRIP - SCAN 01/17/2019 2:21 PM CDT after 06/19/2018 Results POC-Glucose meter (06/19/2019 7:36 AM CDT)Only the most recent of22 resultswithin the time period is included. POC-Glucose Meter 131 (H)Comment: TESTED AT 70 - 110 mg/dL [facility] [address] [facility] [id number] Specimen Blood Performing Organization Address City/State/Zipcode Phone Number [address] [phone] CENTER CBC with platelet count + automated diff (06/19/2019 4:55 AM CDT)Only the most recent of6 resultswithin the time period is included. WBC 8.4 3.5 - 10.5 K/L [facility] RBC 4.99 3.93 - 5.22 M/L [facility] Hemoglobin 14.7 11.2 - 15.7 GM/DL [facility] Hematocrit 48.2 (H) 34.1 - 44.9 % [facility] MCV 96.6 (H) 79.4 - 94.8 fL [facility] MCH 29.5 25.6 - 32.2 pg [facility] MCHC 30.5 (L) 32.2 - 35.5 GM/DL [facility] RDW 13.2 11.7 - 14.4 % [facility] Platelets 223 150 - 450 K/CU MM [facility] MPV 11.7 9.4 - 12.3 fL [facility] nRBC 0 0 - 0 /100 WBC [facility] % Neutros 74 % [facility] % Lymphs 14 % [facility] % Monos 8 % [facility] % Eos 3 % [facility] % Baso 1 % [facility] # Neutros 6.23 (H) 1.56 - 6.13 K/L [facility] # Lymphs 1.21 1.18 - 3.74 K/L [facility] # Monos 0.68 (H) 0.24 - 0.36 K/L [facility] # Eos 0.21 0.04 - 0.36 K/L [facility] # Baso 0.07 0.01 - 0.08 K/L [facility] Immature Granulocytes-Relative 1 0 - 1 % [facility] Specimen Blood Performing Organization Address City/State/Zipcode Phone Number [facility] [address] [place] [address] [phone] CENTER Basic metabolic panel (06/19/2019 4:55 AM CDT)Only the most recent of6 resultswithin the time period is included. Sodium 144 136 - 145 meq/L [facility] Potassium 4.0 3.5 - 5.1 meq/L [facility] Chloride 102 98 - 107 meq/L [facility] CO2 36 (H) 22 - 29 meq/L [facility] BUN 18 7 - 21 mg/dL [facility] Creatinine 0.90 0.57 - 1.25 mg/dL [facility] Glucose 106 (H) 70 - 105 mg/dL [facility] Calcium 9.4 8.4 - 10.2 mg/dL [facility] EGFR 60Comment: ESTIMATED GFR IS mL/min/1.73 sq m [facility] NOT ACCURATE [facility] CLEARANCE IN PREDICTING GLOMERULAR FILTRATION RATE. ESTIMATED GFR IS NOT APPLICABLE FOR DIALYSIS PATIENTS. Specimen Blood Performing Organization Address City/[facility] Phone Number [address] [phone] [place] Magnesium (06/18/2019 4:42 AM CDT)Only the most recent of3 resultswithin the time period is included. Magnesium 1.9 1.6 - 2.6 mg/dL [facility] Specimen Blood Performing Organization Address City/[facility] Phone Number [address] [phone] [place] Lipase (06/17/2019 6:24 AM CDT)Only the most recent of4 resultswithin the time period is included. Lipase 101 (H) 8 - 78 U/L [facility] Specimen Blood Performing Organization Address [facility] Phone Number [address] [phone] [place] Hepatic function panel (06/16/2019 5:26 AM CDT)Only the most recent of3 resultswithin the time period is included. Protein, Total 6.9Comment: Specimen 6.0 - 8.3 gm/dL [facility] slightly hemolyzed [facility] Albumin 3.4 (L)Comment: Specimen 3.5 - 5.0 g/dL [facility] hemolyzed [facility] Total Bilirubin 0.8Comment: Specimen 0.2 - 1.2 mg/dL [facility] hemolyzed [facility] Bilirubin, Direct 0.3Comment: Specimen 0.1 - 0.5 mg/dL [facility] hemolyzed [facility] Alkaline Phosphatase 33 (L) 40 - 150 U/L [facility] AST 32Comment: Specimen 5 - 34 U/L [facility] slightly hemolyzed [facility] ALT 17Comment: Specimen 6 - 55 U/L [facility] hemolyzed [facility] Specimen Blood Performing Organization Address City/State/Zipcode Phone Number [facility] [address] [place] [address] [phone] CENTER ECHOCARDIOGRAM REPORT - SCAN (06/15/2019 9:10 PM CDT) Narrative Performed At 2D Echo W/Doppler(CW/PW/Color) (06/14/2019 1:58 PM CDT) Ejection Fraction [facility] Specimen Narrative Performed At Transthoracic Echocardiography Report (TTE) [facility] Demographics Patient Name EDDIE RICKS Date of Study 06/14/2019 [facility] [id number] GenderFemale Visit Number [id number] Room Number 1614 Number Date of Birth1935Referring Physician Rajan Chin Age83 year(s)Rn Transplant TYLER Mccloud AnalystIzoDonte Anglin MD Procedure Type of Study TTE procedure:2DECHO W DOPPLER(CW/PW/COLOR) (Routine) Indications:Evaluation of suspected pulmonary hypertension. Clinical History COPD, DM2, GOLDBERG, HLD, HTN, Hypothyroidism, PVD, SOB PPM, PCI 03/25 Aorto-femoral bypass HGB 16.7 HCT 55.2 % Height: 66 inches Weight: 86.64 kg (191 lbs) BSA: 1.96 m^2 BMI: 30.83 kg/m^2 HR: 70 bpm BP: 142/66 mmHg Summary 1. Normal LV size. All of the LV segments contract normally. Estimated LVEF is normal (>60%) 2. RV is mildly enlarged. Normal RV function 3. Grade 3 diastolic dysfunction (marked elevated LA pressure). 4. Estimated peak systolic PA pressure is 50-55 mmHg 5. Mild aortic stenosis Previous Study No prior exam available for comparison. Signature Findings Left Ventricle The left ventricle is chamber size (by PSLAX di mension) is normal (female - LVIDd 3.8-5.2cm) . Mi gm-ne-qowskaiy concentric LV hypertrophy. All of th e LV segments contract normally . Global LV sy stolic function normal . Estimated LVEF by qu alitative assessment is normal (>60%) . Grade 3 di astolic dysfunction (marked elevated LA pr essure). Left AtriumLA size is severely enlarged (>48 ml/m2) . Right VentricleRV pacing wire is visualized . RV chamber size is mildly enlarged . Gl obal RV systolic function is normal . Right Atrium RA pacing wire is visualized . RA cavity size is mildly enlarged . Aortic Valve Mild AoV cusp calcification. Ao V cusp mobility is mildly decreased . Mi ld aortic stenosis. Ao V area at rest by continuity equation is in the ra nge of 1.89 cm2. Mitral Valve Mild mitral annular calcification. Mi ld MV leaflet calcification. Tricuspid ValveMild tricuspid regurgitation. Es timated peak systolic PA pressure is 50-55 mmHg . Pulmonic Valve Mild pulmonary regurgitation. No rmal PV structure and function by limited views an d Doppler. AortaAortic root size (SInus of Valsalva diameter) is no rmal . Proximal ascending aorta size is normal . PericardiumNo significant pericardial effusion is visualized. IVC/SVC/PA/PV/PleuralPulmonary vein flow is consistent with increased LA P . Th e estimated RA pressure by IVC dynamics 5-10mmHg . Chambers/Structures Left Atrium LA Volume: 99.47 ml LA Area: 30.47 cm^2 LA Vol. Index: 51 ml/m^2 Left Ventricle LVIDd: 4.35 cm LV Septum Diastolic: 1.62 cm LV PW Diastolic: 1.53 cm LVOT Diameter: 1.96 cm Right Atrium RA Area: 23.68 cm^2 RA Vol. (Sngl Plane): 65.6 ml Right Ventricle RV Diast Dim.: 2.85 cm TAPS E: 1.79 cm Aorta Ao Root S of Melissa.: 3.17 cmAscending Aorta: 3.12 cm Doppler/Quantitative Measurements Mitral Valve MV Peak E-Wave: 0.85 m/sMV Peak A-Wave: 0.19 m/s E/A Ratio: 4.45 Peak Gradient: 2.88 mmHg Deceleration Time: 181.1 msec MV Biju. Peak: Tissue Doppler E' Septal Velocity: 0.06 m/sE/E': 15.23 E' Lateral Velocity: 0.07 m/s Aortic Valve Peak Velocity: 2.12 m/sMean Velocity: 1.27 m/s Peak Gradient: 17.89 mmHgMean Gradient: 7.81 mmHg AV Area (continuity): 1.89 cm^2 AV VTI: 32.38 cm AV DVI: 0.63 LVOT Peak Velocity: 1.1 m/sPeak Gradient: 4.82 mmHg Mean Velocity: 0.77 m/s Mean Gradient: 2.72 mmHg LVOT Diameter: 1.96 cmLVOT VTI: 20.3 cm LVOT Area: 3.02 cm^2LVOT SV:61.22 ml LVOT CO: 4.29 l/min LVOT CI: 2.19 l/min/m^2 Tricuspid Valve TR Velocity: 3.25 m/s TR Gradient: 42.14 mmHg Procedure Note Interface, External Ris In - 06/15/2019 3:09 PM CDT Transthoracic Echocardiography Report (TTE) Demographics Patient Name RICKS, EDDIE Date of Study 06/14/2019 [facility] Gender Female Visit Number [id number] Race Room Number 1614 Number Date of 1935 Referring Physician Rajan Chin Age 83 year(s) Rn Transplant Elise Parra, [facility] [employer] Superintendent Tino Gerber Interpreting Donte Johnson Physician Procedure Type of Study TTE procedure:2DECHO W DOPPLER(CW/PW/COLOR) (Routine) Indications:Evaluation of suspected pulmonary hypertension. Clinical History COPD, DM2, GOLDBERG, HLD, HTN, Hypothyroidism, PVD, SOB PPM, PCI 03/25 Aorto-femoral bypass HGB 16.7 HCT 55.2 % Height: 66 inches Weight: 86.64 kg (191 lbs) BSA: 1.96 m^2 BMI: 30.83 kg/m^2 HR: 70 bpm BP: 142/66 mmHg Summary 1. Normal LV size. All of the LV segments contract normally. Estimated LVEF is normal (>60%) 2. RV is mildly enlarged. Normal RV function 3. Grade 3 diastolic dysfunction (marked elevated LA pressure). 4. Estimated peak systolic PA pressure is 50-55 mmHg 5. Mild aortic stenosis Previous Study No prior exam available for comparison. Signature Findings Left Ventricle The left ventricle is chamber size (by PSLAX dimension) is normal (female - LVIDd 3.8-5.2cm) . Aago-km-nstzthsn concentric LV hypertrophy. All of the LV segments contract normally . Global LV systolic function normal . Estimated LVEF by qualitative assessment is normal (>60%) . Grade 3 diastolic dysfunction (marked elevated LA pressure). Left Atrium LA size is severely enlarged (>48 ml/m2) . Right Ventricle RV pacing wire is visualized . RV chamber size is mildly enlarged . Global RV systolic function is normal . Right Atrium RA pacing wire is visualized . RA cavity size is mildly enlarged . Aortic Valve Mild AoV cusp calcification. AoV cusp mobility is mildly decreased . Mild aortic stenosis. AoV area at rest by continuity equation is in the range of 1.89 cm2. Mitral Valve Mild mitral annular calcification. Mild MV leaflet calcification. Tricuspid Valve Mild tricuspid regurgitation. Estimated peak systolic PA pressure is 50-55 mmHg . Pulmonic Valve Mild pulmonary regurgitation. Normal PV structure and function by limited views and Doppler. Aorta Aortic root size (SInus of Valsalva diameter) is normal . Proximal ascending aorta size is normal . Pericardium No significant pericardial effusion is visualized. IVC/SVC/PA/PV/Pleural Pulmonary vein flow is consistent with increased LAP . The estimated RA pressure by IVC dynamics 5-10mmHg . Chambers/Structures Left Atrium LA Volume: 99.47 ml LA Area: 30.47 cm^2 LA Vol. Index: 51 ml/m^2 Left Ventricle LVIDd: 4.35 cm LV Septum Diastolic: 1.62 cm LV PW Diastolic: 1.53 cm LVOT Diameter: 1.96 cm Right Atrium RA Area: 23.68 cm^2 RA Vol. (Sngl Plane): 65.6 ml Right Ventricle RV Diast Dim.: 2.85 cm TAPSE: 1.79 cm Aorta Ao Root S of Melissa.: 3.17 cm Ascending Aorta: 3.12 cm Doppler/Quantitative Measurements Mitral Valve MV Peak E-Wave: 0.85 m/s MV Peak A-Wave: 0.19 m/s E/A Ratio: 4.45 Peak Gradient: 2.88 mmHg Deceleration Time: 181.1 msec MV Biju. Peak: Tissue Doppler E' Septal Velocity: 0.06 m/s E/E': 15.23 E' Lateral Velocity: 0.07 m/s Aortic Valve Peak Velocity: 2.12 m/s Mean Velocity: 1.27 m/s Peak Gradient: 17.89 mmHg Mean Gradient: 7.81 mmHg AV Area (continuity): 1.89 cm^2 AV VTI: 32.38 cm AV DVI: 0.63 LVOT Peak Velocity: 1.1 m/s Peak Gradient: 4.82 mmHg Mean Velocity: 0.77 m/s Mean Gradient: 2.72 mmHg LVOT Diameter: 1.96 cm LVOT VTI: 20.3 cm LVOT Area: 3.02 cm^2 LVOT SV:61.22 ml LVOT CO: 4.29 l/min LVOT CI: 2.19 l/min/m^2 Tricuspid Valve TR Velocity: 3.25 m/s TR Gradient: 42.14 mmHg Performing Organization Address [facility] Phone Number [facility] ECHO HEARTLAB MKCKESSON CPACS XR chest 1 view portable / bedside (06/14/2019 9:42 AM CDT) Specimen Narrative Performed At FINAL REPORT [facility] RAD, CHEST, 1 VIEW, NON DEPT INDICATION: copd COMPARISON: March 21, 2018 FINDINGS: Portable frontal view of the chest. IMPRESSION: Support Lines: None. Lungs and pleura: Clear lungs. No pneumothorax. Heart and mediastinum: Stable contours. Stable pacer apparatus. Additional findings: None. Signed: JR Jerome Robert MD Report Verified Date/Time:06/14/2019 09:58:25 Reading Location: [address] Neuro Reading Room Procedure Note Interface, External Ris In - 06/14/2019 10:00 AM CDT FINAL REPORT RAD, CHEST, 1 VIEW, NON DEPT INDICATION: copd COMPARISON: March 21, 2018 FINDINGS: Portable frontal view of the chest. IMPRESSION: Support Lines: None. Lungs and pleura: Clear lungs. No pneumothorax. Heart and mediastinum: Stable contours. Stable pacer apparatus. Additional findings: None. Signed: JR Jerome Robert MD Report Verified Date/Time: 06/14/2019 09:58:25 Reading Location: [facility] C013 Neuro Reading Room Performing Organization Address [facility] Phone Number [facility] Prothrombin time/INR (06/14/2019 4:26 AM CDT) Protime 13.6 11.9 - 14.2 seconds [facility] INR 1.1 <=5.9 [facility] Specimen Blood Narrative Performed At Effective 03/05/2019: PT Reference Range [facility] Change New: 11.9-14.2Previous: 11.7-14.7 RECOMMENDED COUMADIN/WARFARIN INR THERAPY RANGES STANDARD DOSE: 2.0-3.0Includes: PROPHYLAXIS for venous thrombosis, systemic embolization; TREATMENT for venous thrombosis and/or pulmonary embolus. HIGH RISK: Target INR is 2.5-3.5 for patients wiht mechanical heart valves. Performing Organization Address [facility]/State/[facility] Phone Number [address] [address] CENTER B-type Natriuretic Factor (BNP) (06/14/2019 4:26 AM CDT) BNP 376 (H) 0 - 100 pg/mL [facility] Specimen Blood Performing Organization Address City/[facility] Phone Number [address] [address] [phone] CENTER Hemoglobin A1c (06/14/2019 4:26 AM CDT) Hemoglobin A1C 7.1 (H) 4.3 - 6.1 % [facility] Specimen Blood Performing Organization Address City/[facility] Phone Number [address] [address] CENTER Amylase (06/14/2019 4:26 AM CDT) Amylase 368 (H) 25 - 125 U/L [facility] Specimen Blood Performing Organization Address [facility] Phone Number [address] [address] CENTER Lipid panel (06/14/2019 4:26 AM CDT) Triglycerides 59 mg/dL [facility] Cholesterol 134 mg/dL [facility] HDL 50 mg/dL [facility] LDL Calculated 72 mg/dL [facility] Specimen Blood Narrative Performed At Triglyceride Reference Range: [facility] Low Risk <150 [id number] High Risk 200-499 Very High Risk>=500 Cholesterol Reference Range: Low Risk <200 [id number] High Risk>240 HDL Cholesterol Reference Range: Low Risk >=60 High Risk <40 LDL Cholesterol Reference Range: Optimal<100 Near [id number] Very High >=190 Performing Organization Address [facility] Phone Number [address] [phone] [place] POC-Lactic Acid, Arterial (06/13/2019 11:56 PM CDT) POC-Lactic Acid, 0.7Comment: TESTED AT 0.4 - 1.3 mmol/L [facility] Arterial [address] [address] Specimen Blood Performing Organization Address [facility] Phone Number [address] [address] [place] POCT-HEMATOCRIT (06/13/2019 11:51 PM CDT) POC-Hematocrit 50 (H)Comment: TESTED AT 36 - 45 % [address] [address] Specimen Blood Performing Organization Address [facility] Phone Number [address] [phone] [place] POCT-HEMOGLOBIN (06/13/2019 11:51 PM CDT) POC-Hemoglobin 17.0 (H)Comment: TESTED AT 12.0 - 15.0 g/dL [address] [address]RWXJWP AT [address] [address] Specimen Blood Performing Organization Address [facility] Phone Number [address] [address] [phone] [place] POCT-GLUCOSE (06/13/2019 11:51 PM CDT) POC-Glucose 80Comment: TESTED AT [facility] 70 - 110 mg/dL [address] [address] Specimen Blood Performing Organization Address [facility] Phone Number [address] [phone] [place] POC-Sodium (06/13/2019 11:51 PM CDT) POC-Sodium 142Comment: TESTED AT [facility] 135 - 148 meq/L [address] [address] Specimen Blood Performing Organization Address [facility] Phone Number [address] [address] [phone] [place] POC-Potassium (06/13/2019 11:51 PM CDT) POC-Potassium 3.5 (L)Comment: TESTED AT 3.6 - 5.5 meq/L [address] [address] Specimen Blood Performing Organization Address [facility] Phone Number [address] [address] [phone] [place] POC-Calcium ionized (06/13/2019 11:51 PM CDT) POC-Calcium Ionized 1.17Comment: TESTED AT 1.12 - 1.27 mmol/L [address] [address] Specimen Blood Performing Organization Address [facility] Phone Number [address] [address] [phone] [place] POC-Blood gases, arterial (06/13/2019 11:51 PM CDT) Temp. Celsius-POC 37.4 [facility] FIO2-POC 28Comment: TESTED AT [address] [address] pH, Arterial-POC 7.376 7.350 - 7.450 [facility] PCO2, Arterial-POC 56.3 (H) 35.0 - 45.0 mm Hg [facility] PO2, Arterial-POC 62.0 (L) 80.0 - 90.0 mm Hg [facility] SO2, Arterial-POC 90.0 (L) 96.0 - 97.0 % [facility] HCO3, Arterilal-POC 32.8 (H) 21.0 - 29.0 meq/L [facility] BE, Arterial-POC 8.0 (H) -2.0 - 3.0 meq/L [facility] Specimen Blood Performing Organization Address City/State/Zipcode Phone Number [facility] [address] [place] [phone] CENTER ARRYTHMIA IMPLANT REPORT - SCAN (03/14/2019 8:40 AM CDT)Only the most recent of2 resultswithin the time period is included. Narrative Performed At RHYTHM STRIP - SCAN (01/17/2019 2:21 PM CDT) Narrative Performed At after 06/19/2018 Insurance Payer Benefit Plan / Group Subscriber ID Type Phone Address MEDICARE MEDICARE A B xxxxxxxxxx Medicare MCR SUPPLEMENT/INDIVIDUAL AARP/[facility] xxxxxxxxxxx [facility] ([place] [place] [address] Advance Directives For more information, please contact:[place] [address] [address] MarcosAnderson, [place] [phone] Code Status Date Activated Date Inactivated Comments Full Code 06/13/2019 8:25 PM 06/19/2019 11:57 AM This code status was determined by: Patient Full Code 04/21/2018 6:51 PM 04/25/2018 7:56 PM This code status was determined by: Patient Full Code 03/18/2018 5:47 AM 03/28/2018 6:27 PM This code status was determined by: Patient
--- OUTSIDE RECORDS SUMMARY | 2019-06-20 09:44 | XMS REPORT ---
:1935 [facility] Address [address] [place] [address] [address] [place] [address] Care Team Providers Name Role Phone KEILA JAMESDuglas Unavailable Unavailable GABRIEL VARGAS Unavailable Unavailable BILLY MCMANUS Unavailable Unavailable Problems This patient has no known problems. Allergies, Adverse Reactions, Alerts This patient has no known allergies or adverse reactions. Medications This patient has no known medications. Results Test Description Test Time Test Comments Text Results Atomic Results Result Comments POCT-GLUCOSE METER 2019-06-19 07:53:00 Test Item Value Reference Range Comments POC-GLUCOSE METER (BEAKER) (test 131 mg/dL 70-110 TESTED AT [facility] [address] [facility] qrzk=0236) [facility] [address] BASIC METABOLIC [id number] 06:08:00 Test Item Value Reference Range Comments SODIUM (BEAKER) (test 144 meq/L 136-145 jqkj=912) POTASSIUM (BEAKER) (test 4.0 meq/L 3.5-5.1 wuod=385) CHLORIDE (BEAKER) (test 102 meq/L 98-107 hugk=644) CO2 (BEAKER) (test 36 meq/L 22-29 tywb=770) BLOOD UREA NITROGEN 18 mg/dL 7-21 (BEAKER) (test eftc=799) CREATININE (BEAKER) (test 0.90 mg/dL 0.57-1.25 fhdw=389) GLUCOSE RANDOM (BEAKER) 106 mg/dL 70-105 (test gfla=497) CALCIUM (BEAKER) (test 9.4 mg/dL 8.4-10.2 skqt=987) EGFR (BEAKER) (test 60 mL/min/1.73 sq m ESTIMATED GFR IS NOT voye=3080) ACCURATE CREATININE CLEARANCE IN PREDICTING GLOMERULAR FILTRATION RATE. ESTIMATED GFR IS NOT APPLICABLE FOR DIALYSIS PATIENTS. CBC W/PLT COUNT & AUTO [id number] 05:33:00 Test Item Value Reference Range Comments WHITE BLOOD CELL COUNT (BEAKER) (test jzau=496) 8.4 K/ L 3.5-10.5 RED BLOOD CELL COUNT (BEAKER) (test gtqb=143) 4.99 M/ L 3.93-5.22 HEMOGLOBIN (BEAKER) (test cpxo=884) 14.7 GM/DL 11.2-15.7 HEMATOCRIT (BEAKER) (test omsj=166) 48.2 % 34.1-44.9 MEAN CORPUSCULAR VOLUME (BEAKER) (test knfb=675) 96.6 fL 79.4-94.8 MEAN CORPUSCULAR HEMOGLOBIN (BEAKER) (test 29.5 pg 25.6-32.2 azhz=729) MEAN CORPUSCULAR HEMOGLOBIN CONC (BEAKER) (test 30.5 GM/DL 32.2-35.5 wcnu=706) RED CELL DISTRIBUTION WIDTH (BEAKER) (test 13.2 % 11.7-14.4 plom=016) PLATELET COUNT (BEAKER) (test rlbu=708) 223 K/CU MM 150-450 MEAN PLATELET VOLUME (BEAKER) (test hcnn=747) 11.7 fL 9.4-12.3 NUCLEATED RED BLOOD CELLS (BEAKER) (test 0 /100 WBC 0-0 mdba=990) NEUTROPHILS RELATIVE PERCENT (BEAKER) (test 74 % jpts=525) LYMPHOCYTES RELATIVE PERCENT (BEAKER) (test 14 % ogqz=052) MONOCYTES RELATIVE PERCENT (BEAKER) (test 8 % kqvy=015) EOSINOPHILS RELATIVE PERCENT (BEAKER) (test 3 % yaop=101) BASOPHILS RELATIVE PERCENT (BEAKER) (test 1 % isqe=355) NEUTROPHILS ABSOLUTE COUNT (BEAKER) (test 6.23 K/ L 1.56-6.13 qhpi=689) LYMPHOCYTES ABSOLUTE COUNT (BEAKER) (test 1.21 K/ L 1.18-3.74 newr=213) MONOCYTES ABSOLUTE COUNT (BEAKER) (test 0.68 K/ L 0.24-0.36 ynhq=613) EOSINOPHILS ABSOLUTE COUNT (BEAKER) (test 0.21 K/ L 0.04-0.36 khek=696) BASOPHILS ABSOLUTE COUNT (BEAKER) (test 0.07 K/ L 0.01-0.08 oxqz=123) IMMATURE GRANULOCYTES-RELATIVE PERCENT (BEAKER) 1 % 0-1 (test uago=9089) POCT-GLUCOSE [id number] 02:04:00 Test Item Value Reference Range Comments POC-GLUCOSE METER (BEAKER) 143 mg/dL 70-110 TESTED AT [address] (test vlgi=9886) [facility] [address] POCT-GLUCOSE [id number] 17:20:00 Test Item Value Reference Range Comments POC-GLUCOSE METER (BEAKER) 148 mg/dL 70-110 TESTED AT [address] (test bphz=1680) [facility] [address] POCT-GLUCOSE [id number] 13:03:00 Test Item Value Reference Range Comments POC-GLUCOSE METER (BEAKER) 179 mg/dL 70-110 TESTED AT [address] (test bzit=0337) [facility] [address] POCT-GLUCOSE [id number] 08:04:00 Test Item Value Reference Range Comments POC-GLUCOSE METER (BEAKER) 82 mg/dL 70-110 TESTED AT [address] (test jdqe=2637) [facility] [address] [id number] 06:10:00 Test Item Value Reference Range Comments MAGNESIUM (BEAKER) (test ajfe=878) 1.9 mg/dL 1.6-2.6 BASIC METABOLIC [id number] 06:10:00 Test Item Value Reference Range Comments SODIUM (BEAKER) (test 142 meq/L 136-145 bpuy=343) POTASSIUM (BEAKER) (test 4.1 meq/L 3.5-5.1 jalx=314) CHLORIDE (BEAKER) (test 104 meq/L 98-107 uxih=141) CO2 (BEAKER) (test 32 meq/L 22-29 jgnt=997) BLOOD UREA NITROGEN 28 mg/dL 7-21 (BEAKER) (test uqfb=320) CREATININE (BEAKER) (test 0.91 mg/dL 0.57-1.25 xtbw=408) GLUCOSE RANDOM (BEAKER) 96 mg/dL 70-105 (test kqzm=307) CALCIUM (BEAKER) (test 9.4 mg/dL 8.4-10.2 zqhv=788) EGFR (BEAKER) (test 59 mL/min/1.73 sq m ESTIMATED GFR IS NOT vzkt=7451) ACCURATE CREATININE CLEARANCE IN PREDICTING GLOMERULAR FILTRATION RATE. ESTIMATED GFR IS NOT APPLICABLE FOR DIALYSIS PATIENTS. CBC W/PLT COUNT & AUTO [id number] 05:25:00 Test Item Value Reference Range Comments WHITE BLOOD CELL COUNT (BEAKER) (test llii=830) 7.0 K/ L 3.5-10.5 RED BLOOD CELL COUNT (BEAKER) (test zzpf=501) 4.68 M/ L 3.93-5.22 HEMOGLOBIN (BEAKER) (test grfe=458) 14.1 GM/DL 11.2-15.7 HEMATOCRIT (BEAKER) (test yvzv=623) 45.7 % 34.1-44.9 MEAN CORPUSCULAR VOLUME (BEAKER) (test yqcn=947) 97.6 fL 79.4-94.8 MEAN CORPUSCULAR HEMOGLOBIN (BEAKER) (test 30.1 pg 25.6-32.2 adiz=971) MEAN CORPUSCULAR HEMOGLOBIN CONC (BEAKER) (test 30.9 GM/DL 32.2-35.5 epus=557) RED CELL DISTRIBUTION WIDTH (BEAKER) (test 13.4 % 11.7-14.4 ulea=102) PLATELET COUNT (BEAKER) (test oqiw=443) 217 K/CU MM 150-450 MEAN PLATELET VOLUME (BEAKER) (test kucn=753) 11.4 fL 9.4-12.3 NUCLEATED RED BLOOD CELLS (BEAKER) (test 0 /100 WBC 0-0 jkyf=679) NEUTROPHILS RELATIVE PERCENT (BEAKER) (test 71 % wotl=473) LYMPHOCYTES RELATIVE PERCENT (BEAKER) (test 17 % mviu=709) MONOCYTES RELATIVE PERCENT (BEAKER) (test 8 % zcbp=243) EOSINOPHILS RELATIVE PERCENT (BEAKER) (test 2 % eycr=446) BASOPHILS RELATIVE PERCENT (BEAKER) (test 1 % usbs=503) NEUTROPHILS ABSOLUTE COUNT (BEAKER) (test 4.97 K/ L 1.56-6.13 fqjq=439) LYMPHOCYTES ABSOLUTE COUNT (BEAKER) (test 1.17 K/ L 1.18-3.74 hfta=369) MONOCYTES ABSOLUTE COUNT (BEAKER) (test 0.57 K/ L 0.24-0.36 sydn=559) EOSINOPHILS ABSOLUTE COUNT (BEAKER) (test 0.17 K/ L 0.04-0.36 sgac=161) BASOPHILS ABSOLUTE COUNT (BEAKER) (test 0.06 K/ L 0.01-0.08 ykxc=026) IMMATURE GRANULOCYTES-RELATIVE PERCENT (BEAKER) 0 % 0-1 (test rrpu=4068) POCT-GLUCOSE [id number] 00:02:00 Test Item Value Reference Range Comments POC-GLUCOSE METER (BEAKER) 191 mg/dL 70-110 TESTED AT [place] [id number] [facility] (test cfeo=5807) [facility] [address] POCT-GLUCOSE [id number] 17:16:00 Test Item Value Reference Range Comments POC-GLUCOSE METER (BEAKER) 170 mg/dL 70-110 TESTED AT [address] (test alsj=1091) [place] [id number] POCT-GLUCOSE [id number] 09:03:00 Test Item Value Reference Range Comments POC-GLUCOSE METER (BEAKER) 97 mg/dL 70-110 TESTED AT [address] (test gmrc=0908) [place] [address] [id number] 07:03:00 Test Item Value Reference Range Comments MAGNESIUM (BEAKER) (test lzkf=419) 1.9 mg/dL 1.6-2.6 BASIC METABOLIC [id number] 07:03:00 Test Item Value Reference Range Comments SODIUM (BEAKER) (test 141 meq/L 136-145 usru=639) POTASSIUM (BEAKER) (test 4.0 meq/L 3.5-5.1 lrgj=563) CHLORIDE (BEAKER) (test 104 meq/L 98-107 gsot=642) CO2 (BEAKER) (test 30 meq/L 22-29 deja=328) BLOOD UREA NITROGEN 23 mg/dL 7-21 (BEAKER) (test xvxz=359) CREATININE (BEAKER) (test 0.99 mg/dL 0.57-1.25 aosm=633) GLUCOSE RANDOM (BEAKER) 93 mg/dL 70-105 (test rjur=160) CALCIUM (BEAKER) (test 9.3 mg/dL 8.4-10.2 vnll=969) EGFR (BEAKER) (test 53 mL/min/1.73 sq m ESTIMATED GFR IS NOT rezy=4714) ACCURATE CREATININE CLEARANCE IN PREDICTING GLOMERULAR FILTRATION RATE. ESTIMATED GFR IS NOT APPLICABLE FOR DIALYSIS PATIENTS. [id number] 07:03:00 Test Item Value Reference Range Comments LIPASE (BEAKER) (test wdcs=166) 101 U/L 8-78 CBC W/PLT COUNT & AUTO [id number] 06:46:00 Test Item Value Reference Range Comments WHITE BLOOD CELL COUNT (BEAKER) (test olpr=133) 8.3 K/ L 3.5-10.5 RED BLOOD CELL COUNT (BEAKER) (test zclg=316) 4.88 M/ L 3.93-5.22 HEMOGLOBIN (BEAKER) (test qwff=081) 14.3 GM/DL 11.2-15.7 HEMATOCRIT (BEAKER) (test dbzu=424) 47.6 % 34.1-44.9 MEAN CORPUSCULAR VOLUME (BEAKER) (test lgbi=546) 97.5 fL 79.4-94.8 MEAN CORPUSCULAR HEMOGLOBIN (BEAKER) (test 29.3 pg 25.6-32.2 viis=005) MEAN CORPUSCULAR HEMOGLOBIN CONC (BEAKER) (test 30.0 GM/DL 32.2-35.5 hixr=608) RED CELL DISTRIBUTION WIDTH (BEAKER) (test 13.2 % 11.7-14.4 zjqf=803) PLATELET COUNT (BEAKER) (test phzd=299) 216 K/CU MM 150-450 MEAN PLATELET VOLUME (BEAKER) (test zqqn=774) 11.3 fL 9.4-12.3 NUCLEATED RED BLOOD CELLS (BEAKER) (test 0 /100 WBC 0-0 admd=357) NEUTROPHILS RELATIVE PERCENT (BEAKER) (test 76 % kbdl=604) LYMPHOCYTES RELATIVE PERCENT (BEAKER) (test 13 % eosp=654) MONOCYTES RELATIVE PERCENT (BEAKER) (test 7 % riss=927) EOSINOPHILS RELATIVE PERCENT (BEAKER) (test 3 % vfrs=609) BASOPHILS RELATIVE PERCENT (BEAKER) (test 1 % qbye=391) NEUTROPHILS ABSOLUTE COUNT (BEAKER) (test 6.34 K/ L 1.56-6.13 votc=631) LYMPHOCYTES ABSOLUTE COUNT (BEAKER) (test 1.05 K/ L 1.18-3.74 vwht=730) MONOCYTES ABSOLUTE COUNT (BEAKER) (test 0.61 K/ L 0.24-0.36 xdxy=744) EOSINOPHILS ABSOLUTE COUNT (BEAKER) (test 0.26 K/ L 0.04-0.36 qovz=589) BASOPHILS ABSOLUTE COUNT (BEAKER) (test 0.06 K/ L 0.01-0.08 wrgv=229) IMMATURE GRANULOCYTES-RELATIVE PERCENT (BEAKER) 0 % 0-1 (test objy=8714) POCT-GLUCOSE [id number] 22:21:00 Test Item Value Reference Range Comments POC-GLUCOSE METER (BEAKER) 103 mg/dL 70-110 TESTED AT [address] (test ywgb=0633) [place] [id number] POCT-GLUCOSE [id number] 17:07:00 Test Item Value Reference Range Comments POC-GLUCOSE METER (BEAKER) 147 mg/dL 70-110 TESTED AT [address] (test yhyv=3876) [place] [id number] POCT-GLUCOSE [id number] 09:05:00 Test Item Value Reference Range Comments POC-GLUCOSE METER (BEAKER) 117 mg/dL 70-110 TESTED AT [address] (test trml=4492) [facility] [address] CBC W/PLT COUNT & AUTO [id number] 07:06:00 Test Item Value Reference Range Comments WHITE BLOOD CELL COUNT (BEAKER) (test koqe=915) 10.5 K/ L 3.5-10.5 RED BLOOD CELL COUNT (BEAKER) (test wnui=905) 5.13 M/ L 3.93-5.22 HEMOGLOBIN (BEAKER) (test efhu=384) 15.1 GM/DL 11.2-15.7 HEMATOCRIT (BEAKER) (test szbc=589) 50.7 % 34.1-44.9 MEAN CORPUSCULAR VOLUME (BEAKER) (test cple=866) 98.8 fL 79.4-94.8 MEAN CORPUSCULAR HEMOGLOBIN (BEAKER) (test 29.4 pg 25.6-32.2 hjbd=000) MEAN CORPUSCULAR HEMOGLOBIN CONC (BEAKER) (test 29.8 GM/DL 32.2-35.5 qjam=893) RED CELL DISTRIBUTION WIDTH (BEAKER) (test 13.1 % 11.7-14.4 hxtl=957) PLATELET COUNT (BEAKER) (test pcmc=558) 230 K/CU MM 150-450 MEAN PLATELET VOLUME (BEAKER) (test akgb=955) 11.6 fL 9.4-12.3 NUCLEATED RED BLOOD CELLS (BEAKER) (test 0 /100 WBC 0-0 gdxg=225) NEUTROPHILS RELATIVE PERCENT (BEAKER) (test 79 % kffm=635) LYMPHOCYTES RELATIVE PERCENT (BEAKER) (test 11 % kcse=150) MONOCYTES RELATIVE PERCENT (BEAKER) (test 7 % ozqk=263) EOSINOPHILS RELATIVE PERCENT (BEAKER) (test 3 % cgvd=124) BASOPHILS RELATIVE PERCENT (BEAKER) (test 1 % islz=869) NEUTROPHILS ABSOLUTE COUNT (BEAKER) (test 8.32 K/ L 1.56-6.13 czmk=648) LYMPHOCYTES ABSOLUTE COUNT (BEAKER) (test 1.13 K/ L 1.18-3.74 oafn=689) MONOCYTES ABSOLUTE COUNT (BEAKER) (test 0.68 K/ L 0.24-0.36 hbcb=300) EOSINOPHILS ABSOLUTE COUNT (BEAKER) (test 0.26 K/ L 0.04-0.36 rmhz=826) BASOPHILS ABSOLUTE COUNT (BEAKER) (test 0.07 K/ L 0.01-0.08 lygk=707) IMMATURE GRANULOCYTES-RELATIVE PERCENT (BEAKER) 1 % 0-1 (test sjbr=4968) [id number] 06:38:00 Test Item Value Reference Range Comments MAGNESIUM (BEAKER) (test 2.0 mg/dL 1.6-2.6 Specimen slightly hemolyzed ysdx=773) BASIC METABOLIC [id number] 06:38:00 Test Item Value Reference Range Comments SODIUM (BEAKER) (test 141 meq/L 136-145 qacf=310) POTASSIUM (BEAKER) (test 4.3 meq/L 3.5-5.1 Specimen slightly bqwa=837) hemolyzed CHLORIDE (BEAKER) (test 106 meq/L 98-107 vgcq=003) CO2 (BEAKER) (test 23 meq/L 22-29 xzay=323) BLOOD UREA NITROGEN 20 mg/dL 7-21 (BEAKER) (test dfkx=108) CREATININE (BEAKER) (test 0.81 mg/dL 0.57-1.25 Specimen slightly phvy=585) hemolyzed GLUCOSE RANDOM (BEAKER) 105 mg/dL 70-105 (test zlez=760) CALCIUM (BEAKER) (test 9.2 mg/dL 8.4-10.2 gtja=498) EGFR (BEAKER) (test 67 mL/min/1.73 sq m ESTIMATED GFR IS NOT oznq=6288) ACCURATE CREATININE CLEARANCE IN PREDICTING GLOMERULAR FILTRATION RATE. ESTIMATED GFR IS NOT APPLICABLE FOR DIALYSIS PATIENTS. HEPATIC FUNCTION [id number] 06:38:00 Test Item Value Reference Range Comments TOTAL PROTEIN (BEAKER) (test 6.9 gm/dL 6.0-8.3 Specimen slightly hemolyzed noiy=687) ALBUMIN (BEAKER) (test 3.4 g/dL 3.5-5.0 Specimen slightly hemolyzed ydky=2744) BILIRUBIN TOTAL (BEAKER) (test 0.8 mg/dL 0.2-1.2 Specimen slightly hemolyzed jgum=839) BILIRUBIN DIRECT (BEAKER) (test 0.3 mg/dL 0.1-0.5 Specimen slightly hemolyzed dvjx=739) ALKALINE PHOSPHATASE (BEAKER) 33 U/L 40-150 (test eurl=330) AST (SGOT) (BEAKER) (test 32 U/L 5-34 Specimen slightly hemolyzed gndk=537) ALT (SGPT) (BEAKER) (test 17 U/L 6-55 Specimen slightly hemolyzed zurf=155) [id number] 06:38:00 Test Item Value Reference Range Comments LIPASE (BEAKER) (test waff=413) 122 U/L 8-78 POCT-GLUCOSE [id number] 21:48:00 Test Item Value Reference Range Comments POC-GLUCOSE METER (BEAKER) 102 mg/dL 70-110 TESTED AT [address] (test tgyh=8925) [facility] [address] POCT-GLUCOSE [id number] 17:46:00 Test Item Value Reference Range Comments POC-GLUCOSE METER (BEAKER) 145 mg/dL 70-110 TESTED AT [address] (test rkin=1441) [facility] [address] POCT-GLUCOSE [id number] 12:35:00 Test Item Value Reference Range Comments POC-GLUCOSE METER (BEAKER) 158 mg/dL 70-110 TESTED AT [address] (test rgvn=5929) [place] [id number] POCT-GLUCOSE [id number] 07:47:00 Test Item Value Reference Range Comments POC-GLUCOSE METER (BEAKER) 119 mg/dL 70-110 TESTED AT [facility] [address] (test udzd=5498) [facility] [address] [id number] 06:40:00 Test Item Value Reference Range Comments LIPASE (BEAKER) (test iteo=332) 165 U/L 8-78 BASIC METABOLIC [id number] 06:40:00 Test Item Value Reference Range Comments SODIUM (BEAKER) (test 140 meq/L 136-145 yuqu=184) POTASSIUM (BEAKER) (test 4.0 meq/L 3.5-5.1 Specimen slightly eaoo=325) hemolyzed CHLORIDE (BEAKER) (test 102 meq/L 98-107 rtva=570) CO2 (BEAKER) (test 29 meq/L 22-29 vcpv=867) BLOOD UREA NITROGEN 29 mg/dL 7-21 (BEAKER) (test vsrs=168) CREATININE (BEAKER) (test 0.84 mg/dL 0.57-1.25 Specimen slightly efdg=521) hemolyzed GLUCOSE RANDOM (BEAKER) 101 mg/dL 70-105 (test bctb=849) CALCIUM (BEAKER) (test 8.9 mg/dL 8.4-10.2 zoja=089) EGFR (BEAKER) (test 65 mL/min/1.73 sq m ESTIMATED GFR IS NOT lkxz=4980) ACCURATE CREATININE CLEARANCE IN PREDICTING GLOMERULAR FILTRATION RATE. ESTIMATED GFR IS NOT APPLICABLE FOR DIALYSIS PATIENTS. HEPATIC FUNCTION [id number] 06:40:00 Test Item Value Reference Range Comments TOTAL PROTEIN (BEAKER) (test 6.6 gm/dL 6.0-8.3 Specimen slightly hemolyzed seme=295) ALBUMIN (BEAKER) (test 3.3 g/dL 3.5-5.0 Specimen slightly hemolyzed vvec=6823) BILIRUBIN TOTAL (BEAKER) (test 1.3 mg/dL 0.2-1.2 Specimen slightly hemolyzed fofi=935) BILIRUBIN DIRECT (BEAKER) (test 0.6 mg/dL 0.1-0.5 Specimen slightly hemolyzed lthf=451) ALKALINE PHOSPHATASE (BEAKER) 31 U/L 40-150 (test piry=758) AST (SGOT) (BEAKER) (test 34 U/L 5-34 Specimen slightly hemolyzed lyls=342) ALT (SGPT) (BEAKER) (test 16 U/L 6-55 Specimen slightly hemolyzed gijb=452) CBC W/PLT COUNT & AUTO [id number] 05:57:00 Test Item Value Reference Range Comments WHITE BLOOD CELL COUNT (BEAKER) (test llaz=927) 13.5 K/ L 3.5-10.5 RED BLOOD CELL COUNT (BEAKER) (test ynay=677) 5.03 M/ L 3.93-5.22 HEMOGLOBIN (BEAKER) (test oyul=847) 15.0 GM/DL 11.2-15.7 HEMATOCRIT (BEAKER) (test jkdm=512) 49.7 % 34.1-44.9 MEAN CORPUSCULAR VOLUME (BEAKER) (test avkq=022) 98.8 fL 79.4-94.8 MEAN CORPUSCULAR HEMOGLOBIN (BEAKER) (test 29.8 pg 25.6-32.2 twsa=953) MEAN CORPUSCULAR HEMOGLOBIN CONC (BEAKER) (test 30.2 GM/DL 32.2-35.5 ygdu=820) RED CELL DISTRIBUTION WIDTH (BEAKER) (test 13.3 % 11.7-14.4 mktc=525) PLATELET COUNT (BEAKER) (test gxil=487) 184 K/CU MM 150-450 MEAN PLATELET VOLUME (BEAKER) (test hqwx=470) 12.0 fL 9.4-12.3 NUCLEATED RED BLOOD CELLS (BEAKER) (test 0 /100 WBC 0-0 xxpr=090) NEUTROPHILS RELATIVE PERCENT (BEAKER) (test 84 % uhyg=836) LYMPHOCYTES RELATIVE PERCENT (BEAKER) (test 7 % cbty=420) MONOCYTES RELATIVE PERCENT (BEAKER) (test 6 % qfvi=248) EOSINOPHILS RELATIVE PERCENT (BEAKER) (test 1 % thnb=279) BASOPHILS RELATIVE PERCENT (BEAKER) (test 1 % cvxb=899) NEUTROPHILS ABSOLUTE COUNT (BEAKER) (test 11.36 K/ L 1.56-6.13 fjkz=555) LYMPHOCYTES ABSOLUTE COUNT (BEAKER) (test 0.91 K/ L 1.18-3.74 osxw=233) MONOCYTES ABSOLUTE COUNT (BEAKER) (test 0.87 K/ L 0.24-0.36 hxph=907) EOSINOPHILS ABSOLUTE COUNT (BEAKER) (test 0.19 K/ L 0.04-0.36 djqo=276) BASOPHILS ABSOLUTE COUNT (BEAKER) (test 0.07 K/ L 0.01-0.08 wrla=942) IMMATURE GRANULOCYTES-RELATIVE PERCENT (BEAKER) 1 % 0-1 (test kxoo=1030) POCT-GLUCOSE [id number] 21:35:00 Test Item Value Reference Range Comments POC-GLUCOSE METER (BEAKER) 160 mg/dL 70-110 TESTED AT [address] (test wpgm=2144) [place] [id number] POCT-GLUCOSE [id number] 18:42:00 Test Item Value Reference Range Comments POC-GLUCOSE METER (BEAKER) 119 mg/dL 70-110 TESTED AT [address] (test hnrj=5371) [place] [address] POCT-GLUCOSE [id number] 14:33:00 Test Item Value Reference Range Comments POC-GLUCOSE METER (BEAKER) 80 mg/dL 70-110 TESTED AT [address] (test qseq=5081) [place] [id number] POCT-GLUCOSE [id number] 12:29:00 Test Item Value Reference Range Comments POC-GLUCOSE METER (BEAKER) 81 mg/dL 70-110 TESTED AT [address] (test dkac=6868) [facility] [address] RAD, CHEST, 1 VIEW, NON [id number] 09:58:00Reason for exam:->copdShould this be performed at the bedside?->YesFINAL REPORT RAD , CHEST, 1 VIEW, NON DEPT INDICATION: copd COMPARISON: March 21, 2018 FINDINGS: Portable frontal view of the chest. IMPRESSION: Support Lines: None. Lungs and pleura: Clear lungs. No pneumothorax.Heart and mediastinum: Stable contours. Stable pacer apparatus.Additional findings: None. Signed: JR Jerome Robert MDReport Verified Date/Time: 06/14/2019 09:58:25 Reading Location : [address] Neuro Reading Room HEMOGLOBIN [id number] 09:20:00 Test Item Value Reference Range Comments HEMOGLOBIN A1C (BEAKER) (test oeez=287) 7.1 % 4.3-6.1 LIPID [id number] 06:36:00 Test Item Value Reference Range Comments TRIGLYCERIDES (BEAKER) (test qaid=407) 59 mg/dL CHOLESTEROL (BEAKER) (test sylb=504) 134 mg/dL HDL CHOLESTEROL (BEAKER) (test mhdy=966) 50 mg/dL LDL CHOLESTEROL CALCULATED (BEAKER) (test 72 mg/dL hgqv=634) Triglyceride Reference Range: Low Risk <150 Borderline 150- 199 High Risk 200-499 Very High Risk >=500Cholesterol Reference Range: Low Risk <200 Borderline 200-239 High Risk > 240HDL Cholesterol Reference Range: Low Risk >=60 High Risk <40LDL Cholesterol Reference Range: Optimal <100 Near Optimal 100-129 Borderline 130-159 High 160-189 Very High >=190BASIC METABOLIC [id number] 06:36:00 Test Item Value Reference Range Comments SODIUM (BEAKER) (test 144 meq/L 136-145 oluv=418) POTASSIUM (BEAKER) (test 3.9 meq/L 3.5-5.1 vuei=170) CHLORIDE (BEAKER) (test 105 meq/L 98-107 kdni=043) CO2 (BEAKER) (test 26 meq/L 22-29 tpzy=443) BLOOD UREA NITROGEN 24 mg/dL 7-21 (BEAKER) (test ukgt=081) CREATININE (BEAKER) (test 0.85 mg/dL 0.57-1.25 onlk=253) GLUCOSE RANDOM (BEAKER) 68 mg/dL 70-105 (test nyxx=836) CALCIUM (BEAKER) (test 9.0 mg/dL 8.4-10.2 jxse=047) EGFR (BEAKER) (test 64 mL/min/1.73 sq m ESTIMATED GFR IS NOT sqvg=8248) ACCURATE CREATININE CLEARANCE IN PREDICTING GLOMERULAR FILTRATION RATE. ESTIMATED GFR IS NOT APPLICABLE FOR DIALYSIS PATIENTS. HEPATIC FUNCTION [id number] 06:36:00 Test Item Value Reference Range Comments TOTAL PROTEIN (BEAKER) (test ptsv=482) 7.0 gm/dL 6.0-8.3 ALBUMIN (BEAKER) (test jscc=1910) 3.6 g/dL 3.5-5.0 BILIRUBIN TOTAL (BEAKER) (test gzon=727) 1.2 mg/dL 0.2-1.2 BILIRUBIN DIRECT (BEAKER) (test zjex=990) 0.6 mg/dL 0.1-0.5 ALKALINE PHOSPHATASE (BEAKER) (test wzpq=585) 31 U/L 40-150 AST (SGOT) (BEAKER) (test cbca=198) 33 U/L 5-34 ALT (SGPT) (BEAKER) (test iaaf=066) 19 U/L 6-55 [id number] 06:36:00 Test Item Value Reference Range Comments AMYLASE (BEAKER) (test ajau=671) 368 U/L 25-125 [id number] 06:36:00 Test Item Value Reference Range Comments LIPASE (BEAKER) (test nqvh=478) 451 U/L 8-78 POCT-GLUCOSE [id number] 06:34:00 Test Item Value Reference Range Comments POC-GLUCOSE METER (BEAKER) 73 mg/dL 70-110 TESTED AT [facility] [address] [facility] (test fjxp=3747) [facility] [address] B-TYPE NATRIURETIC FACTOR (BNP)2019-06-14 06:32:00 Test Item Value Reference Range Comments B-TYPE NATRIURETIC PEPTIDE (BEAKER) (test 376 pg/mL 0-100 mvcr=530) CBC W/PLT COUNT & AUTO [id number] 06:23:00 Test Item Value Reference Range Comments WHITE BLOOD CELL COUNT (BEAKER) (test pste=446) 12.9 K/ L 3.5-10.5 RED BLOOD CELL COUNT (BEAKER) (test mwbd=094) 5.60 M/ L 3.93-5.22 HEMOGLOBIN (BEAKER) (test sene=847) 16.7 GM/DL 11.2-15.7 HEMATOCRIT (BEAKER) (test sddb=902) 55.2 % 34.1-44.9 MEAN CORPUSCULAR VOLUME (BEAKER) (test ahga=637) 98.6 fL 79.4-94.8 MEAN CORPUSCULAR HEMOGLOBIN (BEAKER) (test 29.8 pg 25.6-32.2 ftea=640) MEAN CORPUSCULAR HEMOGLOBIN CONC (BEAKER) (test 30.3 GM/DL 32.2-35.5 hyus=805) RED CELL DISTRIBUTION WIDTH (BEAKER) (test 13.3 % 11.7-14.4 ghci=997) PLATELET COUNT (BEAKER) (test celj=736) 190 K/CU MM 150-450 MEAN PLATELET VOLUME (BEAKER) (test beaf=270) 11.6 fL 9.4-12.3 NUCLEATED RED BLOOD CELLS (BEAKER) (test 0 /100 WBC 0-0 nviz=772) NEUTROPHILS RELATIVE PERCENT (BEAKER) (test 88 % igmj=910) LYMPHOCYTES RELATIVE PERCENT (BEAKER) (test 6 % badh=989) MONOCYTES RELATIVE PERCENT (BEAKER) (test 4 % uhsr=946) EOSINOPHILS RELATIVE PERCENT (BEAKER) (test 0 % uuqu=022) BASOPHILS RELATIVE PERCENT (BEAKER) (test 1 % gqjg=209) NEUTROPHILS ABSOLUTE COUNT (BEAKER) (test 11.32 K/ L 1.56-6.13 lmfx=335) LYMPHOCYTES ABSOLUTE COUNT (BEAKER) (test 0.81 K/ L 1.18-3.74 sram=823) MONOCYTES ABSOLUTE COUNT (BEAKER) (test 0.51 K/ L 0.24-0.36 etss=399) EOSINOPHILS ABSOLUTE COUNT (BEAKER) (test 0.04 K/ L 0.04-0.36 budj=837) BASOPHILS ABSOLUTE COUNT (BEAKER) (test 0.07 K/ L 0.01-0.08 reqz=102) IMMATURE GRANULOCYTES-RELATIVE PERCENT (BEAKER) 1 % 0-1 (test rwjr=9735) PROTHROMBIN [id number] 06:21:00 Test Item Value Reference Range Comments PROTIME (BEAKER) (test zcli=524) 13.6 seconds 11.9-14.2 INR (BEAKER) (test zkkn=274) 1.1 <=5.9 Effective 03/05/2019: PT Reference Range ChangeNew: 11.9-14.2 Previous: 11.7- 14.7RECOMMENDED COUMADIN/WARFARIN INR THERAPY RANGESSTANDARD DOSE: 2.0-3.0 Includes: PROPHYLAXIS for venous thrombosis, systemic embolization; TREATMENT for venous thrombosis and/or pulmonary embolus.HIGH RISK: Target INR is2.5-3.5 for patients wiht mechanical heart valves.POCT-GLUCOSE [id number] 00:39:00 Test Item Value Reference Range Comments POC-GLUCOSE METER (BEAKER) 72 mg/dL 70-110 TESTED AT [address] (test fdos=0678) [place] [address] POCT-LACTIC ACID, [id number] 00:00:00 Test Item Value Reference Range Comments POC-LACTIC ACID, ARTERIAL 0.7 mmol/L 0.4-1.3 TESTED AT [address] (BEAKER) (test qvli=0279) [place] [address] POCT-BLOOD GASES, [id number] 00:00:00 Test Item Value Reference Range Comments TEMP, CELSIUS-POC (BEAKER) 37.4 (test izhm=0577) FIO2-POC (BEAKER) (test 28 TESTED AT [address] bvki=7203) [place] [address] PH, ARTERIAL-POC (BEAKER) 7.376 7.350-7.450 (test rgpw=0126) PCO2, ARTERIAL-POC (BEAKER) 56.3 mm Hg 35.0-45.0 (test piae=3763) PO2, ARTERIAL-POC (BEAKER) 62.0 mm Hg 80.0-90.0 (test eooh=3767) SO2, ARTERIAL-POC (BEAKER) 90.0 % 96.0-97.0 (test ueud=6148) HCO3, ARTERIAL-POC (BEAKER) 32.8 meq/L 21.0-29.0 (test oygv=4174) BASE EXCESS, ARTERIAL-POC 8.0 meq/L -2.0-3.0 (BEAKER) (test envj=5860) [id number] 00:00:00 Test Item Value Reference Range Comments POC-SODIUM (BEAKER) (test 142 meq/L 135-148 TESTED AT [address] ywoo=8452) [place] [address] [id number]-[id number] 00:00:00 Test Item Value Reference Range Comments POC-POTASSIUM (BEAKER) (test 3.5 meq/L 3.6-5.5 TESTED AT [address] tgul=0872) [place] [address] [id number] 00:00:00 Test Item Value Reference Range Comments POC-GLUCOSE (BEAKER) (test 80 mg/dL 70-110 TESTED AT [address] rlpa=1609) [place] [id number] POCT-CALCIUM [id number] 00:00:00 Test Item Value Reference Range Comments POC-CALCIUM IONIZED (BEAKER) 1.17 mmol/L 1.12-1.27 TESTED AT [address] (test ynfx=2017) [place] [id number] [id number] 00:00:00 Test Item Value Reference Range Comments POC-HEMATOCRIT (BEAKER) (test 50 % 36-45 TESTED AT [address] khvw=6193) [place] [id number] [id number] 00:00:00 Test Item Value Reference Range Comments POC-HEMOGLOBIN (BEAKER) 17.0 g/dL 12.0-15.0 TESTED AT [address] (test qlol=2293) [place] [id number] AT [place] [id number] POCT-GLUCOSE [id number] 20:48:00 Test Item Value Reference Range Comments POC-GLUCOSE METER (BEAKER) 80 mg/dL 70-110 TESTED AT [address] (test thml=5376) [place] [address] AFB CULTURE + [id number] 00:11:00 Test Item Value Reference Range Comments CULTURE (BEAKER) (test No acid-fast bacilli isolated pbwm=5004) in 42 days AFB SMEAR (BEAKER) (test No acid fast bacilli seen ebam=126) FUNGUS CULTURE + [id number] 17:08:00 Test Item Value Reference Range Comments CULTURE (BEAKER) (test No fungus isolated in 28 days wuhj=4920) FUNGUS SMEAR (BEAKER) (test No fungi seen utoz=2032) AFB CULTURE + [id number] 02:56:00 Test Item Value Reference Range Comments CULTURE (BEAKER) (test No acid-fast bacilli isolated oxhk=2921) in 42 days AFB SMEAR (BEAKER) (test No acid fast bacilli seen mbwo=621) ANAEROBIC [id number] 17:45:00 Test Item Value Reference Range Comments CULTURE (BEAKER) (test meym=5242) No anaerobes isolated BLOOD [id number] 17:43:00 Test Item Value Reference Range Comments CULTURE (BEAKER) (test dxpv=2272) No growth in 5 days BLOOD [id number] 17:43:00 Test Item Value Reference Range Comments CULTURE (BEAKER) (test gqpn=9542) No growth in 5 days POCT-GLUCOSE [id number] 12:38:00 Test Item Value Reference Range Comments POC-GLUCOSE METER (BEAKER) 147 mg/dL 70-110 TESTED AT [facility] [address] [facility] (test hbbk=4493) [facility] [address] WOUND CULTURE + GRAM [id number] 10:46:00 Test Item Value Reference Range Comments CULTURE (BEAKER) (test PSEUDOMONAS 4+ Pseudomonas pvch=3179) AERUGINOSA aeruginosa Amikacin (test code=1) Susceptible 0-16 , Resistant <0 or >16 Aztreonam (test Susceptible 0-8 , code=32) Resistant <0 or >8 Cefepime (test code=51) Susceptible 0-8 , Resistant <0 or >8 Ceftazidime (test Susceptible 0-8 , code=27) Resistant <0 or >8 Ciprofloxacin (test Susceptible 0-1 , code=7) Resistant <0 or >1 Doripenem (test Susceptible 0-2 , qwme=637) Resistant <0 or >2 Gentamicin (test Susceptible [...] >4 CULTURE (BEAKER) (test PSEUDOMONAS 4+ Pseudomonas zpox=7639) AERUGINOSA aeruginosaof a second type Amikacin (test code=1) Susceptible 0-16 , Resistant <0 or >16 Aztreonam (test Susceptible 0-8 , code=32) Resistant <0 or >8 Cefepime (test code=51) Susceptible 0-8 , Resistant <0 or >8 Ceftazidime (test Susceptible 0-8 , code=27) Resistant <0 or >8 Ciprofloxacin (test Susceptible 0-1 , code=7) Resistant <0 or >1 Doripenem (test Susceptible 0-2 , vrhu=576) Resistant <0 or >2 Gentamicin (test Susceptible [...] CULTURE (BEAKER) (test KLEBSIELLA PNEUMONIAE <1+ Klebsiella vekn=8121) pneumoniae Amikacin (test code=1) Ampicillin + Sulbactam (test code=6) Aztreonam (test code=32) Cefepime (test code=51) Cefoxitin (test code=68) Ceftazidime (test code=27) Ceftriaxone (test code=52) Ertapenem (test code=38) Gentamicin (test code=18) Levofloxacin (test code=22) Meropenem (test code=34) Nitrofurantoin (test code=23) Piperacillin + Tazobactam (test code=29) Tetracycline (test code=2) Tobramycin (test code=25) Trimethoprim + Sulfamethoxazole (test code=47) CULTURE (BEAKER) (test COAGULASE NEGATIVE 1+ Coagulase negative gnxe=6880) STAPHYLOCOCCUS Staphylococcus Clindamycin (test code=10) Erythromycin (test code=4) Levofloxacin (test code=22) Linezolid (test code=40) Nitrofurantoin (test code=23) Oxacillin (test code=14) Rifampin (test code=43) Tetracycline (test code=2) Trimethoprim + Sulfamethoxazole (test code=47) Vancomycin (test Susceptible 0-4 , code=13) Resistant <0 or >4 CULTURE (BEAKER) (test PSEUDOMONAS 4+ Pseudomonas zbvu=6769) AERUGINOSA aeruginosaof a third type Amikacin (test code=1) Susceptible 0-16 , Resistant <0 or >16 Aztreonam (test Susceptible 0-8 , code=32) Resistant <0 or >8 Cefepime (test code=51) Susceptible 0-8 , Resistant <0 or >8 Ceftazidime (test Susceptible 0-8 , code=27) Resistant <0 or >8 Ciprofloxacin (test Susceptible 0-1 , code=7) Resistant <0 or >1 Doripenem (test Susceptible 0-2 , xsan=162) Resistant <0 or >2 Gentamicin (test Susceptible [...] >4 CULTURE (BEAKER) (test <1+ Coagulase negative guhn=9540) Staphylococcusof a second type GRAM STAIN RESULT <1+ WBCs (BEAKER) (test ymps=2455) GRAM STAIN RESULT <1+ gram negative (BEAKER) (test rods meas=669049) SURGICALLY OBTAINED CULTURE + GRAM [id number] 08:30:00 Test Item Value Reference Range Comments CULTURE (BEAKER) (test hidv=7733) No growth GRAM STAIN RESULT (BEAKER) (test No WBCs qryy=3934) GRAM STAIN RESULT (BEAKER) (test No organisms seen veaz=89782) POCT-GLUCOSE [id number] 07:23:00 Test Item Value Reference Range Comments POC-GLUCOSE METER (BEAKER) 97 mg/dL 70-110 TESTED AT [facility] [address] (test vfxn=9743) [facility] [address] POCT-GLUCOSE [id number] 22:04:00 Test Item Value Reference Range Comments POC-GLUCOSE METER (BEAKER) 177 mg/dL 70-110 TESTED AT [address] (test isum=1525) [facility] [address] POCT-GLUCOSE [id number] 17:38:00 Test Item Value Reference Range Comments POC-GLUCOSE METER (BEAKER) 232 mg/dL 70-110 TESTED AT [address] (test omzu=4138) [facility] [address] POCT-GLUCOSE [id number] 12:40:00 Test Item Value Reference Range Comments POC-GLUCOSE METER (BEAKER) 139 mg/dL 70-110 TESTED AT [address] (test ebbt=1913) [facility] [address] POCT-GLUCOSE [id number] 07:47:00 Test Item Value Reference Range Comments POC-GLUCOSE METER (BEAKER) 96 mg/dL 70-110 TESTED AT [address] (test qosa=1615) [place] [id number] POCT-GLUCOSE [id number] 04:52:00 Test Item Value Reference Range Comments POC-GLUCOSE METER (BEAKER) 112 mg/dL 70-110 TESTED AT [address] (test ceon=6517) [facility] [address] POCT-GLUCOSE [id number] 23:28:00 Test Item Value Reference Range Comments POC-GLUCOSE METER (BEAKER) 114 mg/dL 70-110 TESTED AT [address] (test lrrg=2622) [facility] [address] POCT-GLUCOSE [id number] 17:12:00 Test Item Value Reference Range Comments POC-GLUCOSE METER (BEAKER) 155 mg/dL 70-110 TESTED AT [address] (test dhwi=7338) [place] [address] POCT-GLUCOSE [id number] 12:17:00 Test Item Value Reference Range Comments POC-GLUCOSE METER (BEAKER) 163 mg/dL 70-110 TESTED AT [address] (test aipu=6911) [place] [address] FUNGUS CULTURE + [id number] 09:29:00 Test Item Value Reference Range Comments CULTURE (BEAKER) (test No fungus isolated in 28 days ruex=8137) FUNGUS SMEAR (BEAKER) (test <1+ hyphal elements seen hhkd=0526) See smear results.POCT-GLUCOSE [id number] 21:47:00 Test Item Value Reference Range Comments POC-GLUCOSE METER (BEAKER) 211 mg/dL 70-110 TESTED AT [facility] [address] [facility] (test hrnz=9788) [facility] [address] POCT-GLUCOSE [id number] 17:07:00 Test Item Value Reference Range Comments POC-GLUCOSE METER (BEAKER) 160 mg/dL 70-110 TESTED AT [facility] [address] [facility] (test ocwm=9418) [facility] [address] POCT-GLUCOSE [id number] 11:56:00 Test Item Value Reference Range Comments POC-GLUCOSE METER (BEAKER) 108 mg/dL 70-110 TESTED AT [place] [id number] [facility] (test otel=1702) [facility] [address] COMPREHENSIVE METABOLIC [id number] 23:00:00 Test Item Value Reference Range Comments TOTAL PROTEIN (BEAKER) 7.5 gm/dL 6.0-8.3 (test zzkb=710) ALBUMIN (BEAKER) (test 3.8 g/dL 3.5-5.0 twcn=9899) ALKALINE PHOSPHATASE 53 U/L 40-150 (BEAKER) (test popz=765) BILIRUBIN TOTAL (BEAKER) 0.3 mg/dL 0.2-1.2 (test skbg=758) SODIUM (BEAKER) (test 138 meq/L 136-145 ghpq=091) POTASSIUM (BEAKER) (test 3.9 meq/L 3.5-5.1 jqzj=642) CHLORIDE (BEAKER) (test 101 meq/L 98-107 afac=080) CO2 (BEAKER) (test 28 meq/L 22-29 jtme=101) BLOOD UREA NITROGEN 22 mg/dL 7-21 (BEAKER) (test eggv=048) CREATININE (BEAKER) (test 0.98 mg/dL 0.57-1.25 bblo=024) GLUCOSE RANDOM (BEAKER) 154 mg/dL 70-105 (test jpbp=582) CALCIUM (BEAKER) (test 10.1 mg/dL 8.4-10.2 afvm=766) AST (SGOT) (BEAKER) (test 20 U/L 5-34 dcos=753) ALT (SGPT) (BEAKER) (test 12 U/L 6-55 scmi=209) EGFR (BEAKER) (test 54 mL/min/1.73 sq m ESTIMATED GFR IS NOT srkd=2131) ACCURATE CREATININE CLEARANCE IN PREDICTING GLOMERULAR FILTRATION RATE. ESTIMATED GFR IS NOT APPLICABLE FOR DIALYSIS PATIENTS. PROTHROMBIN [id number] 22:52:00 Test Item Value Reference Range Comments PROTIME (BEAKER) (test scqy=774) 14.0 seconds 11.7-14.7 INR (BEAKER) (test bxbi=221) 1.1 <=5.9 RECOMMENDED COUMADIN/WARFARIN INR THERAPY RANGESSTANDARD DOSE: 2.0 - 3.0 Includes: PROPHYLAXIS forvenous thrombosis, systemic embolization; TREATMENT for venous thrombosis and/or pulmonary embolus.HIGH RISK: Target INR is 2.5-3.5 for patients with mechanical heart valves.CBC W/PLT COUNT & AUTO [id number] 22:51:00 Test Item Value Reference Range Comments WHITE BLOOD CELL COUNT (BEAKER) (test aiar=622) 8.7 K/ L 3.5-10.5 RED BLOOD CELL COUNT (BEAKER) (test rshk=271) 4.77 M/ L 3.93-5.22 HEMOGLOBIN (BEAKER) (test schk=943) 13.6 GM/DL 11.2-15.7 HEMATOCRIT (BEAKER) (test nbsb=453) 45.4 % 34.1-44.9 MEAN CORPUSCULAR VOLUME (BEAKER) (test cobb=963) 95.2 fL 79.4-94.8 MEAN CORPUSCULAR HEMOGLOBIN (BEAKER) (test 28.5 pg 25.6-32.2 sqzp=063) MEAN CORPUSCULAR HEMOGLOBIN CONC (BEAKER) (test 30.0 GM/DL 32.2-35.5 bkes=621) RED CELL DISTRIBUTION WIDTH (BEAKER) (test 15.2 % 11.7-14.4 mgpo=218) PLATELET COUNT (BEAKER) (test rtzx=768) 267 K/CU MM 150-450 MEAN PLATELET VOLUME (BEAKER) (test aimb=893) 11.2 fL 9.4-12.3 NUCLEATED RED BLOOD CELLS (BEAKER) (test 0 /100 WBC 0-0 hcct=016) NEUTROPHILS RELATIVE PERCENT (BEAKER) (test 73 % ryjc=127) LYMPHOCYTES RELATIVE PERCENT (BEAKER) (test 16 % rmev=501) MONOCYTES RELATIVE PERCENT (BEAKER) (test 8 % pzyi=449) EOSINOPHILS RELATIVE PERCENT (BEAKER) (test 1 % jjol=936) BASOPHILS RELATIVE PERCENT (BEAKER) (test 1 % lvfm=095) NEUTROPHILS ABSOLUTE COUNT (BEAKER) (test 6.38 K/ L 1.56-6.13 szdf=195) LYMPHOCYTES ABSOLUTE COUNT (BEAKER) (test 1.37 K/ L 1.18-3.74 rdrw=911) MONOCYTES ABSOLUTE COUNT (BEAKER) (test 0.73 K/ L 0.24-0.36 lsrj=251) EOSINOPHILS ABSOLUTE COUNT (BEAKER) (test 0.12 K/ L 0.04-0.36 eyhj=269) BASOPHILS ABSOLUTE COUNT (BEAKER) (test 0.08 K/ L 0.01-0.08 mrlz=637) IMMATURE GRANULOCYTES-RELATIVE PERCENT (BEAKER) 1 % 0-1 (test qiup=4113) POCT-GLUCOSE [id number] 22:47:00 Test Item Value Reference Range Comments POC-GLUCOSE METER (BEAKER) 196 mg/dL 70-110 TESTED AT [address] (test haek=1476) [place] [address] POCT-GLUCOSE [id number] 17:34:00 Test Item Value Reference Range Comments POC-GLUCOSE METER (BEAKER) 261 mg/dL 70-110 TESTED AT [address] (test kwks=1301) [place] [address] POCT-GLUCOSE [id number] 16:52:00 Test Item Value Reference Range Comments POC-GLUCOSE METER (BEAKER) 254 mg/dL 70-110 TESTED AT [address] (test ieif=6808) [place] [address] POCT-GLUCOSE [id number] 12:24:00 Test Item Value Reference Range Comments POC-GLUCOSE METER (BEAKER) 168 mg/dL 70-110 TESTED AT [address] (test fceq=0831) [place] [address] POCT-GLUCOSE [id number] 08:52:00 Test Item Value Reference Range Comments POC-GLUCOSE METER (BEAKER) 139 mg/dL 70-110 TESTED AT [address] (test ital=7102) [place] [address] [place], [id number] 08:32:00S/p aortic-bilateral femoral bypass with right groin [...] MDReport Verified Date/Time: 04/21/2018 08:32:26 Reading Location: [address] Consult Reading Room 08: 32 AMPOCT-GLUCOSE [id number] 21:51:00 Test Item Value Reference Range Comments POC-GLUCOSE METER (BEAKER) 132 mg/dL 70-110 TESTED AT [address] (test mqyp=6637) [place] [address] POCT-GLUCOSE [id number] 16:54:00 Test Item Value Reference Range Comments POC-GLUCOSE METER (BEAKER) 126 mg/dL 70-110 TESTED AT [address] (test khtr=0917) [facility] [address] POCT-GLUCOSE [id number] 12:41:00 Test Item Value Reference Range Comments POC-GLUCOSE METER (BEAKER) 163 mg/dL 70-110 TESTED AT [address] (test owcc=7145) [place] [address] POCT-GLUCOSE [id number] 07:37:00 Test Item Value Reference Range Comments POC-GLUCOSE METER (BEAKER) 96 mg/dL 70-110 TESTED AT [address] (test fsfa=4083) [facility] [address] BASIC METABOLIC [id number] 06:21:00 Test Item Value Reference Range Comments SODIUM (BEAKER) (test 142 meq/L 136-145 sent=779) POTASSIUM (BEAKER) (test 3.7 meq/L 3.5-5.1 cnts=409) CHLORIDE (BEAKER) (test 102 meq/L 98-107 mtrl=170) CO2 (BEAKER) (test 30 meq/L 22-29 prat=895) BLOOD UREA NITROGEN 22 mg/dL 7-21 (BEAKER) (test hxqo=047) CREATININE (BEAKER) (test 1.05 mg/dL 0.57-1.25 rldw=916) GLUCOSE RANDOM (BEAKER) 88 mg/dL 70-105 (test bkzk=221) CALCIUM (BEAKER) (test 10.1 mg/dL 8.4-10.2 ulmj=758) EGFR (BEAKER) (test 50 mL/min/1.73 sq m ESTIMATED GFR IS NOT beie=3584) ACCURATE CREATININE CLEARANCE IN PREDICTING GLOMERULAR FILTRATION RATE. ESTIMATED GFR IS NOT APPLICABLE FOR DIALYSIS PATIENTS. CBC W/PLT COUNT & AUTO [id number] 05:46:00 Test Item Value Reference Range Comments WHITE BLOOD CELL COUNT (BEAKER) (test ziuc=556) 7.0 K/ L 3.5-10.5 RED BLOOD CELL COUNT (BEAKER) (test iqvx=195) 5.52 M/ L 3.93-5.22 HEMOGLOBIN (BEAKER) (test yhvm=162) 15.6 GM/DL 11.2-15.7 HEMATOCRIT (BEAKER) (test gvke=212) 53.3 % 34.1-44.9 MEAN CORPUSCULAR VOLUME (BEAKER) (test avxs=001) 96.6 fL 79.4-94.8 MEAN CORPUSCULAR HEMOGLOBIN (BEAKER) (test 28.3 pg 25.6-32.2 vkzt=607) MEAN CORPUSCULAR HEMOGLOBIN CONC (BEAKER) (test 29.3 GM/DL 32.2-35.5 lpzp=678) RED CELL DISTRIBUTION WIDTH (BEAKER) (test 15.3 % 11.7-14.4 tdbp=556) PLATELET COUNT (BEAKER) (test ttuy=933) 257 K/CU MM 150-450 MEAN PLATELET VOLUME (BEAKER) (test gpvf=266) 11.5 fL 9.4-12.3 NUCLEATED RED BLOOD CELLS (BEAKER) (test 0 /100 WBC 0-0 sdmx=677) NEUTROPHILS RELATIVE PERCENT (BEAKER) (test 58 % ndqa=650) LYMPHOCYTES RELATIVE PERCENT (BEAKER) (test 25 % binl=778) MONOCYTES RELATIVE PERCENT (BEAKER) (test 9 % dumh=708) EOSINOPHILS RELATIVE PERCENT (BEAKER) (test 5 % mrtr=004) BASOPHILS RELATIVE PERCENT (BEAKER) (test 2 % ddww=886) NEUTROPHILS ABSOLUTE COUNT (BEAKER) (test 4.05 K/ L 1.56-6.13 sokz=439) LYMPHOCYTES ABSOLUTE COUNT (BEAKER) (test 1.76 K/ L 1.18-3.74 gtrl=590) MONOCYTES ABSOLUTE COUNT (BEAKER) (test 0.65 K/ L 0.24-0.36 kzvf=732) EOSINOPHILS ABSOLUTE COUNT (BEAKER) (test 0.33 K/ L 0.04-0.36 wcwx=173) BASOPHILS ABSOLUTE COUNT (BEAKER) (test 0.12 K/ L 0.01-0.08 krtf=789) IMMATURE GRANULOCYTES-RELATIVE PERCENT (BEAKER) 1 % 0-1 (test ptad=9356) POCT-GLUCOSE [id number] 21:11:00 Test Item Value Reference Range Comments POC-GLUCOSE METER (BEAKER) 152 mg/dL 70-110 TESTED AT [address] (test einl=7069) [place] [address] POCT-GLUCOSE [id number] 16:41:00 Test Item Value Reference Range Comments POC-GLUCOSE METER (BEAKER) 100 mg/dL 70-110 TESTED AT [address] (test kagx=2743) [place] [address] POCT-GLUCOSE [id number] 13:05:00 Test Item Value Reference Range Comments POC-GLUCOSE METER (BEAKER) 127 mg/dL 70-110 TESTED AT [address] (test zuso=8345) [place] [address] TSH/FREE T4 IF [id number] 12:05:00 Test Item Value Reference Range Comments THYROID STIMULATING HORMONE (BEAKER) (test 2.75 uIU/mL 0.35-4.94 hzpy=386) [id number] 11:48:00 Test Item Value Reference Range Comments MAGNESIUM (BEAKER) (test pdmo=407) 2.2 mg/dL 1.6-2.6 BASIC METABOLIC [id number] 11:48:00 Test Item Value Reference Range Comments SODIUM (BEAKER) (test 142 meq/L 136-145 lyiw=884) POTASSIUM (BEAKER) (test 3.7 meq/L 3.5-5.1 xkpw=928) CHLORIDE (BEAKER) (test 103 meq/L 98-107 rmvx=780) CO2 (BEAKER) (test 30 meq/L 22-29 zqcb=253) BLOOD UREA NITROGEN 27 mg/dL 7-21 (BEAKER) (test tmsp=917) CREATININE (BEAKER) (test 1.19 mg/dL 0.57-1.25 fudu=460) GLUCOSE RANDOM (BEAKER) 112 mg/dL 70-105 (test ufzt=769) CALCIUM (BEAKER) (test 9.6 mg/dL 8.4-10.2 lzbt=893) EGFR (BEAKER) (test 43 mL/min/1.73 sq m ESTIMATED GFR IS NOT uuan=5833) ACCURATE CREATININE CLEARANCE IN PREDICTING GLOMERULAR FILTRATION RATE. ESTIMATED GFR IS NOT APPLICABLE FOR DIALYSIS PATIENTS. POCT-GLUCOSE [id number] 11:40:00 Test Item Value Reference Range Comments POC-GLUCOSE METER (BEAKER) 118 mg/dL 70-110 TESTED AT [facility] [address] [place] [address] (test xawh=5919) [facility] [address] CBC W/PLT COUNT & AUTO [id number] 11:30:00 Test Item Value Reference Range Comments WHITE BLOOD CELL COUNT (BEAKER) (test yslo=227) 7.3 K/ L 3.5-10.5 RED BLOOD CELL COUNT (BEAKER) (test dqph=508) 4.68 M/ L 3.93-5.22 HEMOGLOBIN (BEAKER) (test yvsd=183) 13.4 GM/DL 11.2-15.7 HEMATOCRIT (BEAKER) (test sjow=883) 44.7 % 34.1-44.9 MEAN CORPUSCULAR VOLUME (BEAKER) (test tbwz=926) 95.5 fL 79.4-94.8 MEAN CORPUSCULAR HEMOGLOBIN (BEAKER) (test 28.6 pg 25.6-32.2 wsro=304) MEAN CORPUSCULAR HEMOGLOBIN CONC (BEAKER) (test 30.0 GM/DL 32.2-35.5 hfku=937) RED CELL DISTRIBUTION WIDTH (BEAKER) (test 15.5 % 11.7-14.4 tkam=534) PLATELET COUNT (BEAKER) (test ouvg=567) 260 K/CU MM 150-450 MEAN PLATELET VOLUME (BEAKER) (test fplx=144) 10.7 fL 9.4-12.3 NUCLEATED RED BLOOD CELLS (BEAKER) (test 0 /100 WBC 0-0 gpsw=976) NEUTROPHILS RELATIVE PERCENT (BEAKER) (test 70 % lrtu=391) LYMPHOCYTES RELATIVE PERCENT (BEAKER) (test 19 % kyui=507) MONOCYTES RELATIVE PERCENT (BEAKER) (test 8 % ygpm=801) EOSINOPHILS RELATIVE PERCENT (BEAKER) (test 2 % kjjs=114) BASOPHILS RELATIVE PERCENT (BEAKER) (test 1 % cqdi=755) NEUTROPHILS ABSOLUTE COUNT (BEAKER) (test 5.11 K/ L 1.56-6.13 pdza=282) LYMPHOCYTES ABSOLUTE COUNT (BEAKER) (test 1.37 K/ L 1.18-3.74 lxnq=822) MONOCYTES ABSOLUTE COUNT (BEAKER) (test 0.59 K/ L 0.24-0.36 ibph=227) EOSINOPHILS ABSOLUTE COUNT (BEAKER) (test 0.17 K/ L 0.04-0.36 dcwm=385) BASOPHILS ABSOLUTE COUNT (BEAKER) (test 0.07 K/ L 0.01-0.08 nzmc=521) IMMATURE GRANULOCYTES-RELATIVE PERCENT (BEAKER) 0 % 0-1 (test sirq=0815) ANAEROBIC [id number] 02:34:00 Test Item Value Reference Range Comments CULTURE (BEAKER) (test angh=6946) No anaerobes isolated SURGICALLY OBTAINED CULTURE + GRAM [id number] 14:05:00 Test Item Value Reference Range Comments CULTURE (BEAKER) (test urao=9677) No growth GRAM STAIN RESULT (BEAKER) (test 1+ WBCs npee=0687) GRAM STAIN RESULT (BEAKER) (test No organisms seen vgnf=32955) POCT-GLUCOSE [id number] 12:39:00 Test Item Value Reference Range Comments POC-GLUCOSE METER (BEAKER) 131 mg/dL 70-110 TESTED AT [address] (test iwfd=3694) [facility] [address] POCT-GLUCOSE [id number] 08:01:00 Test Item Value Reference Range Comments POC-GLUCOSE METER (BEAKER) 106 mg/dL 70-110 TESTED AT [facility] [address] (test twem=4443) [facility] [address] BASIC METABOLIC [id number] 06:21:00 Test Item Value Reference Range Comments SODIUM (BEAKER) (test 139 meq/L 136-145 affa=400) POTASSIUM (BEAKER) (test 3.6 meq/L 3.5-5.1 klal=624) CHLORIDE (BEAKER) (test 102 meq/L 98-107 qhqx=485) CO2 (BEAKER) (test 27 meq/L 22-29 zmnv=521) BLOOD UREA NITROGEN 13 mg/dL 7-21 (BEAKER) (test blfy=552) CREATININE (BEAKER) (test 0.70 mg/dL 0.57-1.25 pytb=841) GLUCOSE RANDOM (BEAKER) 90 mg/dL 70-105 (test zwdm=596) CALCIUM (BEAKER) (test 9.2 mg/dL 8.4-10.2 ougk=752) EGFR (BEAKER) (test 80 mL/min/1.73 sq m ESTIMATED GFR IS NOT knyt=0855) ACCURATE CREATININE CLEARANCE IN PREDICTING GLOMERULAR FILTRATION RATE. ESTIMATED GFR IS NOT APPLICABLE FOR DIALYSIS PATIENTS. CBC W/PLT COUNT & AUTO [id number] 05:48:00 Test Item Value Reference Range Comments WHITE BLOOD CELL COUNT (BEAKER) (test ocoz=783) 9.7 K/ L 3.5-10.5 RED BLOOD CELL COUNT (BEAKER) (test umbl=677) 3.69 M/ L 3.93-5.22 HEMOGLOBIN (BEAKER) (test einc=803) 10.5 GM/DL 11.2-15.7 HEMATOCRIT (BEAKER) (test clod=357) 35.2 % 34.1-44.9 MEAN CORPUSCULAR VOLUME (BEAKER) (test vzzd=575) 95.4 fL 79.4-94.8 MEAN CORPUSCULAR HEMOGLOBIN (BEAKER) (test 28.5 pg 25.6-32.2 yczg=567) MEAN CORPUSCULAR HEMOGLOBIN CONC (BEAKER) (test 29.8 GM/DL 32.2-35.5 hmwb=768) RED CELL DISTRIBUTION WIDTH (BEAKER) (test 14.6 % 11.7-14.4 blda=187) PLATELET COUNT (BEAKER) (test qsiw=351) 321 K/CU MM 150-450 MEAN PLATELET VOLUME (BEAKER) (test gvck=910) 10.6 fL 9.4-12.3 NUCLEATED RED BLOOD CELLS (BEAKER) (test 0 /100 WBC 0-0 ptpo=136) NEUTROPHILS RELATIVE PERCENT (BEAKER) (test 73 % yvqu=447) LYMPHOCYTES RELATIVE PERCENT (BEAKER) (test 15 % vybd=480) MONOCYTES RELATIVE PERCENT (BEAKER) (test 7 % stex=327) EOSINOPHILS RELATIVE PERCENT (BEAKER) (test 3 % ulsx=090) BASOPHILS RELATIVE PERCENT (BEAKER) (test 1 % grrn=187) NEUTROPHILS ABSOLUTE COUNT (BEAKER) (test 7.06 K/ L 1.56-6.13 odvh=377) LYMPHOCYTES ABSOLUTE COUNT (BEAKER) (test 1.42 K/ L 1.18-3.74 soea=014) MONOCYTES ABSOLUTE COUNT (BEAKER) (test 0.71 K/ L 0.24-0.36 zxpd=297) EOSINOPHILS ABSOLUTE COUNT (BEAKER) (test 0.27 K/ L 0.04-0.36 dusn=245) BASOPHILS ABSOLUTE COUNT (BEAKER) (test 0.05 K/ L 0.01-0.08 ppcf=337) IMMATURE GRANULOCYTES-RELATIVE PERCENT (BEAKER) 2 % 0-1 (test cuhf=2773) POCT-GLUCOSE [id number] 21:47:00 Test Item Value Reference Range Comments POC-GLUCOSE METER (BEAKER) 161 mg/dL 70-110 TESTED AT [address] (test szys=6975) [facility] [address] POCT-GLUCOSE [id number] 17:08:00 Test Item Value Reference Range Comments POC-GLUCOSE METER (BEAKER) 189 mg/dL 70-110 TESTED AT [address] (test nmau=8794) [facility] [address] POCT-GLUCOSE [id number] 11:12:00 Test Item Value Reference Range Comments POC-GLUCOSE METER (BEAKER) 197 mg/dL 70-110 TESTED AT [address] (test bska=8372) [place] [id number] POCT-GLUCOSE [id number] 07:35:00 Test Item Value Reference Range Comments POC-GLUCOSE METER (BEAKER) 113 mg/dL 70-110 TESTED AT [facility] [address] [facility] (test dqfo=3567) [facility] [address] BASIC METABOLIC [id number] 06:23:00 Test Item Value Reference Range Comments SODIUM (BEAKER) (test 137 meq/L 136-145 mhpz=188) POTASSIUM (BEAKER) (test 4.3 meq/L 3.5-5.1 fkax=406) CHLORIDE (BEAKER) (test 101 meq/L 98-107 dprm=188) CO2 (BEAKER) (test 26 meq/L 22-29 uraf=001) BLOOD UREA NITROGEN 12 mg/dL 7-21 (BEAKER) (test igzw=111) CREATININE (BEAKER) (test 0.70 mg/dL 0.57-1.25 chhl=692) GLUCOSE RANDOM (BEAKER) 91 mg/dL 70-105 (test yazp=469) CALCIUM (BEAKER) (test 9.3 mg/dL 8.4-10.2 ybhb=471) EGFR (BEAKER) (test 80 mL/min/1.73 sq m ESTIMATED GFR IS NOT mobf=9643) ACCURATE CREATININE CLEARANCE IN PREDICTING GLOMERULAR FILTRATION RATE. ESTIMATED GFR IS NOT APPLICABLE FOR DIALYSIS PATIENTS. CBC W/PLT COUNT & AUTO [id number] 06:12:00 Test Item Value Reference Range Comments WHITE BLOOD CELL COUNT (BEAKER) (test bhbx=719) 11.9 K/ L 3.5-10.5 RED BLOOD CELL COUNT (BEAKER) (test fulh=785) 3.65 M/ L 3.93-5.22 HEMOGLOBIN (BEAKER) (test gngn=561) 10.7 GM/DL 11.2-15.7 HEMATOCRIT (BEAKER) (test tgwy=580) 35.3 % 34.1-44.9 MEAN CORPUSCULAR VOLUME (BEAKER) (test xfxj=189) 96.7 fL 79.4-94.8 MEAN CORPUSCULAR HEMOGLOBIN (BEAKER) (test 29.3 pg 25.6-32.2 wsmb=396) MEAN CORPUSCULAR HEMOGLOBIN CONC (BEAKER) (test 30.3 GM/DL 32.2-35.5 zcvd=247) RED CELL DISTRIBUTION WIDTH (BEAKER) (test 14.6 % 11.7-14.4 kcaq=655) PLATELET COUNT (BEAKER) (test twxx=589) 277 K/CU MM 150-450 MEAN PLATELET VOLUME (BEAKER) (test otna=021) 10.8 fL 9.4-12.3 NUCLEATED RED BLOOD CELLS (BEAKER) (test 0 /100 WBC 0-0 jxow=878) NEUTROPHILS RELATIVE PERCENT (BEAKER) (test 77 % atsa=048) LYMPHOCYTES RELATIVE PERCENT (BEAKER) (test 10 % avei=650) MONOCYTES RELATIVE PERCENT (BEAKER) (test 7 % lsbs=845) EOSINOPHILS RELATIVE PERCENT (BEAKER) (test 2 % xwal=291) BASOPHILS RELATIVE PERCENT (BEAKER) (test 1 % mkix=822) NEUTROPHILS ABSOLUTE COUNT (BEAKER) (test 9.13 K/ L 1.56-6.13 fkwg=132) LYMPHOCYTES ABSOLUTE COUNT (BEAKER) (test 1.19 K/ L 1.18-3.74 nsoh=634) MONOCYTES ABSOLUTE COUNT (BEAKER) (test 0.87 K/ L 0.24-0.36 zhcn=487) EOSINOPHILS ABSOLUTE COUNT (BEAKER) (test 0.26 K/ L 0.04-0.36 iicf=523) BASOPHILS ABSOLUTE COUNT (BEAKER) (test 0.06 K/ L 0.01-0.08 qsje=604) IMMATURE GRANULOCYTES-RELATIVE PERCENT (BEAKER) 3 % 0-1 (test cbiy=2618) POCT-GLUCOSE [id number] 21:04:00 Test Item Value Reference Range Comments POC-GLUCOSE METER (BEAKER) 143 mg/dL 70-110 TESTED AT [address] (test ljjt=3272) [place] [id number] POCT-GLUCOSE [id number] 17:04:00 Test Item Value Reference Range Comments POC-GLUCOSE METER (BEAKER) 182 mg/dL 70-110 TESTED AT [address] (test kmvy=6812) [facility] [address] SPIN/CONCENTRATION [id number] 15:07:00 Test Item Value Reference Range Comments CONCENTRATION CHARGED (BEAKER) (test nrwv=5982) Done POCT-GLUCOSE [id number] 11:38:00 Test Item Value Reference Range Comments POC-GLUCOSE METER (BEAKER) 141 mg/dL 70-110 TESTED AT [facility] [address] [facility] (test wjqi=6713) [facility] [address] POCT-GLUCOSE [id number] 08:13:00 Test Item Value Reference Range Comments POC-GLUCOSE METER (BEAKER) 122 mg/dL 70-110 TESTED AT [facility] [address] [facility] (test aplh=3436) [facility] [address] BASIC METABOLIC [id number] 05:20:00 Test Item Value Reference Range Comments SODIUM (BEAKER) (test 138 meq/L 136-145 odhw=598) POTASSIUM (BEAKER) (test 3.8 meq/L 3.5-5.1 qmpl=983) CHLORIDE (BEAKER) (test 102 meq/L 98-107 efqo=483) CO2 (BEAKER) (test 28 meq/L 22-29 vhpa=419) BLOOD UREA NITROGEN 12 mg/dL 7-21 (BEAKER) (test zsal=826) CREATININE (BEAKER) (test 0.72 mg/dL 0.57-1.25 ezfz=600) GLUCOSE RANDOM (BEAKER) 104 mg/dL 70-105 (test jpit=432) CALCIUM (BEAKER) (test 8.5 mg/dL 8.4-10.2 smcz=412) EGFR (BEAKER) (test 77 mL/min/1.73 sq m ESTIMATED GFR IS NOT ohlp=8873) ACCURATE CREATININE CLEARANCE IN PREDICTING GLOMERULAR FILTRATION RATE. ESTIMATED GFR IS NOT APPLICABLE FOR DIALYSIS PATIENTS. CBC W/PLT COUNT & AUTO [id number] 04:58:00 Test Item Value Reference Range Comments WHITE BLOOD CELL COUNT (BEAKER) (test rgsw=087) 11.5 K/ L 3.5-10.5 RED BLOOD CELL COUNT (BEAKER) (test irlo=550) 3.63 M/ L 3.93-5.22 HEMOGLOBIN (BEAKER) (test ufpx=812) 10.3 GM/DL 11.2-15.7 HEMATOCRIT (BEAKER) (test zmdt=616) 34.4 % 34.1-44.9 MEAN CORPUSCULAR VOLUME (BEAKER) (test spma=454) 94.8 fL 79.4-94.8 MEAN CORPUSCULAR HEMOGLOBIN (BEAKER) (test 28.4 pg 25.6-32.2 vxxh=549) MEAN CORPUSCULAR HEMOGLOBIN CONC (BEAKER) (test 29.9 GM/DL 32.2-35.5 stnn=383) RED CELL DISTRIBUTION WIDTH (BEAKER) (test 14.8 % 11.7-14.4 wccb=211) PLATELET COUNT (BEAKER) (test ikga=483) 266 K/CU MM 150-450 MEAN PLATELET VOLUME (BEAKER) (test aauz=203) 10.8 fL 9.4-12.3 NUCLEATED RED BLOOD CELLS (BEAKER) (test 0 /100 WBC 0-0 cpms=173) NEUTROPHILS RELATIVE PERCENT (BEAKER) (test 79 % pdgy=691) LYMPHOCYTES RELATIVE PERCENT (BEAKER) (test 8 % yylg=207) MONOCYTES RELATIVE PERCENT (BEAKER) (test 7 % cypn=903) EOSINOPHILS RELATIVE PERCENT (BEAKER) (test 2 % gwoh=168) BASOPHILS RELATIVE PERCENT (BEAKER) (test 1 % vjnh=876) NEUTROPHILS ABSOLUTE COUNT (BEAKER) (test 9.09 K/ L 1.56-6.13 uibv=279) LYMPHOCYTES ABSOLUTE COUNT (BEAKER) (test 0.90 K/ L 1.18-3.74 waih=617) MONOCYTES ABSOLUTE COUNT (BEAKER) (test 0.76 K/ L 0.24-0.36 pefr=452) EOSINOPHILS ABSOLUTE COUNT (BEAKER) (test 0.27 K/ L 0.04-0.36 znet=442) BASOPHILS ABSOLUTE COUNT (BEAKER) (test 0.08 K/ L 0.01-0.08 zcya=057) IMMATURE GRANULOCYTES-RELATIVE PERCENT (BEAKER) 4 % 0-1 (test rkie=6765) POCT-GLUCOSE [id number] 21:18:00 Test Item Value Reference Range Comments POC-GLUCOSE METER (BEAKER) 147 mg/dL 70-110 TESTED AT [address] (test jaua=2179) [facility] [address] TISSUE [id number] 15:55:00Surgical Pathology Report Case: [id number] Authorizing Provider: Billy Mcmanus, Collected: 03/18/2018 [place]6 OrderingLocation: [facility] Received: 2017 1131 PERIOPERATIVE SERVICES Pathologist: Chris Caraballo MD Specimen: Plaque, AORTIC PLAQUE AORTA, ATHERECTOMY:CALCIFIC ATHEROSCLEROTIC PLAQUE Signing Pathologist Direct Phone Line: [phone] by Chris Caraballo MD on 03/25/2018 at 3:55 [id number]; [id number] plaque Received in saline labeled "plaque", description "aortic plaque" is a 4.5 x 3.5 x 0.6 cm aggregate of felix-white to yellow-panchal, rubbery, calcified fibrous tissue.Electrical Test Engineer sections are submitted in cassette A1 for decalcification. DB/ew PerformedPOTASSIUM-STAT [id number] 11:04:00 Test Item Value Reference Range Comments POTASSIUM (BEAKER) (test imsc=640) 3.0 meq/L 3.6-5.5 HGB/HCT (H&H) - STAT [id number] 11:04:00 Test Item Value Reference Range Comments HEMOGLOBIN (BEAKER) (test ahmn=534) 11.2 g/dL 12.0-15.0 HEMATOCRIT (BEAKER) (test wamb=758) 33.0 % 36.0-45.0 GLUCOSE-STAT [id number] 11:04:00 Test Item Value Reference Range Comments GLUCOSE RANDOM (BEAKER) (test yftd=535) 116 mg/dL 70-110 POCT-GLUCOSE [id number] 07:01:00 Test Item Value Reference Range Comments POC-GLUCOSE METER (BEAKER) 91 mg/dL 70-110 TESTED AT [facility] [address] [facility] (test uosd=1798) [facility] [address] BASIC METABOLIC [id number] 05:12:00 Test Item Value Reference Range Comments SODIUM (BEAKER) (test 140 meq/L 136-145 gqes=966) POTASSIUM (BEAKER) (test 4.0 meq/L 3.5-5.1 gini=004) CHLORIDE (BEAKER) (test 100 meq/L 98-107 gkvj=099) CO2 (BEAKER) (test 34 meq/L 22-29 tkas=693) BLOOD UREA NITROGEN 14 mg/dL 7-21 (BEAKER) (test pxou=207) CREATININE (BEAKER) (test 0.75 mg/dL 0.57-1.25 dser=005) GLUCOSE RANDOM (BEAKER) 100 mg/dL 70-105 (test fxxq=571) CALCIUM (BEAKER) (test 9.2 mg/dL 8.4-10.2 aakz=642) EGFR (BEAKER) (test 74 mL/min/1.73 sq m ESTIMATED GFR IS NOT yjim=2958) ACCURATE CREATININE CLEARANCE IN PREDICTING GLOMERULAR FILTRATION RATE. ESTIMATED GFR IS NOT APPLICABLE FOR DIALYSIS PATIENTS. CBC W/PLT COUNT & AUTO [id number] 04:36:00 Test Item Value Reference Range Comments WHITE BLOOD CELL COUNT (BEAKER) (test qfkv=663) 11.1 K/ L 3.5-10.5 RED BLOOD CELL COUNT (BEAKER) (test gdib=309) 3.57 M/ L 3.93-5.22 HEMOGLOBIN (BEAKER) (test vcdy=003) 10.3 GM/DL 11.2-15.7 HEMATOCRIT (BEAKER) (test abjz=953) 33.8 % 34.1-44.9 MEAN CORPUSCULAR VOLUME (BEAKER) (test etpm=794) 94.7 fL 79.4-94.8 MEAN CORPUSCULAR HEMOGLOBIN (BEAKER) (test 28.9 pg 25.6-32.2 jmbd=642) MEAN CORPUSCULAR HEMOGLOBIN CONC (BEAKER) (test 30.5 GM/DL 32.2-35.5 well=646) RED CELL DISTRIBUTION WIDTH (BEAKER) (test 14.6 % 11.7-14.4 ikmt=462) PLATELET COUNT (BEAKER) (test pqva=190) 244 K/CU MM 150-450 MEAN PLATELET VOLUME (BEAKER) (test numg=383) 10.7 fL 9.4-12.3 NUCLEATED RED BLOOD CELLS (BEAKER) (test 1 /100 WBC 0-0 cquu=491) NEUTROPHILS RELATIVE PERCENT (BEAKER) (test 72 % ivpd=730) LYMPHOCYTES RELATIVE PERCENT (BEAKER) (test 13 % dhal=896) MONOCYTES RELATIVE PERCENT (BEAKER) (test 9 % psiu=959) EOSINOPHILS RELATIVE PERCENT (BEAKER) (test 2 % ciyr=872) BASOPHILS RELATIVE PERCENT (BEAKER) (test 1 % tkgo=075) NEUTROPHILS ABSOLUTE COUNT (BEAKER) (test 7.91 K/ L 1.56-6.13 yvzw=153) LYMPHOCYTES ABSOLUTE COUNT (BEAKER) (test 1.45 K/ L 1.18-3.74 fzes=635) MONOCYTES ABSOLUTE COUNT (BEAKER) (test 1.00 K/ L 0.24-0.36 lyhb=605) EOSINOPHILS ABSOLUTE COUNT (BEAKER) (test 0.21 K/ L 0.04-0.36 phlp=469) BASOPHILS ABSOLUTE COUNT (BEAKER) (test 0.07 K/ L 0.01-0.08 wfio=442) IMMATURE GRANULOCYTES-RELATIVE PERCENT (BEAKER) 4 % 0-1 (test mxkl=9324) POCT-GLUCOSE [id number] 21:06:00 Test Item Value Reference Range Comments POC-GLUCOSE METER (BEAKER) 152 mg/dL 70-110 TESTED AT [address] (test sqeu=3205) [place] [id number] POCT-GLUCOSE [id number] 17:43:00 Test Item Value Reference Range Comments POC-GLUCOSE METER (BEAKER) 155 mg/dL 70-110 TESTED AT [address] (test webj=4809) [place] [id number] POCT-GLUCOSE [id number] 12:30:00 Test Item Value Reference Range Comments POC-GLUCOSE METER (BEAKER) 167 mg/dL 70-110 TESTED AT [address] (test rybs=5113) [facility] [address] POCT-GLUCOSE [id number] 07:13:00 Test Item Value Reference Range Comments POC-GLUCOSE METER (BEAKER) 111 mg/dL 70-110 TESTED AT [address] (test irza=7453) [facility] [address] BASIC METABOLIC [id number] 05:33:00 Test Item Value Reference Range Comments SODIUM (BEAKER) (test 139 meq/L 136-145 jlax=304) POTASSIUM (BEAKER) (test 3.9 meq/L 3.5-5.1 noxf=684) CHLORIDE (BEAKER) (test 102 meq/L 98-107 idfe=244) CO2 (BEAKER) (test 29 meq/L 22-29 fuws=112) BLOOD UREA NITROGEN 17 mg/dL 7-21 (BEAKER) (test jrty=466) CREATININE (BEAKER) (test 0.72 mg/dL 0.57-1.25 rjjp=131) GLUCOSE RANDOM (BEAKER) 114 mg/dL 70-105 (test zmnk=092) CALCIUM (BEAKER) (test 8.8 mg/dL 8.4-10.2 jzvi=547) EGFR (BEAKER) (test 77 mL/min/1.73 sq m ESTIMATED GFR IS NOT qpjx=4236) ACCURATE CREATININE CLEARANCE IN PREDICTING GLOMERULAR FILTRATION RATE. ESTIMATED GFR IS NOT APPLICABLE FOR DIALYSIS PATIENTS. CBC W/PLT COUNT & AUTO [id number] 04:58:00 Test Item Value Reference Range Comments WHITE BLOOD CELL COUNT (BEAKER) (test djct=890) 9.9 K/ L 3.5-10.5 RED BLOOD CELL COUNT (BEAKER) (test cftm=870) 3.54 M/ L 3.93-5.22 HEMOGLOBIN (BEAKER) (test eqgf=138) 10.2 GM/DL 11.2-15.7 HEMATOCRIT (BEAKER) (test oxtl=156) 33.7 % 34.1-44.9 MEAN CORPUSCULAR VOLUME (BEAKER) (test bquc=825) 95.2 fL 79.4-94.8 MEAN CORPUSCULAR HEMOGLOBIN (BEAKER) (test 28.8 pg 25.6-32.2 hluv=161) MEAN CORPUSCULAR HEMOGLOBIN CONC (BEAKER) (test 30.3 GM/DL 32.2-35.5 cvyg=250) RED CELL DISTRIBUTION WIDTH (BEAKER) (test 14.4 % 11.7-14.4 uuij=793) PLATELET COUNT (BEAKER) (test ysct=576) 226 K/CU MM 150-450 MEAN PLATELET VOLUME (BEAKER) (test ffav=192) 11.2 fL 9.4-12.3 NUCLEATED RED BLOOD CELLS (BEAKER) (test 0 /100 WBC 0-0 bumw=253) NEUTROPHILS RELATIVE PERCENT (BEAKER) (test 73 % cffh=442) LYMPHOCYTES RELATIVE PERCENT (BEAKER) (test 14 % pumc=581) MONOCYTES RELATIVE PERCENT (BEAKER) (test 9 % xrcx=054) EOSINOPHILS RELATIVE PERCENT (BEAKER) (test 2 % etau=092) BASOPHILS RELATIVE PERCENT (BEAKER) (test 1 % hwil=627) NEUTROPHILS ABSOLUTE COUNT (BEAKER) (test 7.15 K/ L 1.56-6.13 xwyl=824) LYMPHOCYTES ABSOLUTE COUNT (BEAKER) (test 1.36 K/ L 1.18-3.74 cfkp=430) MONOCYTES ABSOLUTE COUNT (BEAKER) (test 0.87 K/ L 0.24-0.36 hwtm=553) EOSINOPHILS ABSOLUTE COUNT (BEAKER) (test 0.18 K/ L 0.04-0.36 ujsz=385) BASOPHILS ABSOLUTE COUNT (BEAKER) (test 0.07 K/ L 0.01-0.08 upvp=802) IMMATURE GRANULOCYTES-RELATIVE PERCENT (BEAKER) 2 % 0-1 (test abeq=3568) POCT-GLUCOSE [id number] 20:59:00 Test Item Value Reference Range Comments POC-GLUCOSE METER (BEAKER) 178 mg/dL 70-110 TESTED AT [address] (test gavu=8172) [place] [id number] POCT-GLUCOSE [id number] 18:18:00 Test Item Value Reference Range Comments POC-GLUCOSE METER (BEAKER) 137 mg/dL 70-110 TESTED AT [address] (test aafy=2958) [facility] [address] RAD, SPINE, LUMBAR, COMPLETE (MIN 4 VIEWS)2018-03-23 [...] MDReport Verified Date/Time: 03/23/2018 16:25:16 Reading Location: [facility] C0X Ortho Consult Reading Room SPUTUM CULTURE + GRAM [id number] 10:41:00 Test Item Value Reference Range Comments CULTURE (BEAKER) (test 3+ Normal respiratory anu pljk=2141) present GRAM STAIN RESULT (BEAKER) <1+ WBCs (test cgqn=2925) GRAM STAIN RESULT (BEAKER) 10-15 epithelial cells (test cygp=06179) GRAM STAIN RESULT (BEAKER) 1+ gram positive cocci in pairs (test htam=44392) POCT-GLUCOSE [id number] 08:09:00 Test Item Value Reference Range Comments POC-GLUCOSE METER (BEAKER) 94 mg/dL 70-110 TESTED AT [facility] [address] (test kgim=8338) [facility] [address] BASIC METABOLIC [id number] 06:23:00 Test Item Value Reference Range Comments SODIUM (BEAKER) (test 142 meq/L 136-145 bzcv=646) POTASSIUM (BEAKER) (test 3.3 meq/L 3.5-5.1 yafe=614) CHLORIDE (BEAKER) (test 102 meq/L 98-107 gpkm=544) CO2 (BEAKER) (test 27 meq/L 22-29 fksn=798) BLOOD UREA NITROGEN 17 mg/dL 7-21 (BEAKER) (test bwpj=512) CREATININE (BEAKER) (test 0.69 mg/dL 0.57-1.25 ubil=538) GLUCOSE RANDOM (BEAKER) 81 mg/dL 70-105 (test iwps=466) CALCIUM (BEAKER) (test 9.4 mg/dL 8.4-10.2 umxz=696) EGFR (BEAKER) (test 81 mL/min/1.73 sq m ESTIMATED GFR IS NOT eipa=7804) ACCURATE CREATININE CLEARANCE IN PREDICTING GLOMERULAR FILTRATION RATE. ESTIMATED GFR IS NOT APPLICABLE FOR DIALYSIS PATIENTS. CBC W/PLT COUNT & AUTO [id number] 06:00:00 Test Item Value Reference Range Comments WHITE BLOOD CELL COUNT (BEAKER) (test wwxb=425) 8.2 K/ L 3.5-10.5 RED BLOOD CELL COUNT (BEAKER) (test lvjo=709) 4.03 M/ L 3.93-5.22 HEMOGLOBIN (BEAKER) (test fqal=143) 11.5 GM/DL 11.2-15.7 HEMATOCRIT (BEAKER) (test mopy=289) 38.6 % 34.1-44.9 MEAN CORPUSCULAR VOLUME (BEAKER) (test kduv=729) 95.8 fL 79.4-94.8 MEAN CORPUSCULAR HEMOGLOBIN (BEAKER) (test 28.5 pg 25.6-32.2 vtey=404) MEAN CORPUSCULAR HEMOGLOBIN CONC (BEAKER) (test 29.8 GM/DL 32.2-35.5 lvbr=016) RED CELL DISTRIBUTION WIDTH (BEAKER) (test 14.5 % 11.7-14.4 nvow=711) PLATELET COUNT (BEAKER) (test ryoz=388) 214 K/CU MM 150-450 MEAN PLATELET VOLUME (BEAKER) (test uvxm=611) 11.5 fL 9.4-12.3 NUCLEATED RED BLOOD CELLS (BEAKER) (test 0 /100 WBC 0-0 cqdf=422) NEUTROPHILS RELATIVE PERCENT (BEAKER) (test 71 % fshp=222) LYMPHOCYTES RELATIVE PERCENT (BEAKER) (test 17 % uyja=914) MONOCYTES RELATIVE PERCENT (BEAKER) (test 8 % fwmv=931) EOSINOPHILS RELATIVE PERCENT (BEAKER) (test 3 % fkxs=528) BASOPHILS RELATIVE PERCENT (BEAKER) (test 1 % lcfp=599) NEUTROPHILS ABSOLUTE COUNT (BEAKER) (test 5.84 K/ L 1.56-6.13 mejt=897) LYMPHOCYTES ABSOLUTE COUNT (BEAKER) (test 1.36 K/ L 1.18-3.74 fgzt=956) MONOCYTES ABSOLUTE COUNT (BEAKER) (test 0.63 K/ L 0.24-0.36 nqbz=791) EOSINOPHILS ABSOLUTE COUNT (BEAKER) (test 0.24 K/ L 0.04-0.36 wrpa=926) BASOPHILS ABSOLUTE COUNT (BEAKER) (test 0.07 K/ L 0.01-0.08 evay=930) IMMATURE GRANULOCYTES-RELATIVE PERCENT (BEAKER) 1 % 0-1 (test fygw=5872) POCT-GLUCOSE [id number] 21:32:00 Test Item Value Reference Range Comments POC-GLUCOSE METER (BEAKER) 238 mg/dL 70-110 TESTED AT [address] (test mbih=8337) [place] [id number] POCT-GLUCOSE [id number] 12:11:00 Test Item Value Reference Range Comments POC-GLUCOSE METER (BEAKER) 102 mg/dL 70-110 TESTED AT [address] (test nien=8902) [place] [id number] POCT-GLUCOSE [id number] 07:49:00 Test Item Value Reference Range Comments POC-GLUCOSE METER (BEAKER) 93 mg/dL 70-110 TESTED AT [address] (test mwto=3781) [place] [address] BASIC METABOLIC [id number] 06:14:00 Test Item Value Reference Range Comments SODIUM (BEAKER) (test 142 meq/L 136-145 cggn=792) POTASSIUM (BEAKER) (test 4.6 meq/L 3.5-5.1 zhhw=668) CHLORIDE (BEAKER) (test 103 meq/L 98-107 yxwg=834) CO2 (BEAKER) (test 32 meq/L 22-29 tvii=780) BLOOD UREA NITROGEN 18 mg/dL 7-21 (BEAKER) (test wogq=237) CREATININE (BEAKER) (test 0.73 mg/dL 0.57-1.25 wtlr=968) GLUCOSE RANDOM (BEAKER) 78 mg/dL 70-105 (test otpp=761) CALCIUM (BEAKER) (test 9.3 mg/dL 8.4-10.2 pwoc=548) EGFR (BEAKER) (test 76 mL/min/1.73 sq m ESTIMATED GFR IS NOT fucq=6998) ACCURATE CREATININE CLEARANCE IN PREDICTING GLOMERULAR FILTRATION RATE. ESTIMATED GFR IS NOT APPLICABLE FOR DIALYSIS PATIENTS. CBC W/PLT COUNT & AUTO [id number] 05:44:00 Test Item Value Reference Range Comments WHITE BLOOD CELL COUNT (BEAKER) (test zirq=829) 9.0 K/ L 3.5-10.5 RED BLOOD CELL COUNT (BEAKER) (test mwhq=232) 3.81 M/ L 3.93-5.22 HEMOGLOBIN (BEAKER) (test poth=041) 10.8 GM/DL 11.2-15.7 HEMATOCRIT (BEAKER) (test jpxr=239) 36.8 % 34.1-44.9 MEAN CORPUSCULAR VOLUME (BEAKER) (test zici=372) 96.6 fL 79.4-94.8 MEAN CORPUSCULAR HEMOGLOBIN (BEAKER) (test 28.3 pg 25.6-32.2 eooj=455) MEAN CORPUSCULAR HEMOGLOBIN CONC (BEAKER) (test 29.3 GM/DL 32.2-35.5 uyet=335) RED CELL DISTRIBUTION WIDTH (BEAKER) (test 14.7 % 11.7-14.4 yvop=734) PLATELET COUNT (BEAKER) (test rdpq=555) 178 K/CU MM 150-450 MEAN PLATELET VOLUME (BEAKER) (test egus=993) 11.6 fL 9.4-12.3 NUCLEATED RED BLOOD CELLS (BEAKER) (test 0 /100 WBC 0-0 yxnh=274) NEUTROPHILS RELATIVE PERCENT (BEAKER) (test 75 % ndur=457) LYMPHOCYTES RELATIVE PERCENT (BEAKER) (test 14 % keoe=868) MONOCYTES RELATIVE PERCENT (BEAKER) (test 7 % tvst=870) EOSINOPHILS RELATIVE PERCENT (BEAKER) (test 3 % fvtk=978) BASOPHILS RELATIVE PERCENT (BEAKER) (test 1 % eesi=294) NEUTROPHILS ABSOLUTE COUNT (BEAKER) (test 6.69 K/ L 1.56-6.13 najp=873) LYMPHOCYTES ABSOLUTE COUNT (BEAKER) (test 1.29 K/ L 1.18-3.74 djix=852) MONOCYTES ABSOLUTE COUNT (BEAKER) (test 0.65 K/ L 0.24-0.36 xrxz=548) EOSINOPHILS ABSOLUTE COUNT (BEAKER) (test 0.22 K/ L 0.04-0.36 hqto=069) BASOPHILS ABSOLUTE COUNT (BEAKER) (test 0.05 K/ L 0.01-0.08 cmka=220) IMMATURE GRANULOCYTES-RELATIVE PERCENT (BEAKER) 1 % 0-1 (test wmjg=7449) POCT-GLUCOSE [id number] 21:06:00 Test Item Value Reference Range Comments POC-GLUCOSE METER (BEAKER) 116 mg/dL 70-110 TESTED AT [address] (test xcmt=3352) [place] [address] POCT-GLUCOSE [id number] 16:33:00 Test Item Value Reference Range Comments POC-GLUCOSE METER (BEAKER) 138 mg/dL 70-110 TESTED AT [address] (test bpyk=5639) [place] [address] POCT-GLUCOSE [id number] 12:15:00 Test Item Value Reference Range Comments POC-GLUCOSE METER (BEAKER) 150 mg/dL 70-110 TESTED AT [address] (test bshg=2846) [place] [address] POCT-GLUCOSE [id number] 09:03:00 Test Item Value Reference Range Comments POC-GLUCOSE METER (BEAKER) 101 mg/dL 70-110 TESTED AT [address] (test bypy=3980) [place] [address] RAD, CHEST, 1 VIEW, NON [id number] 08:03:00Reason for exam:->post cardiovascular procedureShould this be [...] aspiration cannot be excluded. Signed: Freya Turcios MDReport Verified Date/ Time: 03/21/2018 08:03:21 Reading Location: [facility] Diagnostic Imaging Reading Room - [place] [address] Electronically signed by: FREYA TURCIOS M.D. on 2017 08:03 [id number] 04:37:00 Test Item Value Reference Range Comments MAGNESIUM (BEAKER) (test 1.9 mg/dL 1.6-2.6 Specimen slightly hemolyzed lyre=340) BASIC METABOLIC [id number] 04:37:00 Test Item Value Reference Range Comments SODIUM (BEAKER) (test 141 meq/L 136-145 vemz=267) POTASSIUM (BEAKER) (test 4.0 meq/L 3.5-5.1 Specimen slightly opzb=107) hemolyzed CHLORIDE (BEAKER) (test 104 meq/L 98-107 xspv=312) CO2 (BEAKER) (test 27 meq/L 22-29 xfcl=387) BLOOD UREA NITROGEN 28 mg/dL 7-21 (BEAKER) (test jvud=005) CREATININE (BEAKER) (test 0.81 mg/dL 0.57-1.25 Specimen slightly yxkt=101) hemolyzed GLUCOSE RANDOM (BEAKER) 124 mg/dL 70-105 (test vxmh=177) CALCIUM (BEAKER) (test 9.8 mg/dL 8.4-10.2 uunx=984) EGFR (BEAKER) (test 68 mL/min/1.73 sq m ESTIMATED GFR IS NOT qrvi=6403) ACCURATE CREATININE CLEARANCE IN PREDICTING GLOMERULAR FILTRATION RATE. ESTIMATED GFR IS NOT APPLICABLE FOR DIALYSIS PATIENTS. CBC W/PLT COUNT & AUTO [id number] 04:27:00 Test Item Value Reference Range Comments WHITE BLOOD CELL COUNT (BEAKER) (test ynzw=890) 13.9 K/ L 3.5-10.5 RED BLOOD CELL COUNT (BEAKER) (test ryxg=049) 3.73 M/ L 3.93-5.22 HEMOGLOBIN (BEAKER) (test gfme=478) 11.1 GM/DL 11.2-15.7 HEMATOCRIT (BEAKER) (test fgga=415) 35.4 % 34.1-44.9 MEAN CORPUSCULAR VOLUME (BEAKER) (test pntm=031) 94.9 fL 79.4-94.8 MEAN CORPUSCULAR HEMOGLOBIN (BEAKER) (test 29.8 pg 25.6-32.2 nbce=606) MEAN CORPUSCULAR HEMOGLOBIN CONC (BEAKER) (test 31.4 GM/DL 32.2-35.5 jvbj=965) RED CELL DISTRIBUTION WIDTH (BEAKER) (test 14.8 % 11.7-14.4 ypbt=851) PLATELET COUNT (BEAKER) (test qnwx=591) 173 K/CU MM 150-450 MEAN PLATELET VOLUME (BEAKER) (test lhds=159) 11.8 fL 9.4-12.3 NUCLEATED RED BLOOD CELLS (BEAKER) (test 0 /100 WBC 0-0 jize=700) NEUTROPHILS RELATIVE PERCENT (BEAKER) (test 90 % lxqc=001) LYMPHOCYTES RELATIVE PERCENT (BEAKER) (test 5 % ybia=021) MONOCYTES RELATIVE PERCENT (BEAKER) (test 4 % oiwq=211) EOSINOPHILS RELATIVE PERCENT (BEAKER) (test 1 % drgm=377) BASOPHILS RELATIVE PERCENT (BEAKER) (test 0 % rbri=588) NEUTROPHILS ABSOLUTE COUNT (BEAKER) (test 12.44 K/ L 1.56-6.13 okoq=893) LYMPHOCYTES ABSOLUTE COUNT (BEAKER) (test 0.67 K/ L 1.18-3.74 zucd=087) MONOCYTES ABSOLUTE COUNT (BEAKER) (test 0.58 K/ L 0.24-0.36 ggjs=233) EOSINOPHILS ABSOLUTE COUNT (BEAKER) (test 0.07 K/ L 0.04-0.36 urcv=299) BASOPHILS ABSOLUTE COUNT (BEAKER) (test 0.04 K/ L 0.01-0.08 bwdb=410) IMMATURE GRANULOCYTES-RELATIVE PERCENT (BEAKER) 1 % 0-1 (test ivrw=7630) POCT-GLUCOSE [id number] 20:59:00 Test Item Value Reference Range Comments POC-GLUCOSE METER (BEAKER) 111 mg/dL 70-110 TESTED AT [address] (test ewkg=4255) [place] [id number] POCT-GLUCOSE [id number] 18:33:00 Test Item Value Reference Range Comments POC-GLUCOSE METER (BEAKER) 101 mg/dL 70-110 TESTED AT [address] (test whsb=5525) [facility] [address] POCT-GLUCOSE [id number] 16:33:00 Test Item Value Reference Range Comments POC-GLUCOSE METER (BEAKER) 128 mg/dL 70-110 TESTED AT [address] (test lfae=0595) [place] [address] POCT-GLUCOSE [id number] 11:35:00 Test Item Value Reference Range Comments POC-GLUCOSE METER (BEAKER) 129 mg/dL 70-110 TESTED AT [address] (test uuxt=9274) [place] [address] HEMOGLOBIN [id number] 08:58:00 Test Item Value Reference Range Comments HEMOGLOBIN A1C (BEAKER) (test vxob=771) 6.0 % 4.3-6.1 RAD, CHEST, 1 VIEW, NON [id number] 08:06:00Reason for exam:->post cardiovascular procedureShould this be performed at the bedside?->YesFINAL REPORT CLINICAL HISTORY: post cardiovascular procedure TECHNIQUE: 1 view of the chest. COMPARISON: 03/19/2018 IMPRESSION: An NGT is again seen. The right central line has been removed. There are no focal airspace opacities or significant appearing effusions. The cardiomediastinal silhouette is magnified by technique with a pacemaker. Signed: Alia Garrettort Verified Date/Time: 03/20/2018 08:06:53 Reading Location: [facility] Radiology Reading Room POCT-GLUCOSE [id number] 06:21:00 Test Item Value Reference Range Comments POC-GLUCOSE METER (BEAKER) 133 mg/dL 70-110 TESTED AT [facility] [address] (test pbpj=3520) [place] [address] [id number] 06:00:00 Test Item Value Reference Range Comments MAGNESIUM (BEAKER) (test udjj=779) 2.0 mg/dL 1.6-2.6 BASIC METABOLIC [id number] 06:00:00 Test Item Value Reference Range Comments SODIUM (BEAKER) (test 144 meq/L 136-145 ahci=532) POTASSIUM (BEAKER) (test 3.9 meq/L 3.5-5.1 fkws=543) CHLORIDE (BEAKER) (test 107 meq/L 98-107 paoy=398) CO2 (BEAKER) (test 27 meq/L 22-29 qcoa=955) BLOOD UREA NITROGEN 36 mg/dL 7-21 (BEAKER) (test mfud=550) CREATININE (BEAKER) (test 0.99 mg/dL 0.57-1.25 nhuq=573) GLUCOSE RANDOM (BEAKER) 123 mg/dL 70-105 (test moxv=649) CALCIUM (BEAKER) (test 9.3 mg/dL 8.4-10.2 qsty=246) EGFR (BEAKER) (test 54 mL/min/1.73 sq m ESTIMATED GFR IS NOT fpre=1821) ACCURATE CREATININE CLEARANCE IN PREDICTING GLOMERULAR FILTRATION RATE. ESTIMATED GFR IS NOT APPLICABLE FOR DIALYSIS PATIENTS. CBC W/PLT COUNT & AUTO [id number] 05:39:00 Test Item Value Reference Range Comments WHITE BLOOD CELL COUNT (BEAKER) (test kgvl=454) 16.0 K/ L 3.5-10.5 RED BLOOD CELL COUNT (BEAKER) (test iero=956) 4.19 M/ L 3.93-5.22 HEMOGLOBIN (BEAKER) (test sbkp=203) 12.0 GM/DL 11.2-15.7 HEMATOCRIT (BEAKER) (test bqix=137) 40.1 % 34.1-44.9 MEAN CORPUSCULAR VOLUME (BEAKER) (test grkg=751) 95.7 fL 79.4-94.8 MEAN CORPUSCULAR HEMOGLOBIN (BEAKER) (test 28.6 pg 25.6-32.2 pukz=301) MEAN CORPUSCULAR HEMOGLOBIN CONC (BEAKER) (test 29.9 GM/DL 32.2-35.5 lyjg=322) RED CELL DISTRIBUTION WIDTH (BEAKER) (test 14.8 % 11.7-14.4 swrw=395) PLATELET COUNT (BEAKER) (test ybuu=019) 166 K/CU MM 150-450 MEAN PLATELET VOLUME (BEAKER) (test pbdq=901) 11.6 fL 9.4-12.3 NUCLEATED RED BLOOD CELLS (BEAKER) (test 0 /100 WBC 0-0 mwcp=523) NEUTROPHILS RELATIVE PERCENT (BEAKER) (test 90 % pwir=923) LYMPHOCYTES RELATIVE PERCENT (BEAKER) (test 4 % ycxk=583) MONOCYTES RELATIVE PERCENT (BEAKER) (test 4 % lfky=330) EOSINOPHILS RELATIVE PERCENT (BEAKER) (test 0 % mkip=235) BASOPHILS RELATIVE PERCENT (BEAKER) (test 0 % jcfd=045) NEUTROPHILS ABSOLUTE COUNT (BEAKER) (test 14.45 K/ L 1.56-6.13 tmxj=265) LYMPHOCYTES ABSOLUTE COUNT (BEAKER) (test 0.66 K/ L 1.18-3.74 lyjw=347) MONOCYTES ABSOLUTE COUNT (BEAKER) (test 0.70 K/ L 0.24-0.36 svsm=402) EOSINOPHILS ABSOLUTE COUNT (BEAKER) (test 0.01 K/ L 0.04-0.36 qtzz=003) BASOPHILS ABSOLUTE COUNT (BEAKER) (test 0.06 K/ L 0.01-0.08 teto=957) IMMATURE GRANULOCYTES-RELATIVE PERCENT (BEAKER) 1 % 0-1 (test yauu=3305) POCT-GLUCOSE [id number] 00:24:00 Test Item Value Reference Range Comments POC-GLUCOSE METER (BEAKER) 117 mg/dL 70-110 TESTED AT [facility] [address] [facility] (test uyoc=9889) [facility] [address] POCT-GLUCOSE [id number] 17:07:00 Test Item Value Reference Range Comments POC-GLUCOSE METER (BEAKER) 132 mg/dL 70-110 TESTED AT [place] [id number] [facility] (test oskn=3015) [facility] [address] RAD, ABDOMEN/KUB, 1 VIEW [id number] 15:02:00Reason for exam:->nausea and eructationsFINAL REPORT TECHNIQUE: [...] the spine. Bones are osteopenic. Signed: Damian Glassort Verified Date/Time: 03/19/2018 15:02:35 Reading Location: [facility] Radiology Reading Room POCT- GLUCOSE [id number] 10:23:00 Test Item Value Reference Range Comments POC-GLUCOSE METER (BEAKER) 111 mg/dL 70-110 TESTED AT [address] (test dxhi=1726) [place] [address] RAD, CHEST, 1 VIEW, NON [id number] 08:26:00Reason for exam:->post cardiovascular procedureShould this be [...] Garrett Verified Date/Time: 03/19/2018 08:26:26 [facility] Rad[facility] Reading Room POCT-GLUCOSE [id number] 06:09:00 Test Item Value Reference Range Comments POC-GLUCOSE METER (BEAKER) 120 mg/dL 70-110 TESTED AT [address] (test jimt=6393) [place] [address] POCT-GLUCOSE [id number] 06:09:00 Test Item Value Reference Range Comments POC-GLUCOSE METER (BEAKER) 120 mg/dL 70-110 TESTED AT [address] (test qmev=1664) [place] [id number] 04:28:00 Test Item Value Reference Range Comments MAGNESIUM (BEAKER) (test 2.2 mg/dL 1.6-2.6 Specimen slightly hemolyzed yhqi=132) BASIC METABOLIC [id number] 04:28:00 Test Item Value Reference Range Comments SODIUM (BEAKER) (test 141 meq/L 136-145 aepm=108) POTASSIUM (BEAKER) (test 3.8 meq/L 3.5-5.1 Specimen slightly daof=450) hemolyzed CHLORIDE (BEAKER) (test 109 meq/L 98-107 ezzo=562) CO2 (BEAKER) (test 24 meq/L 22-29 vond=391) BLOOD UREA NITROGEN 30 mg/dL 7-21 (BEAKER) (test oypf=787) CREATININE (BEAKER) (test 0.86 mg/dL 0.57-1.25 Specimen slightly zrsd=937) hemolyzed GLUCOSE RANDOM (BEAKER) 119 mg/dL 70-105 (test guys=878) CALCIUM (BEAKER) (test 8.9 mg/dL 8.4-10.2 atmw=158) EGFR (BEAKER) (test 63 mL/min/1.73 sq m ESTIMATED GFR IS NOT mobb=4948) ACCURATE CREATININE CLEARANCE IN PREDICTING GLOMERULAR FILTRATION RATE. ESTIMATED GFR IS NOT APPLICABLE FOR DIALYSIS PATIENTS. CBC W/PLT COUNT & AUTO [id number] 04:19:00 Test Item Value Reference Range Comments WHITE BLOOD CELL COUNT (BEAKER) (test cfyx=779) 12.8 K/ L 3.5-10.5 RED BLOOD CELL COUNT (BEAKER) (test njyf=499) 4.54 M/ L 3.93-5.22 HEMOGLOBIN (BEAKER) (test mymz=857) 12.9 GM/DL 11.2-15.7 HEMATOCRIT (BEAKER) (test ocwt=051) 43.3 % 34.1-44.9 MEAN CORPUSCULAR VOLUME (BEAKER) (test eozk=133) 95.4 fL 79.4-94.8 MEAN CORPUSCULAR HEMOGLOBIN (BEAKER) (test 28.4 pg 25.6-32.2 bswx=865) MEAN CORPUSCULAR HEMOGLOBIN CONC (BEAKER) (test 29.8 GM/DL 32.2-35.5 ydhz=710) RED CELL DISTRIBUTION WIDTH (BEAKER) (test 14.8 % 11.7-14.4 hsrc=178) PLATELET COUNT (BEAKER) (test hyre=419) 207 K/CU MM 150-450 MEAN PLATELET VOLUME (BEAKER) (test vvae=012) 11.6 fL 9.4-12.3 NUCLEATED RED BLOOD CELLS (BEAKER) (test 0 /100 WBC 0-0 frzl=714) NEUTROPHILS RELATIVE PERCENT (BEAKER) (test 87 % lahe=400) LYMPHOCYTES RELATIVE PERCENT (BEAKER) (test 6 % hexy=622) MONOCYTES RELATIVE PERCENT (BEAKER) (test 6 % qemz=507) EOSINOPHILS RELATIVE PERCENT (BEAKER) (test 0 % igbr=445) BASOPHILS RELATIVE PERCENT (BEAKER) (test 1 % hnad=970) NEUTROPHILS ABSOLUTE COUNT (BEAKER) (test 11.16 K/ L 1.56-6.13 wsfb=780) LYMPHOCYTES ABSOLUTE COUNT (BEAKER) (test 0.71 K/ L 1.18-3.74 npgs=349) MONOCYTES ABSOLUTE COUNT (BEAKER) (test 0.74 K/ L 0.24-0.36 hqbg=310) EOSINOPHILS ABSOLUTE COUNT (BEAKER) (test 0.02 K/ L 0.04-0.36 noeu=774) BASOPHILS ABSOLUTE COUNT (BEAKER) (test 0.07 K/ L 0.01-0.08 nykx=179) IMMATURE GRANULOCYTES-RELATIVE PERCENT (BEAKER) 1 % 0-1 (test elij=6064) BLOOD GAS, [id number] 04:01:00 Test Item Value Reference Range Comments PH ARTERIAL (BEAKER) (test csxg=580) 7.37 7.35-7.45 PCO2 ARTERIAL (BEAKER) (test stpd=337) 47 mmHg 35-45 PO2 ARTERIAL (BEAKER) (test ssfg=972) 68 mmHg 80-90 O2 SATURATION ARTERIAL (BEAKER) (test ecci=322) 92.4 % 96.0-97.0 HCO3 ARTERIAL (BEAKER) (test pjbi=863) 26 mmol/L 21-29 BASE EXCESS ARTERIAL (BEAKER) (test xwco=480) 0.6 mmol/L -2.0-3.0 PATIENT TEMPERATURE (BEAKER) (test ffiu=7264) 37.4 C FIO2 (BEAKER) (test spxp=0847) 40.0 % BLOOD GAS, [id number] 22:23:00 Test Item Value Reference Range Comments PH ARTERIAL (BEAKER) (test kkym=531) 7.40 7.35-7.45 PCO2 ARTERIAL (BEAKER) (test bdyq=667) 42 mmHg 35-45 PO2 ARTERIAL (BEAKER) (test koyj=397) 150 mmHg 80-90 O2 SATURATION ARTERIAL (BEAKER) (test fxkx=404) 98.9 % 96.0-97.0 HCO3 ARTERIAL (BEAKER) (test btod=789) 25 mmol/L 21-29 BASE EXCESS ARTERIAL (BEAKER) (test agyg=000) 0.2 mmol/L -2.0-3.0 PATIENT TEMPERATURE (BEAKER) (test zdbi=9993) 36.6 C FIO2 (BEAKER) (test lqii=8987) 40.0 % GLUCOSE-STAT [id number] 22:23:00 Test Item Value Reference Range Comments GLUCOSE RANDOM (BEAKER) (test ixlk=271) 140 mg/dL 70-110 [id number] 20:01:00 Test Item Value Reference Range Comments POTASSIUM (BEAKER) (test tyfr=077) 3.7 meq/L 3.5-5.1 8 hours after PO replacement [id number] 20:01:00 Test Item Value Reference Range Comments MAGNESIUM (BEAKER) (test frtc=688) 2.2 mg/dL 1.6-2.6 8 hours after PO replacement completedBLOOD GAS, [id number] 19:27:00 Test Item Value Reference Range Comments PH ARTERIAL (BEAKER) (test smxt=180) 7.40 7.35-7.45 PCO2 ARTERIAL (BEAKER) (test tatx=269) 40 mmHg 35-45 PO2 ARTERIAL (BEAKER) (test mhjh=923) 93 mmHg 80-90 O2 SATURATION ARTERIAL (BEAKER) (test hcjs=123) 97.3 % 96.0-97.0 HCO3 ARTERIAL (BEAKER) (test gjtu=340) 25 mmol/L 21-29 BASE EXCESS ARTERIAL (BEAKER) (test rkrg=067) -0.1 mmol/L -2.0-3.0 PATIENT TEMPERATURE (BEAKER) (test qnje=4136) 36.6 C FIO2 (BEAKER) (test hqgh=4564) 40.0 % POCT-GLUCOSE [id number] 19:09:00 Test Item Value Reference Range Comments POC-GLUCOSE METER (BEAKER) 123 mg/dL 70-110 TESTED AT [address] (test sknp=2291) [place] [id number] POCT-GLUCOSE [id number] 18:02:00 Test Item Value Reference Range Comments POC-GLUCOSE METER (BEAKER) 108 mg/dL 70-110 TESTED AT [address] (test fcjw=5402) [facility] [address] POCT-GLUCOSE [id number] 17:06:00 Test Item Value Reference Range Comments POC-GLUCOSE METER (BEAKER) 103 mg/dL 70-110 TESTED AT [address] (test nltb=1361) [place] [id number] POCT-GLUCOSE [id number] 16:00:00 Test Item Value Reference Range Comments POC-GLUCOSE METER (BEAKER) 121 mg/dL 70-110 TESTED AT [address] (test bmcg=7558) [place] [address] POCT-GLUCOSE [id number] 15:45:00 Test Item Value Reference Range Comments POC-GLUCOSE METER (BEAKER) 146 mg/dL 70-110 TESTED AT [address] (test faxj=8576) [place] [id number] BLOOD GAS, [id number] 15:25:00 Test Item Value Reference Range Comments PH ARTERIAL (BEAKER) (test tgju=453) 7.33 7.35-7.45 PCO2 ARTERIAL (BEAKER) (test jpbu=819) 49 mmHg 35-45 PO2 ARTERIAL (BEAKER) (test honj=883) 84 mmHg 80-90 O2 SATURATION ARTERIAL (BEAKER) (test chku=281) 95.8 % 96.0-97.0 HCO3 ARTERIAL (BEAKER) (test ghdw=458) 25 mmol/L 21-29 BASE EXCESS ARTERIAL (BEAKER) (test trcn=636) -1.3 mmol/L -2.0-3.0 PATIENT TEMPERATURE (BEAKER) (test uury=6934) 36.6 C FIO2 (BEAKER) (test fglx=4482) 40.0 % PLATELET AGGREGATION: FUNCTION [id number] 13:34:00 Test Item Value Reference Range Comments WEAK ADP RESULT(BEAKER) (test 63 % 60-91 jkpz=4994) PLATELET FUNCTION SCREEN 60-100% indicates normal INTERP (BEAKER) (test platelet function yymg=9527) [id number]-1210 (BEAKER) Teresa De León MD (electronic (test dbac=7686) signature) PLATELET COUNT AGG (BEAKER) 209 K/CU MM 150-450 (test bjca=1551) for patients on clopidogrel in past two weeksRAD, CHEST, 1 VIEW, NON [id number] 13:15:00Reason for exam:->post cardiovascular procedureShould this [...] Verified Date/Time: 03/18/2018 13:15:44 Reading Location: [facility] C0[facility] Consult Reading Room [id number] 13:04:00 Test Item Value Reference Range Comments MAGNESIUM (BEAKER) (test jqpy=488) 1.8 mg/dL 1.6-2.6 BASIC METABOLIC [id number] 13:04:00 Test Item Value Reference Range Comments SODIUM (BEAKER) (test 140 meq/L 136-145 dqco=816) POTASSIUM (BEAKER) (test 3.0 meq/L 3.5-5.1 zghk=115) CHLORIDE (BEAKER) (test 109 meq/L 98-107 uojz=084) CO2 (BEAKER) (test 23 meq/L 22-29 wjkl=066) BLOOD UREA NITROGEN 29 mg/dL 7-21 (BEAKER) (test pnck=403) CREATININE (BEAKER) (test 0.89 mg/dL 0.57-1.25 pmcd=860) GLUCOSE RANDOM (BEAKER) 142 mg/dL 70-105 (test bkap=418) CALCIUM (BEAKER) (test 9.3 mg/dL 8.4-10.2 lmbj=871) EGFR (BEAKER) (test 61 mL/min/1.73 sq m ESTIMATED GFR IS NOT jzzw=6464) ACCURATE CREATININE CLEARANCE IN PREDICTING GLOMERULAR FILTRATION RATE. ESTIMATED GFR IS NOT APPLICABLE FOR DIALYSIS PATIENTS. [id number] 12:43:00 Test Item Value Reference Range Comments PHOSPHORUS (BEAKER) (test ebic=109) 3.9 mg/dL 2.3-4.7 LACTIC ACID, VENOUS, WHOLE [id number] 12:15:00 Test Item Value Reference Range Comments LACTATE BLOOD VENOUS (2) 1.0 mmol/L 0.5-2.2 Specimen slightly hemolyzed (BEAKER) (test kdpy=0431) Effective 02/09/2016: Units/Reference Range ChangeNew: 0.5-2.2 mmol/L Previous: 5 -20 mg/dLCBC W/PLT COUNT & AUTO [id number] 12:06:00 Test Item Value Reference Range Comments WHITE BLOOD CELL COUNT (BEAKER) (test qdij=258) 14.3 K/ L 3.5-10.5 RED BLOOD CELL COUNT (BEAKER) (test xasj=829) 4.44 M/ L 3.93-5.22 HEMOGLOBIN (BEAKER) (test hbti=222) 12.9 GM/DL 11.2-15.7 HEMATOCRIT (BEAKER) (test cqch=308) 41.8 % 34.1-44.9 MEAN CORPUSCULAR VOLUME (BEAKER) (test ovxe=007) 94.1 fL 79.4-94.8 MEAN CORPUSCULAR HEMOGLOBIN (BEAKER) (test 29.1 pg 25.6-32.2 ozkl=446) MEAN CORPUSCULAR HEMOGLOBIN CONC (BEAKER) (test 30.9 GM/DL 32.2-35.5 byoj=761) RED CELL DISTRIBUTION WIDTH (BEAKER) (test 14.5 % 11.7-14.4 aegd=240) PLATELET COUNT (BEAKER) (test dptg=751) 176 K/CU MM 150-450 MEAN PLATELET VOLUME (BEAKER) (test hjqe=756) 11.4 fL 9.4-12.3 NUCLEATED RED BLOOD CELLS (BEAKER) (test 0 /100 WBC 0-0 mpep=283) NEUTROPHILS RELATIVE PERCENT (BEAKER) (test 91 % zlei=878) LYMPHOCYTES RELATIVE PERCENT (BEAKER) (test 6 % nwho=097) MONOCYTES RELATIVE PERCENT (BEAKER) (test 1 % virv=780) EOSINOPHILS RELATIVE PERCENT (BEAKER) (test 0 % kzra=339) BASOPHILS RELATIVE PERCENT (BEAKER) (test 1 % fjci=194) NEUTROPHILS ABSOLUTE COUNT (BEAKER) (test 13.02 K/ L 1.56-6.13 ummm=822) LYMPHOCYTES ABSOLUTE COUNT (BEAKER) (test 0.84 K/ L 1.18-3.74 ynjt=263) MONOCYTES ABSOLUTE COUNT (BEAKER) (test 0.09 K/ L 0.24-0.36 zhgs=287) EOSINOPHILS ABSOLUTE COUNT (BEAKER) (test 0.05 K/ L 0.04-0.36 myjf=995) BASOPHILS ABSOLUTE COUNT (BEAKER) (test 0.08 K/ L 0.01-0.08 wjps=525) IMMATURE GRANULOCYTES-RELATIVE PERCENT (BEAKER) 2 % 0-1 (test yvof=6680) HGB/HCT (H&H) - STAT [id number] 12:01:00 Test Item Value Reference Range Comments HEMOGLOBIN (BEAKER) (test pqfx=246) 13.8 g/dL 12.0-15.0 HEMATOCRIT (BEAKER) (test ubaw=775) 41.0 % 36.0-45.0 CALCIUM, [id number] 12:01:00 Test Item Value Reference Range Comments CALCIUM IONIZED (BEAKER) (test cnbl=876) 1.25 mmol/L 1.12-1.27 PH, BLOOD (BEAKER) (test dsee=3919) 7.37 BLOOD GAS, [id number] 12:01:00 Test Item Value Reference Range Comments PH ARTERIAL (BEAKER) (test zmef=554) 7.38 7.35-7.45 PCO2 ARTERIAL (BEAKER) (test toww=931) 46 mmHg 35-45 PO2 ARTERIAL (BEAKER) (test xczv=286) 214 mmHg 80-90 O2 SATURATION ARTERIAL (BEAKER) (test luyn=506) 99.4 % 96.0-97.0 HCO3 ARTERIAL (BEAKER) (test mljc=475) 26 mmol/L 21-29 BASE EXCESS ARTERIAL (BEAKER) (test hygq=745) 0.5 mmol/L -2.0-3.0 PATIENT TEMPERATURE (BEAKER) (test mjnj=4444) 36.7 C FIO2 (BEAKER) (test usmm=8872) 60.0 % POTASSIUM-STAT [id number] 12:01:00 Test Item Value Reference Range Comments POTASSIUM (BEAKER) (test msyg=636) 3.0 meq/L 3.6-5.5 GLUCOSE-STAT [id number] 12:01:00 Test Item Value Reference Range Comments GLUCOSE RANDOM (BEAKER) (test lgsu=846) 139 mg/dL 70-110 BLOOD GAS, [id number] 10:42:00 Test Item Value Reference Range Comments PH ARTERIAL (BEAKER) (test xqjd=360) 7.39 7.35-7.45 PCO2 ARTERIAL (BEAKER) (test nrss=109) 45 mmHg 35-45 PO2 ARTERIAL (BEAKER) (test jwph=700) 260 mmHg 80-90 O2 SATURATION ARTERIAL (BEAKER) (test lfqz=061) 99.6 % 96.0-97.0 HCO3 ARTERIAL (BEAKER) (test eqgx=924) 26 mmol/L 21-29 BASE EXCESS ARTERIAL (BEAKER) (test gxoa=861) 0.7 mmol/L -2.0-3.0 PATIENT TEMPERATURE (BEAKER) (test vcot=4973) 36.7 C FIO2 (BEAKER) (test ivvf=8875) 50.0 % POTASSIUM-STAT [id number] 10:42:00 Test Item Value Reference Range Comments POTASSIUM (BEAKER) (test qygr=139) 3.1 meq/L 3.6-5.5 GLUCOSE-STAT [id number] 10:42:00 Test Item Value Reference Range Comments GLUCOSE RANDOM (BEAKER) (test yuin=180) 139 mg/dL 70-110 CALCIUM, [id number] 10:41:00 Test Item Value Reference Range Comments CALCIUM IONIZED (BEAKER) (test xfls=871) 1.27 mmol/L 1.12-1.27 PH, BLOOD (BEAKER) (test aywm=9086) 7.38 SODIUM NA-STAT [id number] 10:40:00 Test Item Value Reference Range Comments SODIUM (BEAKER) (test wpbm=170) 141 meq/L 135-148 HGB/HCT (H&H) - STAT [id number] 10:40:00 Test Item Value Reference Range Comments HEMOGLOBIN (BEAKER) (test svas=887) 13.7 g/dL 12.0-15.0 HEMATOCRIT (BEAKER) (test rqju=896) 40.0 % 36.0-45.0 BLOOD GAS, [id number] 09:53:00 Test Item Value Reference Range Comments PH ARTERIAL (BEAKER) (test ipbf=472) 7.45 7.35-7.45 PCO2 ARTERIAL (BEAKER) (test bqyy=367) 38 mmHg 35-45 PO2 ARTERIAL (BEAKER) (test hohb=382) 187 mmHg 80-90 O2 SATURATION ARTERIAL (BEAKER) (test zsyn=598) 99.4 % 96.0-97.0 HCO3 ARTERIAL (BEAKER) (test tcvh=673) 26 mmol/L 21-29 BASE EXCESS ARTERIAL (BEAKER) (test vapq=761) 1.7 mmol/L -2.0-3.0 PATIENT TEMPERATURE (BEAKER) (test htoy=2044) 36.0 C FIO2 (BEAKER) (test fezy=2482) 50.0 % POTASSIUM-STAT [id number] 09:53:00 Test Item Value Reference Range Comments POTASSIUM (BEAKER) (test nbgx=503) 3.0 meq/L 3.6-5.5 GLUCOSE-STAT [id number] 09:53:00 Test Item Value Reference Range Comments GLUCOSE RANDOM (BEAKER) (test ztpb=177) 135 mg/dL 70-110 CALCIUM, [id number] 09:53:00 Test Item Value Reference Range Comments CALCIUM IONIZED (BEAKER) (test rdaz=178) 1.01 mmol/L 1.12-1.27 PH, BLOOD (BEAKER) (test staj=5897) 7.43 SODIUM NA-STAT [id number] 09:51:00 Test Item Value Reference Range Comments SODIUM (BEAKER) (test bxmh=509) 137 meq/L 135-148 HGB/HCT (H&H) - STAT [id number] 09:51:00 Test Item Value Reference Range Comments HEMOGLOBIN (BEAKER) (test kjrk=232) 14.1 g/dL 12.0-15.0 HEMATOCRIT (BEAKER) (test espk=155) 41.0 % 36.0-45.0 BLOOD GAS, [id number] 08:48:00 Test Item Value Reference Range Comments PH ARTERIAL (BEAKER) (test piwx=029) 7.43 7.35-7.45 PCO2 ARTERIAL (BEAKER) (test lycm=668) 47 mmHg 35-45 PO2 ARTERIAL (BEAKER) (test uqft=137) 481 mmHg 80-90 O2 SATURATION ARTERIAL (BEAKER) (test ewnx=337) 99.9 % 96.0-97.0 HCO3 ARTERIAL (BEAKER) (test kqpc=534) 31 mmol/L 21-29 BASE EXCESS ARTERIAL (BEAKER) (test sqcv=869) 5.1 mmol/L -2.0-3.0 PATIENT TEMPERATURE (BEAKER) (test qtxf=5037) 36.5 C FIO2 (BEAKER) (test zycc=7372) 100.0 % POTASSIUM-STAT [id number] 08:48:00 Test Item Value Reference Range Comments POTASSIUM (BEAKER) (test jrgt=592) 3.1 meq/L 3.6-5.5 GLUCOSE-STAT [id number] 08:48:00 Test Item Value Reference Range Comments GLUCOSE RANDOM (BEAKER) (test vbha=262) 116 mg/dL 70-110 HGB/HCT (H&H) - STAT [id number] 08:48:00 Test Item Value Reference Range Comments HEMOGLOBIN (BEAKER) (test vzgu=613) 15.5 g/dL 12.0-15.0 HEMATOCRIT (BEAKER) (test fvah=092) 46.0 % 36.0-45.0 CALCIUM, [id number] 08:47:00 Test Item Value Reference Range Comments CALCIUM IONIZED (BEAKER) (test yvtf=099) 1.12 mmol/L 1.12-1.27 PH, BLOOD (BEAKER) (test tdvm=9587) 7.42 SODIUM NA-STAT [id number] 08:46:00 Test Item Value Reference Range Comments SODIUM (BEAKER) (test vjse=436) 141 meq/L 135-148 POCT-GLUCOSE [id number] 07:58:00 Test Item Value Reference Range Comments POC-GLUCOSE METER (BEAKER) 105 mg/dL 70-110 TESTED AT [facility] [address] (test wwfu=3355) [place] [address] [id number] 15:19:00 Test Item Value Reference Range Comments PARTIAL THROMBOPLASTIN TIME (BEAKER) (test 27.8 seconds 22.5-36.0 itgb=872) PROTHROMBIN [id number] 15:18:00 Test Item Value Reference Range Comments PROTIME (BEAKER) (test cysp=335) 14.4 seconds 11.7-14.7 INR (BEAKER) (test lgyl=106) 1.1 <=5.9 RECOMMENDED COUMADIN/WARFARIN INR THERAPY RANGESSTANDARD DOSE: 2.0 - 3.0 Includes: PROPHYLAXIS forvenous thrombosis, systemic embolization; TREATMENT for venous thrombosis and/or pulmonary embolus.HIGH RISK: Target INR is 2.5-3.5 for patients with mechanical heart valves.COMPREHENSIVE METABOLIC [id number] 15:10:00 Test Item Value Reference Range Comments TOTAL PROTEIN (BEAKER) 7.7 gm/dL 6.0-8.3 (test yomu=245) ALBUMIN (BEAKER) (test 4.1 g/dL 3.5-5.0 nzqq=9625) ALKALINE PHOSPHATASE 40 U/L 40-150 (BEAKER) (test vxqa=890) BILIRUBIN TOTAL (BEAKER) 0.8 mg/dL 0.2-1.2 (test latr=487) SODIUM (BEAKER) (test 143 meq/L 136-145 cmkh=048) POTASSIUM (BEAKER) (test 4.1 meq/L 3.5-5.1 xehy=298) CHLORIDE (BEAKER) (test 101 meq/L 98-107 vbgi=127) CO2 (BEAKER) (test 30 meq/L 22-29 cwvu=739) BLOOD UREA NITROGEN 31 mg/dL 7-21 (BEAKER) (test uhad=626) CREATININE (BEAKER) (test 1.17 mg/dL 0.57-1.25 cdbj=881) GLUCOSE RANDOM (BEAKER) 142 mg/dL 70-105 (test xgwy=525) CALCIUM (BEAKER) (test 10.5 mg/dL 8.4-10.2 tjwb=928) AST (SGOT) (BEAKER) (test 28 U/L 5-34 zkcm=684) ALT (SGPT) (BEAKER) (test 18 U/L 6-55 xzah=828) EGFR (BEAKER) (test 44 mL/min/1.73 sq m ESTIMATED GFR IS NOT akye=5878) ACCURATE CREATININE CLEARANCE IN PREDICTING GLOMERULAR FILTRATION RATE. ESTIMATED GFR IS NOT APPLICABLE FOR DIALYSIS PATIENTS. RAD, CHEST, 2 [id number] 14:44:00Reason for exam:->preopFINAL REPORT Chest two views [...] Verified Date/Time: 03/11/2018 14:44:31 Reading Location: [facility] C0[facility] Consult Reading Room CBC W/PLT COUNT & AUTO [id number] 14:43:00 Test Item Value Reference Range Comments WHITE BLOOD CELL COUNT (BEAKER) (test ooor=043) 7.8 K/ L 3.5-10.5 RED BLOOD CELL COUNT (BEAKER) (test nofs=670) 5.48 M/ L 3.93-5.22 HEMOGLOBIN (BEAKER) (test uvrj=605) 15.6 GM/DL 11.2-15.7 HEMATOCRIT (BEAKER) (test fxqs=965) 51.3 % 34.1-44.9 MEAN CORPUSCULAR VOLUME (BEAKER) (test vhgq=416) 93.6 fL 79.4-94.8 MEAN CORPUSCULAR HEMOGLOBIN (BEAKER) (test 28.5 pg 25.6-32.2 svcn=696) MEAN CORPUSCULAR HEMOGLOBIN CONC (BEAKER) (test 30.4 GM/DL 32.2-35.5 oaem=583) RED CELL DISTRIBUTION WIDTH (BEAKER) (test 14.2 % 11.7-14.4 cvbk=609) PLATELET COUNT (BEAKER) (test ecuk=225) 251 K/CU MM 150-450 MEAN PLATELET VOLUME (BEAKER) (test ferp=413) 11.4 fL 9.4-12.3 NUCLEATED RED BLOOD CELLS (BEAKER) (test 0 /100 WBC 0-0 hsla=351) NEUTROPHILS RELATIVE PERCENT (BEAKER) (test 85 % iqmx=600) LYMPHOCYTES RELATIVE PERCENT (BEAKER) (test 10 % qvmx=013) MONOCYTES RELATIVE PERCENT (BEAKER) (test 3 % tehp=316) EOSINOPHILS RELATIVE PERCENT (BEAKER) (test 0 % xzvl=316) BASOPHILS RELATIVE PERCENT (BEAKER) (test 1 % yudg=460) NEUTROPHILS ABSOLUTE COUNT (BEAKER) (test 6.61 K/ L 1.56-6.13 iwvm=445) LYMPHOCYTES ABSOLUTE COUNT (BEAKER) (test 0.79 K/ L 1.18-3.74 ybue=914) MONOCYTES ABSOLUTE COUNT (BEAKER) (test 0.26 K/ L 0.24-0.36 yken=471) EOSINOPHILS ABSOLUTE COUNT (BEAKER) (test 0.01 K/ L 0.04-0.36 cjgs=296) BASOPHILS ABSOLUTE COUNT (BEAKER) (test 0.07 K/ L 0.01-0.08 hsjg=175) IMMATURE GRANULOCYTES-RELATIVE PERCENT (BEAKER) 1 % 0-1 (test mevr=9686)
[2019-06-20 09:56] LABS: Urine Blood NEGATIVE (NEG); Urine Glucose NEGATIVE (NEG); Urine Protein NEGATIVE (NEG); Urine pH 7.5 (5.0-7.0)
[2019-06-20 10:30] LABS: Protime INR 1.02
[2019-06-20 10:32] LABS: Absolute Lymphocytes (CBC) 0.8 K/uL (0.7-4.9); Basophils % 0.9 % (0-1.3); Lymphocytes % 9.3 % (15.3-44.8); MPV 9.8 fL (7.6-11.3); RBC Red Blood Cell Count 4.86 M/uL (3.86-4.86)
[2019-06-20 10:49] LABS: Bilirubin Direct 0.2 mg/dL (0-0.2); Bilirubin Total 0.5 mg/dL (0.2-1.0); Magnesium 1.9 mg/dL (1.8-2.4); Potassium 3.9 mmol/L (3.5-5.1); Protein, Total 7.4 g/dL (6.4-8.2); Troponin (Emerg Dept Use Only) 0.23 ng/mL (0.0-0.045)
--- NOTE | 2019-06-20 10:54 | RAD REPORT ---
EXAM DESCRIPTION: [place] Single View06/20/2019 10:35 am CLINICAL HISTORY: Chest pain COMPARISON: June 13, 2019 FINDINGS: The lungs appear clear of acute infiltrate. The heart is mildly enlarged. Pacemaker leads are in place. IMPRESSION: No acute abnormalities displayed
[2019-06-20] MEDS ORDERED: LEVALBUTEROL 1.25 MG/3 ML NEB ONE (11:34)
[2019-06-20] MEDS ORDERED: IPRATROPIUM BROM 0.5MG/2.5ML ONE (11:34)
[2019-06-20] MEDS ORDERED: FUROSEMIDE 20 MG/ 2ML VIAL ONE (12:27)
--- NOTE | 2019-06-20 13:47 | ER ---
Nurse's Notes [facility] Name: Fanny Arceo Age: 83 yrs Sex: Female : 1935 Arrival Date: 06/20/2019 Time: 09:38 Bed 2 Private MD: Sherry Stock R Diagnosis: Chronic obstructive pulmonary disease with (acute) exacerbation;Dyspnea;Unspecified combined systolic (congestive) and diastolic (congestive) heart failure Presentation: 06/20 09:44 Presenting complaint: EMS states: Called out for SOB. Pt discharged from [facility] hb yesterday. Transition of care: patient was not received from another setting of care. Onset of symptoms was June 20, 2019. Risk Assessment: Do you want to hurt yourself or someone else? Patient reports no desire to harm self or others. Initial Sepsis Screen: Does the patient meet any 2 criteria? No. Patient's initial sepsis screen is negative. Does the patient have a suspected source of infection? No. Patient's initial sepsis screen is negative. Care prior to arrival: None. 09:44 Method Of Arrival: EMS: [facility] hb 09:44 Acuity: JESSE 3 hb Historical: - Allergies: 09:47 Atenolol; hb 09:47 Morphine; hb 09:47 Simvastatin; hb 09:47 Sulfa (Sulfonamide Antibiotics); hb 09:47 Ticlopidine HCl; hb - Home Meds: 13:27 albuterol sulfate 2.5 mg /3 mL (0.083 %) Inhl nebu Q 4 hrs PRN [Active]; amlodipine 5 mg2 mg tab 1 tab once daily [Active]; aspirin 325 mg Oral TbEC 1 tab once daily [Active]; famotidine 40 mg Oral tab 1 tab once daily [Active]; fenofibrate 145 MG Oral 1 cap once daily [Active]; gabapentin 600 mg Oral tab 1 tab twice a day [Active]; isorsorbide 60mg daily [Active]; levothyroxine 125 mcg tab 1 tab once daily [Active]; losartan-hydrochlorothiazide 100-25 mg Oral tab 1 tab once daily [Active]; metoprolol tartrate 25 mg Oral tab 1 tab once daily [Active]; prednisone 10 mg Oral tab 1 tab once daily [Active]; Ultram 50 mg Oral tab 1 tab twice a day [Active]; Zoloft 50 mg Oral tab 1 tab nightly [Active]; - PMHx: 09:47 High Cholesterol; Depression; Hyperlipidemia; Hypertension; Atrial Fib; CHF; Diabetes - hb IDDM; COPD; Clot to right arm; CAD; chronic renal failure; GERD; Hypothyroidism; neuropathy; Sleep Apnea; - PSHx: 09:47 Hysterectomy; Cholecystectomy; Appendectomy; Heart stents; pacemaker; Aneurysm of Leg hb Artery; - Immunization history:: Adult Immunizations up to date. - Social history:: Smoking status: Patient/guardian denies using tobacco. - Ebola Screening: : No symptoms or risks identified at this time. Screenin:48 Abuse screen: Denies threats or abuse. Nutritional screening: No deficits noted. hb Tuberculosis screening: No symptoms or risk factors identified. Fall Risk Total Pugh Fall Scale indicates High Risk Score (45 or more points). Fall prevention measures have been instituted. Side Rails Up X 2 Frequent Obs/Assessments Occuring Family Present and informed to notify staff if the need to leave the bedside As available patient and family educated on Fall Prevention Program and Strategies. Assessment: 10:02 General: Appears in no apparent distress. Behavior is calm, cooperative. Pain: Denies hb pain. Neuro: Level of Consciousness is awake, alert, obeys commands, Oriented to person, place, time, situation. Cardiovascular: Heart tones S1 S2 present Capillary refill < 3 seconds Patient's skin is warm and dry. Respiratory: Airway is patent Respiratory effort is labored, Respiratory pattern is regular, symmetrical, Breath sounds are diminished bilaterally. GI: No signs and/or symptoms were reported involving the gastrointestinal system. : No signs and/or symptoms were reported regarding the genitourinary system. EENT: No signs and/or symptoms were reported regarding the EENT system. Derm: Skin is pink, warm \T\ dry. Musculoskeletal: No signs and/or symptoms reported regarding the musculoskeletal system. 11:38 Reassessment: Patient appears in no apparent distress at this time. Patient and/or ph family updated on plan of care and expected duration. Pain level reassessed. Patient is alert, oriented x 3, equal unlabored respirations, skin warm/dry/pink. 13:25 Reassessment: provider at bedside talking to the patient. mg2 15:33 Reassessment: Patient appears in no apparent distress at this time. Patient and/or ph family updated on plan of care and expected duration. Pain level reassessed. Patient is alert, oriented x 3, equal unlabored respirations, skin warm/dry/pink. Report called to Leonard Clark RN. Vital Signs: 09:48 BP 160 / 85; Pulse 70; Resp 18; Temp 97.9; Pulse Ox 97% on 2 lpm NC; Weight 106.59 kg; hb Height 5 ft. 4 in. (162.56 cm); Pain 0/10; 10:45 BP 154 / 66; Pulse 70; Resp 18; Pulse Ox 96% on 2 lpm NC; ph 11:36 BP 192 / 83; Pulse 70; Resp 18; Pulse Ox 96% 2 lpm ; ph 12:03 BP 190 / 83; Pulse 70; Resp 17; Pulse Ox 99% on 2 lpm NC; hb 13:25 BP 166 / 81; Pulse 70; Resp 18; Pulse Ox 94% on 2 lpm NC; mg2 14:44 BP 139 / 99; Pulse 70; Resp 18; Pulse Ox 98% on 2 lpm NC; mg2 15:23 BP 139 / 99; Pulse 70; Resp 18; Temp 97.4; Pulse Ox 97% on 2 lpm NC; ph 09:48 Body Mass Index 40.34 (106.59 kg, 162.56 cm) hb ED Course: 09:38 Patient arrived in ED. am2 09:38 Sindi Bullard FNP-C [facility]. kb 09:39 Neel Rosales MD is Attending Physician. kb 09:39 Sherry Stock MD is Private Physician. am2 09:42 Thelma Argueta, NIKOLAS is Primary Nurse. hb 09:46 Triage completed. hb 09:48 Arm band placed on. hb 09:49 Patient has correct armband on for positive identification. Placed in gown. Bed in low hb position. Call light in reach. Side rails up X2. surveillance system monitor on. Pulse ox on. NIBP on. 10:14 Inserted saline lock: 22 gauge in right forearm, using aseptic technique. Blood hb collected. 10:22 Urine Dipstick--Ancillary (enter results) Sent. hb 10:25 EKG done, by special equipment technician. reviewed by Sindi CRAMER. at1 10:37 XRAY Chest (1 view) In Process Unspecified. EDMS 13:27 No provider procedures requiring assistance completed. mg2 13:46 Elin Hwang MD is Hospitalizing Provider. kb 14:45 Patient admitted, IV remains in place. mg2 Administered Medications: 12:00 Drug: Xopenex (3) 1.25 mg Route: Inhalation; hb 12:00 Drug: AtroVENT Aerosol 0.5 mg Route: Inhalation; hb 12:32 Drug: Lasix 20 mg Route: IVP; Site: right forearm; mg2 Output: 13:38 Urine: 200ml (Voided); Total: 200ml. mg2 14:45 Urine: 200ml (Voided); Total: 400ml. mg2 Outcome: 13:46 Decision to Hospitalize by Provider. kb 15:57 Patient left the ED. mg2 Signatures: Dispatcher [employer] EDMS Sindi Bullard, BLAIR-C CHURN OPERATOR MARGARINE-CkJessica Granger, photolithographer EKG Tat1 Amarilis Herrera RN RN Thelma Argueta RN RN Jessica Damon am2 Ronald Duarte RN RN mg2
--- NOTE | 2019-06-20 13:48 | EDPHYS ---
Physician Documentation [facility] Name: Fanny Arceo Age: 83 yrs Sex: Female : 1935 Arrival Date: 06/20/2019 Time: 09:38 Bed 2 Private MD: Sherry Stock R ED Physician Neel Rosales HPI: 06/20 10:34 This 83 yrs old Female presents to ER via EMS with complaints of Shortness Of kb Breath. 10:34 The patient has shortness of breath at rest. Onset: The symptoms/episode began/occurred kb 4 day(s) ago. Duration: The symptoms are continuous. The patient's shortness of breath is aggravated by nothing, is alleviated by nothing. Associated signs and symptoms: The patient has no apparent associated signs or symptoms. Severity of symptoms: At their worst the symptoms were moderate in the emergency department the symptoms are unchanged. The patient has experienced similar episodes in the past. The patient has been recently been admitted at [facility], was discharged yesterday. Pt reports she has had shortness of breath for a few days, started before discharged from the hospital. States "They let me go too soon." No relief with home O2. pt 97-98% on 2L O2 which is what she uses at home. . Historical: - Allergies: 09:47 Atenolol; hb 09:47 Morphine; hb 09:47 Simvastatin; hb 09:47 Sulfa (Sulfonamide Antibiotics); hb 09:47 Ticlopidine HCl; hb - Home Meds: 13:27 albuterol sulfate 2.5 mg /3 mL (0.083 %) Inhl nebu Q 4 hrs PRN [Active]; amlodipine 5 mg2 mg tab 1 tab once daily [Active]; aspirin 325 mg Oral TbEC 1 tab once daily [Active]; famotidine 40 mg Oral tab 1 tab once daily [Active]; fenofibrate 145 MG Oral 1 cap once daily [Active]; gabapentin 600 mg Oral tab 1 tab twice a day [Active]; isorsorbide 60mg daily [Active]; levothyroxine 125 mcg tab 1 tab once daily [Active]; losartan-hydrochlorothiazide 100-25 mg Oral tab 1 tab once daily [Active]; metoprolol tartrate 25 mg Oral tab 1 tab once daily [Active]; prednisone 10 mg Oral tab 1 tab once daily [Active]; Ultram 50 mg Oral tab 1 tab twice a day [Active]; Zoloft 50 mg Oral tab 1 tab nightly [Active]; - PMHx: 09:47 High Cholesterol; Depression; Hyperlipidemia; Hypertension; Atrial Fib; CHF; Diabetes - hb IDDM; COPD; Clot to right arm; CAD; chronic renal failure; GERD; Hypothyroidism; neuropathy; Sleep Apnea; - PSHx: 09:47 Hysterectomy; Cholecystectomy; Appendectomy; Heart stents; pacemaker; Aneurysm of Leg hb Artery; - Immunization history:: Adult Immunizations up to date. - Social history:: Smoking status: Patient/guardian denies using tobacco. - Ebola Screening: : No symptoms or risks identified at this time. ROS: 11:26 Constitutional: Negative for fever, chills, and weight loss, Neck: Negative for injury, kb pain, and swelling, Cardiovascular: Negative for chest pain, palpitations, and edema, Abdomen/GI: Negative for abdominal pain, nausea, vomiting, diarrhea, and constipation, Back: Negative for injury and pain, MS/Extremity: Negative for injury and deformity, Skin: Negative for injury, rash, and discoloration, Neuro: Negative for headache, weakness, numbness, tingling, and seizure. 11:26 Respiratory: Positive for dyspnea on exertion, shortness of breath. Exam: 11:26 Constitutional: This is a well developed, well nourished patient who is awake, alert, kb and in no acute distress. Head/Face: Normocephalic, atraumatic. Neck: Trachea midline, no thyromegaly or masses palpated, and no cervical lymphadenopathy. Supple, full range of motion without nuchal rigidity, or vertebral point tenderness. No Meningismus. Chest/axilla: Normal chest wall appearance and motion. Nontender with no deformity. No lesions are appreciated. Cardiovascular: Regular rate and rhythm with a normal S1 and S2. No gallops, murmurs, or rubs. Normal PMI, no JVD. No pulse deficits. Abdomen/GI: Soft, non-tender, with normal bowel sounds. No distension or tympany. No guarding or rebound. No evidence of tenderness throughout. Back: No spinal tenderness. No costovertebral tenderness. Full range of motion. Skin: Warm, dry with normal turgor. Normal color with no rashes, no lesions, and no evidence of cellulitis. MS/ Extremity: Pulses equal, no cyanosis. Neurovascular intact. Full, normal range of motion. Neuro: Awake and alert, GCS 15, oriented to person, place, time, and situation. Cranial nerves II-XII grossly intact. Motor strength 5/5 in all extremities. Sensory grossly intact. Cerebellar exam normal. Normal gait. 11:26 Respiratory: the patient does not display signs of respiratory distress, Respirations: normal, Breath sounds: decreased breath sounds, that are mild, are located in both bases. Vital Signs: 09:48 BP 160 / 85; Pulse 70; Resp 18; Temp 97.9; Pulse Ox 97% on 2 lpm NC; Weight 106.59 kg; hb Height 5 ft. 4 in. (162.56 cm); Pain 0/10; 10:45 BP 154 / 66; Pulse 70; Resp 18; Pulse Ox 96% on 2 lpm NC; ph 11:36 BP 192 / 83; Pulse 70; Resp 18; Pulse Ox 96% 2 lpm ; ph 12:03 BP 190 / 83; Pulse 70; Resp 17; Pulse Ox 99% on 2 lpm NC; hb 13:25 BP 166 / 81; Pulse 70; Resp 18; Pulse Ox 94% on 2 lpm NC; mg2 14:44 BP 139 / 99; Pulse 70; Resp 18; Pulse Ox 98% on 2 lpm NC; mg2 15:23 BP 139 / 99; Pulse 70; Resp 18; Temp 97.4; Pulse Ox 97% on 2 lpm NC; ph 09:48 Body Mass Index 40.34 (106.59 kg, 162.56 cm) hb MDM: 09:39 Patient medically screened. kb 11:26 Data reviewed: vital signs, nurses notes. Data interpreted: Pulse oximetry: on room air kb is 97 %. Interpretation: normal. 11:27 ED course: pt resting on stretcher, in no distress. Resp even and unlabored. Breath kb sounds clear. 13:38 Counseling: I had a detailed discussion with the patient and/or guardian regarding: the kb historical points, exam findings, and any diagnostic results supporting the discharge/admit diagnosis, lab results, radiology results, the need for further work-up and treatment in the hospital. 06/20 09:39 Order name: Basic Metabolic Panel; Complete Time: 10:51 kb 06/20 09:39 Order name: CBC with Diff; Complete Time: 10:33 kb 06/20 09:39 Order name: LFT's; Complete Time: 10:51 kb 06/20 09:39 Order name: Magnesium; Complete Time: 10:51 kb 06/20 09:39 Order name: NT PRO-BNP; Complete Time: 10:51 kb 06/20 09:39 Order name: PT-INR; Complete Time: 10:39 kb 06/20 09:39 Order name: Troponin (emerg Dept Use Only); Complete Time: 10:51 kb 06/20 09:39 Order name: XRAY Chest (1 view); Complete Time: 11:06 kb 06/20 09:39 Order name: EKG; Complete Time: 09:41 kb 06/20 09:51 Order name: Urine Dipstick--Ancillary (enter results) bd 06/20 09:56 Order name: Urine Dipstick-Ancillary EDMS 06/20 09:39 Order name: Cardiac monitoring; Complete Time: 09:49 kb 06/20 09:39 Order name: EKG - Nurse/Tech; Complete Time: 10:22 kb 06/20 09:39 Order name: IV Saline Lock; Complete Time: 10:23 kb 06/20 09:39 Order name: Labs collected and sent; Complete Time: 10:22 kb 06/20 09:39 Order name: O2 Per Protocol; Complete Time: 09:49 kb 06/20 09:39 Order name: O2 Sat Monitoring; Complete Time: 09:49 kb Administered Medications: 12:00 Drug: Xopenex (3) 1.25 mg Route: Inhalation; hb 12:00 Drug: AtroVENT Aerosol 0.5 mg Route: Inhalation; hb 12:32 Drug: Lasix 20 mg Route: IVP; Site: right forearm; mg2 Disposition: 19:02 Co-signature as Attending Physician, Neel Rosales MD. rn Disposition: 06/20/19 13:46 Hospitalization ordered by Elin Hwang for Observation. Preliminary diagnosis are Chronic obstructive pulmonary disease with (acute) exacerbation, Dyspnea, Unspecified combined systolic (congestive) and diastolic (congestive) heart failure. - Bed requested for Telemetry/MedSurg (observation). - Status is Observation. mg2 - Condition is Stable. - Problem is an acute exacerbation. - Symptoms are unchanged. UTI on Admission? No Signatures: Dispatcher [employer] EDMS Sindi Bullard, METAL FABRICATION SUPERVISOR-C METAL FABRICATION SUPERVISOR-Ckb Ashley Norman, RN RN dw Neel Rosales MD MD rn Baxter, Heather, NIKOLSA RN Ronald Duarte, RN RN mg2 Corrections: (The following items were deleted from the chart) 15:12 13:46 Hospitalization Ordered by Elin Hwang MD for Observation. Preliminary diagnosis dw is Chronic obstructive pulmonary disease with (acute) exacerbation; Dyspnea; Unspecified combined systolic (congestive) and diastolic (congestive) heart failure. Bed requested for Telemetry/MedSurg (observation). Status is Observation. Condition is Stable. Problem is an acute exacerbation. Symptoms are unchanged. UTI on Admission? No. kb 15:57 15:12 06/20/2019 13:46 Hospitalization Ordered by Elin Hwang MD for Observation. mg2 Preliminary diagnosis is Chronic obstructive pulmonary disease with (acute) exacerbation; Dyspnea; Unspecified combined systolic (congestive) and diastolic (congestive) heart failure. Bed requested for Telemetry/MedSurg (observation). Status is Observation. Condition is Stable. Problem is an acute exacerbation. Symptoms are unchanged. UTI on Admission? No. dw
[2019-06-20] MEDS: IPRATROPIUM BROM 0.5MG/2.5ML NEB SCH ×2 (15:46→20:00)
[2019-06-20] MEDS ORDERED: ONDANSETRON 4 MG/2 ML VIAL IV PRN (15:46)
[2019-06-20] MEDS: ALBUTEROL 2.5 MG/3 ML NEB SOL NEB SCH ×2 (15:46→20:00)
[2019-06-20 16:29] VITALS: BMI 40.1
[2019-06-20] MEDS: INSULIN -REGULAR HUMAN 50 UNIT/0.5 ML ML SQ SCH ×2 (16:30→21:00)
[2019-06-20] MEDS ORDERED: ACETAMINOPHEN 325 MG TABLET PO PRN (16:45)
--- NOTE | 2019-06-20 16:57 | P.HP ---
Patient History Date of Service: 06/20/19 [facility] Reason for admission: Shortness of breath History of Present Illness: this is a 83 old female with multiple medical problems including hypertension, diabetes, CHF, chronic renal disease, CAD, COPD, obstructive sleep apnea and pacemaker in place presented with shortness of breath. Per patient, she was recently discharged yesterday from [facility] for pancreatitis. Since then, she has not been feeling well. She attributes it to the fact that they changed her blood pressure medications upon discharge. She states that her blood pressure was really really had this morning so more in the 200s per month and she was having shortness of breath along with the headache. she does live with her son, and she called out to her son to help her catch her breath. this continued to worsen, and so she could not even walk to the bathroom from her bed. Therefore EMS was called and patient was brought to the emergency room. In the ER, her blood pressure was 160/85, heart rate is 70, respirations of 18, afebrile at 97.9, satting 97% on 2 L nasal cannula with, which is a home oxygen. This she has a BMI of 40.2. Her labs were fairly unremarkable except for troponin of 0.23, which is actually normal for her. Her pro BNP was 4070. Her chest x-ray was without any acute abnormalities. She had a echo done in January 2019, which showed 50% ejection fraction,dilated heart along with LVH and pulmonary hypertension. In the ER, she received nebulizer treatments along with IV Lasix 20 mg x1. She was then referred for admission for as she had increased work of breathing. At the time of my Exam, patient was alert oriented x3, in mild to moderate distress due to headache and respiratory status but she was hemodynamically stable. Allergies morphine Allergy (Verified 02/20/18 12:54) Hives ticlopidine HCl [From Ticlid] Adverse Reaction (Verified 02/20/18 12:54) Hives/Rash Sulfa (Sulfonamid Allergy (Mild, Uncoded 01/24/19 21:31) Unknown Home medications list reviewed: Yes Home Medications: Famotidine 40 mg PO DAILY 10/08/17 Fenofibrate [Tricor*] 145 mg PO DAILY 10/08/17 Gabapentin [Neurontin] 600 mg PO BID 10/08/17 Tramadol HCl [Ultram] 50 mg PO TID 10/08/17 Aspirin 325 mg PO DAILY 02/09/18 Sertraline [Zoloft*] 50 mg PO DAILY 02/09/18 Amlodipine [Norvasc*] 5 mg PO DAILY 03/28/18 Levothyroxine Sodium [Synthroid] 125 mcg PO DAILY 01/25/19 Acetaminophen [Pain Relief] 2 tab PO Q6HP PRN 06/20/19 Albuterol Sulfate [Albuterol Sulfate 0.083% Neb Soln] 2.5 mg IH Q4H PRN Bimatoprost [Lumigan Opthalmic Drops] 2.5 ml OP BEDTIME 06/20/19 Budesonide [Pulmicort] 1 puff IH BID 06/20/19 Carvedilol [Coreg*] 1 tab PO BID 06/20/19 Carvedilol [Coreg] 25 mg PO BID 06/20/19 Furosemide [Lasix] 20 mg PO BIDL 06/20/19 Hydralazine HCl 25 mg PO Q8H 06/20/19 Losartan Potassium [Cozaar] 100 mg PO DAILY 06/20/19 Losartan Potassium [Cozaar] 100 mg PO DAILY 06/20/19 Sertraline [Zoloft] 50 mg PO BEDTIME 06/20/19 predniSONE [Deltasone] 10 mg PO DAILY 06/20/19 - Past Medical/Surgical History Has patient received pneumonia vaccine in the past: Yes Diabetic: Yes -: HTN -: Hyperlipidemia -: Diabetes mellitus type 2 -: COPD -: History of DVT/PE -: History of atrial fibrillation requiring pacemaker -: GERD -: Depression -: Hypothyroidism -: Arthritis -: History of esophageal stricture -: Chronic renal disease -: Cholecystectomy -: Appendectomy -: Hysterectomy -: PANCREATIC SX D/T MASS, no cancer noted -: cataract surgery -: "leg artery" aneurysm Psychosocial/ Personal History: The patient is a . She has 4 children. - Family History Brother -: Seizures Mother -: Heart disease Father -: Hypertension, Stroke - Social History Smoking Status: Former smoker Alcohol use: No CD- Drugs: No Caffeine use: Yes Place of Residence: Home Review of Systems 10-point ROS is otherwise unremarkable Physical Examination - Vital Signs Temperature: 97.4 F Blood Pressure: 139/99 Pulse: 70 Respirations: 18 - Physical Exam General: Alert, Oriented x3, Mild distress, Obese HEENT: Atraumatic, PERRLA, Mucous membr. moist/pink, EOMI, Sclerae nonicteric Neck: Supple, 2+ carotid pulse no bruit, No LAD, Without JVD or thyroid abnormality Respiratory: Crackles/rales Cardiovascular: Regular rate/rhythm, Normal S1 S2 Gastrointestinal: Normal bowel sounds, No tenderness Musculoskeletal: No tenderness Integumentary: No rashes Neurological: Normal gait, Normal speech, Normal strength at 5/5 x4 extr, Normal tone, Normal affect Lymphatics: No axilla or inguinal lymphadenopathy - Studies Laboratory Data (last 24 hrs) 06/20/19 10:12: PT 12.0, INR 1.02 06/20/19 10:12: WBC 8.3 D, Hgb 14.8, Hct 45.0, Plt Count 234 06/20/19 10:12: Sodium 143, Potassium 3.9, BUN 21 H, Creatinine 0.79, Glucose 140 H, Magnesium 1.9, Total Bilirubin 0.5, AST 23, ALT 28, Alkaline Phosphatase 38 L Assessment and Plan - Problems (Diagnosis) (1) Acute and chronic respiratory failure Current Visit: Yes Status: Acute Plan: Likely secondary to COPD exacerbation versus CHF exacerbation versus hypertensive urgency. Possibly a component of each -Provide supportive care with oxygen as needed. Continue to wean to 2 L, which is patient's home oxygen. -provide nebulizer treatments -continue oral steroids -IV Lasix for diuresis -bring blood pressure under better control -Fluid restriction -Daily weight Qualifiers: Respiratory failure complication: hypoxia Qualified Code(s): J96.21 - Acute and chronic respiratory failure with hypoxia (2) CHF (congestive heart failure) Current Visit: No Status: Chronic Plan: Continue diuresis with IV Lasix as noted above -fluid restriction -Daily weight Qualifiers: Heart failure type: diastolic Heart failure chronicity: chronic Qualified Code(s): I50.32 - Chronic diastolic (congestive) heart failure (3) COPD (chronic obstructive pulmonary disease) Onset Date: 10/11/17 Current Visit: No Status: Chronic Plan: we will continue breathing treatments, oral steroids and oxygen as needed. Qualifiers: COPD type: chronic bronchitis (4) Essential (primary) hypertension Onset Date: 10/11/17 Current Visit: Yes Status: Chronic Plan: Blood pressure is elevated initially, likely secondary to medication changes and confusion on how to give blood pressure medications. Son states that he does not think he can take care of her medications anymore. - Patient is currently on multiple high blood pressure medications. We will restart carvedilol, losartan, amlodipine. If blood pressure gets too low, will discontinue amlodipine. - Will continue to monitor blood pressures and adjust medications as needed. (5) Debility Current Visit: Yes Status: Acute Plan: This is likely secondary to being bed-bound for the past week as patient was hospitalized for pancreatitis. -We will get physical therapy consultation and further recommendations for possible [facility] facility placement for further rehabilitation. (6) Chronic renal disease Onset Date: 10/19/17 Current Visit: No Status: Chronic Plan: Stable, we will continue to monitor creatinine and kidney function. Qualifiers: Chronic kidney disease stage: stage 3 (moderate) Qualified Code(s): N18.3 - Chronic kidney disease, stage 3 (moderate) (7) CAD (coronary artery disease) Onset Date: 10/19/17 Current Visit: No Status: Chronic Plan: Stable, continue home medications. Qualifiers: Coronary Disease-Associated Artery/Lesion type: [place] artery [place] vs. transplanted heart: [place] heart Associated angina: without angina Qualified Code(s): I25.10 - Atherosclerotic heart disease of [place] coronary artery without angina pectoris (8) PAD (peripheral artery disease) Onset Date: 03/29/18 Current Visit: No Status: Chronic (9) Depression with anxiety Onset Date: 10/11/17 Current Visit: No Status: Chronic Plan: Stable, restart home medications (10) Diabetes mellitus Onset Date: 10/19/17 Current Visit: No Status: Chronic Plan: Accu-Cheks and mild sliding scale insulin. Monitor and adjust as needed Qualifiers: Diabetes mellitus type: type 2 Diabetes mellitus longterm insulin use: without longterm use Diabetes mellitus complication status: with hyperglycemia Qualified Code(s): E11.65 - Type 2 diabetes mellitus with hyperglycemia (11) GERD (gastroesophageal reflux disease) Onset Date: 10/19/17 Current Visit: No Status: Chronic Qualifiers: Esophagitis presence: esophagitis presence not specified (12) Hypothyroidism Onset Date: 10/11/17 Current Visit: No Status: Chronic Plan: Restart home medication, stable at this time. Qualifiers: Hypothyroidism type: acquired Qualified Code(s): E03.9 - Hypothyroidism, unspecified (13) Obstructive sleep apnea Onset Date: 10/19/17 Current Visit: No Status: Chronic (14) On home oxygen therapy Current Visit: No Status: Chronic (15) Pulmonary hypertension Onset Date: 10/19/17 Current Visit: No Status: Chronic - Plan DVT prophylaxis: Lovenox GI prophylaxis: None Diet: Diabetic diet, fluid restriction Disposition: Admit to floor with tele. Pending symptomatic improvement as well as Physical therapy consultation/evaluation and social work. - Advance Directives Does patient have a Living Will: Yes Does patient have a Durable POA for Healthcare: Yes Time Spent Managing Pts Care (In Minutes): 55
[2019-06-20] MEDS ORDERED: FUROSEMIDE 20 MG TABLET PO SCH (17:00)
[2019-06-20] MEDS: LOSARTAN POTASSIUM 50 MG TABLET PO SCH (17:44)
[2019-06-20] MEDS: ENOXAPARIN 40 MG/0.4 ML SQ SCH (17:44)
[2019-06-20] MEDS: CARVEDILOL 6.25 MG TAB PO SCH ×2 (17:44→20:06)
[2019-06-20] MEDS: SERTRALINE HCL 50 MG TAB PO SCH (20:06)
[2019-06-20] MEDS: GABAPENTIN 300 MG CAP PO SCH (20:06)
--- NOTE | 2019-06-20 20:20 | EKG ---
Test Date: 2019-06-20 Test Time: 10:15:00 Range Rider: GIOVANNA MEASUREMENT RESULTS: Intervals: Rate: 70 [place]: QRSD: 178 QT: 470 QTc: 507 [place]: P: [place]: QRS: 252 T: 52 INTERPRETIVE STATEMENTS: Electronic ventricular pacemaker Compared to ECG 06/13/2019 12:49:35 No significant changes Electronically Signed On 06-20-19 20:18:35 CDT by Amadeo Jin
[2019-06-20] MEDS ORDERED: BIMATOPROST OPTH SCH (21:00)
[2019-06-20] MEDS ORDERED: HOME MED 1 EA UNK (Gabapentin [Neurontin] 600 MG) PO SCH (21:00)
[2019-06-20] MEDS ORDERED: BUDESONIDE 0.5 MG/2 ML NEB IH SCH (21:00)
[2019-06-20] MEDS: TEMAZEPAM 15 MG CAP PO PRN (23:41)
[2019-06-21] MEDS: IPRATROPIUM BROM 0.5MG/2.5ML NEB SCH ×4 (02:00→20:00)
[2019-06-21] MEDS: ALBUTEROL 2.5 MG/3 ML NEB SOL NEB SCH ×4 (02:00→20:00)
[2019-06-21] MEDS: LEVOTHYROXINE SOD 0.125 MG TAB PO SCH (05:36)
[2019-06-21 06:17] LABS: Bilirubin Total 0.6 mg/dL (0.2-1.0); Potassium 3.5 mmol/L (3.5-5.1); Protein, Total 6.9 g/dL (6.4-8.2)
[2019-06-21] MEDS: INSULIN -REGULAR HUMAN 50 UNIT/0.5 ML ML SQ SCH ×4 (07:30→21:00)
[2019-06-21 08:08] LABS: Absolute Lymphocytes (CBC) 1.1 K/uL (0.7-4.9); Hematocrit 50.3 % (36.0-45.0); Lymphocytes % 13.6 % (15.3-44.8); MPV 10.3 fL (7.6-11.3); RBC Red Blood Cell Count 5.48 M/uL (3.86-4.86)
[2019-06-21] MEDS ORDERED: POTASSIUM CL SA 10 MEQ TAB PO ONE (09:00)
[2019-06-21] MEDS ORDERED: FUROSEMIDE 20 MG/ 2ML VIAL IV SCH (09:00)
[2019-06-21] MEDS ORDERED: HOME MED 1 EA UNK (Famotidine [Famotidine] 40 MG) PO SCH (09:00)
[2019-06-21] MEDS ORDERED: HOME MED 1 EA UNK (Losartan Potassium [Cozaar] 100 MG) PO SCH (09:00)
[2019-06-21] MEDS: ENOXAPARIN 40 MG/0.4 ML SQ SCH (10:24)
[2019-06-21] MEDS: ASPIRIN 325 MG TAB PO SCH (10:24)
[2019-06-21] MEDS: AMLODIPINE 5 MG TAB PO SCH (10:25)
[2019-06-21] MEDS: GABAPENTIN 300 MG CAP PO SCH ×2 (10:25→21:15)
[2019-06-21] MEDS: FENOFIBRATE 160 MG TAB PO SCH (10:25)
[2019-06-21] MEDS: CARVEDILOL 6.25 MG TAB PO SCH ×2 (10:25→21:15)
[2019-06-21] MEDS: FUROSEMIDE 20 MG TABLET PO SCH ×2 (10:25→16:19)
[2019-06-21] MEDS: predniSONE 10 MG TAB PO SCH (10:25)
[2019-06-21] MEDS: BUDESONIDE 0.5 MG/2 ML NEB IH SCH ×2 (10:25→20:00)
[2019-06-21] MEDS: FAMOTIDINE 20 MG TAB PO SCH (10:26)
[2019-06-21] MEDS: LOSARTAN POTASSIUM 50 MG TABLET PO SCH (10:26)
--- NOTE | 2019-06-21 15:57 | P.PN ---
Subjective Date of Service: 06/21/19 Primary Care Provider: Dr. Stock [facility] Chief Complaint: Shortness of breath Subjective: No C/O voiced, Improving Patient seen and examined at bedside. No family at bedside. Chart reviewed and case discussed with nursing staff. Review of Systems 10-point ROS is otherwise unremarkable Physical Examination - Vital Signs Temperature: 98.1 F Blood Pressure: 140/73 Pulse: 70 Respirations: 20 Pulse Ox (%): 98 - Physical Exam General: Alert, In no apparent distress HEENT: Atraumatic, PERRLA, EOMI Neck: Supple, JVD not distended Respiratory: Clear to auscultation bilaterally, Normal air movement Cardiovascular: Regular rate/rhythm, Normal S1 S2 Gastrointestinal: Normal bowel sounds, No tenderness Musculoskeletal: No tenderness Integumentary: No rashes Neurological: Normal speech, Normal tone, Normal affect Lymphatics: No axilla or inguinal lymphadenopathy Assessment And Plan - Current Problems (Diagnosis) (1) Acute and chronic respiratory failure Current Visit: Yes Status: Acute Plan: Likely secondary to COPD exacerbation versus CHF exacerbation versus hypertensive urgency. Possibly a component of each -Provide supportive care with oxygen as needed. Continue to wean to 2 L, which is patient's home oxygen. -provide nebulizer treatments -continue oral steroids -IV Lasix for diuresis -bring blood pressure under better control -Fluid restriction -Daily weight Qualifiers: Respiratory failure complication: hypoxia Qualified Code(s): J96.21 - Acute and chronic respiratory failure with hypoxia (2) CHF (congestive heart failure) Current Visit: No Status: Chronic Plan: Continue diuresis with IV Lasix as noted above -fluid restriction -Daily weight Qualifiers: Heart failure type: diastolic Heart failure chronicity: chronic Qualified Code(s): I50.32 - Chronic diastolic (congestive) heart failure (3) COPD (chronic obstructive pulmonary disease) Onset Date: 10/11/17 Current Visit: No Status: Chronic Plan: we will continue breathing treatments, oral steroids and oxygen as needed. Qualifiers: COPD type: chronic bronchitis (4) Essential (primary) hypertension Onset Date: 10/11/17 Current Visit: Yes Status: Chronic Plan: Blood pressure is elevated initially, likely secondary to medication changes and confusion on how to give blood pressure medications. Son states that he does not think he can take care of her medications anymore. - Patient is currently on multiple high blood pressure medications. We will continue carvedilol, losartan, amlodipine. If blood pressure gets too low, will discontinue amlodipine. - Will continue to monitor blood pressures and adjust medications as needed. (5) Debility Current Visit: Yes Status: Acute Plan: This is likely secondary to being bed-bound for the past week as patient was hospitalized for pancreatitis. -We will continue with physical therapy consultation and further recommendations for possible long-term facility placement for further rehabilitation. (6) Chronic renal disease Onset Date: 10/19/17 Current Visit: No Status: Chronic Plan: Stable, we will continue to monitor creatinine and kidney function. Qualifiers: Chronic kidney disease stage: stage 3 (moderate) Qualified Code(s): N18.3 - Chronic kidney disease, stage 3 (moderate) (7) CAD (coronary artery disease) Onset Date: 10/19/17 Current Visit: No Status: Chronic Plan: Stable, continue home medications. Qualifiers: Coronary Disease-Associated Artery/Lesion type: [place] artery [place] vs. transplanted heart: [place] heart Associated angina: without angina Qualified Code(s): I25.10 - Atherosclerotic heart disease of [place] coronary artery without angina pectoris (8) PAD (peripheral artery disease) Onset Date: 03/29/18 Current Visit: No Status: Chronic (9) Depression with anxiety Onset Date: 10/11/17 Current Visit: No Status: Chronic Plan: Stable, restart home medications (10) Diabetes mellitus Onset Date: 10/19/17 Current Visit: No Status: Chronic Plan: Accu-Cheks and mild sliding scale insulin. Monitor and adjust as needed Qualifiers: Diabetes mellitus type: type 2 Diabetes mellitus extermination supervisor insulin use: without extermination supervisor use Diabetes mellitus complication status: with hyperglycemia Qualified Code(s): E11.65 - Type 2 diabetes mellitus with hyperglycemia (11) GERD (gastroesophageal reflux disease) Onset Date: 10/19/17 Current Visit: No Status: Chronic Qualifiers: Esophagitis presence: esophagitis presence not specified (12) Hypothyroidism Onset Date: 10/11/17 Current Visit: No Status: Chronic Plan: Restart home medication, stable at this time. Qualifiers: Hypothyroidism type: acquired Qualified Code(s): E03.9 - Hypothyroidism, unspecified (13) Obstructive sleep apnea Onset Date: 10/19/17 Current Visit: No Status: Chronic (14) On home oxygen therapy Current Visit: No Status: Chronic (15) Pulmonary hypertension Onset Date: 10/19/17 Current Visit: No Status: Chronic - Plan DVT prophylaxis: Lovenox GI prophylaxis: None Diet: Diabetic diet, fluid restriction Disposition: Pending symptomatic improvement as well as Physical therapy consultation/evaluation and social work.
[2019-06-21] MEDS: SERTRALINE HCL 50 MG TAB PO SCH (21:15)
[2019-06-21] MEDS: TEMAZEPAM 15 MG CAP PO PRN (21:16)
[2019-06-22] MEDS: IPRATROPIUM BROM 0.5MG/2.5ML NEB SCH ×4 (02:00→20:00)
[2019-06-22] MEDS: ALBUTEROL 2.5 MG/3 ML NEB SOL NEB SCH ×4 (02:00→20:00)
[2019-06-22 05:27] LABS: Absolute Lymphocytes (CBC) 1.3 K/uL (0.7-4.9); Hematocrit 46.7 % (36.0-45.0); Lymphocytes % 17.7 % (15.3-44.8); MPV 9.9 fL (7.6-11.3); RBC Red Blood Cell Count 5.11 M/uL (3.86-4.86)
[2019-06-22 05:40] LABS: Albumin 2.9 g/dL (3.4-5.0); Bilirubin Total 0.6 mg/dL (0.2-1.0); Potassium 3.4 mmol/L (3.5-5.1); Protein, Total 6.6 g/dL (6.4-8.2)
[2019-06-22] MEDS: LEVOTHYROXINE SOD 0.125 MG TAB PO SCH (06:24)
[2019-06-22] MEDS: INSULIN -REGULAR HUMAN 50 UNIT/0.5 ML ML SQ SCH ×4 (07:30→21:06)
[2019-06-22] MEDS: BUDESONIDE 0.5 MG/2 ML NEB IH SCH ×2 (08:20→20:00)
[2019-06-22] MEDS ORDERED: POTASSIUM 25 MEQ EFFERV TAB PO ONE (09:00)
[2019-06-22] MEDS: CARVEDILOL 6.25 MG TAB PO SCH ×2 (09:09→21:01)
[2019-06-22] MEDS: ENOXAPARIN 40 MG/0.4 ML SQ SCH (09:09)
[2019-06-22] MEDS: ASPIRIN 325 MG TAB PO SCH (09:09)
[2019-06-22] MEDS: LOSARTAN POTASSIUM 50 MG TABLET PO SCH (09:09)
[2019-06-22] MEDS: FENOFIBRATE 160 MG TAB PO SCH (09:10)
[2019-06-22] MEDS: AMLODIPINE 5 MG TAB PO SCH (09:10)
[2019-06-22] MEDS: GABAPENTIN 300 MG CAP PO SCH ×2 (09:10→21:01)
[2019-06-22] MEDS: FAMOTIDINE 20 MG TAB PO SCH (09:10)
[2019-06-22] MEDS: FUROSEMIDE 20 MG TABLET PO SCH ×2 (09:10→16:51)
[2019-06-22] MEDS: predniSONE 10 MG TAB PO SCH (09:10)
--- NOTE | 2019-06-22 09:42 | P.PN ---
Subjective Date of Service: 06/22/19 [facility] Chief Complaint: Shortness of breath Subjective: Improving Patient seen and examined at bedside. No family at bedside. Chart reviewed and case discussed with nursing staff. Working well with PT Physical Examination - Vital Signs Temperature: 97.0 F Blood Pressure: 134/65 Pulse: 69 Respirations: 20 Pulse Ox (%): 98 Assessment And Plan - Current Problems (Diagnosis) (1) Acute and chronic respiratory failure Current Visit: Yes Status: Acute Plan: Improving respiratory status. Likely secondary to COPD exacerbation versus CHF exacerbation versus hypertensive urgency. Possibly a component of each -Provide supportive care with oxygen as needed. Continue to wean to 2 L, which is patient's home oxygen. -provide nebulizer treatments -continue oral steroids -IV Lasix for diuresis -bring blood pressure under better control -Fluid restriction -Daily weight Qualifiers: Respiratory failure complication: hypoxia Qualified Code(s): J96.21 - Acute and chronic respiratory failure with hypoxia (2) CHF (congestive heart failure) Current Visit: No Status: Chronic Plan: Continue diuresis with PO Lasix as noted above -fluid restriction -Daily weight Qualifiers: Heart failure type: diastolic Heart failure chronicity: chronic Qualified Code(s): I50.32 - Chronic diastolic (congestive) heart failure (3) COPD (chronic obstructive pulmonary disease) Onset Date: 10/11/17 Current Visit: No Status: Chronic Plan: we will continue breathing treatments, oral steroids and oxygen as needed. Qualifiers: COPD type: chronic bronchitis (4) Essential (primary) hypertension Onset Date: 10/11/17 Current Visit: Yes Status: Chronic Plan: Blood pressure is elevated initially, likely secondary to medication changes and confusion on how to give blood pressure medications. Son states that he does not think he can take care of her medications anymore. - Patient is currently on multiple high blood pressure medications. We will continue carvedilol, losartan, amlodipine. If blood pressure gets too low, will discontinue amlodipine. - Will continue to monitor blood pressures and adjust medications as needed. (5) Debility Current Visit: Yes Status: Acute Plan: This is likely secondary to being bed-bound for the past week as patient was hospitalized for pancreatitis. -We will continue with physical therapy consultation and further recommendations for possible custodial facility placement for further rehabilitation. (6) Chronic renal disease Onset Date: 10/19/17 Current Visit: No Status: Chronic Plan: Stable, we will continue to monitor creatinine and kidney function. Qualifiers: Chronic kidney disease stage: stage 3 (moderate) Qualified Code(s): N18.3 - Chronic kidney disease, stage 3 (moderate) (7) CAD (coronary artery disease) Onset Date: 10/19/17 Current Visit: No Status: Chronic Plan: Stable, continue home medications. Qualifiers: Coronary Disease-Associated Artery/Lesion type: [place] artery [place] vs. transplanted heart: [place] heart Associated angina: without angina Qualified Code(s): I25.10 - Atherosclerotic heart disease of [place] coronary artery without angina pectoris (8) PAD (peripheral artery disease) Onset Date: 03/29/18 Current Visit: No Status: Chronic (9) Depression with anxiety Onset Date: 10/11/17 Current Visit: No Status: Chronic Plan: Stable, restart home medications (10) Diabetes mellitus Onset Date: 10/19/17 Current Visit: No Status: Chronic Plan: Accu-Cheks and mild sliding scale insulin. Monitor and adjust as needed Qualifiers: Diabetes mellitus type: type 2 Diabetes mellitus retirement insulin use: without retirement use Diabetes mellitus complication status: with hyperglycemia Qualified Code(s): E11.65 - Type 2 diabetes mellitus with hyperglycemia (11) GERD (gastroesophageal reflux disease) Onset Date: 10/19/17 Current Visit: No Status: Chronic Qualifiers: Esophagitis presence: esophagitis presence not specified (12) Hypothyroidism Onset Date: 10/11/17 Current Visit: No Status: Chronic Plan: Restart home medication, stable at this time. Qualifiers: Hypothyroidism type: acquired Qualified Code(s): E03.9 - Hypothyroidism, unspecified (13) Obstructive sleep apnea Onset Date: 10/19/17 Current Visit: No Status: Chronic (14) On home oxygen therapy Current Visit: No Status: Chronic (15) Pulmonary hypertension Onset Date: 10/19/17 Current Visit: No Status: Chronic - Plan DVT prophylaxis: Lovenox GI prophylaxis: None Diet: Diabetic diet, fluid restriction Disposition: Pending symptomatic improvement as well as Physical therapy consultation/evaluation and social work. Anticipate discharge in the next 24 hrs.
[2019-06-22] MEDS: TEMAZEPAM 15 MG CAP PO PRN (21:01)
[2019-06-22] MEDS: SERTRALINE HCL 50 MG TAB PO SCH (21:08)
[2019-06-23] MEDS: ALBUTEROL 2.5 MG/3 ML NEB SOL NEB SCH ×3 (02:00→14:20)
[2019-06-23] MEDS: IPRATROPIUM BROM 0.5MG/2.5ML NEB SCH ×3 (02:00→14:20)
[2019-06-23 04:45] LABS: Absolute Lymphocytes (CBC) 1.4 K/uL (0.7-4.9); Basophils % 0.6 % (0-1.3); Hematocrit 47.7 % (36.0-45.0); Lymphocytes % 17.5 % (15.3-44.8); MPV 9.9 fL (7.6-11.3); RBC Red Blood Cell Count 5.12 M/uL (3.86-4.86)
[2019-06-23 04:59] LABS: Albumin 2.9 g/dL (3.4-5.0); Bilirubin Total 0.5 mg/dL (0.2-1.0); Potassium 3.6 mmol/L (3.5-5.1); Protein, Total 6.8 g/dL (6.4-8.2)
[2019-06-23] MEDS: LEVOTHYROXINE SOD 0.125 MG TAB PO SCH (05:37)
[2019-06-23] MEDS ORDERED: POTASSIUM CL SA 10 MEQ TAB PO ONE (06:00)
[2019-06-23] MEDS: INSULIN -REGULAR HUMAN 50 UNIT/0.5 ML ML SQ SCH ×3 (07:30→16:30)
[2019-06-23] MEDS: BUDESONIDE 0.5 MG/2 ML NEB IH SCH (08:45)
[2019-06-23] MEDS: CARVEDILOL 6.25 MG TAB PO SCH (10:15)
[2019-06-23] MEDS: FENOFIBRATE 160 MG TAB PO SCH (10:15)
[2019-06-23] MEDS: FUROSEMIDE 20 MG TABLET PO SCH (10:16)
[2019-06-23] MEDS: LOSARTAN POTASSIUM 50 MG TABLET PO SCH (10:16)
[2019-06-23] MEDS: FAMOTIDINE 20 MG TAB PO SCH (10:16)
[2019-06-23] MEDS: AMLODIPINE 5 MG TAB PO SCH (10:17)
[2019-06-23] MEDS: ASPIRIN 325 MG TAB PO SCH (10:17)
[2019-06-23] MEDS: GABAPENTIN 300 MG CAP PO SCH (10:17)
[2019-06-23] MEDS: ENOXAPARIN 40 MG/0.4 ML SQ SCH (10:19)
[2019-06-23] MEDS: predniSONE 10 MG TAB PO SCH (10:22)
[2019-06-23 11:27] VITALS: O2SAT 98
[2019-06-23 18:59] VITALS: BP 147/71; TEMP 98.5
--- NOTE | 2019-07-02 16:24 | P.SSS ---
Patient History Date of Service: 06/23/19 [facility] Reason for admission: Shortness of breath History of Present Illness: this is a 83 old female with multiple medical problems including hypertension, diabetes, CHF, chronic renal disease, CAD, COPD, obstructive sleep apnea and pacemaker in place presented with shortness of breath. Per patient, she was recently discharged yesterday from [facility] for pancreatitis. Since then, she has not been feeling well. She attributes it to the fact that they changed her blood pressure medications upon discharge. She states that her blood pressure was really really had this morning so more in the 200s per month and she was having shortness of breath along with the headache. she does live with her son, and she called out to her son to help her catch her breath. this continued to worsen, and so she could not even walk to the bathroom from her bed. Therefore EMS was called and patient was brought to the emergency room. In the ER, her blood pressure was 160/85, heart rate is 70, respirations of 18, afebrile at 97.9, satting 97% on 2 L nasal cannula with, which is a home oxygen. This she has a BMI of 40.2. Her labs were fairly unremarkable except for troponin of 0.23, which is actually normal for her. Her pro BNP was 4070. Her chest x-ray was without any acute abnormalities. She had a echo done in January 2019, which showed 50% ejection fraction,dilated heart along with LVH and pulmonary hypertension. In the ER, she received nebulizer treatments along with IV Lasix 20 mg x1. She was then referred for admission for as she had increased work of breathing. At the time of my Exam, patient was alert oriented x3, in mild to moderate distress due to headache and respiratory status but she was hemodynamically stable. Allergies morphine Allergy (Verified 02/20/18 12:54) Hives ticlopidine HCl [From Ticlid] Adverse Reaction (Verified 02/20/18 12:54) Hives/Rash Sulfa (Sulfonamid Allergy (Mild, Uncoded 01/24/19 21:31) Unknown Home Medications: Famotidine 40 mg PO DAILY 10/08/17 Fenofibrate [Tricor*] 145 mg PO DAILY 10/08/17 Gabapentin [Neurontin] 600 mg PO BID 10/08/17 Tramadol HCl [Ultram] 50 mg PO TID 10/08/17 Aspirin 325 mg PO DAILY 02/09/18 Amlodipine [Norvasc*] 5 mg PO DAILY 03/28/18 Levothyroxine Sodium [Synthroid] 125 mcg PO DAILY 01/25/19 Acetaminophen [Pain Relief] 2 tab PO Q6HP PRN 06/20/19 Albuterol Sulfate [Albuterol Sulfate 0.083% Neb Soln] 2.5 mg IH Q4H PRN Bimatoprost [[place] Opthalmic Drops*] 2.5 ml OP BEDTIME 06/20/19 Budesonide [Pulmicort*] 1 puff IH BID 06/20/19 Carvedilol [Coreg*] 1 tab PO BID 06/20/19 Furosemide [Lasix*] 20 mg PO BIDL 06/20/19 Losartan Potassium [Cozaar] 100 mg PO DAILY 06/20/19 Losartan Potassium [Cozaar] 100 mg PO DAILY 06/20/19 Sertraline [Zoloft*] 50 mg PO BEDTIME 06/20/19 predniSONE [Deltasone*] 10 mg PO DAILY 06/20/19 - Past Medical/Surgical History Has patient received pneumonia vaccine in the past: Yes Diabetic: Yes -: HTN -: Hyperlipidemia -: Diabetes mellitus type 2 -: COPD -: History of DVT/PE -: History of atrial fibrillation requiring pacemaker -: GERD -: Depression -: Hypothyroidism -: Arthritis -: History of esophageal stricture -: Chronic renal disease -: Cholecystectomy -: Appendectomy -: Hysterectomy -: PANCREATIC SX D/T MASS, no cancer noted -: cataract surgery -: "leg artery" aneurysm Psychosocial/ Personal History: The patient is a . She has 4 children. - Family History Brother -: Seizures Mother -: Heart disease Father -: Hypertension, Stroke - Social History Smoking Status: Former smoker Alcohol use: No CD- Drugs: No Caffeine use: Yes Place of Residence: Home Review of Systems 10-point ROS is otherwise unremarkable Physical Examination - Vital Signs Temperature: 98.5 F Blood Pressure: 147/71 Pulse: 70 Respirations: 18 Pulse Ox (%): 98 - Physical Exam General: Alert, In no apparent distress HEENT: Atraumatic, PERRLA, Mucous membr. moist/pink, EOMI, Sclerae nonicteric Neck: Supple, 2+ carotid pulse no bruit, No LAD, Without JVD or thyroid abnormality Respiratory: Clear to auscultation bilaterally, Normal air movement Cardiovascular: Regular rate/rhythm, Normal S1 S2 Gastrointestinal: Normal bowel sounds, No tenderness Musculoskeletal: No tenderness Integumentary: No rashes Neurological: Normal gait, Normal speech, Normal strength at 5/5 x4 extr, Normal tone, Normal affect Lymphatics: No axilla or inguinal lymphadenopathy - Diagnosis (Problem(s)) (1) Acute and chronic respiratory failure Status: Acute Plan: Respiratory status back to baseline. Likely secondary to COPD exacerbation versus CHF exacerbation versus hypertensive urgency. Possibly a component of each -Provided with supportive care with oxygen as needed. Continue to wean to 2 L, which is patient's home oxygen. -provided nebulizer treatments, po steroids and IV lasix for diuresis. Patient did well overall through out the stay. her symptoms improved with the above interventions. Case was discussed with PCP. Patient was discharged in a stable manner with home health to help with her medication as well as PT at home. Qualifiers: Respiratory failure complication: hypoxia Qualified Code(s): J96.21 - Acute and chronic respiratory failure with hypoxia (2) CHF (congestive heart failure) Status: Chronic Qualifiers: Heart failure type: diastolic Heart failure chronicity: chronic Qualified Code(s): I50.32 - Chronic diastolic (congestive) heart failure (3) COPD (chronic obstructive pulmonary disease) Onset Date: 10/11/17 Status: Chronic Qualifiers: COPD type: chronic bronchitis (4) Essential (primary) hypertension Onset Date: 10/11/17 Status: Chronic Plan: Blood pressure was elevated initially, likely secondary to medication changes and confusion on how to give blood pressure medications. Son states that he does not think he can take care of her medications anymore. - Patient is currently on multiple high blood pressure medications. - A proper list of medications was made and provided to patient with written instructions. (5) Debility Status: Acute (6) Chronic renal disease Onset Date: 10/19/17 Status: Chronic Qualifiers: Chronic kidney disease stage: stage 3 (moderate) Qualified Code(s): N18.3 - Chronic kidney disease, stage 3 (moderate) (7) CAD (coronary artery disease) Onset Date: 10/19/17 Status: Chronic Qualifiers: Coronary Disease-Associated Artery/Lesion type: [place] artery [place] vs. transplanted heart: [place] heart Associated angina: without angina Qualified Code(s): I25.10 - Atherosclerotic heart disease of [place] coronary artery without angina pectoris (8) PAD (peripheral artery disease) Onset Date: 03/29/18 Status: Chronic (9) Depression with anxiety Onset Date: 10/11/17 Status: Chronic (10) Diabetes mellitus Onset Date: 10/19/17 Status: Chronic Plan: Accu-Cheks and mild sliding scale insulin. Monitor and adjust as needed Qualifiers: Diabetes mellitus type: type 2 Diabetes mellitus terminal superintendent insulin use: without terminal superintendent use Diabetes mellitus complication status: with hyperglycemia Qualified Code(s): E11.65 - Type 2 diabetes mellitus with hyperglycemia (11) GERD (gastroesophageal reflux disease) Onset Date: 10/19/17 Status: Chronic Qualifiers: Esophagitis presence: esophagitis presence not specified (12) Hypothyroidism Onset Date: 10/11/17 Status: Chronic Qualifiers: Hypothyroidism type: acquired Qualified Code(s): E03.9 - Hypothyroidism, unspecified (13) Obstructive sleep apnea Onset Date: 10/19/17 Status: Chronic (14) On home oxygen therapy Status: Chronic (15) Pulmonary hypertension Onset Date: 10/19/17 Status: Chronic - Disposition Discharge Date: 06/23/19 Disposition: DC HOME/HOME HEALTH CARE Condition: FAIR Patient Discharge Instructions: Please follow up with the primary care physician in 2-3 days. Please return to the emergency room for worsening symptoms. Diet: AHA Activity: Ad reshma Time Spent Managing Pts Care (In Minutes): 55
== END 2019-06-23 17:42 | disposition home health service (06) ==
LOC: ER 09:36 → ERHOLD 13:57 → 4TH 15:37
PROVIDERS: ADMIT Family Medicine; ATTEND Family Medicine
DX: J96.21 Acute and chronic respiratory failure with hypoxia (principal); E11.22 Type 2 diabetes mellitus with diabetic chronic kidney disease; E78.5 Hyperlipidemia, unspecified; J44.9 Chronic obstructive pulmonary disease, unspecified; K21.9 Gastro-esophageal reflux disease without esophagitis; E03.9 Hypothyroidism, unspecified; M19.90 Unspecified osteoarthritis, unspecified site; I13.0 Hypertensive heart and chronic kidney disease with heart failure and stage 1 through stage 4 chronic kidney disease, or unspecified chronic kidney disease; N18.3 Chronic kidney disease, stage 3 (moderate); I50.32 Chronic diastolic (congestive) heart failure; R53.81 Other malaise; I25.10 Atherosclerotic heart disease of native coronary artery without angina pectoris; I73.9 Peripheral vascular disease, unspecified; F41.8 Other specified anxiety disorders; G47.33 Obstructive sleep apnea (adult) (pediatric); I27.20 Pulmonary hypertension, unspecified; Z99.81 Dependence on supplemental oxygen; Z87.891 Personal history of nicotine dependence; Z86.718 Personal history of other venous thrombosis and embolism
CPT/HCPCS: 93005; 85025 ×4; 80048; 36415 ×2; 83735; 84100; 84132; 85610; 82962 ×12; 80076; 81003; 84484; 80053 ×3; 83880; 71045; 97110 ×2; 97116 ×3; 97161; 97530 ×2; 94760 ×9; 96374; 99285; J1940; J1650 ×4; G0378 ×6; J7512

== ENCOUNTER 2019-07-17 10:29 | Inpatient (IN) | payer OTHER, MEDICARE ==
[2019-07-17] MEDS ORDERED: FUROSEMIDE 40 MG/4 ML VIAL ONE (10:58)
--- NOTE | 2019-07-17 11:17 | RAD REPORT ---
EXAM DESCRIPTION: RAD - Chest Single View - 07/17/2019 11:10 am CLINICAL HISTORY: COPD;Dyspnea Chest pain. COMPARISON: Chest Single View dated 06/20/2019; Chest Single View dated 06/13/2019; Chest Single View d ated 01/24/2019; Chest Single View dated 02/08/2018 FINDINGS: Portable technique limits examination quality. The lungs are grossly clear. The heart is upper limit of normal in size with dual lead pacer device p resent. No displaced fractures. IMPRESSION: No acute intrathoracic process suspected.
--- NOTE | 2019-07-17 11:35 | EKG ---
Test Date: 2019-07-17 Test Time: 10:32:42 Salesforce Administrator: GIOVANNA MEASUREMENT RESULTS: Intervals: Rate: 70 IN: QRSD: 178 QT: 478 QTc: 516 [place]: P: IN: QRS: 253 T: 59 INTERPRETIVE STATEMENTS: Suspect unspecified pacemaker failure Ventricular-paced rhythm Abnormal ECG Compared to ECG 06/20/2019 10:15:00 No significant changes Electronically Signed On 07-17-19 11:35:11 CDT by Emir Armstrong
[2019-07-17 11:38] LABS: Absolute Lymphocytes (CBC) 0.8 K/uL (0.7-4.9); Hematocrit 47.2 % (36.0-45.0); Lymphocytes % 13.4 % (15.3-44.8); MPV 9.9 fL (7.6-11.3); RBC Red Blood Cell Count 5.16 M/uL (3.86-4.86)
[2019-07-17 11:39] LABS: Protime INR 1.1
[2019-07-17 11:53] LABS: Albumin 3.4 g/dL (3.4-5.0); Bilirubin Direct 0.3 mg/dL (0-0.2); Bilirubin Total 0.7 mg/dL (0.2-1.0); Magnesium 2.1 mg/dL (1.8-2.4); Potassium 3.8 mmol/L (3.5-5.1); Protein, Total 7.8 g/dL (6.4-8.2); Troponin (Emerg Dept Use Only) 0.11 ng/mL (0.0-0.045)
--- NOTE | 2019-07-17 12:48 | ER ---
Nurse's Notes [facility] Name: Fanny Arceo Age: 83 yrs Sex: Female : 1935 Arrival Date: 07/17/2019 Time: 10:33 Bed 15 Private MD: Diagnosis: Heart failure Presentation: 07/17 10:33 Presenting complaint: EMS states: 83 yr. old c/o SOB x 3 days. Home health was at the [facility] when EMS arrived, home health administered Albuterol nebulizer. When EMS arrived they administered Atrovent. Has a history of COPD, CHF, and HTN. Medications: Amlodipine and Lasix. Allergic to morphine. Wear O2 at home on 3 L NC with a 20 foot hose. Transition of care: patient was not received from another setting of care. Onset of symptoms was July 14, 2019. Risk Assessment: Do you want to hurt yourself or someone else? Patient reports no desire to harm self or others. Initial Sepsis Screen: Does the patient meet any 2 criteria? No. Patient's initial sepsis screen is negative. Does the patient have a suspected source of infection? No. Patient's initial sepsis screen is negative. Care prior to arrival: Medication(s) given: Albuterol Neb Atrovent Neb x 1. 10:33 Method Of Arrival: EMS: [facility] 10:33 Acuity: JESSE 3 rb1 Triage Assessment: 10:33 General: Appears in no apparent distress. comfortable, Behavior is calm, cooperative, rb1 Denies fever, feeling ill. Neuro: Level of Consciousness is awake, alert, obeys commands, Oriented to person, place, time, situation. Cardiovascular: Capillary refill < 3 seconds is brisk in bilateral fingers. Respiratory: Reports shortness of breath at rest cough that is dry, Onset: The symptoms/episode began/occurred chronic, the patient has mild shortness of breath. GI: No signs and/or symptoms were reported involving the gastrointestinal system. : No signs and/or symptoms were reported regarding the genitourinary system. Derm: Skin is pink, warm \T\ dry. Historical: - Allergies: 10:33 Atenolol; rb1 10:33 Morphine; rb1 10:33 Simvastatin; rb1 10:33 Sulfa (Sulfonamide Antibiotics); rb1 10:33 Ticlopidine HCl; rb1 - Home Meds: 10:33 albuterol sulfate 2.5 mg /3 mL (0.083 %) Inhl nebu Q 4 hrs PRN [Active]; amlodipine 5 rb1 mg tab 1 tab once daily [Active]; aspirin 325 mg Oral TbEC 1 tab once daily [Active]; famotidine 40 mg Oral tab 1 tab once daily [Active]; fenofibrate 145 MG Oral 1 cap once daily [Active]; gabapentin 600 mg Oral tab 1 tab twice a day [Active]; isorsorbide 60mg daily [Active]; levothyroxine 125 mcg tab 1 tab once daily [Active]; losartan-hydrochlorothiazide 100-25 mg Oral tab 1 tab once daily [Active]; metoprolol tartrate 25 mg Oral tab 1 tab once daily [Active]; prednisone 10 mg Oral tab 1 tab once daily [Active]; Ultram 50 mg Oral tab 1 tab twice a day [Active]; Zoloft 50 mg Oral tab 1 tab nightly [Active]; - PMHx: 10:33 Atrial Fib; CAD; CHF; chronic renal failure; Clot to right arm; COPD; Depression; rb1 Diabetes - IDDM; GERD; High Cholesterol; Hyperlipidemia; Hypertension; Hypothyroidism; neuropathy; Sleep Apnea; - PSHx: 10:33 Hysterectomy; Cholecystectomy; Appendectomy; Heart stents; pacemaker; Aneurysm of Leg rb1 Artery; - Immunization history:: Flu vaccine is not up to date. - Social history:: Smoking status: Patient/guardian denies using tobacco. - Ebola Screening: : Patient negative for fever greater than or equal to 101.5 degrees Fahrenheit, and additional compatible Ebola Virus Disease symptoms. Screenin:33 Abuse screen: Denies threats or abuse. Nutritional screening: No deficits noted. rb1 Tuberculosis screening: No symptoms or risk factors identified. 10:33 Fall Risk No fall in past 12 months (0 pts). Secondary diagnosis (15 points) impaired rb1 mobility, IV access (20 points). Ambulatory Aid- Crutches/Cane/Walker (15 pts). Gait- Impaired (20 pts.). Mental Status- Oriented to own ability (0 pts). Total Pugh Fall Scale indicates High Risk Score (45 or more points). Fall prevention measures have been instituted. Side Rails Up X 2 Placed Close to Nursing Station 1:1 Attendant Assigned Frequent Obs/Assessments Occuring Family Present and informed to notify staff if the need to leave the bedside As available patient and family educated on Fall Prevention Program and Strategies. Assessment: 10:33 General: See triage assessment. rb1 10:33 Respiratory: Airway is patent Respiratory effort is even, unlabored, Respiratory rb1 pattern is regular, Breath sounds with crackles bilaterally. 10:33 Pain: Denies pain. Cardiovascular: Rhythm is rb1 11:30 Reassessment: Patient appears in no apparent distress at this time. Patient and/or rb1 family updated on plan of care and expected duration. Pain level reassessed. Patient is alert, oriented x 3, equal unlabored respirations, skin warm/dry/pink. 12:30 Reassessment: Patient appears in no apparent distress at this time. No changes from rb1 previously documented assessment. 13:22 Reassessment: Patient appears in no apparent distress at this time. Patient and/or rb1 family updated on plan of care and expected duration. Pain level reassessed. Patient is alert, oriented x 3, equal unlabored respirations, skin warm/dry/pink. Patient denies pain at this time. 14:11 Reassessment: Patient appears in no apparent distress at this time. Patient and/or rb1 family updated on plan of care and expected duration. Pain level reassessed. Patient is alert, oriented x 3, equal unlabored respirations, skin warm/dry/pink. Patient denies pain at this time. 14:18 Reassessment: Tried to call report but the nurse is in a pt. room and will call back in rb1 about 15 minutes per Xu. 14:55 Reassessment: Gave report to NIKOLAS Forde. Information from the SBAR was given. All rb1 questions asked and answered. 15:00 Reassessment: Patient appears in no apparent distress at this time. Patient and/or rb1 family updated on plan of care and expected duration. Pain level reassessed. Patient is alert, oriented x 3, equal unlabored respirations, skin warm/dry/pink. Vital Signs: 10:33 BP 145 / 74; Pulse 70; Resp 19; Temp 98.2(O); Pulse Ox 97% on 3 lpm NC; Weight 88.45 kg rb1 (R); Height 5 ft. 6 in. (167.64 cm) (R); 11:33 BP 130 / 77; Pulse 68; Resp 18; Pulse Ox 99% on 3 lpm NC; Pain 0/10; rb1 13:27 BP 134 / 78; Pulse 75; Resp 17; Pulse Ox 100% on 3 lpm NC; Pain 0/10; rb1 14:09 BP 145 / 80; Pulse 70; Resp 16; Temp 97.6(O); Pulse Ox 97% on 3 lpm NC; Pain 0/10; rb1 15:00 BP 150 / 74; Pulse 70; Resp 17; Pulse Ox 99% on 3 lpm NC; rb1 10:33 Body Mass Index 31.47 (88.45 kg, 167.64 cm) rb1 ED Course: 10:30 Missed attempt(s): 22 gauge in left antecubital area. kj1 10:33 Patient arrived in ED. am2 10:33 Chantell Anderson, RN is Primary Nurse. rb1 10:33 Arm band placed on right wrist. rb1 10:34 Alexi Pearce MD is Attending Physician. gs 10:37 Triage completed. rb1 10:39 EKG done, by agriculture laboratory technician. reviewed by Alexi Pearce MD. at1 10:41 Patient has correct armband on for positive identification. Bed in low position. Call mh5 light in reach. Side rails up X2. Warm blanket given. hall monitor on. Pulse ox on. NIBP on. 11:11 XRAY Chest (1 view) In Process Unspecified. EDMS 11:20 Inserted saline lock: 22 gauge in left forearm, using aseptic technique. ,using aseptic sv technique. diffusics Blood collected. Flushed left forearm with 5 ml normal saline. 12:47 Jean-Claude Rodrigues is Hospitalizing Provider. gs 15:04 No provider procedures requiring assistance completed. Patient admitted, IV remains in rb1 place. Administered Medications: 11:39 Drug: Lasix 40 mg Route: IVP; Site: left forearm; rb1 12:00 Follow up: Response: No adverse reaction rb1 Output: 13:30 Urine: 250ml (Voided); Total: 250ml. rb1 14:09 Urine: 230ml (Voided); Total: 480ml. rb1 Outcome: 12:47 Decision to Hospitalize by Provider. gs 15:04 Admitted to Tele accompanied by tech, family with patient, via wheelchair, room 401, rb1 with oxygen, with chart, Other 3 L NC Report called to NIKOLAS Forde 15:04 Condition: stable rb1 15:10 Patient left the ED. rb1 Signatures: Dispatcher [employer] EDMelany Geronimo RN RN Jessica Gonzalez, truss driver helper EKG Tat1 Chantell Anderson RN RN rb1 Lainey Colon [facility] Jessica Damon 2 Alexi Pearce MD MD Juan Miguel, Lupe kj1 Corrections: (The following items were deleted from the chart) 15:28 15:27 Patient left the ED. rb1 rb1
--- NOTE | 2019-07-17 12:48 | EDPHYS ---
Physician Documentation [facility] Name: Fanny Arceo Age: 83 yrs Sex: Female : 1935 Arrival Date: 07/17/2019 Time: 10:33 Bed 15 Private MD: ED Physician Alexi Pearce HPI: 07/17 14:00 This 83 yrs old Female presents to ER via EMS with complaints of Breathing gs Difficulty. 14:00 The patient has shortness of breath with light activity, during heavy activity. Onset: gs The symptoms/episode began/occurred 2 day(s) ago, and became worse and became persistent. Duration: The symptoms are continuous. The patient's shortness of breath is aggravated by exertion, walking. Associated signs and symptoms: Pertinent positives: chest pain. Severity of symptoms: At their worst the symptoms were severe in the emergency department the symptoms have improved moderately. The patient has experienced similar episodes in the past, multiple times. Historical: - Allergies: 10:33 Atenolol; rb1 10:33 Morphine; rb1 10:33 Simvastatin; rb1 10:33 Sulfa (Sulfonamide Antibiotics); rb1 10:33 Ticlopidine HCl; rb1 - Home Meds: 10:33 albuterol sulfate 2.5 mg /3 mL (0.083 %) Inhl nebu Q 4 hrs PRN [Active]; amlodipine 5 rb1 mg tab 1 tab once daily [Active]; aspirin 325 mg Oral TbEC 1 tab once daily [Active]; famotidine 40 mg Oral tab 1 tab once daily [Active]; fenofibrate 145 MG Oral 1 cap once daily [Active]; gabapentin 600 mg Oral tab 1 tab twice a day [Active]; isorsorbide 60mg daily [Active]; levothyroxine 125 mcg tab 1 tab once daily [Active]; losartan-hydrochlorothiazide 100-25 mg Oral tab 1 tab once daily [Active]; metoprolol tartrate 25 mg Oral tab 1 tab once daily [Active]; prednisone 10 mg Oral tab 1 tab once daily [Active]; Ultram 50 mg Oral tab 1 tab twice a day [Active]; Zoloft 50 mg Oral tab 1 tab nightly [Active]; - PMHx: 10:33 Atrial Fib; CAD; CHF; chronic renal failure; Clot to right arm; COPD; Depression; rb1 Diabetes - IDDM; GERD; High Cholesterol; Hyperlipidemia; Hypertension; Hypothyroidism; neuropathy; Sleep Apnea; - PSHx: 10:33 Hysterectomy; Cholecystectomy; Appendectomy; Heart stents; pacemaker; Aneurysm of Leg rb1 Artery; - Immunization history:: Flu vaccine is not up to date. - Social history:: Smoking status: Patient/guardian denies using tobacco. - Ebola Screening: : Patient negative for fever greater than or equal to 101.5 degrees Fahrenheit, and additional compatible Ebola Virus Disease symptoms. ROS: 14:00 All other systems are negative. gs Exam: 14:00 Head/Face: Normocephalic, atraumatic. Eyes: Pupils equal round and reactive to light, gs extra-ocular motions intact. Lids and lashes normal. Conjunctiva and sclera are non-icteric and not injected. Cornea within normal limits. Periorbital areas with no swelling, redness, or edema. ENT: Nares patent. No nasal discharge, no septal abnormalities noted. Tympanic membranes are normal and external auditory canals are clear. Oropharynx with no redness, swelling, or masses, exudates, or evidence of obstruction, uvula midline. Mucous membranes moist. Neck: Trachea midline, no thyromegaly or masses palpated, and no cervical lymphadenopathy. Supple, full range of motion without nuchal rigidity, or vertebral point tenderness. No Meningismus. Chest/axilla: Normal chest wall appearance and motion. Nontender with no deformity. No lesions are appreciated. Cardiovascular: Regular rate and rhythm with a normal S1 and S2. No gallops, murmurs, or rubs. Normal PMI, no JVD. No pulse deficits. 14:00 Abdomen/GI: Soft, non-tender, with normal bowel sounds. No distension or tympany. No guarding or rebound. No evidence of tenderness throughout. Back: No spinal tenderness. No costovertebral tenderness. Full range of motion. Skin: Warm, dry with normal turgor. Normal color with no rashes, no lesions, and no evidence of cellulitis. MS/ Extremity: Pulses equal, no cyanosis. Neurovascular intact. Full, normal range of motion. Neuro: Awake and alert, GCS 15, oriented to person, place, time, and situation. Cranial nerves II-XII grossly intact. Motor strength 5/5 in all extremities. Sensory grossly intact. Cerebellar exam normal. Normal gait. 14:00 Constitutional: The patient appears alert, awake, in obvious distress, severely distressed. 14:00 Cardiovascular: Edema: 1+ edema to level of left ankle and right ankle. 14:00 ECG was reviewed by the Attending Physician. 14:00 Respiratory: moderate respiratory distress is noted, Respirations: tachypnea, Breath sounds: rales, that are moderate, rhonchi, that are moderate. Vital Signs: 10:33 BP 145 / 74; Pulse 70; Resp 19; Temp 98.2(O); Pulse Ox 97% on 3 lpm NC; Weight 88.45 kg rb1 (R); Height 5 ft. 6 in. (167.64 cm) (R); 11:33 BP 130 / 77; Pulse 68; Resp 18; Pulse Ox 99% on 3 lpm NC; Pain 0/10; rb1 13:27 BP 134 / 78; Pulse 75; Resp 17; Pulse Ox 100% on 3 lpm NC; Pain 0/10; rb1 14:09 BP 145 / 80; Pulse 70; Resp 16; Temp 97.6(O); Pulse Ox 97% on 3 lpm NC; Pain 0/10; rb1 15:00 BP 150 / 74; Pulse 70; Resp 17; Pulse Ox 99% on 3 lpm NC; rb1 10:33 Body Mass Index 31.47 (88.45 kg, 167.64 cm) rb1 MDM: 10:47 Patient medically screened. gs 14:00 Differential diagnosis: CHF exacerbation, Chronic Obstructive Pulmonary Disease gs Myocardial Infarction pneumonia. Data reviewed: vital signs, nurses notes, old medical records, lab test result(s), EKG, radiologic studies. Counseling: I had a detailed discussion with the patient and/or guardian regarding: the historical points, exam findings, and any diagnostic results supporting the discharge/admit diagnosis, the need for further work-up and treatment in the hospital. 07/17 10:35 Order name: Basic Metabolic Panel 07/17 10:35 Order name: CBC with Diff; Complete Time: 12:23 07/17 10:35 Order name: LFT's; Complete Time: 12:23 07/17 10:35 Order name: Magnesium; Complete Time: 12:23 07/17 10:35 Order name: NT PRO-BNP; Complete Time: 12:23 07/17 10:35 Order name: PT-INR; Complete Time: 12:23 07/17 10:35 Order name: Troponin (emerg Dept Use Only); Complete Time: 12:23 07/17 10:35 Order name: XRAY Chest (1 view); Complete Time: 11:40 07/17 10:35 Order name: EKG; Complete Time: 10:36 07/17 10:35 Order name: Cardiac monitoring; Complete Time: 10:42 07/17 10:35 Order name: EKG - Nurse/Tech; Complete Time: 12:16 07/17 10:35 Order name: IV Saline Lock; Complete Time: 12:16 gs 07/17 10:36 Order name: Basic Metabolic Panel; Complete Time: 12:23 EDCO 07/17 10:35 Order name: Labs collected and sent; Complete Time: 12:19 07/17 10:35 Order name: O2 Per Protocol; Complete Time: 12:19 07/17 10:35 Order name: O2 Sat Monitoring; Complete Time: 12:19 gs EC:00 Rate is 70 beats/min. Rhythm is regular. QRS interval is prolonged. T waves are gs Inverted. Clinical impression: Abnormal EKG without significant change. Interpreted by me. Administered Medications: 11:39 Drug: Lasix 40 mg Route: IVP; Site: left forearm; rb1 12:00 Follow up: Response: No adverse reaction rb1 Disposition: 14:00 Critical Care:. gs Disposition: 07/17/19 12:47 Hospitalization ordered by Jean-Claude Rodrigues for Observation. Preliminary diagnosis is Heart failure. - Bed requested for Telemetry/MedSurg (observation). - Status is Observation. rb1 - Condition is Stable. - Problem is an acute exacerbation. - Symptoms have improved. UTI on Admission? No Critical care time excluding procedures: 14:00 Critical care time: Bedside Care: 10 minutes, Consultation: 10 minutes, Family gs Intervention: 10 minutes. Total time: 30 minutes Signatures: Dispatcher [employer] Chantell Tello RN RN rb1 Alexi Pearce MD MD Dona Wilson gm Corrections: (The following items were deleted from the chart) 14:02 12:47 Hospitalization Ordered by Jean-Claude Rodrigues for Observation. Preliminary diagnosis gm is Heart failure. Bed requested for Telemetry/MedSurg (observation). Status is Observation. Condition is Stable. Problem is an acute exacerbation. Symptoms have improved. UTI on Admission? No. gs 15:27 14:02 07/17/2019 12:47 Hospitalization Ordered by Jean-Claude Rodrigues for Observation. rb1 Preliminary diagnosis is Heart failure. Bed requested for Telemetry/MedSurg (observation). Status is Observation. Condition is Stable. Problem is an acute exacerbation. Symptoms have improved. UTI on Admission? No. gm
[2019-07-17] MEDS: IPRATROPIUM BROM 0.5MG/2.5ML NEB SCH ×2 (15:24→20:00)
[2019-07-17] MEDS ORDERED: ACETAMINOPHEN 500 MG TAB PO PRN (15:24)
[2019-07-17] MEDS: ALBUTEROL 2.5 MG/3 ML NEB SOL NEB SCH ×2 (15:24→20:00)
[2019-07-17] MEDS ORDERED: ONDANSETRON 4 MG/2 ML VIAL IV PRN (15:24)
--- NOTE | 2019-07-17 16:28 | P.HP ---
Certification for Inpatient With expected LOS: >2 Midnights Practitioner: I am a practitioner with admitting privileges, knowledge of patient current condition, hospital course, and medical plan of care. Services: Services provided to patient in accordance with Admission requirements found in Title 42 Section 412.3 of the Code of Federal Regulations Patient History Date of Service: 07/17/19 Reason for admission: Shortness of breath History of Present Illness: 83-year-old woman with a history of congestive heart failure, COPD, chronic respiratory failure on 2 L of oxygen by nasal cannula at baseline presented emergency department with a complaint of progressive shortness of breath of about 1 week duration. Patient stated she used her nebulizers without improvement. She reports shortness of breath with minimal exertion and speaking. She also reports intermittent wheezing and nonproductive cough. She denied any fever. In the ED, patient was saturating 99% on 3 L oxygen by nasal cannula. Initial troponin is mildly elevated, BNP elevated, chest x-ray demonstrated no acute process. EKG demonstrated ventricle paced rhythm. Patient given a dose of 40 mg IV Lasix without much improvement. She is admitted for further management of COPD and CHF exacerbation. Allergies morphine Allergy (Verified 02/20/18 12:54) Hives ticlopidine HCl [From Ticlid] Adverse Reaction (Verified 02/20/18 12:54) Hives/Rash Sulfa (Sulfonamid Allergy (Mild, Uncoded 01/24/19 21:31) Unknown Home Medications: Famotidine 40 mg PO DAILY 10/08/17 Fenofibrate [Tricor*] 145 mg PO DAILY 10/08/17 Gabapentin [Neurontin] 600 mg PO BID 10/08/17 Tramadol HCl [Ultram] 50 mg PO TID 10/08/17 Aspirin 325 mg PO DAILY 02/09/18 Amlodipine [Norvasc*] 5 mg PO DAILY 03/28/18 Levothyroxine Sodium [Synthroid] 125 mcg PO DAILY 01/25/19 Acetaminophen [Pain Relief] 2 tab PO Q6HP PRN 06/20/19 Albuterol Sulfate [Albuterol Sulfate 0.083% Neb Soln] 2.5 mg IH Q4H PRN Bimatoprost [Lumigan Opthalmic Drops*] 2.5 ml OP BEDTIME 06/20/19 Budesonide [Pulmicort*] 1 puff IH BID 06/20/19 Carvedilol [Coreg*] 1 tab PO BID 06/20/19 Furosemide [Lasix*] 20 mg PO BIDL 06/20/19 Losartan Potassium [Cozaar] 100 mg PO DAILY 06/20/19 Losartan Potassium [Cozaar] 100 mg PO DAILY 06/20/19 Sertraline [Zoloft*] 50 mg PO BEDTIME 06/20/19 predniSONE [Deltasone*] 10 mg PO DAILY 06/20/19 - Past Medical/Surgical History Has patient received pneumonia vaccine in the past: No Diabetic: Yes -: HTN -: Hyperlipidemia -: Diabetes mellitus type 2 -: COPD -: History of DVT/PE -: History of atrial fibrillation requiring pacemaker -: GERD -: Depression -: Hypothyroidism -: Arthritis -: History of esophageal stricture -: Chronic renal disease -: Cholecystectomy -: Appendectomy -: Hysterectomy -: PANCREATIC SX D/T MASS, no cancer noted -: cataract surgery -: "leg artery" aneurysm Psychosocial/ Personal History: The patient is a . She has 4 children. - Family History Brother -: Seizures Mother -: Heart disease Father -: Hypertension, Stroke - Social History Smoking Status: Former smoker Alcohol use: No CD- Drugs: No Caffeine use: Yes Place of Residence: Home Review of Systems Other: General: No fever, no malaise, no unintentional weight loss. Eyes: No eye discharge, CVS: No chest pain, no palpitation, no lightheadedness. GI: No abdominal pain, no nausea no vomit, no constipation, no diarrhea. Genitourinary: No dysuria, no urinary frequency, no incontinence, no hematuria. Musculoskeletal: No joint pains, or joint swelling, no gait instability. Neurology: No headache, no asymmetric, weakness, no problem with swallowing. Except as documented, all other systems reviewed and negative. Physical Examination - Vital Signs Temperature: 97.6 F Blood Pressure: 150/74 Pulse: 70 Respirations: 17 - Physical Exam General: Alert, Oriented x3, Mild distress (From shortness of breath) HEENT: Normocephalic, PERRLA, Mucous membr. moist/pink Neck: Supple, JVD not distended, No Thyromegaly Respiratory: Crackles/rales, Expiratory wheezes Cardiovascular: No edema, Regular rate/rhythm, Normal S1 S2, Systolic murmur ( Diffuse) Gastrointestinal: Normal bowel sounds, Soft and benign, Non-distended, No tenderness Musculoskeletal: No swelling Integumentary: No rashes Neurological: Normal strength at 5/5 x4 extr, Cranial nerves 3-12 intact Lymphatics: No axilla or inguinal lymphadenopathy - Studies Laboratory Data (last 24 hrs) 07/17/19 11:20: PT 12.9 H, INR 1.10 07/17/19 11:20: WBC 6.0, Hgb 15.4 H, Hct 47.2 H, Plt Count 219 07/17/19 11:20: Sodium 143, Potassium 3.8, BUN 21 H, Creatinine 1.02, Glucose 127 H, Magnesium 2.1, Total Bilirubin 0.7, AST 29, ALT 18, Alkaline Phosphatase 36 L Imagings Data: EKG: Ventricular paced rhythm. Assessment and Plan - Problems (Diagnosis) (1) Acute on chronic diastolic CHF (congestive heart failure) Onset Date: 02/11/18 Current Visit: No Status: Acute (2) COPD exacerbation Current Visit: Yes Status: Acute (3) Chronic atrial fibrillation Current Visit: Yes Status: Acute (4) Essential (primary) hypertension Onset Date: 10/11/17 Current Visit: No Status: Chronic (5) Hypothyroidism Onset Date: 10/11/17 Current Visit: No Status: Chronic Qualifiers: Hypothyroidism type: acquired Qualified Code(s): E03.9 - Hypothyroidism, unspecified (6) Pulmonary hypertension Onset Date: 10/19/17 Current Visit: No Status: Chronic (7) Type 2 diabetes mellitus without complications Onset Date: 10/11/17 Current Visit: No Status: Chronic Qualifiers: Diabetes mellitus senior care insulin use: with exterminator use Qualified Code( s): E11.9 - Type 2 diabetes mellitus without complications; 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 Repeat echocardiogram Scheduled albuterol and ipratropium Brovana and budesonide nebs IV Solumedrol Insulin sliding scale. Continue home dose Synthroid Continue home antihypertensives. - Advance Directives Does patient have a Living Will: Yes Does patient have a Durable POA for Healthcare: Yes
[2019-07-17] MEDS ORDERED: GLUCAGON 1 MG/VIAL IM PRN (16:36)
[2019-07-17] MEDS ORDERED: D50W 25 GM/50 ML SYRINGE IV PRN (16:36)
[2019-07-17] MEDS: FUROSEMIDE 40 MG/4 ML VIAL IV SCH (16:51)
[2019-07-17] MEDS: ENOXAPARIN 40 MG/0.4 ML SQ SCH (16:52)
[2019-07-17] MEDS: METHYLPREDNISOLONE 40 MG INJ IV SCH (17:01)
[2019-07-17] MEDS: BUDESONIDE 0.5 MG/2 ML NEB NEB SCH (20:00)
[2019-07-17] MEDS: ARFORMOTEROL TARTRATE 15 MCG/2 ML VIAL.NEB NEB SCH (20:00)
[2019-07-17] MEDS: INSULIN -REGULAR HUMAN 50 UNIT/0.5 ML ML SQ SCH (21:00)
[2019-07-17] MEDS ORDERED: INFLUENZA VACCINE (for 3y+) 0.5 ML DOSE IMVAC ONE (21:00)
[2019-07-17] MEDS ORDERED: PNEUMOCOCCAL VACCINE 0.5 ML IMVAC ONE (21:00)
--- NOTE | 2019-07-17 21:32 | CON ---
History Of Present Illness: Ms. Arceo is 83, with pacemaker for an atrioventricular block. It seems that atrium paces the ventricle. In spite of the fact that the EKG reports suspected pacemaker failure, there is no pacemaker failure. She has coronary heart disease, multiple stents in her heart. She has congestive heart failure with normal ejection fraction. She had very severe COPD, wtih pulmonry hypertension. She was a cigarette smoker until quite recently. The last cardiac cath was in 2013. The last echocardiogram was January 2019. She has a normal ejection fraction, aortic valve sclerosis, and she has moderate pulmonary hypertension. Estimated right ventricular systolic pressure is 55. Medications: Home medications have been fenofibrate, famotidine, Neurontin, tramadol, aspirin, amlodipine, levothyroxine, Coreg, losartan, sertraline, prednisone, albuterol, budesonide, acetaminophen, losartan, furosemide and bimatoprost eye drops. Allergies: SHE IS ALLERGIC TO MORPHINE, TICLOPIDINE, AND SULFA DRUGS, HAS A LOT OF EXTERNAL CONTACT ALLERGIES. Physical Examination: General: She is 5 feet 6 inches, 195 pounds. Obese, alert and oriented. She is in moderate respiratory distress. She can speak about 3 words before she needs to take in a breath. Respiratory: She does not have crackles or wheezes. Heart: Within normal limits. An echocardiogram is scheduled for tomorrow. Impression: I suspect the patient is having worsening pulmonary hypertension causing her dyspnea. If her estimated PA pressure is over 100, I will discuss with Dr. Rodrigues for possible need for transfer to a tertiary care, and or initiation drug like Adcirca. LILIANA/ESTEFANIA Voice ID: [id number] Report ID: [id number] TELMA
[2019-07-17] MEDS ORDERED: ALBUTEROL 2.5 MG/3 ML NEB SOL IH PRN (22:48)
[2019-07-17] MEDS: HOME MED 1 EA UNK (Gabapentin [Neurontin] 600 MG) PO SCH (22:48)
[2019-07-18] MEDS: FENOFIBRATE 160 MG TAB PO SCH (00:22)
[2019-07-18] MEDS: AMLODIPINE 5 MG TAB PO SCH (00:22)
[2019-07-18] MEDS: SERTRALINE HCL 50 MG TAB PO SCH ×2 (00:23→20:38)
[2019-07-18] MEDS: TRAMADOL HCL 50 MG TAB PO SCH ×2 (00:23→20:38)
[2019-07-18] MEDS: IPRATROPIUM BROM 0.5MG/2.5ML NEB SCH ×4 (02:00→20:00)
[2019-07-18] MEDS: ALBUTEROL 2.5 MG/3 ML NEB SOL NEB SCH ×4 (02:00→20:00)
[2019-07-18] MEDS: METHYLPREDNISOLONE 40 MG INJ IV SCH ×5 (02:00→23:42)
[2019-07-18] MEDS: LEVOTHYROXINE SOD 0.125 MG TAB PO SCH (07:04)
[2019-07-18 07:05] LABS: Basophils % 0.3 % (0-1.3); Hematocrit 50.3 % (36.0-45.0); MPV 9.7 fL (7.6-11.3); RBC Red Blood Cell Count 5.49 M/uL (3.86-4.86)
[2019-07-18 07:18] LABS: Magnesium 2.2 mg/dL (1.8-2.4); Phosphorus 3.8 mg/dL (2.5-4.9); Potassium 3.6 mmol/L (3.5-5.1); Troponin I 0.14 ng/mL (0.0-0.045)
[2019-07-18] MEDS: BUDESONIDE 0.5 MG/2 ML NEB NEB SCH ×2 (07:30→20:00)
[2019-07-18] MEDS: ARFORMOTEROL TARTRATE 15 MCG/2 ML VIAL.NEB NEB SCH ×2 (07:30→20:00)
[2019-07-18] MEDS: INSULIN -REGULAR HUMAN 50 UNIT/0.5 ML ML SQ SCH ×4 (07:30→20:39)
[2019-07-18 08:54] LABS: Blood Morphology Comment NOT SEEN (NOT SEEN); Platelet Estimate ADEQ; Platelets, Giant FEW
[2019-07-18] MEDS ORDERED: FUROSEMIDE 20 MG TABLET PO SCH (09:00)
[2019-07-18] MEDS: HOME MED 1 EA UNK (Gabapentin [Neurontin] 600 MG) PO SCH ×2 (09:00→20:44)
[2019-07-18] MEDS ORDERED: predniSONE 10 MG TAB PO SCH (09:00)
[2019-07-18] MEDS: ASPIRIN 325 MG TAB PO SCH (09:50)
[2019-07-18] MEDS: ENOXAPARIN 40 MG/0.4 ML SQ SCH (09:50)
[2019-07-18] MEDS: FUROSEMIDE 40 MG/4 ML VIAL IV SCH ×2 (09:51→17:23)
[2019-07-18] MEDS: LOSARTAN POTASSIUM 50 MG TABLET PO SCH (10:39)
--- NOTE | 2019-07-18 11:31 | ECHO ---
HEIGHT: 5 ft 6 in WEIGHT: 195 lb 0 oz DATE OF STUDY: 07/18/[address]: pallavi chavez 2-DIMENSIONAL: YES M.MODE: YES DOPPLER: YES COLOR FLOW: YES TDS: YES PORTABLE: NO DEFINITY: NO BUBBLE STUDY: NO DIAGNOSIS: CONGESTIVE HEART FAILURE EXACERBATION CARDIAC HISTORY: CATHERIZATION: YES SURGERY: YES PROSTHETIC VALVE: NO PACEMAKER: YES MEASUREMENTS (cm) DIASTOLIC (NORMALS) SYSTOLIC (NORMALS) IVSd 1.2 (0.6-1.2) LA Diam 3.7 (1.9-4.0) LVEF 56% LVIDd 3.6 (3.5-5.7) LVIDs 2.6 (2.0-3.5) %FS 29% LVPWd 1.3 (0.6-1.2) Ao Diam 2.4 (2.0-3.7) 2 DIMENSIONAL ASSESSMENT: RIGHT ATRIUM: NORMAL LEFT ATRIUM: DILATED RIGHT VENTRICLE: PACEMAKER CATHETER LEFT VENTRICLE: LEFT VENTRICULAR HYPERTROPHY TRICUSPID VALVE: NORMAL MITRAL VALVE: MITRAL ANNULAR CALCIFICATION PULMONIC VALVE: NORMAL AORTIC VALVE: MILD SCLEROSIS PERICARDIAL EFFUSION: NONE AORTIC ROOT: NORMAL LEFT VENTRICULAR WALL MOTION: NORMAL DOPPLER/COLOR FLOW: MILD TRICUSPID REGURGITATION. ESTIMATED RIGHT VENTRICULAR SYSTOLIC PRESSURE 40mmHg, MILD PULMONARY HYPERTENSION. COMMENTS: NORMAL LEFT VENTRICULAR EJECTION FRACTION. LEFT VENTRICULAR HYPERTROPHY. DILATED LEFT ATRIUM. PACEMAKER IN RIGHT VENTRICLE. MITRAL ANNULAR CALCIFICATION. AORTIC SCLEROSIS WITH NO AORTIC STENOSIS OR AORTIC REGURGITATION. MILD TRICUSPID REGURGITATION. MILD PULMONARY HYPERTENSION. TECHNOLOGIST: Felicitas AGARWAL
--- NOTE | 2019-07-18 12:09 | P.PN ---
Subjective Date of Service: 07/18/19 Chief Complaint: Shortness of breath Patient states she feels better than yesterday. She was up in a chair during my examination. She ambulated with a walker during physical therapy session. She has been afebrile. She reports intermittent wheezing and shortness of breath with exertion. She denies any chest pain. Physical Examination - Vital Signs Temperature: 98.5 F Blood Pressure: 196/82 Pulse: 72 Respirations: 17 Pulse Ox (%): 91 - Physical Exam General: Alert, Oriented x3, Mild distress (From shortness of breath) HEENT: Mucous membr. moist/pink Neck: Supple, JVD not distended Respiratory: Diminished (Diffuse), Expiratory wheezes (Mild scattered wheezes.) Cardiovascular: No edema, Regular rate/rhythm, Normal S1 S2, No murmurs Gastrointestinal: Normal bowel sounds, Soft and benign, Non-distended, No tenderness Musculoskeletal: No swelling Integumentary: No rashes Assessment And Plan - Current Problems (Diagnosis) (1) Acute on chronic diastolic CHF (congestive heart failure) Onset Date: 02/11/18 Current Visit: Yes Status: Acute (2) COPD exacerbation Current Visit: Yes Status: Acute (3) Chronic atrial fibrillation Current Visit: Yes Status: Acute (4) Essential (primary) hypertension Onset Date: 10/11/17 Current Visit: No Status: Chronic (5) Hypothyroidism Onset Date: 10/11/17 Current Visit: No Status: Chronic Qualifiers: Hypothyroidism type: acquired Qualified Code(s): E03.9 - Hypothyroidism, unspecified (6) Pulmonary hypertension Onset Date: 10/19/17 Current Visit: Yes Status: Chronic (7) Type 2 diabetes mellitus without complications Onset Date: 10/11/17 Current Visit: Yes Status: Chronic Qualifiers: Diabetes mellitus 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 Low suspicion for ACS. BNP slightly improved. Echocardiogram: Normal EF. Moderate to severe pulmonary hypertension; RVSP of 40 Seen by Cardiology-Dr. Armstrong. Continue diuresis with IV lasix. Scheduled albuterol and ipratropium Brovana and budesonide nebs IV Solumedrol Insulin sliding scale. Continue home dose Synthroid Continue home antihypertensives. PT and OT. Case discussed with Dr. Sow per family request. Dr. Sow want to follow with her as an outpatient next week.
[2019-07-18] MEDS: GABAPENTIN 300 MG CAP PO SCH ×2 (12:24→20:38)
[2019-07-19] MEDS: IPRATROPIUM BROM 0.5MG/2.5ML NEB SCH ×4 (02:00→20:00)
[2019-07-19] MEDS: ALBUTEROL 2.5 MG/3 ML NEB SOL NEB SCH ×4 (02:00→20:00)
[2019-07-19] MEDS: METHYLPREDNISOLONE 40 MG INJ IV SCH ×3 (05:44→17:42)
[2019-07-19 05:54] LABS: Absolute Lymphocytes (CBC) 0.8 K/uL (0.7-4.9); Basophils % 0.2 % (0-1.3); Hematocrit 45.4 % (36.0-45.0); Lymphocytes % 5.4 % (15.3-44.8); RBC Red Blood Cell Count 4.99 M/uL (3.86-4.86)
[2019-07-19] MEDS: LEVOTHYROXINE SOD 0.125 MG TAB PO SCH (05:55)
[2019-07-19 06:11] LABS: Potassium 3.5 mmol/L (3.5-5.1)
[2019-07-19] MEDS: BUDESONIDE 0.5 MG/2 ML NEB NEB SCH ×2 (07:25→20:00)
[2019-07-19] MEDS: ARFORMOTEROL TARTRATE 15 MCG/2 ML VIAL.NEB NEB SCH ×2 (07:25→20:00)
[2019-07-19] MEDS ORDERED: POTASSIUM CL SA 10 MEQ TAB PO ONE (07:30)
[2019-07-19] MEDS: INSULIN -REGULAR HUMAN 50 UNIT/0.5 ML ML SQ SCH ×4 (07:59→21:58)
[2019-07-19] MEDS: ENOXAPARIN 40 MG/0.4 ML SQ SCH (08:14)
[2019-07-19] MEDS: AMLODIPINE 5 MG TAB PO SCH (08:14)
[2019-07-19] MEDS: GABAPENTIN 300 MG CAP PO SCH ×2 (08:15→20:34)
[2019-07-19] MEDS: TRAMADOL HCL 50 MG TAB PO SCH ×2 (08:15→20:34)
[2019-07-19] MEDS: LOSARTAN POTASSIUM 50 MG TABLET PO SCH (08:16)
[2019-07-19] MEDS: ASPIRIN 325 MG TAB PO SCH (08:17)
[2019-07-19] MEDS: FENOFIBRATE 160 MG TAB PO SCH (08:17)
[2019-07-19] MEDS: HOME MED 1 EA UNK (Gabapentin [Neurontin] 600 MG) PO SCH ×2 (08:18→21:00)
[2019-07-19 08:59] LABS: Blood Morphology Comment NOT SEEN (NOT SEEN); Platelet Estimate ADEQ; Platelets, Giant FEW
[2019-07-19] MEDS: FUROSEMIDE 20 MG TABLET PO SCH ×2 (10:11→16:33)
--- NOTE | 2019-07-19 11:01 | P.PN ---
Subjective Date of Service: 07/19/19 Chief Complaint: Shortness of breath Patient states she feels better today. She has been afebrile. She reports intermittent wheezing and shortness of breath with exertion. She denies any chest pain. Physical Examination - Vital Signs Temperature: 97.1 F Blood Pressure: 157/73 Pulse: 70 Respirations: 17 Pulse Ox (%): 97 - Physical Exam General: Alert, In no apparent distress, Oriented x3 HEENT: Mucous membr. moist/pink Neck: Supple, JVD not distended Respiratory: Clear to auscultation bilaterally, Normal air movement Cardiovascular: No edema, Regular rate/rhythm, No murmurs Gastrointestinal: Normal bowel sounds, Soft and benign, Non-distended, No tenderness Musculoskeletal: No swelling Integumentary: No rashes Assessment And Plan - Current Problems (Diagnosis) (1) Acute on chronic diastolic CHF (congestive heart failure) Onset Date: 02/11/18 Current Visit: Yes Status: Acute (2) COPD exacerbation Current Visit: Yes Status: Acute (3) Chronic atrial fibrillation Current Visit: Yes Status: Acute (4) Essential (primary) hypertension Onset Date: 10/11/17 Current Visit: No Status: Chronic (5) Hypothyroidism Onset Date: 10/11/17 Current Visit: No Status: Chronic Qualifiers: Hypothyroidism type: acquired Qualified Code(s): E03.9 - Hypothyroidism, unspecified (6) Pulmonary hypertension Onset Date: 10/19/17 Current Visit: Yes Status: Chronic (7) Type 2 diabetes mellitus without complications Onset Date: 10/11/17 Current Visit: Yes Status: Chronic Qualifiers: Diabetes mellitus residential insulin use: with residential use Qualified Code( s): E11.9 - Type 2 diabetes mellitus without complications; Z79.4 - care home ( current) use of insulin - Plan Troponin was mildly elevated but trended flat. Low suspicion for ACS. BNP slightly improved. Echocardiogram: Normal EF. Moderate to severe pulmonary hypertension; RVSP of 40 Seen by Cardiology-Dr. Armstrong. Status post IV Lasix with good diuresis. Resume home dose oral Lasix Continue scheduled albuterol and ipratropium Brovana and budesonide nebs IV Solumedrol 40 mg q.6 hr for 1 more day and then start taper. Insulin sliding scale. Continue home dose Synthroid Continue home antihypertensives. PT and OT. Case discussed with Dr. Sow per family request. Dr. Sow will follow with her as an outpatient next week.
[2019-07-19] MEDS: SERTRALINE HCL 50 MG TAB PO SCH (20:34)
[2019-07-20] MEDS: METHYLPREDNISOLONE 40 MG INJ IV SCH ×2 (00:46→05:30)
[2019-07-20] MEDS: ALBUTEROL 2.5 MG/3 ML NEB SOL NEB SCH ×2 (02:00→07:25)
[2019-07-20] MEDS: IPRATROPIUM BROM 0.5MG/2.5ML NEB SCH ×4 (02:00→20:00)
[2019-07-20] MEDS: LEVOTHYROXINE SOD 0.125 MG TAB PO SCH (05:30)
[2019-07-20 05:48] LABS: Absolute Lymphocytes (CBC) 0.4 K/uL (0.7-4.9); Basophils % 0.2 % (0-1.3); Hematocrit 43.2 % (36.0-45.0); Lymphocytes % 3.6 % (15.3-44.8); RBC Red Blood Cell Count 4.74 M/uL (3.86-4.86)
[2019-07-20 05:53] LABS: Potassium 3.9 mmol/L (3.5-5.1)
[2019-07-20] MEDS: BUDESONIDE 0.5 MG/2 ML NEB NEB SCH (07:25)
[2019-07-20] MEDS: ARFORMOTEROL TARTRATE 15 MCG/2 ML VIAL.NEB NEB SCH ×2 (07:25→20:00)
[2019-07-20] MEDS: INSULIN -REGULAR HUMAN 50 UNIT/0.5 ML ML SQ SCH ×4 (07:30→21:17)
[2019-07-20] MEDS: HOME MED 1 EA UNK (Gabapentin [Neurontin] 600 MG) PO SCH ×2 (09:00→21:00)
[2019-07-20] MEDS ORDERED: POTASSIUM CL SA 10 MEQ TAB PO ONE (09:00)
--- NOTE | 2019-07-20 09:12 | P.PN ---
Subjective Date of Service: 07/20/19 Chief Complaint: Shortness of breath Patient states she is feeling better. She ambulated with a walker in the hallway during physical therapy though felt short of breath with exertion She has been afebrile. Physical Examination - Vital Signs Temperature: 97.0 F Blood Pressure: 135/56 Pulse: 68 Respirations: 18 Pulse Ox (%): 97 - Physical Exam General: Alert, In no apparent distress, Oriented x3 HEENT: Mucous membr. moist/pink Neck: Supple, JVD not distended Respiratory: Normal air movement, Expiratory wheezes (Mild diffuse scattered wheezes.) Cardiovascular: No edema, Regular rate/rhythm, Normal S1 S2 Gastrointestinal: Normal bowel sounds, Soft and benign, Non-distended, No tenderness Musculoskeletal: No swelling Integumentary: No rashes Assessment And Plan - Current Problems (Diagnosis) (1) Acute on chronic diastolic CHF (congestive heart failure) Onset Date: 02/11/18 Current Visit: Yes Status: Acute (2) COPD exacerbation Current Visit: Yes Status: Acute (3) Chronic atrial fibrillation Current Visit: Yes Status: Acute (4) Essential (primary) hypertension Onset Date: 10/11/17 Current Visit: No Status: Chronic (5) Hypothyroidism Onset Date: 10/11/17 Current Visit: No Status: Chronic Qualifiers: Hypothyroidism type: acquired Qualified Code(s): E03.9 - Hypothyroidism, unspecified (6) Pulmonary hypertension Onset Date: 10/19/17 Current Visit: Yes Status: Chronic (7) Type 2 diabetes mellitus without complications Onset Date: 10/11/17 Current Visit: Yes Status: Chronic Qualifiers: Diabetes mellitus [facility] insulin use: with extermination supervisor use Qualified Code( s): E11.9 - Type 2 diabetes mellitus without complications; Z79.4 - residential ( current) use of insulin - Plan Troponin was mildly elevated but trended flat. Low suspicion for ACS. Echocardiogram: Normal EF. Moderate to severe pulmonary hypertension; RVSP of 40 Seen by Cardiology-Dr. Armstrong. Status post IV Lasix with good diuresis. Home dose oral Lasix resumed. Continue scheduled albuterol and ipratropium Brovana and budesonide nebs Taper IV Solu-Medrol to 40 mg q.[address] Sow. Insulin sliding scale. Continue home dose Synthroid Continue home antihypertensives. Continue PT and OT. Patient will need a new home health set up. Consult to foster care social worker.
[2019-07-20] MEDS: FENOFIBRATE 160 MG TAB PO SCH (09:53)
[2019-07-20] MEDS: FUROSEMIDE 20 MG TABLET PO SCH ×2 (09:53→16:51)
[2019-07-20] MEDS: ASPIRIN 325 MG TAB PO SCH (09:53)
[2019-07-20] MEDS: AMLODIPINE 5 MG TAB PO SCH (09:55)
[2019-07-20] MEDS: LOSARTAN POTASSIUM 50 MG TABLET PO SCH (09:55)
[2019-07-20] MEDS: TRAMADOL HCL 50 MG TAB PO SCH ×2 (09:55→21:18)
[2019-07-20] MEDS: GABAPENTIN 300 MG CAP PO SCH ×2 (09:55→21:18)
[2019-07-20] MEDS: ENOXAPARIN 40 MG/0.4 ML SQ SCH (09:57)
--- NOTE | 2019-07-20 10:25 | P.CNS ---
Date of Consult: 07/20/19 Reason for Consult: Pulmonary hypertension COPD Chief Complaint: Shortness of breath History of Present Illness: Patient is 83 years of age with a history of COPD diastolic dysfunction admitted with worsening dyspnea apparently she under ever medication as some lower extremity edema using compliant with her medication recent diagnosis of pancreatitis patient was aggressively diuresed is feeling better on the echo does not show any significant change in her pulmonary artery pressure there is no obvious mention of right ventricular dilatation although she does have a right ventricular pacemaker denies any fevers chills cough sputum hemoptysis or signs of an infection Allergies morphine Allergy (Verified 02/20/18 12:54) Hives ticlopidine HCl [From Ticlid] Adverse Reaction (Verified 02/20/18 12:54) Hives/Rash Sulfa (Sulfonamid Allergy (Mild, Uncoded 01/24/19 21:31) Unknown Home Medications: Fenofibrate [Tricor*] 145 mg PO BEDTIME 10/08/17 Gabapentin [Neurontin] 600 mg PO BID 10/08/17 Tramadol HCl [Ultram] 50 mg PO BID 10/08/17 Aspirin 325 mg PO DAILY 02/09/18 Amlodipine [Norvasc*] 5 mg PO DAILY 03/28/18 Levothyroxine Sodium [Synthroid] 125 mcg PO DAILY 01/25/19 Albuterol Sulfate [Albuterol Sulfate 0.083% Neb Soln] 2.5 mg IH Q4H PRN Furosemide [Lasix*] 20 mg PO BIDL 06/20/19 Sertraline [Zoloft*] 50 mg PO BEDTIME 06/20/19 predniSONE [Deltasone*] 10 mg PO DAILY 06/20/19 Losartan Potassium [Cozaar*] 1,000 mg PO DAILY 07/18/19 - Past Medical/Surgical History Diabetic: Yes -: HTN -: Hyperlipidemia -: Diabetes mellitus type 2 -: COPD -: History of DVT/PE -: History of atrial fibrillation requiring pacemaker -: GERD -: Depression -: Hypothyroidism -: Arthritis -: History of esophageal stricture -: Chronic renal disease -: Cholecystectomy -: Appendectomy -: Hysterectomy -: PANCREATIC SX D/T MASS, no cancer noted -: cataract surgery -: "leg artery" aneurysm Psychosocial/ Personal History: The patient is a . She has 4 children. - Family History Brother Medical History: Seizures Mother Medical History: Heart disease Father Medical History: Hypertension, Stroke - Social History Smoking Status: Unknown if ever smoked Alcohol use: No CD- Drugs: No Caffeine use: Yes Place of Residence: Home Review of Systems General: Weakness Respiratory: Shortness of Breath Cardiovascular: Edema Physical Examination Temp Pulse Resp BP Pulse Ox 97.0 F 68 18 135/56 L 97 07/20/19 09:12 07/20/19 09:55 07/20/19 09:55 07/20/19 09:55 07/20/19 09:55 General: Alert, In no apparent distress, Oriented x3 HEENT: Atraumatic Neck: Supple Respiratory: Clear to auscultation bilaterally Cardiovascular: No edema Gastrointestinal: Normal bowel sounds, Soft and benign - Problems (1) Acute on chronic diastolic CHF (congestive heart failure) Onset Date: 02/11/18 Current Visit: Yes Status: Acute Plan: Patient is 83 years of age admitted with worsening acute dyspnea most likely acute on chronic diastolic dysfunction also has COPD has home oxygen pulmonary per artery pressures on mild co cardiogram shows left ventricular hypertrophy patient has oxygen at home at count is mildly elevated chemistries reviewed BNP elevate vital signs oxygenation satisfactory apart from diuresis no other treatment for a pulmonary hypertension is indicated she needs a refill of her long-acting beta agonist which I will fax it through my office she stable to be discharged home follow up with me in 2 weeks chest x-ray is clear COPD changes Dc IV Solu-Medrol change to p.o. prednisone at low-dose spironolactone to Lasix
[2019-07-20] MEDS: SPIRONOLACTONE 25 MG TABLET PO SCH (12:34)
[2019-07-20] MEDS: predniSONE 10 MG TAB PO SCH ×2 (12:34→21:18)
[2019-07-20] MEDS ORDERED: ENOXAPARIN 40 MG/0.4 ML SQ ONE (18:00)
[2019-07-20] MEDS: SERTRALINE HCL 50 MG TAB PO SCH (21:20)
[2019-07-20 23:14] VITALS: O2SAT 98
[2019-07-21] MEDS: IPRATROPIUM BROM 0.5MG/2.5ML NEB SCH ×2 (02:00→08:01)
[2019-07-21 04:28] LABS: Potassium 4.3 mmol/L (3.5-5.1)
[2019-07-21] MEDS: LEVOTHYROXINE SOD 0.125 MG TAB PO SCH (06:18)
[2019-07-21] MEDS: INSULIN -REGULAR HUMAN 50 UNIT/0.5 ML ML SQ SCH ×2 (07:30→11:44)
[2019-07-21 07:31] VITALS: BMI 30.9
[2019-07-21 08:05] VITALS: TEMP 97.6
[2019-07-21] MEDS: ARFORMOTEROL TARTRATE 15 MCG/2 ML VIAL.NEB NEB SCH (08:05)
[2019-07-21] MEDS: FUROSEMIDE 20 MG TABLET PO SCH (08:10)
[2019-07-21] MEDS: TRAMADOL HCL 50 MG TAB PO SCH (08:10)
[2019-07-21] MEDS: AMLODIPINE 5 MG TAB PO SCH (08:10)
[2019-07-21] MEDS: ASPIRIN 325 MG TAB PO SCH (08:11)
[2019-07-21] MEDS: SPIRONOLACTONE 25 MG TABLET PO SCH (08:11)
[2019-07-21] MEDS: GABAPENTIN 300 MG CAP PO SCH (08:11)
[2019-07-21] MEDS: FENOFIBRATE 160 MG TAB PO SCH (08:11)
[2019-07-21] MEDS: LOSARTAN POTASSIUM 50 MG TABLET PO SCH (08:11)
[2019-07-21] MEDS: ENOXAPARIN 40 MG/0.4 ML SQ SCH (08:12)
[2019-07-21] MEDS: predniSONE 10 MG TAB PO SCH (08:12)
[2019-07-21] MEDS: HOME MED 1 EA UNK (Gabapentin [Neurontin] 600 MG) PO SCH (09:00)
--- NOTE | 2019-07-21 09:23 | P.DS ---
Admission Date: 07/17/19 Discharge Date: 07/21/19 Primary Care Provider: Dr. Espinoza; Cardiology-Dr. Jin; Pulmonary-Dr. Sow Disposition: DC HOME/HOME HEALTH CARE Discharge Condition: GOOD Reason for Admission: Shortness of breath Consultations: Cardiology-Dr. Armstrong Pulmonary-Dr. Sow Procedures: ECHO: Ejection fraction 56% LEFT VENTRICULAR WALL MOTION: NORMAL DOPPLER/COLOR FLOW: MILD TRICUSPID REGURGITATION. ESTIMATED RIGHT VENTRICULAR SYSTOLIC PRESSURE 40mmHg, MILD PULMONARY HYPERTENSION. COMMENTS: NORMAL LEFT VENTRICULAR EJECTION FRACTION. LEFT VENTRICULAR HYPERTROPHY. DILATED LEFT ATRIUM. PACEMAKER IN RIGHT VENTRICLE. MITRAL ANNULAR CALCIFICATION. AORTIC SCLEROSIS WITH NO AORTIC STENOSIS OR AORTIC REGURGITATION. MILD TRICUSPID REGURGITATION. MILD PULMONARY HYPERTENSION Medical problem list: Shortness of breath secondary to acute on chronic diastolic CHF with COPD exacerbation on chronic oxygen and steroids Chronic atrial fibrillation not on chronic anti coagulation therapy now with pacemaker Mild Pulmonary hypertension Hypothyroidism Diabetes mellitus type 2 non insulin dependent, diet controlled Diabetic neuropathy Chronic renal disease, stage III Hyperlipidemia Depression Obesity, BMI 30 Brief History of Present Illness: 83-year-old female presented to the emergency room with shortness of breath. Patient had difficulty breathing. She had intermittent wheezing and cough. Patient admitted for acute on chronic diastolic CHF with COPD exacerbation. Hospital Course: Patient presented with shortness of breath secondary to acute on chronic diastolic CHF with COPD exacerbation. Patient with underlying CHF and COPD. Patient on chronic oxygen and steroids. Patient was treated with diuretic therapy and COPD medication. Patient seen and evaluated by Cardiology and Pulmonology. Patient responded well to therapy. Spironolactone was added. Echo shows ejection fraction 56% with mild pulmonary hypertension. At discharge she is without significant shortness of breath. She appears to be at her baseline. At discharge patient will continue with home oxygen to maintain sats above 93%. For her COPD, she will continue with prednisone 10 mg 1 pill twice daily for 5 days then 10 mg daily. Patient will continue with COPD medication-albuterol/Atrovent 1 unit dose 3 times a day as needed for shortness of breath and Brovana 1 unit dose twice daily. For her CHF, patient will continue with 1500 cc per day fluid restriction and low-salt diet. She is to monitor her weight daily. If her weight increases by more than 5 lb she is to contact pulmonology or cardiology for further recommendation. Patient will continue with Lasix 20 mg 1 pill twice daily and new medication-spironolactone 25 mg daily. Recommend follow up with cardiology and pulmonology in 1-2 weeks to follow up this hospitalization. Home health and physical therapy will be arranged prior to discharge. Patient with underlying pulmonary hypertension. Echocardiogram shows ejection fraction 56% with mild pulmonary hypertension. Patient seen and evaluated by pulmonology. Patient responded to medical therapy. Recommend follow up with pulmonology within 1 week to further address. Patient may require further medication treatment. This can be further addressed by pulmonology. Patient with chronic atrial fibrillation not on chronic anti coagulation therapy now with pacemaker. Pacemaker evaluated by Cardiology. Pacemaker appears appropriate. Patient will continue with her current regimen. Patient with hypothyroidism. Patient will continue with levothyroxine 125 mcg daily. Patient with underlying hypertension. Blood pressures were elevated during her stay. Medication was adjusted, Norvasc was increased. At discharge she will continue with losartan 100 mg daily and Norvasc 5 mg 1 pill twice daily. She is to monitor blood pressures daily. If blood pressures remain above 150/90, she is to contact cardiology for further recommendation. Patient with diabetes mellitus type 2. Patient is [id number] and diet controlled. Patient will continue with diet control. Recommend blood sugars to remain less than 140 fasting and less than 200 after meals. Further monitoring can be done by her PCP. Patient may require medication in the near future if blood pressure remains elevated. This can be further addressed by her PCP. Patient with chronic renal disease, stage III. This has remained stable. Recommend to recheck lab-BMP in 1-2 weeks to monitor her progress. Recommend no further use of nonsteroidal anti-inflammatories. Future medications 1 to be renally dosed. Recommend follow up with nephrology as an outpatient to further monitor and address. Patient with hyperlipidemia. Patient will continue with her medication-Tricor 145 mg daily. Patient with diabetic neuropathy. Patient will continue with gabapentin 600 mg 1 pill twice daily and tramadol 50 mg 1 pill twice daily as needed for pain. Patient with depression. Patient will continue with sertraline 50 mg 1 pill daily. Vital Signs/Physical Exam: Temp Pulse Resp BP Pulse Ox 97.6 F 69 18 186/118 H 99 07/21/19 08:00 07/21/19 08:11 07/21/19 08:10 07/21/19 08:11 07/21/19 08:10 General: Alert, In no apparent distress, Oriented x3, Cooperative HEENT: Atraumatic Neck: Supple Respiratory: Clear to auscultation bilaterally, Normal air movement Cardiovascular: Normal pulses, Regular rate/rhythm Gastrointestinal: Normal bowel sounds, Soft and benign, Non-distended, No tenderness, No masses, No rebound, No guarding Musculoskeletal: No erythema, No tenderness, No warmth Integumentary: No tenderness/swelling, No erythema, No warmth, No cyanosis Neurological: Normal speech, Normal strength at 5/5 x4 extr, Normal tone, Normal affect Laboratory Data at Discharge: WBC 12.2 K/uL (4.3-10.9) H D 07/20/19 05:26 Hgb 14.4 g/dL (12.0-15.0) 07/20/19 05:26 Hct 43.2 % (36.0-45.0) 07/20/19 05:26 Plt Count 222 K/uL (152-406) 07/20/19 05:26 PT 12.9 SECONDS (9.5-12.5) H 07/17/19 11:20 INR 1.10 07/17/19 11:20 Sodium 139 mmol/L (136-145) 07/21/19 03:59 Potassium 4.3 mmol/L (3.5-5.1) 07/21/19 03:59 BUN 42 mg/dL (7-18) H 07/21/19 03:59 Creatinine 1.16 mg/dL (0.55-1.3) 07/21/19 03:59 Glucose 192 mg/dL (74-106) H 07/21/19 03:59 Phosphorus 3.8 mg/dL (2.5-4.9) 07/18/19 06:48 Magnesium 2.2 mg/dL (1.8-2.4) 07/18/19 06:48 Total Bilirubin 0.7 mg/dL (0.2-1.0) 07/17/19 11:20 AST 29 U/L (15-37) 07/17/19 11:20 ALT 18 U/L (12-78) 07/17/19 11:20 Alkaline Phosphatase 36 U/L (45-117) L 07/17/19 11:20 Troponin I 0.21 ng/mL (0.0-0.045) H 07/20/19 16:24 Home Medications: Fenofibrate [Tricor*] 145 mg PO BEDTIME 10/08/17 Gabapentin [Neurontin] 600 mg PO BID 10/08/17 Tramadol HCl [Ultram] 50 mg PO BID 10/08/17 Aspirin 325 mg PO DAILY 02/09/18 Levothyroxine Sodium [Synthroid] 125 mcg PO DAILY 01/25/19 Albuterol Sulfate [Albuterol Sulfate 0.083% Neb Soln] 2.5 mg IH Q4H PRN Sertraline [Zoloft*] 50 mg PO BEDTIME 06/20/19 predniSONE [Deltasone*] 10 mg PO DAILY 06/20/19 Losartan Potassium [Cozaar*] 100 mg PO DAILY 07/18/19 Amlodipine [Norvasc*] 5 mg PO BID #60 tab 07/21/19 Arformoterol Tartrate [Brovana] 15 mcg NEB BIDRESP #60 vial.neb 07/21/19 Furosemide [Lasix*] 20 mg PO BIDL #60 tab 07/21/19 Ipratropium Neb [Atrovent Neb] 0.2 mg IH TID PRN #90 amp 07/21/19 Spironolactone [Aldactone*] 25 mg PO DAILY #30 tab 07/21/19 predniSONE [Deltasone*] 10 mg PO BID #20 tab 07/21/19 New Medications: Amlodipine [Norvasc*] 5 mg PO BID #60 tab Arformoterol Tartrate [Brovana] 15 mcg NEB BIDRESP #60 vial.neb Furosemide [Lasix*] 20 mg PO BIDL #60 tab Ipratropium Neb [Atrovent Neb] 0.2 mg IH TID PRN #90 amp PRN Reason: Shortness Of Breath predniSONE [Deltasone*] 10 mg PO BID #20 tab Spironolactone [Aldactone*] 25 mg PO DAILY #30 tab Patient Discharge Instructions: 1. Recommend a follow up with her PCP within 1 week to follow up this hospitalization. Prior to discharge home health and physical therapy will be arranged. 2. Patient presented with shortness of breath secondary to acute on chronic diastolic CHF with COPD exacerbation. Patient with underlying CHF and COPD. Patient on chronic oxygen and steroids. Patient was treated with diuretic therapy and COPD medication. Patient seen and evaluated by Cardiology and Pulmonology. Patient responded well to therapy. Spironolactone was added. Echo shows ejection fraction 56% with mild pulmonary hypertension. At discharge she is without significant shortness of breath. She appears to be at her baseline. At discharge patient will continue with home oxygen to maintain sats above 93%. For her COPD, she will continue with prednisone 10 mg 1 pill twice daily for 5 days then 10 mg daily. Patient will continue with COPD medication-albuterol/Atrovent 1 unit dose 3 times a day as needed for shortness of breath and Brovana 1 unit dose twice daily. For her CHF, patient will continue with 1500 cc per day fluid restriction and low-salt diet. She is to monitor her weight daily. If her weight increases by more than 5 lb she is to contact pulmonology or cardiology for further recommendation. Patient will continue with Lasix 20 mg 1 pill twice daily and new medication-spironolactone 25 mg daily. Recommend follow up with cardiology and pulmonology in 1-2 weeks to follow up this hospitalization. 3. Patient with underlying pulmonary hypertension. Echocardiogram shows ejection fraction 56% with mild pulmonary hypertension. Patient seen and evaluated by pulmonology. Patient responded to medical therapy. Recommend follow up with pulmonology within 1 week to further address. Patient may require further medication treatment. This can be further addressed by pulmonology. 4. Patient with chronic atrial fibrillation not on chronic anti coagulation therapy now with pacemaker. Pacemaker evaluated by Cardiology. Pacemaker appears appropriate. Patient will continue with her current regimen. 5. Patient with hypothyroidism. Patient will continue with levothyroxine 125 mcg daily. 6. Patient with underlying hypertension. Blood pressures were elevated during her stay. Medication was adjusted, Norvasc was increased. At discharge she will continue with losartan 100 mg daily and Norvasc 5 mg 1 pill twice daily. She is to monitor blood pressures daily. If blood pressures remain above 150/90, she is to contact cardiology for further recommendation. 7. Patient with diabetes mellitus type 2. Patient is [id number] and diet controlled. Patient will continue with diet control. Recommend blood sugars to remain less than 140 fasting and less than 200 after meals. Further monitoring can be done by her PCP. Patient may require medication in the near future if blood pressure remains elevated. This can be further addressed by her PCP. 8. Patient with chronic renal disease, stage III. This has remained stable. Recommend to recheck lab-BMP in 1-2 weeks to monitor her progress. Recommend no further use of nonsteroidal anti-inflammatories. Future medications 1 to be renally dosed. Recommend follow up with nephrology as an outpatient to further monitor and address. 9. Patient with hyperlipidemia. Patient will continue with her medication-Tricor 145 mg daily. 10. Patient with diabetic neuropathy. Patient will continue with gabapentin 600 mg 1 pill twice daily and tramadol 50 mg 1 pill twice daily as needed for pain. 11. Patient with depression. Patient will continue with sertraline 50 mg 1 pill daily. Diet: AHA Activity: Fall precautions Time spent managing pt's care (in minutes): 55
[2019-07-21 09:48] VITALS: BP 145/65
--- NOTE | 2019-07-21 10:03 | EKG ---
Test Date: 2019-07-20 Test Time: 16:12:46 [place] Hand: DURAN MEASUREMENT RESULTS: Intervals: Rate: 70 ID: [id number] QRSD: 184 QT: 468 QTc: 505 [place]: P: 53 ID: [id number] QRS: 265 T: 67 INTERPRETIVE STATEMENTS: Electronic ventricular pacemaker Compared to ECG 07/17/2019 10:32:42 No significant changes Electronically Signed On 07-21-19 10:02:28 CDT by Emir Armstrong
[2019-07-21] MEDS ORDERED: INFLUENZA VACCINE (for 3y+) 0.5 ML DOSE IMVAC ONE (12:00)
== END 2019-07-21 13:16 | disposition home health service (06) | DRG 291 ==
LOC: ER 10:29 → ERHOLD 13:40 → 4TH 15:00
PROVIDERS: ADMIT Internal Medicine; ATTEND Internal Medicine
DX: I13.0 Hypertensive heart and chronic kidney disease with heart failure and stage 1 through stage 4 chronic kidney disease, or unspecified chronic kidney disease (principal); I50.33 Acute on chronic diastolic (congestive) heart failure; J44.1 Chronic obstructive pulmonary disease with (acute) exacerbation; N18.3 Chronic kidney disease, stage 3 (moderate); E11.22 Type 2 diabetes mellitus with diabetic chronic kidney disease; I48.91 Unspecified atrial fibrillation; Z95.0 Presence of cardiac pacemaker; E11.40 Type 2 diabetes mellitus with diabetic neuropathy, unspecified; E78.5 Hyperlipidemia, unspecified; F32.9 Major depressive disorder, single episode, unspecified; E66.9 Obesity, unspecified; Z68.30 Body mass index [BMI] 30.0-30.9, adult; I27.20 Pulmonary hypertension, unspecified; E03.9 Hypothyroidism, unspecified; Z88.2 Allergy status to sulfonamides; Z99.81 Dependence on supplemental oxygen; Z79.52 Long term (current) use of systemic steroids; Z23 Encounter for immunization
CPT/HCPCS: 36415; 71045; 80048; 80076; 82962; 83735; 83880; 84100; 84484; 85025; 85610; 90471; 93005; 93306; 94640; 94760; 96374; 97110; 97116; 97161; 97530; 99285; J1650; J1940; J2920; J7512; J7605; Q2035

== ENCOUNTER 2019-10-19 09:27 | Emergency (ER) | payer OTHER, MEDICARE ==
--- OUTSIDE RECORDS SUMMARY | 2019-10-19 09:32 | XMS REPORT ---
:1935 [facility] Address [address] [place] [address] [address]. Agu[address] [place] [address] Care Team Providers Name Role Phone KEILA [...] (BEAKER) (test 131 mg/dL 70-110 TESTED AT [facility] [address] [facility] devs=[id number]) [facility] [address] BASIC METABOLIC [id number] 06:08:00 Test Item Value Reference Range Comments SODIUM (BEAKER) (test 144 meq/L 136-145 inyt=826) POTASSIUM (BEAKER) (test 4.0 meq/L 3.5-5.1 ervh=537) CHLORIDE (BEAKER) (test 102 meq/L 98-107 heqv=351) CO2 (BEAKER) (test 36 meq/L 22-29 kebi=234) BLOOD UREA NITROGEN 18 mg/dL 7-21 (BEAKER) (test hqfq=424) CREATININE (BEAKER) (test 0.90 mg/dL 0.57-1.25 qllo=448) GLUCOSE RANDOM (BEAKER) 106 mg/dL 70-105 (test vfbz=009) CALCIUM (BEAKER) (test 9.4 mg/dL 8.4-10.2 uand=185) EGFR (BEAKER) (test 60 mL/min/1.73 sq m ESTIMATED GFR IS NOT qito=2725) ACCURATE CREATININE CLEARANCE IN PREDICTING GLOMERULAR FILTRATION RATE. ESTIMATED GFR IS NOT APPLICABLE FOR DIALYSIS PATIENTS. CBC W/PLT COUNT & AUTO [id number] 05:33:00 Test Item Value Reference Range Comments WHITE BLOOD CELL COUNT (BEAKER) (test rjez=144) 8.4 K/ L 3.5-10.5 RED BLOOD CELL COUNT (BEAKER) (test uqbk=187) 4.99 M/ L 3.93-5.22 HEMOGLOBIN (BEAKER) (test zajp=756) 14.7 GM/DL 11.2-15.7 HEMATOCRIT (BEAKER) (test xlfr=827) 48.2 % 34.1-44.9 MEAN CORPUSCULAR VOLUME (BEAKER) (test fxtf=274) 96.6 fL 79.4-94.8 MEAN CORPUSCULAR HEMOGLOBIN (BEAKER) (test 29.5 pg 25.6-32.2 dilx=394) MEAN CORPUSCULAR HEMOGLOBIN CONC (BEAKER) (test 30.5 GM/DL 32.2-35.5 oozo=248) RED CELL DISTRIBUTION WIDTH (BEAKER) (test 13.2 % 11.7-14.4 qxns=177) PLATELET COUNT (BEAKER) (test lwqd=214) 223 K/CU MM 150-450 MEAN PLATELET VOLUME (BEAKER) (test mbih=725) 11.7 fL 9.4-12.3 NUCLEATED RED BLOOD CELLS (BEAKER) (test 0 /100 WBC 0-0 eygr=263) NEUTROPHILS RELATIVE PERCENT (BEAKER) (test 74 % ehfa=826) LYMPHOCYTES RELATIVE PERCENT (BEAKER) (test 14 % oamn=213) MONOCYTES RELATIVE PERCENT (BEAKER) (test 8 % cpxh=617) EOSINOPHILS RELATIVE PERCENT (BEAKER) (test 3 % ujjc=805) BASOPHILS RELATIVE PERCENT (BEAKER) (test 1 % niqp=747) NEUTROPHILS ABSOLUTE COUNT (BEAKER) (test 6.23 K/ L 1.56-6.13 bxuv=532) LYMPHOCYTES ABSOLUTE COUNT (BEAKER) (test 1.21 K/ L 1.18-3.74 mtvc=889) MONOCYTES ABSOLUTE COUNT (BEAKER) (test 0.68 K/ L 0.24-0.36 nykj=209) EOSINOPHILS ABSOLUTE COUNT (BEAKER) (test 0.21 K/ L 0.04-0.36 sjll=975) BASOPHILS ABSOLUTE COUNT (BEAKER) (test 0.07 K/ L 0.01-0.08 llkh=885) IMMATURE GRANULOCYTES-RELATIVE PERCENT (BEAKER) 1 % 0-1 (test ovoh=9504) POCT-GLUCOSE [id number] 02:04:00 Test Item Value Reference Range Comments POC-GLUCOSE METER (BEAKER) 143 mg/dL 70-110 TESTED AT [address] (test wcde=1554) [facility] [address] POCT-GLUCOSE [id number] 17:20:00 Test Item Value Reference Range Comments POC-GLUCOSE METER (BEAKER) 148 mg/dL 70-110 TESTED AT [address] (test bwzh=6207) [facility] [address] POCT-GLUCOSE [id number] 13:03:00 Test Item Value Reference Range Comments POC-GLUCOSE METER (BEAKER) 179 mg/dL 70-110 TESTED AT [address] (test lqlx=1197) [facility] [address] POCT-GLUCOSE [id number] 08:04:00 Test Item Value Reference Range Comments POC-GLUCOSE METER (BEAKER) 82 mg/dL 70-110 TESTED AT [address] (test pwki=2711) [facility] [address] [id number] 06:10:00 Test Item Value Reference Range Comments MAGNESIUM (BEAKER) (test iuee=318) 1.9 mg/dL 1.6-2.6 BASIC METABOLIC [id number] 06:10:00 Test Item Value Reference Range Comments SODIUM (BEAKER) (test 142 meq/L 136-145 glba=576) POTASSIUM (BEAKER) (test 4.1 meq/L 3.5-5.1 jdrk=805) CHLORIDE (BEAKER) (test 104 meq/L 98-107 gtnm=686) CO2 (BEAKER) (test 32 meq/L 22-29 atkh=692) BLOOD UREA NITROGEN 28 mg/dL 7-21 (BEAKER) (test ykqr=270) CREATININE (BEAKER) (test 0.91 mg/dL 0.57-1.25 muhz=403) GLUCOSE RANDOM (BEAKER) 96 mg/dL 70-105 (test qyig=439) CALCIUM (BEAKER) (test 9.4 mg/dL 8.4-10.2 zoer=636) EGFR (BEAKER) (test 59 mL/min/1.73 sq m ESTIMATED GFR IS NOT hivq=4681) ACCURATE CREATININE CLEARANCE IN PREDICTING GLOMERULAR FILTRATION RATE. ESTIMATED GFR IS NOT APPLICABLE FOR DIALYSIS PATIENTS. CBC W/PLT COUNT & AUTO [id number] 05:25:00 Test Item Value Reference Range Comments WHITE BLOOD CELL COUNT (BEAKER) (test gnir=241) 7.0 K/ L 3.5-10.5 RED BLOOD CELL COUNT (BEAKER) (test ruwq=236) 4.68 M/ L 3.93-5.22 HEMOGLOBIN (BEAKER) (test oxsm=645) 14.1 GM/DL 11.2-15.7 HEMATOCRIT (BEAKER) (test xswl=007) 45.7 % 34.1-44.9 MEAN CORPUSCULAR VOLUME (BEAKER) (test ajed=464) 97.6 fL 79.4-94.8 MEAN CORPUSCULAR HEMOGLOBIN (BEAKER) (test 30.1 pg 25.6-32.2 sdbn=230) MEAN CORPUSCULAR HEMOGLOBIN CONC (BEAKER) (test 30.9 GM/DL 32.2-35.5 owzy=059) RED CELL DISTRIBUTION WIDTH (BEAKER) (test 13.4 % 11.7-14.4 uccl=460) PLATELET COUNT (BEAKER) (test hgwo=884) 217 K/CU MM 150-450 MEAN PLATELET VOLUME (BEAKER) (test jhat=948) 11.4 fL 9.4-12.3 NUCLEATED RED BLOOD CELLS (BEAKER) (test 0 /100 WBC 0-0 ofkl=778) NEUTROPHILS RELATIVE PERCENT (BEAKER) (test 71 % obhd=433) LYMPHOCYTES RELATIVE PERCENT (BEAKER) (test 17 % ullw=658) MONOCYTES RELATIVE PERCENT (BEAKER) (test 8 % gsqs=941) EOSINOPHILS RELATIVE PERCENT (BEAKER) (test 2 % gltv=274) BASOPHILS RELATIVE PERCENT (BEAKER) (test 1 % uuak=784) NEUTROPHILS ABSOLUTE COUNT (BEAKER) (test 4.97 K/ L 1.56-6.13 vyet=370) LYMPHOCYTES ABSOLUTE COUNT (BEAKER) (test 1.17 K/ L 1.18-3.74 ulbb=036) MONOCYTES ABSOLUTE COUNT (BEAKER) (test 0.57 K/ L 0.24-0.36 wygu=410) EOSINOPHILS ABSOLUTE COUNT (BEAKER) (test 0.17 K/ L 0.04-0.36 mgjz=549) BASOPHILS ABSOLUTE COUNT (BEAKER) (test 0.06 K/ L 0.01-0.08 mbzf=607) IMMATURE GRANULOCYTES-RELATIVE PERCENT (BEAKER) 0 % 0-1 (test jbnl=6110) POCT-GLUCOSE [id number] 00:02:00 Test Item Value Reference Range Comments POC-GLUCOSE METER (BEAKER) 191 mg/dL 70-110 TESTED AT [place] [id number] [facility] (test fqlx=7611) [facility] [address] POCT-GLUCOSE [id number] 17:16:00 Test Item Value Reference Range Comments POC-GLUCOSE METER (BEAKER) 170 mg/dL 70-110 TESTED AT [address] (test aqmj=2503) [place] [id number] POCT-GLUCOSE [id number] 09:03:00 Test Item Value Reference Range Comments POC-GLUCOSE METER (BEAKER) 97 mg/dL 70-110 TESTED AT [address] (test qqmc=9272) [place] [address] [id number] 07:03:00 Test Item Value Reference Range Comments MAGNESIUM (BEAKER) (test tetn=600) 1.9 mg/dL 1.6-2.6 BASIC METABOLIC [id number] 07:03:00 Test Item Value Reference Range Comments SODIUM (BEAKER) (test 141 meq/L 136-145 rblk=955) POTASSIUM (BEAKER) (test 4.0 meq/L 3.5-5.1 uckt=202) CHLORIDE (BEAKER) (test 104 meq/L 98-107 qgbf=044) CO2 (BEAKER) (test 30 meq/L 22-29 fdvz=019) BLOOD UREA NITROGEN 23 mg/dL 7-21 (BEAKER) (test tmar=916) CREATININE (BEAKER) (test 0.99 mg/dL 0.57-1.25 dpjf=233) GLUCOSE RANDOM (BEAKER) 93 mg/dL 70-105 (test yscv=082) CALCIUM (BEAKER) (test 9.3 mg/dL 8.4-10.2 akjz=602) EGFR (BEAKER) (test 53 mL/min/1.73 sq m ESTIMATED GFR IS NOT exjt=9140) ACCURATE CREATININE CLEARANCE IN PREDICTING GLOMERULAR FILTRATION RATE. ESTIMATED GFR IS NOT APPLICABLE FOR DIALYSIS PATIENTS. [id number] 07:03:00 Test Item Value Reference Range Comments LIPASE (BEAKER) (test svft=740) 101 U/L 8-78 CBC W/PLT COUNT & AUTO [id number] 06:46:00 Test Item Value Reference Range Comments WHITE BLOOD CELL COUNT (BEAKER) (test lxan=630) 8.3 K/ L 3.5-10.5 RED BLOOD CELL COUNT (BEAKER) (test xosw=857) 4.88 M/ L 3.93-5.22 HEMOGLOBIN (BEAKER) (test nulv=190) 14.3 GM/DL 11.2-15.7 HEMATOCRIT (BEAKER) (test tkpt=600) 47.6 % 34.1-44.9 MEAN CORPUSCULAR VOLUME (BEAKER) (test swmz=301) 97.5 fL 79.4-94.8 MEAN CORPUSCULAR HEMOGLOBIN (BEAKER) (test 29.3 pg 25.6-32.2 uvea=159) MEAN CORPUSCULAR HEMOGLOBIN CONC (BEAKER) (test 30.0 GM/DL 32.2-35.5 upmf=005) RED CELL DISTRIBUTION WIDTH (BEAKER) (test 13.2 % 11.7-14.4 vjri=723) PLATELET COUNT (BEAKER) (test vtvt=014) 216 K/CU MM 150-450 MEAN PLATELET VOLUME (BEAKER) (test tlzc=413) 11.3 fL 9.4-12.3 NUCLEATED RED BLOOD CELLS (BEAKER) (test 0 /100 WBC 0-0 svea=587) NEUTROPHILS RELATIVE PERCENT (BEAKER) (test 76 % jrah=567) LYMPHOCYTES RELATIVE PERCENT (BEAKER) (test 13 % srtg=654) MONOCYTES RELATIVE PERCENT (BEAKER) (test 7 % srlv=169) EOSINOPHILS RELATIVE PERCENT (BEAKER) (test 3 % nxfu=553) BASOPHILS RELATIVE PERCENT (BEAKER) (test 1 % fkcg=512) NEUTROPHILS ABSOLUTE COUNT (BEAKER) (test 6.34 K/ L 1.56-6.13 bffa=318) LYMPHOCYTES ABSOLUTE COUNT (BEAKER) (test 1.05 K/ L 1.18-3.74 uhkn=723) MONOCYTES ABSOLUTE COUNT (BEAKER) (test 0.61 K/ L 0.24-0.36 klof=996) EOSINOPHILS ABSOLUTE COUNT (BEAKER) (test 0.26 K/ L 0.04-0.36 njhh=561) BASOPHILS ABSOLUTE COUNT (BEAKER) (test 0.06 K/ L 0.01-0.08 zeeu=537) IMMATURE GRANULOCYTES-RELATIVE PERCENT (BEAKER) 0 % 0-1 (test qbss=6363) POCT-GLUCOSE [id number] 22:21:00 Test Item Value Reference Range Comments POC-GLUCOSE METER (BEAKER) 103 mg/dL 70-110 TESTED AT [address] (test dcej=0494) [place] [id number] POCT-GLUCOSE [id number] 17:07:00 Test Item Value Reference Range Comments POC-GLUCOSE METER (BEAKER) 147 mg/dL 70-110 TESTED AT [address] (test tdoi=0287) [place] [id number] POCT-GLUCOSE [id number] 09:05:00 Test Item Value Reference Range Comments POC-GLUCOSE METER (BEAKER) 117 mg/dL 70-110 TESTED AT [address] (test wntp=6482) [facility] [address] CBC W/PLT COUNT & AUTO [id number] 07:06:00 Test Item Value Reference Range Comments WHITE BLOOD CELL COUNT (BEAKER) (test xnxm=836) 10.5 K/ L 3.5-10.5 RED BLOOD CELL COUNT (BEAKER) (test bbdp=801) 5.13 M/ L 3.93-5.22 HEMOGLOBIN (BEAKER) (test eiru=388) 15.1 GM/DL 11.2-15.7 HEMATOCRIT (BEAKER) (test phrh=024) 50.7 % 34.1-44.9 MEAN CORPUSCULAR VOLUME (BEAKER) (test tpnm=103) 98.8 fL 79.4-94.8 MEAN CORPUSCULAR HEMOGLOBIN (BEAKER) (test 29.4 pg 25.6-32.2 iqsp=969) MEAN CORPUSCULAR HEMOGLOBIN CONC (BEAKER) (test 29.8 GM/DL 32.2-35.5 yeam=796) RED CELL DISTRIBUTION WIDTH (BEAKER) (test 13.1 % 11.7-14.4 esej=150) PLATELET COUNT (BEAKER) (test nzlc=688) 230 K/CU MM 150-450 MEAN PLATELET VOLUME (BEAKER) (test xfsh=433) 11.6 fL 9.4-12.3 NUCLEATED RED BLOOD CELLS (BEAKER) (test 0 /100 WBC 0-0 lbfo=256) NEUTROPHILS RELATIVE PERCENT (BEAKER) (test 79 % vkea=304) LYMPHOCYTES RELATIVE PERCENT (BEAKER) (test 11 % upaq=829) MONOCYTES RELATIVE PERCENT (BEAKER) (test 7 % dabd=242) EOSINOPHILS RELATIVE PERCENT (BEAKER) (test 3 % obhe=934) BASOPHILS RELATIVE PERCENT (BEAKER) (test 1 % bigo=006) NEUTROPHILS ABSOLUTE COUNT (BEAKER) (test 8.32 K/ L 1.56-6.13 ymko=636) LYMPHOCYTES ABSOLUTE COUNT (BEAKER) (test 1.13 K/ L 1.18-3.74 mgyc=611) MONOCYTES ABSOLUTE COUNT (BEAKER) (test 0.68 K/ L 0.24-0.36 scte=012) EOSINOPHILS ABSOLUTE COUNT (BEAKER) (test 0.26 K/ L 0.04-0.36 ftrt=811) BASOPHILS ABSOLUTE COUNT (BEAKER) (test 0.07 K/ L 0.01-0.08 ezuv=529) IMMATURE GRANULOCYTES-RELATIVE PERCENT (BEAKER) 1 % 0-1 (test egxl=4269) [id number] 06:38:00 Test Item Value Reference Range Comments MAGNESIUM (BEAKER) (test 2.0 mg/dL 1.6-2.6 Specimen slightly hemolyzed ktrs=730) BASIC METABOLIC [id number] 06:38:00 Test Item Value Reference Range Comments SODIUM (BEAKER) (test 141 meq/L 136-145 dxqo=331) POTASSIUM (BEAKER) (test 4.3 meq/L 3.5-5.1 Specimen slightly knpi=367) hemolyzed CHLORIDE (BEAKER) (test 106 meq/L 98-107 chyh=917) CO2 (BEAKER) (test 23 meq/L 22-29 oopx=008) BLOOD UREA NITROGEN 20 mg/dL 7-21 (BEAKER) (test aznw=850) CREATININE (BEAKER) (test 0.81 mg/dL 0.57-1.25 Specimen slightly wodh=472) hemolyzed GLUCOSE RANDOM (BEAKER) 105 mg/dL 70-105 (test vgqk=669) CALCIUM (BEAKER) (test 9.2 mg/dL 8.4-10.2 lhqf=580) EGFR (BEAKER) (test 67 mL/min/1.73 sq m ESTIMATED GFR IS NOT qmjk=0616) ACCURATE CREATININE CLEARANCE IN PREDICTING GLOMERULAR FILTRATION RATE. ESTIMATED GFR IS NOT APPLICABLE FOR DIALYSIS PATIENTS. HEPATIC FUNCTION [id number] 06:38:00 Test Item Value Reference Range Comments TOTAL PROTEIN (BEAKER) (test 6.9 gm/dL 6.0-8.3 Specimen slightly hemolyzed ksdp=077) ALBUMIN (BEAKER) (test 3.4 g/dL 3.5-5.0 Specimen slightly hemolyzed bjxy=8124) BILIRUBIN TOTAL (BEAKER) (test 0.8 mg/dL 0.2-1.2 Specimen slightly hemolyzed wmzc=070) BILIRUBIN DIRECT (BEAKER) (test 0.3 mg/dL 0.1-0.5 Specimen slightly hemolyzed jows=497) ALKALINE PHOSPHATASE (BEAKER) 33 U/L 40-150 (test ysgz=357) AST (SGOT) (BEAKER) (test 32 U/L 5-34 Specimen slightly hemolyzed eqvm=999) ALT (SGPT) (BEAKER) (test 17 U/L 6-55 Specimen slightly hemolyzed ilxf=906) [id number] 06:38:00 Test Item Value Reference Range Comments LIPASE (BEAKER) (test gldw=963) 122 U/L 8-78 POCT-GLUCOSE [id number] 21:48:00 Test Item Value Reference Range Comments POC-GLUCOSE METER (BEAKER) 102 mg/dL 70-110 TESTED AT [address] (test vlbb=7900) [facility] [address] POCT-GLUCOSE [id number] 17:46:00 Test Item Value Reference Range Comments POC-GLUCOSE METER (BEAKER) 145 mg/dL 70-110 TESTED AT [address] (test axms=6804) [facility] [address] POCT-GLUCOSE [id number] 12:35:00 Test Item Value Reference Range Comments POC-GLUCOSE METER (BEAKER) 158 mg/dL 70-110 TESTED AT [address] (test uhgh=6636) [place] [id number] POCT-GLUCOSE [id number] 07:47:00 Test Item Value Reference Range Comments POC-GLUCOSE METER (BEAKER) 119 mg/dL 70-110 TESTED AT [facility] [address] (test ecsi=2826) [facility] [address] [id number] 06:40:00 Test Item Value Reference Range Comments LIPASE (BEAKER) (test ubuj=075) 165 U/L 8-78 BASIC METABOLIC [id number] 06:40:00 Test Item Value Reference Range Comments SODIUM (BEAKER) (test 140 meq/L 136-145 jhod=815) POTASSIUM (BEAKER) (test 4.0 meq/L 3.5-5.1 Specimen slightly hkih=140) hemolyzed CHLORIDE (BEAKER) (test 102 meq/L 98-107 hbpr=745) CO2 (BEAKER) (test 29 meq/L 22-29 gody=121) BLOOD UREA NITROGEN 29 mg/dL 7-21 (BEAKER) (test ybmz=329) CREATININE (BEAKER) (test 0.84 mg/dL 0.57-1.25 Specimen slightly bqrq=794) hemolyzed GLUCOSE RANDOM (BEAKER) 101 mg/dL 70-105 (test ombl=438) CALCIUM (BEAKER) (test 8.9 mg/dL 8.4-10.2 gpkk=555) EGFR (BEAKER) (test 65 mL/min/1.73 sq m ESTIMATED GFR IS NOT shkb=0935) ACCURATE CREATININE CLEARANCE IN PREDICTING GLOMERULAR FILTRATION RATE. ESTIMATED GFR IS NOT APPLICABLE FOR DIALYSIS PATIENTS. HEPATIC FUNCTION [id number] 06:40:00 Test Item Value Reference Range Comments TOTAL PROTEIN (BEAKER) (test 6.6 gm/dL 6.0-8.3 Specimen slightly hemolyzed dssb=303) ALBUMIN (BEAKER) (test 3.3 g/dL 3.5-5.0 Specimen slightly hemolyzed saqn=8357) BILIRUBIN TOTAL (BEAKER) (test 1.3 mg/dL 0.2-1.2 Specimen slightly hemolyzed xrhk=436) BILIRUBIN DIRECT (BEAKER) (test 0.6 mg/dL 0.1-0.5 Specimen slightly hemolyzed zeff=763) ALKALINE PHOSPHATASE (BEAKER) 31 U/L 40-150 (test laog=360) AST (SGOT) (BEAKER) (test 34 U/L 5-34 Specimen slightly hemolyzed mbhg=654) ALT (SGPT) (BEAKER) (test 16 U/L 6-55 Specimen slightly hemolyzed lqle=806) CBC W/PLT COUNT & AUTO [id number] 05:57:00 Test Item Value Reference Range Comments WHITE BLOOD CELL COUNT (BEAKER) (test caih=774) 13.5 K/ L 3.5-10.5 RED BLOOD CELL COUNT (BEAKER) (test qxge=273) 5.03 M/ L 3.93-5.22 HEMOGLOBIN (BEAKER) (test kcag=387) 15.0 GM/DL 11.2-15.7 HEMATOCRIT (BEAKER) (test bzvn=596) 49.7 % 34.1-44.9 MEAN CORPUSCULAR VOLUME (BEAKER) (test cgso=997) 98.8 fL 79.4-94.8 MEAN CORPUSCULAR HEMOGLOBIN (BEAKER) (test 29.8 pg 25.6-32.2 jxcy=597) MEAN CORPUSCULAR HEMOGLOBIN CONC (BEAKER) (test 30.2 GM/DL 32.2-35.5 tyxo=126) RED CELL DISTRIBUTION WIDTH (BEAKER) (test 13.3 % 11.7-14.4 jplu=783) PLATELET COUNT (BEAKER) (test qwjh=633) 184 K/CU MM 150-450 MEAN PLATELET VOLUME (BEAKER) (test kipb=359) 12.0 fL 9.4-12.3 NUCLEATED RED BLOOD CELLS (BEAKER) (test 0 /100 WBC 0-0 mzkg=007) NEUTROPHILS RELATIVE PERCENT (BEAKER) (test 84 % javs=380) LYMPHOCYTES RELATIVE PERCENT (BEAKER) (test 7 % mmdy=654) MONOCYTES RELATIVE PERCENT (BEAKER) (test 6 % krnp=867) EOSINOPHILS RELATIVE PERCENT (BEAKER) (test 1 % thaz=038) BASOPHILS RELATIVE PERCENT (BEAKER) (test 1 % ewbs=818) NEUTROPHILS ABSOLUTE COUNT (BEAKER) (test 11.36 K/ L 1.56-6.13 oquv=970) LYMPHOCYTES ABSOLUTE COUNT (BEAKER) (test 0.91 K/ L 1.18-3.74 ajqn=716) MONOCYTES ABSOLUTE COUNT (BEAKER) (test 0.87 K/ L 0.24-0.36 nyht=473) EOSINOPHILS ABSOLUTE COUNT (BEAKER) (test 0.19 K/ L 0.04-0.36 fcde=396) BASOPHILS ABSOLUTE COUNT (BEAKER) (test 0.07 K/ L 0.01-0.08 lqem=541) IMMATURE GRANULOCYTES-RELATIVE PERCENT (BEAKER) 1 % 0-1 (test sxas=5412) POCT-GLUCOSE [id number] 21:35:00 Test Item Value Reference Range Comments POC-GLUCOSE METER (BEAKER) 160 mg/dL 70-110 TESTED AT [address] (test bfgq=5800) [place] [id number] POCT-GLUCOSE [id number] 18:42:00 Test Item Value Reference Range Comments POC-GLUCOSE METER (BEAKER) 119 mg/dL 70-110 TESTED AT [address] (test eabn=1986) [place] [address] POCT-GLUCOSE [id number] 14:33:00 Test Item Value Reference Range Comments POC-GLUCOSE METER (BEAKER) 80 mg/dL 70-110 TESTED AT [address] (test zolc=6491) [place] [id number] POCT-GLUCOSE [id number] 12:29:00 Test Item Value Reference Range Comments POC-GLUCOSE METER (BEAKER) 81 mg/dL 70-110 TESTED AT [address] (test yxxc=7723) [facility] [address] RAD, CHEST, 1 VIEW, NON [id number] 09:58:00Reason for exam:->copdShould this be performed at the bedside?->YesFINAL REPORT RAD , CHEST, 1 VIEW, NON DEPT INDICATION: copd COMPARISON: March 21, 2018 FINDINGS: Portable frontal view of the chest. IMPRESSION: Support Lines: None. Lungs and pleura: Clear lungs. No pneumothorax.Heart and mediastinum: Stable contours. Stable pacer apparatus.Additional findings: None. Signed: JR Jerome Robert MDReport Verified Date/Time: 06/14/2019 09:58:25 Reading Location : [address] Neuro Reading Room HEMOGLOBIN [id number] 09:20:00 Test Item Value Reference Range Comments HEMOGLOBIN A1C (BEAKER) (test rqpw=133) 7.1 % 4.3-6.1 LIPID [id number] 06:36:00 Test Item Value Reference Range Comments TRIGLYCERIDES (BEAKER) (test dydd=894) 59 mg/dL CHOLESTEROL (BEAKER) (test pzsp=518) 134 mg/dL HDL CHOLESTEROL (BEAKER) (test mucs=550) 50 mg/dL LDL CHOLESTEROL CALCULATED (BEAKER) (test 72 mg/dL npkw=382) Triglyceride Reference Range: Low Risk <150 Borderline 150- 199 High Risk 200-499 Very High Risk >=500Cholesterol Reference Range: Low Risk <200 Borderline 200-239 High Risk > 240HDL Cholesterol Reference Range: Low Risk >=60 High Risk <40LDL Cholesterol Reference Range: Optimal <100 Near Optimal 100-129 Borderline 130-159 High 160-189 Very High >=190BASIC METABOLIC [id number] 06:36:00 Test Item Value Reference Range Comments SODIUM (BEAKER) (test 144 meq/L 136-145 pvcq=049) POTASSIUM (BEAKER) (test 3.9 meq/L 3.5-5.1 lkmq=273) CHLORIDE (BEAKER) (test 105 meq/L 98-107 zrbi=694) CO2 (BEAKER) (test 26 meq/L 22-29 rydh=979) BLOOD UREA NITROGEN 24 mg/dL 7-21 (BEAKER) (test xpns=814) CREATININE (BEAKER) (test 0.85 mg/dL 0.57-1.25 qzbm=159) GLUCOSE RANDOM (BEAKER) 68 mg/dL 70-105 (test dfeg=997) CALCIUM (BEAKER) (test 9.0 mg/dL 8.4-10.2 giyg=738) EGFR (BEAKER) (test 64 mL/min/1.73 sq m ESTIMATED GFR IS NOT akkk=0852) ACCURATE CREATININE CLEARANCE IN PREDICTING GLOMERULAR FILTRATION RATE. ESTIMATED GFR IS NOT APPLICABLE FOR DIALYSIS PATIENTS. HEPATIC FUNCTION [id number] 06:36:00 Test Item Value Reference Range Comments TOTAL PROTEIN (BEAKER) (test rhmz=942) 7.0 gm/dL 6.0-8.3 ALBUMIN (BEAKER) (test nctm=7850) 3.6 g/dL 3.5-5.0 BILIRUBIN TOTAL (BEAKER) (test jmub=342) 1.2 mg/dL 0.2-1.2 BILIRUBIN DIRECT (BEAKER) (test beqs=107) 0.6 mg/dL 0.1-0.5 ALKALINE PHOSPHATASE (BEAKER) (test pbws=585) 31 U/L 40-150 AST (SGOT) (BEAKER) (test glyx=968) 33 U/L 5-34 ALT (SGPT) (BEAKER) (test lwhd=240) 19 U/L 6-55 [id number] 06:36:00 Test Item Value Reference Range Comments AMYLASE (BEAKER) (test nwpk=373) 368 U/L 25-125 [id number] 06:36:00 Test Item Value Reference Range Comments LIPASE (BEAKER) (test vnik=188) 451 U/L 8-78 POCT-GLUCOSE [id number] 06:34:00 Test Item Value Reference Range Comments POC-GLUCOSE METER (BEAKER) 73 mg/dL 70-110 TESTED AT [facility] [address] (test dgby=2266) [facility] [address] B-TYPE NATRIURETIC FACTOR (BNP)2019-06-14 06:32:00 Test Item Value Reference Range Comments B-TYPE NATRIURETIC PEPTIDE (BEAKER) (test 376 pg/mL 0-100 chpy=608) CBC W/PLT COUNT & AUTO [id number] 06:23:00 Test Item Value Reference Range Comments WHITE BLOOD CELL COUNT (BEAKER) (test wxsr=444) 12.9 K/ L 3.5-10.5 RED BLOOD CELL COUNT (BEAKER) (test oint=438) 5.60 M/ L 3.93-5.22 HEMOGLOBIN (BEAKER) (test ubll=591) 16.7 GM/DL 11.2-15.7 HEMATOCRIT (BEAKER) (test ztca=815) 55.2 % 34.1-44.9 MEAN CORPUSCULAR VOLUME (BEAKER) (test sfbx=946) 98.6 fL 79.4-94.8 MEAN CORPUSCULAR HEMOGLOBIN (BEAKER) (test 29.8 pg 25.6-32.2 papf=105) MEAN CORPUSCULAR HEMOGLOBIN CONC (BEAKER) (test 30.3 GM/DL 32.2-35.5 cbjy=980) RED CELL DISTRIBUTION WIDTH (BEAKER) (test 13.3 % 11.7-14.4 txcl=532) PLATELET COUNT (BEAKER) (test ochi=452) 190 K/CU MM 150-450 MEAN PLATELET VOLUME (BEAKER) (test ikfp=593) 11.6 fL 9.4-12.3 NUCLEATED RED BLOOD CELLS (BEAKER) (test 0 /100 WBC 0-0 pltr=685) NEUTROPHILS RELATIVE PERCENT (BEAKER) (test 88 % ffik=613) LYMPHOCYTES RELATIVE PERCENT (BEAKER) (test 6 % nrer=320) MONOCYTES RELATIVE PERCENT (BEAKER) (test 4 % uywg=731) EOSINOPHILS RELATIVE PERCENT (BEAKER) (test 0 % gzbm=691) BASOPHILS RELATIVE PERCENT (BEAKER) (test 1 % vtrh=024) NEUTROPHILS ABSOLUTE COUNT (BEAKER) (test 11.32 K/ L 1.56-6.13 dldh=408) LYMPHOCYTES ABSOLUTE COUNT (BEAKER) (test 0.81 K/ L 1.18-3.74 bjlg=882) MONOCYTES ABSOLUTE COUNT (BEAKER) (test 0.51 K/ L 0.24-0.36 ouia=173) EOSINOPHILS ABSOLUTE COUNT (BEAKER) (test 0.04 K/ L 0.04-0.36 atdz=118) BASOPHILS ABSOLUTE COUNT (BEAKER) (test 0.07 K/ L 0.01-0.08 xqiv=904) IMMATURE GRANULOCYTES-RELATIVE PERCENT (BEAKER) 1 % 0-1 (test nhvn=1602) PROTHROMBIN [id number] 06:21:00 Test Item Value Reference Range Comments PROTIME (BEAKER) (test jzog=113) 13.6 seconds 11.9-14.2 INR (BEAKER) (test grsw=349) 1.1 <=5.9 Effective 03/05/2019: PT Reference Range ChangeNew: 11.9-14.2 Previous: 11.7- 14.7RECOMMENDED COUMADIN/WARFARIN INR THERAPY RANGESSTANDARD DOSE: 2.0-3.0 Includes: PROPHYLAXIS for venous thrombosis, systemic embolization; TREATMENT for venous thrombosis and/or pulmonary embolus.HIGH RISK: Target INR is2.5-3.5 for patients wiht mechanical heart valves.POCT-GLUCOSE [id number] 00:39:00 Test Item Value Reference Range Comments POC-GLUCOSE METER (BEAKER) 72 mg/dL 70-110 TESTED AT [address] (test whjo=8033) [place] [address] POCT-LACTIC ACID, [id number] 00:00:00 Test Item Value Reference Range Comments POC-LACTIC ACID, ARTERIAL 0.7 mmol/L 0.4-1.3 TESTED [address] (BEAKER) (test rjgk=9860) [place] [address] POCT-BLOOD GASES, [id number] 00:00:00 Test Item Value Reference Range Comments TEMP, CELSIUS-POC (BEAKER) 37.4 (test bcpa=8892) FIO2-POC (BEAKER) (test 28 TESTED AT [address] ifqy=8132) [place] [address] PH, ARTERIAL-POC (BEAKER) 7.376 7.350-7.450 (test wmru=1041) PCO2, ARTERIAL-POC (BEAKER) 56.3 mm Hg 35.0-45.0 (test nzgz=1123) PO2, ARTERIAL-POC (BEAKER) 62.0 mm Hg 80.0-90.0 (test xrgc=0014) SO2, ARTERIAL-POC (BEAKER) 90.0 % 96.0-97.0 (test fmqa=5275) HCO3, ARTERIAL-POC (BEAKER) 32.8 meq/L 21.0-29.0 (test qthl=2054) BASE EXCESS, ARTERIAL-POC 8.0 meq/L -2.0-3.0 (BEAKER) (test gxaf=2268) [id number] 00:00:00 Test Item Value Reference Range Comments POC-SODIUM (BEAKER) (test 142 meq/L 135-148 TESTED AT [address] yncz=7729) [place] [address] [id number] 00:00:00 Test Item Value Reference Range Comments POC-POTASSIUM (BEAKER) (test 3.5 meq/L 3.6-5.5 TESTED AT [address] ojej=6162) [place] [address] [id number] 00:00:00 Test Item Value Reference Range Comments POC-GLUCOSE (BEAKER) (test 80 mg/dL 70-110 TESTED AT [address] bnfw=1443) [place] [id number] POCT-CALCIUM [id number] 00:00:00 Test Item Value Reference Range Comments POC-CALCIUM IONIZED (BEAKER) 1.17 mmol/L 1.12-1.27 TESTED AT [address] (test ijzg=9423) [place] [id number] 00:00:00 Test Item Value Reference Range Comments POC-HEMATOCRIT (BEAKER) (test 50 % 36-45 TESTED AT [address] gtus=1658) [place] [id number] 00:00:00 Test Item Value Reference Range Comments POC-HEMOGLOBIN (BEAKER) 17.0 g/dL 12.0-15.0 TESTED AT [address] (test iwlh=8739) [place] [id number] AT [place] [id number] POCT-GLUCOSE [id number] 20:48:00 Test Item Value Reference Range Comments POC-GLUCOSE METER (BEAKER) 80 mg/dL 70-110 TESTED AT [address] (test vqzc=3036) [place] [id number] AFB CULTURE + [id number] 00:11:00 Test Item Value Reference Range Comments CULTURE (BEAKER) (test No acid-fast bacilli isolated uhlf=4040) in 42 days AFB SMEAR (BEAKER) (test No acid fast bacilli seen fsps=145) FUNGUS CULTURE + [id number] 17:08:00 Test Item Value Reference Range Comments CULTURE (BEAKER) (test No fungus isolated in 28 days reth=6967) FUNGUS SMEAR (BEAKER) (test No fungi seen cctm=8674) AFB CULTURE + [id number] 02:56:00 Test Item Value Reference Range Comments CULTURE (BEAKER) (test No acid-fast bacilli isolated wxou=7935) in 42 days AFB SMEAR (BEAKER) (test No acid fast bacilli seen yttg=363) ANAEROBIC [id number] 17:45:00 Test Item Value Reference Range Comments CULTURE (BEAKER) (test bcyd=9697) No anaerobes isolated BLOOD [id number] 17:43:00 Test Item Value Reference Range Comments CULTURE (BEAKER) (test xfgq=3316) No growth in 5 days BLOOD [id number] 17:43:00 Test Item Value Reference Range Comments CULTURE (BEAKER) (test fagx=3031) No growth in 5 days POCT-GLUCOSE [id number] 12:38:00 Test Item Value Reference Range Comments POC-GLUCOSE METER (BEAKER) 147 mg/dL 70-110 TESTED AT [facility] [address] [facility] (test jhzg=2684) [facility] [address] WOUND CULTURE + GRAM [id number] 10:46:00 Test Item Value Reference Range Comments CULTURE (BEAKER) (test PSEUDOMONAS 4+ Pseudomonas ltkj=9067) AERUGINOSA aeruginosa Amikacin (test code=1) Susceptible 0-16 , Resistant <0 or >16 Aztreonam (test Susceptible 0-8 , code=32) Resistant <0 or >8 Cefepime (test code=51) Susceptible 0-8 , Resistant <0 or >8 Ceftazidime (test Susceptible 0-8 , code=27) Resistant <0 or >8 Ciprofloxacin (test Susceptible 0-1 , code=7) Resistant <0 or >1 Doripenem (test Susceptible 0-2 , fidv=332) Resistant <0 or >2 Gentamicin (test Susceptible [...] >4 CULTURE (BEAKER) (test PSEUDOMONAS 4+ Pseudomonas oapt=7744) AERUGINOSA aeruginosaof a second type Amikacin (test code=1) Susceptible 0-16 , Resistant <0 or >16 Aztreonam (test Susceptible 0-8 , code=32) Resistant <0 or >8 Cefepime (test code=51) Susceptible 0-8 , Resistant <0 or >8 Ceftazidime (test Susceptible 0-8 , code=27) Resistant <0 or >8 Ciprofloxacin (test Susceptible 0-1 , code=7) Resistant <0 or >1 Doripenem (test Susceptible 0-2 , gbbu=195) Resistant <0 or >2 Gentamicin (test Susceptible [...] CULTURE (BEAKER) (test KLEBSIELLA PNEUMONIAE <1+ Klebsiella amph=2656) pneumoniae Amikacin (test code=1) Ampicillin + Sulbactam (test code=6) Aztreonam (test code=32) Cefepime (test code=51) Cefoxitin (test code=68) Ceftazidime (test code=27) Ceftriaxone (test code=52) Ertapenem (test code=38) Gentamicin (test code=18) Levofloxacin (test code=22) Meropenem (test code=34) Nitrofurantoin (test code=23) Piperacillin + Tazobactam (test code=29) Tetracycline (test code=2) Tobramycin (test code=25) Trimethoprim + Sulfamethoxazole (test code=47) CULTURE (BEAKER) (test COAGULASE NEGATIVE 1+ Coagulase negative alvh=2599) STAPHYLOCOCCUS Staphylococcus Clindamycin (test code=10) Erythromycin (test code=4) Levofloxacin (test code=22) Linezolid (test code=40) Nitrofurantoin (test code=23) Oxacillin (test code=14) Rifampin (test code=43) Tetracycline (test code=2) Trimethoprim + Sulfamethoxazole (test code=47) Vancomycin (test Susceptible 0-4 , code=13) Resistant <0 or >4 CULTURE (BEAKER) (test PSEUDOMONAS 4+ Pseudomonas uqvm=7468) AERUGINOSA aeruginosaof a third type Amikacin (test code=1) Susceptible 0-16 , Resistant <0 or >16 Aztreonam (test Susceptible 0-8 , code=32) Resistant <0 or >8 Cefepime (test code=51) Susceptible 0-8 , Resistant <0 or >8 Ceftazidime (test Susceptible 0-8 , code=27) Resistant <0 or >8 Ciprofloxacin (test Susceptible 0-1 , code=7) Resistant <0 or >1 Doripenem (test Susceptible 0-2 , lynw=690) Resistant <0 or >2 Gentamicin (test Susceptible [...] >4 CULTURE (BEAKER) (test <1+ Coagulase negative fnfj=7388) Staphylococcusof a second type GRAM STAIN RESULT <1+ WBCs (BEAKER) (test kchj=7127) GRAM STAIN RESULT <1+ gram negative (BEAKER) (test rods wese=871000) SURGICALLY OBTAINED CULTURE + GRAM [id number] 08:30:00 Test Item Value Reference Range Comments CULTURE (BEAKER) (test wpgh=9972) No growth GRAM STAIN RESULT (BEAKER) (test No WBCs bjmu=5883) GRAM STAIN RESULT (BEAKER) (test No organisms seen qyvj=42641) POCT-GLUCOSE [id number] 07:23:00 Test Item Value Reference Range Comments POC-GLUCOSE METER (BEAKER) 97 mg/dL 70-110 TESTED AT [facility] [address] (test vpbm=4626) [facility] [address] POCT-GLUCOSE [id number] 22:04:00 Test Item Value Reference Range Comments POC-GLUCOSE METER (BEAKER) 177 mg/dL 70-110 TESTED AT [address] (test kqtz=8041) [facility] [address] POCT-GLUCOSE [id number] 17:38:00 Test Item Value Reference Range Comments POC-GLUCOSE METER (BEAKER) 232 mg/dL 70-110 TESTED AT [address] (test ceek=7870) [facility] [address] POCT-GLUCOSE [id number] 12:40:00 Test Item Value Reference Range Comments POC-GLUCOSE METER (BEAKER) 139 mg/dL 70-110 TESTED AT [address] (test cnjh=2822) [facility] [address] POCT-GLUCOSE [id number] 07:47:00 Test Item Value Reference Range Comments POC-GLUCOSE METER (BEAKER) 96 mg/dL 70-110 TESTED AT [address] (test qxox=0102) [place] [id number] POCT-GLUCOSE [id number] 04:52:00 Test Item Value Reference Range Comments POC-GLUCOSE METER (BEAKER) 112 mg/dL 70-110 TESTED AT [address] (test ynag=3601) [facility] [address] POCT-GLUCOSE [id number] 23:28:00 Test Item Value Reference Range Comments POC-GLUCOSE METER (BEAKER) 114 mg/dL 70-110 TESTED AT [address] (test rzxp=5729) [facility] [address] POCT-GLUCOSE [id number] 17:12:00 Test Item Value Reference Range Comments POC-GLUCOSE METER (BEAKER) 155 mg/dL 70-110 TESTED AT [address] (test fznd=5056) [place] [id number] POCT-GLUCOSE [id number] 12:17:00 Test Item Value Reference Range Comments POC-GLUCOSE METER (BEAKER) 163 mg/dL 70-110 TESTED AT [address] (test otqa=5182) [place] [id number] FUNGUS CULTURE + [id number] 09:29:00 Test Item Value Reference Range Comments CULTURE (BEAKER) (test No fungus isolated in 28 days dqcn=1697) FUNGUS SMEAR (BEAKER) (test <1+ hyphal elements seen zptn=9509) See smear results.POCT-GLUCOSE [id number] 21:47:00 Test Item Value Reference Range Comments POC-GLUCOSE METER (BEAKER) 211 mg/dL 70-110 TESTED AT [facility] [address] [facility] (test kfkm=3358) [facility] [address] POCT-GLUCOSE [id number] 17:07:00 Test Item Value Reference Range Comments POC-GLUCOSE METER (BEAKER) 160 mg/dL 70-110 TESTED AT [facility] [address] [facility] (test ajpy=8436) [facility] [address] POCT-GLUCOSE [id number] 11:56:00 Test Item Value Reference Range Comments POC-GLUCOSE METER (BEAKER) 108 mg/dL 70-110 TESTED AT [place] [id number] [facility] (test iens=4400) [facility] [address] COMPREHENSIVE METABOLIC [id number] 23:00:00 Test Item Value Reference Range Comments TOTAL PROTEIN (BEAKER) 7.5 gm/dL 6.0-8.3 (test bfxs=817) ALBUMIN (BEAKER) (test 3.8 g/dL 3.5-5.0 tsmn=7045) ALKALINE PHOSPHATASE 53 U/L 40-150 (BEAKER) (test kmnc=173) BILIRUBIN TOTAL (BEAKER) 0.3 mg/dL 0.2-1.2 (test rnaq=935) SODIUM (BEAKER) (test 138 meq/L 136-145 hsvq=899) POTASSIUM (BEAKER) (test 3.9 meq/L 3.5-5.1 lkir=604) CHLORIDE (BEAKER) (test 101 meq/L 98-107 ynkz=231) CO2 (BEAKER) (test 28 meq/L 22-29 uuwh=801) BLOOD UREA NITROGEN 22 mg/dL 7-21 (BEAKER) (test ukde=886) CREATININE (BEAKER) (test 0.98 mg/dL 0.57-1.25 xfad=796) GLUCOSE RANDOM (BEAKER) 154 mg/dL 70-105 (test knou=514) CALCIUM (BEAKER) (test 10.1 mg/dL 8.4-10.2 wgck=231) AST (SGOT) (BEAKER) (test 20 U/L 5-34 qtcr=370) ALT (SGPT) (BEAKER) (test 12 U/L 6-55 vjij=209) EGFR (BEAKER) (test 54 mL/min/1.73 sq m ESTIMATED GFR IS NOT kdpj=7412) ACCURATE CREATININE CLEARANCE IN PREDICTING GLOMERULAR FILTRATION RATE. ESTIMATED GFR IS NOT APPLICABLE FOR DIALYSIS PATIENTS. PROTHROMBIN [id number] 22:52:00 Test Item Value Reference Range Comments PROTIME (BEAKER) (test qsqn=515) 14.0 seconds 11.7-14.7 INR (BEAKER) (test sspi=886) 1.1 <=5.9 RECOMMENDED COUMADIN/WARFARIN INR THERAPY RANGESSTANDARD DOSE: 2.0 - 3.0 Includes: PROPHYLAXIS forvenous thrombosis, systemic embolization; TREATMENT for venous thrombosis and/or pulmonary embolus.HIGH RISK: Target INR is 2.5-3.5 for patients with mechanical heart valves.CBC W/PLT COUNT & AUTO [id number] 22:51:00 Test Item Value Reference Range Comments WHITE BLOOD CELL COUNT (BEAKER) (test vuqj=110) 8.7 K/ L 3.5-10.5 RED BLOOD CELL COUNT (BEAKER) (test pjih=647) 4.77 M/ L 3.93-5.22 HEMOGLOBIN (BEAKER) (test answ=501) 13.6 GM/DL 11.2-15.7 HEMATOCRIT (BEAKER) (test skmf=964) 45.4 % 34.1-44.9 MEAN CORPUSCULAR VOLUME (BEAKER) (test pcti=793) 95.2 fL 79.4-94.8 MEAN CORPUSCULAR HEMOGLOBIN (BEAKER) (test 28.5 pg 25.6-32.2 gjdy=610) MEAN CORPUSCULAR HEMOGLOBIN CONC (BEAKER) (test 30.0 GM/DL 32.2-35.5 kypz=733) RED CELL DISTRIBUTION WIDTH (BEAKER) (test 15.2 % 11.7-14.4 wcco=615) PLATELET COUNT (BEAKER) (test hicd=884) 267 K/CU MM 150-450 MEAN PLATELET VOLUME (BEAKER) (test tqhp=995) 11.2 fL 9.4-12.3 NUCLEATED RED BLOOD CELLS (BEAKER) (test 0 /100 WBC 0-0 hqcq=258) NEUTROPHILS RELATIVE PERCENT (BEAKER) (test 73 % qiml=764) LYMPHOCYTES RELATIVE PERCENT (BEAKER) (test 16 % iqlo=227) MONOCYTES RELATIVE PERCENT (BEAKER) (test 8 % gpwx=038) EOSINOPHILS RELATIVE PERCENT (BEAKER) (test 1 % plvt=119) BASOPHILS RELATIVE PERCENT (BEAKER) (test 1 % xtle=032) NEUTROPHILS ABSOLUTE COUNT (BEAKER) (test 6.38 K/ L 1.56-6.13 wrat=203) LYMPHOCYTES ABSOLUTE COUNT (BEAKER) (test 1.37 K/ L 1.18-3.74 amwn=997) MONOCYTES ABSOLUTE COUNT (BEAKER) (test 0.73 K/ L 0.24-0.36 pcfy=205) EOSINOPHILS ABSOLUTE COUNT (BEAKER) (test 0.12 K/ L 0.04-0.36 sbcu=000) BASOPHILS ABSOLUTE COUNT (BEAKER) (test 0.08 K/ L 0.01-0.08 qahs=930) IMMATURE GRANULOCYTES-RELATIVE PERCENT (BEAKER) 1 % 0-1 (test kyna=7978) POCT-GLUCOSE [id number] 22:47:00 Test Item Value Reference Range Comments POC-GLUCOSE METER (BEAKER) 196 mg/dL 70-110 TESTED AT [address] (test byhe=1056) [place] [address] POCT-GLUCOSE [id number] 17:34:00 Test Item Value Reference Range Comments POC-GLUCOSE METER (BEAKER) 261 mg/dL 70-110 TESTED AT [address] (test xuke=9834) [place] [address] POCT-GLUCOSE [id number] 16:52:00 Test Item Value Reference Range Comments POC-GLUCOSE METER (BEAKER) 254 mg/dL 70-110 TESTED AT [address] (test xncy=8411) [place] [address] POCT-GLUCOSE [id number] 12:24:00 Test Item Value Reference Range Comments POC-GLUCOSE METER (BEAKER) 168 mg/dL 70-110 TESTED AT [address] (test ctoh=5629) [place] [id number] POCT-GLUCOSE [id number] 08:52:00 Test Item Value Reference Range Comments POC-GLUCOSE METER (BEAKER) 139 mg/dL 70-110 TESTED AT [address] (test tlqe=2762) [place] [id number] CT, [id number] 08:32:00S/p aortic-bilateral femoral bypass with right groin [...] MDReport Verified Date/Time: 04/21/2018 08:32:26 Reading Location: [address] Consult Reading Room 08: 32 AMPOCT-GLUCOSE [id number] 21:51:00 Test Item Value Reference Range Comments POC-GLUCOSE METER (BEAKER) 132 mg/dL 70-110 TESTED AT [address] (test ujxk=5160) [place] [id number] POCT-GLUCOSE [id number] 16:54:00 Test Item Value Reference Range Comments POC-GLUCOSE METER (BEAKER) 126 mg/dL 70-110 TESTED AT [address] (test kpvt=5065) [facility] [address] POCT-GLUCOSE [id number] 12:41:00 Test Item Value Reference Range Comments POC-GLUCOSE METER (BEAKER) 163 mg/dL 70-110 TESTED AT [address] (test hrkw=4673) [place] [id number] POCT-GLUCOSE [id number] 07:37:00 Test Item Value Reference Range Comments POC-GLUCOSE METER (BEAKER) 96 mg/dL 70-110 TESTED AT [address] (test omgv=4856) [facility] [address] BASIC METABOLIC [id number] 06:21:00 Test Item Value Reference Range Comments SODIUM (BEAKER) (test 142 meq/L 136-145 ujbg=615) POTASSIUM (BEAKER) (test 3.7 meq/L 3.5-5.1 xrzp=415) CHLORIDE (BEAKER) (test 102 meq/L 98-107 tvyn=240) CO2 (BEAKER) (test 30 meq/L 22-29 vhad=653) BLOOD UREA NITROGEN 22 mg/dL 7-21 (BEAKER) (test pkap=328) CREATININE (BEAKER) (test 1.05 mg/dL 0.57-1.25 zyla=873) GLUCOSE RANDOM (BEAKER) 88 mg/dL 70-105 (test mdxc=680) CALCIUM (BEAKER) (test 10.1 mg/dL 8.4-10.2 mjji=760) EGFR (BEAKER) (test 50 mL/min/1.73 sq m ESTIMATED GFR IS NOT dzyc=7264) ACCURATE CREATININE CLEARANCE IN PREDICTING GLOMERULAR FILTRATION RATE. ESTIMATED GFR IS NOT APPLICABLE FOR DIALYSIS PATIENTS. CBC W/PLT COUNT & AUTO [id number] 05:46:00 Test Item Value Reference Range Comments WHITE BLOOD CELL COUNT (BEAKER) (test nsde=587) 7.0 K/ L 3.5-10.5 RED BLOOD CELL COUNT (BEAKER) (test kwuc=279) 5.52 M/ L 3.93-5.22 HEMOGLOBIN (BEAKER) (test elqx=557) 15.6 GM/DL 11.2-15.7 HEMATOCRIT (BEAKER) (test khww=361) 53.3 % 34.1-44.9 MEAN CORPUSCULAR VOLUME (BEAKER) (test tehi=532) 96.6 fL 79.4-94.8 MEAN CORPUSCULAR HEMOGLOBIN (BEAKER) (test 28.3 pg 25.6-32.2 dszp=296) MEAN CORPUSCULAR HEMOGLOBIN CONC (BEAKER) (test 29.3 GM/DL 32.2-35.5 fcis=810) RED CELL DISTRIBUTION WIDTH (BEAKER) (test 15.3 % 11.7-14.4 wfif=400) PLATELET COUNT (BEAKER) (test rige=142) 257 K/CU MM 150-450 MEAN PLATELET VOLUME (BEAKER) (test pcoa=045) 11.5 fL 9.4-12.3 NUCLEATED RED BLOOD CELLS (BEAKER) (test 0 /100 WBC 0-0 qyuc=784) NEUTROPHILS RELATIVE PERCENT (BEAKER) (test 58 % rzdj=032) LYMPHOCYTES RELATIVE PERCENT (BEAKER) (test 25 % pbqr=158) MONOCYTES RELATIVE PERCENT (BEAKER) (test 9 % razb=150) EOSINOPHILS RELATIVE PERCENT (BEAKER) (test 5 % vchl=810) BASOPHILS RELATIVE PERCENT (BEAKER) (test 2 % djmb=395) NEUTROPHILS ABSOLUTE COUNT (BEAKER) (test 4.05 K/ L 1.56-6.13 orlr=847) LYMPHOCYTES ABSOLUTE COUNT (BEAKER) (test 1.76 K/ L 1.18-3.74 haak=667) MONOCYTES ABSOLUTE COUNT (BEAKER) (test 0.65 K/ L 0.24-0.36 vvhk=295) EOSINOPHILS ABSOLUTE COUNT (BEAKER) (test 0.33 K/ L 0.04-0.36 vlyl=979) BASOPHILS ABSOLUTE COUNT (BEAKER) (test 0.12 K/ L 0.01-0.08 ndhu=258) IMMATURE GRANULOCYTES-RELATIVE PERCENT (BEAKER) 1 % 0-1 (test vjvj=5822) POCT-GLUCOSE [id number] 21:11:00 Test Item Value Reference Range Comments POC-GLUCOSE METER (BEAKER) 152 mg/dL 70-110 TESTED AT [address] (test fsdt=8621) [place] [address] POCT-GLUCOSE [id number] 16:41:00 Test Item Value Reference Range Comments POC-GLUCOSE METER (BEAKER) 100 mg/dL 70-110 TESTED AT [address] (test vqge=2067) [place] [address] POCT-GLUCOSE [id number] 13:05:00 Test Item Value Reference Range Comments POC-GLUCOSE METER (BEAKER) 127 mg/dL 70-110 TESTED AT [address] (test dfpf=3371) [place] [address] TSH/FREE T4 IF [id number] 12:05:00 Test Item Value Reference Range Comments THYROID STIMULATING HORMONE (BEAKER) (test 2.75 uIU/mL 0.35-4.94 anth=781) [id number] 11:48:00 Test Item Value Reference Range Comments MAGNESIUM (BEAKER) (test vbci=497) 2.2 mg/dL 1.6-2.6 BASIC METABOLIC [id number] 11:48:00 Test Item Value Reference Range Comments SODIUM (BEAKER) (test 142 meq/L 136-145 gxlx=729) POTASSIUM (BEAKER) (test 3.7 meq/L 3.5-5.1 rzrq=226) CHLORIDE (BEAKER) (test 103 meq/L 98-107 rqmg=485) CO2 (BEAKER) (test 30 meq/L 22-29 cvaw=622) BLOOD UREA NITROGEN 27 mg/dL 7-21 (BEAKER) (test ropl=893) CREATININE (BEAKER) (test 1.19 mg/dL 0.57-1.25 yzwm=034) GLUCOSE RANDOM (BEAKER) 112 mg/dL 70-105 (test ewix=418) CALCIUM (BEAKER) (test 9.6 mg/dL 8.4-10.2 cogn=374) EGFR (BEAKER) (test 43 mL/min/1.73 sq m ESTIMATED GFR IS NOT lmzl=5039) ACCURATE CREATININE CLEARANCE IN PREDICTING GLOMERULAR FILTRATION RATE. ESTIMATED GFR IS NOT APPLICABLE FOR DIALYSIS PATIENTS. POCT-GLUCOSE [id number] 11:40:00 Test Item Value Reference Range Comments POC-GLUCOSE METER (BEAKER) 118 mg/dL 70-110 TESTED AT [facility] [address] [place] [address] (test ocny=5678) [facility] [address] CBC W/PLT COUNT & AUTO [id number] 11:30:00 Test Item Value Reference Range Comments WHITE BLOOD CELL COUNT (BEAKER) (test hffy=300) 7.3 K/ L 3.5-10.5 RED BLOOD CELL COUNT (BEAKER) (test juff=552) 4.68 M/ L 3.93-5.22 HEMOGLOBIN (BEAKER) (test szxs=850) 13.4 GM/DL 11.2-15.7 HEMATOCRIT (BEAKER) (test hnht=898) 44.7 % 34.1-44.9 MEAN CORPUSCULAR VOLUME (BEAKER) (test aotu=140) 95.5 fL 79.4-94.8 MEAN CORPUSCULAR HEMOGLOBIN (BEAKER) (test 28.6 pg 25.6-32.2 royu=350) MEAN CORPUSCULAR HEMOGLOBIN CONC (BEAKER) (test 30.0 GM/DL 32.2-35.5 shmk=262) RED CELL DISTRIBUTION WIDTH (BEAKER) (test 15.5 % 11.7-14.4 ptam=716) PLATELET COUNT (BEAKER) (test ylln=203) 260 K/CU MM 150-450 MEAN PLATELET VOLUME (BEAKER) (test ipjs=646) 10.7 fL 9.4-12.3 NUCLEATED RED BLOOD CELLS (BEAKER) (test 0 /100 WBC 0-0 rghm=048) NEUTROPHILS RELATIVE PERCENT (BEAKER) (test 70 % gigr=772) LYMPHOCYTES RELATIVE PERCENT (BEAKER) (test 19 % kbjj=077) MONOCYTES RELATIVE PERCENT (BEAKER) (test 8 % mpzm=082) EOSINOPHILS RELATIVE PERCENT (BEAKER) (test 2 % jwyd=081) BASOPHILS RELATIVE PERCENT (BEAKER) (test 1 % pqcj=042) NEUTROPHILS ABSOLUTE COUNT (BEAKER) (test 5.11 K/ L 1.56-6.13 lbrr=299) LYMPHOCYTES ABSOLUTE COUNT (BEAKER) (test 1.37 K/ L 1.18-3.74 piau=016) MONOCYTES ABSOLUTE COUNT (BEAKER) (test 0.59 K/ L 0.24-0.36 kplo=740) EOSINOPHILS ABSOLUTE COUNT (BEAKER) (test 0.17 K/ L 0.04-0.36 zhrc=935) BASOPHILS ABSOLUTE COUNT (BEAKER) (test 0.07 K/ L 0.01-0.08 nwqb=807) IMMATURE GRANULOCYTES-RELATIVE PERCENT (BEAKER) 0 % 0-1 (test rqpn=4462) ANAEROBIC [id number] 02:34:00 Test Item Value Reference Range Comments CULTURE (BEAKER) (test qizr=2732) No anaerobes isolated SURGICALLY OBTAINED CULTURE + GRAM [id number] 14:05:00 Test Item Value Reference Range Comments CULTURE (BEAKER) (test qsuw=6517) No growth GRAM STAIN RESULT (BEAKER) (test 1+ WBCs rcmw=0941) GRAM STAIN RESULT (BEAKER) (test No organisms seen vchw=33466) POCT-GLUCOSE [id number] 12:39:00 Test Item Value Reference Range Comments POC-GLUCOSE METER (BEAKER) 131 mg/dL 70-110 TESTED AT [address] (test jmuf=0001) [facility] [address] POCT-GLUCOSE [id number] 08:01:00 Test Item Value Reference Range Comments POC-GLUCOSE METER (BEAKER) 106 mg/dL 70-110 TESTED AT [facility] [address] (test mhiq=5131) [facility] [address] BASIC METABOLIC [id number] 06:21:00 Test Item Value Reference Range Comments SODIUM (BEAKER) (test 139 meq/L 136-145 mjpa=686) POTASSIUM (BEAKER) (test 3.6 meq/L 3.5-5.1 kysn=338) CHLORIDE (BEAKER) (test 102 meq/L 98-107 xexp=491) CO2 (BEAKER) (test 27 meq/L 22-29 vhaf=747) BLOOD UREA NITROGEN 13 mg/dL 7-21 (BEAKER) (test gwdi=786) CREATININE (BEAKER) (test 0.70 mg/dL 0.57-1.25 ouzk=499) GLUCOSE RANDOM (BEAKER) 90 mg/dL 70-105 (test msjn=961) CALCIUM (BEAKER) (test 9.2 mg/dL 8.4-10.2 uteg=423) EGFR (BEAKER) (test 80 mL/min/1.73 sq m ESTIMATED GFR IS NOT yyep=6743) ACCURATE CREATININE CLEARANCE IN PREDICTING GLOMERULAR FILTRATION RATE. ESTIMATED GFR IS NOT APPLICABLE FOR DIALYSIS PATIENTS. CBC W/PLT COUNT & AUTO [id number] 05:48:00 Test Item Value Reference Range Comments WHITE BLOOD CELL COUNT (BEAKER) (test pyzn=713) 9.7 K/ L 3.5-10.5 RED BLOOD CELL COUNT (BEAKER) (test oroe=546) 3.69 M/ L 3.93-5.22 HEMOGLOBIN (BEAKER) (test apqb=454) 10.5 GM/DL 11.2-15.7 HEMATOCRIT (BEAKER) (test cfhx=397) 35.2 % 34.1-44.9 MEAN CORPUSCULAR VOLUME (BEAKER) (test mtzt=351) 95.4 fL 79.4-94.8 MEAN CORPUSCULAR HEMOGLOBIN (BEAKER) (test 28.5 pg 25.6-32.2 nmlu=551) MEAN CORPUSCULAR HEMOGLOBIN CONC (BEAKER) (test 29.8 GM/DL 32.2-35.5 oque=067) RED CELL DISTRIBUTION WIDTH (BEAKER) (test 14.6 % 11.7-14.4 ykkr=553) PLATELET COUNT (BEAKER) (test fhri=857) 321 K/CU MM 150-450 MEAN PLATELET VOLUME (BEAKER) (test blxl=437) 10.6 fL 9.4-12.3 NUCLEATED RED BLOOD CELLS (BEAKER) (test 0 /100 WBC 0-0 jmcw=099) NEUTROPHILS RELATIVE PERCENT (BEAKER) (test 73 % pcdd=340) LYMPHOCYTES RELATIVE PERCENT (BEAKER) (test 15 % qslx=337) MONOCYTES RELATIVE PERCENT (BEAKER) (test 7 % iwyv=718) EOSINOPHILS RELATIVE PERCENT (BEAKER) (test 3 % ujug=564) BASOPHILS RELATIVE PERCENT (BEAKER) (test 1 % wsgf=023) NEUTROPHILS ABSOLUTE COUNT (BEAKER) (test 7.06 K/ L 1.56-6.13 gaob=025) LYMPHOCYTES ABSOLUTE COUNT (BEAKER) (test 1.42 K/ L 1.18-3.74 qgwq=687) MONOCYTES ABSOLUTE COUNT (BEAKER) (test 0.71 K/ L 0.24-0.36 oxyg=292) EOSINOPHILS ABSOLUTE COUNT (BEAKER) (test 0.27 K/ L 0.04-0.36 wfsi=542) BASOPHILS ABSOLUTE COUNT (BEAKER) (test 0.05 K/ L 0.01-0.08 nacj=112) IMMATURE GRANULOCYTES-RELATIVE PERCENT (BEAKER) 2 % 0-1 (test ipyx=6358) POCT-GLUCOSE [id number] 21:47:00 Test Item Value Reference Range Comments POC-GLUCOSE METER (BEAKER) 161 mg/dL 70-110 TESTED AT [address] (test ipln=7323) [facility] [id number] POCT-GLUCOSE [id number] 17:08:00 Test Item Value Reference Range Comments POC-GLUCOSE METER (BEAKER) 189 mg/dL 70-110 TESTED AT [address] (test kuul=1104) [facility] [id number] POCT-GLUCOSE [id number] 11:12:00 Test Item Value Reference Range Comments POC-GLUCOSE METER (BEAKER) 197 mg/dL 70-110 TESTED AT [address] (test tfoo=3503) [place] [id number] POCT-GLUCOSE [id number] 07:35:00 Test Item Value Reference Range Comments POC-GLUCOSE METER (BEAKER) 113 mg/dL 70-110 TESTED AT [facility] [address] [facility] (test rdew=7280) [facility] [id number] BASIC METABOLIC [id number] 06:23:00 Test Item Value Reference Range Comments SODIUM (BEAKER) (test 137 meq/L 136-145 zqpw=274) POTASSIUM (BEAKER) (test 4.3 meq/L 3.5-5.1 murr=948) CHLORIDE (BEAKER) (test 101 meq/L 98-107 gjod=910) CO2 (BEAKER) (test 26 meq/L 22-29 jbpe=327) BLOOD UREA NITROGEN 12 mg/dL 7-21 (BEAKER) (test uvsz=214) CREATININE (BEAKER) (test 0.70 mg/dL 0.57-1.25 kgnl=641) GLUCOSE RANDOM (BEAKER) 91 mg/dL 70-105 (test kifi=828) CALCIUM (BEAKER) (test 9.3 mg/dL 8.4-10.2 jcid=178) EGFR (BEAKER) (test 80 mL/min/1.73 sq m ESTIMATED GFR IS NOT otxk=1733) ACCURATE CREATININE CLEARANCE IN PREDICTING GLOMERULAR FILTRATION RATE. ESTIMATED GFR IS NOT APPLICABLE FOR DIALYSIS PATIENTS. CBC W/PLT COUNT & AUTO [id number] 06:12:00 Test Item Value Reference Range Comments WHITE BLOOD CELL COUNT (BEAKER) (test qhfp=341) 11.9 K/ L 3.5-10.5 RED BLOOD CELL COUNT (BEAKER) (test ldkc=047) 3.65 M/ L 3.93-5.22 HEMOGLOBIN (BEAKER) (test ojwd=056) 10.7 GM/DL 11.2-15.7 HEMATOCRIT (BEAKER) (test inkq=061) 35.3 % 34.1-44.9 MEAN CORPUSCULAR VOLUME (BEAKER) (test igbv=424) 96.7 fL 79.4-94.8 MEAN CORPUSCULAR HEMOGLOBIN (BEAKER) (test 29.3 pg 25.6-32.2 tkjx=815) MEAN CORPUSCULAR HEMOGLOBIN CONC (BEAKER) (test 30.3 GM/DL 32.2-35.5 gaxf=367) RED CELL DISTRIBUTION WIDTH (BEAKER) (test 14.6 % 11.7-14.4 vicu=993) PLATELET COUNT (BEAKER) (test qxbv=813) 277 K/CU MM 150-450 MEAN PLATELET VOLUME (BEAKER) (test cpic=494) 10.8 fL 9.4-12.3 NUCLEATED RED BLOOD CELLS (BEAKER) (test 0 /100 WBC 0-0 xlmn=750) NEUTROPHILS RELATIVE PERCENT (BEAKER) (test 77 % jldj=331) LYMPHOCYTES RELATIVE PERCENT (BEAKER) (test 10 % opmz=946) MONOCYTES RELATIVE PERCENT (BEAKER) (test 7 % awnc=956) EOSINOPHILS RELATIVE PERCENT (BEAKER) (test 2 % yznb=003) BASOPHILS RELATIVE PERCENT (BEAKER) (test 1 % upzq=583) NEUTROPHILS ABSOLUTE COUNT (BEAKER) (test 9.13 K/ L 1.56-6.13 gqlx=111) LYMPHOCYTES ABSOLUTE COUNT (BEAKER) (test 1.19 K/ L 1.18-3.74 cmsc=026) MONOCYTES ABSOLUTE COUNT (BEAKER) (test 0.87 K/ L 0.24-0.36 lmxl=431) EOSINOPHILS ABSOLUTE COUNT (BEAKER) (test 0.26 K/ L 0.04-0.36 ubas=051) BASOPHILS ABSOLUTE COUNT (BEAKER) (test 0.06 K/ L 0.01-0.08 batm=854) IMMATURE GRANULOCYTES-RELATIVE PERCENT (BEAKER) 3 % 0-1 (test ytnu=5129) POCT-GLUCOSE [id number] 21:04:00 Test Item Value Reference Range Comments POC-GLUCOSE METER (BEAKER) 143 mg/dL 70-110 TESTED AT [address] (test tdmp=4150) [place] [id number] POCT-GLUCOSE [id number] 17:04:00 Test Item Value Reference Range Comments POC-GLUCOSE METER (BEAKER) 182 mg/dL 70-110 TESTED AT [address] (test noai=9687) [facility] [address] SPIN/CONCENTRATION [id number] 15:07:00 Test Item Value Reference Range Comments CONCENTRATION CHARGED (BEAKER) (test sdqy=2935) Done POCT-GLUCOSE [id number] 11:38:00 Test Item Value Reference Range Comments POC-GLUCOSE METER (BEAKER) 141 mg/dL 70-110 TESTED AT [facility] [address] [facility] (test ajyi=8660) [facility] [address] POCT-GLUCOSE [id number] 08:13:00 Test Item Value Reference Range Comments POC-GLUCOSE METER (BEAKER) 122 mg/dL 70-110 TESTED AT [facility] [address] [facility] (test xcpm=1079) [facility] [address] BASIC METABOLIC [id number] 05:20:00 Test Item Value Reference Range Comments SODIUM (BEAKER) (test 138 meq/L 136-145 nsfq=774) POTASSIUM (BEAKER) (test 3.8 meq/L 3.5-5.1 rbsv=748) CHLORIDE (BEAKER) (test 102 meq/L 98-107 sgga=121) CO2 (BEAKER) (test 28 meq/L 22-29 odpq=550) BLOOD UREA NITROGEN 12 mg/dL 7-21 (BEAKER) (test vpmi=878) CREATININE (BEAKER) (test 0.72 mg/dL 0.57-1.25 ydtl=491) GLUCOSE RANDOM (BEAKER) 104 mg/dL 70-105 (test yhhw=202) CALCIUM (BEAKER) (test 8.5 mg/dL 8.4-10.2 purk=713) EGFR (BEAKER) (test 77 mL/min/1.73 sq m ESTIMATED GFR IS NOT acom=7723) ACCURATE CREATININE CLEARANCE IN PREDICTING GLOMERULAR FILTRATION RATE. ESTIMATED GFR IS NOT APPLICABLE FOR DIALYSIS PATIENTS. CBC W/PLT COUNT & AUTO [id number] 04:58:00 Test Item Value Reference Range Comments WHITE BLOOD CELL COUNT (BEAKER) (test muei=795) 11.5 K/ L 3.5-10.5 RED BLOOD CELL COUNT (BEAKER) (test ngzg=338) 3.63 M/ L 3.93-5.22 HEMOGLOBIN (BEAKER) (test jppt=892) 10.3 GM/DL 11.2-15.7 HEMATOCRIT (BEAKER) (test rqed=394) 34.4 % 34.1-44.9 MEAN CORPUSCULAR VOLUME (BEAKER) (test sgmm=886) 94.8 fL 79.4-94.8 MEAN CORPUSCULAR HEMOGLOBIN (BEAKER) (test 28.4 pg 25.6-32.2 mijt=392) MEAN CORPUSCULAR HEMOGLOBIN CONC (BEAKER) (test 29.9 GM/DL 32.2-35.5 wmhu=074) RED CELL DISTRIBUTION WIDTH (BEAKER) (test 14.8 % 11.7-14.4 yocg=067) PLATELET COUNT (BEAKER) (test jags=975) 266 K/CU MM 150-450 MEAN PLATELET VOLUME (BEAKER) (test vgmv=173) 10.8 fL 9.4-12.3 NUCLEATED RED BLOOD CELLS (BEAKER) (test 0 /100 WBC 0-0 szds=137) NEUTROPHILS RELATIVE PERCENT (BEAKER) (test 79 % zfob=511) LYMPHOCYTES RELATIVE PERCENT (BEAKER) (test 8 % evwt=912) MONOCYTES RELATIVE PERCENT (BEAKER) (test 7 % izof=639) EOSINOPHILS RELATIVE PERCENT (BEAKER) (test 2 % zzip=159) BASOPHILS RELATIVE PERCENT (BEAKER) (test 1 % txlp=430) NEUTROPHILS ABSOLUTE COUNT (BEAKER) (test 9.09 K/ L 1.56-6.13 vzqg=360) LYMPHOCYTES ABSOLUTE COUNT (BEAKER) (test 0.90 K/ L 1.18-3.74 guuy=632) MONOCYTES ABSOLUTE COUNT (BEAKER) (test 0.76 K/ L 0.24-0.36 arph=082) EOSINOPHILS ABSOLUTE COUNT (BEAKER) (test 0.27 K/ L 0.04-0.36 lkwj=746) BASOPHILS ABSOLUTE COUNT (BEAKER) (test 0.08 K/ L 0.01-0.08 qati=125) IMMATURE GRANULOCYTES-RELATIVE PERCENT (BEAKER) 4 % 0-1 (test kxjn=9217) POCT-GLUCOSE [id number] 21:18:00 Test Item Value Reference Range Comments POC-GLUCOSE METER (BEAKER) 147 mg/dL 70-110 TESTED AT [address] (test ekeo=5373) [facility] [address] TISSUE [id number] 15:55:00Surgical Pathology Report Case: [id number] Authorizing Provider: Billy Mcmanus, Collected: 03/18/2018 [place]6 OrderingLocation: [facility] Received: 2017 1131 PERIOPERAT[facility] SERVICES Pathologist: Chris Caraballo MD Specimen: Plaque, AORTIC PLAQUE AORTA, ATHERECTOMY:CALCIFIC ATHEROSCLEROTIC PLAQUE Signing Pathologist Direct Phone Line: [phone] by Chris Caraballo MD on 03/25/2018 at 3:55 [phone]; [id number] plaque Received in saline labeled "plaque", description "aortic plaque" is a 4.5 x 3.5 x 0.6 cm aggregate of felix-white to yellow-panchal, rubbery, calcified fibrous tissue.Case Resource Manager sections are submitted in cassette A1 for decalcification. DB/ew PerformedPOTASSIUM-STAT [id number] 11:04:00 Test Item Value Reference Range Comments POTASSIUM (BEAKER) (test fjww=138) 3.0 meq/L 3.6-5.5 HGB/HCT (H&H) - STAT [id number] 11:04:00 Test Item Value Reference Range Comments HEMOGLOBIN (BEAKER) (test mdnh=704) 11.2 g/dL 12.0-15.0 HEMATOCRIT (BEAKER) (test seda=360) 33.0 % 36.0-45.0 GLUCOSE-STAT [id number] 11:04:00 Test Item Value Reference Range Comments GLUCOSE RANDOM (BEAKER) (test dobu=079) 116 mg/dL 70-110 POCT-GLUCOSE [id number] 07:01:00 Test Item Value Reference Range Comments POC-GLUCOSE METER (BEAKER) 91 mg/dL 70-110 TESTED AT [facility] [address] [facility] (test vvrd=9293) [facility] [address] BASIC METABOLIC [id number] 05:12:00 Test Item Value Reference Range Comments SODIUM (BEAKER) (test 140 meq/L 136-145 kjqu=341) POTASSIUM (BEAKER) (test 4.0 meq/L 3.5-5.1 pqrr=687) CHLORIDE (BEAKER) (test 100 meq/L 98-107 mjks=542) CO2 (BEAKER) (test 34 meq/L 22-29 dtjr=932) BLOOD UREA NITROGEN 14 mg/dL 7-21 (BEAKER) (test qagi=581) CREATININE (BEAKER) (test 0.75 mg/dL 0.57-1.25 qlrp=624) GLUCOSE RANDOM (BEAKER) 100 mg/dL 70-105 (test sgkc=552) CALCIUM (BEAKER) (test 9.2 mg/dL 8.4-10.2 vzoy=403) EGFR (BEAKER) (test 74 mL/min/1.73 sq m ESTIMATED GFR IS NOT jako=6904) ACCURATE CREATININE CLEARANCE IN PREDICTING GLOMERULAR FILTRATION RATE. ESTIMATED GFR IS NOT APPLICABLE FOR DIALYSIS PATIENTS. CBC W/PLT COUNT & AUTO [id number] 04:36:00 Test Item Value Reference Range Comments WHITE BLOOD CELL COUNT (BEAKER) (test uiwg=299) 11.1 K/ L 3.5-10.5 RED BLOOD CELL COUNT (BEAKER) (test cgvz=466) 3.57 M/ L 3.93-5.22 HEMOGLOBIN (BEAKER) (test cdiv=862) 10.3 GM/DL 11.2-15.7 HEMATOCRIT (BEAKER) (test iuch=437) 33.8 % 34.1-44.9 MEAN CORPUSCULAR VOLUME (BEAKER) (test hcjx=107) 94.7 fL 79.4-94.8 MEAN CORPUSCULAR HEMOGLOBIN (BEAKER) (test 28.9 pg 25.6-32.2 pbhk=864) MEAN CORPUSCULAR HEMOGLOBIN CONC (BEAKER) (test 30.5 GM/DL 32.2-35.5 cezo=858) RED CELL DISTRIBUTION WIDTH (BEAKER) (test 14.6 % 11.7-14.4 fsgz=495) PLATELET COUNT (BEAKER) (test hwxe=357) 244 K/CU MM 150-450 MEAN PLATELET VOLUME (BEAKER) (test ajfg=118) 10.7 fL 9.4-12.3 NUCLEATED RED BLOOD CELLS (BEAKER) (test 1 /100 WBC 0-0 jaro=044) NEUTROPHILS RELATIVE PERCENT (BEAKER) (test 72 % yisz=066) LYMPHOCYTES RELATIVE PERCENT (BEAKER) (test 13 % xkzj=456) MONOCYTES RELATIVE PERCENT (BEAKER) (test 9 % bgvo=081) EOSINOPHILS RELATIVE PERCENT (BEAKER) (test 2 % rbsm=343) BASOPHILS RELATIVE PERCENT (BEAKER) (test 1 % lrtk=377) NEUTROPHILS ABSOLUTE COUNT (BEAKER) (test 7.91 K/ L 1.56-6.13 zahr=662) LYMPHOCYTES ABSOLUTE COUNT (BEAKER) (test 1.45 K/ L 1.18-3.74 ngcz=548) MONOCYTES ABSOLUTE COUNT (BEAKER) (test 1.00 K/ L 0.24-0.36 pldi=904) EOSINOPHILS ABSOLUTE COUNT (BEAKER) (test 0.21 K/ L 0.04-0.36 sxdo=872) BASOPHILS ABSOLUTE COUNT (BEAKER) (test 0.07 K/ L 0.01-0.08 byav=295) IMMATURE GRANULOCYTES-RELATIVE PERCENT (BEAKER) 4 % 0-1 (test veer=2187) POCT-GLUCOSE [id number] 21:06:00 Test Item Value Reference Range Comments POC-GLUCOSE METER (BEAKER) 152 mg/dL 70-110 TESTED AT [address] (test imsq=3762) [place] [id number] POCT-GLUCOSE [id number] 17:43:00 Test Item Value Reference Range Comments POC-GLUCOSE METER (BEAKER) 155 mg/dL 70-110 TESTED AT [address] (test vqvm=0803) [place] [id number] POCT-GLUCOSE [id number] 12:30:00 Test Item Value Reference Range Comments POC-GLUCOSE METER (BEAKER) 167 mg/dL 70-110 TESTED AT [address] (test ptob=8091) [facility] [address] POCT-GLUCOSE [id number] 07:13:00 Test Item Value Reference Range Comments POC-GLUCOSE METER (BEAKER) 111 mg/dL 70-110 TESTED AT [address] (test ujcc=2267) [facility] [address] BASIC METABOLIC [id number] 05:33:00 Test Item Value Reference Range Comments SODIUM (BEAKER) (test 139 meq/L 136-145 zjdb=958) POTASSIUM (BEAKER) (test 3.9 meq/L 3.5-5.1 gfyi=273) CHLORIDE (BEAKER) (test 102 meq/L 98-107 aelg=456) CO2 (BEAKER) (test 29 meq/L 22-29 askg=155) BLOOD UREA NITROGEN 17 mg/dL 7-21 (BEAKER) (test uitf=456) CREATININE (BEAKER) (test 0.72 mg/dL 0.57-1.25 ufwc=833) GLUCOSE RANDOM (BEAKER) 114 mg/dL 70-105 (test uxxu=103) CALCIUM (BEAKER) (test 8.8 mg/dL 8.4-10.2 auuh=599) EGFR (BEAKER) (test 77 mL/min/1.73 sq m ESTIMATED GFR IS NOT awew=5169) ACCURATE CREATININE CLEARANCE IN PREDICTING GLOMERULAR FILTRATION RATE. ESTIMATED GFR IS NOT APPLICABLE FOR DIALYSIS PATIENTS. CBC W/PLT COUNT & AUTO [id number] 04:58:00 Test Item Value Reference Range Comments WHITE BLOOD CELL COUNT (BEAKER) (test yhxk=562) 9.9 K/ L 3.5-10.5 RED BLOOD CELL COUNT (BEAKER) (test fmtn=454) 3.54 M/ L 3.93-5.22 HEMOGLOBIN (BEAKER) (test mguv=506) 10.2 GM/DL 11.2-15.7 HEMATOCRIT (BEAKER) (test tkxj=091) 33.7 % 34.1-44.9 MEAN CORPUSCULAR VOLUME (BEAKER) (test vomg=848) 95.2 fL 79.4-94.8 MEAN CORPUSCULAR HEMOGLOBIN (BEAKER) (test 28.8 pg 25.6-32.2 tdea=701) MEAN CORPUSCULAR HEMOGLOBIN CONC (BEAKER) (test 30.3 GM/DL 32.2-35.5 fshv=982) RED CELL DISTRIBUTION WIDTH (BEAKER) (test 14.4 % 11.7-14.4 hjxl=761) PLATELET COUNT (BEAKER) (test zlyp=681) 226 K/CU MM 150-450 MEAN PLATELET VOLUME (BEAKER) (test xaug=576) 11.2 fL 9.4-12.3 NUCLEATED RED BLOOD CELLS (BEAKER) (test 0 /100 WBC 0-0 ejsc=854) NEUTROPHILS RELATIVE PERCENT (BEAKER) (test 73 % goew=106) LYMPHOCYTES RELATIVE PERCENT (BEAKER) (test 14 % hehq=093) MONOCYTES RELATIVE PERCENT (BEAKER) (test 9 % afzp=273) EOSINOPHILS RELATIVE PERCENT (BEAKER) (test 2 % dwnz=497) BASOPHILS RELATIVE PERCENT (BEAKER) (test 1 % ibqj=366) NEUTROPHILS ABSOLUTE COUNT (BEAKER) (test 7.15 K/ L 1.56-6.13 wuzq=344) LYMPHOCYTES ABSOLUTE COUNT (BEAKER) (test 1.36 K/ L 1.18-3.74 nrbr=525) MONOCYTES ABSOLUTE COUNT (BEAKER) (test 0.87 K/ L 0.24-0.36 oggp=193) EOSINOPHILS ABSOLUTE COUNT (BEAKER) (test 0.18 K/ L 0.04-0.36 ooyg=006) BASOPHILS ABSOLUTE COUNT (BEAKER) (test 0.07 K/ L 0.01-0.08 iurf=184) IMMATURE GRANULOCYTES-RELATIVE PERCENT (BEAKER) 2 % 0-1 (test acam=5684) POCT-GLUCOSE [id number] 20:59:00 Test Item Value Reference Range Comments POC-GLUCOSE METER (BEAKER) 178 mg/dL 70-110 TESTED AT [address] (test qrgd=4444) [place] [id number] POCT-GLUCOSE [id number] 18:18:00 Test Item Value Reference Range Comments POC-GLUCOSE METER (BEAKER) 137 mg/dL 70-110 TESTED AT [address] (test nqhq=8797) [facility] [address] RAD, SPINE, LUMBAR, COMPLETE (MIN 4 VIEWS)2018-03-23 [...] MDReport Verified Date/Time: 03/23/2018 16:25:16 Reading Location: [facility] C0X Ortho Consult Reading Room SPUTUM CULTURE + GRAM [id number] 10:41:00 Test Item Value Reference Range Comments CULTURE (BEAKER) (test 3+ Normal respiratory anu yjlu=7424) present GRAM STAIN RESULT (BEAKER) <1+ WBCs (test jodi=6774) GRAM STAIN RESULT (BEAKER) 10-15 epithelial cells (test meut=88060) GRAM STAIN RESULT (BEAKER) 1+ gram positive cocci in pairs (test sust=05244) POCT-GLUCOSE [id number] 08:09:00 Test Item Value Reference Range Comments POC-GLUCOSE METER (BEAKER) 94 mg/dL 70-110 TESTED AT [facility] [address] (test ccyf=1404) [facility] [address] BASIC METABOLIC [id number] 06:23:00 Test Item Value Reference Range Comments SODIUM (BEAKER) (test 142 meq/L 136-145 zybc=226) POTASSIUM (BEAKER) (test 3.3 meq/L 3.5-5.1 uzoi=231) CHLORIDE (BEAKER) (test 102 meq/L 98-107 nmzx=656) CO2 (BEAKER) (test 27 meq/L 22-29 gnjq=002) BLOOD UREA NITROGEN 17 mg/dL 7-21 (BEAKER) (test ulzg=719) CREATININE (BEAKER) (test 0.69 mg/dL 0.57-1.25 rvzz=503) GLUCOSE RANDOM (BEAKER) 81 mg/dL 70-105 (test nspk=173) CALCIUM (BEAKER) (test 9.4 mg/dL 8.4-10.2 azmn=449) EGFR (BEAKER) (test 81 mL/min/1.73 sq m ESTIMATED GFR IS NOT kdwg=7851) ACCURATE CREATININE CLEARANCE IN PREDICTING GLOMERULAR FILTRATION RATE. ESTIMATED GFR IS NOT APPLICABLE FOR DIALYSIS PATIENTS. CBC W/PLT COUNT & AUTO [id number] 06:00:00 Test Item Value Reference Range Comments WHITE BLOOD CELL COUNT (BEAKER) (test pgig=386) 8.2 K/ L 3.5-10.5 RED BLOOD CELL COUNT (BEAKER) (test bzwe=048) 4.03 M/ L 3.93-5.22 HEMOGLOBIN (BEAKER) (test cxxx=278) 11.5 GM/DL 11.2-15.7 HEMATOCRIT (BEAKER) (test wwaj=618) 38.6 % 34.1-44.9 MEAN CORPUSCULAR VOLUME (BEAKER) (test vyex=124) 95.8 fL 79.4-94.8 MEAN CORPUSCULAR HEMOGLOBIN (BEAKER) (test 28.5 pg 25.6-32.2 hyud=426) MEAN CORPUSCULAR HEMOGLOBIN CONC (BEAKER) (test 29.8 GM/DL 32.2-35.5 icvl=637) RED CELL DISTRIBUTION WIDTH (BEAKER) (test 14.5 % 11.7-14.4 wxcm=283) PLATELET COUNT (BEAKER) (test solc=006) 214 K/CU MM 150-450 MEAN PLATELET VOLUME (BEAKER) (test emlt=034) 11.5 fL 9.4-12.3 NUCLEATED RED BLOOD CELLS (BEAKER) (test 0 /100 WBC 0-0 nweb=635) NEUTROPHILS RELATIVE PERCENT (BEAKER) (test 71 % pijm=224) LYMPHOCYTES RELATIVE PERCENT (BEAKER) (test 17 % mysk=289) MONOCYTES RELATIVE PERCENT (BEAKER) (test 8 % hsrs=623) EOSINOPHILS RELATIVE PERCENT (BEAKER) (test 3 % wzrg=440) BASOPHILS RELATIVE PERCENT (BEAKER) (test 1 % jsiv=962) NEUTROPHILS ABSOLUTE COUNT (BEAKER) (test 5.84 K/ L 1.56-6.13 pdpp=502) LYMPHOCYTES ABSOLUTE COUNT (BEAKER) (test 1.36 K/ L 1.18-3.74 mwkv=008) MONOCYTES ABSOLUTE COUNT (BEAKER) (test 0.63 K/ L 0.24-0.36 vjwi=002) EOSINOPHILS ABSOLUTE COUNT (BEAKER) (test 0.24 K/ L 0.04-0.36 wopp=373) BASOPHILS ABSOLUTE COUNT (BEAKER) (test 0.07 K/ L 0.01-0.08 pixh=589) IMMATURE GRANULOCYTES-RELATIVE PERCENT (BEAKER) 1 % 0-1 (test ebqb=4056) POCT-GLUCOSE [id number] 21:32:00 Test Item Value Reference Range Comments POC-GLUCOSE METER (BEAKER) 238 mg/dL 70-110 TESTED AT [address] (test deww=7812) [place] [id number] POCT-GLUCOSE [id number] 12:11:00 Test Item Value Reference Range Comments POC-GLUCOSE METER (BEAKER) 102 mg/dL 70-110 TESTED AT [address] (test rteu=8091) [place] [id number] POCT-GLUCOSE [id number] 07:49:00 Test Item Value Reference Range Comments POC-GLUCOSE METER (BEAKER) 93 mg/dL 70-110 TESTED AT [address] (test uvqp=7581) [place] [address] BASIC METABOLIC [id number] 06:14:00 Test Item Value Reference Range Comments SODIUM (BEAKER) (test 142 meq/L 136-145 wyhg=885) POTASSIUM (BEAKER) (test 4.6 meq/L 3.5-5.1 cszv=412) CHLORIDE (BEAKER) (test 103 meq/L 98-107 gfrh=739) CO2 (BEAKER) (test 32 meq/L 22-29 pnna=585) BLOOD UREA NITROGEN 18 mg/dL 7-21 (BEAKER) (test mxuo=968) CREATININE (BEAKER) (test 0.73 mg/dL 0.57-1.25 otos=710) GLUCOSE RANDOM (BEAKER) 78 mg/dL 70-105 (test yrwx=611) CALCIUM (BEAKER) (test 9.3 mg/dL 8.4-10.2 cfjn=733) EGFR (BEAKER) (test 76 mL/min/1.73 sq m ESTIMATED GFR IS NOT hyqk=2073) ACCURATE CREATININE CLEARANCE IN PREDICTING GLOMERULAR FILTRATION RATE. ESTIMATED GFR IS NOT APPLICABLE FOR DIALYSIS PATIENTS. CBC W/PLT COUNT & AUTO [id number] 05:44:00 Test Item Value Reference Range Comments WHITE BLOOD CELL COUNT (BEAKER) (test jono=781) 9.0 K/ L 3.5-10.5 RED BLOOD CELL COUNT (BEAKER) (test pmnf=115) 3.81 M/ L 3.93-5.22 HEMOGLOBIN (BEAKER) (test ockm=028) 10.8 GM/DL 11.2-15.7 HEMATOCRIT (BEAKER) (test ukvw=171) 36.8 % 34.1-44.9 MEAN CORPUSCULAR VOLUME (BEAKER) (test swkv=449) 96.6 fL 79.4-94.8 MEAN CORPUSCULAR HEMOGLOBIN (BEAKER) (test 28.3 pg 25.6-32.2 hqci=787) MEAN CORPUSCULAR HEMOGLOBIN CONC (BEAKER) (test 29.3 GM/DL 32.2-35.5 xiel=102) RED CELL DISTRIBUTION WIDTH (BEAKER) (test 14.7 % 11.7-14.4 vqyh=019) PLATELET COUNT (BEAKER) (test kjzy=807) 178 K/CU MM 150-450 MEAN PLATELET VOLUME (BEAKER) (test epuz=126) 11.6 fL 9.4-12.3 NUCLEATED RED BLOOD CELLS (BEAKER) (test 0 /100 WBC 0-0 okpb=384) NEUTROPHILS RELATIVE PERCENT (BEAKER) (test 75 % libj=732) LYMPHOCYTES RELATIVE PERCENT (BEAKER) (test 14 % wypc=695) MONOCYTES RELATIVE PERCENT (BEAKER) (test 7 % xngj=166) EOSINOPHILS RELATIVE PERCENT (BEAKER) (test 3 % cngn=886) BASOPHILS RELATIVE PERCENT (BEAKER) (test 1 % qgph=098) NEUTROPHILS ABSOLUTE COUNT (BEAKER) (test 6.69 K/ L 1.56-6.13 jrja=894) LYMPHOCYTES ABSOLUTE COUNT (BEAKER) (test 1.29 K/ L 1.18-3.74 hjlm=592) MONOCYTES ABSOLUTE COUNT (BEAKER) (test 0.65 K/ L 0.24-0.36 uold=572) EOSINOPHILS ABSOLUTE COUNT (BEAKER) (test 0.22 K/ L 0.04-0.36 frie=132) BASOPHILS ABSOLUTE COUNT (BEAKER) (test 0.05 K/ L 0.01-0.08 qrbz=367) IMMATURE GRANULOCYTES-RELATIVE PERCENT (BEAKER) 1 % 0-1 (test greo=1914) POCT-GLUCOSE [id number] 21:06:00 Test Item Value Reference Range Comments POC-GLUCOSE METER (BEAKER) 116 mg/dL 70-110 TESTED AT [address] (test sfod=4112) [place] [address] POCT-GLUCOSE [id number] 16:33:00 Test Item Value Reference Range Comments POC-GLUCOSE METER (BEAKER) 138 mg/dL 70-110 TESTED AT [address] (test fdef=6990) [place] [address] POCT-GLUCOSE [id number] 12:15:00 Test Item Value Reference Range Comments POC-GLUCOSE METER (BEAKER) 150 mg/dL 70-110 TESTED AT [address] (test tbtw=2713) [place] [address] POCT-GLUCOSE [id number] 09:03:00 Test Item Value Reference Range Comments POC-GLUCOSE METER (BEAKER) 101 mg/dL 70-110 TESTED AT [address] (test uxyq=3602) [place] [address] RAD, CHEST, 1 VIEW, NON [id number] 08:03:00Reason for exam:->post cardiovascular procedureShould this be [...] Verified Date/ Time: 03/21/2018 08:03:21 Reading Location: [facility] Diagnostic Imaging Reading Room - [place] [address] Electronically signed by: FREYA TURCIOS M.D. on 2017 08:03 [id number] 04:37:00 Test Item Value Reference Range Comments MAGNESIUM (BEAKER) (test 1.9 mg/dL 1.6-2.6 Specimen slightly hemolyzed xivp=894) BASIC METABOLIC [id number] 04:37:00 Test Item Value Reference Range Comments SODIUM (BEAKER) (test 141 meq/L 136-145 zvyq=422) POTASSIUM (BEAKER) (test 4.0 meq/L 3.5-5.1 Specimen slightly sbuk=497) hemolyzed CHLORIDE (BEAKER) (test 104 meq/L 98-107 aoyt=513) CO2 (BEAKER) (test 27 meq/L 22-29 thlx=636) BLOOD UREA NITROGEN 28 mg/dL 7-21 (BEAKER) (test kknl=031) CREATININE (BEAKER) (test 0.81 mg/dL 0.57-1.25 Specimen slightly tixz=513) hemolyzed GLUCOSE RANDOM (BEAKER) 124 mg/dL 70-105 (test mpaj=123) CALCIUM (BEAKER) (test 9.8 mg/dL 8.4-10.2 anzy=769) EGFR (BEAKER) (test 68 mL/min/1.73 sq m ESTIMATED GFR IS NOT xrgo=2307) ACCURATE CREATININE CLEARANCE IN PREDICTING GLOMERULAR FILTRATION RATE. ESTIMATED GFR IS NOT APPLICABLE FOR DIALYSIS PATIENTS. CBC W/PLT COUNT & AUTO [id number] 04:27:00 Test Item Value Reference Range Comments WHITE BLOOD CELL COUNT (BEAKER) (test ptur=407) 13.9 K/ L 3.5-10.5 RED BLOOD CELL COUNT (BEAKER) (test nskm=910) 3.73 M/ L 3.93-5.22 HEMOGLOBIN (BEAKER) (test bwrn=905) 11.1 GM/DL 11.2-15.7 HEMATOCRIT (BEAKER) (test gvca=118) 35.4 % 34.1-44.9 MEAN CORPUSCULAR VOLUME (BEAKER) (test rafs=540) 94.9 fL 79.4-94.8 MEAN CORPUSCULAR HEMOGLOBIN (BEAKER) (test 29.8 pg 25.6-32.2 ebba=664) MEAN CORPUSCULAR HEMOGLOBIN CONC (BEAKER) (test 31.4 GM/DL 32.2-35.5 mkiu=423) RED CELL DISTRIBUTION WIDTH (BEAKER) (test 14.8 % 11.7-14.4 kjxc=397) PLATELET COUNT (BEAKER) (test ilhq=528) 173 K/CU MM 150-450 MEAN PLATELET VOLUME (BEAKER) (test zcyf=418) 11.8 fL 9.4-12.3 NUCLEATED RED BLOOD CELLS (BEAKER) (test 0 /100 WBC 0-0 aiqn=058) NEUTROPHILS RELATIVE PERCENT (BEAKER) (test 90 % cblg=592) LYMPHOCYTES RELATIVE PERCENT (BEAKER) (test 5 % ziqt=387) MONOCYTES RELATIVE PERCENT (BEAKER) (test 4 % godo=987) EOSINOPHILS RELATIVE PERCENT (BEAKER) (test 1 % gscs=350) BASOPHILS RELATIVE PERCENT (BEAKER) (test 0 % gxna=480) NEUTROPHILS ABSOLUTE COUNT (BEAKER) (test 12.44 K/ L 1.56-6.13 exnw=149) LYMPHOCYTES ABSOLUTE COUNT (BEAKER) (test 0.67 K/ L 1.18-3.74 rbtq=104) MONOCYTES ABSOLUTE COUNT (BEAKER) (test 0.58 K/ L 0.24-0.36 czdu=011) EOSINOPHILS ABSOLUTE COUNT (BEAKER) (test 0.07 K/ L 0.04-0.36 nemc=188) BASOPHILS ABSOLUTE COUNT (BEAKER) (test 0.04 K/ L 0.01-0.08 kcge=715) IMMATURE GRANULOCYTES-RELATIVE PERCENT (BEAKER) 1 % 0-1 (test fahc=9456) POCT-GLUCOSE [id number] 20:59:00 Test Item Value Reference Range Comments POC-GLUCOSE METER (BEAKER) 111 mg/dL 70-110 TESTED AT [address] (test lmws=3648) [place] [id number] POCT-GLUCOSE [id number] 18:33:00 Test Item Value Reference Range Comments POC-GLUCOSE METER (BEAKER) 101 mg/dL 70-110 TESTED AT [address] (test midz=3010) [facility] [address] POCT-GLUCOSE [id number] 16:33:00 Test Item Value Reference Range Comments POC-GLUCOSE METER (BEAKER) 128 mg/dL 70-110 TESTED AT [address] (test txkb=8397) [place] [address] POCT-GLUCOSE [id number] 11:35:00 Test Item Value Reference Range Comments POC-GLUCOSE METER (BEAKER) 129 mg/dL 70-110 TESTED AT [address] (test jmup=6314) [place] [address] HEMOGLOBIN [id number] 08:58:00 Test Item Value Reference Range Comments HEMOGLOBIN A1C (BEAKER) (test fwav=881) 6.0 % 4.3-6.1 RAD, CHEST, 1 VIEW, NON [id number] 08:06:00Reason for exam:->post cardiovascular procedureShould this be [...] Garrettort Verified Date/Time: 03/20/2018 08:06:53 Reading Location: [facility] Radiology Reading Room POCT-GLUCOSE [id number] 06:21:00 Test Item Value Reference Range Comments POC-GLUCOSE METER (BEAKER) 133 mg/dL 70-110 TESTED AT [facility] [address] (test mqzi=0377) [place] [address] [id number] 06:00:00 Test Item Value Reference Range Comments MAGNESIUM (BEAKER) (test wlrx=721) 2.0 mg/dL 1.6-2.6 BASIC METABOLIC [id number] 06:00:00 Test Item Value Reference Range Comments SODIUM (BEAKER) (test 144 meq/L 136-145 akdl=792) POTASSIUM (BEAKER) (test 3.9 meq/L 3.5-5.1 rjrh=351) CHLORIDE (BEAKER) (test 107 meq/L 98-107 irer=965) CO2 (BEAKER) (test 27 meq/L 22-29 tyst=002) BLOOD UREA NITROGEN 36 mg/dL 7-21 (BEAKER) (test pquy=826) CREATININE (BEAKER) (test 0.99 mg/dL 0.57-1.25 bnqh=237) GLUCOSE RANDOM (BEAKER) 123 mg/dL 70-105 (test waxa=618) CALCIUM (BEAKER) (test 9.3 mg/dL 8.4-10.2 vnuq=258) EGFR (BEAKER) (test 54 mL/min/1.73 sq m ESTIMATED GFR IS NOT vmlo=1522) ACCURATE CREATININE CLEARANCE IN PREDICTING GLOMERULAR FILTRATION RATE. ESTIMATED GFR IS NOT APPLICABLE FOR DIALYSIS PATIENTS. CBC W/PLT COUNT & AUTO [id number] 05:39:00 Test Item Value Reference Range Comments WHITE BLOOD CELL COUNT (BEAKER) (test vvxb=224) 16.0 K/ L 3.5-10.5 RED BLOOD CELL COUNT (BEAKER) (test ncmf=117) 4.19 M/ L 3.93-5.22 HEMOGLOBIN (BEAKER) (test wfgu=413) 12.0 GM/DL 11.2-15.7 HEMATOCRIT (BEAKER) (test lbzr=896) 40.1 % 34.1-44.9 MEAN CORPUSCULAR VOLUME (BEAKER) (test qcjm=506) 95.7 fL 79.4-94.8 MEAN CORPUSCULAR HEMOGLOBIN (BEAKER) (test 28.6 pg 25.6-32.2 xuhp=257) MEAN CORPUSCULAR HEMOGLOBIN CONC (BEAKER) (test 29.9 GM/DL 32.2-35.5 jjtx=773) RED CELL DISTRIBUTION WIDTH (BEAKER) (test 14.8 % 11.7-14.4 edsq=552) PLATELET COUNT (BEAKER) (test nrdx=784) 166 K/CU MM 150-450 MEAN PLATELET VOLUME (BEAKER) (test xjon=160) 11.6 fL 9.4-12.3 NUCLEATED RED BLOOD CELLS (BEAKER) (test 0 /100 WBC 0-0 osns=109) NEUTROPHILS RELATIVE PERCENT (BEAKER) (test 90 % qbgi=221) LYMPHOCYTES RELATIVE PERCENT (BEAKER) (test 4 % lghi=028) MONOCYTES RELATIVE PERCENT (BEAKER) (test 4 % gzvj=506) EOSINOPHILS RELATIVE PERCENT (BEAKER) (test 0 % mhio=146) BASOPHILS RELATIVE PERCENT (BEAKER) (test 0 % owpl=839) NEUTROPHILS ABSOLUTE COUNT (BEAKER) (test 14.45 K/ L 1.56-6.13 rfgs=179) LYMPHOCYTES ABSOLUTE COUNT (BEAKER) (test 0.66 K/ L 1.18-3.74 asbh=179) MONOCYTES ABSOLUTE COUNT (BEAKER) (test 0.70 K/ L 0.24-0.36 yteg=708) EOSINOPHILS ABSOLUTE COUNT (BEAKER) (test 0.01 K/ L 0.04-0.36 uqzz=200) BASOPHILS ABSOLUTE COUNT (BEAKER) (test 0.06 K/ L 0.01-0.08 kxjp=013) IMMATURE GRANULOCYTES-RELATIVE PERCENT (BEAKER) 1 % 0-1 (test syri=5343) POCT-GLUCOSE [id number] 00:24:00 Test Item Value Reference Range Comments POC-GLUCOSE METER (BEAKER) 117 mg/dL 70-110 TESTED AT [facility] [address] [facility] (test flin=8673) [facility] [address] POCT-GLUCOSE [id number] 17:07:00 Test Item Value Reference Range Comments POC-GLUCOSE METER (BEAKER) 132 mg/dL 70-110 TESTED AT [place] [id number] [facility] (test zgbi=6935) [facility] [address] RAD, ABDOMEN/KUB, 1 VIEW [id number] 15:02:00Reason for exam:->nausea and eructationsFINAL REPORT TECHNIQUE: [...] Glassort Verified Date/Time: 03/19/2018 15:02:35 Reading Location: [facility] Radiology Reading Room POCT- GLUCOSE [id number] 10:23:00 Test Item Value Reference Range Comments POC-GLUCOSE METER (BEAKER) 111 mg/dL 70-110 TESTED AT [address] (test rtes=1695) [place] [address] RAD, CHEST, 1 VIEW, NON [id number] 08:26:00Reason for exam:->post cardiovascular procedureShould this be [...] Garrett Verified Date/Time: 03/19/2018 08:26:26 [facility] POCT-GLUCOSE [id number] 06:09:00 Test Item Value Reference Range Comments POC-GLUCOSE METER (BEAKER) 120 mg/dL 70-110 TESTED AT [address] (test gwyq=0904) [place] [address] POCT-GLUCOSE [id number] 06:09:00 Test Item Value Reference Range Comments POC-GLUCOSE METER (BEAKER) 120 mg/dL 70-110 TESTED AT [address] (test pill=2472) [place] [id number] 04:28:00 Test Item Value Reference Range Comments MAGNESIUM (BEAKER) (test 2.2 mg/dL 1.6-2.6 Specimen slightly hemolyzed nhuf=645) BASIC METABOLIC [id number] 04:28:00 Test Item Value Reference Range Comments SODIUM (BEAKER) (test 141 meq/L 136-145 oljn=709) POTASSIUM (BEAKER) (test 3.8 meq/L 3.5-5.1 Specimen slightly xmtu=697) hemolyzed CHLORIDE (BEAKER) (test 109 meq/L 98-107 fphf=173) CO2 (BEAKER) (test 24 meq/L 22-29 njvz=258) BLOOD UREA NITROGEN 30 mg/dL 7-21 (BEAKER) (test wptv=510) CREATININE (BEAKER) (test 0.86 mg/dL 0.57-1.25 Specimen slightly ykpu=813) hemolyzed GLUCOSE RANDOM (BEAKER) 119 mg/dL 70-105 (test bjvh=077) CALCIUM (BEAKER) (test 8.9 mg/dL 8.4-10.2 tudu=581) EGFR (BEAKER) (test 63 mL/min/1.73 sq m ESTIMATED GFR IS NOT gdjs=0708) ACCURATE CREATININE CLEARANCE IN PREDICTING GLOMERULAR FILTRATION RATE. ESTIMATED GFR IS NOT APPLICABLE FOR DIALYSIS PATIENTS. CBC W/PLT COUNT & AUTO [id number] 04:19:00 Test Item Value Reference Range Comments WHITE BLOOD CELL COUNT (BEAKER) (test vyym=542) 12.8 K/ L 3.5-10.5 RED BLOOD CELL COUNT (BEAKER) (test rfah=267) 4.54 M/ L 3.93-5.22 HEMOGLOBIN (BEAKER) (test nvsv=723) 12.9 GM/DL 11.2-15.7 HEMATOCRIT (BEAKER) (test jiqe=028) 43.3 % 34.1-44.9 MEAN CORPUSCULAR VOLUME (BEAKER) (test wxzt=744) 95.4 fL 79.4-94.8 MEAN CORPUSCULAR HEMOGLOBIN (BEAKER) (test 28.4 pg 25.6-32.2 tdis=909) MEAN CORPUSCULAR HEMOGLOBIN CONC (BEAKER) (test 29.8 GM/DL 32.2-35.5 phse=742) RED CELL DISTRIBUTION WIDTH (BEAKER) (test 14.8 % 11.7-14.4 siwa=421) PLATELET COUNT (BEAKER) (test owtf=200) 207 K/CU MM 150-450 MEAN PLATELET VOLUME (BEAKER) (test jhrb=779) 11.6 fL 9.4-12.3 NUCLEATED RED BLOOD CELLS (BEAKER) (test 0 /100 WBC 0-0 rmmq=907) NEUTROPHILS RELATIVE PERCENT (BEAKER) (test 87 % yvro=791) LYMPHOCYTES RELATIVE PERCENT (BEAKER) (test 6 % ekkd=800) MONOCYTES RELATIVE PERCENT (BEAKER) (test 6 % nhxs=165) EOSINOPHILS RELATIVE PERCENT (BEAKER) (test 0 % jqjo=701) BASOPHILS RELATIVE PERCENT (BEAKER) (test 1 % kptg=992) NEUTROPHILS ABSOLUTE COUNT (BEAKER) (test 11.16 K/ L 1.56-6.13 byka=539) LYMPHOCYTES ABSOLUTE COUNT (BEAKER) (test 0.71 K/ L 1.18-3.74 jkep=008) MONOCYTES ABSOLUTE COUNT (BEAKER) (test 0.74 K/ L 0.24-0.36 xhsq=627) EOSINOPHILS ABSOLUTE COUNT (BEAKER) (test 0.02 K/ L 0.04-0.36 txwn=370) BASOPHILS ABSOLUTE COUNT (BEAKER) (test 0.07 K/ L 0.01-0.08 isvg=071) IMMATURE GRANULOCYTES-RELATIVE PERCENT (BEAKER) 1 % 0-1 (test oydy=5097) BLOOD GAS, [id number] 04:01:00 Test Item Value Reference Range Comments PH ARTERIAL (BEAKER) (test vrxw=132) 7.37 7.35-7.45 PCO2 ARTERIAL (BEAKER) (test htgl=497) 47 mmHg 35-45 PO2 ARTERIAL (BEAKER) (test nlut=677) 68 mmHg 80-90 O2 SATURATION ARTERIAL (BEAKER) (test yqyz=795) 92.4 % 96.0-97.0 HCO3 ARTERIAL (BEAKER) (test ixuc=200) 26 mmol/L 21-29 BASE EXCESS ARTERIAL (BEAKER) (test npvz=082) 0.6 mmol/L -2.0-3.0 PATIENT TEMPERATURE (BEAKER) (test jhpo=9788) 37.4 C FIO2 (BEAKER) (test ifma=6637) 40.0 % BLOOD GAS, [id number] 22:23:00 Test Item Value Reference Range Comments PH ARTERIAL (BEAKER) (test qsjb=084) 7.40 7.35-7.45 PCO2 ARTERIAL (BEAKER) (test xeke=732) 42 mmHg 35-45 PO2 ARTERIAL (BEAKER) (test ggyc=035) 150 mmHg 80-90 O2 SATURATION ARTERIAL (BEAKER) (test ahqv=730) 98.9 % 96.0-97.0 HCO3 ARTERIAL (BEAKER) (test vsva=626) 25 mmol/L 21-29 BASE EXCESS ARTERIAL (BEAKER) (test xnrp=234) 0.2 mmol/L -2.0-3.0 PATIENT TEMPERATURE (BEAKER) (test qbfb=4434) 36.6 C FIO2 (BEAKER) (test qfug=3864) 40.0 % GLUCOSE-STAT [id number] 22:23:00 Test Item Value Reference Range Comments GLUCOSE RANDOM (BEAKER) (test vgza=847) 140 mg/dL 70-110 [id number] 20:01:00 Test Item Value Reference Range Comments POTASSIUM (BEAKER) (test uehl=242) 3.7 meq/L 3.5-5.1 8 hours after PO replacement [id number] 20:01:00 Test Item Value Reference Range Comments MAGNESIUM (BEAKER) (test drhj=467) 2.2 mg/dL 1.6-2.6 8 hours after PO replacement completedBLOOD GAS, [id number] 19:27:00 Test Item Value Reference Range Comments PH ARTERIAL (BEAKER) (test gmjy=640) 7.40 7.35-7.45 PCO2 ARTERIAL (BEAKER) (test lelq=766) 40 mmHg 35-45 PO2 ARTERIAL (BEAKER) (test fshi=858) 93 mmHg 80-90 O2 SATURATION ARTERIAL (BEAKER) (test kste=376) 97.3 % 96.0-97.0 HCO3 ARTERIAL (BEAKER) (test okja=646) 25 mmol/L 21-29 BASE EXCESS ARTERIAL (BEAKER) (test utlg=319) -0.1 mmol/L -2.0-3.0 PATIENT TEMPERATURE (BEAKER) (test qhfp=1062) 36.6 C FIO2 (BEAKER) (test jnbb=2988) 40.0 % POCT-GLUCOSE [id number] 19:09:00 Test Item Value Reference Range Comments POC-GLUCOSE METER (BEAKER) 123 mg/dL 70-110 TESTED AT [address] (test zmvb=8595) [place] [id number] POCT-GLUCOSE [id number] 18:02:00 Test Item Value Reference Range Comments POC-GLUCOSE METER (BEAKER) 108 mg/dL 70-110 TESTED AT [address] (test wtsf=9805) [facility] [address] POCT-GLUCOSE [id number] 17:06:00 Test Item Value Reference Range Comments POC-GLUCOSE METER (BEAKER) 103 mg/dL 70-110 TESTED AT [address] (test sruy=3218) [place] [id number] POCT-GLUCOSE [id number] 16:00:00 Test Item Value Reference Range Comments POC-GLUCOSE METER (BEAKER) 121 mg/dL 70-110 TESTED AT [address] (test qqdh=0532) [place] [id number] POCT-GLUCOSE [id number] 15:45:00 Test Item Value Reference Range Comments POC-GLUCOSE METER (BEAKER) 146 mg/dL 70-110 TESTED AT [address] (test asbd=0865) [place] [id number] BLOOD GAS, [id number] 15:25:00 Test Item Value Reference Range Comments PH ARTERIAL (BEAKER) (test bhkj=440) 7.33 7.35-7.45 PCO2 ARTERIAL (BEAKER) (test yput=265) 49 mmHg 35-45 PO2 ARTERIAL (BEAKER) (test rdqv=589) 84 mmHg 80-90 O2 SATURATION ARTERIAL (BEAKER) (test ipik=312) 95.8 % 96.0-97.0 HCO3 ARTERIAL (BEAKER) (test adwk=187) 25 mmol/L 21-29 BASE EXCESS ARTERIAL (BEAKER) (test eoyj=990) -1.3 mmol/L -2.0-3.0 PATIENT TEMPERATURE (BEAKER) (test qqif=6487) 36.6 C FIO2 (BEAKER) (test kbxs=5138) 40.0 % PLATELET AGGREGATION: FUNCTION [id number] 13:34:00 Test Item Value Reference Range Comments WEAK ADP RESULT(BEAKER) (test 63 % 60-91 enpy=9423) PLATELET FUNCTION SCREEN 60-100% indicates normal INTERP (BEAKER) (test platelet function ycmj=0476) [id number]-[id number] (BEAKER) Teresa De León MD (electronic (test lxjq=7354) signature) PLATELET COUNT AGG (BEAKER) 209 K/CU MM 150-450 (test hbcm=1844) for patients on clopidogrel in past two weeksRAD, CHEST, 1 VIEW, NON [id number] 13:15:00Reason for exam:->post cardiovascular procedureShould this [...] MDReport Verified Date/Time: 03/18/2018 13:15:44 Reading Location: [facility] C0[facility] Consult Reading Room [id number] 13:04:00 Test Item Value Reference Range Comments MAGNESIUM (BEAKER) (test yqvm=874) 1.8 mg/dL 1.6-2.6 BASIC METABOLIC [id number] 13:04:00 Test Item Value Reference Range Comments SODIUM (BEAKER) (test 140 meq/L 136-145 zznn=752) POTASSIUM (BEAKER) (test 3.0 meq/L 3.5-5.1 rgsu=806) CHLORIDE (BEAKER) (test 109 meq/L 98-107 cevu=143) CO2 (BEAKER) (test 23 meq/L 22-29 kvet=662) BLOOD UREA NITROGEN 29 mg/dL 7-21 (BEAKER) (test ksrd=615) CREATININE (BEAKER) (test 0.89 mg/dL 0.57-1.25 oilj=470) GLUCOSE RANDOM (BEAKER) 142 mg/dL 70-105 (test qusu=925) CALCIUM (BEAKER) (test 9.3 mg/dL 8.4-10.2 nqsa=214) EGFR (BEAKER) (test 61 mL/min/1.73 sq m ESTIMATED GFR IS NOT fhnh=6318) ACCURATE CREATININE CLEARANCE IN PREDICTING GLOMERULAR FILTRATION RATE. ESTIMATED GFR IS NOT APPLICABLE FOR DIALYSIS PATIENTS. [id number] 12:43:00 Test Item Value Reference Range Comments PHOSPHORUS (BEAKER) (test aikg=537) 3.9 mg/dL 2.3-4.7 LACTIC ACID, VENOUS, WHOLE [id number] 12:15:00 Test Item Value Reference Range Comments LACTATE BLOOD VENOUS (2) 1.0 mmol/L 0.5-2.2 Specimen slightly hemolyzed (BEAKER) (test gdza=5688) Effective 02/09/2016: Units/Reference Range ChangeNew: 0.5-2.2 mmol/L Previous: 5 -20 mg/dLCBC W/PLT COUNT & AUTO [id number] 12:06:00 Test Item Value Reference Range Comments WHITE BLOOD CELL COUNT (BEAKER) (test aohz=953) 14.3 K/ L 3.5-10.5 RED BLOOD CELL COUNT (BEAKER) (test pstv=840) 4.44 M/ L 3.93-5.22 HEMOGLOBIN (BEAKER) (test rzue=075) 12.9 GM/DL 11.2-15.7 HEMATOCRIT (BEAKER) (test pvsd=593) 41.8 % 34.1-44.9 MEAN CORPUSCULAR VOLUME (BEAKER) (test gpak=661) 94.1 fL 79.4-94.8 MEAN CORPUSCULAR HEMOGLOBIN (BEAKER) (test 29.1 pg 25.6-32.2 thdi=301) MEAN CORPUSCULAR HEMOGLOBIN CONC (BEAKER) (test 30.9 GM/DL 32.2-35.5 idxk=464) RED CELL DISTRIBUTION WIDTH (BEAKER) (test 14.5 % 11.7-14.4 jxii=709) PLATELET COUNT (BEAKER) (test yiiw=426) 176 K/CU MM 150-450 MEAN PLATELET VOLUME (BEAKER) (test mmrr=538) 11.4 fL 9.4-12.3 NUCLEATED RED BLOOD CELLS (BEAKER) (test 0 /100 WBC 0-0 wrjr=152) NEUTROPHILS RELATIVE PERCENT (BEAKER) (test 91 % ayjd=217) LYMPHOCYTES RELATIVE PERCENT (BEAKER) (test 6 % ecqu=938) MONOCYTES RELATIVE PERCENT (BEAKER) (test 1 % xygk=255) EOSINOPHILS RELATIVE PERCENT (BEAKER) (test 0 % ocor=213) BASOPHILS RELATIVE PERCENT (BEAKER) (test 1 % knay=550) NEUTROPHILS ABSOLUTE COUNT (BEAKER) (test 13.02 K/ L 1.56-6.13 vekp=558) LYMPHOCYTES ABSOLUTE COUNT (BEAKER) (test 0.84 K/ L 1.18-3.74 evxe=535) MONOCYTES ABSOLUTE COUNT (BEAKER) (test 0.09 K/ L 0.24-0.36 nsxy=890) EOSINOPHILS ABSOLUTE COUNT (BEAKER) (test 0.05 K/ L 0.04-0.36 htmz=316) BASOPHILS ABSOLUTE COUNT (BEAKER) (test 0.08 K/ L 0.01-0.08 dnjq=073) IMMATURE GRANULOCYTES-RELATIVE PERCENT (BEAKER) 2 % 0-1 (test yzzg=9951) HGB/HCT (H&H) - STAT [id number] 12:01:00 Test Item Value Reference Range Comments HEMOGLOBIN (BEAKER) (test qlpi=950) 13.8 g/dL 12.0-15.0 HEMATOCRIT (BEAKER) (test lven=681) 41.0 % 36.0-45.0 CALCIUM, [id number] 12:01:00 Test Item Value Reference Range Comments CALCIUM IONIZED (BEAKER) (test afmu=775) 1.25 mmol/L 1.12-1.27 PH, BLOOD (BEAKER) (test npis=5415) 7.37 BLOOD GAS, [id number] 12:01:00 Test Item Value Reference Range Comments PH ARTERIAL (BEAKER) (test jcyi=704) 7.38 7.35-7.45 PCO2 ARTERIAL (BEAKER) (test hjkp=184) 46 mmHg 35-45 PO2 ARTERIAL (BEAKER) (test guug=984) 214 mmHg 80-90 O2 SATURATION ARTERIAL (BEAKER) (test wvhz=691) 99.4 % 96.0-97.0 HCO3 ARTERIAL (BEAKER) (test yehx=352) 26 mmol/L 21-29 BASE EXCESS ARTERIAL (BEAKER) (test ncny=066) 0.5 mmol/L -2.0-3.0 PATIENT TEMPERATURE (BEAKER) (test zdkr=1964) 36.7 C FIO2 (BEAKER) (test mmma=7213) 60.0 % POTASSIUM-STAT [id number] 12:01:00 Test Item Value Reference Range Comments POTASSIUM (BEAKER) (test pzbb=138) 3.0 meq/L 3.6-5.5 GLUCOSE-STAT [id number] 12:01:00 Test Item Value Reference Range Comments GLUCOSE RANDOM (BEAKER) (test smkb=216) 139 mg/dL 70-110 BLOOD GAS, [id number] 10:42:00 Test Item Value Reference Range Comments PH ARTERIAL (BEAKER) (test kjey=856) 7.39 7.35-7.45 PCO2 ARTERIAL (BEAKER) (test qgic=544) 45 mmHg 35-45 PO2 ARTERIAL (BEAKER) (test rhcf=607) 260 mmHg 80-90 O2 SATURATION ARTERIAL (BEAKER) (test gusg=598) 99.6 % 96.0-97.0 HCO3 ARTERIAL (BEAKER) (test bfyj=957) 26 mmol/L 21-29 BASE EXCESS ARTERIAL (BEAKER) (test hzcy=241) 0.7 mmol/L -2.0-3.0 PATIENT TEMPERATURE (BEAKER) (test wbyy=0990) 36.7 C FIO2 (BEAKER) (test vptl=8677) 50.0 % POTASSIUM-STAT [id number] 10:42:00 Test Item Value Reference Range Comments POTASSIUM (BEAKER) (test arim=842) 3.1 meq/L 3.6-5.5 GLUCOSE-STAT [id number] 10:42:00 Test Item Value Reference Range Comments GLUCOSE RANDOM (BEAKER) (test lprt=279) 139 mg/dL 70-110 CALCIUM, [id number] 10:41:00 Test Item Value Reference Range Comments CALCIUM IONIZED (BEAKER) (test lsfv=731) 1.27 mmol/L 1.12-1.27 PH, BLOOD (BEAKER) (test esob=4143) 7.38 SODIUM NA-STAT [id number] 10:40:00 Test Item Value Reference Range Comments SODIUM (BEAKER) (test xqqz=125) 141 meq/L 135-148 HGB/HCT (H&H) - STAT [id number] 10:40:00 Test Item Value Reference Range Comments HEMOGLOBIN (BEAKER) (test agkm=240) 13.7 g/dL 12.0-15.0 HEMATOCRIT (BEAKER) (test hvud=343) 40.0 % 36.0-45.0 BLOOD GAS, [id number] 09:53:00 Test Item Value Reference Range Comments PH ARTERIAL (BEAKER) (test omik=195) 7.45 7.35-7.45 PCO2 ARTERIAL (BEAKER) (test djir=151) 38 mmHg 35-45 PO2 ARTERIAL (BEAKER) (test vzlc=817) 187 mmHg 80-90 O2 SATURATION ARTERIAL (BEAKER) (test heea=639) 99.4 % 96.0-97.0 HCO3 ARTERIAL (BEAKER) (test bngw=854) 26 mmol/L 21-29 BASE EXCESS ARTERIAL (BEAKER) (test pbaf=898) 1.7 mmol/L -2.0-3.0 PATIENT TEMPERATURE (BEAKER) (test huoe=8104) 36.0 C FIO2 (BEAKER) (test fwyg=8344) 50.0 % POTASSIUM-STAT [id number] 09:53:00 Test Item Value Reference Range Comments POTASSIUM (BEAKER) (test mhcu=976) 3.0 meq/L 3.6-5.5 GLUCOSE-STAT [id number] 09:53:00 Test Item Value Reference Range Comments GLUCOSE RANDOM (BEAKER) (test yvue=395) 135 mg/dL 70-110 CALCIUM, [id number] 09:53:00 Test Item Value Reference Range Comments CALCIUM IONIZED (BEAKER) (test irpv=756) 1.01 mmol/L 1.12-1.27 PH, BLOOD (BEAKER) (test wiyv=5551) 7.43 SODIUM NA-STAT [id number] 09:51:00 Test Item Value Reference Range Comments SODIUM (BEAKER) (test bogi=175) 137 meq/L 135-148 HGB/HCT (H&H) - STAT [id number] 09:51:00 Test Item Value Reference Range Comments HEMOGLOBIN (BEAKER) (test txaq=164) 14.1 g/dL 12.0-15.0 HEMATOCRIT (BEAKER) (test iygw=972) 41.0 % 36.0-45.0 BLOOD GAS, [id number] 08:48:00 Test Item Value Reference Range Comments PH ARTERIAL (BEAKER) (test gsfe=119) 7.43 7.35-7.45 PCO2 ARTERIAL (BEAKER) (test aqer=871) 47 mmHg 35-45 PO2 ARTERIAL (BEAKER) (test mzjw=305) 481 mmHg 80-90 O2 SATURATION ARTERIAL (BEAKER) (test zojk=003) 99.9 % 96.0-97.0 HCO3 ARTERIAL (BEAKER) (test ivom=816) 31 mmol/L 21-29 BASE EXCESS ARTERIAL (BEAKER) (test fpbq=555) 5.1 mmol/L -2.0-3.0 PATIENT TEMPERATURE (BEAKER) (test lfwl=5720) 36.5 C FIO2 (BEAKER) (test iukf=0836) 100.0 % POTASSIUM-STAT [id number] 08:48:00 Test Item Value Reference Range Comments POTASSIUM (BEAKER) (test joxl=381) 3.1 meq/L 3.6-5.5 GLUCOSE-STAT [id number] 08:48:00 Test Item Value Reference Range Comments GLUCOSE RANDOM (BEAKER) (test snmy=401) 116 mg/dL 70-110 HGB/HCT (H&H) - STAT [id number] 08:48:00 Test Item Value Reference Range Comments HEMOGLOBIN (BEAKER) (test flvm=378) 15.5 g/dL 12.0-15.0 HEMATOCRIT (BEAKER) (test nwjh=934) 46.0 % 36.0-45.0 CALCIUM, [id number] 08:47:00 Test Item Value Reference Range Comments CALCIUM IONIZED (BEAKER) (test ddct=208) 1.12 mmol/L 1.12-1.27 PH, BLOOD (BEAKER) (test wnsl=9283) 7.42 SODIUM NA-STAT [id number] 08:46:00 Test Item Value Reference Range Comments SODIUM (BEAKER) (test xecv=311) 141 meq/L 135-148 POCT-GLUCOSE [id number] 07:58:00 Test Item Value Reference Range Comments POC-GLUCOSE METER (BEAKER) 105 mg/dL 70-110 TESTED AT [facility] [address] (test wzaf=4663) [place] [address] [id number] 15:19:00 Test Item Value Reference Range Comments PARTIAL THROMBOPLASTIN TIME (BEAKER) (test 27.8 seconds 22.5-36.0 olhr=228) PROTHROMBIN [id number] 15:18:00 Test Item Value Reference Range Comments PROTIME (BEAKER) (test mvnr=027) 14.4 seconds 11.7-14.7 INR (BEAKER) (test csti=541) 1.1 <=5.9 RECOMMENDED COUMADIN/WARFARIN INR THERAPY RANGESSTANDARD DOSE: 2.0 - 3.0 Includes: PROPHYLAXIS forvenous thrombosis, systemic embolization; TREATMENT for venous thrombosis and/or pulmonary embolus.HIGH RISK: Target INR is 2.5-3.5 for patients with mechanical heart valves.COMPREHENSIVE METABOLIC [id number] 15:10:00 Test Item Value Reference Range Comments TOTAL PROTEIN (BEAKER) 7.7 gm/dL 6.0-8.3 (test fdvw=561) ALBUMIN (BEAKER) (test 4.1 g/dL 3.5-5.0 slkb=2543) ALKALINE PHOSPHATASE 40 U/L 40-150 (BEAKER) (test sxsq=172) BILIRUBIN TOTAL (BEAKER) 0.8 mg/dL 0.2-1.2 (test bmzs=580) SODIUM (BEAKER) (test 143 meq/L 136-145 rylq=580) POTASSIUM (BEAKER) (test 4.1 meq/L 3.5-5.1 thxb=028) CHLORIDE (BEAKER) (test 101 meq/L 98-107 kwkk=619) CO2 (BEAKER) (test 30 meq/L 22-29 yeyj=844) BLOOD UREA NITROGEN 31 mg/dL 7-21 (BEAKER) (test ppve=569) CREATININE (BEAKER) (test 1.17 mg/dL 0.57-1.25 kzqw=025) GLUCOSE RANDOM (BEAKER) 142 mg/dL 70-105 (test npub=276) CALCIUM (BEAKER) (test 10.5 mg/dL 8.4-10.2 tygi=159) AST (SGOT) (BEAKER) (test 28 U/L 5-34 nkfu=050) ALT (SGPT) (BEAKER) (test 18 U/L 6-55 hqxq=210) EGFR (BEAKER) (test 44 mL/min/1.73 sq m ESTIMATED GFR IS NOT sumo=5059) ACCURATE CREATININE CLEARANCE IN PREDICTING GLOMERULAR FILTRATION RATE. ESTIMATED GFR IS NOT APPLICABLE FOR DIALYSIS PATIENTS. RAD, CHEST, 2 [id number] 14:44:00Reason for exam:->preopFINAL REPORT Chest two views [...] MDReport Verified Date/Time: 03/11/2018 14:44:31 Reading Location: [facility] C0[facility] Consult Reading Room CBC W/PLT COUNT & AUTO [id number] 14:43:00 Test Item Value Reference Range Comments WHITE BLOOD CELL COUNT (BEAKER) (test gglc=285) 7.8 K/ L 3.5-10.5 RED BLOOD CELL COUNT (BEAKER) (test ivdo=063) 5.48 M/ L 3.93-5.22 HEMOGLOBIN (BEAKER) (test gngs=344) 15.6 GM/DL 11.2-15.7 HEMATOCRIT (BEAKER) (test qxgr=044) 51.3 % 34.1-44.9 MEAN CORPUSCULAR VOLUME (BEAKER) (test zaui=226) 93.6 fL 79.4-94.8 MEAN CORPUSCULAR HEMOGLOBIN (BEAKER) (test 28.5 pg 25.6-32.2 enbn=529) MEAN CORPUSCULAR HEMOGLOBIN CONC (BEAKER) (test 30.4 GM/DL 32.2-35.5 mbuc=940) RED CELL DISTRIBUTION WIDTH (BEAKER) (test 14.2 % 11.7-14.4 fjdv=108) PLATELET COUNT (BEAKER) (test veot=723) 251 K/CU MM 150-450 MEAN PLATELET VOLUME (BEAKER) (test xbsy=692) 11.4 fL 9.4-12.3 NUCLEATED RED BLOOD CELLS (BEAKER) (test 0 /100 WBC 0-0 ahmc=200) NEUTROPHILS RELATIVE PERCENT (BEAKER) (test 85 % bbmz=889) LYMPHOCYTES RELATIVE PERCENT (BEAKER) (test 10 % llnx=886) MONOCYTES RELATIVE PERCENT (BEAKER) (test 3 % bbzw=780) EOSINOPHILS RELATIVE PERCENT (BEAKER) (test 0 % lhuu=770) BASOPHILS RELATIVE PERCENT (BEAKER) (test 1 % ucuy=084) NEUTROPHILS ABSOLUTE COUNT (BEAKER) (test 6.61 K/ L 1.56-6.13 oklm=305) LYMPHOCYTES ABSOLUTE COUNT (BEAKER) (test 0.79 K/ L 1.18-3.74 aigl=744) MONOCYTES ABSOLUTE COUNT (BEAKER) (test 0.26 K/ L 0.24-0.36 ntvq=798) EOSINOPHILS ABSOLUTE COUNT (BEAKER) (test 0.01 K/ L 0.04-0.36 akdj=885) BASOPHILS ABSOLUTE COUNT (BEAKER) (test 0.07 K/ L 0.01-0.08 otie=901) IMMATURE GRANULOCYTES-RELATIVE PERCENT (BEAKER) 1 % 0-1 (test mlxt=1409)
[2019-10-19] MEDS ORDERED: MEPERIDINE HCL 25 MG/0.5 ML ONE ×2 (10:14→10:57)
--- NOTE | 2019-10-19 10:56 | RAD REPORT ---
EXAM DESCRIPTION: CT - Chest Abd Pelvis Wo Con - 10/19/2019 10:30 am CLINICAL HISTORY: Chest and abdomen pain. fall from bed, posterior lower chest pain, flank pain, lumb COMPARISON: Thorax Wo Con dated 10/22/2018 TECHNIQUE: A limited noncontrast study was performed. All CT scans are performed using dose optimization technique as appropriate and may include automated exposure control or mA/KV adjustment according to patient size. FINDINGS: The lungs are emphysematous.No displaced rib fractures are evident.No pleural or pericardi al effusion.No intrathoracic adenopathy. Punctate right renal calculi without hydronephrosis. 2 cm cyst left lobe of the liver, likely benign. The spleen, pancreas, adrenal glands and left kidney are within normal limits. No bowel obstruction, free air, free fluid or abscess. No pathologic lymphadenopathy in the abdomen or pelvis. Moderate lumbosacral degenerative changes. IMPRESSION: No acute abnormality is detected.
--- NOTE | 2019-10-19 11:12 | RAD REPORT ---
EXAM DESCRIPTION: RAD - Humerus Left - 10/19/2019 10:55 am CLINICAL HISTORY: PAIN COMPARISON: No comparisons FINDINGS: No fracture or dislocation is evident. Mild degenerative changes are present left shoulder .
[2019-10-19 11:33] LABS: Urine Blood NEGATIVE (NEG); Urine Glucose NEGATIVE (NEG); Urine Protein NEGATIVE (NEG); Urine pH 5.5 (5.0-7.0)
--- NOTE | 2019-10-19 11:35 | EDPHYS ---
Physician Documentation [facility] Name: Fanny Arceo Age: 83 yrs Sex: Female : 1935 Arrival Date: 10/19/2019 Time: 09:29 Bed 6 Private MD: Sherry Stock R ED Physician Neel Rosales HPI: 10/19 10:04 This 83 yrs old Female presents to ER via Wheelchair with complaints of Fall rn Injury. 10:04 Details of fall: The patient fell from a supine position, out of bed. Onset: The rn symptoms/episode began/occurred just prior to arrival. Associated injuries: The patient sustained flanks, left shoulder. Severity of symptoms: At their worst the symptoms were mild, in the emergency department the symptoms are unchanged. The patient has not experienced similar symptoms in the past. Fall out of bed, reports right flank/back pain, left shoulder pain.. Historical: - Allergies: 09:57 Atenolol; sv 09:57 Morphine; sv 09:57 Simvastatin; sv 09:57 Sulfa (Sulfonamide Antibiotics); sv 09:57 Ticlopidine HCl; sv - PMHx: 09:58 Atrial Fib; CAD; neuropathy; CHF; Sleep Apnea; chronic renal failure; Clot to right sv arm; COPD; Depression; Diabetes - IDDM; GERD; High Cholesterol; Hyperlipidemia; Hypertension; Hypothyroidism; - PSHx: 09:58 Hysterectomy; Cholecystectomy; Appendectomy; Heart stents; pacemaker; Aneurysm of Leg sv Artery; - Immunization history:: Adult Immunizations up to date. - Social history:: Smoking status: Patient/guardian denies using tobacco. - Ebola Screening: : Patient denies exposure to infectious person Patient denies travel to an Ebola-affected area in the 21 days before illness onset. - Family history:: not pertinent. - Hospitalizations: : No recent hospitalization is reported. ROS: 10:04 Constitutional: Negative for fever, chills, and weight loss, Eyes: Negative for injury, rn pain, redness, and discharge, Neck: Negative for injury, pain, and swelling, Cardiovascular: Negative for chest pain, palpitations, and edema, Respiratory: Negative for shortness of breath, cough, wheezing, and pleuritic chest pain, Abdomen/GI: Negative for abdominal pain, nausea, vomiting, diarrhea, and constipation, Back: + right flank pain MS/Extremity: + left shoulder pain Neuro: Negative for headache, weakness, numbness, tingling, and seizure. Exam: 10:04 Constitutional: This is a well developed, well nourished patient who is awake, alert, rn appears uncomfortable Head/Face: Normocephalic, atraumatic. Eyes: Pupils equal round and reactive to light, extra-ocular motions intact. Lids and lashes normal. Conjunctiva and sclera are non-icteric and not injected. Cornea within normal limits. Periorbital areas with no swelling, redness, or edema. ENT: no oral trauma Neck: Trachea midline, no thyromegaly or masses palpated, and no cervical lymphadenopathy. Supple, full range of motion without nuchal rigidity, or vertebral point tenderness. No Meningismus. Chest/axilla: Normal chest wall appearance and motion. Nontender with no deformity. No lesions are appreciated. Cardiovascular: Regular rate and rhythm. No pulse deficits. Respiratory: Lungs have equal breath sounds bilaterally, clear to auscultation. No increased work of breathing, no retractions or nasal flaring. Abdomen/GI: soft, non-tender Back: No spinal tenderness, + right flank and right perilumbar tenderness. MS/ Extremity: Pulses equal, no cyanosis. Neurovascular intact. + mild painful ROM left shoulder, no focal tenderness or swelling. No hip tenderness. ROM of lower extremities causes right lower back to hurt. Neuro: Awake and alert, GCS 15, oriented to person, place, time, and situation. Cranial nerves II-XII grossly intact. Motor strength 5/5 in all extremities. Sensory grossly intact. Cerebellar exam normal. Normal gait. Vital Signs: 09:55 BP 146 / 92; Pulse 64; Resp 20; Temp 98; Pulse Ox 100% ; Weight 106 kg; Height 5 ft. 6 sv in. (167.64 cm); 10:50 BP 142 / 88; Pulse 70; Resp 16; Temp 98; Pulse Ox 98% ; sv 09:55 Body Mass Index 37.72 (106.00 kg, 167.64 cm) sv Shiloh Coma Score: 09:55 Eye Response: spontaneous(4). Verbal Response: oriented(5). Motor Response: obeys sv commands(6). Total: 15. 10:50 Eye Response: spontaneous(4). Verbal Response: oriented(5). Motor Response: obeys sv commands(6). Total: 15. Trauma Score (Adult): 09:55 Eye Response: spontaneous(1); Verbal Response: oriented(1); Motor Response: obeys sv commands(2); Systolic BP: > 89 mm Hg(4); Respiratory Rate: 10 to 29 per min(4); César Score: 15; Trauma Score: 12 10:50 Eye Response: spontaneous(1); Verbal Response: oriented(1); Motor Response: obeys sv commands(2); Systolic BP: > 89 mm Hg(4); Respiratory Rate: 10 to 29 per min(4); [place] Score: 15; Trauma Score: 12 MDM: 09:45 Patient medically screened. rn 11:32 Differential diagnosis: closed head injury, contusion, fracture, sprain, strain. Data rn reviewed: vital signs, nurses notes, lab test result(s), radiologic studies, CT scan, plain films, and as a result, I will discharge patient. Counseling: I had a detailed discussion with the patient and/or guardian regarding: the historical points, exam findings, and any diagnostic results supporting the discharge/admit diagnosis, radiology results, the need for outpatient follow up, to return to the emergency department if symptoms worsen or persist or if there are any questions or concerns that arise at home. Response to treatment: the patient's symptoms have mildly improved after treatment, and as a result, I will discharge patient. Special discussion: I discussed with the patient/guardian in detail that at this point there is no indication for admission to the hospital. It is understood, however, that if the symptoms persist or worsen the patient needs to return immediately for re-evaluation. ED course: Neg ct for trauma, neg xray left humerus, neg UA per patient's request, will dc home with conservative therapy.. 10/19 11:28 Order name: Urine Dipstick--Ancillary (enter results) ms 10/19 09:57 Order name: CT Chest Abdomen Pelvis W/O Contrast; Complete Time: 11:14 rn 10/19 09:57 Order name: XRAY Humerus LEFT; Complete Time: 11:14 rn 10/19 09:57 Order name: IV Start; Complete Time: 10:14 rn Administered Medications: 10:14 Drug: Demerol - Meperidine 12.5 mg Route: IVP; Site: left forearm; sv 10:44 Follow up: Response: No adverse reaction; RASS: Alert and Calm (0) sv 10:57 Drug: Demerol - Meperidine 12.5 mg Route: IVP; Site: left forearm; sv 11:29 Follow up: Response: No adverse reaction; Pain is decreased; RASS: Alert and Calm (0) sv Disposition: 10/19/19 11:34 Discharged to Home. Impression: Contusion of right hip, Contusion of lower back and pelvis, Contusion of left shoulder. - Condition is Stable. - Discharge Instructions: Contusion, Shoulder Pain. - Medication Reconciliation Form, Thank You Letter, Antibiotic Education, Prescription Opioid Use form. - Follow up: Private Physician; When: As needed; Reason: Recheck today's complaints, Re-evaluation by your physician. - Problem is new. - Symptoms have improved. Signatures: Dispatcher [employer] EDMelany Geronimo RN RN sv Villarreal, Maria ms Nieto, Roman, MD MD rn Smirch, Shelby, RN RN Corrections: (The following items were deleted from the chart) 12:22 11:34 10/19/2019 11:34 Discharged to Home. Impression: Contusion of right hip; ms Contusion of lower back and pelvis; Contusion of left shoulder. Condition is Stable. Forms are Medication Reconciliation Form, Thank You Letter, Antibiotic Education, Prescription Opioid Use. Follow up: Private Physician; When: As needed; Reason: Recheck today's complaints, Re-evaluation by your physician. Problem is new. Symptoms have improved. rn
--- NOTE | 2019-10-19 11:35 | ER ---
Nurse's Notes [facility] Name: Fanny Arceo Age: 83 yrs Sex: Female : 1935 Arrival Date: 10/19/2019 Time: 09:29 Bed 6 Private MD: Sherry Stock R Diagnosis: Contusion of right hip;Contusion of lower back and pelvis;Contusion of left shoulder Presentation: 10/19 09:43 Presenting complaint: Patient states: Had sudden back spasm then rolled out of bed this ss am. Pt c/o L shoulder pain and R hip/ R low back pain. Care prior to arrival: None. Mechanism of Injury: No Mechanism of Injury. Trauma event details: Injury occurred in the [facility], Injury occurred: at home. Injury occurred: October 19, 2019. 09:43 Acuity: JESSE 3 ss 09:43 Method Of Arrival: Wheelchair ss 09:43 Transition of care: patient was not received from another setting of care. Onset of ss symptoms was October 19, 2019. Risk Assessment: Do you want to hurt yourself or someone else? Patient reports no desire to harm self or others. Initial Sepsis Screen: Does the patient meet any 2 criteria? No. Patient's initial sepsis screen is negative. Does the patient have a suspected source of infection? No. Patient's initial sepsis screen is negative. Trauma Activation: Not Applicable Physician: ED Physician; Name: ; Notified At: ; Arrived At: Physician: General Surgeon; Name: ; Notified At: ; Arrived At: Physician: Radiology; Name: ; Notified At: ; Arrived At: Physician: Respiratory; Name: ; Notified At: ; Arrived At: Physician: Lab; Name: ; Notified At: ; Arrived At: Historical: - Allergies: 09:57 Atenolol; sv 09:57 Morphine; sv 09:57 Simvastatin; sv 09:57 Sulfa (Sulfonamide Antibiotics); sv 09:57 Ticlopidine HCl; sv - PMHx: 09:58 Atrial Fib; CAD; neuropathy; CHF; Sleep Apnea; chronic renal failure; Clot to right sv arm; COPD; Depression; Diabetes - IDDM; GERD; High Cholesterol; Hyperlipidemia; Hypertension; Hypothyroidism; - PSHx: 09:58 Hysterectomy; Cholecystectomy; Appendectomy; Heart stents; pacemaker; Aneurysm of Leg sv Artery; - Immunization history:: Adult Immunizations up to date. - Social history:: Smoking status: Patient/guardian denies using tobacco. - Ebola Screening: : Patient denies exposure to infectious person Patient denies travel to an Ebola-affected area in the 21 days before illness onset. - Family history:: not pertinent. - Hospitalizations: : No recent hospitalization is reported. Screenin:55 Abuse screen: Denies threats or abuse. Denies injuries from another. Nutritional sv screening: No deficits noted. Tuberculosis screening: No symptoms or risk factors identified. Fall Risk None identified. Assessment: 09:55 General: Appears in no apparent distress. uncomfortable, well developed, Behavior is sv cooperative, appropriate for age, restless. Pain: Complains of pain in right low back and posterior aspect of right lateral abdomen and left shoulder Pain currently is 8 out of 10 on a pain scale. Neuro: Level of Consciousness is awake, alert, obeys commands, Oriented to person, place, time, situation, Moves all extremities. Respiratory: Airway is patent Respiratory effort is even, unlabored, Respiratory pattern is regular, symmetrical. Derm: Skin is pink, warm \T\ dry. Musculoskeletal: Range of motion: intact in all extremities, Reports pain in posterior aspect of right lateral abdomen and left shoulder with ROM. 10:44 Reassessment: Xray at the bedside. sv 12:22 Reassessment: Patient appears in no apparent distress at this time. No changes from sv previously documented assessment. Patient and/or family updated on plan of care and expected duration. Pain level reassessed. Patient is alert, oriented x 3, equal unlabored respirations, skin warm/dry/pink. Vital Signs: 09:55 BP 146 / 92; Pulse 64; Resp 20; Temp 98; Pulse Ox 100% ; Weight 106 kg; Height 5 ft. 6 sv in. (167.64 cm); 10:50 BP 142 / 88; Pulse 70; Resp 16; Temp 98; Pulse Ox 98% ; sv 09:55 Body Mass Index 37.72 (106.00 kg, 167.64 cm) sv César Coma Score: 09:55 Eye Response: spontaneous(4). Verbal Response: oriented(5). Motor Response: obeys sv commands(6). Total: 15. 10:50 Eye Response: spontaneous(4). Verbal Response: oriented(5). Motor Response: obeys sv commands(6). Total: 15. Trauma Score (Adult): 09:55 Eye Response: spontaneous(1); Verbal Response: oriented(1); Motor Response: obeys sv commands(2); Systolic BP: > 89 mm Hg(4); Respiratory Rate: 10 to 29 per min(4); [place] Score: 15; Trauma Score: 12 10:50 Eye Response: spontaneous(1); Verbal Response: oriented(1); Motor Response: obeys sv commands(2); Systolic BP: > 89 mm Hg(4); Respiratory Rate: 10 to 29 per min(4); César Score: 15; Trauma Score: 12 ED Course: 09:29 Patient arrived in ED. as 09:29 Sherry Stock MD is Private Physician. as 09:43 Arm band placed on right wrist. ss 09:45 Neel Rosales MD is Attending Physician. rn 09:47 Melany Smyth RN is Primary Nurse. sv 09:55 Patient has correct armband on for positive identification. Placed in gown. Bed in low sv position. Call light in reach. Side rails up X2. Adult w/ patient. Pulse ox on. NIBP on. 09:55 Door closed. Warm blanket given. Head of bed elevated. sv 10:00 Triage completed. ss 10:10 Inserted saline lock: 22 gauge in left forearm, using aseptic technique. Blood sv collected. Flushed left forearm with 5 ml normal saline. 10:[address] via stretcher. sv 10:27 CT completed. Patient tolerated procedure well. Patient moved back from CT. bq 10:30 CT Chest Abdomen Pelvis W/O Contrast In Process Unspecified. EDMS 10:55 XRAY Humerus LEFT In Process Unspecified. EDMS 11:12 Awaiting radiology results. sv 11:29 Urine Dipstick--Ancillary (enter results) Sent. sv 11:29 No provider procedures requiring assistance completed. IV discontinued, intact, sv bleeding controlled, No redness/swelling at site. Pressure dressing applied. Administered Medications: 10:14 Drug: Demerol - Meperidine 12.5 mg Route: IVP; Site: left forearm; sv 10:44 Follow up: Response: No adverse reaction; RASS: Alert and Calm (0) sv 10:57 Drug: Demerol - Meperidine 12.5 mg Route: IVP; Site: left forearm; sv 11:29 Follow up: Response: No adverse reaction; Pain is decreased; RASS: Alert and Calm (0) sv Intake: 09:55 PO: 0ml; Total: 0ml. sv 10:50 PO: 0ml; Total: 0ml. sv Output: 09:55 Urine: 0ml; Total: 0ml. sv 10:50 Urine: 0ml; Total: 0ml. sv Outcome: 11:34 Discharge ordered by . rn 12:22 Patient left the ED. ms 12:22 Discharged to home via wheelchair, with family. sv 12:22 Condition: stable 12:22 Discharge instructions given to patient, family, Instructed on discharge instructions, follow up and referral plans. Demonstrated understanding of instructions, follow-up care. Signatures: Dispatcher [employer] Melany Hewitt RN RN sv Quilty, Betty bq Martinez, Amelia as Villarreal, Maria ms Nieto, Roman, MD MD rn Smirch, Shelby, RN RN ss Corrections: (The following items were deleted from the chart) 10:21 09:55 BP 146 / 92; Pulse 64bpm; Resp 20bpm; Pulse Ox 100%; sv sv 10:21 09:55 BP 146 / 92; Pulse 64bpm; Resp 20bpm; Pulse Ox 100%; Temp 98F; sv sv 10:22 09:55 BP 146 / 92; Pulse 64bpm; Resp 20bpm; Pulse Ox 100%; Temp 98F; Height 5 ft. 6 sv in.; sv
[2019-10-19 12:45] VITALS: TEMP 98
[2019-10-19 12:46] VITALS: BP 142/88; O2SAT 98
== END 2019-10-19 12:22 | disposition home or self-care (01) ==
LOC: ER 09:27
DX: S40.012A Contusion of left shoulder, initial encounter (principal); S30.0XXA Contusion of lower back and pelvis, initial encounter; S70.01XA Contusion of right hip, initial encounter; W06.XXXA Fall from bed, initial encounter; Y93.9 Activity, unspecified; Y92.9 Unspecified place or not applicable; Z95.0 Presence of cardiac pacemaker; Z95.818 Presence of other cardiac implants and grafts; Z88.5 Allergy status to narcotic agent; Z88.2 Allergy status to sulfonamides; Z88.8 Allergy status to other drugs, medicaments and biological substances; I10 Essential (primary) hypertension
CPT/HCPCS: 81003; 71250; 74176; 73060; 96374; 99284; J2175 ×2

== ENCOUNTER 2019-11-05 18:55 | Inpatient (IN) | payer OTHER, MEDICARE ==
--- OUTSIDE RECORDS SUMMARY | 2019-11-05 19:01 | XMS REPORT ---
:1935 [facility] Address [address] [place] [address] [address] [place] [address] Care Team Providers Name Role Phone KEILA [...] (BEAKER) (test 131 mg/dL 70-110 TESTED AT [facility] [address] [facility] sduo=3802) [facility] [address] BASIC METABOLIC [id number] 06:08:00 Test Item Value Reference Range Comments SODIUM (BEAKER) (test 144 meq/L 136-145 kasz=340) POTASSIUM (BEAKER) (test 4.0 meq/L 3.5-5.1 ztrm=222) CHLORIDE (BEAKER) (test 102 meq/L 98-107 nuev=365) CO2 (BEAKER) (test 36 meq/L 22-29 utoy=959) BLOOD UREA NITROGEN 18 mg/dL 7-21 (BEAKER) (test qcwq=374) CREATININE (BEAKER) (test 0.90 mg/dL 0.57-1.25 dfzx=967) GLUCOSE RANDOM (BEAKER) 106 mg/dL 70-105 (test uhns=326) CALCIUM (BEAKER) (test 9.4 mg/dL 8.4-10.2 xfyz=368) EGFR (BEAKER) (test 60 mL/min/1.73 sq m ESTIMATED GFR IS NOT wpjt=4582) ACCURATE CREATININE CLEARANCE IN PREDICTING GLOMERULAR FILTRATION RATE. ESTIMATED GFR IS NOT APPLICABLE FOR DIALYSIS PATIENTS. CBC W/PLT COUNT & AUTO [id number] 05:33:00 Test Item Value Reference Range Comments WHITE BLOOD CELL COUNT (BEAKER) (test suhz=032) 8.4 K/ L 3.5-10.5 RED BLOOD CELL COUNT (BEAKER) (test nqif=753) 4.99 M/ L 3.93-5.22 HEMOGLOBIN (BEAKER) (test xaxf=939) 14.7 GM/DL 11.2-15.7 HEMATOCRIT (BEAKER) (test szko=796) 48.2 % 34.1-44.9 MEAN CORPUSCULAR VOLUME (BEAKER) (test ervs=266) 96.6 fL 79.4-94.8 MEAN CORPUSCULAR HEMOGLOBIN (BEAKER) (test 29.5 pg 25.6-32.2 liaq=347) MEAN CORPUSCULAR HEMOGLOBIN CONC (BEAKER) (test 30.5 GM/DL 32.2-35.5 wvkg=208) RED CELL DISTRIBUTION WIDTH (BEAKER) (test 13.2 % 11.7-14.4 wpne=664) PLATELET COUNT (BEAKER) (test nvot=923) 223 K/CU MM 150-450 MEAN PLATELET VOLUME (BEAKER) (test kdnj=612) 11.7 fL 9.4-12.3 NUCLEATED RED BLOOD CELLS (BEAKER) (test 0 /100 WBC 0-0 anvh=608) NEUTROPHILS RELATIVE PERCENT (BEAKER) (test 74 % neib=195) LYMPHOCYTES RELATIVE PERCENT (BEAKER) (test 14 % vzuj=547) MONOCYTES RELATIVE PERCENT (BEAKER) (test 8 % cjxb=015) EOSINOPHILS RELATIVE PERCENT (BEAKER) (test 3 % hstz=085) BASOPHILS RELATIVE PERCENT (BEAKER) (test 1 % esxs=054) NEUTROPHILS ABSOLUTE COUNT (BEAKER) (test 6.23 K/ L 1.56-6.13 stup=861) LYMPHOCYTES ABSOLUTE COUNT (BEAKER) (test 1.21 K/ L 1.18-3.74 rxij=891) MONOCYTES ABSOLUTE COUNT (BEAKER) (test 0.68 K/ L 0.24-0.36 fihp=297) EOSINOPHILS ABSOLUTE COUNT (BEAKER) (test 0.21 K/ L 0.04-0.36 zbes=536) BASOPHILS ABSOLUTE COUNT (BEAKER) (test 0.07 K/ L 0.01-0.08 zemx=813) IMMATURE GRANULOCYTES-RELATIVE PERCENT (BEAKER) 1 % 0-1 (test olcs=0979) POCT-GLUCOSE [id number] 02:04:00 Test Item Value Reference Range Comments POC-GLUCOSE METER (BEAKER) 143 mg/dL 70-110 TESTED AT [address] (test eavs=1597) [facility] [address] POCT-GLUCOSE [id number] 17:20:00 Test Item Value Reference Range Comments POC-GLUCOSE METER (BEAKER) 148 mg/dL 70-110 TESTED AT [address] (test ddyx=3119) [facility] [address] POCT-GLUCOSE [id number] 13:03:00 Test Item Value Reference Range Comments POC-GLUCOSE METER (BEAKER) 179 mg/dL 70-110 TESTED AT [address] (test xyyf=3071) [facility] [address] POCT-GLUCOSE [id number] 08:04:00 Test Item Value Reference Range Comments POC-GLUCOSE METER (BEAKER) 82 mg/dL 70-110 TESTED AT [address] (test muok=3509) [facility] [address] [id number] 06:10:00 Test Item Value Reference Range Comments MAGNESIUM (BEAKER) (test zydp=226) 1.9 mg/dL 1.6-2.6 BASIC METABOLIC [id number] 06:10:00 Test Item Value Reference Range Comments SODIUM (BEAKER) (test 142 meq/L 136-145 bjrm=088) POTASSIUM (BEAKER) (test 4.1 meq/L 3.5-5.1 vhed=451) CHLORIDE (BEAKER) (test 104 meq/L 98-107 vtwb=570) CO2 (BEAKER) (test 32 meq/L 22-29 dusd=796) BLOOD UREA NITROGEN 28 mg/dL 7-21 (BEAKER) (test lsaf=602) CREATININE (BEAKER) (test 0.91 mg/dL 0.57-1.25 aaka=226) GLUCOSE RANDOM (BEAKER) 96 mg/dL 70-105 (test iehh=254) CALCIUM (BEAKER) (test 9.4 mg/dL 8.4-10.2 tutv=948) EGFR (BEAKER) (test 59 mL/min/1.73 sq m ESTIMATED GFR IS NOT gjyr=3278) ACCURATE CREATININE CLEARANCE IN PREDICTING GLOMERULAR FILTRATION RATE. ESTIMATED GFR IS NOT APPLICABLE FOR DIALYSIS PATIENTS. CBC W/PLT COUNT & AUTO [id number] 05:25:00 Test Item Value Reference Range Comments WHITE BLOOD CELL COUNT (BEAKER) (test lagw=828) 7.0 K/ L 3.5-10.5 RED BLOOD CELL COUNT (BEAKER) (test qbla=533) 4.68 M/ L 3.93-5.22 HEMOGLOBIN (BEAKER) (test sflv=333) 14.1 GM/DL 11.2-15.7 HEMATOCRIT (BEAKER) (test szxh=291) 45.7 % 34.1-44.9 MEAN CORPUSCULAR VOLUME (BEAKER) (test ftjj=251) 97.6 fL 79.4-94.8 MEAN CORPUSCULAR HEMOGLOBIN (BEAKER) (test 30.1 pg 25.6-32.2 rbdf=363) MEAN CORPUSCULAR HEMOGLOBIN CONC (BEAKER) (test 30.9 GM/DL 32.2-35.5 ihwf=978) RED CELL DISTRIBUTION WIDTH (BEAKER) (test 13.4 % 11.7-14.4 lpsk=158) PLATELET COUNT (BEAKER) (test ytps=126) 217 K/CU MM 150-450 MEAN PLATELET VOLUME (BEAKER) (test igsq=823) 11.4 fL 9.4-12.3 NUCLEATED RED BLOOD CELLS (BEAKER) (test 0 /100 WBC 0-0 yrsd=034) NEUTROPHILS RELATIVE PERCENT (BEAKER) (test 71 % csro=395) LYMPHOCYTES RELATIVE PERCENT (BEAKER) (test 17 % rlya=072) MONOCYTES RELATIVE PERCENT (BEAKER) (test 8 % pjdw=242) EOSINOPHILS RELATIVE PERCENT (BEAKER) (test 2 % taxp=785) BASOPHILS RELATIVE PERCENT (BEAKER) (test 1 % zovt=946) NEUTROPHILS ABSOLUTE COUNT (BEAKER) (test 4.97 K/ L 1.56-6.13 znhd=311) LYMPHOCYTES ABSOLUTE COUNT (BEAKER) (test 1.17 K/ L 1.18-3.74 uogi=615) MONOCYTES ABSOLUTE COUNT (BEAKER) (test 0.57 K/ L 0.24-0.36 hval=918) EOSINOPHILS ABSOLUTE COUNT (BEAKER) (test 0.17 K/ L 0.04-0.36 zzbh=731) BASOPHILS ABSOLUTE COUNT (BEAKER) (test 0.06 K/ L 0.01-0.08 latj=442) IMMATURE GRANULOCYTES-RELATIVE PERCENT (BEAKER) 0 % 0-1 (test zxng=4935) POCT-GLUCOSE [id number] 00:02:00 Test Item Value Reference Range Comments POC-GLUCOSE METER (BEAKER) 191 mg/dL 70-110 TESTED AT [place] [id number] [facility] (test avyg=3461) [facility] [address] POCT-GLUCOSE [id number] 17:16:00 Test Item Value Reference Range Comments POC-GLUCOSE METER (BEAKER) 170 mg/dL 70-110 TESTED AT [address] (test mczs=3240) [place] [address] POCT-GLUCOSE [id number] 09:03:00 Test Item Value Reference Range Comments POC-GLUCOSE METER (BEAKER) 97 mg/dL 70-110 TESTED AT [address] (test kjpx=0834) [place] [address] [id number] 07:03:00 Test Item Value Reference Range Comments MAGNESIUM (BEAKER) (test ljtv=441) 1.9 mg/dL 1.6-2.6 BASIC METABOLIC [id number] 07:03:00 Test Item Value Reference Range Comments SODIUM (BEAKER) (test 141 meq/L 136-145 pskl=780) POTASSIUM (BEAKER) (test 4.0 meq/L 3.5-5.1 rhkd=117) CHLORIDE (BEAKER) (test 104 meq/L 98-107 hrfh=018) CO2 (BEAKER) (test 30 meq/L 22-29 yubv=455) BLOOD UREA NITROGEN 23 mg/dL 7-21 (BEAKER) (test xcuh=684) CREATININE (BEAKER) (test 0.99 mg/dL 0.57-1.25 hvwg=837) GLUCOSE RANDOM (BEAKER) 93 mg/dL 70-105 (test dtle=263) CALCIUM (BEAKER) (test 9.3 mg/dL 8.4-10.2 bnbw=056) EGFR (BEAKER) (test 53 mL/min/1.73 sq m ESTIMATED GFR IS NOT tpwl=8283) ACCURATE CREATININE CLEARANCE IN PREDICTING GLOMERULAR FILTRATION RATE. ESTIMATED GFR IS NOT APPLICABLE FOR DIALYSIS PATIENTS. [id number] 07:03:00 Test Item Value Reference Range Comments LIPASE (BEAKER) (test bgue=167) 101 U/L 8-78 CBC W/PLT COUNT & AUTO [id number] 06:46:00 Test Item Value Reference Range Comments WHITE BLOOD CELL COUNT (BEAKER) (test udxl=429) 8.3 K/ L 3.5-10.5 RED BLOOD CELL COUNT (BEAKER) (test syrc=519) 4.88 M/ L 3.93-5.22 HEMOGLOBIN (BEAKER) (test yysh=100) 14.3 GM/DL 11.2-15.7 HEMATOCRIT (BEAKER) (test xnlc=843) 47.6 % 34.1-44.9 MEAN CORPUSCULAR VOLUME (BEAKER) (test pvyl=058) 97.5 fL 79.4-94.8 MEAN CORPUSCULAR HEMOGLOBIN (BEAKER) (test 29.3 pg 25.6-32.2 xuft=569) MEAN CORPUSCULAR HEMOGLOBIN CONC (BEAKER) (test 30.0 GM/DL 32.2-35.5 cskx=118) RED CELL DISTRIBUTION WIDTH (BEAKER) (test 13.2 % 11.7-14.4 ajsm=556) PLATELET COUNT (BEAKER) (test jnst=393) 216 K/CU MM 150-450 MEAN PLATELET VOLUME (BEAKER) (test eqnr=679) 11.3 fL 9.4-12.3 NUCLEATED RED BLOOD CELLS (BEAKER) (test 0 /100 WBC 0-0 ungd=893) NEUTROPHILS RELATIVE PERCENT (BEAKER) (test 76 % mppr=344) LYMPHOCYTES RELATIVE PERCENT (BEAKER) (test 13 % djzy=564) MONOCYTES RELATIVE PERCENT (BEAKER) (test 7 % fuse=825) EOSINOPHILS RELATIVE PERCENT (BEAKER) (test 3 % xxsk=597) BASOPHILS RELATIVE PERCENT (BEAKER) (test 1 % xocx=022) NEUTROPHILS ABSOLUTE COUNT (BEAKER) (test 6.34 K/ L 1.56-6.13 tlzc=089) LYMPHOCYTES ABSOLUTE COUNT (BEAKER) (test 1.05 K/ L 1.18-3.74 ubvf=792) MONOCYTES ABSOLUTE COUNT (BEAKER) (test 0.61 K/ L 0.24-0.36 xfqi=385) EOSINOPHILS ABSOLUTE COUNT (BEAKER) (test 0.26 K/ L 0.04-0.36 ctlc=586) BASOPHILS ABSOLUTE COUNT (BEAKER) (test 0.06 K/ L 0.01-0.08 chle=031) IMMATURE GRANULOCYTES-RELATIVE PERCENT (BEAKER) 0 % 0-1 (test wtjh=9092) POCT-GLUCOSE [id number] 22:21:00 Test Item Value Reference Range Comments POC-GLUCOSE METER (BEAKER) 103 mg/dL 70-110 TESTED AT [address] (test tnyb=2192) [place] [address] POCT-GLUCOSE [id number] 17:07:00 Test Item Value Reference Range Comments POC-GLUCOSE METER (BEAKER) 147 mg/dL 70-110 TESTED AT [address] (test uijy=7597) [place] [address] POCT-GLUCOSE [id number] 09:05:00 Test Item Value Reference Range Comments POC-GLUCOSE METER (BEAKER) 117 mg/dL 70-110 TESTED AT [address] (test wuje=3803) [facility] [address] CBC W/PLT COUNT & AUTO [id number] 07:06:00 Test Item Value Reference Range Comments WHITE BLOOD CELL COUNT (BEAKER) (test sxhn=143) 10.5 K/ L 3.5-10.5 RED BLOOD CELL COUNT (BEAKER) (test frhl=269) 5.13 M/ L 3.93-5.22 HEMOGLOBIN (BEAKER) (test enij=517) 15.1 GM/DL 11.2-15.7 HEMATOCRIT (BEAKER) (test sbdt=344) 50.7 % 34.1-44.9 MEAN CORPUSCULAR VOLUME (BEAKER) (test cbhj=471) 98.8 fL 79.4-94.8 MEAN CORPUSCULAR HEMOGLOBIN (BEAKER) (test 29.4 pg 25.6-32.2 vujd=165) MEAN CORPUSCULAR HEMOGLOBIN CONC (BEAKER) (test 29.8 GM/DL 32.2-35.5 nfhd=275) RED CELL DISTRIBUTION WIDTH (BEAKER) (test 13.1 % 11.7-14.4 ulvb=069) PLATELET COUNT (BEAKER) (test smiz=891) 230 K/CU MM 150-450 MEAN PLATELET VOLUME (BEAKER) (test twfm=345) 11.6 fL 9.4-12.3 NUCLEATED RED BLOOD CELLS (BEAKER) (test 0 /100 WBC 0-0 rwih=411) NEUTROPHILS RELATIVE PERCENT (BEAKER) (test 79 % ghmy=086) LYMPHOCYTES RELATIVE PERCENT (BEAKER) (test 11 % jcoo=859) MONOCYTES RELATIVE PERCENT (BEAKER) (test 7 % deda=009) EOSINOPHILS RELATIVE PERCENT (BEAKER) (test 3 % szic=176) BASOPHILS RELATIVE PERCENT (BEAKER) (test 1 % ezlu=738) NEUTROPHILS ABSOLUTE COUNT (BEAKER) (test 8.32 K/ L 1.56-6.13 txoc=975) LYMPHOCYTES ABSOLUTE COUNT (BEAKER) (test 1.13 K/ L 1.18-3.74 peiy=872) MONOCYTES ABSOLUTE COUNT (BEAKER) (test 0.68 K/ L 0.24-0.36 yioj=173) EOSINOPHILS ABSOLUTE COUNT (BEAKER) (test 0.26 K/ L 0.04-0.36 wlhc=294) BASOPHILS ABSOLUTE COUNT (BEAKER) (test 0.07 K/ L 0.01-0.08 drhq=847) IMMATURE GRANULOCYTES-RELATIVE PERCENT (BEAKER) 1 % 0-1 (test fltl=8865) [id number] 06:38:00 Test Item Value Reference Range Comments MAGNESIUM (BEAKER) (test 2.0 mg/dL 1.6-2.6 Specimen slightly hemolyzed awmb=897) BASIC METABOLIC [id number] 06:38:00 Test Item Value Reference Range Comments SODIUM (BEAKER) (test 141 meq/L 136-145 qhgj=382) POTASSIUM (BEAKER) (test 4.3 meq/L 3.5-5.1 Specimen slightly gqgy=747) hemolyzed CHLORIDE (BEAKER) (test 106 meq/L 98-107 uvjx=443) CO2 (BEAKER) (test 23 meq/L 22-29 vlku=446) BLOOD UREA NITROGEN 20 mg/dL 7-21 (BEAKER) (test akau=739) CREATININE (BEAKER) (test 0.81 mg/dL 0.57-1.25 Specimen slightly zpkr=334) hemolyzed GLUCOSE RANDOM (BEAKER) 105 mg/dL 70-105 (test nvdy=477) CALCIUM (BEAKER) (test 9.2 mg/dL 8.4-10.2 lyyr=031) EGFR (BEAKER) (test 67 mL/min/1.73 sq m ESTIMATED GFR IS NOT wqik=1776) ACCURATE CREATININE CLEARANCE IN PREDICTING GLOMERULAR FILTRATION RATE. ESTIMATED GFR IS NOT APPLICABLE FOR DIALYSIS PATIENTS. HEPATIC FUNCTION [id number] 06:38:00 Test Item Value Reference Range Comments TOTAL PROTEIN (BEAKER) (test 6.9 gm/dL 6.0-8.3 Specimen slightly hemolyzed gpsg=341) ALBUMIN (BEAKER) (test 3.4 g/dL 3.5-5.0 Specimen slightly hemolyzed prwx=5346) BILIRUBIN TOTAL (BEAKER) (test 0.8 mg/dL 0.2-1.2 Specimen slightly hemolyzed xpgc=494) BILIRUBIN DIRECT (BEAKER) (test 0.3 mg/dL 0.1-0.5 Specimen slightly hemolyzed thjn=659) ALKALINE PHOSPHATASE (BEAKER) 33 U/L 40-150 (test ixnd=250) AST (SGOT) (BEAKER) (test 32 U/L 5-34 Specimen slightly hemolyzed mvin=546) ALT (SGPT) (BEAKER) (test 17 U/L 6-55 Specimen slightly hemolyzed ymtz=294) [id number] 06:38:00 Test Item Value Reference Range Comments LIPASE (BEAKER) (test mxzz=104) 122 U/L 8-78 POCT-GLUCOSE [id number] 21:48:00 Test Item Value Reference Range Comments POC-GLUCOSE METER (BEAKER) 102 mg/dL 70-110 TESTED AT [address] (test lcih=9638) [facility] [address] POCT-GLUCOSE [id number] 17:46:00 Test Item Value Reference Range Comments POC-GLUCOSE METER (BEAKER) 145 mg/dL 70-110 TESTED AT [address] (test ebzc=3176) [facility] [address] POCT-GLUCOSE [id number] 12:35:00 Test Item Value Reference Range Comments POC-GLUCOSE METER (BEAKER) 158 mg/dL 70-110 TESTED AT [address] (test yepi=1128) [place] [address] POCT-GLUCOSE [id number] 07:47:00 Test Item Value Reference Range Comments POC-GLUCOSE METER (BEAKER) 119 mg/dL 70-110 TESTED AT [facility] [address] (test qzpf=6655) [facility] [address] [id number] 06:40:00 Test Item Value Reference Range Comments LIPASE (BEAKER) (test rder=172) 165 U/L 8-78 BASIC METABOLIC [id number] 06:40:00 Test Item Value Reference Range Comments SODIUM (BEAKER) (test 140 meq/L 136-145 zdbn=447) POTASSIUM (BEAKER) (test 4.0 meq/L 3.5-5.1 Specimen slightly brbf=647) hemolyzed CHLORIDE (BEAKER) (test 102 meq/L 98-107 usev=190) CO2 (BEAKER) (test 29 meq/L 22-29 elwc=840) BLOOD UREA NITROGEN 29 mg/dL 7-21 (BEAKER) (test gles=081) CREATININE (BEAKER) (test 0.84 mg/dL 0.57-1.25 Specimen slightly nhfd=508) hemolyzed GLUCOSE RANDOM (BEAKER) 101 mg/dL 70-105 (test wwpx=022) CALCIUM (BEAKER) (test 8.9 mg/dL 8.4-10.2 itgg=734) EGFR (BEAKER) (test 65 mL/min/1.73 sq m ESTIMATED GFR IS NOT ibfj=3290) ACCURATE CREATININE CLEARANCE IN PREDICTING GLOMERULAR FILTRATION RATE. ESTIMATED GFR IS NOT APPLICABLE FOR DIALYSIS PATIENTS. HEPATIC FUNCTION [id number] 06:40:00 Test Item Value Reference Range Comments TOTAL PROTEIN (BEAKER) (test 6.6 gm/dL 6.0-8.3 Specimen slightly hemolyzed dkdn=781) ALBUMIN (BEAKER) (test 3.3 g/dL 3.5-5.0 Specimen slightly hemolyzed mpqn=1191) BILIRUBIN TOTAL (BEAKER) (test 1.3 mg/dL 0.2-1.2 Specimen slightly hemolyzed pvvi=786) BILIRUBIN DIRECT (BEAKER) (test 0.6 mg/dL 0.1-0.5 Specimen slightly hemolyzed tjma=026) ALKALINE PHOSPHATASE (BEAKER) 31 U/L 40-150 (test ksap=053) AST (SGOT) (BEAKER) (test 34 U/L 5-34 Specimen slightly hemolyzed fscm=918) ALT (SGPT) (BEAKER) (test 16 U/L 6-55 Specimen slightly hemolyzed bgat=673) CBC W/PLT COUNT & AUTO [id number] 05:57:00 Test Item Value Reference Range Comments WHITE BLOOD CELL COUNT (BEAKER) (test foxr=543) 13.5 K/ L 3.5-10.5 RED BLOOD CELL COUNT (BEAKER) (test aayy=489) 5.03 M/ L 3.93-5.22 HEMOGLOBIN (BEAKER) (test uqwx=546) 15.0 GM/DL 11.2-15.7 HEMATOCRIT (BEAKER) (test rsia=071) 49.7 % 34.1-44.9 MEAN CORPUSCULAR VOLUME (BEAKER) (test vuwf=410) 98.8 fL 79.4-94.8 MEAN CORPUSCULAR HEMOGLOBIN (BEAKER) (test 29.8 pg 25.6-32.2 kqar=851) MEAN CORPUSCULAR HEMOGLOBIN CONC (BEAKER) (test 30.2 GM/DL 32.2-35.5 ahfj=933) RED CELL DISTRIBUTION WIDTH (BEAKER) (test 13.3 % 11.7-14.4 bxrc=402) PLATELET COUNT (BEAKER) (test cwyr=060) 184 K/CU MM 150-450 MEAN PLATELET VOLUME (BEAKER) (test evgj=869) 12.0 fL 9.4-12.3 NUCLEATED RED BLOOD CELLS (BEAKER) (test 0 /100 WBC 0-0 fawi=072) NEUTROPHILS RELATIVE PERCENT (BEAKER) (test 84 % djte=310) LYMPHOCYTES RELATIVE PERCENT (BEAKER) (test 7 % prdh=071) MONOCYTES RELATIVE PERCENT (BEAKER) (test 6 % fqcg=229) EOSINOPHILS RELATIVE PERCENT (BEAKER) (test 1 % aziy=388) BASOPHILS RELATIVE PERCENT (BEAKER) (test 1 % vpvs=782) NEUTROPHILS ABSOLUTE COUNT (BEAKER) (test 11.36 K/ L 1.56-6.13 alih=243) LYMPHOCYTES ABSOLUTE COUNT (BEAKER) (test 0.91 K/ L 1.18-3.74 dfgk=691) MONOCYTES ABSOLUTE COUNT (BEAKER) (test 0.87 K/ L 0.24-0.36 oojp=717) EOSINOPHILS ABSOLUTE COUNT (BEAKER) (test 0.19 K/ L 0.04-0.36 knaf=232) BASOPHILS ABSOLUTE COUNT (BEAKER) (test 0.07 K/ L 0.01-0.08 gvys=673) IMMATURE GRANULOCYTES-RELATIVE PERCENT (BEAKER) 1 % 0-1 (test vmkb=6003) POCT-GLUCOSE [id number] 21:35:00 Test Item Value Reference Range Comments POC-GLUCOSE METER (BEAKER) 160 mg/dL 70-110 TESTED AT [address] (test zxnp=8672) [place] [id number] POCT-GLUCOSE [id number] 18:42:00 Test Item Value Reference Range Comments POC-GLUCOSE METER (BEAKER) 119 mg/dL 70-110 TESTED AT [address] (test sdaa=9390) [place] [address] POCT-GLUCOSE [id number] 14:33:00 Test Item Value Reference Range Comments POC-GLUCOSE METER (BEAKER) 80 mg/dL 70-110 TESTED AT [address] (test kaxk=6863) [place] [address] POCT-GLUCOSE [id number] 12:29:00 Test Item Value Reference Range Comments POC-GLUCOSE METER (BEAKER) 81 mg/dL 70-110 TESTED AT [address] (test nmnw=3920) [facility] [address] RAD, CHEST, 1 VIEW, NON [id number] 09:58:00Reason for exam:->copdShould this be performed at the bedside?->YesFINAL REPORT RAD , CHEST, 1 VIEW, NON DEPT INDICATION: copd COMPARISON: March 21, 2018 FINDINGS: Portable frontal view of the chest. IMPRESSION: Support Lines: None. Lungs and pleura: Clear lungs. No pneumothorax.Heart and mediastinum: Stable contours. Stable pacer apparatus.Additional findings: None. Signed: JR Jerome Robert MDReport Verified Date/Time: 06/14/2019 09:58:25 Reading Location : [address] Neuro Reading Room HEMOGLOBIN [id number] 09:20:00 Test Item Value Reference Range Comments HEMOGLOBIN A1C (BEAKER) (test rtsz=005) 7.1 % 4.3-6.1 LIPID [id number] 06:36:00 Test Item Value Reference Range Comments TRIGLYCERIDES (BEAKER) (test qqow=303) 59 mg/dL CHOLESTEROL (BEAKER) (test xxgb=215) 134 mg/dL HDL CHOLESTEROL (BEAKER) (test frzg=620) 50 mg/dL LDL CHOLESTEROL CALCULATED (BEAKER) (test 72 mg/dL nnxk=596) Triglyceride Reference Range: Low Risk <150 Borderline 150- 199 High Risk 200-499 Very High Risk >=500Cholesterol Reference Range: Low Risk <200 Borderline 200-239 High Risk > 240HDL Cholesterol Reference Range: Low Risk >=60 High Risk <40LDL Cholesterol Reference Range: Optimal <100 Near Optimal 100-129 Borderline 130-159 High 160-189 Very High >=190BASIC METABOLIC [id number] 06:36:00 Test Item Value Reference Range Comments SODIUM (BEAKER) (test 144 meq/L 136-145 ckca=520) POTASSIUM (BEAKER) (test 3.9 meq/L 3.5-5.1 dlpp=948) CHLORIDE (BEAKER) (test 105 meq/L 98-107 sxvu=116) CO2 (BEAKER) (test 26 meq/L 22-29 vtcl=258) BLOOD UREA NITROGEN 24 mg/dL 7-21 (BEAKER) (test wezt=985) CREATININE (BEAKER) (test 0.85 mg/dL 0.57-1.25 acef=282) GLUCOSE RANDOM (BEAKER) 68 mg/dL 70-105 (test bycb=696) CALCIUM (BEAKER) (test 9.0 mg/dL 8.4-10.2 rdff=362) EGFR (BEAKER) (test 64 mL/min/1.73 sq m ESTIMATED GFR IS NOT fyya=9169) ACCURATE CREATININE CLEARANCE IN PREDICTING GLOMERULAR FILTRATION RATE. ESTIMATED GFR IS NOT APPLICABLE FOR DIALYSIS PATIENTS. HEPATIC FUNCTION [id number] 06:36:00 Test Item Value Reference Range Comments TOTAL PROTEIN (BEAKER) (test npnm=632) 7.0 gm/dL 6.0-8.3 ALBUMIN (BEAKER) (test dgwu=6144) 3.6 g/dL 3.5-5.0 BILIRUBIN TOTAL (BEAKER) (test svlr=866) 1.2 mg/dL 0.2-1.2 BILIRUBIN DIRECT (BEAKER) (test cfyc=432) 0.6 mg/dL 0.1-0.5 ALKALINE PHOSPHATASE (BEAKER) (test rwsp=828) 31 U/L 40-150 AST (SGOT) (BEAKER) (test icml=243) 33 U/L 5-34 ALT (SGPT) (BEAKER) (test woxd=452) 19 U/L 6-55 [id number] 06:36:00 Test Item Value Reference Range Comments AMYLASE (BEAKER) (test wabi=038) 368 U/L 25-125 [id number] 06:36:00 Test Item Value Reference Range Comments LIPASE (BEAKER) (test kska=268) 451 U/L 8-78 POCT-GLUCOSE [id number] 06:34:00 Test Item Value Reference Range Comments POC-GLUCOSE METER (BEAKER) 73 mg/dL 70-110 TESTED AT [facility] [address] [facility] (test ftbb=6880) [facility] [address] B-TYPE NATRIURETIC FACTOR (BNP)2019-06-14 06:32:00 Test Item Value Reference Range Comments B-TYPE NATRIURETIC PEPTIDE (BEAKER) (test 376 pg/mL 0-100 hibh=932) CBC W/PLT COUNT & AUTO [id number] 06:23:00 Test Item Value Reference Range Comments WHITE BLOOD CELL COUNT (BEAKER) (test nmzx=789) 12.9 K/ L 3.5-10.5 RED BLOOD CELL COUNT (BEAKER) (test kgmv=463) 5.60 M/ L 3.93-5.22 HEMOGLOBIN (BEAKER) (test njwe=269) 16.7 GM/DL 11.2-15.7 HEMATOCRIT (BEAKER) (test rmpm=182) 55.2 % 34.1-44.9 MEAN CORPUSCULAR VOLUME (BEAKER) (test hgsp=713) 98.6 fL 79.4-94.8 MEAN CORPUSCULAR HEMOGLOBIN (BEAKER) (test 29.8 pg 25.6-32.2 uosv=186) MEAN CORPUSCULAR HEMOGLOBIN CONC (BEAKER) (test 30.3 GM/DL 32.2-35.5 lijk=947) RED CELL DISTRIBUTION WIDTH (BEAKER) (test 13.3 % 11.7-14.4 mlne=399) PLATELET COUNT (BEAKER) (test zsmy=090) 190 K/CU MM 150-450 MEAN PLATELET VOLUME (BEAKER) (test scvt=252) 11.6 fL 9.4-12.3 NUCLEATED RED BLOOD CELLS (BEAKER) (test 0 /100 WBC 0-0 xvyf=804) NEUTROPHILS RELATIVE PERCENT (BEAKER) (test 88 % vdhr=514) LYMPHOCYTES RELATIVE PERCENT (BEAKER) (test 6 % kjew=542) MONOCYTES RELATIVE PERCENT (BEAKER) (test 4 % eoit=928) EOSINOPHILS RELATIVE PERCENT (BEAKER) (test 0 % bxns=067) BASOPHILS RELATIVE PERCENT (BEAKER) (test 1 % liwr=279) NEUTROPHILS ABSOLUTE COUNT (BEAKER) (test 11.32 K/ L 1.56-6.13 tkiz=821) LYMPHOCYTES ABSOLUTE COUNT (BEAKER) (test 0.81 K/ L 1.18-3.74 oesr=895) MONOCYTES ABSOLUTE COUNT (BEAKER) (test 0.51 K/ L 0.24-0.36 mbgk=028) EOSINOPHILS ABSOLUTE COUNT (BEAKER) (test 0.04 K/ L 0.04-0.36 fvmu=665) BASOPHILS ABSOLUTE COUNT (BEAKER) (test 0.07 K/ L 0.01-0.08 hglk=170) IMMATURE GRANULOCYTES-RELATIVE PERCENT (BEAKER) 1 % 0-1 (test lpvk=9647) PROTHROMBIN [id number] 06:21:00 Test Item Value Reference Range Comments PROTIME (BEAKER) (test yhxy=949) 13.6 seconds 11.9-14.2 INR (BEAKER) (test qdft=181) 1.1 <=5.9 Effective 03/05/2019: PT Reference Range ChangeNew: 11.9-14.2 Previous: 11.7- 14.7RECOMMENDED COUMADIN/WARFARIN INR THERAPY RANGESSTANDARD DOSE: 2.0-3.0 Includes: PROPHYLAXIS for venous thrombosis, systemic embolization; TREATMENT for venous thrombosis and/or pulmonary embolus.HIGH RISK: Target INR is2.5-3.5 for patients wiht mechanical heart valves.POCT-GLUCOSE [id number] 00:39:00 Test Item Value Reference Range Comments POC-GLUCOSE METER (BEAKER) 72 mg/dL 70-110 TESTED AT [address] (test puim=8217) [place] [address] POCT-LACTIC ACID, [id number] 00:00:00 Test Item Value Reference Range Comments POC-LACTIC ACID, ARTERIAL 0.7 mmol/L 0.4-1.3 TESTED AT [address] (BEAKER) (test ncou=6467) [place] [address] POCT-BLOOD GASES, [id number] 00:00:00 Test Item Value Reference Range Comments TEMP, CELSIUS-POC (BEAKER) 37.4 (test gxia=2738) FIO2-POC (BEAKER) (test 28 TESTED AT [address] gysb=9696) [place] [address] PH, ARTERIAL-POC (BEAKER) 7.376 7.350-7.450 (test mhkx=9260) PCO2, ARTERIAL-POC (BEAKER) 56.3 mm Hg 35.0-45.0 (test uqea=6215) PO2, ARTERIAL-POC (BEAKER) 62.0 mm Hg 80.0-90.0 (test twvw=5007) SO2, ARTERIAL-POC (BEAKER) 90.0 % 96.0-97.0 (test uvhz=5602) HCO3, ARTERIAL-POC (BEAKER) 32.8 meq/L 21.0-29.0 (test uswb=5469) BASE EXCESS, ARTERIAL-POC 8.0 meq/L -2.0-3.0 (BEAKER) (test gegn=2068) [id number] 00:00:00 Test Item Value Reference Range Comments POC-SODIUM (BEAKER) (test 142 meq/L 135-148 TESTED AT [address] hopo=4125) [place] [address] [id number] 00:00:00 Test Item Value Reference Range Comments POC-POTASSIUM (BEAKER) (test 3.5 meq/L 3.6-5.5 TESTED AT [address] ylci=1092) [place] [address] [id number] 00:00:00 Test Item Value Reference Range Comments POC-GLUCOSE (BEAKER) (test 80 mg/dL 70-110 TESTED AT [address] jtry=5119) [place] [id number] POCT-CALCIUM [id number] 00:00:00 Test Item Value Reference Range Comments POC-CALCIUM IONIZED (BEAKER) 1.17 mmol/L 1.12-1.27 TESTED AT [address] (test qitd=9111) [place] [id number] 00:00:00 Test Item Value Reference Range Comments POC-HEMATOCRIT (BEAKER) (test 50 % 36-45 TESTED AT [address] seuu=5999) [place] [id number] 00:00:00 Test Item Value Reference Range Comments POC-HEMOGLOBIN (BEAKER) 17.0 g/dL 12.0-15.0 TESTED AT [address] (test cilr=7512) [place] [id number] AT [place] [id number] POCT-GLUCOSE [id number] 20:48:00 Test Item Value Reference Range Comments POC-GLUCOSE METER (BEAKER) 80 mg/dL 70-110 TESTED AT [address] (test fywo=0343) [place] [id number] AFB CULTURE + [id number] 00:11:00 Test Item Value Reference Range Comments CULTURE (BEAKER) (test No acid-fast bacilli isolated zakr=8938) in 42 days AFB SMEAR (BEAKER) (test No acid fast bacilli seen bqay=051) FUNGUS CULTURE + [id number] 17:08:00 Test Item Value Reference Range Comments CULTURE (BEAKER) (test No fungus isolated in 28 days dajp=6369) FUNGUS SMEAR (BEAKER) (test No fungi seen ryaf=1780) AFB CULTURE + [id number] 02:56:00 Test Item Value Reference Range Comments CULTURE (BEAKER) (test No acid-fast bacilli isolated larc=8417) in 42 days AFB SMEAR (BEAKER) (test No acid fast bacilli seen hxup=205) ANAEROBIC [id number] 17:45:00 Test Item Value Reference Range Comments CULTURE (BEAKER) (test rlsk=1863) No anaerobes isolated BLOOD [id number] 17:43:00 Test Item Value Reference Range Comments CULTURE (BEAKER) (test xold=1925) No growth in 5 days BLOOD [id number] 17:43:00 Test Item Value Reference Range Comments CULTURE (BEAKER) (test qheq=0609) No growth in 5 days POCT-GLUCOSE [id number] 12:38:00 Test Item Value Reference Range Comments POC-GLUCOSE METER (BEAKER) 147 mg/dL 70-110 TESTED AT [facility] [address] [facility] (test wahb=9948) [facility] [address] WOUND CULTURE + GRAM [id number] 10:46:00 Test Item Value Reference Range Comments CULTURE (BEAKER) (test PSEUDOMONAS 4+ Pseudomonas ydjl=2606) AERUGINOSA aeruginosa Amikacin (test code=1) Susceptible 0-16 , Resistant <0 or >16 Aztreonam (test Susceptible 0-8 , code=32) Resistant <0 or >8 Cefepime (test code=51) Susceptible 0-8 , Resistant <0 or >8 Ceftazidime (test Susceptible 0-8 , code=27) Resistant <0 or >8 Ciprofloxacin (test Susceptible 0-1 , code=7) Resistant <0 or >1 Doripenem (test Susceptible 0-2 , xleo=472) Resistant <0 or >2 Gentamicin (test Susceptible [...] >4 CULTURE (BEAKER) (test PSEUDOMONAS 4+ Pseudomonas rizt=5774) AERUGINOSA aeruginosaof a second type Amikacin (test code=1) Susceptible 0-16 , Resistant <0 or >16 Aztreonam (test Susceptible 0-8 , code=32) Resistant <0 or >8 Cefepime (test code=51) Susceptible 0-8 , Resistant <0 or >8 Ceftazidime (test Susceptible 0-8 , code=27) Resistant <0 or >8 Ciprofloxacin (test Susceptible 0-1 , code=7) Resistant <0 or >1 Doripenem (test Susceptible 0-2 , dtzf=299) Resistant <0 or >2 Gentamicin (test Susceptible [...] CULTURE (BEAKER) (test KLEBSIELLA PNEUMONIAE <1+ Klebsiella uetc=9512) pneumoniae Amikacin (test code=1) Ampicillin + Sulbactam (test code=6) Aztreonam (test code=32) Cefepime (test code=51) Cefoxitin (test code=68) Ceftazidime (test code=27) Ceftriaxone (test code=52) Ertapenem (test code=38) Gentamicin (test code=18) Levofloxacin (test code=22) Meropenem (test code=34) Nitrofurantoin (test code=23) Piperacillin + Tazobactam (test code=29) Tetracycline (test code=2) Tobramycin (test code=25) Trimethoprim + Sulfamethoxazole (test code=47) CULTURE (BEAKER) (test COAGULASE NEGATIVE 1+ Coagulase negative amax=5391) STAPHYLOCOCCUS Staphylococcus Clindamycin (test code=10) Erythromycin (test code=4) Levofloxacin (test code=22) Linezolid (test code=40) Nitrofurantoin (test code=23) Oxacillin (test code=14) Rifampin (test code=43) Tetracycline (test code=2) Trimethoprim + Sulfamethoxazole (test code=47) Vancomycin (test Susceptible 0-4 , code=13) Resistant <0 or >4 CULTURE (BEAKER) (test PSEUDOMONAS 4+ Pseudomonas viio=1167) AERUGINOSA aeruginosaof a third type Amikacin (test code=1) Susceptible 0-16 , Resistant <0 or >16 Aztreonam (test Susceptible 0-8 , code=32) Resistant <0 or >8 Cefepime (test code=51) Susceptible 0-8 , Resistant <0 or >8 Ceftazidime (test Susceptible 0-8 , code=27) Resistant <0 or >8 Ciprofloxacin (test Susceptible 0-1 , code=7) Resistant <0 or >1 Doripenem (test Susceptible 0-2 , eqbo=979) Resistant <0 or >2 Gentamicin (test Susceptible [...] >4 CULTURE (BEAKER) (test <1+ Coagulase negative onji=2687) Staphylococcusof a second type GRAM STAIN RESULT <1+ WBCs (BEAKER) (test lhus=0222) GRAM STAIN RESULT <1+ gram negative (BEAKER) (test rods noxd=051777) SURGICALLY OBTAINED CULTURE + GRAM [id number] 08:30:00 Test Item Value Reference Range Comments CULTURE (BEAKER) (test gbon=1883) No growth GRAM STAIN RESULT (BEAKER) (test No WBCs plei=1295) GRAM STAIN RESULT (BEAKER) (test No organisms seen iycv=31585) POCT-GLUCOSE [id number] 07:23:00 Test Item Value Reference Range Comments POC-GLUCOSE METER (BEAKER) 97 mg/dL 70-110 TESTED AT [facility] [address] (test qzch=4506) [facility] [address] POCT-GLUCOSE [id number] 22:04:00 Test Item Value Reference Range Comments POC-GLUCOSE METER (BEAKER) 177 mg/dL 70-110 TESTED AT [address] (test nwwd=2288) [facility] [address] POCT-GLUCOSE [id number] 17:38:00 Test Item Value Reference Range Comments POC-GLUCOSE METER (BEAKER) 232 mg/dL 70-110 TESTED AT [address] (test vgut=0098) [facility] [address] POCT-GLUCOSE [id number] 12:40:00 Test Item Value Reference Range Comments POC-GLUCOSE METER (BEAKER) 139 mg/dL 70-110 TESTED AT [address] (test odyi=8127) [facility] [address] POCT-GLUCOSE [id number] 07:47:00 Test Item Value Reference Range Comments POC-GLUCOSE METER (BEAKER) 96 mg/dL 70-110 TESTED AT [address] (test rguf=4608) [place] [address] POCT-GLUCOSE [id number] 04:52:00 Test Item Value Reference Range Comments POC-GLUCOSE METER (BEAKER) 112 mg/dL 70-110 TESTED AT [address] (test ytwm=7017) [facility] [address] POCT-GLUCOSE [id number] 23:28:00 Test Item Value Reference Range Comments POC-GLUCOSE METER (BEAKER) 114 mg/dL 70-110 TESTED AT [address] (test thtz=9142) [facility] [address] POCT-GLUCOSE [id number] 17:12:00 Test Item Value Reference Range Comments POC-GLUCOSE METER (BEAKER) 155 mg/dL 70-110 TESTED AT [address] (test rfty=8448) [place] [id number] POCT-GLUCOSE [id number] 12:17:00 Test Item Value Reference Range Comments POC-GLUCOSE METER (BEAKER) 163 mg/dL 70-110 TESTED AT [address] (test vnmg=3104) [place] [address] FUNGUS CULTURE + [id number] 09:29:00 Test Item Value Reference Range Comments CULTURE (BEAKER) (test No fungus isolated in 28 days oari=6890) FUNGUS SMEAR (BEAKER) (test <1+ hyphal elements seen bjzi=0860) See smear results.POCT-GLUCOSE [id number] 21:47:00 Test Item Value Reference Range Comments POC-GLUCOSE METER (BEAKER) 211 mg/dL 70-110 TESTED AT [facility] [address] [facility] (test grsp=3928) [facility] [address] POCT-GLUCOSE [id number] 17:07:00 Test Item Value Reference Range Comments POC-GLUCOSE METER (BEAKER) 160 mg/dL 70-110 TESTED AT [facility] [address] [facility] (test llmm=2299) [facility] [address] POCT-GLUCOSE [id number] 11:56:00 Test Item Value Reference Range Comments POC-GLUCOSE METER (BEAKER) 108 mg/dL 70-110 TESTED AT [place] [id number] [facility] (test httc=0462) [facility] [address] COMPREHENSIVE METABOLIC [id number] 23:00:00 Test Item Value Reference Range Comments TOTAL PROTEIN (BEAKER) 7.5 gm/dL 6.0-8.3 (test vlai=672) ALBUMIN (BEAKER) (test 3.8 g/dL 3.5-5.0 rlke=2856) ALKALINE PHOSPHATASE 53 U/L 40-150 (BEAKER) (test rpkv=844) BILIRUBIN TOTAL (BEAKER) 0.3 mg/dL 0.2-1.2 (test zvja=339) SODIUM (BEAKER) (test 138 meq/L 136-145 wjqc=668) POTASSIUM (BEAKER) (test 3.9 meq/L 3.5-5.1 oqmv=642) CHLORIDE (BEAKER) (test 101 meq/L 98-107 jslc=380) CO2 (BEAKER) (test 28 meq/L 22-29 zrxp=247) BLOOD UREA NITROGEN 22 mg/dL 7-21 (BEAKER) (test fdat=317) CREATININE (BEAKER) (test 0.98 mg/dL 0.57-1.25 ltet=985) GLUCOSE RANDOM (BEAKER) 154 mg/dL 70-105 (test bsjm=636) CALCIUM (BEAKER) (test 10.1 mg/dL 8.4-10.2 nrxj=093) AST (SGOT) (BEAKER) (test 20 U/L 5-34 ruoh=681) ALT (SGPT) (BEAKER) (test 12 U/L 6-55 ydjw=436) EGFR (BEAKER) (test 54 mL/min/1.73 sq m ESTIMATED GFR IS NOT nbmh=8093) ACCURATE CREATININE CLEARANCE IN PREDICTING GLOMERULAR FILTRATION RATE. ESTIMATED GFR IS NOT APPLICABLE FOR DIALYSIS PATIENTS. PROTHROMBIN [id number] 22:52:00 Test Item Value Reference Range Comments PROTIME (BEAKER) (test bhee=525) 14.0 seconds 11.7-14.7 INR (BEAKER) (test mvmv=735) 1.1 <=5.9 RECOMMENDED COUMADIN/WARFARIN INR THERAPY RANGESSTANDARD DOSE: 2.0 - 3.0 Includes: PROPHYLAXIS forvenous thrombosis, systemic embolization; TREATMENT for venous thrombosis and/or pulmonary embolus.HIGH RISK: Target INR is 2.5-3.5 for patients with mechanical heart valves.CBC W/PLT COUNT & AUTO [id number] 22:51:00 Test Item Value Reference Range Comments WHITE BLOOD CELL COUNT (BEAKER) (test ppmd=673) 8.7 K/ L 3.5-10.5 RED BLOOD CELL COUNT (BEAKER) (test veay=884) 4.77 M/ L 3.93-5.22 HEMOGLOBIN (BEAKER) (test omnu=925) 13.6 GM/DL 11.2-15.7 HEMATOCRIT (BEAKER) (test reig=643) 45.4 % 34.1-44.9 MEAN CORPUSCULAR VOLUME (BEAKER) (test dcqb=724) 95.2 fL 79.4-94.8 MEAN CORPUSCULAR HEMOGLOBIN (BEAKER) (test 28.5 pg 25.6-32.2 wlbn=055) MEAN CORPUSCULAR HEMOGLOBIN CONC (BEAKER) (test 30.0 GM/DL 32.2-35.5 kwyg=989) RED CELL DISTRIBUTION WIDTH (BEAKER) (test 15.2 % 11.7-14.4 rncz=755) PLATELET COUNT (BEAKER) (test rduc=510) 267 K/CU MM 150-450 MEAN PLATELET VOLUME (BEAKER) (test hbkn=688) 11.2 fL 9.4-12.3 NUCLEATED RED BLOOD CELLS (BEAKER) (test 0 /100 WBC 0-0 wyms=767) NEUTROPHILS RELATIVE PERCENT (BEAKER) (test 73 % ktip=974) LYMPHOCYTES RELATIVE PERCENT (BEAKER) (test 16 % nbyl=362) MONOCYTES RELATIVE PERCENT (BEAKER) (test 8 % zqbg=253) EOSINOPHILS RELATIVE PERCENT (BEAKER) (test 1 % ekzf=017) BASOPHILS RELATIVE PERCENT (BEAKER) (test 1 % kuma=733) NEUTROPHILS ABSOLUTE COUNT (BEAKER) (test 6.38 K/ L 1.56-6.13 dvte=206) LYMPHOCYTES ABSOLUTE COUNT (BEAKER) (test 1.37 K/ L 1.18-3.74 poin=338) MONOCYTES ABSOLUTE COUNT (BEAKER) (test 0.73 K/ L 0.24-0.36 ynka=578) EOSINOPHILS ABSOLUTE COUNT (BEAKER) (test 0.12 K/ L 0.04-0.36 pzgc=942) BASOPHILS ABSOLUTE COUNT (BEAKER) (test 0.08 K/ L 0.01-0.08 dtqe=493) IMMATURE GRANULOCYTES-RELATIVE PERCENT (BEAKER) 1 % 0-1 (test brbf=5360) POCT-GLUCOSE [id number] 22:47:00 Test Item Value Reference Range Comments POC-GLUCOSE METER (BEAKER) 196 mg/dL 70-110 TESTED AT [address] (test tbfl=6606) [place] [address] POCT-GLUCOSE [id number] 17:34:00 Test Item Value Reference Range Comments POC-GLUCOSE METER (BEAKER) 261 mg/dL 70-110 TESTED AT [address] (test mkiy=0985) [place] [address] POCT-GLUCOSE [id number] 16:52:00 Test Item Value Reference Range Comments POC-GLUCOSE METER (BEAKER) 254 mg/dL 70-110 TESTED AT [address] (test epve=1387) [place] [address] POCT-GLUCOSE [id number] 12:24:00 Test Item Value Reference Range Comments POC-GLUCOSE METER (BEAKER) 168 mg/dL 70-110 TESTED AT [address] (test mpus=9626) [place] [address] POCT-GLUCOSE [id number] 08:52:00 Test Item Value Reference Range Comments POC-GLUCOSE METER (BEAKER) 139 mg/dL 70-110 TESTED AT [address] (test ekdk=9148) [place] [address] CT, [id number] 08:32:00S/p aortic-bilateral femoral bypass with right groin [...] MDReport Verified Date/Time: 04/21/2018 08:32:26 Reading Location: [address] Consult Reading Room 08: 32 AMPOCT-GLUCOSE [id number] 21:51:00 Test Item Value Reference Range Comments POC-GLUCOSE METER (BEAKER) 132 mg/dL 70-110 TESTED AT [address] (test muco=6454) [place] [address] POCT-GLUCOSE [id number] 16:54:00 Test Item Value Reference Range Comments POC-GLUCOSE METER (BEAKER) 126 mg/dL 70-110 TESTED AT [address] (test mnfv=8468) [facility] [address] POCT-GLUCOSE [id number] 12:41:00 Test Item Value Reference Range Comments POC-GLUCOSE METER (BEAKER) 163 mg/dL 70-110 TESTED AT [address] (test cjsz=4193) [place] [address] POCT-GLUCOSE [id number] 07:37:00 Test Item Value Reference Range Comments POC-GLUCOSE METER (BEAKER) 96 mg/dL 70-110 TESTED AT [address] (test diuh=2046) [facility] [address] BASIC METABOLIC [id number] 06:21:00 Test Item Value Reference Range Comments SODIUM (BEAKER) (test 142 meq/L 136-145 tgfm=492) POTASSIUM (BEAKER) (test 3.7 meq/L 3.5-5.1 mwzn=851) CHLORIDE (BEAKER) (test 102 meq/L 98-107 oxup=761) CO2 (BEAKER) (test 30 meq/L 22-29 euqq=251) BLOOD UREA NITROGEN 22 mg/dL 7-21 (BEAKER) (test mdeb=102) CREATININE (BEAKER) (test 1.05 mg/dL 0.57-1.25 xkht=979) GLUCOSE RANDOM (BEAKER) 88 mg/dL 70-105 (test kbxx=267) CALCIUM (BEAKER) (test 10.1 mg/dL 8.4-10.2 dzsl=139) EGFR (BEAKER) (test 50 mL/min/1.73 sq m ESTIMATED GFR IS NOT skpf=8108) ACCURATE CREATININE CLEARANCE IN PREDICTING GLOMERULAR FILTRATION RATE. ESTIMATED GFR IS NOT APPLICABLE FOR DIALYSIS PATIENTS. CBC W/PLT COUNT & AUTO [id number] 05:46:00 Test Item Value Reference Range Comments WHITE BLOOD CELL COUNT (BEAKER) (test valg=639) 7.0 K/ L 3.5-10.5 RED BLOOD CELL COUNT (BEAKER) (test ckjg=434) 5.52 M/ L 3.93-5.22 HEMOGLOBIN (BEAKER) (test ypib=359) 15.6 GM/DL 11.2-15.7 HEMATOCRIT (BEAKER) (test pqhl=382) 53.3 % 34.1-44.9 MEAN CORPUSCULAR VOLUME (BEAKER) (test jzng=026) 96.6 fL 79.4-94.8 MEAN CORPUSCULAR HEMOGLOBIN (BEAKER) (test 28.3 pg 25.6-32.2 ungf=762) MEAN CORPUSCULAR HEMOGLOBIN CONC (BEAKER) (test 29.3 GM/DL 32.2-35.5 oiau=392) RED CELL DISTRIBUTION WIDTH (BEAKER) (test 15.3 % 11.7-14.4 eyag=706) PLATELET COUNT (BEAKER) (test qves=639) 257 K/CU MM 150-450 MEAN PLATELET VOLUME (BEAKER) (test yjbr=359) 11.5 fL 9.4-12.3 NUCLEATED RED BLOOD CELLS (BEAKER) (test 0 /100 WBC 0-0 zrye=499) NEUTROPHILS RELATIVE PERCENT (BEAKER) (test 58 % icwb=335) LYMPHOCYTES RELATIVE PERCENT (BEAKER) (test 25 % rptr=647) MONOCYTES RELATIVE PERCENT (BEAKER) (test 9 % cxkn=313) EOSINOPHILS RELATIVE PERCENT (BEAKER) (test 5 % bvjh=235) BASOPHILS RELATIVE PERCENT (BEAKER) (test 2 % xvyp=964) NEUTROPHILS ABSOLUTE COUNT (BEAKER) (test 4.05 K/ L 1.56-6.13 gcdu=361) LYMPHOCYTES ABSOLUTE COUNT (BEAKER) (test 1.76 K/ L 1.18-3.74 wqbt=436) MONOCYTES ABSOLUTE COUNT (BEAKER) (test 0.65 K/ L 0.24-0.36 rcie=739) EOSINOPHILS ABSOLUTE COUNT (BEAKER) (test 0.33 K/ L 0.04-0.36 gwks=757) BASOPHILS ABSOLUTE COUNT (BEAKER) (test 0.12 K/ L 0.01-0.08 cyzf=536) IMMATURE GRANULOCYTES-RELATIVE PERCENT (BEAKER) 1 % 0-1 (test idad=7464) POCT-GLUCOSE [id number] 21:11:00 Test Item Value Reference Range Comments POC-GLUCOSE METER (BEAKER) 152 mg/dL 70-110 TESTED AT [address] (test idgb=0637) [place] [address] POCT-GLUCOSE [id number] 16:41:00 Test Item Value Reference Range Comments POC-GLUCOSE METER (BEAKER) 100 mg/dL 70-110 TESTED AT [address] (test mjyx=4198) [place] [address] POCT-GLUCOSE [id number] 13:05:00 Test Item Value Reference Range Comments POC-GLUCOSE METER (BEAKER) 127 mg/dL 70-110 TESTED AT [address] (test drgh=9066) [place] [address] TSH/FREE T4 IF [id number] 12:05:00 Test Item Value Reference Range Comments THYROID STIMULATING HORMONE (BEAKER) (test 2.75 uIU/mL 0.35-4.94 rhfz=760) [id number] 11:48:00 Test Item Value Reference Range Comments MAGNESIUM (BEAKER) (test juxd=856) 2.2 mg/dL 1.6-2.6 BASIC METABOLIC [id number] 11:48:00 Test Item Value Reference Range Comments SODIUM (BEAKER) (test 142 meq/L 136-145 ufuh=518) POTASSIUM (BEAKER) (test 3.7 meq/L 3.5-5.1 sjym=406) CHLORIDE (BEAKER) (test 103 meq/L 98-107 qado=827) CO2 (BEAKER) (test 30 meq/L 22-29 qqlp=692) BLOOD UREA NITROGEN 27 mg/dL 7-21 (BEAKER) (test wlio=247) CREATININE (BEAKER) (test 1.19 mg/dL 0.57-1.25 veta=125) GLUCOSE RANDOM (BEAKER) 112 mg/dL 70-105 (test yuhv=097) CALCIUM (BEAKER) (test 9.6 mg/dL 8.4-10.2 gpvh=934) EGFR (BEAKER) (test 43 mL/min/1.73 sq m ESTIMATED GFR IS NOT uoej=4983) ACCURATE CREATININE CLEARANCE IN PREDICTING GLOMERULAR FILTRATION RATE. ESTIMATED GFR IS NOT APPLICABLE FOR DIALYSIS PATIENTS. POCT-GLUCOSE [id number] 11:40:00 Test Item Value Reference Range Comments POC-GLUCOSE METER (BEAKER) 118 mg/dL 70-110 TESTED AT [facility] [address] [place] [address] (test ktpq=0875) [facility] [address] CBC W/PLT COUNT & AUTO [id number] 11:30:00 Test Item Value Reference Range Comments WHITE BLOOD CELL COUNT (BEAKER) (test svzq=288) 7.3 K/ L 3.5-10.5 RED BLOOD CELL COUNT (BEAKER) (test mmee=448) 4.68 M/ L 3.93-5.22 HEMOGLOBIN (BEAKER) (test wbqi=351) 13.4 GM/DL 11.2-15.7 HEMATOCRIT (BEAKER) (test xlpd=412) 44.7 % 34.1-44.9 MEAN CORPUSCULAR VOLUME (BEAKER) (test edva=522) 95.5 fL 79.4-94.8 MEAN CORPUSCULAR HEMOGLOBIN (BEAKER) (test 28.6 pg 25.6-32.2 xhfb=269) MEAN CORPUSCULAR HEMOGLOBIN CONC (BEAKER) (test 30.0 GM/DL 32.2-35.5 crwl=481) RED CELL DISTRIBUTION WIDTH (BEAKER) (test 15.5 % 11.7-14.4 uokz=855) PLATELET COUNT (BEAKER) (test gmrc=045) 260 K/CU MM 150-450 MEAN PLATELET VOLUME (BEAKER) (test pjln=334) 10.7 fL 9.4-12.3 NUCLEATED RED BLOOD CELLS (BEAKER) (test 0 /100 WBC 0-0 sqmn=833) NEUTROPHILS RELATIVE PERCENT (BEAKER) (test 70 % dbhg=706) LYMPHOCYTES RELATIVE PERCENT (BEAKER) (test 19 % tpko=132) MONOCYTES RELATIVE PERCENT (BEAKER) (test 8 % uvbk=272) EOSINOPHILS RELATIVE PERCENT (BEAKER) (test 2 % baiu=805) BASOPHILS RELATIVE PERCENT (BEAKER) (test 1 % hrhe=688) NEUTROPHILS ABSOLUTE COUNT (BEAKER) (test 5.11 K/ L 1.56-6.13 sdqr=130) LYMPHOCYTES ABSOLUTE COUNT (BEAKER) (test 1.37 K/ L 1.18-3.74 wdsv=287) MONOCYTES ABSOLUTE COUNT (BEAKER) (test 0.59 K/ L 0.24-0.36 zbiy=026) EOSINOPHILS ABSOLUTE COUNT (BEAKER) (test 0.17 K/ L 0.04-0.36 aadn=911) BASOPHILS ABSOLUTE COUNT (BEAKER) (test 0.07 K/ L 0.01-0.08 pkav=067) IMMATURE GRANULOCYTES-RELATIVE PERCENT (BEAKER) 0 % 0-1 (test rgun=9392) ANAEROBIC [id number] 02:34:00 Test Item Value Reference Range Comments CULTURE (BEAKER) (test cyjy=0537) No anaerobes isolated SURGICALLY OBTAINED CULTURE + GRAM [id number] 14:05:00 Test Item Value Reference Range Comments CULTURE (BEAKER) (test ellg=6006) No growth GRAM STAIN RESULT (BEAKER) (test 1+ WBCs aplc=3606) GRAM STAIN RESULT (BEAKER) (test No organisms seen rzhl=41640) POCT-GLUCOSE [id number] 12:39:00 Test Item Value Reference Range Comments POC-GLUCOSE METER (BEAKER) 131 mg/dL 70-110 TESTED AT [address] (test lwbe=9102) [facility] [address] POCT-GLUCOSE [id number] 08:01:00 Test Item Value Reference Range Comments POC-GLUCOSE METER (BEAKER) 106 mg/dL 70-110 TESTED AT [facility] [address] (test teqx=2532) [facility] [address] BASIC METABOLIC [id number] 06:21:00 Test Item Value Reference Range Comments SODIUM (BEAKER) (test 139 meq/L 136-145 jzww=446) POTASSIUM (BEAKER) (test 3.6 meq/L 3.5-5.1 aehl=648) CHLORIDE (BEAKER) (test 102 meq/L 98-107 xarq=526) CO2 (BEAKER) (test 27 meq/L 22-29 ruvi=320) BLOOD UREA NITROGEN 13 mg/dL 7-21 (BEAKER) (test uwmz=864) CREATININE (BEAKER) (test 0.70 mg/dL 0.57-1.25 xpkn=627) GLUCOSE RANDOM (BEAKER) 90 mg/dL 70-105 (test dypv=959) CALCIUM (BEAKER) (test 9.2 mg/dL 8.4-10.2 dvvk=900) EGFR (BEAKER) (test 80 mL/min/1.73 sq m ESTIMATED GFR IS NOT abfs=7619) ACCURATE CREATININE CLEARANCE IN PREDICTING GLOMERULAR FILTRATION RATE. ESTIMATED GFR IS NOT APPLICABLE FOR DIALYSIS PATIENTS. CBC W/PLT COUNT & AUTO [id number] 05:48:00 Test Item Value Reference Range Comments WHITE BLOOD CELL COUNT (BEAKER) (test cvzh=067) 9.7 K/ L 3.5-10.5 RED BLOOD CELL COUNT (BEAKER) (test terv=439) 3.69 M/ L 3.93-5.22 HEMOGLOBIN (BEAKER) (test fszo=295) 10.5 GM/DL 11.2-15.7 HEMATOCRIT (BEAKER) (test uaij=182) 35.2 % 34.1-44.9 MEAN CORPUSCULAR VOLUME (BEAKER) (test jlng=538) 95.4 fL 79.4-94.8 MEAN CORPUSCULAR HEMOGLOBIN (BEAKER) (test 28.5 pg 25.6-32.2 rosf=506) MEAN CORPUSCULAR HEMOGLOBIN CONC (BEAKER) (test 29.8 GM/DL 32.2-35.5 nrna=545) RED CELL DISTRIBUTION WIDTH (BEAKER) (test 14.6 % 11.7-14.4 qnux=665) PLATELET COUNT (BEAKER) (test gunw=708) 321 K/CU MM 150-450 MEAN PLATELET VOLUME (BEAKER) (test jyfk=992) 10.6 fL 9.4-12.3 NUCLEATED RED BLOOD CELLS (BEAKER) (test 0 /100 WBC 0-0 zxmv=579) NEUTROPHILS RELATIVE PERCENT (BEAKER) (test 73 % awgf=885) LYMPHOCYTES RELATIVE PERCENT (BEAKER) (test 15 % mkbr=582) MONOCYTES RELATIVE PERCENT (BEAKER) (test 7 % gaqn=192) EOSINOPHILS RELATIVE PERCENT (BEAKER) (test 3 % pwaj=727) BASOPHILS RELATIVE PERCENT (BEAKER) (test 1 % yzda=380) NEUTROPHILS ABSOLUTE COUNT (BEAKER) (test 7.06 K/ L 1.56-6.13 lufl=259) LYMPHOCYTES ABSOLUTE COUNT (BEAKER) (test 1.42 K/ L 1.18-3.74 dfjy=412) MONOCYTES ABSOLUTE COUNT (BEAKER) (test 0.71 K/ L 0.24-0.36 tfvg=978) EOSINOPHILS ABSOLUTE COUNT (BEAKER) (test 0.27 K/ L 0.04-0.36 qhcz=862) BASOPHILS ABSOLUTE COUNT (BEAKER) (test 0.05 K/ L 0.01-0.08 hxlt=438) IMMATURE GRANULOCYTES-RELATIVE PERCENT (BEAKER) 2 % 0-1 (test moho=6126) POCT-GLUCOSE [id number] 21:47:00 Test Item Value Reference Range Comments POC-GLUCOSE METER (BEAKER) 161 mg/dL 70-110 TESTED AT [address] (test lbau=5472) [facility] [address] POCT-GLUCOSE [id number] 17:08:00 Test Item Value Reference Range Comments POC-GLUCOSE METER (BEAKER) 189 mg/dL 70-110 TESTED AT [address] (test wnxa=7944) [facility] [address] POCT-GLUCOSE [id number] 11:12:00 Test Item Value Reference Range Comments POC-GLUCOSE METER (BEAKER) 197 mg/dL 70-110 TESTED AT [address] (test upsl=6652) [place] [id number] POCT-GLUCOSE [id number] 07:35:00 Test Item Value Reference Range Comments POC-GLUCOSE METER (BEAKER) 113 mg/dL 70-110 TESTED AT [facility] [address] [facility] (test bhrg=2906) [facility] [address] BASIC METABOLIC [id number] 06:23:00 Test Item Value Reference Range Comments SODIUM (BEAKER) (test 137 meq/L 136-145 opwi=048) POTASSIUM (BEAKER) (test 4.3 meq/L 3.5-5.1 tkfm=999) CHLORIDE (BEAKER) (test 101 meq/L 98-107 afpb=082) CO2 (BEAKER) (test 26 meq/L 22-29 brjv=346) BLOOD UREA NITROGEN 12 mg/dL 7-21 (BEAKER) (test xfca=651) CREATININE (BEAKER) (test 0.70 mg/dL 0.57-1.25 hsum=565) GLUCOSE RANDOM (BEAKER) 91 mg/dL 70-105 (test uqyj=137) CALCIUM (BEAKER) (test 9.3 mg/dL 8.4-10.2 nyvg=853) EGFR (BEAKER) (test 80 mL/min/1.73 sq m ESTIMATED GFR IS NOT sabv=3662) ACCURATE CREATININE CLEARANCE IN PREDICTING GLOMERULAR FILTRATION RATE. ESTIMATED GFR IS NOT APPLICABLE FOR DIALYSIS PATIENTS. CBC W/PLT COUNT & AUTO [id number] 06:12:00 Test Item Value Reference Range Comments WHITE BLOOD CELL COUNT (BEAKER) (test povq=689) 11.9 K/ L 3.5-10.5 RED BLOOD CELL COUNT (BEAKER) (test dvrz=470) 3.65 M/ L 3.93-5.22 HEMOGLOBIN (BEAKER) (test dwdt=889) 10.7 GM/DL 11.2-15.7 HEMATOCRIT (BEAKER) (test rpjj=610) 35.3 % 34.1-44.9 MEAN CORPUSCULAR VOLUME (BEAKER) (test xcvb=894) 96.7 fL 79.4-94.8 MEAN CORPUSCULAR HEMOGLOBIN (BEAKER) (test 29.3 pg 25.6-32.2 anuz=939) MEAN CORPUSCULAR HEMOGLOBIN CONC (BEAKER) (test 30.3 GM/DL 32.2-35.5 omda=244) RED CELL DISTRIBUTION WIDTH (BEAKER) (test 14.6 % 11.7-14.4 iszh=258) PLATELET COUNT (BEAKER) (test xckp=127) 277 K/CU MM 150-450 MEAN PLATELET VOLUME (BEAKER) (test rejj=451) 10.8 fL 9.4-12.3 NUCLEATED RED BLOOD CELLS (BEAKER) (test 0 /100 WBC 0-0 ixhp=339) NEUTROPHILS RELATIVE PERCENT (BEAKER) (test 77 % ypck=121) LYMPHOCYTES RELATIVE PERCENT (BEAKER) (test 10 % bflo=605) MONOCYTES RELATIVE PERCENT (BEAKER) (test 7 % eftp=241) EOSINOPHILS RELATIVE PERCENT (BEAKER) (test 2 % qjoj=311) BASOPHILS RELATIVE PERCENT (BEAKER) (test 1 % kyuo=396) NEUTROPHILS ABSOLUTE COUNT (BEAKER) (test 9.13 K/ L 1.56-6.13 agzv=486) LYMPHOCYTES ABSOLUTE COUNT (BEAKER) (test 1.19 K/ L 1.18-3.74 vawa=258) MONOCYTES ABSOLUTE COUNT (BEAKER) (test 0.87 K/ L 0.24-0.36 brdp=889) EOSINOPHILS ABSOLUTE COUNT (BEAKER) (test 0.26 K/ L 0.04-0.36 tihr=970) BASOPHILS ABSOLUTE COUNT (BEAKER) (test 0.06 K/ L 0.01-0.08 llqj=097) IMMATURE GRANULOCYTES-RELATIVE PERCENT (BEAKER) 3 % 0-1 (test ayoc=6333) POCT-GLUCOSE [id number] 21:04:00 Test Item Value Reference Range Comments POC-GLUCOSE METER (BEAKER) 143 mg/dL 70-110 TESTED AT [address] (test qbqj=1830) [place] [id number] POCT-GLUCOSE [id number] 17:04:00 Test Item Value Reference Range Comments POC-GLUCOSE METER (BEAKER) 182 mg/dL 70-110 TESTED AT [address] (test vqxf=2122) [facility] [address] SPIN/CONCENTRATION [id number] 15:07:00 Test Item Value Reference Range Comments CONCENTRATION CHARGED (BEAKER) (test vthk=5812) Done POCT-GLUCOSE [id number] 11:38:00 Test Item Value Reference Range Comments POC-GLUCOSE METER (BEAKER) 141 mg/dL 70-110 TESTED AT [facility] [address] [facility] (test wxnd=8479) [facility] [address] POCT-GLUCOSE [id number] 08:13:00 Test Item Value Reference Range Comments POC-GLUCOSE METER (BEAKER) 122 mg/dL 70-110 TESTED AT [facility] [address] [facility] (test blml=0546) [facility] [address] BASIC METABOLIC [id number] 05:20:00 Test Item Value Reference Range Comments SODIUM (BEAKER) (test 138 meq/L 136-145 cgde=119) POTASSIUM (BEAKER) (test 3.8 meq/L 3.5-5.1 elhr=234) CHLORIDE (BEAKER) (test 102 meq/L 98-107 yvry=773) CO2 (BEAKER) (test 28 meq/L 22-29 kibe=721) BLOOD UREA NITROGEN 12 mg/dL 7-21 (BEAKER) (test qdbr=214) CREATININE (BEAKER) (test 0.72 mg/dL 0.57-1.25 aoow=925) GLUCOSE RANDOM (BEAKER) 104 mg/dL 70-105 (test ffrv=013) CALCIUM (BEAKER) (test 8.5 mg/dL 8.4-10.2 wgcs=593) EGFR (BEAKER) (test 77 mL/min/1.73 sq m ESTIMATED GFR IS NOT ccqu=5604) ACCURATE CREATININE CLEARANCE IN PREDICTING GLOMERULAR FILTRATION RATE. ESTIMATED GFR IS NOT APPLICABLE FOR DIALYSIS PATIENTS. CBC W/PLT COUNT & AUTO [id number] 04:58:00 Test Item Value Reference Range Comments WHITE BLOOD CELL COUNT (BEAKER) (test lnec=395) 11.5 K/ L 3.5-10.5 RED BLOOD CELL COUNT (BEAKER) (test sker=278) 3.63 M/ L 3.93-5.22 HEMOGLOBIN (BEAKER) (test akub=534) 10.3 GM/DL 11.2-15.7 HEMATOCRIT (BEAKER) (test uxsh=457) 34.4 % 34.1-44.9 MEAN CORPUSCULAR VOLUME (BEAKER) (test ogcb=436) 94.8 fL 79.4-94.8 MEAN CORPUSCULAR HEMOGLOBIN (BEAKER) (test 28.4 pg 25.6-32.2 rfvb=342) MEAN CORPUSCULAR HEMOGLOBIN CONC (BEAKER) (test 29.9 GM/DL 32.2-35.5 yoza=781) RED CELL DISTRIBUTION WIDTH (BEAKER) (test 14.8 % 11.7-14.4 kvfz=050) PLATELET COUNT (BEAKER) (test byii=282) 266 K/CU MM 150-450 MEAN PLATELET VOLUME (BEAKER) (test czns=471) 10.8 fL 9.4-12.3 NUCLEATED RED BLOOD CELLS (BEAKER) (test 0 /100 WBC 0-0 lxyu=197) NEUTROPHILS RELATIVE PERCENT (BEAKER) (test 79 % uarh=614) LYMPHOCYTES RELATIVE PERCENT (BEAKER) (test 8 % pjvv=163) MONOCYTES RELATIVE PERCENT (BEAKER) (test 7 % xsos=734) EOSINOPHILS RELATIVE PERCENT (BEAKER) (test 2 % wksp=567) BASOPHILS RELATIVE PERCENT (BEAKER) (test 1 % olbt=739) NEUTROPHILS ABSOLUTE COUNT (BEAKER) (test 9.09 K/ L 1.56-6.13 enqj=285) LYMPHOCYTES ABSOLUTE COUNT (BEAKER) (test 0.90 K/ L 1.18-3.74 brbc=354) MONOCYTES ABSOLUTE COUNT (BEAKER) (test 0.76 K/ L 0.24-0.36 gpmo=037) EOSINOPHILS ABSOLUTE COUNT (BEAKER) (test 0.27 K/ L 0.04-0.36 cjsd=715) BASOPHILS ABSOLUTE COUNT (BEAKER) (test 0.08 K/ L 0.01-0.08 lbpu=408) IMMATURE GRANULOCYTES-RELATIVE PERCENT (BEAKER) 4 % 0-1 (test wrqs=8486) POCT-GLUCOSE [id number] 21:18:00 Test Item Value Reference Range Comments POC-GLUCOSE METER (BEAKER) 147 mg/dL 70-110 TESTED AT [address] (test ftwj=0720) [facility] [address] TISSUE [id number] 15:55:00Surgical Pathology Report Case: [id number] Authorizing Provider: Billy Mcmanus, Collected: 03/18/2018 [place]6 OrderingLocation: [facility] Received: 2017 1131 PERIOPERATIVE SERVICES Pathologist: Chris Caraballo MD Specimen: Plaque, AORTIC PLAQUE AORTA, ATHERECTOMY:CALCIFIC ATHEROSCLEROTIC PLAQUE Signing Pathologist Direct Phone Line: [phone] by Chris Caraballo MD on 03/25/2018 at 3:55 [id number]; [id number] plaque Received in saline labeled "plaque", description "aortic plaque" is a 4.5 x 3.5 x 0.6 cm aggregate of felix-white to yellow-panchal, rubbery, calcified fibrous tissue.Security Assurance Analyst sections are submitted in cassette A1 for decalcification. DB/ew PerformedPOTASSIUM-STAT [id number] 11:04:00 Test Item Value Reference Range Comments POTASSIUM (BEAKER) (test nafl=251) 3.0 meq/L 3.6-5.5 HGB/HCT (H&H) - STAT [id number] 11:04:00 Test Item Value Reference Range Comments HEMOGLOBIN (BEAKER) (test fvgr=767) 11.2 g/dL 12.0-15.0 HEMATOCRIT (BEAKER) (test sllg=079) 33.0 % 36.0-45.0 GLUCOSE-STAT [id number] 11:04:00 Test Item Value Reference Range Comments GLUCOSE RANDOM (BEAKER) (test rokd=167) 116 mg/dL 70-110 POCT-GLUCOSE [id number] 07:01:00 Test Item Value Reference Range Comments POC-GLUCOSE METER (BEAKER) 91 mg/dL 70-110 TESTED AT [facility] [address] [facility] (test izno=9498) [facility] [address] BASIC METABOLIC [id number] 05:12:00 Test Item Value Reference Range Comments SODIUM (BEAKER) (test 140 meq/L 136-145 qdoc=995) POTASSIUM (BEAKER) (test 4.0 meq/L 3.5-5.1 qmeg=748) CHLORIDE (BEAKER) (test 100 meq/L 98-107 abno=596) CO2 (BEAKER) (test 34 meq/L 22-29 gcnd=965) BLOOD UREA NITROGEN 14 mg/dL 7-21 (BEAKER) (test rmay=235) CREATININE (BEAKER) (test 0.75 mg/dL 0.57-1.25 gmvp=858) GLUCOSE RANDOM (BEAKER) 100 mg/dL 70-105 (test skms=395) CALCIUM (BEAKER) (test 9.2 mg/dL 8.4-10.2 dvvh=977) EGFR (BEAKER) (test 74 mL/min/1.73 sq m ESTIMATED GFR IS NOT yoeg=3740) ACCURATE CREATININE CLEARANCE IN PREDICTING GLOMERULAR FILTRATION RATE. ESTIMATED GFR IS NOT APPLICABLE FOR DIALYSIS PATIENTS. CBC W/PLT COUNT & AUTO [id number] 04:36:00 Test Item Value Reference Range Comments WHITE BLOOD CELL COUNT (BEAKER) (test gjvh=264) 11.1 K/ L 3.5-10.5 RED BLOOD CELL COUNT (BEAKER) (test fenp=651) 3.57 M/ L 3.93-5.22 HEMOGLOBIN (BEAKER) (test qnlu=376) 10.3 GM/DL 11.2-15.7 HEMATOCRIT (BEAKER) (test hhxt=426) 33.8 % 34.1-44.9 MEAN CORPUSCULAR VOLUME (BEAKER) (test flao=612) 94.7 fL 79.4-94.8 MEAN CORPUSCULAR HEMOGLOBIN (BEAKER) (test 28.9 pg 25.6-32.2 zdvj=206) MEAN CORPUSCULAR HEMOGLOBIN CONC (BEAKER) (test 30.5 GM/DL 32.2-35.5 zrsa=926) RED CELL DISTRIBUTION WIDTH (BEAKER) (test 14.6 % 11.7-14.4 foqo=632) PLATELET COUNT (BEAKER) (test kdva=566) 244 K/CU MM 150-450 MEAN PLATELET VOLUME (BEAKER) (test oskd=368) 10.7 fL 9.4-12.3 NUCLEATED RED BLOOD CELLS (BEAKER) (test 1 /100 WBC 0-0 vkxc=332) NEUTROPHILS RELATIVE PERCENT (BEAKER) (test 72 % zzfy=725) LYMPHOCYTES RELATIVE PERCENT (BEAKER) (test 13 % mrdh=147) MONOCYTES RELATIVE PERCENT (BEAKER) (test 9 % zwrh=104) EOSINOPHILS RELATIVE PERCENT (BEAKER) (test 2 % uowa=695) BASOPHILS RELATIVE PERCENT (BEAKER) (test 1 % gaea=624) NEUTROPHILS ABSOLUTE COUNT (BEAKER) (test 7.91 K/ L 1.56-6.13 usur=185) LYMPHOCYTES ABSOLUTE COUNT (BEAKER) (test 1.45 K/ L 1.18-3.74 xrqq=149) MONOCYTES ABSOLUTE COUNT (BEAKER) (test 1.00 K/ L 0.24-0.36 eshk=592) EOSINOPHILS ABSOLUTE COUNT (BEAKER) (test 0.21 K/ L 0.04-0.36 uqgy=353) BASOPHILS ABSOLUTE COUNT (BEAKER) (test 0.07 K/ L 0.01-0.08 axkr=767) IMMATURE GRANULOCYTES-RELATIVE PERCENT (BEAKER) 4 % 0-1 (test tkwp=0810) POCT-GLUCOSE [id number] 21:06:00 Test Item Value Reference Range Comments POC-GLUCOSE METER (BEAKER) 152 mg/dL 70-110 TESTED AT [address] (test iuqm=7549) [place] [id number] POCT-GLUCOSE [id number] 17:43:00 Test Item Value Reference Range Comments POC-GLUCOSE METER (BEAKER) 155 mg/dL 70-110 TESTED AT [address] (test yoam=1553) [place] [address] POCT-GLUCOSE [id number] 12:30:00 Test Item Value Reference Range Comments POC-GLUCOSE METER (BEAKER) 167 mg/dL 70-110 TESTED AT [address] (test nrfl=9242) [facility] [address] POCT-GLUCOSE [id number] 07:13:00 Test Item Value Reference Range Comments POC-GLUCOSE METER (BEAKER) 111 mg/dL 70-110 TESTED AT [address] (test fclj=0988) [facility] [address] BASIC METABOLIC [id number] 05:33:00 Test Item Value Reference Range Comments SODIUM (BEAKER) (test 139 meq/L 136-145 xryh=937) POTASSIUM (BEAKER) (test 3.9 meq/L 3.5-5.1 rvdj=373) CHLORIDE (BEAKER) (test 102 meq/L 98-107 cksz=922) CO2 (BEAKER) (test 29 meq/L 22-29 lzqi=966) BLOOD UREA NITROGEN 17 mg/dL 7-21 (BEAKER) (test ofjp=670) CREATININE (BEAKER) (test 0.72 mg/dL 0.57-1.25 isli=914) GLUCOSE RANDOM (BEAKER) 114 mg/dL 70-105 (test xpmd=694) CALCIUM (BEAKER) (test 8.8 mg/dL 8.4-10.2 brik=019) EGFR (BEAKER) (test 77 mL/min/1.73 sq m ESTIMATED GFR IS NOT born=3671) ACCURATE CREATININE CLEARANCE IN PREDICTING GLOMERULAR FILTRATION RATE. ESTIMATED GFR IS NOT APPLICABLE FOR DIALYSIS PATIENTS. CBC W/PLT COUNT & AUTO [id number] 04:58:00 Test Item Value Reference Range Comments WHITE BLOOD CELL COUNT (BEAKER) (test iczy=125) 9.9 K/ L 3.5-10.5 RED BLOOD CELL COUNT (BEAKER) (test ylrq=591) 3.54 M/ L 3.93-5.22 HEMOGLOBIN (BEAKER) (test pmwv=645) 10.2 GM/DL 11.2-15.7 HEMATOCRIT (BEAKER) (test mbge=937) 33.7 % 34.1-44.9 MEAN CORPUSCULAR VOLUME (BEAKER) (test hino=576) 95.2 fL 79.4-94.8 MEAN CORPUSCULAR HEMOGLOBIN (BEAKER) (test 28.8 pg 25.6-32.2 frmn=355) MEAN CORPUSCULAR HEMOGLOBIN CONC (BEAKER) (test 30.3 GM/DL 32.2-35.5 mtbu=536) RED CELL DISTRIBUTION WIDTH (BEAKER) (test 14.4 % 11.7-14.4 hexq=697) PLATELET COUNT (BEAKER) (test nlgn=600) 226 K/CU MM 150-450 MEAN PLATELET VOLUME (BEAKER) (test iyml=714) 11.2 fL 9.4-12.3 NUCLEATED RED BLOOD CELLS (BEAKER) (test 0 /100 WBC 0-0 xzjz=664) NEUTROPHILS RELATIVE PERCENT (BEAKER) (test 73 % vlci=623) LYMPHOCYTES RELATIVE PERCENT (BEAKER) (test 14 % syxs=060) MONOCYTES RELATIVE PERCENT (BEAKER) (test 9 % emxi=191) EOSINOPHILS RELATIVE PERCENT (BEAKER) (test 2 % zayf=024) BASOPHILS RELATIVE PERCENT (BEAKER) (test 1 % ybve=805) NEUTROPHILS ABSOLUTE COUNT (BEAKER) (test 7.15 K/ L 1.56-6.13 ntan=072) LYMPHOCYTES ABSOLUTE COUNT (BEAKER) (test 1.36 K/ L 1.18-3.74 jsok=198) MONOCYTES ABSOLUTE COUNT (BEAKER) (test 0.87 K/ L 0.24-0.36 jldj=641) EOSINOPHILS ABSOLUTE COUNT (BEAKER) (test 0.18 K/ L 0.04-0.36 dyta=089) BASOPHILS ABSOLUTE COUNT (BEAKER) (test 0.07 K/ L 0.01-0.08 zbwm=036) IMMATURE GRANULOCYTES-RELATIVE PERCENT (BEAKER) 2 % 0-1 (test iugh=5297) POCT-GLUCOSE [id number] 20:59:00 Test Item Value Reference Range Comments POC-GLUCOSE METER (BEAKER) 178 mg/dL 70-110 TESTED AT [address] (test fyoj=9903) [place] [id number] POCT-GLUCOSE [id number] 18:18:00 Test Item Value Reference Range Comments POC-GLUCOSE METER (BEAKER) 137 mg/dL 70-110 TESTED AT [address] (test bkgv=0145) [facility] [address] RAD, SPINE, LUMBAR, COMPLETE (MIN 4 VIEWS)2018-03-23 [...] MDReport Verified Date/Time: 03/23/2018 16:25:16 Reading Location: [facility] C0X Ortho Consult Reading Room SPUTUM CULTURE + GRAM [id number] 10:41:00 Test Item Value Reference Range Comments CULTURE (BEAKER) (test 3+ Normal respiratory anu wpua=8970) present GRAM STAIN RESULT (BEAKER) <1+ WBCs (test pxkt=8021) GRAM STAIN RESULT (BEAKER) 10-15 epithelial cells (test bvei=22950) GRAM STAIN RESULT (BEAKER) 1+ gram positive cocci in pairs (test ylgt=17767) POCT-GLUCOSE [id number] 08:09:00 Test Item Value Reference Range Comments POC-GLUCOSE METER (BEAKER) 94 mg/dL 70-110 TESTED AT [facility] [address] (test djsr=3859) [facility] [address] BASIC METABOLIC [id number] 06:23:00 Test Item Value Reference Range Comments SODIUM (BEAKER) (test 142 meq/L 136-145 dyze=286) POTASSIUM (BEAKER) (test 3.3 meq/L 3.5-5.1 wdpp=633) CHLORIDE (BEAKER) (test 102 meq/L 98-107 baxn=179) CO2 (BEAKER) (test 27 meq/L 22-29 yygu=822) BLOOD UREA NITROGEN 17 mg/dL 7-21 (BEAKER) (test ajxc=714) CREATININE (BEAKER) (test 0.69 mg/dL 0.57-1.25 fuyi=688) GLUCOSE RANDOM (BEAKER) 81 mg/dL 70-105 (test aqhk=342) CALCIUM (BEAKER) (test 9.4 mg/dL 8.4-10.2 opac=701) EGFR (BEAKER) (test 81 mL/min/1.73 sq m ESTIMATED GFR IS NOT jpzv=1323) ACCURATE CREATININE CLEARANCE IN PREDICTING GLOMERULAR FILTRATION RATE. ESTIMATED GFR IS NOT APPLICABLE FOR DIALYSIS PATIENTS. CBC W/PLT COUNT & AUTO [id number] 06:00:00 Test Item Value Reference Range Comments WHITE BLOOD CELL COUNT (BEAKER) (test iobm=244) 8.2 K/ L 3.5-10.5 RED BLOOD CELL COUNT (BEAKER) (test qqlb=628) 4.03 M/ L 3.93-5.22 HEMOGLOBIN (BEAKER) (test cjyq=322) 11.5 GM/DL 11.2-15.7 HEMATOCRIT (BEAKER) (test guwh=379) 38.6 % 34.1-44.9 MEAN CORPUSCULAR VOLUME (BEAKER) (test blof=798) 95.8 fL 79.4-94.8 MEAN CORPUSCULAR HEMOGLOBIN (BEAKER) (test 28.5 pg 25.6-32.2 jpnw=756) MEAN CORPUSCULAR HEMOGLOBIN CONC (BEAKER) (test 29.8 GM/DL 32.2-35.5 gcxa=104) RED CELL DISTRIBUTION WIDTH (BEAKER) (test 14.5 % 11.7-14.4 gsgu=837) PLATELET COUNT (BEAKER) (test mpsi=092) 214 K/CU MM 150-450 MEAN PLATELET VOLUME (BEAKER) (test dhsb=531) 11.5 fL 9.4-12.3 NUCLEATED RED BLOOD CELLS (BEAKER) (test 0 /100 WBC 0-0 ejue=280) NEUTROPHILS RELATIVE PERCENT (BEAKER) (test 71 % mbeq=753) LYMPHOCYTES RELATIVE PERCENT (BEAKER) (test 17 % ajsn=414) MONOCYTES RELATIVE PERCENT (BEAKER) (test 8 % sbrx=119) EOSINOPHILS RELATIVE PERCENT (BEAKER) (test 3 % hvmi=949) BASOPHILS RELATIVE PERCENT (BEAKER) (test 1 % vsbj=281) NEUTROPHILS ABSOLUTE COUNT (BEAKER) (test 5.84 K/ L 1.56-6.13 wzkh=225) LYMPHOCYTES ABSOLUTE COUNT (BEAKER) (test 1.36 K/ L 1.18-3.74 zbvx=655) MONOCYTES ABSOLUTE COUNT (BEAKER) (test 0.63 K/ L 0.24-0.36 dscv=249) EOSINOPHILS ABSOLUTE COUNT (BEAKER) (test 0.24 K/ L 0.04-0.36 crlj=186) BASOPHILS ABSOLUTE COUNT (BEAKER) (test 0.07 K/ L 0.01-0.08 bpen=790) IMMATURE GRANULOCYTES-RELATIVE PERCENT (BEAKER) 1 % 0-1 (test sfvt=1138) POCT-GLUCOSE [id number] 21:32:00 Test Item Value Reference Range Comments POC-GLUCOSE METER (BEAKER) 238 mg/dL 70-110 TESTED AT [address] (test nvch=9755) [place] [id number] POCT-GLUCOSE [id number] 12:11:00 Test Item Value Reference Range Comments POC-GLUCOSE METER (BEAKER) 102 mg/dL 70-110 TESTED AT [address] (test hkhu=3556) [place] [id number] POCT-GLUCOSE [id number] 07:49:00 Test Item Value Reference Range Comments POC-GLUCOSE METER (BEAKER) 93 mg/dL 70-110 TESTED AT [address] (test bejh=9616) [place] [address] BASIC METABOLIC [id number] 06:14:00 Test Item Value Reference Range Comments SODIUM (BEAKER) (test 142 meq/L 136-145 ojpm=921) POTASSIUM (BEAKER) (test 4.6 meq/L 3.5-5.1 mkfr=902) CHLORIDE (BEAKER) (test 103 meq/L 98-107 hcvk=290) CO2 (BEAKER) (test 32 meq/L 22-29 nvbw=276) BLOOD UREA NITROGEN 18 mg/dL 7-21 (BEAKER) (test lvtg=096) CREATININE (BEAKER) (test 0.73 mg/dL 0.57-1.25 rshb=681) GLUCOSE RANDOM (BEAKER) 78 mg/dL 70-105 (test lyvs=303) CALCIUM (BEAKER) (test 9.3 mg/dL 8.4-10.2 qgbg=618) EGFR (BEAKER) (test 76 mL/min/1.73 sq m ESTIMATED GFR IS NOT gtyc=1964) ACCURATE CREATININE CLEARANCE IN PREDICTING GLOMERULAR FILTRATION RATE. ESTIMATED GFR IS NOT APPLICABLE FOR DIALYSIS PATIENTS. CBC W/PLT COUNT & AUTO [id number] 05:44:00 Test Item Value Reference Range Comments WHITE BLOOD CELL COUNT (BEAKER) (test rmpw=033) 9.0 K/ L 3.5-10.5 RED BLOOD CELL COUNT (BEAKER) (test cfki=769) 3.81 M/ L 3.93-5.22 HEMOGLOBIN (BEAKER) (test jkem=685) 10.8 GM/DL 11.2-15.7 HEMATOCRIT (BEAKER) (test fvmi=896) 36.8 % 34.1-44.9 MEAN CORPUSCULAR VOLUME (BEAKER) (test wnxy=260) 96.6 fL 79.4-94.8 MEAN CORPUSCULAR HEMOGLOBIN (BEAKER) (test 28.3 pg 25.6-32.2 bffp=351) MEAN CORPUSCULAR HEMOGLOBIN CONC (BEAKER) (test 29.3 GM/DL 32.2-35.5 khap=592) RED CELL DISTRIBUTION WIDTH (BEAKER) (test 14.7 % 11.7-14.4 xerz=437) PLATELET COUNT (BEAKER) (test gqfe=257) 178 K/CU MM 150-450 MEAN PLATELET VOLUME (BEAKER) (test wcny=115) 11.6 fL 9.4-12.3 NUCLEATED RED BLOOD CELLS (BEAKER) (test 0 /100 WBC 0-0 lijo=167) NEUTROPHILS RELATIVE PERCENT (BEAKER) (test 75 % nkja=827) LYMPHOCYTES RELATIVE PERCENT (BEAKER) (test 14 % kluj=075) MONOCYTES RELATIVE PERCENT (BEAKER) (test 7 % ucfb=707) EOSINOPHILS RELATIVE PERCENT (BEAKER) (test 3 % pjrc=401) BASOPHILS RELATIVE PERCENT (BEAKER) (test 1 % indl=609) NEUTROPHILS ABSOLUTE COUNT (BEAKER) (test 6.69 K/ L 1.56-6.13 muca=043) LYMPHOCYTES ABSOLUTE COUNT (BEAKER) (test 1.29 K/ L 1.18-3.74 tdrt=885) MONOCYTES ABSOLUTE COUNT (BEAKER) (test 0.65 K/ L 0.24-0.36 fosu=568) EOSINOPHILS ABSOLUTE COUNT (BEAKER) (test 0.22 K/ L 0.04-0.36 dedw=628) BASOPHILS ABSOLUTE COUNT (BEAKER) (test 0.05 K/ L 0.01-0.08 wtvi=873) IMMATURE GRANULOCYTES-RELATIVE PERCENT (BEAKER) 1 % 0-1 (test uukg=2025) POCT-GLUCOSE [id number] 21:06:00 Test Item Value Reference Range Comments POC-GLUCOSE METER (BEAKER) 116 mg/dL 70-110 TESTED AT [address] (test fjue=3014) [place] [address] POCT-GLUCOSE [id number] 16:33:00 Test Item Value Reference Range Comments POC-GLUCOSE METER (BEAKER) 138 mg/dL 70-110 TESTED AT [address] (test yhey=2070) [place] [address] POCT-GLUCOSE [id number] 12:15:00 Test Item Value Reference Range Comments POC-GLUCOSE METER (BEAKER) 150 mg/dL 70-110 TESTED AT [address] (test qfaj=9332) [place] [address] POCT-GLUCOSE [id number] 09:03:00 Test Item Value Reference Range Comments POC-GLUCOSE METER (BEAKER) 101 mg/dL 70-110 TESTED AT [address] (test lber=8988) [place] [address] RAD, CHEST, 1 VIEW, NON [id number] 08:03:00Reason for exam:->post cardiovascular procedureShould this be [...] Verified Date/ Time: 03/21/2018 08:03:21 Reading Location: [facility] Diagnostic Imaging Reading Room - [place] [address] Electronically signed by: FREYA TURCIOS M.D. on 2017 08:03 [id number] 04:37:00 Test Item Value Reference Range Comments MAGNESIUM (BEAKER) (test 1.9 mg/dL 1.6-2.6 Specimen slightly hemolyzed obdz=082) BASIC METABOLIC [id number] 04:37:00 Test Item Value Reference Range Comments SODIUM (BEAKER) (test 141 meq/L 136-145 ncuj=976) POTASSIUM (BEAKER) (test 4.0 meq/L 3.5-5.1 Specimen slightly uuzo=946) hemolyzed CHLORIDE (BEAKER) (test 104 meq/L 98-107 iekc=716) CO2 (BEAKER) (test 27 meq/L 22-29 cglo=584) BLOOD UREA NITROGEN 28 mg/dL 7-21 (BEAKER) (test axdj=319) CREATININE (BEAKER) (test 0.81 mg/dL 0.57-1.25 Specimen slightly hjvk=141) hemolyzed GLUCOSE RANDOM (BEAKER) 124 mg/dL 70-105 (test kydo=510) CALCIUM (BEAKER) (test 9.8 mg/dL 8.4-10.2 aijs=609) EGFR (BEAKER) (test 68 mL/min/1.73 sq m ESTIMATED GFR IS NOT nodq=2408) ACCURATE CREATININE CLEARANCE IN PREDICTING GLOMERULAR FILTRATION RATE. ESTIMATED GFR IS NOT APPLICABLE FOR DIALYSIS PATIENTS. CBC W/PLT COUNT & AUTO [id number] 04:27:00 Test Item Value Reference Range Comments WHITE BLOOD CELL COUNT (BEAKER) (test zuwx=646) 13.9 K/ L 3.5-10.5 RED BLOOD CELL COUNT (BEAKER) (test hcva=445) 3.73 M/ L 3.93-5.22 HEMOGLOBIN (BEAKER) (test naav=036) 11.1 GM/DL 11.2-15.7 HEMATOCRIT (BEAKER) (test gino=158) 35.4 % 34.1-44.9 MEAN CORPUSCULAR VOLUME (BEAKER) (test widn=613) 94.9 fL 79.4-94.8 MEAN CORPUSCULAR HEMOGLOBIN (BEAKER) (test 29.8 pg 25.6-32.2 kaho=090) MEAN CORPUSCULAR HEMOGLOBIN CONC (BEAKER) (test 31.4 GM/DL 32.2-35.5 cgfr=209) RED CELL DISTRIBUTION WIDTH (BEAKER) (test 14.8 % 11.7-14.4 lodh=889) PLATELET COUNT (BEAKER) (test euch=197) 173 K/CU MM 150-450 MEAN PLATELET VOLUME (BEAKER) (test yazb=075) 11.8 fL 9.4-12.3 NUCLEATED RED BLOOD CELLS (BEAKER) (test 0 /100 WBC 0-0 lgjy=288) NEUTROPHILS RELATIVE PERCENT (BEAKER) (test 90 % pirr=918) LYMPHOCYTES RELATIVE PERCENT (BEAKER) (test 5 % ynyo=070) MONOCYTES RELATIVE PERCENT (BEAKER) (test 4 % audf=000) EOSINOPHILS RELATIVE PERCENT (BEAKER) (test 1 % wgjr=838) BASOPHILS RELATIVE PERCENT (BEAKER) (test 0 % zkjv=954) NEUTROPHILS ABSOLUTE COUNT (BEAKER) (test 12.44 K/ L 1.56-6.13 vdab=073) LYMPHOCYTES ABSOLUTE COUNT (BEAKER) (test 0.67 K/ L 1.18-3.74 obom=912) MONOCYTES ABSOLUTE COUNT (BEAKER) (test 0.58 K/ L 0.24-0.36 akom=910) EOSINOPHILS ABSOLUTE COUNT (BEAKER) (test 0.07 K/ L 0.04-0.36 weby=662) BASOPHILS ABSOLUTE COUNT (BEAKER) (test 0.04 K/ L 0.01-0.08 uodp=106) IMMATURE GRANULOCYTES-RELATIVE PERCENT (BEAKER) 1 % 0-1 (test dvkp=7272) POCT-GLUCOSE [id number] 20:59:00 Test Item Value Reference Range Comments POC-GLUCOSE METER (BEAKER) 111 mg/dL 70-110 TESTED AT [address] (test wqtc=3102) [place] [id number] POCT-GLUCOSE [id number] 18:33:00 Test Item Value Reference Range Comments POC-GLUCOSE METER (BEAKER) 101 mg/dL 70-110 TESTED AT [address] (test bpnw=3111) [facility] [address] POCT-GLUCOSE [id number] 16:33:00 Test Item Value Reference Range Comments POC-GLUCOSE METER (BEAKER) 128 mg/dL 70-110 TESTED AT [address] (test hrni=4753) [place] [address] POCT-GLUCOSE [id number] 11:35:00 Test Item Value Reference Range Comments POC-GLUCOSE METER (BEAKER) 129 mg/dL 70-110 TESTED AT [address] (test hhxn=5124) [place] [address] HEMOGLOBIN [id number] 08:58:00 Test Item Value Reference Range Comments HEMOGLOBIN A1C (BEAKER) (test sskg=424) 6.0 % 4.3-6.1 RAD, CHEST, 1 VIEW, NON [id number] 08:06:00Reason for exam:->post cardiovascular procedureShould this be [...] Garrettort Verified Date/Time: 03/20/2018 08:06:53 Reading Location: [facility] Radiology Reading Room POCT-GLUCOSE [id number] 06:21:00 Test Item Value Reference Range Comments POC-GLUCOSE METER (BEAKER) 133 mg/dL 70-110 TESTED AT [facility] [address] (test kowm=5203) [place] [address] [id number] 06:00:00 Test Item Value Reference Range Comments MAGNESIUM (BEAKER) (test zmdi=903) 2.0 mg/dL 1.6-2.6 BASIC METABOLIC [id number] 06:00:00 Test Item Value Reference Range Comments SODIUM (BEAKER) (test 144 meq/L 136-145 ahba=739) POTASSIUM (BEAKER) (test 3.9 meq/L 3.5-5.1 iyxg=872) CHLORIDE (BEAKER) (test 107 meq/L 98-107 rftf=550) CO2 (BEAKER) (test 27 meq/L 22-29 wqql=987) BLOOD UREA NITROGEN 36 mg/dL 7-21 (BEAKER) (test frdx=480) CREATININE (BEAKER) (test 0.99 mg/dL 0.57-1.25 qzaw=775) GLUCOSE RANDOM (BEAKER) 123 mg/dL 70-105 (test zsey=746) CALCIUM (BEAKER) (test 9.3 mg/dL 8.4-10.2 tbvj=929) EGFR (BEAKER) (test 54 mL/min/1.73 sq m ESTIMATED GFR IS NOT tlol=9787) ACCURATE CREATININE CLEARANCE IN PREDICTING GLOMERULAR FILTRATION RATE. ESTIMATED GFR IS NOT APPLICABLE FOR DIALYSIS PATIENTS. CBC W/PLT COUNT & AUTO [id number] 05:39:00 Test Item Value Reference Range Comments WHITE BLOOD CELL COUNT (BEAKER) (test mtcv=662) 16.0 K/ L 3.5-10.5 RED BLOOD CELL COUNT (BEAKER) (test dmpv=432) 4.19 M/ L 3.93-5.22 HEMOGLOBIN (BEAKER) (test mdch=996) 12.0 GM/DL 11.2-15.7 HEMATOCRIT (BEAKER) (test ahhn=100) 40.1 % 34.1-44.9 MEAN CORPUSCULAR VOLUME (BEAKER) (test vyqt=655) 95.7 fL 79.4-94.8 MEAN CORPUSCULAR HEMOGLOBIN (BEAKER) (test 28.6 pg 25.6-32.2 juoq=284) MEAN CORPUSCULAR HEMOGLOBIN CONC (BEAKER) (test 29.9 GM/DL 32.2-35.5 ecjt=613) RED CELL DISTRIBUTION WIDTH (BEAKER) (test 14.8 % 11.7-14.4 ctky=980) PLATELET COUNT (BEAKER) (test zlkc=701) 166 K/CU MM 150-450 MEAN PLATELET VOLUME (BEAKER) (test bgms=127) 11.6 fL 9.4-12.3 NUCLEATED RED BLOOD CELLS (BEAKER) (test 0 /100 WBC 0-0 xwhb=826) NEUTROPHILS RELATIVE PERCENT (BEAKER) (test 90 % ijec=695) LYMPHOCYTES RELATIVE PERCENT (BEAKER) (test 4 % kvwi=773) MONOCYTES RELATIVE PERCENT (BEAKER) (test 4 % evpt=768) EOSINOPHILS RELATIVE PERCENT (BEAKER) (test 0 % lngg=625) BASOPHILS RELATIVE PERCENT (BEAKER) (test 0 % envf=267) NEUTROPHILS ABSOLUTE COUNT (BEAKER) (test 14.45 K/ L 1.56-6.13 mxsh=949) LYMPHOCYTES ABSOLUTE COUNT (BEAKER) (test 0.66 K/ L 1.18-3.74 nssw=432) MONOCYTES ABSOLUTE COUNT (BEAKER) (test 0.70 K/ L 0.24-0.36 iqqs=309) EOSINOPHILS ABSOLUTE COUNT (BEAKER) (test 0.01 K/ L 0.04-0.36 bpgv=110) BASOPHILS ABSOLUTE COUNT (BEAKER) (test 0.06 K/ L 0.01-0.08 ugsh=244) IMMATURE GRANULOCYTES-RELATIVE PERCENT (BEAKER) 1 % 0-1 (test fstg=0695) POCT-GLUCOSE [id number] 00:24:00 Test Item Value Reference Range Comments POC-GLUCOSE METER (BEAKER) 117 mg/dL 70-110 TESTED AT [facility] [address] [facility] (test kvjd=5645) [facility] [address] POCT-GLUCOSE [id number] 17:07:00 Test Item Value Reference Range Comments POC-GLUCOSE METER (BEAKER) 132 mg/dL 70-110 TESTED AT [place] [id number] [facility] (test dkwj=7765) [facility] [address] RAD, ABDOMEN/KUB, 1 VIEW [id number] 15:02:00Reason for exam:->nausea and eructationsFINAL REPORT TECHNIQUE: [...] Glassort Verified Date/Time: 03/19/2018 15:02:35 Reading Location: [facility] Radiology Reading Room POCT- GLUCOSE [id number] 10:23:00 Test Item Value Reference Range Comments POC-GLUCOSE METER (BEAKER) 111 mg/dL 70-110 TESTED AT [address] (test ufgq=5975) [place] [address] RAD, CHEST, 1 VIEW, NON [id number] 08:26:00Reason for exam:->post cardiovascular procedureShould this be [...] Garrett Verified Date/Time: 03/19/2018 08:26:26 [facility] POCT-GLUCOSE [id number] 06:09:00 Test Item Value Reference Range Comments POC-GLUCOSE METER (BEAKER) 120 mg/dL 70-110 TESTED AT [address] (test tvmk=0965) [place] [address] POCT-GLUCOSE [id number] 06:09:00 Test Item Value Reference Range Comments POC-GLUCOSE METER (BEAKER) 120 mg/dL 70-110 TESTED AT [address] (test wfhv=3407) [place] [id number] 04:28:00 Test Item Value Reference Range Comments MAGNESIUM (BEAKER) (test 2.2 mg/dL 1.6-2.6 Specimen slightly hemolyzed kzvu=958) BASIC METABOLIC [id number] 04:28:00 Test Item Value Reference Range Comments SODIUM (BEAKER) (test 141 meq/L 136-145 gfxf=801) POTASSIUM (BEAKER) (test 3.8 meq/L 3.5-5.1 Specimen slightly bpcz=385) hemolyzed CHLORIDE (BEAKER) (test 109 meq/L 98-107 wysd=243) CO2 (BEAKER) (test 24 meq/L 22-29 wset=790) BLOOD UREA NITROGEN 30 mg/dL 7-21 (BEAKER) (test qzgx=327) CREATININE (BEAKER) (test 0.86 mg/dL 0.57-1.25 Specimen slightly ywfj=491) hemolyzed GLUCOSE RANDOM (BEAKER) 119 mg/dL 70-105 (test wgoh=733) CALCIUM (BEAKER) (test 8.9 mg/dL 8.4-10.2 sqki=689) EGFR (BEAKER) (test 63 mL/min/1.73 sq m ESTIMATED GFR IS NOT macx=3490) ACCURATE CREATININE CLEARANCE IN PREDICTING GLOMERULAR FILTRATION RATE. ESTIMATED GFR IS NOT APPLICABLE FOR DIALYSIS PATIENTS. CBC W/PLT COUNT & AUTO [id number] 04:19:00 Test Item Value Reference Range Comments WHITE BLOOD CELL COUNT (BEAKER) (test ikfx=260) 12.8 K/ L 3.5-10.5 RED BLOOD CELL COUNT (BEAKER) (test xahb=823) 4.54 M/ L 3.93-5.22 HEMOGLOBIN (BEAKER) (test eifm=114) 12.9 GM/DL 11.2-15.7 HEMATOCRIT (BEAKER) (test awya=833) 43.3 % 34.1-44.9 MEAN CORPUSCULAR VOLUME (BEAKER) (test mbeb=108) 95.4 fL 79.4-94.8 MEAN CORPUSCULAR HEMOGLOBIN (BEAKER) (test 28.4 pg 25.6-32.2 wdxp=989) MEAN CORPUSCULAR HEMOGLOBIN CONC (BEAKER) (test 29.8 GM/DL 32.2-35.5 enyb=216) RED CELL DISTRIBUTION WIDTH (BEAKER) (test 14.8 % 11.7-14.4 godb=803) PLATELET COUNT (BEAKER) (test cfmb=497) 207 K/CU MM 150-450 MEAN PLATELET VOLUME (BEAKER) (test evip=782) 11.6 fL 9.4-12.3 NUCLEATED RED BLOOD CELLS (BEAKER) (test 0 /100 WBC 0-0 dunn=596) NEUTROPHILS RELATIVE PERCENT (BEAKER) (test 87 % blfv=709) LYMPHOCYTES RELATIVE PERCENT (BEAKER) (test 6 % erps=059) MONOCYTES RELATIVE PERCENT (BEAKER) (test 6 % hioy=121) EOSINOPHILS RELATIVE PERCENT (BEAKER) (test 0 % qrzc=309) BASOPHILS RELATIVE PERCENT (BEAKER) (test 1 % ejxa=777) NEUTROPHILS ABSOLUTE COUNT (BEAKER) (test 11.16 K/ L 1.56-6.13 wukp=108) LYMPHOCYTES ABSOLUTE COUNT (BEAKER) (test 0.71 K/ L 1.18-3.74 syrz=592) MONOCYTES ABSOLUTE COUNT (BEAKER) (test 0.74 K/ L 0.24-0.36 alfz=050) EOSINOPHILS ABSOLUTE COUNT (BEAKER) (test 0.02 K/ L 0.04-0.36 gvrt=193) BASOPHILS ABSOLUTE COUNT (BEAKER) (test 0.07 K/ L 0.01-0.08 wykt=652) IMMATURE GRANULOCYTES-RELATIVE PERCENT (BEAKER) 1 % 0-1 (test poco=3045) BLOOD GAS, [id number] 04:01:00 Test Item Value Reference Range Comments PH ARTERIAL (BEAKER) (test mswy=690) 7.37 7.35-7.45 PCO2 ARTERIAL (BEAKER) (test xlwl=289) 47 mmHg 35-45 PO2 ARTERIAL (BEAKER) (test tnhx=958) 68 mmHg 80-90 O2 SATURATION ARTERIAL (BEAKER) (test cgst=326) 92.4 % 96.0-97.0 HCO3 ARTERIAL (BEAKER) (test haph=987) 26 mmol/L 21-29 BASE EXCESS ARTERIAL (BEAKER) (test uhfw=234) 0.6 mmol/L -2.0-3.0 PATIENT TEMPERATURE (BEAKER) (test gveq=9538) 37.4 C FIO2 (BEAKER) (test odhq=9785) 40.0 % BLOOD GAS, [id number] 22:23:00 Test Item Value Reference Range Comments PH ARTERIAL (BEAKER) (test fkej=837) 7.40 7.35-7.45 PCO2 ARTERIAL (BEAKER) (test unxg=638) 42 mmHg 35-45 PO2 ARTERIAL (BEAKER) (test jfrw=878) 150 mmHg 80-90 O2 SATURATION ARTERIAL (BEAKER) (test zgna=057) 98.9 % 96.0-97.0 HCO3 ARTERIAL (BEAKER) (test prmb=419) 25 mmol/L 21-29 BASE EXCESS ARTERIAL (BEAKER) (test byui=046) 0.2 mmol/L -2.0-3.0 PATIENT TEMPERATURE (BEAKER) (test ymar=4294) 36.6 C FIO2 (BEAKER) (test fqqf=8081) 40.0 % GLUCOSE-STAT [id number] 22:23:00 Test Item Value Reference Range Comments GLUCOSE RANDOM (BEAKER) (test nauo=125) 140 mg/dL 70-110 [id number] 20:01:00 Test Item Value Reference Range Comments POTASSIUM (BEAKER) (test getz=333) 3.7 meq/L 3.5-5.1 8 hours after PO replacement [id number] 20:01:00 Test Item Value Reference Range Comments MAGNESIUM (BEAKER) (test wgtw=769) 2.2 mg/dL 1.6-2.6 8 hours after PO replacement completedBLOOD GAS, [id number] 19:27:00 Test Item Value Reference Range Comments PH ARTERIAL (BEAKER) (test obws=473) 7.40 7.35-7.45 PCO2 ARTERIAL (BEAKER) (test peil=900) 40 mmHg 35-45 PO2 ARTERIAL (BEAKER) (test cwls=254) 93 mmHg 80-90 O2 SATURATION ARTERIAL (BEAKER) (test zixd=113) 97.3 % 96.0-97.0 HCO3 ARTERIAL (BEAKER) (test xdqw=213) 25 mmol/L 21-29 BASE EXCESS ARTERIAL (BEAKER) (test txtc=449) -0.1 mmol/L -2.0-3.0 PATIENT TEMPERATURE (BEAKER) (test iatv=4235) 36.6 C FIO2 (BEAKER) (test lthp=0363) 40.0 % POCT-GLUCOSE [id number] 19:09:00 Test Item Value Reference Range Comments POC-GLUCOSE METER (BEAKER) 123 mg/dL 70-110 TESTED AT [address] (test adij=1345) [place] [address] POCT-GLUCOSE [id number] 18:02:00 Test Item Value Reference Range Comments POC-GLUCOSE METER (BEAKER) 108 mg/dL 70-110 TESTED AT [address] (test cjjn=5670) [facility] [address] POCT-GLUCOSE [id number] 17:06:00 Test Item Value Reference Range Comments POC-GLUCOSE METER (BEAKER) 103 mg/dL 70-110 TESTED AT [address] (test wfsf=7909) [place] [address] POCT-GLUCOSE [id number] 16:00:00 Test Item Value Reference Range Comments POC-GLUCOSE METER (BEAKER) 121 mg/dL 70-110 TESTED AT [address] (test uwws=0873) [place] [address] POCT-GLUCOSE [id number] 15:45:00 Test Item Value Reference Range Comments POC-GLUCOSE METER (BEAKER) 146 mg/dL 70-110 TESTED AT [address] (test cmbz=3399) [place] [address] BLOOD GAS, [id number] 15:25:00 Test Item Value Reference Range Comments PH ARTERIAL (BEAKER) (test uyqs=618) 7.33 7.35-7.45 PCO2 ARTERIAL (BEAKER) (test vvub=159) 49 mmHg 35-45 PO2 ARTERIAL (BEAKER) (test rgqq=070) 84 mmHg 80-90 O2 SATURATION ARTERIAL (BEAKER) (test pfit=182) 95.8 % 96.0-97.0 HCO3 ARTERIAL (BEAKER) (test zbqm=136) 25 mmol/L 21-29 BASE EXCESS ARTERIAL (BEAKER) (test gtxq=161) -1.3 mmol/L -2.0-3.0 PATIENT TEMPERATURE (BEAKER) (test mund=4578) 36.6 C FIO2 (BEAKER) (test zptm=1785) 40.0 % PLATELET AGGREGATION: FUNCTION [id number] 13:34:00 Test Item Value Reference Range Comments WEAK ADP RESULT(BEAKER) (test 63 % 60-91 iazt=6297) PLATELET FUNCTION SCREEN 60-100% indicates normal INTERP (BEAKER) (test platelet function mcmj=0383) [id number] (BEAKER) Teresa De León MD (electronic (test ligk=7082) signature) PLATELET COUNT AGG (BEAKER) 209 K/CU MM 150-450 (test kcut=8142) for patients on clopidogrel in past two weeksRAD, CHEST, 1 VIEW, NON [id number] 13:15:00Reason for exam:->post cardiovascular procedureShould this [...] MDReport Verified Date/Time: 03/18/2018 13:15:44 Reading Location: [facility] Consult Reading Room [id number] 13:04:00 Test Item Value Reference Range Comments MAGNESIUM (BEAKER) (test rstx=308) 1.8 mg/dL 1.6-2.6 BASIC METABOLIC [id number] 13:04:00 Test Item Value Reference Range Comments SODIUM (BEAKER) (test 140 meq/L 136-145 sxto=376) POTASSIUM (BEAKER) (test 3.0 meq/L 3.5-5.1 ergn=875) CHLORIDE (BEAKER) (test 109 meq/L 98-107 iedh=881) CO2 (BEAKER) (test 23 meq/L 22-29 lfud=771) BLOOD UREA NITROGEN 29 mg/dL 7-21 (BEAKER) (test ubwd=320) CREATININE (BEAKER) (test 0.89 mg/dL 0.57-1.25 okyt=769) GLUCOSE RANDOM (BEAKER) 142 mg/dL 70-105 (test vomr=179) CALCIUM (BEAKER) (test 9.3 mg/dL 8.4-10.2 xvsv=531) EGFR (BEAKER) (test 61 mL/min/1.73 sq m ESTIMATED GFR IS NOT xhlg=0999) ACCURATE CREATININE CLEARANCE IN PREDICTING GLOMERULAR FILTRATION RATE. ESTIMATED GFR IS NOT APPLICABLE FOR DIALYSIS PATIENTS. [id number] 12:43:00 Test Item Value Reference Range Comments PHOSPHORUS (BEAKER) (test ugas=907) 3.9 mg/dL 2.3-4.7 LACTIC ACID, VENOUS, WHOLE [id number] 12:15:00 Test Item Value Reference Range Comments LACTATE BLOOD VENOUS (2) 1.0 mmol/L 0.5-2.2 Specimen slightly hemolyzed (BEAKER) (test nkgc=9052) Effective 02/09/2016: Units/Reference Range ChangeNew: 0.5-2.2 mmol/L Previous: 5 -20 mg/dLCBC W/PLT COUNT & AUTO [id number] 12:06:00 Test Item Value Reference Range Comments WHITE BLOOD CELL COUNT (BEAKER) (test xpdq=839) 14.3 K/ L 3.5-10.5 RED BLOOD CELL COUNT (BEAKER) (test etfc=952) 4.44 M/ L 3.93-5.22 HEMOGLOBIN (BEAKER) (test wswe=227) 12.9 GM/DL 11.2-15.7 HEMATOCRIT (BEAKER) (test fklh=454) 41.8 % 34.1-44.9 MEAN CORPUSCULAR VOLUME (BEAKER) (test ting=831) 94.1 fL 79.4-94.8 MEAN CORPUSCULAR HEMOGLOBIN (BEAKER) (test 29.1 pg 25.6-32.2 gtnd=723) MEAN CORPUSCULAR HEMOGLOBIN CONC (BEAKER) (test 30.9 GM/DL 32.2-35.5 viic=736) RED CELL DISTRIBUTION WIDTH (BEAKER) (test 14.5 % 11.7-14.4 wnqq=576) PLATELET COUNT (BEAKER) (test hkad=994) 176 K/CU MM 150-450 MEAN PLATELET VOLUME (BEAKER) (test ffni=670) 11.4 fL 9.4-12.3 NUCLEATED RED BLOOD CELLS (BEAKER) (test 0 /100 WBC 0-0 kyip=076) NEUTROPHILS RELATIVE PERCENT (BEAKER) (test 91 % puon=882) LYMPHOCYTES RELATIVE PERCENT (BEAKER) (test 6 % fykr=246) MONOCYTES RELATIVE PERCENT (BEAKER) (test 1 % dmrp=415) EOSINOPHILS RELATIVE PERCENT (BEAKER) (test 0 % csbl=079) BASOPHILS RELATIVE PERCENT (BEAKER) (test 1 % lito=726) NEUTROPHILS ABSOLUTE COUNT (BEAKER) (test 13.02 K/ L 1.56-6.13 nivu=175) LYMPHOCYTES ABSOLUTE COUNT (BEAKER) (test 0.84 K/ L 1.18-3.74 azwm=226) MONOCYTES ABSOLUTE COUNT (BEAKER) (test 0.09 K/ L 0.24-0.36 pscr=595) EOSINOPHILS ABSOLUTE COUNT (BEAKER) (test 0.05 K/ L 0.04-0.36 vqsl=372) BASOPHILS ABSOLUTE COUNT (BEAKER) (test 0.08 K/ L 0.01-0.08 alab=880) IMMATURE GRANULOCYTES-RELATIVE PERCENT (BEAKER) 2 % 0-1 (test tzeb=6566) HGB/HCT (H&H) - STAT [id number] 12:01:00 Test Item Value Reference Range Comments HEMOGLOBIN (BEAKER) (test qjky=378) 13.8 g/dL 12.0-15.0 HEMATOCRIT (BEAKER) (test enlk=699) 41.0 % 36.0-45.0 CALCIUM, [id number] 12:01:00 Test Item Value Reference Range Comments CALCIUM IONIZED (BEAKER) (test ypgu=110) 1.25 mmol/L 1.12-1.27 PH, BLOOD (BEAKER) (test lwoz=0003) 7.37 BLOOD GAS, [id number] 12:01:00 Test Item Value Reference Range Comments PH ARTERIAL (BEAKER) (test cvju=896) 7.38 7.35-7.45 PCO2 ARTERIAL (BEAKER) (test nmib=566) 46 mmHg 35-45 PO2 ARTERIAL (BEAKER) (test kgul=532) 214 mmHg 80-90 O2 SATURATION ARTERIAL (BEAKER) (test rjat=553) 99.4 % 96.0-97.0 HCO3 ARTERIAL (BEAKER) (test dbxy=654) 26 mmol/L 21-29 BASE EXCESS ARTERIAL (BEAKER) (test bywb=335) 0.5 mmol/L -2.0-3.0 PATIENT TEMPERATURE (BEAKER) (test xtiz=2884) 36.7 C FIO2 (BEAKER) (test kecp=4363) 60.0 % POTASSIUM-STAT [id number] 12:01:00 Test Item Value Reference Range Comments POTASSIUM (BEAKER) (test qhxe=876) 3.0 meq/L 3.6-5.5 GLUCOSE-STAT [id number] 12:01:00 Test Item Value Reference Range Comments GLUCOSE RANDOM (BEAKER) (test duoj=595) 139 mg/dL 70-110 BLOOD GAS, [id number] 10:42:00 Test Item Value Reference Range Comments PH ARTERIAL (BEAKER) (test cheb=877) 7.39 7.35-7.45 PCO2 ARTERIAL (BEAKER) (test yjee=214) 45 mmHg 35-45 PO2 ARTERIAL (BEAKER) (test ydmv=692) 260 mmHg 80-90 O2 SATURATION ARTERIAL (BEAKER) (test cdwm=918) 99.6 % 96.0-97.0 HCO3 ARTERIAL (BEAKER) (test kbde=687) 26 mmol/L 21-29 BASE EXCESS ARTERIAL (BEAKER) (test ciws=934) 0.7 mmol/L -2.0-3.0 PATIENT TEMPERATURE (BEAKER) (test mrpu=7660) 36.7 C FIO2 (BEAKER) (test vbyp=3160) 50.0 % POTASSIUM-STAT [id number] 10:42:00 Test Item Value Reference Range Comments POTASSIUM (BEAKER) (test ilpo=645) 3.1 meq/L 3.6-5.5 GLUCOSE-STAT [id number] 10:42:00 Test Item Value Reference Range Comments GLUCOSE RANDOM (BEAKER) (test trdt=078) 139 mg/dL 70-110 CALCIUM, [id number] 10:41:00 Test Item Value Reference Range Comments CALCIUM IONIZED (BEAKER) (test hdar=712) 1.27 mmol/L 1.12-1.27 PH, BLOOD (BEAKER) (test emly=5876) 7.38 SODIUM NA-STAT [id number] 10:40:00 Test Item Value Reference Range Comments SODIUM (BEAKER) (test xpuv=067) 141 meq/L 135-148 HGB/HCT (H&H) - STAT [id number] 10:40:00 Test Item Value Reference Range Comments HEMOGLOBIN (BEAKER) (test drkz=705) 13.7 g/dL 12.0-15.0 HEMATOCRIT (BEAKER) (test quqj=916) 40.0 % 36.0-45.0 BLOOD GAS, [id number] 09:53:00 Test Item Value Reference Range Comments PH ARTERIAL (BEAKER) (test xeho=431) 7.45 7.35-7.45 PCO2 ARTERIAL (BEAKER) (test davs=708) 38 mmHg 35-45 PO2 ARTERIAL (BEAKER) (test gjbn=104) 187 mmHg 80-90 O2 SATURATION ARTERIAL (BEAKER) (test wkey=919) 99.4 % 96.0-97.0 HCO3 ARTERIAL (BEAKER) (test puzt=693) 26 mmol/L 21-29 BASE EXCESS ARTERIAL (BEAKER) (test jrpl=367) 1.7 mmol/L -2.0-3.0 PATIENT TEMPERATURE (BEAKER) (test kboe=3522) 36.0 C FIO2 (BEAKER) (test cztu=3843) 50.0 % POTASSIUM-STAT [id number] 09:53:00 Test Item Value Reference Range Comments POTASSIUM (BEAKER) (test nlgv=364) 3.0 meq/L 3.6-5.5 GLUCOSE-STAT [id number] 09:53:00 Test Item Value Reference Range Comments GLUCOSE RANDOM (BEAKER) (test vsmm=198) 135 mg/dL 70-110 CALCIUM, [id number] 09:53:00 Test Item Value Reference Range Comments CALCIUM IONIZED (BEAKER) (test hwvn=493) 1.01 mmol/L 1.12-1.27 PH, BLOOD (BEAKER) (test ycpb=5978) 7.43 SODIUM NA-STAT [id number] 09:51:00 Test Item Value Reference Range Comments SODIUM (BEAKER) (test bfhm=898) 137 meq/L 135-148 HGB/HCT (H&H) - STAT [id number] 09:51:00 Test Item Value Reference Range Comments HEMOGLOBIN (BEAKER) (test ndgw=469) 14.1 g/dL 12.0-15.0 HEMATOCRIT (BEAKER) (test cmbq=319) 41.0 % 36.0-45.0 BLOOD GAS, [id number] 08:48:00 Test Item Value Reference Range Comments PH ARTERIAL (BEAKER) (test bylz=575) 7.43 7.35-7.45 PCO2 ARTERIAL (BEAKER) (test lzbv=378) 47 mmHg 35-45 PO2 ARTERIAL (BEAKER) (test ihou=123) 481 mmHg 80-90 O2 SATURATION ARTERIAL (BEAKER) (test bomb=956) 99.9 % 96.0-97.0 HCO3 ARTERIAL (BEAKER) (test tifp=363) 31 mmol/L 21-29 BASE EXCESS ARTERIAL (BEAKER) (test luwq=097) 5.1 mmol/L -2.0-3.0 PATIENT TEMPERATURE (BEAKER) (test stga=1070) 36.5 C FIO2 (BEAKER) (test ygrm=9733) 100.0 % POTASSIUM-STAT [id number] 08:48:00 Test Item Value Reference Range Comments POTASSIUM (BEAKER) (test vdzw=561) 3.1 meq/L 3.6-5.5 GLUCOSE-STAT [id number] 08:48:00 Test Item Value Reference Range Comments GLUCOSE RANDOM (BEAKER) (test bpsg=459) 116 mg/dL 70-110 HGB/HCT (H&H) - STAT [id number] 08:48:00 Test Item Value Reference Range Comments HEMOGLOBIN (BEAKER) (test ydem=068) 15.5 g/dL 12.0-15.0 HEMATOCRIT (BEAKER) (test svsk=972) 46.0 % 36.0-45.0 CALCIUM, [id number] 08:47:00 Test Item Value Reference Range Comments CALCIUM IONIZED (BEAKER) (test opxe=950) 1.12 mmol/L 1.12-1.27 PH, BLOOD (BEAKER) (test hhvc=5155) 7.42 SODIUM NA-STAT [id number] 08:46:00 Test Item Value Reference Range Comments SODIUM (BEAKER) (test brlf=821) 141 meq/L 135-148 POCT-GLUCOSE [id number] 07:58:00 Test Item Value Reference Range Comments POC-GLUCOSE METER (BEAKER) 105 mg/dL 70-110 TESTED AT [facility] [address] (test vlbi=9458) [place] [address] [id number] 15:19:00 Test Item Value Reference Range Comments PARTIAL THROMBOPLASTIN TIME (BEAKER) (test 27.8 seconds 22.5-36.0 hhif=007) PROTHROMBIN [id number] 15:18:00 Test Item Value Reference Range Comments PROTIME (BEAKER) (test vqyc=005) 14.4 seconds 11.7-14.7 INR (BEAKER) (test nfeo=441) 1.1 <=5.9 RECOMMENDED COUMADIN/WARFARIN INR THERAPY RANGESSTANDARD DOSE: 2.0 - 3.0 Includes: PROPHYLAXIS forvenous thrombosis, systemic embolization; TREATMENT for venous thrombosis and/or pulmonary embolus.HIGH RISK: Target INR is 2.5-3.5 for patients with mechanical heart valves.COMPREHENSIVE METABOLIC [id number] 15:10:00 Test Item Value Reference Range Comments TOTAL PROTEIN (BEAKER) 7.7 gm/dL 6.0-8.3 (test atbp=501) ALBUMIN (BEAKER) (test 4.1 g/dL 3.5-5.0 leis=8790) ALKALINE PHOSPHATASE 40 U/L 40-150 (BEAKER) (test hekp=648) BILIRUBIN TOTAL (BEAKER) 0.8 mg/dL 0.2-1.2 (test vfne=964) SODIUM (BEAKER) (test 143 meq/L 136-145 iybj=093) POTASSIUM (BEAKER) (test 4.1 meq/L 3.5-5.1 okau=344) CHLORIDE (BEAKER) (test 101 meq/L 98-107 tfvh=452) CO2 (BEAKER) (test 30 meq/L 22-29 tynj=714) BLOOD UREA NITROGEN 31 mg/dL 7-21 (BEAKER) (test liyk=525) CREATININE (BEAKER) (test 1.17 mg/dL 0.57-1.25 zloo=571) GLUCOSE RANDOM (BEAKER) 142 mg/dL 70-105 (test ztsi=041) CALCIUM (BEAKER) (test 10.5 mg/dL 8.4-10.2 mazj=259) AST (SGOT) (BEAKER) (test 28 U/L 5-34 qxup=732) ALT (SGPT) (BEAKER) (test 18 U/L 6-55 nkmt=501) EGFR (BEAKER) (test 44 mL/min/1.73 sq m ESTIMATED GFR IS NOT lkua=6163) ACCURATE CREATININE CLEARANCE IN PREDICTING GLOMERULAR FILTRATION RATE. ESTIMATED GFR IS NOT APPLICABLE FOR DIALYSIS PATIENTS. RAD, CHEST, 2 [id number] 14:44:00Reason for exam:->preopFINAL REPORT Chest two views [...] MDReport Verified Date/Time: 03/11/2018 14:44:31 Reading Location: [facility] Consult Reading Room CBC W/PLT COUNT & AUTO [id number] 14:43:00 Test Item Value Reference Range Comments WHITE BLOOD CELL COUNT (BEAKER) (test amvm=818) 7.8 K/ L 3.5-10.5 RED BLOOD CELL COUNT (BEAKER) (test fvot=489) 5.48 M/ L 3.93-5.22 HEMOGLOBIN (BEAKER) (test wvtm=542) 15.6 GM/DL 11.2-15.7 HEMATOCRIT (BEAKER) (test pcpf=833) 51.3 % 34.1-44.9 MEAN CORPUSCULAR VOLUME (BEAKER) (test cfre=266) 93.6 fL 79.4-94.8 MEAN CORPUSCULAR HEMOGLOBIN (BEAKER) (test 28.5 pg 25.6-32.2 whwp=842) MEAN CORPUSCULAR HEMOGLOBIN CONC (BEAKER) (test 30.4 GM/DL 32.2-35.5 ssuu=965) RED CELL DISTRIBUTION WIDTH (BEAKER) (test 14.2 % 11.7-14.4 msvj=917) PLATELET COUNT (BEAKER) (test exkh=948) 251 K/CU MM 150-450 MEAN PLATELET VOLUME (BEAKER) (test hbuo=938) 11.4 fL 9.4-12.3 NUCLEATED RED BLOOD CELLS (BEAKER) (test 0 /100 WBC 0-0 esoq=643) NEUTROPHILS RELATIVE PERCENT (BEAKER) (test 85 % cxkj=560) LYMPHOCYTES RELATIVE PERCENT (BEAKER) (test 10 % zgms=293) MONOCYTES RELATIVE PERCENT (BEAKER) (test 3 % xupv=202) EOSINOPHILS RELATIVE PERCENT (BEAKER) (test 0 % exiu=962) BASOPHILS RELATIVE PERCENT (BEAKER) (test 1 % qnjb=334) NEUTROPHILS ABSOLUTE COUNT (BEAKER) (test 6.61 K/ L 1.56-6.13 fkrq=859) LYMPHOCYTES ABSOLUTE COUNT (BEAKER) (test 0.79 K/ L 1.18-3.74 frcx=800) MONOCYTES ABSOLUTE COUNT (BEAKER) (test 0.26 K/ L 0.24-0.36 zoek=984) EOSINOPHILS ABSOLUTE COUNT (BEAKER) (test 0.01 K/ L 0.04-0.36 guhp=138) BASOPHILS ABSOLUTE COUNT (BEAKER) (test 0.07 K/ L 0.01-0.08 tjby=710) IMMATURE GRANULOCYTES-RELATIVE PERCENT (BEAKER) 1 % 0-1 (test hcpd=3450)
--- NOTE | 2019-11-05 20:12 | RAD REPORT ---
EXAM DESCRIPTION: RAD - Chest Single View - 11/05/2019 7:41 pm CLINICAL HISTORY: SOB Chest pain. COMPARISON: Chest Single View dated 07/17/2019; Chest Single View dated 06/20/2019; Chest Single View dated 06/13/2019; Chest Single View dated 01/24/2019 FINDINGS: Portable technique limits examination quality. The lungs are grossly clear. The heart is mildly enlarged in size with a multilead pacer device prese nt. No displaced fractures. IMPRESSION: No acute intrathoracic process suspected.
[2019-11-05 20:38] LABS: Absolute Lymphocytes (CBC) 1.3 K/uL (0.7-4.9); Basophils % 0.9 % (0-1.3); Hematocrit 48.8 % (36.0-45.0); Lymphocytes % 18.6 % (15.3-44.8); MPV 10.2 fL (7.6-11.3); RBC Red Blood Cell Count 5.16 M/uL (3.86-4.86)
[2019-11-05 20:48] LABS: Protime INR 0.96
[2019-11-05 20:54] LABS: Albumin 3.4 g/dL (3.4-5.0); Bilirubin Direct 0.2 mg/dL (0-0.2); Bilirubin Total 0.4 mg/dL (0.2-1.0); CKMB Creatine Kinase MB 1.5 ng/mL (0.3-3.6); Magnesium 2.3 mg/dL (1.8-2.4); Protein, Total 7.4 g/dL (6.4-8.2); Troponin (Emerg Dept Use Only) 0.14 ng/mL (0.0-0.045)
--- NOTE | 2019-11-05 21:26 | EDPHYS ---
Physician Documentation [facility] Name: Fanny Arceo Age: 83 yrs Sex: Female : 1935 Arrival Date: 11/05/2019 Time: 18:58 Bed 30 Private MD: Sherry Stock R ED Physician Rhett Aguilera HPI: 11/05 19:36 This 83 yrs old Female presents to ER via Wheelchair with complaints of tw4 Breathing Difficulty. 19:36 The patient has shortness of breath at rest. tw4 19:37 Onset: The symptoms/episode began/occurred 1 week(s) ago. Duration: The symptoms are tw4 continuous, and are steadily getting worse. The patient's shortness of breath is aggravated by exertion, is alleviated by nebulizer treatment, rest, application of supplemental oxygen. Associated signs and symptoms: Pertinent positives: non-productive cough. The patient has not experienced similar symptoms in the past. Historical: - Allergies: 19:14 Atenolol; ca1 19:14 Morphine; ca1 19:14 Simvastatin; ca1 19:14 Sulfa (Sulfonamide Antibiotics); ca1 19:14 Ticlopidine HCl; ca1 - PMHx: 19:14 Atrial Fib; CAD; CHF; chronic renal failure; Clot to right arm; COPD; Depression; ca1 Diabetes - IDDM; GERD; High Cholesterol; Hyperlipidemia; Hypertension; Hypothyroidism; neuropathy; Sleep Apnea; - PSHx: 19:14 Hysterectomy; Cholecystectomy; Appendectomy; Heart stents; pacemaker; Aneurysm of Leg ca1 Artery; - Immunization history:: Adult Immunizations up to date, Pneumococcal vaccine is up to date, Flu vaccine is up to date. - Coronavirus screen:: The patient has NOT traveled to [place], [place], or [place] in the past 14 days. The patient has NOT had contact with known/suspected case of Coronavirus?. - Social history:: Smoking status: Patient denies any tobacco usage or history of. - Ebola Screening: : Patient negative for fever greater than or equal to 101.5 degrees Fahrenheit, and additional compatible Ebola Virus Disease symptoms Patient denies exposure to infectious person Patient denies travel to an Ebola-affected area in the 21 days before illness onset No symptoms or risks identified at this time. ROS: 19:37 Constitutional: Negative for fever, chills, and weight loss, Eyes: Negative for injury, tw4 pain, redness, and discharge, Neck: Negative for injury, pain, and swelling, Cardiovascular: Negative for chest pain, palpitations, and edema, Abdomen/GI: Negative for abdominal pain, nausea, vomiting, diarrhea, and constipation, Back: Negative for injury and pain, MS/Extremity: Negative for injury and deformity, Skin: Negative for injury, rash, and discoloration, Neuro: Negative for headache, weakness, numbness, tingling, and seizure. 19:37 Respiratory: Positive for cough, shortness of breath, Negative for dyspnea on exertion, hemoptysis, orthopnea, pleurisy. Exam: 19:37 Head/Face: Normocephalic, atraumatic. Eyes: Pupils equal round and reactive to light, tw4 extra-ocular motions intact. Lids and lashes normal. Conjunctiva and sclera are non-icteric and not injected. Cornea within normal limits. Periorbital areas with no swelling, redness, or edema. Chest/axilla: Normal chest wall appearance and motion. Nontender with no deformity. No lesions are appreciated. Cardiovascular: Regular rate and rhythm with a normal S1 and S2. No gallops, murmurs, or rubs. Normal PMI, no JVD. No pulse deficits. 19:37 Abdomen/GI: Soft, non-tender, with normal bowel sounds. No distension or tympany. No guarding or rebound. No evidence of tenderness throughout. Back: No spinal tenderness. No costovertebral tenderness. Full range of motion. MS/ Extremity: Pulses equal, no cyanosis. Neurovascular intact. Full, normal range of motion. Neuro: Awake and alert, GCS 15, oriented to person, place, time, and situation. Cranial nerves II-XII grossly intact. Motor strength 5/5 in all extremities. Sensory grossly intact. Cerebellar exam normal. Normal gait. 19:37 Constitutional: The patient appears alert, awake, in obvious distress, mildly distressed. 19:37 Respiratory: mild respiratory distress is noted, Respirations: labored breathing, that is mild, Breath sounds: decreased breath sounds. Vital Signs: 19:14 BP 127 / 60; Pulse 70; Resp 20 S; Temp 98.3(O); Pulse Ox 97% on 2 lpm NC; Weight 89.36 ca1 kg (R); Height 5 ft. 6 in. (167.64 cm) (R); Pain 0/10; 20:30 BP 124 / 76; Pulse 68; Resp 70; Pulse Ox 97% on 2 lpm NC; Pain 0/10; ls4 21:00 BP 120 / 72; Pulse 71; Resp 22; Pulse Ox 3 lpm ; Pain 0/10; ls4 23:00 BP 116 / 71; Pulse 70; Resp 14; Temp 98; Pulse Ox 97% on R/A; Pain 3/10; ls4 23:45 BP 114 / 70; Pulse 70; Resp 20; Pulse Ox 97% 3 lpm ; Pain 3/10; ls4 19:14 Body Mass Index 31.80 (89.36 kg, 167.64 cm) ca1 MDM: 19:35 Patient medically screened. 11/06 06:33 Differential diagnosis: Anemia asthma, reactive airway disease. Antibiotic tw4 administration: Not indicated. Data reviewed: vital signs, nurses notes. Data reviewed: lab test result(s), cardiac enzymes, CBC, hepatic panel, EKG, radiologic studies, plain films. Data interpreted: Pulse oximetry: Interpretation: normal. Counseling: I had a detailed discussion with the patient and/or guardian regarding: the historical points, exam findings, and any diagnostic results supporting the discharge/admit diagnosis. Physician consultation: Sheridan Cedillo MD regarding admission, to the telemetry unit. patient's condition, and will see patient. 11/05 19:12 Order name: Blood Culture Adult (2) 11/05 19:12 Order name: BMP; Complete Time: 21:14 11/05 21:14 Interpretation: Normal except: CO2 36; GFR 42. 11/05 19:12 Order name: CBC with Diff; Complete Time: 21:14 11/05 21:14 Interpretation: Normal except: RBC 5.16; HGB 15.6; HCT 48.8; MCV 94.4. 11/05 19:12 Order name: Ckmb; Complete Time: 21:14 11/05 21:14 Interpretation: Within normal limits: CKMB 1.5. 11/05 19:12 Order name: CPK; Complete Time: 21:14 11/05 21:14 Interpretation: Within normal limits: CPK 53. 11/05 19:12 Order name: D-Dimer; Complete Time: 21:14 11/05 21:14 Interpretation: Normal except: D-DIMER 2683. 11/05 19:12 Order name: Hepatic Function; Complete Time: 21:14 11/05 21:14 Interpretation: Normal except: ALK 35; GLOB 4.0; A/G 0.9. 11/05 19:12 Order name: Lipase; Complete Time: 21:14 11/05 21:15 Interpretation: Within normal limits: LIP 257. 11/05 19:12 Order name: Magnesium; Complete Time: 21:14 11/05 19:12 Order name: NT PRO-BNP; Complete Time: 21:14 11/05 21:14 Interpretation: Normal except: NT PRO-BNP 2459. 11/05 19:12 Order name: PT-INR; Complete Time: 21:14 11/05 19:12 Order name: Ptt, Activated; Complete Time: 21:14 11/05 19:12 Order name: Troponin (emerg Dept Use Only); Complete Time: 21:14 11/05 21:14 Interpretation: Normal except: TROPED 0.14. 11/05 22:02 Order name: CBC with Automated Diff EDMS 11/05 19:12 Order name: XRAY CXR (1 view); Complete Time: 21:14 11/05 22:02 Order name: CBC with Automated Diff EDMS 11/05 22:02 Order name: Comprehensive Metabolic Panel EDMS 11/05 22:02 Order name: Comprehensive Metabolic Panel EDMS 11/05 22:02 Order name: Magnesium EDMS 11/05 22:02 Order name: Magnesium EDMS 11/05 22:02 Order name: Phosphorus EDMS 11/05 22:02 Order name: Phosphorus EDMS 11/05 22:02 Order name: NT PRO-BNP EDMS 11/05 22:02 Order name: NT PRO-BNP EDMS 11/05 22:02 Order name: Troponin I EDMS 11/05 22:02 Order name: Troponin I EDMS 11/05 22:03 Order name: Troponin I EDMS 11/05 19:12 Order name: Call for Old EKG 11/05 19:12 Order name: Call for Old Records 11/05 19:12 Order name: EKG; Complete Time: 19:13 [facility] 11/05 19:12 Order name: Cardiac monitoring; Complete Time: 19:41 11/05 19:12 Order name: EKG - Nurse/Tech; Complete Time: 19:41 11/05 19:12 Order name: IV Saline Lock; Complete Time: 19:41 11/05 19:12 Order name: Labs collected and sent; Complete Time: 19:42 11/05 19:12 Order name: O2 Per Protocol; Complete Time: 19:42 11/05 19:12 Order name: O2 Sat Monitoring; Complete Time: 19:42 11/05 22:02 Order name: CONS Physician Consult [facility] 11/05 22:02 Order name: Heart Healthy [facility] 11/05 22:02 Order name: EKG Electrocardiogram [facility] 11/05 22:02 Order name: EKG Electrocardiogram EDKS Administered Medications: 11/05 22:21 Drug: SOLU-Medrol 125 mg Route: IVP; Site: left forearm; ls4 22:22 Drug: Lasix 20 mg Route: IVP; Site: left forearm; ls4 22:23 Follow up: Response: No adverse reaction; Marked relief of symptoms 4 22:44 Not Given (Patient Refused): DuoNeb (3:1) (2.5 mg - 0.5 mg) 3 ml Nebulizer once ls4 Disposition: 11/05/19 21:25 Hospitalization ordered by Sheridan Cedillo for Inpatient Admission. Preliminary diagnosis are Chronic obstructive pulmonary disease with (acute) exacerbation, Hypoxemia. - Bed requested for Telemetry/MedSurg (Inpatient). - Status is Inpatient Admission. bb - Condition is Stable. - Problem is an ongoing problem. - Symptoms are unchanged. UTI on Admission? No Signatures: Dispatcher [employer] [facility] Ashley Norman RN RN Cristina Bryant RN Rhett Reyez MD MD tw4 Nadira Doran RN RN ls4 Staci Villalobos RN RN ca1 Corrections: (The following items were deleted from the chart) 22:45 21:25 Hospitalization Ordered by Sheridan Cedillo MD for Inpatient Admission. Preliminary diagnosis is Chronic obstructive pulmonary disease with (acute) exacerbation; Hypoxemia. Bed requested for Telemetry/MedSurg (Inpatient). Status is Inpatient Admission. Condition is Stable. Problem is an ongoing problem. Symptoms are unchanged. UTI on Admission? No. tw4 23:46 22:45 11/05/2019 21:25 Hospitalization Ordered by Sheridan Cedillo MD for Inpatient ls4 Admission. Preliminary diagnosis is Chronic obstructive pulmonary disease with (acute) exacerbation; Hypoxemia. Bed requested for [facility] ER HOLD. Status is Inpatient Admission. Condition is Stable. Problem is an ongoing problem. Symptoms are unchanged. UTI on Admission? No. dw 11/06 06:01 11/05 23:46 11/05/2019 21:25 Hospitalization Ordered by Sheridan Cedillo MD for Inpatient dw Admission. Preliminary diagnosis is Chronic obstructive pulmonary disease with (acute) exacerbation; Hypoxemia. Bed requested for [facility] ER HOLD. Status is Inpatient Admission. Condition is Stable. Problem is an ongoing problem. Symptoms are unchanged. UTI on Admission? No. ls4 11/06 07:42 06:01 11/05/2019 21:25 Hospitalization Ordered by Sheridan Cedillo MD for Inpatient bb Admission. Preliminary diagnosis is Chronic obstructive pulmonary disease with (acute) exacerbation; Hypoxemia. Bed requested for Telemetry/MedSurg (Inpatient). Status is Inpatient Admission. Condition is Stable. Problem is an ongoing problem. Symptoms are unchanged. UTI on Admission? No. dw
--- NOTE | 2019-11-05 21:26 | ER ---
Nurse's Notes [facility] Name: Fanny Arceo Age: 83 yrs Sex: Female : 1935 Arrival Date: 11/05/2019 Time: 18:58 Bed 30 Private MD: Sherry Stock R Diagnosis: Chronic obstructive pulmonary disease with (acute) exacerbation;Hypoxemia Presentation: 11/05 19:10 Presenting complaint: Patient states: SOB that has gotten worse for about a week now. ca1 Pt has home O2 at 2-3LPM continuous. SOB worse on exertion. Denies fever, cough and congestion. Reports Nausea at this time. Transition of care: patient was not received from another setting of care. Onset of symptoms was November 05, 2019. Risk Assessment: Do you want to hurt yourself or someone else? Patient reports no desire to harm self or others. Initial Sepsis Screen: Does the patient meet any 2 criteria? No. Patient's initial sepsis screen is negative. Does the patient have a suspected source of infection? No. Patient's initial sepsis screen is negative. Care prior to arrival: None. 19:10 Method Of Arrival: Wheelchair ca1 19:10 Acuity: JESSE 3 ca1 Triage Assessment: 19:15 General: Appears distressed, uncomfortable, Behavior is calm, cooperative. ls4 19:15 Neuro: No deficits noted. Cardiovascular: Reports fatigue, shortness of breath, Denies ls4 chest pain, Capillary refill < 3 seconds Patient's skin is warm and dry. Edema is 2+ to left ankle and right ankle Rhythm is atrial pacer Chest pain is denied. Respiratory: Reports shortness of breath at rest on exertion labored breathing Respiratory effort is pursed lip, shallow, Respiratory pattern is tachypnea Breath sounds are diminished bilaterally. Onset: The symptoms/episode began/occurred gradually, the patient has moderate shortness of breath. Historical: - Allergies: 19:14 Atenolol; ca1 19:14 Morphine; ca1 19:14 Simvastatin; ca1 19:14 Sulfa (Sulfonamide Antibiotics); ca1 19:14 Ticlopidine HCl; ca1 - PMHx: 19:14 Atrial Fib; CAD; CHF; chronic renal failure; Clot to right arm; COPD; Depression; ca1 Diabetes - IDDM; GERD; High Cholesterol; Hyperlipidemia; Hypertension; Hypothyroidism; neuropathy; Sleep Apnea; - PSHx: 19:14 Hysterectomy; Cholecystectomy; Appendectomy; Heart stents; pacemaker; Aneurysm of Leg ca1 Artery; - Immunization history:: Adult Immunizations up to date, Pneumococcal vaccine is up to date, Flu vaccine is up to date. - Coronavirus screen:: The patient has NOT traveled to [place], [place], or [place] in the past 14 days. The patient has NOT had contact with known/suspected case of Coronavirus?. - Social history:: Smoking status: Patient denies any tobacco usage or history of. - Ebola Screening: : Patient negative for fever greater than or equal to 101.5 degrees Fahrenheit, and additional compatible Ebola Virus Disease symptoms Patient denies exposure to infectious person Patient denies travel to an Ebola-affected area in the 21 days before illness onset No symptoms or risks identified at this time. Screenin:15 Abuse screen: Denies threats or abuse. Denies injuries from another. Nutritional ls4 screening: No deficits noted. 19:15 Tuberculosis screening: No symptoms or risk factors identified. Fall Risk Total Pugh ls4 Fall Scale indicates Low Risk Score (25-44 pts). Fall prevention measures have been instituted. Side Rails Up X 2 Placed close to Nursing Station Frequent Obs/Assesments occuring Family Present and informed to notify staff if they need to leave bedside As available Patient and Family Educated on Fall Prevention Program and strategies. Assessment: 20:45 Pain: Denies pain. Cardiovascular: Denies chest pain, Capillary refill < 3 seconds ls4 Patient's skin is warm and dry. Rhythm is regular. Respiratory: Airway is patent Respiratory effort is unlabored, pursed lip, shallow, Respiratory pattern is regular, Breath sounds are diminished bilaterally. GI: Abdomen is non-distended, Bowel sounds present X 4 quads. Abd is soft and non tender X 4 quads. :. Vital Signs: 19:14 BP 127 / 60; Pulse 70; Resp 20 S; Temp 98.3(O); Pulse Ox 97% on 2 lpm NC; Weight 89.36 ca1 kg (R); Height 5 ft. 6 in. (167.64 cm) (R); Pain 0/10; 20:30 BP 124 / 76; Pulse 68; Resp 70; Pulse Ox 97% on 2 lpm NC; Pain 0/10; ls4 21:00 BP 120 / 72; Pulse 71; Resp 22; Pulse Ox 3 lpm ; Pain 0/10; ls4 23:00 BP 116 / 71; Pulse 70; Resp 14; Temp 98; Pulse Ox 97% on R/A; Pain 3/10; ls4 23:45 BP 114 / 70; Pulse 70; Resp 20; Pulse Ox 97% 3 lpm ; Pain 3/10; ls4 19:14 Body Mass Index 31.80 (89.36 kg, 167.64 cm) ca1 ED Course: 18:58 Patient arrived in ED. as 18:58 Sherry Stock MD is Private Physician. as 19:11 Rhett Aguilera MD is Attending Physician. tw4 19:12 Triage completed. ca1 19:14 Arm band placed on right wrist. ca1 19:15 Patient has correct armband on for positive identification. Allergy band placed. Placed ls4 in gown. Bed in low position. Call light in reach. Side rails up X2. equipment monitor phototypesetting on. Pulse ox on. NIBP on. Warm blanket given. Pillow given. Verbal reassurance given. Diet: Patient is NPO. 19:15 No provider procedures requiring assistance completed. Inserted saline lock: 24 gauge ls4 in left wrist, using aseptic technique. Oxygen administration via nasal cannula \T\ 3L/min. 19:40 Nadira Doran, RN is Primary Nurse. ls4 19:42 XRAY CXR (1 view) In Process Unspecified. EDMS 20:53 Notified ED physician of a critical lab result(s). D-Dimer of 2683 Dr Aguilera notified. bb 21:24 Sheridan Cedillo MD is Hospitalizing Provider. tw4 23:48 Primary Nurse role handed off by Nadira Doran, RN bb 23:48 Nadira Doran, RN is Primary Nurse. ls4 Administered Medications: 22:21 Drug: SOLU-Medrol 125 mg Route: IVP; Site: left forearm; ls4 22:22 Drug: Lasix 20 mg Route: IVP; Site: left forearm; ls4 22:23 Follow up: Response: No adverse reaction; Marked relief of symptoms ls4 22:44 Not Given (Patient Refused): DuoNeb (3:1) (2.5 mg - 0.5 mg) 3 ml Nebulizer once ls4 Outcome: 21:25 Decision to Hospitalize by Provider. tw4 23:46 Admitted to ER Hold. Please see [facility] for further documentation. ls4 23:46 Condition: stable 23:46 Discharge instructions given to patient, family, Instructed on the need for admit, Demonstrated understanding of instructions, follow-up care. 23:46 Patient left the ED. bb 11/06 07:42 Patient left the ED. bb Signatures: Dispatcher [employer] Chey Vargas Brenda, RN RN bb Rhett Aguilera MD MD tw4 Nadira Doran RN RN ls4 Staci Villalobos RN RN ca1 Corrections: (The following items were deleted from the chart) 11/05 23:49 23:46 Patient left the ED. ls4 bb
[2019-11-05] MEDS ORDERED: ONDANSETRON 4 MG/2 ML VIAL IV PRN (21:57)
[2019-11-05] MEDS ORDERED: ACETAMINOPHEN 500 MG TAB PO PRN (21:57)
[2019-11-05] MEDS: CEFTRIAXONE/SWI 1gm 1 GM/10 ML SYR IV SCH (23:00)
[2019-11-06] MEDS: FUROSEMIDE 40 MG/4 ML VIAL IV SCH ×3 (01:00→16:56)
[2019-11-06] MEDS ORDERED: ALBUTEROL 2.5 MG/3 ML NEB SOL ONE (01:48)
[2019-11-06] MEDS ORDERED: IPRATROPIUM BROM 0.5MG/2.5ML ONE (01:48)
[2019-11-06] MEDS: ALBUTEROL 2.5 MG/3 ML NEB SOL NEB SCH ×4 (02:00→20:45)
[2019-11-06] MEDS: IPRATROPIUM BROM 0.5MG/2.5ML NEB SCH ×4 (02:00→20:45)
[2019-11-06 05:59] LABS: Absolute Lymphocytes (CBC) 0.6 K/uL (0.7-4.9); Basophils % 0.4 % (0-1.3); Hematocrit 47.8 % (36.0-45.0); Lymphocytes % 8.7 % (15.3-44.8); MPV 9.9 fL (7.6-11.3); RBC Red Blood Cell Count 5.11 M/uL (3.86-4.86)
[2019-11-06] MEDS: METHYLPREDNISOLONE 40 MG INJ IV SCH ×4 (06:00→17:00)
[2019-11-06 06:17] LABS: Albumin 3.3 g/dL (3.4-5.0); Bilirubin Total 0.8 mg/dL (0.2-1.0); Magnesium 2.3 mg/dL (1.8-2.4); Phosphorus 2.8 mg/dL (2.5-4.9); Protein, Total 7.6 g/dL (6.4-8.2); Troponin I 0.14 ng/mL (0.0-0.045)
[2019-11-06] MEDS ORDERED: METHYLPREDNISOLONE 40 MG INJ ONE (06:41)
--- NOTE | 2019-11-06 06:46 | EKG ---
Test Date: 2019-11-05 Test Time: 21:19:47 Wind Tunnel Engineer: ASIMT MEASUREMENT RESULTS: Intervals: Rate: 70 [place]: 84 QRSD: 166 QT: 444 QTc: 479 [place]: P: [place]: 84 QRS: -82 T: 98 INTERPRETIVE STATEMENTS: Electronic ventricular pacemaker Compared to ECG 07/20/2019 16:12:46 No significant changes Electronically Signed On 11-06-19 06:45:17 HEEL FINISHER by Emir Armstrong
[2019-11-06] MEDS: ASPIRIN EC 81 MG TAB PO SCH (07:58)
[2019-11-06] MEDS: LEVOTHYROXINE SOD 0.125 MG TAB PO SCH (07:58)
[2019-11-06] MEDS: POTASSIUM 25 MEQ EFFERV TAB PO SCH (07:59)
[2019-11-06] MEDS: METOPROLOL TAR 50 MG TAB PO SCH ×2 (07:59→21:36)
[2019-11-06] MEDS: TRAMADOL HCL 50 MG TAB PO SCH ×2 (07:59→21:36)
[2019-11-06] MEDS: CEFTRIAXONE/SWI 1gm 1 GM/10 ML SYR IV SCH ×2 (08:00→21:36)
[2019-11-06] MEDS: ENOXAPARIN 40 MG/0.4 ML SQ SCH (08:00)
[2019-11-06 08:02] LABS: Blood Morphology Comment NOT SEEN (NOT SEEN); Platelet Estimate ADEQ; Urine White Blood Cell Casts OK
[2019-11-06] MEDS: ARFORMOTEROL TARTRATE 15 MCG/2 ML VIAL.NEB NEB SCH ×2 (09:15→20:45)
[2019-11-06] MEDS: GABAPENTIN 300 MG CAP PO SCH ×2 (10:30→21:36)
--- NOTE | 2019-11-06 11:16 | EKG ---
Test Date: 2019-11-06 Test Time: 10:03:46 Secretary Administrative Assistant: GIOVANNA MEASUREMENT RESULTS: Intervals: Rate: 72 MS: 104 QRSD: 170 QT: 460 QTc: 503 [place]: P: MS: 104 QRS: -84 T: 95 INTERPRETIVE STATEMENTS: Sinus rhythm with short MS Left axis deviation Left ventricular hypertrophy with QRS widening and repolarization abnormality Inferior infarct, age undetermined Anterolateral infarct, age undetermined Abnormal ECG Compared to ECG 11/05/2019 21:19:47 Short MS interval now present Left-axis deviation now present Left ventricular hypertrophy now present Early repolarization now present Myocardial infarct finding now present Ventricular-paced complex(es) or rhythm no longer present Electronically Signed On 11-06-19 11:15:52 INTEGRITY ANALYST by Amadeo Jin
--- NOTE | 2019-11-06 11:30 | P.HP ---
Certification for Inpatient Patient admitted to: Inpatient With expected LOS: >2 Midnights Patient will require the following post-hospital care: None Practitioner: I am a practitioner with admitting privileges, knowledge of patient current condition, hospital course, and medical plan of care. Services: Services provided to patient in accordance with Admission requirements found in Title 42 Section 412.3 of the Code of Federal Regulations Patient History Date of Service: 11/05/19 Reason for admission: Respiratory distress. History of Present Illness: Patient is an 83-year-old female who came to the hospital with difficulty breathing. Patient was in the hospital 2 weeks ago with similar complaints. At that time she was felt to have a CHF exacerbation. He came into the emergency room for further evaluation. In the ER she was given nebs, steroids, and antibiotics. She was also gently diuresed. Patient is clinically started feeling much better. She states she has a longstanding history of CHF and COPD. She follows up with her pulmonary and civil transportation engineer regularly. She has some lower extremity edema which has resolved. At this time we will go ahead and admit her to the hospital and treat her with diuretics and her neb treatments. Hopefully will be able to discharge her home over the next 48-72 hours. She has had recurrent admissions for quite a while and we want to make sure she does not need to be readmitted going forward. Allergies morphine Allergy (Verified 02/20/18 12:54) Hives ticlopidine HCl [From Ticlid] Adverse Reaction (Verified 02/20/18 12:54) Hives/Rash Sulfa (Sulfonamid Allergy (Mild, Uncoded 01/24/19 21:31) Unknown Home Medications: Fenofibrate [Tricor*] 145 mg PO BEDTIME 10/08/17 Gabapentin [Neurontin] 600 mg PO BID 10/08/17 Aspirin 325 mg PO DAILY 02/09/18 Levothyroxine Sodium [Synthroid] 125 mcg PO DAILY 01/25/19 Albuterol Sulfate [Albuterol Sulfate 0.083% Neb Soln] 2.5 mg IH Q4H PRN Sertraline [Zoloft*] 50 mg PO BEDTIME 06/20/19 Losartan Potassium [Cozaar*] 100 mg PO DAILY 07/18/19 Amlodipine [Norvasc*] 5 mg PO BID #60 tab 07/21/19 Furosemide [Lasix*] 20 mg PO BIDL #60 tab 07/21/19 Spironolactone [Aldactone*] 25 mg PO DAILY #30 tab 07/21/19 Bimatoprost [Lumigan] 1 drop EACH EYE BEDTIME 11/06/19 Famotidine 1 tab PO DAILY 11/06/19 Insulin Detemir [Levemir Flextouch] 10 unit SQ DAILY 11/06/19 - Past Medical/Surgical History Has patient received pneumonia vaccine in the past: Yes Diabetic: Yes -: HTN -: Hyperlipidemia -: Diabetes mellitus type 2 -: COPD -: History of DVT/PE -: History of atrial fibrillation requiring pacemaker -: GERD -: Depression -: Hypothyroidism -: Arthritis -: History of esophageal stricture -: Chronic renal disease -: Cholecystectomy -: Appendectomy -: Hysterectomy -: PANCREATIC SX D/T MASS, no cancer noted -: cataract surgery -: "leg artery" aneurysm Psychosocial/ Personal History: The patient is a . She has 4 children. - Family History Brother Medical History: Seizures Mother Medical History: Heart disease Father Medical History: Hypertension, Stroke - Social History Smoking Status: Former smoker Alcohol use: No CD- Drugs: No Caffeine use: Yes Place of Residence: Home Review of Systems 10-point ROS is otherwise unremarkable Physical Examination - Vital Signs Temperature: 96.9 F Blood Pressure: 136/73 Pulse: 70 Respirations: 22 Pulse Ox (%): 96 - Physical Exam General: Alert, In no apparent distress, Oriented x3 HEENT: Atraumatic, PERRLA, Mucous membr. moist/pink, EOMI, Sclerae nonicteric Neck: Supple, 2+ carotid pulse no bruit, No LAD, Without JVD or thyroid abnormality Respiratory: Diminished, Crackles/rales, Expiratory wheezes Cardiovascular: Regular rate/rhythm, Normal S1 S2, No murmurs Gastrointestinal: Normal bowel sounds, Soft and benign, Non-distended, No tenderness Musculoskeletal: No clubbing, No tenderness, Swelling Integumentary: Tenderness/swelling Neurological: Normal speech, Normal strength at 5/5 x4 extr, Normal tone, Sensation intact, Cranial nerves 3-12 intact, Normal affect, Abnormal gait Lymphatics: No axilla or inguinal lymphadenopathy - Studies Laboratory Data (last 24 hrs) 11/05/19 20:16: PT 11.4, INR 0.96, APTT 25.6 11/05/19 20:16: WBC 6.9, Hgb 15.6 H, Hct 48.8 H, Plt Count 206 11/05/19 20:16: Sodium 143, Potassium 4.0, BUN 35 H, Creatinine 1.23, Glucose 107 H, Magnesium 2.3, Total Bilirubin 0.4, AST 21, ALT 15, Alkaline Phosphatase 35 L, Lipase 257 Microbiology Data (last 24 hrs): 11/05/19 20:16 Blood - Blood Anaerobic Blood Culture - Final 11/05/19 20:27 Blood - Blood Anaerobic Blood Culture - Final Assessment & Plan - Problems (Diagnosis) (1) Acute on chronic diastolic CHF (congestive heart failure) Onset Date: 02/11/18 Current Visit: No Status: Acute (2) COPD exacerbation Current Visit: No Status: Acute (3) Chronic atrial fibrillation Current Visit: No Status: Acute (4) Debility Current Visit: No Status: Acute (5) Renal insufficiency Onset Date: 10/11/17 Current Visit: No Status: Acute (6) CAD (coronary artery disease) Onset Date: 10/19/17 Current Visit: No Status: Chronic Qualifiers: (7) GERD (gastroesophageal reflux disease) Onset Date: 10/19/17 Current Visit: No Status: Chronic Qualifiers: (8) Obstructive sleep apnea Onset Date: 10/19/17 Current Visit: No Status: Chronic (9) PAD (peripheral artery disease) Onset Date: 03/29/18 Current Visit: No Status: Chronic (10) Pulmonary hypertension Onset Date: 10/19/17 Current Visit: No Status: Chronic (11) Type 2 diabetes mellitus without complications Onset Date: 10/11/17 Current Visit: No Status: Chronic Qualifiers: - Plan -review echocardiogram -we will start patient on a Beta heidi -Cardiology consultation -diuresis -Strict I's and O's -Repeat CXR -Daily weights -nebs, steroids, and antibiotics -O2 per protocol. -possible pulmonary consultation if symptoms do not improve -outpatient home health evaluation Discharge Plan: Home Plan to discharge in: Greater than 2 days - Advance Directives Does patient have a Living Will: Yes Does patient have a Durable POA for Healthcare: Yes - Code Status/Comfort Care Code Status Assessed: Yes Code Status: Full Code Critical Care: No Time Spent Managing PTS Care (In Minutes): 45
--- NOTE | 2019-11-06 14:36 | CON ---
Date of Consultation: 11/06/[address] Cedillo on 11/05/2019. The patient was seen by me on 11/06/2019. Reason For Consultation: COPD and CHF exacerbation. History Of Present Illness: Ms. Arceo is an 83-year-old white woman. She is very well known to me fr om previous office visits and admissions. 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 She has a history of pacemaker, history of atrial fibrillation, coronary artery disease, conge stive heart failure that is chronic diastolic. She has a history of COPD, diabetes, status post sten ts in the past. She has hypertension, dyslipidemia, and depression. Came in with shortness of breat h for about 2 days, PND, orthopnea, pedal edema. No palpitation. No syncope. No chest pain. No fe vers and no chills. She has already improved on inhalers and antibiotics as well as Lasix. Allergies: SHE IS ALLERGIC TO MORPHINE, TICLID, SULFA AND ZOCOR. Review of Systems: Negative. Social History: Negative. Family History: Noncontributory. Review of Systems: Positive for inability to walk for more than a few feet without having shortness of breath. The fami ly is very concerned that she is unable to care for herself because of falling and inability to walk and shortness of breath. Medications: At home include Neurontin, inhalers, Synthroid, Tricor, Zoloft, aspirin, Lasix, Aldacto ne, and steroids. Physical Examination: General: Ms. Arceo was in mild respiratory distress and getting a respiratory treatment when I saw he r. Vital Signs: She was in a paced rhythm, afebrile. HEENT: Negative. Neck: Supple. No bruit. Chest: Actually was clear to auscultation and percussion. Cardiac: Revealed a paced rhythm. No murmurs, gallops, or rubs. Abdomen: Obese, but benign. Extremities: Revealed no clubbing, cyanosis, or edema. Pulses were present distally bilaterally. Skin: Dry and intact. Neurologic: She was nonfocal. Diagnostic Data: EKG showed paced rhythm. Echocardiogram in August 2019 showed an EF that was nor mal. She had LVH. She had mitral annular calcification, decreased left ventricle compliance. Her B MAILROOM MESSENGER was 2227. Troponin was 0.14. D-dimer was 2683. Impression And Plan: 1.Acute on chronic exacerbation of diastolic congestive heart failure. 2.Acute on chronic chronic obstructive pulmonary disease exacerbation. 3.Coronary artery disease, status post stent, stable. 4.Status post pacemaker for atrial fibrillation, stable. 5.Hypertension, well controlled. 6.Dyslipidemia, well controlled. 7.Depression. 8.Diabetes, well controlled. I will continue her present regimen with inhalers, Solu-Medrol, IV Lasix. I would consider low-dose beta-heidi for her diastolic congestive heart failure. I think she will need to consider further s ocial evaluation for help and maybe placement in assisted living or alf home facility. I will discuss that further with the son and the social media content specialist and her primary care physician. I do n ot see the need of any further cardiac workup at this point. NADIYA/ESTEFANIA Voice ID: [id number] Report ID: [id number]
--- NOTE | 2019-11-06 15:30 | RAD REPORT ---
EXAM DESCRIPTION: CT - Chest For Pe Angio - 11/06/2019 3:03 pm CLINICAL HISTORY: SOB, Elevated d dimer COMPARISON: Chest Abd Pelvis Wo Con dated 10/19/2019; Chest Single View dated 11/05/2019 TECHNIQUE: Dynamically enhanced 3 mm thick images of the chest were obtained during administration o f approximately 150mL Isovue 370 IV contrast. Coronal and oblique MIP reconstruction images were gene rated and reviewed. Exam utilizes a protocol to evaluate the pulmonary arterial tree. All CT scans are performed using dose optimization technique as appropriate and may include automated exposure control or mA/KV adjustment according to patient size. FINDINGS: No pulmonary emboli are identified. The aorta as imaged shows no acute or suspicious finding. No pericardial thickening or effusion. No infiltrate or mass in the lung parenchyma. No pleural effusion or pleural thickening. Lung base mo tion could potentially mask a very minimal interstitial edema or infiltrate. No mediastinal or hilar suspicious masses. No chest wall masses or abnormal axillary lymphadenopathy. IMPRESSION: No pulmonary emboli identified. No mass or consolidation. Motion at each lung base could potentially mask minimal edema or infiltrate .
[2019-11-06] MEDS ORDERED: INSULIN 70/30 100 UNITS/ML SQ ONE (20:56)
[2019-11-06] MEDS: SERTRALINE HCL 50 MG TAB PO SCH (21:36)
[2019-11-07] MEDS: FUROSEMIDE 40 MG/4 ML VIAL IV SCH ×2 (00:21→08:48)
[2019-11-07] MEDS: METHYLPREDNISOLONE 40 MG INJ IV SCH ×2 (00:21→05:32)
[2019-11-07] MEDS: IPRATROPIUM BROM 0.5MG/2.5ML NEB SCH ×4 (01:40→20:50)
[2019-11-07] MEDS: ALBUTEROL 2.5 MG/3 ML NEB SOL NEB SCH ×4 (01:40→20:50)
[2019-11-07 05:26] VITALS: BMI 32.3
[2019-11-07] MEDS: LEVOTHYROXINE SOD 0.125 MG TAB PO SCH (05:32)
[2019-11-07] MEDS: ARFORMOTEROL TARTRATE 15 MCG/2 ML VIAL.NEB NEB SCH ×2 (07:45→20:50)
--- NOTE | 2019-11-07 08:07 | P.PN ---
Subjective Date of Service: 11/06/19 Chief Complaint: Respiratory distress. Same. Dyspnea with walking to the bathroom Late entry note. Patient seen and examined on 11/06/19 Physical Examination - Vital Signs Temperature: 97 F Blood Pressure: 123/50 Pulse: 70 Respirations: 16 Pulse Ox (%): 93 - Physical Exam General: Alert, In no apparent distress, Obese HEENT: Atraumatic, PERRLA, EOMI Neck: Supple, JVD distended Respiratory: Diminished, Crackles/rales, Expiratory wheezes Cardiovascular: Regular rate/rhythm, Normal S1 S2, Edema Gastrointestinal: Normal bowel sounds, No tenderness Musculoskeletal: No tenderness Integumentary: No rashes Neurological: Normal speech, Normal tone, Normal affect Lymphatics: No axilla or inguinal lymphadenopathy - Studies Microbiology Data (last 24 hrs): 11/05/19 20:27 Blood - Blood Anaerobic Blood Culture - Final 11/05/19 20:16 Blood - Blood Anaerobic Blood Culture - Final Medications List Reviewed: Yes Assessment And Plan - Plan Problems (Diagnosis) (1) Acute on chronic diastolic CHF (congestive heart failure) Onset Date: 02/11/18 Current Visit: No Status: Acute (2) COPD exacerbation Current Visit: No Status: Acute (3) Chronic atrial fibrillation Current Visit: No Status: Acute (4) Debility Current Visit: No Status: Acute (5) Renal insufficiency Onset Date: 10/11/17 Current Visit: No Status: Acute (6) CAD (coronary artery disease) Onset Date: 10/19/17 Current Visit: No Status: Chronic Qualifiers: (7) GERD (gastroesophageal reflux disease) Onset Date: 10/19/17 Current Visit: No Status: Chronic Qualifiers: (8) Obstructive sleep apnea Onset Date: 10/19/17 Current Visit: No Status: Chronic (9) PAD (peripheral artery disease) Onset Date: 03/29/18 Current Visit: No Status: Chronic (10) Pulmonary hypertension Onset Date: 10/19/17 Current Visit: No Status: Chronic (11) Type 2 diabetes mellitus without complications Onset Date: 10/11/17 Current Visit: No Status: Chronic Qualifiers: - Plan -review echocardiogram -Started on a Beta heidi -Cardiology consultation -diuresis -Strict I's and O's -Repeat CXR -Daily weights -nebs, steroids, and antibiotics -O2 per protocol. -SNF vs outpatient home health evaluation DW with patient and son at bedside.
[2019-11-07 08:47] LABS: Absolute Lymphocytes (CBC) 0.7 K/uL (0.7-4.9); Basophils % 0.3 % (0-1.3); Hematocrit 47.8 % (36.0-45.0); MPV 10.5 fL (7.6-11.3); RBC Red Blood Cell Count 5.14 M/uL (3.86-4.86)
[2019-11-07] MEDS: CEFTRIAXONE/SWI 1gm 1 GM/10 ML SYR IV SCH ×2 (08:47→20:19)
[2019-11-07] MEDS: GABAPENTIN 300 MG CAP PO SCH ×2 (08:48→20:20)
[2019-11-07] MEDS: ENOXAPARIN 40 MG/0.4 ML SQ SCH (08:49)
[2019-11-07] MEDS: POTASSIUM 25 MEQ EFFERV TAB PO SCH (08:49)
[2019-11-07] MEDS: ASPIRIN EC 81 MG TAB PO SCH (08:49)
[2019-11-07] MEDS: METOPROLOL TAR 50 MG TAB PO SCH (08:50)
[2019-11-07] MEDS: TRAMADOL HCL 50 MG TAB PO SCH ×2 (08:50→20:29)
[2019-11-07 09:09] LABS: Platelet Estimate ADEQ
[2019-11-07 09:10] LABS: Blood Morphology Comment NOT SEEN (NOT SEEN)
[2019-11-07 09:57] LABS: Albumin 3.3 g/dL (3.4-5.0); Bilirubin Total 0.3 mg/dL (0.2-1.0); Magnesium 2.4 mg/dL (1.8-2.4); Potassium 4.4 mmol/L (3.5-5.1); Protein, Total 7.5 g/dL (6.4-8.2)
[2019-11-07] MEDS ORDERED: D50W 25 GM/50 ML SYRINGE/VIAL IV PRN (12:14)
[2019-11-07] MEDS ORDERED: GLUCAGON 1 MG/VIAL IM PRN (12:14)
[2019-11-07] MEDS: INSULIN -REGULAR HUMAN 50 UNIT/0.5 ML ML SQ SCH ×3 (12:48→20:24)
--- NOTE | 2019-11-07 13:22 | P.PN ---
Subjective Date of Service: 11/07/19 Chief Complaint: Respiratory distress. Mild improvement. hesitant going home today. Review of Systems Respiratory: Cough, Dry, Shortness of Breath, SOB with Excertion Physical Examination - Vital Signs Temperature: 97.7 F Blood Pressure: 113/56 Pulse: 70 Respirations: 18 Pulse Ox (%): 98 - Physical Exam General: Alert, Mild distress, Obese HEENT: Atraumatic, PERRLA, EOMI Neck: Supple, JVD not distended Respiratory: Diminished, Inspiratory wheezes Cardiovascular: Regular rate/rhythm, Normal S1 S2 Gastrointestinal: Normal bowel sounds, No tenderness Musculoskeletal: No tenderness Integumentary: No rashes Neurological: Normal speech, Normal tone, Normal affect Lymphatics: No axilla or inguinal lymphadenopathy - Studies Laboratory Tests 11/05/19 11/07/19 11/07/19 20:16 08:32 09:11 WBC 14.2 H D RBC 5.14 H Hgb 15.3 H Hct 47.8 H Plt Count 245 D-Dimer 2683 H* Sodium 140 Potassium 4.4 Carbon Dioxide 36 H Creatinine 1.38 H Estimated GFR 36 L Glucose 237 H Alkaline Phosphatase 33 L Microbiology Data (last 24 hrs): 11/05/19 20:27 Blood - Blood Anaerobic Blood Culture - Final 11/05/19 20:16 Blood - Blood Anaerobic Blood Culture - Final Medications List Reviewed: Yes Assessment And Plan - Plan COPD exacerbation-patient is on 3 L nasal cannula at home. Chronic respiratory failure. -currently on high-dose steroids, will taper today -continue DuoNeb, supplemental oxygen and pulmonary toileting -CT chest with questionable infiltrates. Will give patient azithromycin for antiinflammatory effect for now. -check procalcitonin. #Chronic diastolic heart failure-mild acute exacerbation. -received Lasix, will hold due to FREDO -contributing to dyspnea. -ACS ruled out. Cardiac Cath Technician evaluated patient. # Debility-PT/OT. Patient will benefit from [facility] facility. She is declining now will discharge home with home PT. # Acute kidney injury-hold Lasix. -avoid nephrotoxins and trend creatinine. # CAD-stable. Cleared by cardio for discharge. #GERD-continue home medication #Obstructive sleep apnea #Pulmonary hypertension-likely contributing to dyspnea. -continue supportive therapy. #Type 2 diabetes mellitus without complications -resume Levemir. -BG AC and HS and cover with insulin sliding scale. Dispo-possible discharge in a.m. Steroid taper today, monitor patient overnight for improvement.
[2019-11-07] MEDS: AZITHROMYCIN IV 500 MG in NA CHLORIDE 0.9% 250 ML IVPB SCH (14:19)
[2019-11-07] MEDS: predniSONE 20 MG TAB PO SCH (20:19)
[2019-11-07] MEDS: SERTRALINE HCL 50 MG TAB PO SCH (20:20)
[2019-11-07] MEDS: AMLODIPINE 5 MG TAB PO SCH (20:29)
[2019-11-07] MEDS ORDERED: HOME MED 1 EA UNK (Gabapentin [Neurontin] 600 MG) PO SCH (21:00)
--- NOTE | 2019-11-07 21:35 | PN ---
Date of Progress Note: 11/07/2019 Ms. Arceo came in with congestive heart failure, acute on chronic diastolic; also COPD exacerbation. Has chronic obesity. Has many issues with dyspnea on minimal exertion. Has improved drastically on inhalers, diuresis, and antibiotics. Her O2 saturation on nasal cannula is 93% on 2 L. Social dirk douglas is evaluating Ms. Arceo to see if she is a candidate for long-term facility or assisted living . I am agreeing with her management completely at this point from a medical standpoint. I am comfor table with her going home whenever it is okay with her primary care admitting physician and I will se e her in the office in the next 2 to 4 weeks. NADIYA/ESTEFANIA Voice ID: [id number] Report ID: [id number]
[2019-11-08] MEDS: IPRATROPIUM BROM 0.5MG/2.5ML NEB SCH ×3 (02:18→14:00)
[2019-11-08] MEDS: ALBUTEROL 2.5 MG/3 ML NEB SOL NEB SCH ×3 (02:18→13:10)
[2019-11-08 05:10] LABS: Absolute Lymphocytes (CBC) 0.8 K/uL (0.7-4.9); Basophils % 0.4 % (0-1.3); Hematocrit 43.9 % (36.0-45.0); Lymphocytes % 8.6 % (15.3-44.8); MPV 9.9 fL (7.6-11.3); RBC Red Blood Cell Count 4.65 M/uL (3.86-4.86)
[2019-11-08 05:31] LABS: Potassium 4.4 mmol/L (3.5-5.1)
[2019-11-08] MEDS: LEVOTHYROXINE SOD 0.125 MG TAB PO SCH (05:53)
[2019-11-08] MEDS: INSULIN -REGULAR HUMAN 50 UNIT/0.5 ML ML SQ SCH ×2 (07:30→12:57)
[2019-11-08] MEDS: ARFORMOTEROL TARTRATE 15 MCG/2 ML VIAL.NEB NEB SCH (07:50)
[2019-11-08] MEDS: CEFTRIAXONE/SWI 1gm 1 GM/10 ML SYR IV SCH (08:13)
[2019-11-08] MEDS: AZITHROMYCIN IV 500 MG in NA CHLORIDE 0.9% 250 ML IVPB SCH (08:13)
[2019-11-08] MEDS: AMLODIPINE 5 MG TAB PO SCH (08:14)
[2019-11-08] MEDS: GABAPENTIN 300 MG CAP PO SCH (08:14)
[2019-11-08] MEDS: predniSONE 20 MG TAB PO SCH (08:15)
[2019-11-08] MEDS: POTASSIUM 25 MEQ EFFERV TAB PO SCH (08:17)
[2019-11-08] MEDS: TRAMADOL HCL 50 MG TAB PO SCH (08:18)
[2019-11-08] MEDS ORDERED: FUROSEMIDE 40 MG TABLET PO SCH (09:00)
[2019-11-08] MEDS ORDERED: INSULIN GLARGINE 100 UNITS/ML SQ SCH (09:00)
[2019-11-08] MEDS ORDERED: ASPIRIN 325 MG TAB PO SCH (09:00)
[2019-11-08] MEDS ORDERED: ENOXAPARIN 30 MG/0.3 ML SQ SCH (09:00)
[2019-11-08 12:16] VITALS: BP 108/46; TEMP 96.9
--- NOTE | 2019-11-08 14:50 | P.PN ---
Subjective Date of Service: 11/08/19 Chief Complaint: Respiratory distress. Subjective: No new changes (still feel weak , still states SOB at exertion with minimal ambulation) Review of Systems 10-point ROS is otherwise unremarkable Physical Examination - Vital Signs Temperature: 96.9 F Blood Pressure: 108/46 Pulse: 70 Respirations: 17 Pulse Ox (%): 97 - Physical Exam General: Alert, Oriented x3, Obese HEENT: Atraumatic, Normocephalic Neck: 2+ carotid pulse no bruit, JVD not distended Respiratory: Normal air movement, Crackles/rales Cardiovascular: Normal pulses, Regular rate/rhythm, Normal S1 S2 Gastrointestinal: Normal bowel sounds, Soft and benign, Non-distended Musculoskeletal: No clubbing, No swelling Integumentary: No rashes, No breakdown Neurological: Normal speech, Normal strength at 5/5 x4 extr - Studies Laboratory Last Values WBC 9.7 K/uL (4.3-10.9) D 11/08/19 04:53 RBC 4.65 M/uL (3.86-4.86) 11/08/19 04:53 Hgb 14.1 g/dL (12.0-15.0) 11/08/19 04:53 Hct 43.9 % (36.0-45.0) 11/08/19 04:53 MCV 94.4 fL (80-100) 11/08/19 04:53 MCH 30.3 pg (27.0-35.0) 11/08/19 04:53 MCHC 32.1 g/dL (32.0-36.0) 11/08/19 04:53 RDW 13.8 % (12.1-15.2) 11/08/19 04:53 Plt Count 203 K/uL (152-406) 11/08/19 04:53 MPV 9.9 fL (7.6-11.3) 11/08/19 04:53 Total Counted Cancelled 11/07/19 08:32 Neutrophils % 86.1 % (41.7-73.7) H 11/08/19 04:53 Lymphocytes % 8.6 % (15.3-44.8) L 11/08/19 04:53 Monocytes % 4.8 % (3.3-12.3) 11/08/19 04:53 Eosinophils % 0.1 % (0-4.4) 11/08/19 04:53 Basophils % 0.4 % (0-1.3) 11/08/19 04:53 Megakaryocytes % Cancelled 11/07/19 08:32 Absolute Neutrophils 8.3 K/uL (1.8-8.0) H 11/08/19 04:53 Segmented Neutrophils 92 % (40-80) H 11/07/19 08:32 Band Neutrophils Cancelled 11/07/19 08:32 Absolute Lymphocytes 0.8 K/uL (0.7-4.9) 11/08/19 04:53 Lymphocytes 7 % (15-42) L 11/07/19 08:32 Monocytes 1 % (0-10) 11/07/19 08:32 Absolute Monocytes 0.5 K/uL (0.1-1.3) 11/08/19 04:53 Eosinophils Cancelled 11/07/19 08:32 Absolute Eosinophils 0.0 K/uL (0-0.5) 11/08/19 04:53 Basophils Cancelled 11/07/19 08:32 Absolute Basophils 0.0 K/uL (0-0.5) 11/08/19 04:53 Metamyelocytes Cancelled 11/07/19 08:32 Myelocytes Cancelled 11/07/19 08:32 Promyelocytes Cancelled 11/07/19 08:32 Nucleated RBCs Cancelled 11/07/19 08:32 Hypersegmented Neuts Cancelled 11/07/19 08:32 Hypogranular Neuts Cancelled 11/07/19 08:32 Atypical Lymphocytes Cancelled 11/07/19 08:32 Reactive Lymphocytes Cancelled 11/07/19 08:32 Lymphoblasts Cancelled 11/07/19 08:32 Blast Cells Cancelled 11/07/19 08:32 Immature Blood Cells Cancelled 11/07/19 08:32 Plasma Cells Cancelled 11/07/19 08:32 Smudge Cells Cancelled 11/07/19 08:32 Toxic Granulation Cancelled 11/07/19 08:32 Dohle Bodies Cancelled 11/07/19 08:32 Pelger-Huet Cells Cancelled 11/07/19 08:32 Gareth Rods Cancelled 11/07/19 08:32 Platelet Estimate Cancelled 11/07/19 08:32 Clumped Platelets Cancelled 11/07/19 08:32 Giant Platelets Cancelled 11/07/19 08:32 Polychromasia Cancelled 11/07/19 08:32 Hypochromasia Cancelled 11/07/19 08:32 Poikilocytosis Cancelled 11/07/19 08:32 Basophilic Stippling Cancelled 11/07/19 08:32 Anisocytosis Cancelled 11/07/19 08:32 Microcytosis Cancelled 11/07/19 08:32 Macrocytosis Cancelled 11/07/19 08:32 Spherocytes Cancelled 11/07/19 08:32 Sickle Cells Cancelled 11/07/19 08:32 Target Cells Cancelled 11/07/19 08:32 Tear Drop Cells Cancelled 11/07/19 08:32 Ovalocytes Cancelled 11/07/19 08:32 Stomatocytes Cancelled 11/07/19 08:32 [place] Bodies Cancelled 11/07/19 08:32 Pradeep Cells Cancelled 11/07/19 08:32 Elliptocytes Cancelled 11/07/19 08:32 Rouleaux Cancelled 11/07/19 08:32 Cold Agglutinates Cancelled 11/07/19 08:32 Other Red Blood Cells Cancelled 11/07/19 08:32 Unidentified Cells Cancelled 11/07/19 08:32 Schistocytes Cancelled 11/07/19 08:32 Morphology Comment Not seen (NOT SEEN) 11/07/19 08:32 PT 11.4 SECONDS (9.5-12.5) 11/05/19 20:16 INR 0.96 11/05/19 20:16 APTT 25.6 SECONDS (24.3-36.9) 11/05/19 20:16 D-Dimer 2683 FEUng/mL (<500) H* 11/05/19 20:16 Sodium 140 mmol/L (136-145) 11/08/19 04:53 Potassium 4.4 mmol/L (3.5-5.1) 11/08/19 04:53 Chloride 100 mmol/L (98-107) 11/08/19 04:53 Carbon Dioxide 37 mmol/L (21-32) H 11/08/19 04:53 BUN 38 mg/dL (7-18) H 11/08/19 04:53 Creatinine 1.19 mg/dL (0.55-1.3) 11/08/19 04:53 Estimated GFR 43 mL/min (=/>90) L 11/08/19 04:53 Glucose 169 mg/dL (74-106) H 11/08/19 04:53 POC Glucose 187 mg/dl (65-120) H 11/08/19 11:06 Calcium 8.8 mg/dL (8.5-10.1) 11/08/19 04:53 Phosphorus 2.8 mg/dL (2.5-4.9) 11/06/19 05:42 Magnesium 2.4 mg/dL (1.8-2.4) 11/07/19 09:11 Total Bilirubin 0.3 mg/dL (0.2-1.0) 11/07/19 09:11 Direct Bilirubin 0.2 mg/dL (0-0.2) 11/05/19 20:16 AST 18 U/L (15-37) 11/07/19 09:11 ALT 15 U/L (12-78) 11/07/19 09:11 Alkaline Phosphatase 33 U/L (45-117) L 11/07/19 09:11 Creatine Kinase 53 U/L (26-192) 11/05/19 20:16 CK-MB (CK-2) 1.5 ng/mL (0.3-3.6) 11/05/19 20:16 Rapid Troponin I 0.14 ng/mL (0.0-0.045) H 11/05/19 20:16 Troponin I 0.13 ng/mL (0.0-0.045) H 11/06/19 12:37 NT-Pro-B Natriuret Pep 2227 pg/mL (<450) H 11/06/19 05:42 Serum Total Protein 7.5 g/dL (6.4-8.2) 11/07/19 09:11 Albumin 3.3 g/dL (3.4-5.0) L 11/07/19 09:11 Globulin 4.2 g/dL (2.3-3.5) H 11/07/19 09:11 Albumin/Globulin Ratio 0.8 (1.1-1.8) L 11/07/19 09:11 Lipase 257 U/L (73-393) 11/05/19 20:16 Procalcitonin < 0.05 ng/mL (<0.50) 11/07/19 09:11 Microbiology Data (last 24 hrs): Laboratory Last Values WBC 9.7 K/uL (4.3-10.9) D 11/08/19 04:53 RBC 4.65 M/uL (3.86-4.86) 11/08/19 04:53 Hgb 14.1 g/dL (12.0-15.0) 11/08/19 04:53 Hct 43.9 % (36.0-45.0) 11/08/19 04:53 MCV 94.4 fL (80-100) 11/08/19 04:53 MCH 30.3 pg (27.0-35.0) 11/08/19 04:53 MCHC 32.1 g/dL (32.0-36.0) 11/08/19 04:53 RDW 13.8 % (12.1-15.2) 11/08/19 04:53 Plt Count 203 K/uL (152-406) 11/08/19 04:53 MPV 9.9 fL (7.6-11.3) 11/08/19 04:53 Total Counted Cancelled 11/07/19 08:32 Neutrophils % 86.1 % (41.7-73.7) H 11/08/19 04:53 Lymphocytes % 8.6 % (15.3-44.8) L 11/08/19 04:53 Monocytes % 4.8 % (3.3-12.3) 11/08/19 04:53 Eosinophils % 0.1 % (0-4.4) 11/08/19 04:53 Basophils % 0.4 % (0-1.3) 11/08/19 04:53 Megakaryocytes % Cancelled 11/07/19 08:32 Absolute Neutrophils 8.3 K/uL (1.8-8.0) H 11/08/19 04:53 Segmented Neutrophils 92 % (40-80) H 11/07/19 08:32 Band Neutrophils Cancelled 11/07/19 08:32 Absolute Lymphocytes 0.8 K/uL (0.7-4.9) 11/08/19 04:53 Lymphocytes 7 % (15-42) L 11/07/19 08:32 Monocytes 1 % (0-10) 11/07/19 08:32 Absolute Monocytes 0.5 K/uL (0.1-1.3) 11/08/19 04:53 Eosinophils Cancelled 11/07/19 08:32 Absolute Eosinophils 0.0 K/uL (0-0.5) 11/08/19 04:53 Basophils Cancelled 11/07/19 08:32 Absolute Basophils 0.0 K/uL (0-0.5) 11/08/19 04:53 Metamyelocytes Cancelled 11/07/19 08:32 Myelocytes Cancelled 11/07/19 08:32 Promyelocytes Cancelled 11/07/19 08:32 Nucleated RBCs Cancelled 11/07/19 08:32 Hypersegmented Neuts Cancelled 11/07/19 08:32 Hypogranular Neuts Cancelled 11/07/19 08:32 Atypical Lymphocytes Cancelled 11/07/19 08:32 Reactive Lymphocytes Cancelled 11/07/19 08:32 Lymphoblasts Cancelled 11/07/19 08:32 Blast Cells Cancelled 11/07/19 08:32 Immature Blood Cells Cancelled 11/07/19 08:32 Plasma Cells Cancelled 11/07/19 08:32 Smudge Cells Cancelled 11/07/19 08:32 Toxic Granulation Cancelled 11/07/19 08:32 Dohle Bodies Cancelled 11/07/19 08:32 Pelger-Huet Cells Cancelled 11/07/19 08:32 Gareth Rods Cancelled 11/07/19 08:32 Platelet Estimate Cancelled 11/07/19 08:32 Clumped Platelets Cancelled 11/07/19 08:32 Giant Platelets Cancelled 11/07/19 08:32 Polychromasia Cancelled 11/07/19 08:32 Hypochromasia Cancelled 11/07/19 08:32 Poikilocytosis Cancelled 11/07/19 08:32 Basophilic Stippling Cancelled 11/07/19 08:32 Anisocytosis Cancelled 11/07/19 08:32 Microcytosis Cancelled 11/07/19 08:32 Macrocytosis Cancelled 11/07/19 08:32 Spherocytes Cancelled 11/07/19 08:32 Sickle Cells Cancelled 11/07/19 08:32 Target Cells Cancelled 11/07/19 08:32 Tear Drop Cells Cancelled 11/07/19 08:32 Ovalocytes Cancelled 11/07/19 08:32 Stomatocytes Cancelled 11/07/19 08:32 [place] Bodies Cancelled 11/07/19 08:32 Gove Cells Cancelled 11/07/19 08:32 Elliptocytes Cancelled 11/07/19 08:32 Rouleaux Cancelled 11/07/19 08:32 Cold Agglutinates Cancelled 11/07/19 08:32 Other Red Blood Cells Cancelled 11/07/19 08:32 Unidentified Cells Cancelled 11/07/19 08:32 Schistocytes Cancelled 11/07/19 08:32 Morphology Comment Not seen (NOT SEEN) 11/07/19 08:32 PT 11.4 SECONDS (9.5-12.5) 11/05/19 20:16 INR 0.96 11/05/19 20:16 APTT 25.6 SECONDS (24.3-36.9) 11/05/19 20:16 D-Dimer 2683 FEUng/mL (<500) H* 11/05/19 20:16 Sodium 140 mmol/L (136-145) 11/08/19 04:53 Potassium 4.4 mmol/L (3.5-5.1) 11/08/19 04:53 Chloride 100 mmol/L (98-107) 11/08/19 04:53 Carbon Dioxide 37 mmol/L (21-32) H 11/08/19 04:53 BUN 38 mg/dL (7-18) H 11/08/19 04:53 Creatinine 1.19 mg/dL (0.55-1.3) 11/08/19 04:53 Estimated GFR 43 mL/min (=/>90) L 11/08/19 04:53 Glucose 169 mg/dL (74-106) H 11/08/19 04:53 POC Glucose 187 mg/dl (65-120) H 11/08/19 11:06 Calcium 8.8 mg/dL (8.5-10.1) 11/08/19 04:53 Phosphorus 2.8 mg/dL (2.5-4.9) 11/06/19 05:42 Magnesium 2.4 mg/dL (1.8-2.4) 11/07/19 09:11 Total Bilirubin 0.3 mg/dL (0.2-1.0) 11/07/19 09:11 Direct Bilirubin 0.2 mg/dL (0-0.2) 11/05/19 20:16 AST 18 U/L (15-37) 11/07/19 09:11 ALT 15 U/L (12-78) 11/07/19 09:11 Alkaline Phosphatase 33 U/L (45-117) L 11/07/19 09:11 Creatine Kinase 53 U/L (26-192) 11/05/19 20:16 CK-MB (CK-2) 1.5 ng/mL (0.3-3.6) 11/05/19 20:16 Rapid Troponin I 0.14 ng/mL (0.0-0.045) H 11/05/19 20:16 Troponin I 0.13 ng/mL (0.0-0.045) H 11/06/19 12:37 NT-Pro-B Natriuret Pep 2227 pg/mL (<450) H 11/06/19 05:42 Serum Total Protein 7.5 g/dL (6.4-8.2) 11/07/19 09:11 Albumin 3.3 g/dL (3.4-5.0) L 11/07/19 09:11 Globulin 4.2 g/dL (2.3-3.5) H 11/07/19 09:11 Albumin/Globulin Ratio 0.8 (1.1-1.8) L 11/07/19 09:11 Lipase 257 U/L (73-393) 11/05/19 20:16 Procalcitonin < 0.05 ng/mL (<0.50) 11/07/19 09:11 Medications List Reviewed: Yes Assessment & Plan - Problems (Diagnosis) (1) Acute on chronic diastolic CHF (congestive heart failure) Onset Date: 02/11/18 Current Visit: No Status: Acute (2) Atrial flutter Current Visit: No Status: Acute (3) COPD exacerbation Current Visit: No Status: Acute (4) Debility Current Visit: No Status: Acute (5) Chronic renal disease Onset Date: 10/19/17 Current Visit: No Status: Chronic Qualifiers: Chronic kidney disease stage: stage 3 (moderate) Qualified Code(s): N18.3 - Chronic kidney disease, stage 3 (moderate) (6) Diabetes mellitus Onset Date: 10/19/17 Current Visit: No Status: Chronic Qualifiers: Diabetes mellitus type: type 2 Diabetes mellitus alf insulin use: without manager terminal use Diabetes mellitus complication status: with hyperglycemia Qualified Code(s): E11.65 - Type 2 diabetes mellitus with hyperglycemia (7) On home oxygen therapy Current Visit: No Status: Chronic Physician Review: Patient Assessed, Agree with Above Assessment and Plan Physician Review Additional Text: COPD exacerbation- improving -down to 2 L 02 now at rest -resolved wheezing -0c/w duonebs /steroids/02 -c/w abx for CT with questionable infiltrates. #Chronic diastolic heart failure-stable , can restart lasix -ACS ruled out. Hospital Nurse evaluated patient. # Debility-c/w PT/OT, She is declining SNF now , will discharge home with home PT. # Acute kidney injury-avoid nephrotoxins , stable cr # CAD-stable. Cleared by cardio for discharge. #GERD-continue home medication #Obstructive sleep apnea #Pulmonary hypertension-likely contributing to dyspnea. -continue supportive therapy. #Type 2 diabetes mellitus without complications -c/w insulin sliding scale.
--- NOTE | 2019-11-08 15:02 | P.DS ---
Admission Date: 11/05/19 Discharge Date: 11/08/19 Disposition: DC HOME/HOME HEALTH CARE Discharge Condition: GOOD Reason for Admission: Respiratory distress. - Problems (1) Acute on chronic diastolic CHF (congestive heart failure) Onset Date: 02/11/18 Current Visit: No Status: Acute (2) Atrial flutter Current Visit: No Status: Acute (3) COPD exacerbation Current Visit: No Status: Acute (4) Debility Current Visit: No Status: Acute (5) Chronic renal disease Onset Date: 10/19/17 Current Visit: No Status: Chronic Qualifiers: Chronic kidney disease stage: stage 3 (moderate) Qualified Code(s): N18.3 - Chronic kidney disease, stage 3 (moderate) (6) Diabetes mellitus Onset Date: 10/19/17 Current Visit: No Status: Chronic Qualifiers: Diabetes mellitus type: type 2 Diabetes mellitus terminal operations manager insulin use: without snf use Diabetes mellitus complication status: with hyperglycemia Qualified Code(s): E11.65 - Type 2 diabetes mellitus with hyperglycemia (7) On home oxygen therapy Current Visit: No Status: Chronic Hospital Course: Patient with history of diastolic CHF, pulmonary hypertension. Diabetes mellitus on insulin, COPD on home O2, admitted for shortness of breath. She was initially managed for CHF exacerbation. She was started withdiuretics and started to improve. She was also started on DuoNeb for presumed COPD exacerbation. She had a CT scan done for elevated D-dimer with findings of no PE with possible infiltrates. She was started on empirical antibiotics. Patient is much improved. Her shortness of breath has resolved. She was felt to have debility and recommended SNF but the patient will like to go home. O2 has weaned down to 2 L nasal canal which she has at baseline. She had a transient elevation of creatinine which increased diureses and diuresed to those was reduced. She will be discharged today to follow with PCP in [address] hospitalization so was evaluated by Cardiology I ruled out for acute coronary syndrome. She was also diagnosed with presumed pulmonary hypertension which was likely contributing to chronic dyspnea. Vital Signs/Physical Exam: Temp Pulse Resp BP Pulse Ox 96.9 F 70 17 108/46 L 97 11/08/19 14:50 11/08/19 14:50 11/08/19 14:50 11/08/19 14:50 11/08/19 14:50 General: Alert, In no apparent distress, Obese HEENT: Atraumatic, Normocephalic Neck: 2+ carotid pulse no bruit, JVD not distended Respiratory: Normal air movement, Crackles/rales (few at bases ) Cardiovascular: No edema, Normal pulses, Normal S1 S2, Abnormal S3 Gastrointestinal: Normal bowel sounds, Soft and benign Neurological: Normal speech, Normal strength at 5/5 x4 extr Laboratory Data at Discharge: WBC 9.7 K/uL (4.3-10.9) D 11/08/19 04:53 Hgb 14.1 g/dL (12.0-15.0) 11/08/19 04:53 Hct 43.9 % (36.0-45.0) 11/08/19 04:53 Plt Count 203 K/uL (152-406) 11/08/19 04:53 PT 11.4 SECONDS (9.5-12.5) 11/05/19 20:16 INR 0.96 11/05/19 20:16 APTT 25.6 SECONDS (24.3-36.9) 11/05/19 20:16 Sodium 140 mmol/L (136-145) 11/08/19 04:53 Potassium 4.4 mmol/L (3.5-5.1) 11/08/19 04:53 BUN 38 mg/dL (7-18) H 11/08/19 04:53 Creatinine 1.19 mg/dL (0.55-1.3) 11/08/19 04:53 Glucose 169 mg/dL (74-106) H 11/08/19 04:53 Phosphorus 2.8 mg/dL (2.5-4.9) 11/06/19 05:42 Magnesium 2.4 mg/dL (1.8-2.4) 11/07/19 09:11 Total Bilirubin 0.3 mg/dL (0.2-1.0) 11/07/19 09:11 AST 18 U/L (15-37) 11/07/19 09:11 ALT 15 U/L (12-78) 11/07/19 09:11 Alkaline Phosphatase 33 U/L (45-117) L 11/07/19 09:11 Troponin I 0.13 ng/mL (0.0-0.045) H 01/30/20 12:37 Lipase 257 U/L (73-393) 11/05/19 20:16 Home Medications: Fenofibrate [Tricor*] 145 mg PO BEDTIME 10/08/17 Gabapentin [Neurontin] 600 mg PO BID 10/08/17 Aspirin 325 mg PO DAILY 02/09/18 Levothyroxine Sodium [Synthroid] 125 mcg PO DAILY 01/25/19 Albuterol Sulfate [Albuterol Sulfate 0.083% Neb Soln] 2.5 mg IH Q4H PRN Sertraline [Zoloft*] 50 mg PO BEDTIME 06/20/19 Losartan Potassium [Cozaar*] 100 mg PO DAILY 07/18/19 Amlodipine [Norvasc*] 5 mg PO BID #60 tab 07/21/19 Furosemide [Lasix*] 20 mg PO BIDL #60 tab 07/21/19 Spironolactone [Aldactone*] 25 mg PO DAILY #30 tab 07/21/19 Bimatoprost [Lumigan] 1 drop EACH EYE BEDTIME 11/06/19 Famotidine 1 tab PO DAILY 11/06/19 Insulin Detemir [Levemir Flextouch] 10 unit SQ DAILY 11/06/19 Levofloxacin [Levaquin] 250 mg PO DAILY #5 tablet 11/08/19 predniSONE [Prednisone*] 20 mg PO DAILY #7 tab 11/08/19 New Medications: Levofloxacin [Levaquin] 250 mg PO DAILY #5 tablet predniSONE [Prednisone*] 20 mg PO DAILY #7 tab Patient Discharge Instructions: Follow up with her primary physician in 5-7 days Diet: ADA Activity: Ad reshma Physician Review: Patient Assessed, Agree with Above Assessment and Plan Time spent managing pt's care (in minutes): 35
[2019-11-08 15:06] VITALS: O2SAT 97
== END 2019-11-08 15:50 | disposition home health service (06) | DRG 190 ==
LOC: ER 18:55 → ERHOLD 21:57 → 4TH 11-06 07:32
PROVIDERS: ADMIT Hospitalist; ATTEND Hospitalist
DX: J44.1 Chronic obstructive pulmonary disease with (acute) exacerbation (principal); I50.33 Acute on chronic diastolic (congestive) heart failure; I48.20 Chronic atrial fibrillation, unspecified; I13.0 Hypertensive heart and chronic kidney disease with heart failure and stage 1 through stage 4 chronic kidney disease, or unspecified chronic kidney disease; I48.92 Unspecified atrial flutter; I25.10 Atherosclerotic heart disease of native coronary artery without angina pectoris; N18.3 Chronic kidney disease, stage 3 (moderate); E78.5 Hyperlipidemia, unspecified; E11.22 Type 2 diabetes mellitus with diabetic chronic kidney disease; K21.9 Gastro-esophageal reflux disease without esophagitis; E03.9 Hypothyroidism, unspecified; M19.90 Unspecified osteoarthritis, unspecified site; F32.9 Major depressive disorder, single episode, unspecified; R53.81 Other malaise; N28.9 Disorder of kidney and ureter, unspecified; G47.33 Obstructive sleep apnea (adult) (pediatric); I73.9 Peripheral vascular disease, unspecified; I27.20 Pulmonary hypertension, unspecified; E66.9 Obesity, unspecified; Z86.718 Personal history of other venous thrombosis and embolism; Z86.711 Personal history of pulmonary embolism; Z95.0 Presence of cardiac pacemaker; Z87.891 Personal history of nicotine dependence; Z68.32 Body mass index [BMI] 32.0-32.9, adult; Z99.81 Dependence on supplemental oxygen
CPT/HCPCS: 36415; 71045; 71275; 80048; 80053; 80076; 82550; 82553; 82947; 83690; 83735; 83880; 84100; 84145; 84484; 85025; 85379; 85610; 85730; 87040; 93005; 94640; 96374; 96375; 97116; 97161; 97530; 99285; J0456; J0696; J1650; J1815; J1940; J2920; J7030; J7512; J7605; Q9967

== ENCOUNTER 2021-01-29 14:10 | Emergency (ER) | payer OTHER, MEDICARE ==
--- OUTSIDE RECORDS SUMMARY | 2021-01-29 14:16 | XMS REPORT | Continuity of Care Document ---
:1935 Author Organization [facility] t Address [address] [place] [address] Care Team Providers Name Role Phone Zayomidrobbie Primary Care Physician KRYSTAL JAMES Attending Clinician Unavailable GIVEHERLINDA Attending Clinician Unavailable ALESSIA MCMANUS Attending Clinician Unavailable KRYSTAL JAMES Admitting Clinician Unavailable GIVEON Admitting Clinician Unavailable ALESSIA MCMANUS Admitting Clinician Unavailable Problems Condition Condition Condition Status Onset Resolution Last Treating Co mments Source Name Details Category Date Date Treatment Clinician Date Acute Acute Disease Active [facility] pancreatit pancreatit 06-13 Angelina kes - is is 00:00: Medical 00 Center Wound Wound Disease Active [facility] infection infection 04-25 [facility] - after after 00:00: Medical surgery surgery 00 Center Pseudomona Pseudomona Disease Active [facility] s 04-25 [facility] - aeruginosa aeruginosa 00:00: Me dical infection infection 00 Cent er Klebsiella Klebsiella Disease Active [facility] infection infection 04-25 [facility] - 00:00: Medical 00 Center 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, aneurysm, 00:00: [facility] nereida right right 00 Center Wound Wound Disease Active [facility] infection infection 04-19 [facility] - 00:00: Medical 00 Center Leukocytos Leukocytos Disease Active [facility] is is 6 [facility] - 00:00: Medical 00 Center DM DM Disease Active [facility] (diabetes (diabetes [facility] - mellitus) mellitus) Medi nereida type II, type II, Center controlled controlled , with , with peripheral peripheral vascular vascular disorder disorder Hypertensi Hypertensi Disease Active [facility] on on [facility] Hyperlipid Hyperlipid Disease Active [facility] emia emia [facility] 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 St (chronic (chronic [facility] - obstructiv obstructiv Me dical e e Center pulmonary pulmonary disease) disease) GERD GERD Disease Active [facility] (gastroeso (gastroeso [facility] disease) disease) Respirator Respirator Disease Active [facility] y y [facility] - insufficie insufficie Me dical ncy ncy Center Pacemaker Pacemaker Disease Active [facility] Allergies, Adverse Reactions, Alerts Allergy Allergy Status Severity Reaction(s) Onset Inactive Treating Comm ents Source Name Type Date Date Clinician Atenolol Propensi Active [facility] ty to 6 [facility] - adverse 00:00: Medical reaction 00 [place] Morphine Propensi Active [facility] ty to 03-11 of the [facility] - adverse 00:00: face Medical reaction 00 [place] Simvasta Propensi Active [facility] tin ty to 03-11 [facility] - adverse 00:00: Medical reaction 00 [place] Sulfa Propensi Active [facility] [facility] (Sulfona ty to 03-11 TIONS [facility] - mide adverse 00:00: Medical Antibiot reaction 00 Center ics) s Ticlopid Propensi Active [facility] in[facility] ty to 604 [facility] - adverse 00:00: Medical reaction 00 [place] Social History Social Habit Start Date Stop Date Quantity Comments Source History of tobacco Smoker [facility] - use [facility] Sex Assigned At [facility] Cigarettes smoked 2018-06-19 2018-06-19 [facility] - current (pack per 00:00:00 00:00:00 Medical Center day) - Reported Cigarette 2018-06-19 2018-06-19 [facility] - pack-years 00:00:00 00:00:00 Medical Center Tobacco use and 2018-06-19 2018-06-[address] [facility] Angelina kes - exposure 00:00:00 00:00:00 Medical Center Alcohol intake 2018-06-19 2018-06-[address] [facility] Emma es - 00:00:00 00:00:00 non-drinker of Medical Ce nter alcohol (finding) Smoking Status Start Date Stop Date Source Former smoker 2018-06-19 00:00:00 2018-06-19 00:00:[address] [facility] Medications Ordered Filled Start Stop Current Ordering Indication Dosage Frequency Signature Comments Components Source Medication Medication Date Date Medication? Clinician (SIG) Name Name fenofibrate Yes 145mg QD Take [address] (TRICOR) 9-12 mg by [facility] - 145 MG 09:56: mouth Medical tablet 57 daily. Center bimatoprost Yes 1[drp] QD Place [address] (LUMIGAN) 9-12 drop into [facility] - 0.01 % Drop 09:56: both eyes M edical ophthalmic 57 nightly. Cente r solution arformotero Yes 15ug Take [address] (BROVANA) 9-12 mcg by [facility] - 15 mcg/2 mL 09:56: nebulizati Medical nebulizer 57 on every Center solution 12 (twelve) hours. gabapentin Yes 600mg Q.5D Take [address] (NEURONTIN) 8-31 mg by [facility] - 300 MG 00:00: mouth 2 Medical capsule 00 (two) Center times daily. traMADol Yes 50mg Take [address] (ULTRAM) 50 7-19 tablet (50 Angelina kes - mg tablet 00:00: mg total) Med ical 00 by mouth Center every 8 (eight) hours as needed for Pain. Max Daily Amount: 150 mg acetic acid Yes USE 1,[address] 0.25 % 7-02 MLS [facility] - irrigation 00:00: DIRECTED Med ical 00 DAILY. Center acetaminoph Yes 650mg Take [address] en 6-21 tablets [facility] - (TYLENOL) 00:00: (650 mg Medic al 325 MG 00 total) by Center tablet mouth every 6 (six) hours as needed for Pain. predniSONE Yes 10mg QD Take 1 [facility] (DELTASONE) 6-21 tablet (10 Angelina kes - 10 MG 00:00: mg total) Medical tablet 00 by mouth Center daily. levothyroxi Yes TAKE ONE [facility] ne 5-17 (1) [facility] - (SYNTHROID, 00:00: TABLET(S) M edical LEVOTHROID) 00 BY MOUTH Cent er 125 MCG EVERY tablet MORNING. albuterol Yes USE ONE [facility] (PROVENTIL) 02-05 (1) VIAL Luke [facility] - 2.5 mg /3 00:00: VIA Medical mL (0.083 00 NEBULIZER Cente r %) EVERY 6 nebulizer HOURS solution NEEDED. ROSALIO-24 200 Yes Post-operat Q.5D 2 (two) [facility] mg 24 hr 5- radha state times [facility] - capsule 00:00: daily. Medical 00 Center famotidine Yes TAKE ONE [facility] (PEPCID) 40 4-17 (1) [facility] - MG tablet 00:00: TABLET(S) Med ical 00 BY MOUTH Center ONCE A DAY. sertraline Yes 50mg QD [address] (ZOLOFT) 50 4-17 daily. [facility] - MG tablet 00:00: Medical 00 Center Procedures This patient has no known procedures. Plan of Care Planned Activity Planned Date Details Comments Source Future Scheduled 2020-06-08 INFLUENZA VACCINE (#1) [facility] - Test 00:00:00 [code = INFLUENZA Medical Ce nter VACCINE (#1)] Future Scheduled 2019-12-[address] Angelina kes - Test 00:00:00 [facility] Center (procedure) [code = 33794900] Future Scheduled 2000-11-[address] [facility] - Test 00:00:00 WELLNESS (YEAR 2 or Medical Center FIRST YEAR if no IPPE) [code = MEDICARE ANNUAL WELLNESS (YEAR 2 or FIRST YEAR if no IPPE)] Future Scheduled 1999 PNEUMOCOCCAL 65+ YRS [facility] - Test 00:00:00 (1 of 1 - Medical Center [id number]) [code = PNEUMOCOCCAL 65+ YRS (1 of 1 - [id number] PCV13)] Future Scheduled 1944 DIABETIC EYE EXAM [facility] - Test 00:00:00 [code = DIABETIC EYE Medical Center EXAM] Future Scheduled [address] Emma [facility] - Test 00:00:00 examination Medical Center (regime/therapy) [code = 578902219] Future Scheduled 1944 Urine screening for [facility] - Test 00:00:00 protein (procedure) Medical Center [code = 606194516] Results Test Description Test Time Test Comments Results Result Comments Source POCT-GLUCOSE METER 2019-06-19 07:53:00 Test Item Value Reference Range Interpretation Comme nts POC-GLUCOSE METER (BEAKER) (test 131 mg/dL 70-110 H TESTED AT [facility] [address] [facility] 1538[facility] 7703 0 BASIC METABOLIC [id number] 06:08:00 Test Item Value Reference Range Interpretation Comments SODIUM (BEAKER) 144 meq/L 136-145 (test code = 381) POTASSIUM (BEAKER) 4.0 meq/L 3.5-5.1 (test code = 379) CHLORIDE (BEAKER) 102 meq/L 98-107 (test code = 382) CO2 (BEAKER) (test 36 meq/L 22-29 H code = 355) BLOOD UREA NITROGEN 18 mg/dL 7-21 (BEAKER) (test code = 354) CREATININE (BEAKER) 0.90 mg/dL 0.57-1.25 (test code = 358) GLUCOSE RANDOM 106 mg/dL 70-105 H (BEAKER) (test code = 652) CALCIUM (BEAKER) 9.4 mg/dL 8.4-10.2 (test code = 697) EGFR (BEAKER) (test 60 mL/min/1.73 ESTIMA JOYCE GFR IS code = 1092) sq m NOT ACCURATE CREATININE CLEARANCE IN PREDICTING GLOMERULAR FILTRATION RATE . ESTIMATED GFR I S NOT APPLICABLE FOR DIALYSIS PATIEN TS. CBC W/PLT COUNT & AUTO [id number] 05:33:00 Test Item Value Reference Range Interpretation Comments WHITE BLOOD CELL COUNT (BEAKER) 8.4 K/ L 3.5-10.5 (test code = 775) RED BLOOD CELL COUNT (BEAKER) 4.99 M/ L 3.93-5.22 (test code = 761) HEMOGLOBIN (BEAKER) (test code = 14.7 GM/DL 11.2-15.7 410) HEMATOCRIT (BEAKER) (test code = 48.2 % 34.1-44.9 H 411) MEAN CORPUSCULAR VOLUME (BEAKER) 96.6 fL 79.4-94.8 H (test code = 753) MEAN CORPUSCULAR HEMOGLOBIN 29.5 pg 25.6-32.2 (BEAKER) (test code = 751) MEAN CORPUSCULAR HEMOGLOBIN CONC 30.5 GM/DL 32.2-35.5 L (BEAKER) (test code = 752) RED CELL DISTRIBUTION WIDTH 13.2 % 11.7-14.4 (BEAKER) (test code = 412) PLATELET COUNT (BEAKER) (test 223 K/CU MM 150-450 code = 756) MEAN PLATELET VOLUME (BEAKER) 11.7 fL 9.4-12.3 (test code = 754) NUCLEATED RED BLOOD CELLS 0 /100 WBC 0-0 (BEAKER) (test code = 413) NEUTROPHILS RELATIVE PERCENT 74 % (BEAKER) (test code = 429) LYMPHOCYTES RELATIVE PERCENT 14 % (BEAKER) (test code = 430) MONOCYTES RELATIVE PERCENT 8 % (BEAKER) (test code = 431) EOSINOPHILS RELATIVE PERCENT 3 % (BEAKER) (test code = 432) BASOPHILS RELATIVE PERCENT 1 % (BEAKER) (test code = 437) NEUTROPHILS ABSOLUTE COUNT 6.23 K/ L 1.56-6.13 H (BEAKER) (test code = 670) LYMPHOCYTES ABSOLUTE COUNT 1.21 K/ L 1.18-3.74 (BEAKER) (test code = 414) MONOCYTES ABSOLUTE COUNT (BEAKER) 0.68 K/ L 0.24-0.36 H (test code = 415) EOSINOPHILS ABSOLUTE COUNT 0.21 K/ L 0.04-0.36 (BEAKER) (test code = 416) BASOPHILS ABSOLUTE COUNT (BEAKER) 0.07 K/ L 0.01-0.08 (test code = 417) IMMATURE GRANULOCYTES-RELATIVE 1 % 0-1 PERCENT (BEAKER) (test code = 2801) POCT-GLUCOSE [id number] 02:04:00 Test Item Value Reference Range Interpretation Comments POC-GLUCOSE METER 143 mg/dL 70-110 H TESTED AT [facility] 6720 (BEAKER) (test code = OTILIA BENJAMIN 1538) [address] POCT-GLUCOSE [id number] 17:20:00 Test Item Value Reference Range Interpretation Comments POC-GLUCOSE METER 148 mg/dL 70-110 H TESTED AT [facility] 6720 (BEAKER) (test code = OTILIA Grady [facility] 1538) [id number] POCT-GLUCOSE [id number] 13:03:00 Test Item Value Reference Range Interpretation Comments POC-GLUCOSE METER 179 mg/dL 70-110 H TESTED AT [facility] 67[address] (BEAKER) (test code = OTILIA Grady [facility] 1538) [address] POCT-GLUCOSE [id number] 08:04:00 Test Item Value Reference Range Interpretation Comments POC-GLUCOSE METER 82 mg/dL 70-110 TESTED AT [facility] 67[address] (BEAKER) (test code = [facility] [address] 1538) [id number] 06:10:00 Test Item Value Reference Range Interpretation Comments MAGNESIUM (BEAKER) (test code = 1.9 mg/dL 1.6-2.6 627) BASIC METABOLIC [id number] 06:10:00 Test Item Value Reference Range Interpretation Comments SODIUM (BEAKER) 142 meq/L 136-145 (test code = 381) POTASSIUM (BEAKER) 4.1 meq/L 3.5-5.1 (test code = 379) CHLORIDE (BEAKER) 104 meq/L 98-107 (test code = 382) CO2 (BEAKER) (test 32 meq/L 22-29 H code = 355) BLOOD UREA NITROGEN 28 mg/dL 7-21 H (BEAKER) (test code = 354) CREATININE (BEAKER) 0.91 mg/dL 0.57-1.25 (test code = 358) GLUCOSE RANDOM 96 mg/dL 70-105 (BEAKER) (test code = 652) CALCIUM (BEAKER) 9.4 mg/dL 8.4-10.2 (test code = 697) EGFR (BEAKER) (test 59 mL/min/1.73 ESTIMA JOYCE GFR IS code = 1092) sq m NOT ACCURATE CREATININE CLEARANCE IN PREDICTING GLOMERULAR FILTRATION RATE . ESTIMATED GFR I S NOT APPLICABLE FOR DIALYSIS PATIEN TS. CBC W/PLT COUNT & AUTO [id number] 05:25:00 Test Item Value Reference Range Interpretation Comments WHITE BLOOD CELL COUNT (BEAKER) 7.0 K/ L 3.5-10.5 (test code = 775) RED BLOOD CELL COUNT (BEAKER) 4.68 M/ L 3.93-5.22 (test code = 761) HEMOGLOBIN (BEAKER) (test code = 14.1 GM/DL 11.2-15.7 410) HEMATOCRIT (BEAKER) (test code = 45.7 % 34.1-44.9 H 411) MEAN CORPUSCULAR VOLUME (BEAKER) 97.6 fL 79.4-94.8 H (test code = 753) MEAN CORPUSCULAR HEMOGLOBIN 30.1 pg 25.6-32.2 (BEAKER) (test code = 751) MEAN CORPUSCULAR HEMOGLOBIN CONC 30.9 GM/DL 32.2-35.5 L (BEAKER) (test code = 752) RED CELL DISTRIBUTION WIDTH 13.4 % 11.7-14.4 (BEAKER) (test code = 412) PLATELET COUNT (BEAKER) (test 217 K/CU MM 150-450 code = 756) MEAN PLATELET VOLUME (BEAKER) 11.4 fL 9.4-12.3 (test code = 754) NUCLEATED RED BLOOD CELLS 0 /100 WBC 0-0 (BEAKER) (test code = 413) NEUTROPHILS RELATIVE PERCENT 71 % (BEAKER) (test code = 429) LYMPHOCYTES RELATIVE PERCENT 17 % (BEAKER) (test code = 430) MONOCYTES RELATIVE PERCENT 8 % (BEAKER) (test code = 431) EOSINOPHILS RELATIVE PERCENT 2 % (BEAKER) (test code = 432) BASOPHILS RELATIVE PERCENT 1 % (BEAKER) (test code = 437) NEUTROPHILS ABSOLUTE COUNT 4.97 K/ L 1.56-6.13 (BEAKER) (test code = 670) LYMPHOCYTES ABSOLUTE COUNT 1.17 K/ L 1.18-3.74 L (BEAKER) (test code = 414) MONOCYTES ABSOLUTE COUNT (BEAKER) 0.57 K/ L 0.24-0.36 H (test code = 415) EOSINOPHILS ABSOLUTE COUNT 0.17 K/ L 0.04-0.36 (BEAKER) (test code = 416) BASOPHILS ABSOLUTE COUNT (BEAKER) 0.06 K/ L 0.01-0.08 (test code = 417) IMMATURE GRANULOCYTES-RELATIVE 0 % 0-1 PERCENT (BEAKER) (test code = 2801) POCT-GLUCOSE [id number] 00:02:00 Test Item Value Reference Range Interpretation Comments POC-GLUCOSE METER 191 mg/dL 70-110 H TESTED AT [facility] 6720 (BEAKER) (test code = [facility] Miguel A [facility] 1538) [id number] POCT-GLUCOSE [id number] 17:16:00 Test Item Value Reference Range Interpretation Comments POC-GLUCOSE METER 170 mg/dL 70-110 H TESTED AT [facility] 6720 (BEAKER) (test code = [facility] 1538) [id number] POCT-GLUCOSE [id number] 09:03:00 Test Item Value Reference Range Interpretation Comments POC-GLUCOSE METER 97 mg/dL 70-110 TESTED AT [facility] 6720 (BEAKER) (test code = [facility] [address] 1538) [id number] 07:03:00 Test Item Value Reference Range Interpretation Comments MAGNESIUM (BEAKER) (test code = 1.9 mg/dL 1.6-2.6 627) BASIC METABOLIC [id number] 07:03:00 Test Item Value Reference Range Interpretation Comments SODIUM (BEAKER) 141 meq/L 136-145 (test code = 381) POTASSIUM (BEAKER) 4.0 meq/L 3.5-5.1 (test code = 379) CHLORIDE (BEAKER) 104 meq/L 98-107 (test code = 382) CO2 (BEAKER) (test 30 meq/L 22-29 H code = 355) BLOOD UREA NITROGEN 23 mg/dL 7-21 H (BEAKER) (test code = 354) CREATININE (BEAKER) 0.99 mg/dL 0.57-1.25 (test code = 358) GLUCOSE RANDOM 93 mg/dL 70-105 (BEAKER) (test code = 652) CALCIUM (BEAKER) 9.3 mg/dL 8.4-10.2 (test code = 697) EGFR (BEAKER) (test 53 mL/min/1.73 ESTIMA JOYCE GFR IS code = 1092) sq m NOT ACCURATE CREATININE CLEARANCE IN PREDICTING GLOMERULAR FILTRATION RATE . ESTIMATED GFR I S NOT APPLICABLE FOR DIALYSIS PATIEN TS. [id number] 07:03:00 Test Item Value Reference Range Interpretation Comments LIPASE (BEAKER) (test code = 749) 101 U/L 8-78 H CBC W/PLT COUNT & AUTO [id number] 06:46:00 Test Item Value Reference Range Interpretation Comments WHITE BLOOD CELL COUNT (BEAKER) 8.3 K/ L 3.5-10.5 (test code = 775) RED BLOOD CELL COUNT (BEAKER) 4.88 M/ L 3.93-5.22 (test code = 761) HEMOGLOBIN (BEAKER) (test code = 14.3 GM/DL 11.2-15.7 410) HEMATOCRIT (BEAKER) (test code = 47.6 % 34.1-44.9 H 411) MEAN CORPUSCULAR VOLUME (BEAKER) 97.5 fL 79.4-94.8 H (test code = 753) MEAN CORPUSCULAR HEMOGLOBIN 29.3 pg 25.6-32.2 (BEAKER) (test code = 751) MEAN CORPUSCULAR HEMOGLOBIN CONC 30.0 GM/DL 32.2-35.5 L (BEAKER) (test code = 752) RED CELL DISTRIBUTION WIDTH 13.2 % 11.7-14.4 (BEAKER) (test code = 412) PLATELET COUNT (BEAKER) (test 216 K/CU MM 150-450 code = 756) MEAN PLATELET VOLUME (BEAKER) 11.3 fL 9.4-12.3 (test code = 754) NUCLEATED RED BLOOD CELLS 0 /100 WBC 0-0 (BEAKER) (test code = 413) NEUTROPHILS RELATIVE PERCENT 76 % (BEAKER) (test code = 429) LYMPHOCYTES RELATIVE PERCENT 13 % (BEAKER) (test code = 430) MONOCYTES RELATIVE PERCENT 7 % (BEAKER) (test code = 431) EOSINOPHILS RELATIVE PERCENT 3 % (BEAKER) (test code = 432) BASOPHILS RELATIVE PERCENT 1 % (BEAKER) (test code = 437) NEUTROPHILS ABSOLUTE COUNT 6.34 K/ L 1.56-6.13 H (BEAKER) (test code = 670) LYMPHOCYTES ABSOLUTE COUNT 1.05 K/ L 1.18-3.74 L (BEAKER) (test code = 414) MONOCYTES ABSOLUTE COUNT (BEAKER) 0.61 K/ L 0.24-0.36 H (test code = 415) EOSINOPHILS ABSOLUTE COUNT 0.26 K/ L 0.04-0.36 (BEAKER) (test code = 416) BASOPHILS ABSOLUTE COUNT (BEAKER) 0.06 K/ L 0.01-0.08 (test code = 417) IMMATURE GRANULOCYTES-RELATIVE 0 % 0-1 PERCENT (BEAKER) (test code = 2801) POCT-GLUCOSE [id number] 22:21:00 Test Item Value Reference Range Interpretation Comments POC-GLUCOSE METER 103 mg/dL 70-110 TESTED AT [place] [address] [facility] (test code = [facility] 1538) [id number] POCT-GLUCOSE [id number] 17:07:00 Test Item Value Reference Range Interpretation Comments POC-GLUCOSE METER 147 mg/dL 70-110 H TESTED AT [place] [address] ([facility]) (test code = [facility] 1538) [id number] POCT-GLUCOSE [id number] 09:05:00 Test Item Value Reference Range Interpretation Comments POC-GLUCOSE METER 117 mg/dL 70-110 H TESTED AT [place] [address] ([facility]) (test code = [facility] 1538) [id number] CBC W/PLT COUNT & AUTO [id number] 07:06:00 Test Item Value Reference Range Interpretation Comments WHITE BLOOD CELL COUNT (BEAKER) 10.5 K/ L 3.5-10.5 (test code = 775) RED BLOOD CELL COUNT (BEAKER) 5.13 M/ L 3.93-5.22 (test code = 761) HEMOGLOBIN (BEAKER) (test code = 15.1 GM/DL 11.2-15.7 410) HEMATOCRIT (BEAKER) (test code = 50.7 % 34.1-44.9 H 411) MEAN CORPUSCULAR VOLUME (BEAKER) 98.8 fL 79.4-94.8 H (test code = 753) MEAN CORPUSCULAR HEMOGLOBIN 29.4 pg 25.6-32.2 (BEAKER) (test code = 751) MEAN CORPUSCULAR HEMOGLOBIN CONC 29.8 GM/DL 32.2-35.5 L (BEAKER) (test code = 752) RED CELL DISTRIBUTION WIDTH 13.1 % 11.7-14.4 (BEAKER) (test code = 412) PLATELET COUNT (BEAKER) (test 230 K/CU MM 150-450 code = 756) MEAN PLATELET VOLUME (BEAKER) 11.6 fL 9.4-12.3 (test code = 754) NUCLEATED RED BLOOD CELLS 0 /100 WBC 0-0 (BEAKER) (test code = 413) NEUTROPHILS RELATIVE PERCENT 79 % (BEAKER) (test code = 429) LYMPHOCYTES RELATIVE PERCENT 11 % (BEAKER) (test code = 430) MONOCYTES RELATIVE PERCENT 7 % (BEAKER) (test code = 431) EOSINOPHILS RELATIVE PERCENT 3 % (BEAKER) (test code = 432) BASOPHILS RELATIVE PERCENT 1 % (BEAKER) (test code = 437) NEUTROPHILS ABSOLUTE COUNT 8.32 K/ L 1.56-6.13 H (BEAKER) (test code = 670) LYMPHOCYTES ABSOLUTE COUNT 1.13 K/ L 1.18-3.74 L (BEAKER) (test code = 414) MONOCYTES ABSOLUTE COUNT (BEAKER) 0.68 K/ L 0.24-0.36 H (test code = 415) EOSINOPHILS ABSOLUTE COUNT 0.26 K/ L 0.04-0.36 (BEAKER) (test code = 416) BASOPHILS ABSOLUTE COUNT (BEAKER) 0.07 K/ L 0.01-0.08 (test code = 417) IMMATURE GRANULOCYTES-RELATIVE 1 % 0-1 PERCENT (BEAKER) (test code = 2801) [id number] 06:38:00 Test Item Value Reference Range Interpretation Comments MAGNESIUM (BEAKER) 2.0 mg/dL 1.6-2.6 Specimen slightly (test code = 627) hemolyzed BASIC METABOLIC [id number] 06:38:00 Test Item Value Reference Range Interpretation Comments SODIUM (BEAKER) 141 meq/L 136-145 (test code = 381) POTASSIUM (BEAKER) 4.3 meq/L 3.5-5.1 Specimen slightly (test code = 379) hemolyzed CHLORIDE (BEAKER) 106 meq/L 98-107 (test code = 382) CO2 (BEAKER) (test 23 meq/L 22-29 code = 355) BLOOD UREA NITROGEN 20 mg/dL 7-21 (BEAKER) (test code = 354) CREATININE (BEAKER) 0.81 mg/dL 0.57-1.25 Specimen slightly (test code = 358) hemolyzed GLUCOSE RANDOM 105 mg/dL 70-105 (BEAKER) (test code = 652) CALCIUM (BEAKER) 9.2 mg/dL 8.4-10.2 (test code = 697) EGFR (BEAKER) (test 67 mL/min/1.73 ESTIMA JOYCE GFR IS code = 1092) sq m NOT ACCURATE CREATININE CLEARANCE IN PREDICTING GLOMERULAR FILTRATION RATE . ESTIMATED GFR I S NOT APPLICABLE FOR DIALYSIS PATIEN TS. HEPATIC FUNCTION [id number] 06:38:00 Test Item Value Reference Range Interpretation Comments TOTAL PROTEIN (BEAKER) 6.9 gm/dL 6.0-8.3 Speci men slightly (test code = 770) hemolyzed ALBUMIN (BEAKER) (test 3.4 g/dL 3.5-5.0 L Speci men slightly code = 1145) hemolyzed BILIRUBIN TOTAL 0.8 mg/dL 0.2-1.2 Specimen sli ghtly (BEAKER) (test code = hemoly zed 377) BILIRUBIN DIRECT 0.3 mg/dL 0.1-0.5 Specimen sl ightly (BEAKER) (test code = hemoly zed 706) ALKALINE PHOSPHATASE 33 U/L 40-150 L (BEAKER) (test code = 346) AST (SGOT) (BEAKER) 32 U/L 5-34 Specimen slightly (test code = 353) hemolyzed ALT (SGPT) (BEAKER) 17 U/L 6-55 Specimen slightly (test code = 347) hemolyzed [id number] 06:38:00 Test Item Value Reference Range Interpretation Comments LIPASE (BEAKER) (test code = 749) 122 U/L 8-78 H POCT-GLUCOSE [id number] 21:48:00 Test Item Value Reference Range Interpretation Comments POC-GLUCOSE METER 102 mg/dL 70-110 TESTED AT [place] [address] ([facility]) (test code = [facility] 1538) [id number] POCT-GLUCOSE [id number] 17:46:00 Test Item Value Reference Range Interpretation Comments POC-GLUCOSE METER 145 mg/dL 70-110 H TESTED AT [place] [address] ([facility]) (test code = [facility] 1538) [id number] POCT-GLUCOSE [id number] 12:35:00 Test Item Value Reference Range Interpretation Comments POC-GLUCOSE METER 158 mg/dL 70-110 H TESTED AT [place] [address] ([facility]) (test code = [facility] 1538) [id number] POCT-GLUCOSE [id number] 07:47:00 Test Item Value Reference Range Interpretation Comments POC-GLUCOSE METER 119 mg/dL 70-110 H TESTED AT [facility] 6720 (BEAKER) (test code = [place] 1538) [id number] 06:40:00 Test Item Value Reference Range Interpretation Comments LIPASE (BEAKER) (test code = 749) 165 U/L 8-78 H BASIC METABOLIC [id number] 06:40:00 Test Item Value Reference Range Interpretation Comments SODIUM (BEAKER) 140 meq/L 136-145 (test code = 381) POTASSIUM (BEAKER) 4.0 meq/L 3.5-5.1 Specimen slightly (test code = 379) hemolyzed CHLORIDE (BEAKER) 102 meq/L 98-107 (test code = 382) CO2 (BEAKER) (test 29 meq/L 22-29 code = 355) BLOOD UREA NITROGEN 29 mg/dL 7-21 H (BEAKER) (test code = 354) CREATININE (BEAKER) 0.84 mg/dL 0.57-1.25 Specimen slightly (test code = 358) hemolyzed GLUCOSE RANDOM 101 mg/dL 70-105 (BEAKER) (test code = 652) CALCIUM (BEAKER) 8.9 mg/dL 8.4-10.2 (test code = 697) EGFR (BEAKER) (test 65 mL/min/1.73 ESTIMA JOYCE GFR IS code = 1092) sq m NOT ACCURATE CREATININE CLEARANCE IN PREDICTING GLOMERULAR FILTRATION RATE . ESTIMATED GFR I S NOT APPLICABLE FOR DIALYSIS PATIEN TS. HEPATIC FUNCTION [id number] 06:40:00 Test Item Value Reference Range Interpretation Comments TOTAL PROTEIN (BEAKER) 6.6 gm/dL 6.0-8.3 Speci men slightly (test code = 770) hemolyzed ALBUMIN (BEAKER) (test 3.3 g/dL 3.5-5.0 L Speci men slightly code = 1145) hemolyzed BILIRUBIN TOTAL 1.3 mg/dL 0.2-1.2 H Specimen sli ghtly (BEAKER) (test code = hemoly zed 377) BILIRUBIN DIRECT 0.6 mg/dL 0.1-0.5 H Specimen sl ightly (BEAKER) (test code = hemoly zed 706) ALKALINE PHOSPHATASE 31 U/L 40-150 L (BEAKER) (test code = 346) AST (SGOT) (BEAKER) 34 U/L 5-34 Specimen slightly (test code = 353) hemolyzed ALT (SGPT) (BEAKER) 16 U/L 6-55 Specimen slightly (test code = 347) hemolyzed CBC W/PLT COUNT & AUTO [id number] 05:57:00 Test Item Value Reference Range Interpretation Comments WHITE BLOOD CELL COUNT (BEAKER) 13.5 K/ L 3.5-10.5 H (test code = 775) RED BLOOD CELL COUNT (BEAKER) 5.03 M/ L 3.93-5.22 (test code = 761) HEMOGLOBIN (BEAKER) (test code = 15.0 GM/DL 11.2-15.7 410) HEMATOCRIT (BEAKER) (test code = 49.7 % 34.1-44.9 H 411) MEAN CORPUSCULAR VOLUME (BEAKER) 98.8 fL 79.4-94.8 H (test code = 753) MEAN CORPUSCULAR HEMOGLOBIN 29.8 pg 25.6-32.2 (BEAKER) (test code = 751) MEAN CORPUSCULAR HEMOGLOBIN CONC 30.2 GM/DL 32.2-35.5 L (BEAKER) (test code = 752) RED CELL DISTRIBUTION WIDTH 13.3 % 11.7-14.4 (BEAKER) (test code = 412) PLATELET COUNT (BEAKER) (test 184 K/CU MM 150-450 code = 756) MEAN PLATELET VOLUME (BEAKER) 12.0 fL 9.4-12.3 (test code = 754) NUCLEATED RED BLOOD CELLS 0 /100 WBC 0-0 (BEAKER) (test code = 413) NEUTROPHILS RELATIVE PERCENT 84 % (BEAKER) (test code = 429) LYMPHOCYTES RELATIVE PERCENT 7 % (BEAKER) (test code = 430) MONOCYTES RELATIVE PERCENT 6 % (BEAKER) (test code = 431) EOSINOPHILS RELATIVE PERCENT 1 % (BEAKER) (test code = 432) BASOPHILS RELATIVE PERCENT 1 % (BEAKER) (test code = 437) NEUTROPHILS ABSOLUTE COUNT 11.36 K/ L 1.56-6.13 H (BEAKER) (test code = 670) LYMPHOCYTES ABSOLUTE COUNT 0.91 K/ L 1.18-3.74 L ([facility]) (test code = 414) MONOCYTES ABSOLUTE COUNT ([facility]) 0.87 K/ L 0.24-0.36 H (test code = 415) EOSINOPHILS ABSOLUTE COUNT 0.19 K/ L 0.04-0.36 ([facility]) (test code = 416) BASOPHILS ABSOLUTE COUNT ([facility]) 0.07 K/ L 0.01-0.08 (test code = 417) IMMATURE GRANULOCYTES-RELATIVE 1 % 0-1 PERCENT ([facility]) (test code = 2801) POCT-GLUCOSE [id number] 21:35:00 Test Item Value Reference Range Interpretation Comments POC-GLUCOSE METER 160 mg/dL 70-110 H TESTED AT [place] [address] ([facility]) ([facility] = [facility] 1538) [address] POCT-GLUCOSE [id number] 18:42:00 Test Item Value Reference Range Interpretation Comments POC-GLUCOSE METER 119 mg/dL 70-110 H TESTED AT [place] [address] ([facility]) (test code = OTILIA Grady [facility] 1538) [address] POCT-GLUCOSE [id number] 14:33:00 Test Item Value Reference Range Interpretation Comments POC-GLUCOSE METER 80 mg/dL 70-110 TESTED AT [place] [address] ([facility]) (test code = [facility] Miguel A [facility] [address] 1538) POCT-GLUCOSE [id number] 12:29:00 Test Item Value Reference Range Interpretation Comments POC-GLUCOSE METER 81 mg/dL 70-110 TESTED AT [place] [address] ([facility]) (test code = [facility] Miguel A [facility] [address] 1538) RAD, CHEST, 1 VIEW, NON [id number] 09:58:00Reason for exam:->copdShould this be performed at the bedside?->YesFINAL REPORT RAD, CHEST, 1 VIEW, NON DEPT INDICATION: copd COMPARISON: March 21, 2018 FINDINGS: Portable frontal view of the chest. IMPRESSION: Support Lines: None. Lungs and pleura: Clear lungs. No pneumothorax.Heart and mediastinum: Stable contours. Stable pacer apparatus.Additional findings: None. Signed: JR Jerome Robert MDReport Verified Date/Time: 06/14/2019 09:58:25 Reading Location: [facility] C013V Neuro Reading Room HEMOGLOBIN [id number] 09:20:00 Test Item Value Reference Range Interpretation Comments HEMOGLOBIN A1C (BEAKER) (test code = 7.1 % 4.3-6.1 H 368) LIPID [id number] 06:36:00 Test Item Value Reference Range Interpretation Comments TRIGLYCERIDES (BEAKER) (test code = 59 mg/dL 540) CHOLESTEROL (BEAKER) (test code = 134 mg/dL 631) HDL CHOLESTEROL (BEAKER) (test code 50 mg/dL = 976) LDL CHOLESTEROL CALCULATED (BEAKER) 72 mg/dL (test code = 633) Triglyceride Reference Range: Low Risk <150 Borderline 150-199 High Risk 200-499 Very High Risk >=500Cholesterol Reference Range: Low Risk <200 Borderline 200-239 High Risk >240HDL Cholesterol Reference Range: Low Risk >=60 High Risk <40LDL Cholesterol Reference Range: Optimal <100 Near Optimal 100-129 Borderline 130-159 High 160-189 Very High >=190BASIC METABOLIC [id number] 06:36:00 Test Item Value Reference Range Interpretation Comments SODIUM (BEAKER) 144 meq/L 136-145 (test code = 381) POTASSIUM (BEAKER) 3.9 meq/L 3.5-5.1 (test code = 379) CHLORIDE (BEAKER) 105 meq/L 98-107 (test code = 382) CO2 (BEAKER) (test 26 meq/L 22-29 code = 355) BLOOD UREA NITROGEN 24 mg/dL 7-21 H (BEAKER) (test code = 354) CREATININE (BEAKER) 0.85 mg/dL 0.57-1.25 (test code = 358) GLUCOSE RANDOM 68 mg/dL 70-105 L (BEAKER) (test code = 652) CALCIUM (BEAKER) 9.0 mg/dL 8.4-10.2 (test code = 697) EGFR (BEAKER) (test 64 mL/min/1.73 ESTIMA JOYCE GFR IS code = 1092) sq m NOT ACCURATE CREATININE CLEARANCE IN PREDICTING GLOMERULAR FILTRATION RATE . ESTIMATED GFR I S NOT APPLICABLE FOR DIALYSIS PATIEN TS. HEPATIC FUNCTION [id number] 06:36:00 Test Item Value Reference Range Interpretation Comments TOTAL PROTEIN (BEAKER) (test code = 7.0 gm/dL 6.0-8.3 770) ALBUMIN (BEAKER) (test code = 1145) 3.6 g/dL 3.5-5.0 BILIRUBIN TOTAL (BEAKER) (test code 1.2 mg/dL 0.2-1.2 = 377) BILIRUBIN DIRECT (BEAKER) (test 0.6 mg/dL 0.1-0.5 H code = 706) ALKALINE PHOSPHATASE (BEAKER) (test 31 U/L 40-150 L code = 346) AST (SGOT) (BEAKER) (test code = 33 U/L 5-34 353) ALT (SGPT) (BEAKER) (test code = 19 U/L 6-55 347) [id number] 06:36:00 Test Item Value Reference Range Interpretation Comments AMYLASE (BEAKER) (test code = 349) 368 U/L 25-125 H [id number] 06:36:00 Test Item Value Reference Range Interpretation Comments LIPASE (BEAKER) (test code = 749) 451 U/L 8-78 H POCT-GLUCOSE [id number] 06:34:00 Test Item Value Reference Range Interpretation Comments POC-GLUCOSE METER 73 mg/dL 70-110 TESTED AT [facility] 6720 (BEAKER) (test code = OTILIA Grady [facility] [address] 1538) B-TYPE NATRIURETIC FACTOR (BNP)2019-06-14 06:32:00 Test Item Value Reference Range Interpretation Comments B-TYPE NATRIURETIC PEPTIDE (BEAKER) 376 pg/mL 0-100 H (test code = 700) CBC W/PLT COUNT & AUTO [id number] 06:23:00 Test Item Value Reference Range Interpretation Comments WHITE BLOOD CELL COUNT (BEAKER) 12.9 K/ L 3.5-10.5 H (test code = 775) RED BLOOD CELL COUNT (BEAKER) 5.60 M/ L 3.93-5.22 H (test code = 761) HEMOGLOBIN (BEAKER) (test code = 16.7 GM/DL 11.2-15.7 H 410) HEMATOCRIT (BEAKER) (test code = 55.2 % 34.1-44.9 H 411) MEAN CORPUSCULAR VOLUME (BEAKER) 98.6 fL 79.4-94.8 H (test code = 753) MEAN CORPUSCULAR HEMOGLOBIN 29.8 pg 25.6-32.2 (BEAKER) (test code = 751) MEAN CORPUSCULAR HEMOGLOBIN CONC 30.3 GM/DL 32.2-35.5 L (BEAKER) (test code = 752) RED CELL DISTRIBUTION WIDTH 13.3 % 11.7-14.4 (BEAKER) (test code = 412) PLATELET COUNT (BEAKER) (test 190 K/CU MM 150-450 code = 756) MEAN PLATELET VOLUME (BEAKER) 11.6 fL 9.4-12.3 (test code = 754) NUCLEATED RED BLOOD CELLS 0 /100 WBC 0-0 (BEAKER) (test code = 413) NEUTROPHILS RELATIVE PERCENT 88 % (BEAKER) (test code = 429) LYMPHOCYTES RELATIVE PERCENT 6 % (BEAKER) (test code = 430) MONOCYTES RELATIVE PERCENT 4 % (BEAKER) (test code = 431) EOSINOPHILS RELATIVE PERCENT 0 % (BEAKER) (test code = 432) BASOPHILS RELATIVE PERCENT 1 % (BEAKER) (test code = 437) NEUTROPHILS ABSOLUTE COUNT 11.32 K/ L 1.56-6.13 H (BEAKER) (test code = 670) LYMPHOCYTES ABSOLUTE COUNT 0.81 K/ L 1.18-3.74 L (BEAKER) (test code = 414) MONOCYTES ABSOLUTE COUNT (BEAKER) 0.51 K/ L 0.24-0.36 H (test code = 415) EOSINOPHILS ABSOLUTE COUNT 0.04 K/ L 0.04-0.36 (BEAKER) (test code = 416) BASOPHILS ABSOLUTE COUNT (BEAKER) 0.07 K/ L 0.01-0.08 (test code = 417) IMMATURE GRANULOCYTES-RELATIVE 1 % 0-1 PERCENT (BEAKER) (test code = 2801) PROTHROMBIN [id number] 06:21:00 Test Item Value Reference Range Interpretation Comments PROTIME (BEAKER) (test code = 13.6 seconds 11.9-14.2 759) INR (BEAKER) (test code = 370) 1.1 <=5.9 Effective 03/05/2019: PT Reference Range ChangeNew: 11.9-14.2 Previous: 11.7- 14.7RECOMMENDED COUMADIN/WARFARIN INR THERAPY RANGESSTANDARD DOSE: 2.0-3.0 Includes: PROPHYLAXIS for venous thrombosis, systemic embolization; TREATMENT for venous thrombosis and/or pulmonary embolus.HIGH RISK: Target INR is2.5-3.5 for patients wiht mechanical heart valves.POCT-GLUCOSE [id number] 00:39:00 Test Item Value Reference Range Interpretation Comments POC-GLUCOSE METER 72 mg/dL 70-110 TESTED AT [facility] 6720 (BEAKER) (test code = OTILIA Grady [facility] [address] 1538) POCT-LACTIC ACID, [id number] 00:00:00 Test Item Value Reference Range Interpretation Comments POC-LACTIC ACID, 0.7 mmol/L 0.4-1.3 TESTED AT [facility] 6720 ARTERIAL (BEAKER) NOY [facility] [place] (test code = 2804) [address] POCT-BLOOD GASES, [id number] 00:00:00 Test Item Value Reference Range Interpretation Comments TEMP, CELSIUS-POC 37.4 (BEAKER) (test code = 1834) FIO2-POC (BEAKER) 28 TESTED AT [facility] 6720 (test code = 1835) [place] [address] PH, ARTERIAL-POC 7.376 7.350-7.450 (BEAKER) (test code = 1836) PCO2, ARTERIAL-POC 56.3 mm Hg 35.0-45.0 H (BEAKER) (test code = 1837) PO2, ARTERIAL-POC 62.0 mm Hg 80.0-90.0 L (BEAKER) (test code = 1838) SO2, ARTERIAL-POC 90.0 % 96.0-97.0 L (BEAKER) (test code = 1839) HCO3, ARTERIAL-POC 32.8 meq/L 21.0-29.0 H (BEAKER) (test code = 1840) BASE EXCESS, 8.0 meq/L -2.0-3.0 H ARTERIAL-POC (BEAKER) (test code = 1841) [id number] 00:00:00 Test Item Value Reference Range Interpretation Comments POC-SODIUM (BEAKER) 142 meq/L 135-148 TESTED A T [place] [address] (test code = 1542) NOY [facility] [address] [id number] 00:00:00 Test Item Value Reference Range Interpretation Comments POC-POTASSIUM 3.5 meq/L 3.6-5.5 L TESTED AT [place] [address] ([facility]) (test code [facility] [address] = 1540) [id number] 00:00:00 Test Item Value Reference Range Interpretation Comments POC-GLUCOSE (AKER) 80 mg/dL 70-110 TESTED AT [place] [address] (test code = 1855) [facility] [address] POCT-CALCIUM [id number] 00:00:00 Test Item Value Reference Range Interpretation Comments POC-CALCIUM IONIZED 1.17 mmol/L 1.12-1.27 TESTED A T [place] [address] ([facility]) (test code = [facility] 1536) [address] [id number] 00:00:00 Test Item Value Reference Range Interpretation Comments POC-HEMATOCRIT 50 % 36-45 H TESTED AT [place] [address] ([facility]) (test code = [facility] [address] 1857) [id number] 00:00:00 Test Item Value Reference Range Interpretation Comments POC-HEMOGLOBIN 17.0 g/dL 12.0-15.0 H TESTED AT [place] [address] ([facility]) (test code [facility] = 1856) [id number] AT [place] [address] NOY [facility] [address] POCT-GLUCOSE [id number] 20:48:00 Test Item Value Reference Range Interpretation Comments POC-GLUCOSE METER 80 mg/dL 70-110 TESTED AT [place] [address] ([facility]) (test code = [facility] [address] 1538) AFB CULTURE + [id number] 00:11:00 Test Item Value Reference Range Interpretation Comments CULTURE (BEAKER) (test No acid-fast bacilli code = 1095) isolated in 42 days AFB SMEAR ([facility]) No acid fast bacilli (test code = 994) seen FUNGUS CULTURE + [id number] 17:08:00 Test Item Value Reference Range Interpretation Comments CULTURE (BEAKER) (test No fungus isolated in code = 1095) 28 days FUNGUS SMEAR (BEAKER) No fungi seen (test code = 1406) AFB CULTURE + [id number] 02:56:00 Test Item Value Reference Range Interpretation Comments CULTURE (BEAKER) (test No acid-fast bacilli code = 1095) isolated in 42 days AFB SMEAR (BEAKER) No acid fast bacilli (test code = 994) seen ANAEROBIC [id number] 17:45:00 Test Item Value Reference Range Interpretation Comments CULTURE (BEAKER) (test No anaerobes isolated code = 1095) BLOOD [id number] 17:43:00 Test Item Value Reference Range Interpretation Comments CULTURE (BEAKER) (test No growth in 5 days code = 1095) BLOOD [id number] 17:43:00 Test Item Value Reference Range Interpretation Comments CULTURE (BEAKER) (test No growth in 5 days code = 1095) POCT-GLUCOSE [id number] 12:38:00 Test Item Value Reference Range Interpretation Comments POC-GLUCOSE METER 147 mg/dL 70-110 H TESTED AT [facility] 67 ([facility]) (test code = OTILIA Grady [facility] 1538) [address] WOUND CULTURE + GRAM [id number] 10:46:00 Test Item Value Reference Interpretation Comments Range CULTURE (BEAKER) PSEUDOMONAS A 4+ Pseudomo josh (test code = 1095) AERUGINOSA aeruginos a Amikacin (test code Susceptible S = 1) 0-16 , Resistant <0 or >16 Aztreonam (test code Susceptible S = 32) 0-8 , Resistant <0 or >8 Cefepime (test code Susceptible S = 51) 0-8 , Resistant <0 or >8 Ceftazidime (test Susceptible S code = 27) 0-8 , Resistant <0 or >8 Ciprofloxacin (test Susceptible S code = 7) 0-1 , Resistant <0 or >1 Doripenem (test code Susceptible S = 100) 0-2 , Resistant <0 or >2 Gentamicin (test Susceptible S code = 18) 0-4 , Resistant <0 or >4 Imipenem (test code Susceptible S = 19) 0-2 , Resistant <0 or >2 Levofloxacin (test Susceptible S code = 22) 0-2 , Resistant <0 or >2 Meropenem (test code Susceptible S = 34) 0-2 , Resistant <0 or >2 Piperacillin (test Susceptible S code = 24) 0-16 , Resistant <0 or >16 Piperacillin + Susceptible S Tazobactam (test 0-16 , code = 29) Resistant <0 or >16 Tobramycin (test Susceptible S code = 25) 0-4 , Resistant <0 or >4 CULTURE (BEAKER) PSEUDOMONAS A 4+ Pseudomo josh (test code = 1095) AERUGINOSA aeruginos aof a second type Amikacin (test code Susceptible S = 1) 0-16 , Resistant <0 or >16 Aztreonam (test code Susceptible S = 32) 0-8 , Resistant <0 or >8 Cefepime (test code Susceptible S = 51) 0-8 , Resistant <0 or >8 Ceftazidime (test Susceptible S code = 27) 0-8 , Resistant <0 or >8 Ciprofloxacin (test Susceptible S code = 7) 0-1 , Resistant <0 or >1 Doripenem (test code Susceptible S = 100) 0-2 , Resistant <0 or >2 Gentamicin (test Susceptible S code = 18) 0-4 , Resistant <0 or >4 Imipenem (test code Susceptible S = 19) 0-2 , Resistant <0 or >2 Levofloxacin (test Susceptible S code = 22) 0-2 , Resistant <0 or >2 Meropenem (test code Susceptible S = 34) 0-2 , Resistant <0 or >2 Piperacillin (test Susceptible S code = 24) 0-16 , Resistant <0 or >16 Piperacillin + Susceptible S Tazobactam (test 0-16 , code = 29) Resistant <0 or >16 Tobramycin (test Susceptible S code = 25) 0-4 , Resistant <0 or >4 CULTURE (BEAKER) KLEBSIELLA A <1+ Klebsie lla (test code = 1095) PNEUMONIAE pneumonia e Amikacin (test code S = 1) Ampicillin + R Sulbactam (test code = 6) Aztreonam (test code S = 32) Cefepime (test code S = 51) Cefoxitin (test code R = 68) Ceftazidime (test S code = 27) Ceftriaxone (test S code = 52) Ertapenem (test code S = 38) Gentamicin (test S code = 18) Levofloxacin (test S code = 22) Meropenem (test code S = 34) Nitrofurantoin (test R code = 23) Piperacillin + S Tazobactam (test code = 29) Tetracycline (test R code = 2) Tobramycin (test S code = 25) Trimethoprim + S Sulfamethoxazole (test code = 47) CULTURE (BEAKER) COAGULASE A 1+ Coagulas e (test code = 1095) NEGATIVE negative STAPHYLOCOCCUS Staphylococcu s Clindamycin (test R code = 10) Erythromycin (test R code = 4) Levofloxacin (test R code = 22) Linezolid (test code S = 40) Nitrofurantoin (test S code = 23) Oxacillin (test code R = 14) Rifampin (test code S = 43) Tetracycline (test S code = 2) Trimethoprim + R Sulfamethoxazole (test code = 47) Vancomycin (test Susceptible S code = 13) 0-4 , Resistant <0 or >4 CULTURE (BEAKER) PSEUDOMONAS A 4+ Pseudomo josh (test code = 1095) AERUGINOSA aeruginos aof a third type Amikacin (test code Susceptible S = 1) 0-16 , Resistant <0 or >16 Aztreonam (test code Susceptible S = 32) 0-8 , Resistant <0 or >8 Cefepime (test code Susceptible S = 51) 0-8 , Resistant <0 or >8 Ceftazidime (test Susceptible S code = 27) 0-8 , Resistant <0 or >8 Ciprofloxacin (test Susceptible S code = 7) 0-1 , Resistant <0 or >1 Doripenem (test code Susceptible S = 100) 0-2 , Resistant <0 or >2 Gentamicin (test Susceptible S code = 18) 0-4 , Resistant <0 or >4 Imipenem (test code Susceptible R = 19) 0-2 , Resistant <0 or >2 Levofloxacin (test Susceptible S code = 22) 0-2 , Resistant <0 or >2 Meropenem (test code Susceptible S = 34) 0-2 , Resistant <0 or >2 Piperacillin (test Susceptible S code = 24) 0-16 , Resistant <0 or >16 Piperacillin + Susceptible S Tazobactam (test 0-16 , code = 29) Resistant <0 or >16 Tobramycin (test Susceptible S code = 25) 0-4 , Resistant <0 or >4 CULTURE (BEAKER) A <1+ Coagula se (test code = 1095) negative Staphylococcuso f a second type GRAM STAIN RESULT <1+ WBCs ([facility]) (test code = 1123) GRAM STAIN RESULT <1+ gram negative ([facility]) (test code rods = 874888) SURGICALLY OBTAINED CULTURE + GRAM [id number] 08:30:00 Test Item Value Reference Range Interpretation Comments CULTURE ([facility]) (test code No growth = 1095) GRAM STAIN RESULT ([facility]) No WBCs (test code = 1123) GRAM STAIN RESULT ([facility]) No organisms seen (test code = 90903) POCT-GLUCOSE [id number] 07:23:00 Test Item Value Reference Range Interpretation Comments POC-GLUCOSE METER 97 mg/dL 70-110 TESTED AT [place] [address] ([facility]) (test code = [facility] [address] 1538) POCT-GLUCOSE [id number] 22:04:00 Test Item Value Reference Range Interpretation Comments POC-GLUCOSE METER 177 mg/dL 70-110 H TESTED AT [place] [address] ([facility]) (test code = [facility] 1538) [address] POCT-GLUCOSE [id number] 17:38:00 Test Item Value Reference Range Interpretation Comments POC-GLUCOSE METER 232 mg/dL 70-110 H TESTED AT [place] [address] ([facility]) (test code = [facility] 1538) [address] POCT-GLUCOSE [id number] 12:40:00 Test Item Value Reference Range Interpretation Comments POC-GLUCOSE METER 139 mg/dL 70-110 H TESTED AT [place] [address] ([facility]) (test code = [facility] 1538) [address] POCT-GLUCOSE [id number] 07:47:00 Test Item Value Reference Range Interpretation Comments POC-GLUCOSE METER 96 mg/dL 70-110 TESTED AT [place] [address] ([facility]) (test code = [facility] [address] 1538) POCT-GLUCOSE [id number] 04:52:00 Test Item Value Reference Range Interpretation Comments POC-GLUCOSE METER 112 mg/dL 70-110 H TESTED AT [place] [address] ([facility]) (test code = [facility] 1538) [address] POCT-GLUCOSE [id number] 23:28:00 Test Item Value Reference Range Interpretation Comments POC-GLUCOSE METER 114 mg/dL 70-110 H TESTED AT [facility] 6720 ([facility]) (test code = OTILIA Grady [facility] 1538) [address] POCT-GLUCOSE [id number] 17:12:00 Test Item Value Reference Range Interpretation Comments POC-GLUCOSE METER 155 mg/dL 70-110 H TESTED AT [place] [address] ([facility]) (test code = OTILIA Grady [facility] 1538) [address] POCT-GLUCOSE [id number] 12:17:00 Test Item Value Reference Range Interpretation Comments POC-GLUCOSE METER 163 mg/dL 70-110 H TESTED AT [place] [address] ([facility]) (test code = OTILIA Grady [facility] 1538) [address] FUNGUS CULTURE + [id number] 09:29:00 Test Item Value Reference Range Interpretation Comments CULTURE ([facility]) (test No fungus isolated in code = 1095) 28 days FUNGUS SMEAR ([facility]) <1+ hyphal elements (test code = 1406) seen See smear results.POCT-GLUCOSE [id number] 21:47:00 Test Item Value Reference Range Interpretation Comments POC-GLUCOSE METER 211 mg/dL 70-110 H TESTED AT [place] [address] ([facility]) (test code = OTILIA Grady [facility] 1538) [address] POCT-GLUCOSE [id number] 17:07:00 Test Item Value Reference Range Interpretation Comments POC-GLUCOSE METER 160 mg/dL 70-110 H TESTED AT [place] [address] ([facility]) (test code = FRANCISCOIN Miguel A [facility] 1538) [address] POCT-GLUCOSE [id number] 11:56:00 Test Item Value Reference Range Interpretation Comments POC-GLUCOSE METER 108 mg/dL 70-110 TESTED AT [place] [address] ([facility]) (test code = [facility]IN Miguel A [facility] 1538) [address] COMPREHENSIVE METABOLIC [id number] 23:00:00 Test Item Value Reference Range Interpretation Comments TOTAL PROTEIN 7.5 gm/dL 6.0-8.3 ([facility]) (test code = 770) ALBUMIN ([facility]) 3.8 g/dL 3.5-5.0 (test code = 1145) ALKALINE PHOSPHATASE 53 U/L 40-150 (BEAKER) (test code = 346) BILIRUBIN TOTAL 0.3 mg/dL 0.2-1.2 (BEAKER) (test code = 377) SODIUM (BEAKER) (test 138 meq/L 136-145 code = 381) POTASSIUM (BEAKER) 3.9 meq/L 3.5-5.1 (test code = 379) CHLORIDE (BEAKER) 101 meq/L 98-107 (test code = 382) CO2 (BEAKER) (test 28 meq/L 22-29 code = 355) BLOOD UREA NITROGEN 22 mg/dL 7-21 H (BEAKER) (test code = 354) CREATININE (BEAKER) 0.98 mg/dL 0.57-1.25 (test code = 358) GLUCOSE RANDOM 154 mg/dL 70-105 H (BEAKER) (test code = 652) CALCIUM (BEAKER) 10.1 mg/dL 8.4-10.2 (test code = 697) AST (SGOT) (BEAKER) 20 U/L 5-34 (test code = 353) ALT (SGPT) (BEAKER) 12 U/L 6-55 (test code = 347) EGFR (BEAKER) (test 54 mL/min/1.73 ESTIMA JOYCE GFR IS code = 1092) sq m NOT ACCURATE CREATININE CLEARANCE IN PREDICTING GLOMERULAR FILTRATION RATE . ESTIMATED GFR I S NOT APPLICABLE FOR DIALYSIS PATIEN TS. PROTHROMBIN [id number] 22:52:00 Test Item Value Reference Range Interpretation Comments PROTIME (BEAKER) (test code = 14.0 seconds 11.7-14.7 759) INR (BEAKER) (test code = 370) 1.1 <=5.9 RECOMMENDED COUMADIN/WARFARIN INR THERAPY RANGESSTANDARD DOSE: 2.0 - 3.0 Includes: PROPHYLAXIS forvenous thrombosis, systemic embolization; TREATMENT for venous thrombosis and/or pulmonary embolus.HIGH RISK: Target INR is 2.5-3.5 for patients with mechanical heart valves.CBC W/PLT COUNT & AUTO DIFFERENTIAL 2018-04-21 22:51:00 Test Item Value Reference Range Interpretation Comments WHITE BLOOD CELL COUNT (BEAKER) 8.7 K/ L 3.5-10.5 (test code = 775) RED BLOOD CELL COUNT (BEAKER) 4.77 M/ L 3.93-5.22 (test code = 761) HEMOGLOBIN (BEAKER) (test code = 13.6 GM/DL 11.2-15.7 410) HEMATOCRIT (BEAKER) (test code = 45.4 % 34.1-44.9 H 411) MEAN CORPUSCULAR VOLUME (BEAKER) 95.2 fL 79.4-94.8 H (test code = 753) MEAN CORPUSCULAR HEMOGLOBIN 28.5 pg 25.6-32.2 (BEAKER) (test code = 751) MEAN CORPUSCULAR HEMOGLOBIN CONC 30.0 GM/DL 32.2-35.5 L (BEAKER) (test code = 752) RED CELL DISTRIBUTION WIDTH 15.2 % 11.7-14.4 H (BEAKER) (test code = 412) PLATELET COUNT (BEAKER) (test 267 K/CU MM 150-450 code = 756) MEAN PLATELET VOLUME (BEAKER) 11.2 fL 9.4-12.3 (test code = 754) NUCLEATED RED BLOOD CELLS 0 /100 WBC 0-0 (BEAKER) (test code = 413) NEUTROPHILS RELATIVE PERCENT 73 % (BEAKER) (test code = 429) LYMPHOCYTES RELATIVE PERCENT 16 % (BEAKER) (test code = 430) MONOCYTES RELATIVE PERCENT 8 % (BEAKER) (test code = 431) EOSINOPHILS RELATIVE PERCENT 1 % (BEAKER) (test code = 432) BASOPHILS RELATIVE PERCENT 1 % (BEAKER) (test code = 437) NEUTROPHILS ABSOLUTE COUNT 6.38 K/ L 1.56-6.13 H (BEAKER) (test code = 670) LYMPHOCYTES ABSOLUTE COUNT 1.37 K/ L 1.18-3.74 (BEAKER) (test code = 414) MONOCYTES ABSOLUTE COUNT (BEAKER) 0.73 K/ L 0.24-0.36 H (test code = 415) EOSINOPHILS ABSOLUTE COUNT 0.12 K/ L 0.04-0.36 (BEAKER) (test code = 416) BASOPHILS ABSOLUTE COUNT (BEAKER) 0.08 K/ L 0.01-0.08 (test code = 417) IMMATURE GRANULOCYTES-RELATIVE 1 % 0-1 PERCENT (BEAKER) (test code = 2801) POCT-GLUCOSE [id number] 22:47:00 Test Item Value Reference Range Interpretation Comments POC-GLUCOSE METER 196 mg/dL 70-110 H TESTED AT [facility] 67[address] (BEAKER) (test code = [place] 1538) [id number] POCT-GLUCOSE [id number] 17:34:00 Test Item Value Reference Range Interpretation Comments POC-GLUCOSE METER 261 mg/dL 70-110 H TESTED AT [place] [address] ([facility]) (test code = [place] 1538) [id number] POCT-GLUCOSE [id number] 16:52:00 Test Item Value Reference Range Interpretation Comments POC-GLUCOSE METER 254 mg/dL 70-110 H TESTED AT [place] [address] ([facility]) (test code = [place] 1538) [address] POCT-GLUCOSE [id number] 12:24:00 Test Item Value Reference Range Interpretation Comments POC-GLUCOSE METER 168 mg/dL 70-110 H TESTED AT [place] [address] ([facility]) (test code = [place] 1538) [address] POCT-GLUCOSE [id number] 08:52:00 Test Item Value Reference Range Interpretation Comments POC-GLUCOSE METER 139 mg/dL 70-110 H TESTED AT [place] [address] ([facility]) (test code = OTILIA Grady [facility] 1538) [address] [place], [id number] 08:32:00S/p aortic-bilateral femoral bypass with right groin [...] MDReport Verified Date/Time: 04/21/2018 08:32:26 Reading Location: [facility] B1 [id number] Consult Reading Room POCT-GLUCOSE [id number] 21:51:00 Test Item Value Reference Range Interpretation Comments POC-GLUCOSE METER 132 mg/dL 70-110 H TESTED AT [facility] 6720 (BEAKER) (test code = OTILIA Grady [facility] 1538) [address] POCT-GLUCOSE [id number] 16:54:00 Test Item Value Reference Range Interpretation Comments POC-GLUCOSE METER 126 mg/dL 70-110 H TESTED AT [place] [address] (BEAKER) (test code = FRANCISCOIN Miguel A [facility] 1538) [address] POCT-GLUCOSE [id number] 12:41:00 Test Item Value Reference Range Interpretation Comments POC-GLUCOSE METER 163 mg/dL 70-110 H TESTED AT [place] [address] (BEAKER) (test code = OTILIA Grady [facility] 1538) [address] POCT-GLUCOSE [id number] 07:37:00 Test Item Value Reference Range Interpretation Comments POC-GLUCOSE METER 96 mg/dL 70-110 TESTED AT [facility] 6720 (BEAKER) (test code = [facility] Miguel A [facility] [address] 1538) BASIC METABOLIC [id number] 06:21:00 Test Item Value Reference Range Interpretation Comments SODIUM (BEAKER) 142 meq/L 136-145 (test code = 381) POTASSIUM (BEAKER) 3.7 meq/L 3.5-5.1 (test code = 379) CHLORIDE (BEAKER) 102 meq/L 98-107 (test code = 382) CO2 (BEAKER) (test 30 meq/L 22-29 H code = 355) BLOOD UREA NITROGEN 22 mg/dL 7-21 H (BEAKER) (test code = 354) CREATININE (BEAKER) 1.05 mg/dL 0.57-1.25 (test code = 358) GLUCOSE RANDOM 88 mg/dL 70-105 (BEAKER) (test code = 652) CALCIUM (BEAKER) 10.1 mg/dL 8.4-10.2 (test code = 697) EGFR (BEAKER) (test 50 mL/min/1.73 ESTIMA JOYCE GFR IS code = 1092) sq m NOT ACCURATE CREATININE CLEARANCE IN PREDICTING GLOMERULAR FILTRATION RATE . ESTIMATED GFR I S NOT APPLICABLE FOR DIALYSIS PATIEN TS. CBC W/PLT COUNT & AUTO [id number] 05:46:00 Test Item Value Reference Range Interpretation Comments WHITE BLOOD CELL COUNT (BEAKER) 7.0 K/ L 3.5-10.5 (test code = 775) RED BLOOD CELL COUNT (BEAKER) 5.52 M/ L 3.93-5.22 H (test code = 761) HEMOGLOBIN (BEAKER) (test code = 15.6 GM/DL 11.2-15.7 410) HEMATOCRIT (BEAKER) (test code = 53.3 % 34.1-44.9 H 411) MEAN CORPUSCULAR VOLUME (BEAKER) 96.6 fL 79.4-94.8 H (test code = 753) MEAN CORPUSCULAR HEMOGLOBIN 28.3 pg 25.6-32.2 (BEAKER) (test code = 751) MEAN CORPUSCULAR HEMOGLOBIN CONC 29.3 GM/DL 32.2-35.5 L (BEAKER) (test code = 752) RED CELL DISTRIBUTION WIDTH 15.3 % 11.7-14.4 H (BEAKER) (test code = 412) PLATELET COUNT (BEAKER) (test 257 K/CU MM 150-450 code = 756) MEAN PLATELET VOLUME (BEAKER) 11.5 fL 9.4-12.3 (test code = 754) NUCLEATED RED BLOOD CELLS 0 /100 WBC 0-0 (BEAKER) (test code = 413) NEUTROPHILS RELATIVE PERCENT 58 % (BEAKER) (test code = 429) LYMPHOCYTES RELATIVE PERCENT 25 % (BEAKER) (test code = 430) MONOCYTES RELATIVE PERCENT 9 % (BEAKER) (test code = 431) EOSINOPHILS RELATIVE PERCENT 5 % (BEAKER) (test code = 432) BASOPHILS RELATIVE PERCENT 2 % (BEAKER) (test code = 437) NEUTROPHILS ABSOLUTE COUNT 4.05 K/ L 1.56-6.13 (BEAKER) (test code = 670) LYMPHOCYTES ABSOLUTE COUNT 1.76 K/ L 1.18-3.74 (BEAKER) (test code = 414) MONOCYTES ABSOLUTE COUNT (BEAKER) 0.65 K/ L 0.24-0.36 H (test code = 415) EOSINOPHILS ABSOLUTE COUNT 0.33 K/ L 0.04-0.36 (BEAKER) (test code = 416) BASOPHILS ABSOLUTE COUNT (BEAKER) 0.12 K/ L 0.01-0.08 H (test code = 417) IMMATURE GRANULOCYTES-RELATIVE 1 % 0-1 PERCENT (BEAKER) (test code = 2801) POCT-GLUCOSE [id number] 21:11:00 Test Item Value Reference Range Interpretation Comments POC-GLUCOSE METER 152 mg/dL 70-110 H TESTED AT [place] [address] ([facility]) ([facility] = [facility] 1538) [address] POCT-GLUCOSE [id number] 16:41:00 Test Item Value Reference Range Interpretation Comments POC-GLUCOSE METER 100 mg/dL 70-110 TESTED AT [place] [address] ([facility]) (test code = [facility] 1538) [address] POCT-GLUCOSE [id number] 13:05:00 Test Item Value Reference Range Interpretation Comments POC-GLUCOSE METER 127 mg/dL 70-110 H TESTED AT [place] [address] ([facility]) (test code = [facility] 1538) [address] TSH/FREE T4 IF [id number] 12:05:00 Test Item Value Reference Range Interpretation Comments THYROID STIMULATING HORMONE 2.75 uIU/mL 0.35-4.94 (BEAKER) (test code = 772) [id number] 11:48:00 Test Item Value Reference Range Interpretation Comments MAGNESIUM (BEAKER) (test code = 2.2 mg/dL 1.6-2.6 627) BASIC METABOLIC [id number] 11:48:00 Test Item Value Reference Range Interpretation Comments SODIUM (BEAKER) 142 meq/L 136-145 (test code = 381) POTASSIUM (BEAKER) 3.7 meq/L 3.5-5.1 (test code = 379) CHLORIDE (BEAKER) 103 meq/L 98-107 (test code = 382) CO2 (BEAKER) (test 30 meq/L 22-29 H code = 355) BLOOD UREA NITROGEN 27 mg/dL 7-21 H (BEAKER) (test code = 354) CREATININE (BEAKER) 1.19 mg/dL 0.57-1.25 (test code = 358) GLUCOSE RANDOM 112 mg/dL 70-105 H (BEAKER) (test code = 652) CALCIUM (BEAKER) 9.6 mg/dL 8.4-10.2 (test code = 697) EGFR (BEAKER) (test 43 mL/min/1.73 ESTIMA JOYCE GFR IS code = 1092) sq m NOT ACCURATE CREATININE CLEARANCE IN PREDICTING GLOMERULAR FILTRATION RATE . ESTIMATED GFR I S NOT APPLICABLE FOR DIALYSIS PATIEN TS. POCT-GLUCOSE [id number] 11:40:00 Test Item Value Reference Range Interpretation Comments POC-GLUCOSE METER 118 mg/dL 70-110 H TESTED AT [facility] 6720 (BEAKER) (test code = [place] 1538) [address] CBC W/PLT COUNT & AUTO [id number] 11:30:00 Test Item Value Reference Range Interpretation Comments WHITE BLOOD CELL COUNT (BEAKER) 7.3 K/ L 3.5-10.5 (test code = 775) RED BLOOD CELL COUNT (BEAKER) 4.68 M/ L 3.93-5.22 (test code = 761) HEMOGLOBIN (BEAKER) (test code = 13.4 GM/DL 11.2-15.7 410) HEMATOCRIT (BEAKER) (test code = 44.7 % 34.1-44.9 411) MEAN CORPUSCULAR VOLUME (BEAKER) 95.5 fL 79.4-94.8 H (test code = 753) MEAN CORPUSCULAR HEMOGLOBIN 28.6 pg 25.6-32.2 (BEAKER) (test code = 751) MEAN CORPUSCULAR HEMOGLOBIN CONC 30.0 GM/DL 32.2-35.5 L (BEAKER) (test code = 752) RED CELL DISTRIBUTION WIDTH 15.5 % 11.7-14.4 H (BEAKER) (test code = 412) PLATELET COUNT (BEAKER) (test 260 K/CU MM 150-450 code = 756) MEAN PLATELET VOLUME (BEAKER) 10.7 fL 9.4-12.3 (test code = 754) NUCLEATED RED BLOOD CELLS 0 /100 WBC 0-0 (BEAKER) (test code = 413) NEUTROPHILS RELATIVE PERCENT 70 % (BEAKER) (test code = 429) LYMPHOCYTES RELATIVE PERCENT 19 % (BEAKER) (test code = 430) MONOCYTES RELATIVE PERCENT 8 % (BEAKER) (test code = 431) EOSINOPHILS RELATIVE PERCENT 2 % (BEAKER) (test code = 432) BASOPHILS RELATIVE PERCENT 1 % (BEAKER) (test code = 437) NEUTROPHILS ABSOLUTE COUNT 5.11 K/ L 1.56-6.13 (BEAKER) (test code = 670) LYMPHOCYTES ABSOLUTE COUNT 1.37 K/ L 1.18-3.74 (BEAKER) (test code = 414) MONOCYTES ABSOLUTE COUNT (BEAKER) 0.59 K/ L 0.24-0.36 H (test code = 415) EOSINOPHILS ABSOLUTE COUNT 0.17 K/ L 0.04-0.36 (BEAKER) (test code = 416) BASOPHILS ABSOLUTE COUNT (BEAKER) 0.07 K/ L 0.01-0.08 (test code = 417) IMMATURE GRANULOCYTES-RELATIVE 0 % 0-1 PERCENT (BEAKER) (test code = 2801) ANAEROBIC [id number] 02:34:00 Test Item Value Reference Range Interpretation Comments CULTURE (BEAKER) (test No anaerobes isolated code = 1095) SURGICALLY OBTAINED CULTURE + GRAM [id number] 14:05:00 Test Item Value Reference Range Interpretation Comments CULTURE (BEAKER) (test code No growth = 1095) GRAM STAIN RESULT (BEAKER) 1+ WBCs (test code = 1123) GRAM STAIN RESULT (BEAKER) No organisms seen (test code = 97210) POCT-GLUCOSE [id number] 12:39:00 Test Item Value Reference Range Interpretation Comments POC-GLUCOSE METER 131 mg/dL 70-110 H TESTED AT [facility] 6720 (BEAKER) (test code = [place] 1538) [address] POCT-GLUCOSE [id number] 08:01:00 Test Item Value Reference Range Interpretation Comments POC-GLUCOSE METER 106 mg/dL 70-110 TESTED AT [facility] 6720 (BEAKER) (test code = OTILIA Grady [facility] 1538) [address] BASIC METABOLIC [id number] 06:21:00 Test Item Value Reference Range Interpretation Comments SODIUM (BEAKER) 139 meq/L 136-145 (test code = 381) POTASSIUM (BEAKER) 3.6 meq/L 3.5-5.1 (test code = 379) CHLORIDE (BEAKER) 102 meq/L 98-107 (test code = 382) CO2 (BEAKER) (test 27 meq/L 22-29 code = 355) BLOOD UREA NITROGEN 13 mg/dL 7-21 (BEAKER) (test code = 354) CREATININE (BEAKER) 0.70 mg/dL 0.57-1.25 (test code = 358) GLUCOSE RANDOM 90 mg/dL 70-105 (BEAKER) (test code = 652) CALCIUM (BEAKER) 9.2 mg/dL 8.4-10.2 (test code = 697) EGFR (BEAKER) (test 80 mL/min/1.73 ESTIMA JOYCE GFR IS code = 1092) sq m NOT ACCURATE CREATININE CLEARANCE IN PREDICTING GLOMERULAR FILTRATION RATE . ESTIMATED GFR I S NOT APPLICABLE FOR DIALYSIS PATIEN TS. CBC W/PLT COUNT & AUTO [id number] 05:48:00 Test Item Value Reference Range Interpretation Comments WHITE BLOOD CELL COUNT (BEAKER) 9.7 K/ L 3.5-10.5 (test code = 775) RED BLOOD CELL COUNT (BEAKER) 3.69 M/ L 3.93-5.22 L (test code = 761) HEMOGLOBIN (BEAKER) (test code = 10.5 GM/DL 11.2-15.7 L 410) HEMATOCRIT (BEAKER) (test code = 35.2 % 34.1-44.9 411) MEAN CORPUSCULAR VOLUME (BEAKER) 95.4 fL 79.4-94.8 H (test code = 753) MEAN CORPUSCULAR HEMOGLOBIN 28.5 pg 25.6-32.2 (BEAKER) (test code = 751) MEAN CORPUSCULAR HEMOGLOBIN CONC 29.8 GM/DL 32.2-35.5 L (BEAKER) (test code = 752) RED CELL DISTRIBUTION WIDTH 14.6 % 11.7-14.4 H (BEAKER) (test code = 412) PLATELET COUNT (BEAKER) (test 321 K/CU MM 150-450 code = 756) MEAN PLATELET VOLUME (BEAKER) 10.6 fL 9.4-12.3 (test code = 754) NUCLEATED RED BLOOD CELLS 0 /100 WBC 0-0 (BEAKER) (test code = 413) NEUTROPHILS RELATIVE PERCENT 73 % (BEAKER) (test code = 429) LYMPHOCYTES RELATIVE PERCENT 15 % (BEAKER) (test code = 430) MONOCYTES RELATIVE PERCENT 7 % (BEAKER) (test code = 431) EOSINOPHILS RELATIVE PERCENT 3 % (BEAKER) (test code = 432) BASOPHILS RELATIVE PERCENT 1 % (BEAKER) (test code = 437) NEUTROPHILS ABSOLUTE COUNT 7.06 K/ L 1.56-6.13 H (BEAKER) (test code = 670) LYMPHOCYTES ABSOLUTE COUNT 1.42 K/ L 1.18-3.74 (BEAKER) (test code = 414) MONOCYTES ABSOLUTE COUNT (BEAKER) 0.71 K/ L 0.24-0.36 H (test code = 415) EOSINOPHILS ABSOLUTE COUNT 0.27 K/ L 0.04-0.36 (BEAKER) (test code = 416) BASOPHILS ABSOLUTE COUNT (BEAKER) 0.05 K/ L 0.01-0.08 (test code = 417) IMMATURE GRANULOCYTES-RELATIVE 2 % 0-1 H PERCENT (BEAKER) (test code = 2801) POCT-GLUCOSE [id number] 21:47:00 Test Item Value Reference Range Interpretation Comments POC-GLUCOSE METER 161 mg/dL 70-110 H TESTED AT [place] [address] [facility] (test code = [facility] 1538) [address] POCT-GLUCOSE [id number] 17:08:00 Test Item Value Reference Range Interpretation Comments POC-GLUCOSE METER 189 mg/dL 70-110 H TESTED AT [place] [address] ([facility] (test code = [facility] 1538) [address] POCT-GLUCOSE [id number] 11:12:00 Test Item Value Reference Range Interpretation Comments POC-GLUCOSE METER 197 mg/dL 70-110 H TESTED AT [place] [address] ([facility] (test code = [facility] 1538) [address] POCT-GLUCOSE [id number] 07:35:00 Test Item Value Reference Range Interpretation Comments POC-GLUCOSE METER 113 mg/dL 70-110 H TESTED AT [place] [address] ([facility]) (test code = [facility] 1538) [address] BASIC METABOLIC [id number] 06:23:00 Test Item Value Reference Range Interpretation Comments SODIUM (BEAKER) 137 meq/L 136-145 (test code = 381) POTASSIUM (BEAKER) 4.3 meq/L 3.5-5.1 (test code = 379) CHLORIDE (BEAKER) 101 meq/L 98-107 (test code = 382) CO2 (BEAKER) (test 26 meq/L 22-29 code = 355) BLOOD UREA NITROGEN 12 mg/dL 7-21 (BEAKER) (test code = 354) CREATININE (BEAKER) 0.70 mg/dL 0.57-1.25 (test code = 358) GLUCOSE RANDOM 91 mg/dL 70-105 (BEAKER) (test code = 652) CALCIUM (BEAKER) 9.3 mg/dL 8.4-10.2 (test code = 697) EGFR (BEAKER) (test 80 mL/min/1.73 ESTIMA JOYCE GFR IS code = 1092) sq m NOT ACCURATE CREATININE CLEARANCE IN PREDICTING GLOMERULAR FILTRATION RATE . ESTIMATED GFR I S NOT APPLICABLE FOR DIALYSIS PATIEN TS. CBC W/PLT COUNT & AUTO [id number] 06:12:00 Test Item Value Reference Range Interpretation Comments WHITE BLOOD CELL COUNT (BEAKER) 11.9 K/ L 3.5-10.5 H (test code = 775) RED BLOOD CELL COUNT (BEAKER) 3.65 M/ L 3.93-5.22 L (test code = 761) HEMOGLOBIN (BEAKER) (test code = 10.7 GM/DL 11.2-15.7 L 410) HEMATOCRIT (BEAKER) (test code = 35.3 % 34.1-44.9 411) MEAN CORPUSCULAR VOLUME (BEAKER) 96.7 fL 79.4-94.8 H (test code = 753) MEAN CORPUSCULAR HEMOGLOBIN 29.3 pg 25.6-32.2 (BEAKER) (test code = 751) MEAN CORPUSCULAR HEMOGLOBIN CONC 30.3 GM/DL 32.2-35.5 L (BEAKER) (test code = 752) RED CELL DISTRIBUTION WIDTH 14.6 % 11.7-14.4 H (BEAKER) (test code = 412) PLATELET COUNT (BEAKER) (test 277 K/CU MM 150-450 code = 756) MEAN PLATELET VOLUME (BEAKER) 10.8 fL 9.4-12.3 (test code = 754) NUCLEATED RED BLOOD CELLS 0 /100 WBC 0-0 (BEAKER) (test code = 413) NEUTROPHILS RELATIVE PERCENT 77 % (BEAKER) (test code = 429) LYMPHOCYTES RELATIVE PERCENT 10 % (BEAKER) (test code = 430) MONOCYTES RELATIVE PERCENT 7 % (BEAKER) (test code = 431) EOSINOPHILS RELATIVE PERCENT 2 % (BEAKER) (test code = 432) BASOPHILS RELATIVE PERCENT 1 % (BEAKER) (test code = 437) NEUTROPHILS ABSOLUTE COUNT 9.13 K/ L 1.56-6.13 H (BEAKER) (test code = 670) LYMPHOCYTES ABSOLUTE COUNT 1.19 K/ L 1.18-3.74 (BEAKER) (test code = 414) MONOCYTES ABSOLUTE COUNT (BEAKER) 0.87 K/ L 0.24-0.36 H (test code = 415) EOSINOPHILS ABSOLUTE COUNT 0.26 K/ L 0.04-0.36 (BEAKER) (test code = 416) BASOPHILS ABSOLUTE COUNT (BEAKER) 0.06 K/ L 0.01-0.08 (test code = 417) IMMATURE GRANULOCYTES-RELATIVE 3 % 0-1 H PERCENT (BEAKER) (test code = 2801) POCT-GLUCOSE [id number] 21:04:00 Test Item Value Reference Range Interpretation Comments POC-GLUCOSE METER 143 mg/dL 70-110 H TESTED AT [place] [address] ([facility] (test code = [facility] Miguel A [facility] 1538) [address] POCT-GLUCOSE [id number] 17:04:00 Test Item Value Reference Range Interpretation Comments POC-GLUCOSE METER 182 mg/dL 70-110 H TESTED AT [place] [address] ([facility] (test code = [facility] 1538) [address] SPIN/CONCENTRATION [id number] 15:07:00 Test Item Value Reference Range Interpretation Comments CONCENTRATION CHARGED (BEAKER) (test Done code = 2657) POCT-GLUCOSE [id number] 11:38:00 Test Item Value Reference Range Interpretation Comments POC-GLUCOSE METER 141 mg/dL 70-110 H TESTED AT [place] [address] ([facility] (test code = [facility] 1538) [address] POCT-GLUCOSE [id number] 08:13:00 Test Item Value Reference Range Interpretation Comments POC-GLUCOSE METER 122 mg/dL 70-110 H TESTED AT [place] [address] ([facility] (test code = [facility] Miguel A [facility] 1538) [address] BASIC METABOLIC [id number] 05:20:00 Test Item Value Reference Range Interpretation Comments SODIUM (BEAKER) 138 meq/L 136-145 (test code = 381) POTASSIUM (BEAKER) 3.8 meq/L 3.5-5.1 (test code = 379) CHLORIDE (BEAKER) 102 meq/L 98-107 (test code = 382) CO2 (BEAKER) (test 28 meq/L 22-29 code = 355) BLOOD UREA NITROGEN 12 mg/dL 7-21 (BEAKER) (test code = 354) CREATININE (BEAKER) 0.72 mg/dL 0.57-1.25 (test code = 358) GLUCOSE RANDOM 104 mg/dL 70-105 (BEAKER) (test code = 652) CALCIUM (BEAKER) 8.5 mg/dL 8.4-10.2 (test code = 697) EGFR (BEAKER) (test 77 mL/min/1.73 ESTIMA JOYCE GFR IS code = 1092) sq m NOT ACCURATE CREATININE CLEARANCE IN PREDICTING GLOMERULAR FILTRATION RATE . ESTIMATED GFR I S NOT APPLICABLE FOR DIALYSIS PATIEN TS. CBC W/PLT COUNT & AUTO [id number] 04:58:00 Test Item Value Reference Range Interpretation Comments WHITE BLOOD CELL COUNT (BEAKER) 11.5 K/ L 3.5-10.5 H (test code = 775) RED BLOOD CELL COUNT (BEAKER) 3.63 M/ L 3.93-5.22 L (test code = 761) HEMOGLOBIN (BEAKER) (test code = 10.3 GM/DL 11.2-15.7 L 410) HEMATOCRIT (BEAKER) (test code = 34.4 % 34.1-44.9 411) MEAN CORPUSCULAR VOLUME (BEAKER) 94.8 fL 79.4-94.8 (test code = 753) MEAN CORPUSCULAR HEMOGLOBIN 28.4 pg 25.6-32.2 (BEAKER) (test code = 751) MEAN CORPUSCULAR HEMOGLOBIN CONC 29.9 GM/DL 32.2-35.5 L (BEAKER) (test code = 752) RED CELL DISTRIBUTION WIDTH 14.8 % 11.7-14.4 H (BEAKER) (test code = 412) PLATELET COUNT (BEAKER) (test 266 K/CU MM 150-450 code = 756) MEAN PLATELET VOLUME (BEAKER) 10.8 fL 9.4-12.3 (test code = 754) NUCLEATED RED BLOOD CELLS 0 /100 WBC 0-0 (BEAKER) (test code = 413) NEUTROPHILS RELATIVE PERCENT 79 % (BEAKER) (test code = 429) LYMPHOCYTES RELATIVE PERCENT 8 % (BEAKER) (test code = 430) MONOCYTES RELATIVE PERCENT 7 % (BEAKER) (test code = 431) EOSINOPHILS RELATIVE PERCENT 2 % (BEAKER) (test code = 432) BASOPHILS RELATIVE PERCENT 1 % (BEAKER) (test code = 437) NEUTROPHILS ABSOLUTE COUNT 9.09 K/ L 1.56-6.13 H (BEAKER) (test code = 670) LYMPHOCYTES ABSOLUTE COUNT 0.90 K/ L 1.18-3.74 L (BEAKER) (test code = 414) MONOCYTES ABSOLUTE COUNT (BEAKER) 0.76 K/ L 0.24-0.36 H (test code = 415) EOSINOPHILS ABSOLUTE COUNT 0.27 K/ L 0.04-0.36 (BEAKER) (test code = 416) BASOPHILS ABSOLUTE COUNT (BEAKER) 0.08 K/ L 0.01-0.08 (test code = 417) IMMATURE GRANULOCYTES-RELATIVE 4 % 0-1 H PERCENT (BEAKER) (test code = 2801) POCT-GLUCOSE [id number] 21:18:00 Test Item Value Reference Range Interpretation Comments POC-GLUCOSE METER 147 mg/dL 70-110 H TESTED AT [facility] 6720 (BEAKER) (test code = OTILIA Grady [facility] 1538) [address] TISSUE [id number] 15:55:00Surgical Pathology Report Case: [id number] Authorizing Provider: Billy Mcmanus, Collected: 03/18/2018 Linsey ZAMORANO Ordering Location: [facility] Received: 03/18/2018 1131 PERIOPERATIVE SERVICES Pathologist: Chris Caraballo MD Specimen: Plaque, AORTIC PLAQUE AORTA, ATHERECTOMY:CALCIFIC ATHEROSCLEROTIC PLAQUE Signing Pathologist Direct Phone Line: [phone] signed by Chris Caraballo MD on 03/25/2018 at 3:55 [id number]; [id number] plaque Received in saline labeled "plaque", description "aortic plaque" is a 4.5 x 3.5 x 0.6 cm aggregate of felix-white to yellow-panchal, rubbery, calcified fibrous tissue.Orchid Transplanter sections are submitted in cassette A1 for decalcification. DB/ew PerformedPOTASSIUM-STAT [id number] 11:04:00 Test Item Value Reference Range Interpretation Comments POTASSIUM (BEAKER) (test code = 3.0 meq/L 3.6-5.5 L 379) HGB/HCT (H&H) - STAT [id number] 11:04:00 Test Item Value Reference Range Interpretation Comments HEMOGLOBIN (BEAKER) (test code = 11.2 g/dL 12.0-15.0 L 410) HEMATOCRIT (BEAKER) (test code = 33.0 % 36.0-45.0 L 411) GLUCOSE-STAT [id number] 11:04:00 Test Item Value Reference Range Interpretation Comments GLUCOSE RANDOM (BEAKER) (test code 116 mg/dL 70-110 H = 652) POCT-GLUCOSE [id number] 07:01:00 Test Item Value Reference Range Interpretation Comments POC-GLUCOSE METER 91 mg/dL 70-110 TESTED AT [facility] 6720 (BEAKER) (test code = [facility] [address] 1538) BASIC METABOLIC [id number] 05:12:00 Test Item Value Reference Range Interpretation Comments SODIUM (BEAKER) 140 meq/L 136-145 (test code = 381) POTASSIUM (BEAKER) 4.0 meq/L 3.5-5.1 (test code = 379) CHLORIDE (BEAKER) 100 meq/L 98-107 (test code = 382) CO2 (BEAKER) (test 34 meq/L 22-29 H code = 355) BLOOD UREA NITROGEN 14 mg/dL 7-21 (BEAKER) (test code = 354) CREATININE (BEAKER) 0.75 mg/dL 0.57-1.25 (test code = 358) GLUCOSE RANDOM 100 mg/dL 70-105 (BEAKER) (test code = 652) CALCIUM (BEAKER) 9.2 mg/dL 8.4-10.2 (test code = 697) EGFR (BEAKER) (test 74 mL/min/1.73 ESTIMA JOYCE GFR IS code = 1092) sq m NOT ACCURATE CREATININE CLEARANCE IN PREDICTING GLOMERULAR FILTRATION RATE . ESTIMATED GFR I S NOT APPLICABLE FOR DIALYSIS PATIEN TS. CBC W/PLT COUNT & AUTO [id number] 04:36:00 Test Item Value Reference Range Interpretation Comments WHITE BLOOD CELL COUNT (BEAKER) 11.1 K/ L 3.5-10.5 H (test code = 775) RED BLOOD CELL COUNT (BEAKER) 3.57 M/ L 3.93-5.22 L (test code = 761) HEMOGLOBIN (BEAKER) (test code = 10.3 GM/DL 11.2-15.7 L 410) HEMATOCRIT (BEAKER) (test code = 33.8 % 34.1-44.9 L 411) MEAN CORPUSCULAR VOLUME (BEAKER) 94.7 fL 79.4-94.8 (test code = 753) MEAN CORPUSCULAR HEMOGLOBIN 28.9 pg 25.6-32.2 (BEAKER) (test code = 751) MEAN CORPUSCULAR HEMOGLOBIN CONC 30.5 GM/DL 32.2-35.5 L (BEAKER) (test code = 752) RED CELL DISTRIBUTION WIDTH 14.6 % 11.7-14.4 H (BEAKER) (test code = 412) PLATELET COUNT (BEAKER) (test 244 K/CU MM 150-450 code = 756) MEAN PLATELET VOLUME (BEAKER) 10.7 fL 9.4-12.3 (test code = 754) NUCLEATED RED BLOOD CELLS 1 /100 WBC 0-0 H (BEAKER) (test code = 413) NEUTROPHILS RELATIVE PERCENT 72 % (BEAKER) (test code = 429) LYMPHOCYTES RELATIVE PERCENT 13 % (BEAKER) (test code = 430) MONOCYTES RELATIVE PERCENT 9 % (BEAKER) (test code = 431) EOSINOPHILS RELATIVE PERCENT 2 % (BEAKER) (test code = 432) BASOPHILS RELATIVE PERCENT 1 % (BEAKER) (test code = 437) NEUTROPHILS ABSOLUTE COUNT 7.91 K/ L 1.56-6.13 H (BEAKER) (test code = 670) LYMPHOCYTES ABSOLUTE COUNT 1.45 K/ L 1.18-3.74 (BEAKER) (test code = 414) MONOCYTES ABSOLUTE COUNT (BEAKER) 1.00 K/ L 0.24-0.36 H (test code = 415) EOSINOPHILS ABSOLUTE COUNT 0.21 K/ L 0.04-0.36 (BEAKER) (test code = 416) BASOPHILS ABSOLUTE COUNT (BEAKER) 0.07 K/ L 0.01-0.08 (test code = 417) IMMATURE GRANULOCYTES-RELATIVE 4 % 0-1 H PERCENT (BEAKER) (test code = 2801) POCT-GLUCOSE [id number] 21:06:00 Test Item Value Reference Range Interpretation Comments POC-GLUCOSE METER 152 mg/dL 70-110 H TESTED AT [place] [address] [facility] (test code = [place] 1538) [id number] POCT-GLUCOSE [id number] 17:43:00 Test Item Value Reference Range Interpretation Comments POC-GLUCOSE METER 155 mg/dL 70-110 H TESTED AT [place] [address] ([facility]) (test code = [facility] 1538) [id number] POCT-GLUCOSE [id number] 12:30:00 Test Item Value Reference Range Interpretation Comments POC-GLUCOSE METER 167 mg/dL 70-110 H TESTED AT [place] [address] ([facility]) (test code = [facility] [place] 1538) [address] POCT-GLUCOSE [id number] 07:13:00 Test Item Value Reference Range Interpretation Comments POC-GLUCOSE METER 111 mg/dL 70-110 H TESTED AT [place] [address] ([facility] (test code = [facility] [place] 1538) [id number] BASIC METABOLIC [id number] 05:33:00 Test Item Value Reference Range Interpretation Comments SODIUM (BEAKER) 139 meq/L 136-145 (test code = 381) POTASSIUM (BEAKER) 3.9 meq/L 3.5-5.1 (test code = 379) CHLORIDE (BEAKER) 102 meq/L 98-107 (test code = 382) CO2 (BEAKER) (test 29 meq/L 22-29 code = 355) BLOOD UREA NITROGEN 17 mg/dL 7-21 (BEAKER) (test code = 354) CREATININE (BEAKER) 0.72 mg/dL 0.57-1.25 (test code = 358) GLUCOSE RANDOM 114 mg/dL 70-105 H (BEAKER) (test code = 652) CALCIUM (BEAKER) 8.8 mg/dL 8.4-10.2 (test code = 697) EGFR (BEAKER) (test 77 mL/min/1.73 ESTIMA JOYCE GFR IS code = 1092) sq m NOT ACCURATE CREATININE CLEARANCE IN PREDICTING GLOMERULAR FILTRATION RATE . ESTIMATED GFR I S NOT APPLICABLE FOR DIALYSIS PATIEN TS. CBC W/PLT COUNT & AUTO [id number] 04:58:00 Test Item Value Reference Range Interpretation Comments WHITE BLOOD CELL COUNT (BEAKER) 9.9 K/ L 3.5-10.5 (test code = 775) RED BLOOD CELL COUNT (BEAKER) 3.54 M/ L 3.93-5.22 L (test code = 761) HEMOGLOBIN (BEAKER) (test code = 10.2 GM/DL 11.2-15.7 L 410) HEMATOCRIT (BEAKER) (test code = 33.7 % 34.1-44.9 L 411) MEAN CORPUSCULAR VOLUME (BEAKER) 95.2 fL 79.4-94.8 H (test code = 753) MEAN CORPUSCULAR HEMOGLOBIN 28.8 pg 25.6-32.2 (BEAKER) (test code = 751) MEAN CORPUSCULAR HEMOGLOBIN CONC 30.3 GM/DL 32.2-35.5 L (BEAKER) (test code = 752) RED CELL DISTRIBUTION WIDTH 14.4 % 11.7-14.4 (BEAKER) (test code = 412) PLATELET COUNT (BEAKER) (test 226 K/CU MM 150-450 code = 756) MEAN PLATELET VOLUME (BEAKER) 11.2 fL 9.4-12.3 (test code = 754) NUCLEATED RED BLOOD CELLS 0 /100 WBC 0-0 (BEAKER) (test code = 413) NEUTROPHILS RELATIVE PERCENT 73 % (BEAKER) (test code = 429) LYMPHOCYTES RELATIVE PERCENT 14 % (BEAKER) (test code = 430) MONOCYTES RELATIVE PERCENT 9 % (BEAKER) (test code = 431) EOSINOPHILS RELATIVE PERCENT 2 % (BEAKER) (test code = 432) BASOPHILS RELATIVE PERCENT 1 % (BEAKER) (test code = 437) NEUTROPHILS ABSOLUTE COUNT 7.15 K/ L 1.56-6.13 H (BEAKER) (test code = 670) LYMPHOCYTES ABSOLUTE COUNT 1.36 K/ L 1.18-3.74 (BEAKER) (test code = 414) MONOCYTES ABSOLUTE COUNT (BEAKER) 0.87 K/ L 0.24-0.36 H (test code = 415) EOSINOPHILS ABSOLUTE COUNT 0.18 K/ L 0.04-0.36 (BEAKER) (test code = 416) BASOPHILS ABSOLUTE COUNT (BEAKER) 0.07 K/ L 0.01-0.08 (test code = 417) IMMATURE GRANULOCYTES-RELATIVE 2 % 0-1 H PERCENT (BEAKER) (test code = 2801) POCT-GLUCOSE [id number] 20:59:00 Test Item Value Reference Range Interpretation Comments POC-GLUCOSE METER 178 mg/dL 70-110 H TESTED AT [facility] 6720 ([facility]) (test code = [place] 1538) [id number] POCT-GLUCOSE [id number] 18:18:00 Test Item Value Reference Range Interpretation Comments POC-GLUCOSE METER 137 mg/dL 70-110 H TESTED AT [facility] 67 ([facility]) (test code = OTILIA Grady [facility] 1538) [address] RAD, SPINE, LUMBAR, COMPLETE (MIN 4 VIEWS)2018-03-23 16:25:00Reason for exam:- >acute back painFINAL REPORT Lumbar spine. HISTORY: Acute [...] MDReport Verified Date/Time: 03/23/2018 16:25:16 Reading Location: [address] Ortho Consult Reading Room Electronically signed by: Ruby DANIEL 03/23/2018 04:25 PMSPUTUM CULTURE + GRAM [id number] 10:41:00 Test Item Value Reference Range Interpretation Comments CULTURE (BEAKER) 3+ Normal respiratory (test code = 1095) anu present GRAM STAIN RESULT <1+ WBCs (BEAKER) (test code = 1123) GRAM STAIN RESULT 10-15 epithelial cells (BEAKER) (test code = 97610) GRAM STAIN RESULT 1+ gram positive cocci (BEAKER) (test code = in pairs 49213) POCT-GLUCOSE [id number] 08:09:00 Test Item Value Reference Range Interpretation Comments POC-GLUCOSE METER 94 mg/dL 70-110 TESTED AT [facility] 6720 (BEAKER) (test code = [place] [address] 1538) BASIC METABOLIC [id number] 06:23:00 Test Item Value Reference Range Interpretation Comments SODIUM (BEAKER) 142 meq/L 136-145 (test code = 381) POTASSIUM (BEAKER) 3.3 meq/L 3.5-5.1 L (test code = 379) CHLORIDE (BEAKER) 102 meq/L 98-107 (test code = 382) CO2 (BEAKER) (test 27 meq/L 22-29 code = 355) BLOOD UREA NITROGEN 17 mg/dL 7-21 (BEAKER) (test code = 354) CREATININE (BEAKER) 0.69 mg/dL 0.57-1.25 (test code = 358) GLUCOSE RANDOM 81 mg/dL 70-105 (BEAKER) (test code = 652) CALCIUM (BEAKER) 9.4 mg/dL 8.4-10.2 (test code = 697) EGFR (BEAKER) (test 81 mL/min/1.73 ESTIMA JOYCE GFR IS code = 1092) sq m NOT ACCURATE CREATININE CLEARANCE IN PREDICTING GLOMERULAR FILTRATION RATE . ESTIMATED GFR I S NOT APPLICABLE FOR DIALYSIS PATIEN TS. CBC W/PLT COUNT & AUTO [id number] 06:00:00 Test Item Value Reference Range Interpretation Comments WHITE BLOOD CELL COUNT (BEAKER) 8.2 K/ L 3.5-10.5 (test code = 775) RED BLOOD CELL COUNT (BEAKER) 4.03 M/ L 3.93-5.22 (test code = 761) HEMOGLOBIN (BEAKER) (test code = 11.5 GM/DL 11.2-15.7 410) HEMATOCRIT (BEAKER) (test code = 38.6 % 34.1-44.9 411) MEAN CORPUSCULAR VOLUME (BEAKER) 95.8 fL 79.4-94.8 H (test code = 753) MEAN CORPUSCULAR HEMOGLOBIN 28.5 pg 25.6-32.2 (BEAKER) (test code = 751) MEAN CORPUSCULAR HEMOGLOBIN CONC 29.8 GM/DL 32.2-35.5 L (BEAKER) (test code = 752) RED CELL DISTRIBUTION WIDTH 14.5 % 11.7-14.4 H (BEAKER) (test code = 412) PLATELET COUNT (BEAKER) (test 214 K/CU MM 150-450 code = 756) MEAN PLATELET VOLUME (BEAKER) 11.5 fL 9.4-12.3 (test code = 754) NUCLEATED RED BLOOD CELLS 0 /100 WBC 0-0 (BEAKER) (test code = 413) NEUTROPHILS RELATIVE PERCENT 71 % (BEAKER) (test code = 429) LYMPHOCYTES RELATIVE PERCENT 17 % (BEAKER) (test code = 430) MONOCYTES RELATIVE PERCENT 8 % (BEAKER) (test code = 431) EOSINOPHILS RELATIVE PERCENT 3 % (BEAKER) (test code = 432) BASOPHILS RELATIVE PERCENT 1 % (BEAKER) (test code = 437) NEUTROPHILS ABSOLUTE COUNT 5.84 K/ L 1.56-6.13 (BEAKER) (test code = 670) LYMPHOCYTES ABSOLUTE COUNT 1.36 K/ L 1.18-3.74 (BEAKER) (test code = 414) MONOCYTES ABSOLUTE COUNT (BEAKER) 0.63 K/ L 0.24-0.36 H (test code = 415) EOSINOPHILS ABSOLUTE COUNT 0.24 K/ L 0.04-0.36 (BEAKER) (test code = 416) BASOPHILS ABSOLUTE COUNT (BEAKER) 0.07 K/ L 0.01-0.08 (test code = 417) IMMATURE GRANULOCYTES-RELATIVE 1 % 0-1 PERCENT (BEAKER) (test code = 2801) POCT-GLUCOSE [id number] 21:32:00 Test Item Value Reference Range Interpretation Comments POC-GLUCOSE METER 238 mg/dL 70-110 H TESTED AT [place] [address] ([facility]) (test code = OTILIA Gr[place] [facility] 1538) [id number] POCT-GLUCOSE [id number] 12:11:00 Test Item Value Reference Range Interpretation Comments POC-GLUCOSE METER 102 mg/dL 70-110 TESTED AT [place] [address] ([facility]) (test code = OTILIA Gr[place] [facility] 1538) [id number] POCT-GLUCOSE [id number] 07:49:00 Test Item Value Reference Range Interpretation Comments POC-GLUCOSE METER 93 mg/dL 70-110 TESTED AT [place] [address] ([facility]) ([facility] [address] 1538) BASIC METABOLIC [id number] 06:14:00 Test Item Value Reference Range Interpretation Comments SODIUM (BEAKER) 142 meq/L 136-145 (test code = 381) POTASSIUM (BEAKER) 4.6 meq/L 3.5-5.1 (test code = 379) CHLORIDE (BEAKER) 103 meq/L 98-107 (test code = 382) CO2 (BEAKER) (test 32 meq/L 22-29 H code = 355) BLOOD UREA NITROGEN 18 mg/dL 7-21 (BEAKER) (test code = 354) CREATININE (BEAKER) 0.73 mg/dL 0.57-1.25 (test code = 358) GLUCOSE RANDOM 78 mg/dL 70-105 (BEAKER) (test code = 652) CALCIUM (BEAKER) 9.3 mg/dL 8.4-10.2 (test code = 697) EGFR (BEAKER) (test 76 mL/min/1.73 ESTIMA JOYCE GFR IS code = 1092) sq m NOT ACCURATE CREATININE CLEARANCE IN PREDICTING GLOMERULAR FILTRATION RATE . ESTIMATED GFR I S NOT APPLICABLE FOR DIALYSIS PATIEN TS. CBC W/PLT COUNT & AUTO [id number] 05:44:00 Test Item Value Reference Range Interpretation Comments WHITE BLOOD CELL COUNT (BEAKER) 9.0 K/ L 3.5-10.5 (test code = 775) RED BLOOD CELL COUNT (BEAKER) 3.81 M/ L 3.93-5.22 L (test code = 761) HEMOGLOBIN (BEAKER) (test code = 10.8 GM/DL 11.2-15.7 L 410) HEMATOCRIT (BEAKER) (test code = 36.8 % 34.1-44.9 411) MEAN CORPUSCULAR VOLUME (BEAKER) 96.6 fL 79.4-94.8 H (test code = 753) MEAN CORPUSCULAR HEMOGLOBIN 28.3 pg 25.6-32.2 (BEAKER) (test code = 751) MEAN CORPUSCULAR HEMOGLOBIN CONC 29.3 GM/DL 32.2-35.5 L (BEAKER) (test code = 752) RED CELL DISTRIBUTION WIDTH 14.7 % 11.7-14.4 H (BEAKER) (test code = 412) PLATELET COUNT (BEAKER) (test 178 K/CU MM 150-450 code = 756) MEAN PLATELET VOLUME (BEAKER) 11.6 fL 9.4-12.3 (test code = 754) NUCLEATED RED BLOOD CELLS 0 /100 WBC 0-0 (BEAKER) (test code = 413) NEUTROPHILS RELATIVE PERCENT 75 % (BEAKER) (test code = 429) LYMPHOCYTES RELATIVE PERCENT 14 % (BEAKER) (test code = 430) MONOCYTES RELATIVE PERCENT 7 % (BEAKER) (test code = 431) EOSINOPHILS RELATIVE PERCENT 3 % (BEAKER) (test code = 432) BASOPHILS RELATIVE PERCENT 1 % (BEAKER) (test code = 437) NEUTROPHILS ABSOLUTE COUNT 6.69 K/ L 1.56-6.13 H (BEAKER) (test code = 670) LYMPHOCYTES ABSOLUTE COUNT 1.29 K/ L 1.18-3.74 (BEAKER) (test code = 414) MONOCYTES ABSOLUTE COUNT (BEAKER) 0.65 K/ L 0.24-0.36 H (test code = 415) EOSINOPHILS ABSOLUTE COUNT 0.22 K/ L 0.04-0.36 (BEAKER) (test code = 416) BASOPHILS ABSOLUTE COUNT (BEAKER) 0.05 K/ L 0.01-0.08 (test code = 417) IMMATURE GRANULOCYTES-RELATIVE 1 % 0-1 PERCENT (BEAKER) (test code = 2801) POCT-GLUCOSE [id number] 21:06:00 Test Item Value Reference Range Interpretation Comments POC-GLUCOSE METER 116 mg/dL 70-110 H TESTED AT [place] [address] ([facility]) (test code = OTIILA [place] [facility] 1538) [address] POCT-GLUCOSE [id number] 16:33:00 Test Item Value Reference Range Interpretation Comments POC-GLUCOSE METER 138 mg/dL 70-110 H TESTED AT [place] [address] ([facility]) (test code = OTILIA [place] [facility] 1538) [id number] POCT-GLUCOSE [id number] 12:15:00 Test Item Value Reference Range Interpretation Comments POC-GLUCOSE METER 150 mg/dL 70-110 H TESTED AT [place] [address] ([facility]) (test code = OT[place] [facility] 1538) [address] POCT-GLUCOSE [id number] 09:03:00 Test Item Value Reference Range Interpretation Comments POC-GLUCOSE METER 101 mg/dL 70-110 TESTED AT [place] [address] ([facility]) (test code = OT[place] [facility] 1538) [address] RAD, CHEST, 1 VIEW, NON [id number] 08:03:00Reason for exam:->post cardiovascular procedureShould this be [...] be excluded. Signed: Freya Turcios MDReport Verified Date/Time: 03/21/2018 08:03:21 Reading Location: [facility] Diagnostic Imaging Reading Room - [place] [address] [id number] 04:37:00 Test Item Value Reference Range Interpretation Comments MAGNESIUM (BEAKER) 1.9 mg/dL 1.6-2.6 Specimen slightly (test code = 627) hemolyzed BASIC METABOLIC [id number] 04:37:00 Test Item Value Reference Range Interpretation Comments SODIUM (BEAKER) 141 meq/L 136-145 (test code = 381) POTASSIUM (BEAKER) 4.0 meq/L 3.5-5.1 Specimen slightly (test code = 379) hemolyzed CHLORIDE (BEAKER) 104 meq/L 98-107 (test code = 382) CO2 (BEAKER) (test 27 meq/L 22-29 code = 355) BLOOD UREA NITROGEN 28 mg/dL 7-21 H (BEAKER) (test code = 354) CREATININE (BEAKER) 0.81 mg/dL 0.57-1.25 Specimen slightly (test code = 358) hemolyzed GLUCOSE RANDOM 124 mg/dL 70-105 H (BEAKER) (test code = 652) CALCIUM (BEAKER) 9.8 mg/dL 8.4-10.2 (test code = 697) EGFR (BEAKER) (test 68 mL/min/1.73 ESTIMA JOYCE GFR IS code = 1092) sq m NOT ACCURATE CREATININE CLEARANCE IN PREDICTING GLOMERULAR FILTRATION RATE . ESTIMATED GFR I S NOT APPLICABLE FOR DIALYSIS PATIEN TS. CBC W/PLT COUNT & AUTO [id number] 04:27:00 Test Item Value Reference Range Interpretation Comments WHITE BLOOD CELL COUNT (BEAKER) 13.9 K/ L 3.5-10.5 H (test code = 775) RED BLOOD CELL COUNT (BEAKER) 3.73 M/ L 3.93-5.22 L (test code = 761) HEMOGLOBIN (BEAKER) (test code = 11.1 GM/DL 11.2-15.7 L 410) HEMATOCRIT (BEAKER) (test code = 35.4 % 34.1-44.9 411) MEAN CORPUSCULAR VOLUME (BEAKER) 94.9 fL 79.4-94.8 H (test code = 753) MEAN CORPUSCULAR HEMOGLOBIN 29.8 pg 25.6-32.2 (BEAKER) (test code = 751) MEAN CORPUSCULAR HEMOGLOBIN CONC 31.4 GM/DL 32.2-35.5 L (BEAKER) (test code = 752) RED CELL DISTRIBUTION WIDTH 14.8 % 11.7-14.4 H (BEAKER) (test code = 412) PLATELET COUNT (BEAKER) (test 173 K/CU MM 150-450 code = 756) MEAN PLATELET VOLUME (BEAKER) 11.8 fL 9.4-12.3 (test code = 754) NUCLEATED RED BLOOD CELLS 0 /100 WBC 0-0 (BEAKER) (test code = 413) NEUTROPHILS RELATIVE PERCENT 90 % (BEAKER) (test code = 429) LYMPHOCYTES RELATIVE PERCENT 5 % (BEAKER) (test code = 430) MONOCYTES RELATIVE PERCENT 4 % (BEAKER) (test code = 431) EOSINOPHILS RELATIVE PERCENT 1 % (BEAKER) (test code = 432) BASOPHILS RELATIVE PERCENT 0 % (BEAKER) (test code = 437) NEUTROPHILS ABSOLUTE COUNT 12.44 K/ L 1.56-6.13 H (BEAKER) (test code = 670) LYMPHOCYTES ABSOLUTE COUNT 0.67 K/ L 1.18-3.74 L (BEAKER) (test code = 414) MONOCYTES ABSOLUTE COUNT (BEAKER) 0.58 K/ L 0.24-0.36 H (test code = 415) EOSINOPHILS ABSOLUTE COUNT 0.07 K/ L 0.04-0.36 ([facility]) (test code = 416) BASOPHILS ABSOLUTE COUNT ([facility]) 0.04 K/ L 0.01-0.08 (test code = 417) IMMATURE GRANULOCYTES-RELATIVE 1 % 0-1 PERCENT ([facility]) (test code = 2801) POCT-GLUCOSE [id number] 20:59:00 Test Item Value Reference Range Interpretation Comments POC-GLUCOSE METER 111 mg/dL 70-110 H TESTED AT [place] [address] ([facility]) (test code = [facility] 1538) [id number] POCT-GLUCOSE [id number] 18:33:00 Test Item Value Reference Range Interpretation Comments POC-GLUCOSE METER 101 mg/dL 70-110 TESTED AT [place] [address] ([facility]) (test code = [facility] 1538) [address] POCT-GLUCOSE [id number] 16:33:00 Test Item Value Reference Range Interpretation Comments POC-GLUCOSE METER 128 mg/dL 70-110 H TESTED AT [place] [address] ([facility]) (test code = [facility] 1538) [address] POCT-GLUCOSE [id number] 11:35:00 Test Item Value Reference Range Interpretation Comments POC-GLUCOSE METER 129 mg/dL 70-110 H TESTED AT [place] [address] ([facility]) (test code = [facility] 1538) [address] HEMOGLOBIN [id number] 08:58:00 Test Item Value Reference Range Interpretation Comments HEMOGLOBIN A1C ([facility]) (test code = 6.0 % 4.3-6.1 368) RAD, CHEST, 1 VIEW, NON [id number] 08:06:00Reason for exam:->post cardiovascular procedureShould this be [...] MDReport Verified Date/Time: 03/20/2018 08:06:53 Reading Location: [facility] Radiology Reading Room POCT-GLUCOSE [id number] 06:21:00 Test Item Value Reference Range Interpretation Comments POC-GLUCOSE METER 133 mg/dL 70-110 H TESTED AT [facility] 6720 (BEAKER) (test code = [place] 1538) [address] [id number] 06:00:00 Test Item Value Reference Range Interpretation Comments MAGNESIUM (BEAKER) (test code = 2.0 mg/dL 1.6-2.6 627) BASIC METABOLIC [id number] 06:00:00 Test Item Value Reference Range Interpretation Comments SODIUM (BEAKER) 144 meq/L 136-145 (test code = 381) POTASSIUM (BEAKER) 3.9 meq/L 3.5-5.1 (test code = 379) CHLORIDE (BEAKER) 107 meq/L 98-107 (test code = 382) CO2 (BEAKER) (test 27 meq/L 22-29 code = 355) BLOOD UREA NITROGEN 36 mg/dL 7-21 H (BEAKER) (test code = 354) CREATININE (BEAKER) 0.99 mg/dL 0.57-1.25 (test code = 358) GLUCOSE RANDOM 123 mg/dL 70-105 H (BEAKER) (test code = 652) CALCIUM (BEAKER) 9.3 mg/dL 8.4-10.2 (test code = 697) EGFR (BEAKER) (test 54 mL/min/1.73 ESTIMA JOYCE GFR IS code = 1092) sq m NOT ACCURATE CREATININE CLEARANCE IN PREDICTING GLOMERULAR FILTRATION RATE . ESTIMATED GFR I S NOT APPLICABLE FOR DIALYSIS PATIEN TS. CBC W/PLT COUNT & AUTO [id number] 05:39:00 Test Item Value Reference Range Interpretation Comments WHITE BLOOD CELL COUNT (BEAKER) 16.0 K/ L 3.5-10.5 H (test code = 775) RED BLOOD CELL COUNT (BEAKER) 4.19 M/ L 3.93-5.22 (test code = 761) HEMOGLOBIN (BEAKER) (test code = 12.0 GM/DL 11.2-15.7 410) HEMATOCRIT (BEAKER) (test code = 40.1 % 34.1-44.9 411) MEAN CORPUSCULAR VOLUME (BEAKER) 95.7 fL 79.4-94.8 H (test code = 753) MEAN CORPUSCULAR HEMOGLOBIN 28.6 pg 25.6-32.2 (BEAKER) (test code = 751) MEAN CORPUSCULAR HEMOGLOBIN CONC 29.9 GM/DL 32.2-35.5 L (BEAKER) (test code = 752) RED CELL DISTRIBUTION WIDTH 14.8 % 11.7-14.4 H (BEAKER) (test code = 412) PLATELET COUNT (BEAKER) (test 166 K/CU MM 150-450 code = 756) MEAN PLATELET VOLUME (BEAKER) 11.6 fL 9.4-12.3 (test code = 754) NUCLEATED RED BLOOD CELLS 0 /100 WBC 0-0 (BEAKER) (test code = 413) NEUTROPHILS RELATIVE PERCENT 90 % (BEAKER) (test code = 429) LYMPHOCYTES RELATIVE PERCENT 4 % (BEAKER) (test code = 430) MONOCYTES RELATIVE PERCENT 4 % (BEAKER) (test code = 431) EOSINOPHILS RELATIVE PERCENT 0 % (BEAKER) (test code = 432) BASOPHILS RELATIVE PERCENT 0 % (BEAKER) (test code = 437) NEUTROPHILS ABSOLUTE COUNT 14.45 K/ L 1.56-6.13 H (BEAKER) (test code = 670) LYMPHOCYTES ABSOLUTE COUNT 0.66 K/ L 1.18-3.74 L (BEAKER) (test code = 414) MONOCYTES ABSOLUTE COUNT (BEAKER) 0.70 K/ L 0.24-0.36 H (test code = 415) EOSINOPHILS ABSOLUTE COUNT 0.01 K/ L 0.04-0.36 L (BEAKER) (test code = 416) BASOPHILS ABSOLUTE COUNT (BEAKER) 0.06 K/ L 0.01-0.08 (test code = 417) IMMATURE GRANULOCYTES-RELATIVE 1 % 0-1 PERCENT (BEAKER) (test code = 2801) POCT-GLUCOSE [id number] 00:24:00 Test Item Value Reference Range Interpretation Comments POC-GLUCOSE METER 117 mg/dL 70-110 H TESTED AT [facility] 6720 (BEAKER) (test code = [place] 1538) [address] POCT-GLUCOSE [id number] 17:07:00 Test Item Value Reference Range Interpretation Comments POC-GLUCOSE METER 132 mg/dL 70-110 H TESTED AT [facility] 67 ([facility]) (test code = OTILIA [place] [facility] 1538) [address] RAD, ABDOMEN/KUB, 1 VIEW [id number] 15:02:00Reason for exam:->nausea and eructationsFINAL REPORT TECHNIQUE: [...] the spine. Bones are osteopenic. Signed: Damian Glasseport Verified Date/Time: 03/19/2018 15:02:35 Reading Location: [facility] Radiology Reading Room POCT- GLUCOSE [id number] 10:23:00 Test Item Value Reference Range Interpretation Comments POC-GLUCOSE METER 111 mg/dL 70-110 H TESTED AT [place] [address] ([facility]) (test code = OTILIA [place] [facility] 1538) [address] RAD, CHEST, 1 VIEW, NON [id number] 08:26:00Reason for exam:->post cardiovascular procedureShould this be performed at the bedside?->YesFINAL REPORT CLINICAL HISTORY: post cardiovascular procedure TECHNIQUE: 1 view of the chest. COMPARISON: 03/18/2018 IMPRESSION: The ETT has been removed. The right central line and nasogastric tube remain. Bibasilar atelectasis is seen with trace bilateral pleural effusions. 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 Signed: Alia Garrettort Verified Date/Time: 03/19/2018 08:26:26 Reading Location: [facility] Radiology Reading Room POCT-GLUCOSE [id number] 06:09:00 Test Item Value Reference Range Interpretation Comments POC-GLUCOSE METER 120 mg/dL 70-110 H TESTED AT [facility] 6720 (BEAKER) (test code = [place] 1538) [address] POCT-GLUCOSE [id number] 06:09:00 Test Item Value Reference Range Interpretation Comments POC-GLUCOSE METER 120 mg/dL 70-110 H TESTED AT [facility] 6720 (BEAKER) (test code = [place] 1538) [address] [id number] 04:28:00 Test Item Value Reference Range Interpretation Comments MAGNESIUM (BEAKER) 2.2 mg/dL 1.6-2.6 Specimen slightly (test code = 627) hemolyzed BASIC METABOLIC [id number] 04:28:00 Test Item Value Reference Range Interpretation Comments SODIUM (BEAKER) 141 meq/L 136-145 (test code = 381) POTASSIUM (BEAKER) 3.8 meq/L 3.5-5.1 Specimen slightly (test code = 379) hemolyzed CHLORIDE (BEAKER) 109 meq/L 98-107 H (test code = 382) CO2 (BEAKER) (test 24 meq/L 22-29 code = 355) BLOOD UREA NITROGEN 30 mg/dL 7-21 H (BEAKER) (test code = 354) CREATININE (BEAKER) 0.86 mg/dL 0.57-1.25 Specimen slightly (test code = 358) hemolyzed GLUCOSE RANDOM 119 mg/dL 70-105 H (BEAKER) (test code = 652) CALCIUM (BEAKER) 8.9 mg/dL 8.4-10.2 (test code = 697) EGFR (BEAKER) (test 63 mL/min/1.73 ESTIMA JOYCE GFR IS code = 1092) sq m NOT ACCURATE CREATININE CLEARANCE IN PREDICTING GLOMERULAR FILTRATION RATE . ESTIMATED GFR I S NOT APPLICABLE FOR DIALYSIS PATIEN TS. CBC W/PLT COUNT & AUTO [id number] 04:19:00 Test Item Value Reference Range Interpretation Comments WHITE BLOOD CELL COUNT (BEAKER) 12.8 K/ L 3.5-10.5 H (test code = 775) RED BLOOD CELL COUNT (BEAKER) 4.54 M/ L 3.93-5.22 (test code = 761) HEMOGLOBIN (BEAKER) (test code = 12.9 GM/DL 11.2-15.7 410) HEMATOCRIT (BEAKER) (test code = 43.3 % 34.1-44.9 411) MEAN CORPUSCULAR VOLUME (BEAKER) 95.4 fL 79.4-94.8 H (test code = 753) MEAN CORPUSCULAR HEMOGLOBIN 28.4 pg 25.6-32.2 (BEAKER) (test code = 751) MEAN CORPUSCULAR HEMOGLOBIN CONC 29.8 GM/DL 32.2-35.5 L (BEAKER) (test code = 752) RED CELL DISTRIBUTION WIDTH 14.8 % 11.7-14.4 H (BEAKER) (test code = 412) PLATELET COUNT (BEAKER) (test 207 K/CU MM 150-450 code = 756) MEAN PLATELET VOLUME (BEAKER) 11.6 fL 9.4-12.3 (test code = 754) NUCLEATED RED BLOOD CELLS 0 /100 WBC 0-0 (BEAKER) (test code = 413) NEUTROPHILS RELATIVE PERCENT 87 % (BEAKER) (test code = 429) LYMPHOCYTES RELATIVE PERCENT 6 % (BEAKER) (test code = 430) MONOCYTES RELATIVE PERCENT 6 % (BEAKER) (test code = 431) EOSINOPHILS RELATIVE PERCENT 0 % (BEAKER) (test code = 432) BASOPHILS RELATIVE PERCENT 1 % (BEAKER) (test code = 437) NEUTROPHILS ABSOLUTE COUNT 11.16 K/ L 1.56-6.13 H (BEAKER) (test code = 670) LYMPHOCYTES ABSOLUTE COUNT 0.71 K/ L 1.18-3.74 L (BEAKER) (test code = 414) MONOCYTES ABSOLUTE COUNT (BEAKER) 0.74 K/ L 0.24-0.36 H (test code = 415) EOSINOPHILS ABSOLUTE COUNT 0.02 K/ L 0.04-0.36 L (BEAKER) (test code = 416) BASOPHILS ABSOLUTE COUNT (BEAKER) 0.07 K/ L 0.01-0.08 (test code = 417) IMMATURE GRANULOCYTES-RELATIVE 1 % 0-1 PERCENT (BEAKER) (test code = 2801) BLOOD GAS, [id number] 04:01:00 Test Item Value Reference Range Interpretation Comments PH ARTERIAL (BEAKER) (test code = 7.37 7.35-7.45 383) PCO2 ARTERIAL (BEAKER) (test code 47 mmHg 35-45 H = 384) PO2 ARTERIAL (BEAKER) (test code = 68 mmHg 80-90 L 385) O2 SATURATION ARTERIAL (BEAKER) 92.4 % 96.0-97.0 L (test code = 386) HCO3 ARTERIAL (BEAKER) (test code 26 mmol/L 21-29 = 388) BASE EXCESS ARTERIAL (BEAKER) 0.6 mmol/L -2.0-3.0 (test code = 387) PATIENT TEMPERATURE (BEAKER) (test 37.4 C code = 1818) FIO2 (BEAKER) (test code = 1819) 40.0 % BLOOD GAS, [id number] 22:23:00 Test Item Value Reference Range Interpretation Comments PH ARTERIAL (BEAKER) (test code = 7.40 7.35-7.45 383) PCO2 ARTERIAL (BEAKER) (test code 42 mmHg 35-45 = 384) PO2 ARTERIAL (BEAKER) (test code = 150 mmHg 80-90 H 385) O2 SATURATION ARTERIAL (BEAKER) 98.9 % 96.0-97.0 H (test code = 386) HCO3 ARTERIAL (BEAKER) (test code 25 mmol/L 21-29 = 388) BASE EXCESS ARTERIAL (BEAKER) 0.2 mmol/L -2.0-3.0 (test code = 387) PATIENT TEMPERATURE (BEAKER) (test 36.6 C code = 1818) FIO2 (BEAKER) (test code = 1819) 40.0 % GLUCOSE-STAT [id number] 22:23:00 Test Item Value Reference Range Interpretation Comments GLUCOSE RANDOM (BEAKER) (test code 140 mg/dL 70-110 H = 652) [id number] 20:01:00 Test Item Value Reference Range Interpretation Comments POTASSIUM (BEAKER) (test code = 3.7 meq/L 3.5-5.1 379) 8 hours after PO replacement [id number] 20:01:00 Test Item Value Reference Range Interpretation Comments MAGNESIUM (BEAKER) (test code = 2.2 mg/dL 1.6-2.6 627) 8 hours after PO replacement completedBLOOD GAS, [id number] 19:27:00 Test Item Value Reference Range Interpretation Comments PH ARTERIAL (BEAKER) (test code = 7.40 7.35-7.45 383) PCO2 ARTERIAL (BEAKER) (test code 40 mmHg 35-45 = 384) PO2 ARTERIAL (BEAKER) (test code 93 mmHg 80-90 H = 385) O2 SATURATION ARTERIAL (BEAKER) 97.3 % 96.0-97.0 H (test code = 386) HCO3 ARTERIAL (BEAKER) (test code 25 mmol/L 21-29 = 388) BASE EXCESS ARTERIAL (BEAKER) -0.1 mmol/L -2.0-3.0 (test code = 387) PATIENT TEMPERATURE (BEAKER) 36.6 C (test code = 1818) FIO2 (BEAKER) (test code = 1819) 40.0 % POCT-GLUCOSE [id number] 19:09:00 Test Item Value Reference Range Interpretation Comments POC-GLUCOSE METER 123 mg/dL 70-110 H TESTED AT [place] [id number] ([facility]) (test code = [place] 1538) [id number] POCT-GLUCOSE [id number] 18:02:00 Test Item Value Reference Range Interpretation Comments POC-GLUCOSE METER 108 mg/dL 70-110 TESTED AT [place] [address] ([facility]) (test code = [place] 1538) [id number] POCT-GLUCOSE [id number] 17:06:00 Test Item Value Reference Range Interpretation Comments POC-GLUCOSE METER 103 mg/dL 70-110 TESTED AT [place] [address] ([facility]) (test code = [place] [address]) [id number] POCT-GLUCOSE [id number] 16:00:00 Test Item Value Reference Range Interpretation Comments POC-GLUCOSE METER 121 mg/dL 70-110 H TESTED AT [place] [address] ([facility]) (test code = [place] 1538) [id number] POCT-GLUCOSE [id number] 15:45:00 Test Item Value Reference Range Interpretation Comments POC-GLUCOSE METER 146 mg/dL 70-110 H TESTED AT [place] [address] ([facility]) (test code = [place] 1538) [address] BLOOD GAS, [id number] 15:25:00 Test Item Value Reference Range Interpretation Comments PH ARTERIAL (BEAKER) (test code = 7.33 7.35-7.45 L 383) PCO2 ARTERIAL (BEAKER) (test code 49 mmHg 35-45 H = 384) PO2 ARTERIAL (BEAKER) (test code 84 mmHg 80-90 = 385) O2 SATURATION ARTERIAL (BEAKER) 95.8 % 96.0-97.0 L (test code = 386) HCO3 ARTERIAL (BEAKER) (test code 25 mmol/L 21-29 = 388) BASE EXCESS ARTERIAL (BEAKER) -1.3 mmol/L -2.0-3.0 (test code = 387) PATIENT TEMPERATURE (BEAKER) 36.6 C (test code = 1818) FIO2 (BEAKER) (test code = 1819) 40.0 % PLATELET AGGREGATION: FUNCTION [id number] 13:34:00 Test Item Value Reference Range Interpretation Comments WEAK ADP 63 % 60-91 RESULT(BEAKER) (test code = 2135) PLATELET FUNCTION 60-100% indicates SCREEN INTERP (BEAKER) normal platelet (test code = 2173) function [id number] Teresa De León MD (BEAKER) (test code = (electronic signature) 2622) PLATELET COUNT AGG 209 K/CU MM 150-450 (BEAKER) (test code = 2656) for patients on clopidogrel in past two weeksRAD, CHEST, 1 VIEW, NON DEPT 2018-03-18 13:15:00Reason for exam:->post cardiovascular procedureShould this be [...] technique with a pacemaker. Signed: Alia Garrett Verified Date/Time: 03/18/2018 13:15:44 Reading Location: [facility] B1 [id number] Consult Reading Room [id number] 13:04:00 Test Item Value Reference Range Interpretation Comments MAGNESIUM (BEAKER) (test code = 1.8 mg/dL 1.6-2.6 627) BASIC METABOLIC [id number] 13:04:00 Test Item Value Reference Range Interpretation Comments SODIUM (BEAKER) 140 meq/L 136-145 (test code = 381) POTASSIUM (BEAKER) 3.0 meq/L 3.5-5.1 L (test code = 379) CHLORIDE (BEAKER) 109 meq/L 98-107 H (test code = 382) CO2 (BEAKER) (test 23 meq/L 22-29 code = 355) BLOOD UREA NITROGEN 29 mg/dL 7-21 H (BEAKER) (test code = 354) CREATININE (BEAKER) 0.89 mg/dL 0.57-1.25 (test code = 358) GLUCOSE RANDOM 142 mg/dL 70-105 H (BEAKER) (test code = 652) CALCIUM (BEAKER) 9.3 mg/dL 8.4-10.2 (test code = 697) EGFR (BEAKER) (test 61 mL/min/1.73 ESTIMA JOYCE GFR IS code = 1092) sq m NOT ACCURATE CREATININE CLEARANCE IN PREDICTING GLOMERULAR FILTRATION RATE . ESTIMATED GFR I S NOT APPLICABLE FOR DIALYSIS PATIEN TS. [id number] 12:43:00 Test Item Value Reference Range Interpretation Comments PHOSPHORUS (BEAKER) (test code = 3.9 mg/dL 2.3-4.7 604) LACTIC ACID, VENOUS, WHOLE [id number] 12:15:00 Test Item Value Reference Range Interpretation Comments LACTATE BLOOD VENOUS 1.0 mmol/L 0.5-2.2 Specime n slightly (2) (BEAKER) (test hemolyzed code = 2872) Effective 02/09/2016: Units/Reference Range ChangeNew: 0.5-2.2 mmol/L Previous: 5-20 mg/dLCBC W/PLT COUNT & AUTO [id number] 12:06:00 Test Item Value Reference Range Interpretation Comments WHITE BLOOD CELL COUNT (BEAKER) 14.3 K/ L 3.5-10.5 H (test code = 775) RED BLOOD CELL COUNT (BEAKER) 4.44 M/ L 3.93-5.22 (test code = 761) HEMOGLOBIN (BEAKER) (test code = 12.9 GM/DL 11.2-15.7 410) HEMATOCRIT (BEAKER) (test code = 41.8 % 34.1-44.9 411) MEAN CORPUSCULAR VOLUME (BEAKER) 94.1 fL 79.4-94.8 (test code = 753) MEAN CORPUSCULAR HEMOGLOBIN 29.1 pg 25.6-32.2 (BEAKER) (test code = 751) MEAN CORPUSCULAR HEMOGLOBIN CONC 30.9 GM/DL 32.2-35.5 L (BEAKER) (test code = 752) RED CELL DISTRIBUTION WIDTH 14.5 % 11.7-14.4 H (BEAKER) (test code = 412) PLATELET COUNT (BEAKER) (test 176 K/CU MM 150-450 code = 756) MEAN PLATELET VOLUME (BEAKER) 11.4 fL 9.4-12.3 (test code = 754) NUCLEATED RED BLOOD CELLS 0 /100 WBC 0-0 (BEAKER) (test code = 413) NEUTROPHILS RELATIVE PERCENT 91 % (BEAKER) (test code = 429) LYMPHOCYTES RELATIVE PERCENT 6 % (BEAKER) (test code = 430) MONOCYTES RELATIVE PERCENT 1 % (BEAKER) (test code = 431) EOSINOPHILS RELATIVE PERCENT 0 % (BEAKER) (test code = 432) BASOPHILS RELATIVE PERCENT 1 % (BEAKER) (test code = 437) NEUTROPHILS ABSOLUTE COUNT 13.02 K/ L 1.56-6.13 H (BEAKER) (test code = 670) LYMPHOCYTES ABSOLUTE COUNT 0.84 K/ L 1.18-3.74 L (BEAKER) (test code = 414) MONOCYTES ABSOLUTE COUNT (BEAKER) 0.09 K/ L 0.24-0.36 L (test code = 415) EOSINOPHILS ABSOLUTE COUNT 0.05 K/ L 0.04-0.36 (BEAKER) (test code = 416) BASOPHILS ABSOLUTE COUNT (BEAKER) 0.08 K/ L 0.01-0.08 (test code = 417) IMMATURE GRANULOCYTES-RELATIVE 2 % 0-1 H PERCENT (BEAKER) (test code = 2801) HGB/HCT (H&H) - STAT [id number] 12:01:00 Test Item Value Reference Range Interpretation Comments HEMOGLOBIN (BEAKER) (test code = 13.8 g/dL 12.0-15.0 410) HEMATOCRIT (BEAKER) (test code = 41.0 % 36.0-45.0 411) CALCIUM, [id number] 12:01:00 Test Item Value Reference Range Interpretation Comments CALCIUM IONIZED (BEAKER) (test 1.25 mmol/L 1.12-1.27 code = 698) PH, BLOOD (BEAKER) (test code = 7.37 1810) BLOOD GAS, [id number] 12:01:00 Test Item Value Reference Range Interpretation Comments PH ARTERIAL (BEAKER) (test code = 7.38 7.35-7.45 383) PCO2 ARTERIAL (BEAKER) (test code 46 mmHg 35-45 H = 384) PO2 ARTERIAL (BEAKER) (test code = 214 mmHg 80-90 H 385) O2 SATURATION ARTERIAL (BEAKER) 99.4 % 96.0-97.0 H (test code = 386) HCO3 ARTERIAL (BEAKER) (test code 26 mmol/L 21-29 = 388) BASE EXCESS ARTERIAL (BEAKER) 0.5 mmol/L -2.0-3.0 (test code = 387) PATIENT TEMPERATURE (BEAKER) (test 36.7 C code = 1818) FIO2 (BEAKER) (test code = 1819) 60.0 % POTASSIUM-STAT [id number] 12:01:00 Test Item Value Reference Range Interpretation Comments POTASSIUM (BEAKER) (test code = 3.0 meq/L 3.6-5.5 L 379) GLUCOSE-STAT [id number] 12:01:00 Test Item Value Reference Range Interpretation Comments GLUCOSE RANDOM (BEAKER) (test code 139 mg/dL 70-110 H = 652) BLOOD GAS, [id number] 10:42:00 Test Item Value Reference Range Interpretation Comments PH ARTERIAL (BEAKER) (test code = 7.39 7.35-7.45 383) PCO2 ARTERIAL (BEAKER) (test code 45 mmHg 35-45 = 384) PO2 ARTERIAL (BEAKER) (test code = 260 mmHg 80-90 H 385) O2 SATURATION ARTERIAL (BEAKER) 99.6 % 96.0-97.0 H (test code = 386) HCO3 ARTERIAL (BEAKER) (test code 26 mmol/L 21-29 = 388) BASE EXCESS ARTERIAL (BEAKER) 0.7 mmol/L -2.0-3.0 (test code = 387) PATIENT TEMPERATURE (BEAKER) (test 36.7 C code = 1818) FIO2 (BEAKER) (test code = 1819) 50.0 % POTASSIUM-STAT [id number] 10:42:00 Test Item Value Reference Range Interpretation Comments POTASSIUM (BEAKER) (test code = 3.1 meq/L 3.6-5.5 L 379) GLUCOSE-STAT [id number] 10:42:00 Test Item Value Reference Range Interpretation Comments GLUCOSE RANDOM (BEAKER) (test code 139 mg/dL 70-110 H = 652) CALCIUM, [id number] 10:41:00 Test Item Value Reference Range Interpretation Comments CALCIUM IONIZED (BEAKER) (test 1.27 mmol/L 1.12-1.27 code = 698) PH, BLOOD (BEAKER) (test code = 7.38 1810) SODIUM NA-STAT [id number] 10:40:00 Test Item Value Reference Range Interpretation Comments SODIUM (BEAKER) (test code = 381) 141 meq/L 135-148 HGB/HCT (H&H) - STAT [id number] 10:40:00 Test Item Value Reference Range Interpretation Comments HEMOGLOBIN (BEAKER) (test code = 13.7 g/dL 12.0-15.0 410) HEMATOCRIT (BEAKER) (test code = 40.0 % 36.0-45.0 411) BLOOD GAS, [id number] 09:53:00 Test Item Value Reference Range Interpretation Comments PH ARTERIAL (BEAKER) (test code = 7.45 7.35-7.45 383) PCO2 ARTERIAL (BEAKER) (test code 38 mmHg 35-45 = 384) PO2 ARTERIAL (BEAKER) (test code = 187 mmHg 80-90 H 385) O2 SATURATION ARTERIAL (BEAKER) 99.4 % 96.0-97.0 H (test code = 386) HCO3 ARTERIAL (BEAKER) (test code 26 mmol/L 21-29 = 388) BASE EXCESS ARTERIAL (BEAKER) 1.7 mmol/L -2.0-3.0 (test code = 387) PATIENT TEMPERATURE (BEAKER) (test 36.0 C code = 1818) FIO2 (BEAKER) (test code = 1819) 50.0 % POTASSIUM-STAT [id number] 09:53:00 Test Item Value Reference Range Interpretation Comments POTASSIUM (BEAKER) (test code = 3.0 meq/L 3.6-5.5 L 379) GLUCOSE-STAT [id number] 09:53:00 Test Item Value Reference Range Interpretation Comments GLUCOSE RANDOM (BEAKER) (test code 135 mg/dL 70-110 H = 652) CALCIUM, [id number] 09:53:00 Test Item Value Reference Range Interpretation Comments CALCIUM IONIZED (BEAKER) (test 1.01 mmol/L 1.12-1.27 L code = 698) PH, BLOOD (BEAKER) (test code = 7.43 1810) SODIUM NA-STAT [id number] 09:51:00 Test Item Value Reference Range Interpretation Comments SODIUM (BEAKER) (test code = 381) 137 meq/L 135-148 HGB/HCT (H&H) - STAT [id number] 09:51:00 Test Item Value Reference Range Interpretation Comments HEMOGLOBIN (BEAKER) (test code = 14.1 g/dL 12.0-15.0 410) HEMATOCRIT (BEAKER) (test code = 41.0 % 36.0-45.0 411) BLOOD GAS, [id number] 08:48:00 Test Item Value Reference Range Interpretation Comments PH ARTERIAL (BEAKER) (test code = 7.43 7.35-7.45 383) PCO2 ARTERIAL (BEAKER) (test code 47 mmHg 35-45 H = 384) PO2 ARTERIAL (BEAKER) (test code = 481 mmHg 80-90 H 385) O2 SATURATION ARTERIAL (BEAKER) 99.9 % 96.0-97.0 H (test code = 386) HCO3 ARTERIAL (BEAKER) (test code 31 mmol/L 21-29 H = 388) BASE EXCESS ARTERIAL (BEAKER) 5.1 mmol/L -2.0-3.0 H (test code = 387) PATIENT TEMPERATURE (BEAKER) (test 36.5 C code = 1818) FIO2 (BEAKER) (test code = 1819) 100.0 % POTASSIUM-STAT [id number] 08:48:00 Test Item Value Reference Range Interpretation Comments POTASSIUM (BEAKER) (test code = 3.1 meq/L 3.6-5.5 L 379) GLUCOSE-STAT [id number] 08:48:00 Test Item Value Reference Range Interpretation Comments GLUCOSE RANDOM (BEAKER) (test code 116 mg/dL 70-110 H = 652) HGB/HCT (H&H) - STAT [id number] 08:48:00 Test Item Value Reference Range Interpretation Comments HEMOGLOBIN (BEAKER) (test code = 15.5 g/dL 12.0-15.0 H 410) HEMATOCRIT (BEAKER) (test code = 46.0 % 36.0-45.0 H 411) CALCIUM, [id number] 08:47:00 Test Item Value Reference Range Interpretation Comments CALCIUM IONIZED (BEAKER) (test 1.12 mmol/L 1.12-1.27 code = 698) PH, BLOOD (BEAKER) (test code = 7.42 1810) SODIUM NA-STAT [id number] 08:46:00 Test Item Value Reference Range Interpretation Comments SODIUM (BEAKER) (test code = 381) 141 meq/L 135-148 POCT-GLUCOSE [id number] 07:58:00 Test Item Value Reference Range Interpretation Comments POC-GLUCOSE METER 105 mg/dL 70-110 TESTED AT [facility] 6720 (BEAKER) (test code = [place] 1538) [address] [id number] 15:19:00 Test Item Value Reference Range Interpretation Comments PARTIAL THROMBOPLASTIN TIME 27.8 seconds 22.5-36.0 (BEAKER) (test code = 760) PROTHROMBIN [id number] 15:18:00 Test Item Value Reference Range Interpretation Comments PROTIME (BEAKER) (test code = 14.4 seconds 11.7-14.7 759) INR (BEAKER) (test code = 370) 1.1 <=5.9 RECOMMENDED COUMADIN/WARFARIN INR THERAPY RANGESSTANDARD DOSE: 2.0 - 3.0 Includes: PROPHYLAXIS forvenous thrombosis, systemic embolization; TREATMENT for venous thrombosis and/or pulmonary embolus.HIGH RISK: Target INR is 2.5-3.5 for patients with mechanical heart valves.COMPREHENSIVE METABOLIC [id number] 15:10:00 Test Item Value Reference Range Interpretation Comments TOTAL PROTEIN 7.7 gm/dL 6.0-8.3 (BEAKER) (test code = 770) ALBUMIN (BEAKER) 4.1 g/dL 3.5-5.0 (test code = 1145) ALKALINE PHOSPHATASE 40 U/L 40-150 (BEAKER) (test code = 346) BILIRUBIN TOTAL 0.8 mg/dL 0.2-1.2 (BEAKER) (test code = 377) SODIUM (BEAKER) (test 143 meq/L 136-145 code = 381) POTASSIUM (BEAKER) 4.1 meq/L 3.5-5.1 (test code = 379) CHLORIDE (BEAKER) 101 meq/L 98-107 (test code = 382) CO2 (BEAKER) (test 30 meq/L 22-29 H code = 355) BLOOD UREA NITROGEN 31 mg/dL 7-21 H (BEAKER) (test code = 354) CREATININE (BEAKER) 1.17 mg/dL 0.57-1.25 (test code = 358) GLUCOSE RANDOM 142 mg/dL 70-105 H (BEAKER) (test code = 652) CALCIUM (BEAKER) 10.5 mg/dL 8.4-10.2 H (test code = 697) AST (SGOT) (BEAKER) 28 U/L 5-34 (test code = 353) ALT (SGPT) (BEAKER) 18 U/L 6-55 (test code = 347) EGFR (BEAKER) (test 44 mL/min/1.73 ESTIMA JOYCE GFR IS code = 1092) sq m NOT ACCURATE CREATININE CLEARANCE IN PREDICTING GLOMERULAR FILTRATION RATE . ESTIMATED GFR I S NOT APPLICABLE FOR DIALYSIS PATIEN TS. RAD, CHEST, 2 [id number] 14:44:00Reason for exam:->preopFINAL REPORT Chest two views [...] MDReport Verified Date/Time: 03/11/2018 14:44:31 Reading Location: [facility] Consult Reading Room CBC W/PLT COUNT & AUTO [id number] 14:43:00 Test Item Value Reference Range Interpretation Comments WHITE BLOOD CELL COUNT (BEAKER) 7.8 K/ L 3.5-10.5 (test code = 775) RED BLOOD CELL COUNT (BEAKER) 5.48 M/ L 3.93-5.22 H (test code = 761) HEMOGLOBIN (BEAKER) (test code = 15.6 GM/DL 11.2-15.7 410) HEMATOCRIT (BEAKER) (test code = 51.3 % 34.1-44.9 H 411) MEAN CORPUSCULAR VOLUME (BEAKER) 93.6 fL 79.4-94.8 (test code = 753) MEAN CORPUSCULAR HEMOGLOBIN 28.5 pg 25.6-32.2 (BEAKER) (test code = 751) MEAN CORPUSCULAR HEMOGLOBIN CONC 30.4 GM/DL 32.2-35.5 L (BEAKER) (test code = 752) RED CELL DISTRIBUTION WIDTH 14.2 % 11.7-14.4 (BEAKER) (test code = 412) PLATELET COUNT (BEAKER) (test 251 K/CU MM 150-450 code = 756) MEAN PLATELET VOLUME (BEAKER) 11.4 fL 9.4-12.3 (test code = 754) NUCLEATED RED BLOOD CELLS 0 /100 WBC 0-0 (BEAKER) (test code = 413) NEUTROPHILS RELATIVE PERCENT 85 % (BEAKER) (test code = 429) LYMPHOCYTES RELATIVE PERCENT 10 % (BEAKER) (test code = 430) MONOCYTES RELATIVE PERCENT 3 % (BEAKER) (test code = 431) EOSINOPHILS RELATIVE PERCENT 0 % (BEAKER) (test code = 432) BASOPHILS RELATIVE PERCENT 1 % (BEAKER) (test code = 437) NEUTROPHILS ABSOLUTE COUNT 6.61 K/ L 1.56-6.13 H (BEAKER) (test code = 670) LYMPHOCYTES ABSOLUTE COUNT 0.79 K/ L 1.18-3.74 L (BEAKER) (test code = 414) MONOCYTES ABSOLUTE COUNT (BEAKER) 0.26 K/ L 0.24-0.36 (test code = 415) EOSINOPHILS ABSOLUTE COUNT 0.01 K/ L 0.04-0.36 L (BEAKER) (test code = 416) BASOPHILS ABSOLUTE COUNT (BEAKER) 0.07 K/ L 0.01-0.08 (test code = 417) IMMATURE GRANULOCYTES-RELATIVE 1 % 0-1 PERCENT (BEAKER) (test code = 2801)
--- NOTE | 2021-01-29 15:47 | RAD REPORT ---
EXAM DESCRIPTION: RAD - Pelvis - 01/29/2021 3:39 pm CLINICAL HISTORY: PAIN COMPARISON: Hip Right 2 View dated 01/29/2021 FINDINGS: Qycy-nu-rmqhxznk osteoarthritis of both hips. No fracture, dislocation or AVN pattern.
--- NOTE | 2021-01-29 15:48 | RAD REPORT ---
EXAM DESCRIPTION: RAD - Hip Right 2 View - 01/29/2021 3:39 pm CLINICAL HISTORY: PAIN COMPARISON: No comparisons FINDINGS: Saud-rk-pfuvtson osteoarthritis of the right hip is seen. No fracture or dislocation is se en. If pain persists, consider MR or CT imaging of the right hip.
--- NOTE | 2021-01-29 18:07 | ER ---
Nurse's Notes [facility] Name: Fanny Arceo Age: 85 yrs Sex: Female : 1935 Arrival Date: 01/29/2021 Time: 14:16 Bed 24 Private MD: Sherry Stock R Diagnosis: Fall from bed;Contusion of right hip Presentation: 01/29 14:22 Chief complaint: Patient states: Awoke on the floor suddenly this morning at 6 am. ss Believes she rolled out of bed. Low back pain and R hip pain since. Abrasions to both knees. Bruising noted RLE. No known LOC. Coronavirus screen: Client denies travel out of the [place] in the last 14 days. At this time, the client does not indicate any symptoms associated with coronavirus-19. Ebola Screen: Patient denies travel to an Ebola-affected area in the 21 days before illness onset. Initial Sepsis Screen: Does the patient meet any 2 criteria? No. Patient's initial sepsis screen is negative. Does the patient have a suspected source of infection? Yes: Bone or joint infection. Risk Assessment: Do you want to hurt yourself or someone else? Patient reports no desire to harm self or others. Onset of symptoms was January 29, 2021. 14:22 Method Of Arrival: Wheelchair ss 14:22 Acuity: JESSE 3 ss Historical: - Allergies: 14:26 Ticlopidine HCl; ss 14:26 Sulfa (Sulfonamide Antibiotics); ss 14:26 Simvastatin; ss 14:26 Morphine; ss 14:26 Atenolol; ss - PMHx: 14:26 Atrial Fib; COPD; Diabetes - IDDM; Hypertension; GERD; CAD; Hyperlipidemia; Clot to ss right arm; neuropathy; Sleep Apnea; High Cholesterol; CHF; Hypothyroidism; chronic renal failure; Depression; - PSHx: 14:26 Hysterectomy; Cholecystectomy; Appendectomy; Heart stents; pacemaker; Aneurysm of Leg ss Artery; - Immunization history:: Client reports receiving the 2nd dose of the Covid vaccine, Flu vaccine is up to date. - Social history:: Smoking status: Patient/guardian denies using tobacco, the patient reports quitting approximately 22 years ago. Screenin:00 Abuse screen: Denies threats or abuse. Nutritional screening: No deficits noted. bb Tuberculosis screening: No symptoms or risk factors identified. Fall Risk None identified. Assessment: 18:00 General: Appears in no apparent distress. uncomfortable, Behavior is calm, cooperative. bb Pain: Complains of pain in left leg and right leg. Neuro: Level of Consciousness is awake, alert, obeys commands, Oriented to person, place, time, situation. Cardiovascular: No deficits noted. Respiratory: Respiratory effort is even, unlabored, Respiratory pattern is regular. GI: No signs and/or symptoms were reported involving the gastrointestinal system. Derm: abrasions to bilateral lower extremities. Musculoskeletal: Circulation, motion, and sensation intact. 18:15 Reassessment: Patient is alert, oriented x 3, equal unlabored respirations, skin bb warm/dry/pink. pt verbalized understanding of and agrees to plan of care discharge instructions given. Vital Signs: 14:22 BP 107 / 65; Pulse 70; Resp 18; Temp 97.9; Pulse Ox 96% ; Weight 91.17 kg; Height 5 ft. ss 6 in. (167.64 cm); Pain 8/10; 18:15 BP 100 / 71; Pulse 69; Resp 18 S; Pulse Ox 94% on 2 lpm NC; bb 14:22 Body Mass Index 32.44 (91.17 kg, 167.64 cm) ss ED Course: 14:16 Patient arrived in ED. mr 14:16 Sherry Stock MD is Private Physician. mr 14:24 Triage completed. ss 14:27 Arm band placed on. ss 15:40 Hip Right 2 View XRAY In Process Unspecified. EDMS 15:40 Pelvis XRAY In Process Unspecified. EDMS 17:49 Luisito Kim, MARY is PHCP. pm1 17:49 Jayson Cooney MD is Attending Physician. pm1 18:00 Patient has correct armband on for positive identification. bb 18:00 No provider procedures requiring assistance completed. Patient did not have IV access bb during this emergency room visit. 18:06 Sherry Stock MD is Referral Physician. pm1 Administered Medications: 18:11 Drug: traMADol 50 mg Route: PO; bb 18:15 Follow up: Response: No adverse reaction bb Outcome: 18:06 Discharge ordered by . pm1 18:15 Discharged to home via wheelchair. bb 18:15 Condition: stable 18:15 Discharge instructions given to patient. 18:15 Discharge instructions given to Instructed on discharge instructions, follow up and referral plans. medication usage, Demonstrated understanding of instructions, follow-up care, medications, Prescriptions given X 1. 18:19 Patient left the ED. calos Signatures: Dispatcher [employer] ANITA ArmenRachelle Brenda, RN RN bb Smirch, Shelby, RN RN ss Luisito Kim, DIGITAL STRATEGIST DIGITAL STRATEGIST pm1
--- NOTE | 2021-01-29 18:07 | EDPHYS ---
Physician Documentation [facility] Name: Fanny Arceo Age: 85 yrs Sex: Female : 1935 Arrival Date: 01/29/2021 Time: 14:16 Bed 24 [facility] MD: Sherry Stock R ED Physician Jayson Cooney HPI: 01/29 18:04 This 85 yrs old Female presents to ER via Wheelchair with complaints of Fall pm1 Injury. 18:04 Details of fall: The patient fell from a supine position, out of bed. Onset: The pm1 symptoms/episode began/occurred this morning. Associated injuries: The patient sustained right bailon, contusion, right lower back, right and left knee, abrasion. Severity of symptoms: in the emergency department the symptoms have improved, mildly, improved with Tylenol at home Pain improved from 10 to 8. The patient has experienced a previous episode. The patient has not recently seen a physician. Around 0600 today the patient woke up on the floor when she apparently rolled out of bed. Patient presenting with a main complaint of right lower back, hip pain. No head injury, headache, neck pain, LOC. Patient with abrasions to knees and contusion to right upper bailon. Patient needed assistance from her son to get up but is able to stand up and bear weight on both legs. Historical: - Allergies: 14:26 Ticlopidine HCl; ss 14:26 Sulfa (Sulfonamide Antibiotics); ss 14:26 Simvastatin; ss 14:26 Morphine; ss 14:26 Atenolol; ss - PMHx: 14:26 Atrial Fib; COPD; Diabetes - IDDM; Hypertension; GERD; CAD; Hyperlipidemia; Clot to ss right arm; neuropathy; Sleep Apnea; High Cholesterol; CHF; Hypothyroidism; chronic renal failure; Depression; - PSHx: 14:26 Hysterectomy; Cholecystectomy; Appendectomy; Heart stents; pacemaker; Aneurysm of Leg ss Artery; - Immunization history:: Client reports receiving the 2nd dose of the Covid vaccine, Flu vaccine is up to date. - Social history:: Smoking status: Patient/guardian denies using tobacco, the patient reports quitting approximately 22 years ago. ROS: 18:04 Constitutional: Negative for fever, chills, and weight loss, Neck: Negative for injury, pm1 pain, and swelling, Cardiovascular: Negative for chest pain, palpitations, and edema, Respiratory: Negative for shortness of breath, cough, wheezing, and pleuritic chest pain, Abdomen/GI: Negative for abdominal pain, nausea, vomiting, diarrhea, and constipation. 18:04 Back: Positive for of the right low back, Negative for decreased range of motion. 18:04 MS/extremity: Positive for contusion, of the right bailon, Abrasion to knees. 18:04 Skin: Positive for abrasions and contusion as noted on MS exam. 18:04 Neuro: Negative for altered mental status, dizziness, headache, loss of consciousness. Exam: 18:04 Constitutional: This is a well developed, well nourished patient who is awake, alert, pm1 and in no acute distress. Head/Face: Normocephalic, atraumatic. 18:04 Chest/axilla: Normal chest wall appearance and motion. Nontender with no deformity. No lesions are appreciated. 18:04 Back: No spinal tenderness. No costovertebral tenderness. Full range of motion. 18:04 MS/ Extremity: Pulses equal, no cyanosis. Neurovascular intact. Full, normal range of motion. 18:04 Eyes: Exam is negative for acute changes, Periorbital structures: appear normal, Extraocular movements: no acute changes. 18:04 Neck: Exam negative for acute changes, obvious evidence of injury or deformity, External neck: tenderness, is not appreciated, C-spine: vertebral tenderness, is not appreciated, ROM/movement: is normal, no acute changes. 18:04 Cardiovascular: Exam negative for acute changes, Rate: normal, Rhythm: regular, Pulses: no pulse deficits are appreciated. 18:04 Respiratory: Exam negative for acute changes, respiratory distress, shortness of breath. 18:04 Skin: Appearance: normal except for affected area, injury, abrasion(s), very small abrasion noted, of the right knee and left knee, contusion(s), that are superficial, of the right bailon. 18:04 Neuro: Orientation: is normal, Mentation: is normal, Motor: moves all fours, strength is 5/5 in all extremities, Gait: Patient able to stand by self and transfer to the bed from wheelchair with assistance. Patient able to bear weight on both legs. Vital Signs: 14:22 BP 107 / 65; Pulse 70; Resp 18; Temp 97.9; Pulse Ox 96% ; Weight 91.17 kg; Height 5 ft. ss 6 in. (167.64 cm); Pain 8/10; 18:15 BP 100 / 71; Pulse 69; Resp 18 S; Pulse Ox 94% on 2 lpm NC; bb 14:22 Body Mass Index 32.44 (91.17 kg, 167.64 cm) ss MDM: 17:50 Patient medically screened. [facility] 18:05 Data reviewed: vital signs. Data interpreted: Pulse oximetry: on 2L(s) per nasal pm1 [place], is 96 %. Interpretation: normal. Counseling: I had a detailed discussion with the patient and/or guardian regarding: the historical points, exam findings, and any diagnostic results supporting the discharge/admit diagnosis, radiology results, the need for outpatient follow up, to return to the emergency department if symptoms worsen or persist or if there are any questions or concerns that arise at home. 18:05 ED course: Informed patient of negative x-ray results and the patient has no further pm1 questions and concerns. She took Tylenol for pain prior to arrival and would like Tramadol for additional pain management at home. Will write a prescription for the medication. 01/29 15:06 Order name: Hip Right 2 View XRAY; Complete Time: 17:50 eb 01/29 15:06 Order name: Pelvis XRAY; Complete Time: 17:50 eb Administered Medications: 18:11 Drug: traMADol 50 mg Route: PO; bb 18:15 Follow up: Response: No adverse reaction bb Disposition: 01/30 08:15 Co-signature as Attending Physician, Jayson Cooney MD I agree with the assessment and [facility] plan of care. Disposition: 01/29/21 18:06 Discharged to Home. Impression: Fall from bed, Contusion of right hip. - Condition is Stable. - Discharge Instructions: Contusion, Fall Prevention in the Home. - Prescriptions for Tramadol 50 mg Oral Tablet - take 1 tablet by ORAL route every 8 hours as needed; 12 tablet. - Medication Reconciliation Form, Thank You Letter, Antibiotic Education, Prescription Opioid Use form. - Follow up: Emergency Department; When: As needed; Reason: Worsening of condition. Follow up: Sherry Stock MD; When: 2 - 3 days; Reason: Recheck today's complaints, Continuance of care, Re-evaluation by your physician. - Problem is new. - Symptoms have improved. Signatures: Dispatcher [employer] EDMS Jayson Cooney MD MD cha Ballard, Brenda, RN RN Griselda Russell RN RN ss Luisito Kim, FOOD SAFETY AUDITOR FOOD SAFETY AUDITOR pm1 Corrections: (The following items were deleted from the chart) 01/29 18:06 18:06 01/29/2021 18:06 Discharged to Home. Impression: Fall from bed. Condition is pm1 Stable. Forms are Medication Reconciliation Form, Thank You Letter, Antibiotic Education, Prescription Opioid Use. Follow up: Emergency Department; When: As needed; Reason: Worsening of condition. Follow up: Sherry Stock; When: 2 - 3 days; Reason: Recheck today's complaints, Continuance of care, Re-evaluation by your physician. Problem is new. Symptoms have improved. pm1 18:19 18:06 01/29/2021 18:06 Discharged to Home. Impression: Fall from bed; Contusion of bb right hip. Condition is Stable. Forms are Medication Reconciliation Form, Thank You Letter, Antibiotic Education, Prescription Opioid Use. Follow up: Emergency Department; When: As needed; Reason: Worsening of condition. Follow up: Sherry Stock; When: 2 - 3 days; Reason: Recheck today's complaints, Continuance of care, Re-evaluation by your physician. Problem is new. Symptoms have improved. pm1
[2021-01-29] MEDS ORDERED: TRAMADOL HCL 50 MG TAB ONE (18:27)
[2021-01-29 18:40] VITALS: BP 107/65; TEMP 97.9; O2SAT 96
== END 2021-01-29 18:19 | disposition home or self-care (01) ==
LOC: ER 14:10
DX: S70.01XA Contusion of right hip, initial encounter (principal); W06.XXXA Fall from bed, initial encounter; Y92.003 Bedroom of unspecified non-institutional (private) residence as the place of occurrence of the external cause; Z88.2 Allergy status to sulfonamides; Z88.5 Allergy status to narcotic agent; Z88.8 Allergy status to other drugs, medicaments and biological substances; Z95.0 Presence of cardiac pacemaker; Z95.818 Presence of other cardiac implants and grafts; E11.22 Type 2 diabetes mellitus with diabetic chronic kidney disease; I13.0 Hypertensive heart and chronic kidney disease with heart failure and stage 1 through stage 4 chronic kidney disease, or unspecified chronic kidney disease; N18.9 Chronic kidney disease, unspecified; I50.9 Heart failure, unspecified
CPT/HCPCS: 72170; 99283

== ENCOUNTER 2021-03-22 18:10 | Inpatient (IN) | payer OTHER, MEDICARE ==
--- OUTSIDE RECORDS SUMMARY | 2021-03-22 18:17 | XMS REPORT | Continuity of Care Document ---
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 Allergies, Adverse Reactions, Alerts Allergy Allergy Status Severity Reaction(s) Onset Inactive Treating Comm ents Source Name Type Date Date Clinician Atenolol Propensi [facility] - adverse 00:00: Medical reaction 00 [place] Morphine Propensi Active [facility] to [facility] of the [facility] - adverse 00:00: face Medical reaction 00 [place] Simvasta Propensi Active [facility] to 6 [facility] - adverse 00:00: Medical reaction 00 [place] Sulfa Propensi Active [facility] [facility] (Sulfona ty to 03-11 T[facility] - mide adverse 00:00: Medical Antibiot reaction 00 Center ics) s Ticlopid Propensi Active [facility] to 604 [facility] - adverse 00:00: Medical reaction 00 [place] Social History Social Habit Start Date Stop Date Quantity Comments Source History of tobacco Smoker [facility] - use [facility]igned At [facility] Cigarettes smoked 2018-06-19 2018-06-19 [facility] - current (pack per 00:00:00 00:00:00 Medical Center day) - Reported Cigarette 2018-06-19 2018-06-19 [facility] - pack-years 00:00:00 00:00:00 [facility] Tobacco use and 2018-06-19 2018-06-19 Never used [...] 4-17 daily. [facility] - MG tablet 00:00: [facility] 00 Center Procedures This patient has no known procedures. Plan of Care Planned Activity Planned Date Details Comments Source Future Scheduled 2021-06-[address] [facility] - Test 00:00:00 (Season Ended) [code = [facility] INFLUENZA VACCINE (Season Ended)] Future Scheduled 2020-10-[address] [facility] - Test 00:00:00 (12+) [code = Medical Center DEPRESSION SCREENING (12+)] Future Scheduled 2019-12-[address] [facility] - Test 00:00:00 measurement [facility] (procedure) [code = 51832574] Future Scheduled 2000-11-[address] [facility] - Test 00:00:00 WELLNESS (YEAR 2 or Medical Center FIRST YEAR if no IPPE) [code = MEDICARE ANNUAL WELLNESS (YEAR 2 or FIRST YEAR if no IPPE)] Future Scheduled 1999 PNEUMOCOCCAL 65+ YRS [facility] - Test 00:00:00 (1 of 1 - Medical Center [id number] PCV13) [code = PNEUMOCOCCAL 65+ YRS (1 of 1 - [id number] PCV13)] Future Scheduled 1984 SHINGLES VACCINES ([address] [facility] - Test 00:00:00 of 2) [code = SHINGLES Medic al Center VACCINES (1 of 2)] Future Scheduled 1953 DTAP/TDAP/TD VACCINES [facility] - Test 00:00:00 (1 - Tdap) [code = Medical C enter DTAP/TDAP/TD VACCINES (1 - Tdap)] Future Scheduled 1946 COVID-19 VACCINE (1) [facility] - Test 00:00:00 [code = COVID-[address] VACCINE (1)] Future Scheduled 1944 DIABETIC EYE EXAM [facility] - Test 00:00:00 [code = DIABETIC EYE Medical Center EXAM] Future Scheduled [address] [facility] - Test 00:00:00 examination Medical Center (regime/therapy) [code = [id number]] Future Scheduled 1944 Urine screening for [facility] - Test 00:00:00 protein (procedure) Medical Center [code = [id number]] Results Test Description Test Time Test Comments Results Result Comments Source POCT-GLUCOSE METER 2019-06-19 07:53:00 Test Item Value Reference Range Interpretation Comme nts POC-GLUCOSE METER (BEAKER) (test 131 mg/dL 70-110 H TESTED AT [facility] [address] [facility] code = 1538) [facility] 7703 0 BASIC METABOLIC [id number] 06:08:00 Test Item Value Reference Range Interpretation [...] PATIEN TS. CBC W/PLT COUNT & AUTO [id number] 05:33:00 Test Item Value Reference Range Interpretation [...] PERCENT (BEAKER) (test code = 2801) POCT-GLUCOSE [id number] 02:04:00 Test Item Value Reference Range Interpretation Comments POC-GLUCOSE METER 143 mg/dL 70-110 H TESTED AT [facility] 67 (BEAKER) (test code = [place] 1538) [address] POCT-GLUCOSE [id number] 17:20:00 Test Item Value Reference Range Interpretation Comments POC-GLUCOSE METER 148 mg/dL 70-110 H TESTED AT [place] [address] (BEAKER) (test code = OTIL[place] Grady [facility] 1538) [address] POCT-GLUCOSE [id number] 13:03:00 Test Item Value Reference Range Interpretation Comments POC-GLUCOSE METER 179 mg/dL 70-110 H TESTED AT [place] [address] (BEAKER) (test [facility] = [facility] 1538) [address] POCT-GLUCOSE [id number] 08:04:00 Test Item Value Reference Range Interpretation Comments POC-GLUCOSE METER 82 mg/dL 70-110 TESTED AT [place] [address] (BEAKER) (test code = [facility] [address] 1538) [id number] 06:10:00 Test Item Value Reference Range Interpretation Comments MAGNESIUM (BEAKER) (test code = 1.9 mg/dL 1.6-2.6 627) BASIC METABOLIC [id number] 06:10:00 Test Item Value Reference Range Interpretation [...] PATIEN TS. CBC W/PLT COUNT & AUTO [id number] 05:25:00 Test Item Value Reference Range Interpretation [...] PERCENT (BEAKER) (test code = 2801) POCT-GLUCOSE [id number] 00:02:00 Test Item Value Reference Range Interpretation Comments POC-GLUCOSE METER 191 mg/dL 70-110 H TESTED AT [place] [address] (BEAKER) (test code = [facility] 1538) [address] POCT-GLUCOSE [id number] 17:16:00 Test Item Value Reference Range Interpretation Comments POC-GLUCOSE METER 170 mg/dL 70-110 H TESTED AT [place] [address] ([facility] (test code = [facility] Miguel A [facility] 1538) [address] POCT-GLUCOSE [id number] 09:03:00 Test Item Value Reference Range Interpretation Comments POC-GLUCOSE METER 97 mg/dL 70-110 TESTED AT [place] [address] (BEAKER) (test code = [facility] Miguel A [facility] [address] 1538) [id number] 07:03:00 Test Item Value Reference Range Interpretation Comments MAGNESIUM (BEAKER) (test code = 1.9 mg/dL 1.6-2.6 627) BASIC METABOLIC [id number] 07:03:00 Test Item Value Reference Range Interpretation [...] S NOT APPLICABLE FOR DIALYSIS PATIEN TS. [id number] 07:03:00 Test Item Value Reference Range Interpretation Comments LIPASE (BEAKER) (test code = 749) 101 U/L 8-78 H CBC W/PLT COUNT & AUTO [id number] 06:46:00 Test Item Value Reference Range Interpretation [...] PERCENT (BEAKER) (test code = 2801) POCT-GLUCOSE [id number] 22:21:00 Test Item Value Reference Range Interpretation Comments POC-GLUCOSE METER 103 mg/dL 70-110 TESTED AT [place] [address] ([facility]) (test code = [facility] 1538) [address] POCT-GLUCOSE [id number] 17:07:00 Test Item Value Reference Range Interpretation Comments POC-GLUCOSE METER 147 mg/dL 70-110 H TESTED AT [place] [address] ([facility]) (test code = [facility] 1538) [address] POCT-GLUCOSE [id number] 09:05:00 Test Item Value Reference Range Interpretation Comments POC-GLUCOSE METER 117 mg/dL 70-110 H TESTED AT [place] [address] ([facility]) (test code = [facility] 1538) [address] CBC W/PLT COUNT & AUTO [id number] 07:06:00 Test Item Value Reference Range Interpretation [...] 0-1 PERCENT (BEAKER) (test code = 2801) [id number] 06:38:00 Test Item Value Reference Range Interpretation Comments MAGNESIUM (BEAKER) 2.0 mg/dL 1.6-2.6 Specimen slightly (test code = 627) hemolyzed BASIC METABOLIC [id number] 06:38:00 Test Item Value Reference Range Interpretation [...] APPLICABLE FOR DIALYSIS PATIEN TS. HEPATIC FUNCTION [id number] 06:38:00 Test Item Value Reference Range Interpretation [...] Specimen slightly (test code = 347) hemolyzed [id number] 06:38:00 Test Item Value Reference Range Interpretation Comments LIPASE (BEAKER) (test code = 749) 122 U/L 8-78 H POCT-GLUCOSE [id number] 21:48:00 Test Item Value Reference Range Interpretation Comments POC-GLUCOSE METER 102 mg/dL 70-110 TESTED AT [facility] 67 ([facility] (test code = [facility] Miguel A [facility] 1538) [address] POCT-GLUCOSE [id number] 17:46:00 Test Item Value Reference Range Interpretation Comments POC-GLUCOSE METER 145 mg/dL 70-110 H TESTED AT [place] [address] ([facility] (test code = [facility] 1538) [address] POCT-GLUCOSE [id number] 12:35:00 Test Item Value Reference Range Interpretation Comments POC-GLUCOSE METER 158 mg/dL 70-110 H TESTED AT [place] [address] ([facility]) (test code = [facility] 1538) [address] POCT-GLUCOSE [id number] 07:47:00 Test Item Value Reference Range Interpretation Comments POC-GLUCOSE METER 119 mg/dL 70-110 H TESTED AT [place] [address] ([facility] (test code = [facility] 1538) [address] [id number] 06:40:00 Test Item Value Reference Range Interpretation Comments LIPASE (BEAKER) (test code = 749) 165 U/L 8-78 H BASIC METABOLIC [id number] 06:40:00 Test Item Value Reference Range Interpretation [...] APPLICABLE FOR DIALYSIS PATIEN TS. HEPATIC FUNCTION [id number] 06:40:00 Test Item Value Reference Range Interpretation [...] 347) hemolyzed CBC W/PLT COUNT & AUTO [id number] 05:57:00 Test Item Value Reference Range Interpretation [...] ABSOLUTE COUNT 0.91 K/ L 1.18-3.74 L (BEAKER) (test code = 414) MONOCYTES ABSOLUTE COUNT (BEAKER) 0.87 K/ L 0.24-0.36 H (test code = 415) EOSINOPHILS ABSOLUTE COUNT 0.19 K/ L 0.04-0.36 (BEAKER) (test code = 416) BASOPHILS ABSOLUTE COUNT (BEAKER) 0.07 K/ L 0.01-0.08 (test code = 417) IMMATURE GRANULOCYTES-RELATIVE 1 % 0-1 PERCENT (BEAKER) (test code = 2801) POCT-GLUCOSE [id number] 21:35:00 Test Item Value Reference Range Interpretation Comments POC-GLUCOSE METER 160 mg/dL 70-110 H TESTED AT [place] [address] ([facility]) (test code = OT[place] Grady [facility] 1538) [address] POCT-GLUCOSE [id number] 18:42:00 Test Item Value Reference Range Interpretation Comments POC-GLUCOSE METER 119 mg/dL 70-110 H TESTED AT [place] [address] ([facility]) (test code = [facility] 1538) [address] POCT-GLUCOSE [id number] 14:33:00 Test Item Value Reference Range Interpretation Comments POC-GLUCOSE METER 80 mg/dL 70-110 TESTED AT [place] [address] ([facility]) (test code = [facility] [address] 1538) POCT-GLUCOSE [id number] 12:29:00 Test Item Value Reference Range Interpretation Comments POC-GLUCOSE METER 81 mg/dL 70-110 TESTED AT [facility] 6720 (BEAKER) (test code = [place] [address] 1538) RAD, CHEST, 1 VIEW, NON [id number] 09:58:00Reason for exam:->copdShould this be performed at the bedside?->YesFINAL REPORT RAD, CHEST, 1 VIEW, NON DEPT INDICATION: copd COMPARISON: March 21, 2018 FINDINGS: Portable frontal view of the chest. IMPRESSION: Support Lines: None. Lungs and pleura: Clear lungs. No pneumothorax.Heart and mediastinum: Stable contours. Stable pacer apparatus.Additional findings: None. Signed: JR Jerome Robert MDReport Verified Date/Time: 06/14/2019 09:58:25 Reading Location: [address] Neuro Reading Room HEMOGLOBIN [id number] 09:20:00 Test Item Value Reference Range Interpretation Comments HEMOGLOBIN A1C (BEAKER) (test code = 7.1 % 4.3-6.1 H 368) LIPID [id number] 06:36:00 Test Item Value Reference Range Interpretation [...] 130-159 High 160-189 Very High >=190BASIC METABOLIC [id number] 06:36:00 Test Item Value Reference Range Interpretation [...] APPLICABLE FOR DIALYSIS PATIEN TS. HEPATIC FUNCTION [id number] 06:36:00 Test Item Value Reference Range Interpretation [...] (test code = 19 U/L 6-55 347) [id number] 06:36:00 Test Item Value Reference Range Interpretation Comments AMYLASE (BEAKER) (test code = 349) 368 U/L 25-125 H [id number] 06:36:00 Test Item Value Reference Range Interpretation Comments LIPASE (BEAKER) (test code = 749) 451 U/L 8-78 H POCT-GLUCOSE [id number] 06:34:00 Test Item Value Reference Range Interpretation Comments POC-GLUCOSE METER 73 mg/dL 70-110 TESTED AT [place] [address] (BEAKER) (test code = [place] [address] 1538) B-TYPE NATRIURETIC FACTOR (BNP)2019-06-14 06:32:00 Test Item Value Reference Range Interpretation Comments B-TYPE NATRIURETIC PEPTIDE (BEAKER) 376 pg/mL 0-100 H (test code = 700) CBC W/PLT COUNT & AUTO [id number] 06:23:00 Test Item Value Reference Range Interpretation [...] PERCENT (BEAKER) (test code = 2801) PROTHROMBIN [id number] 06:21:00 Test Item Value Reference Range Interpretation [...] is2.5-3.5 for patients wiht mechanical heart valves.POCT-GLUCOSE [id number] 00:39:00 Test Item Value Reference Range Interpretation Comments POC-GLUCOSE METER 72 mg/dL 70-110 TESTED AT [place] [address] ([facility]) (test code = OTILIA Grady [facility] [address] 1538) POCT-LACTIC ACID, [id number] 00:00:00 Test Item Value Reference Range Interpretation Comments POC-LACTIC ACID, 0.7 mmol/L 0.4-1.3 TESTED AT [facility] [address] (BEAKER) [place] (test code = 2804) [address] POCT-BLOOD GASES, [id number] 00:00:00 Test Item Value Reference Range Interpretation Comments TEMP, CELSIUS-POC 37.4 (BEAKER) (test code = 1834) FIO2-POC (BEAKER) 28 TESTED AT [place] [address] (test code = 1835) [place] [address] PH, ARTERIAL-POC 7.376 7.350-7.450 (BEAKER) (test code [...] H ARTERIAL-POC (BEAKER) (test code = 1841) [id number] 00:00:00 Test Item Value Reference Range Interpretation Comments POC-SODIUM (BEAKER) 142 meq/L 135-148 TESTED A [place] [address] (test code = 1542) NOY oTlentino [facility] [address] [id number] 00:00:00 Test Item Value Reference Range Interpretation Comments POC-POTASSIUM 3.5 meq/L 3.6-5.5 L TESTED AT [place] [address] ([facility]) (test code [facility] [address] = 1540) [id number] 00:00:00 Test Item Value Reference Range Interpretation Comments POC-GLUCOSE ([facility]) 80 mg/dL 70-110 TESTED AT [place] [address] (test code = 1855) ONY Tolentino [facility] [address] POCT-CALCIUM [id number] 00:00:00 Test Item Value Reference Range Interpretation Comments POC-CALCIUM IONIZED 1.17 mmol/L 1.12-1.27 TESTED [place] [address] ([facility]) (test code = [facility] 1534) [address] [id number] 00:00:00 Test Item Value Reference Range Interpretation Comments POC-HEMATOCRIT 50 % 36-45 H TESTED AT [place] [address] ([facility]) (test code = [facility] Miguel A [facility] [address] 7573) [id number] 00:00:00 Test Item Value Reference Range Interpretation Comments POC-HEMOGLOBIN 17.0 g/dL 12.0-15.0 H TESTED AT [place] [address] (BEAKER) (test code [facility] [place] = 1856) [id number] AT [facility] [address] [place] [address] POCT-GLUCOSE [id number] 20:48:00 Test Item Value Reference Range Interpretation Comments POC-GLUCOSE METER 80 mg/dL 70-110 TESTED AT [facility] 6720 (BEAKER) (test code = [place] [facility] [address] 1538) AFB CULTURE + [id number] 00:11:00 Test Item Value Reference Range Interpretation Comments CULTURE (BEAKER) (test No acid-fast bacilli code = 1095) isolated in 42 days AFB SMEAR (BEAKER) No acid fast bacilli (test code = 994) seen FUNGUS CULTURE + [id number] 17:08:00 Test Item Value Reference Range Interpretation Comments CULTURE (BEAKER) (test No fungus isolated in code = 1095) 28 days FUNGUS SMEAR (BEAKER) No fungi seen (test code = 1406) AFB CULTURE + [id number] 02:56:00 Test Item Value Reference Range Interpretation Comments CULTURE (BEAKER) (test No acid-fast bacilli code = 1095) isolated in 42 days AFB SMEAR (BEAKER) No acid fast bacilli (test code = 994) seen ANAEROBIC [id number] 17:45:00 Test Item Value Reference Range Interpretation Comments CULTURE (BEAKER) (test No anaerobes isolated code = 1095) BLOOD [id number] 17:43:00 Test Item Value Reference Range Interpretation Comments CULTURE (BEAKER) (test No growth in 5 days code = 1095) BLOOD [id number] 17:43:00 Test Item Value Reference Range Interpretation Comments CULTURE (BEAKER) (test No growth in 5 days code = 1095) POCT-GLUCOSE [id number] 12:38:00 Test Item Value Reference Range Interpretation Comments POC-GLUCOSE METER 147 mg/dL 70-110 H TESTED AT [facility] 6720 ([facility]) (test code = OT[place] Grady [facility] 1538) [address] WOUND CULTURE + GRAM [id number] 10:46:00 Test Item Value Reference Interpretation Comments [...] 0-4 , Resistant <0 or >4 CULTURE (AKER) PSEUDOMONAS A 4+ Pseudomo josh (test code [...] 1123) GRAM STAIN RESULT <1+ gram negative (BEAKER) (test code rods = 911273) SURGICALLY OBTAINED CULTURE + GRAM [id number] 08:30:00 Test Item Value Reference Range Interpretation Comments CULTURE (BEAKER) (test code No growth = 1095) GRAM STAIN RESULT (BEAKER) No WBCs (test code = 1123) GRAM STAIN RESULT (BEAKER) No organisms seen (test code = 27855) POCT-GLUCOSE [id number] 07:23:00 Test Item Value Reference Range Interpretation Comments POC-GLUCOSE METER 97 mg/dL 70-110 TESTED AT [place] [address] ([facility]) (test code = [facility] [address] 1538) POCT-GLUCOSE [id number] 22:04:00 Test Item Value Reference Range Interpretation Comments POC-GLUCOSE METER 177 mg/dL 70-110 H TESTED AT [place] [address] ([facility]) (test code = [facility] 1538) [address] POCT-GLUCOSE [id number] 17:38:00 Test Item Value Reference Range Interpretation Comments POC-GLUCOSE METER 232 mg/dL 70-110 H TESTED AT [place] [address] ([facility]) (test code = [facility] 1538) [address] POCT-GLUCOSE [id number] 12:40:00 Test Item Value Reference Range Interpretation Comments POC-GLUCOSE METER 139 mg/dL 70-110 H TESTED AT [place] [address] ([facility]) (test code = OT[place] [facility] 1538) [address] POCT-GLUCOSE [id number] 07:47:00 Test Item Value Reference Range Interpretation Comments POC-GLUCOSE METER 96 mg/dL 70-110 TESTED AT [place] [address] ([facility]) (test code = OTILIA [place]ady [facility] [address] 1538) POCT-GLUCOSE [id number] 04:52:00 Test Item Value Reference Range Interpretation Comments POC-GLUCOSE METER 112 mg/dL 70-110 H TESTED AT [place] [address] ([facility]) (test code = OTILIA [place]ady [facility] 1538) [address] POCT-GLUCOSE [id number] 23:28:00 Test Item Value Reference Range Interpretation Comments POC-GLUCOSE METER 114 mg/dL 70-110 H TESTED AT [place] [address] ([facility]) (test code = OTIL[place]ady [facility] 1538) [address] POCT-GLUCOSE [id number] 17:12:00 Test Item Value Reference Range Interpretation Comments POC-GLUCOSE METER 155 mg/dL 70-110 H TESTED AT [place] [address] ([facility]) (test code = OTILIA [place]ady [facility] 1538) [address] POCT-GLUCOSE [id number] 12:17:00 Test Item Value Reference Range Interpretation Comments POC-GLUCOSE METER 163 mg/dL 70-110 H TESTED AT [place] [address] ([facility]) (test code = OTIL[place]ady [facility] 1538) [address] FUNGUS CULTURE + [id number] 09:29:00 Test Item Value Reference Range Interpretation Comments CULTURE ([facility]) (test No fungus isolated in code = 1095) 28 days FUNGUS SMEAR ([facility]) <1+ hyphal elements (test code = 1406) seen See smear results.POCT-GLUCOSE [id number] 21:47:00 Test Item Value Reference Range Interpretation Comments POC-GLUCOSE METER 211 mg/dL 70-110 H TESTED AT [place] [address] ([facility]) (test code = OT[place]ady [facility] 1538) [address] POCT-GLUCOSE [id number] 17:07:00 Test Item Value Reference Range Interpretation Comments POC-GLUCOSE METER 160 mg/dL 70-110 H TESTED AT [facility] 6720 (BEAKER) (test code = [place] 1538) [address] POCT-GLUCOSE [id number] 11:56:00 Test Item Value Reference Range Interpretation Comments POC-GLUCOSE METER 108 mg/dL 70-110 TESTED AT [facility] 6720 (BEAKER) (test code = [facility] Miguel [place] 1538) [address] COMPREHENSIVE METABOLIC [id number] 23:00:00 Test Item Value Reference Range Interpretation Comments TOTAL PROTEIN 7.5 gm/dL 6.0-8.3 (BEAKER) (test code = 770) ALBUMIN (BEAKER) 3.8 g/dL 3.5-5.0 (test code = 1145) [...] NOT APPLICABLE FOR DIALYSIS PATIEN TS. PROTHROMBIN [id number] 22:52:00 Test Item Value Reference Range Interpretation [...] LYMPHOCYTES ABSOLUTE COUNT 1.37 K/ L 1.18-3.74 ([facility]) (test code = 414) MONOCYTES ABSOLUTE COUNT (AKER) 0.73 K/ L 0.24-0.36 H (test code = 415) EOSINOPHILS ABSOLUTE COUNT 0.12 K/ L 0.04-0.36 ([facility]) (test code = 416) BASOPHILS ABSOLUTE COUNT ([facility]) 0.08 K/ L 0.01-0.08 (test code = 417) IMMATURE GRANULOCYTES-RELATIVE 1 % 0-1 PERCENT ([facility]) (test code = 2801) POCT-GLUCOSE [id number] 22:47:00 Test Item Value Reference Range Interpretation Comments POC-GLUCOSE METER 196 mg/dL 70-110 H TESTED AT [place] [address] ([facility]) (test code = [facility] 1538) [id number] POCT-GLUCOSE [id number] 17:34:00 Test Item Value Reference Range Interpretation Comments POC-GLUCOSE METER 261 mg/dL 70-110 H TESTED AT [place] [address] ([facility]) (test code = [facility] 1538) [id number] POCT-GLUCOSE [id number] 16:52:00 Test Item Value Reference Range Interpretation Comments POC-GLUCOSE METER 254 mg/dL 70-110 H TESTED AT [place] [address] ([facility]) (test code = [facility] 1538) [address] POCT-GLUCOSE [id number] 12:24:00 Test Item Value Reference Range Interpretation Comments POC-GLUCOSE METER 168 mg/dL 70-110 H TESTED AT [place] [address] ([facility]) (test code = [facility] [employer] [facility] 1538) [address] POCT-GLUCOSE [id number] 08:52:00 Test Item Value Reference Range Interpretation Comments POC-GLUCOSE METER 139 mg/dL 70-110 H TESTED AT [place] [address] ([facility]) (test code = [facility] [employer] [facility] 1538) [address] CT, [id number] 08:32:00S/p aortic-bilateral femoral bypass with right groin [...] MDReport Verified Date/Time: 04/21/2018 08:32:26 Reading Location: [facility] [id number] Consult Reading Room POCT-GLUCOSE [id number] 21:51:00 Test Item Value Reference Range Interpretation Comments POC-GLUCOSE METER 132 mg/dL 70-110 H TESTED AT [place] [address] ([facility]) (test code = [facility] 1538) [address] POCT-GLUCOSE [id number] 16:54:00 Test Item Value Reference Range Interpretation Comments POC-GLUCOSE METER 126 mg/dL 70-110 H TESTED AT [place] [address] ([facility]) (test code = [facility] 1538) 86681 POCT-GLUCOSE [id number] 12:41:00 Test Item Value Reference Range Interpretation Comments POC-GLUCOSE METER 163 mg/dL 70-110 H TESTED AT [place] [address] ([facility]) (test code = [facility] 1538) [address] POCT-GLUCOSE [id number] 07:37:00 Test Item Value Reference Range Interpretation Comments POC-GLUCOSE METER 96 mg/dL 70-110 TESTED AT [place] [address] ([facility]) (test code = [facility] [address] 1538) BASIC METABOLIC [id number] 06:21:00 Test Item Value Reference Range Interpretation [...] PATIEN TS. CBC W/PLT COUNT & AUTO [id number] 05:46:00 Test Item Value Reference Range Interpretation [...] PERCENT (BEAKER) (test code = 2801) POCT-GLUCOSE [id number] 21:11:00 Test Item Value Reference Range Interpretation Comments POC-GLUCOSE METER 152 mg/dL 70-110 H TESTED AT [facility] 67 ([facility]) [facility] 1538) [address] POCT-GLUCOSE [id number] 16:41:00 Test Item Value Reference Range Interpretation Comments POC-GLUCOSE METER 100 mg/dL 70-110 TESTED AT [place] [address] ([facility]) ([facility] = [facility] 1538) [address] POCT-GLUCOSE [id number] 13:05:00 Test Item Value Reference Range Interpretation Comments POC-GLUCOSE METER 127 mg/dL 70-110 H TESTED AT [place] [address] ([facility]) (test code = [facility] Miguel A [facility] 1538) [address] TSH/FREE T4 IF [id number] 12:05:00 Test Item Value Reference Range Interpretation Comments THYROID STIMULATING HORMONE 2.75 uIU/mL 0.35-4.94 (BEAKER) (test code = 772) [id number] 11:48:00 Test Item Value Reference Range Interpretation Comments MAGNESIUM (BEAKER) (test code = 2.2 mg/dL 1.6-2.6 627) BASIC METABOLIC [id number] 11:48:00 Test Item Value Reference Range Interpretation [...] NOT APPLICABLE FOR DIALYSIS PATIEN TS. POCT-GLUCOSE [id number] 11:40:00 Test Item Value Reference Range Interpretation Comments POC-GLUCOSE METER 118 mg/dL 70-110 H TESTED AT [facility] 6720 ([facility]) (test code = [place] 1538) [address] CBC W/PLT COUNT & AUTO [id number] 11:30:00 Test Item Value Reference Range Interpretation [...] PERCENT (BEAKER) (test code = 2801) ANAEROBIC [id number] 02:34:00 Test Item Value Reference Range Interpretation Comments CULTURE (BEAKER) (test No anaerobes isolated code = 1095) SURGICALLY OBTAINED CULTURE + GRAM [id number] 14:05:00 Test Item Value Reference Range Interpretation Comments CULTURE (BEAKER) (test code No growth = 1095) GRAM STAIN RESULT (BEAKER) 1+ WBCs (test code = 1123) GRAM STAIN RESULT (BEAKER) No organisms seen (test code = 67411) POCT-GLUCOSE [id number] 12:39:00 Test Item Value Reference Range Interpretation Comments POC-GLUCOSE METER 131 mg/dL 70-110 H TESTED AT [facility] 6720 (BEAKER) (test code = [place] 1538) [address] POCT-GLUCOSE [id number] 08:01:00 Test Item Value Reference Range Interpretation Comments POC-GLUCOSE METER 106 mg/dL 70-110 TESTED AT [facility] 6720 (BEAKER) (test code = [place] 1538) [address] BASIC METABOLIC [id number] 06:21:00 Test Item Value Reference Range Interpretation [...] PATIEN TS. CBC W/PLT COUNT & AUTO [id number] 05:48:00 Test Item Value Reference Range Interpretation [...] PERCENT (BEAKER) (test code = 2801) POCT-GLUCOSE [id number] 21:47:00 Test Item Value Reference Range Interpretation Comments POC-GLUCOSE METER 161 mg/dL 70-110 H TESTED AT [facility] 6720 (BEAKER) (test code = [place] 1538) [address] POCT-GLUCOSE [id number] 17:08:00 Test Item Value Reference Range Interpretation Comments POC-GLUCOSE METER 189 mg/dL 70-110 H TESTED AT [facility] 6720 (BEAKER) (test code = [place] 1538) [address] POCT-GLUCOSE [id number] 11:12:00 Test Item Value Reference Range Interpretation Comments POC-GLUCOSE METER 197 mg/dL 70-110 H TESTED AT [facility] 6720 (BEAKER) (test code = [place] 1538) [address] POCT-GLUCOSE [id number] 07:35:00 Test Item Value Reference Range Interpretation Comments POC-GLUCOSE METER 113 mg/dL 70-110 H TESTED AT [facility] 6720 (BEAKER) (test code = [place] 1538) [address] BASIC METABOLIC [id number] 06:23:00 Test Item Value Reference Range Interpretation [...] PATIEN TS. CBC W/PLT COUNT & AUTO [id number] 06:12:00 Test Item Value Reference Range Interpretation [...] PERCENT (BEAKER) (test code = 2801) POCT-GLUCOSE [id number] 21:04:00 Test Item Value Reference Range Interpretation Comments POC-GLUCOSE METER 143 mg/dL 70-110 H TESTED AT [facility] 6720 [facility] (test code = [place] 1538) [address] POCT-GLUCOSE [id number] 17:04:00 Test Item Value Reference Range Interpretation Comments POC-GLUCOSE METER 182 mg/dL 70-110 H TESTED AT [facility] 6720 (BEAKER) (test code = [place] 1538) [address] SPIN/CONCENTRATION [id number] 15:07:00 Test Item Value Reference Range Interpretation Comments CONCENTRATION CHARGED (BEAKER) (test Done code = 2657) POCT-GLUCOSE [id number] 11:38:00 Test Item Value Reference Range Interpretation Comments POC-GLUCOSE METER 141 mg/dL 70-110 H TESTED AT [facility] 6720 (BEAKER) (test code = [place] [facility] 1538) 139[address] POCT-GLUCOSE [id number] 08:13:00 Test Item Value Reference Range Interpretation Comments POC-GLUCOSE METER 122 mg/dL 70-110 H TESTED AT [facility] 6720 (BEAKER) (test code = [place] [facility] 1538) [address] BASIC METABOLIC [id number] 05:20:00 Test Item Value Reference Range Interpretation [...] PATIEN TS. CBC W/PLT COUNT & AUTO [id number] 04:58:00 Test Item Value Reference Range Interpretation [...] PERCENT (BEAKER) (test code = 2801) POCT-GLUCOSE [id number] 21:18:00 Test Item Value Reference Range Interpretation Comments POC-GLUCOSE METER 147 mg/dL 70-110 H TESTED AT [facility] 6720 (BEAKER) (test code = [place] 1539) [address] TISSUE [id number] 15:55:00Surgical Pathology Report Case: [id number] Authorizing Provider: Billy Mcmanus, Collected: 03/18/2018 1046 Ordering Location: [facility] Received: 03/18/2018 1131 PERIOPERATIVE SERVICES Pathologist: Chris Caraballo MD Specimen: Plaque, AORTIC PLAQUE AORTA, ATHERECTOMY:CALCIFIC ATHEROSCLEROTIC PLAQUE Signing Pathologist Direct Phone Line: [phone] signed by Chris Caraballo MD on 03/25/2018 at 3:55 [id number]; [id number] plaque Received in saline labeled "plaque", description "aortic plaque" is a 4.5 x 3.5 x 0.6 cm aggregate of felix-white to yellow-panchal, rubbery, calcified fibrous tissue.[employer] sections are submitted in cassette A1 for decalcification. DB/ew PerformedPOTASSIUM-STAT [id number] 11:04:00 Test Item Value Reference Range Interpretation Comments POTASSIUM (BEAKER) (test code = 3.0 meq/L 3.6-5.5 L 379) HGB/HCT (H&H) - STAT [id number] 11:04:00 Test Item Value Reference Range Interpretation Comments HEMOGLOBIN (BEAKER) (test code = 11.2 g/dL 12.0-15.0 L 410) HEMATOCRIT (BEAKER) (test code = 33.0 % 36.0-45.0 L 411) GLUCOSE-STAT [id number] 11:04:00 Test Item Value Reference Range Interpretation Comments GLUCOSE RANDOM (BEAKER) (test code 116 mg/dL 70-110 H = 652) POCT-GLUCOSE [id number] 07:01:00 Test Item Value Reference Range Interpretation Comments POC-GLUCOSE METER 91 mg/dL 70-110 TESTED AT [facility] 6720 (BEAKER) (test code = [place] [facility] [address] 1538) BASIC METABOLIC [id number] 05:12:00 Test Item Value Reference Range Interpretation [...] PATIEN TS. CBC W/PLT COUNT & AUTO [id number] 04:36:00 Test Item Value Reference Range Interpretation [...] PERCENT (BEAKER) (test code = 2801) POCT-GLUCOSE [id number] 21:06:00 Test Item Value Reference Range Interpretation Comments POC-GLUCOSE METER 152 mg/dL 70-110 H TESTED AT [facility] 6720 (BEAKER) (test [facility] = [facility] 1538) [address] POCT-GLUCOSE [id number] 17:43:00 Test Item Value Reference Range Interpretation Comments POC-GLUCOSE METER 155 mg/dL 70-110 H TESTED AT [facility] 6720 (BEAKER) (test code = [facility] Miguel A [facility] 1538) [address] POCT-GLUCOSE [id number] 12:30:00 Test Item Value Reference Range Interpretation Comments POC-GLUCOSE METER 167 mg/dL 70-110 H TESTED AT [facility] 6720 (BEAKER) (test code = [facility] Miguel A [facility] 1538) [address] POCT-GLUCOSE [id number] 07:13:00 Test Item Value Reference Range Interpretation Comments POC-GLUCOSE METER 111 mg/dL 70-110 H TESTED AT [facility] 6720 (BEAKER) (test code = [facility] Miguel A [facility] 1538) [address] BASIC METABOLIC [id number] 05:33:00 Test Item Value Reference Range Interpretation [...] PATIEN TS. CBC W/PLT COUNT & AUTO [id number] 04:58:00 Test Item Value Reference Range Interpretation [...] PERCENT (BEAKER) (test code = 2801) POCT-GLUCOSE [id number] 20:59:00 Test Item Value Reference Range Interpretation Comments POC-GLUCOSE METER 178 mg/dL 70-110 H TESTED AT [place] [address] ([facility]) (test code = [facility] 1538) 109[address] POCT-GLUCOSE [id number] 18:18:00 Test Item Value Reference Range Interpretation Comments POC-GLUCOSE METER 137 mg/dL 70-110 H TESTED AT [place] [address] ([facility]) (test code = [facility] 1538) 67[address] RAD, SPINE, LUMBAR, COMPLETE (MIN 4 VIEWS)2018-03-23 [...] MDReport Verified Date/Time: 03/23/2018 16:25:16 Reading Location: [facility] B1 C013X Ortho Consult Reading Room Electronically signed by: Ruby DANIEL 03/23/2018 04:25 PMSPUTUM CULTURE + GRAM [id number] 10:41:00 Test Item Value Reference Range Interpretation Comments CULTURE (BEAKER) 3+ Normal respiratory (test code = 1095) anu present GRAM STAIN RESULT <1+ WBCs (BEAKER) (test code = 1123) GRAM STAIN RESULT 10-15 epithelial cells (BEAKER) (test code = 15705) GRAM STAIN RESULT 1+ gram positive cocci (BEAKER) (test code = in pairs 30328) POCT-GLUCOSE [id number] 08:09:00 Test Item Value Reference Range Interpretation Comments POC-GLUCOSE METER 94 mg/dL 70-110 TESTED AT [facility] 6720 (BEAKER) (test code = [place] [address] 1538) BASIC METABOLIC [id number] 06:23:00 Test Item Value Reference Range Interpretation [...] 697) EGFR (BEAKER) (test 81 mL/min/1.73 ESTIMA JYOCE GFR IS code = 1092) sq m NOT ACCURATE CREATININE CLEARANCE IN PREDICTING GLOMERULAR FILTRATION RATE . ESTIMATED GFR I S NOT APPLICABLE FOR DIALYSIS PATIEN TS. CBC W/PLT COUNT & AUTO [id number] 06:00:00 Test Item Value Reference Range Interpretation [...] PERCENT (BEAKER) (test code = 2801) POCT-GLUCOSE [id number] 21:32:00 Test Item Value Reference Range Interpretation Comments POC-GLUCOSE METER 238 mg/dL 70-110 H TESTED AT [facility] 6720 (BEAKER) (test code = [place] 1538) [address] POCT-GLUCOSE [id number] 12:11:00 Test Item Value Reference Range Interpretation Comments POC-GLUCOSE METER 102 mg/dL 70-110 TESTED AT [facility] 6720 (BEAKER) (test code = [place] [facility] 1538) 85294 POCT-GLUCOSE [id number] 07:49:00 Test Item Value Reference Range Interpretation Comments POC-GLUCOSE METER 93 mg/dL 70-110 TESTED AT [facility] 6720 (BEAKER) (test code = [place] [facility] [address] 1538) BASIC METABOLIC [id number] 06:14:00 Test Item Value Reference Range Interpretation [...] PATIEN TS. CBC W/PLT COUNT & AUTO [id number] 05:44:00 Test Item Value Reference Range Interpretation [...] PERCENT (BEAKER) (test code = 2801) POCT-GLUCOSE [id number] 21:06:00 Test Item Value Reference Range Interpretation Comments POC-GLUCOSE METER 116 mg/dL 70-110 H TESTED AT [facility] 6720 (BEAKER) (test code = [place] 1538) [address] POCT-GLUCOSE [id number] 16:33:00 Test Item Value Reference Range Interpretation Comments POC-GLUCOSE METER 138 mg/dL 70-110 H TESTED AT [facility] 6720 ([facility]) (test code = [place] 1538) [address] POCT-GLUCOSE [id number] 12:15:00 Test Item Value Reference Range Interpretation Comments POC-GLUCOSE METER 150 mg/dL 70-110 H TESTED AT [place] [address] ([facility]) (test code = [place] [facility] 1538) [address] POCT-GLUCOSE [id number] 09:03:00 Test Item Value Reference Range Interpretation Comments POC-GLUCOSE METER 101 mg/dL 70-110 TESTED AT [place] [address] ([facility]) (test code = [place] [facility] 1538) [address] RAD, CHEST, 1 VIEW, NON [id number] 08:03:00Reason for exam:->post cardiovascular procedureShould this be [...] cannot be excluded. Signed: Freya Turcios Verified Date/Time: 03/21/2018 08:03:21 Reading Location: [facility] Diagnostic Imaging Reading Room - [place] [address] [id number] 04:37:00 Test Item Value Reference Range Interpretation Comments MAGNESIUM (BEAKER) 1.9 mg/dL 1.6-2.6 Specimen slightly (test code = 627) hemolyzed BASIC METABOLIC [id number] 04:37:00 Test Item Value Reference Range Interpretation [...] PATIEN TS. CBC W/PLT COUNT & AUTO [id number] 04:27:00 Test Item Value Reference Range Interpretation [...] EOSINOPHILS ABSOLUTE COUNT 0.07 K/ L 0.04-0.36 (BEAKER) (test code = 416) BASOPHILS ABSOLUTE COUNT (BEAKER) 0.04 K/ L 0.01-0.08 (test code = 417) IMMATURE GRANULOCYTES-RELATIVE 1 % 0-1 PERCENT (BEAKER) (test code = 2801) POCT-GLUCOSE [id number] 20:59:00 Test Item Value Reference Range Interpretation Comments POC-GLUCOSE METER 111 mg/dL 70-110 H TESTED AT [place] [address] ([facility]) (test code = [place] [facility] 1538) [address] POCT-GLUCOSE [id number] 18:33:00 Test Item Value Reference Range Interpretation Comments POC-GLUCOSE METER 101 mg/dL 70-110 TESTED AT [place] [address] ([facility]) (test code = [place] [facility] 1538) [address] POCT-GLUCOSE [id number] 16:33:00 Test Item Value Reference Range Interpretation Comments POC-GLUCOSE METER 128 mg/dL 70-110 H TESTED AT [place] [address] ([facility]) (test code = [place] [facility] 1538) [address] POCT-GLUCOSE [id number] 11:35:00 Test Item Value Reference Range Interpretation Comments POC-GLUCOSE METER 129 mg/dL 70-110 H TESTED AT [place] [address] ([facility]) (test code = [place] [facility] 1538) [address] HEMOGLOBIN [id number] 08:58:00 Test Item Value Reference Range Interpretation Comments HEMOGLOBIN A1C (BEAKER) (test code = 6.0 % 4.3-6.1 368) RAD, CHEST, 1 VIEW, NON [id number] 08:06:00Reason for exam:->post cardiovascular procedureShould this be [...] MDReport Verified Date/Time: 03/20/2018 08:06:53 Reading Location: [facility] Radiology Reading Room POCT-GLUCOSE [id number] 06:21:00 Test Item Value Reference Range Interpretation Comments POC-GLUCOSE METER 133 mg/dL 70-110 H TESTED AT [facility] 6720 (BEAKER) (test code = [place] [facility] 1538) [address] [id number] 06:00:00 Test Item Value Reference Range Interpretation Comments MAGNESIUM (BEAKER) (test code = 2.0 mg/dL 1.6-2.6 627) BASIC METABOLIC [id number] 06:00:00 Test Item Value Reference Range Interpretation [...] PATIEN TS. CBC W/PLT COUNT & AUTO [id number] 05:39:00 Test Item Value Reference Range Interpretation [...] PERCENT (BEAKER) (test code = 2801) POCT-GLUCOSE [id number] 00:24:00 Test Item Value Reference Range Interpretation Comments POC-GLUCOSE METER 117 mg/dL 70-110 H TESTED AT [facility] 67 ([facility]) (test code = [facility] Miguel A [facility] 1538) [address] POCT-GLUCOSE [id number] 17:07:00 Test Item Value Reference Range Interpretation Comments POC-GLUCOSE METER 132 mg/dL 70-110 H TESTED AT [place] [address] ([facility]) (test code = [facility] A [facility] 1538) [address] RAD, ABDOMEN/KUB, 1 VIEW [id number] 15:02:00Reason for exam:->nausea and eructationsFINAL REPORT TECHNIQUE: [...] Glass Verified Date/Time: 03/19/2018 15:02:35 Reading Location: [facility] Radiology Reading Room POCT- GLUCOSE [id number] 10:23:00 Test Item Value Reference Range Interpretation Comments POC-GLUCOSE METER 111 mg/dL 70-110 H TESTED AT [facility] 6720 ([facility]) (test code = [facility] [place] A [facility] 1538) [address] RAD, CHEST, 1 VIEW, NON [id number] 08:26:00Reason for exam:->post cardiovascular procedureShould this be [...] pacemaker. Signed: Alia Garrett MDReport Verified Date/Time: 03/19/2018 08:26:26 Reading Location: [facility] Radiology Reading Room POCT-GLUCOSE [id number] 06:09:00 Test Item Value Reference Range Interpretation Comments POC-GLUCOSE METER 120 mg/dL 70-110 H TESTED AT [facility] 6720 (BEAKER) (test code = [place] [facility] 1538) [address] POCT-GLUCOSE [id number] 06:09:00 Test Item Value Reference Range Interpretation Comments POC-GLUCOSE METER 120 mg/dL 70-110 H TESTED AT [facility] 6720 (BEAKER) (test code = [facility] Miguel A [facility] 1538) [address] [id number] 04:28:00 Test Item Value Reference Range Interpretation Comments MAGNESIUM (BEAKER) 2.2 mg/dL 1.6-2.6 Specimen slightly (test code = 627) hemolyzed BASIC METABOLIC [id number] 04:28:00 Test Item Value Reference Range Interpretation [...] PATIEN TS. CBC W/PLT COUNT & AUTO [id number] 04:19:00 Test Item Value Reference Range Interpretation [...] (BEAKER) (test code = 2801) BLOOD GAS, [id number] 04:01:00 Test Item Value Reference Range Interpretation [...] code = 1819) 40.0 % BLOOD GAS, [id number] 22:23:00 Test Item Value Reference Range Interpretation [...] (test code = 1819) 40.0 % GLUCOSE-STAT [id number] 22:23:00 Test Item Value Reference Range Interpretation Comments GLUCOSE RANDOM (BEAKER) (test code 140 mg/dL 70-110 H = 652) [id number] 20:01:00 Test Item Value Reference Range Interpretation Comments POTASSIUM (BEAKER) (test code = 3.7 meq/L 3.5-5.1 379) 8 hours after PO replacement [id number] 20:01:00 Test Item Value Reference Range Interpretation Comments MAGNESIUM (BEAKER) (test code = 2.2 mg/dL 1.6-2.6 627) 8 hours after PO replacement completedBLOOD GAS, [id number] 19:27:00 Test Item Value Reference Range Interpretation [...] (test code = 1819) 40.0 % POCT-GLUCOSE [id number] 19:09:00 Test Item Value Reference Range Interpretation Comments POC-GLUCOSE METER 123 mg/dL 70-110 H TEST[facility] AT [place] [address] [facility] (test code = [place] [facility] 1538) [address] POCT-GLUCOSE [id number] 18:02:00 Test Item Value Reference Range Interpretation Comments POC-GLUCOSE METER 108 mg/dL 70-110 TESTED AT [place] [address] ([facility]) (test code = [place] 1538) [address] POCT-GLUCOSE [id number] 17:06:00 Test Item Value Reference Range Interpretation Comments POC-GLUCOSE METER 103 mg/dL 70-110 TESTED AT [place] [address] ([facility]) (test code = OT[place] 1538) [address] POCT-GLUCOSE [id number] 16:00:00 Test Item Value Reference Range Interpretation Comments POC-GLUCOSE METER 121 mg/dL 70-110 H TESTED AT [facility] 67[address] (BEAKER) (test code = OTILIA [place] 1538) [address] POCT-GLUCOSE [id number] 15:45:00 Test Item Value Reference Range Interpretation Comments POC-GLUCOSE METER 146 mg/dL 70-110 H TESTED AT [facility] [address] (BEAKER) (test code = [place] 1538) [address] BLOOD GAS, [id number] 15:25:00 Test Item Value Reference Range Interpretation [...] = 1819) 40.0 % PLATELET AGGREGATION: FUNCTION [id number] 13:34:00 Test Item Value Reference Range Interpretation Comments WEAK ADP 63 % 60-91 RESULT(BEAKER) (test code = 2135) PLATELET FUNCTION 60-100% indicates SCREEN INTERP (BEAKER) normal platelet (test code = 2173) function [id number] Teresa De León MD (BEAKER) (test code = (electronic signature) 0922) PLATELET COUNT AGG 209 K/CU MM 150-450 [...] Garrett Verified Date/Time: 03/18/2018 13:15:44 Reading Location: [facility] B1 [id number] Consult Reading Room [id number] 13:04:00 Test Item Value Reference Range Interpretation Comments MAGNESIUM (BEAKER) (test code = 1.8 mg/dL 1.6-2.6 627) BASIC METABOLIC [id number] 13:04:00 Test Item Value Reference Range Interpretation [...] S NOT APPLICABLE FOR DIALYSIS PATIEN TS. [id number] 12:43:00 Test Item Value Reference Range Interpretation Comments PHOSPHORUS (BEAKER) (test code = 3.9 mg/dL 2.3-4.7 604) LACTIC ACID, VENOUS, WHOLE [id number] 12:15:00 Test Item Value Reference Range Interpretation Comments LACTATE BLOOD VENOUS 1.0 mmol/L 0.5-2.2 Specime n slightly (2) (BEAKER) (test hemolyzed code = 2872) Effective 02/09/2016: Units/Reference Range ChangeNew: 0.5-2.2 mmol/L Previous: 5-20 mg/dLCBC W/PLT COUNT & AUTO [id number] 12:06:00 Test Item Value Reference Range Interpretation [...] code = 2801) HGB/HCT (H&H) - STAT [id number] 12:01:00 Test Item Value Reference Range Interpretation Comments HEMOGLOBIN (BEAKER) (test code = 13.8 g/dL 12.0-15.0 410) HEMATOCRIT (BEAKER) (test code = 41.0 % 36.0-45.0 411) CALCIUM, [id number] 12:01:00 Test Item Value Reference Range Interpretation Comments CALCIUM IONIZED (BEAKER) (test 1.25 mmol/L 1.12-1.27 code = 698) PH, BLOOD (BEAKER) (test code = 7.37 1810) BLOOD GAS, [id number] 12:01:00 Test Item Value Reference Range Interpretation [...] (test code = 1819) 60.0 % POTASSIUM-STAT [id number] 12:01:00 Test Item Value Reference Range Interpretation Comments POTASSIUM (BEAKER) (test code = 3.0 meq/L 3.6-5.5 L 379) GLUCOSE-STAT [id number] 12:01:00 Test Item Value Reference Range Interpretation Comments GLUCOSE RANDOM (BEAKER) (test code 139 mg/dL 70-110 H = 652) BLOOD GAS, [id number] 10:42:00 Test Item Value Reference Range Interpretation [...] (test code = 1819) 50.0 % POTASSIUM-STAT [id number] 10:42:00 Test Item Value Reference Range Interpretation Comments POTASSIUM (BEAKER) (test code = 3.1 meq/L 3.6-5.5 L 379) GLUCOSE-STAT [id number] 10:42:00 Test Item Value Reference Range Interpretation Comments GLUCOSE RANDOM (BEAKER) (test code 139 mg/dL 70-110 H = 652) CALCIUM, [id number] 10:41:00 Test Item Value Reference Range Interpretation Comments CALCIUM IONIZED (BEAKER) (test 1.27 mmol/L 1.12-1.27 code = 698) PH, BLOOD (BEAKER) (test code = 7.38 1810) SODIUM NA-STAT [id number] 10:40:00 Test Item Value Reference Range Interpretation Comments SODIUM (BEAKER) (test code = 381) 141 meq/L 135-148 HGB/HCT (H&H) - STAT [id number] 10:40:00 Test Item Value Reference Range Interpretation Comments HEMOGLOBIN (BEAKER) (test code = 13.7 g/dL 12.0-15.0 410) HEMATOCRIT (BEAKER) (test code = 40.0 % 36.0-45.0 411) BLOOD GAS, [id number] 09:53:00 Test Item Value Reference Range Interpretation [...] (test code = 1819) 50.0 % POTASSIUM-STAT [id number] 09:53:00 Test Item Value Reference Range Interpretation Comments POTASSIUM (BEAKER) (test code = 3.0 meq/L 3.6-5.5 L 379) GLUCOSE-STAT [id number] 09:53:00 Test Item Value Reference Range Interpretation Comments GLUCOSE RANDOM (BEAKER) (test code 135 mg/dL 70-110 H = 652) CALCIUM, [id number] 09:53:00 Test Item Value Reference Range Interpretation Comments CALCIUM IONIZED (BEAKER) (test 1.01 mmol/L 1.12-1.27 L code = 698) PH, BLOOD (BEAKER) (test code = 7.43 1810) SODIUM NA-STAT [id number] 09:51:00 Test Item Value Reference Range Interpretation Comments SODIUM (BEAKER) (test code = 381) 137 meq/L 135-148 HGB/HCT (H&H) - STAT [id number] 09:51:00 Test Item Value Reference Range Interpretation Comments HEMOGLOBIN (BEAKER) (test code = 14.1 g/dL 12.0-15.0 410) HEMATOCRIT (BEAKER) (test code = 41.0 % 36.0-45.0 411) BLOOD GAS, [id number] 08:48:00 Test Item Value Reference Range Interpretation [...] (test code = 1819) 100.0 % POTASSIUM-STAT [id number] 08:48:00 Test Item Value Reference Range Interpretation Comments POTASSIUM (BEAKER) (test code = 3.1 meq/L 3.6-5.5 L 379) GLUCOSE-STAT [id number] 08:48:00 Test Item Value Reference Range Interpretation Comments GLUCOSE RANDOM (BEAKER) (test code 116 mg/dL 70-110 H = 652) HGB/HCT (H&H) - STAT [id number] 08:48:00 Test Item Value Reference Range Interpretation Comments HEMOGLOBIN (BEAKER) (test code = 15.5 g/dL 12.0-15.0 H 410) HEMATOCRIT (BEAKER) (test code = 46.0 % 36.0-45.0 H 411) CALCIUM, [id number] 08:47:00 Test Item Value Reference Range Interpretation Comments CALCIUM IONIZED (BEAKER) (test 1.12 mmol/L 1.12-1.27 code = 698) PH, BLOOD (BEAKER) (test code = 7.42 1810) SODIUM NA-STAT [id number] 08:46:00 Test Item Value Reference Range Interpretation Comments SODIUM (BEAKER) (test code = 381) 141 meq/L 135-148 POCT-GLUCOSE [id number] 07:58:00 Test Item Value Reference Range Interpretation Comments POC-GLUCOSE METER 105 mg/dL 70-110 TESTED AT [facility] 6720 (BEAKER) (test code = [place] [place] 1538) [address] [id number] 15:19:00 Test Item Value Reference Range Interpretation Comments PARTIAL THROMBOPLASTIN TIME 27.8 seconds 22.5-36.0 (BEAKER) (test code = 760) PROTHROMBIN [id number] 15:18:00 Test Item Value Reference Range Interpretation Comments PROTIME (BEAKER) (test code = 14.4 seconds 11.7-14.7 759) INR (BEAKER) (test code = 370) 1.1 <=5.9 RECOMMENDED COUMADIN/WARFARIN INR THERAPY RANGESSTANDARD DOSE: 2.0 - 3.0 Includes: PROPHYLAXIS forvenous thrombosis, systemic embolization; TREATMENT for venous thrombosis and/or pulmonary embolus.HIGH RISK: Target INR is 2.5-3.5 for patients with mechanical heart valves.COMPREHENSIVE METABOLIC [id number] 15:10:00 Test Item Value Reference Range Interpretation [...] FOR DIALYSIS PATIEN TS. RAD, CHEST, 2 [id number] 14:44:00Reason for exam:->preopFINAL REPORT Chest two views [...] MDReport Verified Date/Time: 03/11/2018 14:44:31 Reading Location: [address] Consult Reading Room CBC W/PLT COUNT & AUTO [id number] 14:43:00 Test Item Value Reference Range Interpretation [...] % 0-1 PERCENT (BEAKER) (test code = 9877)
[2021-03-22 19:05] LABS: Absolute Lymphocytes (CBC) 1.2 K/uL (0.7-4.9); Hematocrit 44.8 % (36.0-45.0); Lymphocytes % 17.5 % (15.3-44.8); MPV 10.9 fL (7.6-11.3); RBC Red Blood Cell Count 4.68 M/uL (3.86-4.86)
[2021-03-22 19:13] LABS: Protime INR 0.98
[2021-03-22 19:25] LABS: Albumin 3.5 g/dL (3.4-5.0); Bilirubin Direct 0.2 mg/dL (0-0.2); Bilirubin Total 0.4 mg/dL (0.2-1.0); Magnesium 2.6 mg/dL (1.8-2.4); Potassium 4.5 mmol/L (3.5-5.1); Protein, Total 8.1 g/dL (6.4-8.2); Troponin (Emerg Dept Use Only) 0.15 ng/mL (0.0-0.045)
--- NOTE | 2021-03-22 19:30 | RAD REPORT ---
EXAM DESCRIPTION: CT - Head C Spine Cap Wo Con - 03/22/2021 7:04 pm TECHNIQUE: Computed axial tomography of the head and cervical spine was obtained. Coronal and sagitt al reconstruction was performed Computed axial tomography of the chest, abdomen and pelvis was obtained. Contrast was not requested. All CT scans are performed using dose optimization technique as appropriate and may include automated exposure control or mA/KV adjustment according to patient size. CLINICAL HISTORY: Head and neck injury with chest and abdominal pain status post fall COMPARISON: CT chest 2019 CT 1000 FINDINGS: An intracranial bleed is not seen. The ventricles are normal in caliber. An extra-axial fluid collection is not noted. . Fluid within the sinuses/mastoids is not seen. A cervical fracture is not seen. No dislocation is noted. The evaluation of mediastinum, susan, vessels, solid organs and bowel are limited secondary to the lac k of contrast administration. A mediastinal hematoma is not noted. A pleural effusion is not seen. A lung contusion is not present. The liver,spleen, pancreas, adrenals,kidneys and bladder do not demonstrate a traumatic injury. Hepatic cysts unchanged. Small ventral hernia. Small nonobstructing renal calculus. Aortobifemoral gr aft. IMPRESSION: 1. No acute intracranial abnormality is seen. 2. A cervical fracture is not visualized. If the patient continues have symptoms to suggest intracran ial/spinal cord pathology MRI be recommended 3. No traumatic abnormality involving the chest/abdomen/pelvis.
[2021-03-22] MEDS ORDERED: LIDOCAINE 1% W/EPI 1:100,000 MDV 20 ML VIAL ONE (19:55)
[2021-03-22] MEDS ORDERED: FENTANYL CITR 100 MCG/2 ML ONE (19:55)
--- NOTE | 2021-03-22 19:57 | RAD REPORT ---
EXAM DESCRIPTION: RAD - Hand Right 3 View - 03/22/2021 7:43 pm CLINICAL HISTORY: Right hand pain status post injury FINDINGS: No fracture or dislocation is seen.
--- NOTE | 2021-03-22 20:04 | RAD REPORT ---
EXAM DESCRIPTION: RAD - Knee Left 3 View - 03/22/2021 7:43 pm CLINICAL HISTORY: Left knee pain status post injury FINDINGS: No fracture or dislocation is seen. Marked osteoarthritis medial compartment. Marked anteromedial soft tissue swelling. If the patient continues to have symptoms to suggest an occult fracture, tendon, meniscal or ligament ous injury MRI would be recommended
--- NOTE | 2021-03-22 20:31 | EDPHYS ---
Physician Documentation [facility] Name: Fanny Arceo Age: 85 yrs Sex: Female : 1935 Arrival Date: 03/22/2021 Time: 18:16 Bed 19 Private MD: ED Physician Jayson Cooney HPI: 03/22 18:35 This 85 yrs old Female presents to ER via EMS with complaints of Fall. cp 18:35 Details of fall: The patient fell from an upright position, while standing. Onset: The cp symptoms/episode began/occurred just prior to arrival. Associated injuries: The patient sustained left knee, swelling, right hand, laceration. Patient reports she was at home and stood up, reports next thing she remembers is waking up on floor. Patient c/o pain to left knee and right hand. Historical: - Allergies: 18:18 Atenolol; tr6 18:18 Simvastatin; tr6 18:18 Morphine; tr6 18:18 Ticlopidine HCl; tr6 18:18 Sulfa (Sulfonamide Antibiotics); tr6 - Home Meds: 18:35 albuterol sulfate 2.5 mg /3 mL (0.083 %) Inhl nebu Q 4 hrs PRN [Active]; levothyroxine vg1 125 mcg tab 1 tab once daily [Active]; gabapentin 600 mg Oral tab 1 tab twice a day [Active]; fenofibrate 145 MG Oral 1 cap once daily [Active]; aspirin 325 mg Oral TbEC 1 tab once daily [Active]; famotidine 40 mg Oral tab 1 tab once daily [Active]; losartan-hydrochlorothiazide 100-25 mg Oral tab 1 tab once daily [Active]; carvedilol oral oral [Active]; Spironolactone Oral [Active]; Furosemide Oral [Active]; - PMHx: 18:18 Sleep Apnea; Hypothyroidism; Hypertension; Hyperlipidemia; GERD; Diabetes - IDDM; tr6 Depression; COPD; Clot to right arm; CHF; chronic renal failure; Atrial Fib; High Cholesterol; CAD; neuropathy; - Immunization history:: Adult Immunizations up to date. - Social history:: Smoking status: unknown. ROS: 18:40 Constitutional: Negative for body aches, chills, fever, poor PO intake. cp 18:40 Eyes: Negative for injury, pain, redness, and discharge. cp 18:40 Neck: Negative for pain with movement, pain at rest, stiffness. 18:40 Cardiovascular: Negative for chest pain, palpitations. 18:40 Respiratory: Negative for cough, shortness of breath, wheezing. 18:40 Abdomen/GI: Negative for abdominal pain, nausea, vomiting, and diarrhea, black/tarry stool, rectal bleeding. 18:40 Back: Negative for radiated pain. 18:40 MS/extremity: Positive for pain, of the left knee and right hand. 18:40 Neuro: Negative for altered mental status, headache. 18:40 All other systems are negative. Exam: 18:45 Constitutional: The patient appears in no acute distress, alert, awake, cp non-diaphoretic, non-toxic, well developed, well nourished. 18:45 Head/Face: Normocephalic, atraumatic. cp 18:45 Eyes: Pupils: equal, round, and reactive to light and accomodation, Extraocular movements: intact throughout, Conjunctiva: normal, no exudate, no injection, Sclera: no appreciated abnormality, Lids and lashes: appear normal, bilaterally. 18:45 ENT: External ear(s): are unremarkable, Nose: is normal, Mouth: Lips: moist, Oral mucosa: moist, Posterior pharynx: Airway: no evidence of obstruction, patent. 18:45 Neck: ROM/movement: pain, that is mild, with any movement, limited range of motion, is not appreciated, nuchal rigidity, is not appreciated. 18:45 Chest/axilla: Inspection: normal, Palpation: is normal, no crepitus, no tenderness. 18:45 Cardiovascular: Rate: normal, Rhythm: regular, Edema: is not appreciated, JVD: is not appreciated. 18:45 Respiratory: the patient does not display signs of respiratory distress, Respirations: normal, no use of accessory muscles, no retractions, labored breathing, is not present, Breath sounds: are clear throughout, no decreased breath sounds, no stridor, no wheezing. 18:45 Abdomen/GI: Inspection: abdomen appears normal, Palpation: abdomen is soft and non-tender, in all quadrants. 18:45 Back: vertebral tenderness, is not appreciated. 18:45 Musculoskeletal/extremity: Extremities: grossly normal except: noted in the left knee: pain, swelling, tenderness, suprapatellar effusion, noted in the right hand: laceration, tenderness. 18:45 Skin: cellulitis, is not appreciated, no rash present. 18:45 Neuro: Orientation: to person, place \T\ time. Mentation: is normal. 18:50 ECG was reviewed by the Attending Physician. Vital Signs: 18:16 BP 116 / 52; Pulse 70; Resp 20; Pulse Ox 99% on 2 lpm NC; tr6 20:00 BP 141 / 51; Pulse 70; Resp 16; Pulse Ox 99% on R/A; Weight 92.99 kg (R); jb4 21:00 BP 123 / 62; Pulse 73; Resp 16; Pulse Ox 100% on R/A; jb4 22:00 BP 117 / 66; Pulse 70; Resp 16; Temp 98.0(O); Pulse Ox 100% on R/A; jb4 23:00 BP 122 / 53; Pulse 79; Resp 16; Pulse Ox 96% on R/A; jb4 MDM: 18:25 Patient medically screened. 19:00 Differential diagnosis: closed head injury, contusion, fracture, multiple trauma, acute cp AK. 20:24 Data reviewed: vital signs, nurses notes, lab test result(s), EKG, radiologic studies, cp CT scan, plain films. 20:30 Physician consultation: Filemon FORRESTER was contacted at 20:20, regarding admission, to the telemetry unit. patient's condition, and will see patient in ED, would like admission per Dr. Jean-Claude Rodrigues. 03/22 18:33 Order name: Basic Metabolic Panel; Complete Time: 19:26 03/22 19:42 Interpretation: Normal except: CO2 38; BUN 58; CRE 1.78; GFR 27. 03/22 18:33 Order name: CBC with Diff; Complete Time: 19:26 03/22 18:33 Order name: LFT's; Complete Time: 19:26 03/22 20:23 Interpretation: Normal except: ALK 39; GLOB 4.6; A/G 0.8. 03/22 18:33 Order name: Magnesium; Complete Time: 19:26 03/22 18:33 Order name: PT-INR; Complete Time: 19:26 03/22 18:33 Order name: Troponin (emerg Dept Use Only); Complete Time: 19:26 cp 06/15 19:26 Interpretation: Abnormal: TROPED 0.15. cp 03/22 18:33 Order name: XRAY Hand RIGHT 3 View; Complete Time: 20:11 cp 15 20:11 Interpretation: Report reviewed. cp 03/22 18:33 Order name: XRAY Knee LEFT 3 view; Complete Time: 20:11 cp 15 20:11 Interpretation: Report reviewed. cp 03/22 18:33 Order name: CT Traumagram (Head C Spine CAP wo con); Complete Time: 19:41 cp 15 22:05 Order name: SARS-COV-2 RT PCR EDMS 03/22 18:33 Order name: EKG; Complete Time: 18:34 cp 03/22 18:33 Order name: Cardiac monitoring; Complete Time: 18:53 cp 03/22 18:33 Order name: EKG - Nurse/Tech; Complete Time: 18:50 cp 03/22 18:33 Order name: IV Saline Lock; Complete Time: 18:53 cp 03/22 18:33 Order name: Labs collected and sent; Complete Time: 18:53 cp 15 18:33 Order name: O2 Per Protocol; Complete Time: 18:37 cp 15 18:33 Order name: O2 Sat Monitoring; Complete Time: 18:37 cp 15 19:30 Order name: Dressing - Wound; Complete Time: 19:52 cp 15 19:30 Order name: Gloves, Sterile; Complete Time: 19:52 cp 15 19:30 Order name: Setup Suture Tray; Complete Time: 19:52 cp 15 19:30 Order name: Knee Immobilizer; Complete Time: 20:33 cp 15 21:15 Order name: CONS Physician Consult EDMS EC:50 Rate is 70 beats/min. Rhythm is regular with Ventricular paced. QRS interval is cp prolonged at 192 msec. QT interval is normal. Interpreted by me. Reviewed by me. Administered Medications: 19:50 Drug: fentaNYL (PF) 25 mcg Route: IVP; Site: right forearm; jb4 19:50 Drug: Lidocaine-Epinephrine -1%: (1:100,000) 5 ml {Note: administered by ER provider..} jb4 Volume: 20 ml; Route: Infiltration; 20:31 Drug: Lovenox (enoxaparin) 1 mg/kg Route: Sub-Q; Site: right lower abdomen; jb4 Disposition: 03/23 08:03 Co-signature as Attending Physician, Jayson Cooney MD I agree with the assessment and [facility] plan of care. Disposition: 03/22/21 20:31 Hospitalization ordered by Jean-Claude Rodrigues for Observation. Preliminary diagnosis are Syncope and collapse, Effusion, left knee. - Bed requested for Telemetry/MedSurg (observation). - Status is Observation. jb4 - Condition is Stable. - Problem is new. - Symptoms have improved. Signatures: Dispatcher [employer] EDLA Jayson Cooney MD MD cha Page, Corey, PA PA cp Neelam Arrington, RN RN cg Mohinder aTo RN RN jb4 Uyen Arrington RN RN vg1 Ashley Fierro RN RN tr6 Corrections: (The following items were deleted from the chart) 03/22 20:18 19:52 CORONAVIRUS+MR.LAB.BRZ ordered. EDLA EDMS 20:24 20:23 ALK 39; GLOB 4.6; A/G 0.8. cp cp 22:48 20:31 Hospitalization Ordered by Jean-Claude Rodrigues for Observation. Preliminary diagnosis cg is Syncope and collapse; Effusion, left knee. Bed requested for Telemetry/MedSurg (observation). Status is Observation. Condition is Stable. Problem is new. Symptoms have improved. cp 23:44 22:48 03/22/2021 20:31 Hospitalization Ordered by Jean-Claude Rodrigues for Observation. jb4 Preliminary diagnosis is Syncope and collapse; Effusion, left knee. Bed requested for Telemetry/MedSurg (observation). Status is Observation. Condition is Stable. Problem is new. Symptoms have improved. cg
--- NOTE | 2021-03-22 20:31 | ER ---
Nurse's Notes [facility] Name: Fanny Arceo Age: 85 yrs Sex: Female : 1935 Arrival Date: 03/22/2021 Time: 18:16 Bed 19 Private MD: Diagnosis: Syncope and collapse;Effusion, left knee Presentation: 03/22 18:16 Chief complaint: EMS states: fall.pt unsure if it was a mechanical fall or if she tr6 passed out. pt c/o right hand laceration, left elbow laceration, and left knee pain from fall. Ebola Screen: No symptoms or risks identified at this time. Initial Sepsis Screen: Does the patient meet any 2 criteria? No. Patient's initial sepsis screen is negative. Does the patient have a suspected source of infection? No. Patient's initial sepsis screen is negative. Risk Assessment: Do you want to hurt yourself or someone else? Patient reports no desire to harm self or others. Onset of symptoms was March 22, 2021. 18:16 Method Of Arrival: EMS: [facility] tr6 18:16 Acuity: JESSE 2 tr6 Triage Assessment: 18:18 General: Appears in no apparent distress. comfortable, obese, Behavior is calm, tr6 cooperative, appropriate for age. Pain: Complains of pain in right hand, left elbow, and left knee. EENT: No deficits noted. Neuro: No deficits noted. Cardiovascular: No deficits noted. Respiratory: Airway is patent Parent/caregiver reports the patient having baseline wears 2-3 L NC at home. GI: No deficits noted. Abdomen is round obese. : No deficits noted. Derm: Skin is fragile, is thin. Musculoskeletal: No deficits noted. Injury Description: Abrasion sustained to left elbow Bruise sustained to left knee Laceration sustained to right hand. Historical: - Allergies: 18:18 Atenolol; tr6 18:18 Simvastatin; tr6 18:18 Morphine; tr6 18:18 Ticlopidine HCl; tr6 18:18 Sulfa (Sulfonamide Antibiotics); tr6 - Home Meds: 18:35 albuterol sulfate 2.5 mg /3 mL (0.083 %) Inhl nebu Q 4 hrs PRN [Active]; levothyroxine vg1 125 mcg tab 1 tab once daily [Active]; gabapentin 600 mg Oral tab 1 tab twice a day [Active]; fenofibrate 145 MG Oral 1 cap once daily [Active]; aspirin 325 mg Oral TbEC 1 tab once daily [Active]; famotidine 40 mg Oral tab 1 tab once daily [Active]; losartan-hydrochlorothiazide 100-25 mg Oral tab 1 tab once daily [Active]; carvedilol oral oral [Active]; Spironolactone Oral [Active]; Furosemide Oral [Active]; - PMHx: 18:18 Sleep Apnea; Hypothyroidism; Hypertension; Hyperlipidemia; GERD; Diabetes - IDDM; tr6 Depression; COPD; Clot to right arm; CHF; chronic renal failure; Atrial Fib; High Cholesterol; CAD; neuropathy; - Immunization history:: Adult Immunizations up to date. - Social history:: Smoking status: unknown. Screenin:21 Abuse screen: Denies threats or abuse. Denies injuries from another. Nutritional tr6 screening: No deficits noted. Tuberculosis screening: No symptoms or risk factors identified. Fall Risk Fall in past 12 months (25 points). Assessment: 18:29 General: Appears in no apparent distress. comfortable, Behavior is calm, cooperative. vg1 Pain: Complains of pain in Left Knee and Right hand Pain currently is 6 out of 10 on a pain scale. Pain began 1 hour ago. Neuro: Level of Consciousness is awake, alert, obeys commands, Oriented to person, place, time, situation. Cardiovascular: Patient's skin is warm and dry. Respiratory: Airway is patent Respiratory effort is even, unlabored, Pt on 2 L NC. GI: No signs and/or symptoms were reported involving the gastrointestinal system. : No signs and/or symptoms were reported regarding the genitourinary system. EENT: No signs and/or symptoms were reported regarding the EENT system. Derm: Skin is thin, has skin tears on Right hand at base of index finger Skin is pink, warm \T\ dry. Musculoskeletal: Swelling present in Left Knee. Injury Description: Laceration sustained to dorsal aspect of proximal phalanx of right index finger. 19:01 Reassessment: Pt currently in CT. jb4 19:49 Reassessment: Patient appears in no apparent distress at this time. Patient and/or jb4 family updated on plan of care and expected duration. Pain level reassessed. Patient is alert, oriented x 3, equal unlabored respirations, skin warm/dry/pink. 21:00 Reassessment: Patient appears in no apparent distress at this time. Patient and/or jb4 family updated on plan of care and expected duration. Pain level reassessed. Patient is alert, oriented x 3, equal unlabored respirations, skin warm/dry/pink. 22:00 Reassessment: Patient appears in no apparent distress at this time. Patient and/or jb4 family updated on plan of care and expected duration. Pain level reassessed. Patient is alert, oriented x 3, equal unlabored respirations, skin warm/dry/pink. 23:00 Reassessment: Patient appears in no apparent distress at this time. Patient and/or jb4 family updated on plan of care and expected duration. Pain level reassessed. Patient is alert, oriented x 3, equal unlabored respirations, skin warm/dry/pink. Vital Signs: 18:16 BP 116 / 52; Pulse 70; Resp 20; Pulse Ox 99% on 2 lpm NC; tr6 20:00 BP 141 / 51; Pulse 70; Resp 16; Pulse Ox 99% on R/A; Weight 92.99 kg (R); jb4 21:00 BP 123 / 62; Pulse 73; Resp 16; Pulse Ox 100% on R/A; jb4 22:00 BP 117 / 66; Pulse 70; Resp 16; Temp 98.0(O); Pulse Ox 100% on R/A; jb4 23:00 BP 122 / 53; Pulse 79; Resp 16; Pulse Ox 96% on R/A; jb4 ED Course: 18:16 Patient arrived in ED. tr6 18:17 Triage completed. tr6 18:21 Patient has correct armband on for positive identification. Fall risk band placed. tr6 Placed in gown. Bed in low position. Call light in reach. Side rails up X2. hall monitor on. Pulse ox on. NIBP on. Notified ED physician of. Door closed. Noise minimized. Visitors limited. Lights dimmed. Warm blanket given. 18:21 No provider procedures requiring assistance completed. tr6 18:24 Jayson Mendez PA is PHCP. cp 18:24 Jayson Cooney MD is Attending Physician. cp 18:29 Uyen Arrington, NIKOLAS is Primary Nurse. vg1 18:32 Arm band placed on. vg1 18:50 Initial lab(s) drawn, by al, sent to lab. Inserted saline lock: 22 gauge in left vg1 antecubital area, using aseptic technique. Blood collected. 19:01 Primary Nurse role handed off by Uyen Arrington RN jb4 19:01 Mohinder Tao, RN is Primary Nurse. jb4 19:04 CT Traumagram (Head C Spine CAP wo con) In Process Unspecified. EDMS 19:43 XRAY Hand RIGHT 3 View In Process Unspecified. EDMS 19:43 XRAY Knee LEFT 3 view In Process Unspecified. EDMS 19:45 IV discontinued, intact, bleeding controlled, No redness/swelling at site. Pressure jb4 dressing applied. 19:45 Inserted saline lock: 20 gauge in right forearm, using aseptic technique. jb4 20:30 Jean-Claude Rodrigues is Hospitalizing Provider. cp 23:24 Patient admitted, IV remains in place. jb4 Administered Medications: 19:50 Drug: fentaNYL (PF) 25 mcg Route: IVP; Site: right forearm; jb4 19:50 Drug: Lidocaine-Epinephrine -1%: (1:100,000) 5 ml {Note: administered by ER provider..} jb4 Volume: 20 ml; Route: Infiltration; 20:31 Drug: Lovenox (enoxaparin) 1 mg/kg Route: Sub-Q; Site: right lower abdomen; jb4 Outcome: 20:31 Decision to Hospitalize by Provider. cp 23:23 Admitted to Med/surg accompanied by maria guadalupe, via stretcher, room 216, with chart, Report jb4 called to NIKOLAS Kovacs 23:23 Condition: stable 23:23 Discharge instructions given to patient, Instructed on the need for admit, Demonstrated understanding of instructions. 23:44 Patient left the ED. jb4 Signatures: Dispatcher [employer] EDMS Jayson eMndez PA PA cp Mohinder Tao, RN RN jb4 Uyen Arrington, RN RN vg1 Ashley Fierro RN RN tr6 Corrections: (The following items were deleted from the chart) 23:23 22:00 BP 117 / 66; Pulse 70bpm; Resp 16bpm; Pulse Ox 100% RA; jb4 jb4
[2021-03-22] MEDS ORDERED: ENOXAPARIN 30 MG/0.3 ML SQ ONE (20:46)
[2021-03-22] MEDS ORDERED: ENOXAPARIN 60 MG/0.6 ML SQ ONE (20:46)
--- NOTE | 2021-03-22 21:50 | P.HP ---
Certification for Inpatient Patient admitted to: Observation With expected LOS: <2 Midnights Patient will require the following post-hospital care: None Practitioner: I am a practitioner with admitting privileges, knowledge of patient current condition, hospital course, and medical plan of care. Services: Services provided to patient in accordance with Admission requirements found in Title 42 Section 412.3 of the Code of Federal Regulations Patient History Date of Service: 03/22/21 Primary Care Provider: River Reason for admission: syncope and fall History of Present Illness: Ms. Arceo is a 85 yo F with CHF, COPD, T2DM, afib w/ pacemaker, CKD, GERD, PAD here today for a syncopal episode. She was laying down and then sat up to go to the bathroom. The next thing she remembers is being on the floor. She says she felt otherwise normal throughout the day. Her son says he heard her fall and then she called for his help. She reports pain in her left knee and right hand. Trauma scan wnl. HCO3 38. BUN 58, Cr 1.78, GFR 27. Trop 0.15. Allergies morphine Allergy (Verified 02/20/18 12:54) Hives ticlopidine HCl [From Ticlid] Adverse Reaction (Verified 02/20/18 12:54) Hives/Rash Sulfa (Sulfonamid Allergy (Mild, Uncoded 01/24/19 21:31) Unknown Home Medications: Fenofibrate [Tricor*] 145 mg PO BEDTIME 10/08/17 Gabapentin [Neurontin] 600 mg PO BID 10/08/17 Aspirin 325 mg PO DAILY 02/09/18 Levothyroxine Sodium [Synthroid] 125 mcg PO DAILY 01/25/19 Albuterol Sulfate [Albuterol Sulfate 0.083% Neb Soln] 2.5 mg IH Q4H PRN 06/20/19 Sertraline [Zoloft*] 50 mg PO BEDTIME 06/20/19 Losartan Potassium [Cozaar*] 100 mg PO DAILY 07/18/19 Amlodipine [Norvasc*] 5 mg PO BID #60 tab 07/21/19 Furosemide [Lasix*] 20 mg PO BIDL #60 tab 07/21/19 Spironolactone [Aldactone*] 25 mg PO DAILY #30 tab 07/21/19 Bimatoprost [Lumigan] 1 drop EACH EYE BEDTIME 11/06/19 Famotidine 1 tab PO DAILY 11/06/19 Insulin Detemir [Levemir Flextouch] 10 unit SQ DAILY 11/06/19 Levofloxacin [Levaquin] 250 mg PO DAILY #5 tablet 11/08/19 predniSONE [Prednisone*] 20 mg PO DAILY #7 tab 11/08/19 - Past Medical/Surgical History Diabetic: Yes -: HTN -: Hyperlipidemia -: Diabetes mellitus type 2 -: COPD -: History of DVT/PE -: History of atrial fibrillation requiring pacemaker -: GERD -: Depression -: Hypothyroidism -: Arthritis -: History of esophageal stricture -: Chronic renal disease -: Cholecystectomy -: Appendectomy -: Hysterectomy -: PANCREATIC SX D/T MASS, no cancer noted -: cataract surgery -: "leg artery" aneurysm Psychosocial/ Personal History: The patient is a . She has 4 children. - Family History Brother -: Seizures Mother -: Heart disease Father -: Hypertension, Stroke - Social History Smoking Status: Never smoker Alcohol use: No CD- Drugs: No Caffeine use: Yes Place of Residence: Home Review of Systems 10-point ROS is otherwise unremarkable Musculoskeletal: Hand Pain, Leg Pain Physical Examination - Physical Exam General: Alert HEENT: Atraumatic, PERRLA, Mucous membr. moist/pink, EOMI, Sclerae nonicteric Neck: Supple, 2+ carotid pulse no bruit, No LAD, Without JVD or thyroid abnormality Respiratory: Clear to auscultation bilaterally, Normal air movement Cardiovascular: Regular rate/rhythm, Normal S1 S2 Gastrointestinal: Normal bowel sounds, No tenderness Musculoskeletal: Swelling, Tenderness, Other (large left knee effusion) Integumentary: No rashes, Other (lac repair on right hand ) Neurological: Normal speech, Normal strength at 5/5 x4 extr, Normal tone, Sensation intact, Cranial nerves 3-12 intact, Normal affect Lymphatics: No axilla or inguinal lymphadenopathy - Studies Laboratory Data (last 24 hrs) 03/22/21 18:50: PT 11.3, INR 0.98 03/22/21 18:50: WBC 7.10, Hgb 14.5, Hct 44.8, Plt Count 190 03/22/21 18:50: Sodium 142, Potassium 4.5, BUN 58 H, Creatinine 1.78 H, Glucose 102, Magnesium 2.6 H, Total Bilirubin 0.4, AST 30, ALT 21, Alkaline Phosphatase 39 L Assessment and Plan - Problems (Diagnosis) (1) Syncope and collapse Current Visit: Yes Status: Acute (2) Effusion, left knee Current Visit: Yes Status: Acute (3) Chronic atrial fibrillation Current Visit: No Status: Chronic (4) CAD (coronary artery disease) Onset Date: 10/19/17 Current Visit: No Status: Chronic Qualifiers: Coronary Disease-Associated Artery/Lesion type: unspecified vessel or lesion type [place] vs. transplanted heart: unspecified whether [place] or transplanted heart Associated angina: without angina Qualified Code(s): I25.10 - Atherosclerotic heart disease of [place] coronary artery without angina pectoris (5) CHF (congestive heart failure) Current Visit: No Status: Chronic Qualifiers: Heart failure type: unspecified Heart failure chronicity: chronic Qualified Code(s): I50.9 - Heart failure, unspecified (6) COPD (chronic obstructive pulmonary disease) Onset Date: 10/11/17 Current Visit: No Status: Chronic (7) Chronic renal disease Onset Date: 10/19/17 Current Visit: No Status: Chronic Qualifiers: Chronic kidney disease stage: stage 4 (severe) Qualified Code(s): N18.4 - Chronic kidney disease, stage 4 (severe) (8) Depression with anxiety Onset Date: 10/11/17 Current Visit: No Status: Chronic (9) Diabetes mellitus Onset Date: 10/19/17 Current Visit: No Status: Chronic Qualifiers: Diabetes mellitus type: type 2 Diabetes mellitus intermediate insulin use: with intermediate use Diabetes mellitus complication status: with kidney complications Diabetes mellitus complication detail: with chronic kidney disease Chronic kidney disease stage: stage 4 (severe) Qualified Code(s): E11.22 - Type 2 diabetes mellitus with diabetic chronic kidney disease; N18.4 - Chronic kidney disease, stage 4 (severe); Z79.4 - [facility] (current) use of insulin (10) Essential (primary) hypertension Onset Date: 10/11/17 Current Visit: No Status: Chronic (11) Hypothyroidism Onset Date: 10/11/17 Current Visit: No Status: Chronic Qualifiers: Hypothyroidism type: unspecified Qualified Code(s): E03.9 - Hypothyroidism, unspecified (12) PAD (peripheral artery disease) Onset Date: 03/29/18 Current Visit: No Status: Chronic - Plan cardiology consulted on telemetry, trend troponins, received full dose Loveno in ED BNP pending, orthostatic VS in the AM PT consulted, ortho consulted, continue acetaminophen and pain management PRN nephrology consulted, avoid NSAIDs, hold ACEi/ARBs, will continue to monitor Cr does not appear volume overload or volume depleted, may be due to medications or may be patient's baseline ADA diet, accuchecks and sliding scale insulin BP stable, will reconcile and continue home medications will reconcile other home medications Discharge Plan: Home Plan to discharge in: 24 Hours - Advance Directives Does patient have a Living Will: Yes Does patient have a Durable POA for Healthcare: Yes - Code Status/Comfort Care Code Status Assessed: Yes (full code ) Critical Care: No Time Spent Managing Pts Care (In Minutes): 70
[2021-03-22] MEDS ORDERED: ACETAMINOPHEN 500 MG TAB PO PRN (23:44)
[2021-03-22] MEDS ORDERED: HYDRALAZINE HCL 20 MG/ML VIAL IV PRN (23:44)
[2021-03-22] MEDS ORDERED: ONDANSETRON 4 MG/2 ML VIAL IV PRN (23:44)
[2021-03-22] MEDS ORDERED: FENTANYL CITR 100 MCG/2 ML IV PRN (23:44)
[2021-03-23 00:24] VITALS: BMI 32.0
[2021-03-23] MEDS: GABAPENTIN 300 MG CAP PO SCH ×4 (00:58→20:43)
[2021-03-23] MEDS: SERTRALINE HCL 50 MG TAB PO SCH ×2 (00:59→20:43)
[2021-03-23 03:30] LABS: Absolute Lymphocytes (CBC) 1.3 K/uL (0.7-4.9); Basophils % 0.7 % (0-1.3); Hematocrit 39.6 % (36.0-45.0); Lymphocytes % 21.8 % (15.3-44.8); RBC Red Blood Cell Count 4.18 M/uL (3.86-4.86)
[2021-03-23 03:40] LABS: Albumin 3.1 g/dL (3.4-5.0); Bilirubin Total 0.5 mg/dL (0.2-1.0); Magnesium 2.4 mg/dL (1.8-2.4); Phosphorus 3.5 mg/dL (2.5-4.9); Potassium 4.3 mmol/L (3.5-5.1); Protein, Total 7.1 g/dL (6.4-8.2); Thyroid Stimulating Hormone 2.21 uIU/mL (0.360-3.740)
[2021-03-23] MEDS: ALBUTEROL 2.5 MG/3 ML NEB SOL NEB PRN ×3 (05:01→20:10)
[2021-03-23] MEDS: IPRATROPIUM BROM 0.5MG/2.5ML NEB PRN ×3 (05:01→20:10)
[2021-03-23 05:24] LABS: Urine Appearance CLOUDY (Clear); Urine Bilirubin NEGATIVE (Negative); Urine Blood NEGATIVE (Negative); Urine Color YELLOW (Yellow); Urine Glucose NEGATIVE (Negative); Urine Protein NEGATIVE (Negative); Urine Specific Gravity 1.015 (1.005-1.030)
[2021-03-23 05:27] LABS: Urine Microscopic Reflex ORDER UMIC
[2021-03-23 05:53] LABS: Urine Bacteria >50 /HPF (<20); Urine RBC NONE SEEN /HPF (NONE SEEN)
[2021-03-23] MEDS: INSULIN -REGULAR HUMAN 50 UNIT/0.5 ML ML SQ SCH ×4 (07:30→20:44)
--- NOTE | 2021-03-23 07:37 | EKG ---
Test Date: 2021-03-22 Test Time: 18:42:14 Corn Chip Maker: JOSHUA MEASUREMENT RESULTS: Intervals: Rate: 70 MI: QRSD: 192 QT: 450 QTc: 486 [place]: P: MI: QRS: 86 T: 12 INTERPRETIVE STATEMENTS: Ventricular-paced rhythm Abnormal ECG Compared to ECG 11/06/2019 10:03:46 Sinus rhythm no longer present Short MI interval no longer present Left-axis deviation no longer present Left ventricular hypertrophy no longer present Early repolarization no longer present Myocardial infarct finding no longer present Electronically Signed On 03-23-21 07:35:51 CDT by Amadeo Jin
[2021-03-23] MEDS: FAMOTIDINE 20 MG TAB PO SCH (08:02)
[2021-03-23] MEDS: LEVOTHYROXINE SOD 0.125 MG TAB PO SCH (08:02)
[2021-03-23] MEDS: FUROSEMIDE 20 MG TABLET PO SCH (08:02)
[2021-03-23] MEDS: HEPARIN 5000 UNIT/ML 1 ML VIAL SQ SCH ×2 (08:03→18:09)
[2021-03-23] MEDS ORDERED: FUROSEMIDE 20 MG TABLET PO SCH ×2 (09:00→21:00)
[2021-03-23] MEDS ORDERED: HOME MED 1 EA UNK (Famotidine [Famotidine] 40 MG Tablet) PO SCH (09:00)
--- NOTE | 2021-03-23 10:42 | P.CNS ---
Date of Consult: 03/23/21 Reason for Consult: FREDO/ CKD Requesting Physician: pallavi chavez Primary Care Provider: [facility] Chief Complaint: syncope and fall History of Present Illness: Ms. Arceo is a 85 yo F with CHF, COPD, T2DM, afib w/ pacemaker, CKD, GERD, PAD here today for a syncopal episode. She was laying down and then sat up to go to the bathroom. The next thing she remembers is being on the floor. She says she felt otherwise normal throughout the day. Her son says he heard her fall and then she called for his help. She reports pain in her left knee and right hand. She follows with Dr. Resendiz for her CKD. Allergies morphine Allergy (Verified 03/23/21 00:20) Hives ticlopidine HCl [From Ticlid] Adverse Reaction (Verified 03/23/21 00:20) Hives/Rash Sulfa (Sulfonamid Allergy (Mild, Uncoded 01/24/19 21:31) Unknown Home medications list reviewed: Yes Home Medications: Fenofibrate [Tricor*] 145 mg PO BEDTIME 10/08/17 Aspirin 325 mg PO DAILY 02/09/18 Levothyroxine Sodium [Synthroid] 125 mcg PO DAILY 01/25/19 Albuterol Sulfate [Albuterol Sulfate 0.083% Neb Soln] 2.5 mg IH Q4H PRN 06/20/19 Sertraline [Zoloft*] 50 mg PO BEDTIME 06/20/19 Losartan Potassium [Cozaar*] 100 mg PO DAILY 07/18/19 Bimatoprost [Lumigan] 1 drop EACH EYE BEDTIME 11/06/19 Famotidine 1 tab PO DAILY 11/06/19 Insulin Detemir [Levemir Flextouch] 10 unit SQ DAILY 11/06/19 Furosemide [Lasix*] 20 mg PO SEECOM 03/23/21 Gabapentin 2 cap PO BID 03/23/21 Spironolactone [Aldactone*] 50 mg PO DAILY 03/23/21 carvediloL [Coreg*] 1 tab PO BID 03/23/21 - Past Medical/Surgical History Diabetic: Yes -: HTN -: Hyperlipidemia -: Diabetes mellitus type 2 -: COPD -: History of DVT/PE -: History of atrial fibrillation requiring pacemaker -: GERD -: Depression -: Hypothyroidism -: Arthritis -: History of esophageal stricture -: Chronic renal disease -: Cholecystectomy -: Appendectomy -: Hysterectomy -: PANCREATIC SX D/T MASS, no cancer noted -: cataract surgery -: "leg artery" aneurysm Psychosocial/ Personal History: The patient is a . She has 4 children. - Family History Brother Medical History: Seizures Mother Medical History: Heart disease Father Medical History: Hypertension, Stroke - Social History Smoking Status: Unknown if ever smoked Alcohol use: No CD- Drugs: No Caffeine use: No Place of Residence: Home Review of Systems 10-point ROS is otherwise unremarkable General: Weakness, Malaise Neurological: Weakness Physical Examination Temp Pulse Resp BP Pulse Ox 98.3 F 70 20 103/56 L 96 03/23/21 08:00 03/23/21 08:00 03/23/21 08:00 03/23/21 08:00 03/23/21 08:00 General: In no apparent distress, Oriented x3, Cooperative HEENT: Normocephalic Neck: Supple Respiratory: Clear to auscultation bilaterally Cardiovascular: No edema, Regular rate/rhythm Gastrointestinal: Soft and benign, Non-distended Musculoskeletal: No clubbing, No contractures Integumentary: No rashes, No cyanosis Neurological: Normal speech Laboratory Data (last 24 hrs) 03/22/21 18:50: PT 11.3, INR 0.98 03/22/21 18:50: WBC 7.10, Hgb 14.5, Hct 44.8, Plt Count 190 03/22/21 18:50: Sodium 142, Potassium 4.5, BUN 58 H, Creatinine 1.78 H, Glucose 102, Magnesium 2.6 H, Total Bilirubin 0.4, AST 30, ALT 21, Alkaline Phosphatase 39 L Imagings Data: CT - Head C Spine Cap Wo Con - 03/22/2021 7:04 pm TECHNIQUE: Computed axial tomography of the head and cervical spine was obtained. Coronal and sagittal reconstruction was performed Computed axial tomography of the chest, abdomen and pelvis was obtained. Contrast was not requested. All CT scans are performed using dose optimization technique as appropriate and may include automated exposure control or mA/KV adjustment according to patient size. CLINICAL HISTORY: Head and neck injury with chest and abdominal pain status post fall COMPARISON: CT chest 2020 CT 1000 FINDINGS: An intracranial bleed is not seen. The ventricles are normal in caliber. An extra-axial fluid collection is not noted. . Fluid within the sinuses/mastoids is not seen. A cervical fracture is not seen. No dislocation is noted. The evaluation of mediastinum, susan, vessels, solid organs and bowel are limited secondary to the lack of contrast administration. A mediastinal hematoma is not noted. A pleural effusion is not seen. A lung contusion is not present. The liver,spleen, pancreas, adrenals,kidneys and bladder do not demonstrate a traumatic injury. Hepatic cysts unchanged. Small ventral hernia. Small nonobstructing renal calculus. Aortobifemoral graft. IMPRESSION: 1. No acute intracranial abnormality is seen. 2. A cervical fracture is not visualized. If the patient continues have symptoms to suggest intracranial/spinal cord pathology MRI be recommended Conclusions/Impression: FREDO likely due to hypotension CKD III -No NSAIDs HTN complicated by hypotension and syncope -Hold anti-hypertensives at this time Diastolic CHF, chronic -Continue furosemide DM II with CKD -Continue Lantus -RISS Acute Cystitis? -Follow up culture
--- NOTE | 2021-03-23 15:26 | P.PN ---
Subjective Date of Service: 03/23/21 Primary Care Provider: [facility] Chief Complaint: syncope and fall Patient complaining of shortness of breath. Troponin trended flat. Patient noted to be orthostatic. Physical Examination - Vital Signs Temperature: 97.4 F Blood Pressure: 131/69 Pulse: 70 Respirations: 18 Pulse Ox (%): 96 - Physical Exam General: Alert, In no apparent distress, Oriented x3 HEENT: Mucous membr. moist/pink, Sclerae nonicteric Neck: Supple, JVD not distended Respiratory: Diminished, Expiratory wheezes (Mild scattered wheezes.) Cardiovascular: No edema, Regular rate/rhythm, Normal S1 S2 Capillary refill: <2 Seconds Gastrointestinal: Normal bowel sounds, Soft and benign, Non-distended, No tenderness Musculoskeletal: Swelling (Left knee) Integumentary: Erythema (Bruise left knee.) Neurological: Normal speech, Normal strength at 5/5 x4 extr, Cranial nerves 3-12 intact - Studies Laboratory Data (last 24 hrs) 03/22/21 18:50: PT 11.3, INR 0.98 03/22/21 18:50: WBC 7.10, Hgb 14.5, Hct 44.8, Plt Count 190 03/22/21 18:50: Sodium 142, Potassium 4.5, BUN 58 H, Creatinine 1.78 H, Glucose 102, Magnesium 2.6 H, Total Bilirubin 0.4, AST 30, ALT 21, Alkaline Phosphatase 39 L Assessment And Plan - Current Problems (Diagnosis) (1) Orthostatic hypotension Current Visit: Yes Status: Acute (2) Effusion, left knee Current Visit: Yes Status: Acute (3) Syncope and collapse Current Visit: Yes Status: Acute (4) Chronic atrial fibrillation Current Visit: No Status: Chronic (5) Essential (primary) hypertension Onset Date: 10/11/17 Current Visit: No Status: Chronic (6) Type 2 diabetes mellitus without complications Onset Date: 10/11/17 Current Visit: No Status: Chronic Qualifiers: (7) UTI (urinary tract infection) Current Visit: Yes Status: Acute - Plan The patient noted to be orthostatic. Hold antihypertensives. Orthostatic precautions. Cardiology input appreciated. PT evaluation. Scheduled bronchodilators for COPD. Troponin trended flat and likely secondary to demand ischemia. No ACS. Last echo was 3 years ago and showed normal EF. Repeat echocardiogram. Rocephin for UTI.
[2021-03-23] MEDS: CEFTRIAXONE/SWI 1gm 1 GM/10 ML SYR IVP SCH (18:08)
[2021-03-23] MEDS: FENOFIBRATE 160 MG TAB PO SCH (20:42)
[2021-03-23] MEDS: BIMATOPROST OPHTH DROPS/2.5 ML BTL OPTH SCH (20:44)
[2021-03-24] MEDS: HEPARIN 5000 UNIT/ML 1 ML VIAL SQ SCH ×3 (00:38→17:34)
[2021-03-24 05:36] LABS: Absolute Lymphocytes (CBC) 1.4 K/uL (0.7-4.9); Basophils % 1.1 % (0-1.3); Hematocrit 37.1 % (36.0-45.0); Lymphocytes % 24.5 % (15.3-44.8); MPV 10.7 fL (7.6-11.3); RBC Red Blood Cell Count 3.89 M/uL (3.86-4.86)
[2021-03-24 05:57] LABS: Potassium 4.2 mmol/L (3.5-5.1)
[2021-03-24] MEDS: INSULIN -REGULAR HUMAN 50 UNIT/0.5 ML ML SQ SCH ×4 (07:30→20:43)
[2021-03-24] MEDS: GABAPENTIN 300 MG CAP PO SCH ×2 (08:46→20:42)
[2021-03-24] MEDS: FUROSEMIDE 20 MG TABLET PO SCH (08:46)
[2021-03-24] MEDS: CEFTRIAXONE/SWI 1gm 1 GM/10 ML SYR IVP SCH (08:46)
[2021-03-24] MEDS: LEVOTHYROXINE SOD 0.125 MG TAB PO SCH (08:47)
[2021-03-24] MEDS: INSULIN GLARGINE 100 UNITS/ML SQ SCH (08:49)
[2021-03-24] MEDS ORDERED: HOME MED 1 EA UNK (Insulin Detemir [Levemir Flextouch] 100 UNIT/ML Insuln.Pen) SQ SCH (09:00)
--- NOTE | 2021-03-24 11:41 | CON ---
Date of Consultation: 03/23/2021 Reason For Consultation: Syncope. History Of Present Illness: Ms. Arceo is an 85-year-old woman, very well known to me from previous of fice visits and admission. She has a past medical history of congestive heart failure, upper extremi ty deep vein thrombosis, depression, COPD, chronic renal failure, atrial fibrillation, dyslipidemia, coronary artery disease, depression. She also has a history of hypertension, diabetes, gastroesophag eal reflux disease, and sleep apnea, takes large amount of medication. She came in basically with an episode of fall after she woke up and stood on the side of the bed. She denied herself any chest pa in, nausea, vomiting, diaphoresis, PND, orthopnea, pedal edema, or palpitation. She denied any fever or chills. She first got to the emergency room, her blood pressure was 116/52. Past Medical History: As stated above. Allergies: TYLENOL, STATIN, MORPHINE, TICLID, AND SULFA. Medications: At home include albuterol, levothyroxine, gabapentin, fenofibrate, aspirin, Pepcid, los loni with hydrochlorothiazide, carvedilol, spironolactone, and Lasix. Social History: Negative. Family History: Negative. Review of Systems: Noncontributory. Physical Examination: Vital Signs: Stable. She was afebrile. HEENT: Negative. Neck: Supple. No bruit. Chest: Clear. Cardiac: Revealed a regular rhythm and rate with an S4 gallops. No murmur. No rubs. Abdomen: Benign. Extremities: Revealed no clubbing, cyanosis, or edema. Diagnostic Data: When she came in, feels a paced rhythm at 100%, creatinine of 1.78. Her hemoglobin and white count were normal. Her BNP was 2651 with a troponin of 0.15. She had UTI. EKG showed pa hoa rhythm. Chest x-ray was negative. Impression And Plan: Syncope secondary to orthostatic hypotension. The patient takes hydrochlorothi azide, Lasix and spironolactone. I think we should hold at least for Hyzaar for now, her pressure is very well controlled. I think we need to hydrate her gently. Her creatinine is slightly elevated i ndicating dehydration. I am not concerned about her troponin elevation or her BNP elevation, I think they are secondary to renal insufficiency, chronic failure and chronic CAD. We are not dealing with acute coronary artery syndrome. The patient has a pacemaker that is functioning appropriately. Her other problems include hypertension, well controlled; diabetes, well controlled; dyslipidemia, well controlled; depression, well controlled. She also has a history of COPD and hypothyroidism. I am co mfortable with hydrating Ms. Arceo. Watching her creatinine. Hold her losartan with hydrochlorothiaz teresa. If she does better by tomorrow, I have no problem with her going home. She does not really nee d any extensive cardiac workup at this point. She has had workup in my office including echos, carot id stress test in the recent past. She does have known ejection fraction to be normal. She has mild pulmonary hypertension. She has aortic sclerosis, but no stenosis or regurgitation. Her last zahraa terization in 2019 showed patent LAD stents, patent circumflex stent. She was treated medically then . I will discuss the case further with Dr. Rodrigues. NADIYA/ESTEFANIA Voice ID: [id number] Report ID: [id number]
--- NOTE | 2021-03-24 17:23 | P.PN ---
Subjective Date of Service: 03/24/21 Primary Care Provider: [facility] Chief Complaint: syncope and fall Patient states she feels better today. She reported mild chest pain episode earlier this morning. Troponin troponin recheck slightly increased to 0.3 Echocardiogram showed paced rhythm. technician automated equipment noted intermittent atrial fibrillation with rate up to 130. Patient states her left knee pain is much better and the swelling has decreased. Physical Examination - Vital Signs Temperature: 98.0 F Blood Pressure: 146/62 Pulse: 81 Respirations: 19 Pulse Ox (%): 96 - Physical Exam General: Alert, In no apparent distress, Oriented x3 HEENT: Mucous membr. moist/pink Neck: Supple, JVD not distended Respiratory: Clear to auscultation bilaterally, Normal air movement Cardiovascular: Normal pulses, Regular rate/rhythm, Normal S1 S2 Gastrointestinal: Normal bowel sounds, Soft and benign, Non-distended, No tenderness Musculoskeletal: Other (Left knee swelling significantly improved but looks more bruised.) Integumentary: Other (Bruise on the anterior aspect of left knee.) Neurological: Normal speech, Normal strength at 5/5 x4 extr Assessment And Plan - Current Problems (Diagnosis) (1) Orthostatic hypotension Current Visit: Yes Status: Acute (2) Effusion, left knee Current Visit: Yes Status: Acute (3) Syncope and collapse Current Visit: Yes Status: Acute (4) Chronic atrial fibrillation Current Visit: No Status: Chronic (5) Essential (primary) hypertension Onset Date: 10/11/17 Current Visit: No Status: Chronic (6) Type 2 diabetes mellitus without complications Onset Date: 10/11/17 Current Visit: No Status: Chronic Qualifiers: (7) UTI (urinary tract infection) Current Visit: Yes Status: Acute - Plan The patient noted to be orthostatic. Slight troponin elevation discussed with Dr. Jin. He recommend beta-heidi. Her carvedilol was discontinued due to orthostatic hypotension. Will regimen per cardiology recommendation. Requested her pacemaker to be interrogated given episodes of rapid atrial fibrillation. Orthostatic precautions. Continue PT Scheduled bronchodilators for COPD. Last echo was 3 years ago and showed normal EF. Repeat echocardiogram. Urine culture shows mixed growth. Continue Rocephin for UTI. Patient to complete 3 days of treatment.
[2021-03-24] MEDS: FENOFIBRATE 160 MG TAB PO SCH (20:41)
[2021-03-24] MEDS: carvediloL 6.25 MG TAB PO SCH (20:42)
[2021-03-24] MEDS: SERTRALINE HCL 50 MG TAB PO SCH (20:42)
[2021-03-24] MEDS: BIMATOPROST OPHTH DROPS/2.5 ML BTL OPTH SCH (20:42)
--- NOTE | 2021-03-24 21:25 | P.PN ---
Date of Service: 03/24/21 Vital Signs Temp Pulse Resp BP Pulse Ox 97.1 F 70 16 123/60 98 03/24/21 20:00 03/24/21 20:42 03/24/21 20:00 03/24/21 20:42 03/24/21 20:00 Medications Acetaminophen (Acetaminophen 500 Mg Tab) 500 mg PO Q4HP PRN PRN Reason: Pain scale 2-4 (Mild) Albuterol Sulfate (Albuterol 2.5 Mg/3 Ml Neb Candace) 2.5 mg NEB Q6HP PRN PRN Reason: SHORTNESS OF BREATH Last Admin: 03/23/21 20:10 Dose: 2.5 mg Documented by: Carvedilol (Carvedilol 6.25 Mg Tab) 6.25 mg PO BID [facility] Last Admin: 03/24/21 20:42 Dose: 6.25 mg Documented by: Famotidine (Famotidine 20 Mg Tab) 20 mg PO Q48H [facility] Last Admin: 03/23/21 08:02 Dose: 20 mg Documented by: Fenofibrate (Fenofibrate 160 Mg Tab) 160 mg PO BEDTIME [facility] Last Admin: 03/24/21 20:41 Dose: 160 mg Documented by: Fentanyl Citrate (Fentanyl Citr 100 Mcg/2 Ml) 25 mcg IV Q4H PRN PRN Reason: Pain scale 8-10 (Severe) Furosemide (Furosemide 20 Mg Tablet) 20 mg PO DAILY [facility] Last Admin: 03/24/21 08:46 Dose: 20 mg Documented by: Gabapentin (Gabapentin 300 Mg Cap) 600 mg PO BID [facility] Last Admin: 03/24/21 20:42 Dose: 600 mg Documented by: Heparin Sodium (Porcine) (Heparin 5000 Unit/Ml 1 Ml Vial) 5,000 unit SQ Q8HR [facility] Last Admin: 03/24/21 17:34 Dose: 5,000 unit Documented by: Home Med (Bimatoprost Ophth Drops/2.5 Ml Btl) 1 ea OPTH BEDTIME [facility] Last Admin: 03/24/21 20:42 Dose: Not Given Documented by: Hydralazine HCl (Hydralazine Hcl 20 Mg/Ml Vial) 10 mg IV Q6HP PRN PRN Reason: Titrate to SBP (MUST DEFINE) Ceftriaxone Sodium/Sodium Chloride (Rocephin 1 Gm/10 Ml Swi Ivp) 1 gm in 10 mls @ 600 mls/hr IVP DAILY [facility]; Protocol Last Admin: 03/24/21 08:46 Dose: 10 mls Documented by: Insulin Glargine (Insulin Glargine 100 Units/Ml) 10 units SQ DAILY [facility] Last Admin: 03/24/21 08:49 Dose: 10 units Documented by: Insulin Human Regular (Insulin -Regular Human 50 Unit/0.5 Ml Ml) 0 unit SQ ACHS [facility]; Protocol Last Admin: 03/24/21 20:43 Dose: Not Given Documented by: Ipratropium [place] (Ipratropium Brom 0.5mg/2.5ml) 0.5 mg NEB [id number] PRN PRN Reason: SHORTNESS OF BREATH Last Admin: 03/23/21 20:10 Dose: 0.5 mg Documented by: Levothyroxine Sodium (Levothyroxine Sod 0.125 Mg Tab) 0.125 mg PO ACB [facility] Last Admin: 03/24/21 08:47 Dose: 0.125 mg Documented by: Lidocaine (Lidocaine 4% Patch) 2 patch TOP DAILY [facility] Ondansetron HCl (Ondansetron 4 Mg/2 Ml Vial) 4 mg IV Q6HP PRN PRN Reason: NAUSEA / VOMITING Sertraline HCl (Sertraline Hcl 50 Mg Tab) 50 mg PO BEDTIME [facility] Last Admin: 03/24/21 20:42 Dose: 50 mg Documented by: Sodium Chloride (Flush Normal Saline 10 Ml) 10 ml IV BID [facility] Last Admin: 03/24/21 20:42 Dose: 10 ml Documented by: Assessment/ Plan: Nephrology Feeling better today. CPS stable without CP or SOB No acute events overnight General: In no apparent distress, Oriented x3, Cooperative HEENT: Normocephalic Neck: Supple Respiratory: Clear to auscultation bilaterally Cardiovascular: No edema, Regular rate/rhythm Gastrointestinal: Soft and benign, Non-distended Musculoskeletal: No clubbing, No contractures Integumentary: No rashes, No cyanosis Neurological: Normal speech Laboratory Data (last 24 hrs) 03/22/21 18:50: PT 11.3, INR 0.98 03/22/21 18:50: WBC 7.10, Hgb 14.5, Hct 44.8, Plt Count 190 03/22/21 18:50: Sodium 142, Potassium 4.5, BUN 58 H, Creatinine 1.78 H, Glucose 102, Magnesium 2.6 H, Total Bilirubin 0.4, AST 30, ALT 21, Alkaline Phosphatase 39 L Imagings Data: CT - Head C Spine Cap Sacha Berumen - 03/22/2021 7:04 pm TECHNIQUE: Computed axial tomography of the head and cervical spine was obtained. Coronal and sagittal reconstruction was performed Computed axial tomography of the chest, abdomen and pelvis was obtained. Contrast was not requested. All CT scans are performed using dose optimization technique as appropriate and may include automated exposure control or mA/KV adjustment according to patient size. CLINICAL HISTORY: Head and neck injury with chest and abdominal pain status post fall COMPARISON: CT chest 2019 CT 1000 FINDINGS: An intracranial bleed is not seen. The ventricles are normal in caliber. An extra-axial fluid collection is not noted. . Fluid within the sinuses/mastoids is not seen. A cervical fracture is not seen. No dislocation is noted. The evaluation of mediastinum, susan, vessels, solid organs and bowel are limited secondary to the lack of contrast administration. A mediastinal hematoma is not noted. A pleural effusion is not seen. A lung contusion is not present. The liver,spleen, pancreas, adrenals,kidneys and bladder do not demonstrate a tr aumatic injury. Hepatic cysts unchanged. Small ventral hernia. Small nonobstructing renal calculus. Aortobifemoral graft. IMPRESSION: 1. No acute intracranial abnormality is seen. 2. A cervical fracture is not visualized. If the patient continues have symptoms to suggest intracranial/spinal cord pathology MRI be recommended Conclusions/Impression: FREDO likely due to hypotension CKD III -No NSAIDs HTN complicated by hypotension and syncope -Hold anti-hypertensives at this time Diastolic CHF, chronic -Continue furosemide DM II with CKD -Continue Lantus -RISS Acute Cystitis -Continue Rocephin
[2021-03-25] MEDS: HEPARIN 5000 UNIT/ML 1 ML VIAL SQ SCH ×2 (01:55→09:04)
[2021-03-25] MEDS: INSULIN -REGULAR HUMAN 50 UNIT/0.5 ML ML SQ SCH ×2 (07:30→11:30)
--- NOTE | 2021-03-25 07:41 | EKG ---
Test Date: 2021-03-24 Test Time: 11:10:40 Apple Turner: GIOVANNA MEASUREMENT RESULTS: Intervals: Rate: 73 [place]: QRSD: 130 QT: 394 QTc: 434 [place]: P: [place]: QRS: -60 T: 139 INTERPRETIVE STATEMENTS: Demand pacemaker, interpretation is based on intrinsic rhythm Wide QRS rhythm with fusion complexes Left axis deviation Left ventricular hypertrophy with QRS widening and repolarization abnormality Inferior infarct, age undetermined Anterolateral infarct, age undetermined Abnormal ECG Compared to ECG 03/22/2021 18:42:14 Uncertain supraventricular rhythm now present Fusion complex(es) now present Left-axis deviation now present Left ventricular hypertrophy now present Early repolarization now present Myocardial infarct finding now present Electronically Signed On 03-25-21 07:39:27 CDT by Amadeo Jin
[2021-03-25] MEDS: IPRATROPIUM BROM 0.5MG/2.5ML NEB PRN ×2 (08:15→14:20)
[2021-03-25] MEDS: ALBUTEROL 2.5 MG/3 ML NEB SOL NEB PRN ×2 (08:15→14:20)
[2021-03-25] MEDS ORDERED: LIDOCAINE 4% PATCH TOP SCH (09:00)
[2021-03-25] MEDS: LEVOTHYROXINE SOD 0.125 MG TAB PO SCH (09:01)
[2021-03-25] MEDS: CEFTRIAXONE/SWI 1gm 1 GM/10 ML SYR IVP SCH (09:03)
[2021-03-25] MEDS: GABAPENTIN 300 MG CAP PO SCH (09:03)
[2021-03-25] MEDS: FAMOTIDINE 20 MG TAB PO SCH (09:03)
[2021-03-25] MEDS: FUROSEMIDE 20 MG TABLET PO SCH (09:04)
[2021-03-25] MEDS: carvediloL 6.25 MG TAB PO SCH (09:04)
[2021-03-25] MEDS: INSULIN GLARGINE 100 UNITS/ML SQ SCH (09:05)
[2021-03-25 09:16] VITALS: BP 138/66
[2021-03-25 10:07] VITALS: TEMP 96.9
--- NOTE | 2021-03-25 12:15 | P.DS ---
Admission Date: 03/22/21 Discharge Date: 03/25/21 Primary Care Provider: River Disposition: TRANSFER TO [facility] Discharge Condition: FAIR Reason for Admission: syncope and fall - Problems (1) Orthostatic hypotension Current Visit: Yes Status: Acute (2) Effusion, left knee Current Visit: Yes Status: Acute (3) Syncope and collapse Current Visit: Yes Status: Acute (4) Chronic atrial fibrillation Current Visit: No Status: Chronic (5) Essential (primary) hypertension Onset Date: 10/11/17 Current Visit: No Status: Chronic (6) Type 2 diabetes mellitus without complications Onset Date: 10/11/17 Current Visit: No Status: Chronic Qualifiers: (7) UTI (urinary tract infection) Current Visit: Yes Status: Acute Brief History of Present Illness: 85-year-old woman with a history of CHF, COPD, atrial fibrillation with a pacemaker, peripheral arterial disease was brought to the emergency department due to a syncopal episode at home. Patient is reported to have fallen after getting up from the lying position in order to use the bathroom. She experienced pain in her left knee. Patient noted to be orthostatic. Left knee was swollen and tender. X-ray of the knee showed no fracture. It did report soft tissue swelling. Troponin mildly elevated in the ED. Patient was hospitalized for further management. Hospital Course: The patient noted to be orthostatic. Troponin elevated was mild. Patient seen by cardiology-Dr. Jin. She had a mild chest pain episode during the hospital stay. Her troponin was slightly to 0.3. Slight troponin elevation discussed with Dr. Jin. He recommend beta-heidi, no surgical intervention. Her carvedilol was initially discontinued due to orthostatic hypotension. It was resumed per cardiology recommendation. Her blood pressure was stable with the Coreg. Her pacemaker was interrogated because she had episodes of rapid atrial fibrillation. No significant abnormal rhythm because her syncopal episodes. Functioning pacemaker per report. Patient taught orthostatic precautions. She was seen by PT. Skilled rehab is recommended. She was put on scheduled bronchodilators for COPD. Urine culture grew E. coli. Patient treated with Rocephin Her left knee swelling significantly improved. No fracture by imaging. Patient has started to skilled rehab and she is stable for transfer. Vital Signs/Physical Exam: Temp Pulse Resp BP Pulse Ox 96.9 F 68 20 138/66 96 03/25/21 08:00 03/25/21 09:04 03/25/21 08:00 03/25/21 09:04 03/25/21 08:00 General: Alert, In no apparent distress, Oriented x3 HEENT: Mucous membr. moist/pink Neck: Supple, JVD not distended Respiratory: Clear to auscultation bilaterally, Normal air movement Cardiovascular: No edema, Regular rate/rhythm, Normal S1 S2 Gastrointestinal: Soft and benign, Non-distended, No tenderness Musculoskeletal: Swelling (Left knee improved) Integumentary: Other (Bruise on the left knee.) Neurological: Other (No focal motor deficit.) Laboratory Data at Discharge: WBC 5.60 K/uL (4.3-10.9) 03/24/21 05:09 Hgb 12.1 g/dL (12.0-15.0) 03/24/21 05:09 Hct 37.1 % (36.0-45.0) 03/24/21 05:09 Plt Count 164 K/uL (152-406) D 03/24/21 05:09 PT 11.3 SECONDS (9.5-12.5) 03/22/21 18:50 INR 0.98 03/22/21 18:50 Sodium 140 mmol/L (136-145) 03/24/21 05:09 Potassium 4.2 mmol/L (3.5-5.1) 03/24/21 05:09 BUN 50 mg/dL (7-18) H 03/24/21 05:09 Creatinine 1.61 mg/dL (0.55-1.3) H 03/24/21 05:09 Glucose 102 mg/dL (74-106) 03/24/21 05:09 Phosphorus 3.5 mg/dL (2.5-4.9) 03/23/21 02:58 Magnesium 2.4 mg/dL (1.8-2.4) 03/23/21 02:58 Total Bilirubin 0.5 mg/dL (0.2-1.0) 03/23/21 02:58 AST 29 U/L (15-37) 03/23/21 02:58 ALT 19 U/L (12-78) 03/23/21 02:58 Alkaline Phosphatase 29 U/L (45-117) L 03/23/21 02:58 Troponin I 0.32 ng/mL (0.0-0.045) H 03/24/21 11:07 Triglycerides 111 mg/dL (<150) 03/23/21 02:58 Cholesterol 135 mg/dL (<200) 03/23/21 02:58 HDL Cholesterol 36 mg/dL (40-60) L 03/23/21 02:58 Cholesterol/HDL Ratio 3.75 03/23/21 02:58 Home Medications: Fenofibrate [Tricor*] 145 mg PO BEDTIME 10/08/17 Levothyroxine Sodium [Synthroid] 125 mcg PO DAILY 01/25/19 Sertraline [Zoloft*] 50 mg PO BEDTIME 06/20/19 Bimatoprost [Lumigan] 1 drop EACH EYE BEDTIME 11/06/19 Famotidine 1 tab PO DAILY 11/06/19 Insulin Detemir [Levemir Flextouch] 10 unit SQ DAILY 11/06/19 Furosemide [Lasix*] 20 mg PO SEECOM 03/23/21 Gabapentin 2 cap PO BID 03/23/21 carvediloL [Coreg*] 1 tab PO BID 03/23/21 Lidocaine 4% Patch [Lidoderm 5% Patch*] 2 patch TOP DAILY patch 03/24/21 Arformoterol Tartrate [Brovana] 15 mcg IH BID #60 vial.neb 03/25/21 Ipratropium/Albuterol Sulfate [Iprat-Albut 0.5-3(2.5) mg/3 ml] 3 ml IH Q6H PRN #120 ampul.neb 03/25/21 New Medications: Arformoterol Tartrate [Brovana] 15 mcg IH BID #60 vial.neb Ipratropium/Albuterol Sulfate [Iprat-Albut 0.5-3(2.5) mg/3 ml] 3 ml IH Q6H PRN #120 ampul.neb PRN Reason: Shortness Of Breath Followup: NONE,NONE [Primary Care Provider] - Time spent managing pt's care (in minutes): 36
[2021-03-25 15:41] VITALS: O2SAT 95
--- NOTE | 2021-03-25 20:10 | P.PN ---
Date of Service: 03/25/21 Vital Signs Temp Pulse Resp BP Pulse Ox 96.9 F 68 20 138/66 96 03/25/21 08:00 03/25/21 09:04 03/25/21 08:00 03/25/21 09:04 03/25/21 08:00 Assessment/ Plan: Nephrology Feeling better today. CPS stable without CP or SOB No acute events overnight General: In no apparent distress, Oriented x3, Cooperative HEENT: Normocephalic Neck: Supple Respiratory: Clear to auscultation bilaterally Cardiovascular: No edema, Regular rate/rhythm Gastrointestinal: Soft and benign, Non-distended Musculoskeletal: No clubbing, No contractures Integumentary: No rashes, No cyanosis Neurological: Normal speech Laboratory Data (last 24 hrs) 03/22/21 18:50: PT 11.3, INR 0.98 03/22/21 18:50: WBC 7.10, Hgb 14.5, Hct 44.8, Plt Count 190 03/22/21 18:50: Sodium 142, Potassium 4.5, BUN 58 H, Creatinine 1.78 H, Glucose 102, Magnesium 2.6 H, Total Bilirubin 0.4, AST 30, ALT 21, Alkaline Phosphatase 39 L Imagings Data: CT - Head C Spine Cap Con - 03/22/2021 7:04 pm TECHNIQUE: Computed axial tomography of the head and cervical spine was obtained. Coronal and sagittal reconstruction was performed Computed axial tomography of the chest, abdomen and pelvis was obtained. Contrast was not requested. All CT scans are performed using dose optimization technique as appropriate and may include automated exposure control or mA/KV adjustment according to patient size. CLINICAL HISTORY: Head and neck injury with chest and abdominal pain status post fall COMPARISON: CT chest 2019 CT 1000 FINDINGS: An intracranial bleed is not seen. The ventricles are normal in caliber. An extra-axial fluid collection is not noted. . Fluid within the sinuses/mastoids is not seen. A cervical fracture is not seen. No dislocation is noted. The evaluation of mediastinum, susan, vessels, solid organs and bowel are limited secondary to the lack of contrast administration. A mediastinal hematoma is not noted. A pleural effusion is not seen. A lung contusion is not present. The liver,spleen, pancreas, adrenals,kidneys and bladder do not demonstrate a traumatic injury. Hepatic cysts unchanged. Small ventral hernia. Small nonobstructing renal calculus. Aortobifemoral graft. IMPRESSION: 1. No acute intracranial abnormality is seen. 2. A cervical fracture is not visualized. If the patient continues have symptoms to suggest intracranial/spinal cord pathology MRI be recommended Conclusions/Impression: FREDO likely due to hypotension CKD III -No NSAIDs HTN complicated by hypotension and syncope -Hold anti-hypertensives at this time Diastolic CHF, chronic -Continue furosemide DM II with CKD -Continue Lantus -RISS Acute Cystitis -Continue Rocephin
--- NOTE | 2021-03-26 09:48 | EKG ---
Test Date: 2021-03-24 Test Time: 11:15:46 Sales Representative [employer] Rope: GIOVANNA MEASUREMENT RESULTS: Intervals: Rate: 70 [place]: QRSD: 188 QT: 452 QTc: 488 [place]: P: [place]: QRS: 131 T: 20 INTERPRETIVE STATEMENTS: Electronic ventricular pacemaker Compared to ECG 03/24/2021 11:11:06 Uncertain supraventricular rhythm no longer present Fusion complex(es) no longer present Ventricular premature complex(es) no longer present Left-axis deviation no longer present Left ventricular hypertrophy no longer present Early repolarization no longer present Myocardial infarct finding no longer present Electronically Signed On 03-26-21 09:44:05 CDT by Amadeo Jin
--- NOTE | 2021-03-26 09:48 | EKG ---
Test Date: 2021-03-24 Test Time: 11:11:06 Bar Staff: GIOVANNA MEASUREMENT RESULTS: Intervals: Rate: 79 [place]: QRSD: 122 QT: 404 QTc: 463 [place]: P: [place]: QRS: -60 T: 138 INTERPRETIVE STATEMENTS: Wide QRS rhythm with occasional and consecutive premature ventricular complexes and fusion complexes Left axis deviation Left ventricular hypertrophy with QRS widening and repolarization abnormality Inferior infarct, age undetermined Anterolateral infarct, age undetermined Abnormal ECG Compared to ECG 03/24/2021 11:10:40 Ventricular premature complex(es) now present Ventricular-paced complex(es) or rhythm no longer present Myocardial infarct finding still present Electronically Signed On 03-26-21 09:44:07 CDT by Amadeo Jin
--- NOTE | 2021-03-28 08:22 | ECHO ---
HEIGHT: 5 ft 6 in WEIGHT: 198 lb 5 oz DATE OF STUDY: 03/25/[address]: pallavi chavez 2-DIMENSIONAL: YES M.MODE: YES DOPPLER: YES COLOR FLOW: YES TDS: NO PORTABLE: NO DEFINITY: NO BUBBLE STUDY: NO DIAGNOSIS: RAPID ATRIAL FIBRILLATION CARDIAC HISTORY: CATHERIZATION: YES SURGERY: NO PROSTHETIC VALVE: NO PACEMAKER: YES MEASUREMENTS (cm) DIASTOLIC (NORMALS) SYSTOLIC (NORMALS) IVSd 1.3 (0.6-1.2) LA Diam 2.8 (1.9-4.0) LVEF 67% LVIDd 3.5 (3.5-5.7) LVIDs 2.2 (2.0-3.5) %FS 36% LVPWd 1.4 (0.6-1.2) Ao Diam 2.7 (2.0-3.7) 2 DIMENSIONAL ASSESSMENT: RIGHT ATRIUM: NORMAL LEFT ATRIUM: NORMAL RIGHT VENTRICLE: NORMAL LEFT VENTRICLE: NORMAL TRICUSPID VALVE: NORMAL MITRAL VALVE: NORMAL PULMONIC VALVE: NORMAL AORTIC VALVE: NORMAL PERICARDIAL EFFUSION: NONE AORTIC ROOT: NORMAL LEFT VENTRICULAR WALL MOTION: NORMAL. DOPPLER/COLOR FLOW: MILD TRICUSPID REGURGITATION. COMMENTS: NORMAL LEFT VENTRICULAR SIZE AND FUNCTION. PACEMAKER CATHETER IN RIGHT VENTRICLE. NO WALL MOTION ABNORMALITY. NO EFFUSION. TECHNOLOGIST: KENNEDI AGARWAL
== END 2021-03-25 15:56 | DRG 690 ==
LOC: ER 18:10 → ERHOLD 21:14 → 2ND 23:26
PROVIDERS: ADMIT Internal Medicine; ATTEND Internal Medicine
DX: N39.0 Urinary tract infection, site not specified (principal); I13.0 Hypertensive heart and chronic kidney disease with heart failure and stage 1 through stage 4 chronic kidney disease, or unspecified chronic kidney disease; I50.32 Chronic diastolic (congestive) heart failure; N17.9 Acute kidney failure, unspecified; B96.20 Unspecified Escherichia coli [E. coli] as the cause of diseases classified elsewhere; M25.462 Effusion, left knee; I48.91 Unspecified atrial fibrillation; I95.1 Orthostatic hypotension; J44.9 Chronic obstructive pulmonary disease, unspecified; E86.0 Dehydration; E03.9 Hypothyroidism, unspecified; I25.10 Atherosclerotic heart disease of native coronary artery without angina pectoris; I27.20 Pulmonary hypertension, unspecified; E11.22 Type 2 diabetes mellitus with diabetic chronic kidney disease; N18.30 Chronic kidney disease, stage 3 unspecified; F41.8 Other specified anxiety disorders; I73.9 Peripheral vascular disease, unspecified; Z95.0 Presence of cardiac pacemaker; Z86.718 Personal history of other venous thrombosis and embolism; Z86.711 Personal history of pulmonary embolism; Z88.2 Allergy status to sulfonamides; Z20.822 Contact with and (suspected) exposure to COVID-19
CPT/HCPCS: 36415; 70450; 71250; 72125; 80048; 80053; 80061; 80076; 81003; 81015; 82947; 83735; 83880; 84100; 84439; 84443; 84484; 85025; 85610; 87077; 87086; 87088; 87186; 93005; 93306; 94640; 94760; 96372; 96374; 97112; 97161; 97530; 99285; J0696; J1644; J1650; J1815; J3010; U0003

== ENCOUNTER 2021-03-31 13:01 | Emergency (ER) | payer OTHER, MEDICARE ==
--- OUTSIDE RECORDS SUMMARY | 2021-03-31 13:07 | XMS REPORT | Continuity of Care Document ---
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, occlusion, Me dical left left Center COPD COPD Disease Active [facility] (chronic (chronic [facility] - obstructiv obstructiv Me dical e e Center pulmonary pulmonary disease) disease) GERD GERD Disease Active [facility]3] (gastroeso (gastroeso [facility] disease) disease) Respirator Respirator Disease Active C [facility] y y [facility] - insufficie insufficie Me dical ncy ncy Center Pacemaker Pacemaker Disease Active [facility] Allergies, Adverse Reactions, Alerts Allergy Allergy Status Severity Reaction(s) Onset Inactive Treating Comm ents Source Name Type Date Date Clinician Atenolol Propensi [facility] - adverse 00:00: Medical reaction 00 [facility] Morphine Propensi Active [facility] to [facility] of the [facility] - adverse 00:00: face Medical reaction 00 [facility] Simvasta Propensi Active [facility] to 6 [facility] - adverse 00:00: Medical reaction 00 [facility] Sulfa Propensi Active [facility] (Sulfona ty to 03-11 [facility] - mide adverse 00:00: Medical Antibiot reaction 00 Center ics) s Ticlopid Propensi Active [facility] to 604 [facility] - adverse 00:00: Medical reaction 00 [facility] Social History Social Habit Start Date Stop Date Quantity Comments Source History of tobacco Smoker [facility] - use [facility] Sex Assigned At [facility] Cigarettes smoked 2018-06-19 2018-06-19 [facility] - current (pack per 00:00:00 00:00:00 Medical Center day) - Reported Cigarette 2018-06-19 2018-06-19 [facility] - pack-years 00:00:00 00:00:00 [facility] Tobacco use and 2018-06-19 2018-06-19 Never [...] 4-17 daily. [facility] - MG tablet 00:00: [facility] 00 Center Procedures This patient has no known procedures. Plan of Care Planned Activity Planned Date Details Comments Source Future Scheduled 2021-06-[address] [facility] - Test 00:00:00 (Season Ended) [code = [facility] INFLUENZA VACCINE (Season Ended)] Future Scheduled 2020-10-[address] [facility] - Test 00:00:00 (12+) [code = Medical Center DEPRESSION SCREENING (12+)] Future Scheduled 2019-12-[address] [facility] k[facility] - Test 00:00:00 measurement [facility] (procedure) [code = 08116330] Future Scheduled 2000-11-[address] [facility] - Test 00:00:00 WELLNESS (YEAR 2 or Medical Center FIRST YEAR if no IPPE) [code = MEDICARE ANNUAL WELLNESS (YEAR 2 or FIRST YEAR if no IPPE)] Future Scheduled 1999 PNEUMOCOCCAL 65+ YRS [facility] - Test 00:00:00 (1 of 1 - Medical Center [id number] PCV13) [code = PNEUMOCOCCAL 65+ YRS (1 of 1 - [id number] PCV13)] Future Scheduled 1984 SHINGLES VACCINES (1 [...] 00:00:00 examination Medical Center (regime/therapy) [code = 994488082] Future Scheduled 1944 Urine screening for [facility] - Test 00:00:00 protein (procedure) Medical Center [code = 396534307] Results Test Description Test Time Test Comments Results Result Comments Source POCT-GLUCOSE METER 2019-06-19 07:53:00 Test Item Value Reference Range Interpretation Comme nts POC-GLUCOSE METER (BEAKER) (test 131 mg/dL 70-110 H TESTED AT [facility] [address] [facility] code = 1538) [facility] 7703 0 BASIC METABOLIC [id number] 06:08:00 Test Item Value Reference Range Interpretation [...] PATIEN TS. CBC W/PLT COUNT & AUTO [id number] 05:33:00 Test Item Value Reference Range Interpretation [...] PERCENT (BEAKER) (test code = 2801) POCT-GLUCOSE [id number] 02:04:00 Test Item Value Reference Range Interpretation Comments POC-GLUCOSE METER 143 mg/dL 70-110 H TESTED AT [facility] [address] (BEAKER) (test code = [place] 1538) [address] POCT-GLUCOSE [id number] 17:20:00 Test Item Value Reference Range Interpretation Comments POC-GLUCOSE METER 148 mg/dL 70-110 H TESTED AT [place] [address] (BEAKER) (test code = [place]IA [place] [facility] 1538) [address] POCT-GLUCOSE [id number] 13:03:00 Test Item Value Reference Range Interpretation Comments POC-GLUCOSE METER 179 mg/dL 70-110 H TESTED AT [place] [address] (BEAKER) (test code = [facility] 1538) [address] POCT-GLUCOSE [id number] 08:04:00 Test Item Value Reference Range Interpretation Comments POC-GLUCOSE METER 82 mg/dL 70-110 TESTED AT [place] [address] (BEAKER) (test code = [facility] [place] [facility] [address] 1538) [id number] 06:10:00 Test Item Value Reference Range Interpretation Comments MAGNESIUM (BEAKER) (test code = 1.9 mg/dL 1.6-2.6 627) BASIC METABOLIC [id number] 06:10:00 Test Item Value Reference Range Interpretation [...] PATIEN TS. CBC W/PLT COUNT & AUTO [id number] 05:25:00 Test Item Value Reference Range Interpretation [...] PERCENT (BEAKER) (test code = 2801) POCT-GLUCOSE [id number] 00:02:00 Test Item Value Reference Range Interpretation Comments POC-GLUCOSE METER 191 mg/dL 70-110 H TESTED AT [place] [address] (BEAKER) (test code = [facility] 1538) [address] POCT-GLUCOSE [id number] 17:16:00 Test Item Value Reference Range Interpretation Comments POC-GLUCOSE METER 170 mg/dL 70-110 H TESTED AT [place] [address] [facility] (test code = [facility] Miguel A [facility] 1538) [address] POCT-GLUCOSE [id number] 09:03:00 Test Item Value Reference Range Interpretation Comments POC-GLUCOSE METER 97 mg/dL 70-110 TESTED AT [place] [address] (BEAKER) (test code = [facility] Miguel A [facility] [address] 1538) [id number] 07:03:00 Test Item Value Reference Range Interpretation Comments MAGNESIUM (BEAKER) (test code = 1.9 mg/dL 1.6-2.6 627) BASIC METABOLIC [id number] 07:03:00 Test Item Value Reference Range Interpretation [...] S NOT APPLICABLE FOR DIALYSIS PATIEN TS. [id number] 07:03:00 Test Item Value Reference Range Interpretation Comments LIPASE (BEAKER) (test code = 749) 101 U/L 8-78 H CBC W/PLT COUNT & AUTO [id number] 06:46:00 Test Item Value Reference Range Interpretation [...] PERCENT (BEAKER) (test code = 2801) POCT-GLUCOSE [id number] 22:21:00 Test Item Value Reference Range Interpretation Comments POC-GLUCOSE METER 103 mg/dL 70-110 TESTED AT [place] [address] ([facility]) (test code = [facility] 1538) [address] POCT-GLUCOSE [id number] 17:07:00 Test Item Value Reference Range Interpretation Comments POC-GLUCOSE METER 147 mg/dL 70-110 H TESTED AT [place] [address] ([facility]) (test code = [facility] 1538) [address] POCT-GLUCOSE [id number] 09:05:00 Test Item Value Reference Range Interpretation Comments POC-GLUCOSE METER 117 mg/dL 70-110 H TESTED AT [place] [address] ([facility]) (test code = [facility] 1538) [address] CBC W/PLT COUNT & AUTO [id number] 07:06:00 Test Item Value Reference Range Interpretation [...] 0-1 PERCENT (BEAKER) (test code = 2801) [id number] 06:38:00 Test Item Value Reference Range Interpretation Comments MAGNESIUM (BEAKER) 2.0 mg/dL 1.6-2.6 Specimen slightly (test code = 627) hemolyzed BASIC METABOLIC [id number] 06:38:00 Test Item Value Reference Range Interpretation [...] APPLICABLE FOR DIALYSIS PATIEN TS. HEPATIC FUNCTION [id number] 06:38:00 Test Item Value Reference Range Interpretation [...] Specimen slightly (test code = 347) hemolyzed [id number] 06:38:00 Test Item Value Reference Range Interpretation Comments LIPASE (BEAKER) (test code = 749) 122 U/L 8-78 H POCT-GLUCOSE [id number] 21:48:00 Test Item Value Reference Range Interpretation Comments POC-GLUCOSE METER 102 mg/dL 70-110 TESTED AT [facility] 67 ([facility]) (test code = [facility] Miguel A [facility] 1538) [address] POCT-GLUCOSE [id number] 17:46:00 Test Item Value Reference Range Interpretation Comments POC-GLUCOSE METER 145 mg/dL 70-110 H TESTED AT [place] [address] ([facility]) (test code = [facility] 1538) [address] POCT-GLUCOSE [id number] 12:35:00 Test Item Value Reference Range Interpretation Comments POC-GLUCOSE METER 158 mg/dL 70-110 H TESTED AT [place] [address] ([facility]) (test code = [facility] 1538) 57189 POCT-GLUCOSE [id number] 07:47:00 Test Item Value Reference Range Interpretation Comments POC-GLUCOSE METER 119 mg/dL 70-110 H TESTED AT [place] [address] ([facility]) (test code = [facility] 1538) [address] [id number] 06:40:00 Test Item Value Reference Range Interpretation Comments LIPASE (BEAKER) (test code = 749) 165 U/L 8-78 H BASIC METABOLIC [id number] 06:40:00 Test Item Value Reference Range Interpretation [...] APPLICABLE FOR DIALYSIS PATIEN TS. HEPATIC FUNCTION [id number] 06:40:00 Test Item Value Reference Range Interpretation [...] 347) hemolyzed CBC W/PLT COUNT & AUTO [id number] 05:57:00 Test Item Value Reference Range Interpretation [...] PERCENT (BEAKER) (test code = 2801) POCT-GLUCOSE [id number] 21:35:00 Test Item Value Reference Range Interpretation Comments POC-GLUCOSE METER 160 mg/dL 70-110 H TESTED AT [place] [address] ([facility]) (test code = [place] [address] [facility] 1538) [address] POCT-GLUCOSE [id number] 18:42:00 Test Item Value Reference Range Interpretation Comments POC-GLUCOSE METER 119 mg/dL 70-110 H TESTED AT [place] [address] ([facility]) (test code = [facility] 1538) [address] POCT-GLUCOSE [id number] 14:33:00 Test Item Value Reference Range Interpretation Comments POC-GLUCOSE METER 80 mg/dL 70-110 TESTED AT [place] [address] ([facility]) (test code = [facility] [place] [facility] [address] 1538) POCT-GLUCOSE [id number] 12:29:00 Test Item Value Reference Range Interpretation Comments POC-GLUCOSE METER 81 mg/dL 70-110 TESTED AT [facility] [address] (BEAKER) (test code = [place] [address] 1538) RAD, CHEST, 1 VIEW, NON [id number] 09:58:00Reason for exam:->copdShould this be performed at the bedside?->YesFINAL REPORT RAD, CHEST, 1 VIEW, NON DEPT INDICATION: copd COMPARISON: March 21, 2018 FINDINGS: Portable frontal view of the chest. IMPRESSION: Support Lines: None. Lungs and pleura: Clear lungs. No pneumothorax.Heart and mediastinum: Stable contours. Stable pacer apparatus.Additional findings: None. Signed: JR Jerome Robert MDReport Verified Date/Time: 06/14/2019 09:58:25 Reading Location: [address] Neuro Reading Room HEMOGLOBIN [id number] 09:20:00 Test Item Value Reference Range Interpretation Comments HEMOGLOBIN A1C (BEAKER) (test code = 7.1 % 4.3-6.1 H 368) LIPID [id number] 06:36:00 Test Item Value Reference Range Interpretation [...] 130-159 High 160-189 Very High >=190BASIC METABOLIC [id number] 06:36:00 Test Item Value Reference Range Interpretation [...] APPLICABLE FOR DIALYSIS PATIEN TS. HEPATIC FUNCTION [id number] 06:36:00 Test Item Value Reference Range Interpretation [...] (test code = 19 U/L 6-55 347) [id number] 06:36:00 Test Item Value Reference Range Interpretation Comments AMYLASE (BEAKER) (test code = 349) 368 U/L 25-125 H [id number] 06:36:00 Test Item Value Reference Range Interpretation Comments LIPASE (BEAKER) (test code = 749) 451 U/L 8-78 H POCT-GLUCOSE [id number] 06:34:00 Test Item Value Reference Range Interpretation Comments POC-GLUCOSE METER 73 mg/dL 70-110 TESTED AT [place] [address] (BEAKER) (test code = [place] [address] 1538) B-TYPE NATRIURETIC FACTOR (BNP)2019-06-14 06:32:00 Test Item Value Reference Range Interpretation Comments B-TYPE NATRIURETIC PEPTIDE (BEAKER) 376 pg/mL 0-100 H (test code = 700) CBC W/PLT COUNT & AUTO [id number] 06:23:00 Test Item Value Reference Range Interpretation [...] PERCENT (BEAKER) (test code = 2801) PROTHROMBIN [id number] 06:21:00 Test Item Value Reference Range Interpretation [...] is2.5-3.5 for patients wiht mechanical heart valves.POCT-GLUCOSE [id number] 00:39:00 Test Item Value Reference Range Interpretation Comments POC-GLUCOSE METER 72 mg/dL 70-110 TESTED AT [place] [address] ([facility]) (test code = OTILIA Grady [facility] [address] 1538) POCT-LACTIC ACID, [id number] 00:00:00 Test Item Value Reference Range Interpretation Comments POC-LACTIC ACID, 0.7 mmol/L 0.4-1.3 TESTED AT [facility] [address] (BEAKER) [place] (test code = 2804) [address] POCT-BLOOD GASES, [id number] 00:00:00 Test Item Value Reference Range Interpretation Comments TEMP, CELSIUS-POC 37.4 (BEAKER) (test code = 1834) FIO2-POC (BEAKER) 28 TESTED AT [place] [address] (test code = 1835) [place] [address] PH, ARTERIAL-POC 7.376 7.350-7.450 (BEAKER) (test code [...] H ARTERIAL-POC (BEAKER) (test code = 1841) [id number] 00:00:00 Test Item Value Reference Range Interpretation Comments POC-SODIUM (BEAKER) 142 meq/L 135-148 TESTED A [place] [address] (test code = 1542) NOY Tolentino [facility] [address] [id number] 00:00:00 Test Item Value Reference Range Interpretation Comments POC-POTASSIUM 3.5 meq/L 3.6-5.5 L TESTED AT [place] [address] ([facility]) (test code [facility] [address] = 1540) [id number] 00:00:00 Test Item Value Reference Range Interpretation Comments POC-GLUCOSE ([facility]) 80 mg/dL 70-110 TESTED AT [place] [address] (test code = 1855) NOY Tolentino [facility] [address] POCT-CALCIUM [id number] 00:00:00 Test Item Value Reference Range Interpretation Comments POC-CALCIUM IONIZED 1.17 mmol/L 1.12-1.27 TESTED A [place] [address] ([facility]) (test code = [facility] 1530) [address] [id number] 00:00:00 Test Item Value Reference Range Interpretation Comments POC-HEMATOCRIT 50 % 36-45 H TESTED AT [place] [address] ([facility]) (test code = [facility] Miguel A [facility] [address] 5457) [id number] 00:00:00 Test Item Value Reference Range Interpretation Comments POC-HEMOGLOBIN 17.0 g/dL 12.0-15.0 H TESTED AT [place] [address] (BEAKER) (test code [facility] [place] = 1856) [id number] AT [facility] [address] [place] [address] POCT-GLUCOSE [id number] 20:48:00 Test Item Value Reference Range Interpretation Comments POC-GLUCOSE METER 80 mg/dL 70-110 TESTED AT [facility] [address] (BEAKER) (test code = OTILIA [address] [facility] [address] 1538) AFB CULTURE + [id number] 00:11:00 Test Item Value Reference Range Interpretation Comments CULTURE (BEAKER) (test No acid-fast bacilli code = 1095) isolated in 42 days AFB SMEAR (BEAKER) No acid fast bacilli (test code = 994) seen FUNGUS CULTURE + [id number] 17:08:00 Test Item Value Reference Range Interpretation Comments CULTURE (BEAKER) (test No fungus isolated in code = 1095) 28 days FUNGUS SMEAR (BEAKER) No fungi seen (test code = 1406) AFB CULTURE + [id number] 02:56:00 Test Item Value Reference Range Interpretation Comments CULTURE (BEAKER) (test No acid-fast bacilli code = 1095) isolated in 42 days AFB SMEAR (BEAKER) No acid fast bacilli (test code = 994) seen ANAEROBIC [id number] 17:45:00 Test Item Value Reference Range Interpretation Comments CULTURE (BEAKER) (test No anaerobes isolated code = 1095) BLOOD [id number] 17:43:00 Test Item Value Reference Range Interpretation Comments CULTURE (BEAKER) (test No growth in 5 days code = 1095) BLOOD [id number] 17:43:00 Test Item Value Reference Range Interpretation Comments CULTURE (BEAKER) (test No growth in 5 days code = 1095) POCT-GLUCOSE [id number] 12:38:00 Test Item Value Reference Range Interpretation Comments POC-GLUCOSE METER 147 mg/dL 70-110 H TESTED AT [facility] [address] ([facility]) (test code = OTILIA [place] [facility] 1538) [address] WOUND CULTURE + GRAM [id number] 10:46:00 Test Item Value Reference Interpretation Comments [...] gram negative (BEAKER) (test code rods = 418001) SURGICALLY OBTAINED CULTURE + GRAM [id number] 08:30:00 Test Item Value Reference Range Interpretation Comments CULTURE (BEAKER) (test code No growth = 1095) GRAM STAIN RESULT (BEAKER) No WBCs (test code = 1123) GRAM STAIN RESULT (BEAKER) No organisms seen (test code = 28457) POCT-GLUCOSE [id number] 07:23:00 Test Item Value Reference Range Interpretation Comments POC-GLUCOSE METER 97 mg/dL 70-110 TESTED AT [place] [address] ([facility]) (test code = [facility] [address] 1538) POCT-GLUCOSE [id number] 22:04:00 Test Item Value Reference Range Interpretation Comments POC-GLUCOSE METER 177 mg/dL 70-110 H TESTED AT [place] [address] ([facility]) (test code = [facility] 1538) [address] POCT-GLUCOSE [id number] 17:38:00 Test Item Value Reference Range Interpretation Comments POC-GLUCOSE METER 232 mg/dL 70-110 H TESTED AT [place] [address] ([facility]) (test code = [facility] 1538) [address] POCT-GLUCOSE [id number] 12:40:00 Test Item Value Reference Range Interpretation Comments POC-GLUCOSE METER 139 mg/dL 70-110 H TESTED AT [place] [address] ([facility]) (test code = OTILIA [place] [facility] 1538) [address] POCT-GLUCOSE [id number] 07:47:00 Test Item Value Reference Range Interpretation Comments POC-GLUCOSE METER 96 mg/dL 70-110 TESTED AT [place] [address] ([facility]) (test code = OTILIA [place]ady [facility] [address] 1538) POCT-GLUCOSE [id number] 04:52:00 Test Item Value Reference Range Interpretation Comments POC-GLUCOSE METER 112 mg/dL 70-110 H TESTED AT [place] [address] ([facility]) (test code = OTILIA [place] [facility] 1538) [address] POCT-GLUCOSE [id number] 23:28:00 Test Item Value Reference Range Interpretation Comments POC-GLUCOSE METER 114 mg/dL 70-110 H TESTED AT [place] [address] ([facility]) (test code = OTILIA [place] [facility] 1538) [address] POCT-GLUCOSE [id number] 17:12:00 Test Item Value Reference Range Interpretation Comments POC-GLUCOSE METER 155 mg/dL 70-110 H TESTED AT [place] [address] ([facility]) (test code = OTILIA [place] [facility] 1538) [address] POCT-GLUCOSE [id number] 12:17:00 Test Item Value Reference Range Interpretation Comments POC-GLUCOSE METER 163 mg/dL 70-110 H TESTED AT [place] [address] ([facility]) (test code = OTILIA [place] [facility] 1538) [address] FUNGUS CULTURE + [id number] 09:29:00 Test Item Value Reference Range Interpretation Comments CULTURE ([facility]) (test No fungus isolated in code = 1095) 28 days FUNGUS SMEAR ([facility]) <1+ hyphal elements (test code = 1406) seen See smear results.POCT-GLUCOSE [id number] 21:47:00 Test Item Value Reference Range Interpretation Comments POC-GLUCOSE METER 211 mg/dL 70-110 H TESTED AT [place] [address] ([facility]) (test code = OTILIA [place]ady [facility] 1538) [address] POCT-GLUCOSE [id number] 17:07:00 Test Item Value Reference Range Interpretation Comments POC-GLUCOSE METER 160 mg/dL 70-110 H TESTED AT [facility] [address] (BEAKER) (test code = OTILIA [place] 1538) [address] POCT-GLUCOSE [id number] 11:56:00 Test Item Value Reference Range Interpretation Comments POC-GLUCOSE METER 108 mg/dL 70-110 TESTED AT [facility] [address] (BEAKER) (test code = [facility] [place] 1538) [address] COMPREHENSIVE METABOLIC [id number] 23:00:00 Test Item Value Reference Range Interpretation [...] NOT APPLICABLE FOR DIALYSIS PATIEN TS. PROTHROMBIN [id number] 22:52:00 Test Item Value Reference Range Interpretation [...] LYMPHOCYTES ABSOLUTE COUNT 1.37 K/ L 1.18-3.74 ([facility]) (test code = 414) MONOCYTES ABSOLUTE COUNT (AKER) 0.73 K/ L 0.24-0.36 H (test code = 415) EOSINOPHILS ABSOLUTE COUNT 0.12 K/ L 0.04-0.36 ([facility]) (test code = 416) BASOPHILS ABSOLUTE COUNT ([facility]) 0.08 K/ L 0.01-0.08 (test code = 417) IMMATURE GRANULOCYTES-RELATIVE 1 % 0-1 PERCENT ([facility]) (test code = 2801) POCT-GLUCOSE [id number] 22:47:00 Test Item Value Reference Range Interpretation Comments POC-GLUCOSE METER 196 mg/dL 70-110 H TESTED AT [place] [address] ([facility]) (test code = [facility] 1538) [address] POCT-GLUCOSE [id number] 17:34:00 Test Item Value Reference Range Interpretation Comments POC-GLUCOSE METER 261 mg/dL 70-110 H TESTED AT [place] [address] ([facility]) (test code = [facility] 1538) [address] POCT-GLUCOSE [id number] 16:52:00 Test Item Value Reference Range Interpretation Comments POC-GLUCOSE METER 254 mg/dL 70-110 H TESTED AT [place] [address] ([facility]) (test code = [facility] 1538) [address] POCT-GLUCOSE [id number] 12:24:00 Test Item Value Reference Range Interpretation Comments POC-GLUCOSE METER 168 mg/dL 70-110 H TESTED AT [place] [address] ([facility]) (test code = [facility] [place] [facility] 1538) [address] POCT-GLUCOSE [id number] 08:52:00 Test Item Value Reference Range Interpretation Comments POC-GLUCOSE METER 139 mg/dL 70-110 H TESTED AT [place] [address] ([facility]) (test code = [facility] [place] [facility] 1538) [address] CT, [id number] 08:32:00S/p aortic-bilateral femoral bypass with right groin [...] MDReport Verified Date/Time: 04/21/2018 08:32:26 Reading Location: [facility] [id number] Consult Reading Room POCT-GLUCOSE [id number] 21:51:00 Test Item Value Reference Range Interpretation Comments POC-GLUCOSE METER 132 mg/dL 70-110 H TESTED AT [place] [address] ([facility]) (test code = [facility] 1538) [address] POCT-GLUCOSE [id number] 16:54:00 Test Item Value Reference Range Interpretation Comments POC-GLUCOSE METER 126 mg/dL 70-110 H TESTED AT [place] [address] ([facility]) (test code = [facility] 1538) [address] POCT-GLUCOSE [id number] 12:41:00 Test Item Value Reference Range Interpretation Comments POC-GLUCOSE METER 163 mg/dL 70-110 H TESTED AT [place] [id number] ([facility]) (test code = [facility] 1538) [address] POCT-GLUCOSE [id number] 07:37:00 Test Item Value Reference Range Interpretation Comments POC-GLUCOSE METER 96 mg/dL 70-110 TESTED AT [place] [address] ([facility]) (test code = [facility] [address] 1538) BASIC METABOLIC [id number] 06:21:00 Test Item Value Reference Range Interpretation [...] PATIEN TS. CBC W/PLT COUNT & AUTO [id number] 05:46:00 Test Item Value Reference Range Interpretation [...] PERCENT (BEAKER) (test code = 2801) POCT-GLUCOSE [id number] 21:11:00 Test Item Value Reference Range Interpretation Comments POC-GLUCOSE METER 152 mg/dL 70-110 H TESTED AT [facility] ([facility]) (test code = [facility] 1538) [address] POCT-GLUCOSE [id number] 16:41:00 Test Item Value Reference Range Interpretation Comments POC-GLUCOSE METER 100 mg/dL 70-110 TESTED AT [place] [address] ([facility]) (test code = [facility] 1538) [address] POCT-GLUCOSE [id number] 13:05:00 Test Item Value Reference Range Interpretation Comments POC-GLUCOSE METER 127 mg/dL 70-110 H TESTED AT [place] [address] ([facility]) (test code = [facility] Miguel A [facility] 1538) [address] TSH/FREE T4 IF [id number] 12:05:00 Test Item Value Reference Range Interpretation Comments THYROID STIMULATING HORMONE 2.75 uIU/mL 0.35-4.94 (BEAKER) (test code = 772) [id number] 11:48:00 Test Item Value Reference Range Interpretation Comments MAGNESIUM (BEAKER) (test code = 2.2 mg/dL 1.6-2.6 627) BASIC METABOLIC [id number] 11:48:00 Test Item Value Reference Range Interpretation [...] NOT APPLICABLE FOR DIALYSIS PATIEN TS. POCT-GLUCOSE [id number] 11:40:00 Test Item Value Reference Range Interpretation Comments POC-GLUCOSE METER 118 mg/dL 70-110 H TESTED AT [facility] [address] ([facility]) (test code = [place] 1538) [address] CBC W/PLT COUNT & AUTO [id number] 11:30:00 Test Item Value Reference Range Interpretation [...] PERCENT (BEAKER) (test code = 2801) ANAEROBIC [id number] 02:34:00 Test Item Value Reference Range Interpretation Comments CULTURE (BEAKER) (test No anaerobes isolated code = 1095) SURGICALLY OBTAINED CULTURE + GRAM [id number] 14:05:00 Test Item Value Reference Range Interpretation Comments CULTURE (BEAKER) (test code No growth = 1095) GRAM STAIN RESULT (BEAKER) 1+ WBCs (test code = 1123) GRAM STAIN RESULT (BEAKER) No organisms seen (test code = 50322) POCT-GLUCOSE [id number] 12:39:00 Test Item Value Reference Range Interpretation Comments POC-GLUCOSE METER 131 mg/dL 70-110 H TESTED AT [facility] [address] (BEAKER) (test code = [place] 1538) [address] POCT-GLUCOSE [id number] 08:01:00 Test Item Value Reference Range Interpretation Comments POC-GLUCOSE METER 106 mg/dL 70-110 TESTED AT [facility] [address] (BEAKER) (test code = [place] 1538) [address] BASIC METABOLIC [id number] 06:21:00 Test Item Value Reference Range Interpretation [...] PATIEN TS. CBC W/PLT COUNT & AUTO [id number] 05:48:00 Test Item Value Reference Range Interpretation [...] PERCENT (BEAKER) (test code = 2801) POCT-GLUCOSE [id number] 21:47:00 Test Item Value Reference Range Interpretation Comments POC-GLUCOSE METER 161 mg/dL 70-110 H TESTED AT [facility] [address] (BEAKER) (test code = [place] 1538) [address] POCT-GLUCOSE [id number] 17:08:00 Test Item Value Reference Range Interpretation Comments POC-GLUCOSE METER 189 mg/dL 70-110 H TESTED AT [facility] [address] (BEAKER) (test code = [place] 1538) [address] POCT-GLUCOSE [id number] 11:12:00 Test Item Value Reference Range Interpretation Comments POC-GLUCOSE METER 197 mg/dL 70-110 H TESTED AT [facility] [address] (BEAKER) (test code = [place] 1538) [address] POCT-GLUCOSE [id number] 07:35:00 Test Item Value Reference Range Interpretation Comments POC-GLUCOSE METER 113 mg/dL 70-110 H TESTED AT [facility] [address] (BEAKER) (test code = [place] THAY[place] 1538) [address] BASIC METABOLIC [id number] 06:23:00 Test Item Value Reference Range Interpretation [...] PATIEN TS. CBC W/PLT COUNT & AUTO [id number] 06:12:00 Test Item Value Reference Range Interpretation [...] PERCENT (BEAKER) (test code = 2801) POCT-GLUCOSE [id number] 21:04:00 Test Item Value Reference Range Interpretation Comments POC-GLUCOSE METER 143 mg/dL 70-110 H [facility] (test code = [place] [facility] 1538) [address] POCT-GLUCOSE [id number] 17:04:00 Test Item Value Reference Range Interpretation Comments POC-GLUCOSE METER 182 mg/dL 70-110 H TESTED AT [facility] [address] (BEAKER) (test code = [place] [facility] 1538) [address] SPIN/CONCENTRATION [id number] 15:07:00 Test Item Value Reference Range Interpretation Comments CONCENTRATION CHARGED (BEAKER) (test Done code = 2657) POCT-GLUCOSE [id number] 11:38:00 Test Item Value Reference Range Interpretation Comments POC-GLUCOSE METER 141 mg/dL 70-110 H TESTED AT [facility] [address] (BEAKER) (test code = [place] [facility] [facility] 1538) [address] POCT-GLUCOSE [id number] 08:13:00 Test Item Value Reference Range Interpretation Comments POC-GLUCOSE METER 122 mg/dL 70-110 H TESTED AT [facility] [address] (BEAKER) (test code = [place] [facility] 1538) [address] BASIC METABOLIC [id number] 05:20:00 Test Item Value Reference Range Interpretation [...] PATIEN TS. CBC W/PLT COUNT & AUTO [id number] 04:58:00 Test Item Value Reference Range Interpretation [...] PERCENT (BEAKER) (test code = 2801) POCT-GLUCOSE [id number] 21:18:00 Test Item Value Reference Range Interpretation Comments POC-GLUCOSE METER 147 mg/dL 70-110 H TESTED AT [facility] [address] (BEAKER) (test code = [place] 1532) [address] TISSUE [id number] 15:55:00Surgical Pathology Report Case: [id number] Authorizing Provider: Billy Mcmanus, Collected: 03/18/2018 1046 Ordering Location: [facility] Received: 03/18/2018 1131 PERIOPERATIVE SERVICES Pathologist: Chris Caraballo MD Specimen: Plaque, AORTIC PLAQUE AORTA, ATHERECTOMY:CALCIFIC ATHEROSCLEROTIC PLAQUE Signing Pathologist Direct Phone Line: [phone] signed by Chris Caraballo MD on 03/25/2018 at 3:55 [id number]; [id number] plaque Received in saline labeled "plaque", description "aortic plaque" is a 4.5 x 3.5 x 0.6 cm aggregate of felix-white to yellow-panchal, rubbery, calcified fibrous tissue.Roper Operator sections are submitted in cassette A1 for decalcification. DB/ew PerformedPOTASSIUM-STAT [id number] 11:04:00 Test Item Value Reference Range Interpretation Comments POTASSIUM (BEAKER) (test code = 3.0 meq/L 3.6-5.5 L 379) HGB/HCT (H&H) - STAT [id number] 11:04:00 Test Item Value Reference Range Interpretation Comments HEMOGLOBIN (BEAKER) (test code = 11.2 g/dL 12.0-15.0 L 410) HEMATOCRIT (BEAKER) (test code = 33.0 % 36.0-45.0 L 411) GLUCOSE-STAT [id number] 11:04:00 Test Item Value Reference Range Interpretation Comments GLUCOSE RANDOM (BEAKER) (test code 116 mg/dL 70-110 H = 652) POCT-GLUCOSE [id number] 07:01:00 Test Item Value Reference Range Interpretation Comments POC-GLUCOSE METER 91 mg/dL 70-110 TESTED AT [facility] [address] (BEAKER) (test code = [place] [facility] [address] 1538) BASIC METABOLIC [id number] 05:12:00 Test Item Value Reference Range Interpretation [...] PATIEN TS. CBC W/PLT COUNT & AUTO [id number] 04:36:00 Test Item Value Reference Range Interpretation [...] PERCENT (BEAKER) (test code = 2801) POCT-GLUCOSE [id number] 21:06:00 Test Item Value Reference Range Interpretation Comments POC-GLUCOSE METER 152 mg/dL 70-110 H TESTED AT [facility] [address] (BEAKER) (test [facility] = [facility] 1538) [address] POCT-GLUCOSE [id number] 17:43:00 Test Item Value Reference Range Interpretation Comments POC-GLUCOSE METER 155 mg/dL 70-110 H TESTED AT [facility] [address] (BEAKER) (test code = [facility] Miguel A [facility] 1538) 00231 POCT-GLUCOSE [id number] 12:30:00 Test Item Value Reference Range Interpretation Comments POC-GLUCOSE METER 167 mg/dL 70-110 H TESTED AT [facility] [address] (BEAKER) (test code = [facility] Miguel A [facility] 1538) [address] POCT-GLUCOSE [id number] 07:13:00 Test Item Value Reference Range Interpretation Comments POC-GLUCOSE METER 111 mg/dL 70-110 H TESTED AT [facility] [address] (BEAKER) (test code = [facility] Miguel A [facility] 1538) [address] BASIC METABOLIC [id number] 05:33:00 Test Item Value Reference Range Interpretation [...] PATIEN TS. CBC W/PLT COUNT & AUTO [id number] 04:58:00 Test Item Value Reference Range Interpretation [...] PERCENT (BEAKER) (test code = 2801) POCT-GLUCOSE [id number] 20:59:00 Test Item Value Reference Range Interpretation Comments POC-GLUCOSE METER 178 mg/dL 70-110 H TESTED AT [place] [address] ([facility]) (test code = [facility] 1538) [address] POCT-GLUCOSE [id number] 18:18:00 Test Item Value Reference Range Interpretation Comments POC-GLUCOSE METER 137 mg/dL 70-110 H TESTED AT [place] [address] ([facility]) (test code = [facility] 1538) [address] RAD, SPINE, LUMBAR, COMPLETE (MIN 4 VIEWS)2018-03-23 [...] MDReport Verified Date/Time: 03/23/2018 16:25:16 Reading Location: [facility] B1 C013X Ortho Consult Reading Room Electronically signed by: Ruby DANIEL 03/23/2018 04:25 PMSPUTUM CULTURE + GRAM [id number] 10:41:00 Test Item Value Reference Range Interpretation Comments CULTURE (BEAKER) 3+ Normal respiratory (test code = 1095) anu present GRAM STAIN RESULT <1+ WBCs (BEAKER) (test code = 1123) GRAM STAIN RESULT 10-15 epithelial cells (BEAKER) (test code = 57303) GRAM STAIN RESULT 1+ gram positive cocci (BEAKER) (test code = in pairs 32869) POCT-GLUCOSE [id number] 08:09:00 Test Item Value Reference Range Interpretation Comments POC-GLUCOSE METER 94 mg/dL 70-110 TESTED AT [facility] [address] (BEAKER) (test code = [place] [address] 1538) BASIC METABOLIC [id number] 06:23:00 Test Item Value Reference Range Interpretation [...] PATIEN TS. CBC W/PLT COUNT & AUTO [id number] 06:00:00 Test Item Value Reference Range Interpretation [...] PERCENT (BEAKER) (test code = 2801) POCT-GLUCOSE [id number] 21:32:00 Test Item Value Reference Range Interpretation Comments POC-GLUCOSE METER 238 mg/dL 70-110 H TESTED AT [facility] [address] (BEAKER) (test code = OTILIA [place] 1538) [address] POCT-GLUCOSE [id number] 12:11:00 Test Item Value Reference Range Interpretation Comments POC-GLUCOSE METER 102 mg/dL 70-110 TESTED AT [facility] [address] (BEAKER) (test code = [place] [facility] 1538) 8[address]98 POCT-GLUCOSE [id number] 07:49:00 Test Item Value Reference Range Interpretation Comments POC-GLUCOSE METER 93 mg/dL 70-110 TESTED AT [facility] [address] (BEAKER) (test code = [place] [facility] [address] 1538) BASIC METABOLIC [id number] 06:14:00 Test Item Value Reference Range Interpretation [...] PATIEN TS. CBC W/PLT COUNT & AUTO [id number] 05:44:00 Test Item Value Reference Range Interpretation [...] PERCENT (BEAKER) (test code = 2801) POCT-GLUCOSE [id number] 21:06:00 Test Item Value Reference Range Interpretation Comments POC-GLUCOSE METER 116 mg/dL 70-110 H TESTED AT [facility] [address] (BEAKER) (test code = [place] 1538) [address] POCT-GLUCOSE [id number] 16:33:00 Test Item Value Reference Range Interpretation Comments POC-GLUCOSE METER 138 mg/dL 70-110 H TESTED AT [facility] [address] ([facility]) (test code = [place] 1538) [address] POCT-GLUCOSE [id number] 12:15:00 Test Item Value Reference Range Interpretation Comments POC-GLUCOSE METER 150 mg/dL 70-110 H TESTED AT [place] [address] ([facility]) (test code = OTILIA Gardy [facility] 1538) [address] POCT-GLUCOSE [id number] 09:03:00 Test Item Value Reference Range Interpretation Comments POC-GLUCOSE METER 101 mg/dL 70-110 TESTED AT [place] [address] ([facility]) (test code = OT[place] [facility] 1538) [address] RAD, CHEST, 1 VIEW, NON [id number] 08:03:00Reason for exam:->post cardiovascular procedureShould this be [...] Turcios Verified Date/Time: 03/21/2018 08:03:21 Reading Location: [facility] Diagnostic Imaging Reading Room - [place] [address] [id number] 04:37:00 Test Item Value Reference Range Interpretation Comments MAGNESIUM (BEAKER) 1.9 mg/dL 1.6-2.6 Specimen slightly (test code = 627) hemolyzed BASIC METABOLIC [id number] 04:37:00 Test Item Value Reference Range Interpretation [...] PATIEN TS. CBC W/PLT COUNT & AUTO [id number] 04:27:00 Test Item Value Reference Range Interpretation [...] PERCENT (BEAKER) (test code = 2801) POCT-GLUCOSE [id number] 20:59:00 Test Item Value Reference Range Interpretation Comments POC-GLUCOSE METER 111 mg/dL 70-110 H TESTED AT [place] [address] ([facility]) (test code = OT[place] [facility] 1538) [address] POCT-GLUCOSE [id number] 18:33:00 Test Item Value Reference Range Interpretation Comments POC-GLUCOSE METER 101 mg/dL 70-110 TESTED AT [place] [address] ([facility]) (test code = OT[place] [facility] 1538) 11574 POCT-GLUCOSE [id number] 16:33:00 Test Item Value Reference Range Interpretation Comments POC-GLUCOSE METER 128 mg/dL 70-110 H TESTED AT [place] [address] ([facility]) (test code = OT[place]IA [facility] 1538) [address]69 POCT-GLUCOSE [id number] 11:35:00 Test Item Value Reference Range Interpretation Comments POC-GLUCOSE METER 129 mg/dL 70-110 H TESTED AT [place] [address] ([facility]) (test code = OT[place] [facility] 1538) 9[address] HEMOGLOBIN [id number] 08:58:00 Test Item Value Reference Range Interpretation Comments HEMOGLOBIN A1C (BEAKER) (test code = 6.0 % 4.3-6.1 368) RAD, CHEST, 1 VIEW, NON [id number] 08:06:00Reason for exam:->post cardiovascular procedureShould this be [...] MDReport Verified Date/Time: 03/20/2018 08:06:53 Reading Location: [facility] Radiology Reading Room POCT-GLUCOSE [id number] 06:21:00 Test Item Value Reference Range Interpretation Comments POC-GLUCOSE METER 133 mg/dL 70-110 H TESTED AT [facility] (BEAKER) (test code = OT[place]IA [place] [facility] 1538) [address] [id number] 06:00:00 Test Item Value Reference Range Interpretation Comments MAGNESIUM (BEAKER) (test code = 2.0 mg/dL 1.6-2.6 627) BASIC METABOLIC [id number] 06:00:00 Test Item Value Reference Range Interpretation [...] PATIEN TS. CBC W/PLT COUNT & AUTO [id number] 05:39:00 Test Item Value Reference Range Interpretation [...] PERCENT (BEAKER) (test code = 2801) POCT-GLUCOSE [id number] 00:24:00 Test Item Value Reference Range Interpretation Comments POC-GLUCOSE METER 117 mg/dL 70-110 H TESTED AT [facility] ([facility]) (test code = [facility] Miguel A [facility] 1538) [address] POCT-GLUCOSE [id number] 17:07:00 Test Item Value Reference Range Interpretation Comments POC-GLUCOSE METER 132 mg/dL 70-110 H TESTED AT [place] [address] ([facility]) (test code = [facility] A [facility] 1538) [address] RAD, ABDOMEN/KUB, 1 VIEW [id number] 15:02:00Reason for exam:->nausea and eructationsFINAL REPORT TECHNIQUE: [...] Glass Verified Date/Time: 03/19/2018 15:02:35 Reading Location: [facility] Radiology Reading Room POCT- GLUCOSE [id number] 10:23:00 Test Item Value Reference Range Interpretation Comments POC-GLUCOSE METER 111 mg/dL 70-110 H TESTED AT [facility] ([facility]) (test code = [facility] [facility] A [facility] 1538) [address] RAD, CHEST, 1 VIEW, NON [id number] 08:26:00Reason for exam:->post cardiovascular procedureShould this be [...] MDReport Verified Date/Time: 03/19/2018 08:26:26 Reading Location: [facility] Radiology Reading Room POCT-GLUCOSE [id number] 06:09:00 Test Item Value Reference Range Interpretation Comments POC-GLUCOSE METER 120 mg/dL 70-110 H TESTED AT [facility] [address] (BEAKER) (test code = [place] [facility] 1538) [address] POCT-GLUCOSE [id number] 06:09:00 Test Item Value Reference Range Interpretation Comments POC-GLUCOSE METER 120 mg/dL 70-110 H TESTED AT [facility] [address] (BEAKER) (test code = [facility] Miguel A [facility] 1538) [address] [id number] 04:28:00 Test Item Value Reference Range Interpretation Comments MAGNESIUM (BEAKER) 2.2 mg/dL 1.6-2.6 Specimen slightly (test code = 627) hemolyzed BASIC METABOLIC [id number] 04:28:00 Test Item Value Reference Range Interpretation [...] PATIEN TS. CBC W/PLT COUNT & AUTO [id number] 04:19:00 Test Item Value Reference Range Interpretation [...] (BEAKER) (test code = 2801) BLOOD GAS, [id number] 04:01:00 Test Item Value Reference Range Interpretation [...] code = 1819) 40.0 % BLOOD GAS, [id number] 22:23:00 Test Item Value Reference Range Interpretation [...] (test code = 1819) 40.0 % GLUCOSE-STAT [id number] 22:23:00 Test Item Value Reference Range Interpretation Comments GLUCOSE RANDOM (BEAKER) (test code 140 mg/dL 70-110 H = 652) [id number] 20:01:00 Test Item Value Reference Range Interpretation Comments POTASSIUM (BEAKER) (test code = 3.7 meq/L 3.5-5.1 379) 8 hours after PO replacement [id number] 20:01:00 Test Item Value Reference Range Interpretation Comments MAGNESIUM (BEAKER) (test code = 2.2 mg/dL 1.6-2.6 627) 8 hours after PO replacement completedBLOOD GAS, [id number] 19:27:00 Test Item Value Reference Range Interpretation [...] (test code = 1819) 40.0 % POCT-GLUCOSE [id number] 19:09:00 Test Item Value Reference Range Interpretation Comments POC-GLUCOSE METER 123 mg/dL 70-110 H TEST[facility] [place] [address] [facility] (test code = OT[place] [facility] [facility] 1538) [address] POCT-GLUCOSE [id number] 18:02:00 Test Item Value Reference Range Interpretation Comments POC-GLUCOSE METER 108 mg/dL 70-110 TESTED AT [place] [address] ([facility]) (test code = OT[place] 1538) [address] POCT-GLUCOSE [id number] 17:06:00 Test Item Value Reference Range Interpretation Comments POC-GLUCOSE METER 103 mg/dL 70-110 TESTED AT [place] [address] ([facility]) (test code = OT[place] 1538) [address] POCT-GLUCOSE [id number] 16:00:00 Test Item Value Reference Range Interpretation Comments POC-GLUCOSE METER 121 mg/dL 70-110 H TESTED AT [facility] (BEAKER) (test code = OTILIA [place] 1538) [address] POCT-GLUCOSE [id number] 15:45:00 Test Item Value Reference Range Interpretation Comments POC-GLUCOSE METER 146 mg/dL 70-110 H TESTED AT [facility] (BEAKER) (test code = OT[place] 1538) [address] BLOOD GAS, [id number] 15:25:00 Test Item Value Reference Range Interpretation [...] = 1819) 40.0 % PLATELET AGGREGATION: FUNCTION [id number] 13:34:00 Test Item Value Reference Range Interpretation Comments WEAK ADP 63 % 60-91 RESULT(BEAKER) (test code = 2135) PLATELET FUNCTION 60-100% indicates SCREEN INTERP (BEAKER) normal platelet (test code = 2173) function [id number] Teresa De León MD (BEAKER) (test code = (electronic signature) 9132) PLATELET COUNT AGG 209 K/CU MM 150-450 [...] Garrett Verified Date/Time: 03/18/2018 13:15:44 Reading Location: [facility] B1 C013W Consult Reading Room [id number] 13:04:00 Test Item Value Reference Range Interpretation Comments MAGNESIUM (BEAKER) (test code = 1.8 mg/dL 1.6-2.6 627) BASIC METABOLIC [id number] 13:04:00 Test Item Value Reference Range Interpretation [...] S NOT APPLICABLE FOR DIALYSIS PATIEN TS. [id number] 12:43:00 Test Item Value Reference Range Interpretation Comments PHOSPHORUS (BEAKER) (test code = 3.9 mg/dL 2.3-4.7 604) LACTIC ACID, VENOUS, WHOLE [id number] 12:15:00 Test Item Value Reference Range Interpretation Comments LACTATE BLOOD VENOUS 1.0 mmol/L 0.5-2.2 Specime n slightly (2) (BEAKER) (test hemolyzed code = 2872) Effective 02/09/2016: Units/Reference Range ChangeNew: 0.5-2.2 mmol/L Previous: 5-20 mg/dLCBC W/PLT COUNT & AUTO [id number] 12:06:00 Test Item Value Reference Range Interpretation [...] code = 2801) HGB/HCT (H&H) - STAT [id number] 12:01:00 Test Item Value Reference Range Interpretation Comments HEMOGLOBIN (BEAKER) (test code = 13.8 g/dL 12.0-15.0 410) HEMATOCRIT (BEAKER) (test code = 41.0 % 36.0-45.0 411) CALCIUM, [id number] 12:01:00 Test Item Value Reference Range Interpretation Comments CALCIUM IONIZED (BEAKER) (test 1.25 mmol/L 1.12-1.27 code = 698) PH, BLOOD (BEAKER) (test code = 7.37 1810) BLOOD GAS, [id number] 12:01:00 Test Item Value Reference Range Interpretation [...] (test code = 1819) 60.0 % POTASSIUM-STAT [id number] 12:01:00 Test Item Value Reference Range Interpretation Comments POTASSIUM (BEAKER) (test code = 3.0 meq/L 3.6-5.5 L 379) GLUCOSE-STAT [id number] 12:01:00 Test Item Value Reference Range Interpretation Comments GLUCOSE RANDOM (BEAKER) (test code 139 mg/dL 70-110 H = 652) BLOOD GAS, [id number] 10:42:00 Test Item Value Reference Range Interpretation [...] (test code = 1819) 50.0 % POTASSIUM-STAT [id number] 10:42:00 Test Item Value Reference Range Interpretation Comments POTASSIUM (BEAKER) (test code = 3.1 meq/L 3.6-5.5 L 379) GLUCOSE-STAT [id number] 10:42:00 Test Item Value Reference Range Interpretation Comments GLUCOSE RANDOM (BEAKER) (test code 139 mg/dL 70-110 H = 652) CALCIUM, [id number] 10:41:00 Test Item Value Reference Range Interpretation Comments CALCIUM IONIZED (BEAKER) (test 1.27 mmol/L 1.12-1.27 code = 698) PH, BLOOD (BEAKER) (test code = 7.38 1810) SODIUM NA-STAT [id number] 10:40:00 Test Item Value Reference Range Interpretation Comments SODIUM (BEAKER) (test code = 381) 141 meq/L 135-148 HGB/HCT (H&H) - STAT [id number] 10:40:00 Test Item Value Reference Range Interpretation Comments HEMOGLOBIN (BEAKER) (test code = 13.7 g/dL 12.0-15.0 410) HEMATOCRIT (BEAKER) (test code = 40.0 % 36.0-45.0 411) BLOOD GAS, [id number] 09:53:00 Test Item Value Reference Range Interpretation [...] (test code = 1819) 50.0 % POTASSIUM-STAT [id number] 09:53:00 Test Item Value Reference Range Interpretation Comments POTASSIUM (BEAKER) (test code = 3.0 meq/L 3.6-5.5 L 379) GLUCOSE-STAT [id number] 09:53:00 Test Item Value Reference Range Interpretation Comments GLUCOSE RANDOM (BEAKER) (test code 135 mg/dL 70-110 H = 652) CALCIUM, [id number] 09:53:00 Test Item Value Reference Range Interpretation Comments CALCIUM IONIZED (BEAKER) (test 1.01 mmol/L 1.12-1.27 L code = 698) PH, BLOOD (BEAKER) (test code = 7.43 1810) SODIUM NA-STAT [id number] 09:51:00 Test Item Value Reference Range Interpretation Comments SODIUM (BEAKER) (test code = 381) 137 meq/L 135-148 HGB/HCT (H&H) - STAT [id number] 09:51:00 Test Item Value Reference Range Interpretation Comments HEMOGLOBIN (BEAKER) (test code = 14.1 g/dL 12.0-15.0 410) HEMATOCRIT (BEAKER) (test code = 41.0 % 36.0-45.0 411) BLOOD GAS, [id number] 08:48:00 Test Item Value Reference Range Interpretation [...] (test code = 1819) 100.0 % POTASSIUM-STAT [id number] 08:48:00 Test Item Value Reference Range Interpretation Comments POTASSIUM (BEAKER) (test code = 3.1 meq/L 3.6-5.5 L 379) GLUCOSE-STAT [id number] 08:48:00 Test Item Value Reference Range Interpretation Comments GLUCOSE RANDOM (BEAKER) (test code 116 mg/dL 70-110 H = 652) HGB/HCT (H&H) - STAT [id number] 08:48:00 Test Item Value Reference Range Interpretation Comments HEMOGLOBIN (BEAKER) (test code = 15.5 g/dL 12.0-15.0 H 410) HEMATOCRIT (BEAKER) (test code = 46.0 % 36.0-45.0 H 411) CALCIUM, [id number] 08:47:00 Test Item Value Reference Range Interpretation Comments CALCIUM IONIZED (BEAKER) (test 1.12 mmol/L 1.12-1.27 code = 698) PH, BLOOD (BEAKER) (test code = 7.42 1810) SODIUM NA-STAT [id number] 08:46:00 Test Item Value Reference Range Interpretation Comments SODIUM (BEAKER) (test code = 381) 141 meq/L 135-148 POCT-GLUCOSE [id number] 07:58:00 Test Item Value Reference Range Interpretation Comments POC-GLUCOSE METER 105 mg/dL 70-110 TESTED AT [facility] (BEAKER) (test code = [place] [place] 1538) [address] [id number] 15:19:00 Test Item Value Reference Range Interpretation Comments PARTIAL THROMBOPLASTIN TIME 27.8 seconds 22.5-36.0 (BEAKER) (test code = 760) PROTHROMBIN TIME/[id number] 15:18:00 Test Item Value Reference Range Interpretation Comments PROTIME (BEAKER) (test code = 14.4 seconds 11.7-14.7 759) INR (BEAKER) (test code = 370) 1.1 <=5.9 RECOMMENDED COUMADIN/WARFARIN INR THERAPY RANGESSTANDARD DOSE: 2.0 - 3.0 Includes: PROPHYLAXIS forvenous thrombosis, systemic embolization; TREATMENT for venous thrombosis and/or pulmonary embolus.HIGH RISK: Target INR is 2.5-3.5 for patients with mechanical heart valves.COMPREHENSIVE METABOLIC [id number] 15:10:00 Test Item Value Reference Range Interpretation [...] FOR DIALYSIS PATIEN TS. RAD, CHEST, 2 [id number] 14:44:00Reason for exam:->preopFINAL REPORT Chest two views [...] MDReport Verified Date/Time: 03/11/2018 14:44:31 Reading Location: [address] Consult Reading Room CBC W/PLT COUNT & AUTO [id number] 14:43:00 Test Item Value Reference Range Interpretation [...] % 0-1 PERCENT (BEAKER) (test code = 4571)
[2021-03-31] MEDS ORDERED: ONDANSETRON 4 MG/2 ML VIAL IV PRN (13:16)
[2021-03-31] MEDS ORDERED: HYDROMORPHONE HCL 1 MG/ML INJ IV PRN (13:16)
[2021-03-31] MEDS ORDERED: NA CHLORIDE 0.9% 500 ML IV ONE (13:16)
[2021-03-31 13:55] LABS: Absolute Lymphocytes (CBC) 1.1 K/uL (0.7-4.9); Basophils % 0.5 % (0-1.3); Hematocrit 39.3 % (36.0-45.0); Lymphocytes % 16.6 % (15.3-44.8); MPV 10.4 fL (7.6-11.3); RBC Red Blood Cell Count 4.07 M/uL (3.86-4.86)
[2021-03-31] MEDS ORDERED: CEFTRIAXONE/SWI 1gm 1 GM/10 ML SYR IVP SCH (14:00)
[2021-03-31 14:17] LABS: Albumin 3.1 g/dL (3.4-5.0); Bilirubin Total 0.6 mg/dL (0.2-1.0); Potassium 4.3 mmol/L (3.5-5.1); Protein, Total 7.2 g/dL (6.4-8.2)
[2021-03-31 14:41] LABS: Urine Blood Negative (Negative); Urine Glucose Negative (Negative); Urine Protein Negative (Negative); Urine Specific Gravity 1.015 (1.005-1.030); Urine pH 6.5 (5.0-7.0)
--- NOTE | 2021-03-31 14:45 | RAD REPORT ---
EXAM DESCRIPTION: CT - Abdomen Pelvis Wo Contrast - 03/31/2021 2:16 pm CLINICAL HISTORY: abd pain COMPARISON: Abdomen Pelvis W Contrast dated 06/13/2019; Abdomen Pelvis W Contrast dated 04/27/2018 TECHNIQUE: Axial [address] imaging of the abdomen and pelvis was performed without IV contrast. No IV contrast was given because of allergy, abnormal renal function, patient refusal or physician re quest. No oral contrast administered. All CT scans are performed using dose optimization technique as appropriate and may include automated exposure control or mA/KV adjustment according to patient size. FINDINGS: Chronic interstitial lung changes are present. Mild cardiomegaly present without pericardi al effusion. No acute lung base finding seen. No suspicious liver finding. Midline left lobe liver cyst not clearly different. No pancreatic or per ipancreatic abnormality seen. No splenomegaly. Gallbladder is absent. No biliary tree dilatation. Kidneys are lobulated similar to comparison. No hydronephrosis. No obstructing calculi. A 3 millimete r central right renal calcification could be a nonobstructing calyx calcification or vascular calcifi cation. Renal cyst pattern is not clearly different from comparison. No significant adrenal finding. Isodense renal masses and pyelonephritis cannot be excluded in the absence of IV contrast. The urina ry bladder is without significant finding. No stomach, small bowel or colon acute finding. Sigmoid colon is tortuous and redundant. No active GI process identifiable. No free air, free fluid or inflammatory stranding. No mass or bulky lymphaden opathy. The periumbilical and infraumbilical abdominal hernia changes have enlarged slightly since 20 19. Small bowel is seen within the hernia with no active process identifiable. Disc and bone degenerative changes are present. No acute or pathologic bone process identifiable. Dense arterial tree calcifications are present. 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 Prominent calcifications are present at the origin of the celiac artery. Inferior mesent tiana artery is identifiable. Bowel ischemia is not suspected. 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 IMPRESSION: Non-contrast enhanced CT abdomen and pelvis imaging show no acute or emergent finding. Isodense masses and pyelonephritis cannot be excluded on a noncontrast study. Above detailed findings are not significantly different from comparison. Patient has extensive vascul ar disease is only partially assessed on a noncontrast study.
[2021-03-31] MEDS ORDERED: CEFTRIAXONE/SWI 1gm 1 GM/10 ML SYR ONE (15:20)
--- NOTE | 2021-03-31 16:56 | ER ---
Nurse's Notes [facility] Name: Fanny Arceo Age: 85 yrs Sex: Female : 1935 Arrival Date: 03/31/2021 Time: 13:02 Bed 4 Private MD: Diagnosis: Muscle spasm of back-left flank Presentation: 03/31 13:08 Chief complaint: EMS states: Worsening left flank pain x 2 weeks. Recently treated for hb kidney infection. Coronavirus screen: At this time, the client does not indicate any symptoms associated with coronavirus-19. Ebola Screen: No symptoms or risks identified at this time. Initial Sepsis Screen: Does the patient meet any 2 criteria? No. Patient's initial sepsis screen is negative. Does the patient have a suspected source of infection? No. Patient's initial sepsis screen is negative. Risk Assessment: Do you want to hurt yourself or someone else? Patient reports no desire to harm self or others. Onset of symptoms was March 2021. Transition of care: patient was received from another setting of care (long-term care facility)[facility]. 13:08 Method Of Arrival: EMS: [facility] 13:08 Acuity: JESSE 3 hb Triage Assessment: 13:13 General: Appears in no apparent distress. uncomfortable, Behavior is cooperative. Pain: hb Pain currently is 8 out of 10 on a pain scale. EENT: No signs and/or symptoms were reported regarding the EENT system. Neuro: Level of Consciousness is awake, alert, obeys commands, Oriented to person, place, time, situation. Cardiovascular: Patient's skin is warm and dry. Rhythm is regular. Respiratory: Respiratory effort is even, unlabored, Respiratory pattern is regular, symmetrical. GI: No signs and/or symptoms were reported involving the gastrointestinal system. : No signs and/or symptoms were reported regarding the genitourinary system. Derm: Skin is pink, warm \T\ dry. Musculoskeletal: Reports Left flank pain. Historical: - Allergies: 13:13 Atenolol; hb 13:13 Morphine; hb 13:13 Simvastatin; hb 13:13 Sulfa (Sulfonamide Antibiotics); hb 13:13 Ticlopidine HCl; hb - Home Meds: 13:13 albuterol sulfate 2.5 mg /3 mL (0.083 %) Inhl nebu Q 4 hrs PRN [Active]; amlodipine 5 hb mg tab 1 tab once daily [Active]; aspirin 325 mg Oral TbEC 1 tab once daily [Active]; carvedilol Oral [Active]; famotidine 40 mg Oral tab 1 tab once daily [Active]; fenofibrate 145 MG Oral 1 cap once daily [Active]; Furosemide Oral [Active]; gabapentin 600 mg Oral tab 1 tab twice a day [Active]; isorsorbide 60mg daily [Active]; levothyroxine 125 mcg tab 1 tab once daily [Active]; losartan-hydrochlorothiazide 100-25 mg Oral tab 1 tab once daily [Active]; metoprolol tartrate 25 mg Oral tab 1 tab once daily [Active]; prednisone 10 mg Oral tab 1 tab once daily [Active]; Spironolactone Oral [Active]; Ultram 50 mg Oral tab 1 tab twice a day [Active]; Zoloft 50 mg Oral tab 1 tab nightly [Active]; - PMHx: 13:13 Depression; COPD; Atrial Fib; CAD; CHF; Hypertension; Clot to right arm; hb Hypothyroidism; Hyperlipidemia; High Cholesterol; GERD; Diabetes - IDDM; neuropathy; chronic renal failure; Sleep Apnea; - Immunization history:: Adult Immunizations up to date. - Social history:: Smoking status: Patient denies any tobacco usage or history of. - Family history:: not pertinent. Screenin:13 Abuse screen: Denies threats or abuse. Denies injuries from another. Nutritional hb screening: No deficits noted. Tuberculosis screening: No symptoms or risk factors identified. Fall Risk Total Pugh Fall Scale indicates Low Risk Score (25-44 pts). Fall prevention measures have been instituted. Side Rails Up X 2 Frequent Obs/Assesments occuring As available Patient and Family Educated on Fall Prevention Program and strategies. Assessment: 13:14 General: see triage assessment . hb 14:30 Reassessment: Patient appears in no apparent distress at this time. Patient and/or hb family updated on plan of care and expected duration. Pain level reassessed. Patient is alert, oriented x 3, equal unlabored respirations, skin warm/dry/pink. 15:30 Reassessment: Patient appears in no apparent distress at this time. No changes from previously documented assessment. Patient and/or family updated on plan of care and expected duration. Pain level reassessed. 16:11 Reassessment: Patient appears in no apparent distress at this time. Patient and/or hb family updated on plan of care and expected duration. Pain level reassessed. Patient is alert/active/playful, equal unlabored respirations, skin warm/dry/pink. 17:00 Reassessment: Patient appears in no apparent distress at this time. No changes from hb previously documented assessment. Patient and/or family updated on plan of care and expected duration. Pain level reassessed. 17:20 Reassessment: Attempted to call report to [place], results faxed at requested. hb Awaiting call back from [facility] at this time. Vital Signs: 13:08 BP 141 / 108; Pulse 70; Resp 17; Temp 98.1; Pulse Ox 100% on R/A; Pain 8/10; hb 15:37 BP 148 / 98; Pulse 74; Resp 15; Pulse Ox 99% on 2 lpm NC; hb 17:00 BP 147 / 67; Pulse 72; Resp 15; Pulse Ox 98% on 2 lpm NC; hb ED Course: 13:02 Patient arrived in ED. ds1 13:08 Thelma Argueta RN is Primary Nurse. hb 13:09 Juan F Galvez PA is PHCP. jr8 13:09 Sheridan Larose MD is Attending Physician. jr8 13:10 Triage completed. hb 13:13 Arm band placed on. hb 13:14 Patient has correct armband on for positive identification. Bed in low position. Call hb light in reach. 13:42 Missed attempt(s): 22 gauge in left forearm. Bleeding controlled, band aid applied, sv catheter tip intact. 13:42 Initial lab(s) drawn, by or, sent to lab. sv 13:48 Inserted saline lock: 22 gauge in left wrist, using aseptic technique. Flushed left sv with 5 ml normal saline. 14:16 Abdomen In Process Unspecified. EDMS Administered Medications: 15:06 Drug: Rocephin (cefTRIAXone) 1 grams Route: IV; Rate: calculated rate; Site: left wrist;hb Outcome: 16:55 Discharge ordered by MD. vivas 18:45 Patient left the ED. hb Signatures: Dispatcher [facility] EDOR Melany Smyth RN RN Charo Mcarthur ds1 Juan F Galvez PA PA jr8 Thelma Argueta, RN RN hb Sheridan Larose MD MD ma2 Corrections: (The following items were deleted from the chart) 17:43 15:37 BP 148 / 98; Pulse 74bpm; Resp 15bpm; Pulse Ox 99% RA; hb hb
--- NOTE | 2021-03-31 16:56 | EDPHYS ---
Physician Documentation [facility] Name: Fanny Arceo Age: 85 yrs Sex: Female : 1935 Arrival Date: 03/31/2021 Time: 13:02 Bed 4 Private MD: ED Physician Sheridan Larose HPI: 03/31 14:38 This 85 yrs old Female presents to ER via EMS with complaints of Flank Pain. ma2 14:38 Onset: The symptoms/episode began/occurred gradually, 1 week(s) ago. Associated signs ma2 and symptoms: Pertinent negatives: dysuria, fever, headache. Severity of pain: At its worst the pain was mild in the emergency department the pain is unchanged. The patient has experienced similar episodes in the past. currently has pyelonephritis takes abx, here for follow up as they could not draw blood at her pcp . Historical: - Allergies: 13:13 Atenolol; hb 13:13 Morphine; hb 13:13 Simvastatin; hb 13:13 Sulfa (Sulfonamide Antibiotics); hb 13:13 Ticlopidine HCl; hb - Home Meds: 13:13 albuterol sulfate 2.5 mg /3 mL (0.083 %) Inhl nebu Q 4 hrs PRN [Active]; amlodipine 5 hb mg tab 1 tab once daily [Active]; aspirin 325 mg Oral TbEC 1 tab once daily [Active]; carvedilol Oral [Active]; famotidine 40 mg Oral tab 1 tab once daily [Active]; fenofibrate 145 MG Oral 1 cap once daily [Active]; Furosemide Oral [Active]; gabapentin 600 mg Oral tab 1 tab twice a day [Active]; isorsorbide 60mg daily [Active]; levothyroxine 125 mcg tab 1 tab once daily [Active]; losartan-hydrochlorothiazide 100-25 mg Oral tab 1 tab once daily [Active]; metoprolol tartrate 25 mg Oral tab 1 tab once daily [Active]; prednisone 10 mg Oral tab 1 tab once daily [Active]; Spironolactone Oral [Active]; Ultram 50 mg Oral tab 1 tab twice a day [Active]; Zoloft 50 mg Oral tab 1 tab nightly [Active]; - PMHx: 13:13 Depression; COPD; Atrial Fib; CAD; CHF; Hypertension; Clot to right arm; hb Hypothyroidism; Hyperlipidemia; High Cholesterol; GERD; Diabetes - IDDM; neuropathy; chronic renal failure; Sleep Apnea; - Immunization history:: Adult Immunizations up to date. - Social history:: Smoking status: Patient denies any tobacco usage or history of. - Family history:: not pertinent. ROS: 14:38 Constitutional: Negative for fever, chills, and weight loss. ma2 14:38 All other systems are negative. Exam: 14:38 Constitutional: This is a well developed, well nourished patient who is awake, alert, ma2 and in no acute distress. Neck: Trachea midline, no thyromegaly or masses palpated, and no cervical lymphadenopathy. Supple, full range of motion without nuchal rigidity, or vertebral point tenderness. No Meningismus. Chest/axilla: Normal chest wall appearance and motion. Nontender with no deformity. No lesions are appreciated. Cardiovascular: Regular rate and rhythm with a normal S1 and S2. No gallops, murmurs, or rubs. Normal PMI, no JVD. No pulse deficits. Respiratory: Lungs have equal breath sounds bilaterally, clear to auscultation and percussion. No rales, rhonchi or wheezes noted. No increased work of breathing, no retractions or nasal flaring. Abdomen/GI: Soft, non-tender, with normal bowel sounds. No distension or tympany. No guarding or rebound. No evidence of tenderness throughout. Back: No spinal tenderness. No costovertebral tenderness. Full range of motion. Skin: Warm, dry with normal turgor. Normal color with no rashes, no lesions, and no evidence of cellulitis. MS/ Extremity: Pulses equal, no cyanosis. Neurovascular intact. Full, normal range of motion. Neuro: Awake and alert, GCS 15, oriented to person, place, time, and situation. Cranial nerves II-XII grossly intact. Motor strength 5/5 in all extremities. Sensory grossly intact. Cerebellar exam normal. Normal gait. Vital Signs: 13:08 BP 141 / 108; Pulse 70; Resp 17; Temp 98.1; Pulse Ox 100% on R/A; Pain 8/10; hb 15:37 BP 148 / 98; Pulse 74; Resp 15; Pulse Ox 99% on 2 lpm NC; hb 17:00 BP 147 / 67; Pulse 72; Resp 15; Pulse Ox 98% on 2 lpm NC; hb MDM: 13:09 Patient medically screened. jr8 16:53 Differential diagnosis: pyelonephritis, UTI, pancreatitis. Data reviewed: vital signs, ma2 nurses notes. Counseling: I had a detailed discussion with the patient and/or guardian regarding: the historical points, exam findings, and any diagnostic results supporting the discharge/admit diagnosis, the presence of at least one elevated blood pressure reading (>120/80) during this emergency department visit, the need for outpatient follow up. Response to treatment: the patient's symptoms have markedly improved after treatment. 03/31 13:19 Order name: CBC with Automated Diff; Complete Time: 14:16 EDMS 03/31 13:19 Order name: Comprehensive Metabolic Panel; Complete Time: 14:40 EDMS 03/31 14:03 Order name: CREATININE WHOLE BLOOD; Complete Time: 14:16 EDMS 03/31 14:40 Order name: Urine Dipstick-Ancillary; Complete Time: 16:01 EDMS 03/31 14:07 Order name: Abdomen ; Complete Time: 16:01 EDMS Administered Medications: 15:06 Drug: Rocephin (cefTRIAXone) 1 grams Route: IV; Rate: calculated rate; Site: left wrist;hb Disposition: 03/31/21 16:55 Discharged to Home. Impression: Muscle spasm of back - left flank. - Condition is Stable. - Discharge Instructions: Muscle Cramps and Spasms, [id number]. - Prescriptions for Cyclobenzaprine 10 mg Oral Tablet - take 1 tablet by ORAL route every 8 hours As needed; 30 tablet. - Medication Reconciliation Form, SBAR form, Thank You Letter, Antibiotic Education, Prescription Opioid Use form. - Follow up: Private Physician; When: Tomorrow; Reason: If symptoms return, Continuance of care. - Notes: take tylenol 500 mg for pain every 4-6 hours as needed Signatures: Dispatcher [employer] EDUT Juan F Gavlez PA PA jr8 Thelma Argueta RN RN Sheridan Larose MD MD ma2 Corrections: (The following items were deleted from the chart) 14:07 13:19 Abdomen ordered. EDUT EDUT 18:45 16:55 03/31/2021 16:55 Discharged to Home. Impression: Muscle spasm of back - left hb flank. Condition is Stable. Prescriptions for Diclofenac Sodium 75 mg Oral Tablet Sustained Release - take 1 tablet by ORAL route 2 times per day; 30 tablet. and Forms are Medication Reconciliation Form, Thank You Letter, Antibiotic Education, Prescription Opioid Use. Follow up: Private Physician; When: Tomorrow; Reason: If symptoms return, Continuance of care. ma2
[2021-03-31 18:50] VITALS: TEMP 98.1
[2021-03-31 18:54] VITALS: BP 147/67; O2SAT 98
== END 2021-03-31 18:45 | disposition home or self-care (01) ==
LOC: ER 13:01
DX: M62.830 Muscle spasm of back (principal); I10 Essential (primary) hypertension; E11.22 Type 2 diabetes mellitus with diabetic chronic kidney disease; I13.0 Hypertensive heart and chronic kidney disease with heart failure and stage 1 through stage 4 chronic kidney disease, or unspecified chronic kidney disease; N18.9 Chronic kidney disease, unspecified; I50.9 Heart failure, unspecified; E03.9 Hypothyroidism, unspecified; I48.91 Unspecified atrial fibrillation; Z79.82 Long term (current) use of aspirin; Z88.2 Allergy status to sulfonamides; Z88.5 Allergy status to narcotic agent; Z88.8 Allergy status to other drugs, medicaments and biological substances
CPT/HCPCS: 85025; 36415; 82565; 81003; 80053; 74176; J0696

== ENCOUNTER 2021-05-10 08:20 | Inpatient (IN) | payer OTHER, MEDICARE ==
--- OUTSIDE RECORDS SUMMARY | 2021-05-10 08:26 | XMS REPORT | Continuity of Care Document ---
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 (chronic (chronic [facility] - obstructiv obstructiv Me dical e e Center pulmonary pulmonary disease) disease) GERD GERD Disease Active [facility] (gastroeso (gastroeso [facility] reflux Center disease) disease) Respirator Respirator Disease Active C [facility] y y [facility] - insufficie insufficie Me dical ncy ncy Center Pacemaker Pacemaker Disease Active [facility] Allergies, Adverse Reactions, Alerts Allergy Allergy Status Severity Reaction(s) Onset Inactive Treating Comm ents Source Name Type Date Date Clinician Atenolol Propensi [facility] - adverse 00:00: Medical reaction 00 [place] Morphine Propensi Active [place] to [facility] of the [facility] - adverse 00:00: face Medical reaction 00 [place] Simvasta Propensi Active [facility] to 6 [facility] - adverse 00:00: Medical reaction 00 [place] Sulfa Propensi Active [place] [facility] (Sulfona ty to 03-11 T[facility] - mide adverse 00:00: Medical Antibiot reaction 00 Center ics) s Ticlopid Propensi Active [facility] to 604 [facility] - adverse 00:00: Medical reaction 00 [place] Social History Social Habit Start Date Stop Date Quantity Comments Source History of tobacco Smoker [facility] - use [facility] Sex Assigned At [facility] Cigarettes smoked 2018-06-19 2018-06-19 [facility] - current (pack per 00:00:00 00:00:00 Medical Center day) - Reported Cigarette 2018-06-19 2018-06-19 [facility] - pack-years 00:00:00 00:00:00 [facility] Tobacco use and 2018-06-19 2018-06-19 Never used [...] 4-17 daily. [facility] - MG tablet 00:00: [facility] 00 Center Procedures This patient has no known procedures. Plan of Care Planned Activity Planned Date Details Comments Source Future Scheduled 2021-06-[address] [facility] - Test 00:00:00 (Season Ended) [code = [facility] INFLUENZA VACCINE (Season Ended)] Future Scheduled 2020-10-[address] [facility] - Test 00:00:00 (12+) [code = Medical Center DEPRESSION SCREENING (12+)] Future Scheduled 2019-12-[address] Angel[facility] kes - Test 00:00:00 measurement [facility] (procedure) [code = 94350678] Future Scheduled 2000-11-[address] [facility] - Test 00:00:00 WELLNESS (YEAR 2 or Medical Center FIRST YEAR if no IPPE) [code = MEDICARE ANNUAL WELLNESS (YEAR 2 or FIRST YEAR if no IPPE)] Future Scheduled 1999 PNEUMOCOCCAL 65+ YRS [facility] - Test 00:00:00 (1 of 1 - Medical Center [id number] PCV13) [code = PNEUMOCOCCAL 65+ YRS (1 of 1 - [id number] PCV13)] Future Scheduled 1984 SHINGLES VACCINES (1 [...] 00:00:00 examination Medical Center (regime/therapy) [code = 369354441] Future Scheduled 1944 Urine screening for [facility] - Test 00:00:00 protein (procedure) Medical Center [code = 654440666] Results Test Description Test Time Test Comments Results Result Comments Source POCT-GLUCOSE METER 2019-06-19 07:53:00 Test Item Value Reference Range Interpretation Comme nts POC-GLUCOSE METER (BEAKER) (test 131 mg/dL 70-110 H TESTED AT [facility] [address] code = 1538) [facility] 7703 0 BASIC METABOLIC [id number] 06:08:00 Test Item Value Reference Range Interpretation [...] PATIEN TS. CBC W/PLT COUNT & AUTO [id number] 05:33:00 Test Item Value Reference Range Interpretation [...] PERCENT (BEAKER) (test code = 2801) POCT-GLUCOSE [id number] 02:04:00 Test Item Value Reference Range Interpretation Comments POC-GLUCOSE METER 143 mg/dL 70-110 H TESTED AT [facility] 67 (BEAKER) (test code = [place] 1538) [address] POCT-GLUCOSE [id number] 17:20:00 Test Item Value Reference Range Interpretation Comments POC-GLUCOSE METER 148 mg/dL 70-110 H TESTED AT [place] [address] (BEAKER) (test code = OTILIA Grady [facility] 1538) [address] POCT-GLUCOSE [id number] 13:03:00 Test Item Value Reference Range Interpretation Comments POC-GLUCOSE METER 179 mg/dL 70-110 H TESTED AT [place] [address] (BEAKER) ([facility] = [facility] 1538) [address] POCT-GLUCOSE [id number] 08:04:00 Test Item Value Reference Range Interpretation Comments POC-GLUCOSE METER 82 mg/dL 70-110 TESTED AT [place] [address] (BEAKER) (test code = [facility] [address] 1538) [id number] 06:10:00 Test Item Value Reference Range Interpretation Comments MAGNESIUM (BEAKER) (test code = 1.9 mg/dL 1.6-2.6 627) BASIC METABOLIC [id number] 06:10:00 Test Item Value Reference Range Interpretation [...] PATIEN TS. CBC W/PLT COUNT & AUTO [id number] 05:25:00 Test Item Value Reference Range Interpretation [...] PERCENT (BEAKER) (test code = 2801) POCT-GLUCOSE [id number] 00:02:00 Test Item Value Reference Range Interpretation Comments POC-GLUCOSE METER 191 mg/dL 70-110 H TESTED AT [place] [address] (BEAKER) (test code = [facility] 1538) [address] POCT-GLUCOSE [id number] 17:16:00 Test Item Value Reference Range Interpretation Comments POC-GLUCOSE METER 170 mg/dL 70-110 H TESTED AT [place] [address] ([facility]) (test code = [facility] Miguel A [facility] 1538) [address] POCT-GLUCOSE [id number] 09:03:00 Test Item Value Reference Range Interpretation Comments POC-GLUCOSE METER 97 mg/dL 70-110 TESTED AT [place] [address] (BEAKER) (test code = [facility] Miguel A [facility] [address] 1538) [id number] 07:03:00 Test Item Value Reference Range Interpretation Comments MAGNESIUM (BEAKER) (test code = 1.9 mg/dL 1.6-2.6 627) BASIC METABOLIC [id number] 07:03:00 Test Item Value Reference Range Interpretation [...] S NOT APPLICABLE FOR DIALYSIS PATIEN TS. [id number] 07:03:00 Test Item Value Reference Range Interpretation Comments LIPASE (BEAKER) (test code = 749) 101 U/L 8-78 H CBC W/PLT COUNT & AUTO [id number] 06:46:00 Test Item Value Reference Range Interpretation [...] PERCENT (BEAKER) (test code = 2801) POCT-GLUCOSE [id number] 22:21:00 Test Item Value Reference Range Interpretation Comments POC-GLUCOSE METER 103 mg/dL 70-110 TESTED AT [place] [address] ([facility]) (test code = [facility] 1538) [address] POCT-GLUCOSE [id number] 17:07:00 Test Item Value Reference Range Interpretation Comments POC-GLUCOSE METER 147 mg/dL 70-110 H TESTED AT [place] [address] ([facility]) (test code = [facility] 1538) [address] POCT-GLUCOSE [id number] 09:05:00 Test Item Value Reference Range Interpretation Comments POC-GLUCOSE METER 117 mg/dL 70-110 H TESTED AT [place] [address] ([facility]) (test code = [facility] 1538) [address] CBC W/PLT COUNT & AUTO [id number] 07:06:00 Test Item Value Reference Range Interpretation [...] 0-1 PERCENT (BEAKER) (test code = 2801) [id number] 06:38:00 Test Item Value Reference Range Interpretation Comments MAGNESIUM (BEAKER) 2.0 mg/dL 1.6-2.6 Specimen slightly (test code = 627) hemolyzed BASIC METABOLIC [id number] 06:38:00 Test Item Value Reference Range Interpretation [...] APPLICABLE FOR DIALYSIS PATIEN TS. HEPATIC FUNCTION [id number] 06:38:00 Test Item Value Reference Range Interpretation [...] Specimen slightly (test code = 347) hemolyzed [id number] 06:38:00 Test Item Value Reference Range Interpretation Comments LIPASE (BEAKER) (test code = 749) 122 U/L 8-78 H POCT-GLUCOSE [id number] 21:48:00 Test Item Value Reference Range Interpretation Comments POC-GLUCOSE METER 102 mg/dL 70-110 TESTED AT [facility] 67 ([facility]) (test code = [facility] Miguel A [facility] 1538) [address] POCT-GLUCOSE [id number] 17:46:00 Test Item Value Reference Range Interpretation Comments POC-GLUCOSE METER 145 mg/dL 70-110 H TESTED AT [place] [address] ([facility]) (test code = [facility] 1538) 65796 POCT-GLUCOSE [id number] 12:35:00 Test Item Value Reference Range Interpretation Comments POC-GLUCOSE METER 158 mg/dL 70-110 H TESTED AT [place] [address] ([facility]) (test code = [facility] 1538) 96654 POCT-GLUCOSE [id number] 07:47:00 Test Item Value Reference Range Interpretation Comments POC-GLUCOSE METER 119 mg/dL 70-110 H TESTED AT [place] [address] ([facility]) (test code = [facility] 1538) [address] [id number] 06:40:00 Test Item Value Reference Range Interpretation Comments LIPASE (BEAKER) (test code = 749) 165 U/L 8-78 H BASIC METABOLIC [id number] 06:40:00 Test Item Value Reference Range Interpretation [...] APPLICABLE FOR DIALYSIS PATIEN TS. HEPATIC FUNCTION [id number] 06:40:00 Test Item Value Reference Range Interpretation [...] 347) hemolyzed CBC W/PLT COUNT & AUTO [id number] 05:57:00 Test Item Value Reference Range Interpretation [...] PERCENT (BEAKER) (test code = 2801) POCT-GLUCOSE [id number] 21:35:00 Test Item Value Reference Range Interpretation Comments POC-GLUCOSE METER 160 mg/dL 70-110 H TESTED AT [place] [address] ([facility]) (test code = OTILIA Grady [facility] 1538) 18129 POCT-GLUCOSE [id number] 18:42:00 Test Item Value Reference Range Interpretation Comments POC-GLUCOSE METER 119 mg/dL 70-110 H TESTED AT [place] [address] ([facility]) (test code = [facility] 1538) 36[address] POCT-GLUCOSE [id number] 14:33:00 Test Item Value Reference Range Interpretation Comments POC-GLUCOSE METER 80 mg/dL 70-110 TESTED AT [place] [address] ([facility]) (test code = [facility] [address] 1538) POCT-GLUCOSE [id number] 12:29:00 Test Item Value Reference Range Interpretation Comments POC-GLUCOSE METER 81 mg/dL 70-110 TESTED AT [facility] 6720 (BEAKER) (test code = [place] [address] 1538) RAD, CHEST, 1 VIEW, NON [id number] 09:58:00Reason for exam:->copdShould this be performed at the bedside?->YesFINAL REPORT RAD, CHEST, 1 VIEW, NON DEPT INDICATION: copd COMPARISON: March 21, 2018 FINDINGS: Portable frontal view of the chest. IMPRESSION: Support Lines: None. Lungs and pleura: Clear lungs. No pneumothorax.Heart and mediastinum: Stable contours. Stable pacer apparatus.Additional findings: None. Signed: JR Jerome Robert MDReport Verified Date/Time: 06/14/2019 09:58:25 Reading Location: [address] Neuro Reading Room HEMOGLOBIN [id number] 09:20:00 Test Item Value Reference Range Interpretation Comments HEMOGLOBIN A1C (BEAKER) (test code = 7.1 % 4.3-6.1 H 368) LIPID [id number] 06:36:00 Test Item Value Reference Range Interpretation [...] 130-159 High 160-189 Very High >=190BASIC METABOLIC [id number] 06:36:00 Test Item Value Reference Range Interpretation [...] APPLICABLE FOR DIALYSIS PATIEN TS. HEPATIC FUNCTION [id number] 06:36:00 Test Item Value Reference Range Interpretation [...] (test code = 19 U/L 6-55 347) [id number] 06:36:00 Test Item Value Reference Range Interpretation Comments AMYLASE (BEAKER) (test code = 349) 368 U/L 25-125 H [id number] 06:36:00 Test Item Value Reference Range Interpretation Comments LIPASE (BEAKER) (test code = 749) 451 U/L 8-78 H POCT-GLUCOSE [id number] 06:34:00 Test Item Value Reference Range Interpretation Comments POC-GLUCOSE METER 73 mg/dL 70-110 TESTED AT [place] [address] (BEAKER) (test code = [place] [address] 1538) B-TYPE NATRIURETIC FACTOR (BNP)2019-06-14 06:32:00 Test Item Value Reference Range Interpretation Comments B-TYPE NATRIURETIC PEPTIDE (BEAKER) 376 pg/mL 0-100 H (test code = 700) CBC W/PLT COUNT & AUTO [id number] 06:23:00 Test Item Value Reference Range Interpretation [...] PERCENT (BEAKER) (test code = 2801) PROTHROMBIN [id number] 06:21:00 Test Item Value Reference Range Interpretation [...] is2.5-3.5 for patients wiht mechanical heart valves.POCT-GLUCOSE [id number] 00:39:00 Test Item Value Reference Range Interpretation Comments POC-GLUCOSE METER 72 mg/dL 70-110 TESTED AT [place] [address] ([facility]) (test code = OTILIA Grady [facility] [address] 1538) POCT-LACTIC ACID, [id number] 00:00:00 Test Item Value Reference Range Interpretation Comments POC-LACTIC ACID, 0.7 mmol/L 0.4-1.[address] [facility] [address] (BEAKER) [place] (test code = 2804) [address] POCT-BLOOD GASES, [id number] 00:00:00 Test Item Value Reference Range Interpretation Comments TEMP, CELSIUS-POC 37.4 (BEAKER) (test code = 1834) FIO2-POC (BEAKER) 28 TESTED AT [place] [address] (test code = 1835) [place] [address] PH, ARTERIAL-POC 7.376 7.350-7.450 (BEAKER) (test code [...] H ARTERIAL-POC (BEAKER) (test code = 1841) [id number] 00:00:00 Test Item Value Reference Range Interpretation Comments POC-SODIUM (BEAKER) 142 meq/L 135-148 TESTED A [place] [address] (test code = 1542) NOY Tolent[place] [facility] [address] [id number] 00:00:00 Test Item Value Reference Range Interpretation Comments POC-POTASSIUM 3.5 meq/L 3.6-5.5 L TESTED AT [place] [address] ([facility]) (test code [facility] [address] = 1540) [id number] 00:00:00 Test Item Value Reference Range Interpretation Comments POC-GLUCOSE ([facility]) 80 mg/dL 70-110 TESTED AT [place] [address] (test code = 1855) NOY [place] [facility] [address] POCT-CALCIUM [id number] 00:00:00 Test Item Value Reference Range Interpretation Comments POC-CALCIUM IONIZED 1.17 mmol/L 1.12-1.27 TESTED A [place] [address] ([facility]) (test code = [facility] 1537) [address] [id number] 00:00:00 Test Item Value Reference Range Interpretation Comments POC-HEMATOCRIT 50 % 36-45 H TESTED AT [place] [address] ([facility]) (test code = [facility] Miguel A [facility] [address] 5611) [id number] 00:00:00 Test Item Value Reference Range Interpretation Comments POC-HEMOGLOBIN 17.0 g/dL 12.0-15.0 H TESTED AT [place] [address] (BEAKER) (test code [facility] [place] = 1856) 632[address]BOBKCL AT [facility] [address] [place] [address] POCT-GLUCOSE [id number] 20:48:00 Test Item Value Reference Range Interpretation Comments POC-GLUCOSE METER 80 mg/dL 70-110 TESTED AT [facility] 67[address] (BEAKER) (test code = OTILIA Grady [facility] [address] 1538) AFB CULTURE + [id number] 00:11:00 Test Item Value Reference Range Interpretation Comments CULTURE (BEAKER) (test No acid-fast bacilli code = 1095) isolated in 42 days AFB SMEAR (BEAKER) No acid fast bacilli (test code = 994) seen FUNGUS CULTURE + [id number] 17:08:00 Test Item Value Reference Range Interpretation Comments CULTURE (BEAKER) (test No fungus isolated in code = 1095) 28 days FUNGUS SMEAR (BEAKER) No fungi seen (test code = 1406) AFB CULTURE + [id number] 02:56:00 Test Item Value Reference Range Interpretation Comments CULTURE (BEAKER) (test No acid-fast bacilli code = 1095) isolated in 42 days AFB SMEAR (BEAKER) No acid fast bacilli (test code = 994) seen ANAEROBIC [id number] 17:45:00 Test Item Value Reference Range Interpretation Comments CULTURE (BEAKER) (test No anaerobes isolated code = 1095) BLOOD [id number] 17:43:00 Test Item Value Reference Range Interpretation Comments CULTURE (BEAKER) (test No growth in 5 days code = 1095) BLOOD [id number] 17:43:00 Test Item Value Reference Range Interpretation Comments CULTURE (BEAKER) (test No growth in 5 days code = 1095) POCT-GLUCOSE [id number] 12:38:00 Test Item Value Reference Range Interpretation Comments POC-GLUCOSE METER 147 mg/dL 70-110 H TESTED AT [facility] 6720 ([facility]) (test code = OTILIA Grady [facility] 1538) [address] WOUND CULTURE + GRAM [id number] 10:46:00 Test Item Value Reference Interpretation Comments [...] gram negative (BEAKER) (test code rods = 224082) SURGICALLY OBTAINED CULTURE + GRAM [id number] 08:30:00 Test Item Value Reference Range Interpretation Comments CULTURE (BEAKER) (test code No growth = 1095) GRAM STAIN RESULT (BEAKER) No WBCs (test code = 1123) GRAM STAIN RESULT (BEAKER) No organisms seen (test code = 31109) POCT-GLUCOSE [id number] 07:23:00 Test Item Value Reference Range Interpretation Comments POC-GLUCOSE METER 97 mg/dL 70-110 TESTED AT [place] [address] ([facility]) (test code = [facility] [address] 1538) POCT-GLUCOSE [id number] 22:04:00 Test Item Value Reference Range Interpretation Comments POC-GLUCOSE METER 177 mg/dL 70-110 H TESTED AT [place] [address] ([facility]) (test code = [facility] 1538) [address]117 POCT-GLUCOSE [id number] 17:38:00 Test Item Value Reference Range Interpretation Comments POC-GLUCOSE METER 232 mg/dL 70-110 H TESTED AT [place] [address] ([facility]) (test code = [facility] 1538) [address]79 POCT-GLUCOSE [id number] 12:40:00 Test Item Value Reference Range Interpretation Comments POC-GLUCOSE METER 139 mg/dL 70-110 H TESTED AT [place] [address] ([facility]) (test code = OTILIA Grady [facility] 1538) [address] POCT-GLUCOSE [id number] 07:47:00 Test Item Value Reference Range Interpretation Comments POC-GLUCOSE METER 96 mg/dL 70-110 TESTED AT [place] [address] ([facility]) (test code = OTILIA Grady [facility] [address] 1538) POCT-GLUCOSE [id number] 04:52:00 Test Item Value Reference Range Interpretation Comments POC-GLUCOSE METER 112 mg/dL 70-110 H TESTED AT [place] [address] ([facility]) (test code = OTILIA Grady [facility] 1538) [address] POCT-GLUCOSE [id number] 23:28:00 Test Item Value Reference Range Interpretation Comments POC-GLUCOSE METER 114 mg/dL 70-110 H TESTED AT [place] [address] ([facility]) (test code = OTILIA Grady [facility] 1538) [address] POCT-GLUCOSE [id number] 17:12:00 Test Item Value Reference Range Interpretation Comments POC-GLUCOSE METER 155 mg/dL 70-110 H TESTED AT [place] [address] ([facility]) (test code = OTILIA Grady [facility] 1538) [address] POCT-GLUCOSE [id number] 12:17:00 Test Item Value Reference Range Interpretation Comments POC-GLUCOSE METER 163 mg/dL 70-110 H TESTED AT [place] [address] ([facility]) (test code = OTILIA Grady [facility] 1538) [address] FUNGUS CULTURE + [id number] 09:29:00 Test Item Value Reference Range Interpretation Comments CULTURE ([facility]) (test No fungus isolated in code = 1095) 28 days FUNGUS SMEAR ([facility]) <1+ hyphal elements (test code = 1406) seen See smear results.POCT-GLUCOSE [id number] 21:47:00 Test Item Value Reference Range Interpretation Comments POC-GLUCOSE METER 211 mg/dL 70-110 H TESTED AT [place] [address] ([facility]) (test code = OTILIA Grady [facility] 1538) [address] POCT-GLUCOSE [id number] 17:07:00 Test Item Value Reference Range Interpretation Comments POC-GLUCOSE METER 160 mg/dL 70-110 H TESTED AT [facility] 6720 (BEAKER) (test code = OTIL[place] 1538) [address] POCT-GLUCOSE [id number] 11:56:00 Test Item Value Reference Range Interpretation Comments POC-GLUCOSE METER 108 mg/dL 70-110 TESTED AT [facility] 6720 (BEAKER) (test code = [facility] Miguel A [place] 1538) [address] COMPREHENSIVE METABOLIC [id number] 23:00:00 Test Item Value Reference Range Interpretation [...] NOT APPLICABLE FOR DIALYSIS PATIEN TS. PROTHROMBIN [id number] 22:52:00 Test Item Value Reference Range Interpretation [...] LYMPHOCYTES ABSOLUTE COUNT 1.37 K/ L 1.18-3.74 ([facility]) (test code = 414) MONOCYTES ABSOLUTE COUNT (AKER) 0.73 K/ L 0.24-0.36 H (test code = 415) EOSINOPHILS ABSOLUTE COUNT 0.12 K/ L 0.04-0.36 ([facility]) (test code = 416) BASOPHILS ABSOLUTE COUNT ([facility]) 0.08 K/ L 0.01-0.08 (test code = 417) IMMATURE GRANULOCYTES-RELATIVE 1 % 0-1 PERCENT ([facility]) (test code = 2801) POCT-GLUCOSE [id number] 22:47:00 Test Item Value Reference Range Interpretation Comments POC-GLUCOSE METER 196 mg/dL 70-110 H TESTED AT [place] [address] ([facility]) (test code = [facility] 1538) 179[address] POCT-GLUCOSE [id number] 17:34:00 Test Item Value Reference Range Interpretation Comments POC-GLUCOSE METER 261 mg/dL 70-110 H TESTED AT [place] [address] ([facility]) (test code = [facility] 1538) [address] POCT-GLUCOSE [id number] 16:52:00 Test Item Value Reference Range Interpretation Comments POC-GLUCOSE METER 254 mg/dL 70-110 H TESTED AT [place] [address] ([facility]) (test code = [facility] 1538) [address] POCT-GLUCOSE [id number] 12:24:00 Test Item Value Reference Range Interpretation Comments POC-GLUCOSE METER 168 mg/dL 70-110 H TESTED AT [place] [address] ([facility]) (test code = [facility] [employer] [facility] 1538) [address] POCT-GLUCOSE [id number] 08:52:00 Test Item Value Reference Range Interpretation Comments POC-GLUCOSE METER 139 mg/dL 70-110 H TESTED AT [place] [address] ([facility]) (test code = [facility] [employer] [facility] 1538) [address] CT, [id number] 08:32:00S/p aortic-bilateral femoral bypass with right groin [...] MDReport Verified Date/Time: 04/21/2018 08:32:26 Reading Location: [facility] [id number] Consult Reading Room POCT-GLUCOSE [id number] 21:51:00 Test Item Value Reference Range Interpretation Comments POC-GLUCOSE METER 132 mg/dL 70-110 H TESTED AT [place] [address] ([facility]) (test code = [facility] 1538) [id number] POCT-GLUCOSE [id number] 16:54:00 Test Item Value Reference Range Interpretation Comments POC-GLUCOSE METER 126 mg/dL 70-110 H TESTED AT [place] [address] ([facility]) (test code = [facility] 1538) 7[address] POCT-GLUCOSE [id number] 12:41:00 Test Item Value Reference Range Interpretation Comments POC-GLUCOSE METER 163 mg/dL 70-110 H TESTED AT [place] [id number] ([facility]) (test code = [facility] 1538) [address]662 POCT-GLUCOSE [id number] 07:37:00 Test Item Value Reference Range Interpretation Comments POC-GLUCOSE METER 96 mg/dL 70-110 TESTED AT [place] [address] ([facility]) (test code = [facility] [address] 1538) BASIC METABOLIC [id number] 06:21:00 Test Item Value Reference Range Interpretation [...] PATIEN TS. CBC W/PLT COUNT & AUTO [id number] 05:46:00 Test Item Value Reference Range Interpretation [...] PERCENT (BEAKER) (test code = 2801) POCT-GLUCOSE [id number] 21:11:00 Test Item Value Reference Range Interpretation Comments POC-GLUCOSE METER 152 mg/dL 70-110 H TESTED AT [facility] 67 ([facility]) [facility] 1538[facility] 15186 POCT-GLUCOSE [id number] 16:41:00 Test Item Value Reference Range Interpretation Comments POC-GLUCOSE METER 100 mg/dL 70-110 TESTED AT [place] [address] ([facility]) ([facility] = [facility] 1538) [address] POCT-GLUCOSE [id number] 13:05:00 Test Item Value Reference Range Interpretation Comments POC-GLUCOSE METER 127 mg/dL 70-110 H TESTED AT [place] [address] ([facility]) (test code = [facility] Miguel A [facility] 1538) 48795 TSH/FREE T4 IF [id number] 12:05:00 Test Item Value Reference Range Interpretation Comments THYROID STIMULATING HORMONE 2.75 uIU/mL 0.35-4.94 (BEAKER) (test code = 772) [id number] 11:48:00 Test Item Value Reference Range Interpretation Comments MAGNESIUM (BEAKER) (test code = 2.2 mg/dL 1.6-2.6 627) BASIC METABOLIC [id number] 11:48:00 Test Item Value Reference Range Interpretation [...] NOT APPLICABLE FOR DIALYSIS PATIEN TS. POCT-GLUCOSE [id number] 11:40:00 Test Item Value Reference Range Interpretation Comments POC-GLUCOSE METER 118 mg/dL 70-110 H TESTED AT [facility] 6720 ([facility]) (test code = [place] 1538) [address] CBC W/PLT COUNT & AUTO [id number] 11:30:00 Test Item Value Reference Range Interpretation [...] PERCENT (BEAKER) (test code = 2801) ANAEROBIC [id number] 02:34:00 Test Item Value Reference Range Interpretation Comments CULTURE (BEAKER) (test No anaerobes isolated code = 1095) SURGICALLY OBTAINED CULTURE + GRAM [id number] 14:05:00 Test Item Value Reference Range Interpretation Comments CULTURE (BEAKER) (test code No growth = 1095) GRAM STAIN RESULT (BEAKER) 1+ WBCs (test code = 1123) GRAM STAIN RESULT (BEAKER) No organisms seen (test code = 35467) POCT-GLUCOSE [id number] 12:39:00 Test Item Value Reference Range Interpretation Comments POC-GLUCOSE METER 131 mg/dL 70-110 H TESTED AT [facility] 6720 (BEAKER) (test code = [place] 1538) [address] POCT-GLUCOSE [id number] 08:01:00 Test Item Value Reference Range Interpretation Comments POC-GLUCOSE METER 106 mg/dL 70-110 TESTED AT [facility] 6720 (BEAKER) (test code = [place] 1538) [address] BASIC METABOLIC [id number] 06:21:00 Test Item Value Reference Range Interpretation [...] PATIEN TS. CBC W/PLT COUNT & AUTO [id number] 05:48:00 Test Item Value Reference Range Interpretation [...] PERCENT (BEAKER) (test code = 2801) POCT-GLUCOSE [id number] 21:47:00 Test Item Value Reference Range Interpretation Comments POC-GLUCOSE METER 161 mg/dL 70-110 H TESTED AT [facility] 6720 (BEAKER) (test code = [place] 1538) 265[address] POCT-GLUCOSE [id number] 17:08:00 Test Item Value Reference Range Interpretation Comments POC-GLUCOSE METER 189 mg/dL 70-110 H TESTED AT [facility] 6720 (BEAKER) (test code = [place] 1538) [address] POCT-GLUCOSE [id number] 11:12:00 Test Item Value Reference Range Interpretation Comments POC-GLUCOSE METER 197 mg/dL 70-110 H TESTED AT [facility] 6720 (BEAKER) (test code = [place] 1538) [address] POCT-GLUCOSE [id number] 07:35:00 Test Item Value Reference Range Interpretation Comments POC-GLUCOSE METER 113 mg/dL 70-110 H TESTED AT [facility] 6720 (BEAKER) (test code = [place] 1538) [address] BASIC METABOLIC [id number] 06:23:00 Test Item Value Reference Range Interpretation [...] PATIEN TS. CBC W/PLT COUNT & AUTO [id number] 06:12:00 Test Item Value Reference Range Interpretation [...] PERCENT (BEAKER) (test code = 2801) POCT-GLUCOSE [id number] 21:04:00 Test Item Value Reference Range Interpretation Comments POC-GLUCOSE METER 143 mg/dL 70-110 H TESTED AT [facility] 6720 ([facility]) (test code = [place] 1538) [address]39 POCT-GLUCOSE [id number] 17:04:00 Test Item Value Reference Range Interpretation Comments POC-GLUCOSE METER 182 mg/dL 70-110 H TESTED AT [facility] 6720 (BEAKER) (test code = [place] 1538) 155[address] SPIN/CONCENTRATION [id number] 15:07:00 Test Item Value Reference Range Interpretation Comments CONCENTRATION CHARGED (BEAKER) (test Done code = 2657) POCT-GLUCOSE [id number] 11:38:00 Test Item Value Reference Range Interpretation Comments POC-GLUCOSE METER 141 mg/dL 70-110 H TESTED AT [facility] 6720 (BEAKER) (test code = [place] [facility] 1538) 79993 POCT-GLUCOSE [id number] 08:13:00 Test Item Value Reference Range Interpretation Comments POC-GLUCOSE METER 122 mg/dL 70-110 H TESTED AT [facility] 6720 (BEAKER) (test code = [place] [facility] 1538) [address] BASIC METABOLIC [id number] 05:20:00 Test Item Value Reference Range Interpretation [...] PATIEN TS. CBC W/PLT COUNT & AUTO [id number] 04:58:00 Test Item Value Reference Range Interpretation [...] PERCENT (BEAKER) (test code = 2801) POCT-GLUCOSE [id number] 21:18:00 Test Item Value Reference Range Interpretation Comments POC-GLUCOSE METER 147 mg/dL 70-110 H TESTED AT [facility] 6720 (BEAKER) (test code = [place] 1539) [address] TISSUE [id number] 15:55:00Surgical Pathology Report Case: [id number] Authorizing Provider: Billy Mcmanus, Collected: 03/18/2018 1046 Ordering Location: [facility] Received: 03/18/2018 1131 PERIOPERATIVE SERVICES Pathologist: Chris Caraballo MD Specimen: Plaque, AORTIC PLAQUE AORTA, ATHERECTOMY:CALCIFIC ATHEROSCLEROTIC PLAQUE Signing Pathologist Direct Phone Line: [phone] signed by Chris Caraballo MD on 03/25/2018 at 3:55 [id number]; [id number] plaque Received in saline labeled "plaque", description "aortic plaque" is a 4.5 x 3.5 x 0.6 cm aggregate of felix-white to yellow-panchal, rubbery, calcified fibrous tissue.Hot Wound Spring Production Supervisor sections are submitted in cassette A1 for decalcification. DB/ew PerformedPOTASSIUM-STAT [id number] 11:04:00 Test Item Value Reference Range Interpretation Comments POTASSIUM (BEAKER) (test code = 3.0 meq/L 3.6-5.5 L 379) HGB/HCT (H&H) - STAT [id number] 11:04:00 Test Item Value Reference Range Interpretation Comments HEMOGLOBIN (BEAKER) (test code = 11.2 g/dL 12.0-15.0 L 410) HEMATOCRIT (BEAKER) (test code = 33.0 % 36.0-45.0 L 411) GLUCOSE-STAT [id number] 11:04:00 Test Item Value Reference Range Interpretation Comments GLUCOSE RANDOM (BEAKER) (test code 116 mg/dL 70-110 H = 652) POCT-GLUCOSE [id number] 07:01:00 Test Item Value Reference Range Interpretation Comments POC-GLUCOSE METER 91 mg/dL 70-110 TESTED AT [facility] 6720 (BEAKER) (test code = [place] [facility] [address] 1538) BASIC METABOLIC [id number] 05:12:00 Test Item Value Reference Range Interpretation [...] PATIEN TS. CBC W/PLT COUNT & AUTO [id number] 04:36:00 Test Item Value Reference Range Interpretation [...] PERCENT (BEAKER) (test code = 2801) POCT-GLUCOSE [id number] 21:06:00 Test Item Value Reference Range Interpretation Comments POC-GLUCOSE METER 152 mg/dL 70-110 H TESTED AT [facility] 6720 (BEAKER) ([facility] = [facility] 1538) 7[address] POCT-GLUCOSE [id number] 17:43:00 Test Item Value Reference Range Interpretation Comments POC-GLUCOSE METER 155 mg/dL 70-110 H TESTED AT [facility] 6720 (BEAKER) (test code = [facility] Miguel A [facility] 1538) 39954 POCT-GLUCOSE [id number] 12:30:00 Test Item Value Reference Range Interpretation Comments POC-GLUCOSE METER 167 mg/dL 70-110 H TESTED AT [facility] 6720 (BEAKER) (test code = [facility] Miguel A [facility] 1538) 98779 POCT-GLUCOSE [id number] 07:13:00 Test Item Value Reference Range Interpretation Comments POC-GLUCOSE METER 111 mg/dL 70-110 H TESTED AT [facility] 6720 (BEAKER) (test code = [facility] Miguel A [facility] 1538) 12587 BASIC METABOLIC [id number] 05:33:00 Test Item Value Reference Range Interpretation [...] PATIEN TS. CBC W/PLT COUNT & AUTO [id number] 04:58:00 Test Item Value Reference Range Interpretation [...] PERCENT (BEAKER) (test code = 2801) POCT-GLUCOSE [id number] 20:59:00 Test Item Value Reference Range Interpretation Comments POC-GLUCOSE METER 178 mg/dL 70-110 H TESTED AT [place] [address] ([facility]) (test code = [facility] 1538) 68489 POCT-GLUCOSE [id number] 18:18:00 Test Item Value Reference Range Interpretation Comments POC-GLUCOSE METER 137 mg/dL 70-110 H TESTED AT [place] [address] ([facility]) (test code = [facility] 1538) 24836 RAD, SPINE, LUMBAR, COMPLETE (MIN 4 VIEWS)2018-03-23 [...] MDReport Verified Date/Time: 03/23/2018 16:25:16 Reading Location: [facility] B1 C013X Ortho Consult Reading Room Electronically signed by: Ruby DANIEL 03/23/2018 04:25 PMSPUTUM CULTURE + GRAM [id number] 10:41:00 Test Item Value Reference Range Interpretation Comments CULTURE (BEAKER) 3+ Normal respiratory (test code = 1095) anu present GRAM STAIN RESULT <1+ WBCs (BEAKER) (test code = 1123) GRAM STAIN RESULT 10-15 epithelial cells (BEAKER) (test code = 48591) GRAM STAIN RESULT 1+ gram positive cocci (BEAKER) (test code = in pairs 25182) POCT-GLUCOSE [id number] 08:09:00 Test Item Value Reference Range Interpretation Comments POC-GLUCOSE METER 94 mg/dL 70-110 TESTED AT [facility] 6720 (BEAKER) (test code = [place] [address] 1538) BASIC METABOLIC [id number] 06:23:00 Test Item Value Reference Range Interpretation [...] PATIEN TS. CBC W/PLT COUNT & AUTO [id number] 06:00:00 Test Item Value Reference Range Interpretation [...] PERCENT (BEAKER) (test code = 2801) POCT-GLUCOSE [id number] 21:32:00 Test Item Value Reference Range Interpretation Comments POC-GLUCOSE METER 238 mg/dL 70-110 H TESTED AT [facility] 6720 (BEAKER) (test code = [place] 1538) [address] POCT-GLUCOSE [id number] 12:11:00 Test Item Value Reference Range Interpretation Comments POC-GLUCOSE METER 102 mg/dL 70-110 TESTED AT [facility] 6720 (BEAKER) (test code = [place] [facility] 1538) 87002 POCT-GLUCOSE [id number] 07:49:00 Test Item Value Reference Range Interpretation Comments POC-GLUCOSE METER 93 mg/dL 70-110 TESTED AT [facility] 6720 (BEAKER) (test code = [place] [facility] [address] 1538) BASIC METABOLIC [id number] 06:14:00 Test Item Value Reference Range Interpretation [...] PATIEN TS. CBC W/PLT COUNT & AUTO [id number] 05:44:00 Test Item Value Reference Range Interpretation [...] PERCENT (BEAKER) (test code = 2801) POCT-GLUCOSE [id number] 21:06:00 Test Item Value Reference Range Interpretation Comments POC-GLUCOSE METER 116 mg/dL 70-110 H TESTED AT [facility] 6720 (BEAKER) (test code = [place] 1538) [address] POCT-GLUCOSE [id number] 16:33:00 Test Item Value Reference Range Interpretation Comments POC-GLUCOSE METER 138 mg/dL 70-110 H TESTED AT [facility] 6720 ([facility]) (test code = [place] 1538) 12898 POCT-GLUCOSE [id number] 12:15:00 Test Item Value Reference Range Interpretation Comments POC-GLUCOSE METER 150 mg/dL 70-110 H TESTED AT [place] [address] ([facility]) (test code = [place] [facility] 1538) 75725 POCT-GLUCOSE [id number] 09:03:00 Test Item Value Reference Range Interpretation Comments POC-GLUCOSE METER 101 mg/dL 70-110 TESTED AT [place] [address] ([facility]) (test code = [place] [facility] 1538) 10184 RAD, CHEST, 1 VIEW, NON [id number] 08:03:00Reason for exam:->post cardiovascular procedureShould this be [...] Turcios Verified Date/Time: 03/21/2018 08:03:21 Reading Location: [facility] Diagnostic Imaging Reading Room - [place] [address] [id number] 04:37:00 Test Item Value Reference Range Interpretation Comments MAGNESIUM (BEAKER) 1.9 mg/dL 1.6-2.6 Specimen slightly (test code = 627) hemolyzed BASIC METABOLIC [id number] 04:37:00 Test Item Value Reference Range Interpretation [...] PATIEN TS. CBC W/PLT COUNT & AUTO [id number] 04:27:00 Test Item Value Reference Range Interpretation [...] PERCENT (BEAKER) (test code = 2801) POCT-GLUCOSE [id number] 20:59:00 Test Item Value Reference Range Interpretation Comments POC-GLUCOSE METER 111 mg/dL 70-110 H TESTED AT [place] [address] ([facility]) (test code = [place] [facility] 1538) [address] POCT-GLUCOSE [id number] 18:33:00 Test Item Value Reference Range Interpretation Comments POC-GLUCOSE METER 101 mg/dL 70-110 TESTED AT [place] [address] ([facility]) (test code = [place] [facility] 1538) [address]247 POCT-GLUCOSE [id number] 16:33:00 Test Item Value Reference Range Interpretation Comments POC-GLUCOSE METER 128 mg/dL 70-110 H TESTED AT [place] [address] ([facility]) (test code = [place] [facility] 1538) 22133 POCT-GLUCOSE [id number] 11:35:00 Test Item Value Reference Range Interpretation Comments POC-GLUCOSE METER 129 mg/dL 70-110 H TESTED AT [place] [address] ([facility]) (test code = [place] [facility] 1538) 7[address] HEMOGLOBIN [id number] 08:58:00 Test Item Value Reference Range Interpretation Comments HEMOGLOBIN A1C (BEAKER) (test code = 6.0 % 4.3-6.1 368) RAD, CHEST, 1 VIEW, NON [id number] 08:06:00Reason for exam:->post cardiovascular procedureShould this be [...] MDReport Verified Date/Time: 03/20/2018 08:06:53 Reading Location: [facility] Radiology Reading Room POCT-GLUCOSE [id number] 06:21:00 Test Item Value Reference Range Interpretation Comments POC-GLUCOSE METER 133 mg/dL 70-110 H TESTED AT [facility] 6720 (BEAKER) (test code = [place] [facility] 1538) [address]408 [id number] 06:00:00 Test Item Value Reference Range Interpretation Comments MAGNESIUM (BEAKER) (test code = 2.0 mg/dL 1.6-2.6 627) BASIC METABOLIC [id number] 06:00:00 Test Item Value Reference Range Interpretation [...] PATIEN TS. CBC W/PLT COUNT & AUTO [id number] 05:39:00 Test Item Value Reference Range Interpretation [...] PERCENT (BEAKER) (test code = 2801) POCT-GLUCOSE [id number] 00:24:00 Test Item Value Reference Range Interpretation Comments POC-GLUCOSE METER 117 mg/dL 70-110 H TESTED AT [facility] 67 ([facility]) (test code = [facility] Miguel A [facility] 1538) [address]99 POCT-GLUCOSE [id number] 17:07:00 Test Item Value Reference Range Interpretation Comments POC-GLUCOSE METER 132 mg/dL 70-110 H TESTED AT [place] [address] ([facility]) (test code = [place] A [facility] 1538) [address] RAD, ABDOMEN/KUB, 1 VIEW [id number] 15:02:00Reason for exam:->nausea and eructationsFINAL REPORT TECHNIQUE: [...] Glass Verified Date/Time: 03/19/2018 15:02:35 Reading Location: [facility] Radiology Reading Room POCT- GLUCOSE [id number] 10:23:00 Test Item Value Reference Range Interpretation Comments POC-GLUCOSE METER 111 mg/dL 70-110 H TESTED AT [facility] 6720 ([facility]) (test code = [place] A [facility] 1538) [address] RAD, CHEST, 1 VIEW, NON [id number] 08:26:00Reason for exam:->post cardiovascular procedureShould this be [...] MDReport Verified Date/Time: 03/19/2018 08:26:26 Reading Location: [facility] Radiology Reading Room POCT-GLUCOSE [id number] 06:09:00 Test Item Value Reference Range Interpretation Comments POC-GLUCOSE METER 120 mg/dL 70-110 H TESTED AT [facility] 6720 (BEAKER) (test code = [place] [facility] 1538) [address]48 POCT-GLUCOSE [id number] 06:09:00 Test Item Value Reference Range Interpretation Comments POC-GLUCOSE METER 120 mg/dL 70-110 H TESTED AT [facility] 6720 (BEAKER) (test code = [facility] Miguel A [facility] 1538) [address] [id number] 04:28:00 Test Item Value Reference Range Interpretation Comments MAGNESIUM (BEAKER) 2.2 mg/dL 1.6-2.6 Specimen slightly (test code = 627) hemolyzed BASIC METABOLIC [id number] 04:28:00 Test Item Value Reference Range Interpretation [...] PATIEN TS. CBC W/PLT COUNT & AUTO [id number] 04:19:00 Test Item Value Reference Range Interpretation [...] (BEAKER) (test code = 2801) BLOOD GAS, [id number] 04:01:00 Test Item Value Reference Range Interpretation [...] code = 1819) 40.0 % BLOOD GAS, [id number] 22:23:00 Test Item Value Reference Range Interpretation [...] (test code = 1819) 40.0 % GLUCOSE-STAT [id number] 22:23:00 Test Item Value Reference Range Interpretation Comments GLUCOSE RANDOM (BEAKER) (test code 140 mg/dL 70-110 H = 652) [id number] 20:01:00 Test Item Value Reference Range Interpretation Comments POTASSIUM (BEAKER) (test code = 3.7 meq/L 3.5-5.1 379) 8 hours after PO replacement [id number] 20:01:00 Test Item Value Reference Range Interpretation Comments MAGNESIUM (BEAKER) (test code = 2.2 mg/dL 1.6-2.6 627) 8 hours after PO replacement completedBLOOD GAS, [id number] 19:27:00 Test Item Value Reference Range Interpretation [...] (test code = 1819) 40.0 % POCT-GLUCOSE [id number] 19:09:00 Test Item Value Reference Range Interpretation Comments POC-GLUCOSE METER 123 mg/dL 70-110 H TESTED AT [place] [address] ([facility] (test code = [place] [facility] 1538) [address] POCT-GLUCOSE [id number] 18:02:00 Test Item Value Reference Range Interpretation Comments POC-GLUCOSE METER 108 mg/dL 70-110 TESTED AT [place] [address] ([facility]) (test code = [place] 1538) [address] POCT-GLUCOSE [id number] 17:06:00 Test Item Value Reference Range Interpretation Comments POC-GLUCOSE METER 103 mg/dL 70-110 TESTED AT [place] [address] ([facility]) (test code = [place] 1538) [address] POCT-GLUCOSE [id number] 16:00:00 Test Item Value Reference Range Interpretation Comments POC-GLUCOSE METER 121 mg/dL 70-110 H TESTED AT [facility] 6720 (BEAKER) (test code = [place] 1538) [address] POCT-GLUCOSE [id number] 15:45:00 Test Item Value Reference Range Interpretation Comments POC-GLUCOSE METER 146 mg/dL 70-110 H TESTED AT [facility] 6720 (BEAKER) (test code = [place] 1538) [address] BLOOD GAS, [id number] 15:25:00 Test Item Value Reference Range Interpretation [...] = 1819) 40.0 % PLATELET AGGREGATION: FUNCTION [id number] 13:34:00 Test Item Value Reference Range Interpretation Comments WEAK ADP 63 % 60-91 RESULT(BEAKER) (test code = 2135) PLATELET FUNCTION 60-100% indicates SCREEN INTERP (BEAKER) normal platelet (test code = 2173) function [id number] Teresa De León MD (BEAKER) (test code = (electronic signature) 4072) PLATELET COUNT AGG 209 K/CU MM 150-450 [...] Garrett Verified Date/Time: 03/18/2018 13:15:44 Reading Location: [facility] B1 C013W Consult Reading Room [id number] 13:04:00 Test Item Value Reference Range Interpretation Comments MAGNESIUM (BEAKER) (test code = 1.8 mg/dL 1.6-2.6 627) BASIC METABOLIC [id number] 13:04:00 Test Item Value Reference Range Interpretation [...] S NOT APPLICABLE FOR DIALYSIS PATIEN TS. [id number] 12:43:00 Test Item Value Reference Range Interpretation Comments PHOSPHORUS (BEAKER) (test code = 3.9 mg/dL 2.3-4.7 604) LACTIC ACID, VENOUS, WHOLE [id number] 12:15:00 Test Item Value Reference Range Interpretation Comments LACTATE BLOOD VENOUS 1.0 mmol/L 0.5-2.2 Specime n slightly (2) (BEAKER) (test hemolyzed code = 2872) Effective 02/09/2016: Units/Reference Range ChangeNew: 0.5-2.2 mmol/L Previous: 5-20 mg/dLCBC W/PLT COUNT & AUTO [id number] 12:06:00 Test Item Value Reference Range Interpretation [...] code = 2801) HGB/HCT (H&H) - STAT [id number] 12:01:00 Test Item Value Reference Range Interpretation Comments HEMOGLOBIN (BEAKER) (test code = 13.8 g/dL 12.0-15.0 410) HEMATOCRIT (BEAKER) (test code = 41.0 % 36.0-45.0 411) CALCIUM, [id number] 12:01:00 Test Item Value Reference Range Interpretation Comments CALCIUM IONIZED (BEAKER) (test 1.25 mmol/L 1.12-1.27 code = 698) PH, BLOOD (BEAKER) (test code = 7.37 1810) BLOOD GAS, [id number] 12:01:00 Test Item Value Reference Range Interpretation [...] (test code = 1819) 60.0 % POTASSIUM-STAT [id number] 12:01:00 Test Item Value Reference Range Interpretation Comments POTASSIUM (BEAKER) (test code = 3.0 meq/L 3.6-5.5 L 379) GLUCOSE-STAT [id number] 12:01:00 Test Item Value Reference Range Interpretation Comments GLUCOSE RANDOM (BEAKER) (test code 139 mg/dL 70-110 H = 652) BLOOD GAS, [id number] 10:42:00 Test Item Value Reference Range Interpretation [...] (test code = 1819) 50.0 % POTASSIUM-STAT [id number] 10:42:00 Test Item Value Reference Range Interpretation Comments POTASSIUM (BEAKER) (test code = 3.1 meq/L 3.6-5.5 L 379) GLUCOSE-STAT [id number] 10:42:00 Test Item Value Reference Range Interpretation Comments GLUCOSE RANDOM (BEAKER) (test code 139 mg/dL 70-110 H = 652) CALCIUM, [id number] 10:41:00 Test Item Value Reference Range Interpretation Comments CALCIUM IONIZED (BEAKER) (test 1.27 mmol/L 1.12-1.27 code = 698) PH, BLOOD (BEAKER) (test code = 7.38 1810) SODIUM NA-STAT [id number] 10:40:00 Test Item Value Reference Range Interpretation Comments SODIUM (BEAKER) (test code = 381) 141 meq/L 135-148 HGB/HCT (H&H) - STAT [id number] 10:40:00 Test Item Value Reference Range Interpretation Comments HEMOGLOBIN (BEAKER) (test code = 13.7 g/dL 12.0-15.0 410) HEMATOCRIT (BEAKER) (test code = 40.0 % 36.0-45.0 411) BLOOD GAS, [id number] 09:53:00 Test Item Value Reference Range Interpretation [...] (test code = 1819) 50.0 % POTASSIUM-STAT [id number] 09:53:00 Test Item Value Reference Range Interpretation Comments POTASSIUM (BEAKER) (test code = 3.0 meq/L 3.6-5.5 L 379) GLUCOSE-STAT [id number] 09:53:00 Test Item Value Reference Range Interpretation Comments GLUCOSE RANDOM (BEAKER) (test code 135 mg/dL 70-110 H = 652) CALCIUM, [id number] 09:53:00 Test Item Value Reference Range Interpretation Comments CALCIUM IONIZED (BEAKER) (test 1.01 mmol/L 1.12-1.27 L code = 698) PH, BLOOD (BEAKER) (test code = 7.43 1810) SODIUM NA-STAT [id number] 09:51:00 Test Item Value Reference Range Interpretation Comments SODIUM (BEAKER) (test code = 381) 137 meq/L 135-148 HGB/HCT (H&H) - STAT [id number] 09:51:00 Test Item Value Reference Range Interpretation Comments HEMOGLOBIN (BEAKER) (test code = 14.1 g/dL 12.0-15.0 410) HEMATOCRIT (BEAKER) (test code = 41.0 % 36.0-45.0 411) BLOOD GAS, [id number] 08:48:00 Test Item Value Reference Range Interpretation [...] (test code = 1819) 100.0 % POTASSIUM-STAT [id number] 08:48:00 Test Item Value Reference Range Interpretation Comments POTASSIUM (BEAKER) (test code = 3.1 meq/L 3.6-5.5 L 379) GLUCOSE-STAT [id number] 08:48:00 Test Item Value Reference Range Interpretation Comments GLUCOSE RANDOM (BEAKER) (test code 116 mg/dL 70-110 H = 652) HGB/HCT (H&H) - STAT [id number] 08:48:00 Test Item Value Reference Range Interpretation Comments HEMOGLOBIN (BEAKER) (test code = 15.5 g/dL 12.0-15.0 H 410) HEMATOCRIT (BEAKER) (test code = 46.0 % 36.0-45.0 H 411) CALCIUM, [id number] 08:47:00 Test Item Value Reference Range Interpretation Comments CALCIUM IONIZED (BEAKER) (test 1.12 mmol/L 1.12-1.27 code = 698) PH, BLOOD (BEAKER) (test code = 7.42 1810) SODIUM NA-STAT [id number] 08:46:00 Test Item Value Reference Range Interpretation Comments SODIUM (BEAKER) (test code = 381) 141 meq/L 135-148 POCT-GLUCOSE [id number] 07:58:00 Test Item Value Reference Range Interpretation Comments POC-GLUCOSE METER 105 mg/dL 70-110 TESTED AT [facility] 6720 (BEAKER) (test code = [place] 1538) [address] [id number] 15:19:00 Test Item Value Reference Range Interpretation Comments PARTIAL THROMBOPLASTIN TIME 27.8 seconds 22.5-36.0 (BEAKER) (test code = 760) PROTHROMBIN TIME/[id number] 15:18:00 Test Item Value Reference Range Interpretation Comments PROTIME (BEAKER) (test code = 14.4 seconds 11.7-14.7 759) INR (BEAKER) (test code = 370) 1.1 <=5.9 RECOMMENDED COUMADIN/WARFARIN INR THERAPY RANGESSTANDARD DOSE: 2.0 - 3.0 Includes: PROPHYLAXIS forvenous thrombosis, systemic embolization; TREATMENT for venous thrombosis and/or pulmonary embolus.HIGH RISK: Target INR is 2.5-3.5 for patients with mechanical heart valves.COMPREHENSIVE METABOLIC [id number] 15:10:00 Test Item Value Reference Range Interpretation [...] FOR DIALYSIS PATIEN TS. RAD, CHEST, 2 [id number] 14:44:00Reason for exam:->preopFINAL REPORT Chest two views [...] MDReport Verified Date/Time: 03/11/2018 14:44:31 Reading Location: [address] Consult Reading Room CBC W/PLT COUNT & AUTO [id number] 14:43:00 Test Item Value Reference Range Interpretation [...] % 0-1 PERCENT (BEAKER) (test code = 6242)
[2021-05-10] MEDS ORDERED: LEVALBUTEROL 1.25 MG/3 ML NEB ONE (09:17)
[2021-05-10] MEDS ORDERED: METHYLPREDNISOLONE 125 MG INJ ONE (09:17)
[2021-05-10] MEDS ORDERED: IPRATROPIUM BROM 0.5MG/2.5ML ONE ×2 (09:17→15:08)
--- NOTE | 2021-05-10 09:35 | RAD REPORT ---
EXAM DESCRIPTION: RAD - Chest Single View - 05/10/2021 9:06 am CLINICAL HISTORY: Cough;COPD COMPARISON: Chest Single View dated 11/05/2019; Chest Single View dated 07/17/2019; Chest Single View dated 06/20/2019; Chest Single View dated 06/13/2019 FINDINGS: Bilateral hazy opacities. Cardiomegaly. Pacemaker.No acute osseous abnormality. No signifi cant pleural effusions or pneumothorax. IMPRESSION: Suspect mild pulmonary edema.
[2021-05-10] MEDS ORDERED: FUROSEMIDE 40 MG/4 ML VIAL ONE (09:39)
[2021-05-10 09:45] LABS: Urine Blood Negative (Negative); Urine Glucose Negative (Negative); Urine Protein 1+ (Negative); Urine Specific Gravity 1.015 (1.005-1.030); Urine pH 5.5 (5.0-7.0)
--- NOTE | 2021-05-10 09:53 | ER ---
Nurse's Notes [facility] Name: Fanny Arceo Age: 85 yrs Sex: Female : 1935 Arrival Date: 05/10/2021 Time: 08:22 Bed 4 Private MD: Diagnosis: Dyspnea;Hypoxemia;Systolic (congestive) heart failure;Cardiomegaly;Other acute kidney failure Presentation: 05/10 08:30 Chief complaint: EMS states: they were called out to [facility] due to patient having ap3 Room air saturation of 75% and reported low pulse. When EMS arrived, they said patient was on 2 liters nasal canula. EMS placed patient on non-rebreather, and SPO2 is reported to have come up to 99%. Coronavirus screen: At this time, the client does not indicate any symptoms associated with coronavirus-19. Ebola Screen: No symptoms or risks identified at this time. Initial Sepsis Screen: Does the patient meet any 2 criteria? RR > 20 per min. No. Patient's initial sepsis screen is negative. Does the patient have a suspected source of infection? No. Patient's initial sepsis screen is negative. Risk Assessment: Do you want to hurt yourself or someone else? Patient reports no desire to harm self or others. Onset of symptoms was May 10, 2021. Care prior to arrival: Oxygen administered. via nasal cannula. Transition of care: patient was received from another setting of care (long-term care facility), [facility]. 08:30 Method Of Arrival: EMS: [facility] ap3 08:30 Acuity: JESSE 3 ap3 Triage Assessment: 08:44 General: Appears. ap3 Historical: - Allergies: 08:35 Ticlopidine HCl; ap3 08:35 Sulfa (Sulfonamide Antibiotics); ap3 08:35 Morphine; ap3 08:35 Simvastatin; ap3 08:35 Atenolol; ap3 - Home Meds: 08:35 Zoloft 50 mg Oral tab 1 tab nightly [Active]; aspirin 325 mg Oral TbEC 1 tab once daily ap3 [Active]; carvedilol Oral [Active]; fenofibrate 145 MG Oral 1 cap once daily [Active]; Furosemide Oral [Active]; gabapentin 600 mg Oral tab 1 tab twice a day [Active]; famotidine 40 mg Oral tab 1 tab once daily [Active]; - PMHx: 08:35 Atrial Fib; CAD; CHF; chronic renal failure; Clot to right arm; COPD; Depression; ap3 Diabetes - IDDM; GERD; High Cholesterol; Hyperlipidemia; Hypertension; Hypothyroidism; neuropathy; Sleep Apnea; - Immunization history:: Adult Immunizations up to date, Client reports receiving the 2nd dose of the Covid vaccine, in december. - Social history:: Smoking status: Patient denies any tobacco usage or history of. - Family history:: not pertinent. Screenin:43 Abuse screen: Denies threats or abuse. Nutritional screening: No deficits noted. ap3 Tuberculosis screening: No symptoms or risk factors identified. Fall Risk No fall in past 12 months (0 pts). Secondary diagnosis (15 points) impaired mobility, IV access (20 points). Ambulatory Aid- None/Bed Rest/Nurse Assist (0 pts). Gait- Normal/Bed Rest/Wheelchair (0 pts) Mental Status- Oriented to own ability (0 pts). Total Pugh Fall Scale indicates Low Risk Score (25-44 pts). Fall prevention measures have been instituted. Side Rails Up X 2 Placed close to Nursing Station Frequent Obs/Assesments occuring As available Patient and Family Educated on Fall Prevention Program and strategies. Assessment: 08:44 General: Appears in no apparent distress. comfortable, Behavior is calm, cooperative. ap3 Pain: Denies pain. Neuro: Level of Consciousness is awake, obeys commands, Oriented to person, place, time, Cosmetic Consultant are equal bilaterally. Cardiovascular: Denies chest pain, Parent/caregiver reports patient has had shortness of breath. Respiratory: Airway is patent Respiratory effort is even, Respiratory pattern is tachypnea Parent/caregiver reports the patient having shortness of breath. Respiratory: Breath sounds are clear in left upper lobe Breath sounds with crackles in right upper lobe Breath sounds are diminished in right middle lobe and left lower lobe. GI: Abdomen is distended. 11:40 Reassessment: Patient and/or family updated on plan of care and expected duration. Pain ap3 level reassessed. Patient is alert, oriented x 3, equal unlabored respirations, skin warm/dry/pink. family is at the bedside. 12:08 Reassessment: RT at bedside to place pt on bipap. tr6 12:15 Reassessment: MD Cooney at bedside to discuss POC and results with pt and pts son at tr6 bedside. 15:27 Reassessment: pt converted to venti mask. tr6 Vital Signs: 08:30 BP 144 / 82; Pulse 77; Resp 25; Temp 96.7; Pulse Ox 100% on 5 lpm NC; Weight 91.17 kg; ap3 Height 63 in. (160.02 cm); 09:52 BP 109 / 61 RA Sitting (auto/reg); Pulse 77; Resp 22; Pulse Ox 97% ; ap3 11:18 BP 127 / 71; Pulse 82; Resp 21; Pulse Ox 95% on 5 lpm NC; ap3 13:26 BP 146 / 96; Pulse 70; Resp 19; Temp 98.8; Pulse Ox 99% on BiPAP; ap3 08:30 Body Mass Index 35.61 (91.17 kg, 160.02 cm) ap3 ED Course: 08:22 Patient arrived in ED. iw 08:30 Jessica Morales, NIKOLAS is Primary Nurse. ap3 08:32 Jayson Cooney MD is Attending Physician. lea 08:33 Patient has correct armband on for positive identification. Bed in low position. Call mh5 light in reach. Side rails up X2. Warm blanket given. Pillow given. school bus monitor on. Pulse ox on. NIBP on. 08:35 Triage completed. ap3 08:46 Arm band placed on right wrist. ap3 09:05 XRAY Chest (1 view) In Process Unspecified. EDMS 09:10 Inserted saline lock: 22 gauge in left antecubital area, using aseptic technique. Blood ap3 collected. 09:25 Martinez cath inserted, using sterile technique, 16 Fr., by hi, balloon inflated, to ap3 gravity drainage, urine specimen collected. 09:51 Chris Rosales MD is Hospitalizing Provider. lea 09:59 EKG done, by ED staff, reviewed by Jayson Cooney MD. mh5 10:49 CT Chest For PE Angio In Process Unspecified. EDMS 11:40 attempted transfer to [facility]. Spoke with Shahbaz, was told that there is a waiting list bd for rooms. 12:14 No provider procedures requiring assistance completed. tr6 18:01 Patient admitted, IV remains in place. ap3 Administered Medications: 09:50 Drug: Lasix (furosemide) 40 mg Route: IVP; Site: left antecubital; ap3 10:38 Follow up: Response: No adverse reaction ap3 09:51 Drug: SOLU-Medrol (methylPrednisoLONE) 125 mg Route: IVP; Site: left antecubital; ap3 10:38 Follow up: Response: No adverse reaction ap3 09:51 Drug: Xopenex (levalbuterol) 3.75 mg Route: Inhalation; ap3 11:21 Follow up: Response: No adverse reaction ap3 09:51 Drug: AtroVENT (ipratropium) Aerosol 0.5 mg Route: Inhalation; ap3 11:21 Follow up: Response: No adverse reaction ap3 11:57 Drug: Lovenox (enoxaparin) 40 mg Route: Sub-Q; Site: left lower abdomen; ap3 11:57 Follow up: Response: No adverse reaction ap3 11:57 Drug: Pepcid (famotidine) 20 mg Route: IVP; Site: left antecubital; ap3 11:57 Follow up: Response: No adverse reaction ap3 12:13 Drug: Aspirin 162 mg Route: PO; tr6 12:41 Follow up: Response: No adverse reaction ap3 Outcome: 09:53 Decision to Hospitalize by Provider. lea 18:00 Admitted to Med/surg accompanied by tech, via stretcher, with oxygen, with chart. ap3 18:00 Condition: good 18:00 Instructed on the need for admit, Demonstrated understanding of instructions. 18:01 Patient left the ED. ap3 Signatures: Dispatcher [employer] EDMS Renuka Meier Corey, MD MD cha Williams, Irene, RN RN iw Martinez, [facility] Jessica Morales RN RN ap3 Ashley Fierro RN RN tr6
--- NOTE | 2021-05-10 09:53 | EDPHYS ---
Physician Documentation [facility] Name: Fanny Arceo Age: 85 yrs Sex: Female : 1935 Arrival Date: 05/10/2021 Time: 08:22 Bed 4 Private MD: VALENTINA Physician Jayson Coonye HPI: 05/10 08:45 This 85 yrs old Female presents to ER via EMS with complaints of sob this lea morning. 08:45 The patient has shortness of breath at rest. Onset: The symptoms/episode began/occurred lea just prior to arrival. Duration: The symptoms are continuous, and are steadily getting worse. The patient's shortness of breath is aggravated by light activity, supine position, is alleviated by rest, sitting up, application of supplemental oxygen. The patient or guardian reports cough, that is intermittent, difficulty breathing, flu symptoms, arthralgias. Onset: The symptoms/episode began/occurred yesterday. Modifying factors: The symptoms are alleviated by nothing. the symptoms are aggravated by activity. Associated signs and symptoms: The patient has no apparent associated signs or symptoms. Severity of symptoms: At their worst the symptoms were moderate in the emergency department the symptoms are unchanged. Historical: - Allergies: 08:35 Ticlopidine HCl; ap3 08:35 Sulfa (Sulfonamide Antibiotics); ap3 08:35 Morphine; ap3 08:35 Simvastatin; ap3 08:35 Atenolol; ap3 - Home Meds: 08:35 Zoloft 50 mg Oral tab 1 tab nightly [Active]; aspirin 325 mg Oral TbEC 1 tab once daily ap3 [Active]; carvedilol Oral [Active]; fenofibrate 145 MG Oral 1 cap once daily [Active]; Furosemide Oral [Active]; gabapentin 600 mg Oral tab 1 tab twice a day [Active]; famotidine 40 mg Oral tab 1 tab once daily [Active]; - PMHx: 08:35 Atrial Fib; CAD; CHF; chronic renal failure; Clot to right arm; COPD; Depression; ap3 Diabetes - IDDM; GERD; High Cholesterol; Hyperlipidemia; Hypertension; Hypothyroidism; neuropathy; Sleep Apnea; - Immunization history:: Adult Immunizations up to date, Client reports receiving the 2nd dose of the Covid vaccine, in december. - Social history:: Smoking status: Patient denies any tobacco usage or history of. - Family history:: not pertinent. ROS: 08:45 Constitutional: Negative for fever, chills, and weight loss, Eyes: Negative for injury, lea pain, redness, and discharge, ENT: Negative for injury, pain, and discharge, Neck: Negative for injury, pain, and swelling, Abdomen/GI: Negative for abdominal pain, nausea, vomiting, diarrhea, and constipation, Back: Negative for injury and pain, : Negative for injury, bleeding, discharge, and swelling, MS/Extremity: Negative for injury and deformity, Skin: Negative for injury, rash, and discoloration, Neuro: Negative for headache, weakness, numbness, tingling, and seizure, Psych: Negative for depression, anxiety, suicide ideation, homicidal ideation, and hallucinations, Allergy/Immunology: Negative for hives, rash, and allergies, Endocrine: Negative for neck swelling, polydipsia, polyuria, polyphagia, and marked weight changes, Hematologic/Lymphatic: Negative for swollen nodes, abnormal bleeding, and unusual bruising. 08:45 Cardiovascular: Positive for orthopnea. 08:45 Respiratory: Positive for cough, "sounds productive", dyspnea on exertion, shortness of breath, at rest. 08:45 MS/extremity: Positive for pain, swelling, tenderness, of the right leg and left leg. Exam: 08:45 Constitutional: This is a well developed, well nourished patient who is awake, alert, lea and in no acute distress. Head/Face: Normocephalic, atraumatic. Eyes: Pupils equal round and reactive to light, extra-ocular motions intact. Lids and lashes normal. Conjunctiva and sclera are non-icteric and not injected. Cornea within normal limits. Periorbital areas with no swelling, redness, or edema. ENT: Nares patent. No nasal discharge, no septal abnormalities noted. Tympanic membranes are normal and external auditory canals are clear. Oropharynx with no redness, swelling, or masses, exudates, or evidence of obstruction, uvula midline. Mucous membranes moist. Neck: Trachea midline, no thyromegaly or masses palpated, and no cervical lymphadenopathy. Supple, full range of motion without nuchal rigidity, or vertebral point tenderness. No Meningismus. Chest/axilla: Normal chest wall appearance and motion. Nontender with no deformity. No lesions are appreciated. Cardiovascular: Regular rate and rhythm with a normal S1 and S2. No gallops, murmurs, or rubs. Normal PMI, no JVD. No pulse deficits. Abdomen/GI: Soft, non-tender, with normal bowel sounds. No distension or tympany. No guarding or rebound. No evidence of tenderness throughout. Back: No spinal tenderness. No costovertebral tenderness. Full range of motion. Female : Normal external genitalia. Skin: Warm, dry with normal turgor. Normal color with no rashes, no lesions, and no evidence of cellulitis. 08:45 Respiratory: mild respiratory distress is noted, moderate respiratory distress is noted, Respirations: labored breathing, that is mild, Breath sounds: rales, that are mild, are located in both bases, bronchial sounds, that are mild, decreased breath sounds, that are mild, are located in both bases, rhonchi, that are mild, are scattered, stridor, is not appreciated, + upper airway congestion. Respiratory rate: 25 10:13 ECG was reviewed by the Attending Physician. lea Vital Signs: 08:30 BP 144 / 82; Pulse 77; Resp 25; Temp 96.7; Pulse Ox 100% on 5 lpm NC; Weight 91.17 kg; ap3 Height 63 in. (160.02 cm); 09:52 BP 109 / 61 RA Sitting (auto/reg); Pulse 77; Resp 22; Pulse Ox 97% ; ap3 11:18 BP 127 / 71; Pulse 82; Resp 21; Pulse Ox 95% on 5 lpm NC; ap3 13:26 BP 146 / 96; Pulse 70; Resp 19; Temp 98.8; Pulse Ox 99% on BiPAP; ap3 08:30 Body Mass Index 35.61 (91.17 kg, 160.02 cm) ap3 MDM: 08:32 Patient medically screened. lea 08:49 Differential diagnosis: Anemia Anxiety Reaction asthma, Bronchitis CHF exacerbation, lea Chronic Obstructive Pulmonary Disease bronchitis, flu, URI, pneumonia, Pneumothorax Psychogenic pulmonary edema, Pulmonary Embolism reactive airway disease, Sepsis. Antibiotic administration: Not indicated. The patient's Wells Deep Vein Thrombosis Score was calculated as follows: Total Score: 0-2 Pts- Low Risk. Differential Diagnosis: Bronchitis Influenza Upper Respiratory Infection Sinusitis Pharyngitis Asthma Exacerbation Viral Syndrome Pneumonia. The patient's pulmonary embolism risk score was calculated as follows: Total Score: 0-2 points. This patient was found to be at low risk for a pulmonary embolism by using the Well's assessment criteria. Immunization status: Pneumococcal vaccine: Influenza vaccine: Data reviewed: vital signs, nurses notes, lab test result(s), EKG, radiologic studies, plain films. Data interpreted: vehicle monitor technician: rate is 77 beats/min, rhythm is regular, Pulse oximetry:. Test interpretation: by ED physician or midlevel provider: ECG, plain radiologic studies. Counseling: I had a detailed discussion with the patient and/or guardian regarding: the historical points, exam findings, and any diagnostic results supporting the discharge/admit diagnosis, the presence of at least one elevated blood pressure reading (>120/80) during this emergency department visit, lab results, radiology results, the need for outpatient follow up. 05/10 08:44 Order name: Basic Metabolic Panel [facility] 05/10 08:44 Order name: CBC with Diff [facility] 05/10 08:44 Order name: LFT's [facility] 05/10 08:44 Order name: Magnesium; Complete Time: 10:46 [facility] 05/10 08:44 Order name: NT PRO-BNP; Complete Time: 10:46 [facility] 05/10 08:44 Order name: PT-INR; Complete Time: 10:12 [facility] 05/10 08:44 Order name: Troponin (emerg Dept Use Only); Complete Time: 10:46 [facility] 05/10 08:44 Order name: Blood Culture Adult (2) [facility] 05/10 08:44 Order name: Urine Culture [facility] 05/10 08:44 Order name: D-Dimer; Complete Time: 10:12 [facility] 05/10 08:45 Order name: Basic Metabolic Panel; Complete Time: 10:46 EDSC 05/10 08:45 Order name: CBC with Automated Diff; Complete Time: 10:12 EDSC 05/10 08:45 Order name: Liver (Hepatic) Function; Complete Time: 10:46 EDSC 05/10 08:44 Order name: XRAY Chest (1 view); Complete Time: 09:42 [facility] 05/10 09:45 Order name: Urine Dipstick-Ancillary; Complete Time: 09:55 EDSC 05/10 10:13 Order name: CT Chest For PE Angio; Complete Time: 11:40 [facility] 05/10 10:29 Order name: ABG; Complete Time: 15:28 [facility] 05/10 11:01 Order name: SARS-COV-2 RT PCR; Complete Time: 11:40 EDSC 05/10 12:07 Order name: BIPAP [facility] 05/10 12:29 Order name: Basic Metabolic Panel EDSC 05/10 12:40 Order name: Troponin I EDSC 05/10 17:06 Order name: Glucose, Ancillary Testing EDMS 05/10 08:44 Order name: EKG; Complete Time: 08:45 [facility] 05/10 08:44 Order name: Cardiac monitoring; Complete Time: 08:47 [facility] 05/10 08:44 Order name: EKG - Nurse/Tech; Complete Time: 09:59 [facility] 05/10 08:44 Order name: IV Saline Lock; Complete Time: 09:51 [facility] 05/10 08:44 Order name: Labs collected and sent; Complete Time: 09:51 [facility] 05/10 08:44 Order name: O2 Per Protocol; Complete Time: 08:47 [facility] 05/10 08:44 Order name: O2 Sat Monitoring; Complete Time: 08:47 [facility] 05/10 08:44 Order name: Urine Dipstick-Ancillary (obtain specimen); Complete Time: 09:51 [facility] 05/10 08:44 Order name: Martinez; Complete Time: 09:51 [facility] 05/10 12:40 Order name: Consistent Carb (ADA) 2000 Jack EDMS EC:13 Rate is 72 beats/min. Rhythm is regular. QRS [place] is Normal. NM interval is normal. QRS lea interval is normal. QT interval is normal. No Q waves. No ST changes noted. Clinical impression: Abnormal EKG without significant change. Interpreted by me. Reviewed by me. Administered Medications: 09:50 Drug: Lasix (furosemide) 40 mg Route: IVP; Site: left antecubital; ap3 10:38 Follow up: Response: No adverse reaction ap3 09:51 Drug: SOLU-Medrol (methylPrednisoLONE) 125 mg Route: IVP; Site: left antecubital; ap3 10:38 Follow up: Response: No adverse reaction ap3 09:51 Drug: Xopenex (levalbuterol) 3.75 mg Route: Inhalation; ap3 11:21 Follow up: Response: No adverse reaction ap3 09:51 Drug: AtroVENT (ipratropium) Aerosol 0.5 mg Route: Inhalation; ap3 11:21 Follow up: Response: No adverse reaction ap3 11:57 Drug: Lovenox (enoxaparin) 40 mg Route: Sub-Q; Site: left lower abdomen; ap3 11:57 Follow up: Response: No adverse reaction ap3 11:57 Drug: Pepcid (famotidine) 20 mg Route: IVP; Site: left antecubital; ap3 11:57 Follow up: Response: No adverse reaction ap3 12:13 Drug: Aspirin 162 mg Route: PO; tr6 12:41 Follow up: Response: No adverse reaction ap3 Disposition Summary: 05/10/21 09:53 Hospitalization Ordered Hospitalization Status: Inpatient Admission lea Provider: Chris Rosales cha Location: Telemetry/MedSurg (Inpatient) lea Condition: Fair lea Problem: new lea Symptoms: have improved lea Bed/Room Type: Standard lea Room Assignment: 210(05/10/21 17:18) dw Diagnosis - Dyspnea lea - Hypoxemia lea - Systolic (congestive) heart failure lea - Cardiomegaly lea - Other acute kidney failure lea Forms: - Medication Reconciliation Form lea - SBAR form lea Signatures: Dispatcher [employer] EDMS Renuka Meier Diana, RN RN dw Anderson, Corey, MD MD cha Prokisch, Amanda RN RN ap3 Ashley Fierro RN RN tr6 Corrections: (The following items were deleted from the chart) 10:02 08:45 CORONAVIRUS+LAB.BRZ ordered. EDMS EDMS 17:17 09:53 lea bd 17:18 17:17 210 bd dw
[2021-05-10 09:54] LABS: Absolute Lymphocytes (CBC) 0.8 K/uL (0.7-4.9); Hematocrit 41.4 % (36.0-45.0); Lymphocytes % 10.1 % (15.3-44.8); MPV 9.9 fL (7.6-11.3); RBC Red Blood Cell Count 4.33 M/uL (3.86-4.86)
[2021-05-10 10:03] LABS: Protime INR 1.25
[2021-05-10 10:28] LABS: Albumin 3.2 g/dL (3.4-5.0); Bilirubin Direct 0.5 mg/dL (0-0.2); Bilirubin Total 0.9 mg/dL (0.2-1.0); Magnesium 2.2 mg/dL (1.8-2.4); Potassium 4.6 mmol/L (3.5-5.1); Protein, Total 7.4 g/dL (6.4-8.2); Troponin (Emerg Dept Use Only) 0.26 ng/mL (0.0-0.045)
--- NOTE | 2021-05-10 11:02 | RAD REPORT ---
EXAM DESCRIPTION: CT - Chest For Pe Angio - 05/10/2021 10:50 am CLINICAL HISTORY: CHEST PAIN COMPARISON: Chest For Pe Angio dated 11/06/2019; Chest Abd Pelvis Wo Con dated 10/19/2019; Thorax Wo C on dated 10/22/2018; Chest For Pe Angio dated 10/10/2017; Chest Single View dated 05/10/2021 FINDINGS: Chest Wall: No suspicious thyroid nodules or pathologic lymphadenopathy. Left upper chest wall pacemaker. Lungs: Interlobular septal thickening is present bilaterally. Emphysema noted. There are a few other nonspecific pulmonary opacities. Pleura: Small bilateral effusions. Mediastinum/susan: No pathologic lymphadenopathy. Pulmonary arteries/Aorta: No filling defect identified. No aortic aneurysm. Enlarged main pulmonary a rteries. Heart: No significant pericardial effusion. Cardiomegaly. Coronary artery calcifications. Upper abdomen: Reflux of contrast into the hepatic veins. Small volume ascites. Low-density lesion in the left hepatic lobe, likely benign. Cholecystectomy. Bones: No acute abnormality. IMPRESSION: Negative for pulmonary embolism. Pulmonary edema with small pleural effusion. There are some nonspecific airspace opacities that may represent alveolar edema, but pneumonia difficult to ent irely exclude.
[2021-05-10] MEDS ORDERED: FAMOTIDINE 20 MG/2 ML VIAL IV ONE (11:28)
[2021-05-10] MEDS ORDERED: ENOXAPARIN 40 MG/0.4 ML SQ ONE (12:09)
[2021-05-10] MEDS ORDERED: ASPIRIN 81 MG CHEWABLE TABLET ONE (12:32)
[2021-05-10] MEDS ORDERED: LABETALOL 20 MG/4ML SYRINGE IV PRN (12:36)
[2021-05-10] MEDS ORDERED: ACETAMINOPHEN 500 MG TAB PO PRN (12:37)
[2021-05-10] MEDS ORDERED: ONDANSETRON 4 MG/2 ML VIAL IV PRN (12:37)
[2021-05-10] MEDS ORDERED: HYDROCODONE/APAP 5/325 MG TAB PO PRN (12:56)
--- NOTE | 2021-05-10 13:00 | P.HP ---
Certification for Inpatient Patient admitted to: Observation With expected LOS: <2 Midnights Patient will require the following post-hospital care: None Practitioner: I am a practitioner with admitting privileges, knowledge of patient current condition, hospital course, and medical plan of care. Services: Services provided to patient in accordance with Admission requirements found in Title 42 Section 412.3 of the Code of Federal Regulations Patient History Date of Service: 05/10/21 Reason for admission: CHF exacerbation History of Present Illness: Patient is a 85-year-old female with a past medical history significant for COPO, CHF, AFib, CAD, CKD, depression, DM 2 Quijano., HLD, hypertension, hypothyroidism who presents with complaint of shortness of breath onset yesterday. Per family report, patient started complaining of generalized malaise yesterday. Patient is a resident of a snf. Patient also complains of chest pain located across the entire chest area, rated as 10/10 and described as throbbing in quality. Patient reports associated signs and symptoms of generalized body pain, generalized edema and intermittent cough. Patient indicated that symptoms are aggravated by exertion and relieved by nothing. Patient denies and other s\\s. Patient decided to present to the hospital due to worsening symptoms Allergies morphine Allergy (Verified 03/23/21 00:20) Hives ticlopidine HCl [From Ticlid] Adverse Reaction (Verified 03/23/21 00:20) Hives/Rash Sulfa (Sulfonamid Allergy (Mild, Uncoded 01/24/19 21:31) Unknown Home Medications: Fenofibrate [Tricor*] 145 mg PO BEDTIME 10/08/17 Levothyroxine Sodium [Synthroid] 125 mcg PO DAILY 01/25/19 Sertraline [Zoloft*] 50 mg PO BEDTIME 06/20/19 Bimatoprost [Lumigan] 1 drop EACH EYE BEDTIME 11/06/19 Famotidine 1 tab PO DAILY 11/06/19 Insulin Detemir [Levemir Flextouch] 10 unit SQ DAILY 11/06/19 Furosemide [Lasix*] 20 mg PO SEECOM 03/23/21 Gabapentin 2 cap PO BID 03/23/21 carvediloL [Coreg*] 1 tab PO BID 03/23/21 Lidocaine 4% Patch [Lidoderm 5% Patch*] 2 patch TOP DAILY patch 03/24/21 Arformoterol Tartrate [Brovana] 15 mcg IH BID #60 vial.neb 03/25/21 Ipratropium/Albuterol Sulfate [Iprat-Albut 0.5-3(2.5) mg/3 ml] 3 ml IH Q6H PRN #120 ampul.neb 03/25/21 - Past Medical/Surgical History Diabetic: Yes -: HTN -: Hyperlipidemia -: Diabetes mellitus type 2 -: COPD -: History of DVT/PE -: History of atrial fibrillation requiring pacemaker -: GERD -: Depression -: Hypothyroidism -: Arthritis -: History of esophageal stricture -: Chronic renal disease -: Cholecystectomy -: Appendectomy -: Hysterectomy -: PANCREATIC SX D/T MASS, no cancer noted -: cataract surgery -: "leg artery" aneurysm Psychosocial/ Personal History: The patient is a . She has 4 children. - Family History Brother -: Seizures Mother -: Heart disease Father -: Hypertension, Stroke - Social History Smoking Status: Never smoker Alcohol use: No CD- Drugs: No Caffeine use: No Place of Residence: Home Review of Systems General: Malaise, Other (Generalized body pain ) Eyes: Unremarkable ENT: Unremarkable Respiratory: Cough, Shortness of Breath, SOB with Excertion Cardiovascular: Chest Pain Gastrointestinal: Unremarkable Genitourinary: Unremarkable Musculoskeletal: Other (generalized weakness ) Integumentary: Unremarkable Neurological: Unremarkable Lymphatics: Unremarkable Physical Examination - Physical Exam General: Alert, In no apparent distress, Oriented x3, Acute distress HEENT: Atraumatic, PERRLA, Mucous membr. moist/pink, EOMI, Sclerae nonicteric Neck: Supple, 2+ carotid pulse no bruit, No LAD, Without JVD or thyroid a bnormality Respiratory: Normal air movement, Diminished, Expiratory wheezes, Inspiratory wheezes Cardiovascular: Regular rate/rhythm, Normal S1 S2, Edema Capillary refill: <2 Seconds Gastrointestinal: Normal bowel sounds, Soft and benign, No tenderness Musculoskeletal: No clubbing, No tenderness, Swelling Integumentary: No rashes, No breakdown Neurological: Normal gait, Normal speech, Normal tone, Normal affect Lymphatics: No axilla or inguinal lymphadenopathy External genitalia: Deferred Rectal: Deferred - Studies Laboratory Data (last 24 hrs) 05/10/21 09:13: PT 14.4 H, INR 1.25 05/10/21 09:13: WBC 7.80, Hgb 13.1, Hct 41.4, Plt Count 230 05/10/21 09:13: Sodium 137, Potassium 4.6, BUN 34 H, Creatinine 1.23, Glucose 88, Magnesium 2.2, Total Bilirubin 0.9, AST 87 H, ALT 35, Alkaline Phosphatase 35 L Assessment and Plan - Plan Acute on chronic diastolic CHF exacerbation. BNP--76 43. Generalized swelling noted. Patient placed on diuresis with Lasix. Daily weight and strict I&O. Continue home medications -- Respiratory acidosis. Patient placed on BiPAP. Will reassess ABG levels. --Pneumonia. CT imaging worrisome for pneumonia. Will go ahead and treat patient with antibiotics, steroids, neb treatment with DuoNeb and BiPAP therapy. --Acute respiratory failure with hypoxia and hypercapnia. Secondary to pneumonia and CHF exacerbation. Continue current treatment regimen. --Chest pain. Likely atypical. Will trend troponin. Telemetry to monitor for any significant arrhythmia. Continue supportive care. --Elevated D-dimer. CT angiogram negative for PE. Continue supportive care. -- Acute on chronic COPD exacerbation. Continue current treatment regimen. --History of CAD. Continue aspirin and statin. --DM 2. BS monitoring with sliding scale insulin. --Hypertension. Stable. Continue medications. --Hypothyroidism. Continue Synthriod. --CKD 3A . Slight improvement in renal function compared to levels 2 months ago. Will continue to monitor renal functions. --Paroxysmal AFib. Continue carvedilol. --Depression. Continue home medications. --DVT prophylaxis with heparin subQ Documentation of Current Medications in the Medical Record - 18+ years old: Code: G8427 - current medications obtained, updated, or reviewed. Pain Assessment and Follow-Up - 18+ years old: Code: G8730 - pain assessment positive with standardized tool AND a follow up plan is documented. I have had discussion about advanced directives with the patient and family during this hospital admission. Addressed code status and goals of care. Spent more than 15 minutes. Case discussed with patient and nurse. Discharge Plan: [facility] Plan to discharge in: 48 Hours - Advance Directives Does patient have a Living Will: Yes Does patient have a Durable POA for Healthcare: Yes - Code Status/Comfort Care Code Status Assessed: Yes Code Status: Full Code Critical Care: No
[2021-05-10 13:38] LABS: Arterial Blood Carboxyhemoglob 2.2 % (0-1.5); Blood Gas Oxyhemoglobin 86.1 % (94-97); Blood O2 Saturation 88.9 % (92-98.5)
[2021-05-10] MEDS: CEFEPIME/SWI 1gm 10 ML IV SCH ×2 (13:45→20:47)
[2021-05-10 13:51] VITALS: BMI 35.6
[2021-05-10] MEDS ORDERED: ALBUTEROL 2.5 MG/3 ML NEB SOL NEB SCH (14:00)
[2021-05-10] MEDS: AZITHROMYCIN IV 500 MG in NA CHLORIDE 0.9% 250 ML IVPB SCH (14:00)
[2021-05-10] MEDS ORDERED: CEFEPIME/SWI 1gm 10 ML ONE ×2 (14:31→21:04)
[2021-05-10] MEDS: IPRATROPIUM BROM 0.5MG/2.5ML NEB SCH ×2 (15:00→19:40)
[2021-05-10] MEDS ORDERED: ALBUTEROL 2.5 MG/3 ML NEB SOL ONE (15:07)
[2021-05-10] MEDS: INSULIN -REGULAR HUMAN 50 UNIT/0.5 ML ML SQ SCH ×2 (16:30→20:48)
[2021-05-10] MEDS ORDERED: FUROSEMIDE 40 MG/4 ML VIAL IV SCH (17:00)
[2021-05-10] MEDS ORDERED: ALBUTEROL 2.5 MG/3 ML NEB SOL NEB PRN (17:20)
[2021-05-10] MEDS: METHYLPREDNISOLONE 40 MG INJ IV SCH (18:53)
[2021-05-10] MEDS: FUROSEMIDE 20 MG/ 2ML VIAL IV SCH (18:53)
[2021-05-10] MEDS: ARFORMOTEROL TARTRATE 15 MCG/2 ML VIAL.NEB IH SCH (19:40)
[2021-05-10] MEDS: FENOFIBRATE 160 MG TAB PO SCH (20:46)
[2021-05-10] MEDS: HEPARIN 5000 UNIT/ML 1 ML VIAL SQ SCH (20:46)
[2021-05-10] MEDS: carvediloL 6.25 MG TAB PO SCH (20:46)
[2021-05-10] MEDS: GABAPENTIN 300 MG CAP PO SCH (20:47)
[2021-05-10] MEDS: SERTRALINE HCL 50 MG TAB PO SCH (20:47)
[2021-05-10] MEDS ORDERED: carvediloL 6.25 MG TAB PO SCH (21:00)
[2021-05-10] MEDS: HOME MED 1 EA UNK OPTH SCH (21:00)
[2021-05-10] MEDS ORDERED: CEFEPIME 1 GM/VIAL IV SCH (21:00)
[2021-05-10] MEDS ORDERED: FAMOTIDINE 20 MG TAB PO SCH (21:00)
[2021-05-11] MEDS: METHYLPREDNISOLONE 40 MG INJ IV SCH ×3 (01:11→17:11)
[2021-05-11] MEDS: IPRATROPIUM BROM 0.5MG/2.5ML NEB SCH ×4 (01:40→19:23)
[2021-05-11 05:15] LABS: Blood Gas Oxyhemoglobin 88.7 % (94-97); Blood O2 Saturation 91.3 % (92-98.5)
[2021-05-11 05:51] LABS: Absolute Lymphocytes (CBC) 0.5 K/uL (0.7-4.9); Basophils % 0.5 % (0-1.3); Hematocrit 39.7 % (36.0-45.0); Lymphocytes % 7.7 % (15.3-44.8); RBC Red Blood Cell Count 4.23 M/uL (3.86-4.86)
--- NOTE | 2021-05-11 05:57 | P.PN ---
Subjective Date of Service: 05/11/21 Chief Complaint: CHF exacerbation Subjective: Other (Patient on Ventimask this morning. Patient reports mild improvement.) Physical Examination - Vital Signs Temperature: 97.5 F Blood Pressure: 115/56 Pulse: 70 Respirations: 20 Pulse Ox (%): 96 - Studies Laboratory Data (last 24 hrs) 05/10/21 09:13: PT 14.4 H, INR 1.25 05/10/21 09:13: WBC 7.80, Hgb 13.1, Hct 41.4, Plt Count 230 05/10/21 09:13: Sodium 137, Potassium 4.6, BUN 34 H, Creatinine 1.23, Glucose 88, Magnesium 2.2, Total Bilirubin 0.9, AST 87 H, ALT 35, Alkaline Phosphatase 35 L Assessment & Plan Discharge Plan: Other (senior care) Plan to discharge in: 72 Hours Physician Review Additional Text: COVID: Negative CT scan: CXR: COMPARISON: Chest Single View dated 05/10/2021; Chest Single View dated 11/05/2019; Chest Single View dated 07/17/2019; Chest Single View dated 06/20/2019 FINDINGS: Portable technique limits examination quality. Mild interstitial pulmonary edema appears similar in severity relative to comparative study. The heart is moderately enlarged with dual lead pacer device present. No displaced fractures. IMPRESSION: Stable findings of mild to moderate CHF suspected. Physical Exam: General: Alert, In no apparent distress, Oriented x3, Acute distress HEENT: Atraumatic, PERRLA, Mucous membr. moist/pink, EOMI, Sclerae nonicteric Neck: Supple, 2+ carotid pulse no bruit, No LAD, Without JVD or thyroid abnormality Respiratory: Normal air movement, Diminished, Expiratory wheezes, Inspiratory wheezes Cardiovascular: Regular rate/rhythm, Normal S1 S2, Edema Capillary refill: <2 Seconds Gastrointestinal: Normal bowel sounds, Soft and benign, No tenderness Musculoskeletal: No clubbing, No tenderness, Swelling Integumentary: No rashes, No breakdown Neurological: Normal gait, Normal speech, Normal tone, Normal affect Lymphatics: No axilla or inguinal lymphadenopathy Impression: Acute on chronic diastolic CHF with acute respiratory failure complicated with COPD Elevated Troponin suspect ischemic demand with history of CAD Acute on chronic renal failure stage III Paroxymsmal A fib with pacemaker HTN Hypothyroidism Depression Chronic pain Hyperlipidemia Plan: Acute on chronic diastolic CHF with acute respiratory failure complicated with COPD: Continue with IV diuresisLasix 20 mg 1 pill twice daily. Fluid restriction in place. Case discussed with cardiology. No plan for cardiac intervention at this time. Will monitor chest x-ray. Will obtain echocardiogram. Wean off oxygen. Pulmonology consulted. Continue with COPD medicationalbuterol, Atrovent and Brovana. Continue IV Solu-Medrol. Doubt pneumonia. Discontinue IV antibiotic therapy. Will discuss with pulmonology and cardiology. Elevated Troponin suspect ischemic demand with history of CAD: Cardiology plans for no intervention at this time. Will monitor closely. Continue with medication carvedilol, Lasix. Acute on chronic renal failure stage III: Nephrology consulted. Await recommendations. Paroxymsmal A fib with pacemaker: Continue carvedilol. Patient on heparin for DVT prophylaxis. HTN: Continue with medication carvedilol. Will monitor and adjust appropriately. Hypothyroidism: Continue with medication levothyroxine Depression: Continue medication Zoloft Chronic pain: Continue gabapentin Hyperlipidemia: Continue with [employer] Advance care minutes: Patient will return to the residential at discharge. CODE STATUS: Full code DVT prophylaxis: Heparin Case discussed with patient and nurse. Time Spent Managing Pts Care (In Minutes): 55
[2021-05-11 06:06] LABS: Potassium 4.9 mmol/L (3.5-5.1)
[2021-05-11 06:37] LABS: Blood Morphology Comment NOT SEEN (NOT SEEN); Platelet Estimate ADEQ
[2021-05-11] MEDS: LEVOTHYROXINE SOD 0.125 MG TAB PO SCH (07:30)
[2021-05-11] MEDS: INSULIN -REGULAR HUMAN 50 UNIT/0.5 ML ML SQ SCH ×4 (07:30→21:00)
--- NOTE | 2021-05-11 07:42 | EKG ---
Test Date: 2021-05-10 Test Time: 10:07:55 Polisher Balance Screwhead: MIK MEASUREMENT RESULTS: Intervals: Rate: 72 ME: QRSD: 184 QT: 452 QTc: 494 [place]: P: ME: QRS: 131 T: 89 INTERPRETIVE STATEMENTS: Electronic ventricular pacemaker Compared to ECG 03/24/2021 11:15:46 No significant changes Electronically Signed On 05-11-21 07:39:55 CDT by Amadeo Jin
[2021-05-11] MEDS: ARFORMOTEROL TARTRATE 15 MCG/2 ML VIAL.NEB IH SCH ×2 (08:08→19:23)
--- NOTE | 2021-05-11 08:57 | RAD REPORT ---
EXAM DESCRIPTION: RAD - Chest Single View - 05/11/2021 4:58 am CLINICAL HISTORY: follow up CHF/COPD Chest pain. COMPARISON: Chest Single View dated 05/10/2021; Chest Single View dated 11/05/2019; Chest Single View d ated 07/17/2019; Chest Single View dated 06/20/2019 FINDINGS: Portable technique limits examination quality. Mild interstitial pulmonary edema appears similar in severity relative to comparative study. The hear t is moderately enlarged with dual lead pacer device present. No displaced fractures. IMPRESSION: Stable findings of mild to moderate CHF suspected.
[2021-05-11] MEDS ORDERED: FAMOTIDINE 20 MG TAB PO SCH (09:00)
[2021-05-11] MEDS: ASPIRIN 81 MG CHEWABLE TABLET PO SCH (09:00)
[2021-05-11] MEDS: AZITHROMYCIN IV 500 MG in NA CHLORIDE 0.9% 250 ML IVPB SCH (09:00)
[2021-05-11] MEDS: HEPARIN 5000 UNIT/ML 1 ML VIAL SQ SCH ×2 (09:00→22:01)
[2021-05-11] MEDS: CEFEPIME/SWI 1gm 10 ML IV SCH (09:00)
[2021-05-11] MEDS: FUROSEMIDE 20 MG/ 2ML VIAL IV SCH ×2 (09:00→17:00)
[2021-05-11] MEDS: FAMOTIDINE 20 MG TAB PO SCH (09:00)
[2021-05-11] MEDS: carvediloL 6.25 MG TAB PO SCH ×2 (09:00→22:02)
[2021-05-11] MEDS: GABAPENTIN 300 MG CAP PO SCH ×2 (09:00→22:01)
--- NOTE | 2021-05-11 17:01 | EKG ---
Test Date: 2021-05-10 Test Time: 15:36:16 Construction Coordinator: RYANR MEASUREMENT RESULTS: Intervals: Rate: 75 [place]: 80 QRSD: 110 QT: 412 QTc: 460 [place]: P: [place]: 80 QRS: 24 T: 216 INTERPRETIVE STATEMENTS: Demand pacemaker, interpretation is based on intrinsic rhythm Sinus rhythm with short [place] with premature ventricular complexes or fusion complexes Marked ST abnormality, possible inferolateral subendocardial injury Abnormal ECG Compared to ECG 05/10/2021 10:07:55 Fusion complex(es) now present Ventricular premature complex(es) now present Short AZ interval now present ST (T wave) deviation now present Electronically Signed On 05-11-21 16:58:55 CDT by Amadeo Jin
[2021-05-11] MEDS: HOME MED 1 EA UNK OPTH SCH (21:00)
[2021-05-11] MEDS: SERTRALINE HCL 50 MG TAB PO SCH (22:01)
[2021-05-11] MEDS: FENOFIBRATE 160 MG TAB PO SCH (22:02)
--- NOTE | 2021-05-11 22:15 | RAD REPORT ---
EXAM DESCRIPTION: CT - Head Brain Wo Cont - 05/11/2021 9:18 pm CLINICAL HISTORY: AMS COMPARISON: Head Brain Wo Cont dated 03/09/2019 TECHNIQUE: All CT scans are performed using dose optimization technique as appropriate and may inclu de automated exposure control or mA/KV adjustment according to patient size. FINDINGS: No intracranial hemorrhage, hydrocephalus or extra-axial fluid collection.No areas of brai n edema or evidence of midline shift. Cerebral atrophy with chronic small vessel ischemic changes The paranasal sinuses and mastoids are clear. The calvarium is intact. IMPRESSION: No acute intracranial abnormality.
--- NOTE | 2021-05-11 23:09 | P.CNS ---
Date of Consult: 05/11/21 Reason for Consult: FREDO/ CKD Requesting Physician: Cosme Ma Chief Complaint: CHF exacerbation History of Present Illness: Patient is a 85-year-old female with a past medical history significant for COPO, CHF, AFib, CAD, CKD, depression, DM 2 Quijano., HLD, hypertension, hypothyroidism who presents with complaint of shortness of breath onset yesterday. Per family report, patient started complaining of generalized malaise yesterday. Patient is a resident of a detention. Patient also complains of chest pain located across the entire chest area, rated as 10/10 and described as throbbing in quality. Patient reports associated signs and symptoms of generalized body pain, generalized edema and intermittent cough. Patient indicated that symptoms are aggravated by exertion and relieved by nothing. Patient denies and other s\\s. Patient decided to present to the hospital due to worsening symptoms 08:45 This 85 yrs old Female presents to ER via EMS with complaints of sob this lae morning. 08:45 The patient has shortness of breath at rest. Onset: The symptoms/episode began/occurred lea just prior to arrival. Duration: The symptoms are continuous, and are steadily getting worse. The patient's shortness of breath is aggravated by light activity, supine position, is alleviated by rest, sitting up, application of supplemental oxygen. The patient or guardian reports cough, that is intermittent, difficulty breathing, flu symptoms, arthralgias. Onset: The symptoms/episode began/occurred yesterday. Modifying factors: The symptoms are alleviated by nothing. the symptoms are aggravated by activity. Associated signs and symptoms: The patient has no apparent associated signs or symptoms. Severity of symptoms: At their worst the symptoms were moderate in the emergency department the symptoms are unchanged. Allergies morphine Allergy (Verified 03/23/21 00:20) Hives ticlopidine HCl [From Ticlid] Adverse Reaction (Verified 03/23/21 00:20) Hives/Rash Sulfa (Sulfonamid Allergy (Mild, Uncoded 01/24/19 21:31) Unknown Home medications list reviewed: Yes Home Medications: Fenofibrate [Tricor*] 145 mg PO BEDTIME 10/08/17 Levothyroxine Sodium [Synthroid] 125 mcg PO DAILY 01/25/19 Sertraline [Zoloft*] 50 mg PO BEDTIME 06/20/19 Bimatoprost [Lumigan] 1 drop EACH EYE BEDTIME 11/06/19 Famotidine 1 tab PO DAILY 11/06/19 Insulin Detemir [Levemir Flextouch] 10 unit SQ DAILY 11/06/19 Furosemide [Lasix*] 20 mg PO SEECOM 03/23/21 Gabapentin 2 cap PO BID 03/23/21 carvediloL [Coreg*] 1 tab PO BID 03/23/21 Lidocaine 4% Patch [Lidoderm 5% Patch*] 2 patch TOP DAILY patch 03/24/21 Arformoterol Tartrate [Brovana] 15 mcg IH BID #60 vial.neb 03/25/21 Ipratropium/Albuterol Sulfate [Iprat-Albut 0.5-3(2.5) mg/3 ml] 3 ml IH Q6H PRN #120 ampul.neb 03/25/21 - Past Medical/Surgical History Diabetic: Yes -: HTN -: Hyperlipidemia -: Diabetes mellitus type 2 -: COPD -: History of DVT/PE -: History of atrial fibrillation requiring pacemaker -: GERD -: Depression -: Hypothyroidism -: Arthritis -: History of esophageal stricture -: Chronic renal disease -: Cholecystectomy -: Appendectomy -: Hysterectomy -: PANCREATIC SX D/T MASS, no cancer noted -: cataract surgery -: "leg artery" aneurysm Psychosocial/ Personal History: The patient is a . She has 4 children. - Family History Brother Medical History: Seizures Mother Medical History: Heart disease Father Medical History: Hypertension, Stroke - Social History Smoking Status: Unknown if ever smoked Alcohol use: No CD- Drugs: No Caffeine use: No Place of Residence: Home Review of Systems 10-point ROS is otherwise unremarkable General: Weakness Respiratory: Shortness of Breath Physical Examination Temp Pulse Resp BP Pulse Ox 98.1 F 70 21 H 114/54 L 88 L 05/11/21 16:00 05/11/21 22:02 05/11/21 16:00 05/11/21 22:02 05/11/21 16:00 General: In no apparent distress, Oriented x3, Cooperative HEENT: Atraumatic Neck: Supple Respiratory: Diminished, Crackles/rales Cardiovascular: No edema, Regular rate/rhythm Gastrointestinal: Soft and benign, Non-distended Musculoskeletal: No clubbing, No contractures Integumentary: No rashes, No cyanosis Neurological: Normal speech Laboratory Data (last 24 hrs) 05/11/21 05:21: Sodium 139, Potassium 4.9, BUN 42 H, Creatinine 1.13, Glucose 123 H 05/11/21 05:21: WBC 6.20 D, Hgb 12.5, Hct 39.7, Plt Count 165 D 05/11/21 00:19: Troponin I 0.46 H Imagings Data: EXAM DESCRIPTION: CT - Chest For Pe Angio - 05/10/2021 10:50 am CLINICAL HISTORY: CHEST PAIN COMPARISON: Chest For Pe Angio dated 11/06/2019; Chest Abd Pelvis Wo Con dated 10/19/2019; Thorax Wo Con dated 10/22/2018; Chest For Pe Angio dated 10/10/2017; Chest Single View dated 05/10/2021 FINDINGS: Chest Wall: No suspicious thyroid nodules or pathologic lymphadenopathy. Left upper chest wall pacemaker. Lungs: Interlobular septal thickening is present bilaterally. Emphysema noted. There are a few other nonspecific pulmonary opacities. Pleura: Small bilateral effusions. Mediastinum/susan: No pathologic lymphadenopathy. Pulmonary arteries/Aorta: No filling defect identified. No aortic aneurysm. Enlarged main pulmonary arteries. Heart: No significant pericardial effusion. Cardiomegaly. Coronary artery calcifications. Upper abdomen: Reflux of contrast into the hepatic veins. Small volume ascites. Low-density lesion in the left hepatic lobe, likely benign. Cholecystectomy. Bones: No acute abnormality. IMPRESSION: Negative for pulmonary embolism. Pulmonary edema with small pleural effusion. There are some nonspecific airspace opacities that may represent alveolar edema, but pneumonia difficult to entirely exclude. Reason for Exam: follow up CHF/COPD Report Status: Signed EXAM DESCRIPTION: RAD - Chest Single View - 05/11/2021 4:58 am CLINICAL HISTORY: follow up CHF/COPD Chest pain. COMPARISON: Chest Single View dated 05/10/2021; Chest Single View dated 11/05/2019; Chest Single View dated 07/17/2019; Chest Single View dated 06/20/2019 FINDINGS: Portable technique limits examination quality. Mild interstitial pulmonary edema appears similar in severity relative to comparative study. The heart is moderately enlarged with dual lead pacer device present. No displaced fractures. IMPRESSION: Stable findings of mild to moderate CHF suspected. Conclusions/Impression: FREDO likely CRS CKD III with proteinuria -No NSAIDs -Continue furosemide HTN with CKD/ CHF -Continue Coreg Diastolic CHF, A/C Acute hypoxic hypercapnic respiratory failure -Continue furosemide -Continue Bipap DM II with CKD -RISS Thank you kindly for the consultation.
[2021-05-12] MEDS: METHYLPREDNISOLONE 40 MG INJ IV SCH ×3 (00:26→16:12)
[2021-05-12] MEDS: IPRATROPIUM BROM 0.5MG/2.5ML NEB SCH ×4 (01:35→20:45)
--- NOTE | 2021-05-12 05:53 | P.PN ---
Subjective Date of Service: 05/12/21 Chief Complaint: CHF exacerbation Subjective: Other (Remains on BIPAP) Physical Examination - Vital Signs Temperature: 97.6 F Blood Pressure: 125/61 Pulse: 79 Respirations: 18 Pulse Ox (%): 90 - Studies Laboratory Data (last 24 hrs) 05/11/21 05:21: Sodium 139, Potassium 4.9, BUN 42 H, Creatinine 1.13, Glucose 123 H 05/11/21 05:21: WBC 6.20 D, Hgb 12.5, Hct 39.7, Plt Count 165 D Assessment & Plan Discharge Plan: Other ([facility]) Plan to discharge in: Greater than 2 days Physician Review Additional Text: COVID: Negative CT head: COMPARISON: Head Brain Wo Cont dated 03/09/2019 TECHNIQUE: All CT scans are performed using dose optimization technique as appropriate and may include automated exposure control or mA/KV adjustment according to patient size. FINDINGS: No intracranial hemorrhage, hydrocephalus or extra-axial fluid collection.No areas of brain edema or evidence of midline shift. Cerebral atrophy with chronic small vessel ischemic changes The paranasal sinuses and mastoids are clear. The calvarium is intact. IMPRESSION: No acute intracranial abnormality. CT chest: COMPARISON: Chest For Pe Angio dated 11/06/2019; Chest Abd Pelvis Wo Con dated 10/19/2019; Thorax Wo Con dated 10/22/2018; Chest For Pe Angio dated 10/10/2017; Chest Single View dated 05/10/2021 FINDINGS: Chest Wall: No suspicious thyroid nodules or pathologic lymphadenopathy. Left upper chest wall pacemaker. Lungs: Interlobular septal thickening is present bilaterally. Emphysema noted. There are a few other nonspecific pulmonary opacities. Pleura: Small bilateral effusions. Mediastinum/susan: No pathologic lymphadenopathy. Pulmonary arteries/Aorta: No filling defect identified. No aortic aneurysm. Enlarged main pulmonary arteries. Heart: No significant pericardial effusion. Cardiomegaly. Coronary artery calcifications. Upper abdomen: Reflux of contrast into the hepatic veins. Small volume ascites. Low-density lesion in the left hepatic lobe, likely benign. Cholecystectomy. Bones: No acute abnormality. IMPRESSION: Negative for pulmonary embolism. Pulmonary edema with small pleural effusion. There are some nonspecific airspace opacities that may represent alveolar edema, but pneumonia difficult to entirely exclude. CXR: COMPARISON: Chest Single View dated 05/10/2021; Chest Single View dated 11/05/2019; Chest Single View dated 07/17/2019; Chest Single View dated 06/20/2019 FINDINGS: Portable technique limits examination quality. Mild interstitial pulmonary edema appears similar in severity relative to comparative study. The heart is moderately enlarged with dual lead pacer device present. No displaced fractures. IMPRESSION: Stable findings of mild to moderate CHF suspected. Follow up CXR: COMPARISON: Chest Single View dated 05/11/2021; Chest Single View dated 05/10/2021; Chest Single View dated 11/05/2019; Chest Single View dated 07/17/2019 FINDINGS: Portable technique limits examination quality. Bilateral pulmonary opacities have mildly worsened particularly on the right since the comparative study. The heart is moderately enlarged in size. Multilead pacer device is present.Aortic atherosclerosis. IMPRESSION: Mild worsening in bilateral pulmonary opacities since comparative study. ECHO: MEASUREMENTS (cm) DIASTOLIC (NORMALS) SYSTOLIC (NORMALS) IVSd 1.6 (0.6-1.2) LA Diam 4.4 (1.9-4.0) LVEF 78% LVIDd 3.5 (3.5-5.7) LVIDs 1.9 (2.0-3.5) %FS 46% LVPWd 1.5 (0.6-1.2) Ao Diam 2.7 (2.0-3.7) 2 DIMENSIONAL ASSESSMENT: RIGHT ATRIUM: NORMAL LEFT ATRIUM: DILATED RIGHT VENTRICLE: NORMAL LEFT VENTRICLE: LEFT VENTRICULAR HYPERTROPHY TRICUSPID VALVE: NORMAL MITRAL VALVE: NORMAL PULMONIC VALVE: NORMAL AORTIC VALVE: SCLEROSIS PERICARDIAL EFFUSION: NONE AORTIC ROOT: NORMAL LEFT VENTRICULAR WALL MOTION: NORMAL EJECTION FRACTION. MILD TRICUSPID REGURGITATION. RIGHT VENTRICULAR SYSTOLIC PRESSURE 58 mmHg. DOPPLER/COLOR FLOW: COMMENTS: MILD TRICUSPID REGURGITATION. SEVERE PULMONARY HYPERTENSION. LEFT VENTRICULAR HYPERTENSION. DIASTOLIC DYSFUNCTION. AORTIC SCLEROSIS. NORMAL EJECTION FRACTION. Physical Exam: General: Alert, In no apparent distress, Oriented x3, Acute distress HEENT: Atraumatic, PERRLA, Mucous membr. moist/pink, EOMI, Sclerae nonicteric Neck: Supple, 2+ carotid pulse no bruit, No LAD, Without JVD or thyroid abnormality Respiratory: Diminished to the bases, currently on BiPAP Cardiovascular: Regular rate/rhythm, Normal S1 S2, Edema Capillary refill: <2 Seconds Gastrointestinal: Normal bowel sounds, Soft and benign, No tenderness Musculoskeletal: No clubbing, No tenderness, Swelling Integumentary: No rashes, No breakdown Neurological: Normal gait, Normal speech, Normal tone, Normal affect Lymphatics: No axilla or inguinal lymphadenopathy Impression: Acute on chronic diastolic CHF with acute respiratory failure complicated with COPD, severe pulmonary hypertension Elevated Troponin suspect ischemic demand with history of CAD Acute on chronic renal failure stage III Paroxymsmal A fib with pacemaker HTN Hypothyroidism Depression Chronic pain Hyperlipidemia Plan: Acute on chronic diastolic CHF with acute respiratory failure complicated with COPD, severe pulmonary hypertension: Case discussed with nephrology. Will discontinue IV Lasix due to hypercapnia. Will change to Diamox 500 mg 1 pill twice daily. Pulmonology had recommended IV fluids but will discontinue fluids and discuss with pulmonology as nephrology recommends to hold fluids at this time. Recheck chest x-ray tomorrow. Continue COPD medication including albuterol, Atrovent and Brovana. Patient remains on IV Solu-Medrol. We will continue to monitor closely. Pulmonology recommended Levaquin at this time. Will monitor closely. Case discussed in detail with son. Will need to consider long-term acute care facility placement for recovery. Elevated Troponin suspect ischemic demand with history of CAD: Medications adjusted. Continue carvedilol. Lasix discontinued. This was replaced with Diamox. Acute on chronic renal failure stage III: Case discussed in detail with nephrology. Nephrology recommends Diamox 500 mg 1 pill twice daily. Lasix discontinued. Nephrology recommends to hold IV fluids at this time. Paroxymsmal A fib with pacemaker: Continue carvedilol. Patient on heparin for DVT prophylaxis. HTN: Continue with medication carvedilol. Will monitor and adjust appropriately. Hypothyroidism: Continue with medication levothyroxine Depression: Continue medication Zoloft Chronic pain: Continue gabapentin Hyperlipidemia: Continue with [employer] Advance care [id number] minutes: Will consider long-term acute care facility placement. Will discuss with social services technician about options of care in the near future. CODE STATUS: Advance care directives addressed in detail with the patient's son yesterday. Patient is DO NOT RESUSCITATE. DVT prophylaxis: Heparin Case discussed with patient and nurse. Time Spent Managing Pts Care (In Minutes): 55
[2021-05-12 05:55] LABS: Absolute Lymphocytes (CBC) 0.3 K/uL (0.7-4.9); Basophils % 0.1 % (0-1.3); Hematocrit 38.1 % (36.0-45.0); Lymphocytes % 5.3 % (15.3-44.8); MPV 9.6 fL (7.6-11.3); RBC Red Blood Cell Count 4.08 M/uL (3.86-4.86)
[2021-05-12 06:56] LABS: ALT/SGPT 37 U/L (12-78); AST/SGOT 79 U/L (15-37); Albumin 2.9 g/dL (3.4-5.0); Alkaline Phosphatase 29 U/L (45-117); BUN Blood Urea Nitrogen 49 mg/dL (7-18); Bilirubin Total 0.6 mg/dL (0.2-1.0); Glucose Level 153 mg/dL (74-106); Magnesium 2.6 mg/dL (1.8-2.4); Potassium 4.3 mmol/L (3.5-5.1); Protein, Total 6.7 g/dL (6.4-8.2); Sodium Level 141 mmol/L (136-145)
[2021-05-12 06:57] LABS: Bicarbonate > 45 mmol/L (21-32)
[2021-05-12] MEDS: INSULIN -REGULAR HUMAN 50 UNIT/0.5 ML ML SQ SCH ×4 (07:30→21:00)
[2021-05-12] MEDS: FUROSEMIDE 20 MG/ 2ML VIAL IV SCH (09:00)
[2021-05-12] MEDS ORDERED: acetaZOLAMIDE 250 MG TAB PO SCH ×2 (09:00→21:00)
[2021-05-12] MEDS: HEPARIN 5000 UNIT/ML 1 ML VIAL SQ SCH (09:00)
--- NOTE | 2021-05-12 09:17 | P.CNS ---
Date of Consult: 05/12/21 (Pt agreed to TV) Reason for Consult: Resp failure Chief Complaint: REsp failure History of Present Illness: PT is 85 yrs of age well known to me/ Termianl COPD[place]. [place] resp failure/ On BIPAP/ Alert low saturations Allergies morphine Allergy (Verified 03/23/21 00:20) Hives ticlopidine HCl [From Ticlid] Adverse Reaction (Verified 03/23/21 00:20) Hives/Rash Sulfa (Sulfonamid Allergy (Mild, Uncoded 01/24/19 21:31) Unknown Home Medications: Fenofibrate [Tricor*] 145 mg PO BEDTIME 10/08/17 Levothyroxine Sodium [Synthroid] 125 mcg PO DAILY 01/25/19 Sertraline [Zoloft*] 50 mg PO BEDTIME 06/20/19 Bimatoprost [Lumigan] 1 drop EACH EYE BEDTIME 11/06/19 Famotidine 1 tab PO DAILY 11/06/19 Insulin Detemir [Levemir Flextouch] 10 unit SQ DAILY 11/06/19 Furosemide [Lasix*] 20 mg PO SEECOM 03/23/21 Gabapentin 2 cap PO BID 03/23/21 carvediloL [Coreg*] 1 tab PO BID 03/23/21 Lidocaine 4% Patch [Lidoderm 5% Patch*] 2 patch TOP DAILY patch 03/24/21 Arformoterol Tartrate [Brovana] 15 mcg IH BID #60 vial.neb 03/25/21 Ipratropium/Albuterol Sulfate [Iprat-Albut 0.5-3(2.5) mg/3 ml] 3 ml IH Q6H PRN #120 ampul.neb 03/25/21 - Past Medical/Surgical History Diabetic: Yes -: HTN -: Hyperlipidemia -: Diabetes mellitus type 2 -: COPD -: History of DVT/PE -: History of atrial fibrillation requiring pacemaker -: GERD -: Depression -: Hypothyroidism -: Arthritis -: History of esophageal stricture -: Chronic renal disease -: Cholecystectomy -: Appendectomy -: Hysterectomy -: PANCREATIC SX D/T MASS, no cancer noted -: cataract surgery -: "leg artery" aneurysm Psychosocial/ Personal History: The patient is a . She has 4 children. - Family History Brother Medical History: Seizures Mother Medical History: Heart disease Father Medical History: Hypertension, Stroke - Social History Smoking Status: Unknown if ever smoked Alcohol use: No CD- Drugs: No Caffeine use: No Place of Residence: Home Physical Examination Temp Pulse Resp BP Pulse Ox 97.7 F 70 24 H 149/70 H 91 05/12/21 08:00 05/12/21 08:00 05/12/21 08:00 05/12/21 08:00 05/12/21 08:00 General: Alert, Other (On BIPAP) - Problems (1) Acute and chronic respiratory failure Current Visit: No Status: Acute Plan: Age 85 HX of terminal COPD/ Aw exacerbation/ CT inflam changes a the Right base. Bicarb elevated/ DC lasic/ CE Diamox. IV fluids/ Add levaquin 750 / last ECHO 03/28 Normal LV/ NIV Qualifiers: Respiratory failure complication: hypoxia Qualified Code(s): J96.21 - Acute and chronic respiratory failure with hypoxia
[2021-05-12] MEDS: ARFORMOTEROL TARTRATE 15 MCG/2 ML VIAL.NEB IH SCH ×2 (09:20→20:45)
--- NOTE | 2021-05-12 09:21 | RAD REPORT ---
EXAM DESCRIPTION: RAD - Chest Single View - 05/12/2021 4:54 am CLINICAL HISTORY: Follow up CHF/COPD Chest pain. COMPARISON: Chest Single View dated 05/11/2021; Chest Single View dated 05/10/2021; Chest Single View da giovanny 11/05/2019; Chest Single View dated 07/17/2019 FINDINGS: Portable technique limits examination quality. Bilateral pulmonary opacities have mildly worsened particularly on the right since the comparative st udy. The heart is moderately enlarged in size. Multilead pacer device is present.Aortic atheroscleros is. IMPRESSION: Mild worsening in bilateral pulmonary opacities since comparative study.
[2021-05-12] MEDS: ASPIRIN 81 MG CHEWABLE TABLET PO SCH (09:41)
[2021-05-12] MEDS: LEVOTHYROXINE SOD 0.125 MG TAB PO SCH (09:41)
[2021-05-12] MEDS: GABAPENTIN 300 MG CAP PO SCH ×2 (09:41→23:07)
[2021-05-12] MEDS: FAMOTIDINE 20 MG TAB PO SCH (09:41)
[2021-05-12] MEDS: carvediloL 6.25 MG TAB PO SCH ×2 (09:42→23:07)
[2021-05-12] MEDS: levoFLOXacin 750 MG TAB PO SCH (09:46)
[2021-05-12] MEDS ORDERED: NACHLORIDE 0.45% 1,000 ML IV SCH (10:00)
--- NOTE | 2021-05-12 10:34 | P.PN ---
Date of Service: 05/12/21 Vital Signs Temp Pulse Resp BP Pulse Ox 97.7 F 70 24 H 149/70 H 91 05/12/21 08:00 05/12/21 09:42 05/12/21 08:00 05/12/21 09:42 05/12/21 08:00 Medications Acetaminophen (Acetaminophen 500 Mg Tab) 500 mg PO Q4HP PRN PRN Reason: TEMP > 100' F Hydrocodone Bitart/Acetaminophen (Hydrocodone/Apap 5/325 Mg Tab) 1 tab PO Q6HP PRN PRN Reason: Pain scale 5-7 (Moderate) Acetazolamide (Acetazolamide 250 Mg Tab) 250 mg PO BID [facility] Last Admin: 05/12/21 09:46 Dose: 250 mg Documented by: Albuterol Sulfate (Albuterol 2.5 Mg/3 Ml Neb Candace) 2.5 mg NEB [id number] PRN PRN Reason: SHORTNESS OF BREATH Arformoterol Tartrate (Arformoterol Tartrate 15 Mcg/2 Ml Vial.Neb) 15 mcg IH BID [facility] Last Admin: 05/11/21 19:23 Dose: 15 mcg Documented by: Aspirin (Aspirin 81 Mg Chewable Tablet) 81 mg PO DAILY [facility] Last Admin: 05/12/21 09:41 Dose: 81 mg Documented by: Carvedilol (Carvedilol 6.25 Mg Tab) 6.25 mg PO BID [facility] Last Admin: 05/12/21 09:42 Dose: 6.25 mg Documented by: Enoxaparin Sodium (Enoxaparin 40 Mg/0.4 Ml) 40 mg SQ DAILY [facility] Famotidine (Famotidine 20 Mg Tab) 20 mg PO DAILY [facility] Last Admin: 05/12/21 09:41 Dose: 20 mg Documented by: Fenofibrate (Fenofibrate 160 Mg Tab) 160 mg PO BEDTIME [facility] Last Admin: 05/11/21 22:02 Dose: 160 mg Documented by: Gabapentin (Gabapentin 300 Mg Cap) 600 mg PO BID [facility] Last Admin: 05/12/21 09:41 Dose: 600 mg Documented by: Home Med (Home Med 1 Ea Unk) 1 ea OPTH BEDTIME [facility] Last Admin: 05/11/21 21:00 Dose: Not Given Documented by: Sodium Chloride (Sodium Chloride 0.45%) 1,000 mls @ 75 mls/hr IV .[id number] [facility] Last Admin: 05/12/21 09:46 Dose: 1,000 mls Documented by: Insulin Human Regular (Insulin -Regular Human 50 Unit/0.5 Ml Ml) 0 unit SQ ACHS [facility]; Protocol Last Admin: 05/12/21 07:30 Dose: Not Given Documented by: Ipratropium [place] (Ipratropium Brom 0.5mg/2.5ml) 0.5 mg NEB [id number] [facility] Last Admin: 05/12/21 01:35 Dose: 0.5 mg Documented by: Levofloxacin (Levofloxacin 750 Mg Tab) 750 mg PO Q48H [facility]; Protocol Last Admin: 05/12/21 09:46 Dose: 750 mg Documented by: Levothyroxine Sodium (Levothyroxine Sod 0.125 Mg Tab) 0.125 mg PO ACB [facility] Last Admin: 05/12/21 09:41 Dose: 0.125 mg Documented by: Methylprednisolone Sodium Succinate (Methylprednisolone 40 Mg Inj) 40 mg IV Q8HR [facility] Last Admin: 05/12/21 09:41 Dose: 40 mg Documented by: Ondansetron HCl (Ondansetron 4 Mg/2 Ml Vial) 4 mg IV Q6HP PRN PRN Reason: NAUSEA / VOMITING Sertraline HCl (Sertraline Hcl 50 Mg Tab) 50 mg PO BEDTIME [facility] Last Admin: 05/11/21 22:01 Dose: 50 mg Documented by: Sodium Chloride (Flush Normal Saline 10 Ml) 10 ml IV BID [facility] Last Admin: 05/12/21 09:00 Dose: 10 ml Documented by: Microbiology Results 05/10/21 09:30 Catheterized Urine Indian Count - Final No growth. 05/10/21 09:30 Catheterized Urine - Final No growth. 05/10/21 09:10 Blood - Blood Aerobic Blood Culture - Preliminary No growth in 24 hours. 05/10/21 09:10 Blood - Blood Anaerobic Blood Culture - Preliminary No growth in 24 hours. 05/10/21 09:15 Blood - Blood Aerobic Blood Culture - Preliminary No growth in 24 hours. 05/10/21 09:15 Blood - Blood Anaerobic Blood Culture - Preliminary No growth in 24 hours. Assessment/ Plan: Nephrology Dyspnea with hypoxia especially off the bipap No chest pain. No acute events overnight. Vitals, medications, blood work and imaging reviewed in the chart. General: In no apparent distress, Oriented x3, Cooperative HEENT: Atraumatic Neck: Supple Respiratory: Diminished Cardiovascular: No edema, Regular rate/rhythm Gastrointestinal: Soft and benign, Non-distended Musculoskeletal: No clubbing, No contractures Integumentary: No rashes, No cyanosis Neurological: Normal speech Laboratory Data (last 24 hrs) 05/11/21 05:21: Sodium 139, Potassium 4.9, BUN 42 H, Creatinine 1.13, Glucose 123 H 05/11/21 05:21: WBC 6.20 D, Hgb 12.5, Hct 39.7, Plt Count 165 D 05/11/21 00:19: Troponin I 0.46 H Imagings Data: EXAM DESCRIPTION: CT - Chest For Pe Angio - 05/10/2021 10:50 am CLINICAL HISTORY: CHEST PAIN COMPARISON: Chest For Pe Angio dated 11/06/2019; Chest Abd Pelvis Wo Con dated 10/19/2019; Thorax Wo Con dated 10/22/2018; Chest For Pe Angio dated 10/10/2017; Chest Single View dated 05/10/2021 FINDINGS: Chest Wall: No suspicious thyroid nodules or pathologic lymphadenopathy. Left upper chest wall pacemaker. Lungs: Interlobular septal thickening is present bilaterally. Emphysema noted. There are a few other nonspecific pulmonary opacities. Pleura: Small bilateral effusions. Mediastinum/susan: No pathologic lymphadenopathy. Pulmonary arteries/Aorta: No filling defect identified. No aortic aneurysm. Enlarged main pulmonary arteries. Heart: No significant pericardial effusion. Cardiomegaly. Coronary artery calcifications. Upper abdomen: Reflux of contrast into the hepatic veins. Small volume ascites. Low-density lesion in the left hepatic lobe, likely benign. Cholecystectomy. Bones: No acute abnormality. IMPRESSION: Negative for pulmonary embolism. Pulmonary edema with small pleural effusion. There are some nonspecific airspace opacities that may represent alveolar edema, but pneumonia difficult to entirely exclude. Reason for Exam: follow up CHF/COPD EXAM DESCRIPTION: RAD - Chest Single View - 05/11/2021 4:58 am CLINICAL HISTORY: follow up CHF/COPD Chest pain. COMPARISON: Chest Single View dated 05/10/2021; Chest Single View dated 11/05/2019; Chest Single View dated 07/17/2019; Chest Single View dated 06/20/2019 FINDINGS: Portable technique limits examination quality. Mild interstitial pulmonary edema appears similar in severity relative to comparative study. The heart is moderately enlarged with dual lead pacer device present. No displaced fractures. IMPRESSION: Stable findings of mild to moderate CHF suspected. EXAM DESCRIPTION: RAD - Chest Single View - 05/12/2021 4:54 am CLINICAL HISTORY: Follow up CHF/COPD Chest pain. COMPARISON: Chest Single View dated 05/11/2021; Chest Single View dated 05/10/2021; Chest Single View dated 11/05/2019; Chest Single View dated 07/17/2019 FINDINGS: Portable technique limits examination quality. Bilateral pulmonary opacities have mildly worsened particularly on the right since the comparative study. The heart is moderately enlarged in size. Multilead pacer device is present.Aortic atherosclerosis. IMPRESSION: Mild worsening in bilateral pulmonary opacities since comparative study. Conclusions/Impression: FREDO likely CRS CKD III with proteinuria -No NSAIDs Acute hypoxic hypercapnic respiratory failure Respiratory Acidosis with compensated metabolic alkalosis -Continue Bipap -Increase Diamox 500mg BID -Hold furosemide HTN with CKD/ CHF -Continue Coreg Diastolic CHF, A/C -Continue diuresis DM II with CKD -RISS Case reviewed with Dr. Ma
--- NOTE | 2021-05-12 10:39 | ECHO ---
HEIGHT: 5 ft 3 in WEIGHT: 201 lb 0 oz DATE OF STUDY: 05/11/[address]: Cosme Ma DO 2-DIMENSIONAL: YES M.MODE: YES DOPPLER: YES COLOR FLOW: YES TDS: PORTABLE: DEFINITY: BUBBLE STUDY: DIAGNOSIS: CARDIAC HISTORY: CATHERIZATION: SURGERY: PROSTHETIC VALVE: PACEMAKER: MEASUREMENTS (cm) DIASTOLIC (NORMALS) SYSTOLIC (NORMALS) IVSd 1.6 (0.6-1.2) LA Diam 4.4 (1.9-4.0) LVEF 78% LVIDd 3.5 (3.5-5.7) LVIDs 1.9 (2.0-3.5) %FS 46% LVPWd 1.5 (0.6-1.2) Ao Diam 2.7 (2.0-3.7) 2 DIMENSIONAL ASSESSMENT: RIGHT ATRIUM: NORMAL LEFT ATRIUM: DILATED RIGHT VENTRICLE: NORMAL LEFT VENTRICLE: LEFT VENTRICULAR HYPERTROPHY TRICUSPID VALVE: NORMAL MITRAL VALVE: NORMAL PULMONIC VALVE: NORMAL AORTIC VALVE: SCLEROSIS PERICARDIAL EFFUSION: NONE AORTIC ROOT: NORMAL LEFT VENTRICULAR WALL MOTION: NORMAL EJECTION FRACTION. MILD TRICUSPID REGURGITATION. RIGHT VENTRICULAR SYSTOLIC PRESSURE 58 mmHg. DOPPLER/COLOR FLOW: COMMENTS: MILD TRICUSPID REGURGITATION. SEVERE PULMONARY HYPERTENSION. LEFT VENTRICULAR HYPERTENSION. DIASTOLIC DYSFUNCTION. AORTIC SCLEROSIS. NORMAL EJECTION FRACTION. TECHNOLOGIST: JUSTICE HAMPT[place]
[2021-05-12 13:27] LABS: Platelet Estimate ADEQ; White Blood Cell Scan OK (OK)
[2021-05-12 13:28] LABS: Blood Morphology Comment NOT SEEN (NOT SEEN)
[2021-05-12 16:40] LABS: Arterial Blood Carboxyhemoglob 1.8 % (0-1.5); Blood O2 Saturation 91.5 % (92-98.5)
[2021-05-12] MEDS: HOME MED 1 EA UNK OPTH SCH (21:00)
[2021-05-12] MEDS: SERTRALINE HCL 50 MG TAB PO SCH (23:07)
[2021-05-12] MEDS: FENOFIBRATE 160 MG TAB PO SCH (23:07)
[2021-05-12] MEDS: acetaZOLAMIDE 250 MG TAB PO SCH (23:07)
[2021-05-13] MEDS: METHYLPREDNISOLONE 40 MG INJ IV SCH ×2 (00:57→08:55)
[2021-05-13] MEDS: IPRATROPIUM BROM 0.5MG/2.5ML NEB SCH ×4 (01:40→20:00)
[2021-05-13 06:00] LABS: Absolute Lymphocytes (CBC) 0.3 K/uL (0.7-4.9); Basophils % 0.3 % (0-1.3); Hematocrit 40.6 % (36.0-45.0); Lymphocytes % 4.1 % (15.3-44.8); MPV 9.6 fL (7.6-11.3)
--- NOTE | 2021-05-13 06:12 | P.PN ---
Subjective Date of Service: 05/13/21 Chief Complaint: CHF exacerbation Subjective: Other (Stable on BIPAP. Reports some problems swallowing) Physical Examination - Vital Signs Temperature: 97.5 F Blood Pressure: 117/70 Pulse: 92 Respirations: 18 Pulse Ox (%): 94 - Studies Microbiology Data (last 24 hrs): 05/10/21 09:30 Catheterized Urine [place] Count - Final No growth. 05/10/21 09:30 Catheterized Urine - Final No growth. Assessment & Plan Discharge Plan: LTAC Plan to discharge in: 48 Hours Physician Review Additional Text: COVID: Negative CT head: COMPARISON: Head Brain Wo Cont dated 03/09/2019 TECHNIQUE: All CT scans are performed using dose optimization technique as ap propriate and may include automated exposure control or mA/KV adjustment according to patient size. FINDINGS: No intracranial hemorrhage, hydrocephalus or extra-axial fluid collection.No areas of brain edema or evidence of midline shift. Cerebral atrophy with chronic small vessel ischemic changes The paranasal sinuses and mastoids are clear. The calvarium is intact. IMPRESSION: No acute intracranial abnormality. CT chest: COMPARISON: Chest For Pe Angio dated 11/06/2019; Chest Abd Pelvis Wo Con dated 10/19/2019; Thorax Wo Con dated 10/22/2018; Chest For Pe Angio dated 10/10/2017; Chest Single View dated 05/10/2021 FINDINGS: Chest Wall: No suspicious thyroid nodules or pathologic lymphadenopathy. Left upper chest wall pacemaker. Lungs: Interlobular septal thickening is present bilaterally. Emphysema noted. There are a few other nonspecific pulmonary opacities. Pleura: Small bilateral effusions. Mediastinum/susan: No pathologic lymphadenopathy. Pulmonary arteries/Aorta: No filling defect identified. No aortic aneurysm. Enlarged main pulmonary arteries. Heart: No significant pericardial effusion. Cardiomegaly. Coronary artery calcifications. Upper abdomen: Reflux of contrast into the hepatic veins. Small volume ascites. Low-density lesion in the left hepatic lobe, likely benign. Cholecystectomy. Bones: No acute abnormality. IMPRESSION: Negative for pulmonary embolism. Pulmonary edema with small pleural effusion. There are some nonspecific airspace opacities that may represent alveolar edema, but pneumonia difficult to entirely exclude. CXR: COMPARISON: Chest Single View dated 05/10/2021; Chest Single View dated 11/05/2019; Chest Single View dated 07/17/2019; Chest Single View dated 06/20/2019 FINDINGS: Portable technique limits examination quality. Mild interstitial pulmonary edema appears similar in severity relative to comparative study. The heart is moderately enlarged with dual lead pacer device present. No displaced fractures. IMPRESSION: Stable findings of mild to moderate CHF suspected. Follow up CXR: COMPARISON: May 12 FINDINGS: Bilateral pulmonary opacities have partially resolved Heart remains enlarged. Pacemaker leads in place IMPRESSION: Improvement in CHF ECHO: MEASUREMENTS (cm) DIASTOLIC (NORMALS) SYSTOLIC (NORMALS) IVSd 1.6 (0.6-1.2) LA Diam 4.4 (1.9-4.0) LVEF 78% LVIDd 3.5 (3.5-5.7) LVIDs 1.9 (2.0-3.5) %FS 46% LVPWd 1.5 (0.6-1.2) Ao Diam 2.7 (2.0-3.7) 2 DIMENSIONAL ASSESSMENT: RIGHT ATRIUM: NORMAL LEFT ATRIUM: DILATED RIGHT VENTRICLE: NORMAL LEFT VENTRICLE: LEFT VENTRICULAR HYPERTROPHY TRICUSPID VALVE: NORMAL MITRAL VALVE: NORMAL PULMONIC VALVE: NORMAL AORTIC VALVE: SCLEROSIS PERICARDIAL EFFUSION: NONE AORTIC ROOT: NORMAL LEFT VENTRICULAR WALL MOTION: NORMAL EJECTION FRACTION. MILD TRICUSPID REGURGITATION. RIGHT VENTRICULAR SYSTOLIC PRESSURE 58 mmHg. DOPPLER/COLOR FLOW: COMMENTS: MILD TRICUSPID REGURGITATION. SEVERE PULMONARY HYPERTENSION. LEFT VENTRICULAR HYPERTENSION. DIASTOLIC DYS FUNCTION. AORTIC SCLEROSIS. NORMAL EJECTION FRACTION. Physical Exam: General: Alert, In no apparent distress, Oriented x3, Acute distress HEENT: Atraumatic, PERRLA, Mucous membr. moist/pink, EOMI, Sclerae nonicteric Neck: Supple, 2+ carotid pulse no bruit, No LAD, Without JVD or thyroid abnormality Respiratory: Currently on BiPAP. Cardiovascular: Regular rate/rhythm, Normal S1 S2, Edema Capillary refill: <2 Seconds Gastrointestinal: Normal bowel sounds, Soft and benign, No tenderness Musculoskeletal: No clubbing, No tenderness, Swelling Integumentary: No rashes, No breakdown Neurological: Normal gait, Normal speech, Normal tone, Normal affect Lymphatics: No axilla or inguinal lymphadenopathy Impression: Acute on chronic diastolic CHF with acute respiratory failure complicated with end-stage COPD, severe pulmonary hypertension Elevated Troponin suspect ischemic demand with history of CAD Acute on chronic renal failure stage III Paroxymsmal A fib with pacemaker HTN Hypothyroidism Depression Chronic pain Hyperlipidemia Dysphagia GERD Plan: Acute on chronic diastolic CHF with acute respiratory failure complicated with end-stage COPD, severe pulmonary hypertension: Case discussed in detail with nephrology, pulmonology. Pulmonology recommends that the patient will require NIV at discharge. NIV to be ordered. Will need to check to see if this will be utilized at the shelter. Continue with Diamox. Continue with COPD treatme nt. Will transition to prednisone. Continue Levaquin. Spoke with son at length. Son agrees with sending patient to long-term acute care facility placement to continue rehab. We will also have speech evaluate her swallowing. Son understands that her condition is end-stage. Patient remains DO NOT RESUSCITATE. Spoke with son at length about the possibility of hospice in the future. He wants to continue current treatment at this time and hold off on hospice. Dietary to evaluate daily needs Elevated Troponin suspect ischemic demand with history of CAD: Medications adjusted. Continue carvedilol. Continue Diamox Acute on chronic renal failure stage III: Continue Diamox. Continue with nephrology recommendations Paroxymsmal A fib with pacemaker: Continue carvedilol. Patient on heparin for DVT prophylaxis. HTN: Continue with medication carvedilol. Will monitor and adjust appropriate ly. Hypothyroidism: Continue with medication levothyroxine Depression: Continue medication Zoloft Chronic pain: Continue gabapentin Hyperlipidemia: Continue with TriCor Dysphagia: Speech to evaluate. Modified barium swallow ordered. Will start nystatin. GERD: Will provide medication. Advance care minutes: Patient remains DO NOT RESUSCITATE. Case discussed at length with son. Son agrees with long-term care facility placement to continue rehab. CODE STATUS: Patient remains DO NOT RESUSCITATE DVT prophylaxis: Heparin Time Spent Managing Pts Care (In Minutes): 55
[2021-05-13 06:26] LABS: Bilirubin Total 0.6 mg/dL (0.2-1.0); Magnesium 2.6 mg/dL (1.8-2.4); Phosphorus 3.2 mg/dL (2.5-4.9); Potassium 4.2 mmol/L (3.5-5.1); Uric Acid 7.2 mg/dL (2.6-6.0)
--- NOTE | 2021-05-13 07:12 | RAD REPORT ---
EXAM DESCRIPTION: [place] Single View05/13/2021 5:02 am CLINICAL HISTORY: Shortness of breath COMPARISON: May 12 FINDINGS: Bilateral pulmonary opacities have partially resolved Heart remains enlarged. Pacemaker leads in place IMPRESSION: Improvement in CHF
[2021-05-13 07:20] LABS: Urine Appearance CLEAR (Clear); Urine Bilirubin NEGATIVE (Negative); Urine Blood NEGATIVE (Negative); Urine Color YELLOW (Yellow); Urine Glucose NEGATIVE (Negative); Urine Protein TRACE (Negative); Urine Specific Gravity 1.015 (1.005-1.030)
[2021-05-13] MEDS: INSULIN -REGULAR HUMAN 50 UNIT/0.5 ML ML SQ SCH ×4 (07:30→21:00)
[2021-05-13] MEDS: LEVOTHYROXINE SOD 0.125 MG TAB PO SCH (08:55)
[2021-05-13] MEDS: acetaZOLAMIDE 250 MG TAB PO SCH ×2 (08:55→21:00)
[2021-05-13] MEDS: ASPIRIN 81 MG CHEWABLE TABLET PO SCH (08:56)
[2021-05-13] MEDS: FAMOTIDINE 20 MG TAB PO SCH (08:56)
[2021-05-13] MEDS: carvediloL 6.25 MG TAB PO SCH ×2 (08:56→22:10)
[2021-05-13] MEDS: GABAPENTIN 300 MG CAP PO SCH ×2 (08:56→22:11)
[2021-05-13] MEDS: ENOXAPARIN 40 MG/0.4 ML SQ SCH (08:57)
[2021-05-13] MEDS: ARFORMOTEROL TARTRATE 15 MCG/2 ML VIAL.NEB IH SCH ×2 (09:00→21:00)
[2021-05-13 09:03] LABS: Urine Amorphous Sediment 1+ /HPF (NONE SEEN); Urine Bacteria <20 /HPF (<20); Urine RBC <5 /HPF (NONE SEEN)
[2021-05-13] MEDS: NYSTATIN 500,000 UNIT/5 ML UDC PO SCH ×2 (14:00→22:11)
[2021-05-13] MEDS ORDERED: ALBUTEROL 2.5 MG/3 ML NEB SOL NEB PRN (14:00)
--- NOTE | 2021-05-13 15:31 | RAD REPORT ---
EXAM DESCRIPTION: RAD - Barium Swallow Modified - 05/13/2021 3:22 pm CLINICAL HISTORY: dysphagia COMPARISON: Abdomen Pelvis Wo Contrast dated 03/31/2021 TECHNIQUE: The patient was given liquid, semi-solid and solid forms of barium. Lateral view fluorosc opic imaging was performed in conjunction with speech pathology service. FINDINGS: Laryngeal penetration: Cleared with thin, nectar, and honey not cleared with thin with tablet, thin when fatigued at end of study. Aspiration: With thin when fatigued at end of study. Pt did cough. Reported 6/10 pain during study, possibly due to pharyngeal wall mass / irritation at C3. Recommend d edicated barium swallow study. Total fluoroscopy time: 5 minutes and 52 seconds
--- NOTE | 2021-05-13 20:42 | P.PN ---
Date of Service: 05/13/21 Vital Signs Temp Pulse Resp BP Pulse Ox 97.7 F 77 18 114/56 L 96 05/13/21 16:00 05/13/21 16:00 05/13/21 16:00 05/13/21 16:00 05/13/21 16:00 Medications Acetaminophen (Acetaminophen 500 Mg Tab) 500 mg PO Q4HP PRN PRN Reason: TEMP > 100' F Hydrocodone Bitart/Acetaminophen (Hydrocodone/Apap 5/325 Mg Tab) 1 tab PO Q6HP PRN PRN Reason: Pain scale 5-7 (Moderate) Acetazolamide (Acetazolamide 250 Mg Tab) 500 mg PO BID [facility] Last Admin: 05/13/21 08:55 Dose: 500 mg Documented by: Albuterol Sulfate (Albuterol 2.5 Mg/3 Ml Neb [place]) 2.5 mg NEB [id number] PRN PRN Reason: SHORTNESS OF BREATH Arformoterol Tartrate (Arformoterol Tartrate 15 Mcg/2 Ml Vial.Neb) 15 mcg IH BID [facility] Aspirin (Aspirin 81 Mg Chewable Tablet) 81 mg PO DAILY [facility] Last Admin: 05/13/21 08:56 Dose: 81 mg Documented by: Carvedilol (Carvedilol 6.25 Mg Tab) 6.25 mg PO BID [facility] Last Admin: 05/13/21 08:56 Dose: Not Given Documented by: Enoxaparin Sodium (Enoxaparin 40 Mg/0.4 Ml) 40 mg SQ DAILY [facility] Last Admin: 05/13/21 08:57 Dose: 40 mg Documented by: Famotidine (Famotidine 20 Mg Tab) 20 mg PO DAILY [facility] Last Admin: 05/13/21 08:56 Dose: 20 mg Documented by: Fenofibrate (Fenofibrate 160 Mg Tab) 160 mg PO BEDTIME [facility] Last Admin: 05/12/21 23:07 Dose: 160 mg Documented by: Gabapentin (Gabapentin 300 Mg Cap) 600 mg PO BID [facility] Last Admin: 05/13/21 08:56 Dose: 600 mg Documented by: Home Med (Home Med 1 Ea Unk) 1 ea OPTH BEDTIME [facility] Last Admin: 05/12/21 21:00 Dose: Not Given Documented by: Insulin Human Regular (Insulin -Regular Human 50 Unit/0.5 Ml Ml) 0 unit SQ ACHS [facility]; Protocol Last Admin: 05/13/21 16:30 Dose: Not Given Documented by: Ipratropium [place] (Ipratropium Brom 0.5mg/2.5ml) 0.5 mg NEB [id number] [facility] Last Admin: 05/13/21 14:33 Dose: 0.5 mg Documented by: Levofloxacin (Levofloxacin 750 Mg Tab) 750 mg PO Q48H [facility]; Protocol Last Admin: 05/12/21 09:46 Dose: 750 mg Documented by: Levothyroxine Sodium (Levothyroxine Sod 0.125 Mg Tab) 0.125 mg PO ACB [facility] Last Admin: 05/13/21 08:55 Dose: 0.125 mg Documented by: Nystatin (Nystatin 500,000 Unit/5 Ml Udc) 500,000 unit PO TID [facility] Last Admin: 05/13/21 14:00 Dose: Not Given Documented by: Ondansetron HCl (Ondansetron 4 Mg/2 Ml Vial) 4 mg IV Q6HP PRN PRN Reason: NAUSEA / VOMITING Prednisone (Prednisone 20 Mg Tab) 20 mg PO BID [facility] Sertraline HCl (Sertraline Hcl 50 Mg Tab) 50 mg PO BEDTIME [facility] Last Admin: 05/12/21 23:07 Dose: 50 mg Documented by: Sodium Chloride (Flush Normal Saline 10 Ml) 10 ml IV BID [facility] Last Admin: 05/13/21 08:57 Dose: 10 ml Documented by: Microbiology Results 05/10/21 09:30 Catheterized Urine [place] Count - Final No growth. 05/10/21 09:30 Catheterized Urine - Final No growth. 05/10/21 09:10 Blood - Blood Aerobic Blood Culture - Preliminary No growth in 24 hours. 05/10/21 09:10 Blood - Blood Anaerobic Blood Culture - Preliminary No growth in 24 hours. 05/10/21 09:15 Blood - Blood Aerobic Blood Culture - Preliminary No growth in 24 hours. 05/10/21 09:15 Blood - Blood Anaerobic Blood Culture - Preliminary No growth in 24 hours. Assessment/ Plan: Nephrology Dyspnea with hypoxia especially off the bipap but feeling better. No chest pain. No acute events overnight. Vitals, medications, blood work and imaging reviewed in the chart. General: In no apparent distress, Oriented x3, Cooperative HEENT: Atraumatic Neck: Supple Respiratory: Diminished Cardiovascular: No edema, Regular rate/rhythm Gastrointestinal: Soft and benign, Non-distended Musculoskeletal: No clubbing, No contractures Integumentary: No rashes, No cyanosis Neurological: Normal speech Laboratory Data (last 24 hrs) 05/11/21 05:21: Sodium 139, Potassium 4.9, BUN 42 H, Creatinine 1.13, Glucose 123 H 05/11/21 05:21: WBC 6.20 D, Hgb 12.5, Hct 39.7, Plt Count 165 D 05/11/21 00:19: Troponin I 0.46 H Imagings Data: EXAM DESCRIPTION: CT - Chest For Pe Angio - 05/10/2021 10:50 am CLINICAL HISTORY: CHEST PAIN COMPARISON: Chest For Pe Angio dated 11/06/2019; Chest Abd Pelvis Wo Con dated 10/19/2019; Thorax Wo Con dated 10/22/2018; Chest For Pe Angio dated 10/10/2017; Chest Single View dated 05/10/2021 FINDINGS: Chest Wall: No suspicious thyroid nodules or pathologic lymphadenopathy. Left upper chest wall pacemaker. Lungs: Interlobular septal thickening is present bilaterally. Emphysema noted. There are a few other nonspecific pulmonary opacities. Pleura: Small bilateral effusions. Mediastinum/susan: No pathologic lymphadenopathy. Pulmonary arteries/Aorta: No filling defect identified. No aortic aneurysm. Enlarged main pulmonary arteries. Heart: No significant pericardial effusion. Cardiomegaly. Coronary artery calcifications. Upper abdomen: Reflux of contrast into the hepatic veins. Small volume ascites. Low-density lesion in the left hepatic lobe, likely benign. Cholecystectomy. Bones: No acute abnormality. IMPRESSION: Negative for pulmonary embolism. Pulmonary edema with small pleural effusion. There are some nonspecific airspace opacities that may represent alveolar edema, but pneumonia difficult to entirely exclude. Reason for Exam: follow up CHF/COPD EXAM DESCRIPTION: RAD - Chest Single View - 05/11/2021 4:58 am CLINICAL HISTORY: follow up CHF/COPD Chest pain. COMPARISON: Chest Single View dated 05/10/2021; Chest Single View dated 0; Chest Single View dated 07/17/2019; Chest Single View dated 06/20/2019 FINDINGS: Portable technique limits examination quality. Mild interstitial pulmonary edema appears similar in severity relative to comparative study. The heart is moderately enlarged with dual lead pacer device present. No displaced fractures. IMPRESSION: Stable findings of mild to moderate CHF suspected. EXAM DESCRIPTION: RAD - Chest Single View - 05/12/2021 4:54 am CLINICAL HISTORY: Follow up CHF/COPD Chest pain. COMPARISON: Chest Single View dated 05/11/2021; Chest Single View dated 05/10/2021; Chest Single View dated 11/05/2019; Chest Single View dated 07/17/2019 FINDINGS: Portable technique limits examination quality. Bilateral pulmonary opacities have mildly worsened particularly on the right since the comparative study. The heart is moderately enlarged in size. Multilead pacer device is present.Aortic atherosclerosis. IMPRESSION: Mild worsening in bilateral pulmonary opacities since comparative study. Echocardiogram MILD TRICUSPID REGURGITATION. SEVERE PULMONARY HYPERTENSION. LEFT VENTRICULAR HYPERTENSION. DIASTOLIC DYSFUNCTION. AORTIC SCLEROSIS. NORMAL EJECTION FRACTION. Conclusions/Impression: FREDO likely CRS CKD III with proteinuria -No NSAIDs Acute hypoxic hypercapnic respiratory failure Respiratory Acidosis with compensated metabolic alkalosis -Continue Bipap -Continue Diamox 500mg BID -Hold furosemide HTN with CKD/ CHF -Continue Coreg Diastolic CHF, A/C -Continue diuresis DM II with CKD -RISS
[2021-05-13] MEDS: HOME MED 1 EA UNK OPTH SCH (21:00)
[2021-05-13] MEDS: predniSONE 20 MG TAB PO SCH (22:12)
[2021-05-13] MEDS: FENOFIBRATE 160 MG TAB PO SCH (22:12)
[2021-05-13] MEDS: SERTRALINE HCL 50 MG TAB PO SCH (22:14)
[2021-05-14] MEDS: IPRATROPIUM BROM 0.5MG/2.5ML NEB SCH ×4 (02:00→21:25)
--- NOTE | 2021-05-14 06:03 | P.PN ---
Subjective Date of Service: 05/14/21 Chief Complaint: CHF exacerbation Subjective: Improving Physical Examination - Vital Signs Temperature: 97.5 F Blood Pressure: 112/65 Pulse: 63 Respirations: 19 Pulse Ox (%): 94 Assessment & Plan Discharge Plan: Other (Long-term acute care facility) Plan to discharge in: 48 Hours Physician Review Additional Text: COVID: Negative CT head: COMPARISON: Head Brain Wo Cont dated 03/09/2019 TECHNIQUE: All CT scans are performed using dose optimization technique as appropriate and may include automated exposure control or mA/KV adjustment according to patient size. FINDINGS: No intracranial hemorrhage, hydrocephalus or extra-axial fluid collection.No areas of brain edema or evidence of midline shift. Cerebral atrophy with chronic small vessel ischemic changes The paranasal sinuses and mastoids are clear. The calvarium is intact. IMPRESSION: No acute intracranial abnormality. CT chest: COMPARISON: Chest For Pe Angio dated 11/06/2019; Chest Abd Pelvis Wo Con dated 10/19/2019; Thorax Wo Con dated 10/22/2018; Chest For Pe Angio dated 10/10/2017; Chest Single View dated 05/10/2021 FINDINGS: Chest Wall: No suspicious thyroid nodules or pathologic lymphadenopathy. Left upper chest wall pacemaker. Lungs: Interlobular septal thickening is present bilaterally. Emphysema noted. There are a few other nonspecific pulmonary opacities. Pleura: Small bilateral effusions. Mediastinum/susan: No pathologic lymphadenopathy. Pulmonary arteries/Aorta: No filling defect identified. No aortic aneurysm. Enlarged main pulmonary arteries. Heart: No significant pericardial effusion. Cardiomegaly. Coronary artery calcifications. Upper abdomen: Reflux of contrast into the hepatic veins. Small volume ascites. Low-density lesion in the left hepatic lobe, likely benign. Cholecystectomy. Bones: No acute abnormality. IMPRESSION: Negative for pulmonary embolism. Pulmonary edema with small pleural effusion. There are some nonspecific airspace opacities that may represent alveolar edema, but pneumonia difficult to entirely exclude. CXR: COMPARISON: Chest Single View dated 05/10/2021; Chest Single View dated 11/05/2019; Chest Single View dated 07/17/2019; Chest Single View dated 06/20/2019 FINDINGS: Portable technique limits examination quality. Mild interstitial pulmonary edema appears similar in severity relative to comparative study. The heart is moderately enlarged with dual lead pacer device present. No displaced fractures. IMPRESSION: Stable findings of mild to moderate CHF suspected. Follow up CXR: COMPARISON: May 12 FINDINGS: Bilateral pulmonary opacities have partially resolved Heart remains enlarged. Pacemaker leads in place IMPRESSION: Improvement in CHF ECHO: MEASUREMENTS (cm) DIASTOLIC (NORMALS) SYSTOLIC (NORMALS) IVSd 1.6 (0.6-1.2) LA Diam 4.4 (1.9-4.0) LVEF 78% LVIDd 3.5 (3.5-5.7) LVIDs 1.9 (2.0-3.5) %FS 46% LVPWd 1.5 (0.6-1.2) Ao Diam 2.7 (2.0-3.7) 2 DIMENSIONAL ASSESSMENT: RIGHT ATRIUM: NORMAL LEFT ATRIUM: DILATED RIGHT VENTRICLE: NORMAL LEFT VENTRICLE: LEFT VENTRICULAR HYPERTROPHY TRICUSPID VALVE: NORMAL MITRAL VALVE: NORMAL PULMONIC VALVE: NORMAL AORTIC VALVE: SCLEROSIS PERICARDIAL EFFUSION: NONE AORTIC ROOT: NORMAL LEFT VENTRICULAR WALL MOTION: NORMAL EJECTION FRACTION. MILD TRICUSPID REGURGITATION. RIGHT VENTRICULAR SYSTOLIC PRESSURE 58 mmHg. DOPPLER/COLOR FLOW: COMMENTS: MILD TRICUSPID REGURGITATION. SEVERE PULMONARY HYPERTENSION. LEFT VENTRICULAR HYPERTENSION. DIASTOLIC DYSFUNCTION. AORTIC SCLEROSIS. NORMAL EJECTION FRACTION. Modified Barium Study: COMPARISON: Abdomen Pelvis Wo Contrast dated 03/31/2021 TECHNIQUE: The patient was given liquid, semi-solid and solid forms of barium. Lateral view fluoroscopic imaging was performed in conjunction with speech pathology service. FINDINGS: Laryngeal penetration: Cleared with thin, nectar, and honey not cleared with thin with tablet, thin when fatigued at end of study. Aspiration: With thin when fatigued at end of study. Pt did cough. Reported 6/10 pain during study, possibly due to pharyngeal wall mass / irritation at C3. Physical Exam: General: Alert, In no apparent distress, Oriented x3, Acute distress HEENT: Atraumatic, PERRLA, Mucous membr. moist/pink, EOMI, Sclerae nonicteric Neck: Supple, 2+ carotid pulse no bruit, No LAD, Without JVD or thyroid abnormality Respiratory: Better air movement. Currently on 3 L per nasal cannula. Cardiovascular: Regular rate/rhythm, Normal S1 S2, Edema Capillary refill: <2 Seconds Gastrointestinal: Normal bowel sounds, Soft and benign, No tenderness Musculoskeletal: No clubbing, No tenderness, Swelling Integumentary: No rashes, No breakdown Neurological: Normal gait, Normal speech, Normal tone, Normal affect Lymphatics: No axilla or inguinal lymphadenopathy Impression: Acute on chronic diastolic CHF with acute respiratory failure complicated with end-stage COPD, severe pulmonary hypertension Elevated Troponin suspect ischemic demand with history of CAD Acute on chronic renal failure stage III Paroxymsmal A fib with pacemaker HTN Hypothyroidism Depression Chronic pain Hyperlipidemia Dysphagia GERD Plan: Acute on chronic diastolic CHF with acute respiratory failure complicated with end-stage COPD, severe pulmonary hypertension: Patient continues to improve. Patient on nasal cannula. Will continue with BiPAP as needed. NIV to be ordered. Will need to check to see if this will be utilized at the custodial. Continue with Diamox. Continue with COPD treatment. Patient with end- stage COPD. Continue prednisone, Levaquin. Speech evaluated patient. Continue with speech recommendations. Dietary to address daily needs. Physical therapy to evaluate and assess. Awaiting approval for long-term acute care facility. Elevated Troponin suspect ischemic demand with history of CAD: Medications adjusted. Continue carvedilol. Continue Diamox. Cardiology plans for no intervention at this time. Acute on chronic renal failure stage III: Continue Diamox. Continue with nephrology recommendations Paroxymsmal A fib with pacemaker: Continue carvedilol. Patient on heparin for DVT prophylaxis. HTN: Continue with medication carvedilol. Will monitor and adjust appropriately. Hypothyroidism: Continue with medication levothyroxine Depression: Continue medication Zoloft Chronic pain: Continue gabapentin Hyperlipidemia: Continue with TriCor Dysphagia: Evaluated patient. Patient with moderate esophageal dysphagia. Mechanical soft with ground meats and nectar thick liquids with crushed meds in pudding recommended. Patient with possible abnormal pharyngeal wall mass/irritation at C3. Will continue with nystatin. Patient may have ENT evaluation as an outpatient. GERD: Will provide medication. Advance care [id number] minutes: Patient remains DO NOT RESUSCITATE. Case discussed at length with son. Awaiting approval for long-term acute care facility placement CODE STATUS: Patient remains DO NOT RESUSCITATE DVT prophylaxis: Heparin Time Spent Managing Pts Care (In Minutes): 55
[2021-05-14 06:35] LABS: Absolute Lymphocytes (CBC) 0.6 K/uL (0.7-4.9); Basophils % 0.2 % (0-1.3); Hematocrit 43.1 % (36.0-45.0); Lymphocytes % 10.2 % (15.3-44.8); RBC Red Blood Cell Count 4.52 M/uL (3.86-4.86)
[2021-05-14 06:50] LABS: Albumin 2.9 g/dL (3.4-5.0); Bilirubin Total 0.7 mg/dL (0.2-1.0); Magnesium 2.7 mg/dL (1.8-2.4); Potassium 3.8 mmol/L (3.5-5.1); Protein, Total 6.7 g/dL (6.4-8.2)
[2021-05-14] MEDS: INSULIN -REGULAR HUMAN 50 UNIT/0.5 ML ML SQ SCH ×4 (07:30→21:00)
[2021-05-14] MEDS: NYSTATIN 500,000 UNIT/5 ML UDC PO SCH ×4 (09:00→21:25)
[2021-05-14] MEDS ORDERED: POTASSIUM CL SA 10 MEQ TAB PO ONE (09:00)
[2021-05-14] MEDS: FAMOTIDINE 20 MG TAB PO SCH (10:26)
[2021-05-14] MEDS: ASPIRIN 81 MG CHEWABLE TABLET PO SCH (10:26)
[2021-05-14] MEDS: acetaZOLAMIDE 250 MG TAB PO SCH ×2 (10:26→21:24)
[2021-05-14] MEDS: LEVOTHYROXINE SOD 0.125 MG TAB PO SCH (10:26)
[2021-05-14] MEDS: carvediloL 6.25 MG TAB PO SCH ×2 (10:26→21:25)
[2021-05-14] MEDS: levoFLOXacin 750 MG TAB PO SCH (10:27)
[2021-05-14] MEDS: GABAPENTIN 300 MG CAP PO SCH ×2 (10:27→21:25)
[2021-05-14] MEDS: ENOXAPARIN 40 MG/0.4 ML SQ SCH (10:27)
[2021-05-14] MEDS: predniSONE 20 MG TAB PO SCH ×2 (10:27→21:25)
[2021-05-14] MEDS: ARFORMOTEROL TARTRATE 15 MCG/2 ML VIAL.NEB IH SCH ×2 (10:29→21:25)
--- NOTE | 2021-05-14 11:29 | PN ---
Date of Progress Note: 05/12/2021 Subjective: Ms. Arceo has severe pulmonary hypertension on her echocardiogram with a normal ejection fraction. She had severe COPD exacerbation. She had a paced rhythm. O2 saturation on CPAP, BiPAP w as 94%. She is on Diamox instead of Lasix. She is on carvedilol. She is on antibiotic. She is on steroid. Her blood pressure was 117/70, remains in a paced rhythm, slightly improving. She is a Do Not Resuscitate. I agree with her present regimen. Her creatinine remains stable at 1.06. No new b lood gases for today. We will continue her present regimen. I will be available for questions if th e need arises. No changes in cardiac therapy at this point. NADIYA/ESTEFANIA Voice ID: [id number] Report ID: [id number]
--- NOTE | 2021-05-14 11:50 | PN ---
Subjective: The patient is seen in room 210 at [facility]. The patie nt is alert, awake. She states her breathing is feeling a whole lot better. She states that she has had discolored toes for a long time, has been evaluated by Cardiology for this. She states that thi s is nothing new. She states that her breathing was the main reason why she came to the hospital and this is significantly improved now. She is still requiring oxygen. The patient states that also be fore coming to the hospital, she had been on oxygen. The patient's lungs seem clear with decreased b reath sounds bilaterally and decreased breath sounds at the bases. Objective: Abdomen: Slightly distended but soft. Vital Signs: The patient's vitals are stable. Blood pressure 128/68, before that 112/65, pulse 72, respirations around 14-16. She is afebrile, O2 sats are 96%. She is on 2 L nasal cannula. Lungs: Clear to auscultation with decreased breath sounds bilaterally and specifically at the bases. Abdomen: Soft, slightly distended. Bowel sounds are positive. Extremities: Do reveal discoloration of her toes and feet with bluish discoloration. The patient st ates this is a chronic issue for her and nothing new. The patient had been taking some p.o. intake n ow. She states that she is feeling a little bit better and able to drink a little bit better, but st ill not back to her baseline completely. Laboratory Data: Reviewed. Labs show WBC of 5.6, hemoglobin 13.5, hematocrit 43.1, platelet count o f 217. Chemistry shows sodium 144, potassium 3.8, chloride 99, bicarb 43, BUN 47, creatinine 0.99. Assessment And Plan: The patient with significant respiratory failure with alkalosis with chronic or respiratory issues in the setting of hypoxic hypercapnic respiratory failure, history of acidosis wi th compensated metabolic alkalosis. The patient has been on CPAP, has been tolerating well on Diamox right now, which will assist with the contraction alkalosis and also getting her bicarb in some reas onable range. The patient is off furosemide, is improving her p.o. intake slightly and feeling yashira r. Her breathing is improved, FREDO is stabilizing. Continue with current plan. Continue on Coreg. Continue on Diamox. Continue BiPAP. Fall precautions and oxygen to keep O2 sats above 92%. Continu e CPAP. /ESTEFANIA Voice ID: [id number] Report ID: [id number]
[2021-05-14] MEDS ORDERED: POTASSIUM 25 MEQ EFFERV TAB PO ONE (12:15)
--- NOTE | 2021-05-14 12:41 | CON ---
Date of Consultation: 05/11/2021 Reason For Consultation: Congestive heart failure and COPD exacerbation. History Of Present Illness: Ms. Arceo is an 85-year-old woman. She is very well known to me from off ice visits, previous hospital admission, has a very complicated past medical history including atrial fibrillation, coronary artery disease, congestive heart failure, chronic renal failure, DVTs of the right arm, COPD, depression, diabetes, gastroesophageal reflux disease, hypertension, dyslipidemia, h ypothyroidism, sleep apnea, obesity, and neuropathy. Came in with shortness of breath with minimal a ctivities, has been coughing with flu-like symptoms and arthralgia. Denied any fever, cough, or chil ls. Denied any chest pain. Denied any nausea, vomiting, diaphoresis, PND, orthopnea, pedal edema, p alpitation, or syncope. Past Medical History: As stated above. Allergies: INCLUDE TICLID, SULFA, MORPHINE, SIMVASTATIN, AND ATENOLOL. Review of Systems: Negative. Social History: Negative. Family History: Negative. Medications: At home include Zoloft, aspirin, carvedilol, fenofibrate, furosemide, gabapentin, and f amotidine. Physical Examination: Vital Signs: Her blood pressure when I saw her was 111/56, respiratory rate was 22. She was afebril e. O2 saturation was 100%. She was in a paced rhythm. HEENT: Negative. Neck: Supple without any bruit, lymphadenopathy, JVD, or thyromegaly. Chest: Revealed bibasilar rales with diffuse expiratory wheezing. Cardiac: Revealed a regular rhythm and rate with an S4 gallops. No murmurs or rubs. Abdomen: Obese, but benign. Extremities: Revealed no clubbing, cyanosis. She had 1+ edema. Diagnostic Data: She had a 94% saturation, on CPAP BiPAP. Her pO2 was 66, pCO2 was 90 with a pH of 7.32. Her chest x-ray showed congestive heart failure. Creatinine was 1.060. Hemoglobin was 13 wit h a white count of 6000. Her CO2 level was 44. Her glucose was 217. BNP was 9939. AST was 73. He r ALT was normal. Impression And Plan: 1.Acute on chronic diastolic congestive heart failure. 2.Acute on chronic obstructive pulmonary disease exacerbation. 3.The patient is a do not resuscitate now. 4.History of coronary artery disease, status post stent. 5.History of pacemaker placement. 6.History of atrial fibrillation. 7.Chronic renal failure is improved. 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 9.Depression. 10.Hypertension, well controlled. 11.Dyslipidemia. 12.Hypothyroidism. 13.Neuropathy. 14.Sleep apnea. Consultations were obtained by Dr. Sow, who feels that the patient at terminal chronic obstructi ve pulmonary disease with exacerbation, possible pneumonia at the right base, elevated bicarbonate. Lasix was stopped. Diamox was started. She is now on Levaquin. Echocardiogram which was done showe d a normal ejection fraction with possible diastolic congestive heart failure. The patient was seen by Nephrology as well. I agree with her present regimen. She is on aspirin. She is on inhaler. Benjamin morataya is on Lovenox. She is on Diamox now. She is on insulin, thyroid. She is on antibiotics. She is on steroid. We will continue her carvedilol and continue her prednisone. Echocardiogram, which was repeated basically showed a perfectly normal ejection fraction. I agree with her present regimen. I will continue to follow her. No plan for any coronary intervention at this point. NADIYA/ESTEFANIA Voice ID: [id number] Report ID: [id number]
[2021-05-14] MEDS: ENSURE PUDDING 4 OZ CUP PO SCH (21:00)
[2021-05-14] MEDS: HOME MED 1 EA UNK OPTH SCH (21:00)
[2021-05-14] MEDS: SERTRALINE HCL 50 MG TAB PO SCH (21:25)
[2021-05-14] MEDS: FENOFIBRATE 160 MG TAB PO SCH (21:25)
[2021-05-15] MEDS: IPRATROPIUM BROM 0.5MG/2.5ML NEB SCH ×4 (02:39→21:30)
--- NOTE | 2021-05-15 06:00 | P.PN ---
Subjective Date of Service: 05/15/21 Chief Complaint: CHF exacerbation Subjective: Improving (Overall stable. Currently on nasal cannula.) Physical Examination - Vital Signs Temperature: 97.5 F Blood Pressure: 121/61 Pulse: 63 Respirations: 14 Pulse Ox (%): 95 Assessment & Plan Discharge Plan: LTAC Plan to discharge in: 24 Hours Physician Review Additional Text: COVID: Negative CT head: COMPARISON: Head Brain Wo Cont dated 03/09/2019 TECHNIQUE: All CT scans are performed using dose optimization technique as appropriate and may include automated exposure control or mA/KV adjustment according to patient size. FINDINGS: No intracranial hemorrhage, hydrocephalus or extra-axial fluid collection.No areas of brain edema or evidence of midline shift. Cerebral atrophy with chronic small vessel ischemic changes The paranasal sinuses and mastoids are clear. The calvarium is intact. IMPRESSION: No acute intracranial abnormality. CT chest: COMPARISON: Chest For Pe Angio dated 11/06/2019; Chest Abd Pelvis Wo Con dated 10/19/2019; Thorax Wo Con dated 10/22/2018; Chest For Pe Angio dated 10/10/2017; Chest Single View dated 05/10/2021 FINDINGS: Chest Wall: No suspicious thyroid nodules or pathologic lymphadenopathy. Left upper chest wall pacemaker. Lungs: Interlobular septal thickening is present bilaterally. Emphysema noted. There are a few other nonspecific pulmonary opacities. Pleura: Small bilateral effusions. Mediastinum/susan: No pathologic lymphadenopathy. Pulmonary arteries/Aorta: No filling defect identified. No aortic aneurysm. Enlarged main pulmonary arteries. Heart: No significant pericardial effusion. Cardiomegaly. Coronary artery calcifications. Upper abdomen: Reflux of contrast into the hepatic veins. Small volume ascites. Low-density lesion in the left hepatic lobe, likely benign. Cholecystectomy. Bones: No acute abnormality. IMPRESSION: Negative for pulmonary embolism. Pulmonary edema with small pleural effusion. There are some nonspecific airspace opacities that may represent alveolar edema, but pneumonia difficult to entirely exclude. CXR: COMPARISON: Chest Single View dated 05/10/2021; Chest Single View dated 11/05/2019; Chest Single View dated 07/17/2019; Chest Single View dated 06/20/2019 FINDINGS: Portable technique limits examination quality. Mild interstitial pulmonary edema appears similar in severity relative to comparative study. The heart is moderately enlarged with dual lead pacer device present. No displaced fractures. IMPRESSION: Stable findings of mild to moderate CHF suspected. Follow up CXR: COMPARISON: May 12 FINDINGS: Bilateral pulmonary opacities have partially resolved Heart remains enlarged. Pacemaker leads in place IMPRESSION: Improvement in CHF ECHO: MEASUREMENTS (cm) DIASTOLIC (NORMALS) SYSTOLIC (NORMALS) IVSd 1.6 (0.6-1.2) LA Diam 4.4 (1.9-4.0) LVEF 78% LVIDd 3.5 (3.5-5.7) LVIDs 1.9 (2.0-3.5) %FS 46% LVPWd 1.5 (0.6-1.2) Ao Diam 2.7 (2.0-3.7) 2 DIMENSIONAL ASSESSMENT: RIGHT ATRIUM: NORMAL LEFT ATRIUM: DILATED RIGHT VENTRICLE: NORMAL LEFT VENTRICLE: LEFT VENTRICULAR HYPERTROPHY TRICUSPID VALVE: NORMAL MITRAL VALVE: NORMAL PULMONIC VALVE: NORMAL AORTIC VALVE: SCLEROSIS PERICARDIAL EFFUSION: NONE AORTIC ROOT: NORMAL LEFT VENTRICULAR WALL MOTION: NORMAL EJECTION FRACTION. MILD TRICUSPID REGURGITATION. RIGHT VENTRICULAR SYSTOLIC PRESSURE 58 mmHg. DOPPLER/COLOR FLOW: COMMENTS: MILD TRICUSPID REGURGITATION. SEVERE PULMONARY HYPERTENSION. LEFT VENTRICULAR HYPERTENSION. DIASTOLIC DYSFUNCTION. AORTIC SCLEROSIS. NORMAL EJECTION FRACTION. Modified Barium Study: COMPARISON: Abdomen Pelvis Wo Contrast dated 03/31/2021 TECHNIQUE: The patient was given liquid, semi-solid and solid forms of barium. Lateral view fluoroscopic imaging was performed in conjunction with speech pathology service. FINDINGS: Laryngeal penetration: Cleared with thin, nectar, and honey not cleared with thin with tablet, thin when fatigued at end of study. Aspiration: With thin when fatigued at end of study. Pt did cough. Reported 6/10 pain during study, possibly due to pharyngeal wall mass / irritation at C3. Physical Exam: General: Alert, In no apparent distress, Oriented x3, Acute distress HEENT: Atraumatic, PERRLA, Mucous membr. moist/pink, EOMI, Sclerae nonicteric Neck: Supple, 2+ carotid pulse no bruit, No LAD, Without JVD or thyroid abnormality Respiratory: Better air movement. Currently on 3 L per nasal cannula. Cardiovascular: Regular rate/rhythm, Normal S1 S2, Edema Capillary refill: <2 Seconds Gastrointestinal: Normal bowel sounds, Soft and benign, No tenderness Musculoskeletal: No clubbing, No tenderness, Swelling Integumentary: No rashes, No breakdown Neurological: Normal gait, Normal speech, Normal tone, Normal affect Lymphatics: No axilla or inguinal lymphadenopathy Impression: Acute on chronic diastolic CHF with acute respiratory failure complicated with end-stage COPD, severe pulmonary hypertension Elevated Troponin suspect ischemic demand with history of CAD Acute on chronic renal failure stage III Paroxymsmal A fib with pacemaker HTN Hypothyroidism Depression Chronic pain Hyperlipidemia Dysphagia GERD Plan: Acute on chronic diastolic CHF with acute respiratory failure complicated with end-stage COPD, severe pulmonary hypertension: Patient continues to improve. Patient on nasal cannula. Will continue with BiPAP as needed. NIV to be ordered. Will need to check to see if this will be utilized at the snf. Continue with Diamox. Continue with COPD treatment. Patient with end- stage COPD. Continue prednisone, Levaquin. Speech evaluated patient. Continue with speech recommendations. Dietary to address daily needs. Physical therapy to evaluate and assess. Awaiting approval for long-term [facility] care facility. I will turn the service over to the hospitalist team. I will go over the plan of care. Elevated Troponin suspect ischemic demand with history of CAD: Medications adjusted. Continue carvedilol. Continue Diamox. Cardiology plans for no intervention at this time. Acute on chronic renal failure stage III: Continue Diamox. Continue with nephrology recommendations Paroxymsmal A fib with pacemaker: Continue carvedilol. Patient on heparin for DVT prophylaxis. HTN: Continue with medication carvedilol. Will monitor and adjust appropriately. Hypothyroidism: Continue with medication levothyroxine Depression: Continue medication Zoloft Chronic pain: Continue gabapentin Hyperlipidemia: Continue with TriCor Dysphagia: Evaluated patient. Patient with moderate esophageal dysphagia. Mechanical soft with ground meats and nectar thick liquids with crushed meds in pudding recommended. Patient with possible abnormal pharyngeal wall mass/irritation at C3. Will continue with nystatin. Patient may have ENT evaluation as an outpatient. GERD: Will provide medication. Advance care [id number] minutes: Patient remains DO NOT RESUSCITATE. Case discussed at length with son. Awaiting approval for long-term acute care facility placement CODE STATUS: Patient remains DO NOT RESUSCITATE DVT prophylaxis: Heparin Time Spent Managing Pts Care (In Minutes): 55
[2021-05-15 06:45] LABS: Magnesium 2.5 mg/dL (1.8-2.4); Potassium 4.2 mmol/L (3.5-5.1)
[2021-05-15 07:30] LABS: Absolute Lymphocytes (CBC) 0.6 K/uL (0.7-4.9); Basophils % 0.6 % (0-1.3); Hematocrit 42.1 % (36.0-45.0); Lymphocytes % 13.1 % (15.3-44.8); MPV 10.7 fL (7.6-11.3); RBC Red Blood Cell Count 4.36 M/uL (3.86-4.86)
[2021-05-15] MEDS: INSULIN -REGULAR HUMAN 50 UNIT/0.5 ML ML SQ SCH ×4 (07:30→21:00)
--- NOTE | 2021-05-15 07:35 | RAD REPORT ---
EXAM DESCRIPTION: RAD - Chest Single View - 05/15/2021 6:53 am CLINICAL HISTORY: follow up CHF/COPD COMPARISON: Chest Single View dated 05/13/2021; Chest Single View dated 05/12/2021; Chest Single View da giovanny 05/11/2021; Chest Single View dated 05/10/2021 FINDINGS: No evidence of edema or pneumonia. Cardiomegaly. Pacemaker.No acute osseous abnormality. T here is some blunting of the costophrenic angles. IMPRESSION: Mild congestive heart failure which is similar to 05/13/2021.
[2021-05-15] MEDS: NYSTATIN 500,000 UNIT/5 ML UDC PO SCH ×3 (09:00→21:00)
[2021-05-15] MEDS: ARFORMOTEROL TARTRATE 15 MCG/2 ML VIAL.NEB IH SCH ×3 (09:00→21:30)
[2021-05-15] MEDS: ENSURE PUDDING 4 OZ CUP PO SCH ×2 (09:00→21:00)
[2021-05-15] MEDS: FAMOTIDINE 20 MG TAB PO SCH (10:14)
[2021-05-15] MEDS: predniSONE 20 MG TAB PO SCH ×2 (10:14→21:31)
[2021-05-15] MEDS: GABAPENTIN 300 MG CAP PO SCH ×2 (10:14→21:31)
[2021-05-15] MEDS: LEVOTHYROXINE SOD 0.125 MG TAB PO SCH (10:14)
[2021-05-15] MEDS: ASPIRIN 81 MG CHEWABLE TABLET PO SCH (10:14)
[2021-05-15] MEDS: acetaZOLAMIDE 250 MG TAB PO SCH ×2 (10:15→21:31)
[2021-05-15] MEDS: carvediloL 6.25 MG TAB PO SCH ×2 (10:15→21:31)
[2021-05-15] MEDS: ENOXAPARIN 40 MG/0.4 ML SQ SCH (10:16)
[2021-05-15 11:05] LABS: White Blood Cell Scan OK (OK)
[2021-05-15 11:06] LABS: Blood Morphology Comment NOT SEEN (NOT SEEN); Platelet Estimate DECR
[2021-05-15] MEDS: HOME MED 1 EA UNK OPTH SCH (21:00)
[2021-05-15] MEDS: SERTRALINE HCL 50 MG TAB PO SCH (21:31)
[2021-05-15] MEDS: FENOFIBRATE 160 MG TAB PO SCH (21:32)
[2021-05-16] MEDS: IPRATROPIUM BROM 0.5MG/2.5ML NEB SCH ×4 (01:13→19:40)
[2021-05-16 06:32] LABS: Absolute Lymphocytes (CBC) 0.4 K/uL (0.7-4.9); Basophils % 0.2 % (0-1.3); Lymphocytes % 9.9 % (15.3-44.8); RBC Red Blood Cell Count 4.56 M/uL (3.86-4.86)
[2021-05-16 06:56] LABS: Magnesium 2.5 mg/dL (1.8-2.4); Potassium 3.8 mmol/L (3.5-5.1)
[2021-05-16] MEDS: INSULIN -REGULAR HUMAN 50 UNIT/0.5 ML ML SQ SCH ×4 (07:30→20:23)
[2021-05-16] MEDS ORDERED: POTASSIUM CL SA 10 MEQ TAB PO ONE ×2 (09:00→09:11)
[2021-05-16] MEDS: NYSTATIN 500,000 UNIT/5 ML UDC PO SCH ×3 (09:00→20:22)
[2021-05-16] MEDS: ENOXAPARIN 40 MG/0.4 ML SQ SCH (09:00)
[2021-05-16] MEDS: GABAPENTIN 300 MG CAP PO SCH ×2 (09:08→20:18)
[2021-05-16] MEDS: ASPIRIN 81 MG CHEWABLE TABLET PO SCH (09:09)
[2021-05-16] MEDS: acetaZOLAMIDE 250 MG TAB PO SCH ×2 (09:09→20:17)
[2021-05-16] MEDS: carvediloL 6.25 MG TAB PO SCH ×2 (09:09→20:18)
[2021-05-16] MEDS: LEVOTHYROXINE SOD 0.125 MG TAB PO SCH (09:09)
[2021-05-16] MEDS: FAMOTIDINE 20 MG TAB PO SCH (09:10)
[2021-05-16] MEDS: predniSONE 20 MG TAB PO SCH ×2 (09:10→20:18)
[2021-05-16] MEDS: ENSURE PUDDING 4 OZ CUP PO SCH ×2 (09:11→20:22)
[2021-05-16] MEDS: levoFLOXacin 750 MG TAB PO SCH (09:13)
[2021-05-16] MEDS: ARFORMOTEROL TARTRATE 15 MCG/2 ML VIAL.NEB IH SCH ×2 (09:57→19:40)
[2021-05-16] MEDS ORDERED: ALBUTEROL 2.5 MG/3 ML NEB SOL NEB PRN (17:00)
--- NOTE | 2021-05-16 17:19 | PN ---
Subjective: The patient is seen in Room 210 at [facility]. She is alert, awake, but unable to talk much as she has a BiPAP on. She has been having desaturations with her oxygen, h as been requiring BiPAP support. She has significant respiratory failure with end-stage COPD. She s eems to be in good volume control status. Has been eating and drinking, and her creatinine is lookin g improved at creatinine 1.07. Her sodium and potassium are also reasonable at 143 and 3.8. Her WBC count is 3.7. Her hemoglobin is stable at 13.5. The patient is overall looking reasonably well fro m the kidney point of view; however, her respiratory status is quite compromised with significant res piratory distress, wheezing, and currently the patient is on BiPAP. She has diastolic CHF, but curre ntly her volume status seems to be close to euvolemic. Objective: Vital Signs: On evaluation of her vitals, the patient is currently on BiPAP. Her blood pressure is reasonable with readings in 117-130 range for systolic. Her last blood pressure was 130/ 65. Currently, blood pressure is around 117/56. O2 sats are around 96%. The patient has been requi ring BiPAP and has also been required oxygenation with 3-4 L with nasal cannula. Lungs: Her lungs reveal decreased breath sounds with bilateral wheezing. Abdomen: Soft. Extremities: Reveal trace edema. Heart: Sounds are regular. Laboratory Data: Reviewed. Labs show WBC count of 3.7, hemoglobin 13.5, hematocrit 44, platelet cou nt of 160. Chemistry shows sodium 143, potassium 3.8, chloride 99, bicarb is 43, BUN 54, creatinine 1.07, magnesium level 2.5, calcium level 9.1. Assessment And Plan: The patient is an 85-year-old female with significant respiratory failure, most likely secondary to emphysema and chronic obstructive pulmonary disease, now with alkalosis with chr onic respiratory issues, hypoxic hypercapnic, compensated metabolic alkalosis with history of metabol ic acidosis, compensated metabolic alkalosis. The patient at this point is on Diamox. Her condition continues to be frail. Her volume status is close to euvolemic. Continue Diamox at current dose an d monitor with oxygen support to keep O2 sats above 92%. The patient is going to likely need rehabil itation to improve her current condition. /ESTEFANIA Voice ID: [id number] Report ID: [id number]
--- NOTE | 2021-05-16 17:29 | P.PN ---
Subjective Date of Service: 05/16/21 Chief Complaint: CHF exacerbation Subjective: No new changes, Improving Review of Systems General: Weakness Eyes: Unremarkable ENT: Unremarkable Respiratory: Shortness of Breath, SOB with Excertion Cardiovascular: Unremarkable Gastrointestinal: Unremarkable Genitourinary: Unremarkable Musculoskeletal: Unremarkable Integumentary: Unremarkable Neurological: Unremarkable Lymphatics: Unremarkable Physical Examination - Vital Signs Temperature: 97.1 F Blood Pressure: 122/58 Pulse: 67 Respirations: 18 Pulse Ox (%): 99 - Physical Exam General: Alert, Oriented x3, Mild distress HEENT: Atraumatic, PERRLA, EOMI Neck: Supple, JVD not distended Respiratory: Clear to auscultation bilaterally, Normal air movement Cardiovascular: Regular rate/rhythm, Normal S1 S2 Capillary refill: <2 Seconds Gastrointestinal: Normal bowel sounds, No tenderness Musculoskeletal: No tenderness Integumentary: No rashes Neurological: Normal speech, Normal tone, Normal affect Lymphatics: No axilla or inguinal lymphadenopathy External genitalia: Deferred Rectal: Deferred Assessment And Plan - Plan Acute on chronic diastolic CHF with acute respiratory failure complicated with end-stage COPD, severe pulmonary hypertension: Patient continues to improve. Patient on nasal cannula. Will continue with BiPAP as needed. NIV to be ordered. Will need to check to see if this will be utilized at the half-way. Continue with Diamox. Continue with COPD treatment. Patient with end- stage COPD. Continue prednisone, Levaquin. Speech evaluated patient. Continue with speech recommendations. Dietary to address daily needs. Physical therapy to evaluate and assess. Per social service, approved for LTAC . Awaiting bed at facility Elevated Troponin suspect ischemic demand with history of CAD: Medications adjusted. Continue carvedilol. Continue Diamox. Cardiology plans for no intervention at this time. Acute on chronic renal failure stage III: Continue Diamox. Continue with nephrology recommendations Paroxymsmal A fib with pacemaker: Continue carvedilol. Patient on heparin for DVT prophylaxis. HTN: Continue with medication carvedilol. Will monitor and adjust appropriately. Hypothyroidism: Continue with medication levothyroxine Depression: Continue medication Zoloft Chronic pain: Continue gabapentin Hyperlipidemia: Continue with TriCor Dysphagia: Evaluated patient. Patient with moderate esophageal dysphagia. Me chanical soft with ground meats and nectar thick liquids with crushed meds in pudding recommended. Patient with possible abnormal pharyngeal wall mass/irritation at C3. Will continue with nystatin. Patient may have ENT evaluation as an outpatient. GERD: Will provide home medication. Advance care [id number] minutes: Patient remains DO NOT RESUSCITATE. Case discussed at length with son. Eusebia iting approval for long-term acute care facility placement CODE STATUS: Patient remains DO NOT RESUSCITATE DVT prophylaxis: Heparin Discharge Plan: Other (LTAC) Plan to discharge in: 24 Hours Physician Review: Patient Assessed, Agree with Above Assessment and Plan Critical Care: No
[2021-05-16 17:39] VITALS: O2SAT 99
[2021-05-16] MEDS: FENOFIBRATE 160 MG TAB PO SCH (20:18)
[2021-05-16] MEDS: SERTRALINE HCL 50 MG TAB PO SCH (20:22)
[2021-05-16] MEDS: HOME MED 1 EA UNK OPTH SCH (20:22)
[2021-05-16 20:23] VITALS: BP 132/57
[2021-05-16 21:06] VITALS: TEMP 97.8
== END 2021-05-16 11:02 | DRG 291 ==
LOC: ER 08:20 → ERHOLD 12:25 → 2ND 17:41 → OBSVTOIN 05-11 09:31
PROVIDERS: ADMIT Family Medicine; ATTEND Hospitalist
PROC: 5A09557 Assistance with Respiratory Ventilation, Greater than 96 Consecutive Hours, Continuous Positive Airway Pressure (ICD-10-PCS; principal; 2021-05-10)
DX: I13.0 Hypertensive heart and chronic kidney disease with heart failure and stage 1 through stage 4 chronic kidney disease, or unspecified chronic kidney disease (principal); I50.33 Acute on chronic diastolic (congestive) heart failure; J18.9 Pneumonia, unspecified organism; J96.01 Acute respiratory failure with hypoxia; J96.02 Acute respiratory failure with hypercapnia; N17.9 Acute kidney failure, unspecified; E87.2 Acidosis; J44.0 Chronic obstructive pulmonary disease with (acute) lower respiratory infection; J44.1 Chronic obstructive pulmonary disease with (acute) exacerbation; E87.3 Alkalosis; N18.31 Chronic kidney disease, stage 3a; E11.22 Type 2 diabetes mellitus with diabetic chronic kidney disease; E11.40 Type 2 diabetes mellitus with diabetic neuropathy, unspecified; E03.9 Hypothyroidism, unspecified; I25.10 Atherosclerotic heart disease of native coronary artery without angina pectoris; I48.0 Paroxysmal atrial fibrillation; F32.9 Major depressive disorder, single episode, unspecified; G89.29 Other chronic pain; K21.9 Gastro-esophageal reflux disease without esophagitis; I27.20 Pulmonary hypertension, unspecified; E78.5 Hyperlipidemia, unspecified; G47.30 Sleep apnea, unspecified; R77.8 Other specified abnormalities of plasma proteins; R13.19 Other dysphagia; R79.1 Abnormal coagulation profile; Z66 Do not resuscitate; Z79.890 Hormone replacement therapy; Z79.4 Long term (current) use of insulin; Z88.5 Allergy status to narcotic agent; Z88.1 Allergy status to other antibiotic agents; Z95.0 Presence of cardiac pacemaker; Z88.8 Allergy status to other drugs, medicaments and biological substances; Z79.82 Long term (current) use of aspirin; Z95.5 Presence of coronary angioplasty implant and graft; Z79.899 Other long term (current) drug therapy; Z86.718 Personal history of other venous thrombosis and embolism; Z86.711 Personal history of pulmonary embolism; Z90.710 Acquired absence of both cervix and uterus; Z90.49 Acquired absence of other specified parts of digestive tract; Z20.822 Contact with and (suspected) exposure to COVID-19
CPT/HCPCS: 36415; 51702; 70450; 71045; 71275; 74230; 80048; 80053; 80076; 81001; 81003; 82435; 82570; 82805; 82947; 83735; 83880; 83930; 83935; 84100; 84132; 84300; 84484; 84550; 85025; 85379; 85610; 87040; 87086; 87088; 92611; 93005; 93306; 94640; 94660; 96372; 96374; 96375; 97161; 97165; 97530; 99285; J0456; J0692; J1644; J1650; J1940; J2920; J2930; J7050; J7512; J7605; Q9967; U0003